=== PATIENT | female | born 1955 | race African-American/Black ===

== ENCOUNTER 2017-05-28 19:59 | Emergency (ER) | payer MEDICARE, SELFPAY ==
[2017-05-28 20:00] VITALS: BP 161/78; PULSE 62; RESP 16; TEMP 36.4; O2SAT 98; BMI 32.8
[2017-05-28 21:07] VITALS: BP 141/69; PULSE 61; RESP 19; O2SAT 98
--- NOTE | 2017-05-28 21:15 | EKG12_ITS ---
Test Reason : HTPERTENSION Blood Pressure : / mmHG Vent. Rate : 060 BPM Atrial Rate : 060 BPM P-R Int : 196 ms QRS Dur : 084 ms QT Int : 436 ms P-R-T Axes : 061 072 064 degrees QTc Int : 436 ms Normal sinus rhythm Normal ECG Confirmed by LAUREN SUÁREZ, PANCHITO ([id number]), order editor MELBA SAMANIEGO ([id number]) on 06/01/2017 2:12:03 PM Referred By: IVET Confirmed By:PANCHITO AGUILAR MD
--- NOTE | 2017-05-28 21:19 | ED.DCSUM_ITS ---
- ER Visit Summary Date of Service: 05/28/17 Chief Complaint: Dental pain and high blood pressure History of Present Illness: The patient is a 61 F with history of hypertension who presents for dental pain and hypertension. Patient states she is currently undergoing medication adjustment for her blood pressure, and is supposed to start alternating valsartan HCTZ with valsartan. She is currently on the combination medication. She states she has been having dizziness ever since she has been on the medications and her doctor is having her change the regimen. Today she noted her blood pressure was high. She also has been having 1 month of dental pain and states that she needs to see a dentist. Today her dental pain was more severe and she also had pain in her right arm. Because of this with the high blood pressure she came in for an evaluation concern for her heart. She took 3 baby aspirin prior to presentation. Patient does state she has been having bilateral ear pain and headache along with the dental pain. She denies chest pain or shortness of breath. She denies history of coronary artery disease, diabetes, high cholesterol or kidney disease. She is a former smoker. Physical Examination: Vital signs: afebrile, hemodynamically stable, no hypoxia on room air General: well nourished, well developed, in no distress Skin: warm, dry, no rash, no pallor HEENT: normocephalic and atraumatic; PERRL, EOMI, moist mucous membranes, edentulous on upper jaw, poor dentition on remaining teeth in the lower jaw, oropharynx is clear, neck is supple without any tenderness, TMs are clear Cardiovascular: regular rate and rhythm without murmurs, no peripheral edema, 2 + pulses all distal extremities Respiratory: No increased work of breathing, lungs are clear to auscultation bilaterally, no rales, rhonchi or wheezing Abdominal: Abdomen is soft, nontender with normoactive bowel sounds, no guarding or rebound, no masses MSK: Moves all extremities, no deformities, normal strength Neuro: Awake and alert, oriented ?4. No facial droop, sensation and motor function intact and symmetric Test Results: Abnormal Lab Results 05/28/17 05/28/17 05/28/17 21:20 21:20 23:24 WBC 5.2 RBC 4.20 Hgb 13.2 Hct 39.7 MCV 94.5 MCH 31.4 MCHC 33.2 RDW 12.3 RDW Differential 42.0 Plt Count 174 MPV 8.8 Immature Gran % (Auto) 0.000 Neut % (Auto) 35.1 L Lymph % (Auto) 56.0 H [place] % (Auto) 6.2 Eos % (Auto) 2.3 Baso % (Auto) 0.4 Absolute Neuts (auto) 1.8 L Absolute Lymphs (auto) 2.91 Total Counted Not Reportable Sodium 140 Potassium 3.9 Chloride 104 Carbon Dioxide 29.0 Anion Gap 7 BUN 14 Creatinine 0.84 Estim Creat Clear Calc 82.19 Est GFR (MDRD) Af Amer 89 Est GFR (MDRD) Non-Af 73 BUN/Creatinine Ratio 16.6 Glucose 93 Calcium 8.7 Troponin I 0.02 0.03 Emergency Department Course and Treatment: Discussed blood pressure with patient and that she is doing the right thing in gradually making adjustments with her primary care doctor. Her blood pressure is currently not concerning for hypertensive urgency. Her other complaint of dental pain which worsened today coupled with the right arm pain is concerning for possible atypical chest pain in a female. Thus a chest pain workup was performed. Patient already took aspirin at home. EKG showed sinus rhythm without ischemia or ectopy, unchanged from old 1. Troponin negative. Labs were unremarkable. Patient has a LANA score of 1 and a heart score of 2, and thus an EKG and troponin were repeated and were both unchanged. Because patient has been having the dental pain for several weeks and her pain today is most likely due to her ongoing issues rather than atypical angina from a cardiac issue, patient will be discharged home and no further cardiac workup will be performed at this time. Patient felt much better on evaluation and was given a list of dental clinics in the area. She will also follow-up with her primary care doctor regarding her ongoing hypertension control. Patient was given a prescription for naproxen for further treatment of her dental pain. Patient was discharged home and will return if any further concerns. Treatment Plan: [] Disposition: [] Impression: Established hypertension, odontalgia This note was generated with [employer] software. It may contain incorrect words, spelling, and punctuation that were not noted in review of the chart prior to signing ED Disposition - Plan for ED Patient: Disposition: Home or Assisted Living Chief Complaint: Hypertension Instructions: ED Tooth Pain, ED HTN Established Prescriptions: Naproxen [Naprosyn] 500 mg PO BID PRN #20 tab Referrals: Alaina Tariq MD [Primary Care Provider] - 3-5 Days if not improving Additional Instructions: Please follow-up with 1 of the dental clinics on the paper provided for further evaluation of your teeth. You may use the naproxen for dental pain in the meantime. Please continue your blood pressure medication as prescribed by your primary care doctor. Blood pressure can go up and down during the day, and this is normal. If you have any further concerns about your blood pressure, please see your doctor. You develop any severe chest pain, shortness of breath, lightheadedness or dizziness, or any other concerning symptoms or worsening condition, please come back to the emergency department for another evaluation.
--- NOTE | 2017-05-28 21:20 | RAD_ITS ---
STUDY: X-RAY CHEST REASON FOR EXAM: Female, 61 years old. Chest pressure and hypertension. TECHNIQUE: Single AP portable view of the chest. COMPARISON: 04/30/2017. FINDINGS: The lungs are clear and expanded. There is no demonstrated pleural abnormality. Normal size heart. Normal mediastinum and mary. Normal visualized pulmonary arteries. Normal visualized aortic arch and descending thoracic aorta. Normal visualized thoracic spine. Normal visualized ribs, clavicles, and shoulders. There is no demonstrated abnormality of the visualized soft tissue structures of the upper abdomen. RAD/Chest 1 View (Portable) IMPRESSION: Normal x-ray examination of the chest. Electronically Signed: Kwan Barrios MD at 22:17 EST , Service support ,
[2017-05-28 21:38] LABS: Absolute Lymphocyte Count 2.91 X10^3/ul (0.83-4.51); Absolute Neutrophil Count 1.8 X10^3/uL (2.0-7.7); Basophil# 0.02 X10^3/uL; Basophil% 0.4 % (0-1); Eosinophil# 0.12 X10^3/uL; Eosinophils% 2.3 % (0-5); Hematocrit 39.7 % (37-47); Hemoglobin 13.2 g/dl (12.0-15.0); Lymphocyte # 2.91 X10^3/ul (4.0); Mean Corp Hgb Conc 33.2 g/gl (32-36); Mean Corpuscular Hgb 31.4 pg (27.0-32.0); Mean Corpuscular Volume 94.5 fL (81-99); Mean Platelet Vol. 8.8 fl (6.2-12.0); Monocyte# 0.32 X10^3/uL; Monocyte% 6.2 % (0-10); Neutrophil # 1.83 X10^3/uL (2.7-7.7); Neutrophil % 35.1 % (47-70); Platelet Count 174 K/mm3 (150-450); RBC Distribution Width CV 12.3 % (11.6-14.6); White Blood Count 5.2 K/mm3 (4.4-11.0)
[2017-05-28 21:39] LABS: POSITIVE COUNT NO; POSITIVE DIFFERENTIAL NO; POSITIVE MORPHOLOGY NO
[2017-05-28 21:41] VITALS: O2SAT 99
[2017-05-28 21:49] LABS: Anion Gap 7 (5-15); BUN 14 mg/dL (7-18); BUN/Creat Ratio 16.6 RATIO (10-20); Calcium,Total 8.7 mg/dL (8.5-10.1); Chloride 104 mmol/L (98-107); Creatinine, Serum 0.84 mg/dL (0.55-1.02); EST Glomerular Filtration Rate 73 mL/min (>60); Est Glom Filt Rate - Afr Amer 89 mL/min (>60); Estimated Creatinine Clearance 82.19 ml/min; Glucose 93 mg/dL (74-106); Potassium 3.9 mmol/L (3.5-5.1); Sodium Level 140 mmol/L (136-145)
[2017-05-28 23:02] VITALS: BP 149/75; PULSE 50; RESP 16; O2SAT 99
--- NOTE | 2017-05-28 23:15 | EKG12_ITS ---
Test Reason : REPEAT Blood Pressure : / mmHG Vent. Rate : 044 BPM Atrial Rate : 044 BPM P-R Int : 198 ms QRS Dur : 090 ms QT Int : 464 ms P-R-T Axes : 056 068 065 degrees QTc Int : 396 ms Marked sinus bradycardia Abnormal ECG Confirmed by LAUREN SUÁREZ, PANCHITO ([id number]), news video editor MELBA SAMANIEGO ([id number]) on 06/01/2017 2:12:14 PM Referred By: IVET Confirmed By:PANCHITO AGUILAR MD
--- NOTE | 2017-05-28 23:56 | ED.DEP ---
ED Disposition - Plan for ED Patient: Disposition: Home or Assisted Living Chief Complaint: Hypertension Instructions: ED Tooth Pain, ED HTN Established Prescriptions: Naproxen [Naprosyn] 500 mg PO BID PRN #20 tab Referrals: Alaina Tariq MD [Primary Care Provider] - 3-5 Days if not improving Additional Instructions: Please follow-up with 1 of the dental clinics on the paper provided for further evaluation of your teeth. You may use the naproxen for dental pain in the meantime. Please continue your blood pressure medication as prescribed by your primary care doctor. Blood pressure can go up and down during the day, and this is normal. If you have any further concerns about your blood pressure, please see your doctor. You develop any severe chest pain, shortness of breath, lightheadedness or dizziness, or any other concerning symptoms or worsening condition, please come back to the emergency department for another evaluation.
[2017-05-29 00:09] VITALS: BP 139/68; PULSE 83; RESP 18; O2SAT 97
== END 2017-05-29 00:10 | disposition home or self-care (01) ==
PROVIDERS: Emergency Provider Emergency Medicine; Family Provider Internal Medicine; PCP Internal Medicine
DX: I10 Essential (primary) hypertension (principal); K08.89 Other specified disorders of teeth and supporting structures; Z87.891 Personal history of nicotine dependence
CPT/HCPCS: 71045; 80048; 84484; 85025; 93005; 99284; A4216

== ENCOUNTER 2017-09-11 15:21 | Emergency (ER) | payer MEDICARE, SELFPAY ==
[2017-09-11 15:22] VITALS: BP 121/72; PULSE 94; RESP 15; TEMP 36.4; O2SAT 98; BMI 32.8
--- NOTE | 2017-09-11 15:51 | RAD_ITS ---
STUDY: X-RAY LEFT FOOT, SECOND TOE REASON FOR EXAM: Female, 62 years old. Pain. Previous surgery. TECHNIQUE: 3 view(s) of the toe were obtained. COMPARISON: None. FINDINGS: There are no acute fractures or dislocations. There are prominent chronic deformities of the heads of the second third and especially fifth proximal phalanges. There are prominent degenerative changes of the first metatarsophalangeal joint and all of the proximal interphalangeal joints. Normal mineralization. RAD/Toe(s) Min 2 Views IMPRESSION: Degenerative changes. No acute abnormalities. Electronically Signed: Kwan Barrios MD at 16:22 EDT , Service support ,
[2017-09-11] MEDS: Ibuprofen 600 MG Tablet PO (16:05)
--- NOTE | 2017-09-11 16:46 | ED.VISSUMM ---
- ER Visit Summary Date of Service: 09/11/17 Chief Complaint: Left second toe pain History of Present Illness: The patient is a 62 F history of hypertension and depression. She has had prior surgery on her left second toe. Basically states for the last 2 weeks she has had atraumatic left toe pain. She denies any redness or fever. She denies any injury whatsoever. States the pain is constant. Physical Examination: Well-appearing middle-age female. Vital signs are stable afebrile. H EENT exam unremarkable. Lungs clear to auscultation. Heart regular rhythm no murmur. Abdomen soft nontender. She is moving all 4 extremities. Neurovascular intact. The left second toe is deformed and tender to palpation. There is no redness or warmth. There is chronic deformity. There appears to be arthritic changes. The left foot is neurovascularly intact with palpable DP pulse, capillary refill and warm to touch. Normal sensation. Skin is closed and in good shape. Test Results: X-ray of the left second toe shows significant degenerative joint disease primarily of the proximal interphalangeal joint. Consistent with a history and physical for arthritic pain. Emergency Department Course and Treatment: Was given Motrin here for pain. Treatment Plan: Ice and elevate. Motrin for pain. Follow-up with Dr. Addison Wright of podiatry. Disposition: dc Impression: Left second toe pain secondary to arthritis This note was generated with [employer] dictation software. It may contain incorrect words, spelling, and punctuation that were not noted in review of the chart prior to signing ED Disposition - Plan for ED Patient: Chief Complaint: Lower Extremity Injury Referrals: Alaina Tariq MD [Primary Care Provider] -
--- NOTE | 2017-09-11 16:49 | ED.DCSUM_ITS ---
- ER Visit Summary Date of Service: 09/11/17 Chief Complaint: Left second toe pain History of Present Illness: The patient is a 62 F history of hypertension and depression. She has had prior surgery on her left second toe. Basically states for the last 2 weeks she has had atraumatic left toe pain. She denies any redness or fever. She denies any injury whatsoever. States the pain is constant. Physical Examination: Well-appearing middle-age female. Vital signs are stable afebrile. H EENT exam unremarkable. Lungs clear to auscultation. Heart regular rhythm no murmur. Abdomen soft nontender. She is moving all 4 extremities. Neurovascular intact. The left second toe is deformed and tender to palpation. There is no redness or warmth. There is chronic deformity. There appears to be arthritic changes. The left foot is neurovascularly intact with palpable DP pulse, capillary refill and warm to touch. Normal sensation. Skin is closed and in good shape. Test Results: X-ray of the left second toe shows significant degenerative joint disease primarily of the proximal interphalangeal joint. Consistent with a history and physical for arthritic pain. Emergency Department Course and Treatment: Was given Motrin here for pain. Treatment Plan: Ice and elevate. Motrin for pain. Follow-up with Dr. Addison Wright of podiatry. Disposition: dc Impression: Left second toe pain secondary to arthritis This note was generated with [employer] dictation software. It may contain incorrect words, spelling, and punctuation that were not noted in review of the chart prior to signing ED Disposition - Plan for ED Patient: Chief Complaint: Lower Extremity Injury Referrals: Alaina aTriq MD [Primary Care Provider] -
--- NOTE | 2017-09-11 16:49 | ED.DEP ---
ED Disposition - Plan for ED Patient: Disposition: Home or Assisted Living Chief Complaint: Lower Extremity Injury Instructions: ED Degenerative Joint Disease Referrals: Alaina Tariq MD [Primary Care Provider] - As Needed Ronny Wright DPM [STAFF PHYSICIAN] - As soon as possible Additional Instructions: Ice to left second toe. Motrin for pain and inflammation. Pain secondary to chronic degenerative arthritis of your left second toe.
== END 2017-09-11 16:56 | disposition home or self-care (01) ==
PROVIDERS: Emergency Provider Emergency Medicine; Family Provider Internal Medicine; PCP Internal Medicine
DX: M25.572 Pain in left ankle and joints of left foot (principal); M19.072 Primary osteoarthritis, left ankle and foot; I10 Essential (primary) hypertension; F32.9 Major depressive disorder, single episode, unspecified; Z90.89 Acquired absence of other organs; Z79.899 Other long term (current) drug therapy
CPT/HCPCS: 73660; 99283

== ENCOUNTER → 2017-12-22 09:29 | Outpatient (CLI) | payer MEDICARE, SELFPAY ==
--- NOTE | 2017-12-22 09:32 | US_ITS ---
STUDY: ABDOMINAL ULTRASOUND - RIGHT UPPER QUADRANT REASON FOR VISIT: Female, 62 years old. Right upper quadrant pain with nausea and vomiting. TECHNIQUE: Ultrasound evaluation of the right upper quadrant was performed with real-time and static randle-scale imaging. TECHNICAL QUALITY: Adequate. COMPARISON: None. FINDINGS: Liver: The liver measures 14.8 cm. There is increased echogenicity consistent with fatty infiltration. The bile ducts are within normal limits. There is hepatic color flow. The direction of portal flow is hepatopetal. There is no demonstrated mass lesion. Gallbladder: Normal distended gallbladder. The gallbladder wall measures 2.0 mm. There is a negative sonographic Wilson's sign. There is no pericholecystic fluid. There are no gallstones. Common Bile Duct (C.B.D.): The common bile duct is slightly dilated and measures 7.3 mm. Low-level echoes are seen within the distal portion of the common bile duct. Sludge or choledocholithiasis should be ruled out. Pancreas: Normal size of the head, body and tail of the pancreas. There is normal echogenicity of the pancreas. There is no demonstrated pancreatic mass or cyst. Right Kidney: Normal size of the right kidney. The right kidney measures 12.2 cm x 4.6 cm x 4.8 cm. Normal renal cortex. The right cortex measures 1.3 cm. There is no demonstrated renal mass or cyst. There is no right hydronephrosis. US/Abdomen Limited IMPRESSION: Fatty infiltration of the liver. Low level echoes are seen within the common bile duct as described. Sludge or choledocholithiasis should be ruled out. Electronically Signed: Gal Aparicio MD at 12:48 EDT Tel [phone], Service support ,
== END ==
LOC: US 09:30
PROVIDERS: Family Provider Internal Medicine; PCP Internal Medicine; Visit Provider Internal Medicine Gastroenterology
DX: R11.0 Nausea (principal); R10.9 Unspecified abdominal pain
CPT/HCPCS: 76705

== ENCOUNTER → 2017-12-27 14:42 | Outpatient (CLI) | payer MEDICARE, SELFPAY ==
[2017-12-27 19:07] LABS: AST(SGOT) 19 U/L (15-37); Alanine Aminotransfer ALT/SGPT 27 U/L (13-56); Albumin, Serum 3.7 g/dL (3.2-5.0); Alkaline Phosphatase 74 U/L (45-117); Globulin 3.9 g/dL (2.2-4.2); Protein, Total 7.6 g/dL (6.4-8.2)
== END ==
PROVIDERS: Family Provider Internal Medicine; PCP Internal Medicine; Visit Provider Internal Medicine Gastroenterology
DX: R10.9 Unspecified abdominal pain (principal); R11.0 Nausea
CPT/HCPCS: 36415; 80076

== ENCOUNTER 2018-05-12 21:58 | Emergency (ER) | payer MEDICARE, SELFPAY ==
[2018-05-02 10:57] VITALS: BMI 32.8
[2018-05-12 21:58] VITALS: BP 165/91; PULSE 67; RESP 16; TEMP 37; O2SAT 99; BMI 34.4
[2018-05-12] MEDS: oxyCODONE 5 MG Tablet PO (22:23)
--- NOTE | 2018-05-12 22:50 | RAD_ITS ---
STUDY: X-RAY - RIGHT HIP REASON FOR EXAM: Female, 62 years old. Fall TECHNIQUE: 3 views of the hip. COMPARISON: None. FINDINGS: Normal femoral head, neck, intertrochanteric region and visualized proximal femur. Normal acetabulum. Normal hip joint. Normal visualized superior and inferior pubic rami and ischial tuberosities. RAD/HIP, UNI W/ Pelvis 2-3 Views IMPRESSION: Normal x-ray examination of the hip. Electronically Signed: Brian Moore DO at 23:33 EST Tel [phone], Service support ,
--- NOTE | 2018-05-12 23:27 | ED.DCSUM_ITS ---
- ER Visit Summary Date of Service: 05/12/18 Chief Complaint: right hip injury History of Present Illness: The patient is a 62 F mechanical fall 4 PM while at the store. She did bump her head, no LOC mild headache. No anticoagulation medicines. Pain is can progress throughout the evening ibuprofen taken at 430. No history of gastric ulcers or kidney injury. No neck or back pain. No chest pain shortness of breath no nausea or vomiting. Patient ambulating throughout evening, drove herself here. Physical Examination: General: Alert and oriented ?3, no acute distress HEENT: Normocephalic, atraumatic. No hemotympanum. Moist mucosa membranes. Neck: supple, nontender. Cardiovascular: Regular rate and rhythm, no murmurs Respiratory: Normal breath sounds, symmetric, no distress Abdomen: Soft, nontender, nondistended Extremities: Right lower extremity: Negative all was tender palpation lateral mid hip. No deformities. No knee pain. Skin intact. No ecchymosis. Neurovascular intact. Neuro: no focal neurological deficits. Cranial nerves II to XII intact. Test Results: Right hip x-ray: No acute process. Emergency Department Course and Treatment: Head injury mild headache, no anticoagulation medicines. No focal deficits. Hip x-ray obtained reviewed by myself shows no acute process she is ambulated bedside by myself minimal difficulty there is no pain in the groin or hip pain is all lateral mid hip. Discussed contusion. She was treated Percocet. She did have a ride home. Short prescription given for symptom control discussed continue Motrin. Follow- up with your PCP. Signs and symptoms discussed return. All questions were answered.OARRS report checked. Treatment Plan: [] Disposition: Discharge Impression: 1. Right hip contusion 2. Concussion without loss of consciousness This note was generated with [employer] dictation software. It may contain incorrect words, spelling, and punctuation that were not noted in review of the chart prior to signing ED Disposition - Plan for ED Patient: Disposition: Home or Assisted Living Diagnosis: Contusion of right hip and thigh, Concussion without loss of consciousness, initial encounter Instructions: ED Contusion Hip, ED Concussion Prescriptions: Oxycodone HCl/Acetaminophen [Percocet 5/325] 1 tablet PO Q6H PRN PRN 3 Days #12 tablet PRN Reason: Pain Referrals: Alania Tariq MD [Primary Care Provider] - 3-5 Days if not improving
[2018-05-12 23:34] VITALS: RESP 14
== END 2018-05-12 23:37 | disposition home or self-care (01) ==
PROVIDERS: Emergency Provider Emergency Medicine; Family Provider Internal Medicine; PCP Internal Medicine
DX: S70.01XA Contusion of right hip, initial encounter (principal); S06.0X0A Concussion without loss of consciousness, initial encounter; W19.XXXA Unspecified fall, initial encounter; Y93.89 Activity, other specified; Y92.512 Supermarket, store or market as the place of occurrence of the external cause; Y99.9 Unspecified external cause status; I10 Essential (primary) hypertension
CPT/HCPCS: 73502; 99283

== ENCOUNTER → 2018-05-30 06:42 | Outpatient (CLI) | payer MEDICARE, SELFPAY ==
[2018-05-02 10:57] VITALS: BMI 32.8
[2018-05-12 21:58] VITALS: BMI 34.4
--- NOTE | 2018-05-30 06:44 | ECHOD_ITS ---
Reason For Study: DYSPNEA/SOB Procedure This was a 2D Doppler, Color Flow transthoracic echocardiogram. The exam was of adequate technical quality. Exam performed in department. Left Ventricle Normal LV size. Left ventricular systolic function is normal. The estimated ejection fraction is 60 %. No evidence for diastolic dysfunction. No regional wall motion abnormalities noted. Right Ventricle Normal RV size. Normal systolic function. Atria The left atrium is mildly enlarged. Normal right atrium. No doppler evidence for ASD. Mitral Valve There is no mitral annular calcification. Mild diffuse mitral valve thickening. Mild (1+) mitral valve insufficiency. Tricuspid Valve Normal tricuspid valve. Mild tricuspid valve insufficiency. Right ventricular systolic pressure estimated to be 30 mmHg. Aortic Valve Trisinus/trileaflet aortic valve. Normal aortic valve. Pulmonic Valve The pulmonic valve is not well visualized. Mild (1+) pulmonic valve insufficiency. Great Vessels Normal sized aortic root. Pericardium/Pleural No pericardial effusion. MMode/2D Measurements & Calculations LVIDd: 4.5 cm IVSd: 1.0 cm Ao root diam: 3.0 cm LVIDs: 2.8 cm LVPWd: 1.00 cm RVDd: 3.4 cm FS: 36.7 % LAV(MOD-bp): 56.2 ml LVAd ap4: 34.8 cm2 SV(MOD-sp4): 66.5 ml LAV(MOD-bp) Indexed: 24.4 ml/m2 EDV(MOD-sp4): 119.1 ml LAV(MOD-sp2): 65.2 ml EDV(sp4-el): 124.4 ml LAV(MOD-sp4): 48.6 ml LVAs ap4: 20.6 cm2 ESV(MOD-sp4): 52.7 ml ESV(sp4-el): 52.4 ml EF(MOD-sp4): 55.8 % EF(sp4-el): 57.9 % SV(sp4-el): 72.0 ml LA A4 area: 19.1 cm2 LA dimension(2D): 3.6 cm RA A4 area: 14.9 cm2 Time Measurements MV dec time: 0.19 sec Doppler Measurements & Calculations MV E max brett: 92.1 cm/sec Lat Peak E' Brett: 11.2 cm/sec Med Peak E' Brett: 8.4 cm/sec MV A max brett: 85.8 cm/sec E/E' lat: 8.2 E/E' med: 11.0 MV E/A: 1.1 Ao V2 max: 143.6 cm/sec LV V1 max: 107.6 cm/sec PA V2 max: 91.6 cm/sec Ao max P.2 mmHg LV V1 max P.6 mmHg PI end-d brett: 83.7 cm/sec TR max brett: 258.3 cm/sec TR max P.7 mmHg Interpretation Summary Left ventricular systolic function is normal. The estimated ejection fraction is 60 %. The left atrium is mildly enlarged. Mild diffuse mitral valve thickening. Mild (1+) mitral valve insufficiency. Mild tricuspid valve insufficiency. Mild (1+) pulmonic valve insufficiency. Right ventricular systolic pressure estimated to be 30 mmHg. No evidence for diastolic dysfunction. Ordering Physician: Ryland Noonan/Talon Jimenez Referring Physician: ILYA MONROE Performed By: Kristine You, DIANNE
--- NOTE | 2018-05-30 09:49 | STRESSREP_ITS ---
Stress Test Report Date: May 30, 2018 Procedure: Exercise tolerance test/imaging study Indications: Chest pain Consent: Per the patient Procedure: The patient exercised on a Alex protocol for 6 minutes completing Stage II achieving a peak heart rate of 150 bpm (94 % predicted maximal heart rate) with a peak blood pressure 180/82 mmHg and a peak MET capacity of 7 METs. The baseline ECG demonstrated Sinus bradycardia . The peak exercise ECG demonstrated No obvious ECG changes . There were no cardiac dysrhythmias pretest, during exercise, or recovery. The functional capacity was considered average . There was no complaint of chest discomfort during exercise or recovery. The examination was discontinued secondary to dyspnea and leg discomfort . Impression: 1. Technically adequate (percent predicted maximal heart rate greater than 85%) exercise tolerance test 2. Peak exercise ECG with no obvious ECG changes 3. There were no cardiac dysrhythmias pretest, during exercise, or recovery 4. Nuclear images pending Myocardial perfusion imaging study: Technique: The patient was injected with 14.5 mCi of technetium 99m Cardiolite and subsequently rest SPECT Cardiolite nuclear imaging was obtained in the horizontal long, vertical long, and short axis views. The patient exercised on a Alex protocol for 6 minutes completing Stage II achieving a peak heart rate of 150 bpm (94 % predicted maximal heart rate) with a peak blood pressure 180/82 mmHg and a peak MET capacity of 7 METs. The patient was injected with 44.7 mCi of technetium 99m Cardiolite and subsequently stress SPECT Cardiolite nuclear imaging was obtained in the horizontal long, vertical long, and short axis views. A gated Cardiolite study at peak stress was obtained. Interpretation: Rest and stress SPECT Cardiolite nuclear imaging status post realignment, normalization, and attenuation correction, demonstrates Have RAST the appearance of diminished tracer uptake and portions of the mid to distal anterior and anterior apical segments which status post stress appears to improve/normalize . There is end systolic thickening and brightening. The gated Cardiolite study demonstrates myocardial thickening and inward wall motion. The reported LVEF is 60 %. Impression: 1. Rest and stress SPECT Cardiolite nuclear imaging demonstrate The parents of diminished myocardial perfusion/tracer uptake and portions of the mid to distal anterior and anterior apical segments at rest which appear to improve and/or normalized following stress appearing compatible shifting soft tissue attenuation/artifact with no myocardial perfusion changes considered diagnostic for associated stress induced myocardial ischemia . 2. The gated Cardiolite study reports an LVEF of 60 %. This note was generated with [employer] software. It may contain incorrect words, spelling, and punctuation that were not noted in checking the note before signing.
== END ==
LOC: CVS 06:42
PROVIDERS: Family Provider Internal Medicine; PCP Internal Medicine; Referring Provider Nurse Practitioner Family; Visit Provider Nurse Practitioner Family
DX: R07.9 Chest pain, unspecified (principal); I10 Essential (primary) hypertension; R06.09 Other forms of dyspnea; Z82.49 Family history of ischemic heart disease and other diseases of the circulatory system
CPT/HCPCS: 78452; 93017; 93306; A9500; A4216

== ENCOUNTER → 2018-11-22 12:29 | Outpatient (CLI) | payer MEDICARE, MEDICAID, SELFPAY ==
[2018-11-07 11:35] VITALS: BMI 34.7
--- NOTE | 2018-11-22 12:31 | RAD_ITS ---
STUDY: X-RAY CHEST REASON FOR EXAM: Female, 63 years old. Chest pain TECHNIQUE: PA and lateral views of the chest. COMPARISON: FINDINGS: The lungs are clear and expanded. There is no demonstrated pleural abnormality. Normal size heart. Normal mediastinum and mary. Normal visualized pulmonary arteries. Normal visualized aortic arch and descending thoracic aorta. Normal visualized thoracic spine. Normal visualized ribs, clavicles, and shoulders. There is no demonstrated abnormality of the visualized soft tissue structures of the upper abdomen. RAD/Chest PA and Lateral IMPRESSION: Normal x-ray examination of the chest. Electronically Signed: Pete Goodman MD at 13:15 EDT Tel , Service support ,
== END ==
PROVIDERS: Family Provider Internal Medicine; PCP Internal Medicine; Referring Provider Physician Assistant Medical; Visit Provider Physician Assistant Medical
DX: R06.02 Shortness of breath (principal); R06.00 Dyspnea, unspecified; R06.01 Orthopnea
CPT/HCPCS: 71046

== ENCOUNTER → 2018-11-24 07:42 | Outpatient (CLI) | payer MEDICARE, MEDICAID, SELFPAY ==
[2018-11-07 11:35] VITALS: BMI 34.7
--- NOTE | 2018-11-24 10:35 | PFT_ITS ---
INTRODUCTION: The patient is a 63-year-old -[place] female that presents for pulmonary function studies secondary to a diagnosis of shortness of breath. Respiratory therapy reports good patient effort. Bronchodilators were used during testing. INTERPRETATION: Forced expiration spirometry demonstrates no evidence of a large airways obstructive ventilatory defect. There was no significant response to aerosolized bronchodilators. Spirograms are of good quality and plateau normally. Body plethysmography was performed and reveals a decreased TLC to 4.18 L, 66% of predicted, indicative of a moderate restrictive ventilatory impairment. The remainder of the lung volumes are symmetrically reduced. Diffusing capacity by single breath CO is reduced at 64% of predicted. 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
== END ==
PROVIDERS: Family Provider Internal Medicine; PCP Internal Medicine; Referring Provider Physician Assistant Medical; Visit Provider Physician Assistant Medical
DX: R06.02 Shortness of breath (principal); R06.00 Dyspnea, unspecified; R06.01 Orthopnea
CPT/HCPCS: 94060; 94726; 94729

== ENCOUNTER 2019-01-06 09:45 | Emergency (ER) | payer MEDICARE, MEDICAID, SELFPAY ==
[2018-11-07 11:35] VITALS: BMI 34.7
[2019-01-06] VITALS (7 sets, daily range): BP systolic 152–172; BP diastolic 83–85; PULSE 62–82; RESP 14–21; TEMP 36.7–36.8; O2SAT 92–97; BMI 35.0
--- NOTE | 2019-01-06 10:21 | RAD_ITS ---
STUDY: X-RAY CHEST REASON FOR EXAM: Female, 63 years old. Wheezing. Productive cough for 3 days. TECHNIQUE: PA and lateral views of the chest. COMPARISON: November 22, 2018. FINDINGS: The lungs are clear and expanded. There is no demonstrated pleural abnormality. Normal size heart. Normal mediastinum and mary. Normal visualized pulmonary arteries. Normal visualized aortic arch and descending thoracic aorta. There are diffuse degenerative changes of the visualized thoracic spine. Normal visualized ribs, clavicles, and shoulders. There is no demonstrated abnormality of the visualized soft tissue structures of the upper abdomen. RAD/Chest PA and Lateral IMPRESSION: No acute cardiopulmonary disease or interval change. Electronically Signed: Dejan More DO at 11:47 EDT Tel [phone], Service support ,
--- NOTE | 2019-01-06 10:22 | ED.VIS.GEN ---
History of Present Illness Chief Complaint: Shortness of Breath Informant: Patient Onset: Weeks Narrative: She presents to the ED with nasal congestion, rhinorrhea, cough and shortness of breath that has been intermittent for the last 3 weeks. She states she has been seen at local urgent care multiple times for this. She has been on a course of doxycycline and amoxicillin without relief. She is also been placed on a 5-day prednisone taper and then a 3-day prednisone burst of 40 mg. She states that symptoms are not improving. She feels like her is sick now and is giving her the illness back. She does have a history of asthma since she was a child which is exacerbated with colds. She denies any fever, chills, chest pain. She was also prescribed a nebulizer by the urgent care and did use a treatment this morning. She denies any history of cigarette smoking since 1993. She denies PE risk factors. Past Medical History - Allergies and Home Meds Allergies/Adverse Reactions: Allergies apple Allergy (Verified 01/06/19 09:45) Hives banana Allergy (Verified 01/06/19 09:45) Hives carrot Allergy (Verified 01/06/19 09:45) Hives pineapple Allergy (Verified 01/06/19 09:45) Itching shrimp Allergy (Verified 01/06/19 09:45) Anaphylaxis amoxicillin Adverse Reaction (Verified 01/06/19 09:45) YEAST INFECTION lobster Allergy (Uncoded 01/06/19 09:45) Anaphylaxis Primary Care Physician: Alaina Tariq MD [Primary Care Provider] - Surgical History: appendectomy, - - Tubal ligation, breast biopsy Smoking Status: Former smoker - Family History Maternal Family History: Family History (Last Reviewed 11/07/18 @ 12:04 by ADELAIDA Greenberg) Sister Breast cancer Mother Heart disease Enlarged heart Grandmother Enlarged heart Family History: Reports: - - Mother has an enlarged heart, rheumatoid arthritis and coronary artery disease with a history of four-vessel CABG in the past Paternal Family History: Family History (Last Reviewed 11/07/18 @ 12:04 by ADELAIDA Greenbegr) Sister Breast cancer Mother Heart disease Enlarged heart Grandmother Enlarged heart Family History: Reports: Diabetes - Paternal side of the family has multiple diabetics Review of Systems General: Denies: Chills, Fever, Sweats Eyes: Denies: Visual changes - bilaterally, Diplopia ENT: Reports: Rhinorrhea. Denies: Sore throat - Nasal congestion Cardiovascular: Denies: Chest pain, Palpitations Respiratory: Reports: Dyspnea, Cough, Sputum. Denies: Dyspnea on exertion Gastrointestinal: Denies: Abdominal pain, Nausea, Vomiting, Diarrhea, Melena, Hematochezia Genitourinary: Denies: Dysuria, Hematuria, Frequency Musculoskeletal: Denies: Back pain, Extremity Pain Skin: Denies: Rash, Wounds Neurological: Denies: Headache, Weakness, Numbness Physical Exam Vital Signs/Narrative: Vital Signs Temp Pulse Resp BP Pulse Ox 01/06/19 09:46 98.2 F 82 17 152/85 H 95 01/06/19 09:45 95 General: Well nourished, Well developed, No Acute Distress Head: Normocephalic, Atraumatic Eyes: Perrl, EOMI ENT: Moist mucous membranes, TM's clear, Nasal congestion Neck: Supple, Nontender Cardiovascular: Regular rate, Regular rhythm, No murmurs Respiratory: No distress, Chest nontender, Wheezing Abdomen: Soft, Nontender, Nondistended, Normal bowel sounds Back: Nontender, Normal Inspection Extremities: Nontender, No edema Skin: Normal color, No rash Neurological: Alert, Oriented x3, Cranial nerves II-XII grossly intact, Normal Strength, Normal Sensation Psychological: Normal affect, Normal Mood Diagnostic/Tx/Re-eval - Medical Decision Making Patient presents to the ED with nasal congestion, rhinorrhea, cough, and shortness of breath that is been intermittent for the last 3 weeks. She appears well and nontoxic. She does sound fairly congested and has significant wheezing to auscultation of all lung addison. She is not tachycardic. She is not hypoxic. She is afebrile. She is in no acute distress. She was given a DuoNeb and albuterol nebulized breathing treatment as well as 60 mg of prednisone p.o. After reviewing her chart, it does appear that last month she had pulmonary function testing done that indicated moderate restrictive pattern ventilatory impairment with symmetric reduction in diffusing capacity. Chest x-ray shows no acute abnormalities. Given the length the patient's symptoms, I did discuss the patient's case with textile science technician, Dr. Martin who recommended placing the patient on a longer prednisone taper and inhaled corticosteroid, such as budesonide. Patient does have a nebulizing machine at home and will continue albuterol nebulized treatments. She will follow-up in their office. She was educated on signs/symptoms to return to the ED. She is provided discharge instructions and agreeable to plan. Impression: Viral bronchitis. Disposition: Home stable ED Disposition - Plan for ED Patient: Disposition: Home or Assisted Living Diagnosis: Bronchitis Instructions: BRONCHITIS, No Antibiotic (Adult) Prescriptions: Prednisone 10 mg PO UD #33 tab Prescription Printed Budesonide Inhaler 90 mcg [Pulmicort Flexhaler 90 mcg] 1 puff INHALATION BID #1 inhaler Prescription Printed Referrals: Alaina Tariq MD [Primary Care Provider] - Johan Martin DO [STAFF PHYSICIAN] -
[2019-01-06] MEDS: predniSONE 20 MG Tablet 60 MG PO (10:27)
[2019-01-06] MEDS: Ipratropium/Albuterol Sulfate 3 ML AMPUL.NEB INHALATION (10:32)
[2019-01-06] MEDS: Albuterol 2.5 MG/3 ML VIAL.NEB. INHALATION (11:39)
== END 2019-01-06 14:11 | disposition home or self-care (01) ==
PROVIDERS: Emergency Provider Physician Assistant; Family Provider Internal Medicine; PCP Internal Medicine
DX: J20.8 Acute bronchitis due to other specified organisms (principal); J45.909 Unspecified asthma, uncomplicated; Z82.49 Family history of ischemic heart disease and other diseases of the circulatory system; Z87.891 Personal history of nicotine dependence; Z88.0 Allergy status to penicillin
CPT/HCPCS: 71046; 94640; 99284; A4216

== ENCOUNTER → 2019-02-02 13:31 | Outpatient (CLI) | payer MEDICARE, MEDICAID, SELFPAY ==
[2019-02-01 14:41] VITALS: BMI 35.4
--- NOTE | 2019-02-02 13:40 | RAD_ITS ---
STUDY: X-RAY CHEST REASON FOR EXAM: Female, 63 years old. Resent bronchitis. TECHNIQUE: PA and lateral views of the chest. COMPARISON: January 06, 2019 FINDINGS: There is no new focal consolidation. There is no significant interval change since the prior examination. Normal size heart. Normal mediastinum and mary. Normal visualized pulmonary arteries. Normal visualized aortic arch and descending thoracic aorta. Normal visualized thoracic spine. Normal visualized ribs, clavicles, and shoulders. There is no demonstrated abnormality of the visualized soft tissue structures of the upper abdomen. RAD/Chest PA and Lateral IMPRESSION: No acute cardiopulmonary process. Electronically Signed: Fransisca Pete MD at 23:19 EDT Tel , Service support ,
== END ==
PROVIDERS: Family Provider Internal Medicine; PCP Internal Medicine; Referring Provider Nurse Practitioner Acute Care; Visit Provider Nurse Practitioner Acute Care
DX: R06.2 Wheezing (principal)
CPT/HCPCS: 71046; 87633

== ENCOUNTER → 2019-02-07 16:00 | Outpatient (CLI) | payer MEDICARE, MEDICAID, SELFPAY ==
[2019-02-07 08:57] VITALS: BMI 35.4
== END ==
PROVIDERS: Family Provider Internal Medicine; PCP Internal Medicine; Referring Provider Nurse Practitioner Acute Care; Visit Provider Nurse Practitioner Acute Care
DX: J45.909 Unspecified asthma, uncomplicated (principal)
CPT/HCPCS: 87070; 87205

== ENCOUNTER 2019-04-02 12:11 | Emergency (ER) | payer MEDICARE, SELFPAY ==
[2019-03-07 08:43] VITALS: BMI 35.6
[2019-04-02 12:13] VITALS: BP 171/82; PULSE 83; RESP 20; TEMP 36.4; O2SAT 97; BMI 35.5
--- NOTE | 2019-04-02 12:23 | EKG12_ITS ---
Test Reason : CP Blood Pressure : / mmHG Vent. Rate : 073 BPM Atrial Rate : 073 BPM P-R Int : 172 ms QRS Dur : 082 ms QT Int : 382 ms P-R-T Axes : 054 068 061 degrees QTc Int : 420 ms Normal sinus rhythm Nonspecific T wave abnormality Abnormal ECG Confirmed by RAI SUÁREZ, LENKA ([id number]), manager editorial MELBA SAMANIEGO ([id number]) on 04/05/2019 9:24:29 AM Referred By: Confirmed By:LENKA ATWOOD MD
--- NOTE | 2019-04-02 12:30 | RAD_ITS ---
STUDY: X-RAY CHEST REASON FOR EXAM: Female, 63 years old. Chest pain. TECHNIQUE: Single frontal view of the chest. COMPARISON: February 02, 2019 FINDINGS: Stable mild hyperexpansion. There is no demonstrated pleural abnormality. Borderline cardiomegaly unchanged. Normal mediastinum and mary. Normal visualized pulmonary arteries. Normal visualized aortic arch and descending thoracic aorta. Normal visualized thoracic spine. Normal visualized ribs, clavicles, and shoulders. There is no demonstrated abnormality of the visualized soft tissue structures of the upper abdomen. RAD/Chest 1 View (Portable) IMPRESSION: Stable chest with no acute finding. Electronically Signed: Jeffrey Martinez MD at 12:44 EST , Service support ,
[2019-04-02 12:31] LABS: Absolute Lymphocyte Count 2.69 X10^3/uL (0.83-4.51); Absolute Neutrophil Count 1.6 X10^3/uL (2.0-7.7); Basophil# 0.04 X10^3/uL; Basophil% 0.8 % (0-1); Eosinophil# 0.28 X10^3/uL; Eosinophils% 5.6 % (0-5); Hematocrit 40.6 % (37-47); Hemoglobin 13.8 g/dL (12.0-15.0); Lymphocyte # 2.69 X10^3/ul (4.0); Lymphocyte % 54.2 % (19-41); Mean Corpuscular Hgb 31.9 pg (27.0-32.0); Mean Corpuscular Volume 93.8 fL (81-99); Mean Platelet Vol. 8.7 fl (6.2-12.0); Monocyte# 0.34 X10^3/uL; Monocyte% 6.9 % (0-10); NRBC Flagged by Analyzer 0 % (0-5); Neutrophil # 1.59 X10^3/uL (2.7-7.7); Neutrophil % 32.1 % (47-70); Platelet Count 166 K/mm3 (150-450); RBC Distribution Width CV 11.6 % (11.6-14.6); RBC Distribution Width SD 39.4 fl (35.1-43.9); Red Blood Count 4.33 M/mm3 (4.2-5.4)
--- NOTE | 2019-04-02 12:34 | ED.DCSUM_ITS ---
- ER Visit Summary Date of Service: 04/02/19 Chief Complaint: Chest discomfort History of Present Illness: The patient is a 63 F history of hypertension and heart murmur. No history of cardiac disease. Prior stress test negative and has never had a heart cath. Denies any recent exertional dyspnea or exertional chest pain. Patient states she is eating breakfast this morning and had to 3- minute history of midsternal chest discomfort. Associated dyspnea. It resolved. He was at rest. Currently pain-free and symptom-free. Denies any leg pain or swelling. No recent travel or surgery. No hemoptysis. Is not diabetic. She does not smoke. Physical Examination: Alert female no acute distress vital signs stable afebrile. Pulse ox 97% room air no signs of hypoxia. HEENT exam unremarkable. Neck nontender no lymphadenopathy. Lungs clear to auscultation bilaterally. Heart regular rate and rhythm no appreciated murmur at this time. Rate about 75. Chest wall nontender. Abdomen soft nontender normal bowel sounds no peritoneal signs. All 4 extremities. Neurovascular intact. Calves are nontender without edema or cords. Normal range of motion both upper and lower extremities. Equal symmetrical palpable radial pulses. Back nontender. Neurologically she is awake and alert with no focal motor deficits. Test Results: EKG shows sinus rhythm rate of 73 with no acute signs of OH or ischemia. Portable chest x-ray read both by myself and the radiologist shows no acute abnormality. CBC normal. White count of 5. Hemoglobin 13. Chemistries normal normal creatinine gap. Troponin normal. Emergency Department Course and Treatment: Patient has a normal exam. She does not have reproducible chest pain. She has steps at home and said she takes those daily and knows have not been a problem. She WILL undergo cardiac work- up. Treatment Plan: Repeat exam the patient is doing well at 1511. She has had no symptoms while in the ER. She is currently pain-free symptom-free. She has had no recent exertional chest pain or exertional dyspnea. She and her went over her test results. They are comfortable being discharged home with outpatient follow-up and return if worse. Disposition: discharge Impression: Acute chest pain uncertain etiology This note was generated with [employer] software. It may contain incorrect words, spelling, and punctuation that were not noted in review of the chart prior to signing ED Disposition - Plan for ED Patient: Referrals: Alaina Tariq MD [Primary Care Provider] -
[2019-04-02] MEDS: Aspirin 81 MG TAB.CHEW 324 MG PO (12:48)
[2019-04-02 13:02] LABS: Anion Gap 4 (5-15); BUN 12 mg/dL (7-18); BUN/Creat Ratio 12.9 RATIO (10-20); Calcium,Total 8.5 mg/dL (8.5-10.1); Chloride 103 mmol/L (98-107); Creatinine, Serum 0.93 mg/dL (0.55-1.02); EST Glomerular Filtration Rate 65 mL/min (>60); Est Glom Filt Rate - Afr Amer 78 mL/min (>60); Glucose 119 mg/dL (74-106); Potassium 3.6 mmol/L (3.5-5.1); Sodium Level 138 mmol/L (136-145)
--- NOTE | 2019-04-02 15:13 | ED.DEP ---
ED Disposition - Plan for ED Patient: Disposition: Home or Assisted Living Instructions: CHEST PAIN, Uncertain Cause Referrals: Alaina Tariq MD [Primary Care Provider] - As soon as possible Additional Instructions: Return to the ER if you are feeling worse or develop worsening chest pain or shortness of breath. Your tests today were normal we could not find a specific cause of your chest pain that resolved. Follow-up with your doctor.
[2019-04-02 15:24] VITALS: BP 139/84; PULSE 71; RESP 15; O2SAT 98
== END 2019-04-02 15:25 | disposition home or self-care (01) ==
PROVIDERS: Emergency Provider Emergency Medicine; Family Provider Internal Medicine; PCP Internal Medicine
DX: R07.89 Other chest pain (principal); I10 Essential (primary) hypertension
CPT/HCPCS: 71045; 80048; 84484; 85025; 93005; 99285; A4216

== ENCOUNTER → 2019-04-26 07:35 | Outpatient (CLI) | payer MEDICARE, SELFPAY ==
[2019-04-02 12:13] VITALS: BMI 35.5
--- NOTE | 2019-04-26 07:39 | US_ITS ---
STUDY: ULTRASOUND TRANSVAGINAL CLINICAL: Female, 63 years old. PMB Post-Menopausal Bleeding US - Pelvic, Tvag TECHNIQUE: Transvaginal COMPARISON: Previous study of 06/30/2011 FINDINGS: Normal uterine size measuring 7.5 x 4.8 x 4.0 cm in maximal craniocaudal dimension. There are no myometrial masses. Normal endometrial thickness measuring 4 mm. There is a small amount of fluid in the endometrial canal. There is a hyperechoic endometrial nodule measuring 6 x 6 x 4 mm. Normal uterine cervix. Normal right ovary, measuring 1.2 x 1.0 x 0.8 cm. Normal left ovary, measuring 1.3 x 1.1 x 0.9 cm. There is no free fluid in the pelvis. Polycystic ovary disease: No. US/Transvaginal Non- IMPRESSION: Small amount of fluid in the endometrial canal. There is a 6 x 6 x 4 mm echogenic nodule within the endometrial canal, which is of unknown significance. This was not seen on the previous study. Electronically Signed: Jorge Yuan MD at 17:29 EST , Service support ,
== END ==
LOC: OPUS 07:36
PROVIDERS: Family Provider Internal Medicine; PCP Internal Medicine; Referring Provider Urology; Visit Provider Urology
DX: N95.0 Postmenopausal bleeding (principal)
CPT/HCPCS: 76830

== ENCOUNTER 2019-06-12 11:04 | Day surgery (SDC) | payer MEDICARE, SELFPAY ==
[2019-05-31 12:25] VITALS: BMI 35.6
[2019-06-12] VITALS (8 sets, daily range): BP systolic 104–139; BP diastolic 64–94; PULSE 51–62; RESP 15–16; TEMP 36.1–36.7; O2SAT 93–98; BMI 34.7
--- NOTE | 2019-06-12 12:12 | PCM.OPRPT ---
Problem List (1) Acquired stenosis of urethral meatus Status: Acute (2) Urinary urgency Status: Acute (3) Dysuria Status: Acute Report of Operation Date of Procedure: 06/12/19 Pre-Operative Diagnosis: urethral stenosis, urinary urgency, dysuria Post-Operative Diagnosis: same Surgery/Procedure Performed:: urethral dilation, cystoscopy Type of Anesthesia:: General Specimen's removed: none Estimated Blood Loss (mL): 2cc Description of Procedure: The patient is a 63-year-old female having difficulty with urinary urgency, and dysuria. I attempted to do a cystoscopy in the office, and the urethral meatus was found to be stenotic and unable to accommodate the scope. Due to patient discomfort we were not able to dilate the urethra in the office. Informed consent was obtained to take the patient to the operating room for urethral dilation and cystoscopy under anesthesia. She was taken to the operating room placed on the operating room table. Anesthesia monitored the head, neck, airway, IV access and vital signs throughout the case. Once anesthesia was appropriately administered, the patient was placed into dorsal lithotomy position was prepped and draped in usual sterile fashion. The urethra was dilated from 14 Salvadorean to 32 Salvadorean using urethral sounds. At this time the urethra was easily entered with this cystoscope. There was no urethral abnormality otherwise identified. The bladder mucosa was visualized in its entirety. There were no masses, lesions, areas of erythema or foreign body detected. There is no trabeculation and no diverticula identified. The ureteral orifices were located on the area of the trigone in correct anatomic position. The patient's bladder was emptied and the case was terminated. The patient was awakened and taken to the recovery room in good condition. There were no complications during this procedure. Grafts/Implants Used: none - Complications none - Admit VTE Documentation VTE Present on Admission: Yes VTE Mechan Device Prophylaxis: SCD's VTE Pharm Prophylaxis ordered?: No Reason prophylaxis not ordered:: Treatment Not Indicated
--- NOTE | 2019-06-12 12:14 | DCINST_ITS ---
Discharge Diet: No Restrictions Discharge Activity: May not drive while taking narcotic pain medications., May Shower May resume sexual activity in: 2 weeks Call your doctor if you observe: Fever of 101 or Higher, Inability to urinate, Inability to have a bowel movement, Calf discomfort, Uncontrolled pain Allergies/Adverse Reactions: Allergies apple Allergy (Verified 06/12/19 12:06) Hives banana Allergy (Verified 06/12/19 12:06) Hives carrot Allergy (Verified 06/12/19 12:06) Hives pineapple Allergy (Verified 06/12/19 12:06) Itching shrimp Allergy (Verified 06/12/19 12:06) Anaphylaxis amoxicillin Adverse Reaction (Verified 06/12/19 12:06) YEAST INFECTION lobster Allergy (Uncoded 06/12/19 12:06) Anaphylaxis Medications to take at Discharge hydrochlorothiazide 12.5 mg capsule 12.5 mg PO DAILY 30 Days #30 cap 05/02/18 losartan 25 mg tablet 25 mg PO DAILY 30 Days #30 tab 05/02/18 citalopram 40 mg tablet 40 mg PO DAILY 11/07/18 gabapentin 600 mg tablet 600 mg PO QHS PRN 11/07/18 Budesonide Inhaler 90 mcg [Pulmicort Flexhaler 90 mcg] 1 puff INHALATION BID #1 inhaler 01/06/19 Gabapentin [Neurontin] 100 mg PO DAILY PRN 01/06/19 albuterol sulfate 90 mcg/actuation aerosol inhaler 2 puff INHALATION Q4H PRN #1 device 01/24/19 albuterol sulfate 2.5 mg INHALATION Q4H PRN #180 ml 02/07/19 azelastine 0.15 % (205.5 mcg) nasal spray 1 spray INTRANASAL BID #30 ml 03/07/19 fluticasone propionate 50 mcg/actuation nasal spray,suspension 1 spray INTRANASAL BID #16 g 03/07/19 montelukast 10 mg tablet 10 mg PO QPM #30 tab 03/07/19 Cholecalciferol (Vitamin D3) [Vitamin D3] 2,000 unit PO DAILY 04/02/19 Primary Care Physician: Alaina Tariq MD [Primary Care Provider] - Test Results: Test results from this visit will be discussed in further detail at your follow- up appointment, if applicable. Please Follow Up With: Elsa Rondon MD When: call office for appt Proposed Discharge Date: 06/12/19
[2019-06-12] MEDS: Lactated Ringers 1,000 ML 100 ML IV (12:23)
[2019-06-12] MEDS: Cefazolin 2 GM in 0.9% Normal Saline 100 ML IV (12:43)
== END 2019-06-12 15:08 | disposition home or self-care (01) ==
LOC: SDC 11:05 → AC 11:06
PROVIDERS: PCP Internal Medicine; Referring Provider Urology; Visit Provider Urology
PROC: 0T7D8ZZ Dilation of Urethra, Via Natural or Artificial Opening Endoscopic (ICD-10-PCS; CPT 52281; principal; 2019-06-12 12:45)
DX: N35.92 Unspecified urethral stricture, female (principal); N95.2 Postmenopausal atrophic vaginitis; N39.41 Urge incontinence; N39.3 Stress incontinence (female) (male); R30.0 Dysuria; I10 Essential (primary) hypertension; J45.909 Unspecified asthma, uncomplicated; M79.7 Fibromyalgia; Z87.891 Personal history of nicotine dependence; Z79.82 Long term (current) use of aspirin
CPT/HCPCS: 52281; J7120; J2405

== ENCOUNTER → 2019-08-20 13:15 | Outpatient (CLI) | payer MEDICARE, SELFPAY ==
[2019-07-11 13:08] VITALS: BMI 34.7
== END ==
PROVIDERS: PCP Internal Medicine; Referring Provider Clinical Nurse Specialist; Visit Provider Clinical Nurse Specialist
DX: Z03.818 Encounter for observation for suspected exposure to other biological agents ruled out (principal)
CPT/HCPCS: 87635; G2023; U0004

== ENCOUNTER 2019-09-12 11:31 | Emergency (ER) | payer MEDICARE, SELFPAY ==
[2019-07-11 13:08] VITALS: BMI 34.7
[2019-09-12 11:32] VITALS: BP 147/96; PULSE 66; RESP 20; TEMP 35.8; O2SAT 97; BMI 33.5
--- NOTE | 2019-09-12 12:10 | EKG12_ITS ---
Test Reason : Blood Pressure : / mmHG Vent. Rate : 061 BPM Atrial Rate : 061 BPM P-R Int : 174 ms QRS Dur : 082 ms QT Int : 414 ms P-R-T Axes : 055 071 061 degrees QTc Int : 416 ms Normal sinus rhythm Nonspecific ST and T wave abnormality Abnormal ECG Confirmed by JANET DURBIN ([id number]), scientific editor BIRDIE LERMA ([id number]) on 09/20/2019 7:45:40 AM Referred By: PARKER Confirmed By:JANET DURBIN
--- NOTE | 2019-09-12 12:10 | RAD_ITS ---
STUDY: X-RAY CHEST REASON FOR EXAM: Female, 64 years old. SOB,COPD TECHNIQUE: AP and lateral views of the chest. COMPARISON: Comparison is made with prior examination dated April 02, 2018. FINDINGS: EKG electrodes are seen. Stable mild elevation of the right hemidiaphragm. No acute abnormality is seen. There is no demonstrated pleural abnormality. Normal size heart. Normal mediastinum and mary. Normal visualized pulmonary arteries. Normal visualized aortic arch and descending thoracic aorta. There are mild degenerative changes of the visualized thoracic spine. Normal visualized ribs, clavicles, and shoulders. There is no demonstrated abnormality of the visualized soft tissue structures of the upper abdomen. RAD/Chest PA and Lateral IMPRESSION: No acute abnormality is seen. Electronically Signed: Gal Aparicio, at 13:50 EDT , Service support ,
--- NOTE | 2019-09-12 12:11 | CT_ITS ---
STUDY: CTA CHEST REASON FOR EXAM: Female, 64 years old. COUGH, SOB, DX WITH PNEUMONIA 2 WEEKS AGO, ASTHMA, FORMER SMOKER, COPD RADIATION DOSAGE (If Supplied By Facility): CTDIvol = ( 10.21 ) mGy, DLP = ( 501.86 ) mGycm TECHNIQUE: The examination was performed with the intravenous administration of 100 CC ISOVUE 370. Post-processing of the angiographic images was performed, with multiplanar reformation and 3D reconstruction. Individualized dose optimization techniques were used for this CT. COMPARISON: Comparison is made with prior study dated August 27, 2011. FINDINGS: Normal enhancement of the main pulmonary artery and right and left pulmonary arteries. Normal enhancement of the bilateral peripheral pulmonary arteries. There is no demonstrated pulmonary embolism. Normal thoracic aorta and visualized great vessels. There is no demonstrated aortic dissection. Normal heart and pericardium. Normal mediastinum. Normal hilar regions. Normal visualized trachea and bronchi. The lungs are well expanded. Normal pulmonary parenchyma. Normal pleura. Normal chest wall structures. Normal osseous structures. Normal visualized upper abdomen. CT/CTA Chest W/WO Contrast IMPRESSION: Normal CTA chest examination, without a demonstrated pulmonary embolism or arterial dissection. Electronically Signed: Gal Aparicio, at 14:28 EDT , Service support ,
[2019-09-12 12:20] VITALS: PULSE 80; RESP 20
[2019-09-12] MEDS: Ipratropium/Albuterol Sulfate 3 ML AMPUL.NEB INHALATION (12:20)
[2019-09-12 12:34] VITALS: BP 146/76; PULSE 59; RESP 17; TEMP 36.4; O2SAT 97
[2019-09-12] MEDS: 0.9% Normal Saline 1,000 ML 150 ML IV (12:42)
[2019-09-12 12:43] LABS: Absolute Neutrophil Count 2.1 X10^3/uL (2.0-7.7); Basophil# 0.03 X10^3/uL; Basophil% 0.6 % (0-1); Eosinophil# 0.56 X10^3/uL; Eosinophils% 10.6 % (0-5); Hemoglobin 13.2 g/dL (12.0-15.0); Lymphocyte % 41.6 % (19-41); Mean Corpuscular Hgb 31.7 pg (27.0-32.0); Mean Corpuscular Volume 96.2 fL (81-99); Mean Platelet Vol. 9.2 fl (6.2-12.0); Monocyte# 0.37 X10^3/uL; NRBC Flagged by Analyzer 0 % (0-5); Neutrophil # 2.11 X10^3/uL (2.7-7.7); Neutrophil % 39.8 % (47-70); Platelet Count 194 K/mm3 (150-450); RBC Distribution Width CV 11.9 % (11.6-14.6); RBC Distribution Width SD 41.3 fl (35.1-43.9); Red Blood Count 4.16 M/mm3 (4.2-5.4); White Blood Count 5.3 K/mm3 (4.4-11.0)
--- NOTE | 2019-09-12 12:58 | ED.VIS.GEN ---
History of Present Illness Chief Complaint: Shortness of Breath Informant: Patient Onset: Month(s) Current Severity: Mild Maximum Severity: Mild Narrative: Persistent cough shortness of breath diagnosed with pneumonia on antibiotics no improvement Patient reports for about a month she has had a cough productive of tenacious mucus, she has been tested for coronavirus multiple times negative she has been on doxycycline possibly other antibiotics no improvement she has COPD prior pneumonia, she is followed by Dr. Tariq and Dr. Martin of pulmonary scheduled to see Dr. Martin in a few days, reports persistent harsh coughing despite the use of all of the outpatient management medications aerosols antibiotics. No exposures to coronavirus, no history of NV PE or DVT when she is not coughing she is at baseline she has been using her inhalers with no improvement Past Medical History - Allergies and Home Meds Allergies/Adverse Reactions: Allergies apple Allergy (Verified 09/12/19 11:32) Hives banana Allergy (Verified 09/12/19 11:32) Hives carrot Allergy (Verified 09/12/19 11:32) Hives pineapple Allergy (Verified 09/12/19 11:32) Itching shrimp Allergy (Verified 09/12/19 11:32) Anaphylaxis amoxicillin Adverse Reaction (Verified 09/12/19 11:32) YEAST INFECTION lobster Allergy (Uncoded 09/12/19 11:32) Anaphylaxis Primary Care Physician: Alaina Tariq MD [Primary Care Provider] - Past Medical History: - - The cOPD pneumonia Surgical History: appendectomy, - - Tubal ligation, breast biopsy Smoking Status: Former smoker - Family History Maternal Family History: Family History (Last Reviewed 07/11/19 @ 13:[address] Johan Martin DO) Sister Breast cancer Mother Heart disease Enlarged heart Grandmother Enlarged heart Family History: Reports: - - Mother has an enlarged heart, rheumatoid arthritis and coronary artery disease with a history of four-vessel CABG in the past Paternal Family History: Family History (Last Reviewed 07/11/19 @ 13:[address] Johan Martin DO) Sister Breast cancer Mother Heart disease Enlarged heart Grandmother Enlarged heart Family History: Reports: Diabetes - Paternal side of the family has multiple diabetics Review of Systems General: Denies: Chills, Fever, Sweats Eyes: Denies: Visual changes - bilaterally, Diplopia ENT: Denies: Rhinorrhea, Sore throat Cardiovascular: Denies: Chest pain, Palpitations Respiratory: Reports: Dyspnea, Cough. Denies: Dyspnea on exertion Gastrointestinal: Denies: Abdominal pain, Nausea, Vomiting, Diarrhea, Melena, Hematochezia Genitourinary: Denies: Dysuria, Hematuria, Frequency Musculoskeletal: Denies: Back pain, Extremity Pain Skin: Denies: Rash, Wounds Neurological: Denies: Headache, Weakness, Numbness Physical Exam Vital Signs/Narrative: Vital Signs Temp Pulse Resp BP Pulse Ox 09/12/19 12:20 80 20 H 09/12/19 11:32 96.5 F L 66 20 H 147/96 H 97 General: Well nourished, Well developed, No Acute Distress Head: Normocephalic, Atraumatic Eyes: Perrl, EOMI ENT: Moist mucous membranes, No rhinorrhea Neck: Supple, Nontender Cardiovascular: Regular rate, Regular rhythm, No murmurs Respiratory: No distress, Chest nontender, Rhonchi Abdomen: Soft, Nontender, Nondistended, Normal bowel sounds Back: Nontender, Normal Inspection Extremities: Nontender, No edema Skin: Normal color, No rash Neurological: Alert, Oriented x3, Cranial nerves II-XII grossly intact, Normal Strength, Normal Sensation Psychological: Normal affect, Normal Mood Diagnostic/Tx/Re-eval - Medical Decision Making Patient is in no distress her vital signs are unremarkable pulse ox within normal range, she has a harsh dry cough here HEENT exam pulmonary exam unremarkable suffer some rhonchi ekg shows a sinus rhythm rate of about 61 no acute injury pattern nonspecific changes Is been on doxycycline most recently given all the above screening labs CT ED screening evaluation labs are unremarkable, see all those reports, the CTA of the chest is pending, I spoke with Dr. 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 Martin and return for change in symptoms, she is comfortable with that plan as is her , at this time the CTA is pending and I have asked the afternoon physicians to check CT address other abnormalities the plan is to discharge home as above Home stable Final impression persistent cough ED Disposition - Plan for ED Patient: Diagnosis: Cough in adult Instructions: ED REACTIVE AIRWAY DISEASE Adult, ED COPD Flare Prescriptions: Levofloxacin [Levaquin] 750 mg PO DAILY #7 tab Prescription Printed Acetaminophen with Codeine [Tylenol with Codeine #3 Tablet] 1 ea PO QHS #3 tab Prescription Printed Referrals: Alaina Tariq MD [Primary Care Provider] - Additional Instructions: Follow-up with Dr. Martin as scheduled return for change in symptoms
[2019-09-12 13:04] LABS: BNP,B-Type NATRIURETIC PEPTIDE 3.5 pg/mL (0-100)
[2019-09-12 13:16] LABS: Anion Gap 6 (5-15); BUN 11 mg/dL (7-18); BUN/Creat Ratio 13.4 RATIO (10-20); Calcium,Total 8.7 mg/dL (8.5-10.1); Chloride 107 mmol/L (98-107); Creatinine, Serum 0.82 mg/dL (0.55-1.02); EST Glomerular Filtration Rate 75 mL/min (>60); Est Glom Filt Rate - Afr Amer 91 mL/min (>60); Estimated Creatinine Clearance 81.04 ml/min; Glucose 119 mg/dL (74-106); Potassium 3.5 mmol/L (3.5-5.1); Sodium Level 142 mmol/L (136-145)
[2019-09-12 14:00] VITALS: BP 123/77; PULSE 61; RESP 14; TEMP 36.6; O2SAT 99
[2019-09-12 14:31] VITALS: BP 142/79; PULSE 81; RESP 16; O2SAT 95
== END 2019-09-12 14:50 | disposition home or self-care (01) ==
LOC: ED 13:52
PROVIDERS: Emergency Provider Emergency Medicine; PCP Internal Medicine
DX: R05 Cough (principal); J44.9 Chronic obstructive pulmonary disease, unspecified; Z87.891 Personal history of nicotine dependence; Z80.3 Family history of malignant neoplasm of breast; Z82.49 Family history of ischemic heart disease and other diseases of the circulatory system; Z88.0 Allergy status to penicillin; Z87.01 Personal history of pneumonia (recurrent)
CPT/HCPCS: 71046; 71275; 80048; 83880; 84484; 85025; 87070; 87205; 87798; 93005; 94640; 96360; 96361; 99284; J7030; Q9967; A4216

== ENCOUNTER 2019-11-06 15:22 | Emergency (ER) | payer MEDICARE, SELFPAY ==
[2019-11-06 15:23] VITALS: BP 142/86; PULSE 68; RESP 18; TEMP 36.3; O2SAT 99; BMI 31.3
--- NOTE | 2019-11-06 15:48 | ED.VIS.GEN ---
History of Present Illness Chief Complaint: Shortness of Breath Detail of Chief Complaint: Productive cough with shortness of breath and wheezing Informant: Patient Onset: Days - Onset of illness 3 days ago Context: Sudden Onset Timing: Continuous Quality: Dyspnea with wheezing and productive cough Location: Respiratory Current Severity: Mild Maximum Severity: Moderate Worsened by: Activity Relieved by: Nothing Associated Symptoms: Mild postnasal drainage otherwise negative Narrative: Patient is 64-year-old woman with history of asthmatic bronchitis/COPD who presents with productive cough of yellow-colored sputum, shortness of breath and wheezing for the past 3 days. She lives with her . She has had no ill contacts. She essentially stays at home. She is a former smoker. She denies headache, photophobia, neck pain or neck stiffness. She denies fever or chills. She denies alteration in taste or smell. She denies GI symptoms. She denies urologic symptoms. She denies myalgias arthralgias. Prior similar symptoms: Yes - Diagnosed with pneumonia 1 month ago Recent Illness/Hospitalization: Yes - Pneumonia 1 month ago - Past Medical History (1) Asthma Status: Chronic (2) Essential hypertension Status: Chronic (3) GERD (gastroesophageal reflux disease) Status: Chronic (4) Obesity (BMI 30.0-34.9) Status: Chronic Past Medical History - Allergies and Home Meds Allergies/Adverse Reactions: Allergies apple Allergy (Verified 11/06/19 15:23) Hives banana Allergy (Verified 11/06/19 15:23) Hives carrot Allergy (Verified 11/06/19 15:23) Hives pineapple Allergy (Verified 11/06/19 15:23) Itching shrimp Allergy (Verified 11/06/19 15:23) Anaphylaxis amoxicillin Adverse Reaction (Verified 11/06/19 15:23) YEAST INFECTION lobster Allergy (Uncoded 11/06/19 15:23) Anaphylaxis Primary Care Physician: Alaina Tariq MD [Primary Care Provider] - Prior records reviewed: Yes Surgical History: appendectomy, - - Tubal ligation, breast biopsy Lives: Spouse/ Significant Other Smoking Status: Former smoker Alcohol: None Drugs: None - Family History Maternal Family History: Family History (Last Reviewed 09/14/19 @ 15:34 by IAN Cody) Sister Breast cancer Mother Heart disease Enlarged heart Grandmother Enlarged heart Family History: Reports: - - Mother has an enlarged heart, rheumatoid arthritis and coronary artery disease with a history of four-vessel CABG in the past Paternal Family History: Family History (Last Reviewed 09/14/19 @ 15:34 by IAN Cody) Sister Breast cancer Mother Heart disease Enlarged heart Grandmother Enlarged heart Family History: Reports: Diabetes - Paternal side of the family has multiple diabetics Review of Systems General: Denies: Chills, Fever, Sweats Eyes: Denies: Visual changes - bilaterally, Blurred Vision - bilaterally ENT: Reports: - - Postnasal drainage is chronic.. Denies: Rhinorrhea, Sore throat Cardiovascular: Denies: Chest pain, Palpitations Respiratory: Reports: Dyspnea, Cough, Sputum, Dyspnea on exertion. Denies: Orthopnea, Paroxysmal nocturnal dyspnea, -, - Gastrointestinal: Denies: Abdominal pain, Nausea, Vomiting, Diarrhea, Melena, Hematochezia Genitourinary: Denies: Dysuria, Hematuria, Frequency Musculoskeletal: Denies: Back pain, Extremity Pain Skin: Denies: Rash, Wounds Neurological: Denies: Headache, Weakness, Numbness Hematologic: Denies: Easy bruising, Easy bleeding Allergy: Denies: Uticaria Physical Exam Vital Signs/Narrative: Vital Signs Temp Pulse Resp BP Pulse Ox 11/06/19 15:23 97.3 F L 68 18 142/86 H 99 Inital Vital Signs reviewed: Yes General: Well nourished, Well developed, No Acute Distress Head: Normocephalic, Atraumatic Eyes: Perrl, EOMI. Negative for: Pale conjunctiva, Scleral icterus ENT: Moist mucous membranes, No rhinorrhea, TM's clear Neck: Supple, Nontender Cardiovascular: Regular rate, Regular rhythm, No murmurs Respiratory: No distress, Chest nontender, Wheezing, - - Increased expiratory phase Abdomen: Soft, Nontender, Nondistended, Normal bowel sounds Back: Nontender, Normal Inspection Extremities: Nontender, No edema Skin: Normal color, No rash Neurological: Alert, Oriented x3, Cranial nerves II-XII grossly intact, Normal Strength, Normal Sensation Psychological: Normal affect, Normal Mood Diagnostic/Tx/Re-eval Chest X-Ray - ED: 2 View, Read by ED Physician, Unchanged, Normal, Heart, Lungs, Mediastinum, Bony Structures, No Acute Disease, - - Medical Decision Making Differential diagnosis includes viral upper restaurant infection with exacerbation of asthmatic bronchitis/COPD, pneumonia, versus COPD exacerbation. Will obtain chest x-ray to evaluate for pneumonia. Since she received prednisone within the past month he was given a dose of prednisone as well as DuoNeb and albuterol treatment. Patient was reassessed at 1830. There is a slight wheeze noted anteriorly on the right side. Since patient was recently on prednisone will place on burst of prednisone and since she has productive colored sputum she received a prescription for doxycycline. She was discharged home in stable and improved condition ED Disposition - Plan for ED Patient: Disposition: Home or Assisted Living Diagnosis: Purulent bronchitis, Acute exacerbation of COPD with asthma Instructions: ED COPD Flare Prescriptions: Prednisone [Deltasone] 40 mg PO DAILY #10 tab Transmission Status: Pending to [facility] Doxycycline 100 mg PO BID #14 cap Transmission Status: Pending to [facility] Referrals: Alaina Tariq MD [Primary Care Provider] - 3-5 Days if not improving
[2019-11-06] MEDS: predniSONE 20 MG Tablet 60 MG PO (15:52)
[2019-11-06 16:00] VITALS: PULSE 88; RESP 20
[2019-11-06] MEDS: Albuterol 2.5 MG/3 ML VIAL.NEB. INHALATION ×3 (16:00)
[2019-11-06] MEDS: Ipratropium/Albuterol Sulfate 3 ML AMPUL.NEB INHALATION (16:00)
--- NOTE | 2019-11-06 16:03 | RAD_ITS ---
STUDY: X-RAY CHEST REASON FOR EXAM: Female, 64 years old. PRODUCTIVE COUGH, CONGESTION TECHNIQUE: PA and lateral views of the chest. COMPARISON: 09-12-19 FINDINGS: The lungs are clear and expanded. There is no demonstrated pleural abnormality. Normal size heart. Normal mediastinum and mary. Normal visualized pulmonary arteries. Normal visualized aortic arch and descending thoracic aorta. Normal visualized thoracic spine. Normal visualized ribs, clavicles, and shoulders. There is no demonstrated abnormality of the visualized soft tissue structures of the upper abdomen. RAD/Chest PA and Lateral IMPRESSION: Normal x-ray examination of the chest. Electronically Signed: Pete Goodman MD at 16:15 EDT Tel , Service support ,
[2019-11-06 18:29] VITALS: BP 135/74; PULSE 84; RESP 17; TEMP 36.4; O2SAT 96
[2019-11-06 18:39] VITALS: PULSE 69; RESP 16; O2SAT 98
== END 2019-11-06 18:40 | disposition home or self-care (01) ==
PROVIDERS: Emergency Provider Emergency Medicine; PCP Internal Medicine
DX: J44.1 Chronic obstructive pulmonary disease with (acute) exacerbation (principal); J45.901 Unspecified asthma with (acute) exacerbation; E66.9 Obesity, unspecified; I10 Essential (primary) hypertension; K21.9 Gastro-esophageal reflux disease without esophagitis; Z80.3 Family history of malignant neoplasm of breast; Z82.49 Family history of ischemic heart disease and other diseases of the circulatory system; Z87.891 Personal history of nicotine dependence; Z88.0 Allergy status to penicillin
CPT/HCPCS: 71046; 94640; 99283

== ENCOUNTER → 2019-12-19 10:18 | Outpatient (CLI) | payer MEDICARE, SELFPAY ==
[2019-12-18 10:19] VITALS: BMI 33.5
--- NOTE | 2019-12-19 13:17 | NEURO ---
NCS and/or EMG Patient Report Ordering Doctor: Alaina Tariq DATE OF SERVICE: 12/19/19 Darling Durand presents for electrodiagnostic testing of the right upper limb. She reports numbness and tingling in the right hand. Electrodiagnostic findings: Right median motor nerve demonstrates normal distal latency, amplitude and conduction velocity. Right ulnar motor responses within normal limits, including conduction across the elbow. Normal median and ulnar F wave. Median sensory latency is borderline prolonged at the wrist. Normal ulnar and radial sensory responses. On needle EMG, all muscles tested in the right upper limb showed no evidence of denervation with normal motor unit action potentials. Electrodiagnostic assessment this is an abnormal study in the right upper limb 1. Electrodiagnostic findings demonstrate right-sided median mononeuropathy. This is consistent with a mild right carpal tunnel syndrome. If there are any further questions, please do not hesitate to contact me.
== END ==
LOC: PSN 10:20
PROVIDERS: PCP Internal Medicine; Referring Provider Internal Medicine; Visit Provider Internal Medicine
DX: G56.01 Carpal tunnel syndrome, right upper limb (principal)
CPT/HCPCS: 95886; 95910

== ENCOUNTER 2020-05-04 07:23 | Emergency (ER) | payer MEDICARE, SELFPAY ==
[2020-03-05 09:43] VITALS: BMI 33.3
[2020-05-04 07:24] VITALS: BP 162/80; PULSE 81; RESP 15; TEMP 36.6; O2SAT 96; BMI 35.2
[2020-05-04 07:39] VITALS: BP 162/80; PULSE 81; RESP 15; TEMP 36.6; O2SAT 96
--- NOTE | 2020-05-04 07:39 | CT_ITS ---
STUDY: CT ABDOMEN AND PELVIS WITH CONTRAST REASON FOR EXAM: Female, 64 years old. RLQ PAIN THIS AM, APPENDECTOMY, TUBAL LIGATION RADIATION DOSAGE (If Supplied By Facility): CTDIvol = ( 17.43 ) mGy, DLP = ( 1119.71 ) mGycm TECHNIQUE: Transaxial images were obtained from the dome of the diaphragm to the symphysis pubis without oral contrast. IV 100mL Isovue-300 was administered. Sagittal and coronal images were reconstructed. Individualized dose optimization techniques were used for this CT. COMPARISON: 07/29/2012 FINDINGS: The visualized lung bases are unremarkable. The visualized portions of the heart are within normal limits. Normal liver. Normal gallbladder and extrahepatic biliary system. Normal spleen. Normal pancreas. Normal bilateral adrenal glands. Normal right kidney. Normal left kidney. Normal visualized stomach. Normal small intestine. Normal colon. There are surgical clips in the region of the appendix consistent with a prior appendectomy. Normal abdominal aorta. Normal inferior vena cava. Normal retroperitoneum. Normal urinary bladder. Normal abdominal wall. Normal osseous structures. CT/Abdomen/Pelvis W IV Cont ONLY IMPRESSION: Normal enhanced CT of the abdomen and pelvis. Electronically Signed: Pete Goodman MD at 8:39 EST Tel , Service support ,
--- NOTE | 2020-05-04 07:46 | ED.VIS.GEN ---
History of Present Illness Chief Complaint: Abd Pain Informant: Patient Narrative: 64-year-old female presenting from home with chief complaint of abdominal pain. Patient points to her right lower quadrant as the area is hurting. She states she had a normal bowel movement and urination this morning. No fevers. She feels nauseated. She denies any prior abdominal surgeries but later recalls that she has had an appendectomy and a bilateral tubal ligation. She states she had a gallbladder attack once but still has her gallbladder and was not diagnosed with gallstones. 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 (2) Asthma Status: Chronic (3) Essential hypertension Status: Chronic (4) GERD (gastroesophageal reflux disease) Status: Chronic Past Medical History - Allergies and Home Meds Allergies/Adverse Reactions: Allergies apple Allergy (Verified 05/04/20 07:25) Hives banana Allergy (Verified 05/04/20 07:25) Hives carrot Allergy (Verified 05/04/20 07:25) Hives pineapple Allergy (Verified 05/04/20 07:25) Itching shrimp Allergy (Verified 05/04/20 07:25) Anaphylaxis amoxicillin Adverse Reaction (Verified 05/04/20 07:25) YEAST INFECTION lobster Allergy (Uncoded 05/04/20 07:25) Anaphylaxis Primary Care Physician: Alaina Tariq MD [Primary Care Provider] - Surgical History: appendectomy, - - Tubal ligation, breast biopsy Lives: With Family Smoking Status: Never smoker Drugs: None - Family History Maternal Family History: Family History (Last Reviewed 03/05/20 @ 09:45 by Reina Ridley) Sister Breast cancer Mother Heart disease Enlarged heart Grandmother Enlarged heart Family History: Reports: - - Mother has an enlarged heart, rheumatoid arthritis and coronary artery disease with a history of four-vessel CABG in the past Paternal Family History: Family History (Last Reviewed 03/05/20 @ 09:45 by Reina Ridley) Sister Breast cancer Mother Heart disease Enlarged heart Grandmother Enlarged heart Family History: Reports: Diabetes - Paternal side of the family has multiple diabetics Review of Systems General: Denies: Chills, Fever, Sweats Eyes: Denies: Visual changes - bilaterally, Diplopia ENT: Denies: Rhinorrhea, Sore throat Cardiovascular: Denies: Chest pain, Palpitations Respiratory: Denies: Dyspnea, Cough, Dyspnea on exertion Gastrointestinal: Reports: Abdominal pain, Nausea. Denies: Vomiting, Diarrhea, Melena, Hematochezia Genitourinary: Denies: Dysuria, Hematuria, Frequency Musculoskeletal: Denies: Back pain, Extremity Pain Skin: Denies: Rash, Wounds Neurological: Denies: Headache, Weakness, Numbness Physical Exam Vital Signs/Narrative: Vital Signs Temp Pulse Resp BP Pulse Ox 05/04/20 07:39 97.8 F 81 15 162/80 H 96 05/04/20 07:24 97.8 F 81 15 162/80 H 96 Inital Vital Signs reviewed: Yes General: Well nourished, Well developed, Obese, No Acute Distress Head: Normocephalic, Atraumatic Eyes: Perrl, EOMI ENT: Moist mucous membranes, No rhinorrhea Neck: Supple, Nontender Cardiovascular: Regular rate, Regular rhythm, No murmurs Respiratory: No distress, CTA bilaterally, Chest nontender Abdomen: Soft, Nondistended, Normal bowel sounds, Tender. Negative for: Guarding, Rebound tenderness Back: Nontender, Normal Inspection Extremities: Nontender, No edema Skin: Normal color, No rash Neurological: Alert, Oriented x3, Cranial nerves II-XII grossly intact, Normal Strength, Normal Sensation Psychological: Normal affect, Normal Mood Diagnostic/Tx/Re-eval Laboratory Last Values WBC 6.3 K/mm3 (4.4-11.0) 05/04/20 07:35 RBC 4.10 M/mm3 (4.2-5.4) L 05/04/20 07:35 Hgb 13.1 g/dL (12.0-15.0) 05/04/20 07:35 Hct 38.7 % (37-47) 05/04/20 07:35 MCV 94.4 fL (81-99) 05/04/20 07:35 MCH 32.0 pg (27.0-32.0) 05/04/20 07:35 MCHC 33.9 g/dL (32-36) 05/04/20 07:35 RDW Std Deviation 41.7 fl (35.1-43.9) 05/04/20 07:35 RDW Coeff of Domi 12.1 % (11.6-14.6) 05/04/20 07:35 Plt Count 180 K/mm3 (150-450) 05/04/20 07:35 MPV 8.8 fl (6.2-12.0) 05/04/20 07:35 Immature Gran % (Auto) 0.200 % (0.0-0.9) 05/04/20 07:35 Neut % (Auto) 36.8 % (47-70) L 05/04/20 07:35 Lymph % (Auto) 52.3 % (19-41) H 05/04/20 07:35 [place] % (Auto) 8.0 % (0-10) 05/04/20 07:35 Eos % (Auto) 2.2 % (0-5) 05/04/20 07:35 Baso % (Auto) 0.5 % (0-1) 05/04/20 07:35 Absolute Neuts (auto) 2.3 X10^3/uL (2.0-7.7) 05/04/20 07:35 Absolute Lymphs (auto) 3.28 X10^3/uL (0.83-4.51) 05/04/20 07:35 Nucleated RBC % 0 % (0-5) 05/04/20 07:35 Sodium 142 mmol/L (136-145) 05/04/20 07:35 Potassium 4.0 mmol/L (3.5-5.1) 05/04/20 07:35 Chloride 108 mmol/L (98-107) H 05/04/20 07:35 Carbon Dioxide 28.0 mmol/L (21.0-32.0) 05/04/20 07:35 Anion Gap 6 (5-15) 05/04/20 07:35 BUN 16 mg/dL (7-18) 05/04/20 07:35 Creatinine 0.72 mg/dL (0.55-1.02) 05/04/20 07:35 Estim Creat Clear Calc 83.58 ml/min 05/04/20 07:35 Est GFR (MDRD) Af Amer 105 mL/min (>60) 05/04/20 07:35 Est GFR (MDRD) Non-Af 87 mL/min (>60) 05/04/20 07:35 BUN/Creatinine Ratio 22.2 RATIO (10-20) H 05/04/20 07:35 Glucose 93 mg/dL (74-106) 05/04/20 07:35 Calcium 8.2 mg/dL (8.5-10.1) L 05/04/20 07:35 Total Bilirubin 0.30 mg/dL (0.20-1.00) 05/04/20 07:35 AST 23 U/L (15-37) 05/04/20 07:35 ALT 29 U/L (13-56) 05/04/20 07:35 Alkaline Phosphatase 86 U/L (45-117) 05/04/20 07:35 Total Protein 6.8 g/dL (6.4-8.2) 05/04/20 07:35 Albumin 3.5 g/dL (3.2-5.0) 05/04/20 07:35 Globulin 3.3 g/dL (2.2-4.2) 05/04/20 07:35 Albumin/Globulin Ratio 1.1 RATIO (0.9-2.4) 05/04/20 07:35 Lipase 107 U/L (73-393) 05/04/20 07:35 Urine Color Yellow (Yellow) 05/04/20 07:55 Urine Clarity Clear (Clear) 05/04/20 07:55 Urine pH 5.0 (5.0 - 8.0) 05/04/20 07:55 Ur Specific [place] 1.025 (1.002-1.030) 05/04/20 07:55 Urine Protein Negative mg/dl (Negative) 05/04/20 07:55 Urine Glucose (UA) Normal mg/dl (Normal) 05/04/20 07:55 Urine Ketones Negative mg/dl (Negative) 05/04/20 07:55 Urine Occult Blood 10 /ul (Negative) H 05/04/20 07:55 Urine Nitrite Negative (Negative) 05/04/20 07:55 Urine Bilirubin Negative mg/dL (Negative) 05/04/20 07:55 Urine Urobilinogen Normal mg/dl (Normal) 05/04/20 07:55 Ur Leukocyte Esterase Negative /ul (Negative) 05/04/20 07:55 Urine RBC 0 SEEN /hpf (0-5) 05/04/20 07:55 Urine WBC 0 SEEN /hpf (0-5) 05/04/20 07:55 Ur Squamous Epith Cells 0-5 SEEN /hpf (5-10) 05/04/20 07:55 Urine Bacteria 0 SEEN /hpf (None Seen) 05/04/20 07:55 Urine Mucus 0 SEEN /hpf (<or=2+) 05/04/20 07:55 Clinical Impression(s) from Imaging Studies Abdomen/Pelvis CT 05/04/20 07:39 IMPRESSION: Normal enhanced CT of the abdomen and pelvis. Electronically Signed: Pete Goodman MD at 8:39 EST Tel , Service support , - Medical Decision Making IV was established and the patient received morphine and Zofran. Basic blood work showed a normal white blood cell count. Negative urine. CMP was normal. CT of the abdomen pelvis does not show anything acute that would require admission. I will write for the patient have Bentyl as well as some magnesium citrate. If the patient continues to have symptoms past 24 hours or is worsening she needs to have a repeat examination. This was relayed to the patient both verbally and in writing. ED Disposition - Plan for ED Patient: Disposition: Home or Assisted Living Diagnosis: Acute abdominal pain Instructions: ED Abdominal Pain Unkn Cause Fem Prescriptions: Dicyclomine HCl [Bentyl] 20 mg PO TIDAC #20 cap Prescription Printed Magnesium Citrate [Citrate Of Magnesia] 300 ml PO X1 #1 bottle Prescription Printed Referrals: Alaina Tariq MD [Primary Care Provider] - 1 Day for another exam (if continued symptoms or return to the ED if concerns/worsening)
[2020-05-04 07:49] LABS: Absolute Lymphocyte Count 3.28 X10^3/uL (0.83-4.51); Absolute Neutrophil Count 2.3 X10^3/uL (2.0-7.7); Basophil# 0.03 X10^3/uL; Basophil% 0.5 % (0-1); Eosinophil# 0.14 X10^3/uL; Eosinophils% 2.2 % (0-5); Hematocrit 38.7 % (37-47); Hemoglobin 13.1 g/dL (12.0-15.0); Lymphocyte # 3.28 X10^3/ul (4.0); Lymphocyte % 52.3 % (19-41); Mean Corp Hgb Conc 33.9 g/dL (32-36); Mean Corpuscular Volume 94.4 fL (81-99); Mean Platelet Vol. 8.8 fl (6.2-12.0); NRBC Flagged by Analyzer 0 % (0-5); Neutrophil # 2.31 X10^3/uL (2.7-7.7); Neutrophil % 36.8 % (47-70); Platelet Count 180 K/mm3 (150-450); RBC Distribution Width CV 12.1 % (11.6-14.6); RBC Distribution Width SD 41.7 fl (35.1-43.9); White Blood Count 6.3 K/mm3 (4.4-11.0)
[2020-05-04] MEDS: Morphine 4 MG/ML Syringe IV (07:56)
[2020-05-04] MEDS: Ondansetron 4 MG/2 ML Vial IV (07:56)
[2020-05-04 08:01] LABS: ALB/GLOB Ratio 1.1 RATIO (0.9-2.4); AST(SGOT) 23 U/L (15-37); Alanine Aminotransfer ALT/SGPT 29 U/L (13-56); Albumin, Serum 3.5 g/dL (3.2-5.0); Alkaline Phosphatase 86 U/L (45-117); Anion Gap 6 (5-15); BUN 16 mg/dL (7-18); BUN/Creat Ratio 22.2 RATIO (10-20); Calcium,Total 8.2 mg/dL (8.5-10.1); Chloride 108 mmol/L (98-107); Creatinine, Serum 0.72 mg/dL (0.55-1.02); EST Glomerular Filtration Rate 87 mL/min (>60); Est Glom Filt Rate - Afr Amer 105 mL/min (>60); Estimated Creatinine Clearance 83.58 ml/min; Globulin 3.3 g/dL (2.2-4.2); Glucose 93 mg/dL (74-106); Lipase 107 U/L (73-393); Protein, Total 6.8 g/dL (6.4-8.2); Sodium Level 142 mmol/L (136-145)
[2020-05-04 08:03] LABS: Bacteria 0 SEEN /hpf (None Seen); Mucous, Urine 0 SEEN /hpf (<or=2+); Red Blood Cells-Urine 0 SEEN /hpf (0-5); White Blood Cells 0 SEEN /hpf (0-5)
[2020-05-04 08:11] LABS: Color, Urine Yellow (Yellow); Glucose, Dipstick Normal (Normal); Ketone-Dipstick Negative (Negative); Leukocyte Esterase-Dipstick Negative /ul (Negative); Nitrite-Dipstick Negative (Negative); Occult Blood-Urine 10 /ul (Negative); Protein-Dipstick Negative (Negative); Specific Gravity, Urine 1.025 (1.002-1.030); Urine Bilirubin Dipstick Negative (Negative); Urine Clarity Clear (Clear); Urine Urobilinogen Normal (Normal)
[2020-05-04 08:29] LABS: Squamous Epithelial Cells - UA 0-5 SEEN /hpf (5-10)
[2020-05-04] MEDS: Dicyclomine 10 MG Capsule 20 MG PO (08:59)
[2020-05-04 09:10] VITALS: PULSE 88; RESP 17; O2SAT 98
== END 2020-05-04 09:11 | disposition home or self-care (01) ==
PROVIDERS: Emergency Provider Emergency Medicine; PCP Internal Medicine
DX: R10.9 Unspecified abdominal pain (principal); I10 Essential (primary) hypertension; J45.909 Unspecified asthma, uncomplicated; K21.9 Gastro-esophageal reflux disease without esophagitis; Z80.3 Family history of malignant neoplasm of breast; Z82.49 Family history of ischemic heart disease and other diseases of the circulatory system; Z83.3 Family history of diabetes mellitus; Z88.0 Allergy status to penicillin; E66.9 Obesity, unspecified; Q64.33 Congenital stricture of urinary meatus
CPT/HCPCS: 74177; 80053; 81001; 83690; 85025; 96374; 96375; 99284; Q9967; A4216; J2405

== ENCOUNTER 2020-05-20 17:39 | Emergency (ER) | payer MEDICARE, SELFPAY ==
[2020-05-20 17:40] VITALS: BP 144/81; PULSE 66; RESP 14; TEMP 36.8; O2SAT 99; BMI 34.7
--- NOTE | 2020-05-20 17:57 | EKG12_ITS ---
Test Reason : Blood Pressure : / mmHG Vent. Rate : 062 BPM Atrial Rate : 062 BPM P-R Int : 184 ms QRS Dur : 080 ms QT Int : 420 ms P-R-T Axes : 073 079 078 degrees QTc Int : 426 ms Normal sinus rhythm Normal ECG Confirmed by LAUREN SUÁREZ, PANCHITO ([id number]), editorial specialist BIRDIE LERMA ([id number]) on 05/22/2020 10:32:49 AM Referred By: ANURADHA Confirmed By:PANCHITO AGUILAR MD
--- NOTE | 2020-05-20 18:00 | ED.VIS.GEN ---
History of Present Illness Chief Complaint: Cough Informant: Patient Onset: Days Maximum Severity: Mild Narrative: Patient's been complaining for days of a runny nose copious, cough productive of some minimal mucus, and right ear pain, sense of chest congestion, she has COPD and asthma she has her home inhalers or home nebulizer machine she is been using, she has no history of AL PE or DVT history of leg edema no swelling she has not been exposed to coronavirus she is been tested at least once this year negative she is not prone to sore throat she is had no exposures she is eating and drinking she complains of right ear pressure Past Medical History - Allergies and Home Meds Allergies/Adverse Reactions: Allergies apple Allergy (Verified 05/20/20 17:40) Hives banana Allergy (Verified 05/20/20 17:40) Hives carrot Allergy (Verified 05/20/20 17:40) Hives pineapple Allergy (Verified 05/20/20 17:40) Itching shrimp Allergy (Verified 05/20/20 17:40) Anaphylaxis amoxicillin Adverse Reaction (Verified 05/20/20 17:40) YEAST INFECTION lobster Allergy (Uncoded 05/20/20 17:40) Anaphylaxis Primary Care Physician: Alaina Tariq MD [Primary Care Provider] - Past Medical History: - - COPD and asthma Surgical History: appendectomy, - - Tubal ligation, breast biopsy Smoking Status: Never smoker - Family History Maternal Family History: Family History (Last Reviewed 03/05/20 @ 09:45 by Reina Ridley) Sister Breast cancer Mother Heart disease Enlarged heart Grandmother Enlarged heart Family History: Reports: - - Mother has an enlarged heart, rheumatoid arthritis and coronary artery disease with a history of four-vessel CABG in the past Paternal Family History: Family History (Last Reviewed 03/05/20 @ 09:45 by Reina Ridley) Sister Breast cancer Mother Heart disease Enlarged heart Grandmother Enlarged heart Family History: Reports: Diabetes - Paternal side of the family has multiple diabetics Review of Systems General: Denies: Chills, Fever, Sweats Eyes: Denies: Visual changes - bilaterally, Diplopia ENT: Reports: Right ear pain, Rhinorrhea, Sore throat Cardiovascular: Denies: Chest pain, Palpitations Respiratory: Denies: Dyspnea, Cough, Dyspnea on exertion Gastrointestinal: Denies: Abdominal pain, Nausea, Vomiting, Diarrhea, Melena, Hematochezia Genitourinary: Denies: Dysuria, Hematuria, Frequency Musculoskeletal: Denies: Back pain, Extremity Pain Skin: Denies: Rash, Wounds Neurological: Denies: Headache, Weakness, Numbness Physical Exam Vital Signs/Narrative: Vital Signs Temp Pulse Resp BP Pulse Ox 05/20/20 17:40 98.2 F 66 14 144/81 H 99 General: Well nourished, Well developed, No Acute Distress Head: Normocephalic, Atraumatic Eyes: Perrl, EOMI ENT: Moist mucous membranes, - - Is a slight bulge to her right TM no obvious signs of acute infection Neck: Supple, Nontender Cardiovascular: Regular rate, Regular rhythm, No murmurs Respiratory: No distress, CTA bilaterally, Chest nontender Abdomen: Soft, Nontender, Nondistended, Normal bowel sounds Back: Nontender, Normal Inspection Extremities: Nontender, No edema Skin: Normal color, No rash Neurological: Alert, Oriented x3, Cranial nerves II-XII grossly intact, Normal Strength, Normal Sensation Psychological: Normal affect, Normal Mood Diagnostic/Tx/Re-eval - Medical Decision Making She has had a cough some chest congestion with a cough and EKG is obtained and shows sinus rhythm rate 62 no acute injury pattern appreciated again she has noticed her AL PE or DVT she has a chest congestion only really when she coughs and the cough is abated now with no coughing her vital signs are unremarkable she does appear to have a serous otitis on the right her throat is normal no exudate speech is normal her nose is congested she will be provided chest x-ray EKG [facility] Covid screen is obtained and is negative X-ray 1 view to my review is unremarkable see those reports Explained the above to her [facility], she will continue to use Flonase at home use all of her medications and follow-up with outpatient providers Home stable Final impression acute URI ED Disposition - Plan for ED Patient: Disposition: Home or Assisted Living Diagnosis: URI (upper respiratory infection) Prescriptions: Fluticasone 0.05% [Flonase Nasal [place]] 1 spray NASAL BID #1 bottle Prescription Printed Naproxen [Naprosyn] 500 mg PO BID PRN #20 tab Prescription Printed Referrals: Alaina Tariq MD [Primary Care Provider] -
[2020-05-20] MEDS: Oxymetazoline 0.05% 1 SPRAY SPRAY.BTL 2 SPRAY NASAL (18:16)
--- NOTE | 2020-05-20 18:20 | RAD_ITS ---
STUDY: X-RAY CHEST REASON FOR EXAM: Female, 64 years swallow old. Sore throat. Sinus congestion. Cough. Right ear pain. TECHNIQUE: Single AP portable view of the chest. COMPARISON: 11/06/2019. FINDINGS: The lungs are clear and expanded. There is no demonstrated pleural abnormality. Normal size heart. Normal mediastinum and mary. Normal visualized pulmonary arteries. Normal visualized aortic arch and descending thoracic aorta. There are diffuse degenerative changes of the visualized thoracic spine. Normal visualized ribs, clavicles, and shoulders. There is no demonstrated abnormality of the visualized soft tissue structures of the upper abdomen. RAD/Chest 1 View (Portable) IMPRESSION: No acute cardiopulmonary disease. There is no major interval change. Electronically Signed: Dejan More DO at 18:38 EST Tel [phone], Service support ,
== END 2020-05-20 19:03 | disposition home or self-care (01) ==
LOC: ED 18:42
PROVIDERS: Emergency Provider Emergency Medicine; PCP Internal Medicine
DX: J06.9 Acute upper respiratory infection, unspecified (principal); J44.9 Chronic obstructive pulmonary disease, unspecified; Z80.3 Family history of malignant neoplasm of breast; Z82.49 Family history of ischemic heart disease and other diseases of the circulatory system; Z83.3 Family history of diabetes mellitus; Z88.0 Allergy status to penicillin
CPT/HCPCS: 71045; 87426; 93005; 99282

== ENCOUNTER → 2020-06-19 12:53 | Outpatient (CLI) | payer MEDICARE, SELFPAY ==
[2020-06-11 13:05] VITALS: BMI 34.8
--- NOTE | 2020-06-19 12:55 | ECHOD_ITS ---
Reason For Study: MURMUR Procedure This was a 2D Doppler, Color Flow transthoracic echocardiogram. The study was technically difficult. Exam performed in department. Left Ventricle Normal LV size. Left ventricular systolic function is normal. The estimated ejection fraction is 55 %. No evidence for diastolic dysfunction. No regional wall motion abnormalities noted. Right Ventricle Normal RV size. Normal systolic function. Atria The left atrium is mildly enlarged. Normal right atrium. No doppler evidence for ASD. Mitral Valve There is no mitral annular calcification. Mild diffuse mitral valve thickening. Trivial mitral valve insufficiency. Tricuspid Valve Normal tricuspid valve. Trivial tricuspid valve insufficiency. Right ventricular systolic pressure estimated to be 32 mmHg. Aortic Valve Trisinus/trileaflet aortic valve. Mild diffuse aortic valve thickening. Pulmonic Valve The pulmonic valve is not well visualized. Trivial pulmonic valve insufficiency. Great Vessels Normal sized aortic root. Pericardium/Pleural No pericardial effusion. MMode/2D Measurements & Calculations LVIDd: 4.5 cm IVSd: 1.0 cm Ao root diam: 3.0 cm LVIDs: 3.2 cm LVPWd: 1.0 cm RVDd: 3.6 cm FS: 29.7 % LAV(MOD-bp): 61.9 ml LVAd ap4: 32.8 cm2 SV(MOD-sp4): 67.3 ml LAV(MOD-bp) Indexed: 27.6 ml/m2 EDV(MOD-sp4): 110.1 ml LAV(MOD-sp2): 61.6 ml EDV(sp4-el): 112.4 ml LAV(MOD-sp4): 55.7 ml LVAs ap4: 17.9 cm2 ESV(MOD-sp4): 42.8 ml ESV(sp4-el): 43.2 ml EF(MOD-sp4): 61.1 % EF(sp4-el): 61.6 % SV(sp4-el): 69.2 ml LA A4 area: 20.7 cm2 LA dimension(2D): 3.8 cm RA A4 area: 18.1 cm2 Time Measurements MV dec time: 0.20 sec Doppler Measurements & Calculations MV E max brett: 83.1 cm/sec Lat Peak E' Brett: 13.8 cm/sec Med Peak E' Brett: 6.9 cm/sec MV A max brett: 85.3 cm/sec E/E' lat: 6.0 E/E' med: 12.1 MV E/A: 0.97 Ao V2 max: 158.5 cm/sec LV V1 max: 95.7 cm/sec PA V2 max: 98.0 cm/sec Ao max P.1 mmHg LV V1 max P.7 mmHg PI end-d brett: 91.4 cm/sec TR max brett: 267.9 cm/sec TR max P.7 mmHg Interpretation Summary The study was technically difficult. Left ventricular systolic function is normal. The estimated ejection fraction is 55 %. The left atrium is mildly enlarged. Mild diffuse mitral valve thickening. Trivial mitral valve insufficiency. Trivial tricuspid valve insufficiency. Mild diffuse aortic valve thickening. Trivial pulmonic valve insufficiency. Right ventricular systolic pressure estimated to be 32 mmHg. No evidence for diastolic dysfunction. Ordering Physician: Talon Jimenez Referring Physician: ILYA MONROE Performed By: Kristine You RDCS
== END ==
LOC: CVS 12:54
PROVIDERS: PCP Internal Medicine; Visit Provider Internal Medicine Cardiovascular Disease
DX: R00.2 Palpitations (principal)
CPT/HCPCS: 93306

== ENCOUNTER 2021-01-23 14:42 | Emergency (ER) | payer MEDICARE, SELFPAY ==
[2021-01-23] VITALS (7 sets, daily range): BP systolic 147–198; BP diastolic 73–85; PULSE 48–64; RESP 16–24; TEMP 36.5; O2SAT 96–100; BMI 33.6
--- NOTE | 2021-01-23 15:51 | EKG12_ITS ---
Test Reason : HYPOTENSON Blood Pressure : / mmHG Vent. Rate : 050 BPM Atrial Rate : 050 BPM P-R Int : 220 ms QRS Dur : 086 ms QT Int : 422 ms P-R-T Axes : 043 073 074 degrees QTc Int : 384 ms Sinus bradycardia with 1st degree A-V block Nonspecific ST abnormality Abnormal ECG Confirmed by RAI SUÁREZ, LENKA ([id number]), news editor BIRDIE LERMA ([id number]) on 01/27/2021 8:41:48 AM Referred By: JAYLON Confirmed By:LENKA ATWOOD MD
[2021-01-23 16:00] LABS: Absolute Lymphocyte Count 2.05 X10^3/uL (0.83-4.51); Absolute Neutrophil Count 1.7 X10^3/uL (2.0-7.7); Basophil# 0.02 X10^3/uL; Basophil% 0.5 % (0-1); Eosinophil# 0.16 X10^3/uL; Eosinophils% 3.7 % (0-5); Hematocrit 39.2 % (37-47); Hemoglobin 13.2 g/dL (12.0-15.0); Lymphocyte # 2.05 X10^3/ul (0.83-4.51); Lymphocyte % 47.8 % (19-41); Mean Corp Hgb Conc 33.7 g/dL (32-36); Mean Corpuscular Hgb 31.4 pg (27.0-32.0); Mean Corpuscular Volume 93.1 fL (81-99); Mean Platelet Vol. 8.7 fl (6.2-12.0); Monocyte# 0.31 X10^3/uL; Monocyte% 7.2 % (0-10); NRBC Flagged by Analyzer 0 % (0-5); Neutrophil # 1.74 X10^3/uL (2.7-7.7); Neutrophil % 40.6 % (47-70); Platelet Count 173 K/mm3 (150-450); RBC Distribution Width CV 11.7 % (11.6-14.6); RBC Distribution Width SD 39.5 fl (35.1-43.9); Red Blood Count 4.21 M/mm3 (4.2-5.4); White Blood Count 4.3 K/mm3 (4.4-11.0)
--- NOTE | 2021-01-23 16:15 | RAD_ITS ---
EXAM: XR CHEST, 1 VIEW CLINICAL INDICATION: chest pain TECHNIQUE: Frontal view of the chest. This report was created using [employer] report generation technology. COMPARISON: 05/20/2020 FINDINGS: LUNGS AND PLEURAL SPACES: Unremarkable. No consolidation or edema. No pneumothorax. No effusion. HEART: Unremarkable. Cardiac silhouette not enlarged. MEDIASTINUM: Central airways and mediastinal contour are unremarkable. BONES/JOINTS: Unremarkable. SOFT TISSUES: Unremarkable. RAD/Chest 1 View (Portable) IMPRESSION: No radiographic evidence of acute cardiopulmonary disease. Electronically Signed: Marco Michel MD at 16:32 EDT , Service support ,
--- NOTE | 2021-01-23 16:18 | CT_ITS ---
STUDY: CT BRAIN WITHOUT CONTRAST REASON FOR EXAM: Female, 65 years old. DIZZINESS near syncope TECHNIQUE: Transaxial CT imaging of the brain was performed without administration of intravenous contrast material. Individualized dose optimization techniques were used for this CT. COMPARISON: 07/05/2013 FINDINGS: Normal calvarium. Normal soft tissues. Normal size ventricles and extra-axial spaces for the patient''s age. Normal white matter tracts of the cerebral hemispheres. Normal basal ganglia and thalami. Normal brainstem. Normal cerebellum. There is no intracranial hemorrhage. There are no findings of an acute ischemic infarction. Normal visualized paranasal sinuses. ASPECTS 10 CT/Brain/Head without Contrast IMPRESSION: There are no acute intracranial findings. Electronically Signed: Marco Michel MD at 16:56 EDT , Service support ,
--- NOTE | 2021-01-23 16:19 | EDS_ITS ---
HPI History of Present Illness Chief Complaint: Hypertension Narrative Narrative: 65-year-old female presenting for evaluation of a near syncopal episode. She states she feels as if her blood pressure is elevated. She states that she knows when her blood pressure is elevated because she feels a little off. She states that her blood pressure cuff at home is not accurate and she has not checked her blood pressure prior to arrival. Patient states that she felt twice that she might be about to faint. She did not. She does not have an acute onset headache. She denies visual changes. She denies chest pain, palpitations, shortness of breath. She does state that she did not eat very much today. She denies fever, chills, nausea, vomiting. Patient currently on 50 mg of metoprolol succinate daily, losartan 25 mg daily, HCTZ 12.5 mg daily. She denies any medication changes. [facility] Medical History Allergies Arthritis Asthma Back problem Cataract Essential hypertension External hemorrhoid, thrombosed Fibrocystic breast disease Fibrocystic breast disease Fibromyalgia GERD (gastroesophageal reflux disease) Hearing problem Heart murmur Sciatica Home Medications hydrochlorothiazide 12.5 mg capsule 12.5 mg PO DAILY 30 Days #30 cap 05/02/18 [History Last Taken 06/12/19 09:00] losartan 25 mg tablet 25 mg PO DAILY 30 Days #30 tab 05/02/18 [History Last Taken 06/12/19 09:00] citalopram 40 mg tablet 40 mg PO DAILY 11/07/18 [History Last Taken 06/12/19 09:00] gabapentin 600 mg tablet 600 mg PO QHS PRN 11/07/18 [History Last Taken Unknown] gabapentin 100 mg PO DAILY PRN 01/06/19 [History Last Taken Unknown] albuterol sulfate 2.5 mg INHALATION Q4H PRN #180 ml 02/07/19 [Rx Last Taken Unkn own] cholecalciferol (vitamin D3) 2,000 unit PO DAILY 04/02/19 [History Last Taken Unknown] albuterol sulfate 90 mcg/actuation aerosol inhaler 2 puff INHALATION Q4H PRN #1 device 07/11/19 [Rx Last Taken Unknown] pantoprazole 40 mg PO DAILY 09/12/19 [History Last Taken Unknown] aspirin 81 mg PO DAILY@0800 05/04/20 [History Last Taken Unknown] dicyclomine 20 mg PO TIDAC #20 cap 05/04/20 [Rx Last Taken Unknown] fluticasone propionate 1 spray INTRANASAL BID PRN 05/04/20 [History Last Taken Unknown] naproxen 500 mg PO BID PRN #20 tab 05/20/20 [Rx Last Taken Unknown] montelukast 10 mg tablet 10 mg PO DAILY 07/29/20 [History Last Taken Unknown] metoprolol succinate 50 mg tablet,extended release 24 hr 50 mg PO DAILY #30 tab 08/18/20 [Rx Last Taken Unknown] Allergy/AdvReac Type Severity Reaction Status Date / Time apple Allergy Hives Verified 01/23/21 14:43 banana Allergy Hives Verified 01/23/21 14:43 carrot Allergy Hives Verified 01/23/21 14:43 pineapple Allergy Itching Verified 01/23/21 14:43 shrimp Allergy Anaphylaxis Verified 01/23/21 14:43 amoxicillin AdvReac YEAST Verified 01/23/21 14:43 INFECTION lobster Allergy Anaphylaxis Uncoded 01/23/21 14:43 Family History Sister Breast cancer Mother Heart disease Enlarged heart Grandmother Enlarged heart Other Anxiety and depression Arthritis History of blood clots Hypertension Surgical History H/O tubal ligation History of removal of cyst Hx of appendectomy Social History Smoking Status: Former smoker quit date: 04/11/93 alcohol intake: current alcohol intake frequency: holidays/special occasions only Alcohol type: wine details: social substance use type: does not use caffeine: No additional social history: Does take aspirin daily Does not take Ibuprofen ROS ROS ED Constitutional Constitutional ED: Denies chills, fever(s) or sweats Eyes Eyes: Denies blurry vision or change in vision ENT ENT ED: Denies ear pain or sore throat Cardiovascular Cardiovascular: Denies chest pain, palpitations or racing heartbeat Respiratory/Chest Respiratory/Chest: Denies cough, dyspnea or sputum Gastrointestinal Gastrointestinal: Denies abdominal pain, constipation, diarrhea, nausea or vomiting Genitourinary Genitourinary ED: Denies dysuria, hematuria or urinary frequency Musculoskeletal Musculoskeletal: Denies arthralgias, myalgias or neck pain Integumentary Denies abscess, Abrasions or rash Neurologic Neurologic: Reports other Details: Lightheadedness ; Denies headache(s), paresthesias or weakness Psychiatric Psychiatric: Denies anxiety, depression, suicidal ideation or suicidal thoughts Endocrine Endocrinology: Denies polydipsia or polyuria EXAM Physical Exam Const Vital Signs: 01/23/21 14:43 01/23/21 15:57 01/23/21 16:21 Temperature 97.7 F L 97.7 F L Temperature Source Temporal Temporal Pulse Rate 64 49 L Pulse Rate [Lying] Pulse Rate [Sitting] Pulse Rate [Standing] Respiratory Rate 18 16 Respiratory Effort Normal Non-Labored Respiratory Pattern Normal Blood Pressure 198/77 H 165/84 H Blood Pressure [Lying] Blood Pressure [Sitting] Blood Pressure [Standing] Blood Pressure Mean 117 111 Blood Pressure Mean [Lying] Blood Pressure Mean [Sitting] Blood Pressure Mean [Standing] Pulse Ox 98 96 96 Oxygen Delivery Method Room Air Room Air Room Air 01/23/21 16:23 01/23/21 17:25 01/23/21 18:10 Temperature Temperature Source Pulse Rate 49 L 56 L Pulse Rate [Lying] 56 L Pulse Rate [Sitting] 51 L Pulse Rate [Standing] 60 Respiratory Rate 24 H 20 H Respiratory Effort Respiratory Pattern Blood Pressure 159/73 H 154/82 H Blood Pressure [Lying] 147/76 H Blood Pressure [Sitting] 156/80 H Blood Pressure [Standing] 155/85 H Blood Pressure Mean 101 106 Blood Pressure Mean [Lying] 99 Blood Pressure Mean [Sitting] 105 Blood Pressure Mean [Standing] 108 Pulse Ox 97 100 Oxygen Delivery Method Room Air Room Air 01/23/21 18:34 Temperature Temperature Source Pulse Rate 48 L Pulse Rate [Lying] Pulse Rate [Sitting] Pulse Rate [Standing] Respiratory Rate 18 Respiratory Effort Respiratory Pattern Blood Pressure 153/79 H Blood Pressure [Lying] Blood Pressure [Sitting] Blood Pressure [Standing] Blood Pressure Mean Blood Pressure Mean [Lying] Blood Pressure Mean [Sitting] Blood Pressure Mean [Standing] Pulse Ox 98 Oxygen Delivery Method Positive well nourished and no apparent distress General Appearance ED: Negative for pallor HEENT Reports normocephalic and head/scalp atraumatic Eyes PERRL and EOMs intact bilaterally Neck no lymphadenopathy and supple Chest Wall inspection of chest normal and palpation of chest normal Resp normal respiratory effort and clear to auscultation bilaterally Auscultation: Negative for rales, rhonchi or wheezes Cardio regular rate and regular rhythm GI normal to inspection, nondistended, normoactive bowel sounds and non-distended Auscultation: normoactive bowel sounds Palpation: soft Narrative: Deferred Extremity normal to inspection General Extremety ED: Yes edema and tenderness General Extremity: edema Neuro oriented x3 and CN's II-XII intact bilaterally Sensorium / Orientation: alert Motor Exam: strength 5/5 throughout Psych mental status grossly normal Attitude: No agitated Skin no rashes or lesions noted and no wounds General Skin Exam: Negative for jaundice or pallor MDM MDM MDM Narrative Medical decision making narrative: Patient presenting with concern for elevated blood pressure and concern for near syncope. Her blood pressure was initially elevated but then settled into the 150s systolically. She does not know if her blood pressures were elevated at home because she does not have an accurate blood pressure cuff. She has no other symptoms. Patient has history of leukopenia and lymphopenia and this is consistent with her lab findings today. Troponin is negative. Renal function electrolytes are normal. EKG on my interpretation shows a sinus bradycardia with first-degree AV block. Chest x- ray my interpretation shows no acute cardiopulmonary process and the radiologist does agree. Obtain a CT of the brain which is negative for acute findings as interpreted by the radiologist and reviewed by myself. Patient's blood pressure is 153/79. I discussed this with Dr. Finn who is on-call for her primary care physician. She recommended that she keep a blood pressure diary and call office tomorrow for an appointment to adjust medications as necessary. Patient will keep a blood pressure diary and follow-up outpatient for blood pressure medication assessment as needed. Impression: 1. Hypertension?established [id number] 2. Nursing Lab Data Labs: Laboratory Results - last 24 hr 01/23/21 01/23/21 15:55 15:55 WBC 4.3 L RBC 4.21 Hgb 13.2 Hct 39.2 MCV 93.1 MCH 31.4 MCHC 33.7 RDW Std Deviation 39.5 RDW Coeff of Domi 11.7 Plt Count 173 MPV 8.7 Immature Gran % (Auto) 0.200 Neut % (Auto) 40.6 L Lymph % (Auto) 47.8 H Kinney % (Auto) 7.2 Eos % (Auto) 3.7 Baso % (Auto) 0.5 Absolute Neuts (auto) 1.7 L Absolute Lymphs (auto) 2.05 Nucleated RBC % 0 Sodium 139 Potassium 3.7 Chloride 106 Carbon Dioxide 29.0 Anion Gap 4 L BUN 11 Creatinine 0.75 Estim Creat Clear Calc 84.70 Est GFR (MDRD) Af Amer 100 Est GFR (MDRD) Non-Af 83 BUN/Creatinine Ratio 14.7 Glucose 92 Calcium 9.3 Troponin I High Sens 28 Radiography Diagnostic Testing: Clinical Impression(s) from Imaging Studies Chest X-Ray 01/23/21 16:15 IMPRESSION: No radiographic evidence of acute cardiopulmonary disease. Electronically Signed: Marco Michel MD at 16:32 EDT , Service support , Brain CT 01/23/21 16:18 IMPRESSION: There are no acute intracranial findings. Electronically Signed: Marco Michel MD at 16:56 EDT , Service support , Discharge Plan Triage Chief Complaint: Hypertension Other Complaint: Dizziness ED Provider: Hiram Lopez Dx/Rx/DC Orders Instructions: ED Hypertension, Established, ED Near-Fainting, Uncertain Cause Prescriptions: No Action losartan 25 mg tablet 25 mg PO DAILY 30 Days Qty: 30 RF: 0 hydrochlorothiazide 12.5 mg capsule 12.5 mg PO DAILY 30 Days Qty: 30 RF: 0 citalopram [Celexa] 40 mg tablet 40 mg PO DAILY RF: 0 gabapentin 600 mg tablet 600 mg PO QHS PRN (Reason: other) RF: 0 albuterol sulfate 2.5 mg /3 mL (0.083 %) solution for nebulization 2.5 mg INHALATION Q4H PRN (Reason: Sob &/Or Wheezing) Qty: 180 RF: 3 albuterol sulfate [Ventolin HFA] 90 mcg/actuation HFA aerosol inhaler 2 puff INHALATION Q4H PRN (Reason: shortness of breath or wheezing) Qty: 1 RF: 3 montelukast [Singulair] 10 mg tablet 10 mg PO DAILY RF: 0 gabapentin 100 MG capsule 100 mg PO DAILY PRN (Reason: Pain Score 1-10) RF: 0 cholecalciferol (vitamin D3) 2,000 UNIT capsule 2,000 unit PO DAILY RF: 0 pantoprazole 40 MG tablet,delayed release (DR/EC) 40 mg PO DAILY RF: 0 aspirin 81 MG tablet,chewable 81 mg PO DAILY@0800 RF: 0 fluticasone propionate 16 GM spray,suspension 1 spray INTRANASAL BID PRN (Reason: Congestion) RF: 0 dicyclomine 10 MG capsule 20 mg PO TIDAC Qty: 20 RF: 0 naproxen 500 MG tablet 500 mg PO BID PRN Qty: 20 RF: 0 metoprolol succinate 50 mg tablet extended release 24 hr 50 mg PO DAILY Qty: 30 RF: 11 Primary Care Provider: Alaina Tariq Referrals: Alaina Tariq MD [Primary Care Provider] - Disposition Disposition: Home, Self Care Discharge Date/Time: 01/23/21 18:37
[2021-01-23 16:21] LABS: Anion Gap 4 (5-15); BUN 11 mg/dL (7-18); BUN/Creat Ratio 14.7 RATIO (10-20); Calcium,Total 9.3 mg/dL (8.5-10.1); Chloride 106 mmol/L (98-107); Creatinine, Serum 0.75 mg/dL (0.55-1.02); EST Glomerular Filtration Rate 83 mL/min (>60); Est Glom Filt Rate - Afr Amer 100 mL/min (>60); Glucose 92 mg/dL (74-106); Potassium 3.7 mmol/L (3.5-5.1); Sodium Level 139 mmol/L (136-145); Troponin-I HS 28 pg/mL (3.0-54.0)
== END 2021-01-23 18:37 | disposition home or self-care (01) ==
PROVIDERS: Emergency Provider Student in an Organized Health Care Education/Training Program; PCP Internal Medicine
DX: I10 Essential (primary) hypertension (principal); Z87.891 Personal history of nicotine dependence; Z79.82 Long term (current) use of aspirin; K21.9 Gastro-esophageal reflux disease without esophagitis; Z79.899 Other long term (current) drug therapy
CPT/HCPCS: 70450; 71045; 80048; 84484; 85025; 93005; 99285; A4216

== ENCOUNTER 2021-02-12 10:23 | Emergency (ER) | payer MEDICARE, SELFPAY ==
[2021-02-12 10:24] VITALS: BP 155/58; PULSE 57; RESP 16; TEMP 36.2; O2SAT 100; BMI 31.3
--- NOTE | 2021-02-12 10:33 | RAD_ITS ---
STUDY: X-RAY CHEST REASON FOR EXAM: Female, 65 years old. Asthma TECHNIQUE: Single AP portable view of the chest. COMPARISON: Comparison is made with prior study 01/23/2021. FINDINGS: The lungs are clear and expanded. There is no demonstrated pleural abnormality. Normal size heart. Normal mediastinum and mary. Normal visualized pulmonary arteries. There is atherosclerotic tortuosity of the aortic arch and descending thoracic aorta. There are diffuse degenerative changes of the visualized thoracic spine. Normal visualized ribs, clavicles, and shoulders. There is no demonstrated abnormality of the visualized soft tissue structures of the upper abdomen. RAD/Chest 1 View (Portable) IMPRESSION: No acute abnormality is seen. Electronically Signed: Gal Aparicio MD at 11:53 EDT , Service support ,
--- NOTE | 2021-02-12 10:35 | EDS_ITS ---
HPI History of Present Illness Chief Complaint: Shortness of Breath Informant: patient Narrative Narrative: 65-year-old female presents the emergency room with dyspnea. Patient states she has a history of bronchial asthma and that about a week and a half ago she developed cough and runny nose. She states that she feels very wheezy. She notes her albuterol MDI has not been helping but her albuterol aerosols have. She states that she believes that she needs some prednisone. She denies any fevers. No vomiting or diarrhea. Cough has been nonproductive. She sees Dr. Martin for pulmonology. [facility] Medical History Allergies Arthritis Asthma Back problem Cataract Essential hypertension External hemorrhoid, thrombosed Fibrocystic breast disease Fibrocystic breast disease Fibromyalgia GERD (gastroesophageal reflux disease) Hearing problem Heart murmur Sciatica Home Medications hydrochlorothiazide 12.5 mg capsule 12.5 mg PO DAILY 30 Days #30 cap 05/02/18 [History Last Taken 06/12/19 09:00] losartan 25 mg tablet 25 mg PO DAILY 30 Days #30 tab 05/02/18 [History Last T aken 06/12/19 09:00] citalopram 40 mg tablet 40 mg PO DAILY 11/07/18 [History Last Taken 06/12/19 09:00] gabapentin 600 mg tablet 600 mg PO QHS PRN 11/07/18 [History Last Taken Unknown] gabapentin 100 mg PO DAILY PRN 01/06/19 [History Last Taken Unknown] albuterol sulfate 2.5 mg INHALATION Q4H PRN #180 ml 02/07/19 [Rx Last Taken Unknown] cholecalciferol (vitamin D3) 2,000 unit PO DAILY 04/02/19 [History Last Taken Unknown] albuterol sulfate 90 mcg/actuation aerosol inhaler 2 puff INHALATION Q4H PRN #1 device 07/11/19 [Rx Last Taken Unknown] pantoprazole 40 mg PO DAILY 09/12/19 [History Last Taken Unknown] aspirin 81 mg PO DAILY@0800 05/04/20 [History Last Taken Unknown] dicyclomine 20 mg PO TIDAC #20 cap 05/04/20 [Rx Last Taken Unknown] fluticasone propionate 1 spray INTRANASAL BID PRN 05/04/20 [History Last Taken Unknown] naproxen 500 mg PO BID PRN #20 tab 05/20/20 [Rx Last Taken Unknown] montelukast 10 mg tablet 10 mg PO DAILY 07/29/20 [History Last Taken Unknown] metoprolol succinate 50 mg tablet,extended release 24 hr 50 mg PO DAILY #30 tab 08/18/20 [Rx Last Taken Unknown] prednisone See Rx Instructions .ROUTE .COMPLEX #24 tablet 02/12/21 [Rx Last Taken Unknown] Allergy/AdvReac Type Severity Reaction Status Date / Time apple Allergy Hives Verified 02/12/21 10:26 banana Allergy Hives Verified 02/12/21 10:26 carrot Allergy Hives Verified 02/12/21 10:26 pineapple Allergy Itching Verified 02/12/21 10:26 shrimp Allergy Anaphylaxis Verified 02/12/21 10:26 amoxicillin AdvReac YEAST Verified 02/12/21 10:26 INFECTION lobster Allergy Anaphylaxis Uncoded 02/12/21 10:26 Family History Sister Breast cancer Mother Heart disease Enlarged heart Grandmother Enlarged heart Other Anxiety and depression Arthritis History of blood clots Hypertension Surgical History H/O tubal ligation History of removal of cyst Hx of appendectomy Social History Smoking Status: Former smoker quit date: 04/11/93 alcohol intake: current alcohol intake frequency: holidays/special occasions only Alcohol type: wine details: social substance use type: does not use caffeine: No additional social history: Does take aspirin daily Does not take Ibuprofen ROS ROS ED Constitutional Constitutional ED: Reports chills; Denies fever(s) or weight loss Eyes Eyes: Denies change in vision or diplopia ENT ENT ED: Reports rhinorrhea; Denies ear pain or sore throat Cardiovascular Cardiovascular: Denies chest pain, orthopnea, palpitations or racing heartbeat Respiratory/Chest Respiratory/Chest: Reports cough, dyspnea and dyspnea on exertion; Denies orthopnea Gastrointestinal Gastrointestinal: Denies abdominal pain, diarrhea, nausea or vomiting Genitourinary Genitourinary ED: Denies dysuria, hematuria or urinary frequency Musculoskeletal Musculoskeletal: Denies arthralgias or myalgias Integumentary Denies abscess or rash Neurologic Neurologic: Denies headache(s) or weakness Psychiatric Psychiatric: Denies anxiety, depression, suicidal ideation or suicidal thoughts Endocrine Endocrinology: Denies polydipsia, polyphagia or polyuria Allergic/Immunologic Allergic/Immunologic ED: Denies mouth swelling, tongue swelling or urticaria EXAM Physical Exam Const Vital Signs: 02/12/21 10:24 02/12/21 11:02 02/12/21 11:03 Temperature 97.1 F L Temperature Source Temporal Pulse Rate 57 L 63 Respiratory Rate 16 16 Respiratory Effort Short of Breath Respiratory Pattern Normal Blood Pressure 155/58 H Blood Pressure Mean 90 Pulse Ox 100 Oxygen Delivery Method Room Air Positive well nourished and well developed General Appearance ED: well developed HEENT Reports normocephalic, head/scalp atraumatic, TM's clear and moist mucous membranes atraumatic; Negative for tenderness Tympanic Membrane ED: Yes TM's clear Eyes PERRL and EOMs intact bilaterally Neck no lymphadenopathy, supple and no JVD Resp normal respiratory effort Auscultation: wheezes expiratory wheezes Cardio regular rate, regular rhythm and no murmurs GI normal to inspection, nondistended, normoactive bowel sounds and non-tender Palpation: soft Back/Spine no CVA tenderness and normal ROM Extremity normal to inspection General Extremety ED: Negative for edema General Extremity: Negative for edema Neuro oriented x3 and CN's II-XII intact bilaterally Sensorium / Orientation: alert Motor Exam: strength 5/5 throughout Psych mental status grossly normal Mood & Affect: Negative for depressed or tearful Skin no rashes or lesions noted and no wounds MDM MDM MDM Narrative Medical decision making narrative: My interpretation of the chest x-ray is no acute process. Rapid Covid is negative. Patient received a DuoNeb as well as prednisone. Patient feels improved. She has enough albuterol solution at home as well as refills I will write for tapering prednisone. 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 Radiography Diagnostic Testing: Clinical Impression(s) from Imaging Studies Chest X-Ray 02/12/21 10:33 IMPRESSION: No acute abnormality is seen. Electronically Signed: Gal Aparicio MD at 11:53 EDT , Service support , Discharge Plan Triage Chief Complaint: Shortness of Breath ED Provider: uRben Robles Dx/Rx/DC Orders Clinical Impression: Acute bronchitis with bronchospasm Instructions: ED Bronchitis with Wheezing (Adult) Prescriptions: New prednisone 20 MG tablet See Rx Instructions .ROUTE .COMPLEX Qty: 24 RF: 0 No Action losartan 25 mg tablet 25 mg PO DAILY 30 Days Qty: 30 RF: 0 hydrochlorothiazide 12.5 mg capsule 12.5 mg PO DAILY 30 Days Qty: 30 RF: 0 citalopram [Celexa] 40 mg tablet 40 mg PO DAILY RF: 0 gabapentin 600 mg tablet 600 mg PO QHS PRN (Reason: other) RF: 0 albuterol sulfate 2.5 mg /3 mL (0.083 %) solution for nebulization 2.5 mg INHALATION Q4H PRN (Reason: Sob &/Or Wheezing) Qty: 180 RF: 3 albuterol sulfate [Ventolin HFA] 90 mcg/actuation HFA aerosol inhaler 2 puff INHALATION Q4H PRN (Reason: shortness of breath or wheezing) Qty: 1 RF: 3 montelukast [Singulair] 10 mg tablet 10 mg PO DAILY RF: 0 gabapentin 100 MG capsule 100 mg PO DAILY PRN (Reason: Pain Score 1-10/10) RF: 0 cholecalciferol (vitamin D3) 2,000 UNIT capsule 2,000 unit PO DAILY RF: 0 pantoprazole 40 MG tablet,delayed release (DR/EC) 40 mg PO DAILY RF: 0 aspirin 81 MG tablet,chewable 81 mg PO DAILY@0800 RF: 0 fluticasone propionate 16 GM spray,suspension 1 spray INTRANASAL BID PRN (Reason: Congestion) RF: 0 dicyclomine 10 MG capsule 20 mg PO TIDAC Qty: 20 RF: 0 naproxen 500 MG tablet 500 mg PO BID PRN Qty: 20 RF: 0 metoprolol succinate 50 mg tablet extended release 24 hr 50 mg PO DAILY Qty: 30 RF: 11 Primary Care Provider: Alaina Tariq Referrals: Alaina Tariq MD [Primary Care Provider] - As Needed Disposition Disposition: Home, Self Care
[2021-02-12] MEDS: Albuterol 2.5 MG/3 ML VIAL.NEB. INHALATION (10:42)
[2021-02-12] MEDS: Ipratropium/Albuterol Sulfate 3 ML AMPUL.NEB INHALATION (10:42)
[2021-02-12 11:03] VITALS: PULSE 63; RESP 16
[2021-02-12] MEDS: predniSONE 20 MG Tablet 60 MG PO (11:07)
[2021-02-12 12:17] VITALS: O2SAT 97
== END 2021-02-12 12:21 | disposition home or self-care (01) ==
PROVIDERS: Emergency Provider Emergency Medicine; PCP Internal Medicine
DX: J20.9 Acute bronchitis, unspecified (principal); M79.7 Fibromyalgia; K21.9 Gastro-esophageal reflux disease without esophagitis; Z87.891 Personal history of nicotine dependence; Z79.82 Long term (current) use of aspirin; J45.909 Unspecified asthma, uncomplicated; Z79.52 Long term (current) use of systemic steroids
CPT/HCPCS: 71045; 87426; 94640; 99282

== ENCOUNTER 2021-04-10 09:11 | Emergency (ER) | payer MEDICARE, SELFPAY ==
[2021-04-10 09:12] VITALS: BP 148/69; PULSE 73; RESP 16; TEMP 36; O2SAT 98; BMI 33.0
--- NOTE | 2021-04-10 09:31 | RAD_ITS ---
STUDY: X-RAY CHEST REASON FOR EXAM: Female, 65 years old. cough TECHNIQUE: AP COMPARISON: None. FINDINGS: The lungs are clear and expanded. There is no demonstrated pleural abnormality. Normal size heart. Normal mediastinum and mary. Normal visualized pulmonary arteries. Normal visualized aortic arch and descending thoracic aorta. Normal visualized thoracic spine. Normal visualized ribs, clavicles, and shoulders. There is no demonstrated abnormality of the visualized soft tissue structures of the upper abdomen. RAD/Chest 1 View (Portable) IMPRESSION: No airspace consolidation or pleural effusion. Electronically Signed: Aron Edwards MD ([place]) at 9:55 EST , Service support ,
--- NOTE | 2021-04-10 09:57 | EX.ED.VIS.UR ---
HPI HPI - URI History of Present Illness Chief Complaint: Shortness of Breath Detail of Chief Complaint: Cough and sore throat and not feeling well x3 days Informant: patient Narrative Narrative: Patient presents to the emergency department with complaint of cough and sore throat and headache that started 3 days ago. Patient states that she has had some friends from [place] that have come down with [place]. Patient is not immunized against Covid. She has history of hypertension. She denies any shortness of breath. She denies chest pain. ROS ROS ED Constitutional Constitutional ED: Reports systems reviewed and no addt'l complaints, except as documented; Denies body ache(s), change in weight or chills Eyes Eyes: Denies acute decrease in peripheral vision, change in vision, double vision or loss of vision ENT ENT ED: Reports none and sore throat; Denies ear pain, lip swelling, loss taste/smell, neck pain or otalgia Cardiovascular Cardiovascular: Reports none; Denies abdominal pain, chest pain with activity, leg edema, lightheadedness, palpitations, rapid heart rate or syncope Respiratory/Chest Respiratory/Chest: Reports none and cough; Denies change in mental status, dry cough, dyspnea, hemoptysis, shortness of breath at rest or shortness of breath with exertion Gastrointestinal Gastrointestinal: Reports none; Denies abdominal pain, change in stool character, diarrhea, hematemesis, hematochezia, melena, rectal bleeding or vomiting Genitourinary Genitourinary ED: Reports none; Denies abdominal discomfort, anuria, dysuria, genital pain or polyuria Musculoskeletal Musculoskeletal: Reports none; Denies arthralgias, back pain, difficulty walking, extremity pain, muscle weakness or myalgias Integumentary Reports none; Denies abscess or rash Neurologic Neurologic: Reports none and headache(s); Denies abnormal gait, confusion, focal weakness, frequent falls, loss of vision, numbness, paresthesias, radicular pain, vertigo or weakness Psychiatric Psychiatric: Reports systems reviewed and no addt'l complaints, except as documented and none; Denies behavioral changes, confusion, difficulty concentrating, hallucinations, suicidal ideation, tactile hallucinations or visual hallucinations Endocrine Endocrinology: Denies none, cold intolerance, excessive sweating, fatigue or heat intolerance Hematologic/Lymphatic Hematologic/Lymphatic: Reports none; Denies anemia, easy bleeding or easy bruising Allergic/Immunologic Allergic/Immunologic ED: Denies as per HPI, none, lip swelling, mouth swelling, throat swelling, tongue swelling or hives PFSH PFSH Medical History Allergies Arthritis Asthma Back problem Cataract Essential hypertension External hemorrhoid, thrombosed Fibrocystic breast disease Fibrocystic breast disease Fibromyalgia GERD (gastroesophageal reflux disease) Hearing problem Heart murmur Sciatica Home Medications hydrochlorothiazide 12.5 mg capsule 12.5 mg PO DAILY 30 Days #30 cap 05/02/18 [History Last Taken 06/12/19 09:00] losartan 25 mg tablet 25 mg PO DAILY 30 Days #30 tab 05/02/18 [History Last Taken 06/12/19 09:00] citalopram 40 mg tablet 40 mg PO DAILY 11/07/18 [History Last Taken 06/12/19 09:00] gabapentin 600 mg tablet 600 mg PO QHS PRN 11/07/18 [History Last Taken Unknown] gabapentin 100 mg PO DAILY PRN 01/06/19 [History Last Taken Unknown] albuterol sulfate 2.5 mg INHALATION Q4H PRN #180 ml 02/07/19 [Rx Last Taken Unknown] cholecalciferol (vitamin D3) 2,000 unit PO DAILY 04/02/19 [History Last Taken Unknown] albuterol sulfate 90 mcg/actuation aerosol inhaler 2 puff INHALATION Q4H PRN #1 device 07/11/19 [Rx Last Taken Unknown] pantoprazole 40 mg PO DAILY 09/12/19 [History Last Taken Unknown] aspirin 81 mg PO DAILY@0800 05/04/20 [History Last Taken Unknown] dicyclomine 20 mg PO TIDAC #20 cap 05/04/20 [Rx Last Taken Unknown] fluticasone propionate 1 spray INTRANASAL BID PRN 05/04/20 [History Last Taken Unknown] naproxen 500 mg PO BID PRN #20 tab 05/20/20 [Rx Last Taken Unknown] montelukast 10 mg tablet 10 mg PO DAILY 07/29/20 [History Last Taken Unknown] metoprolol succinate 50 mg tablet,extended release 24 hr 50 mg PO DAILY #30 tab 08/18/20 [Rx Last Taken Unknown] prednisone See Rx Instructions .ROUTE .COMPLEX #24 tablet 02/12/21 [Rx Last Taken Unknown] budesonide-formoterol HFA 160 mcg-4.5 mcg/actuation aerosol inhaler 2 puff INHALATION BID #1 ea 03/31/21 [Rx Last Taken Unknown] Allergy/AdvReac Type Severity Reaction Status Date / Time apple Allergy Hives Verified 04/10/21 09:15 banana Allergy Hives Verified 04/10/21 09:15 carrot Allergy Hives Verified 04/10/21 09:15 pineapple Allergy Itching Verified 04/10/21 09:15 shrimp Allergy Anaphylaxis Verified 04/10/21 09:15 amoxicillin AdvReac YEAST Verified 04/10/21 09:15 INFECTION lobster Allergy Anaphylaxis Uncoded 04/10/21 09:15 Family History Sister Breast cancer Mother Heart disease Enlarged heart Grandmother Enlarged heart Other Anxiety and depression Arthritis History of blood clots Hypertension Surgical History H/O tubal ligation History of removal of cyst Hx of appendectomy Social History Smoking Status: Former smoker quit date: 04/11/93 alcohol intake: current alcohol intake frequency: holidays/special occasions only Alcohol type: wine details: social substance use type: does not use caffeine: No additional social history: Does take aspirin daily Does not take Ibuprofen EXAM Physical Exam Const Vital Signs: 04/10/21 09:12 Temperature 96.8 F L Temperature Source Temporal Pulse Rate 73 Respiratory Rate 16 Blood Pressure 148/69 H Blood Pressure Mean 95 Pulse Ox 98 Oxygen Delivery Method Room Air Positive well nourished and well developed General Appearance ED: well developed and NAD HEENT Reports TM's clear and moist mucous membranes normocephalic and atraumatic; Negative for trauma or tenderness Tympanic Membrane ED: Yes TM's clear Eyes PERRL and EOMs intact bilaterally General Eye ED: Negative for pale conjunctiva or scleral icterus Neck no lymphadenopathy, supple and no JVD General: Negative for tenderness Chest Wall inspection of chest normal and palpation of chest normal Chest: Negative for tenderness Resp normal respiratory effort and clear to auscultation bilaterally Effort and Inspection: Negative for respiratory distress or pain with movement Auscultation: Negative for rhonchi, wheezes or diminished lung sounds Cardio regular rate, regular rhythm, S1 normal heart sound, S2 normal heart sound and no murmurs Peripheral Pulses: pulses 2+ throughout GI normal to inspection, nondistended, normoactive bowel sounds, soft to palpation, non-tender, non-distended and no masses Back/Spine no CVA tenderness and no thoracic nor lumbar tenderness Extremity normal to inspection General Extremety ED: Negative for edema General Extremity: Negative for edema Neuro oriented x3, CN's II-XII intact bilaterally, no sensory deficits noted and gait normal Sensorium / Orientation: awake, alert, oriented to person, oriented to place and oriented to time Motor Exam: strength 5/5 throughout and strength abnormal Psych mental status grossly normal Skin no rashes or lesions noted and no wounds MDM MDM MDM Narrative Medical decision making narrative: Patient had Covid screen and chest x-ray obtained via protocol by nursing staff due to the busy department. Patient did come back positive for Covid. Chest x-ray was unremarkable. At this point patient is willing to have monoclonal antibody infusion and I will refer her for this. Patient advised to follow-up with her primary care physician 5 to 7 days. She is to return if increasing shortness of breath or conditions worsen anyway. Lab Data Attestation: I reviewed the patient's lab results. Radiography Diagnostic Testing: Clinical Impression(s) from Imaging Studies Chest X-Ray 04/10/21 09:31 IMPRESSION: No airspace consolidation or pleural effusion. Electronically Signed: Aron Edwards MD ([place]) at 9:55 EST , Service support , 1 view chest x-ray obtained interpreted by myself as no acute disease process. Radiology in agreement. Discharge Plan Triage Chief Complaint: Shortness of Breath ED Provider: Junito Gurrola Dx/Rx/DC Orders Clinical Impression: COVID-19 Instructions: ED - COVID Monoclonal AB Infusion ..., Caring for Someone Who Has COVID-19 Prescriptions: No Action losartan 25 mg tablet 25 mg PO DAILY 30 Days Qty: 30 RF: 0 hydrochlorothiazide 12.5 mg capsule 12.5 mg PO DAILY 30 Days Qty: 30 RF: 0 citalopram [Celexa] 40 mg tablet 40 mg PO DAILY RF: 0 gabapentin 600 mg tablet 600 mg PO QHS PRN (Reason: other) RF: 0 albuterol sulfate 2.5 mg /3 mL (0.083 %) solution for nebulization 2.5 mg INHALATION Q4H PRN (Reason: Sob &/Or Wheezing) Qty: 180 RF: 3 albuterol sulfate [Ventolin HFA] 90 mcg/actuation HFA aerosol inhaler 2 puff INHALATION Q4H PRN (Reason: shortness of breath or wheezing) Qty: 1 RF: 3 budesonide-formoterol [Symbicort] 160-4.5 mcg/actuation HFA aerosol inhaler 2 puff inhalation BID Qty: 1 RF: 3 montelukast [Singulair] 10 mg tablet 10 mg PO DAILY RF: 0 gabapentin 100 MG capsule 100 mg PO DAILY PRN (Reason: Pain Score 1-10/10) RF: 0 cholecalciferol (vitamin D3) 2,000 UNIT capsule 2,000 unit PO DAILY RF: 0 pantoprazole 40 MG tablet,delayed release (DR/EC) 40 mg PO DAILY RF: 0 aspirin 81 MG tablet,chewable 81 mg PO DAILY@0800 RF: 0 fluticasone propionate 16 GM spray,suspension 1 spray INTRANASAL BID PRN (Reason: Congestion) RF: 0 dicyclomine 10 MG capsule 20 mg PO TIDAC Qty: 20 RF: 0 naproxen 500 MG tablet 500 mg PO BID PRN Qty: 20 RF: 0 prednisone 20 MG tablet See Rx Instructions .ROUTE .COMPLEX Qty: 24 RF: 0 metoprolol succinate 50 mg tablet extended release 24 hr 50 mg PO DAILY Qty: 30 RF: 11 Other Ambulatory Orders: COVID Outpatient Monoclonal Antibody Referral (Routine) Timeframe: 1 Day Facility: [facility] - Location: [facility] Ordered By: Dr. Junito Gurrola Primary Care Provider: Alaina Tariq Referrals: Alaina Tariq MD [Primary Care Provider] - Disposition Disposition: Home, Self Care
[2021-04-10 10:24] VITALS: PULSE 88; RESP 16; O2SAT 96
== END 2021-04-10 10:25 | disposition home or self-care (01) ==
LOC: ED 10:18
PROVIDERS: Emergency Provider Emergency Medicine; PCP Internal Medicine
DX: U07.1 COVID-19 (principal); I10 Essential (primary) hypertension; J45.909 Unspecified asthma, uncomplicated; K21.9 Gastro-esophageal reflux disease without esophagitis; M79.7 Fibromyalgia; M19.90 Unspecified osteoarthritis, unspecified site; Z79.82 Long term (current) use of aspirin; Z79.899 Other long term (current) drug therapy; Z87.891 Personal history of nicotine dependence
CPT/HCPCS: 71045; 87426; 99282

== ENCOUNTER 2021-04-19 10:59 | Inpatient (IN) | payer MEDICARE, SELFPAY ==
[2021-04-19] VITALS (12 sets, daily range): BP systolic 128–157; BP diastolic 70–75; PULSE 51–88; RESP 18–20; TEMP 36.3–36.6; O2SAT 86–100; BMI 32.3; BMI 33.5
--- NOTE | 2021-04-19 11:21 | EKG12_ITS ---
Test Reason : SOB Blood Pressure : / mmHG Vent. Rate : 074 BPM Atrial Rate : 074 BPM P-R Int : 174 ms QRS Dur : 084 ms QT Int : 394 ms P-R-T Axes : 050 074 056 degrees QTc Int : 437 ms Normal sinus rhythm T wave abnormality, consider anterior ischemia Abnormal ECG Confirmed by LAUREN SUÁREZ, PANCHITO ([id number]), metropolitan editor SAGRARIO SNOW ([id number]) on 04/21/2021 1:26:08 PM Referred By: MARIANNA Confirmed By:PANCHITO AGUILAR MD
--- NOTE | 2021-04-19 11:22 | EDS_ITS ---
HPI History of Present Illness Chief Complaint: Weakness Detail of Chief Complaint: Generalized weakness and COVID-19 infection Informant: patient Narrative Narrative: Patient presents to the emergency department complaint generalized weakness. Patient states she started having vomiting and diarrhea about 4 days ago. Patient was diagnosed with COVID-19 this emergency department on 04/10/2021. Patient was referred for monoclonal antibodies at that time but apparently did not have the infusion. Patient states that her also has COVID and is doing well. Patient was not vaccinated against COVID-19. Prior similar symptoms: No PFSH PFSH Medical History (Reviewed 03/31/21 @ 09:05 by Seema Scott RETAIL DISTRICT MANAGER, RETAIL DISTRICT MANAGER-C) Allergies Arthritis Asthma Back problem Cataract Essential hypertension External hemorrhoid, thrombosed Fibrocystic breast disease Fibrocystic breast disease Fibromyalgia GERD (gastroesophageal reflux disease) Hearing problem Heart murmur Sciatica Home Medications hydrochlorothiazide 12.5 mg capsule 12.5 mg PO DAILY 30 Days #30 cap 05/02/18 [History Last Taken 06/12/19 09:00] losartan 25 mg tablet 25 mg PO DAILY 30 Days #30 tab 05/02/18 [History Last Taken 06/12/19 09:00] citalopram 40 mg tablet 40 mg PO DAILY 11/07/18 [History Last Taken 06/12/19 09:00] gabapentin 600 mg tablet 600 mg PO QHS PRN 11/07/18 [History Last Taken Unknown] gabapentin 100 mg PO DAILY PRN 01/06/19 [History Last Taken Unknown] albuterol sulfate 2.5 mg INHALATION Q4H PRN #180 ml 02/07/19 [Rx Last Taken Unknown] cholecalciferol (vitamin D3) 2,000 unit PO DAILY 04/02/19 [History Last Taken Unknown] albuterol sulfate 90 mcg/actuation aerosol inhaler 2 puff INHALATION Q4H PRN #1 device 07/11/19 [Rx Last Taken Unknown] pantoprazole 40 mg PO DAILY 09/12/19 [History Last Taken Unknown] dicyclomine 20 mg PO TIDAC #20 cap 05/04/20 [Rx Last Taken Unknown] fluticasone propionate 1 spray INTRANASAL BID PRN 05/04/20 [History Last Taken Unknown] naproxen 500 mg PO BID PRN #20 tab 05/20/20 [Rx Last Taken Unknown] montelukast 10 mg tablet 10 mg PO DAILY 07/29/20 [History Last Taken Unknown] metoprolol succinate 50 mg tablet,extended release 24 hr 50 mg PO DAILY #30 tab 08/18/20 [Rx Last Taken Unknown] budesonide-formoterol HFA 160 mcg-4.5 mcg/actuation aerosol inhaler 2 puff INH ALATION BID #1 ea 03/31/21 [Rx Last Taken Unknown] Allergy/AdvReac Type Severity Reaction Status Date / Time apple Allergy Hives Verified 04/19/21 11:01 banana Allergy Hives Verified 04/19/21 11:01 carrot Allergy Hives Verified 04/19/21 11:01 pineapple Allergy Itching Verified 04/19/21 11:01 shrimp Allergy Anaphylaxis Verified 04/19/21 11:01 amoxicillin AdvReac YEAST Verified 04/19/21 11:01 INFECTION lobster Allergy Anaphylaxis Uncoded 04/19/21 11:01 Family History (Reviewed 03/31/21 @ 09:05 by Seema Scott RETAIL DISTRICT MANAGER, RETAIL DISTRICT MANAGER-C) Sister Breast cancer Mother Heart disease Enlarged heart Grandmother Enlarged heart Other Anxiety and depression Arthritis History of blood clots Hypertension Surgical History (Reviewed 03/31/21 @ 09:05 by Seema Scott RETAIL DISTRICT MANAGER, RETAIL DISTRICT MANAGER-C) H/O tubal ligation History of removal of cyst Hx of appendectomy Social History Smoking Status: Former smoker quit date: 04/11/93 alcohol intake: current alcohol intake frequency: holidays/special occasions only Alcohol type: wine details: social substance use type: does not use caffeine: No additional social history: Does take aspirin daily Does not take Ibuprofen ROS ROS ED Constitutional Constitutional ED: Reports systems reviewed and no addt'l complaints, except as documented; Denies body ache(s), change in weight or chills Eyes Eyes: Denies acute decrease in peripheral vision, change in vision, double vision or loss of vision ENT ENT ED: Reports none; Denies ear pain, lip swelling, loss taste/smell, neck pain, otalgia or sore throat Cardiovascular Cardiovascular: Reports none; Denies abdominal pain, chest pain with activity, leg edema, lightheadedness, palpitations, rapid heart rate or syncope Respiratory/Chest Respiratory/Chest: Reports none; Denies change in mental status, dry cough, dyspnea, hemoptysis, shortness of breath at rest or shortness of breath with exertion Gastrointestinal Gastrointestinal: Reports none, diarrhea, nausea and vomiting; Denies abdominal pain, change in stool character, hematemesis, hematochezia, melena or rectal bleeding Genitourinary Genitourinary ED: Reports none; Denies abdominal discomfort, anuria, dysuria, genital pain or polyuria Musculoskeletal Musculoskeletal: Reports none and myalgias; Denies arthralgias, back pain, difficulty walking, extremity pain or muscle weakness Integumentary Reports none; Denies abscess or rash Neurologic Neurologic: Reports none and weakness; Denies abnormal gait, confusion, focal weakness, frequent falls, headache(s), loss of vision, numbness, paresthesias, radicular pain or vertigo Psychiatric Psychiatric: Reports systems reviewed and no addt'l complaints, except as documented and none; Denies behavioral changes, confusion, difficulty concent rating, hallucinations, suicidal ideation, tactile hallucinations or visual hallucinations Endocrine Endocrinology: Denies none, cold intolerance, excessive sweating, fatigue or heat intolerance Hematologic/Lymphatic Hematologic/Lymphatic: Reports none; Denies anemia, easy bleeding or easy bruising Allergic/Immunologic Allergic/Immunologic ED: Denies as per HPI, none, lip swelling, mouth swelling, throat swelling, tongue swelling or hives EXAM Physical Exam Const Vital Signs: 04/19/21 11:01 04/19/21 11:03 04/19/21 11:22 Temperature 97.9 F 97.9 F Temperature Source Temporal Temporal Pulse Rate 88 85 Respiratory Rate 20 H 20 H Respiratory Effort Short of Breath Respiratory Pattern Tachypnea Blood Pressure 157/75 H 157/75 H Blood Pressure Mean 102 102 Pulse Ox 86 95 98 Oxygen Delivery Method Room Air Nasal Cannula Nasal Cannula Oxygen Flow Rate (L/min) 2 2 04/19/21 12:40 04/19/21 12:49 Temperature 97.9 F Temperature Source Temporal Pulse Rate 69 Respiratory Rate 19 H Respiratory Effort Respiratory Pattern Blood Pressure 144/70 H Blood Pressure Mean 94 Pulse Ox 96 98 Oxygen Delivery Method Nasal Cannula Nasal Cannula Oxygen Flow Rate (L/min) 2 3 Positive well nourished and well developed General Appearance ED: well developed and NAD HEENT Reports TM's clear and dry mucous membranes normocephalic and atraumatic; Negative for trauma or tenderness Tympanic Membrane ED: Yes TM's clear Mouth ED: Yes dry mucous membranes Mouth: dry mucous membranes Eyes PERRL and EOMs intact bilaterally General Eye ED: Negative for pale conjunctiva or scleral icterus Neck no lymphadenopathy, supple and no JVD General: Negative for tenderness Chest Wall inspection of chest normal and palpation of chest normal Chest: Negative for tenderness Resp normal respiratory effort and clear to auscultation bilaterally Effort and Inspection: Negative for respiratory distress or pain with movement Auscultation: Negative for rhonchi, wheezes or diminished lung sounds Cardio regular rate, regular rhythm, S1 normal heart sound, S2 normal heart sound and no murmurs Peripheral Pulses: pulses 2+ throughout GI normal to inspection, nondistended, normoactive bowel sounds, soft to palpation, non-tender, non-distended and no masses Back/Spine no CVA tenderness and no thoracic nor lumbar tenderness Extremity normal to inspection General Extremety ED: Negative for edema General Extremity: Negative for edema Neuro oriented x3, CN's II-XII intact bilaterally, no sensory deficits noted and gait normal Sensorium / Orientation: awake, alert, oriented to person, oriented to place and oriented to time Motor Exam: strength 5/5 throughout and strength abnormal Psych mental status grossly normal Skin no rashes or lesions noted and no wounds MDM MDM MDM Narrative Medical decision making narrative: IV line established on arrival. Patient placed on nasal cannula O2. With ambulation to bathroom on 2 L her O2 sat dropped to 80%. When she was placed back on 4 L in her room took several minutes for her oxygen level to get up above 90%. CTA of the chest was negative for PE however does show diffuse multifocal COVID infiltrates. Patient was started on Decadron IV. Case will be discussed with hospitalist evaluate for admission for COVID pneumonitis with hypoxemia Lab Data Attestation: I reviewed the patient's lab results. Labs: Laboratory Results - last 24 hr 04/19/21 04/19/21 04/19/21 11:30 11:30 11:30 WBC 4.2 L RBC 4.09 L Hgb 12.9 Hct 37.8 MCV 92.4 MCH 31.5 MCHC 34.1 RDW Std Deviation 39.8 RDW Coeff of Domi 11.7 Plt Count 166 MPV 8.8 Immature Gran % (Auto) 0.200 Neut % (Auto) 67.4 Lymph % (Auto) 25.1 [place] % (Auto) 6.9 Eos % (Auto) 0.2 Baso % (Auto) 0.2 Absolute Neuts (auto) 2.8 Absolute Lymphs (auto) 1.05 Nucleated RBC % 0 Atypical Lymphocytes 1+ D-Dimer Quant (PE/DVT) 1.89 H* Sodium 138 Potassium 3.0 L Chloride 98 Carbon Dioxide 30.0 Anion Gap 10 BUN 7 Creatinine 0.69 Estim Creat Clear Calc 92.06 Est GFR (MDRD) Af Amer 110 Est GFR (MDRD) Non-Af 91 BUN/Creatinine Ratio 10.1 Glucose 128 H Calcium 8.5 Troponin I High Sens 24 Urine Color Urine Clarity Urine pH Ur Specific [place] Urine Protein Urine Glucose (UA) Urine Ketones Urine Occult Blood Urine Nitrite Urine Bilirubin Urine Urobilinogen Ur Leukocyte Esterase Urine RBC Urine WBC Ur Squamous Epith Cells Urine Bacteria Urine Mucus 04/19/21 12:45 WBC RBC Hgb Hct MCV MCH MCHC RDW Std Deviation RDW Coeff of Domi Plt Count MPV Immature Gran % (Auto) Neut % (Auto) Lymph % (Auto) [place] % (Auto) Eos % (Auto) Baso % (Auto) Absolute Neuts (auto) Absolute Lymphs (auto) Nucleated RBC % Atypical Lymphocytes D-Dimer Quant (PE/DVT) Sodium Potassium Chloride Carbon Dioxide Anion Gap BUN Creatinine Estim Creat Clear Calc Est GFR (MDRD) Af Amer Est GFR (MDRD) Non-Af BUN/Creatinine Ratio Glucose Calcium Troponin I High Sens Urine Color Straw Urine Clarity Clear Urine pH 7.0 Ur Specific [place] 1.010 Urine Protein 30 H Urine Glucose (UA) Normal Urine Ketones 15 H Urine Occult Blood 10 H Urine Nitrite Negative Urine Bilirubin Negative Urine Urobilinogen Normal Ur Leukocyte Esterase Negative Urine RBC 0 SEEN Urine WBC 0 SEEN Ur Squamous Epith Cells 0 SEEN Urine Bacteria 0 SEEN Urine Mucus 0 SEEN Radiography Chest X-Ray - ED: 1 View Diagnostic Testing: Clinical Impression(s) from Imaging Studies Chest CTA 04/19/21 11:49 IMPRESSION: No evidence of central pulmonary embolism. Limited evaluation of the peripheral branches. Extensive diffuse patchy bilateral infiltrates consistent with multifocal pneumonia including Covid 19. Electronically Signed: Pola Preston, at 13:12 EST Tel , Service support , Chest X-Ray 04/19/21 12:00 IMPRESSION: Bilateral infiltrates concerning for multifocal pneumonia. Electronically Signed: Pola Preston, at 12:45 EST Tel , Service support , 1 view chest x-ray obtained interpreted by myself as bilateral infiltrates. Radiology in agreement. EKG Initial EKG: Comments: Sinus rhythm with a rate of [address] changes noted Discharge Plan Triage Chief Complaint: Weakness ED Provider: Junito Gurrola Dx/Rx/DC Orders Clinical Impression: COVID-19, Hypoxemia Prescriptions: No Action losartan 25 mg tablet 25 mg PO DAILY 30 Days Qty: 30 RF: 0 hydrochlorothiazide 12.5 mg capsule 12.5 mg PO DAILY 30 Days Qty: 30 RF: 0 citalopram [Celexa] 40 mg tablet 40 mg PO DAILY RF: 0 gabapentin 600 mg tablet 600 mg PO QHS PRN (Reason: other) RF: 0 albuterol sulfate 2.5 mg /3 mL (0.083 %) solution for nebulization 2.5 mg INHALATION Q4H PRN (Reason: Sob &/Or Wheezing) Qty: 180 RF: 3 albuterol sulfate [Ventolin HFA] 90 mcg/actuation HFA aerosol inhaler 2 puff INHALATION Q4H PRN (Reason: shortness of breath or wheezing) Qty: 1 RF: 3 budesonide-formoterol [Symbicort] 160-4.5 mcg/actuation HFA aerosol inhaler 2 puff inhalation BID Qty: 1 RF: 3 montelukast [Singulair] 10 mg tablet 10 mg PO DAILY RF: 0 gabapentin 100 MG capsule 100 mg PO DAILY PRN (Reason: Pain Score 1-10/10) RF: 0 cholecalciferol (vitamin D3) 2,000 UNIT capsule 2,000 unit PO DAILY RF: 0 pantoprazole 40 MG tablet,delayed release (DR/EC) 40 mg PO DAILY RF: 0 fluticasone propionate 16 GM spray,suspension 1 spray INTRANASAL BID PRN (Reason: Congestion) RF: 0 dicyclomine 10 MG capsule 20 mg PO TIDAC Qty: 20 RF: 0 naproxen 500 MG tablet 500 mg PO BID PRN Qty: 20 RF: 0 metoprolol succinate 50 mg tablet extended release 24 hr 50 mg PO DAILY Qty: 30 RF: 11 Primary Care Provider: Alaina Tariq Referrals: Alaina Tariq MD [Primary Care Provider] - Disposition Disposition: [facility]
[2021-04-19] MEDS: Ondansetron 4 MG/2 ML Vial IV (11:31)
[2021-04-19] MEDS: 0.9% Normal Saline 1,000 ML 1000 ML IV (11:31)
[2021-04-19 11:34] LABS: Absolute Lymphocyte Count 1.05 X10^3/uL (0.83-4.51); Absolute Neutrophil Count 2.8 X10^3/uL (2.0-7.7); Basophil# 0.01 X10^3/uL; Basophil% 0.2 % (0-1); Eosinophil# 0.01 X10^3/uL; Eosinophils% 0.2 % (0-5); Hematocrit 37.8 % (37-47); Hemoglobin 12.9 g/dL (12.0-15.0); Lymphocyte # 1.05 X10^3/ul (0.83-4.51); Lymphocyte % 25.1 % (19-41); Mean Corp Hgb Conc 34.1 g/dL (32-36); Mean Corpuscular Hgb 31.5 pg (27.0-32.0); Mean Corpuscular Volume 92.4 fL (81-99); Mean Platelet Vol. 8.8 fl (6.2-12.0); Monocyte# 0.29 X10^3/uL; Monocyte% 6.9 % (0-10); NRBC Flagged by Analyzer 0 % (0-5); Neutrophil # 2.82 X10^3/uL (2.7-7.7); Neutrophil % 67.4 % (47-70); POSITIVE MORPHOLOGY YES; Platelet Count 166 K/mm3 (150-450); RBC Distribution Width CV 11.7 % (11.6-14.6); RBC Distribution Width SD 39.8 fl (35.1-43.9); Red Blood Count 4.09 M/mm3 (4.2-5.4); White Blood Count 4.2 K/mm3 (4.4-11.0)
[2021-04-19 11:36] LABS: Differential Indicated SCAN CRITERIA MET
[2021-04-19 11:47] LABS: D-Dimer Quantitative (DVT/PE) 1.89 FEU/ug/m (0.27-0.49)
--- NOTE | 2021-04-19 11:49 | CT_ITS ---
STUDY: CTA CHEST REASON FOR EXAM: Female, 65 years old. Elevated d-dimer. RADIATION DOSAGE (If Supplied By Facility): CTDIvol = ( 13.72 ) mGy, DLP = ( 453.53 ) mGycm TECHNIQUE: The examination was performed with the intravenous administration of IV 100mL Isovue-370. Post-processing of the angiographic images was performed, with multiplanar reformation and 3D reconstruction. Individualized dose optimization techniques were used for this CT. COMPARISON: None. FINDINGS: Normal enhancement of the main pulmonary artery and right and left pulmonary arteries. Suboptimal evaluation of the peripheral branches due to significant artifacts. The sagittal and coronal reconstruction images are limited. Normal thoracic aorta and visualized great vessels. There is no demonstrated aortic dissection. Borderline cardiac silhouette. No evidence of pericardial effusion. Normal mediastinum. Normal hilar regions. Normal visualized trachea and bronchi. The lungs are well expanded. Extensive diffuse patchy infiltrates concerning for multifocal pneumonia including Covid 19. There are no pleural effusions. Normal chest wall structures. No demonstrated acute osseous changes. Normal visualized upper abdomen. CT/CTA Chest W/WO Contrast IMPRESSION: No evidence of central pulmonary embolism. Limited evaluation of the peripheral branches. Extensive diffuse patchy bilateral infiltrates consistent with multifocal pneumonia including Covid 19. Electronically Signed: Pola Preston, at 13:12 EST Tel , Service support ,
[2021-04-19 11:51] LABS: Anion Gap 10 (5-15); BUN 7 mg/dL (7-18); BUN/Creat Ratio 10.1 RATIO (10-20); Calcium,Total 8.5 mg/dL (8.5-10.1); Chloride 98 mmol/L (98-107); Creatinine, Serum 0.69 mg/dL (0.55-1.02); EST Glomerular Filtration Rate 91 mL/min (>60); Est Glom Filt Rate - Afr Amer 110 mL/min (>60); Estimated Creatinine Clearance 92.06 ml/min; Glucose 128 mg/dL (74-106); Sodium Level 138 mmol/L (136-145); Troponin-I HS 24 pg/mL (3.0-54.0)
--- NOTE | 2021-04-19 12:00 | RAD_ITS ---
STUDY: X-RAY CHEST REASON FOR EXAM: Female, 65 years old. Dyspnea TECHNIQUE: Single AP portable view of the chest. COMPARISON: 04/10/2021. FINDINGS: Patchy bilateral infiltrates predominantly in the lower lungs new since the previous exam concerning for multifocal pneumonia. There is no demonstrated pleural abnormality. Normal size heart. Normal mediastinum and mary. Normal visualized pulmonary arteries. Normal visualized aortic arch and descending thoracic aorta. Stable osseous structures. There is no demonstrated abnormality of the visualized soft tissue structures of the upper abdomen. RAD/Chest 1 View (Portable) IMPRESSION: Bilateral infiltrates concerning for multifocal pneumonia. Electronically Signed: Pola Preston, at 12:45 EST Tel , Service support ,
[2021-04-19 12:06] LABS: Atypical Lymphocyte 1+ %
[2021-04-19 12:51] LABS: Bacteria 0 SEEN /hpf (None Seen); Mucous, Urine 0 SEEN /hpf (<or=2+); Red Blood Cells-Urine 0 SEEN /hpf (0-5); Squamous Epithelial Cells - UA 0 SEEN /hpf (5-10); White Blood Cells 0 SEEN /hpf (0-5)
[2021-04-19 12:52] LABS: Color, Urine Straw (Yellow); Glucose, Dipstick Normal (Normal); Ketone-Dipstick 15 mg/dl (Negative); Leukocyte Esterase-Dipstick Negative /ul (Negative); Nitrite-Dipstick Negative (Negative); Occult Blood-Urine 10 /ul (Negative); Protein-Dipstick 30 mg/dl (Negative); Urine Bilirubin Dipstick Negative (Negative); Urine Clarity Clear (Clear); Urine Urobilinogen Normal (Normal)
[2021-04-19] MEDS: Potassium Chloride Oral Tablet 20 MEQ 40 MEQ PO ×2 (13:22→16:55)
[2021-04-19] MEDS: dexAMETHasone 10 MG/ML Vial 6 MG IV (13:22)
[2021-04-19 16:22] LABS: Magnesium 2.3 mg/dL (1.6-2.6)
--- NOTE | 2021-04-19 16:24 | PCM.HP.STD ---
HPI - General General Date of Admission: 04/19/21 Date of Service: 04/19/21 Chief Complaint: Progressive shortness of breath ongoing for about 12 days HPI Narrative YADIEL FLOREZ, is a 65 F who presents with the above. Patient has history of asthma, was seen in the ED on 04/10/21 and diagnosed with acute COVID-19 infection. She was treated for monoclonal antibodies but did not go for it. Patient is unvaccinated against acute COVID-19 infection. Patient presents with progressive shortness of breath, fatigue and cough. She denied any loss of smell or taste. She denied any diarrhea but admits to some nausea but no vomiting. Patient was saturating 80% on 2 L with exertion. She needed up to 4 L of oxygen to get her above 90%. Chest x-ray shows bilateral infiltrates. CTA of the chest is negative for acute PE; showed bilateral infiltrates. Admitting blood work was evident for hypokalemia of 3.0. This was replaced in the ED. [facility] Medical History Allergies Arthritis Asthma Back problem Cataract Essential hypertension External hemorrhoid, thrombosed Fibrocystic breast disease Fibrocystic breast disease Fibromyalgia GERD (gastroesophageal reflux disease) Hearing problem Heart murmur Sciatica Home Medications hydrochlorothiazide 12.5 mg capsule 12.5 mg PO DAILY 30 Days #30 cap 05/02/18 [History Last Taken 06/12/19 09:00] losartan 25 mg tablet 25 mg PO DAILY 30 Days #30 tab 05/02/18 [History Last Taken 06/12/19 09:00] citalopram 40 mg tablet 40 mg PO DAILY 11/07/18 [History Last Taken 06/12/19 09:00] gabapentin 600 mg tablet 600 mg PO QHS PRN 11/07/18 [History Last Taken Unknown] gabapentin 100 mg PO DAILY PRN 01/06/19 [History Last Taken Unknown] albuterol sulfate 2.5 mg INHALATION Q4H PRN #180 ml 02/07/19 [Rx Last Taken Unknown] cholecalciferol (vitamin D3) 2,000 unit PO DAILY 04/02/19 [History Last Taken Unknown] albuterol sulfate 90 mcg/actuation aerosol inhaler 2 puff INHALATION Q4H PRN #1 device 07/11/19 [Rx Last Taken Unknown] pantoprazole 40 mg PO DAILY 09/12/19 [History Last Taken Unknown] dicyclomine 20 mg PO TIDAC #20 cap 05/04/20 [Rx Last Taken Unknown] fluticasone propionate 1 spray INTRANASAL BID PRN 05/04/20 [History Last Taken Unknown] naproxen 500 mg PO BID PRN #20 tab 05/20/20 [Rx Last Taken Unknown] montelukast 10 mg tablet 10 mg PO DAILY 07/29/20 [History Last Taken Unknown] metoprolol succinate 50 mg tablet,extended release 24 hr 50 mg PO DAILY #30 tab 08/18/20 [Rx Last Taken Unknown] budesonide-formoterol HFA 160 mcg-4.5 mcg/actuation aerosol inhaler 2 puff INHALATION BID #1 ea 03/31/21 [Rx Last Taken Unknown] Allergy/AdvReac Type Severity Reaction Status Date / Time apple Allergy Hives Verified 04/19/21 11:01 banana Allergy Hives Verified 04/19/21 11:01 carrot Allergy Hives Verified 04/19/21 11:01 pineapple Allergy Itching Verified 04/19/21 11:01 shrimp Allergy Anaphylaxis Verified 04/19/21 11:01 amoxicillin AdvReac YEAST Verified 04/19/21 11:01 INFECTION lobster Allergy Anaphylaxis Uncoded 04/19/21 11:01 Family History Sister Breast cancer Mother Heart disease Enlarged heart Grandmother Enlarged heart Other Anxiety and depression Arthritis History of blood clots Hypertension Surgical History H/O tubal ligation History of removal of cyst Hx of appendectomy Social History Smoking Status: Former smoker quit date: 04/11/93 alcohol intake: current alcohol intake frequency: holidays/special occasions only Alcohol type: wine details: social substance use type: does not use caffeine: No additional social history: Does take aspirin daily Does not take Ibuprofen ROS ROS Narrative Constitutional: Reports: Malaise, Weakness, Fatigue. Denies: Anorexia, Chills, Fever, Night Sweats, Weight Change Eyes: Denies: Blurred vision, Cataracts, Conjunctivae Inflammation, Pain, Redness, Vision Change HEENT: Denies: Difficulty Hearing, Difficulty Swallowing, Head Aches, Hearing Changes, Sinus Congestion, Sinus Drainage Cardiovascular: Denies: Chest Pain, Orthopnea, Palpitations Respiratory: Admits: Cough, Shortness of breath at rest, Sputum production Gastrointestinal: Denies: Abdominal Pain, Nausea, Vomiting Genitourinary: Denies: Dysuria Musculoskeletal: Denies: Joint Pain, Joint stiffness, Joint swelling, Joint Tenderness Skin: Denies: Rash, Wounds Neurological: Denies: Numbness, Tingling, Focal weakness Vital Signs Vital Signs Vital Signs: 04/19/21 11:01 04/19/21 11:03 04/19/21 11:22 Temperature 97.9 F 97.9 F Temperature Source Temporal Temporal Pulse Rate 88 85 Respiratory Rate 20 H 20 H Respiratory Effort Short of Breath Respiratory Pattern Tachypnea Blood Pressure 157/75 H 157/75 H Blood Pressure Mean 102 102 Blood Pressure Source Blood Pressure Position Blood Pressure Location Pulse Ox 86 95 98 Oxygen Delivery Method Room Air Nasal Cannula Nasal Cannula Oxygen Flow Rate (L/min) 2 2 04/19/21 12:40 04/19/21 12:49 04/19/21 13:25 Temperature 97.9 F Temperature Source Temporal Pulse Rate 69 63 Respiratory Rate 19 H 18 Respiratory Effort Respiratory Pattern Blood Pressure 144/70 H 141/72 H Blood Pressure Mean 94 95 Blood Pressure Source Blood Pressure Position Blood Pressure Location Pulse Ox 96 98 100 Oxygen Delivery Method Nasal Cannula Nasal Cannula Nasal Cannula Oxygen Flow Rate (L/min) 2 3 3 04/19/21 14:21 04/19/21 15:56 Temperature 97.8 F 97.9 F Temperature Source Temporal Oral Pulse Rate 68 62 Respiratory Rate 20 H 18 Respiratory Effort Respiratory Pattern Blood Pressure 142/72 H 151/70 H Blood Pressure Mean 95 97 Blood Pressure Source Monitor Blood Pressure Position Sitting Blood Pressure Location Right Arm Pulse Ox 100 96 Oxygen Delivery Method Nasal Cannula Nasal Cannula Oxygen Flow Rate (L/min) 3 3 Weight Weight: 106.169 kg Body Mass Index (BMI) 33.5 Physical Exam Narrative Physical exam: General: Alert, Oriented x3, Cooperative, No apparent distress, on 3L oxygen HEENT: Atraumatic Oral: Moist Mucosa Neck: Supple Lungs:Diminished to auscultation Cardiovascular: HS I+II, regular, 2/6 heart murmur Abdomen: Bowel Sounds Present, Soft, Non Tender Extremities: No edema Results Lab / Micro Data Result Diagrams: 04/19/21 11:30 04/19/21 11:30 Labs: Laboratory Results - last 24 hr 04/19/21 11:30: WBC 4.2 L, RBC 4.09 L, Hgb 12.9, Hct 37.8, MCV 92.4, MCH 31.5, MCHC 34.1, RDW Std Deviation 39.8, RDW Coeff of Domi 11.7, Plt Count 166, MPV 8.8, Immature Gran % (Auto) 0.200, Neut % (Auto) 67.4, Lymph % (Auto) 25.1, [place] % (Auto) 6.9, Eos % (Auto) 0.2, Baso % (Auto) 0.2, Absolute Neuts (auto) 2.8, Absolute Lymphs (auto) 1.05, Nucleated RBC % 0, Atypical Lymphocytes 1+ 04/19/21 11:30: D-Dimer Quant (PE/DVT) 1.89 H* 04/19/21 11:30: Sodium 138, Potassium 3.0 L, Chloride 98, Carbon Dioxide 30.0, Anion Gap 10, BUN 7, Creatinine 0.69, Estim Creat Clear Calc 92.06, Est GFR (MDRD) Af Amer 110, Est GFR (MDRD) Non-Af 91, BUN/Creatinine Ratio 10.1, Glucose 128 H, Calcium 8.5, Troponin I High Sens 24 04/19/21 11:30: Magnesium 2.3 04/19/21 12:45: Urine Color Straw, Urine Clarity Clear, Urine pH 7.0, Ur Specific [place] 1.010, Urine Protein 30 H, Urine Glucose (UA) Normal, Urine Ketones 15 H, Urine Occult Blood 10 H, Urine Nitrite Negative, Urine Bilirubin Negative, Urine Urobilinogen Normal, Ur Leukocyte Esterase Negative, Urine RBC 0 SEEN, Urine WBC 0 SEEN, Ur Squamous Epith Cells 0 SEEN, Urine Bacteria 0 SEEN, Urine Mucus 0 SEEN Radiology Impression Chest CTA 04/19/21 11:49 IMPRESSION: No evidence of central pulmonary embolism. Limited evaluation of the peripheral branches. Extensive diffuse patchy bilateral infiltrates consistent with multifocal pneumonia including Covid 19. Electronically Signed: Pola Preston, at 13:12 EST Tel , Service support , Chest X-Ray 04/19/21 12:00 IMPRESSION: Bilateral infiltrates concerning for multifocal pneumonia. Electronically Signed: Pola Preston, at 12:45 EST Tel , Service support , Assessment & Plan Assessment/Plan (1) Acute respiratory failure with hypoxia: (2) Pneumonia due to COVID-19 virus: (3) Essential hypertension: (4) GERD (gastroesophageal reflux disease): QUALIFIERS: Esophagitis presence: esophagitis presence not specified Qualified Code(s): K21.9 - Gastro-esophageal reflux disease without esophagitis (5) Hypokalemia: PLAN: 1. Acute hypoxic respiratory failure secondary to acute COVID-19 pneumonia Patient is unvaccinated, currently on 3 L of oxygen Continues ongoing for 12 days Admitting chest x-ray showed bilateral infiltrate CTA of the chest is negative for acute PE History of asthma Continue on dexamethasone Not a candidate for remdesivir Continue to wean off oxygen, encourage use of incentive spirometer 2. Hypokalemia, replaced 3. Hypertension, history of dictations continue losartan, metoprolol 4. DVT PPx- Lovenox SC I discussed and explained in details the various types of CODE STATUS-full code, DNR CCA, DNR CC. Patient chose to be full code. Time spent discussing CODE STATUS 16 minutes Charges/Coding Visit Charges Inpatient E&M: 96080 Init Hosp L3 Procedures Hospitalists Procedures: 35908 Advncd Care Plan 30 Min
[2021-04-19] MEDS: Dicyclomine 10 MG Capsule 20 MG PO (16:54)
[2021-04-19] MEDS: Acetaminophen 325 MG Tablet 650 MG PO (16:54)
[2021-04-19] MEDS: Enoxaparin 30 MG/0.3 ML Syringe SC (21:34)
[2021-04-20] VITALS (8 sets, daily range): BP systolic 114–148; BP diastolic 63–81; PULSE 55–62; RESP 16–18; TEMP 36.4–36.8; O2SAT 92–96
--- NOTE | 2021-04-20 00:07 | PCS.PANDOC ---
PANDEMIC DOCUMENTATION INITIATED: Date: 11/24/2020 Time: 190 Emergency documentation initiated 04/19/21 @ 1900
[2021-04-20] MEDS: Dicyclomine 10 MG Capsule 20 MG PO ×3 (05:58→16:25)
[2021-04-20 06:56] LABS: Absolute Lymphocyte Count 0.98 X10^3/uL (0.83-4.51); Absolute Neutrophil Count 1.5 X10^3/uL (2.0-7.7); Basophil# 0.01 X10^3/uL; Basophil% 0.4 % (0-1); Hematocrit 36.6 % (37-47); Hemoglobin 12.1 g/dL (12.0-15.0); Lymphocyte # 0.98 X10^3/ul (0.83-4.51); Lymphocyte % 35.9 % (19-41); Mean Corp Hgb Conc 33.1 g/dL (32-36); Mean Corpuscular Hgb 30.6 pg (27.0-32.0); Mean Corpuscular Volume 92.7 fL (81-99); Monocyte# 0.23 X10^3/uL; Monocyte% 8.4 % (0-10); NRBC Flagged by Analyzer 0 % (0-5); Neutrophil # 1.49 X10^3/uL (2.7-7.7); Neutrophil % 54.6 % (47-70); POSITIVE MORPHOLOGY YES; Platelet Count 192 K/mm3 (150-450); RBC Distribution Width CV 11.7 % (11.6-14.6); RBC Distribution Width SD 39.8 fl (35.1-43.9); Red Blood Count 3.95 M/mm3 (4.2-5.4); White Blood Count 2.7 K/mm3 (4.4-11.0)
[2021-04-20 06:58] LABS: Differential Indicated SCAN CRITERIA MET
[2021-04-20 07:19] LABS: ALB/GLOB Ratio 0.6 RATIO (0.9-2.4); AST(SGOT) 35 U/L (15-37); Alanine Aminotransfer ALT/SGPT 39 U/L (13-56); Albumin, Serum 2.7 g/dL (3.2-5.0); Alkaline Phosphatase 57 U/L (45-117); Anion Gap 5 (5-15); BUN 7 mg/dL (7-18); BUN/Creat Ratio 11.7 RATIO (10-20); Calcium,Total 8.7 mg/dL (8.5-10.1); Chloride 102 mmol/L (98-107); EST Glomerular Filtration Rate 107 mL/min (>60); Est Glom Filt Rate - Afr Amer 130 mL/min (>60); Estimated Creatinine Clearance 102.43 ml/min; Globulin 4.3 g/dL (2.2-4.2); Glucose 118 mg/dL (74-106); Sodium Level 138 mmol/L (136-145)
[2021-04-20 08:17] LABS: Differential Comment SCANNED
[2021-04-20 08:18] LABS: Atypical Lymphocyte 1+ %
[2021-04-20] MEDS: Enoxaparin 30 MG/0.3 ML Syringe SC ×2 (08:56→22:35)
[2021-04-20] MEDS: Cholecalciferol (VIT D3) 25 MCG TABLET (1,000 UNITS) 50 MCG PO (08:56)
[2021-04-20] MEDS: dexAMETHasone 4 MG Tablet 6 MG PO (08:56)
[2021-04-20] MEDS: Montelukast 10 MG Tablet PO (08:57)
[2021-04-20] MEDS: Pantoprazole Sodium 40 MG Tablet PO (08:57)
[2021-04-20] MEDS: Losartan Potassium 25 MG Tablet PO (08:57)
[2021-04-20] MEDS: Metoprolol(XL)Succ 50 MG Tablet PO (08:57)
[2021-04-20] MEDS: hydroCHLOROthiazide 12.5mg 12.5 MG PO (08:58)
[2021-04-20] MEDS: Citalopram 40 MG TABLET PO (08:58)
--- NOTE | 2021-04-20 10:55 | CASEMGMT ---
KEON FERNANDEZ Assessment: Face to Face with pt for initial transition planning/care coordination assessment. KEON FERNANDEZ introduced self and role at [facility], pt voices understanding and consents to assessment. Pt is A/O x4 and answers all questions appropriately at this time. Pt sitting up in chair with O2 on in no distress. Care providers, pharmacy, and demographics verified/updated. Admitting Dx: COVID PCP:Marciano Specialists:Tony, cardio; Mario pulrosendo; ESTEFANI Menchaca Preferred Pharmacy: [facility] Insurance: [facility] Prescription Benefit: yes LW/HPOA: Pt denies having a LW/DPOA and denies need for info regarding AD. LNOK: Eduardo Durand, Living Arrangements: Pt lives with in a ground level apt with 3 steps to enter. Pt reports she is I in ADL's and denies concerns at home. Transportation: Pt drives self and denies concerns with transportation. DME/HHC/SNF: Pt has a nebulizer at home. Recommended she obtain a pulse ox. Pt denies previous HHC or SNF stays. Pt states no concerns with going home at time of dc. Pt states no further concerns/needs. CM to follow. Advised pt to ask CM if any further question/concerns/needs arise, voices understanding. Pt first test positive for COVID at [facility]. She states her had COVID but is out of isolation now. Pt has family who can provide groceries and supplies while in quarantine. Provided pt with a local in network list of DME companies should pt be dc'd on O2, pt denies preference. Pt Goal: Home Plan:Home
--- NOTE | 2021-04-20 19:21 | PN.HOSP_ITS ---
Subjective Subjective Patient was seen and examined today, she is currently on oxygen at 2 L/min and appears comfortable, she does not complain of any shortness of breath, chest discomfort, fevers, or chills. Patient is currently on dexamethasone, patient is out of the time frame for remdesivir. Objective Data Objective Data Vital Signs: Vital Signs Temp Pulse Resp BP Pulse Ox 98.3 F 58 L 18 124/70 H 93 04/20/21 13:30 04/20/21 13:30 04/20/21 15:00 04/20/21 13:30 04/20/21 13:30 Oxygen Flow Rate (L/min) 2 Oxygen Delivery Method Nasal Cannula Weight: 106.169 kg Body Mass Index (BMI) 33.5 Intake & Output: Intake and Output for Last 24 Hours 04/18/21 04/19/21 04/20/21 23:59 23:59 23:59 Intake Total 1950 / 2150 2580 / 2580 Balance 1950 / 2150 2580 / 2580 Lab / Micro Data Result Diagrams: 04/20/21 06:25 04/20/21 06:25 Labs: Laboratory Results - last 24 hr 04/20/21 06:25: WBC 2.7 L, RBC 3.95 L, Hgb 12.1, Hct 36.6 L, MCV 92.7, MCH 30.6, MCHC 33.1, RDW Std Deviation 39.8, RDW Coeff of Domi 11.7, Plt Count 192, MPV 9.0, Immature Gran % (Auto) 0.700, Neut % (Auto) 54.6, Lymph % (Auto) 35.9, [place] % (Auto) 8.4, Eos % (Auto) 0.0, Baso % (Auto) 0.4, Absolute Neuts (auto) 1.5 L, Absolute Lymphs (auto) 0.98, Nucleated RBC % 0, Differential Comment SCANNED, Atypical Lymphocytes 1+ 04/20/21 06:25: Sodium 138, Potassium 4.0, Chloride 102, Carbon Dioxide 31.0, Anion Gap 5, BUN 7, Creatinine 0.60, Estim Creat Clear Calc 102.43, Est GFR (MDRD) Af Amer 130, Est GFR (MDRD) Non-Af 107, BUN/Creatinine Ratio 11.7, Glucose 118 H, Calcium 8.7, Total Bilirubin 0.60, AST 35, ALT 39, Alkaline Phosphatase 57, Total Protein 7.0, Albumin 2.7 L, Globulin 4.3 H, Albumin/Globulin Ratio 0.6 L Physical Exam Const alert, oriented x3, no apparent distress and average body habitus General Appearance: cooperative, well kempt and well developed Orientation / Consciousness: awake, oriented to person, oriented to place and oriented to time HEENT normocephalic, head/scalp atraumatic and moist oral mucous membranes Head and Scalp: normocephalic Eyes PERRL, EOMs intact bilaterally and conjunctivae normal Neck nuchal rigidity, supple, no JVD and thyroid normal General: trachea midline Resp normal respiratory effort, no retractions, no use of accessory muscles and clear to auscultation bilaterally Auscultation: Negative for rales, rhonchi or wheezes Cardio regular rate, regular rhythm, S1 normal heart sound, S2 normal heart sound, no murmurs, no rub and no gallops GI normal to inspection, nondistended, normoactive bowel sounds, soft to palpation, non-tender and non-distended Extremity no clubbing, cyanosis or edema Skin no rashes or lesions noted General Skin Exam: no breakdown Neuro oriented x3, CN's II-XII intact bilaterally, no focal motor deficits and no sensory deficits noted Sensorium / Orientation: awake and alert Speech: speech normal Psych thought process normal and affect normal Assessment & Plan Assessment/Plan (1) Pneumonia due to COVID-19 virus: PLAN: 1. COVID-19 pneumonia-patient will remain on dexamethasone #2 acute hypoxic respiratory failure-patient is oxygen will be monitored and it will be weaned if possible #3 hypokalemia-patient had potassium replaced orally #4 essential hypertension-patient is on losartan and metoprolol #5 chronic depression-patient is on Celexa #6 asthma-patient is on Singulair Charges/Coding Visit Charges Inpatient E&M: 18979 Subs Hosp L2
[2021-04-21] VITALS (9 sets, daily range): BP systolic 128–150; BP diastolic 69–77; PULSE 44–54; RESP 16–18; TEMP 36.4–36.9; O2SAT 86–100
[2021-04-21] MEDS: Dicyclomine 10 MG Capsule 20 MG PO ×3 (06:49→16:29)
[2021-04-21] MEDS: dexAMETHasone 4 MG Tablet 6 MG PO (08:25)
[2021-04-21] MEDS: Enoxaparin 30 MG/0.3 ML Syringe SC ×2 (08:25→21:22)
[2021-04-21] MEDS: Cholecalciferol (VIT D3) 25 MCG TABLET (1,000 UNITS) 50 MCG PO (08:25)
[2021-04-21] MEDS: Citalopram 40 MG TABLET PO (08:26)
[2021-04-21] MEDS: Montelukast 10 MG Tablet PO (08:26)
[2021-04-21] MEDS: hydroCHLOROthiazide 12.5mg 12.5 MG PO (08:26)
[2021-04-21] MEDS: Pantoprazole Sodium 40 MG Tablet PO (08:27)
[2021-04-21] MEDS: Losartan Potassium 25 MG Tablet PO (08:27)
--- NOTE | 2021-04-21 19:49 | PN.HOSP_ITS ---
Subjective Subjective Patient was seen and examined today, she requires 2 L via nasal cannula to maintain her pulse ox, patient was not ambulated today due to the fact that she was bradycardic during the day. I had nursing hold her metoprolol XL, patient cannot give me an exact reason why she is taking the medication other than the fact that her mold closer helper placed her on it for a slow heart rate. This really does not make any sense at this time, I have reviewed Dr. Jimenez's office notes from last year, it appears that the patient was complaining of palpitations and he thought she could have had a tachyarrhythmia. I have decided to place the patient on a lower dose of Toprol-XL starting tomorrow morning. Patient will be evaluated for oxygen need during ambulation tomorrow. Objective Data Objective Data Vital Signs: Vital Signs Temp Pulse Resp BP Pulse Ox 98.1 F 54 L 18 145/77 H 98 04/21/21 16:23 04/21/21 16:23 04/21/21 16:23 04/21/21 16:23 04/21/21 16:23 Oxygen Flow Rate (L/min) [ 2 AMBULATING with Oxygen #1] Oxygen Flow Rate (L/min) 2 Oxygen Delivery Method Nasal Cannula Weight: 106.169 kg Body Mass Index (BMI) 33.5 Intake & Output: Intake and Output for Last 24 Hours 04/19/21 04/20/21 04/21/21 23:59 23:59 23:59 Intake Total 1949 2580 / 2580 2049 Balance 1949 2580 / 2580 2049 Lab / Micro Data Result Diagrams: 04/20/21 06:25 04/20/21 06:25 Physical Exam Const alert, oriented x3, no apparent distress and healthy appearing General Appearance: cooperative, well kempt and well developed Orientation / Consciousness: awake, oriented to person, oriented to place and oriented to time HEENT normocephalic, head/scalp atraumatic and moist oral mucous membranes Head and Scalp: normocephalic Eyes PERRL, EOMs intact bilaterally and conjunctivae normal Neck nuchal rigidity, supple, no JVD, thyroid normal and no carotid bruits General: trachea midline Resp normal respiratory effort, no retractions, no use of accessory muscles and clear to auscultation bilaterally Auscultation: Negative for rales, rhonchi or wheezes Cardio regular rate, regular rhythm, S1 normal heart sound, S2 normal heart sound, no murmurs, no rub and no gallops GI normal to inspection, nondistended, normoactive bowel sounds, soft to palpation, non-tender and non-distended Extremity no clubbing, cyanosis or edema Skin no rashes or lesions noted General Skin Exam: no breakdown Neuro oriented x3, CN's II-XII intact bilaterally, no focal motor deficits and no sensory deficits noted Sensorium / Orientation: awake and alert Speech: speech normal Psych thought process normal and affect normal Assessment & Plan Assessment/Plan (1) Pneumonia due to COVID-19 virus: PLAN: 1. COVID-19 pneumonia-patient will remain on dexamethasone #2 acute hypoxic respiratory failure-patient is oxygen will be monitored and it will be weaned if possible #3 hypokalemia-patient had potassium replaced orally #4 essential hypertension-patient is on losartan and metoprolol #5 chronic depression-patient is on Celexa #6 asthma-patient is on Singulair #7 bradycardia secondary to [id number] I have held the patient's Toprol-XL today, I will resume it tomorrow at half her usual outpatient dose. Charges/Coding Visit Charges Inpatient E&M: 44314 Subs Hosp L2
[2021-04-22] VITALS (10 sets, daily range): BP systolic 131–153; BP diastolic 62–81; PULSE 46–52; RESP 18; TEMP 36.4–37.1; O2SAT 83–100
[2021-04-22] MEDS: Dicyclomine 10 MG Capsule 20 MG PO ×3 (05:37→16:30)
[2021-04-22] MEDS: Losartan Potassium 25 MG Tablet PO (09:37)
[2021-04-22] MEDS: Pantoprazole Sodium 40 MG Tablet PO (09:37)
[2021-04-22] MEDS: Montelukast 10 MG Tablet PO (09:37)
[2021-04-22] MEDS: hydroCHLOROthiazide 12.5mg 12.5 MG PO (09:37)
[2021-04-22] MEDS: Cholecalciferol (VIT D3) 25 MCG TABLET (1,000 UNITS) 50 MCG PO (09:37)
[2021-04-22] MEDS: dexAMETHasone 4 MG Tablet 6 MG PO (09:37)
[2021-04-22] MEDS: Citalopram 40 MG TABLET PO (09:37)
[2021-04-22] MEDS: Enoxaparin 30 MG/0.3 ML Syringe SC (09:38)
[2021-04-22] MEDS: Metoprolol(XL)Succ 25 MG Tablet PO (11:46)
--- NOTE | 2021-04-22 14:38 | PCM.DC ---
Discharge Instructions Diet Discharge Diet: No restrictions Activity Discharge Activity: Return to Normal Activity Weight Bearing Status: Full weight bearing Additional Activity Instructions:: Quarantine for 20 days after first symptoms of COVID-19 Follow Up Care Test Results: Test results from this visit will be discussed in further detail at your follow-up appointment, if applicable. Discharge Plan Admission Admit Date/Time: 04/19/21 13:23 Primary Reason for Your Visit: Covid-19, hypoxia Attending Provider: Richard Sales Primary Care Provider: Alaina Tariq Instructions Additional Instructions / Restrictions: Use oxygen at 2 L/min via nasal cannula when ambulating or activity Discharge Orders/Prescriptions Prescriptions: New dexamethasone 2 mg tablet 6 mg PO DAILY Qty: 18 RF: 0 Continued losartan 25 mg tablet 25 mg PO DAILY 30 Days Qty: 30 RF: 0 hydrochlorothiazide 12.5 mg capsule 12.5 mg PO DAILY 30 Days Qty: 30 RF: 0 citalopram [Celexa] 40 mg tablet 40 mg PO DAILY RF: 0 gabapentin 600 mg tablet 600 mg PO QHS PRN (Reason: other) RF: 0 albuterol sulfate 2.5 mg /3 mL (0.083 %) solution for nebulization 2.5 mg INHALATION Q4H PRN (Reason: Sob &/Or Wheezing) Qty: 180 RF: 3 albuterol sulfate [Ventolin HFA] 90 mcg/actuation HFA aerosol inhaler 2 puff INHALATION Q4H PRN (Reason: shortness of breath or wheezing) Qty: 1 RF: 3 budesonide-formoterol [Symbicort] 160-4.5 mcg/actuation HFA aerosol inhaler 2 puff inhalation BID Qty: 1 RF: 3 montelukast [Singulair] 10 mg tablet 10 mg PO DAILY RF: 0 gabapentin 100 MG capsule 100 mg PO DAILY PRN (Reason: Pain Score 1-10/10) RF: 0 cholecalciferol (vitamin D3) 2,000 UNIT capsule 2,000 unit PO DAILY RF: 0 pantoprazole 40 MG tablet,delayed release (DR/EC) 40 mg PO DAILY RF: 0 fluticasone propionate 16 GM spray,suspension 1 spray INTRANASAL BID PRN (Reason: Congestion) RF: 0 dicyclomine 10 MG capsule 20 mg PO TIDAC Qty: 20 RF: 0 naproxen 500 MG tablet 500 mg PO BID PRN Qty: 20 RF: 0 metoprolol succinate 25 mg tablet extended release 24 hr 25 mg PO DAILY RF: 0 Referrals / Follow Up: Alaina Tariq MD [Primary Care Provider] - See Referral Note (in two weeks) Disposition Disposition (needs filled in before D/C Order can be placed): Home, Self Care
--- NOTE | 2021-04-22 16:30 | DS.PCM_ITS ---
Providers Date of Admission: 04/19/21 Date of Discharge: 04/22/21 Primary Care Physician: Dr. Alaina Tariq MD Reason For Visit: COVID Diagnosis Discharge Diagnosis (1) Pneumonia due to COVID-19 virus: Status: Acute Code(s): U07.1 - COVID-19; J12.82 - Pneumonia due to coronavirus disease 2019 Plan: 1. COVID-19 pneumonia #2 acute hypoxic respiratory failure secondary to COVID-19 pneumonia #3 hypokalemia #4 essential hypertension #5 chronic depression #6 asthma #7 asymptomatic bradycardia secondary to use of beta-pedro chronically Medications at Discharge Home Medications hydrochlorothiazide 12.5 mg capsule 12.5 mg PO DAILY 30 Days #30 cap 05/02/18 losartan 25 mg tablet 25 mg PO DAILY 30 Days #30 tab 05/02/18 citalopram 40 mg tablet 40 mg PO DAILY 11/07/18 gabapentin 600 mg tablet 600 mg PO QHS PRN 11/07/18 gabapentin 100 mg PO DAILY PRN 01/06/19 albuterol sulfate 2.5 mg INHALATION Q4H PRN #180 ml 02/07/19 cholecalciferol (vitamin D3) 2,000 unit PO DAILY 04/02/19 albuterol sulfate 90 mcg/actuation aerosol inhaler 2 puff INHALATION Q4H PRN #1 device 07/11/19 pantoprazole 40 mg PO DAILY 09/12/19 dicyclomine 20 mg PO TIDAC #20 cap 05/04/20 fluticasone propionate 1 spray INTRANASAL BID PRN 05/04/20 naproxen 500 mg PO BID PRN #20 tab 05/20/20 montelukast 10 mg tablet 10 mg PO DAILY 07/29/20 budesonide-formoterol HFA 160 mcg-4.5 mcg/actuation aerosol inhaler 2 puff INHALATION BID #1 ea 03/31/21 dexamethasone 6 mg PO DAILY #18 tab 04/22/21 metoprolol succinate 25 mg tablet,extended release 24 hr 12.5 mg PO DAILY tab 04/24/21 Hospital Course Operations None Procedures None Summary of Care Provided Minutes Spent on Discharge: 32 Hospital Course: This 65-year-old black female was seen in the emergency room at [facility] with a chief complaint of generalized weakness. Patient had been diagnosed with COVID-19 in the [facility] ER on 04/10/2021. She was referred for monoclonal antibodies but the hospital at that time did not have infusions available. Patient was nonvaccinated against COVID- 19. Work-up in the emergency room included a CTA of her chest that was negative for pulmonary emboli but does show diffuse multifocal COVID infiltrates. Patient was given IV Decadron in the emergency room, she required 4 L via nasal cannula to maintain her pulse ox above 90%. Patient was admitted to [place] [address], she was maintained on Decadron-patient was out of the window for remdesivir. Patient improved during her hospitalization. On examination she appeared in good health and spirits, she does not appear to be in any distress. Vital signs as documented. Skin warm and dry and without overt rashes. Neck without JVD, thyroid appears normal, trachea is midline, neck is supple. Lungs clear, normal air movement was noted. Heart exam notable for regular rhythm, normal sounds and absence of murmurs, rubs or gallops. Abdomen unremarkable and without evidence of organomegaly, masses, or abdominal aortic enlargement, bowel sounds are present in all 4 quadrants, no abdominal ten derness was noted. Extremities nonedematous, no cyanosis was noted, no clubbing was noted. Neuro: Cranial nerves II through XII are grossly intact, no focal motor deficits were noted, sensation to light touch and pinprick is intact, motor exam 5/5 throughout. Psych: Patient is alert and oriented x3, she does not appear anxious or depressed, she does not appear agitated. On 04/22/21, patient was seen and examined and felt to be in stable condition for discharge home. At the time of discharge, patient required oxygen at 2 L/min while ambulating to maintain a pulse ox of 93%, she did not need any oxygen at rest however. Oxygen was set up for the patient, she is expected to use it inside and outside the home as directed. Weight / BMI Weight Weight: 106.169 kg Body Mass Index (BMI) 33.5 ABG / Lab / Microbiology Data Result Diagrams: 04/20/21 06:25 04/20/21 06:25 D/C Instructions Discharge Diet: No restrictions Weight Bearing Status: Full weight bearing Additional Activity Instructions: Quarantine for 20 days after first symptoms of COVID-19 Meaningful Use Info Meaningful Use Diagnoses (Choose all that apply): None applicable Discharge Plan Admission Admit Date/Time: 04/19/21 13:23 Primary Reason for Your Visit: Covid-19, hypoxia Attending Provider: Richard Sales Primary Care Provider: Alaina Tariq Instructions Additional Instructions / Restrictions: Use oxygen at 2 L/min via nasal cannula when ambulating or activity Discharge Orders/Prescriptions Prescriptions: New dexamethasone 2 mg tablet 6 mg PO DAILY Qty: 18 RF: 0 Continued losartan 25 mg tablet 25 mg PO DAILY 30 Days Qty: 30 RF: 0 hydrochlorothiazide 12.5 mg capsule 12.5 mg PO DAILY 30 Days Qty: 30 RF: 0 citalopram [Celexa] 40 mg tablet 40 mg PO DAILY RF: 0 gabapentin 600 mg tablet 600 mg PO QHS PRN (Reason: other) RF: 0 albuterol sulfate 2.5 mg /3 mL (0.083 %) solution for nebulization 2.5 mg INHALATION Q4H PRN (Reason: Sob &/Or Wheezing) Qty: 180 RF: 3 albuterol sulfate [Ventolin HFA] 90 mcg/actuation HFA aerosol inhaler 2 puff INHALATION Q4H PRN (Reason: shortness of breath or wheezing) Qty: 1 RF: 3 budesonide-formoterol [Symbicort] 160-4.5 mcg/actuation HFA aerosol inhaler 2 puff inhalation BID Qty: 1 RF: 3 montelukast [Singulair] 10 mg tablet 10 mg PO DAILY RF: 0 gabapentin 100 MG capsule 100 mg PO DAILY PRN (Reason: Pain Score 1-10/10) RF: 0 cholecalciferol (vitamin D3) 2,000 UNIT capsule 2,000 unit PO DAILY RF: 0 pantoprazole 40 MG tablet,delayed release (DR/EC) 40 mg PO DAILY RF: 0 fluticasone propionate 16 GM spray,suspension 1 spray INTRANASAL BID PRN (Reason: Congestion) RF: 0 dicyclomine 10 MG capsule 20 mg PO TIDAC Qty: 20 RF: 0 naproxen 500 MG tablet 500 mg PO BID PRN Qty: 20 RF: 0 No Action metoprolol succinate 25 mg tablet extended release 24 hr 12.5 mg PO DAILY RF: 0 Referrals / Follow Up: Alaina Tariq MD [Primary Care Provider] - See Referral Note (in two weeks) Disposition Disposition (needs filled in before D/C Order can be placed): Home, Self Care Charges/Coding Visit Charges Inpatient E&M: 28131 Disch Hosp
--- NOTE | 2021-04-22 16:32 | CASEMGMT ---
Pt qualifies for home O2. TC to [facility], they do not have oxygen to service patient. TC to [facility], left voicemail to return call. TC to [facility], they are able to set up oxygen today. [facility] states they will bring portable tank to the hosptial. Referral faxed at this time.
--- NOTE | 2021-04-22 16:55 | CHAPLAIN ---
Type of Pastoral Visit ___ Initial Visit ___ Follow-up Visit ___ On-call Visit ___ General Patient Visit ___ Spiritual Assessment ___ Family Conference ___ Bereavement ___ Rapid Response ___ Code Blue _x__ Other (describe below) Pastoral Care Referral From _x__ Patient ___ Family ___ Nurse ___ Physician ___ Cancer Center Director ___ Laborer Drying Department ___ Other (describe below) Sacrament/Intervention _x__ Active listening ___ Anointing ___ Episcopalian _x__ Bereavement ___ Communion ___ Ariela exploration ___ ___ Life review _x__ Prayer ___ Reconciliation ___ Sacrament of Sick ___ Supportive presence ___ Wedding ___ Other (describe below) Pastoral Comments patient requested spiritual care support as she learned that her friend of COVID today; made phone call into this isolation room and patient was able to talk easily; pt states physically she is doing much better but expresses her grief at of her friend; listening, affirmation of grief, prayer, and support offered/given
== END 2021-04-22 19:15 | disposition home or self-care (01) | DRG 177 ==
LOC: ED 13:29 → MS3 14:42
PROVIDERS: Admitting Provider Internal Medicine; Emergency Provider Emergency Medicine; PCP Internal Medicine; Visit Provider Internal Medicine
DX: U07.1 COVID-19 (principal); J12.82 Pneumonia due to coronavirus disease 2019; J96.01 Acute respiratory failure with hypoxia; E87.6 Hypokalemia; J45.909 Unspecified asthma, uncomplicated; K21.9 Gastro-esophageal reflux disease without esophagitis; I10 Essential (primary) hypertension; M19.90 Unspecified osteoarthritis, unspecified site; M79.7 Fibromyalgia; R00.1 Bradycardia, unspecified; F32.A Depression, unspecified; Z87.891 Personal history of nicotine dependence; Z79.1 Long term (current) use of non-steroidal anti-inflammatories (NSAID); Z79.82 Long term (current) use of aspirin; Z79.899 Other long term (current) drug therapy; T44.7X5A Adverse effect of beta-adrenoreceptor antagonists, initial encounter
CPT/HCPCS: 36415; 71045; 71275; 80048; 80053; 81001; 83735; 84484; 85025; 85379; 93005; 94762; 97802; 99285; J7030; Q9967; A4216; J2405

== ENCOUNTER 2021-05-26 06:15 | Outpatient (CLI) | payer MEDICARE, SELFPAY ==
--- NOTE | 2021-05-26 19:51 | STRESSREP_ITS ---
Stress Test Report Date: 05-26-2021 Procedure: Pharmacologic stress nuclear imaging study Indications: Chest pain; fibromyalgia; COVID-19 Consent: Per the patient Procedure: The patient underwent pharmacologic (Regadenoson 0.4mg ) evaluation with a peak heart rate of 90 beats per minute (57%predicted maximal heart rate) and a peak blood pressure of 140/80 mmHg. The baseline ECG demonstrated sinus bradycardia. The peak pharmacologic ECG demonstrated no obvious ECG changes. There were no cardiac dysrhythmias pretest, during pharmacologic infusion, or recovery. There was no complaint of chest discomfort during pharmacologic infusion or recovery. The examination was discontinued secondary to completion of protocol. Impression: 1. Pharmacologic (Regadenoson) evaluation 2. Peak pharmacologic ECG with no obvious ECG changes. 3. There were no cardiac dysrhythmias pretest, during pharmacologic infusion, or recovery. 4. Nuclear images pending Myocardial perfusion imaging study: Technique: The patient was injected with 14.1 millicuries of technetium 99m Cardiolite and subsequently rest SPECT Cardiolite nuclear imaging was obtained in the horizontal long, vertical long, and short axis views. The patient underwent pharmacologic (Regadenoson) evaluation with a peak heart rate of 90 beats per minute (57% percent predicted maximal heart rate) and a peak blood pressure of 140/8 mmHg. The patient was injected with 44.5 millicuries of technetium 99m Cardiolite and subsequently stress SPECT Cardiolite nuclear imaging was obtained in the horizontal long, vertical long, and short axis views. A gated Cardiolite study at peak stress was obtained. Interpretation: Rest and stress SPECT Cardiolite nuclear imaging status post realignment, normalization, and attenuation correction demonstrate on the preattenuation correction images relative uniform tracer uptake/myocardial perfusion appearing within normal limits at rest and an area of diminished myocardial perfusion/tracer uptake in the post-rest images in the mid anterior segments, which, on the post attenuation correction images is not visualized as there appears to be relative uniform tracer uptake/myocardial perfusion appearing within normal limits on both the rest and stress images. There is end systolic thickening and brightening. The gated Cardiolite study demonstrates myocardial thickening and inward wall motion. The reported LVEF is 66%. Impression: 1. Rest and stress SPECT her nuclear imaging did do demonstrate a discrepancy between the preattenuation in the post attenuation correction images raising a concern on the preattenuation correction images of an area concerning for stress-induced myocardial ischemia in the mid anterior segments, which, he has not reproduced on the post attenuation correction images. The post attenuation correction images appear to demonstrate relative uniform tracer uptake and myocardial perfusion appearing within normal limits. 2. The gated Cardiolite study reports an LVEF of 66%. This note was generated with [facility] software. It may contain incorrect words, spelling, and punctuation that were not noted in checking the note before signing.
== END 2021-05-26 23:59 | disposition home or self-care (01) ==
PROVIDERS: PCP Internal Medicine; Referring Provider Physician Assistant Medical; Visit Provider Physician Assistant Medical
DX: R07.9 Chest pain, unspecified (principal)
CPT/HCPCS: 78452; 93017; A9500; A4216; J2785

== ENCOUNTER 2021-06-02 12:09 | Observation (INO) | payer MEDICARE, SELFPAY ==
[2021-06-02] VITALS (10 sets, daily range): BP systolic 144–160; BP diastolic 56–80; PULSE 57–71; RESP 16–23; TEMP 36.2–36.9; O2SAT 96–100; BMI 33.0; BMI 32.8
--- NOTE | 2021-06-02 13:21 | RAD_ITS ---
STUDY: X-RAY CHEST REASON FOR EXAM: Female, 65 years old. Chest pain TECHNIQUE: Single AP portable view of the chest. COMPARISON: Comparison is made with prior study dated 06/02/2021 at 11:59 AM. FINDINGS: EKG electrodes are seen. A loop recorder device is seen overlying the upper mid chest. Elevation of the right hemidiaphragm. The lungs are clear. There is no demonstrated pleural abnormality. Normal size heart. Normal mediastinum and mary. Normal visualized pulmonary arteries. Normal visualized aortic arch and descending thoracic aorta. There are diffuse degenerative changes of the visualized thoracic spine. Normal visualized ribs, clavicles, and shoulders. There is no demonstrated abnormality of the visualized soft tissue structures of the upper abdomen. RAD/Chest 1 View (Portable) IMPRESSION: No acute abnormality is seen. Electronically Signed: Gal Aparicio MD at 14:25 EST ,
--- NOTE | 2021-06-02 13:21 | EKG12_ITS ---
Test Reason : Blood Pressure : / mmHG Vent. Rate : 071 BPM Atrial Rate : 071 BPM P-R Int : 174 ms QRS Dur : 080 ms QT Int : 412 ms P-R-T Axes : 047 072 053 degrees QTc Int : 447 ms Normal sinus rhythm Nonspecific ST and T wave abnormality Abnormal ECG Confirmed by LAUREN SUÁREZ, PANCHITO ([id number]), videotape editor BIRDIE LERMA ([id number]) on 06/04/2021 8:13:06 AM Referred By: KERRY Confirmed By:PANCHITO AGUILAR MD
[2021-06-02 13:49] LABS: Absolute Lymphocyte Count 1.95 X10^3/uL (0.83-4.51); Absolute Neutrophil Count 1.9 X10^3/uL (2.0-7.7); Basophil# 0.02 X10^3/uL; Basophil% 0.5 % (0-1); Eosinophil# 0.07 X10^3/uL; Eosinophils% 1.6 % (0-5); Hematocrit 36.2 % (37-47); Lymphocyte # 1.95 X10^3/ul (0.83-4.51); Mean Corp Hgb Conc 33.1 g/dL (32-36); Mean Corpuscular Hgb 30.9 pg (27.0-32.0); Mean Corpuscular Volume 93.3 fL (81-99); Mean Platelet Vol. 8.9 fl (6.2-12.0); Monocyte# 0.44 X10^3/uL; Monocyte% 9.9 % (0-10); NRBC Flagged by Analyzer 0 % (0-5); Neutrophil # 1.94 X10^3/uL (2.7-7.7); Neutrophil % 43.8 % (47-70); Platelet Count 158 K/mm3 (150-450); RBC Distribution Width CV 13.2 % (11.6-14.6); RBC Distribution Width SD 45.3 fl (35.1-43.9); Red Blood Count 3.88 M/mm3 (4.2-5.4); White Blood Count 4.4 K/mm3 (4.4-11.0)
[2021-06-02 14:04] LABS: Anion Gap 5 (5-15); BUN 17 mg/dL (7-18); BUN/Creat Ratio 21.1 RATIO (10-20); Calcium,Total 9.4 mg/dL (8.5-10.1); Chloride 103 mmol/L (98-107); EST Glomerular Filtration Rate 76 mL/min (>60); Est Glom Filt Rate - Afr Amer 92 mL/min (>60); Glucose 99 mg/dL (74-106); Potassium 3.6 mmol/L (3.5-5.1); Sodium Level 140 mmol/L (136-145); Troponin-I HS 24 pg/mL (3.0-54.0)
--- NOTE | 2021-06-02 14:21 | EDS_ITS ---
HPI History of Present Illness Chief Complaint: Chest Pain Narrative Narrative: 65-year-old female presenting with chest pain. Patient was seen at Dr. Jimenez's office today and was advised to come to the ED if she continued to have chest pain. She states her pain has been a pressure sensation in her left chest that radiates to her left arm. Currently 7 out of 10. She states it has been intermittent. Denies associated shortness of breath, nausea, diaphoresis. She recently had an abnormal stress test and is scheduled for a heart cath on . Prior Similar Symptoms: Yes Recent Illness/Hospitalization: No CVD Risk Factors: Positive for Hypertension, Family History 1' </=55 and Smoking PE Risk Factors: Negative for Recent Travel/Surgery, Recent Immobilization, Prior DVT or PE, Cancer and OCP + Smoking + >/=35 PFSH PFSH Medical History (Updated 06/02/21 @ 15:[address] Haven Engel MD) Acute respiratory failure with hypoxia Allergies Anxiety Arthritis Asthma Back problem Cataract COVID-19 Depression Essential hypertension External hemorrhoid, thrombosed Fibrocystic breast disease Fibrocystic breast disease Fibromyalgia GERD (gastroesophageal reflux disease) Hearing problem Heart murmur Hypertension Hypoxemia Migraines Pneumonia due to COVID-19 virus Sciatica Home Medications hydrochlorothiazide 12.5 mg capsule 12.5 mg PO DAILY 30 Days #30 cap 05/02/18 [History Last Taken 06/02/21] losartan 25 mg tablet 25 mg PO DAILY 30 Days #30 tab 05/02/18 [History Last Taken 06/02/21] citalopram 40 mg tablet 40 mg PO DAILY 11/07/18 [History Last Taken 06/02/21] gabapentin 600 mg tablet 600 mg PO QHS PRN 11/07/18 [History Last Taken Unknown] gabapentin 100 mg PO DAILY PRN 01/06/19 [History Last Taken Unknown] albuterol sulfate 2.5 mg INHALATION Q4H PRN #180 ml 02/07/19 [Rx Last Taken Unk nown] albuterol sulfate 90 mcg/actuation aerosol inhaler 2 puff INHALATION Q4H PRN #1 device 07/11/19 [Rx Last Taken Unknown] pantoprazole 40 mg PO DAILY PRN 09/12/19 [History Last Taken 2 Days Ago ~0 05/31/21] fluticasone propionate 1 spray INTRANASAL BID PRN 05/04/20 [History Last Taken Unknown] montelukast 10 mg tablet 10 mg PO DAILY 07/29/20 [History Last Taken Unknown] budesonide-formoterol HFA 160 mcg-4.5 mcg/actuation aerosol inhaler 2 puff INHALATION BID #1 ea 03/31/21 [Rx Last Taken Unknown] metoprolol succinate 25 mg tablet,extended release 24 hr 12.5 mg PO DAILY #90 tab 05/15/21 [Rx Last Taken 06/02/21] benzonatate 100 mg capsule 100 mg PO TID PRN cap 05/22/21 [History Last Taken 2 Days Ago ~05/31/21] aspirin 81 mg tablet,delayed release 81 mg PO DAILY #30 tab 06/02/21 [Rx Last T aken 2 Days Ago ~05/31/21] cholecalciferol (vitamin D3) 125 mcg PO DAILY 06/02/21 [History Last Taken 06/02/21] clopidogrel 75 mg tablet 75 mg PO DAILY #30 tab 06/02/21 [Rx Last Taken Unknown] diphenhydramine HCl 25 mg capsule 25 mg PO .COMPLEX #4 cap 06/02/21 [Rx Last Taken Unknown] famotidine 20 mg tablet 20 mg PO .COMPLEX #2 tab 06/02/21 [Rx Last Taken Unknown] isosorbide mononitrate 30 mg tablet,extended release 24 hr 30 mg PO DAILY #30 tab 06/02/21 [Rx Last Taken Unknown] prednisone 20 mg tablet 20 mg PO .COMPLEX #9 tab 06/02/21 [Rx Last Taken Unknown] Allergy/AdvReac Type Severity Reaction Status Date / Time apple Allergy Hives Verified 06/02/21 09:56 banana Allergy Hives Verified 06/02/21 09:56 carrot Allergy Hives Verified 06/02/21 09:56 pineapple Allergy Itching Verified 06/02/21 09:56 shrimp Allergy Anaphylaxis Verified 06/02/21 09:56 amoxicillin AdvReac YEAST Verified 06/02/21 09:56 INFECTION lobster Allergy Anaphylaxis Uncoded 05/22/21 14:08 Family History Sister Breast cancer Mother Heart disease Enlarged heart Grandmother Enlarged heart Other Anxiety and depression Arthritis History of blood clots Hypertension Surgical History H/O tubal ligation History of removal of cyst Hx of appendectomy Social History Smoking Status: Former smoker quit date: 04/11/93 alcohol intake: current alcohol intake frequency: holidays/special occasions only Alcohol type: wine details: social substance use type: does not use caffeine: No additional social history: Does take aspirin daily Does not take Ibuprofen ROS ROS ED Constitutional Constitutional ED: Denies fever(s) Eyes Eyes: Denies change in vision ENT ENT ED: Denies rhinorrhea or sore throat Cardiovascular Cardiovascular: Reports chest pain; Denies palpitations Respiratory/Chest Respiratory/Chest: Denies cough or dyspnea Gastrointestinal Gastrointestinal: Denies abdominal pain, diarrhea, nausea or vomiting Genitourinary Genitourinary ED: Denies dysuria Musculoskeletal Musculoskeletal: Denies myalgias Integumentary Denies rash Neurologic Neurologic: Denies headache(s) Psychiatric Psychiatric: Denies suicidal thoughts EXAM Physical Exam Const Vital Signs: 06/02/21 12:09 06/02/21 13:44 06/02/21 14:45 Temperature 97.2 F L Temperature Source Temporal Pulse Rate 70 58 L 60 Respiratory Rate 16 18 23 H Blood Pressure 151/76 H 157/79 H 160/73 H Blood Pressure Mean 101 105 102 Pulse Ox 98 98 97 Oxygen Delivery Method Room Air Room Air Positive well nourished and well developed General Appearance ED: well developed HEENT Reports normocephalic and head/scalp atraumatic Eyes PERRL and EOMs intact bilaterally Neck supple General: Negative for tenderness Chest Wall inspection of chest normal Resp normal respiratory effort and clear to auscultation bilaterally Cardio regular rate and regular rhythm GI non-tender and non-distended Palpation: soft; Negative for guarding or rebound tenderness present no CVA tenderness Extremity normal to inspection Neuro oriented x3 Sensorium / Orientation: alert Psych mental status grossly normal Heart Score History: Highly Suspicious ECG: Nonspecific Repolarization Age: >45 - <65 years Risk Factors: >/= 3 Risk Factors or History of CAD Troponin: </= Normal Limit Score: 6 MDM MDM MDM Narrative Medical decision making narrative: Patient was given aspirin. EKG is sinus rhythm rate of [address] elevation. She was given morphine, Zofran IV. She is scheduled for heart catheterization on . CBC, chemistries unremarkable. Troponin is negative. She was told to take Plavix today and this was ordered. She is resting comfortably on reevaluation. Discussed with hospitalist for admission. Lab Data Attestation: I reviewed the patient's lab results. Labs: Laboratory Results - last 24 hr 06/02/21 06/02/21 13:35 13:35 WBC 4.4 RBC 3.88 L Hgb 12.0 Hct 36.2 L MCV 93.3 MCH 30.9 MCHC 33.1 RDW Std Deviation 45.3 H RDW Coeff of Domi 13.2 Plt Count 158 MPV 8.9 Immature Gran % (Auto) 0.200 Neut % (Auto) 43.8 L Lymph % (Auto) 44.0 H [place] % (Auto) 9.9 Eos % (Auto) 1.6 Baso % (Auto) 0.5 Absolute Neuts (auto) 1.9 L Absolute Lymphs (auto) 1.95 Nucleated RBC % 0 Sodium 140 Potassium 3.6 Chloride 103 Carbon Dioxide 32.0 Anion Gap 5 BUN 17 Creatinine 0.80 Estim Creat Clear Calc 79.40 Est GFR (MDRD) Af Amer 92 Est GFR (MDRD) Non-Af 76 BUN/Creatinine Ratio 21.1 H Glucose 99 Calcium 9.4 Troponin I High Sens 24 Radiography Chest X-Ray - ED: 1 View, Read by ED Physician and Read by Radiologist Diagnostic Testing: Clinical Impression(s) from Imaging Studies Chest X-Ray 06/02/21 13:21 IMPRESSION: No acute abnormality is seen. Electronically Signed: Gal Aparicio MD at 14:25 EST , Discharge Plan Triage Chief Complaint: Chest Pain ED Provider: Haven Engel Dx/Rx/DC Orders Clinical Impression: Chest pain Prescriptions: No Action losartan 25 mg tablet 25 mg PO DAILY 30 Days Qty: 30 RF: 0 hydrochlorothiazide 12.5 mg capsule 12.5 mg PO DAILY 30 Days Qty: 30 RF: 0 citalopram [Celexa] 40 mg tablet 40 mg PO DAILY RF: 0 gabapentin 600 mg tablet 600 mg PO QHS PRN (Reason: other) RF: 0 albuterol sulfate 2.5 mg /3 mL (0.083 %) solution for nebulization 2.5 mg INHALATION Q4H PRN (Reason: Sob &/Or Wheezing) Qty: 180 RF: 3 albuterol sulfate [Ventolin HFA] 90 mcg/actuation HFA aerosol inhaler 2 puff INHALATION Q4H PRN (Reason: shortness of breath or wheezing) Qty: 1 RF: 3 budesonide-formoterol [Symbicort] 160-4.5 mcg/actuation HFA aerosol inhaler 2 puff inhalation BID Qty: 1 RF: 3 montelukast [Singulair] 10 mg tablet 10 mg PO DAILY RF: 0 metoprolol succinate 25 mg tablet extended release 24 hr 12.5 mg PO DAILY Qty: 90 RF: 3 benzonatate 100 mg capsule 100 mg PO TID PRN (Reason: Cough) RF: 0 prednisone 20 mg tablet 20 mg PO .COMPLEX Qty: 9 RF: 0 famotidine [Pepcid AC] 20 mg tablet 20 mg PO .COMPLEX Qty: 2 RF: 0 diphenhydramine HCl [Benadryl] 25 mg capsule 25 mg PO .COMPLEX Qty: 4 RF: 0 isosorbide mononitrate 30 mg tablet extended release 24 hr 30 mg PO DAILY Qty: 30 RF: 0 clopidogrel [Plavix] 75 mg tablet 75 mg PO DAILY Qty: 30 RF: 0 aspirin [Adult Aspirin Regimen] 81 mg tablet,delayed release (DR/EC) 81 mg PO DAILY Qty: 30 RF: 0 gabapentin 100 MG capsule 100 mg PO DAILY PRN (Reason: Pain Score 1-10/10) RF: 0 pantoprazole 40 MG tablet,delayed release (DR/EC) 40 mg PO DAILY PRN (Reason: ALLERGIES) RF: 0 fluticasone propionate 16 GM spray,suspension 1 spray INTRANASAL BID PRN (Reason: Congestion) RF: 0 cholecalciferol (vitamin D3) 125 mcg (5,000 unit) Capsule 125 mcg PO DAILY RF: 0 Primary Care Provider: Alaina Tariq Referrals: Alaina Tariq MD [Primary Care Provider] - Disposition Disposition: Acute Care Hospital
[2021-06-02] MEDS: Aspirin 81 MG TAB.CHEW 324 MG PO (14:30)
[2021-06-02] MEDS: Ondansetron 4 MG/2 ML Vial IV (14:31)
[2021-06-02] MEDS: Morphine 4 MG/ML Syringe IV (14:31)
--- NOTE | 2021-06-02 15:06 | NURSING ---
PCU OBS WHITE CP
[2021-06-02] MEDS: Clopidogrel Bisulfate 300 MG Tablet PO (15:09)
--- NOTE | 2021-06-02 15:14 | PCM.HP.STD ---
Documented by User: Ryland SON 06/02/21 15:40 HPI - General General Date of Admission: 06/02/21 Date of Service: 06/02/21 Chief Complaint: Chest pain HPI Narrative YADIEL FLOREZ is a 65-year-old female who presents to the ED at [facility] on 06/02/2021 with a chief complaint of chest pain. Patient reports that for the past day or so she has been having intermittent chest pain which began in the left side of her chest and radiates to her left arm. Patient reports that the pain is worse with exertion, but does not necessarily get better with rest. Patient reports that pain comes and goes randomly. Patient does report that she has dyspnea on exertion, but denies palpitations, sputum production or hemoptysis. Patient denies any recent illness or infectious symptoms to include fever, chills, N/V/D. Of note, patient had an abnormal stress test on 05/26 and was scheduled to undergo cardiac catheterization by Dr. Jimenez on 06/04/2021. LVEF on stress test was noted to be 66%. Vital signs in the ED are temperature of 97.2 ?F, HR 60, BP of 160/73, RR of 20 and patient is currently satting at 97% on room air. Chest x-ray is unremarkable and without any acute cardiopulmonary process. CBC is unremarkable. BMP is unremarkable. Initial high-sensitivity troponin within normal limits. [facility] Medical History Acute respiratory failure with hypoxia Allergies Anxiety Arthritis Asthma Back problem Cataract COVID-19 Depression Essential hypertension External hemorrhoid, thrombosed Fibrocystic breast disease Fibrocystic breast disease Fibromyalgia GERD (gastroesophageal reflux disease) Hearing problem Heart murmur Hypertension Hypoxemia Migraines Pneumonia due to COVID-19 virus Sciatica Home Medications hydrochlorothiazide 12.5 mg capsule 12.5 mg PO DAILY 30 Days #30 cap 05/02/18 [History Last Taken 06/02/21] losartan 25 mg tablet 25 mg PO DAILY 30 Days #30 tab 05/02/18 [History Last Taken 06/02/21] citalopram 40 mg tablet 40 mg PO DAILY 11/07/18 [History Last Taken 06/02/21] gabapentin 600 mg tablet 600 mg PO QHS PRN 11/07/18 [History Last Taken Unknown] gabapentin 100 mg PO DAILY PRN 01/06/19 [History Last Taken Unknown] albuterol sulfate 2.5 mg INHALATION Q4H PRN #180 ml 02/07/19 [Rx Last Taken Unknown] albuterol sulfate 90 mcg/actuation aerosol inhaler 2 puff INHALATION Q4H PRN #1 device 07/11/19 [Rx Last Taken Unknown] pantoprazole 40 mg PO DAILY PRN 09/12/19 [History Last Taken 2 Days Ago ~05/31/21] fluticasone propionate 1 spray INTRANASAL BID PRN 05/04/20 [History Last Taken Unknown] montelukast 10 mg tablet 10 mg PO DAILY 07/29/20 [History Last Taken Unknown] budesonide-formoterol HFA 160 mcg-4.5 mcg/actuation aerosol inhaler 2 puff INHALATION BID #1 ea 03/31/21 [Rx Last Taken Unknown] metoprolol succinate 25 mg tablet,extended release 24 hr 12.5 mg PO DAILY #90 tab 05/15/21 [Rx Last Taken 06/02/21] benzonatate 100 mg capsule 100 mg PO TID PRN cap 05/22/21 [History Last Taken 2 Days Ago ~05/31/21] aspirin 81 mg tablet,delayed release 81 mg PO DAILY #30 tab 06/02/21 [Rx Last Taken 2 Days Ago ~05/31/21] cholecalciferol (vitamin D3) 125 mcg PO DAILY 06/02/21 [History Last Taken 06/02/21] clopidogrel 75 mg tablet 75 mg PO DAILY #30 tab 06/02/21 [Rx Last Taken Unknown] diphenhydramine HCl 25 mg capsule 25 mg PO .COMPLEX #4 cap 06/02/21 [Rx Last Taken Unknown] famotidine 20 mg tablet 20 mg PO .COMPLEX #2 tab 06/02/21 [Rx Last Taken Unknown] isosorbide mononitrate 30 mg tablet,extended release 24 hr 30 mg PO DAILY #30 tab 06/02/21 [Rx Last Taken Unknown] prednisone 20 mg tablet 20 mg PO .COMPLEX #9 tab 06/02/21 [Rx Last Taken Unknown] Allergy/AdvReac Type Severity Reaction Status Date / Time apple Allergy Hives Verified 06/02/21 09:56 banana Allergy Hives Verified 06/02/21 09:56 carrot Allergy Hives Verified 06/02/21 09:56 pineapple Allergy Itching Verified 06/02/21 09:56 shrimp Allergy Anaphylaxis Verified 06/02/21 09:56 amoxicillin AdvReac YEAST Verified 06/02/21 09:56 INFECTION lobster Allergy Anaphylaxis Uncoded 05/22/21 14:08 Family History (Updated 06/02/21 @ 16:[address] Brianna Foss MD) Sister Breast cancer Mother Heart disease Enlarged heart Hx of CABG CABG x 4. Rheumatoid arthritis Grandmother Enlarged heart Father Diabetes Other Anxiety and depression Arthritis History of blood clots Hypertension Surgical History H/O tubal ligation History of removal of cyst Hx of appendectomy Social History (Updated 06/02/21 @ 16:[address] Brianna Foss MD) household members: spouse Smoking Status: Former smoker quit date: 04/11/93 alcohol intake: current alcohol intake frequency: holidays/special occasions only Alcohol type: wine details: social substance use type: does not use caffeine: No additional social history: Does take aspirin daily Does not take Ibuprofen ROS Constitutional Constitutional: Denies anorexia, change in weight, chills, fatigue, fever(s), malaise, night sweats, weakness or other Eyes Eyes: Denies blurry vision, change in eye color, change in vision, discharge from eye(s), double vision, erythema, eye pain, loss of vision or other ENT HEENT: Denies abnormal hearing, dysphagia, ear pain, epistaxis, headache(s), hearing loss, nasal congestion, nasal discharge, post nasal drip, sinus pressure, sore throat or other Cardiovascular Cardiovascular: Reports chest pain and dyspnea on exertion; Denies claudication, edema, lightheadedness, orthopnea, palpitations, paroxysmal nocturnal dyspnea, rapid heart rate, syncope or other Respiratory/Chest Respiratory/Chest: Reports dyspnea and shortness of breath with exertion; Denies cough, excessive phlegm production, hemoptysis, productive cough, shortness of breath at rest, wheezing or other Gastrointestinal Gastrointestinal: Denies abdominal pain, coffee ground emesis, constipation, diarrhea, dyspepsia, hematemesis, hematochezia, loose stools, melena, nausea, vomiting or other Genitourinary Genitourinary: Denies burning urination, difficulty urinating, dysuria, hematuria, nocturia, urinary frequency, urinary hesitancy, urinary incontinence, urinary urgency or other Musculoskeletal Musculoskeletal: Denies arthralgias, back pain, joint pain, joint stiffness, joint swelling, myalgias, neck pain or other Neurologic Neurologic: Denies abnormal gait, abnormal speech, confusion, disequilibrium, dizziness, focal weakness, headache(s), numbness, paresthesias, seizure-like activity, seizures, syncope, tingling, tremor(s) or other Psychiatric Psychiatric: Denies anxiety, depression, homicidal ideation, suicidal ideation or other Endocrine Endocrinology: Denies change in body appearance, cold intolerance, excessive sweating, heat intolerance, polydipsia, polyuria or other Hematologic/Lymphatic Hematologic/Lymphatic: Denies anemia, easy bleeding, easy bruising, lymphadenopathy or other Allergic/Immunologic Allergic/Immunologic: Denies rhinitis, hives, eczemia, asthma or other Vital Signs Vital Signs Vital Signs: 06/02/21 12:09 06/02/21 13:44 06/02/21 14:45 Temperature 97.2 F L Temperature Source Temporal Pulse Rate 70 58 L 60 Respiratory Rate 16 18 23 H Blood Pressure 151/76 H 157/79 H 160/73 H Blood Pressure Mean 101 105 102 Pulse Ox 98 98 97 Oxygen Delivery Method Room Air Room Air 06/02/21 15:13 Temperature 97.2 F L Temperature Source Temporal Pulse Rate 60 Respiratory Rate 23 H Blood Pressure 160/73 H Blood Pressure Mean 102 Pulse Ox 97 Oxygen Delivery Method Room Air Weight Weight: 237 lb Body Mass Index (BMI) 33.0 Physical Exam Const alert and oriented x3 General Appearance: cooperative HEENT normocephalic, head/scalp atraumatic and hearing grossly normal bilaterally Eyes PERRL, EOMs intact bilaterally and conjunctivae normal Neck no lymphadenopathy, supple and no JVD Resp normal respiratory effort, no retractions and no use of accessory muscles Cardio regular rhythm and no JVD Rate: tachycardic GI normal to inspection, nondistended, normoactive bowel sounds Extremity normal to inspection Skin no rashes or lesions noted Neuro CN's II-XII intact bilaterally Psych affect normal Results Lab / Micro Data Result Diagrams: 06/02/21 13:35 06/02/21 13:35 Labs: Laboratory Results - last 24 hr 06/02/21 13:35: WBC 4.4, RBC 3.88 L, Hgb 12.0, Hct 36.2 L, MCV 93.3, MCH 30.9, MCHC 33.1, RDW Std Deviation 45.3 H, RDW Coeff of Domi 13.2, Plt Count 158, MPV 8.9, Immature Gran % (Auto) 0.200, Neut % (Auto) 43.8 L, Lymph % (Auto) 44.0 H, [place] % (Auto) 9.9, Eos % (Auto) 1.6, Baso % (Auto) 0.5, Absolute Neuts (auto) 1.9 L, Absolute Lymphs (auto) 1.95, Nucleated RBC % 0 06/02/21 13:35: Sodium 140, Potassium 3.6, Chloride 103, Carbon Dioxide 32.0, Anion Gap 5, BUN 17, Creatinine 0.80, Estim Creat Clear Calc 79.40, Est GFR (MDRD) Af Amer 92, Est GFR (MDRD) Non-Af 76, BUN/Creatinine Ratio 21.1 H, Glucose 99, Calcium 9.4, Troponin I High Sens 24 Radiology Impression Chest X-Ray 06/02/21 13:21 IMPRESSION: No acute abnormality is seen. Electronically Signed: Gal Aparicio MD at 14:25 EST , Assessment & Plan Assessment/Plan (1) Chest pain: QUALIFIERS: Chest pain type: precordial chest pain Qualified Code(s): R07.2 - Precordial pain (2) Abnormal nuclear stress test: PLAN: Patient is a 65-year-old female who presents to the ED at [facility] on 06/02/2021 with a chief complaint of chest pain in the setting of recent abnormal stress test. Patient will be admitted for evaluation and management of angina. 1) chest pain Heart score is 6 for history, age and risk factors. EKG obtained in the ED was NSR with no acute ST or T wave changes. Patient did have an abnormal stress test on 05/26 with a noted EF of 66%, plan at that time was to proceed with cardiac catheterization on 06/[address] Jimenez. Plan; admit to PCU, cardiology consult ordered, continue to monitor cardiac enzymes, heart healthy diet ordered, n.p.o. at midnight on 06/04 in preparation for cardiac catheterization, PT/OT eval ordered, case management consult ordered, CBC and CMP in a.m., fasting lipid panel in a.m., TSH ordered, mag level ordered, as needed medications ordered, continue aspirin and Plavix. 2) Hx of recent COVID-19 infection Patient was recently discharged from [facility] on 04/22/2021 for acute hypoxic respiratory failure secondary to COVID-19 infection. During stay patient was managed on Decadron and supplemental oxygen. Was not a candidate for remdesivir. Patient was discharged on room air. Low suspicion that chest pain is related to PE/DVT as respiratory status is not compromised, patient is without tachycardia and given recent abnormal stress test. 3) HTN Continue hydrochlorothiazide, metoprolol, lisinopril and isosorbide. 4) asthma Home regimen on hold, as needed albuterol ordered. 5) GERD Continue PPI. 6) neuropathy Continue gabapentin. CODE STATUS: Full code DVT prophylaxis - Lovenox plus SCDs. Patient seen by Ryland Watkins PA-C, under the supervision of Dr. Foss. Time spent on patient care: 25 minutes. Documented by User: Dr. Brianna Foss MD 06/02/21 16:07 HPI - General General Date of Admission: 06/02/21 [facility] Medical History Acute respiratory failure with hypoxia Allergies Anxiety Arthritis Asthma Back problem Cataract COVID-19 Depression Essential hypertension External hemorrhoid, thrombosed Fibrocystic breast disease Fibrocystic breast disease Fibromyalgia GERD (gastroesophageal reflux disease) Hearing problem Heart murmur Hypertension Hypoxemia Migraines Pneumonia due to COVID-19 virus Sciatica Home Medications hydrochlorothiazide 12.5 mg capsule 12.5 mg PO DAILY 30 Days #30 cap 05/02/18 [History Last Taken 06/02/21] losartan 25 mg tablet 25 mg PO DAILY 30 Days #30 tab 05/02/18 [History Last Taken 06/02/21] citalopram 40 mg tablet 40 mg PO DAILY 11/07/18 [History Last Taken 06/02/21] gabapentin 600 mg tablet 600 mg PO QHS PRN 11/07/18 [History Last Taken Unknown] gabapentin 100 mg PO DAILY PRN 01/06/19 [History Last Taken Unknown] albuterol sulfate 2.5 mg INHALATION Q4H PRN #180 ml 02/07/19 [Rx Last Taken Unknown] albuterol sulfate 90 mcg/actuation aerosol inhaler 2 puff INHALATION Q4H PRN #1 device 07/11/19 [Rx Last Taken Unknown] pantoprazole 40 mg PO DAILY PRN 09/12/19 [History Last Taken 2 Days Ago ~05/31/21] fluticasone propionate 1 spray INTRANASAL BID PRN 05/04/20 [History Last Taken Unknown] montelukast 10 mg tablet 10 mg PO DAILY 07/29/20 [History Last Taken Unknown] budesonide-formoterol HFA 160 mcg-4.5 mcg/actuation aerosol inhaler 2 puff INHALATION BID #1 ea 03/31/21 [Rx Last Taken Unknown] metoprolol succinate 25 mg tablet,extended release 24 hr 12.5 mg PO DAILY #90 tab 05/15/21 [Rx Last Taken 06/02/21] benzonatate 100 mg capsule 100 mg PO TID PRN cap 05/22/21 [History Last Taken 2 Days Ago ~05/31/21] aspirin 81 mg tablet,delayed release 81 mg PO DAILY #30 tab 06/02/21 [Rx Last Taken 2 Days Ago ~05/31/21] cholecalciferol (vitamin D3) 125 mcg PO DAILY 06/02/21 [History Last Taken 06/02/21] clopidogrel 75 mg tablet 75 mg PO DAILY #30 tab 06/02/21 [Rx Last Taken Unknown] diphenhydramine HCl 25 mg capsule 25 mg PO .COMPLEX #4 cap 06/02/21 [Rx Last Taken Unknown] famotidine 20 mg tablet 20 mg PO .COMPLEX #2 tab 06/02/21 [Rx Last Taken Unknown] isosorbide mononitrate 30 mg tablet,extended release 24 hr 30 mg PO DAILY #30 tab 06/02/21 [Rx Last Taken Unknown] prednisone 20 mg tablet 20 mg PO .COMPLEX #9 tab 06/02/21 [Rx Last Taken Unknown] Allergy/AdvReac Type Severity Reaction Status Date / Time apple Allergy Hives Verified 06/02/21 09:56 banana Allergy Hives Verified 06/02/21 09:56 carrot Allergy Hives Verified 06/02/21 09:56 pineapple Allergy Itching Verified 06/02/21 09:56 shrimp Allergy Anaphylaxis Verified 06/02/21 09:56 amoxicillin AdvReac YEAST Verified 06/02/21 09:56 INFECTION lobster Allergy Anaphylaxis Uncoded 05/22/21 14:08 Family History (Updated 06/02/21 @ 16:[address] Brianna Foss MD) Sister Breast cancer Mother Heart disease Enlarged heart Hx of CABG CABG x 4. Rheumatoid arthritis Grandmother Enlarged heart Father Diabetes Other Anxiety and depression Arthritis History of blood clots Hypertension Surgical History H/O tubal ligation History of removal of cyst Hx of appendectomy Social History (Updated 06/02/21 @ 16:[address] Brianna Foss MD) household members: spouse Smoking Status: Former smoker quit date: 04/11/93 alcohol intake: current alcohol intake frequency: holidays/special occasions only Alcohol type: wine details: social substance use type: does not use caffeine: No additional social history: Does take aspirin daily Does not take Ibuprofen Results Lab / Micro Data Result Diagrams: 06/02/21 13:35 06/02/21 13:35
--- NOTE | 2021-06-02 16:35 | EKG12_ITS ---
Test Reason : ADMISSION Blood Pressure : / mmHG Vent. Rate : 054 BPM Atrial Rate : 054 BPM P-R Int : 212 ms QRS Dur : 080 ms QT Int : 446 ms P-R-T Axes : 050 057 060 degrees QTc Int : 422 ms Sinus bradycardia with 1st degree A-V block Nonspecific ST and T wave abnormality Confirmed by LAUREN SUÁREZ, PANCHITO ([id number]), food expeditor BIRDIE LERMA ([id number]) on 06/04/2021 8:30:29 AM Referred By: BRENDEN Confirmed By:PANCHITO AGUILAR MD
[2021-06-02] MEDS: 0.9% Normal Saline 1,000 ML 100 ML IV (17:08)
[2021-06-02] MEDS: 0.9% Saline Lock 10 ML Syringe IV (17:08)
[2021-06-02 18:46] LABS: Troponin-I HS 24 pg/mL (3.0-54.0)
--- NOTE | 2021-06-02 19:44 | PCM.CONS.C ---
Assessment & Plan Assessment/Plan (1) Unstable angina: PLAN: The patient has symptoms which are concerning for unstable angina pectoris. She has an abnormal pharmacologic stress nuclear imaging study as noted above. At the present time her cardiac enzymes are negative. Her ECG is demonstrated no new acute ECG changes. She is recommended for further evaluation with diagnostic cardiac catheterization. The procedure and risks of been discussed with her. She was agreeable to this approach. In the interim she will continue medical therapy. This will include her aspirin, clopidogrel/Plavix, nitrates, beta-blockers (with adjustment of dose based upon concerns of underlying bradycardia), afterload reducing agents as deemed appropriate, and lipid-lowering agents. Additional agents such as anticoagulants can be used as deemed appropriate. (2) Abnormal stress test: PLAN: The patient stress nuclear imaging study is as noted above. Again she will continue to be monitored, continue medical therapy, and proceed with further evaluation with diagnostic cardiac catheterization. (3) Bradycardia: PLAN: The patient's cardiac rate and rhythm will be monitored. Her medications can be adjusted accordingly. (4) Essential hypertension: PLAN: The patient's blood pressure also be followed. Her medications can be adjusted taking into consideration her other comorbidities. (5) GERD (gastroesophageal reflux disease): QUALIFIERS: Esophagitis presence: esophagitis presence not specified Qualified Code(s): K21.9 - Gastro-esophageal reflux disease without esophagitis PLAN: The patient has a history of GERD and gallbladder related disease. However, she states the symptoms are different from those. Depending upon her cardiac catheterization findings she may or may not need further gastrointestinal related evaluation as well. (6) COVID-19: PLAN: The patient did experience COVID-19 in March, and April,. She states she has been recuperating from that and feels that she has been improving overall with the exception of concerns of her chest discomfort. Addt'l Comments The patient denies symptoms considered classic for angina pectoris, CHF / pulmonary edema (with respect to orthopnea / PND), ongoing palpitations, or near syncope / syncope. HPI Consult Data Date of Consult: 06/02/21 HPI Narrative HPI Narrative: YADIEL FLOREZ, is a 65 year old -[place] female who presents for cardiovascular consultation for chest discomfort and an abnormal stress test for consideration for diagnostic cardiac catheterization. The patient has a history of a cardiac murmur, hypertension, GERD, gallbladder disease, asthma, and fibromyalgia and COVID-19 (March,/April,). Since her COVID-19 experience she had been noting concerns of her heart rate being slower . She was evaluated and her cardiovascular medical therapy was adjusted. She believes her heart rate has improved. She has been having episodes of chest discomfort which she states is random. She notes she has episodes of chest pressure, chest burning, and then sometimes sharp discomfort. She points to the area under her left breast but then states sometimes it radiates to her left shoulder to her left upper extremity. She has had nausea but no emesis. She believes one episode she had diaphoresis. She also believes this seems to affect her breathing somewhat but is unclear as to whether this is related to her chest discomfort or still related to her previous exposure to COVID-19. She has had no orthopnea or PND or peripheral pitting edema. There is been no near-syncope or syncope. Based upon her chest discomfort she underwent a pharmacologic stress nuclear imaging study. The results are noted below. Based upon the results she was asked to consider future evaluation with diagnostic cardiac catheterization. The procedure and risks have been discussed with her. She was agreeable to this approach. However, based upon her ongoing symptoms she elected to present to the hospital for additional evaluation and care as opposed to waiting for her upcoming procedure that was scheduled for 06-04-2021. She has had a troponin I level performed which was negative. It was repeated and demonstrated no change. Her ECG demonstrated sinus rhythm/sinus bradycardia with a first-degree AV block with a nonspecific ST/T wave abnormality. She had a chest x-ray performed which suggested no acute cardiopulmonary disease per radiology. She did undergo a chest CTA on 04-19-2021. At that time per the radiology impression she had no evidence of thromboembolic disease. She had extensive diffuse patchy bilateral infiltrates consistent with multifocal pneumonia including COVID-19 . [facility] Medical History (Updated 06/02/21 @ 19:[address] Talon Jimenez MD) Abnormal stress test Acute respiratory failure with hypoxia Allergies Anxiety Arthritis Asthma Back problem Cataract COVID-19 Depression Essential hypertension External hemorrhoid, thrombosed Fibrocystic breast disease Fibrocystic breast disease Fibromyalgia GERD (gastroesophageal reflux disease) Hearing problem Heart murmur Hypertension Hypoxemia Migraines Pneumonia due to COVID-19 virus Sciatica Unstable angina Home Medications hydrochlorothiazide 12.5 mg capsule 12.5 mg PO DAILY 30 Days #30 cap 05/02/18 [History Last Taken 06/02/21] losartan 25 mg tablet 25 mg PO DAILY 30 Days #30 tab 05/02/18 [History Last Taken 06/02/21] citalopram 40 mg tablet 40 mg PO DAILY 11/07/18 [History Last Taken 06/02/21] gabapentin 600 mg tablet 600 mg PO QHS PRN 11/07/18 [History Last Taken Unknown] gabapentin 100 mg PO DAILY PRN 01/06/19 [History Last Taken Unknown] albuterol sulfate 2.5 mg INHALATION Q4H PRN #180 ml 02/07/19 [Rx Last Taken Unknown] albuterol sulfate 90 mcg/actuation aerosol inhaler 2 puff INHALATION Q4H PRN #1 device 07/11/19 [Rx Last Taken Unknown] pantoprazole 40 mg PO DAILY PRN 09/12/19 [History Last Taken 2 Days Ago ~05/31/21] fluticasone propionate 1 spray INTRANASAL BID PRN 05/04/20 [History Last Taken Unknown] montelukast 10 mg tablet 10 mg PO DAILY 07/29/20 [History Last Taken Unknown] budesonide-formoterol HFA 160 mcg-4.5 mcg/actuation aerosol inhaler 2 puff INHALATION BID #1 ea 03/31/21 [Rx Last Taken Unknown] metoprolol succinate 25 mg tablet,extended release 24 hr 12.5 mg PO DAILY #90 tab 05/15/21 [Rx Last Taken 06/02/21] benzonatate 100 mg capsule 100 mg PO TID PRN cap 05/22/21 [History Last Taken 2 Days Ago ~05/31/21] aspirin 81 mg tablet,delayed release 81 mg PO DAILY #30 tab 06/02/21 [Rx Last Taken 2 Days Ago ~05/31/21] cholecalciferol (vitamin D3) 125 mcg PO DAILY 06/02/21 [History Last Taken 06/02/21] clopidogrel 75 mg tablet 75 mg PO DAILY #30 tab 06/02/21 [Rx Last Taken Unknown] diphenhydramine HCl 25 mg capsule 25 mg PO .COMPLEX #4 cap 06/02/21 [Rx Last Taken Unknown] famotidine 20 mg tablet 20 mg PO .COMPLEX #2 tab 06/02/21 [Rx Last Taken Unknown] isosorbide mononitrate 30 mg tablet,extended release 24 hr 30 mg PO DAILY #30 tab 06/02/21 [Rx Last Taken Unknown] prednisone 20 mg tablet 20 mg PO .COMPLEX #9 tab 06/02/21 [Rx Last Taken Unknown] Allergy/AdvReac Type Severity Reaction Status Date / Time apple Allergy Hives Verified 06/02/21 09:56 banana Allergy Hives Verified 06/02/21 09:56 carrot Allergy Hives Verified 06/02/21 09:56 pineapple Allergy Itching Verified 06/02/21 09:56 shrimp Allergy Anaphylaxis Verified 06/02/21 09:56 amoxicillin AdvReac YEAST Verified 06/02/21 09:56 INFECTION lobster Allergy Anaphylaxis Uncoded 05/22/21 14:08 Family History (Updated 06/02/21 @ 16:[address] Brianna Foss MD) Sister Breast cancer Mother Heart disease Enlarged heart Hx of CABG CABG x 4. Rheumatoid arthritis Grandmother Enlarged heart Father Diabetes Other Anxiety and depression Arthritis History of blood clots Hypertension Surgical History H/O tubal ligation History of removal of cyst Hx of appendectomy Social History (Updated 06/02/21 @ 16:[address] Brianna Foss MD) household members: spouse Smoking Status: Former smoker quit date: 04/11/93 alcohol intake: current alcohol intake frequency: holidays/special occasions only Alcohol type: wine details: social substance use type: does not use caffeine: No additional social history: Does take aspirin daily Does not take Ibuprofen ROS Constitutional Constitutional: Reports as per HPI Eyes Eyes: Reports as per HPI ENT HEENT: Reports as per HPI Cardiovascular Cardiovascular: Reports chest pain, chest pain at rest, diaphoresis, dyspnea and nausea Respiratory/Chest Respiratory/Chest: Reports dyspnea Gastrointestinal Gastrointestinal: Reports nausea Genitourinary Genitourinary: Reports as per HPI Musculoskeletal Musculoskeletal: Reports as per HPI Integumentary Integumentary: Reports as per HPI Neurologic Neurologic: Reports as per HPI Psychiatric Psychiatric: Reports as per HPI Physical Exam Narrative This is a 65-year-old female who appears resting reasonably comfortably at the moment in no acute distress. Const alert, oriented x3 and healthy appearing Orientation / Consciousness: awake HEENT normocephalic, head/scalp atraumatic and hearing grossly normal bilaterally Eyes PERRL, EOMs intact bilaterally and conjunctivae normal Neck full ROM, supple and no JVD Resp clear to auscultation bilaterally Cardio regular rate, regular rhythm, S1 normal heart sound and S2 normal heart sound Heart Sounds: murmur systolic II/ soft mid left sternal border and LVOT GI normal to inspection, nondistended, normoactive bowel sounds Extremity no pedal edema Skin no rashes or lesions noted Neuro oriented x3, moves all extremities and no focal motor deficits Psych mental status grossly normal Risk Stratification Risk Stratification Applicable: Yes Age >/= 65: No >/= 3 CAD Risk Factors (HTN, HLD, DM, family hx of CAD, or current smoker): No Aspirin Use in the Past 7 Days: No Severe Angina (>/= episodes in 24 hours): Yes EKG ST Changes >/= 0.5mm: No Positive Cardiac Marker: No LANA Risk Stratification Score: 1 LANA % Risk: 5% Risk Procedure Criteria Type of Procedure Procedure Type: Elective Elective Risks - COVID COVID Risk Discussion: The surgeon/proceduralist and patient have discussed in detail the risk of exposure to and/or potential harm posed by the COVID-19 virus with having a surgery/procedure at this time versus the risk of delaying the surgery/procedure. It is not possible to know either the risk of delaying the surgery or procedure or chance of getting an infection with perfect accuracy, but a joint decision was made between the patient and the surgeon/proceduralist to proceed at this time with the scheduled surgery/procedure as indicated on the consent form. Objective Data Vital Signs: Vital Signs Temp Pulse Resp BP Pulse Ox 97.4 F L 57 L 16 158/80 H 96 06/02/21 16:42 06/02/21 17:29 06/02/21 16:42 06/02/21 16:42 06/02/21 17:10 Oxygen Delivery Method Room Air Weight: 239 lb 1.6 oz Body Mass Index (BMI) 32.8 Intake & Output: Intake and Output for Last 24 Hours 05/31/21 06/01/21 06/02/21 23:59 23:59 23:59 Intake Total 240 / 240 Balance 240 / 240 Lab / Micro Data Result Diagrams: 06/02/21 13:35 06/02/21 13:35 Labs: Laboratory Results - last 24 hr 06/02/21 13:35: WBC 4.4, RBC 3.88 L, Hgb 12.0, Hct 36.2 L, MCV 93.3, MCH 30.9, MCHC 33.1, RDW Std Deviation 45.3 H, RDW Coeff of Domi 13.2, Plt Count 158, MPV 8.9, Immature Gran % (Auto) 0.200, Neut % (Auto) 43.8 L, Lymph % (Auto) 44.0 H, [place] % (Auto) 9.9, Eos % (Auto) 1.6, Baso % (Auto) 0.5, Absolute Neuts (auto) 1.9 L, Absolute Lymphs (auto) 1.95, Nucleated RBC % 0 06/02/21 13:35: Sodium 140, Potassium 3.6, Chloride 103, Carbon Dioxide 32.0, Anion Gap 5, BUN 17, Creatinine 0.80, Estim Creat Clear Calc 79.40, Est GFR (MDRD) Af Amer 92, Est GFR (MDRD) Non-Af 76, BUN/Creatinine Ratio 21.1 H, Glucose 99, Calcium 9.4, Troponin I High Sens 24 06/02/21 13:35: Magnesium 2.0 06/02/21 17:30: Troponin I High Sens 24, TSH 1.30 Cardiology Labs/Tests 06/02/21 13:35: WBC 4.4, RBC 3.88 L, Hgb 12.0, Hct 36.2 L, MCV 93.3, MCH 30.9, MCHC 33.1, Plt Count 158, MPV 8.9, Immature Gran % (Auto) 0.200, Neut % (Auto) 43.8 L, Lymph % (Auto) 44.0 H, [place] % (Auto) 9.9, Eos % (Auto) 1.6, Baso % (Auto) 0.5, Absolute Neuts (auto) 1.9 L, Nucleated RBC % 0 06/02/21 13:35: Sodium 140, Potassium 3.6, Chloride 103, Carbon Dioxide 32.0, Anion Gap 5, BUN 17, Creatinine 0.80, Est GFR (MDRD) Af Amer 92, Est GFR (MDRD) Non-Af 76, BUN/Creatinine Ratio 21.1 H, Glucose 99, Calcium 9.4 06/02/21 13:35: Magnesium 2.0 Rhythm: Sinus rhythm EKG: As noted above ECHO: 06-19-2020 Interpretation Summary The study was technically difficult. Left ventricular systolic function is normal. The estimated ejection fraction is 55 %. The left atrium is mildly enlarged. Mild diffuse mitral valve thickening. Trivial mitral valve insufficiency. Trivial tricuspid valve insufficiency. Mild diffuse aortic valve thickening. Trivial pulmonic valve insufficiency. Right ventricular systolic pressure estimated to be 32 mmHg. No evidence for diastolic dysfunction. Stress Test: Stress Test Report Date: 05-26-2021 Procedure: Pharmacologic stress nuclear imaging study Indications: Chest pain; fibromyalgia; COVID-19 Consent: Per the patient Procedure: The patient underwent pharmacologic (Regadenoson 0.4mg ) evaluation with a peak heart rate of 90 beats per minute (57%predicted maximal heart rate) and a peak blood pressure of 140/80 mmHg. The baseline ECG demonstrated sinus bradycardia. The peak pharmacologic ECG demonstrated no obvious ECG changes. There were no cardiac dysrhythmias pretest, during pharmacologic infusion, or recovery. There was no complaint of chest discomfort during pharmacologic infusion or recovery. The examination was discontinued secondary to completion of protocol. Impression: 1. Pharmacologic (Regadenoson) evaluation 2. Peak pharmacologic ECG with no obvious ECG changes. 3. There were no cardiac dysrhythmias pretest, during pharmacologic infusion, or recovery. 4. Nuclear images pending Myocardial perfusion imaging study: Technique: The patient was injected with 14.1 millicuries of technetium 99m Cardiolite and subsequently rest SPECT Cardiolite nuclear imaging was obtained in the horizontal long, vertical long, and short axis views. The patient underwent pharmacologic (Regadenoson) evaluation with a peak heart rate of 90 beats per minute (57% percent predicted maximal heart rate) and a peak blood pressure of 140/8 mmHg. The patient was injected with 44.5 millicuries of technetium 99m Cardiolite and subsequently stress SPECT Cardiolite nuclear imaging was obtained in the horizontal long, vertical long, and short axis views. A gated Cardiolite study at peak stress was obtained. Interpretation: Rest and stress SPECT Cardiolite nuclear imaging status post realignment, normalization, and attenuation correction demonstrate on the preattenuation correction images relative uniform tracer uptake/myocardial perfusion appearing within normal limits at rest and an area of diminished myocardial perfusion/tracer uptake in the post-rest images in the mid anterior segments, which, on the post attenuation correction images is not visualized as there appears to be relative uniform tracer uptake/myocardial perfusion appearing within normal limits on both the rest and stress images. There is end systolic thickening and brightening. The gated Cardiolite study demonstrates myocardial thickening and inward wall motion. The reported LVEF is 66%. Impression: 1. Rest and stress SPECT her nuclear imaging did do demonstrate a discrepancy between the preattenuation in the post attenuation correction images raising a concern on the preattenuation correction images of an area concerning for stress-induced myocardial ischemia in the mid anterior segments, which, he has not reproduced on the post attenuation correction images. The post attenuation correction images appear to demonstrate relative uniform tracer uptake and myocardial perfusion appearing within normal limits. 2. The gated Cardiolite study reports an LVEF of 66%. Radiography Diagnostic Testing: Radiology Impression Chest X-Ray 06/02/21 13:21 IMPRESSION: No acute abnormality is seen. Electronically Signed: Gal Aparicio MD at 14:25 [facility] ,
[2021-06-02] MEDS: Budesonide Respules 0.5 MG/2 ML AMPUL.NEB. INHALATION (20:00)
[2021-06-02 20:19] LABS: Troponin-I HS 21 pg/mL (3.0-54.0)
[2021-06-03] VITALS (23 sets, daily range): BP systolic 93–150; BP diastolic 51–77; PULSE 44–74; RESP 10–19; TEMP 36.2–36.8; O2SAT 94–100
[2021-06-03 00:25] LABS: Troponin-I HS 22 pg/mL (3.0-54.0)
--- NOTE | 2021-06-03 05:55 | EKG12_ITS ---
Test Reason : AM EKG Blood Pressure : / mmHG Vent. Rate : 052 BPM Atrial Rate : 052 BPM P-R Int : 194 ms QRS Dur : 088 ms QT Int : 450 ms P-R-T Axes : 061 078 076 degrees QTc Int : 418 ms Sinus bradycardia Nonspecific ST and T wave abnormality Abnormal ECG Confirmed by LAUREN SUÁREZ, PANCHITO ([id number]), web editor BIRDIE LERMA ([id number]) on 06/04/2021 8:28:01 AM Referred By: LAUREN Confirmed By:PANCHITO AGUILAR MD
[2021-06-03] MEDS: Isosorbide Mononitrate 30 MG Tablet PO ×2 (06:51→10:14)
[2021-06-03] MEDS: Metoprolol(XL)Succ 25 MG Tablet 12.5 MG PO (06:51)
[2021-06-03] MEDS: Clopidogrel Bisulfate 75 MG Tablet PO (06:51)
[2021-06-03] MEDS: Aspirin E.C. 81 MG Tablet PO (06:51)
[2021-06-03] MEDS: Budesonide Respules 0.5 MG/2 ML AMPUL.NEB. INHALATION (07:16)
[2021-06-03] MEDS: Losartan Potassium 25 MG Tablet PO (07:41)
[2021-06-03] MEDS: Acetaminophen 325 MG Tablet 650 MG PO (07:41)
--- NOTE | 2021-06-03 07:49 | NURSING ---
Report called to Martha in [employer]
--- NOTE | 2021-06-03 09:20 | CASEMGMT ---
According to the [facility] website, the following are in-network tertiary facilities: [facility], [place], [facility], [place], [facility], [facility], [place], [facility], and . Silvestre HERBERT CM
--- NOTE | 2021-06-03 09:24 | CL.D_ITS ---
Patient Name: YADIEL FLOREZ Study Date: 06/03/2021 Performing: Talon Jimenez MD Ht: 71.65 inches 182 cm : 1955 Wt: 242.51 lbs 110 kg Age: 65 Gender: female BSA: 2.3 PROCEDURE(S) PERFORMED [id number])LHC/COR/LV CLINICAL PROFILE AND INDICATIONS Indications: Worsening Angina, Suspected CAD Heart Failure: None Stress/Imaging Date: 05/26/2021tress Test with SPECT MPI: Positive Intermediate Risk Angina Classification Anginal Classification w/in 2 Weeks: CCS IV CAD Presentations: Unstable angina. CONCLUSIONS Elevated Left Ventricular End Diastolic Pressure Normal LV size, wall motion,and systolic function LVEF: by LV gram 70 % [place] Multivessel CAD RECOMMENDATIONS Medical therapy Case discussed / reviewed with Dr. Inman of Interventional Cardiology DESCRIPTION OF PROCEDURE The patient arrived to the procedure lab. The risks and benefits of the procedure as well as a full d escription of our services here and current unavailability of surgical backup were fully explained to the patient and/or their significant other prior to the catheterization. The Timeout was completed, verifying the correct patient and procedure. The patient's procedural site was prepped and draped in the usual fashion. Local anesthetic was given subcutaneously to right radial region with Lidocaine 2% . Local anesthetic was given subcutaneously to right groin region with Lidocaine 2%. Using a modified Seldinger technique, arterial access was obtained via the right radial artery, a 6Fr sheath was inse rted., arterial access was obtained via the right femoral artery, a 4Fr sheath was inserted Right br achial selective angiography was then performed in single view. Right radial selective angiography wa s then performed in single view. Left Coronary Artery selective angiography was performed in multiple views using a 4 Fr. JL5 catheter. Right Coronary Artery selective angiography was then pe rformed in multiple views using a 4 Fr. 3DRC catheter. Right Coronary Artery selective angiography wa s then performed in multiple views using a 4 Fr. JR4 catheter. Left Ventriculography was performed in MULTANI projection using a 4 Fr. Pigtail catheter. LV to AO pullback pressures were then recorded.The ar terial sheath was pulled and a TR Band was applied for hemostasis - 10cc air. The arterial sheath was pulled and manual compression applied until hemostasis is achieved. femoral CORONARY ANGIOGRAPHY DOMINANCE: Right Dominant LEFT HEART ASSESSMENT Left Ventricular Ejection Fraction: by LV Gram 70 % Normal LV wall motion Elevated Left Ventricular End Diastolic Pressure LVEDP: 21 mmHg LEFT MAIN: Angiographically normal LEFT ANTERIOR DESCENDING ARTERY: PROX LAD: smooth: eccentric: 10 - 25 % Stenosis MID LAD: smooth: eccentric: 10 - 25 % Stenosis DISTAL LAD: / Apical: small caliber vessel: near the terminal segment: 75 % Stenosis CIRCUMFLEX ARTERY: OM 1: Proximal - Mild luminal irregularities OM 2: Proximal - Mild luminal irregularities RIGHT CORONARY ARTERY: PROX RCA: Mild luminal irregularities AORTIC ROOT: Angiographically normal COMPLICATIONS No Complications PROCEDURE MEDICATIONS Fentanyl 50 mcg IV Versed 1 mg IV Oxygen: 2 L/min via nasal cannula Heparin given IA 06/03/2021 08:22:35 IV Bolus: .9 NaCl 100 ml total 06/03/2021 08:59:11 SUMMARY OF HEMODYNAMIC DATA Time AIR REST ECG 08:04:42 Art 169/70 (98) 08:17:01 AO 118/66 (89) SA 08:29:22 AO 107/68 (87) 08:41:24 AO 134/69 (93) 08:43:53 LV 132/-5, 24 08:50:16 LV 134/-6, 21 08:50:22 LV 121/-1, 23 08:51:13 LV 123/0, 21 08:51:19 LVp 129/-1, 20 08:51:24 AOp 123/58 (82) 08:51:29 Signed By Talon Jimenez MD On 06/03/2021 09:22:49 Talon Jimenez MD
[2021-06-03] MEDS: hydroCHLOROthiazide 12.5mg 12.5 MG PO (10:12)
[2021-06-03] MEDS: Citalopram 40 MG TABLET PO (10:12)
[2021-06-03] MEDS: 0.9% Normal Saline 1,000 ML 75 ML IV (10:14)
--- NOTE | 2021-06-03 11:08 | PCM.DC ---
Discharge Instructions Diet Discharge Diet: No restrictions Activity Discharge Activity: Return to Normal Activity Weight Bearing Status: Weight bearing as tolerated Dressing / Incision Call your doctor if you observe: Fever of 101 or Higher, Numbness or Tingling, Shortness of breath, Dizziness, Chest pain, Increased palpitations (irregular heartbeat) and Calf discomfort Follow Up Care Please Follow Up With: Primary care provider When: Within the next two weeks. Test Results: Test results from this visit will be discussed in further detail at your follow-up appointment, if applicable. Discharge Plan Admission Admit Date/Time: 06/02/21 14:46 Primary Reason for Your Visit: Chest pain Attending Provider: James Garcia Primary Care Provider: Alaina Tariq Consulting Providers: Talon Jimenez Discharge Orders/Prescriptions Prescriptions: New atorvastatin 40 mg Tablet 40 mg PO QHS Qty: 30 RF: 0 isosorbide mononitrate 60 mg Tablet Extended Release 24 Hr 60 mg PO DAILY Qty: 30 RF: 0 Continued losartan 25 mg tablet 25 mg PO DAILY 30 Days Qty: 30 RF: 0 hydrochlorothiazide 12.5 mg capsule 12.5 mg PO DAILY 30 Days Qty: 30 RF: 0 citalopram [Celexa] 40 mg tablet 40 mg PO DAILY RF: 0 gabapentin 600 mg tablet 600 mg PO QHS PRN (Reason: other) RF: 0 albuterol sulfate 2.5 mg /3 mL (0.083 %) solution for nebulization 2.5 mg INHALATION Q4H PRN (Reason: Sob &/Or Wheezing) Qty: 180 RF: 3 albuterol sulfate [Ventolin HFA] 90 mcg/actuation HFA aerosol inhaler 2 puff INHALATION Q4H PRN (Reason: shortness of breath or wheezing) Qty: 1 RF: 3 budesonide-formoterol [Symbicort] 160-4.5 mcg/actuation HFA aerosol inhaler 2 puff inhalation BID Qty: 1 RF: 3 montelukast [Singulair] 10 mg tablet 10 mg PO DAILY RF: 0 metoprolol succinate 25 mg tablet extended release 24 hr 12.5 mg PO DAILY Qty: 90 RF: 3 benzonatate 100 mg capsule 100 mg PO TID PRN (Reason: Cough) RF: 0 clopidogrel [Plavix] 75 mg tablet 75 mg PO DAILY Qty: 30 RF: 0 aspirin [Adult Aspirin Regimen] 81 mg tablet,delayed release (DR/EC) 81 mg PO DAILY Qty: 30 RF: 0 gabapentin 100 MG capsule 100 mg PO DAILY PRN (Reason: Pain Score 1-10/10) RF: 0 pantoprazole 40 MG tablet,delayed release (DR/EC) 40 mg PO DAILY PRN (Reason: ALLERGIES) RF: 0 fluticasone propionate 16 GM spray,suspension 1 spray INTRANASAL BID PRN (Reason: Congestion) RF: 0 cholecalciferol (vitamin D3) 125 mcg (5,000 unit) Capsule 125 mcg PO DAILY RF: 0 Discontinued prednisone 20 mg tablet 20 mg PO .COMPLEX Qty: 9 RF: 0 famotidine [Pepcid AC] 20 mg tablet 20 mg PO .COMPLEX Qty: 2 RF: 0 diphenhydramine HCl [Benadryl] 25 mg capsule 25 mg PO .COMPLEX Qty: 4 RF: 0 isosorbide mononitrate 30 mg tablet extended release 24 hr 30 mg PO DAILY Qty: 30 RF: 0 Referrals / Follow Up: Alaina Tariq MD [Primary Care Provider] - Within 2 Weeks Talon Jimenez MD [STAFF PHYSICIAN] - Within 2 Weeks Rashid Menchaca MD [NON-STAFF] - See Referral Note (Establish care for non cardiac reasons of your chest pain. ) Disposition Disposition (needs filled in before D/C Order can be placed): Home, Self Care
[2021-06-03] MEDS: predniSONE 20 MG Tablet 60 MG PO (11:36)
[2021-06-03 13:21] LABS: Absolute Lymphocyte Count 1.71 X10^3/uL (0.83-4.51); Absolute Neutrophil Count 1.4 X10^3/uL (2.0-7.7); Basophil# 0.02 X10^3/uL; Basophil% 0.6 % (0-1); Eosinophil# 0.08 X10^3/uL; Eosinophils% 2.2 % (0-5); Hematocrit 32.6 % (37-47); Hemoglobin 11.3 g/dL (12.0-15.0); Lymphocyte # 1.71 X10^3/ul (0.83-4.51); Mean Corp Hgb Conc 34.7 g/dL (32-36); Mean Corpuscular Hgb 32.1 pg (27.0-32.0); Mean Corpuscular Volume 92.6 fL (81-99); Monocyte# 0.33 X10^3/uL; Monocyte% 9.3 % (0-10); NRBC Flagged by Analyzer 0 % (0-5); Neutrophil # 1.42 X10^3/uL (2.7-7.7); Neutrophil % 39.9 % (47-70); Platelet Count 137 K/mm3 (150-450); RBC Distribution Width CV 13.3 % (11.6-14.6); RBC Distribution Width SD 45.1 fl (35.1-43.9); Red Blood Count 3.52 M/mm3 (4.2-5.4); White Blood Count 3.6 K/mm3 (4.4-11.0)
[2021-06-03 13:35] LABS: ALB/GLOB Ratio 0.9 RATIO (0.9-2.4); AST(SGOT) 15 U/L (15-37); Alanine Aminotransfer ALT/SGPT 22 U/L (13-56); Albumin, Serum 2.9 g/dL (3.2-5.0); Alkaline Phosphatase 52 U/L (45-117); Anion Gap 4 (5-15); BUN 12 mg/dL (7-18); BUN/Creat Ratio 16.3 RATIO (10-20); Calcium,Total 8.6 mg/dL (8.5-10.1); Chloride 108 mmol/L (98-107); Cholesterol 196 mg/dL (200); Creatinine, Serum 0.74 mg/dL (0.55-1.02); EST Glomerular Filtration Rate 84 mL/min (>60); Est Glom Filt Rate - Afr Amer 102 mL/min (>60); Estimated Creatinine Clearance 85.84 ml/min; Globulin 3.2 g/dL (2.2-4.2); Glucose 133 mg/dL (74-106); High Density Lipoprotein 45 mg/dL; Potassium 3.5 mmol/L (3.5-5.1); Protein, Total 6.1 g/dL (6.4-8.2); Sodium Level 140 mmol/L (136-145); Triglycerides 139 mg/dL; Very Low Density Lipoprotein 28 mg/dL (5-40)
--- NOTE | 2021-06-03 14:41 | NURSING ---
Patient ambulated in [place] post bedrest. Returned to room, right groin site soft with palpitation, no bleeding or hematoma noted.
--- NOTE | 2021-06-03 14:56 | PCM.DC.SUM ---
Documented by User: Ryland SON 06/03/21 15:05 Providers Date of Admission: 06/02/21 Date of Discharge: 06/03/21 Primary Care Physician: Dr. Alaina Tariq MD Consultations 06/02/21 16:35 Consult: Cardiology Routine Consulting Provider: Talon Jimenez Reason for Consult: Chest pain, recurrent, sent to ED per Cardiology, planned cath 06/04/21 EMERGENT Consult: No MD Notified: Yes Date Notified: 06/02/21 Time Notified: 14:49 Method of Notification: per ED. Reason For Visit: CHEST PAIN Diagnosis Discharge Diagnosis (1) Unstable angina: Status: Acute Code(s): I20.0 - Unstable angina (2) Abnormal stress test: Status: Acute Code(s): R94.39 - Abnormal result of other cardiovascular function study (3) Bradycardia: Status: Acute Code(s): R00.1 - Bradycardia, unspecified (4) Essential hypertension: Status: Chronic Code(s): I10 - Essential (primary) hypertension (5) GERD (gastroesophageal reflux disease): Status: Chronic Code(s): K21.9 - Gastro-esophageal reflux disease without esophagitis Qualifiers: Esophagitis presence: esophagitis presence not specified Qualified Code(s): K21.9 - Gastro-esophageal reflux disease without esophagitis (6) COVID-19: Status: Acute Code(s): U07.1 - COVID-19 Medications at Discharge Home Medications hydrochlorothiazide 12.5 mg capsule 12.5 mg PO DAILY 30 Days #30 cap 05/02/18 losartan 25 mg tablet 25 mg PO DAILY 30 Days #30 tab 05/02/18 citalopram 40 mg tablet 40 mg PO DAILY 11/07/18 gabapentin 600 mg tablet 600 mg PO QHS PRN 11/07/18 gabapentin 100 mg PO DAILY PRN 01/06/19 albuterol sulfate 2.5 mg INHALATION Q4H PRN #180 ml 02/07/19 albuterol sulfate 90 mcg/actuation aerosol inhaler 2 puff INHALATION Q4H PRN #1 device 07/11/19 pantoprazole 40 mg PO DAILY PRN 09/12/19 fluticasone propionate 1 spray INTRANASAL BID PRN 05/04/20 montelukast 10 mg tablet 10 mg PO DAILY 07/29/20 budesonide-formoterol HFA 160 mcg-4.5 mcg/actuation aerosol inhaler 2 puff INHALATION BID #1 ea 03/31/21 metoprolol succinate 25 mg tablet,extended release 24 hr 12.5 mg PO DAILY #90 tab 05/15/21 benzonatate 100 mg capsule 100 mg PO TID PRN cap 05/22/21 aspirin 81 mg tablet,delayed release 81 mg PO DAILY #30 tab 06/02/21 cholecalciferol (vitamin D3) 125 mcg PO DAILY 06/02/21 clopidogrel 75 mg tablet 75 mg PO DAILY #30 tab 06/02/21 atorvastatin 40 mg PO QHS #30 tab 06/03/21 isosorbide mononitrate 60 mg PO DAILY #30 tab 06/03/21 Hospital Course Procedures Cardiac catheterization Summary of Care Provided Minutes Spent on Discharge: 20 Hospital Course: Patient is a 65-year-old female is admitted to [facility] on 06/02/2021 for evaluation and management of unstable angina. Patient was noted to have an abnormal stress test prior to admission, and was already scheduled to have a cardiac catheterization performed on 06/[address] Jimenez agreed to move up patient's cardiac cath and results are as follows: elevated left ventricular end-diastolic pressure, normal LV size, wall motion and systolic function, an LVEF of 70% and [place] multivessel CAD. Recommendations from cardiology were to continue with medical management and follow-up within the next 2 weeks. Patient's home regimen of aspirin, Plavix and metoprolol were continued. Isosorbide and statin were added to patient's home regimen based off of cardiology recommendations. All other home medications were continued, follow-up with cardiology and primary care provider within the next 2 weeks. Patient seen by Ryland Watkins PA-C, under the supervision of Dr. Garcia. Physical Exam Const alert, oriented x3 and no apparent distress HEENT normocephalic, head/scalp atraumatic and hearing grossly normal bilaterally Eyes PERRL and conjunctivae normal Neck no lymphadenopathy, supple and no JVD Resp normal respiratory effort, no retractions and no use of accessory muscles Cardio regular rate, regular rhythm and no JVD GI normal to inspection, nondistended, normoactive bowel sounds Extremity normal to inspection Skin no rashes or lesions noted Neuro CN's II-XII intact bilaterally Psych affect normal Weight / BMI Weight Weight: 242 lb 15.19 oz Body Mass Index (BMI) 32.8 ABG / Lab / Microbiology Data Result Diagrams: 06/03/21 13:10 06/03/21 13:10 Laboratory: Laboratory Results - last 24 hr 06/02/21 13:35: Magnesium 2.0 06/02/21 17:30: Troponin I High Sens 24, TSH 1.30 06/02/21 19:35: Troponin I High Sens 21 06/02/21 23:58: Troponin I High Sens 22 06/03/21 13:10: WBC 3.6 L, RBC 3.52 L, Hgb 11.3 L, Hct 32.6 L, MCV 92.6, MCH 32.1 H, MCHC 34.7, RDW Std Deviation 45.1 H, RDW Coeff of Domi 13.3, Plt Count 137 L, MPV 9.0, Immature Gran % (Auto) 0.000, Neut % (Auto) 39.9 L, Lymph % (Auto) 48.0 H, [place] % (Auto) 9.3, Eos % (Auto) 2.2, Baso % (Auto) 0.6, Absolute Neuts (auto) 1.4 L, Absolute Lymphs (auto) 1.71, Nucleated RBC % 0 06/03/21 13:10: Sodium 140, Potassium 3.5, Chloride 108 H, Carbon Dioxide 28.0, Anion Gap 4 L, BUN 12, Creatinine 0.74, Estim Creat Clear Calc 85.84, Est GFR (MDRD) Af Amer 102, Est GFR (MDRD) Non-Af 84, BUN/Creatinine Ratio 16.3, Glucose 133 H, Calcium 8.6, Total Bilirubin 0.40, AST 15, ALT 22, Alkaline Phosphatase 52, Total Protein 6.1 L, Albumin 2.9 L, Globulin 3.2, Albumin/Globulin Ratio 0.9, Triglycerides 139, Cholesterol 196, LDL Cholesterol 123, VLDL Cholesterol 28, HDL Cholesterol 45 D/C Instructions Discharge Diet: No restrictions Weight Bearing Status: Weight bearing as tolerated Call your doctor if you observe: Fever of 101 or Higher, Numbness or Tingling, Shortness of breath, Dizziness, Chest pain, Increased palpitations (irregular heartbeat) and Calf discomfort Please Follow Up With: Primary care provider When: Within the next two weeks. Meaningful Use Info Meaningful Use Diagnoses (Choose all that apply): None applicable Discharge Plan Admission Admit Date/Time: 06/02/21 14:46 Primary Reason for Your Visit: Chest pain Attending Provider: James Garcia Primary Care Provider: Alaina Tariq Consulting Providers: Talon Jimenez Discharge Orders/Prescriptions Prescriptions: New atorvastatin 40 mg Tablet 40 mg PO QHS Qty: 30 RF: 0 isosorbide mononitrate 60 mg Tablet Extended Release 24 Hr 60 mg PO DAILY Qty: 30 RF: 0 Continued losartan 25 mg tablet 25 mg PO DAILY 30 Days Qty: 30 RF: 0 hydrochlorothiazide 12.5 mg capsule 12.5 mg PO DAILY 30 Days Qty: 30 RF: 0 citalopram [Celexa] 40 mg tablet 40 mg PO DAILY RF: 0 gabapentin 600 mg tablet 600 mg PO QHS PRN (Reason: nerve pain) RF: 0 albuterol sulfate 2.5 mg /3 mL (0.083 %) solution for nebulization 2.5 mg INHALATION Q4H PRN (Reason: Sob &/Or Wheezing) Qty: 180 RF: 3 albuterol sulfate [Ventolin HFA] 90 mcg/actuation HFA aerosol inhaler 2 puff INHALATION Q4H PRN (Reason: shortness of breath or wheezing) Qty: 1 RF: 3 budesonide-formoterol [Symbicort] 160-4.5 mcg/actuation HFA aerosol inhaler 2 puff inhalation BID Qty: 1 RF: 3 montelukast [Singulair] 10 mg tablet 10 mg PO DAILY RF: 0 metoprolol succinate 25 mg tablet extended release 24 hr 12.5 mg PO DAILY Qty: 90 RF: 3 benzonatate 100 mg capsule 100 mg PO TID PRN (Reason: Cough) RF: 0 clopidogrel [Plavix] 75 mg tablet 75 mg PO DAILY Qty: 30 RF: 0 aspirin [Adult Aspirin Regimen] 81 mg tablet,delayed release (DR/EC) 81 mg PO DAILY Qty: 30 RF: 0 gabapentin 100 MG capsule 100 mg PO DAILY PRN (Reason: nerve pain) RF: 0 pantoprazole 40 MG tablet,delayed release (DR/EC) 40 mg PO DAILY PRN (Reason: reflux) RF: 0 fluticasone propionate 16 GM spray,suspension 1 spray INTRANASAL BID PRN (Reason: Congestion) RF: 0 cholecalciferol (vitamin D3) 125 mcg (5,000 unit) Capsule 125 mcg PO DAILY RF: 0 Discontinued prednisone 20 mg tablet 20 mg PO .COMPLEX Qty: 9 RF: 0 famotidine [Pepcid AC] 20 mg tablet 20 mg PO .COMPLEX Qty: 2 RF: 0 diphenhydramine HCl [Benadryl] 25 mg capsule 25 mg PO .COMPLEX Qty: 4 RF: 0 isosorbide mononitrate 30 mg tablet extended release 24 hr 30 mg PO DAILY Qty: 30 RF: 0 Referrals / Follow Up: Alaina Tariq MD [Primary Care Provider] - Within 2 Weeks Talon Jimenez MD [STAFF PHYSICIAN] - Within 2 Weeks Rashid Menchaca MD [NON-STAFF] - See Referral Note (Establish care for non cardiac reasons of your chest pain. ) Disposition Disposition (needs filled in before D/C Order can be placed): Home, Self Care Documented by User: Dr. James Garcia MD 06/03/21 15:20 Providers Date of Admission: 06/02/21 Reason For Visit: CHEST PAIN Medications at Discharge Home Medications hydrochlorothiazide 12.5 mg capsule 12.5 mg PO DAILY 30 Days #30 cap 05/02/18 losartan 25 mg tablet 25 mg PO DAILY 30 Days #30 tab 05/02/18 citalopram 40 mg tablet 40 mg PO DAILY 11/07/18 gabapentin 600 mg tablet 600 mg PO QHS PRN 11/07/18 gabapentin 100 mg PO DAILY PRN 01/06/19 albuterol sulfate 2.5 mg INHALATION Q4H PRN #180 ml 02/07/19 albuterol sulfate 90 mcg/actuation aerosol inhaler 2 puff INHALATION Q4H PRN #1 device 07/11/19 pantoprazole 40 mg PO DAILY PRN 09/12/19 fluticasone propionate 1 spray INTRANASAL BID PRN 05/04/20 montelukast 10 mg tablet 10 mg PO DAILY 07/29/20 budesonide-formoterol HFA 160 mcg-4.5 mcg/actuation aerosol inhaler 2 puff INHALATION BID #1 ea 03/31/21 metoprolol succinate 25 mg tablet,extended release 24 hr 12.5 mg PO DAILY #90 tab 05/15/21 benzonatate 100 mg capsule 100 mg PO TID PRN cap 05/22/21 aspirin 81 mg tablet,delayed release 81 mg PO DAILY #30 tab 06/02/21 cholecalciferol (vitamin D3) 125 mcg PO DAILY 06/02/21 clopidogrel 75 mg tablet 75 mg PO DAILY #30 tab 06/02/21 atorvastatin 40 mg PO QHS #30 tab 06/03/21 isosorbide mononitrate 60 mg PO DAILY #30 tab 06/03/21 Hospital Course Operations None Summary of Care Provided Minutes Spent on Discharge: 45 Hospital Course: This patient was seen in conjunction with Ryland Watkins PA-C. I have independently interviewed and examined the patient and reviewed pertinent historical, laboratory, and other data. Please refer to Ryland Watkins PA-C's note for details of this patient's presentation, findings, and recommendations. I have reviewed Ryland Watkins PA-C's note and concur with documented findings. In brief, patient is a 65-year-old female with recent positive stress test as outpatient who presented with intermittent chest pain. Admitted to monitored bed consult placed to cardiology. Patient underwent left heart catheterization which demonstrated apical LAD. Cardiology recommended optimization of medical therapy with no PCI. Physical Examination: GENERAL: Cooperative HEENT: Atraumatic; EYES; Anicteric, Normal Conjunctiva NECK; supple, normal thyroid, RESPIRATORY: Diminished to auscultation CARDIOVASCULAR: Regular S1 S2, GI: soft, normoactive bowel sounds, : No Renal angle tenderness; EXTREMITIES: No edema, no clubbing, MUSCULOSKELETAL: no muscle wasting NEURO: Awake; no lateralizing signs. SKIN: No Rash PSYCH; Flat affect Assessment: 1. Chest pain 2. Mild intermittent asthma 3. Fibrocystic breast disease 4. GERD 5. Fibromyalgia 6. History of COVID 19 pneumonia 7. Essential hypertension 8. DVT prophylaxis Hospital course; as documented above Total time spent by myself and the advanced practice practitioner evaluating patient, reviewing labs, subsequent management decisions, discussion with patient as well as other providers 45 minutes ( 25 of which was spent by myself) ABG / Lab / Microbiology Data Result Diagrams: 06/03/21 13:10 06/03/21 13:10 Discharge Plan Admission Admit Date/Time: 06/02/21 14:46 Primary Reason for Your Visit: Chest pain Attending Provider: James Garica Primary Care Provider: Alaina Tariq Consulting Providers: Talon Jimenez Discharge Orders/Prescriptions Prescriptions: New atorvastatin 40 mg Tablet 40 mg PO QHS Qty: 30 RF: 0 isosorbide mononitrate 60 mg Tablet Extended Release 24 Hr 60 mg PO DAILY Qty: 30 RF: 0 Continued losartan 25 mg tablet 25 mg PO DAILY 30 Days Qty: 30 RF: 0 hydrochlorothiazide 12.5 mg capsule 12.5 mg PO DAILY 30 Days Qty: 30 RF: 0 citalopram [Celexa] 40 mg tablet 40 mg PO DAILY RF: 0 gabapentin 600 mg tablet 600 mg PO QHS PRN (Reason: nerve pain) RF: 0 albuterol sulfate 2.5 mg /3 mL (0.083 %) solution for nebulization 2.5 mg INHALATION Q4H PRN (Reason: Sob &/Or Wheezing) Qty: 180 RF: 3 albuterol sulfate [Ventolin HFA] 90 mcg/actuation HFA aerosol inhaler 2 puff INHALATION Q4H PRN (Reason: shortness of breath or wheezing) Qty: 1 RF: 3 budesonide-formoterol [Symbicort] 160-4.5 mcg/actuation HFA aerosol inhaler 2 puff inhalation BID Qty: 1 RF: 3 montelukast [Singulair] 10 mg tablet 10 mg PO DAILY RF: 0 metoprolol succinate 25 mg tablet extended release 24 hr 12.5 mg PO DAILY Qty: 90 RF: 3 benzonatate 100 mg capsule 100 mg PO TID PRN (Reason: Cough) RF: 0 clopidogrel [Plavix] 75 mg tablet 75 mg PO DAILY Qty: 30 RF: 0 aspirin [Adult Aspirin Regimen] 81 mg tablet,delayed release (DR/EC) 81 mg PO DAILY Qty: 30 RF: 0 gabapentin 100 MG capsule 100 mg PO DAILY PRN (Reason: nerve pain) RF: 0 pantoprazole 40 MG tablet,delayed release (DR/EC) 40 mg PO DAILY PRN (Reason: reflux) RF: 0 fluticasone propionate 16 GM spray,suspension 1 spray INTRANASAL BID PRN (Reason: Congestion) RF: 0 cholecalciferol (vitamin D3) 125 mcg (5,000 unit) Capsule 125 mcg PO DAILY RF: 0 Discontinued prednisone 20 mg tablet 20 mg PO .COMPLEX Qty: 9 RF: 0 famotidine [Pepcid AC] 20 mg tablet 20 mg PO .COMPLEX Qty: 2 RF: 0 diphenhydramine HCl [Benadryl] 25 mg capsule 25 mg PO .COMPLEX Qty: 4 RF: 0 isosorbide mononitrate 30 mg tablet extended release 24 hr 30 mg PO DAILY Qty: 30 RF: 0 Referrals / Follow Up: Alaina Tariq MD [Primary Care Provider] - Within 2 Weeks Talon Jimenez MD [STAFF PHYSICIAN] - Within 2 Weeks Rashid Menchaca MD [NON-STAFF] - See Referral Note (Establish care for non cardiac reasons of your chest pain. ) Disposition Disposition (needs filled in before D/C Order can be placed): Home, Self Care Charges/Coding Visit Charges Inpatient E&M: 79439 Disch Hosp Hospital Course Consultations Consultations: Consultations 06/02/21 16:35 Consult: Cardiology Routine Consulting Provider: Talon Jimenez Reason for Consult: Chest pain, recurrent, sent to ED per Cardiology, planned cath 06/04/21 EMERGENT Consult: No MD Notified: Yes Date Notified: 06/02/21 Time Notified: 14:49 Method of Notification: per ED. Operations None
--- NOTE | 2021-06-03 16:33 | PCM.PN.CARD ---
Subjective Subjective The patient was evaluated earlier this day. She had undergone evaluation with diagnostic cardiac catheterization. She appeared to have no obvious adverse events. Objective Data Vital Signs: Vital Signs Temp Pulse Resp BP Pulse Ox 98.3 F 74 16 112/58 L 96 06/03/21 14:26 06/03/21 15:00 06/03/21 14:26 06/03/21 14:26 06/03/21 14:30 Oxygen Delivery Method Room Air Weight: 242 lb 15.19 oz Body Mass Index (BMI) 32.8 Intake & Output: Intake and Output for Last 24 Hours 06/01/21 06/02/21 06/03/21 23:59 23:59 23:59 Intake Total 490 / 490 1542 / 1542 Balance 490 / 490 1542 / 1542 Lab / Micro Data Result Diagrams: 06/03/21 13:10 06/03/21 13:10 Labs: Laboratory Results - last 24 hr 06/02/21 17:30: Troponin I High Sens 24, TSH 1.30 06/02/21 19:35: Troponin I High Sens 21 06/02/21 23:58: Troponin I High Sens 06/03/21 13:10: WBC 3.6 L, RBC 3.52 L, Hgb 11.3 L, Hct 32.6 L, MCV 92.6, MCH 32.1 H, MCHC 34.7, RDW Std Deviation 45.1 H, RDW Coeff of Domi 13.3, Plt Count 137 L, MPV 9.0, Immature Gran % (Auto) 0.000, Neut % (Auto) 39.9 L, Lymph % (Auto) 48.0 H, [place] % (Auto) 9.3, Eos % (Auto) 2.2, Baso % (Auto) 0.6, Absolute Neuts (auto) 1.4 L, Absolute Lymphs (auto) 1.71, Nucleated RBC % 0 06/03/21 13:10: Sodium 140, Potassium 3.5, Chloride 108 H, Carbon Dioxide 28.0, Anion Gap 4 L, BUN 12, Creatinine 0.74, Estim Creat Clear Calc 85.84, Est GFR (MDRD) Af Amer 102, Est GFR (MDRD) Non-Af 84, BUN/Creatinine Ratio 16.3, Glucose 133 H, Calcium 8.6, Total Bilirubin 0.40, AST 15, ALT 22, Alkaline Phosphatase 52, Total Protein 6.1 L, Albumin 2.9 L, Globulin 3.2, Albumin/Globulin Ratio 0.9, Triglycerides 139, Cholesterol 196, LDL Cholesterol 123, VLDL Cholesterol 28, HDL Cholesterol 45 Cardiology Labs/Tests 06/03/21 13:10: WBC 3.6 L, RBC 3.52 L, Hgb 11.3 L, Hct 32.6 L, MCV 92.6, MCH 32.1 H, MCHC 34.7, Plt Count 137 L, MPV 9.0, Immature Gran % (Auto) 0.000, Neut % (Auto) 39.9 L, Lymph % (Auto) 48.0 H, [place] % (Auto) 9.3, Eos % (Auto) 2.2, Baso % (Auto) 0.6, Absolute Neuts (auto) 1.4 L, Nucleated RBC % 0 06/03/21 13:10: Sodium 140, Potassium 3.5, Chloride 108 H, Carbon Dioxide 28.0, Anion Gap 4 L, BUN 12, Creatinine 0.74, Est GFR (MDRD) Af Amer 102, Est GFR (MDRD) Non-Af 84, BUN/Creatinine Ratio 16.3, Glucose 133 H, Calcium 8.6, Total Bilirubin 0.40, Triglycerides 139, Cholesterol 196, LDL Cholesterol 123, VLDL Cholesterol 28, HDL Cholesterol 45 Rhythm: Sinus rhythm EKG: Sinus bradycardia; nonspecific ST/T wave abnormality Cardiac Cath: CORONARY ANGIOGRAPHY DOMINANCE: Right Dominant LEFT HEART ASSESSMENT Left Ventricular Ejection Fraction: by LV Gram 70 % Normal LV wall motion Elevated Left Ventricular End Diastolic Pressure LVEDP: 21 mmHg LEFT MAIN: Angiographically normal LEFT ANTERIOR DESCENDING ARTERY: PROX LAD: smooth: eccentric: 10 - 25 % Stenosis MID LAD: smooth: eccentric: 10 - 25 % Stenosis DISTAL LAD: / Apical: small caliber vessel: near the terminal segment: 75 % Stenosis CIRCUMFLEX ARTERY: OM 1: Proximal - Mild luminal irregularities OM 2: Proximal - Mild luminal irregularities RIGHT CORONARY ARTERY: PROX RCA: Mild luminal irregularities AORTIC ROOT: Angiographically normal Physical Exam Narrative This is a 65-year-old female who appears resting reasonably comfortably at the moment in no acute distress. Const alert, oriented x3 and healthy appearing Orientation / Consciousness: awake HEENT normocephalic, head/scalp atraumatic and hearing grossly normal bilaterally Eyes PERRL, EOMs intact bilaterally and conjunctivae normal Neck full ROM, supple and no JVD Resp clear to auscultation bilaterally Cardio regular rate, regular rhythm, S1 normal heart sound and S2 normal heart sound Heart Sounds: murmur systolic II/ soft mid left sternal border and LVOT Peripheral Pulses: radial pulses present right (No bruits: No hematoma) 2+ and femoral pulses present right (No bruits: No hematoma) 2+ GI normal to inspection, nondistended, normoactive bowel sounds Extremity no pedal edema Skin no rashes or lesions noted Neuro oriented x3, moves all extremities and no focal motor deficits Psych mental status grossly normal Assessment & Plan Assessment/Plan (1) Unstable angina: PLAN: The patient has symptoms which are concerning for unstable angina pectoris. She has an abnormal pharmacologic stress nuclear imaging study as noted above. At the present time her cardiac enzymes are negative. Her ECG is demonstrated no new acute ECG changes. She has undergone further evaluation with diagnostic cardiac catheterization. She was found to have an element of underlying CAD. Status post review with interventional cardiology the recommendation was to continue medical therapy. (2) Bradycardia: PLAN: The patient's cardiac rate and rhythm will be monitored. Her medications can be adjusted accordingly. (3) Essential hypertension: PLAN: The patient's blood pressure also be followed. Her medications can be adjusted taking into consideration her other comorbidities. (4) GERD (gastroesophageal reflux disease): QUALIFIERS: Esophagitis presence: esophagitis presence not specified Qualified Code(s): K21.9 - Gastro-esophageal reflux disease without esophagitis PLAN: The patient has a history of GERD and gallbladder related disease. However, she states the symptoms are different from those. Based upon her cardiac catheterization findings there still may be concerned that she has an element of non CAD related chest discomfort. Thus it would be reasonable for her to be considered for further non-CAD evaluation potentially from a gastrointestinal standpoint. (5) COVID-19: PLAN: The patient did experience COVID-19 in March, and April,. She states she has been recuperating from that and feels that she has been improving overall with the exception of concerns of her chest discomfort. Addt'l Comments The patient's case was discussed and reviewed with Dr. Garcia. This note was generated using a voice recognition system and there may be incorrect words, spelling or punctuation that were not noted when reviewing the office note prior to saving.
== END 2021-06-03 11:14 | disposition home or self-care (01) ==
LOC: ED 15:06 → PCU 15:43
PROVIDERS: Physician Assistant; Admitting Provider Family Medicine; Emergency Provider Emergency Medicine; PCP Internal Medicine; Visit Provider Internal Medicine
DX: I25.110 Atherosclerotic heart disease of native coronary artery with unstable angina pectoris (principal); I10 Essential (primary) hypertension; J45.20 Mild intermittent asthma, uncomplicated; R42 Dizziness and giddiness; R94.39 Abnormal result of other cardiovascular function study; E66.9 Obesity, unspecified; I44.0 Atrioventricular block, first degree; Z79.02 Long term (current) use of antithrombotics/antiplatelets; M79.7 Fibromyalgia; F41.9 Anxiety disorder, unspecified; N60.19 Diffuse cystic mastopathy of unspecified breast; E78.5 Hyperlipidemia, unspecified; F32.A Depression, unspecified; K21.9 Gastro-esophageal reflux disease without esophagitis; M19.90 Unspecified osteoarthritis, unspecified site; Z86.16 Personal history of COVID-19; Z68.33 Body mass index [BMI] 33.0-33.9, adult; Z87.891 Personal history of nicotine dependence; Z79.899 Other long term (current) drug therapy; Z79.82 Long term (current) use of aspirin; G62.9 Polyneuropathy, unspecified
CPT/HCPCS: 36415; 71045; 80048; 80053; 80061; 83735; 84443; 84484; 85025; 93005; 93458; 94640; 96361; 96374; 96375; 99152; 99153; 99218; 99285; J7030; Q9967; A4216; C1769; C1894; G0378; J2405

== ENCOUNTER 2021-06-02 14:15 | Outpatient (CLI) | payer MEDICARE, SELFPAY ==
--- NOTE | 2021-06-02 11:49 | RAD_ITS ---
STUDY: X-RAY CHEST REASON FOR EXAM: Female, 65 years old. 4 cardiac catheterization. History of COVID. TECHNIQUE: Frontal and lateral views of the chest. COMPARISON: 06/02/2021. FINDINGS: The lungs are clear and expanded. There is no demonstrated pleural abnormality. Stable borderline cardiomegaly with a loop recorder device unchanged. Normal mediastinum and mary. Normal visualized pulmonary arteries. Normal visualized aortic arch and descending thoracic aorta. Normal visualized thoracic spine. Normal visualized ribs, clavicles, and shoulders. There is no demonstrated abnormality of the visualized soft tissue structures of the upper abdomen. RAD/Chest PA and Lateral IMPRESSION: Stable chest with no acute or active cardiopulmonary disease. Electronically Signed: Jeffrey Martinez MD at 9:54 EST ,
[2021-06-02 12:17] LABS: Hematocrit 36.6 % (37-47); Hemoglobin 12.5 g/dL (12.0-15.0); Mean Corp Hgb Conc 34.2 g/dL (32-36); Mean Corpuscular Hgb 31.5 pg (27.0-32.0); Mean Corpuscular Volume 92.2 fL (81-99); Mean Platelet Vol. 9.2 fl (6.2-12.0); Platelet Count 163 K/mm3 (150-450); RBC Distribution Width CV 13.2 % (11.6-14.6); RBC Distribution Width SD 44.4 fl (35.1-43.9); Red Blood Count 3.97 M/mm3 (4.2-5.4); White Blood Count 5.1 K/mm3 (4.4-11.0)
[2021-06-02 13:08] LABS: Anion Gap 7 (5-15); BUN 18 mg/dL (7-18); BUN/Creat Ratio 22.6 RATIO (10-20); Chloride 104 mmol/L (98-107); EST Glomerular Filtration Rate 77 mL/min (>60); Est Glom Filt Rate - Afr Amer 93 mL/min (>60); Glucose 98 mg/dL (74-106); Potassium 3.6 mmol/L (3.5-5.1); Sodium Level 139 mmol/L (136-145)
[2021-06-02 13:16] LABS: International Normalized Ratio 1.1; Prothrombin Time (Protime)PT. 13.8 SECONDS (11.7-14.9)
[2021-06-02 13:17] LABS: Partial Thromboplast Time 41.5 Seconds (24.1-36.2)
== END 2021-06-02 23:59 | disposition home or self-care (01) ==
LOC: PAT 06-24 14:15
PROVIDERS: Physician Assistant Medical; PCP Internal Medicine; Referring Provider Internal Medicine Cardiovascular Disease; Visit Provider Internal Medicine Cardiovascular Disease
DX: R07.9 Chest pain, unspecified (principal); R06.00 Dyspnea, unspecified; Z86.16 Personal history of COVID-19; R94.39 Abnormal result of other cardiovascular function study
CPT/HCPCS: 36415; 71046; 80048; 85027; 85610; 85730

== ENCOUNTER 2021-07-15 11:53 | Outpatient (CLI) | payer MEDICARE, SELFPAY ==
[2021-07-21 16:36] LABS: H. PYLORI STOOL AG Negative (Negative)
== END 2021-07-15 23:59 | disposition home or self-care (01) ==
LOC: MTLAB 11:55
PROVIDERS: PCP Internal Medicine; Referring Provider Internal Medicine Gastroenterology; Visit Provider Internal Medicine Gastroenterology
DX: R10.9 Unspecified abdominal pain (principal)

== ENCOUNTER → 2021-08-15 | Outpatient (CLI) | payer MEDICARE, SELFPAY ==
[2021-08-15 09:38] LABS: AST(SGOT) 20 U/L (15-37); Alanine Aminotransfer ALT/SGPT 26 U/L (13-56); Albumin, Serum 3.6 g/dL (3.2-5.0); Alkaline Phosphatase 69 U/L (45-117); Bilirubin, Direct 0.14 mg/dL (0.00-0.30); Cholesterol 128 mg/dL (200); Globulin 3.3 g/dL (2.2-4.2); High Density Lipoprotein 48 mg/dL; Protein, Total 6.9 g/dL (6.4-8.2); Triglycerides 144 mg/dL; Very Low Density Lipoprotein 29 mg/dL (5-40)
== END | disposition home or self-care (01) ==
LOC: LAB 08:42
PROVIDERS: PCP Internal Medicine; Visit Provider Physician Assistant Medical
DX: I25.10 Atherosclerotic heart disease of native coronary artery without angina pectoris (principal); E66.9 Obesity, unspecified
CPT/HCPCS: 36415; 80061; 80076

== ENCOUNTER 2022-05-10 11:39 | Emergency (ER) | payer MEDICARE, SELFPAY ==
[2022-05-10 11:40] VITALS: BP 149/69; PULSE 68; RESP 14; TEMP 36.6; O2SAT 99; BMI 35.1
[2022-05-10 12:00] LABS: Bacteria 0 SEEN /hpf (None Seen); Mucous, Urine 0 SEEN /hpf (<or=2+); Red Blood Cells-Urine 0 SEEN /hpf (0-5)
[2022-05-10 12:04] LABS: Color, Urine Yellow (Yellow); Glucose, Dipstick Normal (Normal); Ketone-Dipstick Negative (Negative); Leukocyte Esterase-Dipstick Negative /ul (Negative); Nitrite-Dipstick Negative (Negative); Occult Blood-Urine 10 /ul (Negative); Protein-Dipstick 30 mg/dl (Negative); Urine Bilirubin Dipstick Negative (Negative); Urine Clarity Clear (Clear); Urine Urobilinogen Normal (Normal)
[2022-05-10 12:05] LABS: Absolute Lymphocyte Count 2.48 X10^3/uL (0.83-4.51); Absolute Neutrophil Count 1.7 X10^3/uL (2.0-7.7); Basophil# 0.02 X10^3/uL; Basophil% 0.4 % (0-1); Eosinophil# 0.08 X10^3/uL; Eosinophils% 1.7 % (0-5); Hematocrit 41.4 % (37-47); Hemoglobin 13.7 g/dL (12.0-15.0); Lymphocyte # 2.48 X10^3/ul (0.83-4.51); Lymphocyte % 53.8 % (19-41); Mean Corp Hgb Conc 33.1 g/dL (32-36); Mean Corpuscular Hgb 31.1 pg (27.0-32.0); Mean Corpuscular Volume 93.9 fL (81-99); Mean Platelet Vol. 8.7 fl (6.2-12.0); Monocyte# 0.36 X10^3/uL; Monocyte% 7.8 % (0-10); NRBC Flagged by Analyzer 0 % (0-5); Neutrophil # 1.66 X10^3/uL (2.7-7.7); Neutrophil % 36.1 % (47-70); Platelet Count 206 K/mm3 (150-450); RBC Distribution Width CV 12.1 % (11.6-14.6); RBC Distribution Width SD 42.2 fl (35.1-43.9); Red Blood Count 4.41 M/mm3 (4.2-5.4); White Blood Count 4.6 K/mm3 (4.4-11.0)
[2022-05-10] MEDS: 0.9% Normal Saline 1,000 ML 125 ML IV (12:07)
[2022-05-10] MEDS: Morphine 4 MG/ML Syringe IV (12:07)
[2022-05-10] MEDS: Ondansetron 4 MG/2 ML Vial IV (12:07)
--- NOTE | 2022-05-10 12:09 | ED.VIS.GI ---
HPI HPI - GI History of Present Illness Chief Complaint: Abd Pain Informant: patient Narrative Narrative: Progressive lower abdominal pain for the last 3 days states radiates to her back. No fevers. No nausea or vomiting. No diarrhea or bloody stools last bowel movement was yesterday. Appendectomy in the past. She had a colonoscopy a year ago as noted there was mild inflammation followed by Dr. Carver. She has not been told of any diverticulitis. Denies urinary symptoms. Pain is intensifies. She states she drinks a glass of wine every now and then however not daily. No history of pancreatitis. Prior similar symptoms: No PFSH PFSH Medical History Abnormal stress test Acute respiratory failure with hypoxia Allergies Anxiety Arthritis Asthma Atherosclerotic heart disease of [place] coronary artery without angina pectoris Back problem Bradycardia Cataract COVID-19 COVID-19 Depression Essential hypertension External hemorrhoid, thrombosed Fibrocystic breast disease Fibrocystic breast disease Fibromyalgia GERD (gastroesophageal reflux disease) Hearing problem Heart murmur History of left heart catheterization (LHC) (~06/03/21) Hyperlipidemia Hypertension Hypoxemia Migraines Pneumonia due to COVID-19 virus Sciatica Unstable angina Home Medications hydrochlorothiazide 12.5 mg capsule 12.5 mg PO DAILY diuretic 30 days #30 caps 05/02/18 [History Last Taken 06/02/21] citalopram 40 mg tablet (Celexa) 40 mg PO DAILY mental health 11/07/18 [History Last Taken 06/02/21] gabapentin 600 mg tablet 600 mg PO QHS PRN nerve pain 11/07/18 [History Last Taken Unknown] gabapentin 100 mg capsule 100 mg PO DAILY PRN nerve pain 01/06/19 [History Last Taken Unknown] albuterol sulfate 2.5 mg/3 mL (0.083 %) solution for nebulization 2.5 mg (3 mL) inhalation Q4H PRN Sob &/Or Wheezing #180 mL 02/07/19 [Rx Last Taken Unknown] pantoprazole 40 mg tablet,delayed release 40 mg PO DAILY PRN reflux 09/12/19 [History Last Taken 2 Days Ago ~05/31/21] fluticasone propionate 50 mcg/actuation nasal spray,suspension 1 spray intranasal BID PRN Congestion 05/04/20 [History Last Taken Unknown] metoprolol succinate 25 mg tablet,extended release 24 hr 12.5 mg PO DAILY #90 tabs 05/15/21 [Rx Last Taken 06/02/21] benzonatate 100 mg capsule 100 mg PO TID PRN Cough 05/22/21 [History Last Taken 2 Days Ago ~05/31/21] aspirin 81 mg tablet,delayed release (Adult Aspirin Regimen) 81 mg PO DAILY #30 tabs 06/02/21 [Rx Last Taken 2 Days Ago ~05/31/21] cholecalciferol (vitamin D3) 125 mcg (5,000 unit) capsule 125 mcg PO DAILY vitamin 06/02/21 [History Last Taken 06/02/21] atorvastatin 40 mg tablet 40 mg PO QHS #90 tabs 06/29/21 [Rx Last Taken Unknown] isosorbide mononitrate 60 mg tablet,extended release 24 hr 60 mg PO DAILY #90 tabs 06/29/21 [Rx Last Taken Unknown] montelukast 10 mg tablet (Singulair) 10 mg PO DAILY allergies #90 tabs 06/30/21 [Rx Last Taken Unknown] albuterol sulfate 90 mcg/actuation aerosol inhaler (Ventolin HFA) 2 puff inhalation Q4H PRN shortness of breath or wheezing #1 device 01/01/22 [Rx Last Taken Unknown] budesonide-formoterol HFA 160 mcg-4.5 mcg/actuation aerosol inhaler (Symbicort) 2 puff inhalation BID #1 ea 01/01/22 [Rx Last Taken Unknown] amlodipine 2.5 mg tablet (Norvasc) 2.5 mg PO DAILY #30 tabs 01/06/22 [Rx Last Taken Unknown] losartan 25 mg tablet 25 mg PO DAILY blood pressure 30 days #30 tabs 01/06/22 [History Last Taken Unknown] dicyclomine 20 mg tablet 20 mg PO TID PRN abdominal cramping #20 tabs 05/10/22 [Rx Last Taken Unknown] Allergy/AdvReac Type Severity Reaction Status Date / Time apple Allergy Hives Verified 05/10/22 11:40 banana Allergy Hives Verified 05/10/22 11:40 carrot Allergy Hives Verified 05/10/22 11:40 pineapple Allergy Itching Verified 05/10/22 11:40 shellfish derived [lobster] Allergy Anaphylaxis Verified 05/10/22 11:40 shrimp Allergy Anaphylaxis Verified 05/10/22 11:40 amoxicillin AdvReac YEAST Verified 05/10/22 11:40 INFECTION Family History Sister Breast cancer Mother Heart disease Enlarged heart Hx of CABG CABG x 4. Rheumatoid arthritis Grandmother Enlarged heart Father Diabetes Other Anxiety and depression Arthritis History of blood clots Hypertension Surgical History H/O tubal ligation History of removal of cyst Hx of appendectomy Social History household members: spouse Smoking Status: Former smoker quit date: 04/11/93 alcohol intake: current alcohol intake frequency: holidays/special occasions only Alcohol type: wine details: social substance use type: does not use caffeine: No additional social history: Does take aspirin daily Does not take Ibuprofen ROS ROS ED Constitutional Constitutional ED: Denies chills, fever(s) or sweats Eyes Eyes: Denies change in vision ENT ENT ED: Denies dysphagia or sore throat Cardiovascular Cardiovascular: Denies chest pain, leg edema, palpitations or racing heartbeat Respiratory/Chest Respiratory/Chest: Denies cough, dyspnea or dyspnea on exertion Gastrointestinal Gastrointestinal: Reports abdominal pain; Denies diarrhea, nausea or vomiting Genitourinary Genitourinary ED: Denies dysuria, hematuria or urinary frequency Musculoskeletal Musculoskeletal: Denies back pain, extremity pain or neck pain Integumentary Denies rash or wounds Neurologic Neurologic: Denies headache(s), paresthesias or weakness EXAM Physical Exam Const Vital Signs: 05/10/22 11:40 05/10/22 14:06 Temperature 98 F Temperature Source Temporal Pulse Rate 68 71 Respiratory Rate 14 16 Blood Pressure 149/69 H 132/87 H Blood Pressure Mean 95 Pulse Ox 99 98 Oxygen Delivery Method Room Air MDM MDM MDM Narrative Medical decision making narrative: Patient presenting with lower abdominal pain that wraps around her back. Differential diverticulitis versus colitis versus kidney stones versus UTI. Pancreatitis also in the differential. She has a nonsurgical abdomen on exam therefore less likely any volvulus concerns. She is afebrile. Work-up initiated. She was treated morphine Zofran IV fluids. Abdominal labs reviewed and obtain all normal. White count 4.6. Urine noted hematuria however no infection. CT scan abdomen pelvis with IV contrast negative for any acute findings. Reevaluation abdomen was soft. She reports cramping sensations. She is having daily bowel movements therefore less likely constipation. Clinically is feeling better prescription for Bentyl sent to her pharmacy. She will follow-up with her PCP and GI physician. With her hematuria she is given follow-up with urology. Return precautions. All questions were answered. Lab Data Attestation: I reviewed the patient's lab results. Labs: Laboratory Results - last 24 hr 05/10/22 05/10/22 05/10/22 11:50 11:50 11:50 WBC 4.6 RBC 4.41 Hgb 13.7 Hct 41.4 MCV 93.9 MCH 31.1 MCHC 33.1 RDW Std Deviation 42.2 RDW Coeff of Domi 12.1 Plt Count 206 MPV 8.7 Immature Gran % (Auto) 0.200 Neut % (Auto) 36.1 L Lymph % (Auto) 53.8 H [place] % (Auto) 7.8 Eos % (Auto) 1.7 Baso % (Auto) 0.4 Absolute Neuts (auto) 1.7 L Absolute Lymphs (auto) 2.48 Nucleated RBC % 0 Sodium 143 Potassium 3.6 Chloride 107 Carbon Dioxide 29.0 Anion Gap 7 BUN 12 Creatinine 0.82 Estim Creat Clear Calc 76.45 Est GFR (MDRD) Af Amer 89 Est GFR (MDRD) Non-Af 74 BUN/Creatinine Ratio 14.6 Glucose 171 H Calcium 8.8 Total Bilirubin 0.70 Direct Bilirubin 0.22 AST 20 ALT 27 Alkaline Phosphatase 82 Total Protein 7.2 Albumin 3.5 Globulin 3.7 Lipase 92 Urine Color Yellow Urine Clarity Clear Urine pH 6.0 Ur Specific [place] 1.020 Urine Protein 30 H Urine Glucose (UA) Normal Urine Ketones Negative Urine Occult Blood 10 H Urine Nitrite Negative Urine Bilirubin Negative Urine Urobilinogen Normal Ur Leukocyte Esterase Negative Urine RBC 0 SEEN Urine WBC 0-5 SEEN Ur Squamous Epith Cells 0-5 SEEN Urine Bacteria 0 SEEN Urine Mucus 0 SEEN Radiography Diagnostic Testing: Clinical Impression(s) from Imaging Studies Abdomen/Pelvis CT 05/10/22 12:37 IMPRESSION: Fatty infiltration of the liver. Electronically Signed: Gal Aparicio MD at 13:21 EST , Discharge Plan Triage Chief Complaint: Abd Pain ED Provider: Corona Agee Dx/Rx/DC Orders Clinical Impression: Abdominal pain, Essential hypertension, Hematuria Instructions: Abdominal Pain, ED Hematuria Prescriptions: New dicyclomine 20 mg tablet 20 mg PO TID PRN (Reason: abdominal cramping) Qty: 20 0RF No Action hydrochlorothiazide 12.5 mg capsule 12.5 mg PO DAILY 30 Days Qty: 30 losartan 25 mg tablet 25 mg PO DAILY 30 Days Qty: 30 citalopram [Celexa] 40 mg tablet 40 mg PO DAILY gabapentin 600 mg tablet 600 mg PO QHS PRN (Reason: nerve pain) albuterol sulfate 2.5 mg /3 mL (0.083 %) solution for nebulization 2.5 mg INHALATION Q4H PRN (Reason: Sob &/Or Wheezing) Qty: 180 3RF montelukast [Singulair] 10 mg tablet 10 mg PO DAILY Qty: 90 3RF metoprolol succinate 25 mg tablet extended release 24 hr 12.5 mg PO DAILY Qty: 90 3RF benzonatate 100 mg capsule 100 mg PO TID PRN (Reason: Cough) Label Comments: Take 1 capsule by mouth three times daily as needed for cough. isosorbide mononitrate 60 mg tablet extended release 24 hr 60 mg PO DAILY Qty: 90 3RF atorvastatin 40 mg tablet 40 mg PO QHS Qty: 90 3RF aspirin [Adult Aspirin Regimen] 81 mg tablet,delayed release (DR/EC) 81 mg PO DAILY Qty: 30 0RF amlodipine [Norvasc] 2.5 mg tablet 2.5 mg PO DAILY Qty: 30 11RF albuterol sulfate [Ventolin HFA] 90 mcg/actuation HFA aerosol inhaler 2 puff INHALATION Q4H PRN (Reason: shortness of breath or wheezing) Qty: 1 3RF budesonide-formoterol [Symbicort] 160-4.5 mcg/actuation HFA aerosol inhaler 2 puff inhalation BID Qty: 1 6RF Rx Instructions: administer with spacer, rinse mouth after each use gabapentin 100 MG capsule 100 mg PO DAILY PRN (Reason: nerve pain) pantoprazole 40 MG tablet,delayed release (DR/EC) 40 mg PO DAILY PRN (Reason: reflux) fluticasone propionate 16 GM spray,suspension 1 spray INTRANASAL BID PRN (Reason: Congestion) cholecalciferol (vitamin D3) 125 mcg (5,000 unit) Capsule 125 mcg PO DAILY Primary Care Provider: Alaina Tariq Referrals: Natanael Bonilla MD [Med Staff - Active Staff] - 1-2 Weeks Alaina Tariq MD [Primary Care Provider] - 1 Week Rashid Menchaca MD [Non-Staff] - 1 Week Activity Restrictions/Additional Instructions: Your CT scan negative. Labs are stable. Urine with mild hematuria. Follow-up with urology for this. Otherwise follow-up with your PCP and GI for your abdominal pain symptoms. Return if anything worsens. Take medication as prescribed. Disposition Disposition: Home, Self Care Discharge Date/Time: 05/10/22 14:07
[2022-05-10 12:16] LABS: Squamous Epithelial Cells - UA 0-5 SEEN /hpf (5-10); White Blood Cells 0-5 SEEN /hpf (0-5)
[2022-05-10 12:23] LABS: AST(SGOT) 20 U/L (15-37); Alanine Aminotransfer ALT/SGPT 27 U/L (13-56); Albumin, Serum 3.5 g/dL (3.2-5.0); Alkaline Phosphatase 82 U/L (45-117); Anion Gap 7 (5-15); BUN 12 mg/dL (7-18); BUN/Creat Ratio 14.6 RATIO (10-20); Bilirubin, Direct 0.22 mg/dL (0.00-0.30); Calcium,Total 8.8 mg/dL (8.5-10.1); Chloride 107 mmol/L (98-107); Creatinine, Serum 0.82 mg/dL (0.55-1.02); EST Glomerular Filtration Rate 74 mL/min (>60); Est Glom Filt Rate - Afr Amer 89 mL/min (>60); Estimated Creatinine Clearance 76.45 ml/min; Globulin 3.7 g/dL (2.2-4.2); Glucose 171 mg/dL (74-106); Lipase 92 U/L (73-393); Potassium 3.6 mmol/L (3.5-5.1); Protein, Total 7.2 g/dL (6.4-8.2); Sodium Level 143 mmol/L (136-145)
--- NOTE | 2022-05-10 12:37 | CT_ITS ---
STUDY: CT ABDOMEN AND PELVIS WITH CONTRAST REASON FOR EXAM: Female, 66 years old. 3 day history of lower abdominal pain. RADIATION DOSAGE (If Supplied By Facility): CTDIvol = ( 16.04 ) mGy, DLP = ( 1154.20 ) mGycm TECHNIQUE: Transaxial images were obtained from the dome of the diaphragm to the symphysis pubis without oral contrast. IV 100mL Isovue-300 was administered. Sagittal and coronal images were reconstructed. Individualized dose optimization techniques were used for this CT. COMPARISON: Comparison is made with prior examination dated 05/04/2020. FINDINGS: The visualized lung bases are unremarkable. The visualized portions of the heart are within normal limits. There is decreased attenuation of the liver consistent with steatosis. Normal gallbladder and extrahepatic biliary system. Normal spleen. Normal pancreas. Normal bilateral adrenal glands. Normal right kidney. Normal left kidney. Normal visualized stomach. Normal small intestine. Normal colon. There are surgical clips in the region of the appendix consistent with a prior appendectomy. There is scattered atherosclerotic calcification of the abdominal aorta, without a demonstrated aneurysm. Normal inferior vena cava. Normal retroperitoneum. Normal urinary bladder. Calcified phleboliths are seen in the pelvis. Normal abdominal wall. Disc space narrowing and spondylosis at the L5-S1 level. CT/Abdomen/Pelvis W IV Cont ONLY IMPRESSION: Fatty infiltration of the liver. Electronically Signed: Gal Aparicio MD at 13:21 EST ,
[2022-05-10 14:06] VITALS: BP 132/87; PULSE 71; RESP 16; O2SAT 98
== END 2022-05-10 14:07 | disposition home or self-care (01) ==
PROVIDERS: Emergency Provider Emergency Medicine; PCP Internal Medicine; Visit Provider Emergency Medicine
DX: R10.9 Unspecified abdominal pain (principal); R31.9 Hematuria, unspecified; Z87.891 Personal history of nicotine dependence; I10 Essential (primary) hypertension; Z86.16 Personal history of COVID-19; E78.5 Hyperlipidemia, unspecified; I25.10 Atherosclerotic heart disease of native coronary artery without angina pectoris; K21.9 Gastro-esophageal reflux disease without esophagitis; F32.A Depression, unspecified
CPT/HCPCS: 74177; 80048; 80076; 81001; 83690; 85025; 99283; J7030; Q9967; A4216; J2405

== ENCOUNTER 2022-06-10 21:24 | Emergency (ER) | payer MEDICARE, SELFPAY ==
[2022-06-10 21:25] VITALS: BP 174/76; PULSE 66; RESP 18; TEMP 36.9; O2SAT 99; BMI 34.9
--- NOTE | 2022-06-10 23:14 | EDS_ITS ---
HPI History of Present Illness Chief Complaint: Cold Sx Narrative Narrative: Patient is a 66-year-old female with past medical history of hypertension hyperlipidemia and asthma who presents with complaint of nasal congestion sore throat cough and right ear pain. She states that she initially began with some mild congestion 2 to 3 days ago which then progressed to right ear pain and eventually sore throat and cough. She states she tried her home nebulizer treatment with minimal symptom improvement. She denies any fevers or chills or known sick contacts but with her constellation of symptoms is concerned she may have pneumonia or COVID and with this presents for evaluation [facility] Medical History (Updated 06/11/22 @ 05:[address] Leon Catherine, DO) Abnormal stress test Acute respiratory failure with hypoxia Allergies Anxiety Arthritis Asthma Atherosclerotic heart disease of [place] coronary artery without angina pectoris Back problem Bradycardia Cataract COVID-19 COVID-19 Depression Essential hypertension External hemorrhoid, thrombosed Fibrocystic breast disease Fibrocystic breast disease Fibromyalgia GERD (gastroesophageal reflux disease) Hearing problem Heart murmur History of left heart catheterization (LHC) (~06/03/21) Hyperlipidemia Hypertension Hypoxemia Migraines Pneumonia due to COVID-19 virus Sciatica Unstable angina Home Medications hydrochlorothiazide 12.5 mg capsule 12.5 mg PO DAILY diuretic 30 days #30 caps 05/02/18 [History Last Taken 06/02/21] citalopram 40 mg tablet (Celexa) 40 mg PO DAILY mental health 11/07/18 [History Last Taken 06/02/21] gabapentin 600 mg tablet 600 mg PO QHS PRN nerve pain 11/07/18 [History Last Taken Unknown] gabapentin 100 mg capsule 100 mg PO DAILY PRN nerve pain 01/06/19 [History Last Taken Unknown] albuterol sulfate 2.5 mg/3 mL (0.083 %) solution for nebulization 2.5 mg (3 mL) inhalation Q4H PRN Sob &/Or Wheezing #180 mL 02/07/19 [Rx Last Taken Unknown] pantoprazole 40 mg tablet,delayed release 40 mg PO DAILY PRN reflux 09/12/19 [History Last Taken 2 Days Ago ~05/31/21] fluticasone propionate 50 mcg/actuation nasal spray,suspension 1 spray intranasal BID PRN Congestion 05/04/20 [History Last Taken Unknown] metoprolol succinate 25 mg tablet,extended release 24 hr 12.5 mg PO DAILY #90 tabs 05/15/21 [Rx Last Taken 06/02/21] benzonatate 100 mg capsule 100 mg PO TID PRN Cough 05/22/21 [History Last Taken 2 Days Ago ~05/31/21] aspirin 81 mg tablet,delayed release (Adult Aspirin Regimen) 81 mg PO DAILY #30 tabs 06/02/21 [Rx Last Taken 2 Days Ago ~05/31/21] cholecalciferol (vitamin D3) 125 mcg (5,000 unit) capsule 125 mcg PO DAILY vitamin 06/02/21 [History Last Taken 06/02/21] atorvastatin 40 mg tablet 40 mg PO QHS #90 tabs 06/29/21 [Rx Last Taken Unknown] isosorbide mononitrate 60 mg tablet,extended release 24 hr 60 mg PO DAILY #90 tabs 06/29/21 [Rx Last Taken Unknown] montelukast 10 mg tablet (Singulair) 10 mg PO DAILY allergies #90 tabs 06/30/21 [Rx Last Taken Unknown] albuterol sulfate 90 mcg/actuation aerosol inhaler (Ventolin HFA) 2 puff inhalation Q4H PRN shortness of breath or wheezing #1 device 01/01/22 [Rx Last Taken Unknown] budesonide-formoterol HFA 160 mcg-4.5 mcg/actuation aerosol inhaler (Symbicort) 2 puff inhalation BID #1 ea 01/01/22 [Rx Last Taken Unknown] amlodipine 2.5 mg tablet (Norvasc) 2.5 mg PO DAILY #30 tabs 01/06/22 [Rx Last Taken Unknown] losartan 25 mg tablet 25 mg PO DAILY blood pressure 30 days #30 tabs 01/06/22 [History Last Taken Unknown] dicyclomine 20 mg tablet 20 mg PO TID PRN abdominal cramping #20 tabs 05/10/22 [Rx Last Taken Unknown] azelastine 137 mcg (0.1 %) nasal spray aerosol 2 spray intranasal BID #30 mL 06/10/22 [Rx Last Taken Unknown] hydrocodone-homatropine 5 mg-1.5 mg/5 mL (5 mL) oral syrup (Hycodan) 5 ml PO 4X/DAY PRN PRN cough 7 days #140 mL 06/10/22 [Rx Last Taken Unknown] prednisone 20 mg tablet 20 mg PO DAILY 5 days #5 tabs 06/10/22 [Rx Last Taken Unknown] Allergy/AdvReac Type Severity Reaction Status Date / Time apple Allergy Hives Verified 06/10/22 21:28 banana Allergy Hives Verified 06/10/22 21:28 carrot Allergy Hives Verified 06/10/22 21:28 pineapple Allergy Itching Verified 06/10/22 21:28 shellfish derived [lobster] Allergy Anaphylaxis Verified 06/10/22 21:28 shrimp Allergy Anaphylaxis Verified 06/10/22 21:28 amoxicillin AdvReac YEAST Verified 06/10/22 21:28 INFECTION Family History Sister Breast cancer Mother Heart disease Enlarged heart Hx of CABG CABG x 4. Rheumatoid arthritis Grandmother Enlarged heart Father Diabetes Other Anxiety and depression Arthritis History of blood clots Hypertension Surgical History H/O tubal ligation History of removal of cyst Hx of appendectomy Social History household members: spouse Smoking Status: Former smoker quit date: 04/11/93 alcohol intake: current alcohol intake frequency: holidays/special occasions only Alcohol type: wine details: social substance use type: does not use caffeine: No additional social history: Does take aspirin daily Does not take Ibuprofen ROS ROS ED Constitutional Constitutional ED: Denies chills or fever(s) ENT ENT ED: Reports ear pain, rhinorrhea and sore throat Cardiovascular Cardiovascular: Denies chest pain Respiratory/Chest Respiratory/Chest: Reports cough and dyspnea Gastrointestinal Gastrointestinal: Denies abdominal pain, diarrhea, nausea or vomiting Genitourinary Genitourinary ED: Denies dysuria Musculoskeletal Musculoskeletal: Reports myalgias Integumentary Denies rash Neurologic Neurologic: Denies headache(s) Hematologic/Lymphatic Hematologic/Lymphatic: Denies easy bleeding or easy bruising EXAM Physical Exam Const Vital Signs: 06/10/22 21:25 06/10/22 22:48 Temperature 98.4 F Temperature Source Temporal Pulse Rate 66 Respiratory Rate 18 Respiratory Effort Normal Blood Pressure 174/76 H Blood Pressure Mean 108 Pulse Ox 99 Oxygen Delivery Method Room Air Positive well nourished and well developed General Appearance ED: well developed HEENT Reports moist mucous membranes HEENT Narrative: Nasal mucosa is hyperemic and boggy with enlarged inferior nasal turbinate. There is cobblestoning the posterior pharynx consistent with sinus drainage without airway edema or compromise. Bilateral TMs are retracted with right greater than left but showing no secondary changes to suggest infection. Eyes PERRL and EOMs intact bilaterally Neck supple Neck Narrative: Positive anterior cervical lymphadenopathy present No nuchal rigidity or meningeal signs noted Resp normal respiratory effort and clear to auscultation bilaterally Cardio regular rate and regular rhythm Extremity normal to inspection Neuro oriented x3 and CN's II-XII intact bilaterally Sensorium / Orientation: alert Psych mental status grossly normal Skin no rashes or lesions noted MDM MDM MDM Narrative Medical decision making narrative: Patient presented to the ER hypertensive but otherwise with stable vitals and in no acute respiratory distress. Her constellation of symptoms is most consistent with a viral URI but as it is possible this could be COVID in nature a COVID swab was obtained. Her breath sounds are clear she is in no acute dis tress and satting 99% on room air and therefore even though pneumonia is possible my concern for this is low and I do not feel there is need for a chest x-ray. With her report of ear pain she could have otitis media but exam suggest that her pain is secondary to eustachian tube dysfunction and pressure as there is no erythema or air-fluid levels. Sore throat could also be secondary to strep but she has cobblestoning indicating postnasal drip as a cause of her sore throat and as there is no airway edema or compromise or signs of secondary infection I do not feel need for a strep swab or a imaging of her neck. The patient will be placed on symptomatic care regarding her viral URI the patient is agreeable to it and as she is in no acute respiratory distress or requiring supplemental oxygen she is otherwise safe for discharge History & Record Review Discussion w/independent historian: Patient and Significant other Discharge Plan Triage Chief Complaint: Cold Sx ED Provider: Leon Catherine Dx/Rx/DC Orders Clinical Impression: Viral upper respiratory tract infection, Asthma, Essential hypertension, Former smoker Instructions: ED URI, Viral, No Abx (Adult) Prescriptions: New azelastine 137 mcg (0.1 %) aerosol,spray 2 spray intranasal BID Qty: 30 0RF Rx Instructions: administer into each nostril prednisone 20 mg tablet 20 mg PO DAILY 5 Days Qty: 5 0RF hydrocodone-homatropine [Hycodan] 5-1.5 mg/5 mL (5 mL) syrup 5 ml PO 4X/DAY PRN PRN (Reason: cough) 7 Days Qty: 140 0RF No Action hydrochlorothiazide 12.5 mg capsule 12.5 mg PO DAILY 30 Days Qty: 30 losartan 25 mg tablet 25 mg PO DAILY 30 Days Qty: 30 citalopram [Celexa] 40 mg tablet 40 mg PO DAILY gabapentin 600 mg tablet 600 mg PO QHS PRN (Reason: nerve pain) albuterol sulfate 2.5 mg /3 mL (0.083 %) solution for nebulization 2.5 mg INHALATION Q4H PRN (Reason: Sob &/Or Wheezing) Qty: 180 3RF montelukast [Singulair] 10 mg tablet 10 mg PO DAILY Qty: 90 3RF metoprolol succinate 25 mg tablet extended release 24 hr 12.5 mg PO DAILY Qty: 90 3RF Hold Instructions: Bradycardia benzonatate 100 mg capsule 100 mg PO TID PRN (Reason: Cough) Label Comments: Take 1 capsule by mouth three times daily as needed for cough. isosorbide mononitrate 60 mg tablet extended release 24 hr 60 mg PO DAILY Qty: 90 3RF atorvastatin 40 mg tablet 40 mg PO QHS Qty: 90 3RF aspirin [Adult Aspirin Regimen] 81 mg tablet,delayed release (DR/EC) 81 mg PO DAILY Qty: 30 0RF amlodipine [Norvasc] 2.5 mg tablet 2.5 mg PO DAILY Qty: 30 11RF albuterol sulfate [Ventolin HFA] 90 mcg/actuation HFA aerosol inhaler 2 puff INHALATION Q4H PRN (Reason: shortness of breath or wheezing) Qty: 1 3RF budesonide-formoterol [Symbicort] 160-4.5 mcg/actuation HFA aerosol inhaler 2 puff inhalation BID Qty: 1 6RF Rx Instructions: administer with spacer, rinse mouth after each use gabapentin 100 MG capsule 100 mg PO DAILY PRN (Reason: nerve pain) pantoprazole 40 MG tablet,delayed release (DR/EC) 40 mg PO DAILY PRN (Reason: reflux) fluticasone propionate 16 GM spray,suspension 1 spray INTRANASAL BID PRN (Reason: Congestion) cholecalciferol (vitamin D3) 125 mcg (5,000 unit) Capsule 125 mcg PO DAILY dicyclomine 20 mg tablet 20 mg PO TID PRN (Reason: abdominal cramping) Qty: 20 0RF Primary Care Provider: Alaina Tariq Referrals: Alaina Tariq MD [Primary Care Provider] - Activity Restrictions/Additional Instructions: Your COVID test is negative but your symptoms are consistent with an other viral infection and this is called a upper respiratory tract infection. From start to finish this will last approximately 3 weeks with there were symptoms being for approximately 7 to 10 days. Take the medications prescribed as directed to help control symptoms and return to the ER should you have any further concerns Disposition Disposition: Home, Self Care Discharge Date/Time: 06/10/22 23:26
[2022-06-10] MEDS: dexAMETHasone 10 MG/ML Vial PO.IVFORM (23:20)
[2022-06-10] MEDS: guaiFENesin/Codeine 5 ML UDC 10 ML PO (23:20)
== END 2022-06-10 23:26 | disposition home or self-care (01) ==
PROVIDERS: Emergency Provider Emergency Medicine; PCP Internal Medicine; Visit Provider Emergency Medicine
DX: J06.9 Acute upper respiratory infection, unspecified (principal); H92.01 Otalgia, right ear; I10 Essential (primary) hypertension; J45.909 Unspecified asthma, uncomplicated; Z87.891 Personal history of nicotine dependence; E78.5 Hyperlipidemia, unspecified; Z79.52 Long term (current) use of systemic steroids; Z20.822 Contact with and (suspected) exposure to COVID-19
CPT/HCPCS: 87811; 99282

== ENCOUNTER → 2022-06-16 | Outpatient (CLI) | payer MEDICARE, SELFPAY | END | disposition home or self-care (01) | LOC: PSN 09:13 | PROVIDERS: PCP Internal Medicine; Referring Provider Internal Medicine Cardiovascular Disease; Visit Provider Internal Medicine Cardiovascular Disease | DX: R00.1 Bradycardia, unspecified (principal); I25.10 Atherosclerotic heart disease of native coronary artery without angina pectoris; R55 Syncope and collapse | CPT/HCPCS: 93225; 93226 ==

== ENCOUNTER → 2022-09-01 | Outpatient (CLI) | payer MEDICARE, SELFPAY ==
--- NOTE | 2022-09-01 14:59 | PFTCOMP_ITS ---
COMPLETE PULMONARY FUNCTION TEST INTERPRETATION Brief HPI: Patient is a 66-year-old black female, currently under the care of Alejandra Ferguson, who presents to [facility] for complete pulmonary function tests secondary to diagnosis of asthma. Respiratory therapist reports good effort and reproducible results. Interpretation: Forced expiration spirometry shows no large airways obstructive ventilatory defect with an FEV1 of 79% predicted. There is no significant bronchodilator response by strict ATS criteria. Spirograms are of good quality and plateau normally. The respiratory flow volume loop shows a normal pattern. Lung volumes by body plethysmography show a decreased total lung capacity at 4. 29 L, 68% predicted. All other lung volumes are reduced symmetrically. Diffusion capacity by carbon monoxide is decreased at 67% predicted. The airway resistance is normal. Compared to previous pulmonary function tests from 11/24/2018, there has been no significant change. Impression: Mild restrictive ventilatory defect with a symmetric reduction in diffusion capacity, but no significant change compared to 2019
== END | disposition home or self-care (01) ==
PROVIDERS: PCP Internal Medicine; Referring Provider Clinical Nurse Specialist; Visit Provider Clinical Nurse Specialist
DX: J45.909 Unspecified asthma, uncomplicated (principal)
CPT/HCPCS: 94060; 94726; 94729

== ENCOUNTER 2022-12-14 14:30 | Emergency (ER) | payer MEDICARE, SELFPAY ==
[2022-12-14 14:31] VITALS: BP 147/77; PULSE 71; RESP 14; TEMP 36.3; O2SAT 98
[2022-12-14 15:46] VITALS: BMI 35.0
[2022-12-14] MEDS: Oxycodone/Apap 5/325 Tablet PO (16:17)
--- NOTE | 2022-12-14 16:30 | RAD_ITS ---
INDICATION: pain EXAMINATION/TECHNIQUE: X-RAY - RIGHT XR Ankle Min 3 Views 3 VIEWS COMPARISON: FINDINGS: No acute fracture or dislocation. Small bone spurs. Joint spaces are well-maintained. Normal alignment. Soft tissues are unremarkable. No radiopaque foreign body or soft tissue gas. RAD/Ankle min 3 Views IMPRESSION: Negative. Electronically Signed: Peggy Murdock MD at 17:17 EDT Reading Location ID and State: [id number] / Tel , Service support ,
--- NOTE | 2022-12-14 16:30 | RAD_ITS ---
INDICATION: pain EXAMINATION/TECHNIQUE: X-RAY - RIGHT XR Knee Complete 4 Views or More 4 VIEWS COMPARISON: 08/23/2016. FINDINGS: No acute fracture or dislocation. No destructive bone changes. Joint spaces are well-maintained. Normal alignment. Soft tissues are unremarkable. No radiopaque foreign body or soft tissue gas. RAD/Knee 4 or More Views IMPRESSION: Negative. Electronically Signed: Peggy Murdock MD at 17:31 EDT Reading Location ID and State: [id number] / Tel , Service support ,
--- NOTE | 2022-12-14 16:30 | RAD_ITS ---
INDICATION: pain EXAMINATION/TECHNIQUE: X-RAY - XR Hip Unilateral with Pelvis when performed; 2-3 Views COMPARISON: FINDINGS: No acute fracture or dislocation. Mild osteoarthrosis of the right hip with moderate spurring. Joint space is maintained. Sclerosis of the pubic bones consistent with osteitis pubis. Normal alignment. Soft tissues are unremarkable. No radiopaque foreign body or soft tissue gas. RAD/HIP, UNI W/ Pelvis 2-3 Views IMPRESSION: No acute findings. Mild osteoarthrosis of the right hip. Electronically Signed: Peggy Murdock MD at 17:23 EDT Reading Location ID and State: [id number] / Tel , Service support ,
--- NOTE | 2022-12-14 18:03 | EX.ED.DYSGE1 ---
HPI History of Present Illness Chief Complaint: Lower Extremity Injury Narrative Narrative: Patient presents with right hip pain which is chronic she is now developing right knee and right ankle pain. No injury. Pain is quite intense. She has an appointment with orthopedics in 6 days. [facility] Medical History Abnormal stress test Acute respiratory failure with hypoxia Allergies Anxiety Arthritis Asthma Atherosclerotic heart disease of [place] coronary artery without angina pectoris Back problem Bradycardia Cataract COVID-19 COVID-19 Depression Essential hypertension External hemorrhoid, thrombosed Fibrocystic breast disease Fibrocystic breast disease Fibromyalgia GERD (gastroesophageal reflux disease) Hearing problem Heart murmur History of left heart catheterization (LHC) (~06/03/21) Hyperlipidemia Hypertension Hypoxemia Migraines Pneumonia due to COVID-19 virus Sciatica Unstable angina Home Medications citalopram 40 mg tablet (Celexa) 40 mg PO DAILY mental health 11/07/18 [History Last Taken 06/02/21] gabapentin 600 mg tablet 600 mg PO QHS PRN nerve pain 11/07/18 [History Last Taken Unknown] gabapentin 100 mg capsule 100 mg PO DAILY PRN nerve pain 01/06/19 [History Last Taken Unknown] albuterol sulfate 2.5 mg/3 mL (0.083 %) solution for nebulization 2.5 mg (3 mL) inhalation Q4H PRN Sob &/Or Wheezing #180 mL 02/07/19 [Rx Last Taken Unknown] pantoprazole 40 mg tablet,delayed release 40 mg PO DAILY PRN reflux 09/12/19 [History Last Taken 2 Days Ago ~05/31/21] fluticasone propionate 50 mcg/actuation nasal spray,suspension 1 spray intranasal BID PRN Congestion 05/04/20 [History Last Taken Unknown] aspirin 81 mg tablet,delayed release (Adult Aspirin Regimen) 81 mg PO DAILY #30 tabs 06/02/21 [Rx Last Taken 2 Days Ago ~05/31/21] cholecalciferol (vitamin D3) 125 mcg (5,000 unit) capsule 125 mcg PO DAILY vitamin 06/02/21 [History Last Taken 06/02/21] montelukast 10 mg tablet (Singulair) 10 mg PO DAILY allergies #90 tabs 06/30/21 [Rx Last Taken Unknown] albuterol sulfate 90 mcg/actuation aerosol inhaler (Ventolin HFA) 2 puff inhalation Q4H PRN shortness of breath or wheezing #1 device 01/01/22 [Rx Last Taken Unknown] dicyclomine 20 mg tablet 20 mg PO TID PRN abdominal cramping #20 tabs 05/10/22 [Rx Last Taken Unknown] azelastine 137 mcg (0.1 %) nasal spray aerosol 2 spray intranasal BID #30 mL 06/10/22 [Rx Last Taken Unknown] hydrocodone-homatropine 5 mg-1.5 mg/5 mL (5 mL) oral syrup (Hycodan) 5 ml PO 4X/DAY PRN PRN cough 7 days #140 mL 06/10/22 [Rx Last Taken Unknown] budesonide-formoterol HFA 160 mcg-4.5 mcg/actuation aerosol inhaler (Symbicort) 2 puff inhalation BID #1 ea 07/02/22 [Rx Last Taken Unknown] isosorbide mononitrate 60 mg tablet,extended release 24 hr 60 mg PO DAILY #90 tabs 07/26/22 [Rx Last Taken Unknown] amlodipine 2.5 mg tablet (Norvasc) 2.5 mg PO DAILY #30 tabs 09/09/22 [Rx Last Taken Unknown] hydrochlorothiazide 12.5 mg capsule 12.5 mg PO DAILY diuretic 30 days #30 caps 09/09/22 [Rx Last Taken Unknown] losartan 25 mg tablet 25 mg PO DAILY blood pressure 30 days #30 tabs 09/09/22 [Rx Last Taken Unknown] atorvastatin 40 mg tablet 40 mg PO QHS #90 tabs 11/04/22 [Rx Last Taken Unknown] hydrocodone-acetaminophen 5-325mg 5mg-325mg 1 tab PO Q4H PRN PRN Pain 3 days #10 TABLETS 12/14/22 [Rx Last Taken Unknown] hydrocodone-acetaminophen 5-325mg 5mg-325mg 1 tab PO Q4H PRN PRN Pain 3 days #10 TABLETS 12/14/22 [Rx Last Taken Unknown] Allergy/AdvReac Type Severity Reaction Status Date / Time apple Allergy Hives Verified 12/14/22 14:31 banana Allergy Hives Verified 12/14/22 14:31 carrot Allergy Hives Verified 12/14/22 14:31 pineapple Allergy Itching Verified 12/14/22 14:31 shellfish derived [lobster] Allergy Anaphylaxis Verified 12/14/22 14:31 shrimp Allergy Anaphylaxis Verified 12/14/22 14:31 amoxicillin AdvReac YEAST Verified 12/14/22 14:31 INFECTION Family History (Reviewed 07/02/22 @ 09:58 by Seema Scott [employer], [employer]-C) Sister Breast cancer Mother Heart disease Enlarged heart Hx of CABG CABG x 4. Rheumatoid arthritis Grandmother Enlarged heart Father Diabetes Other Anxiety and depression Arthritis History of blood clots Hypertension Surgical History (Reviewed 07/02/22 @ 09:58 by Seema Scott [employer]ATOR, [employer]ATOR-C) H/O tubal ligation History of removal of cyst Hx of appendectomy Social History (Reviewed 07/02/22 @ 09:58 by Seema Scott [employer] OPERATOR, [employer]PERATOR-C) household members: spouse Smoking Status: Former smoker quit date: 04/11/93 alcohol intake: current alcohol intake frequency: holidays/special occasions only Alcohol type: wine details: social substance use type: does not use caffeine: No additional social history: Does take aspirin daily Does not take Ibuprofen ROS ROS ED ROS Narrative Past medical history: Bradycardia, history of hypertension, hypercholesterolemia Medications: Reviewed Social history: Former smoker Review of systems: Musculoskeletal: As in HPI Skin: No abrasions or lacerations Neurological: No weakness or paresthesias Hematologic: No easy bleeding or easy bruising EXAM Physical Exam Narrative Exam Narrative: Physical exam General: Patient does not appear in significant distress . Head: Normocephalic, Atraumatic Neck: No C-spine tenderness Cardiovascular: Normal distal pulses Back: Nontender, Normal Inspection. Extremities: Right hip shows tenderness to logrolling and in the groin region. No instability in the pelvis. Ill-defined knee and ankle pain without any effusion. Skin: No abrasions, no lacerations Neurological: Normal strength and sensation Const Vital Signs: 12/14/22 14:31 Temperature 97.3 F L Temperature Source Temporal Pulse Rate 71 Respiratory Rate 14 Blood Pressure 147/77 H Blood Pressure Mean 100 Pulse Ox 98 Oxygen Delivery Method Room Air MDM MDM MDM Narrative Medical decision making narrative: Hip x-ray read by me as DJD Knee x-ray read by me as normal Ankle x-ray read by me as normal. Patient does have DJD. At this time I will give her analgesics. I gave her analgesics in the ED with improvement. She can follow-up with orthopedics. I do not believe this is discogenic. I do not believe she needs an MRI at this time. She does not meet admission criteria since she can still ambulate. I will give her a walker for home since the cane does not seem to be helping. Otherwise she will be discharged in stable condition with analgesia. Radiography Diagnostic Testing: Clinical Impression(s) from Imaging Studies Ankle X-Ray 12/14/22 16:30 IMPRESSION: Negative. Electronically Signed: Peggy Murdock MD at 17:17 EDT Reading Location ID and State: Ramo Salazar MD Tel , Service support , Hip/Pelvis X-Ray 12/14/22 16:30 IMPRESSION: No acute findings. Mild osteoarthrosis of the right hip. Electronically Signed: Peggy Murdock MD at 17:23 EDT Reading Location ID and State: Ramo Salazar MD Tel , Service support , Knee X-Ray 12/14/22 16:30 IMPRESSION: Negative. Electronically Signed: Peggy Murdock MD at 17:31 EDT Reading Location ID and State: Ramo Salazar MD Tel , Service support , Discharge Plan Triage Chief Complaint: Lower Extremity Injury ED Provider: Talon Guerrero Dx/Rx/DC Orders Clinical Impression: Acute hip pain, DJD (degenerative joint disease) Instructions: What Is Arthritis?, What Is Osteoarthritis? Prescriptions: New hydrocodone-acetaminophen 5-325 mg tablet 1 tab PO Q4H PRN PRN (Reason: Pain) 3 Days Qty: 10 0RF hydrocodone-acetaminophen 5-325 mg tablet 1 tab PO Q4H PRN PRN (Reason: Pain) 3 Days Qty: 10 0RF No Action citalopram [Celexa] 40 mg tablet 40 mg PO DAILY gabapentin 600 mg tablet 600 mg PO QHS PRN (Reason: nerve pain) albuterol sulfate 2.5 mg /3 mL (0.083 %) solution for nebulization 2.5 mg INHALATION Q4H PRN (Reason: Sob &/Or Wheezing) Qty: 180 3RF montelukast [Singulair] 10 mg tablet 10 mg PO DAILY Qty: 90 3RF aspirin [Adult Aspirin Regimen] 81 mg tablet,delayed release (DR/EC) 81 mg PO DAILY Qty: 30 0RF albuterol sulfate [Ventolin HFA] 90 mcg/actuation HFA aerosol inhaler 2 puff INHALATION Q4H PRN (Reason: shortness of breath or wheezing) Qty: 1 3RF budesonide-formoterol [Symbicort] 160-4.5 mcg/actuation HFA aerosol inhaler 2 puff inhalation BID Qty: 1 6RF Rx Instructions: administer with spacer, rinse mouth after each use gabapentin 100 MG capsule 100 mg PO DAILY PRN (Reason: nerve pain) pantoprazole 40 MG tablet,delayed release (DR/EC) 40 mg PO DAILY PRN (Reason: reflux) fluticasone propionate 16 GM spray,suspension 1 spray INTRANASAL BID PRN (Reason: Congestion) cholecalciferol (vitamin D3) 125 mcg (5,000 unit) Capsule 125 mcg PO DAILY dicyclomine 20 mg tablet 20 mg PO TID PRN (Reason: abdominal cramping) Qty: 20 0RF azelastine 137 mcg (0.1 %) aerosol,spray 2 spray intranasal BID Qty: 30 0RF Rx Instructions: administer into each nostril hydrocodone-homatropine [Hycodan] 5-1.5 mg/5 mL (5 mL) syrup 5 ml PO 4X/DAY PRN PRN (Reason: cough) 7 Days Qty: 140 0RF isosorbide mononitrate 60 mg tablet extended release 24 hr 60 mg PO DAILY Qty: 90 3RF amlodipine [Norvasc] 2.5 mg tablet 2.5 mg PO DAILY Qty: 30 11RF losartan 25 mg tablet 25 mg PO DAILY 30 Days Qty: 30 12RF hydrochlorothiazide 12.5 mg capsule 12.5 mg PO DAILY 30 Days Qty: 30 12RF atorvastatin 40 mg tablet 40 mg PO QHS Qty: 90 3RF Primary Care Provider: Alaina Tariq Referrals: Alaina Tariq MD [Primary Care Provider] - 3-5 Days Disposition Disposition: Home, Self Care
[2022-12-14 18:26] VITALS: BP 118/72; PULSE 71; RESP 16; O2SAT 98
== END 2022-12-14 18:27 | disposition home or self-care (01) ==
PROVIDERS: Emergency Provider Emergency Medicine; PCP Internal Medicine; Visit Provider Emergency Medicine
DX: M16.11 Unilateral primary osteoarthritis, right hip (principal); Z87.891 Personal history of nicotine dependence; E78.00 Pure hypercholesterolemia, unspecified; I10 Essential (primary) hypertension; M25.571 Pain in right ankle and joints of right foot; E78.5 Hyperlipidemia, unspecified; K21.9 Gastro-esophageal reflux disease without esophagitis; Z86.16 Personal history of COVID-19; I25.10 Atherosclerotic heart disease of native coronary artery without angina pectoris; G89.29 Other chronic pain
CPT/HCPCS: 73502; 73564; 73610; 99283

== ENCOUNTER → 2022-12-22 | Outpatient (CLI) | payer MEDICARE, SELFPAY ==
--- NOTE | 2022-12-22 12:00 | RAD_ITS ---
PROCEDURE: Fluoroscopic guided Hip Injection DATE: December 22, 2022. INDICATION: Female, 67 years old. Chronic right hip pain. PHYSICIAN: Gal Aparicio M.D. MEDICATIONS: 80 mg of Kenalog and 3 cc 1% lidocaine. 2% lidocaine administered subcutaneously for local anesthesia. ACCESS SITE: Right hip. NEEDLE: 22-gauge spinal needle. FLUOROSCOPY TIME (if supplied): (0:40) minutes/seconds. 21.46 mGy. One image was submitted. FINDINGS: The risks, benefits, and alternatives to the procedure were explained to the patient. The specific risks of bleeding, infection, and neurovascular injury were detailed and accepted. Witnessed informed consent was obtained. A 22-gauge spinal needle was positioned under radiographic fluoroscopic localization. Approximately 2 cc of Isovue-300 instilled for localization purposes. Medication was then injected. The patient tolerated the procedure well without any immediate complications. RAD/Inj/Asp Antoine Jt Should/Hip/Knee IMPRESSION: 1. Successful fluoroscopic guided hip injection. Electronically Signed: Gal Aparicio MD at 12:50 EDT ,
[2022-12-22] MEDS: Lidocaine 2% (5ml sdv) 5 ML VIAL.MPF INFILT (12:07)
[2022-12-22] MEDS: Betamethasone/Betamethasone 30 MG/5 ML Vial 12 MG INTRAARTIC (12:10)
[2022-12-22] MEDS: Lidocaine 1% (5 ml sdv) 5 ML Vial 3 ML OPERA.SITE (12:10)
== END | disposition home or self-care (01) ==
LOC: RAD 11:25
PROVIDERS: PCP Internal Medicine
DX: M16.11 Unilateral primary osteoarthritis, right hip (principal)
CPT/HCPCS: 20610; 77002; Q9967; J0702

== ENCOUNTER 2023-01-15 08:54 | Emergency (ER) | payer MEDICARE, SELFPAY ==
[2023-01-15 08:55] VITALS: BP 157/96; PULSE 81; RESP 20; TEMP 35.9; O2SAT 99; BMI 35.3
--- NOTE | 2023-01-15 09:13 | CT_ITS ---
EXAM: CT HEAD WITHOUT INTRAVENOUS CONTRAST CLINICAL INDICATION: Headache TECHNIQUE: Multiple axial images were obtained of the head without intravenous contrast. This CT exam was performed using one or more of the following dose reduction techniques: automated exposure control, adjustment of the mA and/or kV according to patient size, and/or use of iterative reconstruction technique. COMPARISON: CT Head dated 01/23/2021 FINDINGS: BRAIN AND EXTRA-AXIAL SPACES: Normal. No intra- or extra-axial hemorrhage. No acute infarct. No intracranial mass or mass effect. There is preservation of the randle/white matter interface. Posterior fossa structures are unremarkable. Ventricles are appropriate for age. No hydrocephalus. Basal cisterns are patent. BONES/JOINTS: No suspicious lytic or blastic abnormality. SINUSES: No acute sinusitis. MASTOID AIR CELLS: Normal. Clear. CT/Brain/Head without Contrast IMPRESSION: No acute intracranial abnormality. No interval change. Electronically Signed: Luis Diaz MD at 11:49 EDT ,
--- NOTE | 2023-01-15 09:13 | EKG12_ITS ---
Test Reason : Blood Pressure : / mmHG Vent. Rate : 058 BPM Atrial Rate : 058 BPM P-R Int : 204 ms QRS Dur : 088 ms QT Int : 436 ms P-R-T Axes : 055 069 061 degrees QTc Int : 428 ms Sinus bradycardia Otherwise normal ECG Confirmed by RAI SUÁREZ, LENKA ([id number]), film editor SAGRARIO SNOW ([id number]) on 01/18/2023 7:40:34 AM Referred By: Confirmed By:LENKA ATWOOD MD
--- NOTE | 2023-01-15 09:26 | RAD_ITS ---
EXAM: XR CHEST, 1 VIEW CLINICAL INDICATION: Shortness of breath TECHNIQUE: Frontal view of the chest. COMPARISON: XR Chest dated 06/02/2021 FINDINGS: LUNGS AND PLEURAL SPACES: No consolidation or edema. No pneumothorax. No effusion. HEART: Normal heart size. MEDIASTINUM: No mediastinal or hilar mass. BONES/JOINTS: No acute abnormality. RAD/Chest 1 View (Portable) IMPRESSION: No acute cardiopulmonary abnormality. No interval change Electronically Signed: Luis Diaz MD at 11:12 EDT ,
[2023-01-15] MEDS: 0.9% Normal Saline (1000mL) 1,000 ML 1000 ML IV (09:34)
[2023-01-15 09:40] VITALS: BP 151/73; PULSE 60; RESP 15; O2SAT 98
--- NOTE | 2023-01-15 09:47 | CT_ITS ---
INDICATION: pain EXAMINATION: CTA HEAD - CTA Head and Neck W/ Contrast Injection (and W/O Contrast Images if performed) TECHNIQUE: [place]/head CT angiogram protocol was performed following IV contrast. Routine carotid CT angiogram protocol was performed without and with IV contrast. NASCET criteria using the distal ICAs for comparison were used for evaluation of stenoses. 3D reconstructions were reviewed of the CT angiogram head and neck. A radiation dose optimization technique was used for this scan. IV Contrast dosage and agent: 100 cc Isovue-370 COMPARISON: None. FINDINGS: --Anterior cerebral circulation: ACAs: No significant stenosis at the visualized segments. ACOM: Not present. MCAs: No significant stenosis at the visualized segments. --Posterior cerebral circulation: PCOMs: Left P-comm is present. adult remedial education instructor: No significant stenosis at the visualized segments. BASILAR ARTERY: No significant stenosis. --Carotid and vertebral circulation: AORTIC ARCH AND BRANCHES: Left common carotid artery arises from a common trunk with the right innominate artery. RIGHT CCA: No occlusion, significant stenosis or dissection. RIGHT ICA: Prominent calcific plaquing at the origin. No occlusion, significant stenosis or dissection. LEFT CCA: No occlusion, significant stenosis or dissection. LEFT ICA: Mild calcific plaquing at the origin. No occlusion, significant stenosis or dissection. RIGHT VERTEBRAL ARTERY: No occlusion, significant stenosis or dissection. LEFT VERTEBRAL ARTERY: No occlusion, significant stenosis or dissection. NECK SOFT TISSUES: Unremarkable. LUNG APICES: Groundglass density within the upper lobes may represent inflammatory or infectious process or pulmonary edema. BONES: Unremarkable. CT/CTA Head AND Neck W/ Contrast IMPRESSION: No evidence of arterial obstruction, significant stenosis or intracranial aneurysm. Mild groundglass densities of the lung apices which may represent inflammatory or infectious process or edema. Electronically Signed: Luis Diaz MD at 11:42 EDT ,
[2023-01-15 09:53] LABS: Absolute Lymphocyte Count 1.96 X10^3/uL (0.83-4.51); Absolute Neutrophil Count 2.3 X10^3/uL (2.0-7.7); Basophil# 0.02 X10^3/uL; Basophil% 0.4 % (0-1); Eosinophil# 0.13 X10^3/uL; Eosinophils% 2.7 % (0-5); Hematocrit 37.2 % (37-47); Hemoglobin 12.4 g/dL (12.0-15.0); Lymphocyte # 1.96 X10^3/ul (0.83-4.51); Lymphocyte % 40.8 % (19-41); Mean Corp Hgb Conc 33.3 g/dL (32-36); Mean Corpuscular Hgb 31.8 pg (27.0-32.0); Mean Corpuscular Volume 95.4 fL (81-99); Mean Platelet Vol. 8.8 fl (6.2-12.0); Monocyte# 0.42 X10^3/uL; Monocyte% 8.8 % (0-10); NRBC Flagged by Analyzer 0 % (0-5); Neutrophil # 2.26 X10^3/uL (2.7-7.7); Neutrophil % 47.1 % (47-70); Platelet Count 168 K/mm3 (150-450); RBC Distribution Width CV 12.3 % (11.6-14.6); RBC Distribution Width SD 42.8 fl (35.1-43.9); White Blood Count 4.8 K/mm3 (4.4-11.0)
[2023-01-15 10:01] LABS: Anion Gap 6 (5-15); BUN 8 mg/dL (7-18); BUN/Creat Ratio 10.8 RATIO (10-20); Calcium,Total 8.6 mg/dL (8.5-10.1); Chloride 107 mmol/L (98-107); Creatinine, Serum 0.74 mg/dL (0.55-1.02); EST Glomerular Filtration Rate 83 mL/min (>60); Est Glom Filt Rate - Afr Amer 101 mL/min (>60); Estimated Creatinine Clearance 61.85 ml/min; Glucose 145 mg/dL (74-106); Potassium 3.2 mmol/L (3.5-5.1); Sodium Level 140 mmol/L (136-145); Troponin-I HS 20 pg/mL (3.0-54.0)
[2023-01-15] MEDS: Ketorolac 15 MG/ML Vial IV (10:30)
[2023-01-15] MEDS: Ondansetron 4 MG/2 ML Vial IV (10:30)
--- NOTE | 2023-01-15 10:42 | EX.ED.DYSGE1 ---
HPI History of Present Illness Chief Complaint: Shortness of Breath Narrative Narrative: 67-year-old female presents with multiple somatic complaints, but states mainly yesterday evening she began having a headache, and neck pain. She noticed 2 swollen lymph nodes on the back of her head and neck. She is nauseated and felt lightheaded. She denies any vertiginous type symptoms states that she feels like she is going to pass out. No exacerbating or alleviating factors. She took ibuprofen without relief. She also mentioned that she may have felt short of breath, but her main concern is her head and neck pain. She denies any fevers or chills, no other symptoms. [facility] Medical History Abnormal stress test Acute respiratory failure with hypoxia Allergies Anxiety Arthritis Asthma Atherosclerotic heart disease of [place] coronary artery without angina pectoris Back problem Bradycardia Cataract COVID-19 COVID-19 Depression Essential hypertension External hemorrhoid, thrombosed Fibrocystic breast disease Fibrocystic breast disease Fibromyalgia GERD (gastroesophageal reflux disease) Hearing problem Heart murmur History of left heart catheterization (LHC) (~06/03/21) Hyperlipidemia Hypertension Hypoxemia Migraines Pneumonia due to COVID-19 virus Sciatica Unstable angina Home Medications citalopram 40 mg tablet (Celexa) 40 mg PO DAILY mental health 11/07/18 [History Last Taken 06/02/21] gabapentin 600 mg tablet 600 mg PO QHS PRN nerve pain 11/07/18 [History Last Taken Unknown] gabapentin 100 mg capsule 100 mg PO DAILY PRN nerve pain 01/06/19 [History Last Taken Unknown] albuterol sulfate 2.5 mg/3 mL (0.083 %) solution for nebulization 2.5 mg (3 mL) inhalation Q4H PRN Sob &/Or Wheezing #180 mL 02/07/19 [Rx Last Taken Unknown] pantoprazole 40 mg tablet,delayed release 40 mg PO DAILY PRN reflux 09/12/19 [History Last Taken 2 Days Ago ~05/31/21] fluticasone propionate 50 mcg/actuation nasal spray,suspension 1 spray intranasal BID PRN Congestion 05/04/20 [History Last Taken Unknown] aspirin 81 mg tablet,delayed release (Adult Aspirin Regimen) 81 mg PO DAILY #30 tabs 06/02/21 [Rx Last Taken 2 Days Ago ~05/31/21] cholecalciferol (vitamin D3) 125 mcg (5,000 unit) capsule 125 mcg PO DAILY vitamin 06/02/21 [History Last Taken 06/02/21] montelukast 10 mg tablet (Singulair) 10 mg PO DAILY allergies #90 tabs 06/30/21 [Rx Last Taken Unknown] albuterol sulfate 90 mcg/actuation aerosol inhaler (Ventolin HFA) 2 puff inhalation Q4H PRN shortness of breath or wheezing #1 device 01/01/22 [Rx Last Taken Unknown] dicyclomine 20 mg tablet 20 mg PO TID PRN abdominal cramping #20 tabs 05/10/22 [Rx Last Taken Unknown] azelastine 137 mcg (0.1 %) nasal spray aerosol 2 spray intranasal BID #30 mL 06/10/22 [Rx Last Taken Unknown] hydrocodone-homatropine 5 mg-1.5 mg/5 mL (5 mL) oral syrup (Hycodan) 5 ml PO 4X/DAY PRN PRN cough 7 days #140 mL 06/10/22 [Rx Last Taken Unknown] budesonide-formoterol HFA 160 mcg-4.5 mcg/actuation aerosol inhaler (Symbicort) 2 puff inhalation BID #1 ea 07/02/22 [Rx Last Taken Unknown] isosorbide mononitrate 60 mg tablet,extended release 24 hr 60 mg PO DAILY #90 tabs 07/26/22 [Rx Last Taken Unknown] amlodipine 2.5 mg tablet (Norvasc) 2.5 mg PO DAILY #30 tabs 09/09/22 [Rx Last Taken Unknown] hydrochlorothiazide 12.5 mg capsule 12.5 mg PO DAILY diuretic 30 days #30 caps 09/09/22 [Rx Last Taken Unknown] losartan 25 mg tablet 25 mg PO DAILY blood pressure 30 days #30 tabs 09/09/22 [Rx Last Taken Unknown] atorvastatin 40 mg tablet 40 mg PO QHS #90 tabs 11/04/22 [Rx Last Taken Unknown] hydrocodone-acetaminophen 5-325mg 5mg-325mg 1 tab PO Q4H PRN PRN Pain 3 days #10 TABLETS 12/14/22 [Rx Last Taken Unknown] hydrocodone-acetaminophen 5-325mg 5mg-325mg 1 tab PO Q4H PRN PRN Pain 3 days #10 TABLETS 12/14/22 [Rx Last Taken Unknown] Allergy/AdvReac Type Severity Reaction Status Date / Time apple Allergy Hives Verified 12/14/22 14:31 banana Allergy Hives Verified 12/14/22 14:31 carrot Allergy Hives Verified 12/14/22 14:31 pineapple Allergy Itching Verified 12/14/22 14:31 shellfish derived [lobster] Allergy Anaphylaxis Verified 12/14/22 14:31 shrimp Allergy Anaphylaxis Verified 12/14/22 14:31 amoxicillin AdvReac YEAST Verified 12/14/22 14:31 INFECTION Family History Sister Breast cancer Mother Heart disease Enlarged heart Hx of CABG CABG x 4. Rheumatoid arthritis Grandmother Enlarged heart Father Diabetes Other Anxiety and depression Arthritis History of blood clots Hypertension Surgical History H/O tubal ligation History of removal of cyst Hx of appendectomy Social History household members: spouse Smoking Status: Former smoker quit date: 04/11/93 alcohol intake: current alcohol intake frequency: holidays/special occasions only Alcohol type: wine details: social substance use type: does not use caffeine: No additional social history: Does take aspirin daily Does not take Ibuprofen ROS ROS ED ROS Narrative Constitutional: No fever, no chills. HEENT: No sore throat. Positive bilateral neck pain. Enlarged lymph nodes posterior head. No loss of vision. No rhinorrhea. Cardiovascular: No chest pain. No palpitations. No pedal edema. Respiratory: No cough, positive shortness of breath. Abdominal: No abdominal pain. Positive nausea. No vomiting. Genitourinary: No dysuria. No hematuria. Musculoskeletal: No myalgias. No arthralgias. Neurologic: No headaches. No dizziness. Positive lightheadedness. Skin: No rash. No change in color. Psychiatric: No depression. No anxiety. EXAM Physical Exam Narrative Exam Narrative: Afebrile. Vital signs noted. Nontoxic-appearing. HEENT: Normocephalic. Atraumatic. PERRL, EOMI. Neck soft and supple. No point tenderness or step off. Mild tenderness on slightly enlarged lymph nodes bilateral posterior head/occiput no erythema. No meningismus. Cardiovascular: Regular rate and rhythm. No murmurs, rubs, or gallops appreciated. Respiratory: No tachypnea. Lungs clear to auscultation bilaterally. Gastrointestinal: Abdomen soft, nontender, with normoactive bowel sounds. No rebound or guarding. Neurological: Awake. Alert. Nonfocal, nonlateralizing. Skin: No rash. Normal color. No pallor. Musculoskeletal: No pedal edema. Full range of motion extremities. Const Vital Signs: 01/15/23 08:55 01/15/23 09:40 01/15/23 09:40 Temperature 96.7 F L Temperature Source Temporal Pulse Rate 81 60 Respiratory Rate 20 H 15 Respiratory Effort Non-Labored Respiratory Pattern Normal Blood Pressure 157/96 H 151/73 H Blood Pressure Mean 116 99 Pulse Ox 99 98 Oxygen Delivery Method Room Air Room Air MDM MDM MDM Narrative Medical decision making narrative: In the differential diagnosis would be lymphadenitis, regarding her headache, she may have hypertensive bleed. I did review her chart, she does have history of fibromyalgia as well. Comprehensive work-up was pursued. Regarding her shortness of breath, lower on the differential is pneumonia as history and physical is not suggestive of this. Additionally, I have low suspicion for pneumothorax. Chest x-ray in 1 view was obtained and interpreted by myself independently. See no evidence of acute process. I reviewed the radiology report which confirms my independent interpretation. I reviewed her laboratory work, she has normal white count of 4.8, hemoglobin normal at 12.4, hematocrit 37.2, platelet count normal at 168. Sodium normal at 140 but potassium slightly low at 3.2 which was replaced orally. BUN is normal at 8, creatinine normal at 0.74, glucose is elevated at 145 but she does have a normal anion gap. High-sensitivity troponin is normal at 20. I feel this is greater than a 6-hour troponin as her symptoms began yesterday evening, greater than 6 hours ago. She was administered ondansetron for her nausea, and Toradol for her neck pain. She may have more of a musculoskeletal strain as well. I reviewed the CT reports of the CTA of the head and neck to rule out any occlusion. In review of the reports, there is no acute hemorrhage, no occlusion or dissection of the arteries. Upon repeat examination she is feeling mildly improved. Her pulse ox is 100% on room air. I do not feel she requires observation or admission at this time. She will take [id number] medications and follow-up with her primary care provider. Return instructions to the emergency department were reviewed. Disposition is discharged home in stable condition. History & Record Review Discussion w/independent historian: Patient Additional record(s) reviewed:: Prior ED visit and Prior labs Lab Data Attestation: I reviewed the patient's lab results. Labs: Laboratory Results - last 24 hr 01/15/23 09:34 WBC 4.8 RBC 3.90 L Hgb 12.4 Hct 37.2 MCV 95.4 MCH 31.8 MCHC 33.3 RDW Std Deviation 42.8 RDW Coeff of Domi 12.3 Plt Count 168 MPV 8.8 Immature Gran % (Auto) 0.200 Neut % (Auto) 47.1 Lymph % (Auto) 40.8 [place] % (Auto) 8.8 Eos % (Auto) 2.7 Baso % (Auto) 0.4 Absolute Neuts (auto) 2.3 Absolute Lymphs (auto) 1.96 Nucleated RBC % 0 Sodium 140 Potassium 3.2 L Chloride 107 Carbon Dioxide 27.0 Anion Gap 6 BUN 8 Creatinine 0.74 Estim Creat Clear Calc 61.85 Est GFR (MDRD) Af Amer 101 Est GFR (MDRD) Non-Af 83 BUN/Creatinine Ratio 10.8 Glucose 145 H Calcium 8.6 Troponin I High Sens 20 Radiography Diagnostic Testing: Clinical Impression(s) from Imaging Studies Brain CT 01/15/23 09:13 IMPRESSION: No acute intracranial abnormality. No interval change. Electronically Signed: Luis Diaz MD at 11:49 EDT , Chest X-Ray 01/15/23 09:26 IMPRESSION: No acute cardiopulmonary abnormality. No interval change Electronically Signed: Luis Diaz MD at 11:12 EDT , Head/Neck CTA 01/15/23 09:47 IMPRESSION: No evidence of arterial obstruction, significant stenosis or intracranial aneurysm. Mild groundglass densities of the lung apices which may represent inflammatory or infectious process or edema. Electronically Signed: Luis Diaz MD at 11:42 EDT , Discharge Plan Triage Chief Complaint: Shortness of Breath Other Complaint: Dizziness Headache ED Provider: Ahmet Betancourt Dx/Rx/DC Orders Clinical Impression: SOB (shortness of breath), Neck pain, Headache Instructions: ED Headache Unspecified, ED Neck Pain Prescriptions: No Action citalopram [Celexa] 40 mg tablet 40 mg PO DAILY gabapentin 600 mg tablet 600 mg PO QHS PRN (Reason: nerve pain) albuterol sulfate 2.5 mg /3 mL (0.083 %) solution for nebulization 2.5 mg INHALATION Q4H PRN (Reason: Sob &/Or Wheezing) Qty: 180 3RF montelukast [Singulair] 10 mg tablet 10 mg PO DAILY Qty: 90 3RF aspirin [Adult Aspirin Regimen] 81 mg tablet,delayed release (DR/EC) 81 mg PO DAILY Qty: 30 0RF albuterol sulfate [Ventolin HFA] 90 mcg/actuation HFA aerosol inhaler 2 puff INHALATION Q4H PRN (Reason: shortness of breath or wheezing) Qty: 1 3RF budesonide-formoterol [Symbicort] 160-4.5 mcg/actuation HFA aerosol inhaler 2 puff inhalation BID Qty: 1 6RF Rx Instructions: administer with spacer, rinse mouth after each use gabapentin 100 MG capsule 100 mg PO DAILY PRN (Reason: nerve pain) pantoprazole 40 MG tablet,delayed release (DR/EC) 40 mg PO DAILY PRN (Reason: reflux) fluticasone propionate 16 GM spray,suspension 1 spray INTRANASAL BID PRN (Reason: Congestion) cholecalciferol (vitamin D3) 125 mcg (5,000 unit) Capsule 125 mcg PO DAILY dicyclomine 20 mg tablet 20 mg PO TID PRN (Reason: abdominal cramping) Qty: 20 0RF azelastine 137 mcg (0.1 %) aerosol,spray 2 spray intranasal BID Qty: 30 0RF Rx Instructions: administer into each nostril hydrocodone-homatropine [Hycodan] 5-1.5 mg/5 mL (5 mL) syrup 5 ml PO 4X/DAY PRN PRN (Reason: cough) 7 Days Qty: 140 0RF hydrocodone-acetaminophen 5-325 mg tablet 1 tab PO Q4H PRN PRN (Reason: Pain) 3 Days Qty: 10 0RF hydrocodone-acetaminophen 5-325 mg tablet 1 tab PO Q4H PRN PRN (Reason: Pain) 3 Days Qty: 10 0RF isosorbide mononitrate 60 mg tablet extended release 24 hr 60 mg PO DAILY Qty: 90 3RF amlodipine [Norvasc] 2.5 mg tablet 2.5 mg PO DAILY Qty: 30 11RF losartan 25 mg tablet 25 mg PO DAILY 30 Days Qty: 30 12RF hydrochlorothiazide 12.5 mg capsule 12.5 mg PO DAILY 30 Days Qty: 30 12RF atorvastatin 40 mg tablet 40 mg PO QHS Qty: 90 3RF Primary Care Provider: Alaina Tariq Referrals: Alaina Tariq MD [Primary Care Provider] - 3-5 Days if not improving Disposition Disposition: Home, Self Care
[2023-01-15] MEDS: Potassium Chloride Oral Tablet 20 MEQ 40 MEQ PO (12:11)
[2023-01-15 12:17] VITALS: BP 141/71; PULSE 53; RESP 17; O2SAT 96
== END 2023-01-15 12:18 | disposition home or self-care (01) ==
PROVIDERS: Emergency Provider Emergency Medicine; PCP Internal Medicine; Visit Provider Emergency Medicine
DX: R06.02 Shortness of breath (principal); R51.9 Headache, unspecified; M54.2 Cervicalgia; Z87.891 Personal history of nicotine dependence; R11.0 Nausea; F32.A Depression, unspecified; Z79.899 Other long term (current) drug therapy; J45.909 Unspecified asthma, uncomplicated; K21.9 Gastro-esophageal reflux disease without esophagitis; Z79.82 Long term (current) use of aspirin; I10 Essential (primary) hypertension; E78.5 Hyperlipidemia, unspecified; I25.10 Atherosclerotic heart disease of native coronary artery without angina pectoris; Z90.49 Acquired absence of other specified parts of digestive tract
CPT/HCPCS: 70450; 70496; 70498; 71045; 80048; 84484; 85025; 93005; 96361; 96374; 96375; 99285; Q9967; J2405

== ENCOUNTER → 2023-04-29 | Outpatient (CLI) | payer MEDICARE, SELFPAY ==
--- OUTSIDE RECORDS SUMMARY | 2023-04-29 08:42 | XMS RPT_ITS | CCD ---
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 CHART CHANGER.CARRIER OPERATOR Work Phone: [facility] 09-01-2021 12:30-0400 SaO2% (BldA) [Mass fraction] 97 % Froylan Dorsey CHART CHANGER.CARRIER OPERATOR Work Phone: [facility] 09-01-2021 12:30-0400 Systolic blood pressure 132 mm[Hg] Froylan Dorsey CHART CHANGER.CARRIER OPERATOR Work Phone: [facility] 08-17-2021 16:32-0400 Body weight 112.95 kg Ilay Monroe MD Work Phone: [facility] 08-17-2021 16:32-0400 Diastolic blood pressure 72 mm[Hg] Ilya Monroe MD Work Phone: [facility] 08-17-2021 16:32-0400 Heart rate 62 /min Ilya Monroe MD Work Phone: [facility] 08-17-2021 16:32-0400 Systolic blood pressure 122 mm[Hg] Ilya Monroe MD Work Phone: [facility] 08-05-2021 10:14-0400 Body temperature 96.8 [degF] Sunni Athy PA-C Work Phone: [facility] 08-05-2021 10:14-0400 Body weight 112.86 kg Sunni Athy PA-C Work Phone: [facility] 08-05-2021 10:14-0400 Diastolic blood pressure 78 mm[Hg] Sunni Athy PA-C Work Phone: [facility] 08-05-2021 10:14-0400 Heart rate 58 /min Sunni Athy PA-C Work Phone: [facility] 08-05-2021 10:14-0400 Respiratory rate 21 /min Sunni Athy PA-C Work Phone: [facility] 08-05-2021 10:14-0400 SaO2% (BldA) [Mass fraction] 96 % Sunni Athy PA-C Work Phone: [facility] 08-05-2021 10:14-0400 Systolic blood pressure 120 mm[Hg] Sunni Athy PA-C Work Phone: [facility] 08-26-2019 05:30-0400 BP Diastolic 84 mm[Hg] [place] [facility] 08-26-2019 05:30-0400 BP Systolic 155 mm[Hg] [facility] 08-26-2019 05:30-0400 Pulse (Heart Rate) 64 /min [facility] 08-26-2019 05:30-0400 [facility] 94 [facility] 08-26-2019 05:30-0400 Respiratory Rate 16 /min [facility] 08-26-2019 01:15-0400 BMI (Body Mass Index) 31.33 kg/m2 [facility] 08-26-2019 01:15-0400 Body Temperature 98.71 [degF] [facility] 08-26-2019 01:15-0400 Body weight 104.78 kg [facility] 08-26-2019 01:15-0400 Height 182.9 cm [facility] 08-24-2019 01:15-0400 Pulse (Heart Rate) 86 /min [facility] 08-24-2019 01:15-0400 Pulse Oximetry 93 % Tinorubén Arias [facility] 08-23-2019 22:07-0400 BMI (Body Mass Index) 31.33 kg/m2 [facility] 08-23-2019 22:07-0400 Body Temperature 99 [degF] [facility] [place] [facility] 08-23-2019 22:07-0400 Body weight 104.78 kg Tinorubén Arias [facility] 08-23-2019 22:07-0400 BP Diastolic 78 mm[Hg] [facility] [place] [facility] 08-23-2019 22:07-0400 BP [facility]stolic 167 mm[facility]Hg[facility] 08-23-2019 22:07-0400 Respiratory Rate 18 /min Tinorubén Arias [facility] 08-20-2019 21:45-0400 BP Diastolic 74 mm[Hg] Jamaal Irvin [facility] 08-20-2019 21:45-0400 BP Systolic 157 mm[Hg] Jamaal Irvin [facility] 08-20-2019 21:45-0400 Pulse (Heart Rate) 73 /min Jamaalraymond Irvin [facility] 08-20-2019 21:45-0400 Pulse Oximetry 99 % Jamaal Irvin [facility] 08-20-2019 21:45-0400 Respiratory Rate 16 /min Jamaal Egal [facility] 08-20-2019 19:31-0400 BMI (Body Mass Index) 31.33 kg/m2 [facility] 19:31-0400 Body Temperature 98.49 [degF] Jamaal Irvin [facility] 08-20-2019 19:31-0400 Body weight 104.78 kg Jamaal Irvin [facility] 08-20-2019 19:31-0400 Height 182.9 cm Jamaal Irvin [facility] Encounters Encounter Date Encounter Type Care Provider Facility Start: 04-13-2023 End: 04-14-2023 ambulatory [facility] Facility:[facility] Start: 04-13-2023 End: 04-13-2023 ambulatory [facility] Facility:[facility] Start: 04-12-2023 End: 04-12-2023 ambulatory KAREN BAE Facility:[facility] Start: 04-05-2023 End: 04-06-2023 ambulatory [facility] Facility:[facility] Start: 04-01-2023 End: 04-01-2023 ambulatory KAREN BAE Facility:[facility] Start: 04-01-2023 ambulatory KAREN BAE Facility: [facility] Start: 03-31-2023 End: 03-31-2023 ambulatory [facility] Facility:[facility] Start: 03-30-2023 End: 03-30-2023 ambulatory [facility] Facility:[facility] Start: 03-25-2023 ambulatory KAREN BAE Facility: [facility] Start: 03-25-2023 End: 03-25-2023 Subsequent hospital visit by physician Procedure Mammo [facility] RADIO MAMMO REFLECTIONS [facility] Procedures Date Procedure Procedure Detail Performing Clinician Start: 03-25-2023 Us breast uni real time with image limited Karen Bae MD Work Phone: Start: 03-17-2023 Mri breast without&with contrast w/cad bilateral Karen Bae MD Work Phone: Start: 02-22-2023 Diagnostic mammography computer-aided detcj uni Concetta Knox MD Work Phone: Start: 02-22-2023 Biopsy muscle percutaneous needle Concetta Knox MD Work Phone: Start: 01-31-2023 COVID & INFLUENZA A/B NAAT, ROUTINE Raven Crane PA-C Work Phone: Start: 11-18-2022 Smr prim src gram/giemsa stain bct fungi/cell Ronit Kapoor APRN.CARRIER OPERATOR Work Phone: Start: 08-18-2022 Computerized ophthalmic imaging retina Mylene Lezama MD Work Phone: Start: 07-28-2022 H/O: tubal ligation History of tubal ligation Mylene Lezama MD Work Phone: Start: 07-28-2022 History of appendectomy History of appendectomy Mylene Lezama MD Work Phone: Start: 05-27-2022 Ecg routine ecg w/least 12 lds i&r only [facility] Provider Start: 05-27-2022 Lipid 1996 panel - Serum or Plasma Ronit Kapoor APRN.CARRIER OPERATOR Work Phone: Start: 03-02-2022 IOL BIOMETRY W/ IOL CALC OU (BOTH EYES) Mylene Lezama MD Work Phone: Start: 03-02-2022 End: 03-02-2022 Computerized ophthalmic imaging retina Mylene Lezama MD Work Phone: Start: 02-22-2022 PFIZER-BIONTECH COVID-19 BIVALENT BOOSTER VACCINE, AGE 12+ YR Adriana Joya CHART CHANGER.ELEMENTARY VOCAL MUSIC TEACHER Work Phone: Start: 12-11-2021 TERESE SCREENING W RAFY Quintanilla CHART CHANGER. CNM Work Phone: Start: 12-11-2021 Mammography Screen Wstr Start: 11-30-2021 PFIZER-BIONTECH COVID-19 VACCINE, AGE 12+ YR (MCGUIRE TOP) Ilya Monroe MD Work Phone: Start: 10-08-2021 Us abdominal real time w/image limited Ilya Monroe MD Work Phone: Start: 09-01-2021 Radex hand minimum 3 views Froylan Dorsey CHART CHANGER.CARRIER OPERATOR Work Phone: Start: 06-30-2021 PFIZER-BIONTECH COVID-19 VACCINE, AGE 12+ YR (MCGUIRE TOP) Ilya Monroe MD Work Phone: Start: 08-26-2019 Basic metabolic 1998 panel - Serum or Plasma Penny Duque Work Phone: Start: 08-26-2019 Complete blood count with white cell differential, automated Penny Duque Work Phone: Start: 08-26-2019 Complete blood count with white cell differential, manual Penny Duque Work Phone: Start: 08-26-2019 Hepatic function 2000 panel - Serum or Plasma Penny Duque Work Phone: Start: 08-26-2019 Lipase [Enzymatic activity/volume] in Serum or Plasma Penny Duque Work Phone: Start: 08-26-2019 Troponin measurement Penny Duque Work Phone: Start: 08-26-2019 Radiologic exam chest single view Penny Duque Work Phone: Start: 08-24-2019 Radiologic exam chest single view Nicole Toledo Work Phone: Start: 08-23-2019 Basic metabolic 2000 panel - Serum or Plasma Nicole Toledo Work Phone: Start: 08-23-2019 Complete blood count with white cell differential, automated Nicole Toledo Work Phone: Start: 08-23-2019 Complete blood count with white cell differential, manual Nicole Toledo Work Phone: Start: 08-23-2019 COVID-19, MOLECULAR Nicole Toledo Work Phone: Start: 08-23-2019 INR in Platelet poor plasma by Coagulation assay Nicole Toledo Work Phone: Start: 08-23-2019 Streptococcus pyogenes Ag [Presence] in Throat Nicole L. 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 DR PRASHANTH ESPINOZA MD H/O: tubal ligation DR RAFAEL ESPINOZA MD Plan of Treatment Date Care Activity Detail Author Start: 05-27-2027 Lipid 1996 panel - S maria alejandra or Plasma Lipid Screening [facility] Start: 05-27-2027 Lipid panel Lipid Screening [facility] Start: 05-27-2027 LIPID SCREEN LIPID SCREEN [facility] Start: 05-24-2027 Tetanus vaccination Tetanus: Every 1 0yrs [facility] Start: 05-24-2027 Urine microalbumin profile [facility] Start: 08-23-2025 DIABETES SCREEN DIABETES SCREEN [facility] Start: 08-23-2025 Diabetes Screening Diabetes Screenin g [facility] Start: 05-27-2025 DIABETES SCREEN DIABETES SCREEN [facility] Start: 12-03-2024 LIPID SCREEN LIPID SCREEN [facility] Start: 08-18-2024 DIABETES SCREEN DIABETES SCREEN [facility] Start: 01-30-2024 DIABETES SCREEN DIABETES SCREEN [facility] Start: 12-31-2023 Mammography Mammogram Screening [facility] Start: 12-31-2023 Screening for malign ant neoplasm of breast Mammogram Screening [facility] Start: 11-19-2023 End: 12-18-2023 TERESE SCREENING W RAFY TERESE SCREENING W RAFY Radiology Routine Encounter for screening mammogram for breast cancer Dense breast tissue Expected: 11/19/2023 (Approximate), Expires: 12/18/2023 [facility] Work Phone: Immunizations Immunization Date Immunization Notes Care Provider Angela kincaid 02-22-2022 COVID-19 booster vaccine, age 12+ yr, bivalent (PFIZER-BIONTECH) Adriana Joya APRN.ELEMENTARY VOCAL MUSIC TEACHER Work Phone: [facility] Work Phone: 02-22-2022 pneumococcal (PCV20) vaccine, 20 valent (PREVNAR 20) Adriana Joya APRN.ELEMENTARY VOCAL MUSIC TEACHER Work Phone: [facility] Work Phone: 02-22-2022 pneumococcal Conjuga te, unspecified formulation Adrianakenji Joya APRN.ELEMENTARY VOCAL MUSIC TEACHER Work Phone: [facility] Work Phone: 11-30-2021 COVID-19 vaccine, ag e 12+ yr (PFIZER-BIONTECH - MCGUIRE TOP) Brenda Diggs [facility] Work Phone: [facility] Work Phone: 06-30-2021 COVID-19 vaccine, ag e 12+ yr (PFIZER-BIONTECH - MCGUIRE TOP) Vt Nurse Work Phone: [facility] Work Phone: 06-08-2021 COVID-19 vaccine, ag e 12+ yr (PFIZER-BIONTECH - MCGUIRE TOP) Vt Nurse Work Phone: [facility] Work Phone: 05-24-2017 tetanus toxoid, redu hernandez diphtheria toxoid, and acellular pertussis vaccine, adsorbed Vt Nurse Work Phone: [facility] 03-22-2017 influenza virus vaccine, unspecified formulation Roint Kapoor APRN.CARRIER OPERATOR Work Phone: [facility] 11-01-2016 zoster vaccine, live Mi Nurs e Work Phone: [facility] Payers Date Payer Category Payer Medicare AETNA MEDICARE A ETNA MEDICARE HMO [id number] 2021-Present [phone] [address] [place] [address] O [id number] 2021 Medicare AETNA MEDICARE A ETNA MEDICARE O [id number] 2021-Present [phone] [address] [place] [address] [facility] [id number] 2021 Medicare [id number] 2019 Medicare MMO MANAGED MEDI CARE MMO MANAGED MEDICARE HMO xxxxxxx 2019-Present [id number] 2019 Medicare [id number] 2019 Medicare MMO MANAGED MEDI CARE MMO MANAGED MEDICARE O [id number] 2019-Present [id number] 1956 Unknown [id number] 1956 Unknown [id number] 1956 Unknown [id number] Social History Date Type Detail Facility Start: 08-23-2019 End: 12-11-2021 Tobacco smoking status NHIS Former smoker [facility] Work Phone: Start: 08-23-2019 End: 08-26-2019 Alcohol intake Lifetime non-drinker (finding) [facility] Start: 08-20-2019 History SDOH Alcohol Frequency 1 [facility] Start: 1955 Sex Assigned At Not on file [facility] Start: 05-06-2021 End: 03-02-2022 Exposure to SARS-CoV-2 (event) Not sure [facility] Start: 08-26-2019 End: 12-11-2021 Tobacco use and exposure Never used [facility] End: 04-11-1993 History of tobacco use Current smoker [facility] Work Phone: Start: 05-08-2021 End: 03-09-2023 Alcohol intake Current drinker of alcohol (finding) [facility] Start: 09-22-2009 History SDOH Alcohol Comment rarely [facility] End: 04-11-1993 History of tobacco use Cigarette Smoker [facility] Start: 03-16-2020 End: 11-18-2022 History of Social function [facility] Work Phone: Start: 03-16-2020 End: 11-18-2022 Tobacco use panel [facility] Work Phone: Adult Depression Screening Assessment 3 [facility] Work Phone: Medical Equipment Procedure Code Equipment Code Equipment Origin al Text Equipment Identifier Dates Lens Acrysof Ultrasert +20.5 Diopter Acrylic Iol 1 Piece Foldable Uv Blue - [id number] Start: 06-22-2022 Clinical Notes 06-30-2021 to 04-13-2023 Argenis Baron, RT(R) - 03/25/2023 12:30 PM Eveline Orourke MD, MD - 03/23/2023 1:30 PM Jami Tinsley RN - 03/23/2023 1:24 PM Eve Ryan, RT(R) - 03/17/2023 7:00 AM EST Note Date & Type Note Facility 04-13-2023 Note HNO ID: [id number] Author: Heriberto Swain MD Service: ? Author Type: Physician Type: Progress Notes Filed: 04/13/2023 1:31 PM Note Text: Phone call visit, pt consents. Reviewed staging studies bone scan shows concerning lesions. I had reviewed the bone scan with IR, they agree the lesions are concerning for metastases, but are too small to biopsy. Discussed yesterday with DR Bae. I am not wanting to assume stage IV disease without pathologic confirmation, nor do we want to do unnecessary breast surgery. We agree a reasonable way forward is to do endocrine therapy in neoadjuvant fashion, we can then assess breast response, as well as any changes in bone lesions. This may help us decide the significance of the bone findings. Will also check a CA 27-29. Discussed all of this with patient, will follow up in 4 weeks or so for assessment of breast. 30 minutes in call, and documentation and discussions with other providers. Heriberto Swain MD April 13, 2023 [facility] 04-12-2023 Note HNO ID: [id number] Author: Karen Bae MD Service: ? Author Type: Physician Type: Progress Notes Filed: 04/12/2023 2:01 PM Note Text: Karen Bae MD [facility] [address] [place] [address] HPI: Ms. Florez is a Black 67 year old woman who presents for follow up after left breast image guided biopsy x 2. FAMILY HISTORY Problem Relation Age of Onset Heart Mother Enlarged Heart Ischemic Heart Disease Mother DVT Mother other (gallbladder) Mother Stroke Father Hypertension Father Diabetes Father Breast Cancer Half-sister Stage 2 Diabetes Brother Type 1 Stroke Brother Alcohol/Drug Brother Over-dose No Known Problems Daughter No Known Problems Daughter No Known Problems Son other (Bi-Polar) Son Breast Cancer Niece half-niece dx age 42 Pancreatic Cancer Other maternal half-aunt No Ocular Disease No Family History PAST MEDICAL HISTORY Diagnosis Date Acute respiratory failure with hypoxia (HCC) 08/23/2022 Asthmatic bronchitis Bilateral sciatica Biliary colic Gallbladder attack. Cervical dysplasia age 31 DDD (degenerative disc disease), lumbar Fibrocystic breast Fibromyalgia HTN (hypertension) Interstitial cystitis Obesity (BMI 35.0-39.9 without comorbidity) Seafood allergy, anaphylaxis Dr. Wadsworth PAST SURGICAL HISTORY Procedure Laterality Date APPENDECTOMY BREAST BIOPSY ~1999 R breast BX BREAST PERC NEED W/GUID 05/26/2010 U/S needle core UOQ right breast BX OF BREAST; INCISIONAL 02/22/2023 left axilla [place] [facility] BX OF BREAST; INCISIONAL Left 04/01/2023 coil clip BX OF BREAST; INCISIONAL Left 04/01/2023 clear clip COLONOSCOPY FLX DX W/COLLJ SPEC WHEN PFRMD 05/18/2013 CRYO CAUTERY CERVIX 1988 EXCISION ROLLINS'S NEUROMA, SINGLE, EACH 1995 R foot NEUROPLASTY AND/TRANSPOS MEDIAN NRV CARPAL TUNNE Right 1998 Carpal tunnel decomp TUBAL LIGATION, Social History Tobacco Use Smoking status: Former Types: Cigarettes Quit date: 04/11/1993 Years since quittin.0 Smokeless tobacco: Never Vaping Use Vaping Use: Never used Substance Use Topics Alcohol use: Yes Comment: Rarely Drug use: No No question data found. LAB AND IMAGING RESULTS: IMPRESSION: Left axillary adenopathy, likely metastatic. Shotty mediastinal and hilar lymph nodes are borderline and nonspecific. Small osseous sclerotic foci suspicious for metastasis. Solitary tiny right upper lobe pulmonary nodule of uncertain clinical significance. FINAL DIAGNOSIS A. Left breast, 1:00, 6 cm from nipple, coil clip, needle core biopsy: -- Invasive ductal carcinoma with features suggestive of lymph node replacement, see comment. B. Left breast, 9:00, 5 cm from nipple, clear clip, needle core biopsy: -- Invasive ductal carcinoma with lobular features, provisional grade 2, see comment. -- Perineural invasion is identified. ER/RI is positive, HER2 is negative Review of Systems Constitutional: Negative for chills and fever. PHYSICAL EXAMINATION: BP 131/75 Pulse 68 Ht 180.3 cm (5' 11 ) Wt 110.2 kg (243 lb) LMP 07/15/2010 BMI 33.89 kg/m? General appearance: Well appearing, alert, in no acute distress Skin: skin color, texture, turgor normal, no suspicious rashes or lesions Eyes: Anicteric sclera, Pupils are equally round and reactive Extremities: No clubbing, cyanosis, or edema. Neuro: Alert and oriented times three Left breast: Her incision is clean dry and intact. There is no evidence of infection or hematoma. Physical Exam Plan IMPRESSION / PLAN: Ms. Florez is a Black 67 year old woman who presents for follow up after left breast image guided biopsy x 2 and staging studies. Clinical examination reveals no evidence of postprocedural complications. Pathologic findings are as follows: FINAL DIAGNOSIS A. Left breast, 1:00, 6 cm from nipple, coil clip, needle core biopsy: -- Invasive ductal carcinoma with features suggestive of lymph node replacement, see comment. B. Left breast, 9:00, 5 cm from nipple, clear clip, needle core biopsy: -- Invasive ductal carcinoma with lobular features, provisional grade 2, see comment. -- Perineural invasion is identified. ER/RI is positive, HER2 is negative CT of the chest shows findings consistent with bony metastases to the thoracic spine and sternum. These findings were reviewed with Dr. Swain, medical oncology. The plan is to proceed with neoadjuvant therapy. She will return to the breast center to discuss surgery after completion of treatment. DIAGNOSIS: No diagnosis found. Monthly self breast exams encouraged. I discussed my findings and recommendations with the patient. Ms. Florez is in agreement with the plan. Karen Bae MD [facility] 04-05-2023 Note HNO ID: [id number] Author: Ariadna Hurst, RT(R) Service: ? Author Type: Social Media Strategist Type: Progress Notes Filed: 04/05/2023 2:24 PM Note Text: Radiology Service Progress Note DATE OF SERVICE: April 05, 2023 TIME: 2:24 PM PATIENT IDENTITY VERIFICATION COMPLETED USING TWO (2) STANDARD IDENTIFIERS: Name and Date of confirmed by patient verbally. FALL SCREENING: Has the patient had 2 falls in the last year or 1 fall with injury or currently using an Ambulatory Assistive Device (Walker, Cane, Wheelchair, Crutches, etc.)? No PATIENT GENDER DATA: Female. status: : No status: NO. PATIENT RELEVANT IMPLANT DATA REVIEWED: Yes ALLERGIES: Reviewed and unchanged CONTRAST ALLERGY: NO. EXAM: CT -CONTRAST INDUCED NEPHROPATHY RISK FACTORS: Patient age > 60 years CREATININE: Creatinine Date Value Ref Range Status 04/05/2023 0.79 0.58 - 0.96 mg/dL Final 05/27/2022 0.74 0.58 - 0.96 mg/dL Final 08/18/2021 0.77 0.58 - 0.96 mg/dL Final Estimated Glomerular Filtration Rate Date Value Ref Range Status 04/05/2023 83 >=60 mL/min/1.73m? Final Comment: Estimated Glomerular Filtration Rate (eGFR) is calculated using the 2020 CKD-EPI creatinine equation. This equation utilizes serum creatinine, sex, and age as parameters. The creatinine assay has traceable calibration to isotope dilution-mass spectrometry. Refer to KDIGO guidelines for clinical interpretation. In patients with unstable renal function, e.g. those with acute kidney injury, the eGFR may not accurately reflect actual GFR. eGFR- Date Value Ref Range Status 01/29/2021 >60 Final P.O.C.T. RESULTS: POC done: Yes, See Lab Tab April 05, 2023 TREATMENT: N/A PERIPHERAL IV DATA: Ambulatory: A peripheral IV was started in the Left antecubital site with a Angio cath: 22 gauge. RADIOLOGY DEPARTMENT: CT; Exam(s) Completed: Chest Abdomen Pelvis SIGNATURE: RT Rita(R) PATIENT NAME: Yadiel Florez DATE: April 05, 2023 TIME: 2:24 PM [facility] 04-01-2023 Note HNO ID: [id number] Author: Reina Mcgraw Carlos Service: ? Author Type: Genetic Counselor Type: Progress Notes Filed: 04/01/2023 2:41 PM Note Text: [facility] Consultation Note Genetic Counselor: Reina Mcgraw MS, [facility] Patient: Yadiel Florez Patient Name and confirmed at initiation of visit. This visit was conducted via telephone. I have communicated my name and active licensure. The patient's identity and physical location were verified at the time of this visit. Either the patient or their legal marketing representative has been informed of the risks and benefits of -- and alternatives to -- treatment through a remote evaluation and consents to proceed with the evaluation remotely. HIGH LEVEL SUMMARY: The patient's personal and family history is potentially suggestive of a hereditary breast cancer syndrome. The patient provided informed consent for Breast Cancer STAT Panel with reflex to the Multi-Cancer Panel through [facility]. Results are expected in 2 weeks. IDENTIFICATION AND CHIEF COMPLAINT: Dr. Karen Bae requested a consultation for genetic counseling and risk assessment for Yadiel Florez, a 67 year old female, for discussion of her recent diagnosis of breast cancer. She presents to clinic today to discuss the possibility of a genetic predisposition to cancer, and to further clarify her risks, as well as her family members' risks for cancer. HISTORY OF PRESENT ILLNESS: In February 2023, at the age of 67, Yadiel Florez was diagnosed with breast cancer of the Left axilla (ER+RI+HER2-). She is in the early stages of treatment planning. PAST MEDICAL HISTORY Diagnosis Date Acute respiratory failure with hypoxia (HCC) 08/23/2022 Asthmatic bronchitis Bilateral sciatica Biliary colic Gallbladder attack. Cervical dysplasia age 31 DDD (degenerative disc disease), lumbar Fibrocystic breast Fibromyalgia HTN (hypertension) Interstitial cystitis Obesity (BMI 35.0-39.9 without comorbidity) Seafood allergy, anaphylaxis Dr. Wadsworth PAST SURGICAL HISTORY Procedure Laterality Date APPENDECTOMY BREAST BIOPSY ~1999 R breast BX BREAST PERC NEED W/GUID 05/26/2010 U/S needle core UOQ right breast BX OF BREAST; INCISIONAL 02/22/2023 left axilla [place] [facility] COLONOSCOPY FLX DX W/COLLJ SPEC WHEN PFRMD 05/18/2013 CRYO CAUTERY CERVIX 1987 EXCISION ROLLINS'S NEUROMA, SINGLE, EACH 1995 R foot NEUROPLASTY AND/TRANSPOS MEDIAN NRV CARPAL TUNNE Right 1998 Carpal tunnel decomp TUBAL LIGATION, REPRODUCTIVE HISTORY AND PERSONAL RISK ASSESSMENT FACTORS: Weight: Last 1 Encounter Wt Readings: Date: Wt: 03/30/2023 112.9 kg (249 lb) Height: Last 1 Encounter Ht Readings: Date: Ht: 03/30/2023 176 cm (5' 9.29 ) Uterus Intact: Yes Ovaries Intact: Yes SOCIAL HISTORY: Social History Tobacco Use Smoking status: Former Types: Cigarettes Quit date: 04/11/1993 Years since quittin.9 Smokeless tobacco: Never Vaping Use Vaping Use: Never used Substance Use Topics Alcohol use: Yes Comment: Rarely Drug use: No FAMILY HISTORY: We obtained a detailed, 4-generation family history. Significant diagnoses are listed below: FAMILY HISTORY Problem Relation Age of Onset Heart Mother Enlarged Heart Ischemic Heart Disease Mother DVT Mother other (gallbladder) Mother Stroke Father Hypertension Father Diabetes Father Breast Cancer Half-sister Stage 2 Diabetes Brother Type 1 Stroke Brother Alcohol/Drug Brother Over-dose No Known Problems Daughter No Known Problems Daughter No Known Problems Son other (Bi-Polar) Son Breast Cancer Niece half-niece dx age 42 Pancreatic Cancer Other maternal half-aunt No Ocular Disease No Family History A copy of the patient's pedigree will be available under the scanned documents tab following today's visit. GENETIC COUNSELING RISK ASSESSMENT, DISCUSSION, AND SUGGESTED FOLLOW UP: We reviewed the natural history and genetic etiology of sporadic, familial and hereditary cancer syndromes. The patient's personal and family history is potentially suggestive of: a hereditary breast cancer syndrome The patient meets NCCN HBOC testing criteria based on her personal history of breast cancer and close relative with breast cancer <= 50. We discussed that identification of a hereditary cancer syndrome may help her care providers tailor her medical management. If a mutation is detected, the National Comprehensive Cancer Network and/or expert opinion recommendations could include increased cancer surveillance and prophylactic surgery options. If a mutation is detected, the patient will be referred back to the referring provider and to any additional appropriate care providers to discuss the relevant options. Inheritance of hereditary cancer syndromes was discussed with the pa (more content not included)... [facility] 04-01-2023 Note HNO ID: [id number] Author: Oswald Quijano RT(R) Service: ? Author Type: Technologist Type: Progress Notes Filed: 04/01/2023 10:05 AM Note Text: Radiology Service Progress Note PATIENT NAME: Yadiel Florez DATE OF SERVICE: April 01, 2023 TIME: 10:04 AM PATIENT IDENTITY VERIFICATION COMPLETED USING TWO (2) IDENTIFIERS: Name and Date of confirmed by patient verbally. FALL SCREENING: Has the patient had 2 falls in the last year or 1 fall with injury or currently using an Ambulatory Assistive Device (Walker, Cane, Wheelchair, Crutches, etc.)? No PATIENT GENDER DATA: Female. status: : No status: NO. PATIENT RELEVANT IMPLANT DATA REVIEWED: Not Applicable RADIOLOGY DEPARTMENT: Biopsy and Ultrasound PERIPHERAL IV DATA: Not applicable SIGNED BY: RT Elias(R) April 01, 2023 10:04 AM [facility] 03-31-2023 Note HNO ID: [id number] Author: Kinsey Littlejohn RT(Kemar) Service: Nuclear Medicine Author Type: Technologist Type: Progress Notes Filed: 03/31/2023 10:12 AM Note Text: RADIOLOGY SERVICE PROGRESS NOTE SERVICE DATE: 03/31/2023 SERVICE TIME: 08:55 AM PATIENT IDENTITY VERIFICATION COMPLETED USING TWO (2) STANDARD IDENTIFIERS: Name and Date of confirmed by patient verbally FALL SCREENING: Has the patient had 2 falls in the last year or 1 fall with injury or currently using an Ambulatory Assistive Device (Walker, Cane, Wheelchair, Crutches, etc.)? No PATIENT GENDER DATA: .female : No ALLERGIES: Reviewed and unchanged MEDICATIONS REVIEWED: No PATIENT RELEVANT IMPLANT DATA REVIEWED: Not Applicable CREATININE: Creatinine Date Value Ref Range Status 05/27/2022 0.74 0.58 - 0.96 mg/dL Final 08/18/2021 0.77 0.58 - 0.96 mg/dL Final 01/29/2021 0.78 0.58 - 0.96 mg/dL Final Estimated Glomerular Filtration Rate Date Value Ref Range Status 05/27/2022 90 >=60 mL/min/1.73m? Final Comment: Estimated Glomerular Filtration Rate (eGFR) is calculated using the 2020 CKD-EPI creatinine equation. This equation utilizes serum creatinine, sex, and age as parameters. The creatinine assay has traceable calibration to isotope dilution-mass spectrometry. Refer to KDIGO guidelines for clinical interpretation. In patients with unstable renal function, e.g. those with acute kidney injury, the eGFR may not accurately reflect actual GFR. eGFR- Date Value Ref Range Status 01/29/2021 >60 Final P.O.C.T. RESULTS: N/A March 31, [address] PERFORMED: No IV SITE: Ambulatory: A peripheral IV was started in the Right antecubital site with a Angio cath: 24 gauge. POST EXAM PIV STATUS: Discontinued PROCEDURE TYPE: NM INJECT: Whole Body Bone Scan. 24 mCi Tc99m MDP. No other medications given.. ADMINISTRATION TIME: 09:07 PATIENT DISCHARGED TO: Ambulatory patient, left NM department area. A Diagnostic radioactive procedure has taken place, with no further precautions necessary other than routine body substance precautions. More information regarding radiation safety can be found using this link: [email or web address] SIGNATURE: RT Miranda(R) PATIENT NAME: Yadiel Florez DATE: March 31, 2023 TIME: 10:11 AM PAGER/CONTACT #: [facility] 03-30-2023 Note HNO ID: [id number] Author: Heriberto Swain MD Service: ? Author Type: Physician Type: Progress Notes Filed: 03/30/2023 3:53 PM Note Text: HISTORY OF PRESENT ILLNESS: Yadiel Florez is a 67 year old female with abnormal mammogram in December, work up shows several axillary LN, biopsy shows carcinoma c/w breast primary, ER+/RI+/Her20. Here to establish medical oncoogy care. Reviewed findings thus far. Very stressed, but otherwise no sx. Family history reviewed. She sees genetics soon. CLINICAL IMPRESSION: cTxN1 MRI shows at least [address] RECOMMENDATION/PLAN: 1. Await biopsy of additional lesion found on MRI 2. Unless different histology found, would favor surgery up front, see no advantage to doing preop chemotherapy 3. Will follow up by phone after planned biopsy Written and verbal health teaching given to patient, patient verbalizes understanding and agrees with treatment plan. PAST MEDICAL HISTORY Diagnosis Date Acute respiratory failure with hypoxia (HCC) 08/23/2022 Asthmatic bronchitis Bilateral sciatica Biliary colic Gallbladder attack. Cervical dysplasia age 31 DDD (degenerative disc disease), lumbar Fibrocystic breast Fibromyalgia HTN (hypertension) Interstitial cystitis Obesity (BMI 35.0-39.9 without comorbidity) Seafood allergy, anaphylaxis Dr. Wadsworth PAST SURGICAL HISTORY Procedure Laterality Date APPENDECTOMY BREAST BIOPSY ~1999 R breast BX BREAST PERC NEED W/GUID 05/26/2010 U/S needle core UOQ right breast BX OF BREAST; INCISIONAL 02/22/2023 left axilla [place] [facility] COLONOSCOPY FLX DX W/COLLJ SPEC WHEN PFRMD 05/18/2013 CRYO CAUTERY CERVIX 1987 EXCISION ROLLINS'S NEUROMA, SINGLE, EACH 1995 R foot NEUROPLASTY AND/TRANSPOS MEDIAN NRV CARPAL TUNNE Right 1998 Carpal tunnel decomp TUBAL LIGATION, FAMILY HISTORY Problem Relation Age of Onset Heart Mother Enlarged Heart Ischemic Heart Disease Mother DVT Mother other (gallbladder) Mother Stroke Father Hypertension Father Diabetes Father Breast Cancer Sister Stage 2 Diabetes Brother Type 1 Stroke Brother Alcohol/Drug Brother Over-dose No Known Problems Daughter No Known Problems Daughter No Known Problems Son other (Bi-Polar) Son Breast Cancer Niece paternal niece dx age 42 No Ocular Disease No Family History Social History Tobacco Use Smoking status: Former Types: Cigarettes Quit date: 04/11/1993 Years since quittin.9 Smokeless tobacco: Never Vaping Use Vaping Use: Never used Substance Use Topics Alcohol use: Yes Comment: Rarely Drug use: No ALLERGIES: ALLERGIES Allergen Reactions Apple Hives, Anaphylaxis Banana Hives, Anaphylaxis Carrot Hives, Anaphylaxis Pineapple Itching, Anaphylaxis Shellfish Derived Swelling, Anaphylaxis Food allergies--lip and tongue swelling (Dr. Wadsworth diagnosed and prescribes EpiPen) Shrimp and lobster the worst Amoxicillin Other: See Comments Yeast infection CURRENT OUTPATIENT MEDICATIONS: anastrozole (ARIMIDEX) 1 mg tablet Take 1 tablet by mouth once daily. hydroCHLOROthiazide 12.5 mg capsule Take 1 capsule by mouth once daily. As directed citalopram (CELEXA) 40 mg tablet Take 1 tablet by mouth once daily. gabapentin (NEURONTIN) 100 mg capsule Take 1 capsule by mouth twice daily as needed for up to 180 days. In addition to taking 600 mg pill at bedtime gabapentin (NEURONTIN) 600 mg tablet Take 1 tablet by mouth daily at bedtime for 180 days. As directed isosorbide mononitrate ER (IMDUR) 60 mg 24 hr tablet Take 60 mg by mouth once daily. SYMBICORT 160-4.5 mcg/actuation inhaler as needed. amLODIPine (NORVASC) 2.5 mg tablet Take 2.5 mg by mouth once daily. azelastine 0.1% nasal spray Use 2 Sprays in each nostril as needed. losartan (COZAAR) 25 mg tablet Take 1 tablet by mouth once daily. pantoprazole DR (PROTONIX) 40 mg tablet Take 1 tablet by mouth daily before breakfast. Take on empty stomach, 1/2 hr before meal. montelukast (SINGULAIR) 10 mg tablet Take 1 tablet by mouth daily at bedtime. fluticasone (FLONASE) 50 mcg/actuation nasal spray Use 2 Sprays in each nostril once daily. Rinse mouth after use. (Patient taking differently: Use 2 Sprays in each nostril as needed. Rinse mouth after use.) atorvastatin (LIPITOR) 40 mg tablet Take 40 mg by mouth daily at bedtime. meclizine (ANTIVERT) 25 mg tab Take 1 tablet by mouth every 6 hours as needed (dizziness). loratadine (CLARITIN) 10 mg tablet Take 1 tablet by mouth once daily. cholecalciferol, vitamin D3, (VITAMIN D3 ORAL) Take 2,000 Units by mouth once daily. albuterol HFA (PROVENTIL HFA, VENTOLIN HFA) 90 mcg/actuation inhaler 2 puffs 4 times daily as needed. albuterol (PROVENTIL) 2.5 mg /3 mL (0.083 %) nebulizer solution Use 3 mL via nebulizer one time only for 1 dose. Use over 5-15minutes. EPINEPHrine (EPIPEN) 0.3 mg/0.3 mL (1:1,000) auto-injector (Dr. Wadsworth) estradiol (ESTRA (more content not included)... [facility] 03-25-2023 Note HNO ID: [id number] Author: Argenis Baron RT(Kemar) Service: ? Author Type: Technologist Type: Progress Notes Filed: 03/25/2023 12:27 PM Note Text: Radiology Service Progress Note PATIENT NAME: Yadiel Florez DATE OF SERVICE: March 25, 2023 TIME: 12:27 PM PATIENT IDENTITY VERIFICATION COMPLETED USING TWO (2) IDENTIFIERS: Name and Date of confirmed by patient verbally. FALL SCREENING: Has the patient had 2 falls in the last year or 1 fall with injury or currently using an Ambulatory Assistive Device (Walker, Cane, Wheelchair, Crutches, etc.)? No PATIENT GENDER DATA: Female. status: : No status: NO. PATIENT RELEVANT IMPLANT DATA REVIEWED: Not Applicable RADIOLOGY DEPARTMENT: Ultrasound PERIPHERAL IV DATA: Not applicable SIGNED BY: RT Lindsay(Kemar) March 25, 2023 12:27 PM [facility] 03-25-2023 History of Present illness Narrative Radiology Service Progress Note PATIENT NAME: Yadiel Florez DATE OF SERVICE: March 25, 2023 TIME: 12:27 PM PATIENT IDENTITY VERIFICATION COMPLETED USING TWO (2) IDENTIFIERS: Name and Date of confirmed by patient verbally. FALL SCREENING: Has the patient had 2 falls in the last year or 1 fall with injury or currently using an Ambulatory Assistive Device (Walker, Cane, Wheelchair, Crutches, etc.)? No PATIENT GENDER DATA: Female. status: : No status: NO. PATIENT RELEVANT IMPLANT DATA REVIEWED: Not Applicable RADIOLOGY DEPARTMENT: Ultrasound PERIPHERAL IV DATA: Not applicable SIGNED BY: RT Lindsay(Kemar) March 25, 2023 12:27 PM documented in this encounter [facility] 03-23-2023 Note HNO ID: [id number] Author: Eveline Griffin MD, MD Service: ? Author Type: Physician Type: Progress Notes Filed: 03/24/2023 1:36 PM Note Text: Radiation Oncology - New Patient/Consult Note PATIENT NAME: Yadiel Florez PATIENT REQUESTING PROVIDER: Dr. Karen Bae DIAGNOSIS: Breast cancer involving left axillary nodes with unknown primary site. It's ER positive (> 90%, strong), RI positive (>90%, strong) and Her2 0. HPI: 67 year old female who presents with above diagnosis, for an opinion regarding the role of radiation therapy in the management of the patient's disease. Final recommendations will be communicated back to the requesting physician by way of the shared medical record, or letter to requesting physician via [place] mail. 67 year old woman who had an abnormal screening mammogram on 12/30/22. It showed a left axillary lymph node superior region seen on the mediolateral oblique view only. US of the left breast on 01/11/23 showed a 1.5 cm x 1.5 cm x 0.7 cm lymph node consistent with an enlarged lymph node and suspicious of malignancy. She had US guided biopsy of the left axillary node on 02/22/23 and it showed Metastatic carcinoma, consistent with breast primary. It's ER positive (> 90%, strong), RI positive (>90%, strong) and Her2 0. MRI breasts on 03/17/23 showed a 0.8 cm x 1.1 cm x 1.4 cm lobulated lesion in the left breast at 1 o'clock posterior depth resembling a pathological lymph node and suspicious of malignancy. Biopsy proven metastatic adenopathy was also noted in the left axilla. There are at least 4 additional level 1 lymph nodes that are abnormal in appearance. Two of these are deeper within the axilla than the node biopsied and two are somewhat more inferior to the node biopsied. There are two mildly prominent level 2 nodes which are suspicious for additional involvement. There are some small stippled areas of increased T2 signal and enhancement in the sternum. This could represent metastasis but is indeterminate. CT and/or bone scan would be recommended. ALLERGIES Allergen Reactions Apple Hives, Anaphylaxis Banana Hives, Anaphylaxis Carrot Hives, Anaphylaxis Pineapple Itching, Anaphylaxis Shellfish Derived Swelling, Anaphylaxis Food allergies--lip and tongue swelling (Dr. Wadsworth diagnosed and prescribes EpiPen) Shrimp and lobster the worst Amoxicillin Other: See Comments Yeast infection Current Outpatient Medications on File Prior to Visit Medication Sig anastrozole (ARIMIDEX) 1 mg tablet Take 1 tablet by mouth once daily. estradiol (ESTRACE) 0.01 % (0.1 mg/gram) vaginal cream Use 1 g vaginally two times a week. hydroCHLOROthiazide 12.5 mg capsule Take 1 capsule by mouth once daily. As directed citalopram (CELEXA) 40 mg tablet Take 1 tablet by mouth once daily. gabapentin (NEURONTIN) 100 mg capsule Take 1 capsule by mouth twice daily as needed for up to 180 days. In addition to taking 600 mg pill at bedtime gabapentin (NEURONTIN) 600 mg tablet Take 1 tablet by mouth daily at bedtime for 180 days. As directed isosorbide mononitrate ER (IMDUR) 60 mg 24 hr tablet SYMBICORT 160-4.5 mcg/actuation inhaler as needed. amLODIPine (NORVASC) 2.5 mg tablet Take 2.5 mg by mouth once daily. azelastine 0.1% nasal spray as needed. losartan (COZAAR) 25 mg tablet Take 1 tablet by mouth once daily. pantoprazole DR (PROTONIX) 40 mg tablet Take 1 tablet by mouth daily before breakfast. Take on empty stomach, 1/2 hr before meal. montelukast (SINGULAIR) 10 mg tablet Take 1 tablet by mouth daily at bedtime. fluticasone (FLONASE) 50 mcg/actuation nasal spray Use 2 Sprays in each nostril once daily. Rinse mouth after use. (Patient taking differently: Use 2 Sprays in each nostril as needed. Rinse mouth after use.) atorvastatin (LIPITOR) 40 mg tablet Take 40 mg by mouth daily at bedtime. meclizine (ANTIVERT) 25 mg tab Take 1 tablet by mouth every 6 hours as needed (dizziness). metoprolol succinate ER (TOPROL XL) 50 mg 24 hr tablet Take 12.5 mg by mouth once daily. (Patient not taking: Reported on 08/23/2022) loratadine (CLARITIN) 10 mg tablet Take 1 tablet by mouth once daily. cholecalciferol, vitamin D3, (VITAMIN D3 ORAL) Take 2,000 Units by mouth once daily. albuterol HFA (PROVENTIL HFA, VENTOLIN HFA) 90 mcg/actuation inhaler 2 puffs 4 times daily as needed. albuterol (PROVENTIL) 2.5 mg /3 mL (0.083 %) nebulizer solution Use 3 mL via nebulizer one time only for 1 dose. Use over 5-15minutes. EPINEPHrine (EPIPEN) 0.3 mg/0.3 mL (1:1,000) auto-injector (Dr. Wadsworth) aspirin 81 mg chewable tablet Take 81 mg by mouth once daily. No current facility-administered medications on file prior to visit. PAST MEDICAL HISTORY Diagnosis Date Acute respiratory failure with hypoxia (HCC) 08/23/2022 Asthmatic bronchitis Bilateral sciatica Biliary colic Gallbladder attack. Cervical dysplasia age 31 DDD (degenerative disc disease), lum (more content not included)... [facility] 03-23-2023 History of Present illness Narrative Radiation Oncology - New Patient/Consult Note PATIENT NAME: Yadiel Florez PATIENT REQUESTING PROVIDER: Dr. Karen Bae DIAGNOSIS: Breast cancer involving left axillary nodes with unknown primary site. It's ER positive (> 90%, strong), RI positive (>90%, strong) and Her2 0. HPI: 67 year old female who presents with above diagnosis, for an opinion regarding the role of radiation therapy in the management of the patient's disease. Final recommendations will be communicated back to the requesting physician by way of the shared medical record, or letter to requesting physician via [place] mail. 67 year old woman who had an abnormal screening mammogram on 12/30/22. It showed a left axillary lymph node superior region seen on the mediolateral oblique view only. US of the left breast on 01/11/23 showed a 1.5 cm x 1.5 cm x 0.7 cm lymph node consistent with an enlarged lymph node and suspicious of malignancy. She had US guided biopsy of the left axillary node on 02/22/23 and it showed Metastatic carcinoma, consistent with breast primary. It's ER positive (> 90%, strong), RI positive (>90%, strong) and Her2 0. MRI breasts on 03/17/23 showed a 0.8 cm x 1.1 cm x 1.4 cm lobulated lesion in the left breast at 1 o'clock posterior depth resembling a pathological lymph node and suspicious of malignancy. Biopsy proven metastatic adenopathy was also noted in the left axilla. There are at least 4 additional level 1 lymph nodes that are abnormal in appearance. Two of these are deeper within the axilla than the node biopsied and two are somewhat more inferior to the node biopsied. There are two mildly prominent level 2 nodes which are suspicious for additional involvement. There are some small stippled areas of increased T2 signal and enhancement in the sternum. This could represent metastasis but is indeterminate. CT and/or bone scan would be recommended. ALLERGIES Allergen Reactions Apple Hives, Anaphylaxis Banana Hives, Anaphylaxis Carrot Hives, Anaphylaxis Pineapple Itching, Anaphylaxis Shellfish Derived Swelling, Anaphylaxis Food allergies--lip and tongue swelling (Dr. Wadsworth diagnosed and prescribes EpiPen) Shrimp and lobster the worst Amoxicillin Other: See Comments Yeast infection Current Outpatient Medications on File Prior to Visit Medication Sig anastrozole (ARIMIDEX) 1 mg tablet Take 1 tablet by mouth once daily. estradiol (ESTRACE) 0.01 % (0.1 mg/gram) vaginal cream Use 1 g vaginally two times a week. hydroCHLOROthiazide 12.5 mg capsule Take 1 capsule by mouth once daily. As directed citalopram (CELEXA) 40 mg tablet Take 1 tablet by mouth once daily. gabapentin (NEURONTIN) 100 mg capsule Take 1 capsule by mouth twice daily as needed for up to 180 days. In addition to taking 600 mg pill at bedtime gabapentin (NEURONTIN) 600 mg tablet Take 1 tablet by mouth daily at bedtime for 180 days. As directed isosorbide mononitrate ER (IMDUR) 60 mg 24 hr tablet SYMBICORT 160-4.5 mcg/actuation inhaler as needed. amLODIPine (NORVASC) 2.5 mg tablet Take 2.5 mg by mouth once daily. azelastine 0.1% nasal spray as needed. losartan (COZAAR) 25 mg tablet Take 1 tablet by mouth once daily. pantoprazole DR (PROTONIX) 40 mg tablet Take 1 tablet by mouth daily before breakfast. Take on empty stomach, 1/2 hr before meal. montelukast (SINGULAIR) 10 mg tablet Take 1 tablet by mouth daily at bedtime. fluticasone (FLONASE) 50 mcg/actuation nasal spray Use 2 Sprays in each nostril once daily. Rinse mouth after use. (Patient taking differently: Use 2 Sprays in each nostril as needed. Rinse mouth after use.) atorvastatin (LIPITOR) 40 mg tablet Take 40 mg by mouth daily at bedtime. meclizine (ANTIVERT) 25 mg tab Take 1 tablet by mouth every 6 hours as needed (dizziness). metoprolol succinate ER (TOPROL XL) 50 mg 24 hr tablet Take 12.5 mg by mouth once daily. (Patient not taking: Reported on 08/23/2022) loratadine (CLARITIN) 10 mg tablet Take 1 tablet by mouth once daily. cholecalciferol, vitamin D3, (VITAMIN D3 ORAL) Take 2,000 Units by mouth once daily. albuterol HFA (PROVENTIL HFA, VENTOLIN HFA) 90 mcg/actuation inhaler 2 puffs 4 times daily as needed. albuterol (PROVENTIL) 2.5 mg /3 mL (0.083 %) nebulizer solution Use 3 mL via nebulizer one time only for 1 dose. Use over 5-15minutes. EPINEPHrine (EPIPEN) 0.3 mg/0.3 mL (1:1,000) auto-injector (Dr. Wadsworth) aspirin 81 mg chewable tablet Take 81 mg by mouth once daily. No current facility-administered medications on file prior to visit. PAST MEDICAL HISTORY Diagnosis Date Acute respiratory failure with hypoxia (HCC) 08/23/2022 Asthmatic bronchitis Bilateral sciatica Biliary colic Gallbladder attack. Cervical dysplasia age 31 DDD (degenerative disc disease), lumbar Fibrocystic breast Fibromyalgia HTN (hypertension) Interstitial cystitis Obesity (BMI 35.0-39.9 without comorbidity) Seafood allergy, anaphylaxis Dr. Wadsworth Prior radiation therapy, collagen vascular disease, or inflammatory bowel disease: No Any implanted or external electric devices? No status: Post-menopausal. PAST SURGICAL HISTORY Procedure Laterality Date APPENDECTOMY BREAST BIOPSY ~1999 R breast BX BREAST PERC NEED W/GUID 05/26/2010 U/S needle core UOQ right breast BX OF BREAST; INCISIONAL 02/22/2023 left axilla [place] [facility] COLONOSCOPY FLX DX W/COLLJ SPEC WHEN PFRMD 05/18/2013 CRYO CAUTERY CERVIX 1987 EXCISION ROLLINS'S NEUROMA, SINGLE, EACH 1995 R foot NEUROPLASTY &/TRANSPOS MEDIAN NRV CARPAL TUNNE Right 1998 Carpal tunnel decomp TUBAL LIGATION, FAMILY HISTORY Problem Relation Age of Onset Heart Mother Enlarged Heart Ischemic Heart Disease Mother DVT Mother other (gallbladder) Mother Stroke Father Hypertension Father Diabetes Father Breast Cancer Sister Stage 2 Diabetes Brother Type 1 Stroke Brother Alcohol/Drug Brother Over-dose No Known Problems Daughter No Known Problems Daughter No Known Problems Son other (Bi-Polar) Son Breast Cancer Niece paternal niece dx age 42 No Ocular Disease No Family History Social History Tobacco Use Smoking status: Former Types: Cigarettes Quit date: 04/11/1993 Years since quittin.9 Smokeless tobacco: Never Vaping Use Vaping Use: Never used Substance Use Topics Alcohol use: Yes Comment: Rarely Drug use: No COMPLETE REVIEW OF SYSTEMS: GENERAL: feeling well without fatigue, no recent change in weight HEENT: denies [place], change in hearing or vision, no other ENT complaints NECK: denies swelling or pain in neck RESPIRATORY: h/o asthma CARDIOVASCULAR: no chest pain, no palpitations GI: h/o GERD : urination is normal MUSCULOSKELETAL: DJD of lumbar spine. bilateral sciatica. SKIN: no rash HEMATOLOGY/LYMPHOLOGY: negative for prolonged bleeding, no swollen lymph nodes NEURO: no numbness or paresthesias and no weakness of the extremities PHYSICAL EXAM: VS: BP 136/77 Pulse 60 Temp 36.2 C (97.1 F) (Temporal) LMP 07/15/2010 SpO2 99% KPS: 100 General Appearance: Alert and oriented. No acute distress. HEENT: NCAT. Sclera anicteric. EOMI. Neck: Normal ROM. Chest: No respiratory distress. Breasts: There is no dominant mass, suspicious skin change or nipple discharge bilaterally. Abdomen: Soft. Nontender. Nondistended. Musculoskeletal: No edema. Normal ROM in extremities. Neuro: Speech fluent. Gait normal. No focal deficits. Skin: No rashes noted Lymphatics: Left axillary region feels full. Hematologic: No signs of active bleeding. RADIOLOGY/LABORATORY DATA: see HPI ASSESSMENT AND PLAN: 67 year old woman with breast cancer involving left axillary nodes with unknown primary site. It's ER positive (> 90%, strong), RI positive (>90%, strong) and Her2 0. I discussed local therapy. As she has several axillary nodes involved on MRI, she will benefit from radiation treatment whether she has mastectomy or just left axillary node dissection. I understand that Dr. Bae plans to get a second look US per MRI findings. She is scheduled to see Dr. Swain next week to discuss options of systemic therapy and staging scans. I talked to her about general indications, rationale, benefits and potential complications of radiation treatment. I answered all her questions. Thank you very much for allowing us to participate in her care. Signed by: Eveline Griffin MD cc: Ilya Monroe [address] [place] [address] Karen Bae 1 [facility] [id number] Heriberto Swain documented in this encounter [facility] 03-23-2023 Nurse Note Radiation Therapy - Nursing Note (Consult) PATIENT NAME: Yadiel Florez PATIENT March 23, 2023 [facility] [place]/LOCATION: [place] Chief Complaint: breast cancer Reason for visit: Consult. Referring physician: Internal provider Dr Bae Subjective Data: no complaints Additional Data Do you want to see a Branch Service Associate? No Are you interested in information about fertility? No Status: Post-menopausal Stress Scale: On a scale of 0 to 10, what number best describes how much distress you have experienced in the past week?(0 being no distress and 10 being extreme distress) 8 Social work notified: Pt denied need to see social media strategist at this time. SIGNED by: Jami Sanchez RN documented in this encounter [facility] 03-21-2023 Miscellaneous Notes Summary: Nurse Navigation Call placed to patient for navigation. Verified name and date of . Patient has some questions about her MRI. Answered patients questions. Encouraged patient to call with questions or concerns. Seema Monique RN, BSN Met with patient on 03/09/2023 for 10 minutes in person to introduce self. documented in this encounter [facility] 03-18-2023 Miscellaneous Notes 3rd attempt to call patient again to notify her of results. answered. Informed him to have her call our office back. He states he will have her call back next week. Attempted to call patient again to notify her of results. answered. Informed him to have her call our office back. Called patient to provided providers results. No response. Left VM. Luh Richard LPN Please call patient to inform her that her circulation is normal Debora Roman DPM documented in this encounter [facility] 03-18-2023 Miscellaneous Notes Patient notified of breast MRI results. She needs a 2nd look ultrasound. Order placed. Please schedule. IMPRESSION: SUSPICIOUS FINDING - BIOPSY SHOULD BE CONSIDERED RIGHT BREAST: Normal right breast MRI. No suspicious mass or enhancement. LEFT BREAST: 1) The 0.8 cm x 1.1 cm x 1.4 cm lobulated lesion in the left breast at 1 o'clock posterior depth resembles a pathological lymph node and is suspicious of malignancy. A second look ultrasound is recommended. This is the only other finding of note within the left breast. This has the morphology of a lymph node. This has been present by mammogram for several years and has been relatively stable. It may be slightly more prominent than prior years. It is uncertain if this could represent a primary lesion or another metastatic node. If it would affect management, ultrasound and biopsy would be recommended. No other suspicious mass or enhancement is present in the left breast that would explain the axillary adenopathy. 2) Biopsy proven metastatic adenopathy in the left axilla. There are several nodes in addition to the biopsy nodes that are highly suspicious for additional involvement. OTHER: 1) There are some small stippled areas of increased T2 signal and enhancement in the sternum. This could represent metastasis but is indeterminate. CT and/or bone scan would be recommended. Titi Martin M.D. tab/:03/17/2023 14:13:32 Attending Technologist(s): Eve Malin, Mri [facility] Painter Decorator(s): RT Victor Hugo(R), Mri [facility] MRI BI-RADS: 4 Suspicious finding - Biopsy should be considered documented in this encounter [facility] 03-17-2023 Note HNO ID: [id number] Author: Eve Malin RT(R) Service: Radiology Author Type: Technologist Type: Progress Notes Filed: 03/17/2023 7:09 AM Note Text: Radiology Service Progress Note DATE OF SERVICE: March 17, 2023 TIME: 7:07 AM PATIENT IDENTITY VERIFICATION COMPLETED USING TWO (2) STANDARD IDENTIFIERS: Name and Date of confirmed by patient verbally and Name and Date of confirmed by identification band. FALL SCREENING: Has the patient had 2 falls in the last year or 1 fall with injury or currently using an Ambulatory Assistive Device (Walker, Cane, Wheelchair, Crutches, etc.)? No PATIENT GENDER DATA: Female. status: : No status: NO. PATIENT RELEVANT IMPLANT DATA REVIEWED: Yes ALLERGIES: Reviewed and unchanged CONTRAST ALLERGY: NO. EXAM: MRI - CONTRAST TYPE: GROUP II PERIPHERAL IV DATA: Ambulatory: A peripheral IV was started in the Left antecubital site with a Angio cath: 22 gauge. RADIOLOGY DEPARTMENT: MR; Exam(s) Completed: Chest: Breast SIGNATURE: RT Angely(R) PATIENT NAME: Yadiel Florez DATE: March 17, 2023 TIME: 7:07 AM [facility] 03-17-2023 History of Present illness Narrative Radiology Service Progress Note DATE OF SERVICE: March 17, 2023 TIME: 7:07 AM PATIENT IDENTITY VERIFICATION COMPLETED USING TWO (2) STANDARD IDENTIFIERS: Name and Date of confirmed by patient verbally and Name and Date of confirmed by identification band. FALL SCREENING: Has the patient had 2 falls in the last year or 1 fall with injury or currently using an Ambulatory Assistive Device (Walker, Cane, Wheelchair, Crutches, etc.)? No PATIENT GENDER DATA: Female. status: : No status: NO. PATIENT RELEVANT IMPLANT DATA REVIEWED: Yes ALLERGIES: Reviewed and unchanged CONTRAST ALLERGY: NO. EXAM: MRI - CONTRAST TYPE: GROUP II PERIPHERAL IV DATA: Ambulatory: A peripheral IV was started in the Left antecubital site with a Angio cath: 22 gauge. RADIOLOGY DEPARTMENT: MR; Exam(s) Completed: Chest: Breast SIGNATURE: RT Angely(R) PATIENT NAME: Yadiel Florez DATE: March 17, 2023 TIME: 7:07 AM documented in this encounter [facility] 03-16-2023 Miscellaneous Notes 2ND ATTEMPT: LM 1st attempt: LM May schedule with Dr Griffin at pt convenience. Please schedule with Dr. Swain as well. Salome Newman LPN Please review and advise. Patient to see Medical Oncology and Radiation. Please contact patient to schedule both on same day. 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 Author Type: Physician Type: Progress Notes Filed: 03/09/2023 3:29 PM Note Text: Karen Bae MD [place] [id number] HPI: Yadiel Florez is a 67 year old Black female who presents for an evaluation of abnormal Left Breast Axillary Lymph Node Biopsy done on 02/22/23 showing metastasis of primary breast carcinoma to the axillary lymph node of the left breast. This was seen on the prior mammogram. Consultation requested by Dr. Knox for an opinion regarding further management and treatment of metastatic breast cancer. My final recommendations will be communicated back to the requesting physician by way of shared medical record or letter via US mail. Patient presents to the clinic after receiving abnormal L breast axillary lymph node biopsy. She is doing well today. Denies breast pain, nipple discharge, discoloration, dimpling of breast or nipple, or lumps/masses of the breast. Patient has Hx of fibrocystic breast changes since 1974, prediabetes, HTN, and fibromyalgia. She states she has had multiple previous breast surgeries in the for cyst removal bilaterally as well as a L breast duct removal. She also notes family history of breast cancer in her sister (diagnosed in her 50's, different father from patient) as well as paternal niece (diagnosed at age 42). Nursing Notes: Maritza Richard LPN 03/09/2023 1:22 PM Signed Yadiel Florez is a 67 year old female who presents to follow up for New Patient, post BX (Left axilla ), and Results (A. Lymph node, left axillary, biopsy:/- Metastatic carcinoma, consistent with breast primary) Pt denies breast pain, nipple drainage. Pt states the left breast near the areola area is wrinkled. Maritza Richard LPN No question data found. Obstetric History T4 L4 SAB0 IAB0 Ectopic0 Multiple0 Live Births0 Name of Baby 1: Not recorded Date: Not recorded GA: Not recorded Delivery: Not recorded Apgar1: Not recorded Apgar5: Not recorded Living: Not recorded Name of Baby 2: Not recorded Date: Not recorded GA: Not recorded Delivery: Not recorded Apgar1: Not recorded Apgar5: Not recorded Living: Not recorded Name of Baby 3: Not recorded Date: Not recorded GA: Not recorded Delivery: Not recorded Apgar1: Not recorded Apgar5: Not recorded Living: Not recorded Name of Baby 4: Not recorded Date: Not recorded GA: Not recorded Delivery: Not recorded Apgar1: Not recorded Apgar5: Not recorded Living: Not recorded PAST MEDICAL HISTORY Diagnosis Date Acute respiratory failure with hypoxia (HCC) 08/23/2022 Asthmatic bronchitis Bilateral sciatica Biliary colic Gallbladder attack. Cervical dysplasia age 31 DDD (degenerative disc disease), lumbar Fibrocystic breast Fibromyalgia HTN (hypertension) Interstitial cystitis Obesity (BMI 35.0-39.9 without comorbidity) Seafood allergy, anaphylaxis Dr. Wadsworth PAST SURGICAL HISTORY Procedure Laterality Date APPENDECTOMY BREAST BIOPSY ~1999 R breast BX BREAST PERC NEED W/GUID 05/26/2010 U/S needle core UOQ right breast BX OF BREAST; INCISIONAL 02/22/2023 left axilla [facility] COLONOSCOPY FLX DX W/COLLJ SPEC WHEN PFRMD 05/18/2013 [facility] CAUTERY CERVIX 1987 EXCISION ROLLINS'S NEUROMA, SINGLE, EACH 1995 R foot NEUROPLASTY AND/TRANSPOS MEDIAN NRV CARPAL TUNNE Right 1998 Carpal tunnel decomp TUBAL LIGATION, FAMILY HISTORY Problem Relation Age of Onset Heart Mother Enlarged Heart Ischemic Heart Disease Mother DVT Mother other (gallbladder) Mother Stroke Father Hypertension Father Diabetes Father Breast Cancer Sister Stage 2 Diabetes Brother Type 1 Stroke Brother Alcohol/Drug Brother Over-dose No Known Problems Daughter No Known Problems Daughter No Known Problems Son other (Bi-Polar) Son Breast Cancer Niece paternal niece dx age 42 No Ocular Disease No Family History CURRENT MEDICATIONS: estradiol (ESTRACE) 0.01 % (0.1 mg/gram) vaginal cream Use 1 g vaginally two times a week. hydroCHLOROthiazide 12.5 mg capsule Take 1 capsule by mouth once daily. As directed citalopram (CELEXA) 40 mg tablet Take 1 tablet by mouth once daily. gabapentin (NEURONTIN) 100 mg capsule Take 1 capsule by mouth twice daily as needed for up to 180 days. In addition to taking 600 mg pill at bedtime gabapentin (NEURONTIN) 600 mg tablet Take 1 tablet by mouth daily at bedtime for 180 days. As directed isosorbide mononitrate ER (IMDUR) 60 mg 24 hr tablet SYMBICORT 160-4.5 mcg/actuation inhaler as needed. amLODIPine (NORVASC) 2.5 mg tablet Take 2.5 mg by mouth once daily. azelastine 0.1% nasal spray as needed. losartan (COZAAR) 25 mg tablet Take 1 tablet by mouth once daily. pantoprazole DR (PROTONIX) 40 mg tablet Take 1 tablet by mouth daily before breakfast. Take on empty stomach, 1/2 hr before meal. susan (more content not included)... [facility] 03-09-2023 History of Present illness Narrative Images from the original note were not included. Karen Bae MD [facility] [address] [place] [address] HPI: Yadiel Florez is a 67 year old Black female who presents for an evaluation of abnormal Left Breast Axillary Lymph Node Biopsy done on 02/22/23 showing metastasis of primary breast carcinoma to the axillary lymph node of the left breast. This was seen on the prior mammogram. Consultation requested by Dr. Knox for an opinion regarding further management and treatment of metastatic breast cancer. My final recommendations will be communicated back to the requesting physician by way of shared medical record or letter via [place] mail. Patient presents to the clinic after receiving abnormal L breast axillary lymph node biopsy. She is doing well today. Denies breast pain, nipple discharge, discoloration, dimpling of breast or nipple, or lumps/masses of the breast. Patient has Hx of fibrocystic breast changes since 1974, prediabetes, HTN, and fibromyalgia. She states she has had multiple previous breast surgeries in the for cyst removal bilaterally as well as a L breast duct removal. She also notes family history of breast cancer in her sister (diagnosed in her 50's, different father from patient) as well as paternal niece (diagnosed at age 42). Nursing Notes: Maritza Richard LPN 03/09/2023 1:22 PM Signed Yadiel Florez is a 67 year old female who presents to follow up for New Patient, post BX (Left axilla ), and Results (A. Lymph node, left axillary, biopsy:/- Metastatic carcinoma, consistent with breast primary) Pt denies breast pain, nipple drainage. Pt states the left breast near the areola area is wrinkled. Maritza Richard LPN No question data found. Obstetric History T4 L4 SAB0 IAB0 Ectopic0 Multiple0 Live Births0 Name of Baby 1: Not recorded Date: Not recorded GA: Not recorded Delivery: Not recorded Apgar1: Not recorded Apgar5: Not recorded Living: Not recorded Name of Baby 2: Not recorded Date: Not recorded GA: Not recorded Delivery: Not recorded Apgar1: Not recorded Apgar5: Not recorded Living: Not recorded Name of Baby 3: Not recorded Date: Not recorded GA: Not recorded Delivery: Not recorded Apgar1: Not recorded Apgar5: Not recorded Living: Not recorded Name of Baby 4: Not recorded Date: Not recorded GA: Not recorded Delivery: Not recorded Apgar1: Not recorded Apgar5: Not recorded Living: Not recorded PAST MEDICAL HISTORY Diagnosis Date Acute respiratory failure with hypoxia (HCC) 08/23/2022 Asthmatic bronchitis Bilateral sciatica Biliary colic Gallbladder attack. Cervical dysplasia age 31 DDD (degenerative disc disease), lumbar Fibrocystic breast Fibromyalgia HTN (hypertension) Interstitial cystitis Obesity (BMI 35.0-39.9 without comorbidity) Seafood allergy, anaphylaxis Dr. Wadsworth PAST SURGICAL HISTORY Procedure Laterality Date APPENDECTOMY BREAST BIOPSY ~1999 R breast BX BREAST PERC NEED W/GUID 05/26/2010 U/S needle core UOQ right breast BX OF BREAST; INCISIONAL 02/22/2023 left axilla [facility] COLONOSCOPY FLX DX W/COLLJ SPEC WHEN PFRMD 05/18/2013 [facility] CAUTERY CERVIX 1987 EXCISION ROLLINS'S NEUROMA, SINGLE, EACH 1995 R foot NEUROPLASTY &/TRANSPOS MEDIAN NRV CARPAL TUNNE Right 1998 Carpal tunnel decomp TUBAL LIGATION, FAMILY HISTORY Problem Relation Age of Onset Heart Mother Enlarged Heart Ischemic Heart Disease Mother DVT Mother other (gallbladder) Mother Stroke Father Hypertension Father Diabetes Father Breast Cancer Sister Stage 2 Diabetes Brother Type 1 Stroke Brother Alcohol/Drug Brother Over-dose No Known Problems Daughter No Known Problems Daughter No Known Problems Son other (Bi-Polar) Son Breast Cancer Niece paternal niece dx age 42 No Ocular Disease No Family History CURRENT MEDICATIONS: estradiol (ESTRACE) 0.01 % (0.1 mg/gram) vaginal cream Use 1 g vaginally two times a week. hydroCHLOROthiazide 12.5 mg capsule Take 1 capsule by mouth once daily. As directed citalopram (CELEXA) 40 mg tablet Take 1 tablet by mouth once daily. gabapentin (NEURONTIN) 100 mg capsule Take 1 capsule by mouth twice daily as needed for up to 180 days. In addition to taking 600 mg pill at bedtime gabapentin (NEURONTIN) 600 mg tablet Take 1 tablet by mouth daily at bedtime for 180 days. As directed isosorbide mononitrate ER (IMDUR) 60 mg 24 hr tablet SYMBICORT 160-4.5 mcg/actuation inhaler as needed. amLODIPine (NORVASC) 2.5 mg tablet Take 2.5 mg by mouth once daily. azelastine 0.1% nasal spray as needed. losartan (COZAAR) 25 mg tablet Take 1 tablet by mouth once daily. pantoprazole DR (PROTONIX) 40 mg tablet Take 1 tablet by mouth daily before breakfast. Take on empty stomach, 1/2 hr before meal. montelukast (SINGULAIR) 10 mg tablet Take 1 tablet by mouth daily at bedtime. fluticasone (FLONASE) 50 mcg/actuation nasal spray Use 2 Sprays in each nostril once daily. Rinse mouth after use. (Patient taking differently: Use 2 Sprays in each nostril as needed. Rinse mouth after use.) atorvastatin (LIPITOR) 40 mg tablet Take 40 mg by mouth daily at bedtime. meclizine (ANTIVERT) 25 mg tab Take 1 tablet by mouth every 6 hours as needed (dizziness). loratadine (CLARITIN) 10 mg tablet Take 1 tablet by mouth once daily. cholecalciferol, vitamin D3, (VITAMIN D3 ORAL) Take 2,000 Units by mouth once daily. albuterol HFA (PROVENTIL HFA, VENTOLIN HFA) 90 mcg/actuation inhaler 2 puffs 4 times daily as needed. albuterol (PROVENTIL) 2.5 mg /3 mL (0.083 %) nebulizer solution Use 3 mL via nebulizer one time only for 1 dose. Use over 5-15minutes. EPINEPHrine (EPIPEN) 0.3 mg/0.3 mL (1:1,000) auto-injector (Dr. Wadsworth) aspirin 81 mg chewable tablet Take 81 mg by mouth once daily. iv contrast (will be provided with radiology test) MRI Breast BRIANA Inject, intravenously, once for 1 dose. No IV access, insert saline lock prior to the beginning of sedation, infusion, injection of imaging exam. Discontinue saline lock post exam. If Pt has a central line or IVAD, may access for administration according to line specific nursing protocol. Once exam is complete flush line and de-access according to line specific nursing protocol in the MR contrast administration guidelines link anastrozole (ARIMIDEX) 1 mg tablet Take 1 tablet by mouth once daily. metoprolol succinate ER (TOPROL XL) 50 mg 24 hr tablet Take 12.5 mg by mouth once daily. (Patient not taking: Reported on 08/23/2022) CURRENT ALLERGIES: ALLERGIES Allergen Reactions Apple Hives, Anaphylaxis Banana Hives, Anaphylaxis Carrot Hives, Anaphylaxis Pineapple Itching, Anaphylaxis Shellfish Derived Swelling, Anaphylaxis Food allergies--lip and tongue swelling (Dr. Wadsworth diagnosed and prescribes EpiPen) Shrimp and lobster the worst Amoxicillin Other: See Comments Yeast infection Social History Tobacco Use Smoking status: Former Types: Cigarettes Quit date: 04/11/1993 Years since quittin.9 Smokeless tobacco: Never Vaping Use Vaping Use: Never used Substance Use Topics Alcohol use: Yes Comment: Rarely Drug use: No LABS AND IMAGING: IMPRESSION: ULTRASOUND GUIDED BIOPSY MALIGNANT Ultrasound guided biopsy of the lymph node in the left axilla with placement of a clip was successful with no apparent post procedure complications. Pathology indicates malignant 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s (MDN). Pathology results are concordant with mammography and ultrasound findings. SUMMARY: Pathology results are as follows: FINAL DIAGNOSIS A. Lymph node, left axillary, biopsy: - Metastatic carcinoma, consistent with breast primary, (see comment). Diagnosis Comment The specimen consists of cores of lymph node tissue containing an atypical epithelioid infiltrate. Immunohistochemical stains reveal the atypical cells to be positive for cytokeratin CAM5.2, GATA3 and E-cadherin. ER and RI immunostains were performed with results in a linked report. Flow cytometry (see separate report) showed no evidence of involvement by lymphoma. The overall findings are consistent with metastatic carcinoma from a breast primary. Studies for HER2 have been ordered and results will be in a linked report when available. The case was reviewed by Dr. Martinez Pryor who agrees with this assessment. As discussed with the patient, Dr. Knox will give her the biopsy results. Patient also has follow up scheduled with Dr. Bae on 03/09. Considering the imaging of the left breast has otherwise been negative to date, MRI is recommended for further evaluation. Review of Systems Constitutional: Negative for chills, fever and malaise/fatigue. HENT: Negative for hearing loss and sore throat. Eyes: Negative for blurred vision. Respiratory: Negative for cough, shortness of breath and wheezing. Cardiovascular: Negative for chest pain, palpitations and leg swelling. Gastrointestinal: Negative for abdominal pain, nausea and vomiting. Musculoskeletal: Positive for joint pain and myalgias. Neurological: Negative for dizziness, tingling, tremors, weakness and headaches. PHYSICAL EXAM: BP 147/84 Pulse 73 Ht 180.3 cm (5' 11 ) Wt 114.8 kg (253 lb) LMP 07/15/2010 BMI 35.29 kg/m General appearance: Well appearing, alert, in no acute distress Skin: skin color, texture, turgor normal, no suspicious rashes or lesions Eyes: Anicteric sclera, Pupils are equally round and reactive Abdomen: soft, non-tender, non-distended Extremities: No clubbing, cyanosis, or edema. Heart: Regular rate and rhythm Lungs: Clear to ascultation bilaterally Neuro: Alert and oriented times three Physical Exam Constitutional: General: She is not in acute distress. Appearance: Normal appearance. HENT: Head: Normocephalic and atraumatic. Cardiovascular: Rate and Rhythm: Normal rate and regular rhythm. Heart sounds: Normal heart sounds. Pulmonary: Effort: Pulmonary effort is normal. No respiratory distress. Breath sounds: Normal breath sounds. No stridor. No wheezing, rhonchi or rales. Chest: Chest wall: No mass, lacerations, deformity, swelling, tenderness or crepitus. Breasts: Breasts are symmetrical. Right: Normal. Left: No bleeding or inverted nipple. Comments: Thickened breast tissue measuring 4 cm at the 12 o'clock position about 5 cm from the nipple on the LEFT breast. Non-fixed axillary lymphadenopathy palpable. Musculoskeletal: General: Normal range of motion. Cervical back: Normal range of motion. Lymphadenopathy: Upper Body: Right upper body: No axillary adenopathy. Left upper body: Axillary adenopathy present. Skin: General: Skin is warm and dry. Neurological: Mental Status: She is alert and oriented to person, place, and time. Psychiatric: Mood and Affect: Mood normal. The mammogram and axillary lymph node biopsy was reviewed in detail. PATHOLOGY: Pathology reports from [facility] were reviewed and discussed with the Patient. Breast Biomarkers RESULTS: Estrogen Receptor (ER) Positive >90 % Stain intensity: strong Internal controls: absent External controls: appropriately stained Progesterone Receptor (RI) Positive >90 % Stain intensity: strong Internal controls: absent External controls: appropriately Breast Biomarkers (HER2 (ERBB2) by IHC) RESULTS: HER2 (ERBB2) IMMUNOHISTOCHEMISTRY ASSAY Interpretation: NEGATIVE for HER2 (ERBB2) Expression Score:0 Percentage of cells with uniform intense complete membrane staining: Not applicable (reported for 2+ and 3+ scores only) Specimen: [id number]; left axillary lymph node Block evaluated: A1 Tissue Analyzed: Metastatic carcinoma Tumor Grade: Breast Tumor Grade: Not applicable Specimen fixative: 10% neutral buffered formalin Length of fixation: >6 and <72 hours Cold ischemia time: 0 min(s) Latest ASCO/CAP guidelines for fixation met: yes Reference Ranges for HER2 (ERBB2) immunohistochemistry: Positive (3+): Complete, intense circumferential membrane staining in >10% of tumor cells Equivocal (2+): Weak to moderate complete membrane staining observed in >10% of tumor cells Negative (1+): Incomplete, faint membrane staining in >10% of tumor cells Negative (0): No staining or incomplete faint membrane staining in </= 10% of tumor cells Interpretation comments: Consideration of follow-up testing for HER2 (ERBB2) status by fluorescence in situ hybridization (FISH) for all equivocal (2+) results is recommended and will be ordered as a reflex test if FISH was not a testing methodology already employed. Plan IMPRESSION/PLAN: - Ordered MRI of LEFT breast to further analyze breast tissue for any primary malignancy - Bedside Ultrasound of LEFT breast was done of the area noted on physical exam as thickened tissue. Found abnormal thickening on ultrasound for which MRI will provide further clarification. Discussed this with the patient. - Medical Oncology Consultation for further medical management and imaging. - Radiation Oncology Consultation for further management as necessary. - Genetic testing Consultation as patient has family history of breast cancer in sister and paternal niece. - Vitamin D level ordered for Vitamin D deficiency - Discussed workup for breast mass as well as reviewed imaging and pathology with patient. Of note, patient would not like consultation with psychosocial services as she feels she has a strong support system at home. Will revisit if necessary. Patient would like to see oncology and get imaging done in [place]. MRI is scheduled for 03/17. Return to clinic that following Thursday 03/22. India Stearns, MS4 Breast Surgical Oncology DIAGNOSIS: Encounter Diagnosis ICD-10-CM 1. 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 Vitamin D deficiency E55.9 VITAMIN D 25 HYDROXY I saw and evaluated the patient. Discussed with the student and agree with student's findings and plan as documented in the student's note. Ms. Florez is a 67-year-old female with new diagnosis of carcinoma compatible with breast primary metastatic to ipsilateral left axillary lymph node. I am recommending bilateral breast MRI to rule out a primary cancer of the breast that is not visualized on recent mammography. This was ordered today. I have referred her to medical for consideration of metastatic work-up. I have also referred her to radiation oncology. Due to family history of breast cancer, she was referred to genetic services. The patient has a good support system and she declined psychosocial services referral. The patient would like her medical and oncology consults scheduled in [place]. Karen Bae MD This note was partially generated using [employer] voice recognition system, and there may be some incorrect words, spellings, and punctuation that were not noted in checking the note before saving. documented in this encounter [facility] 03-09-2023 Nurse Note Yadiel Florez is a 67 year old female who presents to follow up for New Patient, post BX (Left axilla ), and Results (A. Lymph node, left axillary, biopsy:/- Metastatic carcinoma, consistent with breast primary) Pt denies breast pain, nipple drainage. Pt states the left breast near the areola area is wrinkled. Maritza Richard LPN documented in this encounter [facility] 03-07-2023 Note HNO ID: [id number] Author: Madina Barrios, OD Service: ? Author Type: CHEMISTRY PHYSICS TEACHER Type: Progress Notes Filed: 03/07/2023 1:50 PM Note Text: 1. Combined forms of age-related cataract of right eye Not visually significant Will continue to monitor 2. Pseudophakia Doing well Quiet today (no iritis) 3. Asteroid hyalosis of right eye Monitor 4. Vitreous floaters of left eye Monitor Follow-up in 8 months for complete eye exam Madina Barrios, OD March 07, 2023 1:49 PM [facility] 02-28-2023 Note HNO ID: [id number] Author: Concetta Knox MD Service: ? Author Type: Physician Type: Progress Notes Filed: 03/02/2023 2:21 PM Note Text: Yadiel Florez 1955 REFERRING PHYSICIAN: Ilya Monroe MD CHIEF COMPLAINT: Follow Up (Left axilla stereotactic biopsy results) HPI: The patient is a 67 year old female presents with metastatic left lymph node breast cancer - unknown primary. She is s/p left axillary lymph node biopsy done on 02/22/2023 Findings of metastatic carcinoma consistent with breast primary, ER positive, RI positive, her 2 pending Patient notes no problems from procedure PAST MEDICAL HISTORY Diagnosis Date Acute respiratory failure with hypoxia (HCC) 08/23/2022 Asthmatic bronchitis Bilateral sciatica Biliary colic Gallbladder attack. Cervical dysplasia age 31 DDD (degenerative disc disease), lumbar Fibrocystic breast Fibromyalgia HTN (hypertension) Interstitial cystitis Obesity (BMI 35.0-39.9 without comorbidity) Seafood allergy, anaphylaxis Dr. Wadsworth PAST SURGICAL HISTORY Procedure Laterality Date APPENDECTOMY BREAST BIOPSY ~1999 R breast BX BREAST PERC NEED W/GUID 05/26/2010 U/S needle core UOQ right breast BX OF BREAST; INCISIONAL 02/22/2023 left axilla [facility] COLONOSCOPY FLX DX W/COLLJ SPEC WHEN PFRMD 05/18/2013 CRYO CAUTERY CERVIX 1987 EXCISION ROLLINS'S NEUROMA, SINGLE, EACH 1995 R foot NEUROPLASTY AND/TRANSPOS MEDIAN NRV CARPAL TUNNE Right 1998 Carpal tunnel decomp TUBAL LIGATION, Current Outpatient Medications Medication Sig estradiol (ESTRACE) 0.01 % (0.1 mg/gram) vaginal cream Use 1 g vaginally two times a week. hydroCHLOROthiazide 12.5 mg capsule Take 1 capsule by mouth once daily. As directed citalopram (CELEXA) 40 mg tablet Take 1 tablet by mouth once daily. gabapentin (NEURONTIN) 100 mg capsule Take 1 capsule by mouth twice daily as needed for up to 180 days. In addition to taking 600 mg pill at bedtime gabapentin (NEURONTIN) 600 mg tablet Take 1 tablet by mouth daily at bedtime for 180 days. As directed isosorbide mononitrate ER (IMDUR) 60 mg 24 hr tablet SYMBICORT 160-4.5 mcg/actuation inhaler as needed. amLODIPine (NORVASC) 2.5 mg tablet Take 2.5 mg by mouth once daily. azelastine 0.1% nasal spray as needed. losartan (COZAAR) 25 mg tablet Take 1 tablet by mouth once daily. pantoprazole DR (PROTONIX) 40 mg tablet Take 1 tablet by mouth daily before breakfast. Take on empty stomach, 1/2 hr before meal. montelukast (SINGULAIR) 10 mg tablet Take 1 tablet by mouth daily at bedtime. fluticasone (FLONASE) 50 mcg/actuation nasal spray Use 2 Sprays in each nostril once daily. Rinse mouth after use. (Patient taking differently: Use 2 Sprays in each nostril as needed. Rinse mouth after use.) atorvastatin (LIPITOR) 40 mg tablet Take 40 mg by mouth daily at bedtime. meclizine (ANTIVERT) 25 mg tab Take 1 tablet by mouth every 6 hours as needed (dizziness). loratadine (CLARITIN) 10 mg tablet Take 1 tablet by mouth once daily. cholecalciferol, vitamin D3, (VITAMIN D3 ORAL) Take 2,000 Units by mouth once daily. albuterol HFA (PROVENTIL HFA, VENTOLIN HFA) 90 mcg/actuation inhaler 2 puffs 4 times daily as needed. albuterol (PROVENTIL) 2.5 mg /3 mL (0.083 %) nebulizer solution Use 3 mL via nebulizer one time only for 1 dose. Use over 5-15minutes. EPINEPHrine (EPIPEN) 0.3 mg/0.3 mL (1:1,000) auto-injector (Dr. Wadsworth) aspirin 81 mg chewable tablet Take 81 mg by mouth once daily. metoprolol succinate ER (TOPROL XL) 50 mg 24 hr tablet Take 12.5 mg by mouth once daily. (Patient not taking: Reported on 08/23/2022) No current facility-administered medications for this visit. ALLERGIES: Apple, Banana, Carrot, Pineapple, Shellfish Derived, and Amoxicillin REVIEW OF SYSTEMS: Denies fevers PHYSICAL EXAMINATION: General: The patient is 67 year old female, well nourished, well hydrated in no acute distress. The patient is oriented to time, place, and person. VITALS: Blood pressure 170/62, pulse 75, temperature 36.4 ?C (97.5 ?F), height 180.3 cm (5' 11 ), weight 114.8 kg (253 lb), last menstrual period 07/15/2010, SpO2 97 %. Body mass index is 35.29 kg/m?. Head: Normal cephalic, atraumatic Eyes: pupils are equally round, sclera are clear/anicteric Neck is supple with no tracheal deviation Respiratory: Normal respiratory excursion and pattern. Abdominal exam: benign Extremities: no clubbing, cyanosis or edema. Neuro: non focal Psych: normal mood Assessment IMPRESSION: left axillary lymph node positive for metastatic breast cancer, unknown location of primary PLAN: I have discussed the above with the patient. I have explained the pathology to her, etc. I will refer patient to [facility] Breast surgeons. The patient acknowledges the above. I have answered all questions to the patient?s satisfaction and the patient has no further questions. I have confirmed and edite (more content not included)... [facility] 02-28-2023 History of Present illness Narrative Yadiel Florez 1955 REFERRING PHYSICIAN: Ilya Monroe MD CHIEF COMPLAINT: Follow Up (Left axilla stereotactic biopsy results) HPI: The patient is a 67 year old female presents with metastatic left lymph node breast cancer - unknown primary. She is s/p left axillary lymph node biopsy done on 02/22/2023 Findings of metastatic carcinoma consistent with breast primary, ER positive, RI positive, her 2 pending Patient notes no problems from procedure PAST MEDICAL HISTORY Diagnosis Date Acute respiratory failure with hypoxia (HCC) 08/23/2022 Asthmatic bronchitis Bilateral sciatica Biliary colic Gallbladder attack. Cervical dysplasia age 31 DDD (degenerative disc disease), lumbar Fibrocystic breast Fibromyalgia HTN (hypertension) Interstitial cystitis Obesity (BMI 35.0-39.9 without comorbidity) Seafood allergy, anaphylaxis Dr. Wadsworth PAST SURGICAL HISTORY Procedure Laterality Date APPENDECTOMY BREAST BIOPSY ~1999 R breast BX BREAST PERC NEED W/GUID 05/26/2010 U/S needle core UOQ right breast BX OF BREAST; INCISIONAL 02/22/2023 left axilla [facility] [facility] COLONOSCOPY FLX DX W/COLLJ SPEC WHEN PFRMD 05/18/2013 CRYO CAUTERY CERVIX 1987 EXCISION ROLLINS'S NEUROMA, SINGLE, EACH 1995 R foot NEUROPLASTY &/TRANSPOS MEDIAN NRV CARPAL TUNNE Right 1998 Carpal tunnel decomp TUBAL LIGATION, Current Outpatient Medications Medication Sig estradiol (ESTRACE) 0.01 % (0.1 mg/gram) vaginal cream Use 1 g vaginally two times a week. hydroCHLOROthiazide 12.5 mg capsule Take 1 capsule by mouth once daily. As directed citalopram (CELEXA) 40 mg tablet Take 1 tablet by mouth once daily. gabapentin (NEURONTIN) 100 mg capsule Take 1 capsule by mouth twice daily as needed for up to 180 days. In addition to taking 600 mg pill at bedtime gabapentin (NEURONTIN) 600 mg tablet Take 1 tablet by mouth daily at bedtime for 180 days. As directed isosorbide mononitrate ER (IMDUR) 60 mg 24 hr tablet SYMBICORT 160-4.5 mcg/actuation inhaler as needed. amLODIPine (NORVASC) 2.5 mg tablet Take 2.5 mg by mouth once daily. azelastine 0.1% nasal spray as needed. losartan (COZAAR) 25 mg tablet Take 1 tablet by mouth once daily. pantoprazole DR (PROTONIX) 40 mg tablet Take 1 tablet by mouth daily before breakfast. Take on empty stomach, 1/2 hr before meal. montelukast (SINGULAIR) 10 mg tablet Take 1 tablet by mouth daily at bedtime. fluticasone (FLONASE) 50 mcg/actuation nasal spray Use 2 Sprays in each nostril once daily. Rinse mouth after use. (Patient taking differently: Use 2 Sprays in each nostril as needed. Rinse mouth after use.) atorvastatin (LIPITOR) 40 mg tablet Take 40 mg by mouth daily at bedtime. meclizine (ANTIVERT) 25 mg tab Take 1 tablet by mouth every 6 hours as needed (dizziness). loratadine (CLARITIN) 10 mg tablet Take 1 tablet by mouth once daily. cholecalciferol, vitamin D3, (VITAMIN D3 ORAL) Take 2,000 Units by mouth once daily. albuterol HFA (PROVENTIL HFA, VENTOLIN HFA) 90 mcg/actuation inhaler 2 puffs 4 times daily as needed. albuterol (PROVENTIL) 2.5 mg /3 mL (0.083 %) nebulizer solution Use 3 mL via nebulizer one time only for 1 dose. Use over 5-15minutes. EPINEPHrine (EPIPEN) 0.3 mg/0.3 mL (1:1,000) auto-injector (Dr. Wadsworth) aspirin 81 mg chewable tablet Take 81 mg by mouth once daily. metoprolol succinate ER (TOPROL XL) 50 mg 24 hr tablet Take 12.5 mg by mouth once daily. (Patient not taking: Reported on 08/23/2022) No current facility-administered medications for this visit. ALLERGIES: Apple, Banana, Carrot, Pineapple, Shellfish Derived, and Amoxicillin REVIEW OF SYSTEMS: Denies fevers PHYSICAL EXAMINATION: General: The patient is 67 year old female, well nourished, well hydrated in no acute distress. The patient is oriented to time, place, and person. VITALS: Blood pressure 170/62, pulse 75, temperature 36.4 C (97.5 F), height 180.3 cm (5' 11 ), weight 114.8 kg (253 lb), last menstrual period 07/15/2010, SpO2 97 %. Body mass index is 35.29 kg/m . Head: Normal cephalic, atraumatic Eyes: pupils are equally round, sclera are clear/anicteric Neck is supple with no tracheal deviation Respiratory: Normal respiratory excursion and pattern. Abdominal exam: benign Extremities: no clubbing, cyanosis or edema. Neuro: non focal Psych: normal mood Assessment IMPRESSION: left axillary lymph node positive for metastatic breast cancer, unknown location of primary PLAN: I have discussed the above with the patient. I have explained the pathology to her, etc. I will refer patient to [facility] Breast surgeons. The patient acknowledges the above. I have answered all questions to the patient s satisfaction and the patient has no further questions. I have confirmed and edited as necessary, the PFSH and ROS obtained by others. . Diagnoses: (C50.912, C77.3) 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) (HCC) (primary encounter diagnosis) I spent a total of 27 minutes on the date of the service which included preparing to see the patient with review of any pertinent laboratory studies/radiological imaging/medical records, [id number] patient care, obtaining oral medical history from the patient in this encounter, counseling and educating the patient/family/caregiver, and ordering and/or scheduling of medications/tests/procedures, and completing appropriate medical documentation. Concetta Knox MD documented in this encounter [facility] 02-22-2023 Note HNO ID: [id number] Author: Ronit Klein RT(R) Service: ? Author Type: Technologist Type: Progress Notes Filed: 02/22/2023 1:51 PM Note Text: Radiology Service Progress Note PATIENT NAME: Yadiel Florez DATE OF SERVICE: February 22, 2023 TIME: 1:40 PM PATIENT IDENTITY VERIFICATION COMPLETED USING TWO (2) IDENTIFIERS: Name and Date of confirmed by patient verbally. FALL SCREENING: Has the patient had 2 falls in the last year or 1 fall with injury or currently using an Ambulatory Assistive Device (Walker, Cane, Wheelchair, Crutches, etc.)? No PATIENT GENDER DATA: Female. status: : No status: NO. PATIENT RELEVANT IMPLANT DATA REVIEWED: Not Applicable RADIOLOGY DEPARTMENT: Mammography PERIPHERAL IV DATA: Not applicable SIGNED BY: RT Demario(R) February 22, 2023 1:40 PM [facility] 02-22-2023 Note HNO ID: [id number] Author: Argenis Baron RT(Kemar) Service: ? Author Type: Technologist Type: Progress Notes Filed: 02/22/2023 12:38 PM Note Text: Radiology Service Progress Note PATIENT NAME: Yadiel Florez DATE OF SERVICE: February 22, 2023 TIME: 12:38 PM PATIENT IDENTITY VERIFICATION COMPLETED USING TWO (2) IDENTIFIERS: Name and Date of confirmed by patient verbally. FALL SCREENING: Has the patient had 2 falls in the last year or 1 fall with injury or currently using an Ambulatory Assistive Device (Walker, Cane, Wheelchair, Crutches, etc.)? No PATIENT GENDER DATA: Female. status: : No status: NO. PATIENT RELEVANT IMPLANT DATA REVIEWED: Not Applicable RADIOLOGY DEPARTMENT: Biopsy PERIPHERAL IV DATA: Not applicable SIGNED BY: RT Lindsay(Kemar) February 22, 2023 12:38 PM [facility] 02-22-2023 History of Present illness Narrative Radiology Service Progress Note PATIENT NAME: Yadiel Florez DATE OF SERVICE: February 22, 2023 TIME: 12:38 PM PATIENT IDENTITY VERIFICATION COMPLETED USING TWO (2) IDENTIFIERS: Name and Date of confirmed by patient verbally. FALL SCREENING: Has the patient had 2 falls in the last year or 1 fall with injury or currently using an Ambulatory Assistive Device (Walker, Cane, Wheelchair, Crutches, etc.)? No PATIENT GENDER DATA: Female. status: : No status: NO. PATIENT RELEVANT IMPLANT DATA REVIEWED: Not Applicable RADIOLOGY DEPARTMENT: Biopsy PERIPHERAL IV DATA: Not applicable SIGNED BY: RT Lindsay(Kemar) February 22, 2023 12:38 PM Radiology Service Progress Note PATIENT NAME: Yadiel Florez DATE OF SERVICE: February 22, 2023 TIME: 1:40 PM PATIENT IDENTITY VERIFICATION COMPLETED USING TWO (2) IDENTIFIERS: Name and Date of confirmed by patient verbally. FALL SCREENING: Has the patient had 2 falls in the last year or 1 fall with injury or currently using an Ambulatory Assistive Device (Walker, Cane, Wheelchair, Crutches, etc.)? No PATIENT GENDER DATA: Female. status: : No status: NO. PATIENT RELEVANT IMPLANT DATA REVIEWED: Not Applicable RADIOLOGY DEPARTMENT: Mammography PERIPHERAL IV DATA: Not applicable SIGNED BY: RT Demario(R) February 22, 2023 1:40 PM documented in this encounter [facility] 01-31-2023 Miscellaneous Notes Pt was notified of the results. Pt verbalized understanding. Maira Mendes MA COVID-19, influenza A, and influenza B PCR test are negative. Continue supportive therapies as discussed during visit. Follow-up with PCP if symptoms are not improving. Ronny Anton APRN.CARRIER OPERATOR documented in this encounter [facility] 01-31-2023 Note HNO ID: [id number] Author: Raven Crane PA-C Service: ? Author Type: Physician Swage Tender Type: Progress Notes Filed: 01/31/2023 12:57 PM Note Text: 01/31/2023 Patient presents with: Cough: sore throat and right ear pain, chills x 4-5 days SUBJECTIVE: This is a 67 year old that is here today for Complaint(s) of cough and sore throat x 4-5 days. + right ear discomfort. PMH asthmatic bronchitis. No wheezing as of yet. + mild body aches per patient. Having nasal congestion and rhinorrhea. Denies [place], fever/chills, vomiting, diarrhea, SOB, chest pain, leg swelling, calf pain. Has tried OTC cold/flu medication. PAST MEDICAL HISTORY Diagnosis Date Acute respiratory failure with hypoxia (HCC) 08/23/2022 Asthmatic bronchitis Bilateral sciatica Biliary colic Gallbladder attack. Cervical dysplasia age 31 DDD (degenerative disc disease), lumbar Fibrocystic breast Fibromyalgia HTN (hypertension) Interstitial cystitis Obesity (BMI 35.0-39.9 without comorbidity) Seafood allergy, anaphylaxis Dr. Wadsworth ALLERGIES Apple, Banana, Carrot, Pineapple, Shellfish Derived, and Amoxicillin MEDICATIONS Current Outpatient Medications Medication Sig estradiol (ESTRACE) 0.01 % (0.1 mg/gram) vaginal cream Use 1 g vaginally two times a week. hydroCHLOROthiazide 12.5 mg capsule Take 1 capsule by mouth once daily. As directed citalopram (CELEXA) 40 mg tablet Take 1 tablet by mouth once daily. gabapentin (NEURONTIN) 100 mg capsule Take 1 capsule by mouth twice daily as needed for up to 180 days. In addition to taking 600 mg pill at bedtime gabapentin (NEURONTIN) 600 mg tablet Take 1 tablet by mouth daily at bedtime for 180 days. As directed isosorbide mononitrate ER (IMDUR) 60 mg 24 hr tablet SYMBICORT 160-4.5 mcg/actuation inhaler as needed. amLODIPine (NORVASC) 2.5 mg tablet Take 2.5 mg by mouth once daily. azelastine 0.1% nasal spray as needed. losartan (COZAAR) 25 mg tablet Take 1 tablet by mouth once daily. pantoprazole DR (PROTONIX) 40 mg tablet Take 1 tablet by mouth daily before breakfast. Take on empty stomach, 1/2 hr before meal. montelukast (SINGULAIR) 10 mg tablet Take 1 tablet by mouth daily at bedtime. fluticasone (FLONASE) 50 mcg/actuation nasal spray Use 2 Sprays in each nostril once daily. Rinse mouth after use. atorvastatin (LIPITOR) 40 mg tablet Take 40 mg by mouth daily at bedtime. meclizine (ANTIVERT) 25 mg tab Take 1 tablet by mouth every 6 hours as needed (dizziness). loratadine (CLARITIN) 10 mg tablet Take 1 tablet by mouth once daily. cholecalciferol, vitamin D3, (VITAMIN D3 ORAL) Take 2,000 Units by mouth once daily. albuterol HFA (PROVENTIL HFA, VENTOLIN HFA) 90 mcg/actuation inhaler 2 puffs 4 times daily as needed. EPINEPHrine (EPIPEN) 0.3 mg/0.3 mL (1:1,000) auto-injector (Dr. Wadsworth) aspirin 81 mg chewable tablet Take 81 mg by mouth once daily. metoprolol succinate ER (TOPROL XL) 50 mg 24 hr tablet Take 12.5 mg by mouth once daily. (Patient not taking: Reported on 08/23/2022) albuterol (PROVENTIL) 2.5 mg /3 mL (0.083 %) nebulizer solution Use 3 mL via nebulizer one time only for 1 dose. Use over 5-15minutes. No current facility-administered medications for this visit. SOCIAL HISTORY Social History Tobacco Use Smoking status: Former Types: Cigarettes Quit date: 04/11/1993 Years since quittin.8 Smokeless tobacco: Never Vaping Use Vaping Use: Never used Substance Use Topics Alcohol use: Yes Comment: Rarely Drug use: No REVIEW OF SYSTEMS See HPI OBJECTIVE: BP 144/82 Pulse 82 Temp 36.6 ?C (97.8 ?F) Resp 16 Wt 114.8 kg (253 lb) LMP 07/15/2010 SpO2 95% BMI 35.29 kg/m? APPEARANCE alert, in no acute distress, well-hydrated, well nourished. EYES PERRLA, conjunctiva and sclera normal. EARS External ears normal, canals clear. TMs normal BRIANA NOSE/SINUS Nares normal. Septum midline. Mucosa normal. No drainage or sinus tenderness. THROAT normal, no erythema NECK Supple, no adenopathy; HEART RRR with normal S1 and S2 LUNG clear to auscultation, No wheezing, rhonchi, rales. EXTREMITIES Extremities normal, No deformities, No skin discoloration, No edema, and Normal pulses bilaterally. No calf TTP. ASSESSMENT/PLAN: 1. Acute cough - ICD9: 786.2, ICD10: R05.1 Supportive care with fluids, rest. OTC cough/cold meds prn Offered tessalon -patient reports these do not work well for her, declines. Reviewed red flags and when to seek care sooner. F/u in 5-7 days if not improving, sooner if worsening. - COVID AND INFLUENZA A/B NAAT, ROUTINE The patient indicates understanding of these issues and agrees with the plan. Raven Crane PA-C [facility] 01-31-2023 History of Present illness Narrative 01/31/2023 Patient presents with: Cough: sore throat and right ear pain, chills x 4-5 days SUBJECTIVE: This is a 67 year old that is here today for Complaint(s) of cough and sore throat x 4-5 days. + right ear discomfort. PMH asthmatic bronchitis. No wheezing as of yet. + mild body aches per patient. Having nasal congestion and rhinorrhea. Denies [place], fever/chills, vomiting, diarrhea, SOB, chest pain, leg swelling, calf pain. Has tried OTC cold/flu medication. PAST MEDICAL HISTORY Diagnosis Date Acute respiratory failure with hypoxia (HCC) 08/23/2022 Asthmatic bronchitis Bilateral sciatica Biliary colic Gallbladder attack. Cervical dysplasia age 31 DDD (degenerative disc disease), lumbar Fibrocystic breast Fibromyalgia HTN (hypertension) Interstitial cystitis Obesity (BMI 35.0-39.9 without comorbidity) Seafood allergy, anaphylaxis Dr. Wadsworth ALLERGIES Apple, Banana, Carrot, Pineapple, Shellfish Derived, and Amoxicillin MEDICATIONS Current Outpatient Medications Medication Sig estradiol (ESTRACE) 0.01 % (0.1 mg/gram) vaginal cream Use 1 g vaginally two times a week. hydroCHLOROthiazide 12.5 mg capsule Take 1 capsule by mouth once daily. As directed citalopram (CELEXA) 40 mg tablet Take 1 tablet by mouth once daily. gabapentin (NEURONTIN) 100 mg capsule Take 1 capsule by mouth twice daily as needed for up to 180 days. In addition to taking 600 mg pill at bedtime gabapentin (NEURONTIN) 600 mg tablet Take 1 tablet by mouth daily at bedtime for 180 days. As directed isosorbide mononitrate ER (IMDUR) 60 mg 24 hr tablet SYMBICORT 160-4.5 mcg/actuation inhaler as needed. amLODIPine (NORVASC) 2.5 mg tablet Take 2.5 mg by mouth once daily. azelastine 0.1% nasal spray as needed. losartan (COZAAR) 25 mg tablet Take 1 tablet by mouth once daily. pantoprazole DR (PROTONIX) 40 mg tablet Take 1 tablet by mouth daily before breakfast. Take on empty stomach, 1/2 hr before meal. montelukast (SINGULAIR) 10 mg tablet Take 1 tablet by mouth daily at bedtime. fluticasone (FLONASE) 50 mcg/actuation nasal spray Use 2 Sprays in each nostril once daily. Rinse mouth after use. atorvastatin (LIPITOR) 40 mg tablet Take 40 mg by mouth daily at bedtime. meclizine (ANTIVERT) 25 mg tab Take 1 tablet by mouth every 6 hours as needed (dizziness). loratadine (CLARITIN) 10 mg tablet Take 1 tablet by mouth once daily. cholecalciferol, vitamin D3, (VITAMIN D3 ORAL) Take 2,000 Units by mouth once daily. albuterol HFA (PROVENTIL HFA, VENTOLIN HFA) 90 mcg/actuation inhaler 2 puffs 4 times daily as needed. EPINEPHrine (EPIPEN) 0.3 mg/0.3 mL (1:1,000) auto-injector (Dr. Wadsworth) aspirin 81 mg chewable tablet Take 81 mg by mouth once daily. metoprolol succinate ER (TOPROL XL) 50 mg 24 hr tablet Take 12.5 mg by mouth once daily. (Patient not taking: Reported on 08/23/2022) albuterol (PROVENTIL) 2.5 mg /3 mL (0.083 %) nebulizer solution Use 3 mL via nebulizer one time only for 1 dose. Use over 5-15minutes. No current facility-administered medications for this visit. SOCIAL HISTORY Social History Tobacco Use Smoking status: Former Types: Cigarettes Quit date: 04/11/1993 Years since quittin.8 Smokeless tobacco: Never Vaping Use Vaping Use: Never used Substance Use Topics Alcohol use: Yes Comment: Rarely Drug use: No REVIEW OF SYSTEMS See HPI OBJECTIVE: BP 144/82 Pulse 82 Temp 36.6 C (97.8 F) Resp 16 Wt 114.8 kg (253 lb) LMP 07/15/2010 SpO2 95% BMI 35.29 kg/m APPEARANCE alert, in no acute distress, well-hydrated, well nourished. EYES PERRLA, conjunctiva and sclera normal. EARS External ears normal, canals clear. TMs normal BRIANA NOSE/SINUS Nares normal. Septum midline. Mucosa normal. No drainage or sinus tenderness. THROAT normal, no erythema NECK Supple, no adenopathy; HEART RRR with normal S1 and S2 LUNG clear to auscultation, No wheezing, rhonchi, rales. EXTREMITIES Extremities normal, No deformities, No skin discoloration, No edema, and Normal pulses bilaterally. No calf TTP. ASSESSMENT/PLAN: 1. Acute cough - ICD9: 786.2, ICD10: R05.1 Supportive care with fluids, rest. OTC cough/cold meds prn Offered tessalon -patient reports these do not work well for her, declines. Reviewed red flags and when to seek care sooner. F/u in 5-7 days if not improving, sooner if worsening. - COVID & INFLUENZA A/B NAAT, ROUTINE The patient indicates understanding of these issues and agrees with the plan. Raven Crane PA-C documented in this encounter [facility] 01-24-2023 Miscellaneous Notes Called patient back, patient stated already scheduled. Karen Caceres LPN Patient called requesting Dr Knox fax a referral over to [facility] at [phone] Please advise documented in this encounter [facility] 01-17-2023 Note HNO ID: [id number] Author: Concetta Knox MD Service: ? Author Type: Physician Type: Progress Notes Filed: 01/17/2023 12:11 PM Note Text: Yadiel Florez 1955 REFERRING PHYSICIAN: Self CHIEF COMPLAINT: Consult (Biopsy left breast and axilla) HPI: The patient is a 67 year old female with presents with findings of left axillary adenopathy from breast screening radiographs US left axillary area - 1.5 cm lymph node, for which biopsy is recommended. Patient has noted lumps of breast for years . She denies nipple discharge. She denies breast pain. She has had bilateral open breast biopsies for cysts in past. She had a needle core breast biopsy of right breast by Dr. Evans in past. She notes that her sister had breast cancer; no ovarian cancer noted in [place]. Her gynecological history is as follows: menarche onset at age 15, , first at age 17, denies breast feeding, BCP use for < 1 y starting in late teens, menopause at age 53, denies HRT use She denies cigarettes use PAST MEDICAL HISTORY Diagnosis Date Acute respiratory failure with hypoxia (HCC) 08/23/2022 Asthmatic bronchitis Bilateral sciatica Biliary colic Gallbladder attack. Cervical dysplasia age 31 DDD (degenerative disc disease), lumbar Fibrocystic breast Fibromyalgia HTN (hypertension) Interstitial cystitis Obesity (BMI 35.0-39.9 without comorbidity) Seafood allergy, anaphylaxis Dr. Wadsworth PAST SURGICAL HISTORY Procedure Laterality Date APPENDECTOMY BREAST BIOPSY ~1999 R breast BX BREAST PERC NEED W/GUID 05/26/10 U/S needle core UOQ right breast COLONOSCOPY FLX DX W/COLLJ SPEC WHEN PFRMD 05-18-13 CRYO CAUTERY CERVIX 1987 EXCISION ROLLINS'S NEUROMA, SINGLE, EACH 1995 R foot NEUROPLASTY AND/TRANSPOS MEDIAN NRV CARPAL TUNNE Right 1998 Carpal tunnel decomp TUBAL LIGATION, Current Outpatient Medications Medication Sig estradiol (ESTRACE) 0.01 % (0.1 mg/gram) vaginal cream Use 1 g vaginally two times a week. hydroCHLOROthiazide 12.5 mg capsule Take 1 capsule by mouth once daily. As directed citalopram (CELEXA) 40 mg tablet Take 1 tablet by mouth once daily. gabapentin (NEURONTIN) 100 mg capsule Take 1 capsule by mouth twice daily as needed for up to 180 days. In addition to taking 600 mg pill at bedtime gabapentin (NEURONTIN) 600 mg tablet Take 1 tablet by mouth daily at bedtime for 180 days. As directed isosorbide mononitrate ER (IMDUR) 60 mg 24 hr tablet SYMBICORT 160-4.5 mcg/actuation inhaler as needed. amLODIPine (NORVASC) 2.5 mg tablet Take 2.5 mg by mouth once daily. azelastine 0.1% nasal spray as needed. losartan (COZAAR) 25 mg tablet Take 1 tablet by mouth once daily. pantoprazole DR (PROTONIX) 40 mg tablet Take 1 tablet by mouth daily before breakfast. Take on empty stomach, 1/2 hr before meal. montelukast (SINGULAIR) 10 mg tablet Take 1 tablet by mouth daily at bedtime. fluticasone (FLONASE) 50 mcg/actuation nasal spray Use 2 Sprays in each nostril once daily. Rinse mouth after use. atorvastatin (LIPITOR) 40 mg tablet Take 40 mg by mouth daily at bedtime. meclizine (ANTIVERT) 25 mg tab Take 1 tablet by mouth every 6 hours as needed (dizziness). loratadine (CLARITIN) 10 mg tablet Take 1 tablet by mouth once daily. cholecalciferol, vitamin D3, (VITAMIN D3 ORAL) Take 2,000 Units by mouth once daily. albuterol HFA (PROVENTIL HFA, VENTOLIN HFA) 90 mcg/actuation inhaler 2 puffs 4 times daily as needed. albuterol (PROVENTIL) 2.5 mg /3 mL (0.083 %) nebulizer solution Use 3 mL via nebulizer one time only for 1 dose. Use over 5-15minutes. EPINEPHrine (EPIPEN) 0.3 mg/0.3 mL (1:1,000) auto-injector (Dr. Wadsworth) aspirin 81 mg chewable tablet Take 81 mg by mouth once daily. metoprolol succinate ER (TOPROL XL) 50 mg 24 hr tablet Take 12.5 mg by mouth once daily. (Patient not taking: Reported on 08/23/2022) No current facility-administered medications for this visit. ALLERGIES: Apple, Banana, Carrot, Pineapple, Shellfish Derived, and Amoxicillin PERSONAL HISTORY: Social History Tobacco Use Smoking status: Former Types: Cigarettes Quit date: 04/11/1993 Years since quittin.7 Smokeless tobacco: Never Vaping Use Vaping Use: Never used Substance Use Topics Alcohol use: Yes Comment: Rarely Drug use: No FAMILY HISTORY Problem Relation Age of Onset Stroke Father Hypertension Father Diabetes Father Heart Mother Enlarged Heart Ischemic Heart Disease Mother DVT Mother other (gallbladder) Mother Breast Cancer Sister Stage 2 Diabetes Brother Type 1 Stroke Brother Alcohol/Drug Brother Over-dose No Known Problems Daughter No Known Problems Daughter No Known Problems Son other (Bi-Polar) Son No Ocular Disease No Family History The review of systems data was entered by the nurse and reviewed by nc Nursing Notes: Karen Caceres LPN 01/17/2023 11:08 AM Signed REVIEW OF SYSTEMS: Genera (more content not included)... [facility] 01-17-2023 History of Present illness Narrative Yadiel Florez 1955 REFERRING PHYSICIAN: Self CHIEF COMPLAINT: Consult (Biopsy left breast and axilla) HPI: The patient is a 67 year old female with presents with findings of left axillary adenopathy from breast screening radiographs US left axillary area - 1.5 cm lymph node, for which biopsy is recommended. Patient has noted lumps of breast for years . She denies nipple discharge. She denies breast pain. She has had bilateral open breast biopsies for cysts in past. She had a needle core breast biopsy of right breast by Dr. Evans in past. She notes that her sister had breast cancer; no ovarian cancer noted in [place]. Her gynecological history is as follows: menarche onset at age 15, , first at age 17, denies breast feeding, BCP use for < 1 y starting in late teens, menopause at age 53, denies HRT use She denies cigarettes use PAST MEDICAL HISTORY Diagnosis Date Acute respiratory failure with hypoxia (HCC) 08/23/2022 Asthmatic bronchitis Bilateral sciatica Biliary colic Gallbladder attack. Cervical dysplasia age 31 DDD (degenerative disc disease), lumbar Fibrocystic breast Fibromyalgia HTN (hypertension) Interstitial cystitis Obesity (BMI 35.0-39.9 without comorbidity) Seafood allergy, anaphylaxis Dr. Wadsworth PAST SURGICAL HISTORY Procedure Laterality Date APPENDECTOMY BREAST BIOPSY ~1999 R breast BX BREAST PERC NEED W/GUID 05/26/10 U/S needle core UOQ right breast COLONOSCOPY FLX DX W/COLLJ SPEC WHEN PFRMD 05-18-13 CRYO CAUTERY CERVIX 1987 EXCISION ROLLINS'S NEUROMA, SINGLE, EACH 1995 R foot NEUROPLASTY &/TRANSPOS MEDIAN NRV CARPAL TUNNE Right 1998 Carpal tunnel decomp TUBAL LIGATION, Current Outpatient Medications Medication Sig estradiol (ESTRACE) 0.01 % (0.1 mg/gram) vaginal cream Use 1 g vaginally two times a week. hydroCHLOROthiazide 12.5 mg capsule Take 1 capsule by mouth once daily. As directed citalopram (CELEXA) 40 mg tablet Take 1 tablet by mouth once daily. gabapentin (NEURONTIN) 100 mg capsule Take 1 capsule by mouth twice daily as needed for up to 180 days. In addition to taking 600 mg pill at bedtime gabapentin (NEURONTIN) 600 mg tablet Take 1 tablet by mouth daily at bedtime for 180 days. As directed isosorbide mononitrate ER (IMDUR) 60 mg 24 hr tablet SYMBICORT 160-4.5 mcg/actuation inhaler as needed. amLODIPine (NORVASC) 2.5 mg tablet Take 2.5 mg by mouth once daily. azelastine 0.1% nasal spray as needed. losartan (COZAAR) 25 mg tablet Take 1 tablet by mouth once daily. pantoprazole DR (PROTONIX) 40 mg tablet Take 1 tablet by mouth daily before breakfast. Take on empty stomach, 1/2 hr before meal. montelukast (SINGULAIR) 10 mg tablet Take 1 tablet by mouth daily at bedtime. fluticasone (FLONASE) 50 mcg/actuation nasal spray Use 2 Sprays in each nostril once daily. Rinse mouth after use. atorvastatin (LIPITOR) 40 mg tablet Take 40 mg by mouth daily at bedtime. meclizine (ANTIVERT) 25 mg tab Take 1 tablet by mouth every 6 hours as needed (dizziness). loratadine (CLARITIN) 10 mg tablet Take 1 tablet by mouth once daily. cholecalciferol, vitamin D3, (VITAMIN D3 ORAL) Take 2,000 Units by mouth once daily. albuterol HFA (PROVENTIL HFA, VENTOLIN HFA) 90 mcg/actuation inhaler 2 puffs 4 times daily as needed. albuterol (PROVENTIL) 2.5 mg /3 mL (0.083 %) nebulizer solution Use 3 mL via nebulizer one time only for 1 dose. Use over 5-15minutes. EPINEPHrine (EPIPEN) 0.3 mg/0.3 mL (1:1,000) auto-injector (Dr. Wadsworth) aspirin 81 mg chewable tablet Take 81 mg by mouth once daily. metoprolol succinate ER (TOPROL XL) 50 mg 24 hr tablet Take 12.5 mg by mouth once daily. (Patient not taking: Reported on 08/23/2022) No current facility-administered medications for this visit. ALLERGIES: Apple, Banana, Carrot, Pineapple, Shellfish Derived, and Amoxicillin PERSONAL HISTORY: Social History Tobacco Use Smoking status: Former Types: Cigarettes Quit date: 04/11/1993 Years since quittin.7 Smokeless tobacco: Never Vaping Use Vaping Use: Never used Substance Use Topics Alcohol use: Yes Comment: Rarely Drug use: No FAMILY HISTORY Problem Relation Age of Onset Stroke Father Hypertension Father Diabetes Father Heart Mother Enlarged Heart Ischemic Heart Disease Mother DVT Mother other (gallbladder) Mother Breast Cancer Sister Stage 2 Diabetes Brother Type 1 Stroke Brother Alcohol/Drug Brother Over-dose No Known Problems Daughter No Known Problems Daughter No Known Problems Son other (Bi-Polar) Son No Ocular Disease No Family History The review of systems data was entered by the nurse and reviewed by me Nursing Notes: Karen Caceres LPN 01/17/2023 11:08 AM Signed REVIEW OF SYSTEMS: General: The patient denies fatigue, notes weight loss, denies weight gain, denies feeling hot, and denies feelings of cold. Eyes: The patient denies glaucoma, notes eye injury/surgery, wears glasses or contacts. Ear/Nose/Throat: The patient notes allergies, denies hayfever, denies ear infections, and denies bloody noses. Cardiovascular: The patient denies chest pain, denies heart disease, notes high blood pressure,denies cardiac stent, denies prior heart attack, denies irregular heart beat, notes high cholesterol, denies poor circulation, denies heart failure, other cardiac issues, notes claudication, denies cold feet, denies peripheral arterial stent. Respiratory: The patient denies tuberculosis, denies pneumonia, denies frequent cough, denies pulmonary embolism, notes shortness of breath, and denies coughing up blood, asthma Gastrointestinal: The patient denies difficulty swallowing, notes acid reflux, denies ulcers, denies vomiting, denies jaundice/hepatitis, notes gallbladder problems, denies black or tarry stools, denies hemorrhoids, denies bleeding from rectum, notes diverticulitis, denies constipation, denies diarrhea, denies loss of stool control, and denies hernias. Kidney/Bladder: The patient denies kidney stones, denies urine infections, and denies bloody urine. Skin: The patient denies a history of skin cancer, denies bleeding/changing moles, and denies a history of skin rash. Neurologic: The patient denies a history of epilepsy/convulsions, notes headaches, denies head/spinal injuries, and denies stroke/TIA. Psychiatric: The patient denies psychiatric medications, notes depression, and denies voices, denies substance abuse. Endocrine: The patient denies thyroid disorders, notes diabetes, and denies hormonal problems. Hematologic: The patient denies a history of bruising, denies bleeding, and denies anemia, denies blood clots. Infections: The patient denies a history of measles and mumps, denies rheumatic fever, and denies sexually transmitted diseases. Musculoskeletal: The patient denies back pain/injury, notes back problems, notes sciatica, notes knee/foot trouble, denies arthritis, or denies gout. When was patient's last Mammogram screening? 2022 Last Colonoscopy: 2021 Dr Bernarda Caceres LPN PHYSICAL EXAMINATION: General: The patient is 67 year old female, well nourished, well hydrated in no acute distress. The patient is oriented to time, place, and person. VITALS: Blood pressure 152/82, pulse 80, temperature (!) 35.9 C (96.6 F), height 180.3 cm (5' 11 ), weight 115.2 kg (254 lb), last menstrual period 07/15/2010, SpO2 100 %. Body mass index is 35.43 kg/m . Head - Normocephalic. EOM intact with sclera clear and no icterus noted. Mouth with mucus membranes moist. Neck - supple with no jugular venous distention noted. Trachea is midline. No thyroid enlargement or thyroid nodules detected. No masses noted. Chest/breast - no asymmetry of breasts noted, no suspicious skin lesions noted, no nipple discharge and both nipples everted, no breast masses noted Lungs - clear to auscultation. Normal breath sounds. No rales/rhonchi/wheezing noted. No labored breathing noted, such as retractions. No cough heard. Heart - normal S1 and S2 auscultated. No rubs/clicks/murmurs noted. Regular rate. Abdomen - soft and benign. Difficult to determine if any masses or organomegaly due to body habitus. Extremities - no calf tenderness noted. No pitting edema noted. Skin - normal skin integrity. Lymph - no cervical adenopathy detected, no supraclavicular adenopathy detected, no axillary adenopathy detected Neurological - gait normal, no focal deficits noted Psych - calm and appropriate Assessment IMPRESSION: abnormal left axillary lymph node PLAN: I have discussed the above with the patient. I have recommended US guided left axillary lymph node biopsy I have explained the procedure to the patient. I have counseled the patient as to the risks of the procedure, including but not limited to: infection, bleeding, injury to any blood vessels/nerves, scar tissue,wound infections, complications of anesthesia, etc. - the patient understands. To be referred to [facility] imaging center I told patient that I would contact her for results of pathology The patient acknowledges the above. I have answered all questions to the patient s satisfaction and the patient has no further questions. I have confirmed and edited as necessary, the PFSH and ROS obtained by others. Diagnoses: (R92.8) Abnormal ultrasound of breast (primary encounter diagnosis) Return to Clinic: The patient will follow up as above. Medical Decision Making: Problems: Moderate: New problem with uncertain prognosis Data: Unique test result(s) reviewed: 1 Risk: Low: Low risk from testing/treatment Medical Decision Making Level: 3 - Low Concetta Knox MD documented in this encounter [facility] 01-17-2023 Nurse Note REVIEW OF SYSTEMS: General: The patient denies fatigue, notes weight loss, denies weight gain, denies feeling hot, and denies feelings of cold. Eyes: The patient denies glaucoma, notes eye injury/surgery, wears glasses or contacts. Ear/Nose/Throat: The patient notes allergies, denies hayfever, denies ear infections, and denies bloody noses. Cardiovascular: The patient denies chest pain, denies heart disease, notes high blood pressure,denies cardiac stent, denies prior heart attack, denies irregular heart beat, notes high cholesterol, denies poor circulation, denies heart failure, other cardiac issues, notes claudication, denies cold feet, denies peripheral arterial stent. Respiratory: The patient denies tuberculosis, denies pneumonia, denies frequent cough, denies pulmonary embolism, notes shortness of breath, and denies coughing up blood, asthma Gastrointestinal: The patient denies difficulty swallowing, notes acid reflux, denies ulcers, denies vomiting, denies jaundice/hepatitis, notes gallbladder problems, denies black or tarry stools, denies hemorrhoids, denies bleeding from rectum, notes diverticulitis, denies constipation, denies diarrhea, denies loss of stool control, and denies hernias. Kidney/Bladder: The patient denies kidney stones, denies urine infections, and denies bloody urine. Skin: The patient denies a history of skin cancer, denies bleeding/changing moles, and denies a history of skin rash. Neurologic: The patient denies a history of epilepsy/convulsions, notes headaches, denies head/spinal injuries, and denies stroke/TIA. Psychiatric: The patient denies psychiatric medications, notes depression, and denies voices, denies substance abuse. Endocrine: The patient denies thyroid disorders, notes diabetes, and denies hormonal problems. Hematologic: The patient denies a history of bruising, denies bleeding, and denies anemia, denies blood clots. Infections: The patient denies a history of measles and mumps, denies rheumatic fever, and denies sexually transmitted diseases. Musculoskeletal: The patient denies back pain/injury, notes back problems, notes sciatica, notes knee/foot trouble, denies arthritis, or denies gout. When was patient's last Mammogram screening? 2022 Last Colonoscopy: 2021 Dr Bernarda Caceres LPN documented in this encounter [facility] 01-11-2023 Note HNO ID: [id number] Author: Reina Loving RDMS Service: ? Author Type: Production Control Coordinating Clerk Type: Progress Notes Filed: 01/11/2023 10:32 AM Note Text: Radiology Service Progress Note PATIENT NAME: Yadiel Florez DATE OF SERVICE: January 11, 2023 TIME: 10:31 AM PATIENT IDENTITY VERIFICATION COMPLETED USING TWO (2) IDENTIFIERS: Name and Date of confirmed by patient verbally. FALL SCREENING: Has the patient had 2 falls in the last year or 1 fall with injury or currently using an Ambulatory Assistive Device (Walker, Cane, Wheelchair, Crutches, etc.)? No PATIENT GENDER DATA: Female. status: : No status: NO. PATIENT RELEVANT IMPLANT DATA REVIEWED: Not Applicable RADIOLOGY DEPARTMENT: Ultrasound PERIPHERAL IV DATA: Not applicable SIGNED BY: Reina Loving RDMS RVT January 11, 2023 10:31 AM [facility] 01-07-2023 Note HNO ID: [id number] Author: Debora Roman Service: ? Author Type: Physician Type: Progress Notes Filed: 01/07/2023 9:16 AM Note Text: Initial Podiatric Office Visit: Chief Complaint: This 67 year old female who presents with chief complaint:hammertoe of right 4th toe HPI Patient presents to clinic for evaluation of right foot She complains of painful corn to right 4th toe due to hammertoe She states this toe has been causing her pain for the past one month She has history of hammertoe correction in 1997 but unfortunately, the hammertoe has returned. PAIN EVALUATION 01/07/2023 0820 Pain Level: 9 Pain Location: Toe Description: Sharp;Throbbing Duration Amount of Time: 6 Duration Units: Weeks Frequency: Continuous Intervention/Comfort measure: Relaxation Hemoglobin A1C (%) Date Value 08/23/2022 5.5 05/27/2022 5.9 08/18/2021 5.6 06/20/2020 5.5 12/04/2019 5.7 05/29/2018 5.4 11/22/2017 5.4 Hemoglobin A1c (%) Date Value 05/24/2017 5.4 Hemoglobin A1C (POCT) (%) Date Value 05/24/2017 5.4 PCP: Ilya Monroe MD PAST MEDICAL HISTORY Diagnosis Date Acute respiratory failure with hypoxia (HCC) 08/23/2022 Asthmatic bronchitis Bilateral sciatica Biliary colic Gallbladder attack. Cervical dysplasia age 31 DDD (degenerative disc disease), lumbar Fibrocystic breast Fibromyalgia HTN (hypertension) Interstitial cystitis Obesity (BMI 35.0-39.9 without comorbidity) Seafood allergy, anaphylaxis Dr. Wadsworth Current Outpatient Medications Medication Sig estradiol (ESTRACE) 0.01 % (0.1 mg/gram) vaginal cream Use 1 g vaginally two times a week. hydroCHLOROthiazide 12.5 mg capsule Take 1 capsule by mouth once daily. As directed citalopram (CELEXA) 40 mg tablet Take 1 tablet by mouth once daily. gabapentin (NEURONTIN) 100 mg capsule Take 1 capsule by mouth twice daily as needed for up to 180 days. In addition to taking 600 mg pill at bedtime gabapentin (NEURONTIN) 600 mg tablet Take 1 tablet by mouth daily at bedtime for 180 days. As directed isosorbide mononitrate ER (IMDUR) 60 mg 24 hr tablet SYMBICORT 160-4.5 mcg/actuation inhaler as needed. amLODIPine (NORVASC) 2.5 mg tablet Take 2.5 mg by mouth once daily. azelastine 0.1% nasal spray as needed. losartan (COZAAR) 25 mg tablet Take 1 tablet by mouth once daily. pantoprazole DR (PROTONIX) 40 mg tablet Take 1 tablet by mouth daily before breakfast. Take on empty stomach, 1/2 hr before meal. montelukast (SINGULAIR) 10 mg tablet Take 1 tablet by mouth daily at bedtime. fluticasone (FLONASE) 50 mcg/actuation nasal spray Use 2 Sprays in each nostril once daily. Rinse mouth after use. atorvastatin (LIPITOR) 40 mg tablet Take 40 mg by mouth daily at bedtime. meclizine (ANTIVERT) 25 mg tab Take 1 tablet by mouth every 6 hours as needed (dizziness). loratadine (CLARITIN) 10 mg tablet Take 1 tablet by mouth once daily. cholecalciferol, vitamin D3, (VITAMIN D3 ORAL) Take 2,000 Units by mouth. albuterol HFA (PROVENTIL HFA, VENTOLIN HFA) 90 mcg/actuation inhaler 2 puffs 4 times daily as needed. albuterol (PROVENTIL) 2.5 mg /3 mL (0.083 %) nebulizer solution Use 3 mL via nebulizer one time only for 1 dose. Use over 5-15minutes. EPINEPHrine (EPIPEN) 0.3 mg/0.3 mL (1:1,000) auto-injector (Dr. Wadsworth) aspirin 81 mg chewable tablet Take 81 mg by mouth once daily. metoprolol succinate ER (TOPROL XL) 50 mg 24 hr tablet Take 12.5 mg by mouth once daily. (Patient not taking: Reported on 08/23/2022) No current facility-administered medications for this visit. ALLERGIES Allergen Reactions Apple Hives, Anaphylaxis Banana Hives, Anaphylaxis Carrot Hives, Anaphylaxis Pineapple Itching, Anaphylaxis Shellfish Derived Swelling, Anaphylaxis Food allergies--lip and tongue swelling (Dr. Wadsworth diagnosed and prescribes EpiPen) Shrimp and lobster the worst Amoxicillin Other: See Comments Yeast infection PAST SURGICAL HISTORY Procedure Laterality Date APPENDECTOMY BREAST BIOPSY ~1999 R breast BX BREAST PERC NEED W/GUID 05/26/10 U/S needle core UOQ right breast COLONOSCOPY FLX DX W/COLLJ SPEC WHEN PFRMD 05-18-13 CRYO CAUTERY CERVIX 1987 EXCISION ROLLINS'S NEUROMA, SINGLE, EACH 1995 R foot NEUROPLASTY AND/TRANSPOS MEDIAN NRV CARPAL TUNNE Right 1998 Carpal tunnel decomp TUBAL LIGATION, FAMILY HISTORY Problem Relation Age of Onset Stroke Father Hypertension Father Diabetes Father Heart Mother Enlarged Heart Ischemic Heart Disease Mother DVT Mother other (gallbladder) Mother Breast Cancer Sister Stage 2 Diabetes Brother Type 1 Stroke Brother Alcohol/Drug Brother Over-dose No Known Problems Daughter No Known Problems Daughter No Known Problems Son other (Bi-Polar) Son No Ocular Disease No Family History Social History Tobacco Use Smoking status: Former Types: Cigarettes Quit date: 04/11/1993 Years since quittin.7 Smo (more content not included)... [facility] 01-07-2023 Note HNO ID: [id number] Author: Peggy Shah Service: ? Author Type: ? Type: Progress Notes Filed: 01/07/2023 9:16 AM Note Text: AMB ROOMING INTAKE FLOWSHEET DATA Pain Pain Level: 9 Pain Location: Toe Description: Sharp, Throbbing Duration Amount of Time: 6 Duration Units: Weeks Frequency: Continuous Intervention/Comfort measure: Relaxation X-rays in November Peggy Shah MA [facility] 12-30-2022 Note HNO ID: [id number] Author: Derrick Franco Mammo Lana Service: ? Author Type: Technologist Type: Progress Notes Filed: 12/30/2022 1:32 PM Note Text: Radiology Service Progress Note PATIENT NAME: Yadiel Florez DATE OF SERVICE: December 30, 2022 TIME: 12:58 PM PATIENT IDENTITY VERIFICATION COMPLETED USING TWO (2) IDENTIFIERS: Name and Date of confirmed by patient verbally. FALL SCREENING: Has the patient had 2 falls in the last year or 1 fall with injury or currently using an Ambulatory Assistive Device (Walker, Cane, Wheelchair, Crutches, etc.)? No PATIENT GENDER DATA: Female. status: : No status: NO. PATIENT RELEVANT IMPLANT DATA REVIEWED: Not Applicable RADIOLOGY DEPARTMENT: Mammography PERIPHERAL IV DATA: Not applicable SIGNED BY: Derrick Franco Fix That Bug December 30, 2022 12:58 PM [facility] 12-20-2022 Note HNO ID: [id number] Author: Sowmya Beard PA-C Service: ? Author Type: Physician Swage Tender Type: Progress Notes Filed: 12/20/2022 8:46 AM Note Text: Sowmya Beard PA-C Department of Orthopaedics Orthopaedics [address] [facility] [address] Dept: [phone] Dept December 20, 2022 CHIEF COMPLAINT: Follow Up of the Right Hip and 6 weeks 5 days post visit Right hip pain Ms. Yadiel Florez is a 67 year old female who presents with continued right hip pain, pain today is a 9 out of 10 and dull, sharp, stabbing, aching in the right groin area, pain radiates down to the right knee. Patient recently had a prednisone taper, she did not find the taper to be very helpful, she was seen at [facility] urgent care over the weekend, she tells me that she was given some additional oral prednisone. Patient is unable to tolerate oral anti-inflammatories as they upset her stomach. ASSESSMENT: M16.11 Primary osteoarthritis of right hip (primary encounter diagnosis) M25.551 Pain of right hip PLAN: Patient would like to try an intra-articular right hip corticosteroid injection, order was faxed to [facility] for scheduling. If injection is not helpful we will get her into Dr. Berkowitz for further evaluation. Advised patient that injection can be repeated every 91 days. Ms. Yadiel Florez was advised as to contrast therapies and/or to take analgesics/anti-inflammatories as needed and all contraindications were reviewed. OBJECTIVE: Ms. Yadiel Florez is a pleasant 67 year old in no apparent distress. Gen:LMP 07/15/2010 nl development, obese, no deformities ENT: Normocephalic, normal hearing, moist mucosa CV: Pulses:DP/PT= 2+ and symmetric, capillary refill < 2 secs, no peripheral edema/varicosities Skin: no rash, bruising or lesions. Good turgor. Psych: cooperative and appropriate, alert and oriented x 3, good mood and affect. Musculoskeletal: HIP EXAM: Right: ROM: Extension: full extension Flexion: 110 degrees Internal Rotation: 20 degrees External Rotation: 30 degrees Abduction: 30 degrees Adduction: 30 degrees Strength: Pain with resisted hip flexion Palpation: Tenderness over right greater trochanter and ITB Log roll: non-painful. Straight leg raise: Negative Neurovascular Status: Sensation Intact, Moves foot and ankle up AND down, and 2+ dorsalis pedis Imaging: IMPRESSION: Moderate right hip osteoarthritis without acute osseous findings. No significant change. Administrative Assistant Receptionist: YESY Transcribe Date/Time: Nov 04 2022 3:52P Dictated by : PATSY LOPEZ MD This examination was interpreted and the report reviewed and electronically signed by: PATSY LOPEZ MD on Nov 04 2022 3:53PM EST Results-Findings * * *Final Report* * * DATE OF EXAM: Nov 03 2022 1:58PM [id number] - XR HIP 3V PELV+ AP/LAT RT / PROCEDURE REASON: Primary osteoarthritis of right hip * * * * Physician Interpretation * * * * EXAMINATION: XR HIP 3V PELV+ AP/LAT RT CLINICAL HISTORY: Right anterior hip pain x several months without injury. Pain radiates down her leg to her knee Primary osteoarthritis of right hip Technique: XR HIP 3V PELV+ AP/LAT RT -- RIGHT with 3 views on 3 images Comparison: 03/02/2021 RESULT: No fracture or dislocation. Moderate degenerative changes in the left hip with inferomedial joint space narrowing and marginal osteophytes. No erosions or chondrocalcinosis. SI joints and pubic symphysis are intact. Degenerative changes in the lower lumbar spine. Result History Supporting Subjective Information Below: Past Surgical History: PAST SURGICAL HISTORY Procedure Laterality Date APPENDECTOMY BREAST BIOPSY ~1999 R breast BX BREAST PERC NEED W/GUID 05/26/10 U/S needle core UOQ right breast COLONOSCOPY FLX DX W/COLLJ SPEC WHEN PFRMD 05-18-13 CRYO CAUTERY CERVIX 1987 EXCISION ROLLINS'S NEUROMA, SINGLE, EACH 1995 R foot NEUROPLASTY AND/TRANSPOS MEDIAN NRV CARPAL TUNNE Right 1998 Carpal tunnel decomp TUBAL LIGATION, Medications: Current Outpatient Medications Medication Sig estradiol (ESTRACE) 0.01 % (0.1 mg/gram) vaginal cream Use 1 g vaginally two times a week. hydroCHLOROthiazide 12.5 mg capsule Take 1 capsule by mouth once daily. As directed citalopram (CELEXA) 40 mg tablet Take 1 tablet by mouth once daily. gabapentin (NEURONTIN) 100 mg capsule Take 1 capsule by mouth twice daily as needed for up to 180 days. In addition to taking 600 mg pill at bedtime gabapentin (NEURONTIN) 600 mg tablet Take 1 tablet by mouth daily at bedtime for 180 days. As directed isosorbide mononitrate ER (IMDUR) 60 mg 24 hr tablet SYMBICORT 160-4.5 mcg/actuation inhaler as needed. amLODIPine (NORVASC) 2.5 mg tablet Take 2.5 mg by mouth once daily. azelastine 0.1% nasal spray as needed. losartan (COZAAR) 25 mg tablet Take 1 tablet by mouth once daily. pantoprazole D (more content not included)... [facility] 12-20-2022 Note HNO ID: [id number] Author: Concetta Haley Ma Service: ? Author Type: ? Type: Progress Notes Filed: 12/20/2022 8:46 AM Note Text: Patient presents with: Right Hip - Follow Up 6 weeks 5 days post visit Right hip pain AMB ROOMING INTAKE FLOWSHEET DATA Pain Pain Level: 9 Pain Location: Hip-Right Description: Dull, Aching, Sharp Duration Amount of Time: (Ongoing) Frequency: Continuous Intervention/Comfort measure: Medication Patient states Prednisone did not help. After she had finished it her hip pain returned. Patient states she had increased pain last week and went to [place] ED. They gave her Hydrocodone and has only been taking when needed. Patient would like an injection. with patient. [facility] 12-20-2022 History of Present illness Narrative Sowmya Beard PA-C Department of Orthopaedics Orthopaedics [address] [facility] [address] Dept: [phone] Dept December 20, 2022 CHIEF COMPLAINT: Follow Up of the Right Hip and 6 weeks 5 days post visit Right hip pain Ms. Yadiel Florez is a 67 year old female who presents with continued right hip pain, pain today is a 9 out of 10 and dull, sharp, stabbing, aching in the right groin area, pain radiates down to the right knee. Patient recently had a prednisone taper, she did not find the taper to be very helpful, she was seen at [facility] urgent care over the weekend, she tells me that she was given some additional oral prednisone. Patient is unable to tolerate oral anti-inflammatories as they upset her stomach. ASSESSMENT: M16.11 Primary osteoarthritis of right hip (primary encounter diagnosis) M25.551 Pain of right hip PLAN: Patient would like to try an intra-articular right hip corticosteroid injection, order was faxed to [facility] for scheduling. If injection is not helpful we will get her into Dr. Berkowitz for further evaluation. Advised patient that injection can be repeated every 91 days. Ms. Yadiel Florez was advised as to contrast therapies and/or to take analgesics/anti-inflammatories as needed and all contraindications were reviewed. OBJECTIVE: Ms. Yadiel Florez is a pleasant 67 year old in no apparent distress. Gen:LMP 07/15/2010 nl development, obese, no deformities ENT: Normocephalic, normal hearing, moist mucosa CV: Pulses:DP/PT= 2+ and symmetric, capillary refill < 2 secs, no peripheral edema/varicosities Skin: no rash, bruising or lesions. Good turgor. Psych: cooperative and appropriate, alert and oriented x 3, good mood and affect. Musculoskeletal: HIP EXAM: Right: ROM: Extension: full extension Flexion: 110 degrees Internal Rotation: 20 degrees External Rotation: 30 degrees Abduction: 30 degrees Adduction: 30 degrees Strength: Pain with resisted hip flexion Palpation: Tenderness over right greater trochanter and ITB Log roll: non-painful. Straight leg raise: Negative Neurovascular Status: Sensation Intact, Moves foot and ankle up & down, and 2+ dorsalis pedis Imaging: IMPRESSION: Moderate right hip osteoarthritis without acute osseous findings. No significant change. Administrative Assistant Receptionist: YESY Transcribe Date/Time: Nov 04 2022 3:52P Dictated by : PATSY LOPEZ MD This examination was interpreted and the report reviewed and electronically signed by: PATSY LOPEZ MD on Nov 04 2022 3:53PM EST Results-Findings * * *Final Report* * * DATE OF EXAM: Nov 03 2022 1:58PM [id number] - XR HIP 3V PELV+ AP/LAT RT / PROCEDURE REASON: Primary osteoarthritis of right hip * * * * Physician Interpretation * * * * EXAMINATION: XR HIP 3V PELV+ AP/LAT RT CLINICAL HISTORY: Right anterior hip pain x several months without injury. Pain radiates down her leg to her knee Primary osteoarthritis of right hip Technique: XR HIP 3V PELV+ AP/LAT RT -- RIGHT with 3 views on 3 images Comparison: 03/02/2021 RESULT: No fracture or dislocation. Moderate degenerative changes in the left hip with inferomedial joint space narrowing and marginal osteophytes. No erosions or chondrocalcinosis. SI joints and pubic symphysis are intact. Degenerative changes in the lower lumbar spine. Result History Supporting Subjective Information Below: Past Surgical History: PAST SURGICAL HISTORY Procedure Laterality Date APPENDECTOMY BREAST BIOPSY ~1999 R breast BX BREAST PERC NEED W/GUID 05/26/10 U/S needle core UOQ right breast COLONOSCOPY FLX DX W/COLLJ SPEC WHEN PFRMD 05-18-13 CRYO CAUTERY CERVIX 1987 EXCISION ROLLINS'S NEUROMA, SINGLE, EACH 1995 R foot NEUROPLASTY &/TRANSPOS MEDIAN NRV CARPAL TUNNE Right 1998 Carpal tunnel decomp TUBAL LIGATION, Medications: Current Outpatient Medications Medication Sig estradiol (ESTRACE) 0.01 % (0.1 mg/gram) vaginal cream Use 1 g vaginally two times a week. hydroCHLOROthiazide 12.5 mg capsule Take 1 capsule by mouth once daily. As directed citalopram (CELEXA) 40 mg tablet Take 1 tablet by mouth once daily. gabapentin (NEURONTIN) 100 mg capsule Take 1 capsule by mouth twice daily as needed for up to 180 days. In addition to taking 600 mg pill at bedtime gabapentin (NEURONTIN) 600 mg tablet Take 1 tablet by mouth daily at bedtime for 180 days. As directed isosorbide mononitrate ER (IMDUR) 60 mg 24 hr tablet SYMBICORT 160-4.5 mcg/actuation inhaler as needed. amLODIPine (NORVASC) 2.5 mg tablet Take 2.5 mg by mouth once daily. azelastine 0.1% nasal spray as needed. losartan (COZAAR) 25 mg tablet Take 1 tablet by mouth once daily. pantoprazole DR (PROTONIX) 40 mg tablet Take 1 tablet by mouth daily before breakfast. Take on empty stomach, 1/2 hr before meal. montelukast (SINGULAIR) 10 mg tablet Take 1 tablet by mouth daily at bedtime. fluticasone (FLONASE) 50 mcg/actuation nasal spray Use 2 Sprays in each nostril once daily. Rinse mouth after use. atorvastatin (LIPITOR) 40 mg tablet Take 40 mg by mouth daily at bedtime. meclizine (ANTIVERT) 25 mg tab Take 1 tablet by mouth every 6 hours as needed (dizziness). loratadine (CLARITIN) 10 mg tablet Take 1 tablet by mouth once daily. cholecalciferol, vitamin D3, (VITAMIN D3 ORAL) Take 2,000 Units by mouth. albuterol HFA (PROVENTIL HFA, VENTOLIN HFA) 90 mcg/actuation inhaler 2 puffs 4 times daily as needed. albuterol (PROVENTIL) 2.5 mg /3 mL (0.083 %) nebulizer solution Use 3 mL via nebulizer one time only for 1 dose. Use over 5-15minutes. EPINEPHrine (EPIPEN) 0.3 mg/0.3 mL (1:1,000) auto-injector (Dr. Wadsworth) aspirin 81 mg chewable tablet Take 81 mg by mouth once daily. metoprolol succinate ER (TOPROL XL) 50 mg 24 hr tablet Take 12.5 mg by mouth once daily. (Patient not taking: Reported on 08/23/2022) No current facility-administered medications for this visit. Allergies: Apple, Banana, Carrot, Pineapple, Shellfish Derived, and Amoxicillin ROS: General (negative for fatigue, malaise, weight loss/gain) HEENT (negative for headache, earache, recent vision changes, sinus pain, sore throat) Respiratory (no recent shortness of breath, hemoptysis) CV (negative for chest tightness, palpitations) Musculoskeletal (see HPI) Psych (no depression, anxiety) This note was partially generated using [employer] voice recognition system, and there may be some incorrect words, spellings, and punctuation that were not noted in checking the note before saving. Sowmya Beard PA-C Patient presents with: Right Hip - Follow Up 6 weeks 5 days post visit Right hip pain AMB ROOMING INTAKE FLOWSHEET DATA Pain Pain Level: 9 Pain Location: Hip-Right Description: Dull, Aching, Sharp Duration Amount of Time: (Ongoing) Frequency: Continuous Intervention/Comfort measure: Medication Patient states Prednisone did not help. After she had finished it her hip pain returned. Patient states she had increased pain last week and went to [place] ED. They gave her Hydrocodone and has only been taking when needed. Patient would like an injection. with patient. documented in this encounter [facility] 11-29-2022 Note HNO ID: [id number] Author: Tea Morton RT(R) Service: Radiology Author Type: Technologist Type: Progress Notes Filed: 11/29/2022 12:23 PM Note Text: Radiology Service Progress Note PATIENT NAME: Yadiel Florez DATE OF SERVICE: November 29, 2022 TIME: 12:11 PM PATIENT IDENTITY VERIFICATION COMPLETED USING TWO (2) IDENTIFIERS: Name and Date of confirmed by patient verbally. FALL SCREENING: Has the patient had 2 falls in the last year or 1 fall with injury or currently using an Ambulatory Assistive Device (Walker, Cane, Wheelchair, Crutches, etc.)? No PATIENT GENDER DATA: Female. status: : No status: NO. PATIENT RELEVANT IMPLANT DATA REVIEWED: Not Applicable RADIOLOGY DEPARTMENT: General X-ray: Exam(s) Completed: Lower Extremity X-Ray(s): Foot, Right and Wt. Bearing PERIPHERAL IV DATA: Not applicable SIGNED BY: RT Salvador(R) November 29, 2022 12:11 PM [facility] 11-29-2022 Note HNO ID: [id number] Author: Alfredo Luna MD Service: ? Author Type: Physician Type: Progress Notes Filed: 11/29/2022 1:29 PM Note Text: Patient presents with: Pain (foot): Right foot pain x 1 week HPI: Right foot pain: Duration: 1 week Location: distal mid right foot Character: aching, burning, sharp, and throbbing Radiation: some up the ankle Aggravating: standing and walking Relieving: Pain relievers: Took extra gabapentin. Unable to tolerate NSAIDs because of GI upset and ineffectiveness. Finished steroid taper from ortho for hip and knee pain 2 weeks ago (knee and hip feel much better). Associated: Pertinent negatives: Denies change in numbness, known injury PVR 2020 showed normal ankle brachial index and toe brachial index at rest in the right leg. MEDICATIONS: estradiol (ESTRACE) 0.01 % (0.1 mg/gram) vaginal cream Use 1 g vaginally two times a week. hydroCHLOROthiazide 12.5 mg capsule Take 1 capsule by mouth once daily. As directed citalopram (CELEXA) 40 mg tablet Take 1 tablet by mouth once daily. gabapentin (NEURONTIN) 100 mg capsule Take 1 capsule by mouth twice daily as needed for up to 180 days. In addition to taking 600 mg pill at bedtime gabapentin (NEURONTIN) 600 mg tablet Take 1 tablet by mouth daily at bedtime for 180 days. As directed isosorbide mononitrate ER (IMDUR) 60 mg 24 hr tablet SYMBICORT 160-4.5 mcg/actuation inhaler as needed. amLODIPine (NORVASC) 2.5 mg tablet Take 2.5 mg by mouth once daily. azelastine 0.1% nasal spray as needed. losartan (COZAAR) 25 mg tablet Take 1 tablet by mouth once daily. pantoprazole DR (PROTONIX) 40 mg tablet Take 1 tablet by mouth daily before breakfast. Take on empty stomach, 1/2 hr before meal. montelukast (SINGULAIR) 10 mg tablet Take 1 tablet by mouth daily at bedtime. fluticasone (FLONASE) 50 mcg/actuation nasal spray Use 2 Sprays in each nostril once daily. Rinse mouth after use. atorvastatin (LIPITOR) 40 mg tablet Take 40 mg by mouth daily at bedtime. meclizine (ANTIVERT) 25 mg tab Take 1 tablet by mouth every 6 hours as needed (dizziness). loratadine (CLARITIN) 10 mg tablet Take 1 tablet by mouth once daily. cholecalciferol, vitamin D3, (VITAMIN D3 ORAL) Take 2,000 Units by mouth. albuterol HFA (PROVENTIL HFA, VENTOLIN HFA) 90 mcg/actuation inhaler 2 puffs 4 times daily as needed. albuterol (PROVENTIL) 2.5 mg /3 mL (0.083 %) nebulizer solution Use 3 mL via nebulizer one time only for 1 dose. Use over 5-15minutes. EPINEPHrine (EPIPEN) 0.3 mg/0.3 mL (1:1,000) auto-injector (Dr. Wadsworth) aspirin 81 mg chewable tablet Take 81 mg by mouth once daily. metoprolol succinate ER (TOPROL XL) 50 mg 24 hr tablet Take 12.5 mg by mouth once daily. (Patient not taking: Reported on 08/23/2022) ALLERGIES: ALLERGIES Allergen Reactions Apple Hives, Anaphylaxis Banana Hives, Anaphylaxis Carrot Hives, Anaphylaxis Pineapple Itching, Anaphylaxis Shellfish Derived Swelling, Anaphylaxis Food allergies--lip and tongue swelling (Dr. Wadsworth diagnosed and prescribes EpiPen) Shrimp and lobster the worst Amoxicillin Other: See Comments Yeast infection VITALS: BP 130/80 Pulse 84 Temp 36.9 ?C (98.4 ?F) Resp 19 Wt 113.3 kg (249 lb 12.8 oz) LMP 07/15/2010 SpO2 96% BMI 34.35 kg/m? PE: Gen: pleasant, alert, uncomfortable FOOT/ANKLE: right . Swelling not present. No erythema, ecchymosis, or deformity. Range of motion: reports discomfort with ankle and toe ROM. painful to bear weight. Palpation: Medial malleolus uncomfortable, lateral malleolus uncomfortable, Dorsal midfoot - painful, Toes painful, posterior calcaneus non-painful. 2/4 dorsalis pedis pulse, 1/4 posterior tibial pulse. Normal pink nail beds and warm toes. ASSESSMENT/PLAN: 1. Foot pain, right - ICD9: 729.5, ICD10: M79.671 - XR FOOT GENERAL 3V AP/LAT/OBL RIGHT - no acute fracture or lytic lesion. Continue increased dose of gabapentin. Consider using cane. - PREDNISONE 10 MG TABLET 5 day taper. Keep follow up with podiatry. Alfredo Luna MD [facility] 11-19-2022 Miscellaneous Notes Patient notified. Lida Rice RN Please notify patient - The vaginal culture showed no abnormal bacteria or yeast. The itching and burning is most likely due to postmenopausal vaginitis as we discussed in the office. She should restart the vaginal estrogen cream. Ronit Kapoor APRN.CARRIER OPERATOR documented in this encounter [facility] 11-18-2022 Note HNO ID: [id number] Author: Ronit Kapoor APRN.CARRIER OPERATOR Service: ? Author Type: Nurse Practitioner Type: Progress Notes Filed: 11/18/2022 5:50 PM Note Text: Chief Lock Tender Operator offered: Patient declines. Yadiel Florez is a 67 year old female who presents for problem visit vaginal burning and itching. HPI: Vaginal itching and burning started yesterday. Ran out of vaginal Premarin cream a couple of months ago and did not call for a refill due to cost. Denies odor or change in discharge. No recent antibiotic use. Did take 10 days of oral prednisone. OB History T4 L4 SAB0 IAB0 Ectopic0 Multiple0 Live Births0 Pantographer History LMP: 07/15/2010, Postmenopausal Age at Menarche: Age at First : Age at Menopause: Pantographer History Comments: Sexual Activity: Not Asked; Male; Not asked Contraception: No contraception data on record PAST MEDICAL HISTORY Diagnosis Date Acute respiratory failure with hypoxia (HCC) 08/23/2022 Asthmatic bronchitis Bilateral sciatica Biliary colic Gallbladder attack. Cervical dysplasia age 31 DDD (degenerative disc disease), lumbar Fibrocystic breast Fibromyalgia HTN (hypertension) Interstitial cystitis Obesity (BMI 35.0-39.9 without comorbidity) Seafood allergy, anaphylaxis Dr. Wadsworth PAST SURGICAL HISTORY Procedure Laterality Date APPENDECTOMY BREAST BIOPSY ~1999 R breast BX BREAST PERC NEED W/GUID 05/26/10 U/S needle core UOQ right breast COLONOSCOPY FLX DX W/COLLJ SPEC WHEN PFRMD 05-18-13 CRYO CAUTERY CERVIX 1987 EXCISION ROLLINS'S NEUROMA, SINGLE, EACH 1995 R foot NEUROPLASTY AND/TRANSPOS MEDIAN NRV CARPAL TUNNE Right 1998 Carpal tunnel decomp TUBAL LIGATION, FAMILY HISTORY Problem Relation Age of Onset Stroke Father Hypertension Father Diabetes Father Heart Mother Enlarged Heart Ischemic Heart Disease Mother DVT Mother other (gallbladder) Mother Breast Cancer Sister Stage 2 Diabetes Brother Type 1 Stroke Brother Alcohol/Drug Brother Over-dose No Known Problems Daughter No Known Problems Daughter No Known Problems Son other (Bi-Polar) Son No Ocular Disease No Family History Social History Tobacco Use Smoking status: Former Types: Cigarettes Quit date: 04/11/1993 Years since quittin.6 Smokeless tobacco: Never Vaping Use Vaping Use: Never used Substance Use Topics Alcohol use: Yes Comment: Rarely Drug use: No Current Outpatient Medications Medication Sig hydroCHLOROthiazide 12.5 mg capsule Take 1 capsule by mouth once daily. As directed citalopram (CELEXA) 40 mg tablet Take 1 tablet by mouth once daily. gabapentin (NEURONTIN) 100 mg capsule Take 1 capsule by mouth twice daily as needed for up to 180 days. In addition to taking 600 mg pill at bedtime gabapentin (NEURONTIN) 600 mg tablet Take 1 tablet by mouth daily at bedtime for 180 days. As directed isosorbide mononitrate ER (IMDUR) 60 mg 24 hr tablet SYMBICORT 160-4.5 mcg/actuation inhaler as needed. amLODIPine (NORVASC) 2.5 mg tablet Take 2.5 mg by mouth once daily. azelastine 0.1% nasal spray as needed. losartan (COZAAR) 25 mg tablet Take 1 tablet by mouth once daily. pantoprazole DR (PROTONIX) 40 mg tablet Take 1 tablet by mouth daily before breakfast. Take on empty stomach, 1/2 hr before meal. montelukast (SINGULAIR) 10 mg tablet Take 1 tablet by mouth daily at bedtime. fluticasone (FLONASE) 50 mcg/actuation nasal spray Use 2 Sprays in each nostril once daily. Rinse mouth after use. atorvastatin (LIPITOR) 40 mg tablet Take 40 mg by mouth daily at bedtime. meclizine (ANTIVERT) 25 mg tab Take 1 tablet by mouth every 6 hours as needed (dizziness). loratadine (CLARITIN) 10 mg tablet Take 1 tablet by mouth once daily. cholecalciferol, vitamin D3, (VITAMIN D3 ORAL) Take 2,000 Units by mouth. albuterol HFA (PROVENTIL HFA, VENTOLIN HFA) 90 mcg/actuation inhaler 2 puffs 4 times daily as needed. albuterol (PROVENTIL) 2.5 mg /3 mL (0.083 %) nebulizer solution Use 3 mL via nebulizer one time only for 1 dose. Use over 5-15minutes. EPINEPHrine (EPIPEN) 0.3 mg/0.3 mL (1:1,000) auto-injector (Dr. Wadsworth) aspirin 81 mg chewable tablet Take 81 mg by mouth once daily. predniSONE (DELTASONE) 10 mg tablet 6 tabs po day 1 and 2, then 5 tabs day 3 and 4, 4 tabs day 5 and 6, 3 tabs day 7 and 8, 2 tabs day 9 and 10, 1 tab day 11 and 12. (Patient not taking: Reported on 11/18/2022) conjugated estrogens (PREMARIN) vaginal cream Use about pea-sized amount at urethral area as needed metoprolol succinate ER (TOPROL XL) 50 mg 24 hr tablet Take 12.5 mg by mouth once daily. (Patient not taking: Reported on 08/23/2022) No current facility-administered medications for this visit. Allergies As of Date: 11/18/2022 Allergen Noted Reaction APPLE 04/30/2017 Hives and Anaphylaxis BANANA 04/30/2017 Hives and Anaphylaxis CARROT 09/11/2017 Hives and Anaphylaxis PINEAPPLE 09/11/2017 Itching and Anaphylaxis (more content not included)... [facility] 11-18-2022 History of Present illness Narrative Chief Lock Tender Operator offered: Patient declines. Yadiel Florez is a 67 year old female who presents for problem visit vaginal burning and itching. HPI: Vaginal itching and burning started yesterday. Ran out of vaginal Premarin cream a couple of months ago and did not call for a refill due to cost. Denies odor or change in discharge. No recent antibiotic use. Did take 10 days of oral prednisone. OB History T4 L4 SAB0 IAB0 Ectopic0 Multiple0 Live Births0 Pantographer History LMP: 07/15/2010, Postmenopausal Age at Menarche: Age at First : Age at Menopause: Pantographer History Comments: Sexual Activity: Not Asked; Male; Not asked Contraception: No contraception data on record PAST MEDICAL HISTORY Diagnosis Date Acute respiratory failure with hypoxia (HCC) 08/23/2022 Asthmatic bronchitis Bilateral sciatica Biliary colic Gallbladder attack. Cervical dysplasia age 31 DDD (degenerative disc disease), lumbar Fibrocystic breast Fibromyalgia HTN (hypertension) Interstitial cystitis Obesity (BMI 35.0-39.9 without comorbidity) Seafood allergy, anaphylaxis Dr. Wadsworth PAST SURGICAL HISTORY Procedure Laterality Date APPENDECTOMY BREAST BIOPSY ~1999 R breast BX BREAST PERC NEED W/GUID 05/26/10 U/S needle core UOQ right breast COLONOSCOPY FLX DX W/COLLJ SPEC WHEN PFRMD 05-18-13 CRYO CAUTERY CERVIX 1987 EXCISION ROLLINS'S NEUROMA, SINGLE, EACH 1995 R foot NEUROPLASTY &/TRANSPOS MEDIAN NRV CARPAL TUNNE Right 1998 Carpal tunnel decomp TUBAL LIGATION, FAMILY HISTORY Problem Relation Age of Onset Stroke Father Hypertension Father Diabetes Father Heart Mother Enlarged Heart Ischemic Heart Disease Mother DVT Mother other (gallbladder) Mother Breast Cancer Sister Stage 2 Diabetes Brother Type 1 Stroke Brother Alcohol/Drug Brother Over-dose No Known Problems Daughter No Known Problems Daughter No Known Problems Son other (Bi-Polar) Son No Ocular Disease No Family History Social History Tobacco Use Smoking status: Former Types: Cigarettes Quit date: 04/11/1993 Years since quittin.6 Smokeless tobacco: Never Vaping Use Vaping Use: Never used Substance Use Topics Alcohol use: Yes Comment: Rarely Drug use: No Current Outpatient Medications Medication Sig hydroCHLOROthiazide 12.5 mg capsule Take 1 capsule by mouth once daily. As directed citalopram (CELEXA) 40 mg tablet Take 1 tablet by mouth once daily. gabapentin (NEURONTIN) 100 mg capsule Take 1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 Telephone Encounter - Taylor Powell LPN - 05/28/2022 9:05 AM EST No answer. Left message for patient to call office and ask to speak to a nurse regarding lab results. * Telephone Encounter - Adriana Joya APRN.PADMINI - 05/28/2022 7:56 AM EST Labs overall in acceptable range. At risk for type 2 DM. Would recommend avoiding sugar in diet, limit portion sizes of bread potatoes rice and pasta and exercise as able daily (walking or other) to help keep this in control. Component Latest Ref Rng & Units 05/27/2022 WBC 3.70 - 11.00 k/uL 4.66 RBC 3.90 - 5.20 m/uL 4.32 Hemoglobin 11.5 - 15.5 g/dL 13.6 Hematocrit 36.0 - 46.0 % 40.7 MCV 80.0 - 100.0 fL 94.2 MCH 26.0 - 34.0 pg 31.5 MCHC 30.5 - 36.0 g/dL 33.4 RDW-CV 11.5 - 15.0 % 11.9 Platelet Count 150 - 400 k/uL 157 MPV 9.0 - 12.7 fL 9.5 Neut% % 37.2 Abs Neut (ANC) 1.45 - 7.50 k/uL 1.73 Lymph% % 50.2 Abs Lymph 1.00 - 4.00 k/uL 2.34 [place]% % 9.4 Abs [place] <0.87 k/uL 0.44 Eosin% % 2.4 Abs Eosin <0.46 k/uL 0.11 Baso% % 0.6 Abs Baso <0.11 k/uL 0.03 Immature Gran % % 0.2 IMMATURE GRANS (ABS) <0.10 k/uL <0.03 NRBC /100 WBC 0.0 Absolute nRBC <0.01 k/uL <0.01 DTYPE Auto Protein, Total 6.3 - 8.0 g/dL 7.1 Albumin 3.9 - 4.9 g/dL 4.2 Calcium 8.5 - 10.2 mg/dL 9.6 Bilirubin, Total 0.2 - 1.3 mg/dL 0.6 Alkaline Phosphatase 34 - 123 U/L 78 AST 13 - 35 U/L 21 ALT 7 - 38 U/L 21 Glucose 74 - 99 mg/dL 139 (H) BUN 7 - 21 mg/dL 11 Creatinine 0.58 - 0.96 mg/dL 0.74 Sodium 136 - 144 mmol/L 140 Potassium 3.7 - 5.1 mmol/L 4.0 Chloride 97 - 105 mmol/L 103 CO2 22 - 30 mmol/L 26 Anion Gap 9 - 18 mmol/L 11 eGFR >=60 mL/min/1.73m 90 Total Cholesterol, Nonfasting <200 mg/dL 117 Triglycerides, Nonfasting <150 mg/dL 59 HDL Cholesterol, Nonfasting >39 mg/dL 44 LDL Cholesterol, Nonfasting <100 mg/dL 61 Non HDL Cholesterol, Nonfasting <130 mg/dL 73 VLDL Cholesterol, Nonfasting <30 mg/dL 12 Total Chol/HDL Ratio, Nonfasting <5.10 mg/dL 2.66 LDL/HDL Ratio, Nonfasting <2.54 mg/dL 1.39 Hemoglobin A1C 4.3 - 5.6 % 5.9 (H) Estimated Average Glucose mg/dL 123 Magnesium 1.7 - 2.3 mg/dL 1.8 documented in this encounterProtestant Hospital02-16-2023 NoteHNO ID: [id number] Author: Adriana Joya APRN.CNS Service: ? Author Type: Nurse Specialist Type: Progress Notes Filed: 05/27/2022 4:29 PM Note Text: SUBJECTIVE: HIV SCREENING Never done SHINGRIX VACCINE(2 of 3) due on 12/27/2016 BONE DENSITY due on 2021 ADVANCE DIRECTIVE DISCUSSION Never done HPI Yadiel Florez is a 66 year old female. PMH significant for ACTIVE PROBLEM LIST Hypertension Lumbar Disc Disease Depression Abnormal Mammogram Fibrocystic Breast Thrombosed External Hemorrhoid Seafood Allergy, Anaphylaxis Fibromyalgia Ddd (Degenerative Disc Disease), Lumbar Bilateral Sciatica Obesity (Bmi 35.0-39.9 Without Comorbidity) Acute Bilateral Low Back Pain Without Sciatica HPI excerpted from previous visits: Presents today for hospital discharge follow up she was seen at [facility] emergency department April 10. Admitted to [facility] for acute respiratory failure with hypoxia, hypokalemia pneumonia due to COVID-19 virus, hypoxemia hypertension and GERD. Noted to have multifocal pneumonia on CTA chest. Treated with dexamethasone at discharge. Unable to get antibiotic infusion due to not available. Notes [id number] recently Presents today for follow up visit feeling much improved Oxygen: 2L NC Pulse ox: 97-98% on 2L NC. Cough: much less; occasional Shortness of breath: some shortness of breath on exertion Home care: No Oral intake: Maintaining Mobility: Walking within the home, doing well Notes she is deep breathing 10 times per hour and walking around her home as she recovers and this is been helpful. PFT or pulmonology visit scheduled: Dr Martin; has follow up scheduled June. She notes bradycardia recently. Has cardiology visit next Tuesday. Her dose of metoprolol was decreased to 12.5 mg daily by [facility] physician. Presents for preoperative visit in internal medicine today. She has cataracts of both eyes and is scheduled for cataract removal and lens implant June 22, 2022 with Mylene Lezama MD at [facility]. She is in her usual state of health. Sees [facility] cardiology. She was seen May 06, 2022. Notes indicate she was initially seen at [facility] October 2015 after noting chest pain PCP EKG showed subtle ST and T wave changes. Work-up at that time was negative. She was later hospitalized at [facility] April 2021 with COVID-pneumonia. At that time she had bradycardia. Metoprolol dose was decreased to 12.5 mg daily. Heart catheterization was completed in 2021 and showed normal LV size wall motion and systolic function, left main normal, LAD with mild disease except for distal small caliber vessel distal at 75% stenosis, circumflex with mild luminal irregularities. Medical therapy was recommended. This was stable at her last visit. Next appointment is in August 2022. Currently notes she has made adjustments to her diet, decreasing intake and avoiding excess carbohydrates in her diet. She is walking daily for mile. She has had a 6 pound weight loss in the last month. Chest pain: no Shortness of breath on exertion: no Limited walking a flat surface by chest pain or shortness of breath: no Can take 2 flight of stairs without chest pain or shortness of breath: yes History of AR or CVA: no Independent in daily activities: yes Change in functional capacity: no ACS NSQIP Surgical Risk Calculator 1. Age Group: 65 - 74 years 2. Sex: female 3. Functional Status: Independent 4. Emergency Case: No 5. ASA Class: Mild systemic disease 6. Steroid use for chronic condition: No 7. Ascites within 30 days prior to surgery: No 8. Systemic Sepsis within 48 hours prior to surgery: None 9. Ventilator Dependent: No 10. Disseminated Cancer: No 11. Diabetes: None 12. Hypertension requiring medication: Yes 13. Congestive Heart Failure in 30 days prior to surgery: No 14. Dyspnea: No 15. Current Smoker within 1 Year: No 16. History of COPD: No, hsitory of asthma 17. Dialysis: No 18. Acute Renal Failure: No 19. BMI Class Calculation: Obese Last 14 Encounter BP Readings: Date: BP: 05/27/2022 128/76 05/05/2022 132/76 02/22/2022 136/76 12/11/2021 130/80 09/01/2021 132/80 08/17/2021 122/72 08/05/2021 120/78 05/08/2021 120/70 02/26/2021 110/72 01/29/2021 106/58[trubp average[ 01/20/2021 118/78 12/01/2020 132/78 10/10/2020 130/80 06/20/2020 138/72 Hyperlipidemia. Ms. Florez reports doing well on current therapy Her most recent lipid panels are: Cholesterol, Total (mg/dL) Date Value 12/04/2019 202 06/05/2019 171 HDL Cholesterol (mg/dL) Date Value 12/04/2019 54 06/05/2019 41 LDL Cholesterol (mg/dL) Date Value 12/04/2019 128 06/05/2019 108 Triglyceride (mg/dL) Date Value 12/04/2019 102 06/05/2019 108 GERD: controlled Depression: stable mood, no voiced SI, HI. Chronic back pain: stable, no alarm symptoms. Gabapentin help (more content not included)...[facility]02-16-2023 History of Present illness Narrative* Adriana Joya APRN.ELEMENTARY VOCAL MUSIC TEACHER - 05/27/2022 10:55 AM EST SUBJECTIVE: HIV SCREENING Never done SHINGRIX VACCINE(2 of 3) due on 12/27/2016 BONE DENSITY due on 2021 ADVANCE DIRECTIVE DISCUSSION Never done HPI Yadiel Florez is a 66 year old female. PMH significant for ACTIVE PROBLEM LIST Hypertension Lumbar Disc Disease Depression Abnormal Mammogram Fibrocystic Breast Thrombosed External Hemorrhoid Seafood Allergy, Anaphylaxis Fibromyalgia Ddd (Degenerative Disc Disease), Lumbar Bilateral Sciatica Obesity (Bmi 35.0-39.9 Without Comorbidity) Acute Bilateral Low Back Pain Without Sciatica HPI excerpted from previous visits: Presents today for hospital discharge follow up she was seen at [facility] emergency department April 10. Admitted to [facility] for acute respiratory failure with hypoxia, hypokalemiapneumonia due to COVID-19 virus, hypoxemia hypertension and GERD. Noted to have multifocal pneumonia on CTA chest. Treated with dexamethasone at discharge. Unable to get antibiotic infusion due to not available. Notes [id number] recently Presents today for follow up visit feeling much improved Oxygen: 2L NC Pulse ox: 97-98% on 2L NC. Cough: much less; occasional Shortness of breath: some shortness of breath on exertion Home care: No Oral intake: Maintaining Mobility: Walking within the home, doing well Notes she is deep breathing 10 times per hour and walking around her home as she recovers and this is been helpful. PFT or pulmonology visit scheduled: Dr Martin; has follow up scheduled June. She notes bradycardia recently. Has cardiology visit next Tuesday. Her dose of metoprolol was decreased to 12.5 mg daily by [facility] physician. Presents for preoperative visit in internal medicine today. She has cataracts of both eyes and is scheduled for cataract removal and lens implant June 22, 2022 with Mylene Lezama MD at [facility]. She is in her usual state of health. Sees [facility] cardiology. She was seen May 06, 2022. Notes indicate she was initially seen at [facility] October 2015 after noting chest pain PCP EKG showed subtle ST and T wave changes. Work-up at that time was negative. She was later hospitalized at [facility] April 2021 with COVID-pneumonia. At that time she had bradycardia. Metoprolol dose was decreased to 12.5 mg daily. Heart catheterization was completed in 2021 and showed normal LV size wall motion andsystolic function, left main normal, LAD with mild disease except for distal small caliber vessel distal at 75% stenosis, circumflex with mild luminal irregularities. Medical therapy was recommended. This was stable at her last visit. Next appointment is in August 2022. Currently notes she has made adjustments to her diet, decreasing intake and avoiding excess carbohydrates in her diet. She is walking daily for mile. She has had a 6 pound weight loss in the last month. Chest pain: no Shortness of breath on exertion: no Limited walking a flat surface by chest pain or shortness of breath: no Can take 2 flight of stairs without chest pain or shortness of breath: yes History of AR or CVA: no Independent in daily activities: yes Change in functional capacity: no ACS NSQIP Surgical Risk Calculator 1. Age Group: 65 - 74 years 2. Sex: female 3. Functional Status: Independent 4. Emergency Case: No 5. ASA Class: Mild systemic disease 6. Steroid use for chronic condition: No 7. Ascites within 30 days prior to surgery: No 8. Systemic Sepsis within 48 hours prior to surgery: None 9. Ventilator Dependent: No 10. Disseminated Cancer: No 11. Diabetes: None 12. Hypertension requiring medication: Yes 13. Congestive Heart Failure in 30 days prior to surgery: No 14. Dyspnea: No 15. Current Smoker within 1 Year: No 16. History of COPD: No, hsitory of asthma 17. Dialysis: No 18. Acute Renal Failure: No 19. BMI Class Calculation: Obese Last 14 Encounter BP Readings: Date: BP: 05/27/2022 128/76 05/05/2022 132/76 02/22/2022 136/76 12/11/2021 130/80 09/01/2021 132/80 08/17/2021 122/72 08/05/2021 120/78 05/08/2021 120/70 02/26/2021 110/72 01/29/2021 106/58[trubp average[ 01/20/2021 118/78 12/01/2020 132/78 10/10/2020 130/80 06/20/2020 138/72 Hyperlipidemia. Ms. Florez reports doing well on current therapy Her most recent lipid panels are: Cholesterol, Total (mg/dL) Date Value 12/04/2019 202 06/05/2019 171 HDL Cholesterol (mg/dL) Date Value 12/04/2019 54 06/05/2019 41 LDL Cholesterol (mg/dL) Date Value 12/04/2019 128 06/05/2019 108 Triglyceride (mg/dL) Date Value 12/04/2019 102 06/05/2019 108 GERD: controlled Depression: stable mood, no voiced SI, HI. Chronic back pain: stable, no alarm symptoms. Gabapentin helping. No AEs. Review of Systems Constitutional: Negative. Respiratory: Negative. Cardiovascular: Negative. Musculoskeletal: Negative for arthralgias and back pain. Objective BP 128/76 Pulse 60 Resp 16 Wt 112.5 kg (248 lb) LMP 07/15/2010 SpO2 97% BMI 33.63 kg/m Physical Exam Vitals and nursing note reviewed. Constitutional: Appearance: Normal appearance. HENT: Head: Normocephalic and atraumatic. Eyes: Conjunctiva/sclera: Conjunctivae normal. Neck: Thyroid: No thyromegaly. Vascular: Normal carotid pulses. No JVD. Cardiovascular: Rate and Rhythm: Normal rate and regular rhythm. Pulses: Normal pulses. Carotid pulses are 2+ on the right side and 2+ on the left side. Radial pulses are 2+ on the right side and 2+ on the left side. Heart sounds: Normal heart sounds. Pulmonary: Effort: Pulmonary effort is normal. Breath sounds: Normal breath sounds. Abdominal: General: Bowel sounds are normal. Palpations: Abdomen is soft. Skin: General: Skin is warm and dry. Neurological: General: No focal deficit present. Mental Status: She is alert and oriented to person, place, and time. ALLERGIES Allergen Reactions Apple Hives, Anaphylaxis Banana Hives, Anaphylaxis Carrot Hives, Anaphylaxis Pineapple Itching, Anaphylaxis Shellfish Derived Swelling, Anaphylaxis Food allergies--lip and tongue swelling (Dr. Wadsworth diagnosed and prescribes EpiPen) Shrimp and lobster the worst Amoxicillin Other: See Comments Yeast infection Medicatons pantoprazole DR (PROTONIX) 40 mg tablet Take 1 tablet by mouth daily before breakfast. Take on empty stomach, 1/2 hr before meal. montelukast (SINGULAIR) 10 mg tablet Take 1 tablet by mouth daily at bedtime. fluticasone (FLONASE) 50 mcg/actuation nasal spray Use 2 Sprays in each nostril once daily. Rinse mouth after use. gabapentin (NEURONTIN) 100 mg capsule Take 1 capsule by mouth twice daily as needed for up to 180 days. In addition to taking 600 mg pill at bedtime gabapentin (NEURONTIN) 600 mg tablet Take 1 tablet by mouth daily at bedtime for 180 days. As directed conjugated estrogens (PREMARIN) vaginal cream Use about pea-sized amount at urethral area as needed atorvastatin (LIPITOR) 40 mg tablet Take 40 mg by mouth daily at bedtime. citalopram (CELEXA) 40 mg tablet Take 1 tablet by mouth once daily. hydroCHLOROthiazide (HYDRODIURIL, ESIDRIX) 12.5 mg capsule Take 1 capsule by mouth once daily. As directed meclizine (ANTIVERT) 25 mg tab Take 1 tablet by mouth every 6 hours as needed (dizziness). losartan (COZAAR) 25 mg tablet Take 1 tablet by mouth once daily. metoprolol succinate ER (TOPROL XL) 50 mg 24 hr tablet Take 12.5 mg by mouth once daily. cholecalciferol, vitamin D3, (VITAMIN D3 ORAL) Take 2,000 Units by mouth. albuterol HFA (PROVENTIL HFA, VENTOLIN HFA) 90 mcg/actuation inhaler 2 puffs 4 times daily as needed. albuterol (PROVENTIL) 2.5 mg /3 mL (0.083 %) nebulizer solution Use 3 mL via nebulizer one time only for 1 dose. Use over 5-15minutes. EPINEPHrine (EPIPEN) 0.3 mg/0.3 mL (1:1,000) auto-injector (Dr. Wadsworth) aspirin 81 mg chewable tablet Take 81 mg by mouth once daily. benzonatate (TESSALON PERLES) 100 mg capsule Take 1 capsule by mouth three times daily as needed for cough. (Patient not taking: No sig reported) loratadine (CLARITIN) 10 mg tablet Take 1 tablet by mouth once daily. (Patient not taking: Reportedon 05/27/2022) PAST MEDICAL HISTORY Diagnosis Date Asthmatic bronchitis Bilateral sciatica Biliary colic Gallbladder attack. Cervical dysplasia age 31 DDD (degenerative disc disease), lumbar Fibrocystic breast Fibromyalgia HTN (hypertension) Interstitial cystitis Obesity (BMI 35.0-39.9 without comorbidity) Seafood allergy, anaphylaxis Dr. Wadsworth PAST SURGICAL HISTORY Procedure Laterality Date APPENDECTOMY BREAST BIOPSY ~1999 R breast BX BREAST PERC NEED W/GUID 05/26/10 U/S needle core UOQ right breast COLONOSCOPY FLX DX W/COLLJ SPEC WHEN PFRMD 05-18-13 CRYO CAUTERY CERVIX 1987 EXCISION ROLLINS'S NEUROMA, SINGLE, EACH 1995 R foot NEUROPLASTY &/TRANSPOS MEDIAN NRV CARPAL TUNNE Right 1998 Carpal tunnel decomp TUBAL LIGATION, Social History Tobacco Use Smoking status: Former Types: Cigarettes Quit date: 04/11/1993 Years since quittin.1 Smokeless tobacco: Never Vaping Use Vaping Use: Never used Substance Use Topics Alcohol use: Yes Comment: Rarely Drug use: No Component Latest Ref Rng & Units 08/18/2021 WBC 3.70 - 11.00 k/uL 4.49 RBC 3.90 - 5.20 m/uL 4.12 Hemoglobin 11.5 - 15.5 g/dL 13.0 Hematocrit 36.0 - 46.0 % 38.9 MCV 80.0 - 100.0 fL 94.4 MCH 26.0 - 34.0 pg 31.6 MCHC 30.5 - 36.0 g/dL 33.4 RDW-CV 11.5 - 15.0 % 11.9 Platelet Count 150 - 400 k/uL 195 MPV 9.0 - 12.7 fL 9.3 Absolute nRBC <0.01 k/uL <0.01 Glucose 74 - 99 mg/dL 88 BUN 7 - 21 mg/dL 13 Creatinine 0.58 - 0.96 mg/dL 0.77 Sodium 136 - 144 mmol/L 141 Potassium 3.7 - 5.1 mmol/L 3.8 Chloride 97 - 105 mmol/L 104 CO2 22 - 30 mmol/L 27 Anion Gap 9 - 18 mmol/L 10 Calcium 8.5 - 10.2 mg/dL 9.4 eGFR >=60 mL/min/1.73m 86 Hemoglobin A1C 4.3 - 5.6 % 5.6 Estimated Average Glucose mg/dL 114 Vitamin D 25 Hydroxy 31.0 - 80.0 ng/mL 54.3 Magnesium 1.7 - 2.3 mg/dL 1.7 TSH 0.270 - 4.200 mIU/L 1.050 Free T4 0.9 - 1.7 ng/dL 0.7 (L) ASSESSMENT/PLAN: 1. Pre-operative examination for internal medicine - ICD9: V72.83, ICD10: Z01.818 (primary diagnosis) Testing today per surgeon request. Medically stable, may proceed with eye surgery at surgeon discretion as planned. She is referred to her human resources services specialist regarding EKG, may want to discontinue metoprolol - COMP METABOLIC PANEL - CBC + DIFF - ECG COMPLETE -sinus bradycardia with 1st degree AV block, no ectopy or ischemic changes per my read 2. Cataract of both eyes, unspecified cataract type - ICD9: 366.9, ICD10: H26.9 3. Coronary artery disease involving [place] coronary artery of [place] heart without angina pectoris- ICD9: 414.01, ICD10: I25.10 - LIPID PANEL, NONFASTING 4. Encounter for screening for diabetes mellitus - ICD9: V77.1, ICD10: Z13.1 - HGB A1C 5. Gastroesophageal reflux disease, unspecified whether esophagitis present - ICD9: 530.81, ICD10: K21.9 - MAGNESIUM BLD Labs today instead of July. 6 mo follow up Ilya Monroe MD with labs Adriana Joya APRN.CNS Medical Decision Making: Data: Unique test(s) ordered: 3+ Risk: Moderate: Decision on minor surgery w/ risk factors Medical Decision Making Level: 4 - Moderate documented in this encounterProtestant Hospital01-25-2023 NoteHNO ID: [id number] Author: Alfredo Luna MD Service: ? Author Type: Physician Type: Progress Notes Filed: 05/05/2022 3:58 PM Note Text: Patient presents with: Low Back Pain: right side x 3 days, muscular HPI: Back pain: Duration: woke with pain 3 days ago Character: aching and throbbing, 9/10, feels swollen in her back Location: right lower back Radiation: lateral hip to anterior thigh/knee. Aggravating: bending, sitting, standing, and twisting Relieving: lying down Pain relievers: Tylenol, lidocaine patch, linament Associated: PHx of lumbar DDD and R>L hip degenerative changes Pertinent negatives: Denies known injury, numbness or weakness, fever, loss of bladder or bowel control. Imaging: XR R hip 03/02/21, XR lumbar spine 09/19/2018 Physical Therapy: after fall a few years ago Treated with prednisone about a week ago for asthma flare after the flu. PAST MEDICAL HISTORY Diagnosis Date Asthmatic bronchitis Bilateral sciatica Biliary colic Gallbladder attack. Cervical dysplasia age 31 DDD (degenerative disc disease), lumbar Fibrocystic breast Fibromyalgia HTN (hypertension) Interstitial cystitis Obesity (BMI 35.0-39.9 without comorbidity) Seafood allergy, anaphylaxis Dr. Wadsworth PAST SURGICAL HISTORY Procedure Laterality Date APPENDECTOMY BREAST BIOPSY ~1999 R breast BX BREAST PERC NEED W/GUID 05/26/10 U/S needle core UOQ right breast COLONOSCOPY FLX DX W/COLLJ SPEC WHEN PFRMD 05-18-13 CRYO CAUTERY CERVIX 1987 EXCISION ROLLINS'S NEUROMA, SINGLE, EACH 1995 R foot NEUROPLASTY AND/TRANSPOS MEDIAN NRV CARPAL TUNNE Right 1998 Carpal tunnel decomp TUBAL LIGATION, MEDICATIONS: pantoprazole DR (PROTONIX) 40 mg tablet Take 1 tablet by mouth daily before breakfast. Take on empty stomach, 1/2 hr before meal. montelukast (SINGULAIR) 10 mg tablet Take 1 tablet by mouth daily at bedtime. fluticasone (FLONASE) 50 mcg/actuation nasal spray Use 2 Sprays in each nostril once daily. Rinse mouth after use. gabapentin (NEURONTIN) 100 mg capsule Take 1 capsule by mouth twice daily as needed for up to 180 days. In addition to taking 600 mg pill at bedtime gabapentin (NEURONTIN) 600 mg tablet Take 1 tablet by mouth daily at bedtime for 180 days. As directed conjugated estrogens (PREMARIN) vaginal cream Use about pea-sized amount at urethral area as needed atorvastatin (LIPITOR) 40 mg tablet Take 40 mg by mouth daily at bedtime. citalopram (CELEXA) 40 mg tablet Take 1 tablet by mouth once daily. hydroCHLOROthiazide (HYDRODIURIL, ESIDRIX) 12.5 mg capsule Take 1 capsule by mouth once daily. As directed meclizine (ANTIVERT) 25 mg tab Take 1 tablet by mouth every 6 hours as needed (dizziness). losartan (COZAAR) 25 mg tablet Take 1 tablet by mouth once daily. metoprolol succinate ER (TOPROL XL) 50 mg 24 hr tablet Take 12.5 mg by mouth once daily. loratadine (CLARITIN) 10 mg tablet Take 1 tablet by mouth once daily. cholecalciferol, vitamin D3, (VITAMIN D3 ORAL) Take 2,000 Units by mouth. albuterol HFA (PROVENTIL HFA, VENTOLIN HFA) 90 mcg/actuation inhaler 2 puffs 4 times daily as needed. EPINEPHrine (EPIPEN) 0.3 mg/0.3 mL (1:1,000) auto-injector (Dr. Wadsworth) aspirin 81 mg chewable tablet Take 81 mg by mouth once daily. benzonatate (TESSALON PERLES) 100 mg capsule Take 1 capsule by mouth three times daily as needed for cough. (Patient not taking: No sig reported) albuterol (PROVENTIL) 2.5 mg /3 mL (0.083 %) nebulizer solution Use 3 mL via nebulizer one time only for 1 dose. Use over 5-15minutes. ALLERGIES: ALLERGIES Allergen Reactions Apple Hives, Anaphylaxis Banana Hives, Anaphylaxis Carrot Hives, Anaphylaxis Pineapple Itching, Anaphylaxis Shellfish Derived Swelling, Anaphylaxis Food allergies--lip and tongue swelling (Dr. Wadsworth diagnosed and prescribes EpiPen) Shrimp and lobster the worst Amoxicillin Other: See Comments Yeast infection VITALS: BP 132/76 Pulse 76 Temp 37.1 ?C (98.8 ?F) Resp 16 Wt 115.2 kg (254 lb) LMP 07/15/2010 SpO2 95% BMI 34.45 kg/m? PHYSICAL EXAM: GEN: pleasant, uncomfortable, alert HEART: regular rate, regular rhythm, no murmurs LUNGS: clear to auscultation, no wheezes or crackles, no increased WOB ABD: soft, non-distended, no masses palpated, non-tender EXT: no clubbing, no cyanosis, no edema BACK: Normal curvature of spine. No midline tenderness. Right lumbosacral paraspinal tenderness. Straight leg test induces pulling in the lateral-anterior thigh. Deep tendon reflexes 1+/4 at patellas. Normal lower extremity strength. Limping gait. HIP: tender over right greater trochanter. Pain with internal/external rotation. ASSESSMENT/PLAN: 1. Lumbar back pain with radiculopathy affecting right lower extremity - ICD9: 724.4, ICD10: M54.16 (primary diagnosis) 2. Osteoarthritis of right hip, unspecified osteoarthritis type - ICD9: 715.95, ICD10: M16.11 Seen here (more content not included)...[facility]01-25-2023 History of Present illness Narrative* Alfredo Luna MD - 05/05/2022 3:23 PM EST Patient presents with: Low Back Pain: right side x 3 days, muscular HPI: Back pain: Duration: woke with pain 3 days ago Character: aching and throbbing, 9/10, feels swollen in her back Location: right lower back Radiation: lateral hip to anterior thigh/knee. Aggravating: bending, sitting, standing, and twisting Relieving: lying down Pain relievers: Tylenol, lidocaine patch, linament Associated: PHx of lumbar DDD and R>L hip degenerative changes Pertinent negatives: Denies known injury, numbness or weakness, fever, loss of bladder or bowel control. Imaging: XR R hip 03/02/21, XR lumbar spine 09/19/2018 Physical Therapy: after fall a few years ago Treated with prednisone about a week ago for asthma flare after the flu. PAST MEDICAL HISTORY Diagnosis Date Asthmatic bronchitis Bilateral sciatica Biliary colic Gallbladder attack. Cervical dysplasia age 31 DDD (degenerative disc disease), lumbar Fibrocystic breast Fibromyalgia HTN (hypertension) Interstitial cystitis Obesity (BMI 35.0-39.9 without comorbidity) Seafood allergy, anaphylaxis Dr. Wadsworth PAST SURGICAL HISTORY Procedure Laterality Date APPENDECTOMY BREAST BIOPSY ~1999 R breast BX BREAST PERC NEED W/GUID 05/26/10 U/S needle core UOQ right breast COLONOSCOPY FLX DX W/COLLJ SPEC WHEN PFRMD 05-18-13 CRYO CAUTERY CERVIX 1987 EXCISION ROLLINS'S NEUROMA, SINGLE, EACH 1995 R foot NEUROPLASTY &/TRANSPOS MEDIAN NRV CARPAL TUNNE Right 1998 Carpal tunnel decomp TUBAL LIGATION, MEDICATIONS: pantoprazole DR (PROTONIX) 40 mg tablet Take 1 tablet by mouth daily before breakfast. Take on empty stomach, 1/2 hr before meal. montelukast (SINGULAIR) 10 mg tablet Take 1 tablet by mouth daily at bedtime. fluticasone (FLONASE) 50 mcg/actuation nasal spray Use 2 Sprays in each nostril once daily. Rinse mouth after use. gabapentin (NEURONTIN) 100 mg capsule Take 1 capsule by mouth twice daily as needed for up to 180 days. In addition to taking 600 mg pill at bedtime gabapentin (NEURONTIN) 600 mg tablet Take 1 tablet by mouth daily at bedtime for 180 days. As directed conjugated estrogens (PREMARIN) vaginal cream Use about pea-sized amount at urethral area as needed atorvastatin (LIPITOR) 40 mg tablet Take 40 mg by mouth daily at bedtime. citalopram (CELEXA) 40 mg tablet Take 1 tablet by mouth once daily. hydroCHLOROthiazide (HYDRODIURIL, ESIDRIX) 12.5 mg capsule Take 1 capsule by mouth once daily. As directed meclizine (ANTIVERT) 25 mg tab Take 1 tablet by mouth every 6 hours as needed (dizziness). losartan (COZAAR) 25 mg tablet Take 1 tablet by mouth once daily. metoprolol succinate ER (TOPROL XL) 50 mg 24 hr tablet Take 12.5 mg by mouth once daily. loratadine (CLARITIN) 10 mg tablet Take 1 tablet by mouth once daily. cholecalciferol, vitamin D3, (VITAMIN D3 ORAL) Take 2,000 Units by mouth. albuterol HFA (PROVENTIL HFA, VENTOLIN HFA) 90 mcg/actuation inhaler 2 puffs 4 times daily as needed. EPINEPHrine (EPIPEN) 0.3 mg/0.3 mL (1:1,000) auto-injector (Dr. Wadsworth) aspirin 81 mg chewable tablet Take 81 mg by mouth once daily. benzonatate (TESSALON PERLES) 100 mg capsule Take 1 capsule by mouth three times daily as needed for cough. (Patient not taking: No sig reported) albuterol (PROVENTIL) 2.5 mg /3 mL (0.083 %) nebulizer solution Use 3 mL via nebulizer one time only for 1 dose. Use over 5-15minutes. ALLERGIES: ALLERGIES Allergen Reactions Apple Hives, Anaphylaxis Banana Hives, Anaphylaxis Carrot Hives, Anaphylaxis Pineapple Itching, Anaphylaxis Shellfish Derived Swelling, Anaphylaxis Food allergies--lip and tongue swelling (Dr. Wadsworth diagnosed and prescribes EpiPen) Shrimp and lobster the worst Amoxicillin Other: See Comments Yeast infection VITALS: BP 132/76 Pulse 76 Temp 37.1 C (98.8 F) Resp 16 Wt 115.2 kg (254 lb) LMP 07/15/2010 SpO2 95% BMI 34.45 kg/m PHYSICAL EXAM: GEN: pleasant, uncomfortable, alert HEART: regular rate, regular rhythm, no murmurs LUNGS: clear to auscultation, no wheezes or crackles, no increased WOB ABD: soft, non-distended, no masses palpated, non-tender EXT: no clubbing, no cyanosis, no edema BACK: Normal curvature of spine. No midline tenderness. Right lumbosacral paraspinal tenderness. Straight leg test induces pulling in the lateral-anterior thigh. Deep tendon reflexes 1+/4 at patellas. Normal lower extremity strength. Limping gait. HIP: tender over right greater trochanter. Pain with internal/external rotation. ASSESSMENT/PLAN: 1. Lumbar back pain with radiculopathy affecting right lower extremity - ICD9: 724.4, ICD10: M54.16(primary diagnosis) 2. Osteoarthritis of right hip, unspecified osteoarthritis type - ICD9: 715.95, ICD10: M16.11 Seen here for similar episode Feb 2021. She again would like to avoid steroid because of recent useand does not find ibuprofen helpful. She may continue lineaments, ice/heat, and lidocaine patch. She will also increase gabapentin temporarily. Seek immediate evaluation for loss of bladder or bowel control, unexplained fever, or progressive weakness or numbness. Alfredo Luna MD documented in this encounterProtestant Hospital12-21-2022 Miscellaneous Notes* Telephone Encounter - Hailey Millard Pss - 03/31/2022 10:45 AM EST Patient was busy at the moment and requested we call her back in a little while * Telephone Encounter - Sara Briceno - 03/31/2022 10:31 AM EST Patient dropped of surgical clearance form with PSS for cataract surgery scheduled june 22, witha note also requesting handicap placard and order for lift chair. Patient needs to be scheduled for 40 minute pre-op appointment within 30 days of surgery. Full physical with EKG required. She will also be required to have face to face notes for insurance to cover lift chair, so cannot order without being seen to discuss. Please call patient to schedule. documented in this encounterProtestant Hospital11-22-2022 Instructions* Patient Instructions* Mylene Lezama MD - 03/02/2022 5:01 PM EST Images from the original note were not included. Pre-Op Instructions for patients of Dr. Mylene Lezama 2 days prior to surgery start: Prednisolone acetate-use one drop four times a day in operative eye Moxifloxacin- use one drop four times each day in operative eye Ketorolac - use one drop four times each day in operative eye You may use the drops in any order, but close your eye for 5 minutes after each drop. Continue to use any previous eye drops unless instructed otherwise. Day of Surgery: Do not eat or drink anything 8 hours prior to procedure time. Take all of your morning medication with only enough water to swallow them unless instructed otherwise by Dr. Lezama or Primary Care physician. Get one drop of Moxifloxacin and Ketorolac in the operative eye prior to arriving at the surgery center. After your surgery: Do not remove your eye shield at home, except to instill your medication eye drops. Your eye shieldwill be removed in the office the following day. No heavy lifting or bending from the waist. Limit your activity. Avoid bumping or rubbing the operative eye. You will be given instructions in the surgery center about starting the three eyedrops after surgery. Call the office if you have any questions or concerns at , option 1. If the call is after business hours you will automatically connect with the answering service and they will contact your doctor as needed documented in this encounterProtestant Hospital11-22-2022 History of Present illness Narrative* Mylene Lezama MD - 03/02/2022 4:51 PM EST Assessment and Plan 1. Combined forms of age-related cataract of both eyes Cataract Presurgical Documentation Cataract: Left eye (OS) Current Visual Acuity Right Eye Distance CC 20/20 Left Eye Distance CC 20/20 Glare Testing: Right Eye Medium 20/50 Right Eye High 20/100 Left Eye Medium 20/40 Left Eye High 20/60 Visual Function: Yadiel Florez states that the decline in vision from the cataract impedes her abilities as listed in the HPI, as well as other activities of daily living. Yadiel Florez has confirmed that she is no longer able to function adequately on a day-to-day basis because of her current visual condition. Further, it is my medical opinion that the cataract is the primary cause, or at least a significantly contributory cause of her visual dysfunction. With uncomplicated cataract surgery and lens implantation, it is my expectation that her visual function and quality of life will improve, significantly. The risks, benefits, alternatives, personnel and complications of cataract surgery with lens implantation were discussed with Yadiel Florez in detail. she appeared to understand and asked that I proceed with plans for surgery. 2. Asteroid hyalosis of right eye -stable Plan: Cataract: Left eye (OS) Aim -0.25 [id number] power +20.5 Flomax N Diabetes N Glaucoma N Astigmatism N Refractive surgery N Fuchs N Trypan blue N Malyugin ring N Other N/A I have confirmed and edited as necessary the relevant ophthalmic history, ROS, and the neuro exam findings as obtained by others. I have seen and examined Yadiel Florez. I have discussed the case and the management of this patient's care with the Resident/Fellow, if applicable. I also have reviewed and agree with the assessment and plan as stated above and agree withall of its relevant components. Mylene Lezama MD March 02, 2022 4:51 PM documented in this encounterProtestant Hospital11-14-2022 Instructions* Patient Instructions* Adriana Joya APRN.ELEMENTARY VOCAL MUSIC TEACHER - 02/22/2022 10:13 AM EST Check to see if your insurance covers shingles vaccine and what location to get the vaccine -usually best covered at your local pharmacy where you get prescriptions filled documented in this encounterProtestant Hospital11-14-2022 History of Present illness Narrative* Adriana Joya APRN.CNS - 02/22/2022 10:02 AM EST SUBJECTIVE: HIV SCREENING Never done BP CONTROLLED (<130/80) Never done SHINGRIX VACCINE(2 of 3) due on 12/27/2016 BONE DENSITY due on 2021 ADVANCE DIRECTIVE DISCUSSION Never done PNEUMOCOCCAL: 65+(1 - PCV) Never done COVID-19 VACCINE(4 - Booster for Pfizer series) due on 01/25/2022 HPI Yadiel Florez is a 66 year old female. PMH significant for ACTIVE PROBLEM LIST Hypertension Lumbar Disc Disease Depression Abnormal Mammogram Fibrocystic Breast Thrombosed External Hemorrhoid Seafood Allergy, Anaphylaxis Fibromyalgia Ddd (Degenerative Disc Disease), Lumbar Bilateral Sciatica Obesity (Bmi 35.0-39.9 Without Comorbidity) Acute Bilateral Low Back Pain Without Sciatica HPI excerpted from previous visits: Presents today for hospital discharge follow up she was seen at [facility] emergency department April 10. Admitted to [facility] for acute respiratory failure with hypoxia, hypokalemiapneumonia due to COVID-19 virus, hypoxemia hypertension and GERD. Noted to have multifocal pneumonia on CTA chest. Treated with dexamethasone at discharge. Unable to get antibiotic infusion due to not available. Notes [id number] recently Presents today for follow up visit feeling much improved Oxygen: 2L NC Pulse ox: 97-98% on 2L NC. Cough: much less; occasional Shortness of breath: some shortness of breath on exertion Home care: No Oral intake: Maintaining Mobility: Walking within the home, doing well Notes she is deep breathing 10 times per hour and walking around her home as she recovers and this is been helpful. PFT or pulmonology visit scheduled: Dr Martin; has follow up scheduled June. She notes bradycardia recently. Has cardiology visit next Tuesday. Her dose of metoprolol was decreased to 12.5 mg daily by [facility] physician. She is in her usual state of health. HTN: Without report of headache, chest pain, palpitations, dyspnea, peripheral edema, orthopnea, fatigue, and PND. Last 3 Encounter BP Readings: Date: BP: 02/22/2022 136/76 12/11/2021 130/80 09/01/2021 132/80 Hyperlipidemia. Ms. Florez reports doing well on current therapy Her most recent lipid panels are: Cholesterol, Total (mg/dL) Date Value 12/04/2019 202 06/05/2019 171 HDL Cholesterol (mg/dL) Date Value 12/04/2019 54 06/05/2019 41 LDL Cholesterol (mg/dL) Date Value 12/04/2019 128 06/05/2019 108 Triglyceride (mg/dL) Date Value 12/04/2019 102 06/05/2019 108 GERD: controlled Depression: stable mood, no voiced SI, HI. Chronic back pain: stable, no alarm symptoms. Gabapentin helping. No AEs. Review of Systems Constitutional: Negative. Musculoskeletal: Positive for arthralgias and back pain. Objective BP 136/76 Pulse 60 Resp 16 Wt 111.6 kg (246 lb) LMP 07/15/2010 BMI 33.36 kg/m Physical Exam Vitals and nursing note reviewed. Constitutional: Appearance: Normal appearance. HENT: Head: Normocephalic and atraumatic. Eyes: Conjunctiva/sclera: Conjunctivae normal. Neck: Thyroid: No thyromegaly. Vascular: Normal carotid pulses. No JVD. Cardiovascular: Rate and Rhythm: Normal rate and regular rhythm. Pulses: Normal pulses. Carotid pulses are 2+ on the right side and 2+ on the left side. Radial pulses are 2+ on the right side and 2+ on the left side. Heart sounds: Normal heart sounds. Pulmonary: Effort: Pulmonary effort is normal. Breath sounds: Normal breath sounds. Abdominal: General: Bowel sounds are normal. Palpations: Abdomen is soft. Skin: General: Skin is warm and dry. Neurological: General: No focal deficit present. Mental Status: She is alert and oriented to person, place, and time. ALLERGIES Allergen Reactions Apple Hives, Anaphylaxis Banana Hives, Anaphylaxis Carrot Hives, Anaphylaxis Pineapple Itching, Anaphylaxis Shellfish Derived Swelling, Anaphylaxis Food allergies--lip and tongue swelling (Dr. Wadsworth diagnosed and prescribes EpiPen) Shrimp and lobster the worst Amoxicillin Other: See Comments Yeast infection conjugated estrogens (PREMARIN) vaginal cream Use about pea-sized amount at urethral area as needed atorvastatin (LIPITOR) 40 mg tablet Take 40 mg by mouth daily at bedtime. citalopram (CELEXA) 40 mg tablet Take 1 tablet by mouth once daily. hydroCHLOROthiazide (HYDRODIURIL, ESIDRIX) 12.5 mg capsule Take 1 capsule by mouth once daily. As directed meclizine (ANTIVERT) 25 mg tab Take 1 tablet by mouth every 6 hours as needed (dizziness). gabapentin (NEURONTIN) 100 mg capsule Take 1 capsule by mouth twice daily as needed for up to 180 days. In addition to taking 600 mg pill at bedtime gabapentin (NEURONTIN) 600 mg tablet Take 1 tablet by mouth daily at bedtime for 180 days. As directed losartan (COZAAR) 25 mg tablet Take 1 tablet by mouth once daily. metoprolol succinate ER (TOPROL XL) 50 mg 24 hr tablet Take 12.5 mg by mouth once daily. loratadine (CLARITIN) 10 mg tablet Take 1 tablet by mouth once daily. cholecalciferol, vitamin D3, (VITAMIN D3 ORAL) Take 2,000 Units by mouth. albuterol HFA (PROVENTIL HFA, VENTOLIN HFA) 90 mcg/actuation inhaler 2 puffs 4 times daily as needed. albuterol (PROVENTIL) 2.5 mg /3 mL (0.083 %) nebulizer solution Use 3 mL via nebulizer one time only for 1 dose. Use over 5-15minutes. EPINEPHrine (EPIPEN) 0.3 mg/0.3 mL (1:1,000) auto-injector (Dr. Wadsworth) aspirin 81 mg chewable tablet Take 81 mg by mouth once daily. pantoprazole DR (PROTONIX) 40 mg tablet Take 1 tablet by mouth daily before breakfast. Take on empty stomach, 1/2 hr before meal. montelukast (SINGULAIR) 10 mg tablet Take 1 tablet by mouth daily at bedtime. fluticasone (FLONASE) 50 mcg/actuation nasal spray Use 2 Sprays in each nostril once daily. Rinse mouth after use. benzonatate (TESSALON PERLES) 100 mg capsule Take 1 capsule by mouth three times daily as needed for cough. (Patient not taking: Reported on 02/22/2022) PAST MEDICAL HISTORY Diagnosis Date Asthmatic bronchitis Bilateral sciatica Biliary colic Gallbladder attack. Cervical dysplasia age 31 DDD (degenerative disc disease), lumbar Fibrocystic breast Fibromyalgia HTN (hypertension) Interstitial cystitis Obesity (BMI 35.0-39.9 without comorbidity) Seafood allergy, anaphylaxis Dr. Wadsworth Social History Tobacco Use Smoking status: Former Types: Cigarettes Quit date: 04/11/1993 Years since quittin.8 Smokeless tobacco: Never Vaping Use Vaping Use: Never used Substance Use Topics Alcohol use: Yes Comment: Rarely Drug use: No Component Latest Ref Rng & Units 08/18/2021 WBC 3.70 - 11.00 k/uL 4.49 RBC 3.90 - 5.20 m/uL 4.12 Hemoglobin 11.5 - 15.5 g/dL 13.0 Hematocrit 36.0 - 46.0 % 38.9 MCV 80.0 - 100.0 fL 94.4 MCH 26.0 - 34.0 pg 31.6 MCHC 30.5 - 36.0 g/dL 33.4 RDW-CV 11.5 - 15.0 % 11.9 Platelet Count 150 - 400 k/uL 195 MPV 9.0 - 12.7 fL 9.3 Absolute nRBC <0.01 k/uL <0.01 Glucose 74 - 99 mg/dL 88 BUN 7 - 21 mg/dL 13 Creatinine 0.58 - 0.96 mg/dL 0.77 Sodium 136 - 144 mmol/L 141 Potassium 3.7 - 5.1 mmol/L 3.8 Chloride 97 - 105 mmol/L 104 CO2 22 - 30 mmol/L 27 Anion Gap 9 - 18 mmol/L 10 Calcium 8.5 - 10.2 mg/dL 9.4 eGFR >=60 mL/min/1.73m 86 Hemoglobin A1C 4.3 - 5.6 % 5.6 Estimated Average Glucose mg/dL 114 Vitamin D 25 Hydroxy 31.0 - 80.0 ng/mL 54.3 Magnesium 1.7 - 2.3 mg/dL 1.7 TSH 0.270 - 4.200 mIU/L 1.050 Free T4 0.9 - 1.7 ng/dL 0.7 (L) ASSESSMENT/PLAN 2. Allergic rhinitis, unspecified seasonality, unspecified trigger - ICD9: 477.9, ICD10: J30.9 (primary diagnosis) Plans to see director of investigations, currently allergies not well controlled - MONTELUKAST 10 MG TABLET - FLUTICASONE PROPIONATE 50 MCG/ACTUATION NASAL SPRAY,SUSPENSION 3. Need for shingles vaccine - ICD9: V04.89, ICD10: Z23 - SHINGRIX PRINTED PHARMACY INSTRUCTIONS 4. Encounter for immunization - ICD9: V03.89, ICD10: Z23 - PNEUMOCOCCAL VACCINE (PREVNAR 20) - PFIZER-BIONTECH COVID-19 BIVALENT BOOSTER VACCINE, AGE 12+ YR 5. DDD (degenerative disc disease), lumbar - ICD9: 722.52, ICD10: M51.36 Stable, currently controlled, continue to monitor. - GABAPENTIN 100 MG CAPSULE - GABAPENTIN 600 MG TABLET 6. Bilateral sciatica - ICD9: 724.3, ICD10: M54.31, M54.32 Stable, currently controlled, continue to monitor. - GABAPENTIN 100 MG CAPSULE - GABAPENTIN 600 MG TABLET 7. Fibromyalgia - ICD9: 729.1, ICD10: M79.7 Stable, currently controlled, continue to monitor. PDMP website checked and validated. All prescriptions have been APPROPRIATELY filled. No suspiciousactivity was identified. 02/22/2022 by Adriana Joya APRN.ELEMENTARY VOCAL MUSIC TEACHER - GABAPENTIN 600 MG TABLET 8. IFG (impaired fasting glucose) - ICD9: 790.21, ICD10: R73.01 - COMP METABOLIC PANEL 9. Hypokalemia - ICD9: 276.8, ICD10: E87.6 - COMP METABOLIC PANEL 10. Essential hypertension - ICD9: 401.9, ICD10: I10 controlled - Continue current medication(s) - Encouraged dietary sodium restriction/DASH diet - Recommended regular aerobic exercise. - CBC + DIFF - COMP METABOLIC PANEL 11. Gastroesophageal reflux disease, unspecified whether esophagitis present - ICD9: 530.81, ICD10:K21.9 - CBC + DIFF - MAGNESIUM BLD 6 mo follow up Ilya Monroe MD with labs Adriana Joya APRN.CNS Medical Decision Making: Problems: Moderate: 2+ stable chronic illnesses Data: Unique test(s) ordered: 3+ Risk: Moderate: Drug management Medical Decision Making Level: 4 - Moderate documented in this encounterProtestant Hospital11-07-2022 History of Present illness Narrative* Radha Brand - 02/15/2022 8:31 AM EST Yadiel Florez is identified through a medication adherence outreach initiative based on pharmacy claims data from [employer] (insurer) for Statin medication(s). Patient is reviewed 02/15/22 due to medication adherence concerns with the following medications (name, strength): atorvastatin 40 mg. Per data report last fill date and days supply: 11/19/21, 90 tabs Per reconcile dispense last fill date and days supply: 11/19/21, 90 days Contacted patient: Spoke with patient Patient is identified by Name and . Discussion on adherence consisted of - pt reports still having medication available -denied calling pharmacy to refill, and reported she will call when refill is needed Any need for new prescription (I.e. out of refills on most recent prescription) YES/NO/Active: no (patient reports still having 2 refills remaining) The Patient verbalizes understanding and denies further questions/concerns at this time. Outcome of review/outreach: (choose outcome source and status) - Patient declined refill Per call to patient/caregiver Radha Brand PharmD Candidate P4 Student * Gordon Carter RPh - 02/15/2022 8:31 AM EST I agree with the assessment/plan described. Gordon Carter PharmD BCACP documented in this encounterProtestant Hospital09-02-2022 Instructions* Patient Instructions* Ronit Kapoor APRN.CNP - 12/11/2021 11:02 AM EDT Good RX to fill estrogen cream documented in this encounterProtestant Hospital09-02-2022 History of Present illness Narrative* Ronit Kapoor APRN.CNP - 12/11/2021 10:36 AM EDT Chief Lock Tender Operator offered: Patient declines. Yadiel is a 66 year old who presents for an annual gynecologic exam without complaints. Postmenopausal: Yes since age 53 HRT use: No. Last Pap: 12/16/2016 normal HPV: 12/10/2016 negative History of abnormal pap: Yes, cryo 30 with normal Paps since then Last mammogram: today, pending History of abnormal mammogram: Yes , benign right breast bx with marker and has fibrocystic breast disease Sexually active: No Hot flashes: No Night sweats: No Vaginal dryness: Yes - resolved with vaginal estrogen cream twice weekly OB History T4 L4 SAB0 IAB0 Ectopic0 Multiple0 Live Births0 Pantographer History LMP: 07/15/2010, Postmenopausal Age at Menarche: Age at First : Age at Menopause: Pantographer History Comments: Sexual Activity: Yes; Male; Postmenopausal Contraception: No contraception data on record PAST MEDICAL HISTORY Diagnosis Date Asthmatic bronchitis Bilateral sciatica Biliary colic Gallbladder attack. Cervical dysplasia DDD (degenerative disc disease), lumbar Fibrocystic breast Fibromyalgia HTN (hypertension) Interstitial cystitis Obesity (BMI 35.0-39.9 without comorbidity) Seafood allergy, anaphylaxis Dr. Wadsworth PAST SURGICAL HISTORY Procedure Laterality Date APPENDECTOMY BREAST BIOPSY ~1999 R breast BX BREAST PERC NEED W/GUID 05/26/10 U/S needle core UOQ right breast COLONOSCOPY FLX DX W/COLLJ SPEC WHEN PFRMD 05-18-13 CRYO CAUTERY CERVIX 1987 EXCISION ROLLINS'S NEUROMA, SINGLE, EACH 1995 R foot NEUROPLASTY &/TRANSPOS MEDIAN NRV CARPAL TUNNE Right 1998 Carpal tunnel decomp TUBAL LIGATION, FAMILY HISTORY Problem Relation Age of Onset Heart Mother Enlarged Heart Ischemic Heart Disease Mother DVT Mother other (gallbladder) Mother Stroke Father Hypertension Father Diabetes Father Diabetes Brother Type 1 Breast Cancer Sister Stage 2 Stroke Brother Alcohol/Drug Brother Over-dose No Known Problems Daughter No Known Problems Daughter No Known Problems Son other (Bi-Polar) Son SOCIAL HISTORY Social History Tobacco Use Smoking status: Former Types: Cigarettes Quit date: 04/11/1993 Years since quittin.6 Smokeless tobacco: Never Vaping Use Vaping Use: Never used Substance Use Topics Alcohol use: Yes Comment: Rarely Drug use: No REVIEW OF SYSTEMS Abdomen: No abdominal pain, nausea, vomiting, diarrhea, or constipation. No bloating, early satiety, indigestion, or increased flatulence. Bladder: No dysuria, gross hematuria, urinary frequency, urinary urgency, or incontinence Breast: No breast lumps, nipple d/c, overlying skin changes, redness or skin retraction Allergies and current medication updated:Yes EXAM: BP 130/80 Ht 6' 0 (1.83m) Wt 243 lb (110.2kg) LMP 07/15/2010 BMI 32.95 kg/(m^2). GENERAL: pleasant, female in no apparent distress HEENT: Normocephalic, atraumatic, mucus membranes moist, and no lesions NECK: Supple, full range of motion, no adenopathy, and thyroid normal DERMATOLOGY: Normal, without lesions, non-icteric, and non-hirsute BREAST: soft, non-tender, symmetric, no dominant mass, normal nipple-areolar complex, no lymphadenopathy, and no nipple discharge CHEST: Normal inspiratory effort ABDOMEN: soft, non-tender, and no masses PELVIC: external genitalia normal, normal Bartholin's glands, urethra, Cowlington's glands, no vulvar lesions, no cervical lesions, physiologic discharge present, normal appearing perineal body and perianal region +vaginal atrophy BIMANUAL: uterus normal size, shape and consistency, no adnexal masses, and non-tender RECTOVAGINAL: deferred. NEURO: alert and oriented x3,exam grossly non-focal EXTREMITIES: normal ASSESSMENT/PLAN: 1) Health maintenance: Pap done Mammogram ordered Mammogram up to date Nutrition, exercise and routine health maintenance exams reviewed. Calcium/Vitamin D supplementation information provided. Colon cancer screening: up to date with screening BMD: ordered 2. Postmenopausal atrophic vaginitis - ICD9: 627.3, ICD10: N95.2 - PREMARIN 0.625 MG/GRAM VAGINAL CREAM 3) Follow up one year or sooner as needed Ronit Kapoor APRN.JEY documented in this encounterProtestant Hospital09-02-2022 History of Present illness Narrative* Taylor Varner RT(R) - 12/11/2021 10:10 AM EDT Radiology Service Progress Note PATIENT NAME: Yadiel Florez DATE OF SERVICE: December 11, 2021 TIME: 10:09 AM PATIENT IDENTITY VERIFICATION COMPLETED USING TWO (2) IDENTIFIERS: Name and Date of confirmedby patient verbally. FALL SCREENING: Has the patient had 2 falls in the last year or 1 fall with injury or currently using an Ambulatory Assistive Device (Walker, Cane, Wheelchair, Crutches, etc.)? No PATIENT GENDER DATA: Female. status: : No status: NO. PATIENT RELEVANT IMPLANT DATA REVIEWED: Not Applicable RADIOLOGY DEPARTMENT: Mammography PERIPHERAL IV DATA: Not applicable SIGNED BY: RT Edwar(R) December 11, 2021 10:09 AM documented in this encounterProtestant Hospital08-22-2022 History of Present illness Narrative* Gracy Alcocer LPN - 11/30/2021 10:00 AM EDT Patient presents for COVID booster. Denies any problems at this time. Tolerated injection well. Gracy Alcocer LPN documented in this encounterProtestant Hospital08-22-2022 History of Present illness Narrative* Chinyere Goode - 11/30/2021 9:49 AM EDT Reached out to patient on 11/30/2021 @ 9:50 am > no answer, left a voice message Will reach out once more in the future Chinyere Zuñiga Doctor of Pharmacy Candidate 2022 * Chinyere Goode - 11/16/2021 12:50 PM EDT Yadiel Florez is identified through a medication adherence outreach initiative based on pharmacy claims data from [employer] (insurer). Patient is reviewed 11/16/21 due to medication adherence concerns with HLD medication(s) for Atorvastatin 40 mg daily. Per data report last fill date and quantity: 06/29/2021 for a 90 day supply Per reconcile dispense: no data. Per call to pharmacy: Rx active and available for refill. - Medication is not listed on the medications tab list but it is present in the medication reconciliation tab with a start date of 06/03/2021 and the source is [facility]. It is also present on the Continuity of Care Visit Summary from [place] done on 06/03/2021. As a current active Rx. No other record of medication was found. Outcome of review: (choose one of the options selected in excel spreadsheet) - Checked Reconcile Report > no data - Contacted pharmacy > Rx due to to be filled and still has active refills - Contacted patient > No answer > unable to reach patient or leave message d/t invalid phone number (disconnected number tone) Chinyere Zuñiga Doctor of Pharmacy Candidate 2022 documented in this encounterProtestant Hospital08-19-2022 Miscellaneous Notes* Telephone Encounter - Jami Delacruz LPN - 11/27/2021 11:52 AM EDT Last seen pcp 08/17/21 Next appt is 02/22/22. * Telephone Encounter - Estefanía Loyola - 11/27/2021 10:32 AM EDT Patient has been identified by name and date of : Yes Requested Prescriptions Pending Prescriptions Disp Refills citalopram (CELEXA) 40 mg tablet 90 tablet 3 Sig: Take 1 tablet by mouth once daily. RX INSTRUCTIONS: Patient aware RX will be sent to pharmacy. No need to notify patient. Estefanía Loyola documented in this encounterProtestant Hospital06-30-2022 Miscellaneous Notes* Telephone Encounter - Jami Delacruz LPN - 10/08/2021 3:15 PM EDT Patient notified of results and provider's instructions. Patient verbalizes understanding. Results sent to Dr. Espinoza too. Jami Delacruz LPN * Telephone Encounter - Jami Delacruz LPN - 10/08/2021 2:55 PM EDT ----- Message from Ilya Monroe MD sent at 10/08/2021 2:45 PM EDT ----- Let patient know US showed fatty liver (hepatic steatosis). Forward results to Dr. Espinoza (her GI provider; patient had called to request the test be done per his instructions). Rest of US is within normal limits documented in this encounterProtestant Hospital06-30-2022 History of Present illness Narrative* RT Wanda(R) - 10/08/2021 9:15 AM EDT Radiology Service Progress Note PATIENT NAME: Yadiel Florez DATE OF SERVICE: October 08, 2021 TIME: 9:39 AM PATIENT IDENTITY VERIFICATION COMPLETED USING TWO (2) IDENTIFIERS: Name and Date of confirmedby patient verbally. FALL SCREENING: Has the patient had 2 falls in the last year or 1 fall with injury or currently using an Ambulatory Assistive Device (Walker, Cane, Wheelchair, Crutches, etc.)? No PATIENT GENDER DATA: Female. status: : No status: NO. PATIENT RELEVANT IMPLANT DATA REVIEWED: Not Applicable RADIOLOGY DEPARTMENT: Ultrasound PERIPHERAL IV DATA: Not applicable SIGNED BY: RT Wanda(R) October 08, 2021 9:39 AM documented in this encounterProtestant Hospital06-20-2022 Evaluation + Plan note Extracted from: Title:Clinical Document Author:PRASHANTH ESPINOZA Date:09/28/21 [facility] ADMISSION HISTORY AN D PHYSICIAL CHIEF COMPLAINT: HISTORY OF PRESENT ILLNESS: REVIEW OF SYSTEMS: ACTIVE PROBLEMS: (4) Asthma ([id number]) Heart murmur ([id number]) Hypertension ([id number]) Vomiting ([id number]) MEDICATIONS: Active Inpt Meds: None Active PRN Meds: None One Time Meds: None Active IV Meds: Lactated Ringers Infusion 1,000 mL (LR 1,000 mL) Start: 09/28/21 8:28:00 EDT, Rate: 50 mL/hr, 09/28/21 8:28:00 EDT ALLERGIES: (6) Apple Bananas Carrots Pineapple seasonal enviromental Shellfish FAMILY HISTORY: SOCIAL HISTORY: PHYSICAL EXAM: VITALS: [id number](kg) 09/28 08:4836.6131/[id number]/42807.8 24 Hr Tmax: 36.6 at 09/28 08:48 36 Hr Tmax: 36.6 at 09/28 08:48 Vital Signs are the last 5 in the past 48 hours. Weights display the last 5 within 7 days. Initial Wt: 09/28 104.8 kg 231 lb Current Wt: 09/28 104.8 kg 231 lb GENERAL: HEENT: CARDIOVASCULAR: RESPIRATORY: ABDOMEN: EXREMETIES: NEUROLOGICAL: PSYCHIATRIC: LABS: No 36hr Lab Data DIAGNOSTICS: IMPRESSION: PLAN: History and Physical Update I have examined the patient; reviewed the H&P and there are no changes to the H&P unless noted below. [facility] 06-20-2022 Hospital Discharge instructions Patient Education 09/28/2021 10:29:11 Monitored Anesthesia Care, Care After Monitored Anesthesia Care, Care After These instructions provide you with information about caring for yourself after your procedure. Your health care provider may also give you more specific instructions. Your treatment has been plannedaccording to current medical practices, but problems sometimes occur. Call your health care provider if you have any problems or questions after your procedure. What can I expect after the procedure? After your procedure, you may: Feel sleepy for several hours. Feel clumsy and have poor balance for several hours. Feel forgetful about what happened after the procedure. Have poor judgment for several hours. Feel nauseous or vomit. Have a sore throat if you had a breathing tube during the procedure. Follow these instructions at home: For at least 24 hours after the procedure: Have a responsible adult stay with you. It is important to have someone help care for you until youare awake and alert. Rest as needed. Do not: ?Participate in activities in which you could fall or become injured. ?Drive. ?Use heavy machinery. ?Drink alcohol. ?Take sleeping pills or medicines that cause drowsiness. ?Make important decisions or sign legal documents. ?Take care of children on your own. Eating and drinking Follow the diet that is recommended by your health care provider. If you vomit, drink water, juice, or soup when you can drink without vomiting. Make sure you have little or no nausea before eating solid foods. General instructions Take aczl-wcg-joiiezq and prescription medicines only as told by your health care provider. If you have sleep apnea, surgery and certain medicines can increase your risk for breathing problems. Follow instructions from your health care provider about wearing your sleep device: ?Anytime you are sleeping, including during daytime naps. ?While taking prescription pain medicines, sleeping medicines, or medicines that make you drowsy. If you smoke, do not smoke without supervision. Keep all follow-up visits as told by your health care provider. This is important. Contact a health care provider if: You keep feeling nauseous or you keep vomiting. You feel light-headed. You develop a rash. You have a fever. Get help right away if: You have trouble breathing. Summary For several hours after your procedure, you may feel sleepy and have poor judgment. Have a responsible adult stay with you for at least 24 hours or until you are awake and alert. This information is not intended to replace advice given to you by your health care provider. Make sure you discuss any questions you have with your health care provider. Document Released: 07/18/2016 Document Revised: 06/26/2018 Document Reviewed: 07/18/2016 [employer] Patient Education 2020 [employer]. 09/28/2021 10:29:11 9 - AO Minor Esophagogastroduodenoscopy (06/22) (Custom) Esophagogastroduodenoscopy This is an endoscopic procedure (a procedure that uses a device like a flexible telescope) that allows your caregiver to view the upper stomach and small bowel. This test allows your caregiver to look at the esophagus. The esophagus carries food from your mouth to your stomach. They can also look at your duodenum. This is the first part of the small intestine that attaches to the stomach. This chapin t is used to detect problems in the bowel such as ulcers and inflammation. MEANING OF TEST Your caregiver will go over the test results with you and discuss the importance and meaning of your results, as well as treatment options and the need for additional tests if necessary. OBTAINING THE TEST RESULTS Your caregiver s office will call you with the results of the test. POST SEDATION INSTRUCTIONS Rest at home today. Since your coordination may be impaired, be cautious on stairways, do not drive any vehicle or operate any heavy machinery, or use any sharp instruments for the remainder of the day. Do not drink any alcoholic beverages or make any major decisions for 24 hours. POST PROCEDURE INSTRUCTIONS Progress slowly with full liquids then resume previous diet and medications. Belching or passing of gas is to be expected. Notify the physician if you have severe chest pain, fever, or if difficulty when swallowing persists. 06/19/13 Custom Follow Up Care 08/24/2021 12:55:40 With:PRASHANTH ESPINOZA MD Address: [address] [phone] When: Unknown Comments:office will call with specimen results and any follow up if necessary [facility] 05-24-2022 History of Present illness Narrative* Froylan Dorsey APRN.CARRIER OPERATOR - 09/01/2021 12:49 PM EDT Images from the original note were not included. Subjective HPI HPI Yadiel Florez is a 65 year old female who presents today for CC of right hand pain. This started 3 days ago, no known injury. Has tried otc medication without relief. Symptoms are worsened by rom of hand and touching first and second finger. Risk factors, hx of multiple areas of arthritis. .Patient presents with: Musculoskeletal Problem: Pt denied accident /injury pain reported 9, x3 days reported weakness Follow Up: swelling (RT) hand PAST MEDICAL HISTORY Diagnosis Date Asthmatic bronchitis Bilateral sciatica Biliary colic Gallbladder attack. Cervical dysplasia DDD (degenerative disc disease), lumbar Fibrocystic breast Fibromyalgia HTN (hypertension) Interstitial cystitis Obesity (BMI 35.0-39.9 without comorbidity) Seafood allergy, anaphylaxis Dr. Wadsworth PAST SURGICAL HISTORY Procedure Laterality Date APPENDECTOMY BREAST BIOPSY ~1999 R breast BX BREAST PERC NEED W/GUID 05/26/10 U/S needle core UOQ right breast COLONOSCOPY FLX DX W/COLLJ SPEC WHEN PFRMD 05-18-13 CRYO CAUTERY CERVIX 1987 EXCISION ROLLINS'S NEUROMA, SINGLE, EACH 1995 R foot NEUROPLASTY &/TRANSPOS MEDIAN NRV CARPAL TUNNE Right 1998 Carpal tunnel decomp TUBAL LIGATION, ALLERGIES Apple, Banana, Carrot, Pineapple, Shellfish Derived, and Amoxicillin MEDICATIONS hydroCHLOROthiazide (HYDRODIURIL, ESIDRIX) 12.5 mg capsule Take 1 capsule by mouth once daily. As directed meclizine (ANTIVERT) 25 mg tab Take 1 tablet by mouth every 6 hours as needed (dizziness). gabapentin (NEURONTIN) 100 mg capsule Take 1 capsule by mouth twice daily as needed for up to 180 days. In addition to taking 600 mg pill at bedtime gabapentin (NEURONTIN) 600 mg tablet Take 1 tablet by mouth daily at bedtime for 180 days. As directed losartan (COZAAR) 25 mg tablet Take 1 tablet by mouth once daily. metoprolol succinate ER (TOPROL XL) 50 mg 24 hr tablet Take 12.5 mg by mouth once daily. benzonatate (TESSALON PERLES) 100 mg capsule Take 1 capsule by mouth three times daily as needed for cough. loratadine (CLARITIN) 10 mg tablet Take 1 tablet by mouth once daily. cholecalciferol, vitamin D3, (VITAMIN D3 ORAL) Take 2,000 Units by mouth. citalopram (CELEXA) 40 mg tablet Take 1 tablet by mouth once daily. pantoprazole DR (PROTONIX) 40 mg tablet Take 1 tablet by mouth daily before breakfast. Take on empty stomach, 1/2 hr before meal. montelukast (SINGULAIR) 10 mg tablet Take 1 tablet by mouth daily at bedtime. fluticasone (FLONASE) 50 mcg/actuation nasal spray Use 2 Sprays in each nostril once daily. Rinse mouth after use. conjugated estrogens (PREMARIN) vaginal cream Use about pea-sized amount at urethral area as needed EPINEPHrine (EPIPEN) 0.3 mg/0.3 mL (1:1,000) auto-injector (Dr. Wadsworth) aspirin 81 mg chewable tablet Take 81 mg by mouth once daily. cetirizine (ZYRTEC) 10 mg tablet Take 1 tablet by mouth once daily. albuterol HFA (PROVENTIL HFA, VENTOLIN HFA) 90 mcg/actuation inhaler 2 puffs 4 times daily as needed. albuterol (PROVENTIL) 2.5 mg /3 mL (0.083 %) nebulizer solution Use 3 mL via nebulizer one time only for 1 dose. Use over 5-15minutes. FAMILY HISTORY Problem Relation Age of Onset Heart Mother Enlarged Heart Ischemic Heart Disease Mother DVT Mother other (gallbladder) Mother Stroke Father Hypertension Father Diabetes Father Diabetes Brother Type 1 Breast Cancer Sister Stage 2 Stroke Brother Alcohol/Drug Brother Over-dose No Known Problems Daughter No Known Problems Daughter No Known Problems Son other (Bi-Polar) Son Social History Tobacco Use Smoking status: Former Smoker Quit date: 04/11/1993 Years since quittin.4 Smokeless tobacco: Never Used Vaping Use Vaping Use: Never used Substance Use Topics Alcohol use: Yes Comment: Rarely Drug use: No ROS Objective Blood pressure 132/80, pulse 83, temperature 36.2 C (97.1 F), resp. rate 18, weight 115.8 kg (255 lb 6.4 oz), last menstrual period 07/15/2010, SpO2 97 %. Physical Exam Constitutional: General: She is not in acute distress. Appearance: She is not toxic-appearing or diaphoretic. HENT: Head: Normocephalic and atraumatic. Pulmonary: Effort: Pulmonary effort is normal. No accessory muscle usage or respiratory distress. Musculoskeletal: Right elbow: Normal. Hands: Neurological: Mental Status: She is alert and oriented to person, place, and time. ASSESSMENT/PLAN: 1. Hand pain, right - ICD9: 729.5, ICD10: M79.641 Xray negative Will order steroids Will schedule f/u d/t severity of pain Urgent f/u for severe/worsening s/s. - XR HAND GENERAL 3V PA/LAT/OBL RIGHT Impression: 1. No acute fracture or dislocation. Administrative Assistant Receptionist: YESY Transcribe Date/Time: Sep 01 2021 12:53P Dictated by : GRACY WONG MD Agrees to plan Froylan Dorsey APRN.JEY documented in this encounterProtestant Hospital05-16-2022 Miscellaneous Notes* Telephone Encounter - Nicole Carter RN - 08/24/2021 11:16 AM EDT Patient notified of results and provider's instructions. Patient verbalizes understanding. Nicole Carter RN * Telephone Encounter - Sara Briceno Ma - 08/24/2021 11:07 AM EDT Left message for patient to call office * Telephone Encounter - Taylor Powell LPN - 08/20/2021 12:39 PM EDT No answer. Left message for patient to call office and ask to speak to a nurse regarding lab results. * Telephone Encounter - Ilya Monroe MD - 08/19/2021 7:25 PM EDT All her labs are within normal limits aside from Free T4 which for her has been at the same level 0.7 to 0.8 (this time 0.7) for years. Since TSH is fine, not worried about a thyroid issue. * Telephone Encounter - Nicole Carter RN - 08/19/2021 12:48 PM EDT Patient calls and is asking about lab results. Please review and advise, Nicole Carter RN documented in this encounterProtestant Hospital05-09-2022 History of Present illness Narrative* Ilya Monroe MD - 08/17/2021 4:57 PM EDT This note was created using Levels Beyondriter. Subjective Yadiel Florez is a 65 year old female. Patient presents with: F/U 6 months SUBJECTIVE: Yadiel Florez is a 65 year old year old lady here today for 6 month follow up appointment for review of medical conditions. Noted that doing well on cholesterol med from [facility]. Arthritis in neck--states is killing her. Also fibromyalgia pain. Gabapentin helps for sciatica pain. A little for arthritis. Walking every day for exercise. Had COVID really bad and almost . HR got down to 30. That resolved. On oxygen for 2 months. Worked with lung doctor. Dr. Johan Martin and his TERESA. Walked as instructed. Trying to lose weight. So hard but keeps trying. Knows needs to watch portions. Trying to cut back on meats and eat more veggies. Ran out of gabapentin. Needs to resume. Bedtime dose and lower day time dose. Noted that has feet issues and supposed to have surgery but has not been able to schedule. Needs to have upper endoscopy for reflux issues and maybe gallbladder issues. Dr. Espinoza. PAST MEDICAL HISTORY Diagnosis Date Asthmatic bronchitis Bilateral sciatica Biliary colic Gallbladder attack. Cervical dysplasia DDD (degenerative disc disease), lumbar Fibrocystic breast Fibromyalgia HTN (hypertension) Interstitial cystitis Obesity (BMI 35.0-39.9 without comorbidity) Seafood allergy, anaphylaxis Dr. Wadsworth Current Outpatient Medications Medication Sig losartan (COZAAR) 25 mg tablet Take 1 tablet by mouth once daily. metoprolol succinate ER (TOPROL XL) 50 mg 24 hr tablet Take 12.5 mg by mouth once daily. benzonatate (TESSALON PERLES) 100 mg capsule Take 1 capsule by mouth three times daily as needed for cough. gabapentin (NEURONTIN) 100 mg capsule Take 1 capsule by mouth twice daily as needed for up to 180 days. In addition to taking 600 mg pill at bedtime gabapentin (NEURONTIN) 600 mg tablet Take 1 tablet by mouth daily at bedtime for 180 days. As directed loratadine (CLARITIN) 10 mg tablet Take 1 tablet by mouth once daily. cholecalciferol, vitamin D3, (VITAMIN D3 ORAL) Take 2,000 Units by mouth. citalopram (CELEXA) 40 mg tablet Take 1 tablet by mouth once daily. pantoprazole DR (PROTONIX) 40 mg tablet Take 1 tablet by mouth daily before breakfast. Take on empty stomach, 1/2 hr before meal. montelukast (SINGULAIR) 10 mg tablet Take 1 tablet by mouth daily at bedtime. fluticasone (FLONASE) 50 mcg/actuation nasal spray Use 2 Sprays in each nostril once daily. Rinse mouth after use. meclizine (ANTIVERT) 25 mg tab Take 1 tablet by mouth every 6 hours as needed (dizziness). hydroCHLOROthiazide 12.5 mg capsule Take 1 capsule by mouth once daily. As directed albuterol HFA (PROVENTIL HFA, VENTOLIN HFA) 90 mcg/actuation inhaler 2 puffs 4 times daily as needed. albuterol (PROVENTIL) 2.5 mg /3 mL (0.083 %) nebulizer solution Use 3 mL via nebulizer one time only for 1 dose. Use over 5-15minutes. conjugated estrogens (PREMARIN) vaginal cream Use about pea-sized amount at urethral area as needed EPINEPHrine (EPIPEN) 0.3 mg/0.3 mL (1:1,000) auto-injector (Dr. Wadsworth) aspirin 81 mg chewable tablet Take 81 mg by mouth once daily. cetirizine (ZYRTEC) 10 mg tablet Take 1 tablet by mouth once daily. (Patient not taking: Reported on 08/05/2021 ) No current facility-administered medications for this visit. Review of Systems Objective BP 122/72 Pulse 62 Wt 112.9 kg (249 lb) LMP 07/15/2010 BMI 34.86 kg/m Last 5 Encounter Wt Readings: Date: Wt: 08/17/2021 112.9 kg (249 lb) 08/05/2021 112.9 kg (248 lb 12.8 oz) 05/08/2021 107.5 kg (237 lb) 02/26/2021 110.4 kg (243 lb 6.4 oz) 01/29/2021 110.7 kg (244 lb) No waist measurement recorded Estimated body mass index is 34.86 kg/m as calculated from the following: Height as of 04/15/20: 180 cm (5' 10.87 ). Weight as of this encounter: 112.9 kg (249 lb). Last 5 Encounter BP Readings: Date: BP: 08/17/2021 122/72 08/05/2021 120/78 05/08/2021 120/70 02/26/2021 110/72 01/29/2021 106/58[trubp average[ Physical Exam Constitutional: Appearance: Normal appearance. HENT: Head: Normocephalic. Eyes: Conjunctiva/sclera: Conjunctivae normal. Cardiovascular: Rate and Rhythm: Normal rate and regular rhythm. Heart sounds: Normal heart sounds. Pulmonary: Effort: Pulmonary effort is normal. Breath sounds: Normal breath sounds. Skin: General: Skin is warm and dry. Neurological: General: No focal deficit present. Mental Status: She is alert and oriented to person, place, and time. Psychiatric: Mood and Affect: Mood normal. Behavior: Behavior normal. Thought Content: Thought content normal. Judgment: Judgment normal. Assessment and Plan ASSESSMENT/PLAN: 1. Essential hypertension - ICD9: 401.9, ICD10: I10 (primary diagnosis) - good control - Continue current medication(s) - Recommended regular aerobic exercise. - Recommend home blood pressure monitoring, to bring results in on next visit - Goal of BP <130/80 - Recommended no refined sugar, low refined starch, healthy oil intake (olive oil), healthy protein(fish) along the lines of the Mediterranean diet. - HYDROCHLOROTHIAZIDE 12.5 MG CAPSULE - BASIC METABOLIC PNL - TSH BLD - T4 FREE/FREE THYROX 2. Benign paroxysmal positional vertigo, unspecified laterality - ICD9: 386.11, ICD10: H81.10 Continue present management. - MECLIZINE 25 MG TABLET 3. DDD (degenerative disc disease), lumbar - ICD9: 722.52, ICD10: M51.36 Ran out of pain med Increased pain noted Will resume gabapentin Further evaluation and treatment as indicated. - GABAPENTIN 100 MG CAPSULE - GABAPENTIN 600 MG TABLET 4. Bilateral sciatica - ICD9: 724.3, ICD10: M54.31, M54.32 See above Gabapentin does help control this pain. Continue present management. - GABAPENTIN 100 MG CAPSULE - GABAPENTIN 600 MG TABLET 5. Fibromyalgia - ICD9: 729.1, ICD10: M79.7 Med does help. Still complained of fibromyalgia pain Further evaluation and treatment as indicated. - GABAPENTIN 600 MG TABLET 6. Vitamin D deficiency - ICD9: 268.9, ICD10: E55.9 Adjust as needed - VITAMIN D 25 HYDROXY 7. IFG (impaired fasting glucose) - ICD9: 790.21, ICD10: R73.01 Needs to keep working on diet and exercise with lifestyle changes for effective weight loss as wellas control of DM, and control of BP and lipids. - BASIC METABOLIC PNL - HGB A1C 8. Hypokalemia - ICD9: 276.8, ICD10: E87.6 Adjust replacement as needed - BASIC METABOLIC PNL - MAGNESIUM BLD 9. Encounter for long-term current use of medication - ICD9: V58.69, ICD10: Z79.899 - BASIC METABOLIC PNL - MAGNESIUM BLD - TSH BLD - T4 FREE/FREE THYROX - HGB A1C - CBC Above issues addressed with patient. Patient involved in shared decision making for management of medical issues. Main complaint was of chronic pain that has been worse lately. Trying to stay active. Continue present management. History and medications reviewed. Epic updated as needed Refills and/or prescriptions taken care of and meds adjusted as indicated after reviewed history, exam and labs. Health Maintenance reviewed. Updated record and/or ordered tests as recorded. Encouraged on efforts at healthy diet and regular exercise and adequate sleep. Ilya Monroe MD [facility] encounter[facility] Miscellaneous Notes* Telephone Encounter - Hamida Naqvi LPN - 08/06/2021 8:19 AM EDT Phone call placed patient advised (see prior provider encounter) Patient verbalized understanding, agreed with plan of care. Hamida Naqvi LPN. * Telephone Encounter - Ashley Gunter APRN.CNP - 08/06/2021 6:45 AM EDT Please notify of negative influenza and covid test. Continue comfort measures for symptoms as you would for a cold. Any worsening symptoms follow up with PCP or ER. Ashley Gunter APRN.CNP documented in this encounterPro[facility]04-27-[facility]22 History of Present illness Narrative* Sunni Cook PA-C - 08/05/2021 11:05 AM EDT This note was created using NoteWriter. Subjective Yadiel Florez is a 65 year old female. HPI Patient presents with sinus congestion, pressure, right ear pain postnasal drip, dizziness, body aches and fatigue over the past 3 days. No fever. She denies significant cough. She does take Claritinoff and on but has not been taking it every day. She also has Flonase but has not been taking that every day. She denies a known fever but states she has had some sweats. No chest pain or shortness of breath. She did have COVID in March and would like checked for that to make sure she did not have it again. She is vaccinated for COVID. No diarrhea or vomiting. No change in smell or taste. Denies sick contacts. Review of Systems Constitutional: Positive for chills and fatigue. Negative for fever. HENT: Positive for congestion, ear pain, postnasal drip, rhinorrhea, sinus pressure, sinus pain andsore throat. Respiratory: Negative. Cardiovascular: Negative. Gastrointestinal: Negative. Genitourinary: Negative. Musculoskeletal: Positive for myalgias. Neurological: Positive for headaches. All other systems reviewed and are negative. PAST MEDICAL HISTORY Diagnosis Date Asthmatic bronchitis Bilateral sciatica Biliary colic Gallbladder attack. Cervical dysplasia DDD (degenerative disc disease), lumbar Fibrocystic breast Fibromyalgia HTN (hypertension) Interstitial cystitis Obesity (BMI 35.0-39.9 without comorbidity) Seafood allergy, anaphylaxis Dr. Wadsworth Current Outpatient Medications Medication Sig Dispense Refill losartan (COZAAR) 25 mg tablet Take 1 tablet by mouth once daily. 90 tablet 3 metoprolol succinate ER (TOPROL XL) 50 mg 24 hr tablet Take 12.5 mg by mouth once daily. benzonatate (TESSALON PERLES) 100 mg capsule Take 1 capsule by mouth three times daily as needed for cough. 30 capsule 1 gabapentin (NEURONTIN) 100 mg capsule Take 1 capsule by mouth twice daily as needed for up to 180 days. In addition to taking 600 mg pill at bedtime 60 capsule 5 gabapentin (NEURONTIN) 600 mg tablet Take 1 tablet by mouth daily at bedtime for 180 days. As directed 30 tablet 5 cholecalciferol, vitamin D3, (VITAMIN D3 ORAL) Take 2,000 Units by mouth. citalopram (CELEXA) 40 mg tablet Take 1 tablet by mouth once daily. [address] (PROTONIX) 40 mg tablet Take 1 tablet by mouth daily before breakfast. Take on empty stomach, 1/2 hr before meal. 30 tablet 11 montelukast (SINGULAIR) 10 mg tablet Take 1 tablet by mouth daily at bedtime. 30 tablet 11 fluticasone (FLONASE) 50 mcg/actuation nasal spray Use 2 Sprays in each nostril once daily. Rinse mouth after use. 1 Bottle 11 meclizine (ANTIVERT) 25 mg tab Take 1 tablet by mouth every 6 hours as needed (dizziness). 30 tablet 0 hydroCHLOROthiazide 12.5 mg capsule Take 1 capsule by mouth once daily. As directed 90 capsule 3 albuterol HFA (PROVENTIL HFA, VENTOLIN HFA) 90 mcg/actuation inhaler 2 puffs 4 times daily as needed. 1 Inhaler 3 albuterol (PROVENTIL) 2.5 mg /3 mL (0.083 %) nebulizer solution Use 3 mL via nebulizer one time only for 1 dose. Use over 5-15minutes. 50 Vial 0 conjugated estrogens (PREMARIN) vaginal cream Use about pea-sized amount at urethral area as needed1 Tube 2 EPINEPHrine (EPIPEN) 0.3 mg/0.3 mL (1:1,000) auto-injector (Dr. Wadsworth) guaiFENesin (MUCINEX) 600 mg 12 hr tablet Take 2 tablets by mouth twice daily for 7 days. 28 tablet0 loratadine (CLARITIN) 10 mg tablet Take 1 tablet by mouth once daily. (Patient not taking: Reportedon 05/08/2021 ) 20 tablet 0 cetirizine (ZYRTEC) 10 mg tablet Take 1 tablet by mouth once daily. (Patient not taking: Reported on 08/05/2021 ) 30 tablet 11 aspirin 81 mg chewable tablet Take 1 tablet by mouth once daily. (Patient not taking: Reported on 05/08/2021 ) 0 No current facility-administered medications for this visit. PAST SURGICAL HISTORY Procedure Laterality Date APPENDECTOMY BREAST BIOPSY ~1999 R breast BX BREAST PERC NEED W/GUID 05/26/10 U/S needle core UOQ right breast COLONOSCOPY FLX DX W/COLLJ SPEC WHEN PFRMD 05-18-13 CRYO CAUTERY CERVIX 1987 EXCISION ROLLINS'S NEUROMA, SINGLE, EACH 1995 R foot NEUROPLASTY &/TRANSPOS MEDIAN NRV CARPAL TUNNE Right 1998 Carpal tunnel decomp TUBAL LIGATION, FAMILY HISTORY Problem Relation Age of Onset Heart Mother Enlarged Heart Ischemic Heart Disease Mother DVT Mother other (gallbladder) Mother Stroke Father Hypertension Father Diabetes Father Diabetes Brother Type 1 Breast Cancer Sister Stage 2 Stroke Brother Alcohol/Drug Brother Over-dose No Known Problems Daughter No Known Problems Daughter No Known Problems Son other (Bi-Polar) Son Social History Tobacco Use Smoking status: Former Smoker Quit date: 04/11/1993 Years since quittin.3 Smokeless tobacco: Never Used Vaping Use Vaping Use: Never used Substance Use Topics Alcohol use: Yes Comment: Rarely Drug use: No Objective BP 120/78 Pulse (!) 58 Temp 36 C (96.8 F) Resp 21 Wt 112.9 kg (248 lb 12.8 oz) LMP 07/15/2010 SpO2 96% BMI 34.83 kg/m Physical Exam Vitals reviewed. Constitutional: Appearance: Normal appearance. HENT: Head: Normocephalic and atraumatic. Right Ear: Ear canal and external ear normal. Left Ear: Tympanic membrane, ear canal and external ear normal. Ears: Comments: Clear right middle ear effusion Nose: Congestion present. Mouth/Throat: Mouth: Mucous membranes are moist. Pharynx: Oropharynx is clear. Cardiovascular: Rate and Rhythm: Normal rate and regular rhythm. Heart sounds: Normal heart sounds. Pulmonary: Effort: Pulmonary effort is normal. Breath sounds: Normal breath sounds. Musculoskeletal: Cervical back: Neck supple. Lymphadenopathy: Cervical: No cervical adenopathy. Skin: General: Skin is warm and dry. Findings: No rash. Neurological: General: No focal deficit present. Mental Status: She is alert and oriented to person, place, and time. Assessment and Plan ASSESSMENT/PLAN: 1. Viral URI - ICD9: 465.9, ICD10: J06.9 - Discussed viral etiology and rationale for treatment. - Symptomatic treatment with prn analgesia - Supportive care with fluids and rest - Follow up in 3-5 days if symptoms persist or sooner if worsening of symptoms - mucinex sent, recommended using her flonase and meclizine she has at home. covid test pending. Red flags to be seen again discussed. Patient agreeable. - COVID WITH FLUA+B, ROUTINE Sunni R Athy, PA-C documented in this encounterPro[facility]03-22-[facility]22 History of Present illness Narrative* Gracy Alcocer LPN - 06/30/2021 3:40 PM EDT Patient presents for COVID vaccine. Denies any problems at this time. Tolerated injection well. Gracy Alcocer LPN [facility]* Diagnosis Need for vaccination- Primary Need for prophylactic vaccination and inoculation against unspecified single disease [facility]* Diagnosis Viral URI- Primary Acute upper respiratory infections of unspecified site [facility] Diagnosis Medication management Encounter for long-term (current) use of other medications [facility]* Diagnosis Essential hypertension- Primary Unspecified essential hypertension Benign paroxysmal positional vertigo, unspecified laterality DDD (degenerative disc disease), lumbar Degeneration of lumbar or lumbosacral intervertebral disc Bilateral sciatica Sciatica Fibromyalgia Mylagia and myositis, unspecified Vitamin D deficiency Unspecified vitamin D deficiency IFG (impaired fasting glucose) Impaired fasting glucose Hypokalemia Hypopotassemia Encounter for long-term current use of medication [facility]* Diagnosis Hand pain, right- Primary Pain in limb [facility]* Diagnosis Vomiting, unspecified vomiting type, unspecified whether nausea present [facility]* Diagnosis Depression, unspecified depression type [facility]* Diagnosis Need for vaccination- Primary Need for prophylactic vaccination and inoculation against unspecified single disease [facility]* Diagnosis Encounter for screening mammogram for malignant neoplasm of breast Other screening mammogram [facility]* Diagnosis Encounter for routine gynecologic examination in Medicare patient- Primary Encounter for screening mammogram for malignant neoplasm of breast Other screening mammogram Encounter for screening for human papillomavirus (HPV) Special screening examination for human papillomavirus (HPV) Pap smear for cervical cancer screening Screening for malignant neoplasm of the cervix Postmenopausal atrophic vaginitis Encounter for screening for osteoporosis Special screening for osteoporosis Asymptomatic postmenopausal state Dense breast tissue on mammogram [facility]* Diagnosis Screening for HIV (human immunodeficiency virus)- Primary Special screening examination for other specified viral diseases Allergic rhinitis, unspecified seasonality, unspecified trigger Need for shingles vaccine Need for prophylactic vaccination and inoculation against other viral diseases Encounter for immunization Need for other specified prophylactic vaccination against single bacterial disease DDD (degenerative disc disease), lumbar Degeneration of lumbar or lumbosacral intervertebral disc Bilateral sciatica Sciatica Fibromyalgia Mylagia and myositis, unspecified IFG (impaired fasting glucose) Impaired fasting glucose Hypokalemia Hypopotassemia Essential hypertension Unspecified essential hypertension Gastroesophageal reflux disease, unspecified whether esophagitis present [facility] Diagnosis Combined forms of age-related cataract of both eyes- Primary Other and combined forms of senile cataract Asteroid hyalosis of right eye Crystalline deposits in vitreous [facility]* Diagnosis Lumbar back pain with radiculopathy affecting right lower extremity- Primary Osteoarthritis of right hip, unspecified osteoarthritis type Combined forms of age-related cataract of both eyes Other and combined forms of senile cataract [facility]* Diagnosis Pre-operative examination for internal medicine- Primary Other specified pre-operative examination Cataract of both eyes, unspecified cataract type Coronary artery disease involving chemehuevi coronary artery of chemehuevi heart without angina pectoris Encounter for screening for diabetes mellitus Screening for diabetes mellitus Gastroesophageal reflux disease, unspecified whether esophagitis present Combined forms of age-related cataract of both eyes Other and combined forms of senile cataract [facility] Diagnosis Pseudophakia- Primary Lens replaced by other means [facility]* Diagnosis Pseudophakia- Primary Lens replaced by other means Combined forms of age-related cataract of both eyes Other and combined forms of senile cataract Asteroid hyalosis of right eye Crystalline deposits in vitreous [facility]* Diagnosis Uveitis, intermediate, left- Primary Uveitis, anterior Unspecified iridocyclitis Pseudophakia Lens replaced by other means Combined forms of age-related cataract of both eyes Other and combined forms of senile cataract Asteroid hyalosis of right eye Crystalline deposits in vitreous [facility]* Diagnosis Pseudophakia- Primary Lens replaced by other means Uveitis, anterior Unspecified iridocyclitis [facility] Diagnosis Pseudophakia- Primary Lens replaced by other means Vitreous floaters of left eye Uveitis, anterior Unspecified iridocyclitis [facility]* Diagnosis Essential hypertension- Primary Unspecified essential hypertension Purulent bronchitis (HCC) Mucopurulent chronic bronchitis Acute respiratory failure with hypoxia (HCC) Acute respiratory failure Asthma Unspecified asthma Screening for HIV (human immunodeficiency virus) Special screening examination for other specified viral diseases Depression, unspecified depression type DDD (degenerative disc disease), lumbar Degeneration of lumbar or lumbosacral intervertebral disc Bilateral sciatica Sciatica Fibromyalgia Mylagia and myositis, unspecified Situational mixed anxiety and depressive disorder Adjustment disorder with mixed anxiety and depressed mood IFG (impaired fasting glucose) Impaired fasting glucose [facility]* Diagnosis Vagina itching- Primary Pruritus of genital organs Postmenopausal atrophic vaginitis Encounter for screening mammogram for breast cancer Dense breast tissue [facility]* Diagnosis Primary osteoarthritis of right hip- Primary Primary localized osteoarthrosis, pelvic region and thigh Pain of right hip [facility]* Diagnosis Abnormal mammogram- Primary Abnormal mammogram, unspecified [facility]* Diagnosis Abnormal ultrasound of breast- Primary Other (abnormal) findings on radiological examination of breast documented [facility]* Diagnosis Acute cough- Primary [facility] Diagnosis Abnormal ultrasound of breast- Primary Other (abnormal) findings on radiological examination of breast [facility] Diagnosis Abnormal ultrasound of breast Other (abnormal) findings on radiological examination of breast [facility]* Diagnosis 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) (HCC)- Primary [facility] Diagnosis 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, left (HCC)- Primary Vitamin D deficiency Unspecified vitamin D deficiency [facility]* Diagnosis 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, left (HCC) [facility] Diagnosis 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, left (HCC)- Primary Abnormal ultrasound of breast Other (abnormal) findings on radiological examination of breast Abnormal findings on diagnostic imaging of breast Other (abnormal) findings on radiological examination of breast [facility]* Diagnosis Secondary malignancy of axillary node (HCC)- Primary [facility]* Diagnosis Abnormal findings on diagnostic imaging of breast Other (abnormal) findings on radiological examination of breast documented in this encounter [facility] course Narrative No data available for this section [facility] Progress note No data available for this section [facility] Reason for referral (narrative)* Diagnostic Procedure Only (Urgent) - Closed Specialty Diagnoses / Procedures Referred By Contac t Referred To Contact XR IMAGING Diagnoses Hand pain, right Procedures XR HAND GENERAL 3V PA/LAT/OBL RIGHT RADEX HAND MINIMUM 3 VIEWS Froylan Dorsey APRN.CNP [address] [place] [address] Xr Imaging Referral ID Status Reason Start Date Expiration Date V isits Requested Visits Authorized [id number] Closed Auto-Generate d Referral 09/01/2021 10/01/2022 1 1 [facility] for referral (narrative)* Diagnostic Procedure Only (Routine) - Closed Specialty Diagnoses / Procedures Referred By Contac t Referred To Contact US IMAGING Diagnoses Vomiting, unspecified vomiting type, unspecified whether nausea present Procedures US ABD RT UPPER QUADRANT US ABDOMINAL REAL TIME W/IMAGE LIMITED Ilya Monroe MD [address] [place] [address] Us Imaging Referral ID Status Reason Start Date Expiration Date V isits Requested Visits Authorized [id number] Closed Auto-Generate d Referral 09/30/2021 10/29/2022 1 1 [facility] for referral (narrative)* Diagnostic Procedure Only (Routine) - Closed Specialty Diagnoses / Procedures Referred By Radha fontanez Referred To Contact BR IMAGING Diagnoses Encounter for screening mammogram for malignant neoplasm of breast Procedures TERESE SCREENING W RAFY SCREENING BREAST DGTL RAFY UNI/BILAT ADD ON SCREENING MAMMOGRAPHY BI 2-VIEW BREAST INC CAD Reina Quintanilla APRN.CNM [address] [place] [address] [facility] [address] [place] [address] Referral ID Status Reason Start Date Expiration Date V isits Requested Visits Authorized [id number] Closed Auto-Generate d Referral 12/01/2020 12/31/2021 1 1 [facility] for referral (narrative)* Diagnostic Procedure Only (Routine) - Pending Review Specialty Diagnoses / Procedures Referred By Radha fontanez Referred To Contact BR IMAGING Diagnoses Encounter for screening mammogram for malignant neoplasm of breast Dense breast tissue on mammogram Procedures TERESE SCREENING W RAFY SCREENING DIGITAL BREAST TOMOSYNTHESIS BI SCREENING MAMMOGRAPHY BI 2-VIEW BREAST INC CAD Ronit Kapoor APRN.CARRIER OPERATOR [address] [place] [address] [facility] [address] [place] [address] Referral ID Status Reason Start Date Expiration Date Visits Requested Visits Authorized [id number] Pending Review Auto-Generat ed Referral 12/11/2021 01/10/2023 1 1 [facility] for referral (narrative)* Outpatient Procedure (Routine) - Closed Specialty Diagnoses / Procedures Referred By Radha fontanez Referred To [facility] Diagnoses Pre-operative examination for internal medicine Procedures ECG COMPLETE ECG ROUTINE ECG W/LEAST 12 LDS W/I&R Adriana Joya, ELEMENTARY VOCAL MUSIC TEACHER [address] [place] [address] [facility] [place] [address] [place] [address] Referral ID Status Reason Start Date Expiration Date V isits Requested Visits Authorized [id number] Closed Auto-Generate d Referral 05/27/2022 05/27/2023 1 1 [facility] for referral (narrative)* Outpatient Procedure (Routine) - Authorized Specialty Diagnoses / Procedures Referred By Contac t Referred To Contact [facility] Diagnoses Asthma Procedures SPIROMETRY - BASELINE AND POST DILATOR BRNCDILAT RSPSE SPMTRY PRE&POST-BRNCDILAT N Adriana Joya APRN.CNS [address] [place] [address] [facility] [place] [address] [place] [address] Referral ID Status Reason Start Date Expiration Date Visits Requested Visits Authorized [id number] Authorized Auto-Generat ed Referral 08/23/2022 09/22/2023 1 1 [facility] for referral (narrative)* Diagnostic Procedure Only (Routine) - Authorized Specialty Diagnoses / Procedures Referred By Harleenac t Referred To Contact BR IMAGING Diagnoses Encounter for screening mammogram for breast cancer Dense breast tissue Procedures TERESE SCREENING W RAFY SCREENING DIGITAL BREAST TOMOSYNTHESIS BI SCREENING MAMMOGRAPHY BI 2-VIEW BREAST INC CAD Ronit Kapoor APRN.CARRIER OPERATOR [address] [place] [address] [facility] Imaging [address] [place] [address] Referral ID Status Reason Start Date Expiration Date Visits Requested Visits Authorized [id number] Authorized Auto-Generat ed Referral 11/19/2023 12/18/2023 1 1 [facility] for referral (narrative)* Diagnostic Procedure Only (Routine) - Pending Review Specialty Diagnoses / Procedures Referred By Contac t Referred To Contact BR IMAGING Diagnoses Abnormal mammogram Procedures US BREAST LTD LEFT US BREAST UNI REAL TIME WITH IMAGE LIMITED Ronit Kapoor APRN.CNP [address] [place] [address] Br Imaging [address] [place] [address] Referral ID Status Reason Start Date Expiration Date Visits Requested Visits Authorized [id number] Pending Review Auto-Generat ed Referral 12/31/2022 01/30/2024 1 1 [facility] for referral (narrative)* Diagnostic Procedure Only (Routine) - Authorized Specialty Diagnoses / Procedures [facility] To Contact BR IMAGING Diagnoses Abnormal ultrasound of breast Procedures US BIOPSY BREAST LEFT BX BREAST W/DEVICE 1ST LESION ULTRASOUND Concetta Aguiar MD [address] [place] [address] Br Imaging [address] [place] [address] Referral ID Status Reason Start Date Expiration Date Visits Requested Visits Authorized [id number] Authorized Auto-Generat ed Referral 03/02/2024 1 1 T [facility] for referral (narrative)* Diagnostic Procedure Only (Routine) - Authorized Specialty Diagnoses / Procedures [facility] Referred To Contact BR IMAGING Diagnoses Abnormal findings on diagnostic imaging of breast Procedures US BREAST LTD LEFT US BREAST UNI REAL TIME WITH IMAGE LIMITED Karen Bae MD [address] [place] [address] Br Imaging [address] [place] [address] Referral ID Status Reason Start Date Expiration Date Visits Requested Visits Authorized [id number] Authorized Auto-Generat ed Referral 03/18/2023 04/16/2024 1 1 [facility] for referral (narrative)* Diagnostic Procedure Only (Routine) - Closed Specialty Diagnoses / Procedures [facility] Referred To Contact BR IMAGING Diagnoses Abnormal findings on diagnostic imaging of breast Procedures US BREAST LTD LEFT US BREAST UNI REAL TIME WITH IMAGE LIMITED Karen Bae MD [address] [place] [address] Br Imaging [address] [place] [address] Referral ID Status Reason Start Date Expiration Date V isits Requested Visits Authorized [id number] Closed Auto-Generate d Referral 03/18/2023 04/16/2024 1 1 [facility] for visit Narrative* Diagnostic Procedure Only (Routine) - Closed Specialty Diagnoses / Procedures Referred By Contac t Referred To Contact BR IMAGING Diagnoses Encounter for screening mammogram for malignant neoplasm of breast Procedures TERESE SCREENING W RAFY SCREENING BREAST DGTL RAFY UNI/BILAT ADD ON SCREENING MAMMOGRAPHY BI 2-VIEW BREAST INC Reina Forrest, RAY.CNM [address] [place] [address] Br Imaging [address] [place] [address] Referral ID Status Reason Start Date Expiration Date V isits Requested Visits Authorized [id number] Closed Auto-Generate d Referral 12/01/2020 12/31/2021 1 1 [facility] for visit Narrative* Diagnostic Procedure Only (Routine) - Closed Specialty Diagnoses / Procedures Referred By Contac t Referred To Contact BR IMAGING Diagnoses Abnormal ultrasound of breast Procedures US BIOPSY BREAST LEFT BX BREAST W/DEVICE 1ST LESION ULTRASOUND GUID BREAST SURGERY PROCEDURE UNLISTED Concetta Knox MD [address] [place] [address] Br Imaging [address] [place] [address] Referral ID Status Reason Start Date Expiration Date V isits Requested Visits Authorized [id number] Closed Auto-Generate d Referral 02/01/2023 03/02/2024 1 1 [facility] for visit Narrative* Diagnostic Procedure Only (Routine) - Closed Specialty Diagnoses / Procedures Referred By Contac t Referred To Contact BR IMAGING Diagnoses Abnormal findings on diagnostic imaging of breast Procedures US BREAST LTD LEFT US BREAST UNI REAL TIME WITH IMAGE LIMITED Karen Bae MD [address] [facility] [place] [address] Br Imaging [address] [place] [address] Referral ID Status Reason Start Date Expiration Date V isits Requested Visits Authorized [id number] Closed Auto-Generate d Referral 03/18/2023 04/16/2024 1 1 [facility] Discharge Instructions * Instructions* Nicole Toledo CNP - 08/24/2019 Take antibiotic as directed. Follow-up with your PCP as recommended. Any new or worsening symptoms contact your PCP or you may return to the emergency department. COVID 19 was negative today. documented in this encounter* Instructions* Penny Duque MD - 08/26/2019 Please continue Taking your prescribed doxycycline as prescribed, use inhaler as needed for shortness of breath follow-up with your primary doctor and or return to the ED for any worsening symptom for further management. * Attachments The following attachments cannot be sent through Care Everywhere. * Pneumonia (Citizen Of [place]) * Hypokalemia (Citizen [place]) documented in this encounter* Instructions* Jamaal Irvin MD - 08/20/2019 Continue your albuterol nebulization every 4-6 hours as needed for shortness of breath, persistent wheezing or chest tightness; you may use your albuterol inhaler when you are away from home 2 puffs every 4 6 hours as needed as well Consult with your primary care physician for further care recommendations If he having increasing shortness of breath you may return to ER documented in this encounter Assessments Diagnosis Protracted URI Diagnosis Bronchopneumonia Bronchopneumonia, organism unspecified Hypokalemia Hypopotassemia Diagnosis Mild asthma with acute exacerbation, unspecified whether persistent Advance Directives No Advanced Directives Records FoundDocuments on File Type Date Recorded Patient Manager Primary Expl anation Advance Directives and Livin g Will 08/23/2019 10:34 PM Documents on File Type Date Recorded Patient Manager Primary Expl anation Advance Directives and Livin g Will 08/26/2019 3:40 AM Documents on File Type Date Recorded Patient Manager Primary Expl anation Advance Directives and Livin g Will 08/20/2019 8:36 PM Summary Purpose Family History No Family History Records FoundNo Family History Records FoundNo Family History Records FoundNo Family History Records Found Health Concerns Infection Onset Date Last Indicated Resolved Time COVID-19 Rule-Out 08/05/2021 08/05/2021 Infection Onset Date Last Indicated Resolved Time COVID-19 Rule-Out 08/05/2021 08/05/2021 08/05/2021 10:45 PM EDT Medications Administered Section Active Administered Medications - up to 3 most recent administrations Medication Order MAR Action Action Date Dose Rate Site PHENYLephrine 2.5 % 1 Drop (AK-DILATE, JEREMY-SYNEPHRINE) 1 Drop, BOTH EYES, DIRECTED, Starting on Tue03/02/22 at 1530, Until Tue03/03/22 at 0329, Administer for dilation PROTECT FROM LIGHT Given 03/02/2022 3:35 PM EST 1 Drop proparacaine 0.5 % 1 Drop (ALCAINE) 1 Drop, BOTH EYES, DIRECTED, Starting on Tue03/02/22 at 1530, Until Tue03/03/22 at 0329, Administer for pneumo tonometry, tonopen tonometry, or pachymetry. In the event of a proparacaine shortage, administer tetracaine 0.5% ophthalmic drops 1 drop in the left eye as directed for pneumo tonometry, tonopen tonometry, or pachymetry Given 03/02/2022 3:35 PM EST 1 Drop tropicamide 1 % 1 Drop (MYDRIACYL) 1 Drop, BOTH EYES, DIRECTED, Starting on Tue03/02/22 at 1530, Until Tue03/03/22 at 0329, Administer for dilation Given 03/02/2022 3:35 PM EST 1 Drop Inactive Administered Medications - up to 3 most recent administrations Medication Order MAR Action Action Date Dose Rate Site PHENYLephrine 2.5 % 1 Drop (AK-DILATE, JEREMY-SYNEPHRINE) 1 Drop, LEFT EYE, DIRECTED, Starting on Tue07/23/22 at 1330, Until 07/24/22 at 0129, Administer for dilation PROTECT FROM LIGHT Given 07/23/2022 1:31 PM EDT 1 Drop proparacaine 0.5 % 1 Drop (ALCAINE) 1 Drop, LEFT EYE, DIRECTED, Starting on Tue07/23/22 at 1400, Until 07/24/22 at 0159, Administer for pneumo tonometry, tonopen tonometry, or pachymetry. In the event of a proparacaine shortage, administer tetracaine 0.5% ophthalmic drops 1 drop in the left eye as directed for pneumo tonometry, tonopen tonometry, or pachymetry Given 07/23/2022 1:31 PM EDT 1 Drop tropicamide 1 % 1 Drop (MYDRIACYL) 1 Drop, LEFT EYE, DIRECTED, Starting on Tue07/23/22 at 1330, Until 07/24/22 at 0129, Administer for dilation Given 07/23/2022 1:31 PM EDT 1 Drop Inactive Administered Medications - up to 3 most recent administrations Medication Order MAR Action Action Date Dose Rate Site lidocaine 10 mg/mL (1 %) injection (XYLOCAINE) OTHER, NEEDED, Starting on Tue02/22/23 at 1317, Until Tue02/22/23 at 1317, Intraprocedure Given 02/22/2023 1:17 PM EST 100 mg Axilla, Left Reason for Referral Specialty Diagnoses / Procedures [facility] Referred To Contact MR IMAGING Diagnoses 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, left (HCC) Procedures MRI 3D POST PROCESSING 3D RENDERING W/INTERP&POSTPROC DIFF WORK STATION Karen Bae MD [address] [place] [address] Mr Imaging [facility] Referral ID Status Reason Start Date Expiration Date Visits Requested Visits Authorized [id number] Pending Review Auto-Generat ed Referral 3 04/07/2024 1 1 Specialty Diagnoses / Procedures [facility] Referred To Contact MR IMAGING Diagnoses 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, left (HCC) Procedures MRI BREAST WO/W IVCON BILATERAL MRI BREAST WITHOUT&WITH CONTRAST W/CAD BILATERAL Karen Bae MD [address] [place] [address] Mr Imaging [facility] Referral ID Status Reason Start Date Expiration Date Visits Requested Visits Authorized [id number] Authorized Auto-Generat ed Referral 3 04/07/2024 1 1 Specialty Diagnoses / Procedures [facility] Referred To Contact Oncology Diagnoses 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, left (HCC) Procedures CONSULT TO ONCOLOGY OFFICE/OUTPATIENT [facility] MDM 60-74 MINUTES Karen Bae MD [address] [place] [address] Referral ID Status Reason Start Date Expiration Date Visits Requested Visits Authorized [id number] Authorized PCP Requested Referral 3 03/08/2024 1 1 Specialty Diagnoses / Procedures Referred By Contac t Referred To Contact Diagnoses 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, left (HCC) Procedures CONSULT TO MEDICAL GENETICS - CANCER Karen Bae MD [address] [place] [address] [facility] [address] [place] [address] Referral ID Status Reason Start Date Expiration Date Visits Requested Visits Authorized [id number] Ref Not Required PCP Requested Referral 3 03/08/2024 1 1 Additional Source Comments Reason for Visit (unrecogniz ed section and content) Reason Comments Emesis Shortness of Breath Cough Reason Comments Cough Shortness of Breath Reason Comments Imm/Inj Reason Comments Nasal Congestion sinus, cough, [place], di zziness, right ear pain x 4 days Reason Comments Results Reason Comments F/U 6 months Reason Comments Musculoskeletal Problem Pt denied accide nt /injury pain reported 9, x3 days reported weakness Follow Up swelling (RT) hand Reason Comments Radiology US Specialty Diagnoses / Procedures Referred By Contac t Referred To Contact US IMAGING Diagnoses Vomiting, unspecified vomiting type, unspecified whether nausea present Procedures US ABD RT UPPER QUADRANT US ABDOMINAL REAL TIME W/IMAGE LIMITED Ilya Monroe MD [address] [place] [address] Us Imaging Referral ID Status Reason Start Date Expiration Date V isits Requested Visits Authorized [id number] Closed Auto-Generate d Referral 09/30/2021 10/29/2022 1 1 Reason Onset Date Comments Refill Request 11/27/2021 Reason Onset Date Comments Allied Health Visit 11/16/2021 Medication a dherence Outreach Reason Comments Yearly Exam Reason Onset Date Comments Allied Health Visit 02/15/2022 Medication A dherence Outreach Reason Comments F/U 6 Month Reason Comments Blurred Vision Both Eyes For 1 year Halos Both Eyes For 1 year Glare For 1 year Difficulty Reading Both Eyes For 1 year Specialty Diagnoses / Procedures Referred By Radha t Referred To Contact Ophthalmology / OPHTHALMOLOGY Diagnoses Cataracts, bilateral CATARACTS- BOTH EYES Procedures OFFICE/OUTPATIENT NEW HIGH MDM 60-74 MINUTES OFFICE/OUTPATIENT [facility] MDM 40-54 MIN NEW ADULT Ilya Monroe MD [address] [place] [address] Mylene Lezama MD [address] [place] [address] Referral ID Status Reason Start Date Expiration Date V isits Requested Visits Authorized [id number] Authorized 02/22/2022 04/10/2022 99 99 Reason Comments Appointment Reason Comments Low Back Pain right side x 3 days, muscular Reason Comments Pre-Op Exam Reason Onset Date Comments Refill Request 06/02/2022 Pre-op drops lef t eye Reason Onset Date Comments Refill Request 06/04/2022 Reason Comments Post-op (Ophthalmology) Left Eye S/P Cat aract surgery with insertion of PC IOL Left eye 06/22/2022 Eye Itching Left Eye Eye Pain Left Eye Slight soreness in t he left eye Blurred Vision Left Eye Foreign Body Sensation Left eye Reason Comments Post-op Cataract OS s/p cataract extract ion with intraocular lens implantation left eye 06/22/22 Floaters Left Eye Since surgery Reason Comments Eye Problem Left Eye Specialty Diagnoses / Procedures Referred By Radha t Referred To Contact Optometry / OPHTHALMOLOGY Diagnoses Possible Eye infection post op Procedures EST ADULT Self Madina Barrios, OD [address] [place] [address] Referral ID Status Reason Start Date Expiration Date V isits Requested Visits Authorized [id number] Authorized 07/23/2022 04/10/2023 99 99 Reason Comments Post-op (Ophthalmology) Left Eye s/p cat aract extraction with intraocular lens implantation left eye 06/22/22 Reason Comments Post-op (Ophthalmology) Left Eye -s/p ca taract extraction with intraocular lens implantation left eye 06/22/22 Reason Comments F/U 6 Month Reason Comments Pantographer Exam Reason Comments Follow Up 6 weeks 5 days post visit Right hip pain Specialty Diagnoses / Procedures Referred By Contac t Referred To Contact ORTHOPAEDIC SURGERY Diagnoses Pain in right knee Rt knee swelling and popping Procedures OFFICE/OUTPATIENT ESTABLISHED HIGH MDM 40-54 MIN OFFICE/OUTPATIENT ESTABLISHED MOD MDM 30-39 MIN OFFICE/OUTPATIENT ESTABLISHED LOW MDM 20-29 MIN OFFICE/OUTPATIENT ESTABLISHED SF MDM 10-19 MIN BRENDA 2nd vst ORTH/SPORTS Self Sowmya Beard PA-C [address] [place] [address] Referral ID Status Reason Start Date Expiration Date V isits Requested Visits Authorized [id number] Closed Financial Clearance Required - OON Payor 12/02/2022 04/10/2023 1 1 Reason Comments Consult Biopsy left breast a nd axilla Specialty Diagnoses / Procedures Referred By Harleenac t Referred To Contact General Surgery / GENERAL SURGERY Diagnoses biopsy consultation left axilla lymphadenopathy Procedures EST DDI BREAST Self Concetta Knox MD [address] [place] [address] Referral ID Status Reason Start Date Expiration Date Visits Re quested Visits Authorized [id number] Closed 01/17/2023 04/10/2023 1 1 Reason Comments Patient Question Reason Comments Cough sore throat and righ t ear pain, chills x 4-5 days Reason Comments Follow Up Left axilla stereota ctic biopsy results Specialty Diagnoses / Procedures Referred By Harleenac t Referred To Contact GENERAL SURGERY Diagnoses Encounter for follow-up examination after completed treatment for conditions other than malignant neoplasm Follow up Procedures OFFICE/OUTPATIENT ESTABLISHED HIGH MDM 40-54 MIN EST DDI PATIENT Ilya Monroe MD [address] [place] [address] Concetta Knox MD [address] [place] [address] Referral ID Status Reason Start Date Expiration Date V isits Requested Visits Authorized [id number] Authorized 02/07/2023 04/10/2023 99 99 Reason Comments post BX Left axilla Results A. Lymph node, left axillary, biopsy:- Metastatic carcinoma, consistent with breast primary Specialty Diagnoses / Procedures [facility] Referred To Contact General Surgery / GENERAL SURGERY Diagnoses Metastatic breast cancer to Left axillary lymph node Procedures OFFICE/OUTPATIENT NEW MODERATE MDM 45-59 MINUTES NEW PATIENT Concetta Knox MD [address] [place] [address] Karen Bae MD [address] [place] [address] Referral ID Status Reason Start Date Expiration Date Visits Re quested Visits Authorized [id number] Closed 04/11/2022 04/10/2023 1 1 Reason Comments New Patient Specialty Diagnoses / Procedures [facility] Referred To Contact MR IMAGING Diagnoses 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, left (HCC) Procedures MRI BREAST WO/W IVCON BILATERAL MRI BREAST WITHOUT&WITH CONTRAST W/CAD BILATERAL Karen Bae MD [address] [place] [address] [place] [address] Referral ID Status Reason Start Date Expiration Date V isits Requested Visits Authorized [id number] Closed Auto-Generate d Referral 03/09/2023 04/07/2024 1 1 Reason Comments Patient Navigation Reason Comments Consult Specialty Diagnoses / Procedures [facility] Referred To Contact Radiation Oncology / RADIATION ONCOLOGY Diagnoses 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 Special isolation precautions are in place with signage outside this patient's room. This transition of care specialist performs hand hygiene and enters the patient room wearing: ? gloves ? an appropriately fitting (N-95, PAPR, Aura) mask ? face shield ? protective gown to provide care. See documentation for the care provided. [facility] ED TERESA Note: NAME: Yadiel Florez 63 y.o. CSN: [id number] PCP: Ilya Monroe MD History: Chief Complaint: Cough and Headache HPI: The history was obtained from the patient. Yadiel is a 63 y.o. female who presents with a chief complaint of Cough and Headache. Patient presents with continued productive cough, headache for approximately 10 days at this time. She had a negative cover test on August 20, 2019. Will repeat today. She has tried her nebulizer without relief. Patient denies fever, chills, shortness of breath, nausea vomiting or diarrhea, urinary or bowel symptoms, abdominal pain, diaphoresis or any other associated symptoms. PMHx: Past Medical History: Diagnosis Date Asthma Hypertension PMSx: Past Surgical History: Procedure Laterality Date BREAST CYST EXCISION TUBAL LIGATION FAM. Hx: History reviewed. No pertinent family history. SOC. Hx: Social History Socioeconomic History Marital status: Spouse name: Not on file Number of children: Not on file Years of education: Not on file Highest education level: Not on file Occupational History Not on file Social Needs Financial resource strain: Not on file Food insecurity Worry: Not on file Inability: Not on file Transportation needs Medical: Not on file Non-medical: Not on file Tobacco Use Smoking status: Former Smoker Smokeless tobacco: Never Used Substance and Sexual Activity Alcohol use: Never Frequency: Never Drug use: Never Sexual activity: Not on file Lifestyle Physical activity Days per week: Not on file Minutes per session: Not on file Stress: Not on file Relationships Social connections Talks on phone: Not on file Gets together: Not on file Attends quaker service: Not on file Active member of club or organization: Not on file Attends meetings of clubs or organizations: Not on file Relationship status: Not on file Other Topics Concern Not on file Social History Narrative Not on file MEDs: No current outpatient medications on file prior to encounter. ALL: Allergies Allergen Reactions Shellfish Derived Anaphylaxis Amoxicillin Itching Also yeast infection ROS: Review of Systems Positives and pertinent negatives as per HPI. All other systems were reviewed and are negative. Physical Exam: Patient Vitals for the past 24 hrs: BP Temp Temp src Pulse Resp SpO2 Weight 08/23/19 2207 (!) 167/78 99 F (37.2 C) Oral 78 18 99 % 104.8 kg (231 lb) Physical Exam Vitals signs and nursing note reviewed. Constitutional: Appearance: Normal appearance. She is well-developed. She is not toxic-appearing or diaphoretic. HENT: Head: Normocephalic and atraumatic. Nose: Nose normal. Mouth/Throat: Pharynx: Posterior oropharyngeal erythema (Mild) present. Tonsils: No tonsillar abscesses. Comments: Purulent postnasal drip noted. Eyes: General: No scleral icterus. Conjunctiva/sclera: Conjunctivae normal. Neck: Musculoskeletal: Normal range of motion and neck supple. Cardiovascular: Rate and Rhythm: Normal rate and regular rhythm. Pulses: Normal pulses. Heart sounds: Normal heart sounds. No murmur. Pulmonary: Effort: Pulmonary effort is normal. No respiratory distress. Breath sounds: Normal breath sounds. Comments: Frequent moist cough noted Musculoskeletal: Right lower leg: She exhibits no swelling. No edema. Left lower leg: She exhibits no swelling. No edema. Lymphadenopathy: Head: Right side of head: No tonsillar adenopathy. Left side of head: No tonsillar adenopathy. Skin: General: Skin is warm and dry. Findings: No rash. Neurological: Mental Status: She is alert and oriented to person, place, and time. Psychiatric: Behavior: Behavior normal. Laboratory & Radiological Imaging (if done): Labs Reviewed BASIC METABOLIC PANEL - Abnormal; Notable for the following components: Result Value Anion Gap 8 (*) Glucose 111 (*) All other components within normal limits Narrative: The eGFR should be used for monitoring renal function only and not for medication dosing. CBC WITH AUTO DIFFERENTIAL - Abnormal; Notable for the following components: MPV 8.9 (*) All other components within normal limits RAPID STREP SCREEN - Normal COVID-19, MOLECULAR - Normal PT/INR - Normal Narrative: During the induction phase of oral anticoagulation, the INR may not reflect the anticoagulation status of the patient. Therapeutic ranges for INR's are: Most clinical situations: INR 2.0-3.0 Mechanical Prosthetic Valve: INR 2.5-3.5 Critical: INR >5.0 STREP A CULTURE, THROAT CBC AND DIFFERENTIAL Narrative: The following orders were created for panel order CBC w/ Diff. Procedure Abnormality Status --------- ------ CBC Auto Differential[[id number]] Abnormal Final result Please view results for these tests on the individual orders. XR Chest 1 View Final Result No acute cardiopulmonary disease. Workstation ID: [id number] MDM: Special isolation precautions are in place with signage outside this patient's room. 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 gloves ? an appropriately fitting (N-95, PAPR, Aura) mask ? face shield ? protective gown to obtain HPI and perform bedside physical exam and re- evaluation(s)/interventions as necessary. See provider documentation. ED Course as of Aug 23 102TueAugust 24, 2019 0014 WBC: 6.06 [SS] 0015 RBCs: 4.00 [SS] 0015 HGB: 12.6 [SS] 0015 HCT: 38.7 [SS] 0015 Strep A Ag: Presumptive Negative for Group A Streptococcus [SS] 0015 SODIUM: 141 [SS] 0015 POTASSIUM: 4.3 [SS] 0015 CHLORIDE: 108 [SS] 0015 Bicarbonate: 29 [SS] 0015 FINDINGS: Cardiac size, mediastinal contour and pulmonary vascularity appear within normal limits. The lungs are well expanded and appear clear. IMPRESSION: No acute cardiopulmonary disease. [SS] 0047 SARS-CoV-2: Not Detected [SS] 0047 Discussed findings with patient and plan to treat protracted URI with Augmentin. Patient verbalizes understanding agrees with this plan. [SS] ED Course User Index [SS] Nicole Toledo CNP Clinical Impression: 1. Protracted URI Disposition: Patient is being discharge home. New Prescriptions doxycycline hyclate (VIBRA-TABS) 100 MG tablet Take 1 (one) tablet (100 mg total) by mouth 2 (two) times a day for 10 days . benzonatate (TESSALON) 100 MG capsule Take 2 (two) capsules (200 mg total) by mouth 3 (three) times a day as needed for cough . I[facility] ED Advanced Practice Provider [facility] Emergency Department (Please note that portions of this note have been completed with a voice recognition software. Efforts were made to correct any errors, but occasionally words are mis-transcribed.) Nicole Toledo CNP 08/24/19 0104 Patient was seen here 08/20/2019 for cough, headache. Covid negative at that time. Patient continues to have symptoms. Bed: 04 Expected date: Expected time: Means of arrival: Comments: NEXT PT Special isolation precautions are in place with signage outside this patient's room. This transition of care specialist performs hand hygiene and enters the patient room wearing: ? gloves ? an appropriately fitting (N-95, PAPR, Aura) mask ? face shield ? protective gown to provide care. See documentation for the care provided. documented in this encounter PT'S FAMILY ARRIVED, PT AMBULATORY OUT OF ED WITHOUT DIFFICULTY Pt states she is feeling better then when she arrives, states I have not really been coughing the last couple hours and I dont feel as miserable Pt currently has levaquin IVPB running at this time. Pt will be discharged upon completion of that medication Pt states she is starting to feel better. Lung sounds diminished but clear at this time. Decrease in cough noted. Denies any needs at this time call light in reach Per Dr. Duque ok to take pt off of special isolation due to pt being tested recently for Covid-19 and it being negative ED PROVIDER NOTE [facility] NAME: Yadiel Florez AGE: 63 y.o. : 1955 VISIT DATE: 08/26/2019 CSN: [id number] PCP: Ilya Monroe MD Chief Complaint Patient presents with Emesis Shortness of Breath Cough HPI Patient is a 63-year-old female with history of asthma hypertension presents to the ED with complaints of cough, congestion ,, wheezing nausea vomiting intermittent for few hours today. In the ED patient is awake alert she is answering questions appropriately her initial vital systolic blood pressure 164/68 pulse is 78 pulse ox is 98% on room air she is afebrile 98.7 Fahrenheit. She said she was evaluated in the emergency department few days ago for similar complaints COVID test was negative she was started on doxycycline and Tessalon Perles said has not helped her cough wheezing has become more worsening today. No fevers reported no midsternal chest pain pressure palpitations reported no shortness of breath reported. Denies previous history of AR PE pneumothorax. Past Medical History: Diagnosis Date Asthma Hypertension Past Surgical History: Procedure Laterality Date BREAST CYST EXCISION TUBAL LIGATION History reviewed. No pertinent family history. Social History Socioeconomic History Marital status: Spouse name: Not on file Number of children: Not on file Years of education: Not on file Highest education level: Not on file Occupational History Not on file Social Needs Financial resource strain: Not on file Food insecurity Worry: Not on file Inability: Not on file Transportation needs Medical: Not on file Non-medical: Not on file Tobacco Use Smoking status: Former Smoker Smokeless tobacco: Never Used Substance and Sexual Activity Alcohol use: Never Frequency: Never Drug use: Never Sexual activity: Not on file Lifestyle Physical activity Days per week: Not on file Minutes per session: Not on file Stress: Not on file Relationships Social connections Talks on phone: Not on file Gets together: Not on file Attends quaker service: Not on file Active member of club or organization: Not on file Attends meetings of clubs or organizations: Not on file Relationship status: Not on file Other Topics Concern Not on file Social History Narrative Not on file Previous Medications Medication Sig benzonatate (TESSALON) 100 MG capsule Take 2 (two) capsules (200 mg total) by mouth 3 (three) times a day as needed for cough . doxycycline hyclate (VIBRA-TABS) 100 MG tablet Take 1 (one) tablet (100 mg total) by mouth 2 (two) times a day for 10 days . Allergies Allergen Reactions Shellfish Derived Anaphylaxis Amoxicillin Itching Also yeast infection Review of Systems All other systems reviewed and are negative. Patient Vitals for the past 24 hrs: BP Temp Temp src Pulse Resp SpO2 Height Weight 08/26/19 0315 143/73 67 93 % 08/26/19 0245 143/75 61 97 % 08/26/19 0216 144/77 69 95 % 08/26/19 0200 (!) 157/76 75 94 % 08/26/19 0115 (!) 164/68 98.7 F (37.1 C) Oral 78 (!) 20 98 % 6' 104.8 kg (231 lb) Physical Exam Vitals signs and nursing note reviewed. Constitutional: General: She is not in acute distress. Appearance: She is well-developed. She is not ill-appearing. HENT: Head: Normocephalic and atraumatic. Mouth/Throat: Mouth: Mucous membranes are moist. Pharynx: Oropharynx is clear. Neck: Musculoskeletal: Normal range of motion and neck supple. Thyroid: No thyromegaly. Cardiovascular: Rate and Rhythm: Normal rate and regular rhythm. Pulmonary: Effort: Pulmonary effort is normal. No tachypnea. Breath sounds: Normal breath sounds. Chest: Chest wall: No mass, deformity, tenderness or crepitus. Abdominal: General: Bowel sounds are normal. Palpations: Abdomen is soft. Musculoskeletal: Normal range of motion. Right lower leg: No edema. Left lower leg: No edema. Lymphadenopathy: Cervical: No cervical adenopathy. Skin: General: Skin is warm. Neurological: General: No focal deficit present. Mental Status: She is alert and oriented to person, place, and time. Psychiatric: Mood and Affect: Mood normal. Laboratory & Radiographic Imaging (if done): Results for orders placed or performed during the hospital encounter of 08/26/19 Chem 7 Result Value Ref Range Sodium 140 135 - 145 mmol/L Potassium 3.2 (L) 3.5 - 5.1 mmol/L Chloride 107 98 - 108 mmol/L Bicarbonate 28 21 - 32 mmol/L Creatinine 0.82 0.60 - 1.20 mg/dL Glucose 107 (H) 65 - 99 mg/dL BUN 15 8 - 25 mg/dL eGFR 89 >=60 mL/min/1.73 m2 BUN/Creatinine Ratio 18.3 10.0 - 20.0 Anion Gap 8 (L) 10 - 20 mmol/L Hepatic Function Panel (LFT) Result Value Ref Range Total Protein 6.9 6.0 - 8.0 g/dL Albumin 3.5 3.2 - 5.2 g/dL Total Bilirubin 0.3 0.0 - 1.3 mg/dL Bilirubin, Direct <0.1 0.0 - 0.4 mg/dL Alkaline Phosphatase 68 40 - 150 U/L AST 34 0 - 45 U/L ALT 34 14 - 65 U/L Lipase Result Value Ref Range Lipase 94 73 - 393 U/L Troponin Result Value Ref Range Troponin I 16 <=45 ng/L Troponin I Interpretation Normal CBC Auto Differential Result Value Ref Range WBC 6.08 4.50 - 11.00 K/mcL RBC 3.97 (L) 4.00 - 5.20 M/mcL Hemoglobin 12.5 12.0 - 16.0 g/dL Hematocrit 38.6 36.0 - 46.0 % MCV 97.2 80.0 - 100.0 fL MCH 31.5 26.0 - 34.0 pg MCHC 32.4 31.0 - 37.0 g/dL Platelets 174 150 - 400 K/mcL RDW - CV 12.1 11.6 - 14.8 % MPV 9.0 9.0 - 15.5 fL Neutrophils 44.4 % Lymphocytes 41.8 % Monocytes 6.6 % Eosinophils 6.6 % Basophils 0.3 % IG Percent 0.30 % Neutrophils Abs 2.70 1.70 - 7.00 K/mcL Lymphocytes Abs 2.54 0.90 - 4.00 K/mcL Monocytes Abs 0.40 0.30 - 0.90 K/mcL Eosinophils Abs 0.40 0.00 - 0.50 K/mcL Basophils Abs 0.02 0.00 - 0.30 K/mcL IG Absolute 0.02 0.00 - 0.30 K/mcL Nucleated RBC 0.0 % Nucleated RBC Abs 0.00 0.00 - 0.00 K/mcL XR Chest 1 View Preliminary Result No acute cardiopulmonary abnormality. [employer] Workstation ID: [id number] Procedures MDM Patient is a 64-year-old female history of asthma presents to the ED with complaint of acute asthma exacerbation with wheezing coughing event for few days today. Patient was recently tested for COVID which was unremarkable patient history exam consistent with acute asthma exacerbation for which further work-up has been initiated loading a [employer] basic lab and a chest x-ray for further evaluation of symptom. Will continue to monitor patient review labs images and treat appropriately. Evaluated patient reports symptomatic improvement. labs images chest x-ray concerning for possible bronchopneumonia which patient was given 1 g of IV Rocephin will discharge with prescription for prednisone 20 mg daily for 5 days encourage continue taking doxycycline as prescribed and using inhaler only as needed and PCP follow-up and also to return to the ED for any worsening symptom and she expressed understanding. . Clinical Impression: No diagnosis found. ED Disposition None Follow-up Information Follow-up information has not been specified. Contact information for after-discharge care Follow-up information has not been specified. Penny Duque MD 08/26/19 0345 PT states she has been here a couple different times this past week due to cough and congestions. States she was diagnosed with URI and was given tessalon perles and a steroid. The medications are not helping. States she now is vomiting and the cough is not getting any better. Denies SOB or difficulty breathing Special isolation precautions are in place with signage outside this patient's room. This transition of care specialist performs hand hygiene and enters the patient room wearing: ? gloves ? an appropriately fitting (N-95, PAPR, Aura) mask ? face shield ? protective gown to provide care. See documentation for the care provided. documented in this encounter Pt presents with cough, wheezing *4 days. Has been using nebulizer treatments with no relief. Does have some sob with cough, denies chest pain. Denies fever to her knowledge and contact with covid but cannot say for sure. ED PROVIDER NOTE [facility] NAME: Yadiel Florez AGE: 63 y.o. : 1955 VISIT DATE: 08/20/2019 CSN: [id number] PCP: Ilya Monroe MD Chief Complaint Patient presents with Cough Shortness of Breath This is a 64-year-old -[place] lady with history of bronchial asthma who is on albuterol inhaler at home coming to emergency room with chief complaint of wheezing and productive cough in the past 2 to 3 days. Patient denies shortness of breath for most part except on occasion. However, she does state that she has been using albuterol inhaler at home with no improvement of her symptoms except on a brief occasions. She denies chest pain or chest tightness. She denies fever or chills, sore throat, runny nose, nasal congestion or headache. She says she has been for most part quarantine at home and does not believe she has been exposed to COVID-19. Denies chest pain. Past Medical History: Diagnosis Date Asthma Hypertension Past Surgical History: Procedure Laterality Date BREAST CYST EXCISION TUBAL LIGATION History reviewed. No pertinent family history. Social History Socioeconomic History Marital status: Spouse name: Not on file Number of children: Not on file Years of education: Not on file Highest education level: Not on file Occupational History Not on file Social Needs Financial resource strain: Not on file Food insecurity Worry: Not on file Inability: Not on file Transportation needs Medical: Not on file Non-medical: Not on file Tobacco Use Smoking status: Former Smoker Smokeless tobacco: Never Used Substance and Sexual Activity Alcohol use: Never Frequency: Never Drug use: Never Sexual activity: Not on file Lifestyle Physical activity Days per week: Not on file Minutes per session: Not on file Stress: Not on file Relationships Social connections Talks on phone: Not on file Gets together: Not on file Attends quaker service: Not on file Active member of club or organization: Not on file Attends meetings of clubs or organizations: Not on file Relationship status: Not on file Other Topics Concern Not on file Social History Narrative Not on file No current outpatient medications on file prior to encounter. Allergies Allergen Reactions Shellfish Derived Anaphylaxis Amoxicillin Itching Also yeast infection Review of Systems Respiratory: Positive for cough and wheezing. All other systems reviewed and are negative. Patient Vitals for the past 24 hrs: BP Temp Temp src Pulse Resp SpO2 Height Weight 08/20/19 2145 (!) 157/74 73 16 99 % 08/20/195 147/67 63 (!) 20 99 % 08/20/191939 (!) 161/85 70 08/20/191936 (!) 161/65 73 08/20/191933 (!) 167/92 78 08/20/191930 (!) 169/88 98.5 F (36.9 C) Oral 76 (!) 20 98 % 6' 104.8 kg (231 lb) Physical Exam Vitals signs and nursing note reviewed. Constitutional: General: She is not in acute distress. Appearance: She is not ill-appearing, toxic-appearing or diaphoretic. Interventions: She is not intubated. Neck: Musculoskeletal: Normal range of motion and neck supple. Cardiovascular: Rate and Rhythm: Normal rate and regular rhythm. No extrasystoles are present. Pulses: Normal pulses. No decreased pulses. Heart sounds: Normal heart sounds. No murmur. No friction rub. Pulmonary: Effort: Pulmonary effort is normal. Tachypnea present. No accessory muscle usage or respiratory distress. She is not intubated. Breath sounds: No stridor. Decreased breath sounds and wheezing present. No rhonchi or rales. Chest: Chest wall: No deformity. Abdominal: General: Bowel sounds are normal. Palpations: Abdomen is soft. Tenderness: There is no guarding or rebound. Musculoskeletal: Normal range of motion. Right lower leg: She exhibits no tenderness. No edema. Left lower leg: She exhibits no tenderness. No edema. Skin: General: Skin is warm and dry. Coloration: Skin is not cyanotic or pale. Findings: No ecchymosis, erythema or rash. Nails: There is no clubbing. Neurological: General: No focal deficit present. Mental Status: She is oriented to person, place, and time. Laboratory & Radiographic Imaging (if done): Results for orders placed or performed during the hospital encounter of 08/20/19 COVID-19, Molecular Result Value Ref Range SARS-CoV-2 Not Detected Not Detected XR Chest 1 View Final Result No acute cardiopulmonary disease. [employer] Workstation ID: [id number] Procedures MDM Number of Diagnoses or Management Options Mild asthma with acute exacerbation, unspecified whether persistent: Diagnosis management comments: Patient presents emergency room with acute respiratory symptoms consisting of persistent wheezing and productive cough. She is afebrile. Patient is vitally stable and does not appear to be in respiratory distress. Patient received 2 puffs of albuterol inhaler for possible asthma exacerbation; she states she has bronchitic asthma with some exacerbations in the past. Patient then received DuoNeb. She is telling me the wheezing she feels is much better. Chest x-ray is unremarkable. COVID-19 testing reveals a negative SARS-CoV-2. Patient states she has both albuterol inhaler and nebulizer which she is advised her to use as needed and consult with her primary care physician. . Clinical Impression: 1. Mild asthma with acute exacerbation, unspecified whether persistent ED Disposition ED Disposition Condition Comment Discharge Stable Yadiel Florez discharged to home/self care in stable condition. Follow-up Information Follow-up information has not been specified. Contact information for after-discharge care Follow-up information has not been specified. Jamaal Irvin MD 08/20/19 2214 documented in this encounter ED Attestation Note - Tino Arias MD - 08/24/2019 1:15 AM EDTQuick Note - Karen Liu, TECHNOLOGIST - 08/23/2019 11:59 PM EDT Miscellaneous Notes (unrecog nized section and content) ED Attestation: I was personally available for consult in the emergency department. I have reviewed the chart and agree with the documentation as recorded by the TEREAS (Advanced Practice Provider), including the assessment, treatment plan, and disposition Special isolation precautions are in place with signage outside this patient's room. [id number] performs hand hygiene and enters the patient room wearing: gloves an appropriately fitting (N-95, PAPR, Aura) mask face shield protective gown to obtain xray. [id number] remains clean outside room and sanitizes all xray equipment used to obtain xray documented in this encounter [id number]/gloves [id number]/gloves Pt had mask documented in this encounter [id number]: mask/gloves [id number]: mask/gloves Ran & cleaned equipment Pt had mask documented in this encounter INFORMATION SOURCE (unrecogn ized section and content) DATE CREATED AUTHOR AUTHOR'S ORGANIZ ATION 10/21/2021 [facility] ([place] DATE CREATED AUTHOR AUTHOR'S ORGANIZ ATION 04/18/2023 [facility] DATE CREATED AUTHOR AUTHOR'S ORGANIZ ATION 04/23/2023 [facility] Source Comments (unrecognize d section and content) In the event this informatio n is protected by the Federal Confidentiality of Alcohol and Drug Abuse Patient Records regulations: The Federal rules restrict any use of the information to criminally investigate or prosecute any alcohol or drug abuse patient.[facility] the event this information is protected by the Federal Confidentiality of Alcohol and Drug Abuse Patient Records regulations: The Federal rules restrict any use of the information to criminally investigate or prosecute any alcohol or drug abuse patient.[facility] HospitalIn the event this information is protected by the Federal Confidentiality of Alcohol and Drug Abuse Patient Records regulations: The Federal rules restrict any use of the information to criminally investigate or prosecute any alcohol or drug abuse patient.[facility] HospitalIn the event this information is protected by the Federal Confidentiality of Alcohol and Drug Abuse Patient Records regulations: The Federal rules restrict any use of the information to criminally investigate or prosecute any alcohol or drug abuse patient.[facility] HospitalIn the event this information is protected by the Federal Confidentiality of Alcohol and Drug Abuse Patient Records regulations: The Federal rules restrict any use of the information to criminally investigate or prosecute any alcohol or drug abuse patient.[facility] HospitalIn the event this information is protected by the Federal Confidentiality of Alcohol and Drug Abuse Patient Records regulations: The Federal rules restrict any use of the information to criminally investigate or prosecute any alcohol or drug abuse patient.[facility] HospitalIn the event this information is protected by the Federal Confidentiality of Alcohol and Drug Abuse Patient Records regulations: The Federal rules restrict any use of the information to criminally investigate or prosecute any alcohol or drug abuse patient.[facility] HospitalIn the event this information is protected by the Federal Confidentiality of Alcohol and Drug Abuse Patient Records regulations: The Federal rules restrict any use of the information to criminally investigate or prosecute any alcohol or drug abuse patient.[facility] HospitalIn the event this information is protected by the Federal Confidentiality of Alcohol and Drug Abuse Patient Records regulations: The Federal rules restrict any use of the information to criminally investigate or prosecute any alcohol or drug abuse patient.[facility] HospitalIn the event this information is protected by the Federal Confidentiality of Alcohol and Drug Abuse Patient Records regulations: The Federal rules restrict any use of the information to criminally investigate or prosecute any alcohol or drug abuse patient.[facility] HospitalIn the event this information is protected by the Federal Confidentiality of Alcohol and Drug Abuse Patient Records regulations: The Federal rules restrict any use of the information to criminally investigate or prosecute any alcohol or drug abuse patient.[facility] HospitalIn the event this information is protected by the Federal Confidentiality of Alcohol and Drug Abuse Patient Records regulations: The Federal rules restrict any use of the information to criminally investigate or prosecute any alcohol or drug abuse patient.[facility] HospitalIn the event this information is protected by the Federal Confidentiality of Alcohol and Drug Abuse Patient Records regulations: The Federal rules restrict any use of the information to criminally investigate or prosecute any alcohol or drug abuse patient.[facility] HospitalIn the event this information is protected by the Federal Confidentiality of Alcohol and Drug Abuse Patient Records regulations: The Federal rules restrict any use of the information to criminally investigate or prosecute any alcohol or drug abuse patient.[facility] HospitalIn the event this information is protected by the Federal Confidentiality of Alcohol and Drug Abuse Patient Records regulations: The Federal rules restrict any use of the information to criminally investigate or prosecute any alcohol or drug abuse patient.[facility] HospitalIn the event this information is protected by the Federal Confidentiality of Alcohol and Drug Abuse Patient Records regulations: The Federal rules restrict any use of the information to criminally investigate or prosecute any alcohol or drug abuse patient.[facility] HospitalIn the event this information is protected by the Federal Confidentiality of Alcohol and Drug Abuse Patient Records regulations: The Federal rules restrict any use of the information to criminally investigate or prosecute any alcohol or drug abuse patient.[facility] HospitalIn the event this information is protected by the Federal Confidentiality of Alcohol and Drug Abuse Patient Records regulations: The Federal rules restrict any use of the information to criminally investigate or prosecute any alcohol or drug abuse patient.[facility] HospitalIn the event this information is protected by the Federal Confidentiality of Alcohol and Drug Abuse Patient Records regulations: The Federal rules restrict any use of the information to criminally investigate or prosecute any alcohol or drug abuse patient.[facility] HospitalIn the event this information is protected by the Federal Confidentiality of Alcohol and Drug Abuse Patient Records regulations: The Federal rules restrict any use of the information to criminally investigate or prosecute any alcohol or drug abuse patient.[facility] HospitalIn the event this information is protected by the Federal Confidentiality of Alcohol and Drug Abuse Patient Records regulations: The Federal rules restrict any use of the information to criminally investigate or prosecute any alcohol or drug abuse patient.[facility] HospitalIn the event this information is protected by the Federal Confidentiality of Alcohol and Drug Abuse Patient Records regulations: The Federal rules restrict any use of the information to criminally investigate or prosecute any alcohol or drug abuse patient.[facility] HospitalIn the event this information is protected by the Federal Confidentiality of Alcohol and Drug Abuse Patient Records regulations: The Federal rules restrict any use of the information to criminally investigate or prosecute any alcohol or drug abuse patient.[facility] HospitalIn the event this information is protected by the Federal Confidentiality of Alcohol and Drug Abuse Patient Records regulations: The Federal rules restrict any use of the information to criminally investigate or prosecute any alcohol or drug abuse patient.[facility] HospitalIn the event this information is protected by the Federal Confidentiality of Alcohol and Drug Abuse Patient Records regulations: The Federal rules restrict any use of the information to criminally investigate or prosecute any alcohol or drug abuse patient.[facility] HospitalIn the event this information is protected by the Federal Confidentiality of Alcohol and Drug Abuse Patient Records regulations: The Federal rules restrict any use of the information to criminally investigate or prosecute any alcohol or drug abuse patient.[facility] HospitalIn the event this information is protected by the Federal Confidentiality of Alcohol and Drug Abuse Patient Records regulations: The Federal rules restrict any use of the information to criminally investigate or prosecute any alcohol or drug abuse patient.[facility] HospitalIn the event this information is protected by the Federal Confidentiality of Alcohol and Drug Abuse Patient Records regulations: The Federal rules restrict any use of the information to criminally investigate or prosecute any alcohol or drug abuse patient.[facility] HospitalIn the event this information is protected by the Federal Confidentiality of Alcohol and Drug Abuse Patient Records regulations: The Federal rules restrict any use of the information to criminally investigate or prosecute any alcohol or drug abuse patient.[facility] HospitalIn the event this information is protected by the Federal Confidentiality of Alcohol and Drug Abuse Patient Records regulations: The Federal rules restrict any use of the information to criminally investigate or prosecute any alcohol or drug abuse patient.[facility] HospitalIn the event this information is protected by the Federal Confidentiality of Alcohol and Drug Abuse Patient Records regulations: The Federal rules restrict any use of the information to criminally investigate or prosecute any alcohol or drug abuse patient.[facility] HospitalIn the event this information is protected by the Federal Confidentiality of Alcohol and Drug Abuse Patient Records regulations: The Federal rules restrict any use of the information to criminally investigate or prosecute any alcohol or drug abuse patient.[facility] HospitalIn the event this information is protected by the Federal Confidentiality of Alcohol and Drug Abuse Patient Records regulations: The Federal rules restrict any use of the information to criminally investigate or prosecute any alcohol or drug abuse patient.[facility] HospitalIn the event this information is protected by the Federal Confidentiality of Alcohol and Drug Abuse Patient Records regulations: The Federal rules restrict any use of the information to criminally investigate or prosecute any alcohol or drug abuse patient.[facility] HospitalIn the event this information is protected by the Federal Confidentiality of Alcohol and Drug Abuse Patient Records regulations: The Federal rules restrict any use of the information to criminally investigate or prosecute any alcohol or drug abuse patient.[facility] HospitalIn the event this information is protected by the Federal Confidentiality of Alcohol and Drug Abuse Patient Records regulations: The Federal rules restrict any use of the information to criminally investigate or prosecute any alcohol or drug abuse patient.[facility] HospitalIn the event this information is protected by the Federal Confidentiality of Alcohol and Drug Abuse Patient Records regulations: The Federal rules restrict any use of the information to criminally investigate or prosecute any alcohol or drug abuse patient.[facility] HospitalIn the event this information is protected by the Federal Confidentiality of Alcohol and Drug Abuse Patient Records regulations: The Federal rules restrict any use of the information to criminally investigate or prosecute any alcohol or drug abuse patient.[facility] HospitalIn the event this information is protected by the Federal Confidentiality of Alcohol and Drug Abuse Patient Records regulations: The Federal rules restrict any use of the information to criminally investigate or prosecute any alcohol or drug abuse patient.[facility] HospitalIn the event this information is protected by the Federal Confidentiality of Alcohol and Drug Abuse Patient Records regulations: The Federal rules restrict any use of the information to criminally investigate or prosecute any alcohol or drug abuse patient.[facility] HospitalIn the event this information is protected by the Federal Confidentiality of Alcohol and Drug Abuse Patient Records regulations: The Federal rules restrict any use of the information to criminally investigate or prosecute any alcohol or drug abuse patient.[facility] HospitalIn the event this information is protected by the Federal Confidentiality of Alcohol and Drug Abuse Patient Records regulations: The Federal rules restrict any use of the information to criminally investigate or prosecute any alcohol or drug abuse patient.[facility] HospitalIn the event this information is protected by the Federal Confidentiality of Alcohol and Drug Abuse Patient Records regulations: The Federal rules restrict any use of the information to criminally investigate or prosecute any alcohol or drug abuse patient.[facility] HospitalIn the event this information is protected by the Federal Confidentiality of Alcohol and Drug Abuse Patient Records regulations: The Federal rules restrict any use of the information to criminally investigate or prosecute any alcohol or drug abuse patient.[facility] HospitalIn the event this information is protected by the Federal Confidentiality of Alcohol and Drug Abuse Patient Records regulations: The Federal rules restrict any use of the information to criminally investigate or prosecute any alcohol or drug abuse patient.[facility] HospitalIn the event this information is protected by the Federal Confidentiality of Alcohol and Drug Abuse Patient Records regulations: The Federal rules restrict any use of the information to criminally investigate or prosecute any alcohol or drug abuse patient.[facility] HospitalIn the event this information is protected by the Federal Confidentiality of Alcohol and Drug Abuse Patient Records regulations: The Federal rules restrict any use of the information to criminally investigate or prosecute any alcohol or drug abuse patient.[facility] HospitalIn the event this information is protected by the Federal Confidentiality of Alcohol and Drug Abuse Patient Records regulations: The Federal rules restrict any use of the information to criminally investigate or prosecute any alcohol or drug abuse patient.[facility] Care Teams (unrecognized sec tion and content) Manager Retail Store Relationship Specialty Start Date End Date Ilya Monroe MD [facility] [place] [address] PCP - General Internal Medicine 05/09/15 Manager Retail Store Relationship Specialty Start Date End Date Ilya Monroe MD [address] [place] [address] [place] [address] PCP - General Internal Medicine 05/09/15 Manager Retail Store Relationship Specialty Start Date End Date Ilya Monroe MD [address] [place] [address] [place] [address] PCP - General Internal Medicine 05/09/15 Manager Retail Store Relationship Specialty Start Date End Date Ilya Monroe MD [address] [place] [address], [place] [address] PCP - General Internal Medicine 05/09/15 Manager Retail Store Relationship Specialty Start Date End Date Ilya Monroe MD [address] [place] [address], [place] [address] PCP - General Internal Medicine 05/09/15 Manager Retail Store Relationship Specialty Start Date End Date Ilya Monroe MD [address] [place] [address], [place] [address] PCP - General Internal Medicine 05/09/15 Manager Retail Store Relationship Specialty Start Date End Date Ilya Monroe MD [address] [place] [address], [place] [address] PCP - General Internal Medicine 05/09/15 Manager Retail Store Relationship Specialty Start Date End Date Ilya Monroe MD [address] [place] [address], [place] [address] PCP - General Internal Medicine 05/09/15 Manager Retail Store Relationship Specialty Start Date End Date Ilya Monroe MD [address] [place] [address], [place] [address] PCP - General Internal Medicine 05/09/15 Manager Retail Store Relationship Specialty Start Date End Date Ilya Monroe MD [address] [place] [address], [place] [address] PCP - General Internal Medicine 05/09/15 Manager Retail Store Relationship Specialty Start Date End Date Ilya Monroe MD [address] [place] [address], [place] [address] PCP - General Internal Medicine 05/09/15 Manager Retail Store Relationship Specialty Start Date End Date Ilya Monroe MD [address] [place] [address], [place] [address] PCP - General Internal Medicine 05/09/15 Manager Retail Store Relationship Specialty Start Date End Date Ilya Monroe MD [address] [place] [address], [place] [address] PCP - General Internal Medicine 05/09/15 Manager Retail Store Relationship Specialty Start Date End Date Ilya Monroe MD [address] [place] [address], [place] [address] PCP - General Internal Medicine 05/09/15 Manager Retail Store Relationship Specialty Start Date End Date Ilya Monroe MD [address] [place] [address], [place] [address] PCP - General Internal Medicine 05/09/15 Manager Retail Store Relationship Specialty Start Date End Date Ilya Monroe MD [address] [place] [address] PCP - General Internal Medicine 05/09/15 Manager Retail Store Relationship Specialty Start Date End Date Ilya Monroe MD [address] [place] [address] PCP - General Internal Medicine 05/09/15 Manager Retail Store Relationship Specialty Start Date End Date Ilya Monroe MD [facility] [place] [address] PCP - General Internal Medicine 05/09/15 Manager Retail Store Relationship Specialty Start Date End Date Ilya Monroe MD [address] [place] [address], [place] [address] PCP - General Internal Medicine 05/09/15 Manager Retail Store Relationship Specialty Start Date End Date Ilya Monroe MD [facility] [place] [address] PCP - General Internal Medicine 05/09/15 Manager Retail Store Relationship Specialty Start Date End Date Ilya Monroe MD [address] [place] [address], [place] [address] PCP - General Internal Medicine 05/09/15 Manager Retail Store Relationship Specialty Start Date End Date Ilya Monroe MD [address] [place] [address], [place] [address] PCP - General Internal Medicine 05/09/15 Manager Retail Store Relationship Specialty Start Date End Date Ilya Monroe MD [address] [place] [address], [place] [address] PCP - General Internal Medicine 05/09/15 Manager Retail Store Relationship Specialty Start Date End Date Ilya Monroe MD [address] [place] [address], [place] [address] PCP - General Internal Medicine 05/09/15 Manager Retail Store Relationship Specialty Start Date End Date Ilya Monroe MD [address] [place] [address] PCP - General Internal Medicine 05/09/15 Manager Retail Store Relationship Specialty Start Date End Date Ilya Monroe MD [address] [place] [address] PCP - General Internal Medicine 05/09/15 Manager Retail Store Relationship Specialty Start Date End Date Ilya Monroe MD [address] [place] [address] PCP - General Internal Medicine 05/09/15 Manager Retail Store Relationship Specialty Start Date End Date Ilya Monroe MD [address] [place] [address] PCP - General Internal Medicine 05/09/15 Manager Retail Store Relationship Specialty Start Date End Date Ilya Monroe MD [address] [place] [address] PCP - General Internal Medicine 05/09/15 Manager Retail Store Relationship Specialty Start Date End Date Ilya Monroe MD [address] [place] [address] PCP - General Internal Medicine 05/09/15 Ema Knox [address] [facility] [address] [place] [address] Hematology/Oncology 02/01/23 Manager Retail Store Relationship Specialty Start Date End Date Ilya Monroe MD [address] [place] [address] PCP - General Internal Medicine 05/09/15 Ema Knox [address] [place] [address] Hematology/Oncology 02/01/23 Manager Retail Store Relationship Specialty Start Date End Date Ilya Monroe MD [address] [place] [address] PCP - General Internal Medicine 05/09/15 Ema Knox [address] [place] [address] Hematology/Oncology 02/01/23 Manager Retail Store Relationship Specialty Start Date End Date Ilya Monroe MD [address] [place] [address] PCP - General Internal Medicine 05/09/15 Ema Knox [address] [place] [address] Hematology/Oncology 02/01/23 Manager Retail Store Relationship Specialty Start Date End Date Ilya Monroe MD [address] [place] [address] PCP - General Internal Medicine 05/09/15 Ema Knox [address] [place] [address] Hematology/Oncology 02/01/23 Manager Retail Store Relationship Specialty Start Date End Date Ilya Monroe MD [address] [place] [address] PCP - General Internal Medicine 05/09/15 Ema Knox [address] [place] [address] Hematology/Oncology 02/01/23 Manager Retail Store Relationship Specialty Start Date End Date Ilya Monroe MD [address] [place] [address] PCP - General Internal Medicine 05/09/15 Ema Knox [address] [place] [address] Hematology/Oncology 02/01/23 Manager Retail Store Relationship Specialty Start Date End Date Ilya Monroe MD [address] [place] [address] PCP - General Internal Medicine 05/09/15 Ema Knox [address] [place] [address] Hematology/Oncology 02/01/23 Manager Retail Store Relationship Specialty Start Date End Date Ilya Monroe MD [address] [place] [address] PCP - General Internal Medicine 05/09/15 Ema Knox [address] [place] [address] Hematology/Oncology 02/01/23 Eveline Griffin MD, [address] [place] [address] Radiation Oncology 03/22/23 Manager Retail Store Relationship Specialty Start Date End Date Ilya Monroe MD [address] [place] [address] PCP - General Internal Medicine 05/09/15 Ema Knox [address] [facility] [address] [place] [address] Hematology/Oncology 02/01/23 Eveline Griffin MD, [address] [facility] [address] Radiation Oncology 03/22/23 FOR RECORDS PERTAINING TO PATIENTS WHO ARE OR HAVE BEEN ENROLLED IN A CHEMICAL DEPENDENCY/SUBSTANCEABUSE PROGRAM, SOME INFORMATION MAY BE OMITTED. This clinical summary was aggregated from multiple sources. Caution should be exercised in using it in the provision of clinical care. This summary normalizes information from multiple sources, and as a consequence, information in this document may materially change the coding, format and clinical context of patient data. In addition, data may be omitted in some cases. CLINICAL DECISIONS SHOULD BE BASED ON THE PRIMARY CLINICAL RECORDS. [employer] [facility]. provides no warranty or guarantee of the accuracy or completeness of information in this document.
[2023-04-29 09:09] LABS: AST(SGOT) 18 U/L (15-37); Alanine Aminotransfer ALT/SGPT 29 U/L (13-56); Cholesterol 121 mg/dL (200); High Density Lipoprotein 53 mg/dL; Triglycerides 62 mg/dL; Very Low Density Lipoprotein 12 mg/dL (5-40)
== END | disposition home or self-care (01) ==
LOC: LAB 08:19
PROVIDERS: PCP Internal Medicine; Referring Provider Internal Medicine Cardiovascular Disease; Visit Provider Internal Medicine Cardiovascular Disease
DX: I10 Essential (primary) hypertension (principal); I35.8 Other nonrheumatic aortic valve disorders; E78.5 Hyperlipidemia, unspecified; I25.10 Atherosclerotic heart disease of native coronary artery without angina pectoris
CPT/HCPCS: 36415; 80061; 84450; 84460

== ENCOUNTER → 2023-06-30 | Outpatient (CLI) | payer MEDICARE, SELFPAY ==
--- NOTE | 2023-06-30 13:48 | ECHOD_ITS ---
Reason For Study: Dyspnea/SOB Procedure This was a 2D Doppler, Color Flow transthoracic echocardiogram. Myocardial strain analysis was performed in this exam to aid in the assessment of cardiac function. Exam performed in department. Left Ventricle Normal size and thickness. The global longitudinal strain = -18.4 % (normal). The left ventricular ejection fraction is 65 %. Normal diastology for age. Right Ventricle Normal right ventricle. Atria The left atrium is mildly enlarged. Normal right atrium. Mitral Valve Trivial mitral valve insufficiency. Tricuspid Valve Trivial tricuspid valve insufficiency. Normal pulmonary artery pressure. Aortic Valve Trisinus/trileaflet aortic valve. Pulmonic Valve The pulmonic valve is not well visualized. Great Vessels Normal sized aortic root. MMode/2D Measurements & Calculations LVIDd: 4.5 cm IVSd: 1.0 cm Ao root diam: 3.2 cm LVIDs: 2.8 cm LVPWd: 0.86 cm LA dimension: 4.0 cm FS: 36.9 % LAV(MOD-bp): 53.6 ml LVAd ap4: 26.1 cm2 SV(MOD-sp4): 51.5 ml LAV(MOD-sp2): 51.0 ml LVLd ap4: 7.2 cm LAV(MOD-sp4): 50.3 ml EDV(MOD-sp4): 79.6 ml EDV(sp4-el): 80.1 ml LVAs ap4: 13.8 cm2 LVLs ap4: 6.1 cm ESV(MOD-sp4): 28.1 ml ESV(sp4-el): 26.3 ml EF(MOD-sp4): 64.7 % EF(sp4-el): 67.1 % SV(sp4-el): 53.7 ml LA A4 area: 18.5 cm2 RA A4 area: 14.8 cm2 TAPSE: 1.8 cm Time Measurements MV dec time: 0.17 sec Doppler Measurements & Calculations MV E max brett: 73.9 cm/sec Lat Peak E' Brett: 12.9 cm/sec Med Peak E' Brett: 8.0 cm/sec MV A max brett: 81.1 cm/sec E/E' lat: 5.7 E/E' med: 9.2 MV E/A: 0.91 MV V2 max: 109.2 cm/sec MV P1/2t max brett: 97.9 cm/sec Ao V2 max: 139.9 cm/sec MV max P.8 mmHg MV P1/2t: 57.3 msec Ao max P.8 mmHg MV V2 mean: 49.3 cm/sec MV dec slope: 500.5 cm/sec2 Ao V2 mean: 98.2 cm/sec MV mean P.3 mmHg Ao mean P.4 mmHg MV V2 VTI: 29.6 cm MVA(P1/2t): 3.8 cm2 Ao V2 VTI: 34.1 cm AV (velocity ratio): 0.76 LV V1 max: 114.1 cm/sec PA V2 max: 81.1 cm/sec TR max brett: 206.5 cm/sec LV V1 max P.2 mmHg TR max P.1 mmHg LV V1 mean P.9 mmHg LV V1 mean: 78.3 cm/sec LV V1 VTI: 25.9 cm ECHO/Echo Complete Interpretation Summary The left ventricular ejection fraction is 65 %. The left atrium is mildly enlarged. Ordering Physician: Kelvin Jones Referring Physician: Alaina Tariq M.D. Performed By: Matteo Valdez RCS
== END | disposition home or self-care (01) ==
LOC: CVS 13:48
PROVIDERS: PCP Internal Medicine; Referring Provider Internal Medicine Cardiovascular Disease; Visit Provider Internal Medicine Cardiovascular Disease
DX: R06.09 Other forms of dyspnea (principal)
CPT/HCPCS: 93306

== ENCOUNTER → 2023-12-21 | Outpatient (CLI) | payer MEDICARE, SELFPAY ==
--- NOTE | 2023-12-21 11:40 | RAD_ITS ---
PROCEDURE: Fluoroscopic guided Hip Injection DATE: December 21, 2023. INDICATION: Female, 68 years old. Chronic right hip pain. PHYSICIAN: Gal Aparicio M.D. MEDICATIONS: 80 mg of Kenalog and 3 cc of 1% lidocaine. 2% lidocaine administered subcutaneously for local anesthesia. ACCESS SITE: Right hip. NEEDLE: 22-gauge spinal needle. FLUOROSCOPY TIME (if supplied): (0:26) minutes/seconds.. 10.6 mGy. 2 fluoroscopic images were obtained. FINDINGS: The risks, benefits, and alternatives to the procedure were explained to the patient. The specific risks of bleeding, infection, and neurovascular injury were detailed and accepted. Witnessed informed consent was obtained. A 22-gauge spinal needle was positioned under radiograph fluoroscopic localization. Approximately 2 cc of Isovue-300 instilled for localization purposes. Medication was then injected. The patient tolerated the procedure well without any immediate complications. RAD/Inj/Asp Antoine Jt Should/Hip/Knee IMPRESSION: 1. Successful fluoroscopic guided hip injection. Electronically Signed: Gal Aparicio MD at 12:46 EDT ,
[2023-12-21] MEDS: Lidocaine 2% (5ml sdv) 5 ML VIAL.MPF INFILT (11:55)
== END | disposition home or self-care (01) ==
LOC: RAD 11:25
PROVIDERS: PCP Internal Medicine; Referring Provider Physician Assistant; Visit Provider Physician Assistant
DX: M16.11 Unilateral primary osteoarthritis, right hip (principal)
CPT/HCPCS: 20610; 77002

== ENCOUNTER 2024-03-23 21:13 | Emergency (ER) | payer MEDICARE, SELFPAY ==
[2024-03-23 21:14] VITALS: BP 157/75; PULSE 69; RESP 18; TEMP 37; O2SAT 95; BMI 33.3
--- NOTE | 2024-03-23 21:35 | EX.ED.DYSGE1 ---
HPI History of Present Illness Chief Complaint: General Illness Informant: patient and spouse/S.O. Narrative Narrative: Here with spouse concerning worsening cough day 5. Initial fever and chills for 2 days. Saw primary care office 3 days ago treated for sinus infection. Placed on antibiotic, steroids and Flonase. Symptoms continued. Occasional wheezing. History of asthma. Prediabetic. No chest pains no abdominal pain. No vomiting. Initial diarrhea that resolved. Tolerant oral fluids. No urinary symptoms. Sick contacts with people at [facility] states some people had pneumonia. [facility] Medical History Breast cancer Coronary artery disease Dyslipidemia Aortic valve sclerosis Near syncope Hyperlipidemia History of left heart catheterization (LHC) (~06/03/21) Atherosclerotic heart disease of [place] coronary artery without angina pectoris Abnormal stress test Unstable angina Depression Anxiety Hypertension Migraines Bradycardia Pneumonia due to COVID-19 virus Acute respiratory failure with hypoxia Hypoxemia COVID-19 COVID-19 GERD (gastroesophageal reflux disease) Heart murmur Hearing problem Cataract Back problem Asthma Arthritis Allergies Bronchitis Dysuria Urinary urgency Acquired stenosis of urethral meatus Essential hypertension PND (post-nasal drip) Dyspnea on exertion Fibrocystic breast disease External hemorrhoid, thrombosed Lymphocytosis Leukopenia Fibrocystic breast disease Former smoker Family history of cardiovascular disease Asthma GERD (gastroesophageal reflux disease) Fibromyalgia Obesity (BMI 30.0-34.9) Sciatica Home Medications ?Medication ?Instructions ?Recorded ?Last Taken ?Type citalopram 40 mg tablet (Celexa) 40 mg PO DAILY mental health 11/07/18 06/02/21 History gabapentin 600 mg tablet 600 mg PO QHS PRN nerve pain 11/07/18 Unknown History gabapentin 100 mg capsule 100 mg PO DAILY PRN nerve pain 01/06/19 Unknown History albuterol sulfate 2.5 mg/3 mL 2.5 mg (3 mL) inhalation Q4H PRN 02/07/19 Unknown Rx (0.083 %) solution for nebulization Sob &/Or Wheezing #180 mL pantoprazole 40 mg tablet,delayed 40 mg PO DAILY PRN reflux 09/12/19 2 Days Ago History release ~05/31/21 fluticasone propionate 50 1 spray intranasal BID PRN 05/04/20 Unknown History mcg/actuation nasal Congestion spray,suspension cholecalciferol (vitamin D3) 125 125 mcg PO DAILY vitamin 06/02/21 06/02/21 History mcg (5,000 unit) capsule dicyclomine 20 mg tablet 20 mg PO TID PRN abdominal 05/10/22 Unknown Rx cramping #20 tabs hydrocodone-acetaminophen 5-325mg 1 tab PO Q4H PRN PRN Pain 3 days 12/14/22 Unknown Rx 5mg-325mg #10 TABLETS anastrozole 1 mg tablet mg PO 04/28/23 Unknown History albuterol sulfate 90 mcg/actuation 2 puff inhalation Q4H PRN 07/08/23 Unknown Rx aerosol inhaler (Ventolin HFA) shortness of breath or wheezing #1 device budesonide-formoterol HFA 160 2 puff inhalation BID #1 ea 07/08/23 Unknown Rx mcg-4.5 mcg/actuation aerosol inhaler (Symbicort) montelukast 10 mg tablet 10 mg PO DAILY allergies #90 tabs 07/08/23 Unknown Rx (Singulair) amlodipine 2.5 mg tablet (Norvasc) 2.5 mg PO DAILY #90 tabs 11/23/23 Unknown Rx atorvastatin 40 mg tablet 40 mg PO QHS #90 tabs 11/23/23 Unknown Rx azelastine 137 mcg (0.1 %) nasal 2 spray intranasal BID PRN 11/23/23 Unknown History spray hydrochlorothiazide 12.5 mg capsule 12.5 mg PO DAILY diuretic #90 caps 11/23/23 Unknown Rx isosorbide mononitrate 60 mg 60 mg PO DAILY #90 tabs 11/23/23 Unknown Rx tablet,extended release 24 hr losartan 25 mg tablet 25 mg PO DAILY blood pressure #90 11/23/23 Unknown Rx tabs multivitamin (Daily Multi-Vitamin 1 tab PO DAILY 11/23/23 Unknown History tablet) palbociclib 125 mg capsule 125 mg PO DAILY 11/23/23 Unknown History (Ibrance) prednisone 20 mg tablet 60 mg (3 x 20 mg) PO QDAY #15 tabs 01/11/24 Unknown Rx doxycycline monohydrate 100 mg 100 mg PO BID #6 CAPSULES 03/23/24 Unknown Rx capsule Allergy/AdvReac Type Severity Reaction Status Date / Time apple Allergy Hives Verified 03/23/24 21:13 banana Allergy Hives Verified 03/23/24 21:13 carrot Allergy Hives Verified 03/23/24 21:13 pineapple Allergy Itching Verified 03/23/24 21:13 shellfish derived (lobster) Allergy Anaphylaxis Verified 03/23/24 21:13 shrimp Allergy Anaphylaxis Verified 03/23/24 21:13 amoxicillin AdvReac YEAST Verified 03/23/24 21:13 INFECTION Family History Sister Breast cancer Mother Heart disease Enlarged heart Hx of CABG CABG x 4. Rheumatoid arthritis Grandmother Enlarged heart Father Diabetes Other Anxiety and depression Arthritis History of blood clots Hypertension Surgical History H/O tubal ligation Hx of appendectomy History of removal of cyst Social History household members: spouse Smoking Status: Former smoker quit date: 04/11/93 alcohol intake: current alcohol intake frequency: holidays/special occasions only Alcohol type: wine details: social substance use type: does not use caffeine: No additional social history: Does take aspirin daily Does not take Ibuprofen ROS ROS ED Constitutional Constitutional ED: Reports chills and fever(s); Denies sweats Eyes Eyes: Denies change in vision ENT ENT ED: Denies dysphagia or sore throat Cardiovascular Cardiovascular: Denies chest pain, leg edema, palpitations or racing heartbeat Respiratory/Chest Respiratory/Chest: Reports cough; Denies dyspnea or dyspnea on exertion Gastrointestinal Gastrointestinal: Denies abdominal pain, diarrhea, nausea or vomiting Genitourinary Genitourinary ED: Denies dysuria, hematuria or urinary frequency Musculoskeletal Musculoskeletal: Denies back pain, extremity pain or neck pain Integumentary Denies rash or wounds Neurologic Neurologic: Denies headache(s), paresthesias or weakness EXAM Physical Exam Const Vital Signs: 03/23/24 21:14 03/23/24 21:28 03/23/24 22:50 Temperature 98.6 F Temperature Source Temporal Pulse Rate 69 57 L Respiratory Rate 18 18 Respiratory Effort Normal Non-Labored Respiratory Pattern Normal Blood Pressure 157/75 H 144/74 H Blood Pressure Mean 102 97 Pulse Ox 95 98 Oxygen Delivery Method Room Air Room Air Positive well nourished and well developed General Appearance ED: well developed and NAD HEENT Reports moist mucous membranes normocephalic and atraumatic Eyes EOMs intact bilaterally and conjunctivae normal General Eye ED: Yes normal appearance of both eyes Neck no lymphadenopathy and supple General: Negative for tenderness Chest Wall Chest: Negative for tenderness Resp normal respiratory effort and normal air movement Effort and Inspection: symmetric chest movement; Negative for respiratory distress Cardio regular rate, regular rhythm and no murmurs Peripheral Pulses: pulses 2+ throughout GI normal to inspection, nondistended, normoactive bowel sounds and non-tender Palpation: Negative for guarding or rebound tenderness present Back/Spine no CVA tenderness and no thoracic nor lumbar tenderness Extremity normal to inspection General Extremety ED: Negative for edema or tenderness General Extremity: Negative for edema Neuro oriented x3 and no sensory deficits noted Sensorium / Orientation: awake and alert Skin no rashes or lesions noted and no wounds MDM MDM MDM Narrative Medical decision making narrative: Interventions / MDM: Differential diagnosis: Pneumonia, history of asthma Diagnosis considered but do not suspect: N/A My EKG interpretation: N/A Imaging independently reviewed and interpreted by myself: 2 view chest x-ray: Perihilar infiltrate External documents reviewed: N/A Test considered but not ordered:N/A ED course: Patient continued cough and wheeze. History of asthma. She is on steroids. No current wheezing on exam. Afebrile vital stable. Viral swabs sent along 2 view chest x-ray ordered for further evaluation. 2300: Labs slight neutropenia white count 2.1. Creatinine 1.03. Hemoglobin 0.2. COVID, influenza, RSV negative. Two-view chest x-ray concerning for perihilar infiltrate. Vitals remained stable pulse ox stable. Reviewing her medicines she brought she is on doxycycline for 7 days. I discussed this is appropriate for her pneumonia treatment. I discussed how extended 10 days. She will finish her steroids. Glucose was slightly elevated to 2 2 1. Anion gap is normal. She has inhaler at home. Discussed return precautions. Discussed cough can last up to 2 to 3 weeks. All questions were answered. Re-evaluation: stable Disposition discussed with patient/family/significant other: Patient and significant other Case discussed with consulting clinician: N/A This note was generated with [employer] dictation software. It may contain incorrect words, spelling, and punctuation that were not noted in checking the note before signing. Lab Data Attestation: I reviewed the patient's lab results. Labs: Laboratory Results - last 24 hr 03/23/24 21:35 WBC 2.1 L RBC 3.10 L Hgb 11.2 L Hct 31.3 L MCV 101.0 H MCH 36.1 H MCHC 35.8 RDW Std Deviation 47.8 H RDW Coeff of Domi 13.0 Plt Count 185 MPV 9.3 Immature Gran % (Auto) 0.500 Neut % (Auto) 70.9 H Lymph % (Auto) 24.3 [place] % (Auto) 3.8 Eos % (Auto) 0.0 Baso % (Auto) 0.5 Absolute Neuts (auto) 1.5 L Absolute Lymphs (auto) 0.51 L Nucleated RBC % 0 Differential Comment SEE COMMENT Diff Path Review May foll Atypical Lymphocytes 2+ Reactive Lymphocytes 1+ Platelet Estimate ADEQUATE RBC Morphology N CHROM Anisocytosis 1+ Macrocytosis 1+ Ovalocytes RARE Sodium 138 Potassium 3.4 L Chloride 103 Carbon Dioxide 28.0 Anion Gap 8 BUN 10 Creatinine 1.03 H Estim Creat Clear Calc 70.52 Est GFR (MDRD) Af Amer 69 Est GFR (MDRD) Non-Af 57 L BUN/Creatinine Ratio 9.7 L Glucose 221 H Calcium 8.6 Radiography Diagnostic Testing: Clinical Impression(s) from Imaging Studies Chest X-Ray 03/23/24 21:45 IMPRESSION: Possible new Mild perihilar interstitial infiltrates Electronically Signed: Alfredo Arevalo MD at 22:32 EST Reading Location ID and State: [address] [place] [address] Tel , Service support , Discharge Plan Triage Chief Complaint: General Illness ED Provider: Corona Agee Dx/Rx/DC Orders Clinical Impression: Pneumonia, Asthma, Cough Instructions: ED Pneumonia (Adult), Asthma Prescriptions: New doxycycline monohydrate 100 mg capsule 100 mg PO BID Qty: 6 0RF No Action citalopram [Celexa] 40 mg tablet 40 mg PO DAILY gabapentin 600 mg tablet 600 mg PO QHS PRN (Reason: nerve pain) albuterol sulfate 2.5 mg /3 mL (0.083 %) solution for nebulization 2.5 mg INHALATION Q4H PRN (Reason: Sob &/Or Wheezing) Qty: 180 3RF anastrozole 1 mg tablet PO Patient Comments: Take 1 tablet by mouth once daily. albuterol sulfate [Ventolin HFA] 90 mcg/actuation HFA aerosol inhaler 2 puff INHALATION Q4H PRN (Reason: shortness of breath or wheezing) Qty: 1 3RF budesonide-formoterol [Symbicort] 160-4.5 mcg/actuation HFA aerosol inhaler 2 puff inhalation BID Qty: 1 6RF Rx Instructions: administer with spacer, rinse mouth after each use montelukast [Singulair] 10 mg tablet 10 mg PO DAILY Qty: 90 3RF multivitamin [Daily Multi-Vitamin] Tablet 1 tab PO DAILY Ibrance 125 mg capsule 125 mg PO DAILY Rx Instructions: administer on days 1 through 21 of a 28-day treatment cycle azelastine 137 mcg (0.1 %) spray,non-aerosol 2 spray intranasal BID PRN Rx Instructions: administer into each nostril atorvastatin 40 mg tablet 40 mg PO QHS Qty: 90 3RF hydrochlorothiazide 12.5 mg capsule 12.5 mg PO DAILY Qty: 90 3RF isosorbide mononitrate 60 mg tablet extended release 24 hr 60 mg PO DAILY Qty: 90 3RF losartan 25 mg tablet 25 mg PO DAILY Qty: 90 3RF amlodipine [Norvasc] 2.5 mg tablet 2.5 mg PO DAILY Qty: 90 3RF gabapentin 100 MG capsule 100 mg PO DAILY PRN (Reason: nerve pain) pantoprazole 40 MG tablet,delayed release (DR/EC) 40 mg PO DAILY PRN (Reason: reflux) fluticasone propionate 16 GM spray,suspension 1 spray INTRANASAL BID PRN (Reason: Congestion) cholecalciferol (vitamin D3) 125 mcg (5,000 unit) Capsule 125 mcg PO DAILY dicyclomine 20 mg tablet 20 mg PO TID PRN (Reason: abdominal cramping) Qty: 20 0RF hydrocodone-acetaminophen 5-325 mg tablet 1 tab PO Q4H PRN PRN (Reason: Pain) 3 Days Qty: 10 0RF prednisone 20 mg tablet 60 mg PO QDAY Qty: 15 0RF Rx Instructions: administer with food or milk Primary Care Provider: Alaina Tariq Referrals: Alaina Tariq MD [Primary Care Provider] - 1-2 Weeks Activity Restrictions/Additional Instructions: Chest x-ray perihilar infiltrates. Take additional 3 more days of your doxycycline. Continue your inhaler, take your steroids to your asthma. Follow-up your doctor. If you develop worsening respiratory symptoms unable to catch her breath, return to ED for reevaluation. Print Language: Hungarian Disposition Disposition: Home, Self Care Discharge Date/Time: 03/23/24 23:26
--- NOTE | 2024-03-23 21:45 | RAD_ITS ---
STUDY: X-RAY CHEST REASON FOR EXAM: Female, 68 years old. cough TECHNIQUE: Single frontal view of the chest. COMPARISON: January FINDINGS: Possible new mild perihilar interstitial infiltrate. There is no demonstrated pleural abnormality. Normal size heart. Normal mediastinum and mary. Normal visualized pulmonary arteries. Normal visualized aortic arch and descending thoracic aorta. Normal visualized thoracic spine. Normal visualized ribs, clavicles, and shoulders. There is no demonstrated abnormality of the visualized soft tissue structures of the upper abdomen. RAD/Chest PA and Lateral IMPRESSION: Possible new Mild perihilar interstitial infiltrates Electronically Signed: Alfredo Arevalo MD at 22:32 EST ,
[2024-03-23 21:49] LABS: Absolute Lymphocyte Count 0.51 X10^3/uL (0.83-4.51); Absolute Neutrophil Count 1.5 X10^3/uL (2.0-7.7); Basophil# 0.01 X10^3/uL; Basophil% 0.5 % (0-1); Hematocrit 31.3 % (37-47); Hemoglobin 11.2 g/dL (12.0-15.0); Lymphocyte # 0.51 X10^3/ul (0.83-4.51); Lymphocyte % 24.3 % (19-41); Mean Corp Hgb Conc 35.8 g/dL (32-36); Mean Corpuscular Hgb 36.1 pg (27.0-32.0); Mean Platelet Vol. 9.3 fl (6.2-12.0); Monocyte# 0.08 X10^3/uL; Monocyte% 3.8 % (0-10); NRBC Flagged by Analyzer 0 % (0-5); Neutrophil # 1.49 X10^3/uL (2.7-7.7); Neutrophil % 70.9 % (47-70); POSITIVE DIFFERENTIAL YES; POSITIVE MORPHOLOGY YES; Platelet Count 185 K/mm3 (150-450); RBC Distribution Width SD 47.8 fl (35.1-43.9); White Blood Count 2.1 K/mm3 (4.4-11.0)
[2024-03-23 22:11] LABS: Anion Gap 8 (5-15); BUN 10 mg/dL (7-18); BUN/Creat Ratio 9.7 RATIO (10-20); Calcium,Total 8.6 mg/dL (8.5-10.1); Chloride 103 mmol/L (98-107); Creatinine, Serum 1.03 mg/dL (0.55-1.02); EST Glomerular Filtration Rate 57 mL/min (>60); Est Glom Filt Rate - Afr Amer 69 mL/min (>60); Estimated Creatinine Clearance 70.52 ml/min; Glucose 221 mg/dL (74-106); Potassium 3.4 mmol/L (3.5-5.1); Sodium Level 138 mmol/L (136-145)
[2024-03-23 22:14] LABS: Differential Indicated SCAN CRITERIA MET
[2024-03-23 22:16] LABS: Anisocytosis 1+; Atypical Lymphocyte 2+ %; Macrocytosis 1+; Ovalocyte RARE; Platelet Estimate ADEQUATE (ADEQ); Reactive Lymphocyte 1+; Red Cell Morphology N CHROM NORMAL (NORM C&C)
[2024-03-23 22:50] VITALS: BP 144/74; PULSE 57; RESP 18; O2SAT 98
[2024-03-23 23:26] VITALS: BP 135/65; PULSE 71; RESP 16; TEMP 36.6; O2SAT 98
[2024-03-27 15:12] LABS: Pathologist Review Reviewed
== END 2024-03-23 23:26 | disposition home or self-care (01) ==
PROVIDERS: Emergency Provider Emergency Medicine; PCP Internal Medicine; Visit Provider Emergency Medicine
DX: J18.9 Pneumonia, unspecified organism (principal); R73.03 Prediabetes; I10 Essential (primary) hypertension; I25.10 Atherosclerotic heart disease of native coronary artery without angina pectoris; J45.909 Unspecified asthma, uncomplicated; Z87.891 Personal history of nicotine dependence; E78.5 Hyperlipidemia, unspecified; R05.9 Cough, unspecified; K21.9 Gastro-esophageal reflux disease without esophagitis
CPT/HCPCS: 71046; 80048; 85025; 87631; 99283

== ENCOUNTER → 2024-06-18 | Outpatient (CLI) | payer MEDICARE, SELFPAY ==
--- NOTE | 2024-06-18 09:00 | RAD_ITS ---
PROCEDURE: ESOPHAGUS DUAL CONTRAST REASON FOR EXAM: Worsening gastroesophageal reflux. TECHNIQUE: The patient ingested barium. Multiple fluoroscopic images of the esophagus were obtained. COMPARISON: None. FINDINGS: The esophagus is unremarkable. No evidence of mass lesion. No evidence of obstruction. No evidence of gastroesophageal reflux. The patient ingested a 12 mm tablet of barium without any difficulty. RAD/Esophagus Dual Contrast IMPRESSION: Unremarkable examination. Reading Location: [facility]
== END | disposition home or self-care (01) ==
LOC: RAD 08:46
PROVIDERS: PCP Internal Medicine; Referring Provider Internal Medicine Gastroenterology; Visit Provider Internal Medicine Gastroenterology
DX: R13.10 Dysphagia, unspecified (principal)
CPT/HCPCS: 74221

== ENCOUNTER 2024-09-09 13:21 | Emergency (ER) | payer MEDICARE, SELFPAY ==
[2024-09-09 13:21] VITALS: BP 134/70; PULSE 60; RESP 16; TEMP 36.9; O2SAT 97; BMI 33.4
--- NOTE | 2024-09-09 13:38 | CT_ITS ---
PROCEDURE: BRAIN/HEAD WITHOUT CONTRAST 09/09/2024 REASON FOR EXAM: HEADACHE TECHNIQUE: Head CT without intravenous contrast. Coronal and Sagittal reconstruction series were provided. One or more dose reduction techniques were used (e.g., Automated exposure control, adjustment of the mA and/or kV according to patient size, use of iterative reconstruction technique. RADIATION DOSE SUMMARY: CTDlvol: 44.99 mGy DLP: 829.85 mGycm COMPARISON: 01/15/2023. FINDINGS: The ventricles are normal in size and midline in position. No evidence of acute hemorrhage or infarction. No extra-axial blood or fluid collections. Paranasal sinuses are clear. The mastoid air cells are well aerated. The calvarial vault and skull base are intact. CT/Brain/Head without Contrast IMPRESSION: No acute intracranial abnormality. Reading Location: [place] [id number]
--- NOTE | 2024-09-09 13:40 | EDS_ITS ---
HPI <ADELAIDA Painter - Last Filed: 09/09/24 16:06> History of Present Illness Chief Complaint: Headache Narrative Narrative: 69-year-old female with past medical history of hypertension, breast cancer on oral chemotherapy presents with a gradual onset right-sided headache x 6 days. It involves the entire right side of her head. It is constant and nothing seems to make it better or worse. Tylenol has not helped. She states she avoids NSAIDs but is not sure why. She is not on blood thinners. She has no visual or speech changes. No fever or chills. No nausea or vomiting. No focal motor or sensory changes. She had migraines as a teenager but no significant headache or migraine history since. PFS <ADELAIDA Painter - Last Filed: 09/09/24 16:06> [facility] Medical History Breast cancer Coronary artery disease Dyslipidemia Aortic valve sclerosis Near syncope Hyperlipidemia History of left heart catheterization (LHC) (~06/03/21) Atherosclerotic heart disease of [place] coronary artery without angina pectoris Abnormal stress test Unstable angina Depression Anxiety Hypertension Migraines Bradycardia Pneumonia due to COVID-19 virus Acute respiratory failure with hypoxia Hypoxemia COVID-19 COVID-19 GERD (gastroesophageal reflux disease) Heart murmur Hearing problem Cataract Back problem Asthma Arthritis Allergies Bronchitis Dysuria Urinary urgency Acquired stenosis of urethral meatus Essential hypertension PND (post-nasal drip) Dyspnea on exertion Fibrocystic breast disease External hemorrhoid, thrombosed Lymphocytosis Leukopenia Fibrocystic breast disease Former smoker Family history of cardiovascular disease Asthma GERD (gastroesophageal reflux disease) Fibromyalgia Obesity (BMI 30.0-34.9) Sciatica Home Medications ?Medication ?Instructions ?Recorded ?Last Taken ?Type citalopram 40 mg tablet (Celexa) 40 mg PO DAILY mental health 11/07/18 06/02/21 History gabapentin 600 mg tablet 600 mg PO QHS PRN nerve pain 11/07/18 Unknown History gabapentin 100 mg capsule 100 mg PO DAILY nerve pain 0 01/06/19 Unknown History albuterol sulfate 2.5 mg/3 mL 2.5 mg (3 mL) inhalation Q4H PRN 02/07/19 Unknown Rx (0.083 %) solution for nebulization Sob &/Or Wheezing #180 mL fluticasone propionate 50 1 spray intranasal BID PRN 0 05/04/20 Unknown History mcg/actuation nasal Congestion spray,suspension cholecalciferol (vitamin D3) 125 125 mcg PO DAILY supriya min 06/02/21 06/02/21 History mcg (5,000 unit) capsule dicyclomine 20 mg tablet 20 mg PO TID PRN abdominal 0 05/10/22 Unknown Rx cramping #20 tabs anastrozole 1 mg tablet 1 mg PO DAILY cancer 4 Unknown History albuterol sulfate 90 mcg/actuation 2 puff inhalation Q 4H PRN 07/08/23 Unknown Rx aerosol inhaler (Ventolin HFA) shortness of breath or wheezing #1 device amlodipine 2.5 mg tablet (Norvasc) 2.5 mg PO DAILY #90 tabs 11/23/23 Unknown Rx atorvastatin 40 mg tablet 40 mg PO QHS #90 tabs Unknown Rx azelastine 137 mcg (0.1 %) nasal 2 spray intranasal BI D PRN nasal 11/23/23 Unknown History spray congestion hydrochlorothiazide 12.5 mg capsule 12.5 mg PO DAILY d iuretic #90 caps 11/23/23 Unknown Rx losartan 25 mg tablet 25 mg PO DAILY blood pressur e #90 11/23/23 Unknown Rx tabs multivitamin (Daily Multi-Vitamin 1 tab PO DAILY 11/22 Unknown History tablet) palbociclib 125 mg capsule 125 mg PO DAILY 11/23/23 Un known History (Ibrance) isosorbide mononitrate 60 mg 60 mg PO DAILY #90 tabs 0 08/02/24 Unknown Rx tablet,extended release 24 hr budesonide-formoterol HFA 160 2 puff inhalation BID GA N asthma 08/09/24 Unknown History mcg-4.5 mcg/actuation aerosol inhaler (Symbicort) montelukast 10 mg tablet 10 mg PO DAILY allergies #90 tabs 08/09/24 Unknown Rx (Singulair) pantoprazole 40 mg tablet,delayed 40 mg PO BID reflux 08/09/24 Unknown History release elderberry fruit 200 mg capsule 200 mg PO DAILY Unknown History Allergy/AdvReac Type Severity Reaction Status Date / Time apple Allergy Hives Verified 09/09/24 13:21 banana Allergy Hives Verified 09/09/24 13:21 carrot Allergy Hives Verified 09/09/24 13:21 pineapple Allergy Itching Verified 09/09/24 13:21 shellfish derived (lobster) Allergy Anaphylaxis Verified 09/09/24 13:21 shrimp Allergy Anaphylaxis Verified 09/09/24 13:21 amoxicillin AdvReac YEAST Verified 09/09/24 13:21 INFECTION Family History Sister Breast cancer Mother Heart disease Enlarged heart Hx of CABG CABG x 4. Rheumatoid arthritis Grandmother Enlarged heart Father Diabetes Other Anxiety and depression Arthritis History of blood clots Hypertension Surgical History H/O tubal ligation Hx of appendectomy History of removal of cyst Social History household members: spouse Smoking Status: Former smoker quit date: 04/11/93 alcohol intake: current alcohol intake frequency: holidays/special occasions only Alcohol type: wine details: social substance use type: does not use caffeine: No additional social history: Does take aspirin daily Does not take Ibuprofen ROS <ADELAIDA Painter - Last Filed: 09/09/24 16:06> ROS ED ROS Narrative Constitutional: Negative for fever, chills, malaise. Eyes: Negative for visual change. GI: Negative for nausea, vomiting. Neuro: Positive for headache, negative for motor/sensory dysfunction. EXAM <ADELAIDA Painter - Last Filed: 09/09/24 16:06> Physical Exam Narrative Exam Narrative: CONST: Patient sitting in no acute distress. EYES: Normal inspection. PERRL, EOMI. ENT: Moist mucous membranes, normal posterior oropharynx. Nares clear. No temporal artery tenderness. NECK: Normal inspection. No meningismus. RESP: No respiratory distress, CTAB. CVS: Regular rate and rhythm, no murmur, no gallop. SKIN: Color normal, no rash, warm, dry, intact. EXTREMITIES: Normal appearance, no pedal edema. NEURO: Alert and answering questions appropriately. CN II through XII grossly intact. 5/5 upper and lower extremity strength, normal to finger-nose bilaterally. PSYCH: Normal affect. Const Vital Signs: 09/09/24 13:21 09/09/24 14:57 09/09/24 15:47 Temperature 98.4 F 97.9 F Temperature Source Oral Pulse Rate 60 50 L 115 H Respiratory Rate 16 18 18 Blood Pressure 134/70 H 174/78 H 152/70 H Blood Pressure Mean 91 110 97 Pulse Ox 97 98 96 Oxygen Delivery Method Room Air Room Air <Dr. Junito Gurrola DO - Last Filed: 09/09/24 15:31> Physical Exam Const Vital Signs: 09/09/24 13:21 09/09/24 14:57 09/09/24 15:47 Temperature 98.4 F 97.9 F Temperature Source Oral Pulse Rate 60 50 L 115 H Respiratory Rate 16 18 18 Blood Pressure 134/70 H 174/78 H 152/70 H Blood Pressure Mean 91 110 97 Pulse Ox 97 98 96 Oxygen Delivery Method Room Air Room Air MDM <ADELAIDA Painter - Last Filed: 09/09/24 16:06> [facility] MDM Narrative Medical decision making narrative: Differential includes but not limited to tension headache, migraine headache, intracranial hemorrhage or tumor, temporal arteritis I have personally performed a face to face assessment of the patient and have reviewed the TERESA Note. I performed a substantive portion of the visit including all aspects of the following. My cruz findings include: History is [patient presents the emergency department complaint of a headache for 1 week. Gradual onset. Seems to be off-and-on but really does not never completely goes away. Currently rates her headache a 9 out of 10 and is mostly right-sided. She used to have migraines when she was younger about the age of 20 she stopped having migraines. She denies fall or head injury. She denies recent illness. No history of brain tumors or aneurysms.] Exam is [HEENT-PERRLA, EOMI. Cranial nerves II through XII grossly intact. TMs clear. Mucous membranes moist. No adenopathy. Cardiovascular-regular rate and rhythm without murmur or ectopy Lungs-clear to auscultation, chest wall stable without crepitus or subcu emphysema Abdomen-normoactive bowel sounds, soft, nontender, no rebound or rigidity, no peritoneal signs. Neuro genn-iaoxyj-emjm and heel larry testing within normal limits, negative Romberg, negative Fundi benign Extremities-intact ?4, normal range of motion, normal pulses, atraumatic] Medical Decision Making [patient treated with Reglan, Benadryl, and Toradol and had good pain relief with that. CT scan of the brain without contrast was unremarkable. CTA head and neck was negative for aneurysm or dissection or other acute process. She has no tenderness over the temporal artery. There is no skin changes to the scalp noted. No signs of shingles. At this point I suspect possibly migraine. Will give her 10 mg of Decadron IV. She is comfo rtable going home. She is advised to follow-up with her primary care physician within next 3 to 5 days.] Other additions or changes: [None] Radiography Diagnostic Testing: Clinical Impression(s) from Imaging Studies Brain CT 09/09/24 13:38 IMPRESSION: No acute intracranial abnormality. Reading Location: [id number] Head/Neck CTA 09/09/24 14:01 IMPRESSION: No large vessel occlusion, AVM or aneurysm. Reading Location: [id number] <Dr. Junito Gurrola, DO - Last Filed: 09/09/24 15:31> [facility] MDM Narrative Medical decision making narrative: I have personally performed a face to face assessment of the patient and have reviewed the TERESA Note. I performed a substantive portion of the visit including all aspects of the following. My cruz findings include: History is [patient presents the emergency department complaint of a headache for 1 week. Gradual onset. Seems to be off-and-on but really does not never completely goes away. Currently rates her headache a 9 out of 10 and is mostly right-sided. She used to have migraines when she was younger about the age of 20 she stopped having migraines. She denies fall or head injury. She denies recent illness. No history of brain tumors or aneurysms.] Exam is [HEENT-PERRLA, EOMI. Cranial nerves II through XII grossly intact. TMs clear. Mucous membranes moist. No adenopathy. Cardiovascular-regular rate and rhythm without murmur or ectopy Lungs-clear to auscultation, chest wall stable without crepitus or subcu emphysema Abdomen-normoactive bowel sounds, soft, nontender, no rebound or rigidity, no peritoneal signs. Neuro pxmv-mzhnen-doxm and heel larry testing within normal limits, negative Romberg, negative , Fundi benign Extremities-intact ?4, normal range of motion, normal pulses, atraumatic] Medical Decison Making [patient treated with Reglan, Benadryl, and Toradol and had good pain relief with that. CT scan of the brain without contrast was unremarkable. CTA head and neck was negative for aneurysm or dissection or other acute process. She has no tenderness over the temporal artery. There is no skin changes to the scalp noted. No signs of shingles. At this point I suspect possibly migraine. Will give her 10 mg of Decadron IV. She is comfor table going home. She is advised to follow-up with her primary care physician within next 3 to 5 days.] Other additions or changes: [None] Lab Data Attestation: I reviewed the patient's lab results. Radiography Diagnostic Testing: Clinical Impression(s) from Imaging Studies Brain CT 09/09/24 13:38 IMPRESSION: No acute intracranial abnormality. Reading Location: [id number] Head/Neck CTA 09/09/24 14:01 IMPRESSION: No large vessel occlusion, AVM or aneurysm. Reading Location: [id number] Discharge Plan Triage Chief Complaint: Headache ED Midlevel Provider: Ema Cox ED Provider: Junito Gurrola Dx/Rx/DC Orders Clinical Impression: Headache Instructions: Self-Care for Headaches Prescriptions: No Action citalopram [Celexa] 40 mg tablet 40 mg PO DAILY gabapentin 600 mg tablet 600 mg PO QHS PRN (Reason: nerve pain) albuterol sulfate 2.5 mg /3 mL (0.083 %) solution for nebulization 2.5 mg INHALATION Q4H PRN (Reason: Sob &/Or Wheezing) Qty: 180 3RF anastrozole 1 mg tablet 1 mg PO DAILY Patient Comments: Take 1 tablet by mouth once daily. albuterol sulfate [Ventolin HFA] 90 mcg/actuation HFA aerosol inhaler 2 puff INHALATION Q4H PRN (Reason: shortness of breath or wheezing) Qty: 1 3RF multivitamin [Daily Multi-Vitamin] Tablet 1 tab PO DAILY Ibrance 125 mg capsule 125 mg PO DAILY Rx Instructions: administer on days 1 through 21 of a 28-day treatment cycle azelastine 137 mcg (0.1 %) spray,non-aerosol 2 spray intranasal BID PRN (Reason: nasal congestion) Rx Instructions: administer into each nostril atorvastatin 40 mg tablet 40 mg PO QHS Qty: 90 3RF hydrochlorothiazide 12.5 mg capsule 12.5 mg PO DAILY Qty: 90 3RF losartan 25 mg tablet 25 mg PO DAILY Qty: 90 3RF amlodipine [Norvasc] 2.5 mg tablet 2.5 mg PO DAILY Qty: 90 3RF budesonide-formoterol [Symbicort] 160-4.5 mcg/actuation HFA aerosol inhaler 2 puff inhalation BID PRN (Reason: asthma) Rx Instructions: administer with spacer, rinse mouth after each use montelukast [Singulair] 10 mg tablet 10 mg PO DAILY Qty: 90 3RF gabapentin 100 MG capsule 100 mg PO DAILY pantoprazole 40 mg tablet,delayed release (DR/EC) 40 mg PO BID fluticasone propionate 16 GM spray,suspension 1 spray INTRANASAL BID PRN (Reason: Congestion) cholecalciferol (vitamin D3) 125 mcg (5,000 unit) Capsule 125 mcg PO DAILY dicyclomine 20 mg tablet 20 mg PO TID PRN (Reason: abdominal cramping) Qty: 20 0RF elderberry fruit 200 mg capsule 200 mg PO DAILY isosorbide mononitrate 60 mg tablet extended release 24 hr 60 mg PO DAILY Qty: 90 3RF Primary Care Provider: Alaina Tariq Referrals: Alaina Tariq MD [Primary Care Provider] - Activity Restrictions/Additional Instructions: Continue Tylenol or Motrin as needed. Follow-up with your primary care doctor. If your symptoms worsen please come back to the ER. Print Language: Portuguese Disposition Disposition: Home, Self Care Discharge Date/Time: 09/09/24 16:04
--- NOTE | 2024-09-09 14:01 | CT_ITS ---
PROCEDURE: CTA HEAD AND NECK W/ CONTRAST 09/09/2024 REASON FOR EXAM: HEADACHE TECHNIQUE: CTA imaging of the head and neck from the aortic arch to the skull vertex with intravenous contrast. Coronal and Sagittal reconstruction series were provided. 3D, 3D post processing, 3D reconstructions, Maximum intensity projection (MIPs) Volume rendering and Shaded surface rendering was provided. CONTRAST: Isovue 370 VOLUME: 100mL One or more dose reduction techniques were used (e.g., Automated exposure control, adjustment of the mA and/or kV according to patient size, use of iterative reconstruction technique). RADIATION DOSE SUMMARY: CTDlvol: 50 mGy DLP: 700 mGycm COMPARISON: Same-day noncontrast CT head. CTA head and neck 01/15/2023. FINDINGS: See same day noncontrast CT head for discussion of nonvascular findings. CTA neck: Two-vessel aortic arch. The bilateral vertebral arteries are widely patent. Calcific plaque of the bilateral cervical carotid arteries without focal narrowing by NASCET criteria. CTA head: Calcific plaque of the bilateral carotid siphons without focal narrowing. The bilateral anterior, middle and posterior cerebral arteries are widely patent. No aneurysm or AVM. Major venous structures: Unremarkable. Other findings: Cervical spondylosis. Biapical atelectasis/scarring. CT/CTA Head AND Neck W/ Contrast IMPRESSION: No large vessel occlusion, AVM or aneurysm. Reading Location: [id number]
[2024-09-09] MEDS: DiphenhydrAMINE 50 MG/ML Syringe 25 MG IV (14:10)
[2024-09-09] MEDS: 0.9% Normal Saline (1000mL) 1,000 ML 999 ML IV (14:10)
[2024-09-09] MEDS: Metoclopramide 10 MG/2 ML Vial 5 MG IV (14:10)
[2024-09-09] MEDS: Ketorolac 15 MG/ML Vial IV (14:55)
[2024-09-09 14:57] VITALS: BP 174/78; PULSE 50; RESP 18; O2SAT 98
[2024-09-09] MEDS: dexAMETHasone 10 MG/ML Vial IV (15:46)
[2024-09-09 15:47] VITALS: BP 152/70; PULSE 115; RESP 18; TEMP 36.6; O2SAT 96
== END 2024-09-09 16:04 | disposition home or self-care (01) ==
PROVIDERS: Emergency Provider Emergency Medicine; PCP Internal Medicine; Visit Provider Emergency Medicine
DX: R51.9 Headache, unspecified (principal); I25.10 Atherosclerotic heart disease of native coronary artery without angina pectoris; E78.5 Hyperlipidemia, unspecified; Z87.891 Personal history of nicotine dependence; I10 Essential (primary) hypertension; K21.9 Gastro-esophageal reflux disease without esophagitis; J45.909 Unspecified asthma, uncomplicated
CPT/HCPCS: 70450; 70496; 70498; 96361; 96374; 96375; 99283; Q9967; A4216

== ENCOUNTER 2024-10-09 11:17 | Emergency (ER) | payer MEDICARE, SELFPAY ==
[2024-10-09 11:18] VITALS: BP 140/68; PULSE 65; RESP 14; TEMP 36.6; O2SAT 98; BMI 33.5
--- NOTE | 2024-10-09 11:27 | EKG12_ITS ---
Test Reason : SOB Blood Pressure : */* mmHG Vent. Rate : 62 BPM Atrial Rate : 62 BPM P-R Int : 188 ms QRS Dur : 82 ms QT Int : 416 ms P-R-T Axes : 70 90 85 degrees QTcB Int : 422 ms Normal sinus rhythm Rightward axis T wave abnormality, consider anterior ischemia Abnormal ECG Confirmed by RAI SUÁREZ, LENKA ([id number]), editorial director BIRDIE LERMA ([id number]) on 10/10/2024 1:44:35 PM Referred By: Confirmed By: LENKA ATWOOD MD
--- NOTE | 2024-10-09 11:47 | CT_ITS ---
PROCEDURE: ABDOMEN/PELVIS W IV CONT ONLY 10/09/2024 REASON FOR EXAM: RIGHT SIDE ABDOMINAL PAIN. PRIOR APPENDECTOMY TECHNIQUE: ABDOMEN/PELVIS W IV CONT ONLY Coronal and Sagittal reconstruction series were provided. CONTRAST: 96 cc Isovue-300 One or more dose reduction techniques were used (e.g., Automated exposure control, adjustment of the mA and/or kV according to patient size, use of iterative reconstruction technique. RADIATION DOSE SUMMARY: DLP: 1191.41 mGycm COMPARISON: May 10, 2022 FINDINGS: Lung bases: There is minimal atelectasis or scar at the right and left lung base. Liver: Unremarkable Gallbladder: Unremarkable Spleen: Unremarkable Pancreas: Unremarkable Adrenals: Unremarkable Kidneys: Unremarkable Bladder: Not distended Reproductive Organs: Unremarkable Bowel: There is a moderate stool load. Small bowel loops are nondistended. Appendix: Surgically absent Lymph nodes: There is no pathologic adenopathy by size criteria. Vasculature: Atherosclerotic calcifications are noted. Peritoneum / Retroperitoneum: There is no free air or free fluid. Bones: There is irregular blastic disease in the right medial acetabulum, right and left pubic symphysis, and scattered blastic foci in the lower thoracic and lumbar spine with a 0.6 cm focus in the posterior T9 vertebral body, 0.8 cm focus in posterior L1 vertebral body, suspicious for blastic metastatic disease. There is a lytic lesion in the left iliac measuring 1.9 x 1.3 cm, axial image 93/139. CT/Abdomen/Pelvis W IV Cont ONLY IMPRESSION: There is irregular blastic disease in the right medial acetabulum, right and le ft pubic symphysis, and scattered blastic foci in the lower thoracic and lumbar spine with a 0.6 cm focus in the posterior T9 brando tebral body, 0.8 cm focus in posterior L1 vertebral body, suspicious for blastic metastatic disease. Correlation with wh ole-body bone scan is recommended. No acute abnormality is identified in the abdomen or pelvis. Critical results were discussed with Dr. Mckinney by Dr. Preston at the time o f dictation. Reading Location: [facility]
--- NOTE | 2024-10-09 11:50 | ED.VIS.GI ---
HPI HPI - GI History of Present Illness Chief Complaint: Shortness of Breath Detail of Chief Complaint: Patient denies shortness of breath. She is here for abdominal pain. Informant: patient Abdominal Pain/Flank Pain Onset: Days Context: Gradual Onset Timing: Continuous Quality: Aching Location: RUQ and - (Upper abdomen. Diffuse. Primarily right upper quadrant.) Current Severity: Mild Maximum Severity: Mild Worsened by: Nothing Relieved by: Nothing Nausea/Vomiting/Emesis GI Symptom: Positive for Nausea; Negative for Vomiting Onset: Days Severity: Mild Diarrhea/Melena/Hematochezia GI Symptom: Negative for Diarrhea, Melena or Hematochezia Associated Symptoms Associated Symptoms: Negative for Dysuria, Frequency, Hematuria or Urgency Narrative Narrative: 69-year-old female history of breast cancer with metastases treated since 2022 currently on oral chemotherapy. Prior appendectomy. Still has her gallbladder. History of hypertension also. Patient states she just feels generally weak. She is having diffuse abdominal pain primarily right upper quadrant since last week. Associated nausea no vomiting or fever. No change with food. No dysuria. Prior similar symptoms: No Recent Illness/Hospitalization: No PFSH PFSH Medical History Breast cancer Coronary artery disease Dyslipidemia Aortic valve sclerosis Near syncope Hyperlipidemia History of left heart catheterization (LHC) (~06/03/21) Atherosclerotic heart disease of [place] coronary artery without angina pectoris Abnormal stress test Unstable angina Depression Anxiety Hypertension Migraines Bradycardia Pneumonia due to COVID-19 virus Acute respiratory failure with hypoxia Hypoxemia COVID-19 COVID-19 GERD (gastroesophageal reflux disease) Heart murmur Hearing problem Cataract Back problem Asthma Arthritis Allergies Bronchitis Dysuria Urinary urgency Acquired stenosis of urethral meatus Essential hypertension PND (post-nasal drip) Dyspnea on exertion Fibrocystic breast disease External hemorrhoid, thrombosed Lymphocytosis Leukopenia Fibrocystic breast disease Former smoker Family history of cardiovascular disease Asthma GERD (gastroesophageal reflux disease) Fibromyalgia Obesity (BMI 30.0-34.9) Sciatica Home Medications ?Medication ?Instructions ?Recorded ?Last Taken ?Type citalopram 40 mg tablet (Celexa) 40 mg PO DAILY mental health 11/07/18 06/02/21 History gabapentin 600 mg tablet 600 mg PO QHS PRN nerve pain 11/07/18 Unknown History gabapentin 100 mg capsule 100 mg PO DAILY nerve pain 01/06/19 Unknown History albuterol sulfate 2.5 mg/3 mL 2.5 mg (3 mL) inhalation Q4H PRN 02/07/19 Unknown Rx (0.083 %) solution for nebulization Sob &/Or Wheezing #180 mL fluticasone propionate 50 1 spray intranasal BID PRN 05/04/20 Unknown History mcg/actuation nasal Congestion spray,suspension cholecalciferol (vitamin D3) 125 125 mcg PO DAILY vitamin 06/02/21 06/02/21 History mcg (5,000 unit) capsule dicyclomine 20 mg tablet 20 mg PO TID PRN abdominal 05/10/22 Unknown Rx cramping #20 tabs anastrozole 1 mg tablet 1 mg PO DAILY cancer 04/28/23 Unknown History albuterol sulfate 90 mcg/actuation 2 puff inhalation Q4H PRN 07/08/23 Unknown Rx aerosol inhaler (Ventolin HFA) shortness of breath or wheezing #1 device amlodipine 2.5 mg tablet (Norvasc) 2.5 mg PO DAILY #90 tabs 11/23/23 Unknown Rx atorvastatin 40 mg tablet 40 mg PO QHS #90 tabs 11/23/23 Unknown Rx azelastine 137 mcg (0.1 %) nasal 2 spray intranasal BID PRN nasal 11/23/23 Unknown History spray congestion hydrochlorothiazide 12.5 mg capsule 12.5 mg PO DAILY diuretic #90 caps 11/23/23 Unknown Rx losartan 25 mg tablet 25 mg PO DAILY blood pressure #90 11/23/23 Unknown Rx tabs multivitamin (Daily Multi-Vitamin 1 tab PO DAILY 11/23/23 Unknown History tablet) palbociclib 125 mg capsule 125 mg PO DAILY 11/23/23 Unknown History (Ibrance) isosorbide mononitrate 60 mg 60 mg PO DAILY #90 tabs 08/02/24 Unknown Rx tablet,extended release 24 hr budesonide-formoterol HFA 160 2 puff inhalation BID PRN asthma 08/09/24 Unknown History mcg-4.5 mcg/actuation aerosol inhaler (Symbicort) montelukast 10 mg tablet 10 mg PO DAILY allergies #90 tabs 08/09/24 Unknown Rx (Singulair) pantoprazole 40 mg tablet,delayed 40 mg PO BID reflux 08/09/24 Unknown History release elderberry fruit 200 mg capsule 200 mg PO DAILY 09/09/24 Unknown History oxycodone-acetaminophen 5 mg-325 1 tab PO Q6H PRN pain 4 days #14 10/09/24 Unknown Rx mg tablet (Percocet) tabs Allergy/AdvReac Type Severity Reaction Status Date / Time apple Allergy Hives Verified 10/09/24 11:18 banana Allergy Hives Verified 10/09/24 11:18 carrot Allergy Hives Verified 10/09/24 11:18 pineapple Allergy Itching Verified 10/09/24 11:18 shellfish derived (lobster) Allergy Anaphylaxis Verified 10/09/24 11:18 shrimp Allergy Anaphylaxis Verified 10/09/24 11:18 amoxicillin AdvReac YEAST Verified 10/09/24 11:18 INFECTION Family History Sister Breast cancer Mother Heart disease Enlarged heart Hx of CABG CABG x 4. Rheumatoid arthritis Grandmother Enlarged heart Father Diabetes Other Anxiety and depression Arthritis History of blood clots Hypertension Surgical History H/O tubal ligation Hx of appendectomy History of removal of cyst Social History household members: spouse Smoking Status: Former smoker quit date: 04/11/93 alcohol intake: current alcohol intake frequency: holidays/special occasions only Alcohol type: wine details: social substance use type: does not use caffeine: No additional social history: Does take aspirin daily Does not take Ibuprofen ROS ROS ED ROS Narrative Abdominal pain. Nausea. No vomiting. No diarrhea. No dysuria. Constitutional Constitutional ED: Denies chills or fever(s) ENT ENT ED: Denies ear pain Cardiovascular Cardiovascular: Denies chest pain Respiratory/Chest Respiratory/Chest: Denies cough or dyspnea Gastrointestinal Gastrointestinal: Reports abdominal pain and nausea; Denies constipation, diarrhea, melena or vomiting Genitourinary Genitourinary ED: Denies dysuria or hematuria Musculoskeletal Musculoskeletal: Denies arthralgias or back pain Integumentary Denies abscess or Abrasions Neurologic Neurologic: Denies headache(s) Psychiatric Psychiatric: Denies anxiety Endocrine Endocrinology: Denies polydipsia Hematologic/Lymphatic Hematologic/Lymphatic: Denies easy bleeding, easy bruising or lymphadenopathy Allergic/Immunologic Allergic/Immunologic ED: Denies mouth swelling, tongue swelling or urticaria EXAM Physical Exam Narrative Exam Narrative: 69-year-old female sitting upright in bed. No distress. at bedside. Vital signs stable afebrile. Pulse ox 98% on room air no hypoxia. H EENT exam pupils round react light. Moist pink members. Neck nontender no JVD. No lymphadenopathy. Lungs clear to auscultation bilaterally. Heart regular rhythm rate about 65 no murmur. Chest wall ribs nontender. Abdomen soft nondistended normal bowel sounds without peritoneal signs. She does have right upper quadrant tenderness with deep palpation. No Wilson sign. Right lower quadrant nontender. Left side of the abdomen nontender. No hernia or mass. No distention. No pulsatile mass. Soft. Moving all 4 extremities. Nontender no edema. Normal strength. Back nontender. Neurologically she is awake alert answering questions and following commands. Const Vital Signs: 10/09/24 11:18 10/09/24 12:06 10/09/24 13:18 Temperature 97.9 F Temperature Source Temporal Pulse Rate 65 55 L Respiratory Rate 14 18 Respiratory Effort Normal Non-Labored Respiratory Depth Normal Respiratory Pattern Normal Blood Pressure 140/68 H 130/72 H Blood Pressure Mean 92 91 Pulse Ox 98 98 Oxygen Delivery Method Room Air Room Air Room Air Positive well nourished and well developed; Negative for cachectic, contractures or unkempt General Appearance ED: well developed and NAD; Negative for unkempt, cachectic, contractures or pallor Nutritional Appearance: Negative for cachectic HEENT Reports moist mucous membranes normocephalic and atraumatic Eyes PERRL and EOMs intact bilaterally Neck no lymphadenopathy, supple and no JVD Resp normal respiratory effort and clear to auscultation bilaterally Cardio regular rate, regular rhythm, S1 normal heart sound, S2 normal heart sound and no murmurs GI non-distended and no masses; Negative for non-tender GI Narrative: Right upper quadrant tenderness to deep palpation. No Wilson sign. No McBurney's point tenderness. No distention or mass. No pulsatile mass. Left slightly abdomen is nontender. No signs of obstruction. Normal bowel sounds. Inspection: Negative for abdominal distention Auscultation: normoactive bowel sounds Palpation: soft and tender; Negative for guarding, rigid, hernia, mass, pulsatile mass or rebound tenderness present Back/Spine no CVA tenderness General Back: Negative for CVA tenderness Cervical Spine: Negative for cervical spine tenderness Thoracic Spine / Upper Back: Negative for thoracic spinal tenderness Lumbar Spine / Lower Back: Negative for lumbar spinal tenderness Extremity full ROM General Extremety ED: Negative for edema or tenderness General Extremity: Negative for edema Neuro CN's II-XII intact bilaterally and moves all extremities Sensorium / Orientation: alert, oriented to person, oriented to place and oriented to time Motor Exam: strength 5/5 throughout Psych mental status grossly normal and thought process normal Appearance: Negative for unkempt Attitude: No agitated Mood & Affect: Negative for depressed, anxious or tearful Skin no wounds General Skin Exam: Negative for jaundice or pallor Lesions: no lesions Rashes: no rashes Trauma: Negative for abrasion Nails: Negative for discolored MDM MDM MDM Narrative Medical decision making narrative: 69-year-old female breast cancer with metastases of right upper quadrant abdominal pain. Consider gallbladder disease versus other etiologies of metastases. CAT scan labs are pending. She be treated morphine for pain and Zofran. Repeat exam patient is doing well at 2:15 PM. Abdomen is benign. She was treated morphine. We went over her test results. She is to follow-up with either her oncologist or primary care physician due to the CAT scan findings of the metastasis of the breast cancer to her spine and pelvis. Nothing else acute we could find her abdomen. She is comfortable being discharged home. Percocet for pain. Outpatient follow-up. She knows to return if worse. History & Record Review Discussion w/independent historian: Patient and Family Additional record(s) reviewed:: Prior inpatient record and Prior outpatient record Lab Data Attestation: I reviewed the patient's lab results. Lab results narrative: CBC shows a white count 1.5 consistent with her being on oral chemotherapy. H&H 11.5 and 32. Platelets 164. Chemistry shows sodium 148 gap 10. Normal BUN of 11 creatinine of 1. Liver enzymes are unremarkable other than AST of 40. Lipase normal at 22 UA is negative. No white or red cells. No nitrites. CT abdomen pelvis shows no acute disease but spread of the metastatic disease. As read by the radiologist and reported to me. Labs: Laboratory Results - last 24 hr 10/09/24 10/09/24 12:00 12:10 WBC 1.5 L* RBC 3.07 L Hgb 11.5 L Hct 32.2 L MCV 104.9 H MCH 37.5 H MCHC 35.7 RDW Std Deviation 47.9 H RDW Coeff of Domi 12.6 Plt Count 164 MPV 8.7 Immature Gran % (Auto) 0.600 Neut % (Auto) 24.8 L Lymph % (Auto) 64.3 H [place] % (Auto) 7.1 Eos % (Auto) 1.9 Baso % (Auto) 1.3 H Absolute Neuts (auto) 0.4 L Absolute Lymphs (auto) 0.99 Nucleated RBC % 0 Atypical Lymphocytes 1+ Reactive Lymphocytes 1+ Platelet Estimate A Sodium 140 Potassium 4.0 Chloride 105 Carbon Dioxide 25.5 Anion Gap 10 BUN 11 Creatinine 1.07 Estim Creat Clear Calc 66.33 Est GFR (MDRD) Non-Af 57 L BUN/Creatinine Ratio 10.1 Glucose 103 H Calcium 8.9 Total Bilirubin 0.59 AST 40 H ALT 30 Alkaline Phosphatase 46 Total Protein 6.5 Albumin 4.0 Globulin 2.5 Albumin/Globulin Ratio 1.6 Lipase 22 Urine Color Yellow Urine Clarity Sl. Cloudy Urine pH 7.0 Ur Specific [place] 1.010 Urine Protein 15 H Urine Glucose (UA) Normal Urine Ketones Negative Urine Occult Blood Negative Urine Nitrite Negative Urine Bilirubin Negative Urine Urobilinogen Normal Ur Leukocyte Esterase Negative Urine RBC 0 SEEN Urine WBC 0 SEEN Ur Squamous Epith Cells 0-5 SEEN Urine Bacteria 0 SEEN Urine Mucus 0 SEEN Radiography Diagnostic Testing: Clinical Impression(s) from Imaging Studies Abdomen/Pelvis CT 10/09/24 11:47 IMPRESSION: There is irregular blastic disease in the right medial acetabulum, right and left pubic symphysis, and scattered blastic foci in the lower thoracic and lumbar spine with a 0.6 cm focus in the posterior T9 vertebral body, 0.8 cm focus in posterior L1 vertebral body, suspicious for blastic metastatic disease. Correlation with whole-body bone scan is recommended. No acute abnormality is identified in the abdomen or pelvis. Critical results were discussed with Dr. Mckinney by Dr. Preston at the time of dictation. Reading [facility] Rhythm Strip Rhythm Strip: Sinus Rhythm Rate: 62 Ectopy: None EKG Initial EKG: Attestation: I personally reviewed and interpreted this EKG as follows: Interpretation: Sinus Rhythm and No Acute Injury Pattern Comments: Normal sinus rhythm rate of 62 no acute signs of AR or ischemia. Inverted T waves in V2 and V3. Unchanged when compared to a prior EKG from January 2023. Prior EKG tracings: available for review Prior: Unchanged Discharge Plan Triage Chief Complaint: Shortness of Breath ED Provider: Addison Mckinney Dx/Rx/DC Orders Clinical Impression: Abdominal pain, Breast cancer metastasized to bone Instructions: Abdominal Pain Prescriptions: New oxycodone-acetaminophen [Percocet] 5-325 mg tablet 1 tab PO Q6H PRN (Reason: pain) 4 Days Qty: 14 0RF No Action citalopram [Celexa] 40 mg tablet 40 mg PO DAILY gabapentin 600 mg tablet 600 mg PO QHS PRN (Reason: nerve pain) albuterol sulfate 2.5 mg /3 mL (0.083 %) solution for nebulization 2.5 mg INHALATION Q4H PRN (Reason: Sob &/Or Wheezing) Qty: 180 3RF anastrozole 1 mg tablet 1 mg PO DAILY Patient Comments: Take 1 tablet by mouth once daily. albuterol sulfate [Ventolin HFA] 90 mcg/actuation HFA aerosol inhaler 2 puff INHALATION Q4H PRN (Reason: shortness of breath or wheezing) Qty: 1 3RF multivitamin [Daily Multi-Vitamin] Tablet 1 tab PO DAILY Ibrance 125 mg capsule 125 mg PO DAILY Rx Instructions: administer on days 1 through 21 of a 28-day treatment cycle azelastine 137 mcg (0.1 %) spray,non-aerosol 2 spray intranasal BID PRN (Reason: nasal congestion) Rx Instructions: administer into each nostril atorvastatin 40 mg tablet 40 mg PO QHS Qty: 90 3RF hydrochlorothiazide 12.5 mg capsule 12.5 mg PO DAILY Qty: 90 3RF losartan 25 mg tablet 25 mg PO DAILY Qty: 90 3RF amlodipine [Norvasc] 2.5 mg tablet 2.5 mg PO DAILY Qty: 90 3RF budesonide-formoterol [Symbicort] 160-4.5 mcg/actuation HFA aerosol inhaler 2 puff inhalation BID PRN (Reason: asthma) Rx Instructions: administer with spacer, rinse mouth after each use montelukast [Singulair] 10 mg tablet 10 mg PO DAILY Qty: 90 3RF gabapentin 100 MG capsule 100 mg PO DAILY pantoprazole 40 mg tablet,delayed release (DR/EC) 40 mg PO BID fluticasone propionate 16 GM spray,suspension 1 spray INTRANASAL BID PRN (Reason: Congestion) cholecalciferol (vitamin D3) 125 mcg (5,000 unit) Capsule 125 mcg PO DAILY dicyclomine 20 mg tablet 20 mg PO TID PRN (Reason: abdominal cramping) Qty: 20 0RF elderberry fruit 200 mg capsule 200 mg PO DAILY isosorbide mononitrate 60 mg tablet extended release 24 hr 60 mg PO DAILY Qty: 90 3RF Primary Care Provider: Alaina Tariq Referrals: marco antonio [Other] manas=mimi [Other] fly [Other] Heriberto Disla MD [Med Staff - Active Staff] - As soon as possible Alaina Tariq MD [Primary Care Provider] - As soon as possible Activity Restrictions/Additional Instructions: Call and follow-up with either your oncologist Dr. Heriberto Disla or your primary care physician Dr. Alaina Tariq as soon as possible. Percocet for pain. Plenty of fluids, fruits, vegetable fiber and stool softener prevent constipation. The breast cancer shows on the CAT scan it is spread your spine and pelvis. Print Language: Estonian Disposition Disposition: Home, Self Care
[2024-10-09 12:06] VITALS: O2SAT 98
[2024-10-09 12:11] LABS: Hematocrit 32.2 % (37-47); Hemoglobin 11.5 g/dL (12.0-15.0); Immature Granulocytes Count 0.010 X10^3/uL (0.0-0.0); Mean Corp Hgb Conc 35.7 g/dL (32-36); Mean Corpuscular Volume 104.9 fL (81-99); Mean Platelet Vol. 8.7 fl (6.2-12.0); NRBC Flagged by Analyzer 0 % (0-5); POSITIVE DIFFERENTIAL YES; POSITIVE MORPHOLOGY YES; Platelet Count 164 K/mm3 (150-450); RBC Distribution Width CV 12.6 % (11.6-14.6); RBC Distribution Width SD 47.9 fl (35.1-43.9); Red Blood Count 3.07 M/mm3 (4.2-5.4)
[2024-10-09 12:14] LABS: Differential Indicated SCAN CRITERIA MET; White Blood Count 1.5 K/mm3 (4.4-11.0)
[2024-10-09 12:26] LABS: Mucous, Urine 0 SEEN /hpf (<or=2+); Red Blood Cells-Urine 0 SEEN /hpf (0-5)
[2024-10-09 12:35] LABS: Reactive Lymphocyte 1+
[2024-10-09 12:37] LABS: Color, Urine Yellow (Yellow); Glucose, Dipstick Normal (Normal); Ketone-Dipstick Negative (Negative); Leukocyte Esterase-Dipstick Negative /ul (Negative); Nitrite-Dipstick Negative (Negative); Occult Blood-Urine Negative /ul (Negative); Protein-Dipstick 15 mg/dl (Negative); Specific Gravity, Urine 1.010 (1.002-1.030); Urine Bilirubin Dipstick Negative (Negative)
[2024-10-09 12:56] LABS: Squamous Epithelial Cells - UA 0-5 SEEN /hpf (5-10)
[2024-10-09 13:17] LABS: Lipase 22 U/L (13-75)
[2024-10-09 13:18] VITALS: BP 130/72; PULSE 55; RESP 18; O2SAT 98
[2024-10-09 13:21] LABS: AST(SGOT) 40 U/L (<=31); Alanine Aminotransfer ALT/SGPT 30 U/L (<=34); Albumin, Serum 4.0 g/dL (3.4-4.8); Alkaline Phosphatase 46 U/L (35-104); Anion Gap 10 (5-15); BUN 11 mg/dL (4-19); BUN/Creat Ratio 10.1 RATIO (10-20); Calcium,Total 8.9 mg/dL (7.6-11.0); Carbon Dioxide 25.5 mmol/L (21.0-32.0); Chloride 105 mmol/L (98-108); Estimated Creatinine Clearance 66.33 ml/min (50-250); Globulin 2.5 g/dL (2.2-4.2); Glucose 103 mg/dL (70-99); Potassium 4.0 mmol/L (3.3-5.1)
[2024-10-09 14:40] VITALS: BP 130/72; PULSE 55; RESP 18; TEMP 36.7; O2SAT 98
== END 2024-10-09 14:30 | disposition home or self-care (01) ==
PROVIDERS: Emergency Provider Emergency Medicine; PCP Internal Medicine; Visit Provider Emergency Medicine
DX: R10.11 Right upper quadrant pain (principal); C79.51 Secondary malignant neoplasm of bone; C50.919 Malignant neoplasm of unspecified site of unspecified female breast; R11.2 Nausea with vomiting, unspecified; Z87.891 Personal history of nicotine dependence; I10 Essential (primary) hypertension; I25.10 Atherosclerotic heart disease of native coronary artery without angina pectoris; E78.5 Hyperlipidemia, unspecified; Z92.21 Personal history of antineoplastic chemotherapy; Z90.49 Acquired absence of other specified parts of digestive tract; F32.A Depression, unspecified; J45.909 Unspecified asthma, uncomplicated; Z79.51 Long term (current) use of inhaled steroids; Z79.899 Other long term (current) drug therapy; K21.9 Gastro-esophageal reflux disease without esophagitis; Z98.51 Tubal ligation status
CPT/HCPCS: 74177; 80053; 81001; 83690; 85025; 93005; 96374; 96375; 99283; Q9967; A4216; J2405

== ENCOUNTER → 2025-01-24 | Outpatient (CLI) | payer MEDICARE, SELFPAY ==
--- NOTE | 2025-01-24 14:06 | RAD_ITS ---
PROCEDURE: INJ/ASP ANTOINE JT SHOULD/HIP/KNEE 01/24/2025 REASON FOR EXAM: OA Chronic pain. TECHNIQUE: Procedure Code: RADINJ/ASP MJ Modality: DX Procedure: INJ/ASP ANTOINE JT SHOULD/HIP/KNEE. The procedure as well as the benefits and possible complications were explained to the patient. Informed consent was obtained. Radiation dose: 25.3 mGy. Fluoroscopy: 52 seconds. The patient was in the supine position. The overlying skin was prepped and draped in usual sterile fashion. Following local anesthetic application, a 22 gauge spinal needle was placed into the right hip joint. 2 cc of Isovue-300 was injected for confirmation. The prescribed medication was injected. The patient tolerated the procedure well. COMPARISON: None FINDINGS: Successful right hip injection. RAD/Inj/Asp Antoine Jt Should/Hip/Knee IMPRESSION: Successful right hip injection. The patient tolerated the procedure well. Reading Location: [place] [id number]
--- NOTE | 2025-01-24 14:06 | RAD_ITS ---
PROCEDURE: INJ/ASP ANTOINE JT SHOULD/HIP/KNEE 01/24/2025 REASON FOR EXAM: OA Chronic pain. TECHNIQUE: Procedure Code: RADINJ/ASP MJ Modality: DX Procedure: INJ/ASP ANTOINE JT SHOULD/HIP/KNEE. The procedure as well as the benefits and possible complications were explained to the patient. Informed consent was obtained. Radiation dose: 25.3 mGy. Fluoroscopy: 52 seconds. The patient was in the supine position. The overlying skin was prepped and draped in usual sterile fashion. Following local anesthetic application, a 22 gauge spinal needle was placed into the right hip joint. 2 cc of Isovue-300 was injected for confirmation. The prescribed medication was injected. The patient tolerated the procedure well. COMPARISON: None FINDINGS: Successful right hip injection. RAD/Inj/Asp Antoine Jt Should/Hip/Knee IMPRESSION: Successful right hip injection. The patient tolerated the procedure well. Reading Location: [place] [id number]
[2025-01-24] MEDS: Lidocaine 2% (5ml sdv) 5 ML VIAL.MPF INFILT (14:16)
[2025-01-24] MEDS: Betamethasone/Betamethasone 30 MG/5 ML Vial 12 MG INTRAARTIC (14:18)
[2025-01-24] MEDS: Lidocaine 1% (5 ml sdv) 5 ML Vial 3 ML OPERA.SITE (14:18)
== END | disposition home or self-care (01) ==
LOC: RAD 13:10
PROVIDERS: PCP Internal Medicine; Referring Provider Physician Assistant; Visit Provider Physician Assistant
DX: M16.11 Unilateral primary osteoarthritis, right hip (principal)
CPT/HCPCS: 20610; 77002; J0702

== ENCOUNTER 2025-02-20 12:11 | Emergency (ER) | payer MEDICARE, SELFPAY ==
[2025-02-20 12:11] VITALS: BP 143/87; PULSE 78; RESP 16; TEMP 36.6; O2SAT 98; BMI 32.2
[2025-02-20 13:00] LABS: Hematocrit 35.6 % (37-47); Hemoglobin 12.0 g/dL (12.0-15.0); Immature Granulocytes Count 0.060 X10^3/uL (0.0-0.0); Mean Corp Hgb Conc 33.7 g/dL (32-36); Mean Corpuscular Volume 103.2 fL (81-99); Mean Platelet Vol. 8.7 fl (6.2-12.0); NRBC Flagged by Analyzer 0.8 % (0-5); Platelet Count 231 K/mm3 (150-450); RBC Distribution Width CV 13.6 % (11.6-14.6); RBC Distribution Width SD 51.2 fl (35.1-43.9); Red Blood Count 3.45 M/mm3 (4.2-5.4); White Blood Count 4.8 K/mm3 (4.4-11.0)
[2025-02-20 13:38] LABS: AST(SGOT) 94 U/L (<=31); Alanine Aminotransfer ALT/SGPT 70 U/L (<=34); Albumin, Serum 4.0 g/dL (3.4-4.8); Alkaline Phosphatase 98 U/L (35-104); Anion Gap 9 (5-15); BUN 10 mg/dL (4-19); BUN/Creat Ratio 9.4 RATIO (10-20); Calcium,Total 10.1 mg/dL (7.6-11.0); Carbon Dioxide 28.6 mmol/L (21.0-32.0); Chloride 100 mmol/L (98-108); Estimated Creatinine Clearance 66.88 ml/min (50-250); Globulin 3.0 g/dL (2.2-4.2); Glucose 111 mg/dL (70-99); Lipase 22 U/L (13-75); Potassium 4.0 mmol/L (3.3-5.1)
[2025-02-20 13:51] LABS: Mucous, Urine 0 SEEN /hpf (<or=2+)
[2025-02-20 14:06] LABS: Color, Urine Yellow (Yellow); Glucose, Dipstick Normal (Normal); Ketone-Dipstick Negative (Negative); Leukocyte Esterase-Dipstick Negative /ul (Negative); Nitrite-Dipstick Negative (Negative); Occult Blood-Urine Negative /ul (Negative); Protein-Dipstick Negative (Negative); Specific Gravity, Urine 1.010 (1.002-1.030); Urine Bilirubin Dipstick Negative (Negative)
[2025-02-20 14:11] VITALS: BP 134/76; O2SAT 96
[2025-02-20 14:29] LABS: Red Blood Cells-Urine 0-5 SEEN /hpf (0-5); Squamous Epithelial Cells - UA 0-5 SEEN /hpf (5-10)
[2025-02-20] MEDS: 0.9% Normal Saline (1000mL) 1,000 ML 999 ML IV (15:26)
--- NOTE | 2025-02-20 15:30 | CT_ITS ---
PROCEDURE: ABDOMEN/PELVIS W IV CONT ONLY 02/20/2025 REASON FOR EXAM: ABDOMINAL PAIN TECHNIQUE: Procedure Code: [id number] Modality: CT Procedure: ABDOMEN/PELVIS W IV CONT ONLY Coronal and Sagittal reconstruction series were provided. CONTRAST: 100 cc of Isovue 370 One or more dose reduction techniques were used (e.g., Automated exposure control, adjustment of the mA and/or kV according to patient size, use of iterative reconstruction technique. COMPARISON: CT abdomen and pelvis 10/09/2024 FINDINGS: Lung bases: Unremarkable. Liver: Interval development of multiple hypodense, heterogenously enhancing hepatic lesions with the largest in the right upper and lower lobes measuring 2.0 x 3.0 x 2.7 cm and 3.4 x 2.9 x 3.2 cm, respectively. Findings may represent metastases. Gallbladder: Unremarkable. No biliary ductal dilatation. Spleen: Normal size. Pancreas: Normal size without evidence of mass surrounding inflammation or ductal dilation. Adrenals: Unremarkable. Kidneys: Normal renal sizes. No hydronephrosis. No obvious masses. Bladder: Unremarkable. Reproductive Organs: Normal uterine size and contour. Ovaries are unremarkable. Bowel: No bowel obstruction. Appendix: Unremarkable. Lymph nodes: Unremarkable. Vasculature: The abdominal aorta and IVC are normal. Peritoneum / Retroperitoneum: No free fluid or air. Bones: Degenerative changes of the spine. No acute fractures. CT/Abdomen/Pelvis W IV Cont ONLY IMPRESSION: 1. Interval development of multiple hypodense, heterogenously enhancing hepatic lesions measuring up to 3.4 cm, findings are concerning for metastases. Please correlate clinically and consider further ev aluation with PET-CT. 2. No acute findings in the abdomen or pelvis as imaged. Reading Location: [facility]
--- NOTE | 2025-02-20 15:33 | EX.ED.DYSGE1 ---
HPI History of Present Illness Chief Complaint: Abd Pain Narrative Narrative: Patient was seen and examined after presenting to ED for abdominal pain states that she noticed it yesterday states she last had a normal poop yesterday as well but she just reports "I just feel like I need to fart or burp and I cannot really do either at home." Patient states that she only had a tubal ligation surgery in the past still has her appendix still has her gallbladder. PFSH FOR[facility]LY [facility] Medical History Breast cancer Coronary artery disease Dyslipidemia Aortic valve sclerosis Near syncope Hyperlipidemia History of left heart catheterization (LHC) (~06/03/21) Atherosclerotic heart disease of [place] coronary artery without angina pectoris Abnormal stress test Unstable angina Depression Anxiety Hypertension Migraines Bradycardia Pneumonia due to COVID-19 virus Acute respiratory failure with hypoxia Hypoxemia COVID-19 COVID-19 GERD (gastroesophageal reflux disease) Heart murmur Hearing problem Cataract Back problem Asthma Arthritis Allergies Bronchitis Dysuria Urinary urgency Acquired stenosis of urethral meatus Essential hypertension PND (post-nasal drip) Dyspnea on exertion Fibrocystic breast disease External hemorrhoid, thrombosed Lymphocytosis Leukopenia Fibrocystic breast disease Former smoker Family history of cardiovascular disease Asthma GERD (gastroesophageal reflux disease) Fibromyalgia Obesity (BMI 30.0-34.9) Sciatica Home Medications Medication Instructions Recorded Last Taken Type citalopram 40 mg tablet (Celexa) 40 mg PO DAILY mental health 11/07/18 06/02/21 History fluticasone propionate 50 1 spray intranasal BID PRN 05/04/20 Unknown History mcg/actuation nasal Congestion spray,suspension cholecalciferol (vitamin D3) 125 125 mcg PO DAILY vitamin 06/02/21 06/02/21 History mcg (5,000 unit) capsule dicyclomine 20 mg tablet 20 mg PO TID PRN abdominal 05/10/22 Unknown Rx cramping #20 tabs anastrozole 1 mg tablet 1 mg PO DAILY cancer 04/28/23 Unknown History albuterol sulfate 90 mcg/actuation 2 puff inhalation Q4H PRN 07/08/23 Unknown Rx aerosol inhaler (Ventolin HFA) shortness of breath or wheezing #1 device multivitamin (Daily Multi-Vitamin 1 tab PO DAILY 11/23/23 Unknown History tablet) palbociclib 125 mg capsule 125 mg PO DAILY 11/23/23 Unknown History (Ibrance) isosorbide mononitrate 60 mg 60 mg PO DAILY #90 tabs 08/02/24 Unknown Rx tablet,extended release 24 hr budesonide-formoterol HFA 160 2 puff inhalation BID PRN asthma 08/09/24 Unknown History mcg-4.5 mcg/actuation aerosol inhaler (Symbicort) elderberry fruit 200 mg capsule 200 mg PO DAILY 09/09/24 Unknown History amlodipine 2.5 mg tablet (Norvasc) 2.5 mg PO DAILY #90 tabs 12/04/24 Unknown Rx atorvastatin 40 mg tablet 40 mg PO QHS #90 tabs 12/04/24 Unknown Rx hydrochlorothiazide 12.5 mg capsule 12.5 mg PO DAILY diuretic #90 caps 12/04/24 Unknown Rx losartan 25 mg tablet 25 mg PO DAILY blood pressure #90 12/04/24 Unknown Rx tabs Nebulizer tubing/equipment #1 ea 02/14/25 Unknown Rx albuterol sulfate 2.5 mg/3 mL 2.5 mg (3 mL) inhalation Q4H PRN 02/14/25 Unknown Rx (0.083 %) solution for nebulization Sob &/Or Wheezing #180 mL alprazolam 0.25 mg tablet 0.25 mg PO BID PRN anxiety 02/14/25 Unknown History nystatin 100,000 unit/mL oral mucous membrane 02/14/25 Unknown History suspension Allergy/AdvReac Type Severity Reaction Status Date / Time apple Allergy Hives Verified 02/20/25 12:12 banana Allergy Hives Verified 02/20/25 12:12 carrot Allergy Hives Verified 02/20/25 12:12 pineapple Allergy Itching Verified 02/20/25 12:12 shellfish derived (lobster) Allergy Anaphylaxis Verified 02/20/25 12:12 shrimp Allergy Anaphylaxis Verified 02/20/25 12:12 amoxicillin AdvReac YEAST Verified 02/20/25 12:12 INFECTION Family History Sister Breast cancer Mother Heart disease Enlarged heart Hx of CABG CABG x 4. Rheumatoid arthritis Grandmother Enlarged heart Father Diabetes Other Anxiety and depression Arthritis History of blood clots Hypertension Surgical History H/O tubal ligation Hx of appendectomy History of removal of cyst Social History household members: spouse Smoking Status: Former smoker quit date: 04/11/93 alcohol intake: current alcohol intake frequency: holidays/special occasions only Alcohol type: wine details: social substance use type: does not use caffeine: No additional social history: Does take aspirin daily Does not take Ibuprofen ROS ROS ED ROS Narrative Pertinent Positives: Generalized abdominal pain reports it is "gas pain" Pertinent Negatives: Fevers chills vomiting diarrhea black or bloody stools dysuria hematuria The remainder of review of systems negative unless otherwise stated in the HPI above. Systems reviewed including constitutional, psychiatric, cardiovascular, respiratory, integument, HENT, gastrointestinal. EXAM Physical Exam Narrative Exam Narrative: Patient is afebrile hemodynamically stable does not appear toxic or in distress although she is holding her abdomen she does not have a palpable pulsatile mass her abdomen is soft minimally distended. No overlying hernias no erythema no crepitus no other skin discoloration or vesicular lesions intact and equal MSPs in her extremities oxygenating well on room air. Const Vital Signs: 02/20/25 12:11 02/20/25 14:11 02/20/25 16:00 Temperature 98 F Temperature Source Oral Pulse Rate 78 56 L Respiratory Rate 16 18 Blood Pressure 143/87 H 134/76 H Blood Pressure Mean 105 95 Pulse Ox 98 96 99 Oxygen Delivery Method Room Air Room Air 02/20/25 18:00 02/20/25 20:00 02/20/25 20:50 Temperature 98.9 F Temperature Source Pulse Rate 70 74 Respiratory Rate 60 H 18 18 Blood Pressure 117/64 119/64 Blood Pressure Mean 81 82 Pulse Ox 98 97 Oxygen Delivery Method MDM MDM MDM Narrative Medical decision making narrative: Nursing notes, triage notes, available previous documentation, and vital signs were reviewed. Any discrepancies noted were addressed. Differential Diagnoses: Could be a bowel obstruction that could be diverticulitis could be constipation UTI lower suspicion for appendicitis or cholecystitis or pancreatitis or aortic etiology Interventions: Bentyl Zofran Fluids Given: 1 L normal saline Labs Reviewed: No leukocytosis or leukopenia hemoglobin is 12 no electrolyte abnormality or renal insufficiency. AST is mildly elevated at 94 with an ALT of 70 lipase is only 22 patient's urine is without any blood ketones protein or evidence of infection Imaging Reviewed: Personally reviewed and interpreted by me: CT abdomen and pelvis showing some stool in the ascending colon there is some gas formation there is well official read is reporting metastatic disease in the liver Previous Documentation Reviewed: None available or applicable at this time. ED Course: Patient presenting with symptoms as stated above patient's labs are fairly unremarkable she is pending a CT did provide her with IV fluids and some medications for her symptoms we will reassess her pending her CT results. Barring any significant findings patient to be discharged home with return precautions and follow-up recommendations. Patient CT abdomen pelvis is showing hepatic lesions concerning for metastatic disease she already has a history of metastatic breast cancer she states that she is already aware of this patient was getting ready to be discharged but she did not want to wait for her paperwork and left prior to it. This note was made utilizing voice recognition software. All attempts were made to correct spelling or other errors prior to note completion. However, due to the fast-paced nature of emergency medicine, some errors may still be present. Lab Data Labs: Laboratory Results - last 24 hr 02/20/25 02/20/25 12:54 13:43 WBC 4.8 RBC 3.45 L Hgb 12.0 Hct 35.6 L MCV 103.2 H MCH 34.8 H MCHC 33.7 RDW Std Deviation 51.2 H RDW Coeff of Domi 13.6 Plt Count 231 MPV 8.7 Immature Gran % (Auto) 1.200 H Neut % (Auto) 55.2 Lymph % (Auto) 35.3 [place] % (Auto) 6.7 Eos % (Auto) 0.8 Baso % (Auto) 0.8 Absolute Neuts (auto) 2.7 Absolute Lymphs (auto) 1.70 Nucleated RBC % 0.8 Sodium 138 Potassium 4.0 Chloride 100 Carbon Dioxide 28.6 Anion Gap 9 BUN 10 Creatinine 1.04 Estim Creat Clear Calc 66.88 Est GFR (MDRD) Non-Af 59 L BUN/Creatinine Ratio 9.4 L Glucose 111 H Calcium 10.1 Total Bilirubin 0.68 AST 94 H ALT 70 H Alkaline Phosphatase 98 Total Protein 7.1 Albumin 4.0 Globulin 3.0 Albumin/Globulin Ratio 1.3 Lipase 22 Urine Color Yellow Urine Clarity Clear Urine pH 7.0 Ur Specific [place] 1.010 Urine Protein Negative Urine Glucose (UA) Normal Urine Ketones Negative Urine Occult Blood Negative Urine Nitrite Negative Urine Bilirubin Negative Urine Urobilinogen Normal Ur Leukocyte Esterase Negative Urine RBC 0-5 SEEN Urine WBC 0-5 SEEN Ur Squamous Epith Cells 0-5 SEEN Urine Bacteria RARE Urine Mucus 0 SEEN Radiography Diagnostic Testing: Clinical Impression(s) from Imaging Studies Abdomen/Pelvis CT 02/20/25 15:30 IMPRESSION: 1. Interval development of multiple hypodense, heterogenously enhancing hepatic lesions measuring up to 3.4 cm, findings are concerning for metastases. Please correlate clinically and consider further evaluation with PET-CT. 2. No acute findings in the abdomen or pelvis as imaged. Reading Location: [facility] Discharge Plan Triage Chief Complaint: Abd Pain ED Provider: Gilles Mora Dx/Rx/DC Orders Clinical Impression: Abdominal pain, Metastatic disease, Lesion of liver, History of breast cancer Instructions: ED Abdominal Pain Unkn Cause Fem Prescriptions: No Action citalopram [Celexa] 40 mg tablet 40 mg PO DAILY anastrozole 1 mg tablet 1 mg PO DAILY Patient Comments: Take 1 tablet by mouth once daily. albuterol sulfate [Ventolin HFA] 90 mcg/actuation HFA aerosol inhaler 2 puff INHALATION Q4H PRN (Reason: shortness of breath or wheezing) Qty: 1 3RF multivitamin [Daily Multi-Vitamin] Tablet 1 tab PO DAILY Ibrance 125 mg capsule 125 mg PO DAILY Rx Instructions: administer on days 1 through 21 of a 28-day treatment cycle amlodipine [Norvasc] 2.5 mg tablet 2.5 mg PO DAILY Qty: 90 3RF atorvastatin 40 mg tablet 40 mg PO QHS Qty: 90 3RF hydrochlorothiazide 12.5 mg capsule 12.5 mg PO DAILY Qty: 90 3RF losartan 25 mg tablet 25 mg PO DAILY Qty: 90 3RF budesonide-formoterol [Symbicort] 160-4.5 mcg/actuation HFA aerosol inhaler 2 puff inhalation BID PRN (Reason: asthma) Rx Instructions: administer with spacer, rinse mouth after each use nystatin 100,000 unit/mL suspension mucous membrane Patient Comments: Take 5 mL by mouth four times daily. USE 1 tsp swish in mouth for several minutes, then swallow (or expectorate) 4 times daily until gone. alprazolam 0.25 mg tablet 0.25 mg PO BID PRN (Reason: anxiety) (DME) Nebulizer tubing/equipment See Rx Instructions .ROUTE .MEDSUPPLY Qty: 1 6RF Rx Instructions: As directed albuterol sulfate 2.5 mg /3 mL (0.083 %) solution for nebulization 2.5 mg INHALATION Q4H PRN (Reason: Sob &/Or Wheezing) Qty: 180 3RF fluticasone propionate 16 GM spray,suspension 1 spray INTRANASAL BID PRN (Reason: Congestion) cholecalciferol (vitamin D3) 125 mcg (5,000 unit) Capsule 125 mcg PO DAILY dicyclomine 20 mg tablet 20 mg PO TID PRN (Reason: abdominal cramping) Qty: 20 0RF elderberry fruit 200 mg capsule 200 mg PO DAILY isosorbide mononitrate 60 mg tablet extended release 24 hr 60 mg PO DAILY Qty: 90 3RF Primary Care Provider: Alaina Tariq Referrals: Alaina Tariq MD [Primary Care Provider, Internal Medicine] Print Language: [place]ien Disposition Disposition: Home, Self Care D/C Safety Score for UGIB Assessment [place]-Blatch[place] Bleeding Score (GBS): Stratifies upper GI bleeding patients who are "low-risk" and candidates for outpatient management. Hemoglobin, BUN, Recent Vital Signs: Hgb 12.0 g/dL (12.0-15.0) 02/20/25 12:54 BUN 10 mg/dL (4-19) 02/20/25 12:54 Pulse Rate 74 Blood Pressure 119/64 Score Interpretation: Score of 0: A GBS of 0 is a “Low Risk” GI bleed, and is highly sensitive (99.6% in a 2007 retrospective study) for predicting which patients did not require any “medical intervention”: blood transfusion, endoscopy, or surgery. This was confirmed in a 2009 Lancet study where patients with a score of 0 were actually discharged and had no GI bleeding mortality at 6 month followup Score above 0: A GBS greater than zero suggests a “High Risk” GI bleed that is likely to require “medical intervention”: transfusion, endoscopy, or surgery. A higher GBS also correlated with a higher likelihood of needing intervention Scores >/= 6 are associated with >50% risk of needing intervention D/C Safety Score for LGIB Assessment Assessment Tool: Readmission and adverse event risk in patients with acute lower GI bleeding. Hemoglobin and Recent Vital Signs: Hgb 12.0 g/dL (12.0-15.0) 02/20/25 12:54 Pulse Rate 74 02/20/25 20:50 Blood Pressure 119/64 02/20/25 20:50 Score Interpretation: Probability Percentage of safe discharge (absence of rebleeding, blood transfusion, therapeutic intervention, 28 day readmission, or ) Score of 8 or below: Consider discharge, with appropriate precautions. Score of 9 or above: Discharge NOT recommended. Consider admission with further workup and resuscitation as necessary.
[2025-02-20 16:00] VITALS: PULSE 56; RESP 18; O2SAT 99
[2025-02-20 18:00] VITALS: BP 117/64; RESP 60
--- NOTE | 2025-02-20 18:56 | ED.RN ---
Ct called about delay in CT results. Reply was "we will call about it".
[2025-02-20 20:00] VITALS: PULSE 70; RESP 18; O2SAT 98
[2025-02-20 20:50] VITALS: BP 119/64; PULSE 74; RESP 18; TEMP 37.2; O2SAT 97
--- NOTE | 2025-02-20 21:09 | ED.RN ---
Pt states "I need to leave because I am hungry and I have been here for 9 hours and everything closes at 10." This RN stated that they are just waiting on d/c paperwork for any prescriptions and instructions for d/c. Pt states "you can't keep me here against my will!" This RN provided education on ability to leave at any time and removed pt's iv. Pt's states "there should be something you can do about this to get this us out of here." This RN educated pt and on this needing to be done by the MD and that the nurse cannot write prescriptions etc. Pt's felt that this RN was "raising your voice at me." This RN stated that she has not raised her voice but simply providing education on what the risks of leaving prior to d/c paperwork would create. Pt's asked to "stop it! Stop it right now, you shut up" directed at . Pt and leave prior to receiving d/c paperwork.
== END 2025-02-20 22:00 | disposition left against medical advice (07) ==
PROVIDERS: Emergency Provider Specialist/Technologist Athletic Trainer; PCP Internal Medicine; Visit Provider Specialist/Technologist Athletic Trainer
DX: R10.9 Unspecified abdominal pain (principal); E78.5 Hyperlipidemia, unspecified; Z87.891 Personal history of nicotine dependence; I25.10 Atherosclerotic heart disease of native coronary artery without angina pectoris; I10 Essential (primary) hypertension; K76.9 Liver disease, unspecified; K21.9 Gastro-esophageal reflux disease without esophagitis; J45.909 Unspecified asthma, uncomplicated; Z85.3 Personal history of malignant neoplasm of breast
CPT/HCPCS: 74177; 80053; 81001; 83690; 85025; 96361; 96374; 99282; Q9967; A4216; J2405

== ENCOUNTER 2025-04-02 04:38 | Emergency (ER) | payer MEDICARE, SELFPAY ==
[2025-04-02] VITALS (8 sets, daily range): BP systolic 128–178; BP diastolic 71–80; PULSE 71–100; RESP 14–18; TEMP 36.9–37.2; O2SAT 85–99; BMI 30.5
--- NOTE | 2025-04-02 05:08 | ED.VIS.GI ---
HPI HPI - GI History of Present Illness Chief Complaint: Abd Pain Informant: patient and spouse/S.O. Narrative Narrative: Patient is a 69-year-old female with a history of breast cancer presenting with abdominal pain, nausea, emesis, and dizziness. - Reports 3 days of severe abdominal pain, nausea, and emesis. - Pain began before a liver biopsy performed yesterday to evaluate a hepatic lesion for potential metastasis. - Describes pain as excruciating, primarily in the upper abdomen, radiating to the lower back at times. - Denies hematemesis, hematochezia, or melena. - Reports difficulty passing flatus; bowel movements are less frequent but of normal consistency when they occur. - Denies similar pain in the past. - Currently undergoing chemotherapy; last treatment was yesterday. - Reports dizziness, described as lightheadedness. PFSH PFS Medical History Breast cancer Coronary artery disease Dyslipidemia Aortic valve sclerosis Near syncope Hyperlipidemia History of left heart catheterization (LHC) (~06/03/21) Atherosclerotic heart disease of [place] coronary artery without angina pectoris Abnormal stress test Unstable angina Depression Anxiety Hypertension Migraines Bradycardia Pneumonia due to COVID-19 virus Acute respiratory failure with hypoxia Hypoxemia COVID-19 COVID-19 GERD (gastroesophageal reflux disease) Heart murmur Hearing problem Cataract Back problem Asthma Arthritis Allergies Bronchitis Dysuria Urinary urgency Acquired stenosis of urethral meatus Essential hypertension PND (post-nasal drip) Dyspnea on exertion Fibrocystic breast disease External hemorrhoid, thrombosed Lymphocytosis Leukopenia Fibrocystic breast disease Former smoker Family history of cardiovascular disease Asthma GERD (gastroesophageal reflux disease) Fibromyalgia Obesity (BMI 30.0-34.9) Sciatica Home Medications ?Medication ?Instructions ?Recorded ?Last Taken ?Type citalopram 40 mg tablet (Celexa) 40 mg PO DAILY mental health 11/07/18 06/02/21 History fluticasone propionate 50 1 spray intranasal BID PRN 05/04/20 Unknown History mcg/actuation nasal Congestion spray,suspension cholecalciferol (vitamin D3) 125 125 mcg PO DAILY vitamin 06/02/21 06/02/21 History mcg (5,000 unit) capsule dicyclomine 20 mg tablet 20 mg PO TID PRN abdominal 05/10/22 Unknown Rx cramping #20 tabs anastrozole 1 mg tablet 1 mg PO DAILY cancer 04/28/23 Unknown History albuterol sulfate 90 mcg/actuation 2 puff inhalation Q4H PRN 07/08/23 Unknown Rx aerosol inhaler (Ventolin HFA) shortness of breath or wheezing #1 device multivitamin (Daily Multi-Vitamin 1 tab PO DAILY 11/23/23 Unknown History tablet) palbociclib 125 mg capsule 125 mg PO DAILY 11/23/23 Unknown History (Ibrance) isosorbide mononitrate 60 mg 60 mg PO DAILY #90 tabs 08/02/24 Unknown Rx tablet,extended release 24 hr budesonide-formoterol HFA 160 2 puff inhalation BID PRN asthma 08/09/24 Unknown History mcg-4.5 mcg/actuation aerosol inhaler (Symbicort) elderberry fruit 200 mg capsule 200 mg PO DAILY 09/09/24 Unknown History amlodipine 2.5 mg tablet (Norvasc) 2.5 mg PO DAILY #90 tabs 12/04/24 Unknown Rx atorvastatin 40 mg tablet 40 mg PO QHS #90 tabs 12/04/24 Unknown Rx hydrochlorothiazide 12.5 mg capsule 12.5 mg PO DAILY diuretic #90 caps 12/04/24 Unknown Rx losartan 25 mg tablet 25 mg PO DAILY blood pressure #90 12/04/24 Unknown Rx tabs Nebulizer tubing/equipment #1 ea 02/14/25 Unknown Rx albuterol sulfate 2.5 mg/3 mL 2.5 mg (3 mL) inhalation Q4H PRN 02/14/25 Unknown Rx (0.083 %) solution for nebulization Sob &/Or Wheezing #180 mL alprazolam 0.25 mg tablet 0.25 mg PO BID PRN anxiety 02/14/25 Unknown History ondansetron 8 mg disintegrating 8 mg PO Q8H PRN nausea and 04/02/25 Unknown Rx tablet vomiting #12 tabs Allergy/AdvReac Type Severity Reaction Status Date / Time apple Allergy Hives Verified 04/02/25 04:41 banana Allergy Hives Verified 04/02/25 04:41 carrot Allergy Hives Verified 04/02/25 04:41 pineapple Allergy Itching Verified 04/02/25 04:41 shellfish derived (lobster) Allergy Anaphylaxis Verified 04/02/25 04:41 shrimp Allergy Anaphylaxis Verified 04/02/25 04:41 amoxicillin AdvReac YEAST Verified 04/02/25 04:41 INFECTION Family History Sister Breast cancer Mother Heart disease Enlarged heart Hx of CABG CABG x 4. Rheumatoid arthritis Grandmother Enlarged heart Father Diabetes Other Anxiety and depression Arthritis History of blood clots Hypertension Surgical History H/O tubal ligation Hx of appendectomy History of removal of cyst Social History household members: spouse Smoking Status: Former smoker quit date: 04/11/93 alcohol intake: current alcohol intake frequency: holidays/special occasions only Alcohol type: wine details: social substance use type: does not use caffeine: No additional social history: Does take aspirin daily Does not take Ibuprofen ROS ROS ED Constitutional Constitutional ED: Denies chills or fever(s) Eyes Eyes: Denies change in vision or diplopia ENT ENT ED: Denies rhinorrhea or sore throat Cardiovascular Cardiovascular: Denies chest pain or palpitations Respiratory/Chest Respiratory/Chest: Denies cough or dyspnea Gastrointestinal Gastrointestinal: Reports abdominal pain, nausea and vomiting; Denies diarrhea, hematemesis, hematochezia or melena Genitourinary Genitourinary ED: Denies dysuria or hematuria Musculoskeletal Musculoskeletal: Reports back pain; Denies neck pain Integumentary Denies abscess or rash Neurologic Neurologic: Denies headache(s), paresthesias or weakness Psychiatric Psychiatric: Denies suicidal thoughts EXAM Physical Exam Const Vital Signs: 04/02/25 04:39 04/02/25 04:42 04/02/25 05:42 Temperature 98.9 F 98.9 F 98.5 F Temperature Source Oral Oral Oral Pulse Rate 100 92 82 Respiratory Rate 18 18 18 Blood Pressure 128/73 H 128/73 H 159/72 H Blood Pressure Mean 91 91 101 Pulse Ox 92 95 93 Oxygen Delivery Method Room Air Room Air Room Air Oxygen Flow Rate (L/min) 04/02/25 06:00 04/02/25 06:29 04/02/25 06:29 Temperature 98.5 F Temperature Source Oral Pulse Rate 79 Respiratory Rate 18 Blood Pressure 170/71 H Blood Pressure Mean 104 Pulse Ox 93 85 95 Oxygen Delivery Method Room Air Room Air Nasal Cannula Oxygen Flow Rate (L/min) 2 04/02/25 07:00 04/02/25 08:01 04/02/25 08:02 Temperature 98.5 F 98.6 F 98.6 F Temperature Source Oral Oral Pulse Rate 71 85 76 Respiratory Rate 18 16 14 Blood Pressure 172/80 H 178/72 H 178/72 H Blood Pressure Mean 110 107 107 Pulse Ox 99 95 98 Oxygen Delivery Method Nasal Cannula Oxygen Flow Rate (L/min) 2 Positive well nourished and well developed Constitutional Narrative: Mild painful distress General Appearance ED: well developed HEENT Reports moist mucous membranes normocephalic and atraumatic Eyes PERRL and EOMs intact bilaterally Neck full ROM and supple Resp normal respiratory effort and clear to auscultation bilaterally Cardio regular rate, regular rhythm and no murmurs Rate: Negative for tachycardic GI non-distended GI Narrative: Sounds are present but hypoactive. Abdomen is tender throughout the middle and the epigastrium, periumbilical, and suprapubic areas, as well as the left upper quadrant. No guarding or rebound. No palpable hernias. Soft abdomen. Auscultation: hypoactive bowel sounds Palpation: soft Back/Spine no CVA tenderness General Back: other FROM Extremity normal to inspection General Extremety ED: Negative for edema, pulses abnormal or tenderness General Extremity: Negative for edema or pulses abnormal Neuro oriented x3, CN's II-XII intact bilaterally and no sensory deficits noted Sensorium / Orientation: awake and alert Motor Exam: strength 5/5 throughout Skin no rashes or lesions noted and no wounds MDM MDM MDM Narrative Medical decision making narrative: The patient presents with mid and upper abdominal pain and tenderness. She had a liver biopsy yesterday, although this discomfort began a couple of days prior and has since worsened. Given her recent procedure and history of cancer, a CT scan was warranted. Laboratory results show increasing AST, ALT, and alkaline phosphatase compared with values from approximately five weeks ago: AST is 280, ALT 48, and alkaline phosphatase 205. Her total bilirubin, protein, and albumin levels are normal, ruling out biliary obstruction. Lipase is also normal. She is pancytopenic, with a total white blood count of 3.0, an ANC of 1,500, a hemoglobin of 10.6, and platelets of 117. None of these findings currently requires acute intervention, although they may affect her ability to receive chemotherapy at her next treatment. The CT scan demonstrates multiple liver lesions that have increased in size compared with her previous imaging, suspicious for metastatic disease. This is consistent with her recent biopsy. In addition, there are sclerotic lesions in the lumbar spine, also suspicious for possible metastases. These findings were discussed with the patient and her . Another finding on CT is a mild to moderate colonic stool burden. She has diverticulosis but no diverticulitis, and her colon is distended without evidence of perforation, free air, or free fluid. No sign of an acute bowel obstruction. As I discussed with her however, the findings of increased lesions in the liver and sclerotic lesions in the lumbar spine vertebrae are suspicious for metastatic disease and she and her understand. The patient reports feeling constipated, which could be contributing to her pain, along with colonic spasms. I offered an enema, a home enema, or laxatives at home. She chose to try a soap-suds enema after receiving IV fluids, Zofran, and morphine, and she felt significantly better. The enema did not yield major stool output, but her pain remains well controlled. She will be discharged with a prescription for Zofran. If she does not have a bowel movement within 24 hours, she should consider using a laxative such as magnesium citrate, a triple dose of Miralax, or a one-time dose of Dulcolax. Lab Data Attestation: I reviewed the patient's lab results. Labs: Laboratory Results - last 24 hr 04/02/25 04/02/25 05:05 05:54 WBC 3.0 L RBC 3.09 L Hgb 10.6 L Hct 31.2 L MCV 101.0 H MCH 34.3 H MCHC 34.0 RDW Std Deviation 52.9 H RDW Coeff of Domi 14.6 Plt Count 117 L MPV 9.5 Immature Gran % (Auto) 0.300 Neut % (Auto) 50.3 Lymph % (Auto) 39.9 [place] % (Auto) 8.9 Eos % (Auto) 0.3 Baso % (Auto) 0.3 Absolute Neuts (auto) 1.5 L Absolute Lymphs (auto) 1.21 Nucleated RBC % 1.3 Differential Comment SCANNED Sodium 137 Potassium 3.9 Chloride 97 Carbon Dioxide 27.3 Anion Gap 13 BUN 9 Creatinine 0.92 Estim Creat Clear Calc 73.64 Est GFR (MDRD) Non-Af 68 BUN/Creatinine Ratio 9.7 L Glucose 127 H Calcium 9.8 Total Bilirubin 0.74 AST 280 H ALT 48 H Alkaline Phosphatase 205 H Total Protein 7.2 Albumin 3.7 Globulin 3.4 Albumin/Globulin Ratio 1.1 Lipase 14 Urine Color Yellow Urine Clarity Clear Urine pH 6.5 Ur Specific [place] 1.010 Urine Protein 30 H Urine Glucose (UA) Normal Urine Ketones Negative Urine Occult Blood 10 H Urine Nitrite Negative Urine Bilirubin Negative Urine Urobilinogen Normal Ur Leukocyte Esterase Negative Urine RBC 0 SEEN Urine WBC 0-5 SEEN Ur Squamous Epith Cells 0-5 SEEN Urine Bacteria 0 SEEN Urine Mucus 0 SEEN Radiography Diagnostic Testing: Clinical Impression(s) from Imaging Studies Abdomen/Pelvis CT 04/02/25 05:35 IMPRESSION: 1. Worsening infiltrative hepatic hypodensities pending tissue sampling results which may represent metastatic disease. 2. Probable previous appendectomy without evidence of acute gastroenterological abnormality. [id number] colonic stool burden with descending and sigmoid diverticulosis. 3. Subtle, patchy sclerotic foci within the lumbar spine in a patient with known malignancy could represent early metastasis. Consider nuclear medicine bone scan if not already performed. Reading Location: [id number] Discharge Plan Triage Chief Complaint: Abd Pain ED Provider: Casper Gaona Dx/Rx/DC Orders Clinical Impression: Acute upper abdominal pain, Constipation, N&V (nausea and vomiting), Malignant neoplasm of unspecified site of unspecified female breast, Acquired pancytopenia, Hepatic lesion, Lesion of bone of lumbosacral spine Instructions: ED Constipation (Adult) Prescriptions: New ondansetron 8 mg tablet,disintegrating 8 mg PO Q8H PRN (Reason: nausea and vomiting) Qty: 12 0RF No Action citalopram [Celexa] 40 mg tablet 40 mg PO DAILY anastrozole 1 mg tablet 1 mg PO DAILY Patient Comments: Take 1 tablet by mouth once daily. albuterol sulfate [Ventolin HFA] 90 mcg/actuation HFA aerosol inhaler 2 puff INHALATION Q4H PRN (Reason: shortness of breath or wheezing) Qty: 1 3RF multivitamin [Daily Multi-Vitamin] Tablet 1 tab PO DAILY Ibrance 125 mg capsule 125 mg PO DAILY Rx Instructions: administer on days 1 through 21 of a 28-day treatment cycle amlodipine [Norvasc] 2.5 mg tablet 2.5 mg PO DAILY Qty: 90 3RF atorvastatin 40 mg tablet 40 mg PO QHS Qty: 90 3RF hydrochlorothiazide 12.5 mg capsule 12.5 mg PO DAILY Qty: 90 3RF losartan 25 mg tablet 25 mg PO DAILY Qty: 90 3RF budesonide-formoterol [Symbicort] 160-4.5 mcg/actuation HFA aerosol inhaler 2 puff inhalation BID PRN (Reason: asthma) Rx Instructions: administer with spacer, rinse mouth after each use alprazolam 0.25 mg tablet 0.25 mg PO BID PRN (Reason: anxiety) (DME) Nebulizer tubing/equipment See Rx Instructions .ROUTE .MEDSUPPLY Qty: 1 6RF Rx Instructions: As directed albuterol sulfate 2.5 mg /3 mL (0.083 %) solution for nebulization 2.5 mg INHALATION Q4H PRN (Reason: Sob &/Or Wheezing) Qty: 180 3RF fluticasone propionate 16 GM spray,suspension 1 spray INTRANASAL BID PRN (Reason: Congestion) cholecalciferol (vitamin D3) 125 mcg (5,000 unit) Capsule 125 mcg PO DAILY dicyclomine 20 mg tablet 20 mg PO TID PRN (Reason: abdominal cramping) Qty: 20 0RF elderberry fruit 200 mg capsule 200 mg PO DAILY isosorbide mononitrate 60 mg tablet extended release 24 hr 60 mg PO DAILY Qty: 90 3RF Primary Care Provider: Alaina Tariq Referrals: Alaina Tariq MD [Primary Care Provider, Internal Medicine] Activity Restrictions/Additional Instructions: - Take Zofran (ondansetron) as prescribed to relieve your nausea. - If you do not have a bowel movement within the next 24 hours, use one of these laxative options at home: magnesium citrate 150cc, a triple dose of MiraLAX, or one dose of Dulcolax. Make sure you drink plenty of water after any of these options. Print Language: Nepali Disposition Disposition: Home, Self Care
[2025-04-02] MEDS: 0.9% Normal Saline (1000mL) 1,000 ML 999 ML IV (05:13)
[2025-04-02 05:16] LABS: Hematocrit 31.2 % (37-47); Hemoglobin 10.6 g/dL (12.0-15.0); Immature Granulocytes Count 0.010 X10^3/uL (0.0-0.0); Mean Corp Hgb Conc 34.0 g/dL (32-36); Mean Corpuscular Volume 101.0 fL (81-99); Mean Platelet Vol. 9.5 fl (6.2-12.0); NRBC Flagged by Analyzer 1.3 % (0-5); POSITIVE MORPHOLOGY YES; Platelet Count 117 K/mm3 (150-450); RBC Distribution Width CV 14.6 % (11.6-14.6); RBC Distribution Width SD 52.9 fl (35.1-43.9); Red Blood Count 3.09 M/mm3 (4.2-5.4); White Blood Count 3.0 K/mm3 (4.4-11.0)
--- NOTE | 2025-04-02 05:35 | CT_ITS ---
PROCEDURE: ABDOMEN/PELVIS W IV CONT ONLY 04/02/2025 REASON FOR EXAM: PERIUMB, UPPER ABD PAIN, N/V; RECENT LIVER BX TECHNIQUE: Procedure Code: [id number] Modality: CT Procedure: ABDOMEN/PELVIS W IV CONT ONLY Coronal and Sagittal reconstruction series were provided. CONTRAST: Isovue 370 VOLUME: 100 mL One or more dose reduction techniques were used (e.g., Automated exposure control, adjustment of the mA and/or kV according to patient size, use of iterative reconstruction technique. RADIATION DOSE SUMMARY: CTDlvol: 18.27+ 9.97 mGy DLP: 1036.87 mGycm COMPARISON: 20 February 2025 FINDINGS: Lung bases: Bilateral dependent atelectasis with multiple infiltrative airspace opacities. Borderline cardiomegaly. Liver: Hypoattenuating, infiltrative hepatic lesions are again noted, the largest in the inferior right hepatic lobe measures 3.74 cm in length compared to 3 point 4 cm in length on previous examination. The gallbladder, kidneys, adrenals, spleen, and pancreas are normal. The bladder is nondistended and not fully characterized. Bowel: Pagu-ly-ahqjiaue colonic stool burden with descending colonic diverticula. Appendix: The appendix is not visualized may be surgically absent. Lymph nodes: Shotty mesenteric and retroperitoneal lymph nodes. Vasculature: Atheromatous changes of the aorta without aneurysmal dilatation. Peritoneum / Retroperitoneum: No ascites. Bones: Mottled appearance of the lumbar spine with areas of subtle increased sclerosis, somewhat infiltrative as well as degenerative changes of bilateral hips in the pubic symphysis. L5-S1 disc space narrowing. The soft tissues are otherwise unremarkable. CT/Abdomen/Pelvis W IV Cont ONLY IMPRESSION: 1. Worsening infiltrative hepatic hypodensities pending tissue sampling result s which may represent metastatic disease. 2. Probable previous appendectomy without evidence of acute gastroenterologica l abnormality. [id number] colonic stool burden with descending and sigmoid diverticulosis. 3. Subtle, patchy sclerotic foci within the lumbar spine in a patient with kno wn malignancy could represent early metastasis. Consider nuclear medicine bone scan if not already performed. Reading Location: [id number]
--- OUTSIDE RECORDS SUMMARY | 2025-04-02 05:47 | XMS RPT_ITS | CCD ---
Author Organization [facility] Care Team Providers Care Try Out Person Name Role Phone Ilya Monroe Primary Care Provider JAMAAL IRVIN Attending Unavailpiotr e ILYA MONROE Primary Care Unavailable ILYA MONROE Primary Care Unavailable TINO ROUSSEAU Attending Unavailable ILYA MONROE Primary Care Unavailable PENNY DUQUE Attending Unavailable Ilya Monroe MD Primary Care Provider Dr. Ilya Monroe Primary Care Provider Tyler INTERNATIONAL LOGISTICS ANALYST, INTERNATIONAL LOGISTICS ANALYST-C Jules Attending Provider [phone] Tyler INTERNATIONAL LOGISTICS ANALYST, INTERNATIONAL LOGISTICS ANALYST-C Jules Referring Provider [phone] Dr. Junito Gurrola Emergency Provider Dr. Ailin Lopez Admit Provider Dr. Ailin Lopez Attending Provider Dr. Ailin Lopez Other Provider Dr. Richard Sales Attending Provider Dr. Richard Sales Other Provider Dr. Ilya Monroe Referring Provider ADELAIDA Perez Attending Provider ADELAIDA Perez Referring Provider ADELAIDA Perez Other Provider Dr. Talon Jimenez Attending Provider Dr. Haven Engel Emergency Provider Dr. Brianna Foss Admit Provider Dr. Brianna Foss Attending Provider Dr. Brianna Foss Other Provider Dr. Talon Jimenez Other Provider Dr. Talon Jimenez Referring Provider Dr. Jose Enrique Garcia Attending Provider Unavailable Dr. Jose Enrique Garcia Other Provider Unavailable Dr. Ilya Monroe Primary Care Provider Dr. Junito Gurrola Emergency Provider Dr. Ailin Lopez Admit Provider Tyler INTERNATIONAL LOGISTICS ANALYST, INTERNATIONAL LOGISTICS ANALYST-C Jules Attending Provider MABEL SUÁREZ, DR CARABALLO Primary Care Physician Ilya Monroe MD Primary Care Provider Ilya Monroe MD Primary Care Provider Dr. Ilya Monroe Primary Care Provider Dr. Ilya Monroe Referring Provider Shaista INTERNATIONAL LOGISTICS ANALYST, INTERNATIONAL LOGISTICS ANALYST-C Ryland Bronson Attending Provider Dr. Ilya Monroe Primary Care Provider Dr. Ilya Monroe Referring Provider Tyler INTERNATIONAL LOGISTICS ANALYST, INTERNATIONAL LOGISTICS ANALYST-C Jules Attending Provider Marty INTERNATIONAL LOGISTICS ANALYST, INTERNATIONAL LOGISTICS ANALYST-C Adriana Referring Provider Marty INTERNATIONAL LOGISTICS ANALYST, INTERNATIONAL LOGISTICS ANALYST-C Adriana Other Provider Dr. Alex Bledsoe Attending Provider Azul SON, PA Erinn Mccormick Attending Provider Dr. Ilya Monroe Primary Care Provider Dr. Ilya Monroe Referring Provider Ema Fnag Unavailable Elias SUÁREZ, , Eveline Unavailable Mabel, Dr. Ilya Geronimo Primary Care Provider Mabel, Dr. Ilya Geronimo Referring Provider Robert, Dr. Warren Attending Provider Elias SUÁREZ, Eveline Unavailable Natalie SUÁREZ, Heriberto Unavailable Dr. Ilya Monroe Primary Care Provider Mabel, Dr. Ilya Geronimo Referring Provider Robert, Dr. Warren Attending Provider Abran HERBERT, Dominga Unavailable Ilya Monroe MD Primary Care Provider GREGG BAE Referring Unavailable ILYA MONROE Primary Care Unavailable GREGG BAE Attending Unavailable CONCETTA FANG Referring Unavailable ILYA MONROE Primary Care Unavailable CONCETTA FANG Referring Unavailable ILYA MONROE Primary Care Unavailable ILYA MONROE Primary Care Unavailable GRGEG BAE Attending Unavailable ILYA MONROE Referring Unavailable REINA MCGRAW Attending Unavailable GREGG BAE Referring Unavailable ILYA MONROE Primary Care Unavailable GREGG BAE Referring Unavailable ILYA MONROE Primary Care Unavailable GREGG BAE Referring Unavailable ILYA MONROE Primary Care Unavailable Abilio SUÁREZ, Concetta Fernández Unavailable Joya HR RECRUITER.WINDER HELPER, Adriana Unavailable Li HR RECRUITER.BURRING WHEEL OPERATOR, Camille Unavailable Li HR RECRUITER.BURRING WHEEL OPERATOR, Camille Unavailable Li HR RECRUITER.BURRING WHEEL OPERATOR, Camille Unavailable Mabel SUÁREZ, Dr. Ilya Geronimo Primary Care Provider Dr. Corona Agee DO Attending Provider [phone] Corona Agee DO Emergency Provider Bernarda SUÁREZ, Dr. Mike Attending Provider Bernarda SUÁREZ, Dr. Mike Referring Provider Li HR RECRUITER.BURRING WHEEL OPERATOR, Camille Unavailable Marty HR RECRUITER.WINDER HELPER, Adriana Unavailable Mabel SUÁREZ, Dr. Ilya Geronimo Primary Care Provider [phone] Mabel SUÁREZ, Dr. Ilya Geronimo Referring Provider Jules Mcdonnell Attending Provider Galileo RICHARDS, Dr. Wild Emergency Provider Galileo RICHARDS, Dr. Wild Attending Provider [phone] Hank SUÁREZ, Dr. Jaime Emergency Provider Joya HR RECRUITER.WINDER HELPER, Adriana Unavailable Mabel SUÁREZ, Dr. Ilya Geronimo Primary Care Provider [phone] Hank SUÁREZ, Dr. Jaime Attending Provider Maria R SUÁREZ, Dr. Monteiro Attending Provider [phone] TALAMPAS, ILYA Primary Care Unavailable JOYA, ADRIANA Referring Unavailable TALAMPAS, ILYA Primary Care Unavailable MADINA SCOTT Attending Unavailable TALAMPAS, ILYA Primary Care Unavailable JOYA, ADRIANA Referring Unavailable JOYA, ADRIANA Attending Unavailable TALAMPAS, ILYA Primary Care Unavailable JOYA, ADRIANA Referring Unavailable TALAMPAS, ILYA Primary Care Unavailable KESHAWN HASTINGS Attending Unavailable TALAMPAS, ILYA Primary Care Unavailable GIOVANNIOVICHERIBERTO Bronson Referring Unavailable HERIBERTO DISLA Attending Unavailable TALAMPAS, ILYA Primary Care Unavailable HERIBERTO DISLA Referring Unavailable GIOVANNIOVICHERIBERTO Bronson Referring Unavailable TALAMPAS, ILYA Primary Care Unavailable TALAMPAS, ILYA Primary Care Unavailable HERIBERTO DISLA Referring Unavailable TALAMPAS, ILYA Primary Care Unavailable JOYA, ADRIANA Referring Unavailable TALAMPAS, ILYA Primary Care Unavailable JOYA, ADRIANA Referring Unavailable TALAMPAS, ILYA Primary Care Unavailable WILBERT MARTIN Attending Unavailable JOYA, ADRIANA Referring Unavailable TALAMPAS, ILYA Primary Care Unavailable JOYA, ADRIANA Attending Unavailable REINA BURGESS Attending Unavailable TALAMPAS, ILYA Primary Care Unavailable TALAMPAS, ILYA Primary Care Unavailable HERIBERTO DISLA Referring Unavailable TALAMPAS, ILYA Primary Care Unavailable ADRIANA JOYA Attending Unavailable TALAMPAS, ILYA Primary Care Unavailable ABRAMHERIBERTO BLUE Referring Unavailable TALAMPAS, ILYA Primary Care Unavailable ABRAMHERIBERTO BLUE Referring Unavailable TALAMPAS, ILYA Primary Care Unavailable TALAMPAS, ILYA Attending Unavailable TALAMPAS, ILYA Primary Care Unavailable SELF Referring Unavailable TALAMPAS, ILYA Primary Care Unavailable SELF Referring Unavailable ADRIANA JOYA Attending Unavailable TALAMPAS, ILYA Primary Care Unavailable MUSTAPHA SILVERIO Attending Unavailable TALAMPAS, ILYA Primary Care Unavailable ABRAMOVICHERIBERTO Bronson Referring Unavailable TALAMPAS, IYLA Primary Care Unavailable PREET MARES Attending Unavailable TALAMPAS, ILYA Primary Care Unavailable CHANDRAKANT KELLEY Attending Unavailable GIOVANNIOVICHERIBERTO Bronson Referring Unavailable TALAMPAS, ILYA Primary Care Unavailable ABRAMOVICHERIBERTO Bronson Referring Unavailable TALAMPAS, ILYA Primary Care Unavailable ALBERT HOLLAND Attending Unavailable PREET MARES Referring Unavailable TALAMPAS, ILYA Primary Care Unavailable HERIBERTO DISLA Referring Unavailable TALAMPAS, ILYA Primary Care Unavailable CHERIEAMHERIBERTO BLUE Referring Unavailable TALAMPAS, ILYA Primary Care Unavailable HERIBERTO DISLA Attending Unavailable TALAMPAS, ILYA Primary Care Unavailable CHERIEAMOVICHERIBERTO Bronson Referring Unavailable TALAMPAS, ILYA Primary Care Unavailable IVÁN STONE Attending Unavailable SELF Referring Unavailable TALAMPAS, ILYA Primary Care Unavailable ABRAMOVICHERIBERTO Bronson Referring Unavailable TALAMPAS, ILYA Primary Care Unavailable VETOVITZ, SOWMYA Referring Unavailable TALAMPAS, ILYA Primary Care Unavailable SELF Referring Unavailable VETOVITZ, SOWMYA Attending Unavailable TALAMPAS, ILYA Primary Care Unavailable ABRAMHERIBERTO BLUE Attending Unavailable ABRAMHERIBERTO BLUE Referring Unavailable TALAMPAS, ILYA Primary Care Unavailable CHERIEAMOVICHERIBERTO Bronson Referring Unavailable TALAMPAS, ILYA Primary Care Unavailable TALAMPAS, ILYA Primary Care Unavailable JEAN CARLOS AVILA Attending Unavailable TALAMPAS, ILYA Primary Care Unavailable JEAN CARLOS AVILA Attending Unavailable TALAMPAS, ILYA Primary Care Unavailable HERIBERTO DISLA Attending Unavailable HERIBERTO DISLA Referring Unavailable Talampas, Ilya D Referring Unavailable Talampas, Ilya D Primary Care Unavailable Cayetano Heck Attending Unavailable Talampas, Ilya D Referring Unavailable Talampas, Ilya D Primary Care Unavailable Tyler INTERNATIONAL LOGISTICS ANALYST, Jules Attending Unavailable Talampas, Ilya D Primary Care Unavailable Talampas, Ilya D Referring Unavailable Tyler ULRICH, Jules Attending Unavailable Talampas, Ilya D Primary Care Unavailable Junito Gurrola Attending Unavailable Talampas, Ilya D Primary Care Unavailable Addison Mckinney Attending Unavailable Talampas, Ilya D Primary Care Unavailable Corona Agee Attending Unavailable Gilles Mora Attending Unavailable Talampas, Ilya D Primary Care Unavailable John Bearddra Attending Unavailable Vetovifide, Sowmya Referring Unavailable Talampas, Ilya D Primary Care Unavailable Talampas, Liya D Primary Care Unavailable Rashid Espinoza Attending Unavailable Rashid Espinoza Referring Unavailable Allergies Allergy Classification Reported Allergen(s) Allergy Type Date of Onset Reaction(s) Facility Apple extract (2 sources) Apple extract Drug Allergy 8 Hives, Anaphylaxis [facility] Banana Extract (2 sources) Banana Extract Drug Allergy 8 Hives, Anaphylaxis [facility] carrot allergenic extract (2 sources) carrot allergenic extract Drug Allergy 8 Hives, Anaphylaxis [facility] Penicillins (antibiotic) (2 sources) Amoxicillin Drug Allergy 5 Other: See Comments [facility] Shellfish (2 sources) Shellfish Food Allergy 6 Swelling, Anaphylaxis [facility] (20 sources) Amoxicillin; Translations: [Unknown] Drug Allergy 5 Itching, Other: See Comments [facility] (20 sources) Shellfish; Translations: [SHELLFISH DERIVED] Propensity to adverse reactions to drug 6 Anaphylaxis, Swelling [facility] (20 sources) Apple extract; Translations: [APPLE] Drug Allergy 8 Hives, Anaphylaxis [facility] (20 sources) Banana Extract; Translations: [BANANA] Drug Allergy 8 Hives, Anaphylaxis [facility] (20 sources) carrot allergenic extract; Translations: [CARROT] Drug Allergy 8 Hives, Anaphylaxis [facility] (20 sources) Pineapple; Translations: [PINEAPPLE] Drug Allergy 8 Itching, Anaphylaxis [facility] (3 sources) Lobster - dietary Allergy to substance 2 Anaphylaxis [facility] Work Phone: (14 sources) shrimp allergenic extract Drug Allergy 2 Anaphylaxis [facility] (1 source) Shellfish Food allergy [facility] (1 source) Carrots 1, 2 Food allergy Amoxicillin (substance) [facility] Comment on above: yeast infection iitching (1 source) Bananas 3 Food allergy [facility] Comment on above: itching (1 source) Pineapple 4 Food allergy Shellfish (organism) [facility] Comment on above: hives and itching (1 source) seasonal enviromental Allergy to substance [facility] (1 source) Amoxicillin Drug Allergy 5 [facility] (1 source) Apple extract Drug Allergy 5 [facility] (1 source) Banana Extract Drug Allergy 5 [facility] (1 source) carrot allergenic extract Drug Allergy 5 [facility] (1 source) Shrimp product Drug allergy (disorder) 5 [facility] (1 source) pineapple Drug allergy (disorder) 5 [facility] Medications Current Medications Medication Drug Class(es) Dates Sig (Normalized) Sig (Original) [id number] 200 actuat albuterol 0.09 mg/actuat metered dose inhaler (20 sources) beta2-Adrenergic Agonist Start: 06-06-2019 take 2 puff(s) by inhalation four times daily as needed albuterol HFA (PROVENTIL HFA, VENTOLIN HFA) 90 mcg/actuation inhaler 2 puffs 4 times daily as needed. 1 Inhaler 3 06/06/2019 Active Start: 02-07-2019 take 2.5 mg by inhal ation every four hours as needed for wheezing Albuterol Sulfate 2.5 mg /3 mL (0.083 %) solution for nebulization Active 2.5 mg INHALATION Q4H as needed for Sob &/Or Wheezing 180 3 February 07, 2019 12:00am Start: 01-24-2019 End: 07-08-2023 Albuterol Sulfate (Ventolin Hfa) 90 mcg/actuation HFA aerosol inhaler Discontinued 2 NMA INHALATION Q4H as needed for shortness of breath or wheezing 1 January 01, 2022 11:04am July 08, 2023 9:59am Start: 01-24-2019 End: 01-01-2022 take 1 puff(s) by inhalation every four hours Albuterol Sulfate (Ventolin Hfa) 90 mcg/actuation HFA aerosol inhaler Discontinued 2 PUFF INHALATION Q4H July 11, 2019 1:08pm January 01, 2022 11:04am Start: 12-30-2018 albuterol (PRO VENTIL) 2.5 mg /3 mL (0.083 %) nebulizer solution Indications: Mild intermittent asthma with acute exacerbation (HCC) Use 3 mL via nebulizer one time only for 1 dose. Use over 5-15minutes. 50 Vial 12/30/2018 Active Comment on above: Use 3 mL via nebuliz er one time only for 1 dose. Use over 5-15minutes. 2 puffs 4 times valdemar y as needed. ALPRAZolam 0.25 mg oral tablet (12 sources) Benzodiazepine Start: End: take 1 tablet by mouth twice daily as needed for anxiety ALPRAZolam (XANAX) 0.25 mg tablet Indications: Situational mixed anxiety and depressive disorder Take 1 tablet by mouth two times a day as needed for anxiety for up to 30 days. 20 tablet 09/27/2024 10/27/2024 Active Start: 08-23-2022 End: 08-30-2022 take 1 tablet by mouth twice daily as needed for anxiety ALPRAZolam (XANAX) 0.25 mg tablet Indications: Situational mixed anxiety and depressive disorder Take 1 tablet by mouth twice daily as needed for anxiety for up to 7 days. 14 tablet 0 08/23/2022 08/30/2022 Active Comment on above: Take 1 tablet by willy th twice daily as needed for anxiety for up to 7 days. amLODIPine 2.5 mg oral tablet (20 sources) Dihydropyridine Calcium Channel Ava Start: 01-07-20 End: 12-05-19 take 1 tablet by mouth once daily amLODIPine (NORVASC) 2.5 mg tablet Take 2.5 mg by mouth once daily. 06/04/2022 Active Comment on above: Take 2.5 mg by mouth once daily. anastrozole 1 mg oral tablet (20 sources) Aromatase Inhibitor Start: 04-13-19 End: 01-19-20 take 1 tablet by mouth once daily anastrozole (ARIMIDEX) 1 mg tablet take 1 tablet by mouth once daily. 90 tablet 3 01/19/2024 Active Start: 03-09-2023 take 1 tablet by willy th once daily anastrozole (ARIMIDEX) 1 mg tablet Take 1 tablet by mouth once daily. 30 tablet 2 03/09/2023 Active Comment on above: Take 1 tablet by willy th once daily. Ascorbic Acid (20 sources) Vitamin C take 1 tablet by mouth once daily ascorbic acid (VITAMIN C ORAL) Take 1 tablet by mouth once daily. Active azelastine hydrochloride 0.137 mg/actuat metered dose nasal spray (20 sources) Histamine-1 Receptor Antagonist Start: 07-06-19 take 2 spray(s) nasal route twice daily as needed for congestion azelastine 0.1% nasal spray Use 2 Sprays in each nostril two times a day. as needed for nasal congestion and drainage 30 mL 1 07/05/2024 Active Start: 06-11-2022 End: 07-05-2024 azelastine 0.1% nasal spray Use 2 Sprays in each nostril as needed. 06/11/2022 07/05/2024 Discontinued Start: 06-11-2022 azelastine 0.1 % nasal spray as needed. 0 06/11/2022 Active Start: 06-10-2022 End: 11-23-2023 take 2 spray(s) nasal route twice daily as needed for congestion azelastine 0.1% nasal spray Use 2 Sprays in each nostril two times a day. as needed for nasal congestion and drainage 30 mL 1 07/05/2024 Active Start: 06-10-2022 take 1 spray(s) nasa l route twice daily Azelastine Active 2 SPRAY INTRANASAL TWICE A DAY June 10, 2022 1:00am administer into each nostril Comment on above: as needed. Use 2 Sprays in each nostril as needed. azithromycin 250 mg oral tablet (19 sources) Macrolide Antimicrobial Start: 05-27-2023 End: 06-01-2023 azithromycin (ZITHROMAX Z-LISSETT) 250 mg tablet Indications: Asthma with acute exacerbation, unspecified asthma severity, unspecified whether persistent , Cough Take 2 tablets day one, then, 1 tablet daily until gone. Take with food 6 tablet 0 05/27/2023 06/01/2023 Active Start: 02-07-2013 End: 04-05-2013 take 1 tablet by mouth once daily Azithromycin 250 MG tablet Discontinued 250 mg PO DAILY 4 0 February 07, 2013 12:00am April 05, 2013 1:44pm Comment on above: Take 2 tablets day o ne, then, 1 tablet daily until gone. Take with food benoxinate hydrochloride 4 mg/ml / fluorescein sodium 3 mg/ml ophthalmic solution (5 sources) Diagnostic Dye Start: 11-08-2024 End: 11-09-2024 fluorescein-benoxi [place] 0.3-0.4 % 1 drop (FLURESS) Start: 11-08-2024 End: 11-09-2024 1 drop, BOTH EYES, DIRECT ED, Starting on Tue11/08/24 at 1430, Until Tue11/09/24 at 0229, Administer for applanation tonometry. In the event of a Fluress shortage, administer Rachelle-Fluor 1 drop into both eyes as directed for applanation tonometry Start: 11-07-2023 End: 11-08-2023 fluorescein-benoxinate 0.3-0 .4 % 1 Drop (FLURESS) Start: 07-23-2022 End: 07-23-2022 fluorescein-benoxinate 0.25- 0.4 % 1 Drop (FLURESS) Budesonide-Formoterol (20 sources) Corticosteroid, beta2-Adrenergic Agonist Start: 08-09-2024 Budesonide-Formoterol (Symbicort) 160-4.5 mcg/actuation HFA aerosol inhaler Active 2 NMA INHALATION TWICE A DAY as needed for asthma August 09, 2024 11:15am administer with spacer, rinse mouth after each use Start: 07-08-2023 End: 08-09-2024 Budesonide-Formoterol (Symbi avel) 160-4.5 mcg/actuation HFA aerosol inhaler Discontinued 2 NMA INHALATION TWICE A DAY 1 July 08, 2023 9:59am August 09, 2024 11:16am administer with spacer, rinse mouth after each use Start: 07-08-2023 End: 08-09-2024 Budesonide-Formoterol (Symbi avel) 160-4.5 mcg/actuation HFA aerosol inhaler Discontinued 2 NMA INHALATION TWICE A DAY July 08, 2023 9:59am August 09, 2024 11:16am administer with spacer, rinse mouth after each use Start: 07-08-2023 Budesonide-For moterol (Symbicort) 160-4.5 mcg/actuation HFA aerosol inhaler Active 2 NMA INHALATION TWICE A DAY July 08, 2023 9:59am administer with spacer, rinse mouth after each use Start: 07-02-2022 take 2 puff(s) by in halation twice daily as needed SYMBICORT 160-4.5 mcg/actuation inhaler Inhale 2 Puffs as instructed two times a day as needed. 07/02/2022 Active Start: 07-02-2022 SYMBICORT 160- 4.5 mcg/actuation inhaler as needed. 07/02/2022 Active Start: 07-02-2022 End: 07-08-2023 Budesonide-Formoterol (Symbi avel) 160-4.5 mcg/actuation HFA aerosol inhaler Discontinued 2 NMA INHALATION TWICE A DAY 1 July 02, 2022 10:02am July 08, 2023 9:59am administer with spacer, rinse mouth after each use Start: 07-02-2022 End: 07-08-2023 Budesonide-Formoterol (Symbi avel) 160-4.5 mcg/actuation HFA aerosol inhaler Discontinued 2 NMA INHALATION TWICE A DAY July 02, 2022 10:02am July 08, 2023 9:59am administer with spacer, rinse mouth after each use Start: 07-02-2022 take 1 puff(s) by [facility] twice daily Budesonide-Formoterol (Symbicort) 160-4.5 mcg/actuation HFA aerosol inhaler Active 2 PUFF INHALATION TWICE A DAY July 02, 2022 9:02am administer with spacer, rinse mouth after each use Start: 07-02-2022 take 1 puff(s) by [facility] twice daily Budesonide-Formoterol (Symbicort) 160-4.5 mcg/actuation HFA aerosol inhaler Active 2 PUFF INHALATION TWICE A DAY July 02, 2022 10:02am administer with spacer, rinse mouth after each use Start: 01-01-2022 End: 07-02-2022 Budesonide-Formoterol (Symbi avel) 160-4.5 mcg/actuation HFA aerosol inhaler Discontinued 2 NMA INHALATION TWICE A DAY 04 16January 01, 2022 11:04am July 02, 2022 10:02am administer with spacer, rinse mouth after each use Start: 01-01-2022 End: 07-02-2022 Budesonide-Formoterol (Symbi avel) 160-4.5 mcg/actuation HFA aerosol inhaler Discontinued 2 NMA INHALATION TWICE A DAY January 01, 2022 11:04am July 02, 2022 10:02am administer with spacer, rinse mouth after each use Start: 01-01-2022 End: 07-02-2022 take 1 puff(s) by mouth twice daily Budesonide-Formoterol (Symbicort) 160-4.5 mcg/actuation HFA aerosol inhaler Discontinued 2 PUFF INHALATION TWICE A DAY January 01, 2022 10:04am July 02, 2022 9:02am administer with spacer, rinse mouth after each use Start: 01-01-2022 End: 07-02-2022 take 1 puff(s) by mouth twice daily Budesonide-Formoterol (Symbicort) 160-4.5 mcg/actuation HFA aerosol inhaler Discontinued 2 PUFF INHALATION TWICE A DAY January 01, 2022 11:04am July 02, 2022 10:02am administer with spacer, rinse mouth after each use Start: 01-01-2022 take 1 puff(s) by [facility] twice daily Budesonide-Formoterol (Symbicort) 160-4.5 mcg/actuation HFA aerosol inhaler Active 2 PUFF INHALATION TWICE A DAY January 01, 2022 10:04am administer with spacer, rinse mouth after each use Start: 03-31-2021 take 1 puff(s) by [facility] twice daily Budesonide-Formoterol (Symbicort) 160-4.5 mcg/actuation HFA aerosol inhaler Active 2 PUFF INHALATION TWICE A DAY March 31, 2021 10:29am administer with spacer, rinse mouth after each use Start: 03-31-2021 End: 01-01-2022 Budesonide-Formoterol (Symbi avel) 160-4.5 mcg/actuation HFA aerosol inhaler Discontinued 2 NMA INHALATION TWICE A DAY 04 13March 31, 2021 1:00am January 01, 2022 11:04am administer with spacer, rinse mouth after each use Start: 03-31-2021 End: 01-01-2022 Budesonide-Formoterol (Symbi avel) 160-4.5 mcg/actuation HFA aerosol inhaler Discontinued 2 NMA INHALATION TWICE A DAY March 31, 2021 1:00am January 01, 2022 11:04am administer with spacer, rinse mouth after each use Start: 03-31-2021 End: 01-01-2022 take 1 puff(s) by mouth twice daily Budesonide-Formoterol (Symbicort) 160-4.5 mcg/actuation HFA aerosol inhaler Discontinued 2 PUFF INHALATION TWICE A DAY March 31, 2021 1:00am January 01, 2022 11:04am administer with spacer, rinse mouth after each use Start: 03-31-2021 End: 01-01-2022 take 1 puff(s) by mouth twice daily Budesonide-Formoterol (Symbicort) 160-4.5 mcg/actuation HFA aerosol inhaler Discontinued 2 PUFF INHALATION TWICE A DAY March 31, 2021 12:00am January 01, 2022 10:04am administer with spacer, rinse mouth after each use Comment on above: as needed. cholecalciferol 0.125 mg oral capsule (20 sources) Vitamin D Start: take 1 capsule by mouth once daily Cholecalciferol (Vitamin D3) 125 mcg (5,000 unit) Capsule Active 125 ug PO DAILY June 02, 2021 1:00am vitamin Start: 04-02-2019 End: 05-22-2021 take 1 capsule by mouth once daily Cholecalciferol (Vitamin D3) 2,000 UNIT capsule Discontinued 2000 U PO DAILY April 02, 2019 1:00am May 22, 2021 3:11pm cholecalciferol, vitamin D3, (VITAMIN D3 ORAL) (20 sources) take 2000 [IU] by mouth once daily cholecalciferol, vitamin D3, (VITAMIN D3 ORAL) Take 2,000 Units by mouth once daily. Active take 2000 [IU] by mouth once mateo ly cholecalciferol, vitamin D3, (VITAMIN D3 ORAL) Take 2,000 Units by mouth once daily. 0 Active cholecalciferol, vitamin D3, (VITAMIN D3 ORAL) Take 2,000 Units by mouth. 0 Active Comment on above: Take 2,000 Units by mouth. Take 2,000 Units by mouth once daily. citalopram 40 mg oral tablet (20 sources) Serotonin Reuptake Inhibitor Start: 11-07-2018 End: 06-12-2024 take 1 tablet by mouth once daily citalopram (CELEXA) 40 mg tablet Indications: Depression, unspecified depression type Take 1 tablet by mouth once daily. 90 tablet 3 06/12/2024 Active Start: 01-14-2013 End: 05-02-2018 take 2 tablets by mouth once daily Citalopram 20 MG tablet Discontinued 40 mg PO DAILY January 14, 2013 12:00am May 02, 2018 11:52am Start: 01-14-2013 End: 05-02-2018 take 40 mg by mouth once daily Citalopram Discontinued 40 MG PO DAILY January 14, 2013 12:00am May 02, 2018 11:52am Comment on above: Take 1 tablet by willy th once daily. Plavix (15 sources) [id number] Platelet Inhibitor Start: 09-28-2021 Plavix Oral, 0 Refill(s) Start Date: 09/28/21 Status: Ordered Start: 06-02-2021 End: 06-29-2021 Clopidogrel (Plavix) 75 mg t ablet Discontinued 75 mg PO DAILY 30 0 June 02nd, 2022 1:00am June 29, 2021 2:28pm take 4 pills day one, then once a day after. codeine phosphate 2 mg/ml / guaiFENesin 20 mg/ml oral solution (3 sources) Opioid Agonist Start: 07-05-2024 End: 07-12-2024 take 5 mL by mouth four times daily as needed for cough codeine-guaiFENesin (GUAIFENESIN AC) 10-100 mg/5 mL syrup Indications: Acute cough , Sinobronchitis Take 5 mL by mouth four times a day as needed for cough for up to 7 days. 118 mL 07/05/2024 07/12/2024 Active dicyclomine hydrochloride 20 mg oral tablet (20 sources) Anticholinergic Start: 05-10-2022 take 1 tablet by mouth three times daily as needed Dicyclomine 20 mg tablet Active 20 mg PO THREE TIMES A DAY as needed for abdominal cramping May 10, 2022 2:59pm Start: 05-04-2020 End: 05-22-2021 take 2 capsules by mouth three times daily before mealtime Dicyclomine 10 MG capsule Discontinued 20 mg PO THREE TIMES DAILY BEFORE MEALS May 04, 2020 1:00am May 22, 2021 3:09pm Start: 05-04-2020 End: 05-22-2021 take 20 mg by mouth three times daily before mealtime Dicyclomine Discontinued 20 MG PO THREE TIMES DAILY BEFORE MEALS May 04, 2020 1:00am May 22, 2021 3:09pm elderberry fruit 200 mg oral capsule (20 sources) Start: 09-09-2024 take 1 capsule by mouth once daily Elderberry Fruit 200 mg capsule Active 200 mg PO DAILY September 09, 2024 12:00am take 1 tablet by mouth once valdemar y elderberry fruit (ELDERBERRY ORAL) Take 1 tablet by mouth once daily. Active enteric contrast (will be provided with radiology test) (2 sources) Start: 08-01-2024 End: 08-02-2024 enteric contrast (will be provided with radiology test) For CT CHESTABD/PEL W IVCON Routine order Administer, As Directed One Time Only, via Oral, Rectal, both Oral and Rectal, Enteric Tube, Stoma or Indwelling Catheter, Enteric Contrast as designated per enteric contrast guidelines 1 each 08/01/2024 08/02/2024 Active Start: 06-08-2023 End: 06-09-2023 enteric contrast (will be pr ovided with radiology test) Indications: Malignant neoplasm of breast in female, estrogen receptor positive, unspecified laterality, unspecified site of breast (HCC) For CT CHESTABD/PEL W IVCON Routine order Administer, As Directed One Time Only, via Oral, Rectal, both Oral and Rectal, Enteric Tube, Stoma or Indwelling Catheter, Enteric Contrast as designated per enteric contrast guidelines 1 Each 0 06/08/2023 06/09/2023 Active Comment on above: For CT CHESTABD/PEL W IVCON Routine order Administer, As Directed One Time Only, via Oral, Rectal, both Oral and Rectal, Enteric Tube, Stoma or Indwelling Catheter, Enteric Contrast as designated per enteric contrast guidelines [id number] 0.3 ml EPINEPHrine 1 mg/ml auto-injector (20 sources) alpha-Adrenergic Agonist, beta-Adrenergic Agonist, Catecholamine Start: 6 EPINEPHrine (EPIPEN) 0.3 mg/0.3 mL (1:1,000) auto-injector Indications: Seafood allergy, anaphylaxis, sequela (Dr. Wadsworth) 05/09/2015 Active Comment on above: (Dr. Wadsworth) fluconazole 200 mg oral tablet (1 source) Azole Antifungal Start: 5 End: 5 take 1 tablet by mouth once fluconazole (DIFLUCAN) 200 mg tablet Take 1 tablet by mouth one time only for 1 dose. 1 tablet 07/12/2024 07/12/2024 Active fluticasone propionate 0.05 mg/actuat metered dose nasal spray (20 sources) Corticosteroid Start: 1 End: 5 take 2 spray(s) nasal route once daily as needed fluticasone (FLONASE) 50 mcg/actuation nasal spray Indications: Allergic rhinitis, unspecified seasonality, unspecified trigger Use 2 Sprays in each nostril once daily. as needed. Rinse mouth after use. 4 Each 3 06/12/2024 Active Start: 05-20-2020 End: 06-11-2020 Fluticasone Propionate 1 SPR AY spray,suspension Discontinued 1 NMA NASAL TWICE A DAY 1 May 20, 2020 1:00am June 11, 2020 2:07pm Start: 05-04-2020 Fluticasone Pr opionate 16 GM spray,suspension Active 1 NMA INTRANASAL TWICE A DAY as needed for Congestion May 04, 2020 8:38am Start: 03-07-2019 End: 05-04-2020 Fluticasone Propionate 50 mc g/actuation spray,suspension Discontinued 1 NMA INTRANASAL TWICE A DAY 16 March 07, 2019 1:00am May 04, 2020 8:39am Start: 03-07-2019 End: 06-11-2020 Fluticasone Propionate Disco ntinued 1 SPRAY NASAL TWICE A DAY 1 May 20, 2020 1:00am June 11, 2020 2:07pm Comment on above: Use 2 Sprays in each nostril once daily. Rinse mouth after use. Use 2 Sprays in each nostril once daily. as needed. Rinse mouth after use. gabapentin 600 mg oral tablet (20 sources) Anti-epileptic Agent Start: 01-29-2021 End: 12-09-2024 take 1 capsule by mouth twice daily as needed gabapentin (NEURONTIN) 100 mg capsule Indications: DDD (degenerative disc disease), lumbar , Bilateral sciatica Take 1 capsule by mouth two times a day as needed for up to 180 days. In addition to taking 600 mg pill at bedtime 180 capsule 1 06/12/2024 Active Start: 01-06-2019 take 1 capsule by mo ut once daily Gabapentin 100 MG capsule Active 100 mg PO DAILY January 06, 2019 12:00am nerve pain Start: 11-07-2018 End: 12-09-2024 take 1 tablet by mouth once daily at bedtime gabapentin (NEURONTIN) 600 mg tablet Indications: DDD (degenerative disc disease), lumbar , Bilateral sciatica , Fibromyalgia Take 1 tablet by mouth daily at bedtime for 180 days. As directed 90 tablet 1 06/12/2024 Active Comment on above: Take 1 capsule by mo uth twice daily as needed for up to 180 days. In addition to taking 600 mg pill at bedtime Take 1 tablet by willy th daily at bedtime for 180 days. As directed Take 1 capsule by mo uth two times a day as needed for up to 180 days. In addition to taking 600 mg pill at bedtime 12 hr guaiFENesin 600 mg extended release oral tablet (2 sources) Start: 2021 End: 2021 take 2 tablets by mouth twice daily guaiFENesin (MUCINEX) 600 mg 12 hr tablet Take 2 tablets by mouth twice daily for 7 days. 28 tablet 0 08/05/2021 08/12/2021 Active Comment on above: Take 2 tablets by [facility] twice daily for 7 days. hydroCHLOROthiazide 12.5 mg oral capsule (20 sources) Thiazide Diuretic Start: 2018 End: 2024 take 1 capsule by mouth once daily hydroCHLOROthiazide 12.5 mg capsule Indications: Essential hypertension Take 1 capsule by mouth once daily. As directed 90 capsule 3 06/12/2024 Active Comment on above: Take 1 capsule by [facility] once daily. As directed 24 hr isosorbide mononitrate 60 mg extended release oral tablet (20 sources) Nitrate Vasodilator Start: 2022 isosorbide mononitrate ER (IMDUR) 60 mg 24 hr tablet Start: 06-03-2021 End: 08-02-2024 take 1 tablet by mouth once daily, then take 1 tablet by mouth every twenty-four hours isosorbide mononitrate ER (IMDUR) 60 mg 24 hr tablet Take 60 mg by mouth once daily. 07/26/2022 Active Start: 06-02-2021 End: 06-03-2021 take 1 tablet by mouth once daily, then take 1 tablet by mouth every twenty-four hours Isosorbide Mononitrate 30 mg tablet extended release 24 hr Discontinued 30 mg PO DAILY 30 0 June 02, 2021 1:00am June 03, 2021 12:10pm Comment on above: Take 60 mg by mouth once daily. iv contrast (will be provided with radiology test) (3 sources) Start: 08-01-2024 End: 08-02-2024 iv contrast (will be provided with radiology test) CT Chest ABD/PEL-Inject, intravenously, once for 1 dose.No IV access, insert saline lock prior to the beginning of sedation, infusion, injection of imaging exam. Discontinue saline lock post exam. If Pt. has a central line or IVAD, may access for administration according to line specific nursing protocol. Once exam is complete flush line and de-access according to line specific nursing protocol in the CT contrast administration guidelines link. 1 each 08/01/2024 08/02/2024 Active Start: 06-08-2023 End: 06-09-2023 iv contrast (will be provide d with radiology test) Indications: Malignant neoplasm of breast in female, estrogen receptor positive, unspecified laterality, unspecified site of breast (HCC) CT Chest ABD/PEL-Inject, intravenously, once for 1 dose.No IV access, insert saline lock prior to the beginning of sedation, infusion, injection of imaging exam. Discontinue saline lock post exam. If Pt. has a central line or IVAD, may access for administration according to line specific nursing protocol. Once exam is complete flush line and de-access according to line specific nursing protocol in the CT contrast administration guidelines link. 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 No IV [...] in the MR contrast administration guidelines link CT Chest ABD/PEL-Inj ect, intravenously, once for 1 dose.No IV access, insert saline lock prior to the beginning of sedation, infusion, injection of imaging exam. Discontinue saline lock post exam. If Pt. has a central line or IVAD, may access for administration according to line specific nursing protocol. Once exam is complete flush line and de-access according to line specific nursing protocol in the CT contrast administration guidelines link. losartan potassium 25 mg oral tablet (20 sources) Angiotensin 2 Receptor Ava Start: 01-06-2022 End: 01-06-2022 Losartan 25 mg tablet Discontinued 12.5 mg PO DAILY January 06, 2022 1:pm January 06, 2022 2:03pm blood pressure Start: 01-06-2022 End: 01-06-2022 take 12.5 mg by mouth once daily Losartan Discontinued 12.5 MG PO DAILY January 06, 2022 1:pm January 06, 2022 2:03pm Start: 05-02-2018 End: 12-04-2024 take 1 tablet by mouth once daily losartan (COZAAR) 25 mg tablet Take 1 tablet by mouth once daily. 90 tablet 3 06/12/2024 Active Comment on above: Take 1 tablet by willy th once daily. meclizine hydrochloride 25 mg oral tablet (20 sources) Antiemetic Start: 06-21-19 End: 06-13-19 take 1 tablet by mouth every six hours as needed for dizziness meclizine (ANTIVERT) 25 mg tab Indications: Benign paroxysmal positional vertigo, unspecified laterality Take 1 tablet by mouth every 6 hours as needed (dizziness). 90 tablet 1 06/12/2024 Active Comment on above: Take 1 tablet by willy th every 6 hours as needed (dizziness). metoprolol tartrate 25 mg oral tablet (20 sources) beta-Adrenergic Ava Start: 09-29-19 Metoprolol Succinate ER 25 mg oral TABLET extended release 0 Refill(s) Start Date: 09/28/21 Status: Ordered Start: 04-24-2021 End: 10-06-2022 take 2 tablets by mouth once daily Metoprolol Succinate 25 mg tablet extended release 24 hr Discontinued 12.5 mg PO DAILY 90 May 15, 2021 4:57pm October 06, 2022 2:34pm On Hold: Bradycardia Start: 04-24-2021 End: 10-06-2022 take 12.5 mg by mouth once daily Metoprolol Succinate Discontinued 12.5 MG PO DAILY May 15, 2021 4:57pm October 06, 2022 2:34pm On Hold: Bradycardia Start: 04-22-2021 End: 04-24-2021 take 1 tablet by mouth once daily Metoprolol Succinate 25 mg tablet extended release 24 hr Discontinued 25 mg PO DAILY April 22, 2021 1:00am April 24, 2021 2:06pm Start: 08-18-2020 End: 11-28-2023 take 1 tablet by mouth once daily metoprolol succinate ER (TOPROL XL) 50 mg 24 hr tablet Take 12.5 mg by mouth once daily. 08/18/2020 11/28/2023 Discontinued Start: 08-18-2020 End: 04-22-2021 take 1 tablet by mouth once daily Metoprolol Succinate 50 mg tablet extended release 24 hr Discontinued 50 mg PO DAILY 30 August 18, 2020 12:00am April 22, 2021 11:02am This is a dose increase Start: 08-01-2020 End: 08-18-2020 take 1 tablet by mouth once daily Metoprolol Succinate 25 mg tablet extended release 24 hr Discontinued 25 mg PO DAILY 30 August 01, 2020 3:40pm August 18, 2020 5:25pm Comment on above: Take 12.5 mg by mout h once daily. montelukast 10 mg oral tablet (20 sources) Leukotriene Receptor Antagonist Start: End: take 1 tablet by mouth once daily at bedtime montelukast (SINGULAIR) 10 mg tablet Indications: Allergic rhinitis, unspecified seasonality, unspecified trigger Take 1 tablet by mouth daily at bedtime. 30 tablet 11 04/05/2023 Active Comment on above: Take 1 tablet by willy th daily at bedtime. Multivitamin (Daily Multi-Vitamin) tablet (4 sources) Start: Multivitamin (Daily Multi-Vitamin) tablet Active 1 {tbl} PO DAILY November 23, 2023 12:00am multivitamin tablet (20 sources) take 1 tablet by mouth once daily multivitamin tablet Take 1 tablet by mouth once daily. Active nitrofurantoin, macrocrystals 25 mg / nitrofurantoin, monohydrate 75 mg oral capsule (2 sources) Nitrofuran Antibacterial Start: End: take 1 capsule by mouth twice daily nitrofurantoin monohydrate and macrocrystal (MACROBID) 100 mg capsule Indications: Dysuria Take 1 capsule by mouth two times a day for 3 days. 6 capsule 05/23/2024 05/26/2024 Active nystatin 602100 unt/ml oral suspension (20 sources) Polyene Antifungal Start: End: nystatin (MYCOSTATIN) 100,000 unit/mL suspension Indications: Thrush Take 5 mL by mouth four times daily. 1tsp swish in mouth for several minutes, then swallow (or expectorate) 4 times daily until gone. 200 mL 07/12/2024 Active nystatin 100 unt/mg / triamcinolone acetonide 0.001 mg/mg topical ointment (5 sources) Polyene Antifungal, Corticosteroid Start: End: nystatin-triamcinolon e (MYCOLOG) ointment Apply 1 application to affected area two times a day for 14 days. Apply sparingly to perineum / affected area ,twice daily for irritation/infection. After 2 weeks use every other day as needed for itching and irritation. 30 g 1 09/27/2024 10/11/2024 Active palbociclib 75 mg oral tablet (20 sources) Kinase Inhibitor Start: End: palbociclib (IBRANCE) 75 mg tablet Take 1 tablet (75 mg) by mouth once daily. Take for 21 days on, followed by 7 days off. Take with or without food. 21 tablet 5 10/24/2024 Active Start: 09-24-2024 End: 10-24-2024 palbociclib (IBRANCE) 100 mg tablet Take 1 tablet (100mg) by mouth once daily for 21 days on, followed by 7 days off. Take with or without food. 21 tablet 5 09/24/2024 10/24/2024 Discontinued (Side Effects) Start: 09-07-2024 End: 09-21-2024 palbociclib (IBRANCE) 100 mg tablet Take 1 tablet (100mg) by mouth once daily for 21 days on, followed by 7 days off. Take with or without food. 21 tablet 5 09/07/2024 09/21/2024 Discontinued Start: 11-23-2023 Palbociclib (I brance) 125 mg capsule Active 125 mg PO DAILY November 23, 2023 12:00am administer on days 1 through 21 of a 28-day treatment cycle Start: 07-05-2023 End: 09-07-2024 palbociclib (IBRANCE) 125 mg tablet Take 1 tablet (125 mg) by mouth once daily. Take for 21 days on, followed by 7 days off. Take with or without food. 21 tablet 11 07/05/2023 09/07/2024 Discontinued (Side Effects) Comment on above: Take 1 tablet (125 m g) by mouth once daily. Take for 21 days on, followed by 7 days off. Take with or without food. pantoprazole 40 mg delayed release oral tablet (20 sources) Proton Pump Inhibitor Start: take 1 tablet by mouth twice daily Pantoprazole 40 mg tablet,delayed release (DR/EC) Active 40 mg PO TWICE A DAY August 09, 2024 11:14am reflux Start: 09-12-2019 End: 08-09-2024 take 1 tablet by mouth once daily before breakfast pantoprazole DR (PROTONIX) 40 mg tablet Take 1 tablet by mouth daily before breakfast. Take on empty stomach, 1/2 hr before meal. 90 tablet 3 06/12/2024 Active Comment on above: Take 1 tablet by willy th daily before breakfast. Take on empty stomach, 1/2 hr before meal. phenylephrine hydrochloride 25 mg/ml ophthalmic solution (6 sources) alpha-1 Adrenergic Agonist Start: 11-08-2024 End: 11-09-2024 PHENYLephrine 2.5 % 1 drop (AK-DILATE, JEREMY-SYNEPHRINE) Start: 11-08-2024 End: 11-09-2024 1 drop, BOTH EYES, DIRECT ED, Starting on Micaela 11/08/24 at 1430, Until Tue11/09/24 at 0229, Administer for dilation PROTECT FROM LIGHT Start: 11-07-2023 End: 11-08-2023 PHENYLephrine 2.5 % 1 Drop ( AK-DILATE, JEREMY-SYNEPHRINE) Start: 07-23-2022 End: 07-24-2022 PHENYLephrine 2.5 % 1 Drop ( AK-DILATE, JEREMY-SYNEPHRINE) Start: 03-02-2022 End: 03-03-2022 PHENYLephrine 2.5 % 1 Drop ( AK-DILATE, JEREMY-SYNEPHRINE) prednisoLONE acetate 10 mg/ml ophthalmic suspension (7 sources) Corticosteroid Start: 07-23-2022 End: 08-06-2022 prednisoLONE acetate (PRED FORTE) 1 % ophthalmic suspension Use 1 Drop in the left eye every 2 hours for 14 days. 5 mL 1 07/23/2022 08/06/2022 Active Start: 06-02-2022 End: 07-23-2022 prednisoLONE acetate (PRED F ORTE, ECONOPRED PLUS) 1 % ophthalmic suspension Use 1 Drop in the right eye four times daily. Start drops 2 (two) days prior to your scheduled surgery date four times a day . Use one drop the morning of surgery. Restart the drops four times a day for 7 (seven) days, then decrease to three times a day for 7 (seven) days, the decrease to twice a day for 7 (seven) days, the decrease to once a day for 7 (seven) days, then STOP. 10 mL 1 06/02/2022 07/23/2022 Discontinued (Other) Comment on above: Use 1 Drop in the ri ght eye four times daily. Start drops 2 (two) days prior to your scheduled surgery date four times a day . Use one drop the morning of surgery. Restart the drops four times a day for 7 (seven) days, then decrease to three times a day for 7 (seven) days, the decrease to twice a day for 7 (seven) days, the decrease to once a day for 7 (seven) days, then STOP. Use 1 Drop in the le ft eye every 2 hours for 14 days. predniSONE 10 mg oral tablet (20 sources) Start: 07-05-2024 End: 09-27-2024 predniSONE (DELTASONE) 10 mg tablet Take four tablets daily for 3 days then three tablets daily for 3 days then two tablets daily for 3 days then one tablet daily for 3 days. 30 tablet 07/05/2024 09/27/2024 Discontinued Start: 03-20-2024 End: 03-25-2024 take 2 tablets by mouth once daily at mealtime predniSONE (DELTASONE) 20 mg tablet Indications: Sinobronchitis Take 2 tablets by mouth once daily for 5 days. Take daily with food. 10 tablet 03/20/2024 03/25/2024 Active Start: 01-11-2024 End: 08-09-2024 take 3 tablets by mouth once daily at mealtime Prednisone 20 mg tablet Discontinued 60 mg PO daily 15 0 January 11, 2024 12:00am August 09, 2024 11:16am administer with food or milk Start: 11-03-2022 predniSONE (DE LTASONE) 10 mg tablet Indications: Primary osteoarthritis of right hip 6 tabs po day 1 and 2, then 5 tabs day 3 and 4, 4 tabs day 5 and 6, 3 tabs day 7 and 8, 2 tabs day 9 and 10, 1 tab day 11 and 12. 42 tablet 0 11/03/2022 Active Start: 06-10-2022 End: 07-02-2022 take 1 tablet by mouth once daily Prednisone 20 mg tablet Discontinued 20 mg PO DAILY 5 5 0 June 10, 2022 1:00am July 02, 2022 9:42am Start: 04-07-2022 End: 05-06-2022 Prednisone 10 mg tablet Disc ontinued 10 mg PO daily 30 0 April 07, 2022 1:00am May 06, 2022 2:32pm take 4 tabs for three days, then 3 tabs for three days, then 2 tabs for three days, then 1 tab for 3 days Start: 09-28-2021 Deltasone 20mg tab (TAPER) 0 Refill(s) Start Date: 09/28/21 Status: Ordered Start: 09-01-2021 End: 09-06-2021 take 2 tablets by mouth once daily predniSONE (DELTASONE) 20 mg tablet Indications: Hand pain, right Take 2 tablets by mouth once daily for 5 days. 10 tablet 0 09/01/2021 09/06/2021 Active Start: 06-02-2021 End: 06-03-2021 Prednisone 20 mg tablet Disc ontinued 20 mg PO .COMPLEX 9 0 June 02, 2021 1:00am June 03, 2021 12:11pm Take 3 pills at noon day before heart cath, 3 pills at bedtime day before heart cath and 3 pills morning of heart cath Start: 08-26-2019 End: 2019 take 1 tablet by mouth once daily predniSONE (DELTASONE) 20 MG tablet Take 1 (one) tablet (20 mg total) by mouth daily for 10 days . 10 tablet 0 08/26/2019 2019 Active Start: 02-07-2019 End: 03-07-2019 Prednisone 10 mg tablet Disc ontinued 10 mg PO daily 30 February 07, 2019 12:00am March 07, 2019 9:45am take 4 tabs for three days, then 3 tabs for three days, then 2 tabs for three days, then 1 tab for 3 days Start: 01-06-2019 End: 01-24-2019 take 4 tablets by mouth once daily, then take 3 tablets by mouth once daily, then take 2 tablets by mouth once daily, then take 1 tablet by mouth once daily, then take 1 tablet by mouth every other day Prednisone 10 MG tablet Discontinued 10 mg PO DIRECTED 33 January 06, 2019 12:00am January 24, 2019 8:10am Take 4 tablets daily for 3 days, then 3 daily for 3 days, then 2 daily for 3 days, then 1 a day for 3 days then 1 QOD for 3 doses. Start: 01-31-2013 End: 04-05-2013 take 6 tablets by mouth once daily, then take 4 tablets by mouth once daily, then take 2 tablets by mouth once daily, then take 1 tablet by mouth once daily Prednisone 10 MG tablet Discontinued 10 mg PO DAILY 48 January 31, 2013 12:00am April 05, 2013 1:43pm 6 po qd x 3 days, 4 po qd x 3 days, 2 po qd x 3 days, 1 po qd x 3 days Comment on above: Take 2 tablets by mo uth once daily for 5 days. 6 tabs po day 1 and 2, then 5 tabs day 3 and 4, 4 tabs day 5 and 6, 3 tabs day 7 and 8, 2 tabs day 9 and 10, 1 tab day 11 and 12. prochlorperazine 10 mg oral tablet (20 sources) Phenothiazine Start: take 1 tablet by mouth every six hours as needed prochlorperazine (COMPAZINE) 10 mg tablet Take 1 tablet by mouth every 6 hours as needed. 30 tablet 1 10/26/2023 Active proparacaine hydrochloride 5 mg/ml ophthalmic solution (3 sources) Local Anesthetic Start: End: proparacaine 0.5 % 1 Drop (ALCAINE) Start: 07-23-2022 End: 07-24-2022 proparacaine 0.5 % 1 Drop (A LCAINE) Start: 03-02-2022 End: 03-03-2022 proparacaine 0.5 % 1 Drop (A LCAINE) tropicamide 10 mg/ml ophthalmic solution (6 sources) Anticholinergic Start: 11-08-2024 End: 11-09-2024 tropicamide 1 % 1 drop (MYDRIACYL) Start: 11-08-2024 End: 11-09-2024 1 drop, BOTH EYES, DIRECT ED, Starting on Micaela 11/08/24 at 1430, Until Tue11/09/24 at 0229, Administer for dilation Start: 11-07-2023 End: 11-08-2023 tropicamide 1 % 1 Drop (MYDR IACYL) Start: 07-23-2022 End: 07-24-2022 tropicamide 1 % 1 Drop (MYDR IACYL) Start: 03-02-2022 End: 03-03-2022 tropicamide 1 % 1 Drop (MYDR IACYL) Completed/Discontinued Medications Medication Drug Class(es) Dates Sig (Normalized) Sig (Original) acetaminophen 325 mg / HYDROcodone bitartrate 5 mg oral tablet (20 sources) Opioid Agonist Start: 12-14-2022 End: 09-09-2024 Hydrocodone-Acetamino phen 5-325 mg tablet Discontinued 1 {tbl} PO EVERY 4 HOURS NEEDED as needed for Pain 10 3 0 December 14, 2022 November 23, 2023 2:56pm Osteoarthritis Unspecified osteoarthritis, unspecified site Start: 12-14-2022 take 1 tablet by willy th every four hours as needed Hydrocodone-Acetaminophen Active 1 TABLE T PO EVERY 4 HOURS NEEDED 10 3 December 14, 2022 Start: 06-12-2019 End: 06-19-2019 Hydrocodone-Acetaminophen 1 TABLET tablet Discontinued 1 {tbl} PO EVERY 4 HOURS NEEDED as needed for Pain 10 7 0 June 12, 2019 June 18, 2019 12:00am June 19, 2019 12:08am Acquired stenosis of urethral meatus Dysuria Urinary urgency Dysuria Urgency of urination Start: 06-12-2019 End: 06-19-2019 take 1 tablet by mouth every four hours as needed Hydrocodone-Acetaminophen Discontinued 1 TABLET PO EVERY 4 HOURS NEEDED 10 7 June 12, 2019 June 19, 2019 12:08am acetaminophen 325 mg / oxyCODONE hydrochloride 5 mg oral tablet (16 sources) Opioid Agonist Start: 10-09-2024 End: 12-04-2024 Oxycodone-Acetaminophen (Percocet) 5-325 mg tablet Discontinued 1 {tbl} PO EVERY 6 HOURS as needed for pain 14 4 0 October 09, 2024 December 04, 2024 2:46pm Carcinoma of breast metastatic to bone Malignant neoplasm of unspecified site of unspecified female breast Secondary malignant neoplasm of bone Start: 05-12-2018 End: 05-15-2018 Oxycodone-Acetaminophen 1 TA BLET tablet Discontinued 1 {tbl} PO EVERY 6 HOURS NEEDED as needed for Pain 12 3 0 May 12, 2018 1:00am May 14, 2018 1:00am May 15, 2018 1:09am Contusion of hip Contusion of unspecified hip, initial encounter Start: 05-12-2018 End: 05-15-2018 take 1 tablet by mouth every six hours as needed Oxycodone-Acetaminophen Discontinued 1 TABLET PO EVERY 6 HOURS NEEDED 12 3 May 12, 2018 1:00am May 15, 2018 1:09am albuterol 0.833 mg/ml / ipratropium bromide 0.167 mg/ml inhalant solution (2 sources) Anticholinergic, beta2-Adrenergic Agonist Start: 08-26-2019 End: 08-26-2019 ipratropium-albuteroL (DUO-NEB) 0.5-2.5 mg/3 ml nebulizer solution 3 mL Start: 08-20-2019 End: 08-20-2019 ipratropium-albuteroL (DUO-N EB) 0.5-2.5 mg/3 ml nebulizer solution 3 mL albuterol inhaler 2 puff (1 source) Start: 08-20-2019 End: 08-20-2019 albuterol inhaler 2 puff amoxicillin 875 mg / clavulanate 125 mg oral tablet (14 sources) Penicillin-class Antibacterial Start: 02-07-2019 End: 03-07-2019 Amoxicillin-Pot Clavulanate (Augmentin) 875-125 mg tablet Discontinued 1 {tbl} PO TWICE A DAY 20 0 February 07, 2019 12:00am March 07, 2019 9:45am aspirin 81 mg delayed release oral tablet (20 sources) Platelet Aggregation Inhibitor, Nonsteroidal Anti-inflammatory Drug Start: 06-02-2021 End: 11-23-2023 take 1 tablet by mouth once daily Aspirin (Adult Aspirin Regimen) 81 mg tablet,delayed release (DR/EC) Discontinued 81 mg PO DAILY 30 0 June 02, 2021 1:00am November 23, 2023 2:57pm Start: 04-27-2013 take 1 tablet by willy th once daily aspirin 81 mg chewable tablet Take 81 mg by mouth once daily. 0 04/27/2013 Active Comment on above: Take 1 tablet by willy th once daily. Take 81 mg by mouth once daily. atorvastatin 40 mg oral tablet (20 sources) HMG-CoA Reductase Inhibitor Start: 06-03-19 End: 12-05-19 take 1 tablet by mouth once daily at bedtime atorvastatin (LIPITOR) 40 mg tablet Take 1 tablet by mouth daily at bedtime. On Hold 90 tablet 2 09/27/2024 Active Comment on above: Take 40 mg by mouth daily at bedtime. Take 1 tablet by willy th daily at bedtime. benzocaine 15 mg / menthol 3.6 mg oral lozenge (20 sources) Standardized Chemical Allergen Start: 05-27-19 End: 11-07-19 benzocaine-menthol (CEPACOL) 15-3.6 mg lozg Use 1 Lozenge as instructed every 2 hours as needed. for sore throat 60 Lozenge 0 05/27/2023 11/07/2023 Discontinued (Other) Comment on above: Use 1 Lozenge as ins tructed every 2 hours as needed. for sore throat benzonatate 100 mg oral capsule (20 sources) Non-narcotic Antitussive Start: 05-08-19 End: 10-01-19 take 1 capsule by mouth three times daily as needed for cough Benzonatate 100 mg capsule Discontinued 100 mg PO THREE TIMES A DAY as needed for Cough May 22, 2021 1:00am July 02, 2022 9:40am Start: 08-24-2019 End: 08-31-2019 take 2 capsules by mouth three times daily as needed for cough benzonatate (TESSALON) 100 MG capsule Take 2 (two) capsules (200 mg total) by mouth 3 (three) times a day as needed for cough . 20 capsule 0 08/24/2019 08/31/2019 Active Start: 08-24-2019 End: 08-24-2019 benzonatate (TESSALON) capsu le 200 mg Start: 01-31-2013 End: 04-05-2013 take 2 capsules by mouth three times daily as needed for cough Benzonatate 100 MG capsule Discontinued 200 mg PO 3 TIMES DAILY NEEDED as needed for Cough February 07, 2013 12:00am April 05, 2013 1:43pm Start: 01-31-2013 End: 04-05-2013 take 200 mg by mouth three times daily as needed Benzonatate Discontinued 200 MG PO 3 TIMES DAILY NEEDED February 07, 2013 12:00am April 05, 2013 1:43pm Comment on above: Take 1 capsule by mo [facility] three times daily as needed for cough. 60 actuat budesonide 0.09 mg/actuat dry powder inhaler (20 sources) Corticosteroid Start: 07-11-2019 End: 06-11-2020 Budesonide Discontinued 1 INH INHALATION TWICE A DAY July 11, 2019 1:08pm June 11, 2020 2:06pm Start: 01-06-2019 End: 06-11-2020 Budesonide 90 mcg/actuation aerosol powdr breath activated Discontinued 1 NMA INHALATION TWICE A DAY 04 16July 11, 2019 1:08pm June 11, 2020 2:06pm Start: 01-06-2019 End: 07-11-2019 take 1 puff(s) by inhalation twice daily Budesonide Discontinued 1 PUFF INHALATION TWICE A DAY January 06, 2019 12:00am July 11, 2019 1:08pm cetirizine hydrochloride 10 mg oral tablet (15 sources) Histamine-1 Receptor Antagonist Start: 06-20-2020 End: 12-11-2021 take 1 tablet by mouth once daily cetirizine (ZYRTEC) 10 mg tablet Indications: Nasal congestion Take 1 tablet by mouth once daily. 30 tablet 11 06/20/2020 12/11/2021 Discontinued Comment on above: Take 1 tablet by willy once daily. dexamethasone 2 mg oral tablet (14 sources) Corticosteroid Start: 04-22-2021 End: 05-22-2021 take 3 tablets by mouth once daily Dexamethasone 2 mg tablet Discontinued 6 mg PO DAILY 18 0 April 222 1:00am May 22, 2021 3:09pm start on 04/23/21 Start: 04-22-2021 End: 05-22-2021 take 6 mg by mouth once daily Dexamethasone Discontinu ed 6 MG PO DAILY April 22, 2021 1:00am May 22, 2021 3:09pm start on 04/23/21 dextromethorphan hydrobromide 1 mg/ml / guaiFENesin 20 mg/ml oral solution (20 sources) Uncompetitive V-tkwaqn-H-aspartate Receptor Antagonist, Sigma-1 Agonist Start: 01-18-2024 End: 07-05-2024 take 10 mL by mouth every four hours as needed Dextromethorphan-guaiFENesin (ROBITUSSIN COUGH-CHEST JUDIT DM) 5-100 mg/5 mL liqd Indications: Sinobronchitis Take 10 mL by mouth every 4 hours as needed. 237 mL 03/20/2024 07/05/2024 Discontinued diphenhydrAMINE hydrochloride 25 mg oral capsule (14 sources) Histamine-1 Receptor Antagonist Start: 06-02-2021 End: 06-03-2021 Diphenhydramine Hcl (Benadryl) 25 mg capsule Discontinued 25 mg PO .COMPLEX 4 June 02, 2021 1:00am June 03, 2021 12:12pm Take 2 pills at bedtime night before heart cath, take 2 pills morning of heart cath doxycycline monohydrate 100 mg oral capsule (20 sources) Tetracycline-class Drug Start: 03-23-2024 End: 08-09-2024 take 1 capsule by mouth twice daily Doxycycline Monohydrate 100 mg capsule Discontinued 100 mg PO TWICE A DAY 6 0 March 23, 2024 1:00am August 09, 2024 11:16am Start: 03-20-2024 End: 03-27-2024 take 1 tablet by mouth twice daily at mealtime doxycycline (VIBRA-TABS) 100 mg tablet Indications: Sinobronchitis Take 1 tablet by mouth two times a day for 7 days. Take with food 14 tablet 03/20/2024 03/27/2024 Active Start: 08-24-2019 End: 09-03-2019 take 1 tablet by mouth twice daily doxycycline hyclate (VIBRA-TABS) 100 MG tablet Take 1 (one) tablet (100 mg total) by mouth 2 (two) times a day for 10 days . 20 tablet 0 08/24/2019 09/03/2019 Active Start: 08-24-2019 End: 08-24-2019 doxycycline (VIBRAMYCIN) ora l solid 100 mg Start: 02-07-2019 End: 02-07-2019 take 1 tablet by mouth twice daily Doxycycline Hyclate 100 mg tablet Discontinued 100 mg PO TWICE A DAY 20 0 February 07, 2019 12:00am February 07, 2019 3:18pm estradiol 0.1 mg/ml vaginal cream (20 sources) Estrogen Start: 11-18-2022 End: 11-28-2023 estradiol (ESTRACE) 0.01 % (0.1 mg/gram) vaginal cream Indications: Postmenopausal atrophic vaginitis Use 1 g vaginally two times a week. 42.5 g 3 11/18/2022 11/28/2023 Discontinued Comment on above: Use 1 g vaginally tw o times a week. estrogens, conjugated ([facility]) 0.625 mg/ml vaginal cream (20 sources) Estrogen Start: 12-11-2021 End: 11-18-2022 conjugated estrogens (PREMARIN) vaginal cream Indications: Postmenopausal atrophic vaginitis Use about pea-sized amount at urethral area as needed 30 g 3 12/11/2021 11/18/2022 Discontinued Start: 12-08-2016 End: 12-11-2021 conjugated estrogens (PREMAR IN) vaginal cream Indications: Postmenopausal atrophic vaginitis Use about pea-sized amount at urethral area as needed 1 Tube 2 12/08/2016 12/11/2021 Discontinued Comment on above: Use about pea-sized amount at urethral area as needed famotidine 20 mg oral tablet (14 sources) Histamine-2 Receptor Antagonist Start: 2 End: 2 Famotidine (Pepcid Ac) 20 mg tablet Discontinued 20 mg PO .COMPLEX 2 0 June 02, 2021 1:00am June 03, 2021 12:11pm take 1 pill night before heart cath, take 1 pills morning of heart cath furosemide 40 mg oral tablet (14 sources) Loop Diuretic Start: 6 End: 6 take 1 tablet by mouth twice daily Furosemide 40 MG tablet Discontinued 40 mg PO TWICE DAILY 10 0 April 20, 2015 1:00am November 06, 2015 3:13pm homatropine methylbromide 0.3 mg/ml / HYDROcodone bitartrate 1 mg/ml oral solution (10 sources) Opioid Agonist, Cholinergic Muscarinic Agonist Start: 3 End: 4 Hydrocodone-Homatrop ine (Hycodan) 5-1.5 mg/5 mL (5 mL) syrup Discontinued 5 mL PO 4 TIMES DAILY NEEDED as needed for cough 140 7 0 June 10, 2022 July 08, 2023 9:49am Viral upper respiratory tract infection Acute upper respiratory infection, unspecified Start: 06-10-2022 Hydrocodone-Ho matropine (Hycodan) 5-1.5 mg/5 mL (5 mL) syrup Active 5 ML PO 4 TIMES DAILY NEEDED 140 7 June 10, 2022 hydroCHLOROthiazide 12.5 mg / valsartan 80 mg oral tablet (20 sources) Thiazide Diuretic, Angiotensin 2 Receptor Ava Start: 05-28-2017 End: 05-02-2018 Valsartan-Hydrochlorothiazid e 1 TABLET tablet Discontinued 1 {tbl} PO EVERY OTHER DAY May 28, 2017 9:21pm May 02, 2018 11:50am Start: 05-28-2017 End: 05-02-2018 take 1 tablet by mouth every other day Valsartan-Hydrochlorothiazide Discontinu ed 1 TABLET PO EVERY OTHER DAY May 28, 2017 9:21pm May 02, 2018 11:50am Start: 11-06-2015 End: 05-28-2017 take 1 tablet by mouth once daily Valsartan-Hydrochlorothiazide (Diovan Hc t 80-12.5 Mg Tablet) 1 TABLET tablet Discontinued 1 {tbl} PO DAILY 30 0 November 06, 2015 12:00am May 28, 2017 9:22pm ketorolac tromethamine 5 mg/ml ophthalmic solution (5 sources) Nonsteroidal Anti-inflammatory Drug, Cyclooxygenase Inhibitor Start: 06-02-2022 End: 07-23-2022 keTORolac (ACULAR) 0.5 % ophthalmic solution Use 1 Drop in the right eye four times daily. Start drops 2 (two) days prior to your scheduled surgery date 4 four times a day in your left eye . Use one drop the morning of surgery. Restart following surgery four times a day for 7 (seven) days , then decrease to three times a day for 7 (seven) days, then STOP 5 mL 1 06/02/2022 07/23/2022 Discontinued (Other) Comment on above: Use 1 Drop in the ri ght eye four times daily. Start drops 2 (two) days prior to your scheduled surgery date 4 four times a day in your left eye . Use one drop the morning of surgery. Restart following surgery four times a day for 7 (seven) days , then decrease to three times a day for 7 (seven) days, then STOP 150 ml levoFLOXacin 5 mg/ml injection (1 source) Quinolone Antimicrobial Start: 08-26-2019 End: 08-26-2019 levoFLOXacin (LEVAQUIN) IVPB 750 mg (premix) loratadine 10 mg oral tablet (20 sources) Start: 01-20-2021 End: 11-07-2023 take 1 tablet by mouth once daily loratadine (CLARITIN) 10 mg tablet Take 1 tablet by mouth once daily. 20 tablet 01/20/2021 11/07/2023 Discontinued (Other) Comment on above: Take 1 tablet by willy th once daily. magnesium citrate 58.2 mg/ml oral solution (14 sources) Start: 05-04-2020 End: 06-11-2020 take 1 mL by mouth once Magnesium Citrate 300 ML solution Discontinued 300 mL PO ONE TIME 1 May 04, 2020 1:00am June 11, 2020 2:07pm Start: 05-04-2020 End: 06-11-2020 take 1 mL by mouth once Magnesium Citrate Discontinu ed 300 ML PO ONE TIME May 04, 2020 1:00am June 11, 2020 2:07pm methylPREDNISolone 125 mg injection (1 source) Corticosteroid Start: 08-26-2019 End: 08-26-2019 methylPREDNISolone sod suc(PF) (SOLU-medrol) Injection 125 mg moxifloxacin 5 mg/ml ophthalmic solution (5 sources) Quinolone Antimicrobial Start: 06-02-2022 End: 07-23-2022 moxifloxacin (VIGAMOX) 0.5 % ophthalmic solution Use 1 Drop in the left eye four times daily. Start drops 2 (two) days prior to your scheduled surgery date 4 four times a day in your left eye . Use one drop the morning of surgery. Restart following surgery four times a day for 7 (seven) days , then decrease to three times a day for 7 (seven) days, then STOP 3 mL 0 06/02/2022 07/23/2022 Discontinued (Course of therapy completed) Comment on above: Use 1 Drop in the le ft eye four times daily. Start drops 2 (two) days prior to your scheduled surgery date 4 four times a day in your left eye . Use one drop the morning of surgery. Restart following surgery four times a day for 7 (seven) days , then decrease to three times a day for 7 (seven) days, then STOP naproxen 500 mg oral tablet (14 sources) Nonsteroidal Anti-inflammatory Drug Start: 01-14-2013 End: 04-05-2013 take 1 tablet by mouth twice daily as needed for pain Naproxen 500 MG tablet Discontinued 500 mg PO TWICE DAILY NEEDED as needed for Pain January 14, 2013 12:00am April 05, 2013 1:43pm 2 ml ondansetron 2 mg/ml injection (1 source) Serotonin-3 Receptor Antagonist Start: 08-26-2019 End: 08-26-2019 ondansetron (ZOFRAN) injection 4 mg microencapsulated potassium chloride 20 meq extended release oral tablet (1 source) Start: 08-26-2019 End: 08-26-2019 potassium chloride SA (K-DUR,KLOR-CON) CR tablet 20 mEq 1000 ml sodium chloride 9 mg/ml injection (2 sources) Start: 08-26-2019 End: 08-26-2019 sodium chloride 0.9% (NS) bolus 500 mL Start: 08-23-2019 End: 08-24-2019 sodium chloride (PF) (NS) fl ush 5 mL sulfamethoxazole 800 mg / trimethoprim 160 mg oral tablet (14 sources) Dihydrofolate Reductase Inhibitor Antibacterial, Sulfonamide Antimicrobial Start: 06-12-2019 End: 06-15-2019 Sulfamethoxazole-Trimethopri m 1 TABLET tablet Discontinued 1 {tbl} PO TWICE A DAY 6 3 0 June 12, 2019 1:00am June 14, 2019 1:00am June 15, 2019 1:09am Start: 06-12-2019 End: 06-15-2019 take 1 tablet by mouth twice daily Sulfamethoxazole-Trimethoprim Discontinu ed 1 TABLET PO TWICE A DAY 6 3 June 12, 2019 1:00am June 15, 2019 1:09am triamcinolone acetonide 40 mg/ml injectable suspension (3 sources) Corticosteroid Start: 09-14-2019 End: 09-14-2019 Kenalog (triamcinolone acetonide) 40 mg/mL suspension for injection Discontinued 90 MG INTRAARTIC ONCE 2.25 September 14, 2019 2:16pm September 14, 2019 2:55pm 100 ml zoledronic acid 0.04 mg/ml injection (5 sources) Bisphosphonate Start: 10-24-2024 End: 10-24-2024 4 mg, INTRAVENOUS, Administer over 15 Minutes, ONCE, 1 dose, On Tue10/24/24 at 1330, Hazardous Potential Reproductive Risk Drug: Use appropriate PPE. Start: 05-09-2024 End: 05-09-2024 4 mg, INTRAVENOUS, Administe r over 15 Minutes, ONCE, 1 dose, On Tue05/09/24 at 1430, Hazardous Potential Reproductive Risk Drug: Use appropriate PPE. Start: 02-15-2024 End: 02-15-2024 4 mg, INTRAVENOUS, Administe r over 15 Minutes, ONCE, 1 dose, On Tue02/15/24 at 1430, Hazardous Potential Reproductive Risk Drug: Use appropriate PPE. Start: 11-23-2023 End: 11-23-2023 zoledronic ix-hyvhhkel-6.9Na Cl 4 mg iv piggyback 100 mL (ZOMETA) Start: 10-26-2023 End: 10-26-2023 zoledronic xf-wfflgogw-1.9Na Cl 4 mg iv piggyback 100 mL (ZOMETA) Problems Active Problems Problem Classification Problem Date Documented Date Episodic/Chronic Acute bronchitis (14 sources) Acute bronchitis with bronchospasm; Translations: [Acute bronchitis, unspecified] 02-20-2021 Episodic Adjustment disorders (3 sources) Mixed anxiety and depressive disorder; Translations: [Adjustment disorder with mixed anxiety and depressed mood] Onset: 09-27-2024 Chronic Allergic reactions (20 sources) Seafood-induced anaphylaxis; Translations: [Anaphylactic reaction due to other fish, initial encounter] 04-06-2021 Episodic Asthma (20 sources) Acute exacerbation of asthma; Translations: [Asthma] Onset: 07-28-2022 Chronic Cancer of breast (20 sources) Primary malignant neoplasm of breast; Translations: [Malignant neoplasm of unspecified site of left female breast] Onset: 03-17-2023 03-02-2023 Chronic Comment on above: Left breast Cardiac dysrhythmias (10 sources) Bradycardia; Translations: [Bradycardia, unspecified] 06-08-2022 Episodic Cataract (20 sources) Bilateral senile combined form cataracts of eyes; Translations: [Combined forms of age-related cataract, bilateral] Onset: 06-22-2022 Resolved: 06-22-2022 Chronic Chronic obstructive pulmonary disease and bronchiectasis (20 sources) Bronchitis; Translations: [Bronchitis, not specified as acute or chronic] 09-14-2019 Episodic Chronic obstructive pulmonary disease and bronchiectasis (1 source) Chronic obstructive pulmonary disease and bronchiectasis; Translations: [Other specified chronic obstructive pulmonary disease] Onset: 02-14-2025 Coronary atherosclerosis and other heart disease (20 sources) Preinfarction syndrome; Translations: [Unstable angina] Onset: 07-28-2022 Chronic Diabetes mellitus without complication (5 sources) Impaired fasting glycemia; Translations: [Impaired fasting glucose] Onset: 12-28-2024 Episodic Diseases of white blood cells (20 sources) Leukopenia; Translations: [Decreased white blood cell count, unspecified] 01-06-2019 Chronic Disorders of lipid metabolism (20 sources) Hyperlipidemia; Translations: [Hyperlipidemia, unspecified] Onset: 11-19-2021 01-06-2022 Chronic Esophageal disorders (20 sources) Gastroesophageal reflux disease; Translations: [Gastro-esophageal reflux disease without esophagitis] Onset: 07-28-2022 Chronic Essential hypertension (20 sources) Hypertensive disorder; Translations: [Essential (primary) hypertension] Onset: 09-16-2009 09-16-2009 Chronic Fluid and electrolyte disorders (20 sources) Hypokalemia; Translations: [Hypokalemia] Onset: 12-28-2024 Episodic Genitourinary symptoms and ill-defined conditions (20 sources) Dysuria; Translations: [Dysuria] Onset: 08-03-2024 05-10-2022 Episodic Headache; including migraine (10 sources) Headache; Translations: [Headache] 01-23-2023 Episodic Headache; including migraine (2 sources) Headache; including migraine; Translations: [Headache, unspecified headache type] Onset: 09-09-2024 Heart valve disorders (8 sources) Aortic valve sclerosis; Translations: [Other nonrheumatic aortic valve disorders] 04-28-2023 Chronic Inflammation; infection of eye (except that caused by tuberculosis or sexually transmitteddisease) (1 source) Intermediate uveitis; 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, left eye] Chronic Inflammation; infection of eye (except that caused by tuberculosis or sexually transmitteddisease) (3 sources) Anterior uveitis; 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] Episodic Menopausal disorders (4 sources) Atrophic vaginitis; Translations: [Postmenopausal atrophic vaginitis] Onset: 10-08-2024 Chronic Mood disorders (20 sources) Depressive disorder; Translations: [Depression] Onset: 02-05-2010 02-05-2010 Chronic Mycoses (2 sources) Candidiasis of mouth; Translations: [Candidal stomatitis] 05-19-2024 Episodic Nausea and vomiting (2 sources) Vomiting; Translations: [Vomiting, unspecified] Episodic Nonmalignant breast conditions (20 sources) Fibrocystic disease of breast; Translations: [Diffuse cystic mastopathy of unspecified breast] Onset: 11-24-2010 11-24-2010 Chronic Nonspecific chest pain (20 sources) Chest pain; Translations: [Chest pain, unspecified] Episodic Nutritional deficiencies (4 sources) Vitamin D deficiency; Translations: [Vitamin D deficiency, unspecified] Onset: 03-09-2023 Chronic Osteoarthritis (13 sources) Osteoarthritis of right hip joint; Translations: [Unilateral primary osteoarthritis, right hip] Onset: 01-14-2025 Chronic Other aftercare (2 sources) Patient encounter status; Translations: [Other long-term (current) drug therapy] Episodic Other aftercare (1 source) Other long-term (current) drug therapy; Translations: [Encounter for long-term current use of medication] Onset: 12-28-2024 Episodic Other connective tissue disease (20 sources) Fibromyalgia; Translations: [Fibromyalgia] 05-09-2015 Episodic Other connective tissue disease (1 source) Pain in right hand; Translations: [Pain in right hand] Episodic Other connective tissue disease (1 source) Pain in right foot; Translations: [Pain in right foot] 11-29-2022 Episodic Other diseases of bladder and urethra (14 sources) Stenosis of urinary meatus; Translations: [Acquired stenosis of urethral meatus] 05-04-2020 Episodic Other eye disorders (5 sources) Asteroid hyalosis of right eye; Translations: [Crystalline deposits in vitreous body, right eye] Chronic Other eye disorders (2 sources) Vitreous floaters of left eye; Translations: [Other vitreous opacities, left eye] Chronic Other eye disorders (1 source) Crystalline deposits in vitreous body, right eye; Translations: [Asteroid hyalosis of right eye] Onset: 11-08-2024 Chronic Other eye disorders (2 sources) Disorder of lacrimal gland; Translations: [Dry eye syndrome of bilateral lacrimal glands] 11-07-2023 Episodic Other female genital disorders (2 sources) Pruritus of vagina; Translations: [Other specified noninflammatory disorders of vagina] 11-18-2022 Episodic Other female genital disorders (1 source) Vulval irritation; Translations: [Other specified noninflammatory disorders of vulva and perineum] 09-27-2024 Episodic Other female genital disorders (1 source) Vaginal discharge; Translations: [Other specified noninflammatory disorders of vagina] 10-08-2024 Episodic Other lower respiratory disease (14 sources) Dyspnea on exertion; Translations: [Dyspnea, unspecified] 05-02-2018 Episodic Other lower respiratory disease (20 sources) Cough; Translations: [Cough in adult] 09-13-2019 Episodic Other lower respiratory disease (6 sources) Dyspnea; Translations: [Shortness of breath] 01-23-2023 Episodic Other lower respiratory disease (3 sources) Cough; Translations: [Acute cough] 01-18-2024 Episodic Other non-traumatic joint disorders (8 sources) Hip pain; Translations: [Pain in unspecified hip] 12-14-2022 Episodic Other non-traumatic joint disorders (2 sources) Pain in right hip joint; Translations: [Pain in right hip] 12-20-2022 Episodic Other non-traumatic joint disorders (1 source) Pain in right knee; Translations: [Pain in joint, lower leg] 09-30-2022 Episodic Other non-traumatic joint disorders (1 source) Pain in right hip; Translations: [Pain in right hip] Onset: 01-14-2025 Episodic Other nutritional; endocrine; and metabolic disorders (20 sources) Body mass index 30+ - obesity; Translations: [Obesity, unspecified] 11-20-2015 Chronic Other nutritional; endocrine; and metabolic disorders (14 sources) Obese class I; Translations: [Obesity, unspecified] 01-06-2019 Chronic Other nutritional; endocrine; and metabolic disorders (2 sources) Obesity, unspecified; Translations: [Obesity, unspecified] Chronic Other upper respiratory disease (3 sources) Allergic rhinitis; Translations: [Allergic rhinitis, unspecified] Chronic Other upper respiratory disease (1 source) Congestion of nasal sinus; Translations: [Nasal congestion] 11-28-2023 Episodic Other upper respiratory disease (1 source) Nasal congestion; Translations: [Nasal congestion] 07-05-2024 Episodic Other upper respiratory infections (2 sources) Chronic sinusitis; Translations: [Chronic sinusitis, unspecified] 03-20-2024 Chronic Pneumonia (except that caused by tuberculosis or sexually transmitted disease) (5 sources) Bronchopneumonia; Translations: [Pneumonia] 03-31-2024 Episodic Residual codes; unclassified (14 sources) FH: Cardiovascular disease; Translations: [Family history of ischemic heart disease and other diseases of the circulatory system] 01-06-2019 Episodic Comment on above: Mother with CAD and CABG X4 Residual codes; unclassified (1 source) Postmenopausal state; Translations: [Asymptomatic menopausal state] Episodic Residual codes; unclassified (2 sources) Menopause present; Translations: [Asymptomatic menopausal state] 05-27-2023 Episodic Residual codes; unclassified (1 source) Family history of diabetes mellitus; Translations: [Family history of diabetes mellitus] Onset: 12-28-2024 Episodic Secondary malignancies (1 source) Secondary malignant neoplasm of axillary lymph nodes; Translations: [Secondary and unspecified malignant neoplasm of axilla and upper limb lymph nodes] 03-24-2023 Chronic Secondary malignancies (1 source) Secondary and unspecified malignant neoplasm of axilla and upper limb lymph nodes; Translations: [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, left (HCC)] Onset: 03-17-2023 Chronic Secondary malignancies (1 source) Secondary malignant neoplasm of bone 10-24-2024 Chronic Secondary malignancies (1 source) Secondary malignant neoplasm of bone; Translations: [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)] Onset: 10-24-2024 Chronic Spondylosis; intervertebral disc disorders; other back problems (20 sources) Disorder of lumbar disc; Translations: [Unspecified thoracic, thoracolumbar and lumbosacral intervertebral disc disorder] Onset: 09-16-2009 09-16-2009 Chronic Spondylosis; intervertebral disc disorders; other back problems (20 sources) Bilateral sciatica; Translations: [Sciatica, right side] Onset: 03-31-2017 Resolved: 05-23-2024 05-09-2015 Episodic Sprains and strains (14 sources) Injury of musculoskeletal system; Translations: [Sprain or strain of back] 11-06-2015 Episodic Superficial injury; contusion (14 sources) Contusion, hip and thigh; Translations: [Contusion of right hip, initial encounter] 05-13-2018 Episodic Syncope (10 sources) Near syncope; Translations: [Syncope and collapse] 06-08-2022 Episodic Unclassified (1 source) Patient encounter status 06-12-2024 Unclassified (1 source) Acute cough; Translations: [Acute cough] Onset: 07-05-2024 Past or Other Problems Problem Classification Problem Date Documented Da te Episodic/Chronic Abdominal pain (20 sources) Acute abdominal pain; Translations: [Unspecified abdominal pain] Onset: 5 05-05-2020 Episodic Chronic obstructive pulmonary disease and bronchiectasis (20 sources) Purulent bronchitis; Translations: [Mucopurulent chronic bronchitis] Onset: 3 Resolved: 4 11-07-2019 Chronic Conditions associated with dizziness or vertigo (5 sources)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 Informed consent was obtained. Radiation dose: 25.3 mGy. Fluoroscopy: 52 seconds. The patient was in the supine position. The overlying skin was prepped and draped in usual sterile fashion. Following local anesthetic application, a 22 gauge spinal needle was placed into the right hip joint. 2 cc of Isovue-300 was injected for confirmation. The prescribed medication was injected. The patient tolerated the procedure well. COMPARISON: None FINDINGS: Successful right hip injection. RAD/Inj/Asp Dom Jt Should/Hip/Knee IMPRESSION: Successful right hip injection. The patient tolerated the procedure well. Reading Location: [facility]- CC: Dr. Ilya Monroe MD; ADELAIDA [employer] Measurer: Signed Normal [facility] CNOVon 01-19-2025 CNOV Normal [facility] 25(OH)D3 [facility] 25-hydroxyvitamin D3 [Mass/Vol] 56.7 ng/mL Normal 31.0-80.0 [facility] Comment on above: Order Comment: Speci men Type: BLOOD SPECIMENOrdering Facility: [facility] Address: [address] [place] [address] Result Comment: Clas sification of 25 [place] Vitamin D status:Deficiency/Insufficiency: < or = 30 ng/ml.Sufficiency/Optimal Levels: 31-80 ng/mLToxicity: > 100 ng/mL.Test performed by chemiluminescent immunoassay. Performed By: #### 1 989-3 ####[facility] HOSPITALIA [id number] [place] [address] [place] Bacteria Ur Culton Bacteria identified Cx Nom (U) ORGANISM ID: 1 <10,000 CFU/ml Normal urogenital ravindra Normal [facility] Comment on above: Performed By: #### 6 30-4 ####[facility] LABCLIA [id number] [place] [address] [place] CBC W Auto Differential pane l (Bld)on 01-16-2025 Basophils (Bld) [#/Vol] 0.03 10*3/uL Normal <0.11 [facility] Comment on above: Order Comment: Speci men Type: BLOOD SPECIMENOrdering Facility: [facility] Address: [address] [place] [address] Performed By: #### 5 7021-8 ####[facility] [id number] [address] [place] Basophils/100 WBC (Bld) 1.0 % Normal [facility] Comment on above: Order Comment: Speci men Type: BLOOD SPECIMENOrdering Facility: [facility] Address: [address] [place] [address] Performed By: #### 5 7021-8 ####[facility] CENTERLIA [id number] [place] [address] [place] Differential cell count method Nom (Bld) Auto Normal [facility] Comment on above: Order Comment: Speci men Type: BLOOD SPECIMENOrdering Facility: [facility] Address: [address] [place] [address] Performed By: #### 5 7021-8 ####[facility] [id number] [place] [address] [place] Eosinophils (Bld) [#/Vol] 0.03 10*3/uL Normal <0.46 [facility] Comment on above: Order Comment: Speci men Type: BLOOD SPECIMENOrdering Facility: [facility] Address: [address] [place] [address] Performed By: #### 5 7021-8 ####[facility]ENTERLIA [id number] [place] [address] [place] Eosinophils/100 WBC (Bld) 1.0 % Normal [facility] Comment on above: Order Comment: Speci men Type: BLOOD SPECIMENOrdering Facility: [facility] Address: [address] [place] [address] Performed By: #### 5 7021-8 ####[facility] [id number] [place] [address] [place] Erythrocyte distribution width (RBC) [Ratio] 13.0 % Normal 11.5-15.0 [facility] Comment on above: Order Comment: Speci men Type: BLOOD SPECIMENOrdering Facility: [facility] Address: [address] [place] [address] Performed By: #### 5 7021-8 ####[facility]ENTERLI [id number] [place] [address] [place] Hematocrit (Bld) [Volume fraction] 33.0 % Low 36.0-46.0 [facility] Comment on above: Order Comment: Speci men Type: BLOOD SPECIMENOrdering Facility: [facility] Address: [address] [place] [address] Performed By: #### 5 7021-8 ####[facility]ITALNCLI [id number] [place] [address] [place] Hemoglobin (Bld) [Mass/Vol] 11.9 g/dL Normal 11.5-15.5 [facility] Comment on above: Order Comment: Speci men Type: BLOOD SPECIMENOrdering Facility: [facility] Address: [address] [place] [address] Performed By: #### 5 7021-8 ####[facility] DALILALIA [id number] [place] [address] [place] Immature granulocytes (Bld) [#/Vol] 10*3/uL Normal <0.10 [facility] Comment on above: Order Comment: Speci men Type: BLOOD SPECIMENOrdering Facility: [facility] Address: [address] [place] [address] Performed By: #### 5 7021-8 ####[facility]PITALNCT[facility] [id number] [place] [address] [place] Immature granulocytes/100 WBC (Bld) 0.3 % Normal [facility] Comment on above: Order Comment: Speci men Type: BLOOD SPECIMENOrdering Facility: [facility] Address: [address] [place] [address] Performed By: #### 5 7021-8 ####[facility] [id number] [place] [address] [place] Lymphocytes (Bld) [#/Vol] 1.49 10*3/uL Normal 1.00-4.00 [facility] Comment on above: Order Comment: Speci men Type: BLOOD SPECIMENOrdering Facility: [facility] Address: [address] [place] [address] Performed By: #### 5 7021-8 ####[facility] [id number] [place] [address] [place] Lymphocytes/100 WBC (Bld) 49.3 % Normal [facility] Comment on above: Order Comment: Speci men Type: BLOOD SPECIMENOrdering Facility: [facility] Address: [address] [place] [address] Performed By: #### 5 7021-8 ####[facility]ITALNCLIA [id number] [place] [address] [place] MCH (RBC) [Entitic mass] 36.1 pg High 26.0-34.0 [facility] Comment on above: Order Comment: Speci men Type: BLOOD SPECIMENOrdering Facility: [facility] Address: [address] [place] [address] Performed By: #### 5 7021-8 ####[facility]ENTERLIA [id number] [place] [address] [place] MCHC (RBC) [Mass/Vol] 36.1 g/dL High 30.5-36.0 [facility] Comment on above: Order Comment: Speci men Type: BLOOD SPECIMENOrdering Facility: [facility] Address: [address] [place] [address] Performed By: #### 5 7021-8 ####[facility] [id number] [place] [address] [place] MCV (RBC) [Entitic vol] 100.0 fL Normal 80.0-100.0 [facility] Comment on above: Order Comment: Speci men Type: BLOOD SPECIMENOrdering Facility: [facility] Address: [address] [place] [address] Performed By: #### 5 7021-8 ####[facility] CENTERLIA [id number] [place] [address] [place] Monocytes (Bld) [#/Vol] 0.40 10*3/uL Normal <0.87 [facility] Comment on above: Order Comment: Speci men Type: BLOOD SPECIMENOrdering Facility: [facility] Address: [address] [place] [address] Performed By: #### 5 7021-8 ####[facility] [id number] [place] [address] [place] Monocytes/100 WBC (Bld) 13.2 % Normal [facility] Comment on above: Order Comment: Speci men Type: BLOOD SPECIMENOrdering Facility: [facility] Address: [address] [place] [address] Performed By: #### 5 7021-8 ####[facility] CENTERKathy [id number] [place] [address] [place] Neutrophils (Bld) [#/Vol] 1.06 10*3/uL Low 1.45-7.50 [facility] Comment on above: Order Comment: Speci men Type: BLOOD SPECIMENOrdering Facility: [facility] Address: [address] [place] [address] Performed By: #### 5 7021-8 ####[facility]OSPITALNCJIMENEZ [id number] [place] [address] [place] Neutrophils/100 WBC (Bld) 35.2 % Normal [facility] Comment on above: Order Comment: Speci men Type: BLOOD SPECIMENOrdering Facility: [facility] Address: [address] [place] [address] Performed By: #### 5 7021-8 ####[facility] CENTERJEANNIEKathy [id number] [place] [address] [place] Nucleated RBC (Bld) [#/Vol] 10*3/uL Normal <0.01 [facility] Comment on above: Order Comment: Speci men Type: BLOOD SPECIMENOrdering Facility: [facility] Address: [address] [place] [address] Performed By: #### 5 7021-8 ####[facility]ITALNCLIA [id number] [place] [address] [place] Nucleated RBC/100 WBC (Bld) [Ratio] 0.0 /100 WBC Normal [facility] Comment on above: Order Comment: Speci men Type: BLOOD SPECIMENOrdering Facility: [facility] Address: [address] [place] [address] Performed By: #### 5 7021-8 ####[facility] BRANDINNCJIMENEZ [id number] [place] [address] [place] Platelet mean volume (Bld) [Entitic vol] 8.7 fL Low 9.0-12.7 [facility] Comment on above: Order Comment: Speci men Type: BLOOD SPECIMENOrdering Facility: [facility] Address: [address] [place] [address] Performed By: #### 5 7021-8 ####[facility] HOSPITALNCKathy [id number] [place] [address] [place] Platelets (Bld) [#/Vol] 122 10*3/uL Low 150-400 [facility] Comment on above: Order Comment: Speci men Type: BLOOD SPECIMENOrdering Facility: [facility] Address: [address] [place] [address] Performed By: #### 5 7021-8 ####[facility]ITALNCLIA [id number] [place] [address] [place] RBC (Bld) [#/Vol] 3.30 10*6/uL Low 3.90-5.20 [facility] Comment on above: Order Comment: Speci men Type: BLOOD SPECIMENOrdering Facility: [facility] Address: [address] [place], [place] [address] Performed By: #### 5 7021-8 ####[facility]ITALNCLIA [id number] [place] [address] [place] WBC (Bld) [#/Vol] 3.02 10*3/uL Low 3.70-11.00 [facility] Comment on above: Order Comment: Speci men Type: BLOOD SPECIMENOrdering Facility: [facility] Address: [address] [place], [place] [address] Performed By: #### 5 7021-8 ####[facility] BIENVENIDOSAVANNAHNCLIA [id number] [place] [address] [place] CNOVSPon 01-16-2025 CNOVSP Normal [facility] metabolic 2000 panelon 01-16-2025 Albumin [Mass/Vol] 4.2 g/dL Normal 3.9-4.9 [facility] Comment on above: Order Comment: Speci men Type: BLOOD SPECIMENOrdering Facility: [facility] Address: [address] [place], [place] [address] Performed By: #### 2 4323-8, 77485-1 ####[facility]OSPITALNCJEANNIEA [id number] [place] [address] [place] ALP [Catalytic activity/Vol] 85 U/L Normal 34-123 [facility] Comment on above: Order Comment: Speci men Type: BLOOD SPECIMENOrdering Facility: [facility] Address: [address] [place], [place] [address] Performed By: #### 2 4323-8, 37336-0 ####[facility] HOSPITALNCJEANNIEA [id number] [place] [address] [place] ALT [Catalytic activity/Vol] 22 U/L Normal 7-38 [facility] Comment on above: Order Comment: Speci men Type: BLOOD SPECIMENOrdering Facility: [facility] Address: [address] [place], [place] [address] Performed By: #### 2 4323-8, 40815-6 ####[facility]PITALNCLIA [id number] [place] [address] [place] Anion gap [Moles/Vol] 10 mmol/L Normal 8-15 [facility] Comment on above: Order Comment: Speci men Type: BLOOD SPECIMENOrdering Facility: [facility] Address: [address] [place], [place] [address] Performed By: #### 2 4323-8, ####[facility] VALERIEA [id number] [place] [address] [place] AST [Catalytic activity/Vol] 37 U/L High 13-35 [facility] Comment on above: Order Comment: Speci men Type: BLOOD SPECIMENOrdering Facility: [facility] Address: [facility] [place]razyna [place] [id number] Performed By: #### 2 4323-8, ####[facility] BIENVENIDOSAVANNAHSOHAILLIA [id number] [place] [address] [place] Bilirubin [Mass/Vol] 0.5 mg/dL Normal 0.2-1.3 [facility] Comment on above: Order Comment: Speci men Type: BLOOD SPECIMENOrdering Facility: [facility] Address: [address] [place] [address] Performed By: #### 2 4323-8, ####[facility] BIENVENIDOSAVANNAHJOSÉA [id number] [place] [address] [place] Calcium [Mass/Vol] 9.3 mg/dL Normal 8.5-10.2 [facility] Comment on above: Order Comment: Speci men Type: BLOOD SPECIMENOrdering Facility: [facility] Address: [facility] [place]ATTIGrazyna [place] [address] Performed By: #### 2 4323-8, ####[facility]ITALNCLIA [id number] [place] [address] [place] Chloride [Moles/Vol] 102 mmol/L Normal 98-107 [facility] Comment on above: Order Comment: Speci men Type: BLOOD SPECIMENOrdering Facility: [facility] Address: [facility] [place] [address] Performed By: #### 2 4323-8, ####[facility]ITALNCLIA [id number] [place] [address] [place] CO2 [Moles/Vol] 26 mmol/L Normal 22-30 [facility] Comment on above: Order Comment: Speci men Type: BLOOD SPECIMENOrdering Facility: [facility] Address: [address] [place] [address] Performed By: #### 2 4323-8, ####[facility] [id number] [place] [address] [place] Creatinine [Mass/Vol] 0.83 mg/dL Normal 0.58-0.96 [facility] Comment on above: Order Comment: Speci men Type: BLOOD SPECIMENOrdering Facility: [facility] Address: [address] [place] [address] Performed By: #### 2 4323-8, ####[facility]ENTERA [id number] [place] [address] [place] eGFRcr SerPlBld CKD-EPI 2020 77 mL/min/1.73m??? Normal >=60 [facility] Comment on above: Order Comment: Speci men Type: BLOOD SPECIMENOrdering Facility: [facility] Address: [address] [place] [address] Result Comment: Emili mated Glomerular Filtration Rate (eGFR) is calculated using the 2020 CKD-EPI creatinine equation. This equation utilizes serum creatinine, sex, and age as parameters. The creatinine assay has traceable calibration to isotope dilution-mass spectrometry. Refer to KDIGO guidelines for clinical interpretation. In patients with unstable renal function, e.g. those with acute kidney injury, the eGFR may not accurately reflect actual GFR. Performed By: #### 2 4323-8, ####[facility]ITALNCLIA [id number] [place] [address] [place] Glucose [Mass/Vol] 115 mg/dL High 74-99 [facility] Comment on above: Order Comment: Lukasz hargrove Type: BLOOD SPECIMENOrdering Facility: [facility] Address: [address] [place], [place] [address] Result Comment: The [place] Diabetes Association (ADA) provides guidance for cutoff values for fasting glucose and random glucose. The ADA defines fasting as no caloric intake for at least 8 hours. Fasting plasma glucose results between 100 to 125 mg/dL indicate increased risk for diabetes (prediabetes).Fasting plasma glucose results greater than or equal to 126 mg/dL meet the criteria for diagnosis of diabetes. In the absence of unequivocal hyperglycemia, results should be confirmed by repeat testing. In a patient with classic symptoms of hyperglycemia or hyperglycemic crisis, random plasma glucose results greater than or equal to 200 mg/dL meet the criteria for diagnosis of diabetes.Reference: Standards of Medical Care in Diabetes 2016, [place] Diabetes Association. Diabetes Care. 2016.39(Suppl 1). Performed By: #### 2 4323-8, ####[facility] MILLJOSE DAVIDWSOHAILLIKathy [id number] [place] [address] [place] Potassium [Moles/Vol] 3.5 mmol/L Low 3.7-5.1 [facility] Comment on above: Order Comment: Lukasz hargrove Type: BLOOD SPECIMENOrdering Facility: [facility] Address: [address] [place], [place] [address] Performed By: #### 2 4323-8, ####[facility] MILLJOSE DAVIDWJESUS [id number] [place] [address] [place] Protein [Mass/Vol] 7.3 g/dL Normal 6.3-8.0 [facility] Comment on above: Order Comment: Lukasz hargrove Type: BLOOD SPECIMENOrdering Facility: [facility] Address: [address] [place] [address] Performed By: #### 2 4323-8, ####[facility] MILLTOWSOHAILLIKathy [id number] [place] [address] [place] Sodium [Moles/Vol] 138 mmol/L Normal 136-144 [facility] Comment on above: Order Comment: Speci men Type: BLOOD SPECIMENOrdering Facility: [facility] Address: [address] [place] [address] Performed By: #### 2 4323-8, 86581-1 ####[facility] CENTERLI [id number] [place] [address] [place] Urea nitrogen [Mass/Vol] 10 mg/dL Normal 7-21 [facility] Comment on above: Order Comment: Speci men Type: BLOOD SPECIMENOrdering Facility: [facility] Address: [address] [place] [address] Performed By: #### 2 4323-8, 78450-4 ####[facility] [id number] [place] [address] [place] LIPID PANEL, NONFASTINGon Cholesterol [Mass/Vol] 128 mg/dL Normal <200 [facility] Comment on above: Order Comment: Speci men Type: BLOOD SPECIMENOrdering Facility: [facility] Address: [address] [place] [address] Result Comment: <200 mg/dL, Desirable 200-239 mg/dL, Borderline high>239 mg/dL, High Performed By: #### L IPNF ####[facility] LABCLIA [id number] [place] [address] [place] HDL CHOLESTEROL, NF 51 mg/dL Normal >39 [facility] Comment on above: Order Comment: Speci men Type: BLOOD SPECIMENOrdering Facility: [facility] Address: [address] [place] [address] Result Comment: 40-5 9 mg/dL, Acceptable>59 mg/dL, High: Negative risk factor for coronary heart disease<40 mg/dL, Low: Positive risk factor for coronary heart disease Performed By: #### L IPNF ####[facility] LABCLIA [id number] [address] OF [facility] LDL CHOLESTEROL CALCULATED, NF 65 mg/dL Normal <100 [facility] Comment on above: Order Comment: Lukasz hargrove Type: BLOOD SPECIMENOrdering Facility: [facility] Address: [address] [place] [address] Result Comment: <100 mg/dL, Optimal 100-129 mg/dL, Near optimal/above optimal 130-159 mg/dL, Borderline high 160-189 mg/dL, High>189 mg/dL, Very highSecondary prevention optimal LDL Cholesterol levels are recommended to be <70 mg/dLLDL cholesterol is calculated using the Sellers-NIH equation. Performed By: #### L IPNF ####[facility] LABIA [id number] [address] LDL/HDL RATIO, NF 1.27 mg/dL Normal <2.54 [facility] Comment on above: Order Comment: Lukasz hargrove Type: BLOOD SPECIMENOrdering Facility: [facility] Address: [address] [place] [address] Result Comment: Luda nevarez:1. National Cholesterol Education Program ATP III Guideline At-A-Glance Quick Desk Reference: National Heart, Lung, and Blood [place]. National Institutes of Health. 2001: NIH Publication No. 01-3305.2. An International Atherosclerosis Society position paper: global recommendations for the management of dyslipidemia: executive summary, Atherosclerosis. 2014: 232(2):410-413. Performed By: #### L IPNF ####[facility] LABIA [id number] [address] STATES OF [facility] NON HDL CHOL, NF 77 mg/dL Normal <130 [facility] Comment on above: Order Comment: Lukasz beena Type: BLOOD SPECIMENOrdering Facility: [facility] Address: [address] [place] [address] Result Comment: <130 mg/dL, Optimal 130-159 mg/dL, Near optimal/above optimal 160-189 mg/dL, Borderline high 190-219 mg/dL, High>219 mg/dL, Very highSecondary prevention optimal non HDL Cholesterol levels are recommended to be <100 mg/dL Performed By: #### L IPNF ####[facility] LABCLIA [id number] [place] [address] [place] T CHOL/HDL RATIO NF 2.51 mg/dL Normal <5.10 [facility] Comment on above: Order Comment: Speci men Type: BLOOD SPECIMENOrdering Facility: [facility] Address: [address] [place] [address] Performed By: #### L IPNF ####[facility] LABIA [id number] [place] [address] [place] TRIGLYCERIDES, NF 55 mg/dL Normal <150 [facility] Comment on above: Order Comment: Speci men Type: BLOOD SPECIMENOrdering Facility: [facility] Address: [address] [place] [address] Result Comment: <150 mg/dL, Normal 150-199 mg/dL, Borderline high 200-499 mg/dL, High>499 mg/dL, Very high Performed By: #### L IPNF ####[facility] LABIA [id number] [place] [address] [place] VLDL CHOLESTEROL, NF 8 mg/dL Normal <30 [facility] Comment on above: Order Comment: Speci men Type: BLOOD SPECIMENOrdering Facility: [facility] Address: [address] [place] [address] Performed By: #### L IPNF ####[facility] LABIA [id number] [place] [id number] [place] [facility]esium [facility] Magnesium [Mass/Vol] 1.9 mg/dL Normal 1.7-2.3 [facility] Comment on above: Order Comment: Speci men Type: BLOOD SPECIMENOrdering Facility: [facility] Address: [address] [place] [address] Performed By: #### 2 4323-8, 92749-3 ####[facility] ELFEGOMARCUS KEENEWNCLIA [id number] [place] [address] [place] Urinalysis complete panel (U )on 01-16-2025 Bacteria LM.HPF (Urine sed) [#/Area] Negative Normal Negative [facility] Comment on above: Order Comment: Speci men Type: URINE SPECIMENOrdering Facility: [facility] Address: [address] [place] [address] Performed By: #### 2 4356-8 ####[facility] LABCLIA [id number] [place] [address] [place] Bilirubin Ql (U) Negative Normal Negative [facility] Comment on above: Order Comment: Speci men Type: URINE SPECIMENOrdering Facility: [facility] Address: [address] [place] [address] Performed By: #### 2 4356-8 ####[facility] LABCLIA [id number] [place] [address] [place] Clarity (Unsp spec) Clear Normal Clear [facility] Comment on above: Order Comment: Speci men Type: URINE SPECIMENOrdering Facility: [facility] Address: [address] [place] [address] Performed By: #### 2 4356-8 ####[facility] LABCLIA [id number] [place] [address] [place] Color (U) Yellow Normal Yellow [facility] Comment on above: Order Comment: Speci men Type: URINE SPECIMENOrdering Facility: [facility] Address: [address] [place] [address] Performed By: #### 2 4356-8 ####[facility] LABCLIA [id number] [place] [id number] [place] Epithelial cells LM.HPF (Urine sed) [#/Area] None Seen Normal [facility] Comment on above: Order Comment: Speci men Type: URINE SPECIMENOrdering Facility: [facility] Address: [address] [place] [address] Performed By: #### 2 4356-8 ####[facility] LABCLIA [id number] [address] [place] [address] [place] Glucose Test strip (U) [Mass/Vol] Negative Normal Negative [facility] Comment on above: Order Comment: Speci men Type: URINE SPECIMENOrdering Facility: [facility] Address: [address] [place] [address] Performed By: #### 2 4356-8 ####[facility] LABCLIA [id number] [address], [facility] [place] Hemoglobin Ql (U) Negative Normal Negative [facility] Comment on above: Order Comment: Speci men Type: URINE SPECIMENOrdering Facility: [facility] Address: [address] [place] [address] Performed By: #### 2 4356-8 ####[facility] LABCLIA [id number] [address], [facility] [place] Hyaline casts (Urine sed) [#/Area] 0 /[LPF] Normal 0 /LPF [facility] Comment on above: Order Comment: Speci men Type: URINE SPECIMENOrdering Facility: [facility] Address: [address] [place] [address] Performed By: #### 2 4356-8 ####[facility] LABCLIA [id number] [facility] [address] [place] [address] [place] Ketones Ql (U) Negative Normal Negative [facility] Comment on above: Order Comment: Speci men Type: URINE SPECIMENOrdering Facility: [facility] Address: [address] [place] [address] Performed By: #### 2 4356-8 ####[facility] LABCLIA [id number] [address] [place] [address] [place] Leukocyte esterase Test strip Ql (U) Negative Normal Negative [facility] Comment on above: Order Comment: Speci men Type: URINE SPECIMENOrdering Facility: [facility] Address: [address] [place] [address] Performed By: #### 2 4356-8 ####[facility] LABCLIA [id number] [place] [address] [place] Nitrite Ql (U) Negative Normal Negative [facility] Comment on above: Order Comment: Speci men Type: URINE SPECIMENOrdering Facility: [facility] Address: [address] [place] [address] Performed By: #### 2 4356-8 ####[facility] LABCLIA [id number] [place] [address] [place] pH (U) 7.5 [pH] Normal 5.0-8.0 [facility] Comment on above: Order Comment: Speci men Type: URINE SPECIMENOrdering Facility: [facility] Address: [address] [place] [address] Performed By: #### 2 4356-8 ####[facility] LABIA [id number] [place] [address] [place] Protein (U) [Mass/Vol] Negative Normal Negative [facility] Comment on above: Order Comment: Speci men Type: URINE SPECIMENOrdering Facility: [facility] Address: [address] [place] [address] Performed By: #### 2 4356-8 ####[facility] LABCLIA [id number] [place] [id number] [place] RBC LM.HPF (Urine sed) [#/Area] 0-2 /HPF Normal 0-2 /HPF [facility] Comment on above: Order Comment: Speci men Type: URINE SPECIMENOrdering Facility: [facility] Address: [address] [place] [address] Performed By: #### 2 4356-8 ####[facility] LABIA [id number] [place] [address] [place] Specific gravity (U) [Rel density] 1.018 Normal 1.005-1.030 [facility] Comment on above: Order Comment: Speci men Type: URINE SPECIMENOrdering Facility: [facility] Address: [address] [place] [address] Performed By: #### 2 4356-8 ####[facility] LABIA [id number] [place] [id number] [place] Urobilinogen Ql (U) 1.0 EU/dL Normal 0.2-1.0 EU/dL [facility] Comment on above: Order Comment: Speci men Type: URINE SPECIMENOrdering Facility: [facility] Address: [address] [place] [address] Performed By: #### 2 4356-8 ####[facility]ITAL[facility] [id number] [place] [address] [place] WBC LM.HPF (Urine sed) [#/Area] 0-5 /HPF Normal 0-5 /HPF [facility] Comment on above: Order Comment: Speci men Type: URINE SPECIMENOrdering Facility: [facility] Address: [address] [place] [address] Performed By: #### 2 4356-8 ####[facility] [id number] [place] [address] [place] CNOVon 01-14-2025 CNOV Normal [facility] XR HIP 3V PELV+ AP/LAT RTon 01-14-2025 XR HIP 3V PELV+ AP/LAT RT Normal [facility] CNOVon 12-28-2024 CNOV Normal [facility] Cardiology Visit Reporton Cardiology Visit Report [facility] [address] [place], [place] [id number] OFFICE VISIT Date of Service: 12/04/24 MR#: [id number] Acct: [id number] Name: DARLING FLOREZ Rep #: [id number] : 1955 Provider: Dr. Cayetano Heck MD Age/Sex: 69/F Location: [facility] Status: Signed HPI HPI History of Present Illness Details: DARLING LFOREZ, is a 69 F who presents to the office today for a cardiovascular follow up. She has a history of hypertension, fibromyalgia, former smoker who quit in 1993, asthma, depression, and gallbladder disease. She was evaluated at [facility] in October 2015 after noting chest pain and PCP EKG showing subtle ST and T wave changes. Her workup at that time was negative for cardiac etiology. She was hospitalized in 04/2021 COVID pneumonia. Patient was diagnosed with breast cancer in February of 2023. She continues to follow-up with the oncologist. Her last echocardiogram demonstrated an ejection fraction of 65%. From a cardiac standpoint, the patient is doing well. She denies any palpitations, chest pain, pressure or heaviness. She does have occasional SOB with exertion-she attributes this to a side effect of her chemotherapy. She states this is nothing new or worsening. She denies Orthopnea, and PND. She does not have bleeding issues; no blood in urine, stool or nosebleeds. She does acknowledge intermittent fatigue. Again, she attributes this to her chemotherapy. She denies myalgias, or claudication. She does not have edema, or sudden weight gain. She does have occasional lightheadedness in the morning after taking her medication. She denies dizziness, syncopal or near syncopal episodes, and headaches. Intake Vital Signs 11/23/23 14:52 10/09/24 11:18 12/04/24 14:41 Height 5 ft 11 in 5 ft 10 in 5 ft 10 in Weight: 226 lb BMI 32.4 BP 119/71 Blood Pressure Location Lt brachial Position Sitting Respiration 16 Pulse 67 Pulse Source Monitor Intake Visit Reasons: 1 Y FU [employer] Required: No Accompanied by: Significant Other Is patient in pain?: No Allergies apple Allergy (Verified 12/04/24 14:45) Hives banana Allergy (Verified 12/04/24 14:45) Hives carrot Allergy (Verified 12/04/24 14:45) Hives pineapple Allergy (Verified 12/04/24 14:45) Itching shellfish derived (lobster) Allergy (Verified 12/04/24 14:45) Anaphylaxis shrimp Allergy (Verified 12/04/24 14:45) Anaphylaxis amoxicillin Adverse Reaction (Verified 12/04/24 14:45) YEAST INFECTION Medications ???Medication ???Instructions ???Recorded ???Confirmed ???Type citalopram 40 mg tablet (Celexa) 40 mg PO DAILY mental health 11/0712/04/24 History gabapentin 600 mg tablet 600 mg PO QHS PRN nerve pain 11/0712/04/24 History gabapentin 100 mg capsule 100 mg PO DAILY nerve pain 9 12/04/24 History albuterol sulfate 2.5 mg/3 mL 2.5 mg (3 mL) inhalation Q4H PRN 1 12/04/24 Rx (0.083 %) solution for nebulization Sob /Or Wheezing #180 mL fluticasone propionate 50 1 spray intranasal BID PRN 1 12/04/24 History mcg/actuation nasal Congestion spray,suspension cholecalciferol (vitamin D3) 125 125 mcg PO DAILY vitamin 06/02/21 12/04/24 History mcg (5,000 unit) capsule dicyclomine 20 mg tablet 20 mg PO TID PRN abdominal 3 12/04/24 Rx cramping #20 tabs anastrozole 1 mg tablet 1 mg PO DAILY cancer 04/28/2311/10 History albuterol sulfate 90 mcg/actuation 2 puff inhalation Q4H PRN 12/04/24 Rx aerosol inhaler (Ventolin HFA) shortness of breath or wheezing #1 device azelastine 137 mcg (0.1 %) nasal 2 spray intranasal BID PRN nasal 0 11/23/23 12/04/24 History spray congestion multivitamin (Daily Multi-Vitamin 1 tab PO DAILY 11/23/23 12/04/24 History tablet) palbociclib 125 mg capsule 125 mg PO DAILY 11/23/23 12/04/24 History (Ibrance) isosorbide mononitrate 60 mg 60 mg PO DAILY #90 tabs 08/02/24 0 12/04/24 Rx tablet,extended release 24 hr budesonide-formoterol HFA 160 2 puff inhalation BID PRN asthma 0 08/09/24 12/04/24 History mcg-4.5 mcg/actuation aerosol inhaler (Symbicort) montelukast 10 mg tablet 10 mg PO DAILY allergies #90 tabs 08/09/24 12/04/24 Rx (Singulair) pantoprazole 40 mg tablet,delayed 40 mg PO BID reflux 08/09/2411/10 History release elderberry fruit 200 mg capsule 200 mg PO DAILY 09/09/24 12/04/24 History amlodipine 2.5 mg tablet (Norvasc) 2.5 mg PO DAILY #90 tabs 5 12/04/24 Rx atorvastatin 40 mg tablet 40 mg PO QHS #90 tabs 12/04/24 Rx hydrochlorothiazide 12.5 mg capsule 12.5 mg PO DAILY diuretic #90 c aps 12/04/24 12/04/24 Rx losartan 25 mg tablet 25 mg PO DAILY blood pressure #90 12/04/24 12/04/24 Rx tabs Have you fallen in the past ye (more content not included)... Normal [facility] CBC W Auto Differential pane l (Bld)on 10-24-2024 Basophils (Bld) [#/Vol] 10*3/uL Normal <0.11 [facility] Comment on above: Order Comment: Speci men Type: BLOOD SPECIMENOrdering Facility: [facility] Address: [address] [place] [address] Performed By: #### 5 7021-8 ####[facility] [id number] [place] [address] [place] Basophils/100 WBC (Bld) 0.8 % Normal [facility] Comment on above: Order Comment: Speci men Type: BLOOD SPECIMENOrdering Facility: [facility] Address: [address] [place] [address] Performed By: #### 5 7021-8 ####[facility] [id number] [place] [address] [place] Differential cell count method Nom (Bld) Auto Normal [facility] Comment on above: Order Comment: Speci men Type: BLOOD SPECIMENOrdering Facility: [facility] Address: [address] [place] [address] Performed By: #### 5 7021-8 ####[facility]ITALNCA [id number] [place] [address] [place] Eosinophils (Bld) [#/Vol] 10*3/uL Normal <0.46 [facility] Comment on above: Order Comment: Speci men Type: BLOOD SPECIMENOrdering Facility: [facility] Address: [address] [place] [address] Performed By: #### 5 7021-8 ####[facility] [id number] [place] [address] [place] Eosinophils/100 WBC (Bld) 0.4 % Normal [facility] Comment on above: Order Comment: Speci men Type: BLOOD SPECIMENOrdering Facility: [facility] Address: [address] [place] [address] Performed By: #### 5 7021-8 ####[facility] [id number] [place] [address] [place] Erythrocyte distribution width (RBC) [Ratio] 12.8 % Normal 11.5-15.0 [facility] Comment on above: Order Comment: Speci men Type: BLOOD SPECIMENOrdering Facility: [facility] Address: [address] [place] [address] Performed By: #### 5 7021-8 ####[facility] [id number] [place] [address] [place] Hematocrit (Bld) [Volume fraction] 32.8 % Low 36.0-46.0 [facility] Comment on above: Order Comment: Speci men Type: BLOOD SPECIMENOrdering Facility: [facility] Address: [address] [place], [place] [address] Performed By: #### 5 7021-8 ####[facility] BIENVENIDOSAVANNAHJESUS [id number] [place] [address] [place] Hemoglobin (Bld) [Mass/Vol] 11.9 g/dL Normal 11.5-15.5 [facility] Comment on above: Order Comment: Speci men Type: BLOOD SPECIMENOrdering Facility: [facility] Address: [address] [place] [address] Performed By: #### 5 7021-8 ####[facility]ITALNCKathy [id number] [place] [address] [place] Immature granulocytes (Bld) [#/Vol] 10*3/uL Normal <0.10 [facility] Comment on above: Order Comment: Speci men Type: BLOOD SPECIMENOrdering Facility: [facility] Address: [address] [place] [address] Performed By: #### 5 7021-8 ####[facility]ITALNCLIA [id number] [place] [address] [place] Immature granulocytes/100 WBC (Bld) 0.4 % Normal [facility] Comment on above: Order Comment: Speci men Type: BLOOD SPECIMENOrdering Facility: [facility] Address: [address] [place] [address] Performed By: #### 5 7021-8 ####[facility]ITALNCLIA [id number] [place] [address] [place] Lymphocytes (Bld) [#/Vol] 1.48 10*3/uL Normal 1.00-4.00 [facility] Comment on above: Order Comment: Speci men Type: BLOOD SPECIMENOrdering Facility: [facility] Address: [address] [place] [address] Performed By: #### 5 7021-8 ####[facility]ITALJESUS [id number] [place] [address] [place] Lymphocytes/100 WBC (Bld) 57.1 % Normal [facility] Comment on above: Order Comment: Speci men Type: BLOOD SPECIMENOrdering Facility: [facility] Address: [address] [place] [address] Performed By: #### 5 7021-8 ####[facility] [id number] [place] [address] [place] MCH (RBC) [Entitic mass] 37.7 pg High 26.0-34.0 [facility] Comment on above: Order Comment: Speci men Type: BLOOD SPECIMENOrdering Facility: [facility] Address: [address] [place] [address] Performed By: #### 5 7021-8 ####[facility] [id number] [place] [address] [place] MCHC (RBC) [Mass/Vol] 36.3 g/dL High 30.5-36.0 [facility] Comment on above: Order Comment: Speci men Type: BLOOD SPECIMENOrdering Facility: [facility] Address: [address] [place] [address] Performed By: #### 5 7021-8 ####[facility] [id number] [place] [address] [place] MCV (RBC) [Entitic vol] 103.8 fL High 80.0-100.0 [facility] Comment on above: Order Comment: Speci men Type: BLOOD SPECIMENOrdering Facility: [facility] Address: [address] [place] [address] Performed By: #### 5 7021-8 ####[facility]ITALNCT[facility] [id number] [place] [address] [place] Monocytes (Bld) [#/Vol] 0.31 10*3/uL Normal <0.87 [facility] Comment on above: Order Comment: Speci men Type: BLOOD SPECIMENOrdering Facility: [facility] Address: [address] [place] [address] Performed By: #### 5 7021-8 ####[facility] [id number] [place] [address] [place] Monocytes/100 WBC (Bld) 12.0 % Normal [facility] Comment on above: Order Comment: Speci men Type: BLOOD SPECIMENOrdering Facility: [facility] Address: [address] [place] [address] Performed By: #### 5 7021-8 ####[facility] [id number] [place] [address] [place] Neutrophils (Bld) [#/Vol] 0.76 10*3/uL Low 1.45-7.50 [facility] Comment on above: Order Comment: Speci men Type: BLOOD SPECIMENOrdering Facility: [facility] Address: [address] [place] [address] Performed By: #### 5 7021-8 ####[facility] [id number] [place] [address] [place] Neutrophils/100 WBC (Bld) 29.3 % Normal [facility] Comment on above: Order Comment: Speci men Type: BLOOD SPECIMENOrdering Facility: [facility] Address: [address] [place] [address] Performed By: #### 5 7021-8 ####[facility] [id number] [place] [address] [place] Nucleated RBC (Bld) [#/Vol] 10*3/uL Normal <0.01 [facility] Comment on above: Order Comment: Speci men Type: BLOOD SPECIMENOrdering Facility: [facility] Address: [address] [place] [address] Performed By: #### 5 7021-8 ####[facility] JUAN LUIS [id number] [place] [address] [place] Nucleated RBC/100 WBC (Bld) [Ratio] 0.0 /100 WBC Normal [facility] Comment on above: Order Comment: Speci men Type: BLOOD SPECIMENOrdering Facility: [facility] Address: [address] [place] [address] Performed By: #### 5 7021-8 ####[facility] BIENVENIDOSAVANNAHJESUS [id number] [place] [address] [place] Platelet mean volume (Bld) [Entitic vol] 9.3 fL Normal 9.0-12.7 [facility] Comment on above: Order Comment: Speci men Type: BLOOD SPECIMENOrdering Facility: [facility] Address: [address] [place] [address] Performed By: #### 5 7021-8 ####[facility]ITALNCLIA [id number] [place] [address] [place] Platelets (Bld) [#/Vol] 111 10*3/uL Low 150-400 [facility] Comment on above: Order Comment: Speci men Type: BLOOD SPECIMENOrdering Facility: [facility] Address: [address] [place] [address] Performed By: #### 5 7021-8 ####[facility]ITALSOHAILLIA [id number] [place] [address] [place] RBC (Bld) [#/Vol] 3.16 10*6/uL Low 3.90-5.20 [facility] Comment on above: Order Comment: Speci men Type: BLOOD SPECIMENOrdering Facility: [facility] Address: [address] [place] [address] Performed By: #### 5 7021-8 ####[facility] MILLTOWNCLIA [id number] [place] [address] [place] WBC (Bld) [#/Vol] 2.59 10*3/uL Low 3.70-11.00 [facility] Comment on above: Order Comment: Speci men Type: BLOOD SPECIMENOrdering Facility: [facility] Address: [address] [place] [address] Performed By: #### 5 7021-8 ####[facility] MILLTOWNCLIA [id number] [place] [address] [place] CNOVSPon 10-24-2024 CNOVSP Normal [facility] metabolic 2000 panelon 10-24-2024 Albumin [Mass/Vol] 4.3 g/dL Normal 3.9-4.9 [facility] Comment on above: Order Comment: Speci men Type: BLOOD SPECIMENOrdering Facility: [facility] Address: [address] [place] [address] Performed By: #### 2 4323-8 ####[facility] MILLWNCLIA [id number] [place] [address] [place] ALP [Catalytic activity/Vol] 56 U/L Normal 34-123 [facility] Comment on above: Order Comment: Speci men Type: BLOOD SPECIMENOrdering Facility: [facility] Address: [address] [place] [address] Performed By: #### 2 4323-8 ####[facility] MILLTOWNCLIA [id number] [place] [address] [place] ALT [Catalytic activity/Vol] 24 U/L Normal 7-38 [facility] Comment on above: Order Comment: Speci men Type: BLOOD SPECIMENOrdering Facility: [facility] Address: [address] [place] [address] Performed By: #### 2 4323-8 ####[facility] MILLTOWNCLIA [id number] [place] [address] [place] Anion gap [Moles/Vol] 13 mmol/L Normal 8-15 [facility] Comment on above: Order Comment: Speci men Type: BLOOD SPECIMENOrdering Facility: [facility] Address: [address] [place] [address] Performed By: #### 2 4323-8 ####[facility] MILLTOWNCLIA [id number] [place] [address] [place] AST [Catalytic activity/Vol] 26 U/L Normal 13-35 [facility] Comment on above: Order Comment: Speci men Type: BLOOD SPECIMENOrdering Facility: [facility] Address: [address] [place] [address] Performed By: #### 2 4323-8 ####[facility]ITALNCLIA [id number] [place] [address] [place] Bilirubin [Mass/Vol] 0.6 mg/dL Normal 0.2-1.3 [facility] Comment on above: Order Comment: Speci men Type: BLOOD SPECIMENOrdering Facility: [facility] Address: [address] [place] [address] Performed By: #### 2 4323-8 ####[facility] MILLWNCLIA [id number] [place] [address] [place] Calcium [Mass/Vol] 9.3 mg/dL Normal 8.5-10.2 [facility] Comment on above: Order Comment: Speci men Type: BLOOD SPECIMENOrdering Facility: [facility] Address: [address] [place] [address] Performed By: #### 2 4323-8 ####[facility] MILLTOWNCLIA [id number] [place] [address] [place] Chloride [Moles/Vol] 103 mmol/L Normal 98-107 [facility] Comment on above: Order Comment: Speci men Type: BLOOD SPECIMENOrdering Facility: [facility] Address: [address] [place] [address] Performed By: #### 2 4323-8 ####[facility] JASSIWNCLIA [id number] [place] [address] [place] CO2 [Moles/Vol] 23 mmol/L Normal 22-30 [facility] Comment on above: Order Comment: Speci men Type: BLOOD SPECIMENOrdering Facility: [facility] Address: [address] [place] [address] Performed By: #### 2 4323-8 ####[facility] [id number] [place] [address] [place] Creatinine [Mass/Vol] 0.85 mg/dL Normal 0.58-0.96 [facility] Comment on above: Order Comment: Speci men Type: BLOOD SPECIMENOrdering Facility: [facility] Address: [address] [place] [address] Performed By: #### 2 4323-8 ####[facility] [id number] [place] [address] [place] eGFRcr SerPlBld CKD-EPI 2020 75 mL/min/1.73m??? Normal >=60 [facility] Comment on above: Order Comment: Speci men Type: BLOOD SPECIMENOrdering Facility: [facility] Address: [address] [place] [address] Result Comment: Emili mated Glomerular Filtration Rate (eGFR) is calculated using the 2020 CKD-EPI creatinine equation. This equation utilizes serum creatinine, sex, and age as parameters. The creatinine assay has traceable calibration to isotope dilution-mass spectrometry. Refer to KDIGO guidelines for clinical interpretation. In patients with unstable renal function, e.g. those with acute kidney injury, the eGFR may not accurately reflect actual GFR. Performed By: #### 2 4323-8 ####[facility]WNCLIA [id number] [place] [address] [place] Glucose [Mass/Vol] 150 mg/dL High 74-99 [facility] Comment on above: Order Comment: Speci men Type: BLOOD SPECIMENOrdering Facility: [facility] Address: [address] [place] [address] Result Comment: The [place] Diabetes Association (ADA) provides guidance for cutoff values for fasting glucose and random glucose. The ADA defines fasting as no caloric intake for at least 8 hours. Fasting plasma glucose results between 100 to 125 mg/dL indicate increased risk for diabetes (prediabetes).Fasting plasma glucose results greater than or equal to 126 mg/dL meet the criteria for diagnosis of diabetes. In the absence of unequivocal hyperglycemia, results should be confirmed by repeat testing. In a patient with classic symptoms of hyperglycemia or hyperglycemic crisis, random plasma glucose results greater than or equal to 200 mg/dL meet the criteria for diagnosis of diabetes.Reference: Standards of Medical Care in Diabetes 2016, [place] [employer] Association. Diabetes Care. 2016.39(Suppl 1). Performed By: #### 2 4323-8 ####[facility]ITAL[facility]CLIA [id number] [place] [address] [place] Potassium [Moles/Vol] 3.6 mmol/L Low 3.7-5.1 [facility] Comment on above: Order Comment: Speci men Type: BLOOD SPECIMENOrdering Facility: [facility] Address: [address] [place] [address] Performed By: #### 2 4323-8 ####[facility]ITALWNCLIA [id number] [place] [address] [place] Protein [Mass/Vol] 7.0 g/dL Normal 6.3-8.0 [facility] Comment on above: Order Comment: Speci men Type: BLOOD SPECIMENOrdering Facility: [facility] Address: [address] [place], [place] [address] Performed By: #### 2 4323-8 ####[facility]ITAL[facility]CLIA [id number] [place] [address] [place] Sodium [Moles/Vol] 139 mmol/L Normal 136-144 [facility] Comment on above: Order Comment: Speci men Type: BLOOD SPECIMENOrdering Facility: [facility] Address: [address] [place] [address] Performed By: #### 2 4323-8 ####[facility] [id number] [place] [address] [place] Urea nitrogen [Mass/Vol] 11 mg/dL Normal 7-21 [facility] Comment on above: Order Comment: Speci men Type: BLOOD SPECIMENOrdering Facility: [facility] Address: [address] [place] [address] Performed By: #### 2 4323-8 ####[facility]ITALNCLI [id number] [place] [address] [place] CNOVon 10-15-2024 CNOV Normal [facility] STREP A MOLECULAR (POC)on Procedural Control Valid [facility] Strep A (POCT) Negative Negative [facility] 12 Lead EKGon 10-09-2024 12 Lead EKG [facility] [address] [place] [address] 12 Lead EKG 10/09/24 1127 MR#: [id number] Acct: [id number] Name: GAUTAMDARLING Rep #: [id number] : 1955 69 From: Cayetano Heck MD Attending Dr: Status: DEP ER Ordering Dr: Addison Mckinney MD Date: 10/09/24 Location: ED Sex: F AA Admitted: Test Reason : SOB Blood Pressure : */* mmHG Vent. Rate : 62 BPM Atrial Rate : 62 BPM P-R Int : 188 ms QRS Dur : 82 ms QT Int : 416 ms P-R-T Axes : 70 90 85 degrees QTcB Int : 422 ms Normal sinus rhythm Rightward axis T wave abnormality, consider anterior ischemia Abnormal ECG Confirmed by CAYETANO HECK MD ([id number]), news video editor BIRDIE LERMA ([id number]) on 10/10/2024 1:44:35 PM Referred By: Confirmed By: CAYETANO HECK MD 10/10/24 1344 Date Cayetano Heck MD CC: Dr. Addison Mckinney MD; Dr. Ilya Monroe MD Signed Normal [facility] Abdomen/Pelvis W IV Cont ONL Yon 10-09-2024 Abdomen/Pelvis W IV Cont ONLY [facility] [address] [place], [place] [address] Abdomen/Pelvis W IV Cont ONLY MR#: [id number] Acct: [id number] Name: DARLING FLOREZ Rep #: [id number] : 1955 F 69 From: Leonard Preston MD PCP: Dr. Ilya Monroe MD Status: REG ER Study: Abdomen/Pelvis W IV Cont ONLY Date of Exam: Exam# [id number] Ordering Dr: Addison Mckinney MD PROCEDURE: ABDOMEN/PELVIS W IV CONT ONLY 10/09/2024 REASON FOR EXAM: RIGHT SIDE ABDOMINAL PAIN. PRIOR APPENDECTOMY TECHNIQUE: ABDOMEN/PELVIS W IV CONT ONLY Coronal and Sagittal reconstruction series were provided. CONTRAST: 96 cc Isovue-300 One or more dose reduction techniques were used (e.g., Automated exposure control, adjustment of the mA and/or kV according to patient size, use of iterative reconstruction technique. RADIATION DOSE SUMMARY: DLP: 1191.41 mGycm COMPARISON: May 10, 2022 FINDINGS: Lung bases: There is minimal atelectasis or scar at the right and left lung base. Liver: Unremarkable Gallbladder: Unremarkable Spleen: Unremarkable Pancreas: Unremarkable Adrenals: Unremarkable Kidneys: Unremarkable Bladder: Not distended Reproductive Organs: Unremarkable Bowel: There is a moderate stool load. Small bowel loops are nondistended. Appendix: Surgically absent Lymph nodes: There is no pathologic adenopathy by size criteria. Vasculature: Atherosclerotic calcifications are noted. Peritoneum / Retroperitoneum: There is no free air or free fluid. Bones: There is irregular blastic disease in the right medial acetabulum, right and left pubic symphysis, and scattered blastic foci in the lower thoracic and lumbar spine with a 0.6 cm focus in the posterior T9 vertebral body, 0.8 cm focus in posterior L1 vertebral body, suspicious for blastic metastatic disease. There is a lytic lesion in the left iliac measuring 1.9 x 1.3 cm, axial image 93/139. CT/Abdomen/Pelvis W IV Cont ONLY IMPRESSION: There is irregular blastic disease in the right medial acetabulum, right and left pubic symphysis, and scattered blastic foci in the lower thoracic and lumbar spine with a 0.6 cm focus in the posterior T9 vertebral body, 0.8 cm focus in posterior L1 vertebral body, suspicious for blastic metastatic disease. Correlation with whole-body bone scan is recommended. No acute abnormality is identified in the abdomen or pelvis. Critical results were discussed with Dr. Mckinney by Dr. Preston at the time of dictation. Reading [facility] CC: Dr. Addison Mckinney MD; Dr. Ilya Monroe MD Border Measurer: Signed Normal [facility] Absolute lymphocyte countOrd ered By: Addison Mckinney on 10-09-2024 Lymphocytes Auto (Unsp spec) [#/Vol] 0.99 10*3/uL 0.83-4.51 [facility] Absolute neutrophil countOrd ered By: Addison Mckinney on 10-09-2024 Neutrophils (Bld) [#/Vol] 0.4 10*3/uL Low 2.0-7.7 [facility] Anion gap in Serum or Plasma Ordered By: Addison Mckinney on 10-09-2024 Anion gap [Moles/Vol] 10 mmol/L 5-15 [place] Automated lymphocyte count a s percentage of total leukocytesOrdered By: Addison Mckinney on 10-09-2024 Lymphocytes/100 WBC Auto (Unsp spec) 64.3 % High 19-41 [facility] BUN/creatinine ratioOrdered By: Addison Mckinney on 10-09-2024 Urea nitrogen/Creatinine [Mass ratio] 10.1 mg/mg 10-20 [facility] Basophil percentageOrdered B y: Addison Mckinney on 10-09-2024 Basophils/100 WBC (Bld) 1.3 % High 0-1 [facility] Bilirubin Test strip Ql (U)O rdered By: Addison Mckinney on 10-09-2024 Bilirubin Ql (U) Negative Negative [facility] Bilirubin, totalOrdered By: Addison Mckinney on 10-09-2024 Bilirubin [Mass/Vol] 0.59 mg/dL Normal 0.00-1.30 [facility] Comment on above: Performed By: #### L 501.2450, L500.4050, L100.0100 ####[facility] [address] [place], [address] CBC W/Diff, Automatedon PLT EST A Normal ADEQ [facility] Comment on above: Performed By: #### L 501.2450, L500.4050, L100.0100 ####[facility] [address] [place], [address] ATYPICAL LYMPH 1+ Normal [facility] Comment on above: Performed By: #### L 501.2450, L500.4050, L100.0100 ####[facility] [address] [place], [address] REACTIVE LYMPH 1+ Normal [facility] Comment on above: Performed By: #### L 501.2450, L500.4050, L100.0100 ####[facility] [address] [place], [address] CNPNon 10-09-2024 CNPN Normal [facility] Carbon dioxide, total [Moles /volume] in Central venous bloodOrdered By: Addison Mckinney on 10-09-2024 CO2 [Moles/Vol] 25.5 mmol/L Normal 21.0-32.0 [facility] Comment on above: Performed By: #### L 501.2450, L500.4050, L100.0100 ####[facility] [address] [place], [address] Chloride assayOrdered By: Dev Mckinney on 10-09-2024 Chloride [Moles/Vol] 105 mmol/L Normal 98-108 [facility] Comment on above: Performed By: #### L 501.2450, L500.4050, L100.0100 ####[facility] [address] [place], [address] Comprehensive Metabolic Prof ilon 10-09-2024 ALK PHOS 46 U/L Normal 35-104 [facility] Comment on above: Performed By: #### L 501.2450, L500.4050, L100.0100 ####[facility] [address] [place], [address] BUN/CRE 10.1 RATIO Normal 10-20 [facility] Comment on above: Performed By: #### L 501.2450, L500.4050, L100.0100 ####[facility] [address] [place], [address] ECRCL 66.33 ml/min Normal 50-250 [facility] Comment on above: Performed By: #### L 501.2450, L500.4050, L100.0100 ####[facility] [address] [place], [address] GAP 10 Normal 5-15 [facility] Comment on above: Performed By: #### L 501.2450, L500.4050, L100.0100 ####[facility] [address] [place], [address] Potassium [Moles/Vol] 4.0 mmol/L Normal 3.3-5.1 [place] Comment on above: Result Comment: Hemo lysis present, Results??could be affected. ?? Performed By: #### L 501.2450, L500.4050, L100.0100 ####[facility] [address] [place], [address] T PROT 6.5 g/dL Normal 5.9-8.4 [facility] Comment on above: Performed By: #### L 501.2450, L500.4050, L100.0100 ####[facility] [address] [place], [address] Comprehensive Metabolic Prof ilOrdered By: Addison Mckinney on 10-09-2024 AST [Catalytic activity/Vol] 40 U/L High <=31 [facility] Comment on above: Hemolysis present, R esults could be affected. Result Comment: Hemo lysis present, Results??could be affected. ?? Performed By: #### L 501.2450, L500.4050, L100.0100 ####[facility] [address] [place], [address] Emergency Department Summary on 10-09-2024 Emergency Department Summary [facility] Medical Records Department [address] [place] [address] Emergency Department Summary 10/09/24 MR#: [id number] Acct: [id number] Name: DARLING FLOREZ Rep #: [id number] : 1955 69 From: Addison Mckinney MD PCP: Dr. Ilya Monroe MD Status:REG ER Location: ED HPI HPI - GI History of Present Illness Chief Complaint: Shortness of Breath Detail of Chief Complaint: Patient denies shortness of breath. She is here for abdominal pain. Informant: patient Abdominal Pain/Flank Pain Onset: Days Context: Gradual Onset Timing: Continuous Quality: Aching Location: RUQ and - (Upper abdomen. Diffuse. Primarily right upper quadrant.) Current Severity: Mild Maximum Severity: Mild Worsened by: Nothing Relieved by: Nothing Nausea/Vomiting/Emesis GI Symptom: Positive for Nausea; Negative for Vomiting Onset: Days Severity: Mild Diarrhea/Melena/Hematoch ezia GI Symptom: Negative for Diarrhea, Melena or Hematochezia Associated Symptoms Associated Symptoms: Negative for Dysuria, Frequency, Hematuria or Urgency Narrative Narrative: 69-year-old female history of breast cancer with metastases treated since 2022 currently on oral chemotherapy. Prior appendectomy. Still has her gallbladder. History of hypertension also. Patient states she just feels generally weak. She is having diffuse abdominal pain primarily right upper quadrant since last week. Associated nausea no vomiting or fever. No change with food. No dysuria. Prior similar symptoms: No Recent Illness/Hospitalization: No PFSH PFSH Medical History Breast cancer Coronary artery disease Dyslipidemia Aortic valve sclerosis Near syncope Hyperlipidemia History of left heart catheterization (LHC) ( 06/03/21) 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y artery without angina pectoris Abnormal stress test Unstable angina Depression Anxiety Hypertension Migraines Bradycardia Pneumonia due to COVID-19 virus Acute respiratory failure with hypoxia Hypoxemia COVID-19 COVID-19 GERD (gastroesophageal reflux disease) Heart murmur Hearing problem Cataract Back problem Asthma Arthritis Allergies Bronchitis Dysuria Urinary urgency Acquired stenosis of urethral meatus Essential hypertension PND (post-nasal drip) Dyspnea on exertion Fibrocystic breast disease External hemorrhoid, thrombosed Lymphocytosis Leukopenia Fibrocystic breast disease Former smoker Family history of cardiovascular disease Asthma GERD (gastroesophageal reflux disease) Fibromyalgia Obesity (BMI 30.0-34.9) Sciatica Home Medications ???Medication ???Instructions ???Recorded ???Last Taken ???Type citalopram 40 mg tablet (Celexa) 40 mg PO DAILY mental health 11/0706/02/21 History gabapentin 600 mg tablet 600 mg PO QHS PRN nerve pain 11/07 Unknown History gabapentin 100 mg capsule 100 mg PO DAILY nerve pain 9 Unknown History albuterol sulfate 2.5 mg/3 mL 2.5 mg (3 mL) inhalation Q4H PRN 1 Unknown Rx (0.083 %) solution for nebulization Sob /Or Wheezing #180 mL fluticasone propionate 50 1 spray intranasal BID PRN 1 Unknown History mcg/actuation nasal Congestion spray,suspension cholecalciferol (vitamin D3) 125 125 mcg PO DAILY vitamin 06/02/21 06/02/21 History mcg (5,000 unit) capsule dicyclomine 20 mg tablet 20 mg PO TID PRN abdominal 3 Unknown Rx cramping #20 tabs anastrozole 1 mg tablet 1 mg PO DAILY cancer 04/28/23 Unkn own History albuterol sulfate 90 mcg/actuation 2 puff inhalation Q4H PRN Unknown Rx aerosol inhaler (Ventolin HFA) shortness of breath or wheezing #1 device amlodipine 2.5 mg tablet (Norvasc) 2.5 mg PO DAILY #90 tabs 4 Unknown Rx atorvastatin 40 mg tablet 40 mg PO QHS #90 tabs 11/23/23 Unk nown Rx azelastine 137 mcg (0.1 %) nasal 2 spray intranasal BID PRN nasal 0 11/23/23 Unknown History spray congestion hydrochlorothiazide 12.5 mg capsule 12.5 mg PO DAILY diuretic #90 c aps 11/23/23 Unknown Rx losartan 25 mg tablet 25 mg PO DAILY blood pressure #90 11/23/23 Unknown Rx tabs multivitamin (Daily Multi-Vitamin 1 tab PO DAILY 11/23/23 Unknown H istory tablet) palbociclib 125 mg capsule 125 mg PO DAILY 11/23/23 Unknown H istory (Ibrance) isosorbide mononitrate 60 mg 60 mg PO DAILY #90 tabs 08/02/24 U nknown Rx tablet,extended release 24 hr budesonide-formoterol HFA 160 2 puff inhalation BID PRN asthma 0 08/09/24 Unknown History mcg-4.5 mcg/actuation aerosol inhaler (Symbicort) montelukast 10 mg tablet 10 mg PO DAILY allergies #90 tabs 08/09/24 Unknown Rx (Singulair) pantoprazole 40 mg tablet,delayed 40 mg PO BID reflux 08/09/24 Unkn own History release elderberry f (more content not included)... Normal [facility] Eosinophil percentageOrdered By: Addison Mckinney on 10-09-2024 Eosinophils/100 WBC (Bld) 1.9 % 0-5 [facility] Erythrocyte distribution wid th ratioOrdered By: Addison Mckinney on 10-09-2024 Erythrocyte distribution width (RBC) [Ratio] 12.6 % 11.6-14.6 [facility] Erythrocyte distribution wid th standard deviationOrdered By: Addison Mckinney on 10-09-2024 Erythrocyte distribution width (RBC) [Ratio] 47.9 fl High 35.1-43.9 [facility] Glomerular filtration rate ( GFR) estimation/1.73 sq m using serum, plasma, or whole bOrdered By: Addison Mckinney on 10-09-2024 GFR/1.73 sq M.predicted among non-blacks MDRD (S/P/Bld) [Vol rate/Area] 57 mL/min/{1.73_m2} Low >60 [facility] Comment on above: mL/min/1.73m2 CKD-EP I Creatinine Equation (2020) Result Comment: mL/m in/1.73m2 CKD-EPI Creatinine Equation (2020) Performed By: #### L 501.2450, L500.4050, L100.0100 ####[facility] [address] [place], [address] Hematocrit Auto (Bld) [Volum e fraction]Ordered By: Addison Mckinney on 10-09-2024 Hematocrit (Bld) [Volume fraction] 32.2 % Low 37-47 [facility] Hemoglobin measurementOrdere d By: Addison Mckinney on 10-09-2024 Hemoglobin (Bld) [Mass/Vol] 11.5 g/dL Low 12.0-15.0 [facility] Immature granulocytes/100 WB C Auto (Bld)Ordered By: Addison Mckinney on 10-09-2024 Immature granulocytes/100 WBC (Bld) 0.600 % 0.0-0.9 [facility] Comment on above: IG% - Immature Granu locytes (promyelocytes, myelocytes and metamyelocytes) > 1% indicates that a LEFT SHIFT is Present. Ketones Test strip Ql (U)Ord ered By: Addison Mckinney on 10-09-2024 Ketones Ql (U) Negative Negative [facility] Lipase measurementOrdered By : Addison Mckinney on 10-09-2024 Lipase [Catalytic activity/Vol] 22 U/L Normal 13-75 [facility] Comment on above: Please note:LIPASE r evised reference range effective 22. New Lipase methodology. Expected to produce lower values than the previous assay method. NEW Reference Range: 13 - 75 U/L Result Comment: Ashlee moeller note: LIPASE revised reference range effective 22. New Lipase methodology. Expected to produce lower values than the previous assay method. NEW Reference Range: 13 - 75 U/L Performed By: #### L 501.2450, L500.4050, L100.0100 ####[facility] [address] [place], [address] MCV (mean corpuscular volume ) determinationOrdered By: Addison Mckinney on 10-09-2024 MCV (RBC) [Entitic vol] 104.9 fL High 81-99 [facility] Mean corpuscular hemoglobin (MCH) determinationOrdered By: Addison Mckinney on 10-09-2024 MCH (RBC) [Entitic mass] 37.5 pg High 27.0-32.0 [facility] Mean corpuscular hemoglobin concentration (MCHC) determinationOrdered By: Addison Mckinney on 10-09-2024 MCHC (RBC) [Mass/Vol] 35.7 g/dL 32-36 [place] Mean platelet volume determi nationOrdered By: Addison Mckinney on 10-09-2024 Platelet mean volume (Bld) [Entitic vol] 8.7 fL 6.2-12.0 [facility] Microscopic analysis of urin e for red blood cells (RBC)Ordered By: Addison Mckinney on 10-09-2024 Microscopic analysis of urine for red blood cells (RBC) 0 SEEN /hpf 0-5 [facility] Monocyte percentageOrdered B y: Addison Mckinney on 10-09-2024 Monocytes/100 WBC (Bld) 7.1 % 0-10 [facility] Mucus LM Ql (Urine sed)Order ed By: Addison Mckinney on 10-09-2024 Mucus Ql (Urine sed) 0 SEEN /hpf [place] Neutrophil percentageOrdered By: Addison Mckinney on 10-09-2024 Neutrophils/100 WBC (Bld) 24.8 % Low 47-70 [facility] Nitrite Test strip Ql (U)Ord ered By: Addison Mckinney on 10-09-2024 Nitrite Ql (U) Negative Negative [facility] Nucleated red blood cell per centageOrdered By: Addison Mckinney on 10-09-2024 Nucleated RBC/100 WBC (Bld) [Ratio] 0 % 0-5 [facility] Platelet countOrdered By: Dev Mckinney on 10-09-2024 Platelets (Bld) [#/Vol] 164 10*3/uL 150-450 [facility] Platelet estimateOrdered By: Addison Mckinney on 10-09-2024 Platelets LM Ql (Bld) A ADEQ [place] Potassium measurement (mass/ volume)Ordered By: Addison Mckinney on 10-09-2024 Potassium (Unsp spec) [Mass/Vol] 4.0 mmol/L 3.3-5.1 [facility] Comment on above: Hemolysis present, R esults could be affected. Protein Test strip Ql (U)Ord ered By: Addison Mckinney on 10-09-2024 Protein Ql (U) 15 mg/dl High Negative [facility] RBC Auto (Bld) [#/Vol]Ordere d By: Addison Mckinney on 10-09-2024 RBC (Bld) [#/Vol] 3.07 10*6/uL Low 4.2-5.4 [facility] Serum creatinine measurement (mass/volume)Ordered By: Addison Mckinney on 10-09-2024 Creatinine [Mass/Vol] 1.07 mg/dL Normal 0.70-1.20 [place] Comment on above: Performed By: #### L 501.2450, L500.4050, L100.0100 ####[facility] [address] [place], [address] Serum globulin measurementOr dered By: Addison Mckinney on 10-09-2024 Globulin (S) [Mass/Vol] 2.5 g/dL Normal 2.2-4.2 [facility] Comment on above: Performed By: #### L 501.2450, L500.4050, L100.0100 ####[facility] [address] [place], [address] Serum glucose measurement (m ass/volume)Ordered By: Addison Mckinney on 10-09-2024 Glucose [Mass/Vol] 103 mg/dL High 70-99 [facility] Comment on above: Performed By: #### L 501.2450, L500.4050, L100.0100 ####[facility] [address] [place], [address] Serum or plasma alanine singer otransferase (ALT) measurementOrdered By: Addison Mckinney on 10-09-2024 ALT [Catalytic activity/Vol] 30 U/L Normal <=34 [facility] Comment on above: Performed By: #### L 501.2450, L500.4050, L100.0100 ####[facility] [address] [place], [address] Serum or plasma albumin jorge urement (mass/volume)Ordered By: Addison Mckinney on 10-09-2024 Albumin [Mass/Vol] 4.0 g/dL Normal 3.4-4.8 [facility] Comment on above: Performed By: #### L 501.2450, L500.4050, L100.0100 ####[facility] [address] [place], [address] Serum or plasma albumin/glob ulin mass ratioOrdered By: Addison Mckinney on 10-09-2024 Albumin/Globulin [Mass ratio] 1.6 {ratio} Normal 0.9-2.4 [facility] Comment on above: Performed By: #### L 501.2450, L500.4050, L100.0100 ####[facility] [address] [place], [address] Serum or plasma alkaline elsie sphatase measurementOrdered By: Addison Mckinney on 10-09-2024 ALP [Catalytic activity/Vol] 46 U/L 35-104 [facility] Serum or plasma calcium jorge urement (mass/volume)Ordered By: Addison Mckinney on 10-09-2024 Calcium [Mass/Vol] 8.9 mg/dL Normal 7.6-11.0 [facility] Comment on above: Performed By: #### L 501.2450, L500.4050, L100.0100 ####[facility] [address] [place], [address] Serum or plasma urea nitroge n measurement (mass/volume)Ordered By: Addison Mckinney on 10-09-2024 Urea nitrogen [Mass/Vol] 11 mg/dL Normal 4-19 [facility] Comment on above: Performed By: #### L 501.2450, L500.4050, L100.0100 ####[facility] [address] [place], [address] Sodium levelOrdered By: Addison Mckinney on 10-09-2024 Sodium [Moles/Vol] 140 mmol/L Normal 133-145 [facility] Comment on above: Performed By: #### L 501.2450, L500.4050, L100.0100 ####[facility] [address] [place], [address] Squamous epithelial cells de tection in urine sediment by light microscopyOrdered By: Addison Mckinney on 10-09-2024 Epithelial cells.squamous LM Ql (Urine sed) 0-5 SEEN /hpf - [facility] Total proteinOrdered By: Gee Mckinney on 10-09-2024 Protein [Mass/Vol] 6.5 g/dL 5.9-8.4 [facility] Urinalysis, Completeon 10-09 EPI,SQUAMOUS 0-5 SEEN Normal - [facility] Comment on above: Order Comment: CLEAN CATCH Performed By: #### L 400.0001 ####[facility] [address] [place], [address] BACTERIA 0 SEEN Normal None Seen [facility] Comment on above: Order Comment: CLEAN CATCH Performed By: #### L 400.0001 ####[facility] [address] [place], [address] Mucus Ql (Urine sed) 0 SEEN Normal [facility] Comment on above: Order Comment: CLEAN CATCH Performed By: #### L 400.0001 ####[facility] [address] [place], [address] RBC 0 SEEN Normal 0-5 [facility] Comment on above: Order Comment: CLEAN CATCH Performed By: #### L 400.0001 ####[facility] [address] [place], [address] WBC 0 SEEN Normal 0-5 [facility] Comment on above: Order Comment: CLEAN CATCH Performed By: #### L 400.0001 ####[facility] [address] [place], [address] Urine clarityOrdered By: Gee Mckinney on 10-09-2024 Clarity (U) Sl. Cloudy Clear [facility] Urine color determinationOrd ered By: Addison Mckinney on 10-09-2024 Color (U) Yellow Yellow [facility] Urine glucose detectionOrder ed By: Addison Mckinney on 10-09-2024 Glucose Ql (U) Normal mg/dl Normal [facility] Urine leukocyte esterase det ection by dipstickOrdered By: Addison Mckinney on 10-09-2024 Leukocyte esterase Test strip Ql (U) Negative Negative [facility] Urine pHOrdered By: Addison salgado on 10-09-2024 pH (U) 7.0 [pH] 5.0 - 8.0 [facility] Urine sediment bacteria coun t by microscopy (number/high power field)Ordered By: Addison Mckinney on 10-09-2024 Bacteria LM.HPF (Urine sed) [#/Area] 0 /[HPF] None Seen [facility] Urine specific gravity measu rementOrdered By: Addison Mckinney on 10-09-2024 Specific gravity (U) [Rel density] 1.010 1.002-1.030 [facility] Urine urobilinogen measureme ntOrdered By: Addison Mckinney on 10-09-2024 Urobilinogen Ql (U) Normal mg/dl Normal [place] White blood cell (WBC) count Ordered By: Addison Mckinney on 10-09-2024 WBC (Bld) [#/Vol] 1.5 10*3/uL Low 4.4-11.0 [facility] Comment on above: CRITICAL VALUE ASKEW D JOSE DAVID KRAMER RN (ER)10/09/24 1214 Javier Rao.RESULTS READ BACK BY SAME. White blood cell countOrdere d By: Addison Mckinney on 10-09-2024 White blood cell count 0 SEEN /hpf 0-5 [facility] BACTERIAL VAGINOSIS NAATon 0 10-08-2024 Interpretation and review of laboratory results Normal [facility] Lactobacillus crispatus+gasseri+asuncion senii + Gardnerella vaginalis + Atopobium vaginae rRNA DOUGLAS+probe Ql (Vag fld) Not detected Not detected [facility] Lactobacillus crispatus+gasseri+asuncion senii + Gardnerella vaginalis + Atopobium vaginae rRNA DOUGLAS+probe Ql (Vag fld) Not detected Normal Not detected [facility] Comment on above: Order Comment: Speci men Type: SWABOrdering Facility: [facility] Address: [address] [place] [address] Performed By: #### C VTV, BVAMP ####[facility] LABCLIA [id number] [place] [address] [place] Bacteria Ur Culton Bacteria identified Cx Nom (U) CULTURE, URINE: No growth (<1,000 CFU/ml) Normal [facility] Comment on above: Performed By: #### 6 30-4 ####[facility] LABCLIA [id number] [place] [address] [place] LARRY/TRICHOMONAS NAATon 0 10-08-2024 C. glabrata RNA DOUGLAS+probe Ql (Vag fld) Not detected Not detected [facility] Larry sp DNA DOUGLAS+probe Ql (Vag fld) Not detected Not detected [facility] Comment on above: The Larry species group target includes C. albicans, C. tropicalis, C. parapsilosis, and C. dubliniensis. Interpretation and review of laboratory results Normal [facility] T. vaginalis DNA DOUGLAS+probe Ql (Unsp spec) Not detected Not detected [facility] C. glabrata RNA DOUGLAS+probe Ql (Vag fld) Not detected Normal Not detected [facility] Comment on above: Order Comment: Speci men Type: SWABOrdering Facility: [facility] Address: [address] [place] [address] Performed By: #### C VTV, BVAMP ####[facility] LABCLIA [id number] [place] [address] [place] Larry sp DNA DOUGLAS+probe Ql (Vag fld) Not detected Normal Not detected [facility] Comment on above: Order Comment: Speci men Type: SWABOrdering Facility: [facility] Address: [address] [place] [address] Result Comment: The Larry species group target includes C. albicans, C. tropicalis, C. parapsilosis, and C. dubliniensis. Performed By: #### C VTV, BVAMP ####[facility] LABCLIA [id number] [address] T. vaginalis DNA DOUGLAS+probe Ql (Unsp spec) Not detected Normal Not detected [facility] Comment on above: Order Comment: Speci men Type: SWABOrdering Facility: [facility] Address: [address] [place] [address] Performed By: #### C VTV, BVAMP ####[facility] LABCLIA [id number] [place] [address] [place] CNOVon 10-08-2024 CNOV Normal [facility] UA DIP, URINE (POC)on 2024 BILIRUBIN UA (POCT) Negative Negative [facility] CLARITY UA (POCT) Clear [facility] COLOR UA (POCT) Yellow [facility] GLUCOSE UA (POCT) Negative Negative mg/dL [facility] Hemoglobin Ql (U) Trace-intact Abnormal Negative [facility] Interpretation and review of laboratory results Abnormal [facility] KETONE UA (POCT) Negative Negative mg/dL [facility] LEUKOCYTES UA (POCT) Negative Negative [facility] NITRITE UA (POCT) Negative Negative [facility] PH UA (POCT) 5.5 4.5 - 8.0 [facility] Protein Ql (U) Negative Negative mg/dL [facility] SPECIFIC GRAVITY UA (POCT) 1.025 1.005 - 1.030 [facility] UROBILINOGEN UA (POCT) 0.2 Normal E.U./dL [facility] Location:[facility], [address] [facility], [place], [place], [id number] [place] [address] POINT OF CARE [facility] CNOVon 09-27-2024 CNOV Normal [facility] CNPNon 09-12-2024 CNPN Normal [facility] Urinalysis complete panel (U )on 09-12-2024 Bacteria LM.HPF (Urine sed) [#/Area] Negative Negative /HPF [facility] Bilirubin Ql (U) Negative Negative [facility] Clarity (Unsp spec) Clear Clear [facility] Color (U) Yellow Yellow [facility] Epithelial cells LM.HPF (Urine sed) [#/Area] None Seen /HPF [facility] Glucose Test strip (U) [Mass/Vol] Negative Negative [facility] Hemoglobin Ql (U) Negative Negative [facility] Hyaline casts (Urine sed) [#/Area] 0 /[LPF] 0 /LPF [facility] Ketones Ql (U) Negative Negative [facility] Leukocyte esterase Test strip Ql (U) Negative Negative [facility] Nitrite Ql (U) Negative Negative [facility] pH (U) 6 [pH] NINF - 8.5 [facility] Protein (U) [Mass/Vol] Negative Negative [facility] RBC LM.HPF (Urine sed) [#/Area] 0-2 /HPF 0-2 /HPF [facility] Specific gravity (U) [Rel density] 1.02 1.005 - 1.030 [facility] Urobilinogen Ql (U) 0.2 EU/dL 0.2-1.0 EU/dL [facility] WBC LM.HPF (Urine sed) [#/Area] 0-5 /HPF 0-5 /HPF [facility] This test was carlo la and its performance characteristics determined by [facility]'s [facility] [place] ([facility]). It has not been cleared or approved by the FDA. [facility] is regulated under CLIA as qualified to perform high-complexity testing. This test is used for clinical purposes. It should not be regarded as investigational or for research. [facility] CNOVon 09-11-2024 CNOV Normal [facility] UA DIP, URINE (POC)on 2024 BILIRUBIN UA (POCT) Negative Negative [facility] CLARITY UA (POCT) Slightly Cloudy Cl [facility] COLOR UA (POCT) Yellow [facility] GLUCOSE UA (POCT) Negative Negative mg/dL [facility] Hemoglobin Ql (U) Trace-lysed Abnormal Negative [facility] Interpretation and review of laboratory results Abnormal [facility] KETONE UA (POCT) Negative Negative mg/dL [facility] LEUKOCYTES UA (POCT) Trace Abnormal Negative [facility] NITRITE UA (POCT) Negative Negative [facility] PH UA (POCT) 6 4.5 - 8.0 [facility] Protein Ql (U) Negative Negative mg/dL [facility] SPECIFIC GRAVITY UA (POCT) 1.025 1.005 - 1.030 [facility] UROBILINOGEN UA (POCT) 0.2 Normal E.U./dL [facility] Location:[facility], [address] , [place], [place], [id number] [place] [address] POINT OF CARE [facility] URINALYSIS, REFLEX MICROSCOP ICon 09-11-2024 Bilirubin Ql (U) Negative Normal Negative [facility] Comment on above: Order Comment: Speci men Type: URINE SPECIMENOrdering Facility: [facility] Address: [address] [place] [address] Performed By: #### L [id number], 89003-7 ####[facility] LABCLIA [id number] [place] [address] [place] Clarity (Unsp spec) Clear Normal Clear [facility] Comment on above: Order Comment: Speci men Type: URINE SPECIMENOrdering Facility: [facility] Address: [address] [place] [address] Performed By: #### L [id number], 75046-9 ####[facility] LABCLIA [id number] [place] [id number] [place] Color (U) Yellow Normal Yellow [facility] Comment on above: Order Comment: Speci men Type: URINE SPECIMENOrdering Facility: [facility] Address: [address] [place] [address] Performed By: #### L AL2984, 89062-6 ####[facility] LABCLIA [id number] [address] [place] [address] [facility] OF MK Glucose Test strip (U) [Mass/Vol] Negative Normal Negative [facility] Comment on above: Order Comment: Speci men Type: URINE SPECIMENOrdering Facility: [facility] Address: [address] [place], [place] [address] Performed By: #### L [id number], 56369-0 ####[facility] LABCLIA [id number] [facility] [address] [place] [address] [place] Hemoglobin Ql (U) Negative Normal Negative [facility] Comment on above: Order Comment: Speci men Type: URINE SPECIMENOrdering Facility: [facility] Address: [address] [place] [address] Performed By: #### L [id number], 98752-3 ####[facility] LABCLIA [id number] [address], [facility] [place] Ketones Ql (U) Negative Normal Negative [facility] Comment on above: Order Comment: Speci men Type: URINE SPECIMENOrdering Facility: [facility] Address: [address] [place], [place] [address] Performed By: #### L [id number], 81154-6 ####[facility] LABCLIA [id number] [address] [place] [address] [place] Leukocyte esterase Test strip Ql (U) Negative Normal Negative [facility] Comment on above: Order Comment: Speci men Type: URINE SPECIMENOrdering Facility: [facility] Address: [address] [place], [place] [address] Performed By: #### L [id number], 64869-9 ####[facility] LABCLIA [id number] [address] [place] [address] [place] Nitrite Ql (U) Negative Normal Negative [facility] Comment on above: Order Comment: Speci men Type: URINE SPECIMENOrdering Facility: [facility] Address: [address] [place], [place] [address] Performed By: #### L [id number], 03285-8 ####[facility] LABCLIA [id number] [address], [place] [address] [place] pH (U) 6.0 [pH] Normal <8.5 [facility] Comment on above: Order Comment: Speci men Type: URINE SPECIMENOrdering Facility: [facility] Address: [address] [place] [address] Performed By: #### L [id number], 37124-8 ####[facility] LABCLIA [id number] [place] [address] [place] Protein (U) [Mass/Vol] Negative Normal Negative [facility] Comment on above: Order Comment: Speci men Type: URINE SPECIMENOrdering Facility: [facility] Address: [address] [place] [address] Performed By: #### L [id number], 85731-8 ####[facility] LABCLIA [id number] [place] [address] [place] Specific gravity (U) [Rel density] 1.020 Normal 1.005-1.030 [facility] Comment on above: Order Comment: Speci men Type: URINE SPECIMENOrdering Facility: [facility] Address: [address] [place] [address] Performed By: #### L [id number], 48590-1 ####[facility] LABCLIA [id number] [place] [address] [place] Urobilinogen Ql (U) 0.2 EU/dL Normal 0.2-1.0 EU/dL [facility] Comment on above: Order Comment: Speci men Type: URINE SPECIMENOrdering Facility: [facility] Address: [address] [place] [address] Performed By: #### L [id number], 09943-9 ####[facility] LABIA [id number] [place] [id number] [place] Urinalysis complete panel (U )on 09-11-2024 Bacteria LM.HPF (Urine sed) [#/Area] Negative Normal Negative [facility] Comment on above: Order Comment: Speci men Type: URINE SPECIMENOrdering Facility: [facility] Address: [address] [place] [address] Performed By: #### L [id number], 46132-0 ####[facility] LABCLIA [id number] [address] Epithelial cells LM.HPF (Urine sed) [#/Area] None Seen Normal [facility] Comment on above: Order Comment: Speci men Type: URINE SPECIMENOrdering Facility: [facility] Address: [address] [place] [address] Performed By: #### L [id number], 63507-6 ####[facility] LABCLIA [id number] [address] [place] Hyaline casts (Urine sed) [#/Area] 0 /[LPF] Normal 0 /LPF [facility] Comment on above: Order Comment: Speci men Type: URINE SPECIMENOrdering Facility: [facility] Address: [address] [place] [address] Performed By: #### L [id number], 70202-4 ####[facility] LABCLIA [id number] [place] [address] [place] RBC LM.HPF (Urine sed) [#/Area] 0-2 /HPF Normal 0-2 /HPF [facility] Comment on above: Order Comment: Speci men Type: URINE SPECIMENOrdering Facility: [facility] Address: [address] [place] [address] Performed By: #### L [id number], 14316-9 ####[facility] LABCLIA [id number] [place] [address] [place] WBC LM.HPF (Urine sed) [#/Area] 0-5 /HPF Normal 0-5 /HPF [facility] Comment on above: Order Comment: Speci men Type: URINE SPECIMENOrdering Facility: [facility] Address: [address] [place] [address] Performed By: #### L [id number], 06821-4 ####[facility] LABCLIA [id number] [facility] [id number] [place] [address] [place] Brain/Head without Contrasto n 09-09-2024 Brain/Head without Contrast [facility] [address] [place] [address] Brain/Head without Contrast MR#: [id number] Acct: [id number] Name: DARLING FLOREZ Rep #: [id number] : 1955 F 69 From: Javier Macias MD PCP: Dr. Ilya Monroe MD Status: REG ER Study: Brain/Head without Contrast Date of Exam: 05/05 Exam# [id number] Ordering Dr: Ema Cox PROCEDURE: BRAIN/HEAD WITHOUT CONTRAST 09/09/2024 REASON FOR EXAM: HEADACHE TECHNIQUE: Head CT without intravenous contrast. Coronal and Sagittal reconstruction series were provided. One or more dose reduction techniques were used (e.g., Automated exposure control, adjustment of the mA and/or kV according to patient size, use of iterative reconstruction technique. RADIATION DOSE SUMMARY: CTDlvol: 44.99 mGy DLP: 829.85 mGycm COMPARISON: 01/15/2023. FINDINGS: The ventricles are normal in size and midline in position. No evidence of acute hemorrhage or infarction. No extra-axial blood or fluid collections. Paranasal sinuses are clear. The mastoid air cells are well aerated. The calvarial vault and skull base are intact. CT/Brain/Head without Contrast IMPRESSION: No acute intracranial abnormality. Reading Location: [id number] CC: Dr. Ilya Monroe MD; ADELAIDA Painter Border Measurer: Signed Normal [facility] CNOVon 09-09-2024 CNOV Normal [facility] CTA Head AND Neck W/ Contras ton 09-09-2024 CTA Head AND Neck W/ Contrast [facility] [place], [place] [id number] CTA Head AND Neck W/ Contrast MR#: [id number] Acct: [id number] Name: DARLING FLOREZ Rep #: [id number] : 1955 F 69 From: Romy Ariza nd, MD PCP: Dr. Ilya Monroe MD Status: REG ER Study: CTA Head AND Neck W/ Contrast Date of Exam: Exam# [id number] Ordering Dr: Ema Cox PROCEDURE: CTA HEAD AND NECK W/ CONTRAST 09/09/2024 REASON FOR EXAM: HEADACHE TECHNIQUE: CTA imaging of the head and neck from the aortic arch to the skull vertex with intravenous contrast. Coronal and Sagittal reconstruction series were provided. 3D, 3D post processing, 3D reconstructions, Maximum intensity projection (MIPs) Volume rendering and Shaded surface rendering was provided. CONTRAST: Isovue 370 VOLUME: 100mL One or more dose reduction techniques were used (e.g., Automated exposure control, adjustment of the mA and/or kV according to patient size, use of iterative reconstruction technique). RADIATION DOSE SUMMARY: CTDlvol: 50 mGy DLP: 700 mGycm COMPARISON: Same-day noncontrast CT head. CTA head and neck 01/15/2023. FINDINGS: See same day noncontrast CT head for discussion of nonvascular findings. CTA neck: Two-vessel aortic arch. The bilateral vertebral arteries are widely patent. Calcific plaque of the bilateral cervical carotid arteries without focal narrowing by NASCET criteria. CTA head: Calcific plaque of the bilateral carotid siphons without focal narrowing. The bilateral anterior, middle and posterior cerebral arteries are widely patent. No aneurysm or AVM. Major venous structures: Unremarkable. Other findings: Cervical spondylosis. Biapical atelectasis/scarring. CT/CTA Head AND Neck W/ Contrast IMPRESSION: No large vessel occlusion, AVM or aneurysm. Reading Location: [id number] CC: Dr. Ilya Monroe MD; ADELAIDA Painter Border Measurer: Signed Normal [facility] Emergency Department Summary on 09-09-2024 Emergency Department Summary [facility] Medical Records Department [address] [place] [address] Emergency Department Summary 09/09/24 MR#: [id number] Acct: [id number] Name: DARLING FLOREZ Rep #: [id number] : 1955 69 From: Ema SON PCP: Dr. Ilya Monroe MD Status:DEP ER Location: ED HPI History of Present Illness Chief Complaint: Headache Narrative Narrative: 69-year-old female with past medical history of hypertension, breast cancer on oral chemotherapy presents with a gradual onset right-sided headache x 6 days. It involves the entire right side of her head. It is constant and nothing seems to make it better or worse. Tylenol has not helped. She states she avoids NSAIDs but is not sure why. She is not on blood thinners. She has no visual or speech changes. No fever or chills. No nausea or vomiting. No focal motor or sensory changes. She had migraines as a teenager but no significant headache or migraine history since. [facility] Medical History (Reviewed 08/09/24 @ 11:28 by Jules Scott INTERNATIONAL LOGISTICS ANALYST, INTERNATIONAL LOGISTICS ANALYST-C) Breast cancer Coronary artery disease Dyslipidemia Aortic valve sclerosis Near syncope Hyperlipidemia History of left heart catheterization (LHC) ( 06/03/21) 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y artery without angina pectoris Abnormal stress test Unstable angina Depression Anxiety Hypertension Migraines Bradycardia Pneumonia due to COVID-19 virus Acute respiratory failure with hypoxia Hypoxemia COVID-19 COVID-19 GERD (gastroesophageal reflux disease) Heart murmur Hearing problem Cataract Back problem Asthma Arthritis Allergies Bronchitis Dysuria Urinary urgency Acquired stenosis of urethral meatus Essential hypertension PND (post-nasal drip) Dyspnea on exertion Fibrocystic breast disease External hemorrhoid, thrombosed Lymphocytosis Leukopenia Fibrocystic breast disease Former smoker Family history of cardiovascular disease Asthma GERD (gastroesophageal reflux disease) Fibromyalgia Obesity (BMI 30.0-34.9) Sciatica Home Medications ???Medication ???Instructions ???Recorded ???Last Taken ???Type citalopram 40 mg tablet (Celexa) 40 mg PO DAILY mental health 11/0706/02/21 History gabapentin 600 mg tablet 600 mg PO QHS PRN nerve pain 11/07 Unknown History gabapentin 100 mg capsule 100 mg PO DAILY nerve pain 9 Unknown History albuterol sulfate 2.5 mg/3 mL 2.5 mg (3 mL) inhalation Q4H PRN 1 Unknown Rx (0.083 %) solution for nebulization Sob /Or Wheezing #180 mL fluticasone propionate 50 1 spray intranasal BID PRN 1 Unknown History mcg/actuation nasal Congestion spray,suspension cholecalciferol (vitamin D3) 125 125 mcg PO DAILY vitamin 06/02/21 06/02/21 History mcg (5,000 unit) capsule dicyclomine 20 mg tablet 20 mg PO TID PRN abdominal 3 Unknown Rx cramping #20 tabs anastrozole 1 mg tablet 1 mg PO DAILY cancer 04/28/23 Unkn own History albuterol sulfate 90 mcg/actuation 2 puff inhalation Q4H PRN Unknown Rx aerosol inhaler (Ventolin HFA) shortness of breath or wheezing #1 device amlodipine 2.5 mg tablet (Norvasc) 2.5 mg PO DAILY #90 tabs 4 Unknown Rx atorvastatin 40 mg tablet 40 mg PO QHS #90 tabs 11/23/23 Unk nown Rx azelastine 137 mcg (0.1 %) nasal 2 spray intranasal BID PRN nasal 0 11/23/23 Unknown History spray congestion hydrochlorothiazide 12.5 mg capsule 12.5 mg PO DAILY diuretic #90 c aps 11/23/23 Unknown Rx losartan 25 mg tablet 25 mg PO DAILY blood pressure #90 11/23/23 Unknown Rx tabs multivitamin (Daily Multi-Vitamin 1 tab PO DAILY 11/23/23 Unknown H istory tablet) palbociclib 125 mg capsule 125 mg PO DAILY 11/23/23 Unknown H istory (Ibrance) isosorbide mononitrate 60 mg 60 mg PO DAILY #90 tabs 08/02/24 U nknown Rx tablet,extended release 24 hr budesonide-formoterol HFA 160 2 puff inhalation BID PRN asthma 0 08/09/24 Unknown History mcg-4.5 mcg/actuation aerosol inhaler (Symbicort) montelukast 10 mg tablet 10 mg PO DAILY allergies #90 tabs 08/09/24 Unknown Rx (Singulair) pantoprazole 40 mg tablet,delayed 40 mg PO BID reflux 08/09/24 Unkn own History release elderberry fruit 200 mg capsule 200 mg PO DAILY 09/09/24 Unknown H istory Allergy/AdvReac Type Severity Reaction Status Date / Time apple Allergy Hives Verified 09/09/24 13:21 banana Allergy Hives Verified 09/09/24 13:21 carrot Allergy Hives Verified 09/09/24 13:21 pineapple Allergy Itching Verified 09/09/24 13:21 shellfish derived (lobster) Allergy Anaphylaxis Verified 09/09/24 13:21 shrimp Allergy Anaphylaxis Verified 09/09/24 13:21 amoxicillin AdvReac YEAST Verified 09/09/24 13:21 INFECTION Family History ... Normal [facility] CBC W Auto Differential pane l (Bld)on 09-07-2024 Basophils (Bld) [#/Vol] 0.05 10*3/uL Normal <0.11 [facility] Comment on above: Order Comment: Speci men Type: BLOOD SPECIMENOrdering Facility: [facility] Address: [address] [place] [address] Performed By: #### 5 7021-8 ####[facility] [id number] [address] LABCLIA [id number] [place] [address] [place] Basophils/100 WBC (Bld) 1.7 % Normal [facility] Comment on above: Order Comment: Speci men Type: BLOOD SPECIMENOrdering Facility: [facility] Address: [address] [place] [address] Performed By: #### 5 7021-8 ####[facility] [id number] [address] LABCLIA [id number] [place] [id number] [place] Dacrocytes LM Ql (Bld) Few Normal [facility] Comment on above: Order Comment: Speci men Type: BLOOD SPECIMENOrdering Facility: [facility] Address: [address] [place] [address] Performed By: #### 5 7021-8 ####[facility] MILLWNCLIA [id number] [place] [address] [place] [facility] LABCLIA [id number] [place] [address] [place] Differential cell count method Nom (Bld) Manual Normal [facility] Comment on above: Order Comment: Speci men Type: BLOOD SPECIMENOrdering Facility: [facility] Address: [address] [place] [address] Performed By: #### 5 7021-8 ####[facility] [id number] [place] [address] [place] [facility] LABCLIA [id number] [place] [address] [place] Eosinophils (Bld) [#/Vol] 0.00 10*3/uL Normal <0.46 [facility] Comment on above: Order Comment: Speci men Type: BLOOD SPECIMENOrdering Facility: [facility] Address: [address] [place] [address] Performed By: #### 5 7021-8 ####[facility] [id number] [place] [address] [place] [facility] LABCLIA [id number] [place] [address] [place] Eosinophils/100 WBC (Bld) 0.0 % Normal [facility] Comment on above: Order Comment: Speci men Type: BLOOD SPECIMENOrdering Facility: [facility] Address: [address] [place] [address] Performed By: #### 5 7021-8 ####[facility] JASSIWNCLIA [id number] [address] LABCLIA [id number] [address] [address] [place] Erythrocyte distribution width (RBC) [Ratio] 12.7 % Normal 11.5-15.0 [facility] Comment on above: Order Comment: Speci men Type: BLOOD SPECIMENOrdering Facility: [facility] Address: [address] [place] [address] Performed By: #### 5 7021-8 ####[facility]ALSOHAILLIA [id number] [address] LABCLIA [id number] [place] [address] [place] Hematocrit (Bld) [Volume fraction] 34.6 % Low 36.0-46.0 [facility] Comment on above: Order Comment: Speci men Type: BLOOD SPECIMENOrdering Facility: [facility] Address: [address] [place] [address] Performed By: #### 5 7021-8 ####[facility] BIENVENIDOHAMLIA [id number] [address] LABCLIA [id number] [place] [id number] [place] Hemoglobin (Bld) [Mass/Vol] 12.4 g/dL Normal 11.5-15.5 [facility] Comment on above: Order Comment: Speci men Type: BLOOD SPECIMENOrdering Facility: [facility] Address: [address] [place], [place] [address] Performed By: #### 5 7021-8 ####[facility] BIENVENIDOWNCLIA [id number] [address] STATES [facility] LABCLIA [id number] [place] [id number] [place] Lymphocytes (Bld) [#/Vol] 1.56 10*3/uL Normal 1.00-4.00 [facility] Comment on above: Order Comment: Speci men Type: BLOOD SPECIMENOrdering Facility: [facility] Address: [address] [place] [address] Performed By: #### 5 7021-8 ####[facility]ENTERLIA [id number] [address] LABCLIA [id number] [place] [address] [place] Lymphocytes/100 WBC (Bld) 57.4 % Normal [facility] Comment on above: Order Comment: Speci men Type: BLOOD SPECIMENOrdering Facility: [facility] Address: [address] [place] [address] Performed By: #### 5 7021-8 ####[facility] [id number] [address] LABCLIA [id number] [place] [address] [place] MCH (RBC) [Entitic mass] 37.0 pg High 26.0-34.0 [facility] Comment on above: Order Comment: Speci men Type: BLOOD SPECIMENOrdering Facility: [facility] Address: [address] [place] [address] Performed By: #### 5 7021-8 ####[facility]ITALWNCLIA [id number] [address] LABCLIA [id number] [place] [id number] [place] MCHC (RBC) [Mass/Vol] 35.8 g/dL Normal 30.5-36.0 [facility] Comment on above: Order Comment: Speci men Type: BLOOD SPECIMENOrdering Facility: [facility] Address: [address] [place] [address] Performed By: #### 5 7021-8 ####[facility]ITALWNCLIA [id number] [address] LABCLIA [id number] [place] [address] [place] MCV (RBC) [Entitic vol] 103.3 fL High 80.0-100.0 [facility] Comment on above: Order Comment: Speci men Type: BLOOD SPECIMENOrdering Facility: [facility] Address: [address] [place] [address] Performed By: #### 5 7021-8 ####[facility]ENTERLIA [id number] [address] LABCLIA [id number] [place] [address] [place] Monocytes (Bld) [#/Vol] 0.14 10*3/uL Normal <0.87 [facility] Comment on above: Order Comment: Speci men Type: BLOOD SPECIMENOrdering Facility: [facility] Address: [address] [place] [address] Performed By: #### 5 7021-8 ####[facility]ITALWNCLIA [id number] [address] LABCLIA [id number] [place] [address] [place] Monocytes/100 WBC (Bld) 5.2 % Normal [facility] Comment on above: Order Comment: Speci men Type: BLOOD SPECIMENOrdering Facility: [facility] Address: [address] [place] [address] Performed By: #### 5 7021-8 ####[facility] MILLTOWNCLIA [id number] [address] LABCLIA [id number] [address] [address] [place] Neutrophils (Bld) [#/Vol] 0.97 10*3/uL Low 1.45-7.50 [facility] Comment on above: Order Comment: Speci men Type: BLOOD SPECIMENOrdering Facility: [facility] Address: [address] [place] [address] Performed By: #### 5 7021-8 ####[facility]PITALWNCLIA [id number] [address] LABCLIA [id number] [place] [address] [place] Neutrophils/100 WBC (Bld) 35.7 % Normal [facility] Comment on above: Order Comment: Speci men Type: BLOOD SPECIMENOrdering Facility: [facility] Address: [address] [place] [address] Performed By: #### 5 7021-8 ####[facility]ITALWNCLIA [id number] [address] LABCLIA [id number] [place] [address] [place] Nucleated RBC (Bld) [#/Vol] 10*3/uL Normal <0.01 [facility] Comment on above: Order Comment: Speci men Type: BLOOD SPECIMENOrdering Facility: [facility] Address: [address] [place] [address] Performed By: #### 5 7021-8 ####[facility] MILLTOWNCLIA [id number] [address] LABCLIA [id number] [address] [address] [place] Nucleated RBC/100 WBC (Bld) [Ratio] 0.0 /100 WBC Normal [facility] Comment on above: Order Comment: Speci men Type: BLOOD SPECIMENOrdering Facility: [facility] Address: [address] [place] [address] Performed By: #### 5 7021-8 ####[facility] MILLTOWNCLIA [id number] [place] [address] [place] [facility] LABCLIA [id number] [place] [address] [place] Ovalocytes LM Ql (Bld) Few Normal [facility] Comment on above: Order Comment: Speci men Type: BLOOD SPECIMENOrdering Facility: [facility] Address: [address] [place] [address] Performed By: #### 5 7021-8 ####[facility]PITALWNCLIA [id number] [place] [address] [place] [facility] LABCLIA [id number] [place] [address] [place] Platelet mean volume (Bld) [Entitic vol] 8.1 fL Low 9.0-12.7 [facility] Comment on above: Order Comment: Speci men Type: BLOOD SPECIMENOrdering Facility: [facility] Address: [address] [place] [address] Performed By: #### 5 7021-8 ####[facility] MILLTOWNCLIA [id number] [place] [address] [place] [facility] LABCLIA [id number] [place] [address] [place] Platelets (Bld) [#/Vol] 169 10*3/uL Normal 150-400 [facility] Comment on above: Order Comment: Speci men Type: BLOOD SPECIMENOrdering Facility: [facility] Address: [address] [place] [address] Performed By: #### 5 7021-8 ####[facility] MILLTOWNCLIA [id number] [place] [address] [place] [facility] LABCLIA [id number] [address] [address] [place] Platelets Estimate (Bld) [#/Vol] Adequate Normal [facility] Comment on above: Order Comment: Speci men Type: BLOOD SPECIMENOrdering Facility: [facility] Address: [address] [place] [address] Performed By: #### 5 7021-8 ####[facility]PITALNCLIA [id number] [place] [address] [place] [facility] LABCLIA [id number] [place] [address] [place] Polychromasia LM Ql (Bld) Slight Normal [facility] Comment on above: Order Comment: Speci men Type: BLOOD SPECIMENOrdering Facility: [facility] Address: [address] [place] [address] Performed By: #### 5 7021-8 ####[facility]ITALWNCLIA [id number] [place] [address] [place] [facility] LABCLIA [id number] [address] [place] [address] [place] RBC (Bld) [#/Vol] 3.35 10*6/uL Low 3.90-5.20 [facility] Comment on above: Order Comment: Speci men Type: BLOOD SPECIMENOrdering Facility: [facility] Address: [address] [place] [address] Performed By: #### 5 7021-8 ####[facility] MILLTOWNCLIA [id number] [place] [address] [place] [facility] LABCLIA [id number] [address] [place] [address] [place] RBC FRAGMENTS Few Abnormal None Seen [facility] Comment on above: Order Comment: Speci men Type: BLOOD SPECIMENOrdering Facility: [facility] Address: [address] [place], [place] [address] Performed By: #### 5 7021-8 ####[facility] MILLWNCLIA [id number] [place] [address] [place] [facility] LABCLIA [id number] [place] [address] [place] RED CELL MORPH Reviewed: see result s of individual morphologies Normal [facility] Comment on above: Order Comment: Speci men Type: BLOOD SPECIMENOrdering Facility: [facility] Address: [address] [place] [address] Performed By: #### 5 7021-8 ####[facility] CENTERLIA [id number] [address] STATES [facility] LABCLIA [id number] [address], [place] [address] [place] WBC (Bld) [#/Vol] 2.72 10*3/uL Low 3.70-11.00 [facility] Comment on above: Order Comment: Speci men Type: BLOOD SPECIMENOrdering Facility: [facility] Address: [address] [place], [place] [address] Performed By: #### 5 7021-8 ####[facility]ITALNCLIA [id number] [place] [address] [place] [facility] LABCLIA [id number] [address] [place] [address] [place] CNOVSPon 09-07-2024 CNOVSP Normal [facility] metabolic 2000 panelOrdered By: Judit Magdaleno on 09-07-2024 Albumin [Mass/Vol] 4.3 g/dL 3.9 - 4.9 g/dL [facility] ALP [Catalytic activity/Vol] 52 U/L 34 - 123 U/L [facility] ALT [Catalytic activity/Vol] 24 U/L 7 - 38 U/L [facility] Anion gap [Moles/Vol] 11 mmol/L 8 - 15 mmol/L [facility] AST [Catalytic activity/Vol] 26 U/L 13 - 35 U/L [facility] Bilirubin [Mass/Vol] 0.6 mg/dL 0.2 - 1 .3 mg/dL [facility] Calcium [Mass/Vol] 9.6 mg/dL 8.5 - 10. 2 mg/dL [facility] Chloride [Moles/Vol] 103 mmol/L 98 - 10 7 mmol/L [facility] CO2 [Moles/Vol] 24 mmol/L 22 - 30 mmol/L [facility] Creatinine [Mass/Vol] 0.88 mg/dL 0.58 - 0.96 mg/dL [facility] GFR/1.73 sq M.predicted among non-blacks MDRD (S/P/Bld) [Vol rate/Area] 72 mL/min/{1.73_m2} - PINF [facility] Comment on above: Estimated Glomerular Filtration Rate (eGFR) is calculated using the 2020 CKD-EPI creatinine equation. This equation utilizes serum creatinine, sex, and age as parameters. The creatinine assay has traceable calibration to isotope dilution-mass spectrometry. Refer to KDIGO guidelines for clinical interpretation. In patients with unstable renal function, e.g. those with acute kidney injury, the eGFR may not accurately reflect actual GFR. Glucose [Mass/Vol] 112 mg/dL High 74 - 99 mg/dL [facility] Comment on above: The [place] Diabete s Association (ADA) provides guidance for cutoff values for fasting glucose and random glucose. The ADA defines fasting as no caloric intake for at least 8 hours. Fasting plasma glucose results between 100 to 125 mg/dL indicate increased risk for diabetes (prediabetes). Fasting plasma glucose results greater than or equal to 126 mg/dL meet the criteria for diagnosis of diabetes. In the absence of unequivocal hyperglycemia, results should be confirmed by repeat testing. In a patient with classic symptoms of hyperglycemia or hyperglycemic crisis, random plasma glucose results greater than or equal to 200 mg/dL meet the criteria for diagnosis of diabetes. Reference: Standards of Medical Care in Diabetes 2016, [place] Diabetes Association. Diabetes Care. 2016.39(Suppl 1). Interpretation and review of laboratory results Abnormal [facility] Potassium [Moles/Vol] 3.7 mmol/L 3.7 - 5.1 mmol/L [facility] Protein [Mass/Vol] 6.9 g/dL 6.3 - 8.0 g/dL [facility] Sodium [Moles/Vol] 138 mmol/L 136 - 144 mmol/L [facility] Urea nitrogen [Mass/Vol] 12 mg/dL 7 - 21 mg/dL [facility] Comprehensive metabolic 2000 panelon 09-07-2024 Albumin [Mass/Vol] 4.3 g/dL Normal 3.9-4.9 [facility] Comment on above: Order Comment: Speci beena Type: BLOOD SPECIMENOrdering Facility: [facility] Address: [address] [place] [address] Performed By: #### 2 4323-8 ####[facility] CENTERLIA [id number] [place] [address] [place] ALP [Catalytic activity/Vol] 52 U/L Normal 34-123 [facility] Comment on above: Order Comment: Lukasz hargrove Type: BLOOD SPECIMENOrdering Facility: [facility] Address: [address] [place] [address] Performed By: #### 2 4323-8 ####[facility]PITALWNCLIA [id number] [place] [address] [place] ALT [Catalytic activity/Vol] 24 U/L Normal 7-38 [facility] Comment on above: Order Comment: Lukasz hargrove Type: BLOOD SPECIMENOrdering Facility: [facility] Address: [address] [place] [address] Performed By: #### 2 4323-8 ####[facility] CENTERLIA [id number] [place] [address] [place] Anion gap [Moles/Vol] 11 mmol/L Normal 8-15 [facility] Comment on above: Order Comment: Speci men Type: BLOOD SPECIMENOrdering Facility: [facility] Address: [address] [place] [address] Performed By: #### 2 4323-8 ####[facility] CENTERLIA [id number] [place] [address] [place] AST [Catalytic activity/Vol] 26 U/L Normal 13-35 [facility] Comment on above: Order Comment: Speci men Type: BLOOD SPECIMENOrdering Facility: [facility] Address: [address] [place] [address] Performed By: #### 2 4323-8 ####[facility] [id number] [place] [address] [place] Bilirubin [Mass/Vol] 0.6 mg/dL Normal 0.2-1.3 [facility] Comment on above: Order Comment: Speci men Type: BLOOD SPECIMENOrdering Facility: [facility] Address: [address] [place] [address] Performed By: #### 2 4323-8 ####[facility]ENTERLIA [id number] [place] [address] [place] Calcium [Mass/Vol] 9.6 mg/dL Normal 8.5-10.2 [facility] Comment on above: Order Comment: Speci men Type: BLOOD SPECIMENOrdering Facility: [facility] Address: [address] [place] [address] Performed By: #### 2 4323-8 ####[facility] [id number] [place] [address] [place] Chloride [Moles/Vol] 103 mmol/L Normal 98-107 [facility] Comment on above: Order Comment: Speci men Type: BLOOD SPECIMENOrdering Facility: [facility] Address: [address] [place], [place] [address] Performed By: #### 2 4323-8 ####[facility] [id number] [place] [address] [place] CO2 [Moles/Vol] 24 mmol/L Normal 22-30 [facility] Comment on above: Order Comment: Speci men Type: BLOOD SPECIMENOrdering Facility: [facility] Address: [address] [place] [address] Performed By: #### 2 4323-8 ####[facility]ITAL[facility] [id number] [place] [address] [place] Creatinine [Mass/Vol] 0.88 mg/dL Normal 0.58-0.96 [facility] Comment on above: Order Comment: Speci men Type: BLOOD SPECIMENOrdering Facility: [facility] Address: [address] [place] [address] Performed By: #### 2 4323-8 ####[facility] [id number] [address] OF [facility] Creatinine and Glomerular filtration rate.predicted panel (S/P/Bld) 72 mL/min/1.73m??? Normal >=60 [facility] Comment on above: Order Comment: Speci men Type: BLOOD SPECIMENOrdering Facility: [facility] Address: [address] [place] [address] Result Comment: Emili mated Glomerular Filtration Rate (eGFR) is calculated using the 2020 CKD-EPI creatinine equation. This equation utilizes serum creatinine, sex, and age as parameters. The creatinine assay has traceable calibration to isotope dilution-mass spectrometry. Refer to KDIGO guidelines for clinical interpretation. In patients with unstable renal function, e.g. those with acute kidney injury, the eGFR may not accurately reflect actual GFR. Performed By: #### 2 4323-8 ####[facility]PITALWNCLIA [id number] [place] [address] [place] Glucose [Mass/Vol] 112 mg/dL High 74-99 [facility] Comment on above: Order Comment: Speci men Type: BLOOD SPECIMENOrdering Facility: [facility] Address: [address] [place], [place] [address] Result Comment: The [place] Diabetes Association (ADA) provides guidance for cutoff values for fasting glucose and random glucose. The ADA defines fasting as no caloric intake for at least 8 hours. Fasting plasma glucose results between 100 to 125 mg/dL indicate increased risk for diabetes (prediabetes).Fasting plasma glucose results greater than or equal to 126 mg/dL meet the criteria for diagnosis of diabetes. In the absence of unequivocal hyperglycemia, results should be confirmed by repeat testing. In a patient with classic symptoms of hyperglycemia or hyperglycemic crisis, random plasma glucose results greater than or equal to 200 mg/dL meet the criteria for diagnosis of diabetes.Reference: Standards of Medical Care in Diabetes 2016, [place] Diabetes Association. Diabetes Care. 2016.39(Suppl 1). Performed By: #### 2 4323-8 ####[facility] MILLTOWNCLIA [id number] [place] [address] [place] Potassium [Moles/Vol] 3.7 mmol/L Normal 3.7-5.1 [facility] Comment on above: Order Comment: Speci men Type: BLOOD SPECIMENOrdering Facility: [facility] Address: [address] [place], [place] [address] Performed By: #### 2 4323-8 ####[facility] MILLTOWNCLIA [id number] [place] [address] [place] Protein [Mass/Vol] 6.9 g/dL Normal 6.3-8.0 [facility] Comment on above: Order Comment: Speci men Type: BLOOD SPECIMENOrdering Facility: [facility] Address: [address] [place], [place] [address] Performed By: #### 2 4323-8 ####[facility] MILLTOWNCLIA [id number] [place] [address] [place] Sodium [Moles/Vol] 138 mmol/L Normal 136-144 [facility] Comment on above: Order Comment: Speci men Type: BLOOD SPECIMENOrdering Facility: [facility] Address: [facility] [place] [address] Performed By: #### 2 4323-8 ####[facility] MILLWNCLIA [id number] [address] [place] Urea nitrogen [Mass/Vol] 12 mg/dL Normal 7-21 [facility] Comment on above: Order Comment: Speci men Type: BLOOD SPECIMENOrdering Facility: [facility] Address: [address] [place] [address] Performed By: #### 2 4323-8 ####[facility] CENTERLIA [id number] [place] [address] [place] [address] ABD/PEL W IVCONon 025 CT ABD/PEL W IVCON Normal [facility] CT CHEST W IVCONon 5 CT CHEST W IVCON Normal [facility] NM BONE WHOLE BODYon 025 NM BONE WHOLE BODY Normal [facility] NM Whole body Bone Viewson 0 08-20-2024 IMPRESSION: Mild focus of new activity in the left anterolateral third rib level. Otherwise stable scattered foci of osseous metastases. Likely degenerative/arthritic changes as described. Border Measurer: YESY Transcribe Date/Time: Aug 20 2024 3:08P Dictated by : CARLTON HANDLEY MD This examination was interpreted and the report reviewed and electronically signed by: CARLTON HANDLEY MD on Aug 20 2024 5:49PM [facility] DIVISION OF RADIOLOGY * * *Final Report* * * DATE OF EXAM: Aug 20 2024 2:45PM [facility] [place] 0014 - [place] BONE WHOLE BODY / PROCEDURE REASON: multiple diagnoses * * * * Physician Interpretation * * * * WHOLE BODY BONE SCAN CLINICAL HISTORY: Breast cancer. TECHNIQUE: 22.9 millicuries Tc-99m MDP IV. Planar images of the whole body obtained in anterior and posterior views at about 3 hours post injection. static images of head, chest, abdomen and pelvis were also obtained. COMPARISON: Prior bone scan dated 12/15/2023 CORRELATION: CT scan chest, abdomen and pelvis dated 08/20/2024 RESULT: Mild heterogeneous uptake in the left anterolateral third rib level. Stable uptake in the left skull base, posterior skull, craniocervical junction, bony pelvis. Increased activity in the shoulders, sternoclavicular joints, cervical spine, thoracolumbar spine, SI joints, hips, knees, ankles and feet are likely degenerative/arthritic changes. DIVISION OF RADIOLOGY Provider, [facility] - 08/20/2024 * * *Final Report* * * DATE OF EXAM: Aug 20 2024 2:45PM [facility] [address] [place] [address] BONE WHOLE BODY / PROCEDURE REASON: multiple diagnoses * * * * Physician Interpretation * * * * WHOLE BODY BONE SCAN CLINICAL HISTORY: Breast cancer. TECHNIQUE: 22.9 millicuries Tc-99m MDP IV. Planar images of the whole body obtained in anterior and posterior views at about 3 hours post injection. static images of head, chest, abdomen and pelvis were also obtained. COMPARISON: Prior bone scan dated 12/15/2023 CORRELATION: CT scan chest, abdomen and pelvis dated 08/20/2024 RESULT: Mild heterogeneous uptake in the left anterolateral third rib level. Stable uptake in the left skull base, posterior skull, craniocervical junction, bony pelvis. Increased activity in the shoulders, sternoclavicular joints, cervical spine, thoracolumbar spine, SI joints, hips, knees, ankles and feet are likely degenerative/arthritic changes. IMPRESSION IMPRESSION: Mild focus of new activity in the left anterolateral third rib level. Otherwise stable scattered foci of osseous metastases. Likely degenerative/arthritic changes as described. Border Measurer: PSCB Transcribe Date/Time: Aug 20 2024 3:08P Dictated by : CARLTON HANDLEY MD This examination was interpreted and the report reviewed and electronically signed by: CARLTON HANDLEY MD on Aug 20 2024 5:49PM [facility] Radiology Study observation (narrative) [facility] Whole body Bone ViewsOrde red By: Ccf Provider on 08-20-2024 [facility] Bacteria Ur Culton Bacteria identified Cx Nom (U) CULTURE, URINE: No growth (<1,000 CFU/ml) Normal [facility] Comment on above: Performed By: #### 6 30-4 ####[facility] LABCLIA [id number] [address] [place] CNOVon 08-17-2024 CNOV Normal [facility] UA DIP, URINE (POC)on 2024 BILIRUBIN UA (POCT) Negative Negative [facility] CLARITY UA (POCT) Clear [facility] COLOR UA (POCT) Yellow [facility] GLUCOSE UA (POCT) Negative Negative mg/dL [facility] Hemoglobin Ql (U) Trace-intact Abnormal Negative [facility] Interpretation and review of laboratory results Abnormal [facility] KETONE UA (POCT) Negative Negative mg/dL [facility] LEUKOCYTES UA (POCT) Negative Negative [facility] NITRITE UA (POCT) Negative Negative [facility] PH UA (POCT) 6 4.5 - 8.0 [facility] Protein Ql (U) Negative Negative mg/dL [facility] SPECIFIC GRAVITY UA (POCT) 1.025 1.005 - 1.030 [facility] UROBILINOGEN UA (POCT) 0.2 Normal E.U./dL [facility] Location:[facility], [address], [place], [place], [id number] [place] [address] POINT OF CARE [facility] CNPNon 08-16-2024 CNPN Normal [facility] DBT Breast - right diagnosti c for implanton 08-15-2024 IMPRESSION: There is no mammographic evidence of malignancy. BI-RADS Category 2: Benign RISK: Due to the reported patient's history, the patient's estimated lifetime risk of developing breast cancer cannot be assessed at this time. We encourage all patients to talk with their providers about their risk assessment, further recommendations for managing breast health, and appropriate supplemental screening options if the patient has dense breast tissue. Interpreting Radiologist: Janet Carrera M.D. Electronically signed on: 08/15/2024 Border Measurer: JUANJOSE Transcribe Date/Time: Aug 15 2024 10:46A Dictated by: JANET CARRERA MD This examination was interpreted and the report reviewed and electronically signed by: JANET CARRERA MD on Aug 15 2024 12:21PM [facility] DIVISION OF RADIOLOGY * * *Final Report* * * DATE OF EXAM: Aug 15 2024 11:08AM [facility] 0629 - TERESE DIAG W RAFY RT / PROCEDURE REASON: Breast asymmetry * * * * Physician Interpretation * * * * RESULT: [facility] [address] [place] [address] #[id number] - TERESE DIAG W RAFY RT HISTORY: 68 year-old patient seen for diagnostic evaluation of the finding(s) described on prior mammogram in the right breast. The patient has the following personal history of breast cancer: breast cancer in the left breast. The patient has a family history of breast cancer. COMPARISON STUDIES: The present examination has been compared to prior imaging studies dated 03/17/2023 (MRI), 03/25/2023 (ultrasound), 12/28/2023 (ultrasound), 06/15/2024 (mammogram) and 08/15/2024 (ultrasound). MAMMOGRAM TECHNIQUE: The study was acquired using full field digital technology and interpreted from soft copy. Digital Breast Tomosynthesis (DBT) images were obtained and used to assist in the interpretation of this examination. MAMMOGRAM FINDINGS: The breast is heterogeneously dense, which may obscure small masses. Asymmetry of concern on screening mammogram is not reproduced, presumably representing superimposed fibroglandular tissue. No suspicious masses, calcifications or other abnormalities are seen in the right breast. DIVISION OF RADIOLOGY Provider, [facility] - 08/15/2024 * * *Final Report* * * DATE OF EXAM: Aug 15 2024 11:08AM [facility] 0629 - TERESE DIAG W RAFY RT / PROCEDURE REASON: Breast asymmetry * * * * Physician Interpretation * * * * RESULT: [facility] [address] [place] [address] #[id number] - TERESE DIAG W RAFY RT HISTORY: 68 year-old patient seen for diagnostic evaluation of the finding(s) described on prior mammogram in the right breast. The patient has the following personal history of breast cancer: breast cancer in the left breast. The patient has a family history of breast cancer. COMPARISON STUDIES: The present examination has been compared to prior imaging studies dated 03/17/2023 (MRI), 03/25/2023 (ultrasound), 12/28/2023 (ultrasound), 06/15/2024 (mammogram) and 08/15/2024 (ultrasound). MAMMOGRAM TECHNIQUE: The study was acquired using full field digital technology and interpreted from soft copy. Digital Breast Tomosynthesis (DBT) images were obtained and used to assist in the interpretation of this examination. MAMMOGRAM FINDINGS: The breast is heterogeneously dense, which may obscure small masses. Asymmetry of concern on screening mammogram is not reproduced, presumably representing superimposed fibroglandular tissue. No suspicious masses, calcifications or other abnormalities are seen in the right breast. IMPRESSION IMPRESSION: There is no mammographic evidence of malignancy. BI-RADS Category 2: Benign RISK: Due to the reported patient's history, the patient's estimated lifetime risk of developing breast cancer cannot be assessed at this time. We encourage all patients to talk with their providers about their risk assessment, further recommendations for managing breast health, and appropriate supplemental screening options if the patient has dense breast tissue. Interpreting Radiologist: Janet Carrera M.D. Electronically signed on: 08/15/2024 Border Measurer: JUANJOSE Transcribe Date/Time: Aug 15 2024 10:46A Dictated by: JANET CARRERA MD This examination was interpreted and the report reviewed and electronically signed by: JANET CARRERA MD on Aug 15 2024 12:21PM EST [facility] DBT Breast - right diagnosti c for implantOrdered By: Ccf Provider on 08-15-2024 [facility] TERESE DIAG W RAFY RTon 025 TERESE DIAG W RAFY RT Normal [facility] US BREAST LTD LTon 08-15 [facility] US BREAST LTD LT Normal [facility] No Panel Informationon 08-15 Radiology Study observation (narrative) [facility] US Breast - left limitedon 0 08-15-2024 IMPRESSION: Finding 1: The 1 cm irregular mass in the left breast at 9 o'clock, 5 cm from the nipple is a known malignancy. Clinical management of known malignancy is recommended. This has mildly decreased in size compared to prior. Finding 2: The lymph node in the left breast at 1 o'clock, 6 cm from the nipple is a known malignancy. Clinical management of known malignancy is recommended. Findings appear similar. Finding 3: The lymph node in the left axilla is a known malignancy. Clinical management of known malignancy is recommended. Findings appear similar. Finding 4: The additional lymph node in the left breast is suspicious for malignancy, although not previously biopsied. Finding has decreased in size compared to prior. BI-RADS Category 6: Known malignancy. RISK: Due to the reported patient's history, the patient's estimated lifetime risk of developing breast cancer cannot be assessed at this time. We encourage all patients to talk with their providers about their risk assessment, further recommendations for managing breast health, and appropriate supplemental screening options if the patient has dense breast tissue. Interpreting Radiologist: Janet Carrera M.D. Electronically signed on: 08/15/2024 Border Measurer: JUANJOSE Transcribe Date/Time: Aug 15 2024 11:38A Dictated by : JANET CARRERA MD This examination was interpreted and the report reviewed and electronically signed by: JANET CARRERA MD on Aug 15 2024 12:47PM [facility] DIVISION OF RADIOLOGY * * *Final Report* * * DATE OF EXAM: Aug 15 2024 11:56AM U 0593 - TERESE [employer] LT / PROCEDURE REASON: Invasive ductal carcinoma of breast, left (HCC) * * * * Physician Interpretation * * * * [place] [address] #[id number] - [facility] [employer] BREAST [employer] LT HISTORY: 68 year-old patient seen for diagnostic evaluation of the finding(s) described on prior mammogram in the left breast. The patient has the following personal history of breast cancer: breast cancer in the left breast. The patient has a family history of breast cancer. Sensitive Examination Consent Statement: Participation of a fellow, resident, medical student, or advanced practice provider student in performing the sensitive examination was discussed with the patient or authorized medical detail representative. The patient or authorized medical detail representative agreed to proceed with the sensitive examination. (Sensitive examinations include inspection and/or palpation of the breasts, pelvis, prostate, and anorectal regions.) COMPARISON STUDIES: The present examination has been compared to prior imaging studies dated 03/17/2023 (MRI), 03/25/2023 (ultrasound), 12/28/2023 (ultrasound), 06/15/2024 (mammogram) and 08/15/2024 (mammogram). ULTRASOUND TECHNIQUE: Targeted ultrasound of the indicated area was performed. Urias scale images were saved. ULTRASOUND FINDINGS: Finding 1: There is an irregular mass measuring 1.2 x 0.5 x 0.9 cm in the left breast at 9 o'clock, 5 cm from the nipple. This has decreased in conspicuity compared to the prior exam. Associated biopsy clip. Finding 2: There is a 1.0 cm lymph node in the left breast at 1 o'clock, 6 cm from the nipple. Internal echotexture is hypoechoic. This demonstrates diffuse cortical thickening. Associated biopsy clip. There are no significant interval changes. Finding 3: There is a lymph node in the left axilla, measuring approximately 1.4 cm. Associated biopsy clip. Diffuse mild cortical thickening. Internal echotexture is hypoechoic. Finding 4: There is a second lymph node in the left axilla, which has not been previously biopsied. This has substantially decreased in size, currently measuring approximately 3 mm, previously 7 mm. DIVISION OF RADIOLOGY Provider, [facility] - 08/15/2024 * * *Final Report* * * DATE OF EXAM: Aug 15 2024 11:56AM U 0593 - [employer] LT / PROCEDURE REASON: Invasive ductal carcinoma of breast, left (HCC) * * * * Physician Interpretation * * * * [place] [address] [place] [address] #[id number] - [employer] LT HISTORY: 68 year-old patient seen for diagnostic evaluation of the finding(s) described on prior mammogram in the left breast. The patient has the following personal history of breast cancer: breast cancer in the left breast. The patient has a family history of breast cancer. Sensitive Examination Consent Statement: Participation of a fellow, resident, medical student, or advanced practice provider student in performing the sensitive examination was discussed with the patient or authorized medical detail representative. The patient or authorized medical detail representative agreed to proceed with the sensitive examination. (Sensitive examinations include inspection and/or palpation of the breasts, pelvis, prostate, and anorectal regions.) COMPARISON STUDIES: The present examination has been compared to prior imaging studies dated 03/17/2023 (MRI), 03/25/2023 (ultrasound), 12/28/2023 (ultrasound), 06/15/2024 (mammogram) and 08/15/2024 (mammogram). ULTRASOUND TECHNIQUE: Targeted ultrasound of the indicated area was performed. Urias scale images were saved. ULTRASOUND FINDINGS: Finding 1: There is an irregular mass measuring 1.2 x 0.5 x 0.9 cm in the left breast at 9 o'clock, 5 cm from the nipple. This has decreased in conspicuity compared to the prior exam. Associated biopsy clip. Finding 2: There is a 1.0 cm lymph node in the left breast at 1 o'clock, 6 cm from the nipple. Internal echotexture is hypoechoic. This demonstrates diffuse cortical thickening. Associated biopsy clip. There are no significant interval changes. Finding 3: There is a lymph node in the left axilla, measuring approximately 1.4 cm. Associated biopsy clip. Diffuse mild cortical thickening. Internal echotexture is hypoechoic. Finding 4: There is a second lymph node in the left axilla, which has not been previously biopsied. This has substantially decreased in size, currently measuring approximately 3 mm, previously 7 mm. IMPRESSION IMPRESSION: Finding 1: The 1 cm irregular mass in the left breast at 9 o'clock, 5 cm from the nipple is a known malignancy. Clinical management of known malignancy is recommended. This has mildly decreased in size compared to prior. Finding 2: The lymph node in the left breast at 1 o'clock, 6 cm from the nipple is a known malignancy. Clinical management of known malignancy is recommended. Findings appear similar. Finding 3: The lymph node in the left axilla is a known malignancy. Clinical management of known malignancy is recommended. Findings appear similar. Finding 4: The additional lymph node in the left breast is suspicious for malignancy, although not previously biopsied. Finding has decreased in size compared to prior. BI-RADS Category 6: Known malignancy. RISK: Due to the reported patient's history, the patient's estimated lifetime risk of developing breast cancer cannot be assessed at this time. We encourage all patients to talk with their providers about their risk assessment, further recommendations for managing breast health, and appropriate supplemental screening options if the patient has dense breast tissue. Interpreting Radiologist: Janet Carrera M.D. Electronically signed on: 08/15/2024 Border Measurer: JUANJOSE Transcribe Date/Time: Aug 15 2024 11:38A Dictated by : JANET CARRERA MD This examination was interpreted and the report reviewed and electronically signed by: JANET CARRERA MD on Aug 15 2024 12:47PM EST [facility] US Breast - left limitedOrde red By: Ccf Provider on 08-15-2024 [facility] Pulmonary Visit Reporton Pulmonary Visit Report [facility] [place] [address] [place] [address] OFFICE VISIT Date of Service: 08/09/24 MR#: [id number] Acct: [id number] Name: DARLING FLOREZ Rep #: [id number] : 1955 Provider: IAN Scott Age/Sex: 68/F Location: [facility] Status: Signed Assessment and Plan Assessment and Plan (1) Asthma: Status: Chronic Qualifiers: Asthma severity: mild intermittent Asthma complication type: uncomplicated Qualified Code(s): J45.20 - Mild intermittent asthma, uncomplicated Plan: Stable, no signs of exacerbation of asthma today. No change in maintenance medications. No additional testing at this time. Contact the office with any signs of new or worsening symptoms. Follow-up in 6 months. Medications: Refilled montelukast (Singulair) 10 mg PO DAILY 90 tabs 3RF allergies Plan Details Additional Comments: This note was generated with [employer] dictation software. It may contain incorrect words, spelling, and punctuation that were not noted in checking the note before signing. Follow Up: 6 Months (CSM) HPI 6 M FU Chief Complaint: Routine follow-up HPI Comments Details: This patient presents to the office today for follow-up of her asthma. She is ambulatory and currently on room air. She has not recently been seen in the ED or urgent care for any respiratory illness. She has not required any antibiotics or prednisone for any breathing problems. She is compliant with use of Symbicort 2 puffs twice daily. She does report rinsing her mouth out after each use. She denies any medication side effect such as sore throat or thrush. She is also compliant with Singulair and Claritin daily. She is currently utilizing albuterol approximately 1-2 times per week. She is compliant with Flonase daily right now. If you recall, she is a former smoker. She quit smoking completely back in 1993. She reports some shortness of breath on exertion. She has a cough that is productive of clear- colored sputum. She has occasional wheezing but denies any chest tightness, chest pain or palpitations. She also denies any fever, chills or body aches. Intake Vital Signs 01/09/24 07:43 03/23/24 21:14 08/09/24 08:16 Height 5 ft 11 in 5 ft 10.87 in 5 ft 10.87 in Weight: 238 lb BMI 33.3 BP 107/74 Blood Pressure Location Lt brachial Position Sitting Respiration 16 Pulse 75 Pulse Source Monitor Temp 97.3 F L Temperature Source Temporal Artery Pulse Oximetry (%) 95 Oxygen Delivery Method room air Intake Visit Reasons: 6 M FU Mushroom Cultivator Required: No DME Vendor: None Accompanied by: Self Is patient in pain?: No Allergies apple Allergy (Verified 08/09/24 11:12) Hives banana Allergy (Verified 08/09/24 11:12) Hives carrot Allergy (Verified 08/09/24 11:12) Hives pineapple Allergy (Verified 08/09/24 11:12) Itching shellfish derived (lobster) Allergy (Verified 08/09/24 11:12) Anaphylaxis shrimp Allergy (Verified 08/09/24 11:12) Anaphylaxis amoxicillin Adverse Reaction (Verified 08/09/24 11:12) YEAST INFECTION Medications ???Medication ???Instructions ???Recorded ???Confirmed ???Type citalopram 40 mg tablet (Celexa) 40 mg PO DAILY mental health 11/0708/09/24 History gabapentin 600 mg tablet 600 mg PO QHS PRN nerve pain 11/0708/09/24 History gabapentin 100 mg capsule 100 mg PO DAILY PRN nerve pain 08/09/24 History albuterol sulfate 2.5 mg/3 mL 2.5 mg (3 mL) inhalation Q4H PRN 1 08/09/24 Rx (0.083 %) solution for nebulization Sob /Or Wheezing #180 mL fluticasone propionate 50 1 spray intranasal BID PRN 1 08/09/24 History mcg/actuation nasal Congestion spray,suspension cholecalciferol (vitamin D3) 125 125 mcg PO DAILY vitamin 06/02/21 08/09/24 History mcg (5,000 unit) capsule dicyclomine 20 mg tablet 20 mg PO TID PRN abdominal 3 08/09/24 Rx cramping #20 tabs hydrocodone-acetaminophe n 5-325mg 1 tab PO Q4H PRN PRN Pain 3 days 12/14/22 08/09/24 Rx 5mg-325mg #10 TABLETS anastrozole 1 mg tablet mg PO 04/28/23 08/09/24 History albuterol sulfate 90 mcg/actuation 2 puff inhalation Q4H PRN 08/09/24 Rx aerosol inhaler (Ventolin HFA) shortness of breath or wheezing #1 device amlodipine 2.5 mg tablet (Norvasc) 2.5 mg PO DAILY #90 tabs 4 08/09/24 Rx atorvastatin 40 mg tablet 40 mg PO QHS #90 tabs 11/23/2305/05 Rx azelastine 137 mcg (0.1 %) nasal 2 spray intranasal BID PRN 4 08/09/24 History spray hydrochlorothiazide 12.5 mg capsule 12.5 mg PO DAILY diuretic #90 c aps 11/23/23 08/09/24 Rx losartan 25 mg tablet 25 mg PO DAILY blood pressure #90 11/23/23 08/09/24 Rx tabs multivitamin (Daily Multi-Vitamin 1 tab PO DAILY 11/23/23 08/09/24 His (more content not included)... Normal [facility] Bacteria Ur Culton 5 Bacteria identified Cx Nom (U) CULTURE, URINE: No growth (<1,000 CFU/ml) Normal [facility] Comment on above: Performed By: #### 6 30-4 ####[facility] LABIA [id number] [place] [address] [place] CNOVon 08-03-2024 CNOV Normal [facility] HIGH RISK HUMAN PAPILLOMA HAL (HPV), PCR FOR DETECTION AND GENOTYPINGon 08-03-2024 HPV 16 Ag Ql (Unsp spec) Not detected Normal Not detected [facility] Comment on above: Order Comment: Speci men Type: FLUID SPECIMENOrdering Facility: [facility] Address: [address] [place] [address] Performed By: #### H PVHRT ####[facility] [id number] [address] [place] HPV 18 Ag Ql (Unsp spec) Not detected Normal Not detected [facility] Comment on above: Order Comment: Speci men Type: FLUID SPECIMENOrdering Facility: [facility] Address: [address] [place] [address] Performed By: #### H PVHRT ####[facility] [id number] [address] [place] HPV 31+33+35+39+45+51+52+ 56+58+59+66+68 DNA DOUGLAS+probe Ql (Cvx) Not detected Normal Not detected [facility] Comment on above: Order Comment: Speci men Type: FLUID SPECIMENOrdering Facility: [facility] Address: [address] [place] [address] Result Comment: High Risk HPV Other Type includes HPV types 31, 33, 35, 39, 45, 51, 52, 56, 58, 59, 66 and 68. Performed By: #### H PVHRT ####[facility] [id number] [place] [address] [place] PAP TESTon 08-03-2024 ADEQUACY Satisfactory for interpretation. Normal [facility] Comment on above: Order Comment: Speci men Type: FLUID SPECIMENOrdering Facility: [facility] Address: [address] [place] [address] Performed By: #### L [id number] ####[facility] LABCLIA [id number] [place] [address] [place] CASE REPORT Normal [facility] Comment on above: Order Comment: Speci men Type: FLUID SPECIMENOrdering Facility: [facility] Address: [address] [place] [address] Result Comment: Gyne cologic Cytology Report Case: [id number] Provider: Reina Burgess APRN.CNM Collected: 08/03/2024 10:31 AMOrdering Location: OB/Gynecology Received: 08/03/2024 11:56 AMFirst Screen: Lucrecia Mac, CT, ASCPPathologist: Jimmie Newman MDSpecimen: Pap Test, ThinPrep, Cervix Performed By: #### L [id number] ####[facility] LABCLIA [id number] [place] [address] [place] CLINICAL HISTORY, CYTOLOGY, ESCORT PATIENTS Post Menopausal Normal [facility] Comment on above: Order Comment: Speci men Type: FLUID SPECIMENOrdering Facility: [facility] Address: [address] [place] [address] Performed By: #### L [id number] ####[facility] LABCLIA [id number] [place] [address] [place] FINAL PERFORMING LAB Normal [facility] Comment on above: Order Comment: Speci men Type: FLUID SPECIMENOrdering Facility: [facility] Address: [address] [place] [address] Result Comment: Tech nical component, produce department manager screening performed at: [facility], [address] [place] [address] CLIA: [id number] interpretation performed at: [facility], [address] [place] [address] CLIA# [id number] Director: Rico Randle MD Performed By: #### L [id number] ####[facility] LABCLIA [id number] [address] [address] [place] INTERPRETATION, CYTOLOGY, ESCORT PATIENTS Normal [facility] Comment on above: Order Comment: Speci men Type: FLUID SPECIMENOrdering Facility: [facility] Address: [address] [place] [address] Result Comment: Nega tive for intraepithelial lesion or malignancy. at 1239 EDT Performed By: #### L [id number] ####[facility] LABCLIA [id number] [place] [address] [place] PAP DISCLAIMER COMMENT The Pap Smear is a screening test for cervical cancer. False negative results occur with all screening tests, emphasizing the need for rescreening at recommended intervals, and clinical correlation. Normal [facility] Comment on above: Order Comment: Speci men Type: FLUID SPECIMENOrdering Facility: [facility] Address: [address] [place] [address] Performed By: #### L [id number] ####[facility] LABCLIA [id number] [place] [id number] [place] PAP CASH APPLICATION CLERK COMMENT Normal [facility] Comment on above: Order Comment: Speci men Type: FLUID SPECIMENOrdering Facility: [facility] Address: [address] [place] [address] Performed By: #### L [id number] ####[facility] LABCLIA [id number] [place] [id number] [place] CA 27.29on 08-01-2024 Cancer Ag 27-29 Qn 39.5 [arb'U]/mL High <38.6 C [facility] Comment on above: Order Comment: Speci men Type: BLOOD SPECIMENOrdering Facility: [facility] Address: [address] [place] [address] Result Comment: The CA27.29 test was performed using the Siemens Centaur XP chemiluminometric immunoassay method. Results obtained with different assay methods or kits cannot be used interchangeably.[facility] will discontinue CA 27.29 testing effective 08/28/2024, with CA 15-3 as its replacement. In preparation for the discontinuation, CA 15-3 testing in parallel was conducted with CA 27.29 to establish a new baseline. Performed By: #### L [id number] ####[facility] LABCLIA [id number] [place] [address] [place] CBC W Auto Differential pane l (Bld)on 08-01-2024 Basophils (Bld) [#/Vol] 10*3/uL Normal <0.11 [facility] Comment on above: Order Comment: Speci men Type: BLOOD SPECIMENOrdering Facility: [facility] Address: [address] [place] [address] Performed By: #### 5 7021-8 ####[facility] [id number] [place] [address] [place] Basophils/100 WBC (Bld) 0.8 % Normal [facility] Comment on above: Order Comment: Speci men Type: BLOOD SPECIMENOrdering Facility: [facility] Address: [address] [place] [address] Performed By: #### 5 7021-8 ####[facility] [id number] [place] [address] [place] Differential cell count method Nom (Bld) Auto Normal [facility] Comment on above: Order Comment: Speci men Type: BLOOD SPECIMENOrdering Facility: [facility] Address: [address] [place] [address] Performed By: #### 5 7021-8 ####[facility]ENTERLIA [id number] [place] [address] [place] Eosinophils (Bld) [#/Vol] 10*3/uL Normal <0.46 [facility] Comment on above: Order Comment: Speci men Type: BLOOD SPECIMENOrdering Facility: [facility] Address: [address] [place] [address] Performed By: #### 5 7021-8 ####[facility] [id number] [place] [address] [place] Eosinophils/100 WBC (Bld) 0.8 % Normal [facility] Comment on above: Order Comment: Speci men Type: BLOOD SPECIMENOrdering Facility: [facility] Address: [address] [place] [address] Performed By: #### 5 7021-8 ####[facility] [id number] [place] [address] [place] Erythrocyte distribution width (RBC) [Ratio] 13.2 % Normal 11.5-15.0 [facility] Comment on above: Order Comment: Speci men Type: BLOOD SPECIMENOrdering Facility: [facility] Address: [address] [place] [address] Performed By: #### 5 7021-8 ####[facility] [id number] [place] [address] [place] Hematocrit (Bld) [Volume fraction] 32.8 % Low 36.0-46.0 [facility] Comment on above: Order Comment: Speci men Type: BLOOD SPECIMENOrdering Facility: [facility] Address: [address] [place] [address] Performed By: #### 5 7021-8 ####[facility]ITALNCLI [id number] [place] [address] [place] Hemoglobin (Bld) [Mass/Vol] 12.0 g/dL Normal 11.5-15.5 [facility] Comment on above: Order Comment: Speci men Type: BLOOD SPECIMENOrdering Facility: [facility] Address: [address] [place] [address] Performed By: #### 5 7021-8 ####[facility] MILLTOWNCLIA [id number] [place] [address] [place] Immature granulocytes (Bld) [#/Vol] 10*3/uL Normal <0.10 [facility] Comment on above: Order Comment: Speci men Type: BLOOD SPECIMENOrdering Facility: [facility] Address: [address] [place] [address] Performed By: #### 5 7021-8 ####[facility] MILLWNCLIA [id number] [place] [address] [place] Immature granulocytes/100 WBC (Bld) 0.0 % Normal [facility] Comment on above: Order Comment: Speci men Type: BLOOD SPECIMENOrdering Facility: [facility] Address: [address] [place] [address] Performed By: #### 5 7021-8 ####[facility]ITALNCLIA [id number] [place] [address] [place] Lymphocytes (Bld) [#/Vol] 1.70 10*3/uL Normal 1.00-4.00 [facility] Comment on above: Order Comment: Speci men Type: BLOOD SPECIMENOrdering Facility: [facility] Address: [address] [place] [address] Performed By: #### 5 7021-8 ####[facility] MILLTOWNCLIA [id number] [place] [address] [place] Lymphocytes/100 WBC (Bld) 71.4 % Normal [facility] Comment on above: Order Comment: Speci men Type: BLOOD SPECIMENOrdering Facility: [facility] Address: [address] [place] [address] Performed By: #### 5 7021-8 ####[facility] MILLTOWNCLIA [id number] [place] [address] [place] MCH (RBC) [Entitic mass] 37.3 pg High 26.0-34.0 [facility] Comment on above: Order Comment: Speci men Type: BLOOD SPECIMENOrdering Facility: [facility] Address: [address] [place] [address] Performed By: #### 5 7021-8 ####[facility]PITALSOHAILKathy [id number] [place] [address] [place] MCHC (RBC) [Mass/Vol] 36.6 g/dL High 30.5-36.0 [facility] Comment on above: Order Comment: Speci men Type: BLOOD SPECIMENOrdering Facility: [facility] Address: [address] [place] [address] Performed By: #### 5 7021-8 ####[facility] [id number] [place] [address] [place] MCV (RBC) [Entitic vol] 101.9 fL High 80.0-100.0 [facility] Comment on above: Order Comment: Speci men Type: BLOOD SPECIMENOrdering Facility: [facility] Address: [address] [place] [address] Performed By: #### 5 7021-8 ####[facility]PITALSOHAILKathy [id number] [place] [address] [place] Monocytes (Bld) [#/Vol] 0.24 10*3/uL Normal <0.87 [facility] Comment on above: Order Comment: Speci men Type: BLOOD SPECIMENOrdering Facility: [facility] Address: [address] [place] [address] Performed By: #### 5 7021-8 ####[facility]ITALNCLI [id number] [place] [address] [place] Monocytes/100 WBC (Bld) 10.1 % Normal [facility] Comment on above: Order Comment: Speci men Type: BLOOD SPECIMENOrdering Facility: [facility] Address: [address] [place] [address] Performed By: #### 5 7021-8 ####[facility]ITALNCLIA [id number] [place] [address] [place] Neutrophils (Bld) [#/Vol] 0.40 10*3/uL Low 1.45-7.50 [facility] Comment on above: Order Comment: Speci men Type: BLOOD SPECIMENOrdering Facility: [facility] Address: [address] [place] [address] Performed By: #### 5 7021-8 ####[facility] [id number] [place] [address] [place] Neutrophils/100 WBC (Bld) 16.9 % Normal [facility] Comment on above: Order Comment: Speci men Type: BLOOD SPECIMENOrdering Facility: [facility] Address: [address] [place] [address] Performed By: #### 5 7021-8 ####[facility]ENTERA [id number] [place] [address] [place] Nucleated RBC (Bld) [#/Vol] 10*3/uL Normal <0.01 [facility] Comment on above: Order Comment: Speci men Type: BLOOD SPECIMENOrdering Facility: [facility] Address: [address] [place] [address] Performed By: #### 5 7021-8 ####[facility]ENTERA [id number] [place] [address] [place] Nucleated RBC/100 WBC (Bld) [Ratio] 0.0 /100 WBC Normal [facility] Comment on above: Order Comment: Speci men Type: BLOOD SPECIMENOrdering Facility: [facility] Address: [address] [place] [address] Performed By: #### 5 7021-8 ####[facility]ITALWNCLIA [id number] [place] [address] [place] Platelet mean volume (Bld) [Entitic vol] 10.2 fL Normal 9.0-12.7 [facility] Comment on above: Order Comment: Speci men Type: BLOOD SPECIMENOrdering Facility: [facility] Address: [address] [place] [address] Performed By: #### 5 7021-8 ####[facility]ITALNCLIA [id number] [place] [address] [place] Platelets (Bld) [#/Vol] 90 10*3/uL Low 150-400 [facility] Comment on above: Order Comment: Speci men Type: BLOOD SPECIMENOrdering Facility: [facility] Address: [address] [place] [address] Result Comment: No c lot detected. Performed By: #### 5 7021-8 ####[facility] HOSPITALNCA [id number] [place] [address] [place] RBC (Bld) [#/Vol] 3.22 10*6/uL Low 3.90-5.20 [facility] Comment on above: Order Comment: Speci men Type: BLOOD SPECIMENOrdering Facility: [facility] Address: [address] [place], [place] [address] Performed By: #### 5 7021-8 ####[facility]ITALNCLIA [id number] [place] [address] [place] WBC (Bld) [#/Vol] 2.38 10*3/uL Low 3.70-11.00 [facility] Comment on above: Order Comment: Speci men Type: BLOOD SPECIMENOrdering Facility: [facility] Address: [address] [place] [address] Performed By: #### 5 7021-8 ####[facility] MILLTOWNCLIA [id number] [place] [address] [place] CNOVSPon 08-01-2024 CNOVSP Normal [facility] Cancer Ag15-3 SerPl-aCncon 0 08-01-2024 Cancer Ag 15-3 Qn 27.9 U/mL High <26.0 [facility] Comment on above: Order Comment: Speci men Type: BLOOD SPECIMENOrdering Facility: [facility] Address: [address] [place] [address] Result Comment: The CA 15-3 test methodology used is the Electrochemiluminescence Immunoassay by [employer]. Results obtained with different methods or kits cannot be used interchangeably.[facility] will discontinue CA 27.29 testing effective 08/28/2024, with CA 15-3 as its replacement. In preparation for the discontinuation, CA 15-3 testing in parallel was conducted with CA 27.29 to establish a new baseline. Performed By: #### 6 875-9 ####[facility] LABCLIA [id number] [place] [address] [place] Comprehensive metabolic 2000 panelon 08-01-2024 Albumin [Mass/Vol] 4.2 g/dL Normal 3.9-4.9 [facility] Comment on above: Order Comment: Speci men Type: BLOOD SPECIMENOrdering Facility: [facility] Address: [address] [place] [address] Performed By: #### 2 4323-8 ####[facility]ITALNCLIA [id number] [place] [address] [place] ALP [Catalytic activity/Vol] 45 U/L Normal 34-123 [facility] Comment on above: Order Comment: Speci men Type: BLOOD SPECIMENOrdering Facility: [facility] Address: [address] [place] [address] Performed By: #### 2 4323-8 ####[facility]ITALNCLIA [id number] [place] [address] [place] ALT [Catalytic activity/Vol] 28 U/L Normal 7-38 [facility] Comment on above: Order Comment: Speci men Type: BLOOD SPECIMENOrdering Facility: [facility] Address: [address] [place] [address] Performed By: #### 2 4323-8 ####[facility] MILLTOWNCLIA [id number] [place] [address] [place] Anion gap [Moles/Vol] 7 mmol/L Low 8-15 [facility] Comment on above: Order Comment: Speci men Type: BLOOD SPECIMENOrdering Facility: [facility] Address: [address] [place] [address] Performed By: #### 2 4323-8 ####[facility]PITALWNCLIA [id number] [place] [address] [place] AST [Catalytic activity/Vol] 30 U/L Normal 13-35 [facility] Comment on above: Order Comment: Speci men Type: BLOOD SPECIMENOrdering Facility: [facility] Address: [address] [place] [address] Performed By: #### 2 4323-8 ####[facility]PITALWNCLIA [id number] [place] [address] [place] Bilirubin [Mass/Vol] 0.5 mg/dL Normal 0.2-1.3 [facility] Comment on above: Order Comment: Speci men Type: BLOOD SPECIMENOrdering Facility: [facility] Address: [address] [place] [address] Performed By: #### 2 4323-8 ####[facility] MILLWNCLIA [id number] [place] [address] [place] Calcium [Mass/Vol] 9.1 mg/dL Normal 8.5-10.2 [facility] Comment on above: Order Comment: Speci men Type: BLOOD SPECIMENOrdering Facility: [facility] Address: [address] [place] [address] Performed By: #### 2 4323-8 ####[facility]ITALNCLIA [id number] [place] [address] [place] Chloride [Moles/Vol] 104 mmol/L Normal 98-107 [facility] Comment on above: Order Comment: Speci men Type: BLOOD SPECIMENOrdering Facility: [facility] Address: [address] [place] [address] Performed By: #### 2 4323-8 ####[facility]OSPITALNCA [id number] [place] [address] [place] CO2 [Moles/Vol] 27 mmol/L Normal 22-30 [facility] Comment on above: Order Comment: Speci men Type: BLOOD SPECIMENOrdering Facility: [facility] Address: [address] [place] [address] Performed By: #### 2 4323-8 ####[facility]ENTERA [id number] [place] [address] [place] Creatinine [Mass/Vol] 0.81 mg/dL Normal 0.58-0.96 [facility] Comment on above: Order Comment: Speci men Type: BLOOD SPECIMENOrdering Facility: [facility] Address: [address] [place] [address] Performed By: #### 2 4323-8 ####[facility]ITALNCLIA [id number] [place] [address] [place] [facility] Creatinine and Glomerular filtration rate.predicted panel (S/P/Bld) 80 mL/min/1.73m??? Normal >=60 [facility] Comment on above: Order Comment: Speci men Type: BLOOD SPECIMENOrdering Facility: [facility] Address: [address] [place] [address] Result Comment: Emili mated Glomerular Filtration Rate (eGFR) is calculated using the 2020 CKD-EPI creatinine equation. This equation utilizes serum creatinine, sex, and age as parameters. The creatinine assay has traceable calibration to isotope dilution-mass spectrometry. Refer to KDIGO guidelines for clinical interpretation. In patients with unstable renal function, e.g. those with acute kidney injury, the eGFR may not accurately reflect actual GFR. Performed By: #### 2 4323-8 ####[facility]PITALSOHAILKathy [id number] [place] [address] [place] Glucose [Mass/Vol] 111 mg/dL High 74-99 [facility] Comment on above: Order Comment: Lukasz hargrove Type: BLOOD SPECIMENOrdering Facility: [facility] Address: [address] [place] [address] Result Comment: The [place] Diabetes Association (ADA) provides guidance for cutoff values for fasting glucose and random glucose. The ADA defines fasting as no caloric intake for at least 8 hours. Fasting plasma glucose results between 100 to 125 mg/dL indicate increased risk for diabetes (prediabetes).Fasting plasma glucose results greater than or equal to 126 mg/dL meet the criteria for diagnosis of diabetes. In the absence of unequivocal hyperglycemia, results should be confirmed by repeat testing. In a patient with classic symptoms of hyperglycemia or hyperglycemic crisis, random plasma glucose results greater than or equal to 200 mg/dL meet the criteria for diagnosis of diabetes.Reference: Standards of Medical Care in Diabetes 2016, [place] [employer] Association. Diabetes Care. 2016.39(Suppl 1). Performed By: #### 2 4323-8 ####[facility]ENTERA [id number] [place] [address] [place] Potassium [Moles/Vol] 3.3 mmol/L Low 3.7-5.1 [facility] Comment on above: Order Comment: Lukasz hargrove Type: BLOOD SPECIMENOrdering Facility: [facility] Address: [address] [place] [address] Performed By: #### 2 4323-8 ####[facility]PITALSOHAILLIKathy [id number] [place] [address] [place] Protein [Mass/Vol] 6.7 g/dL Normal 6.3-8.0 [facility] Comment on above: Order Comment: Speci men Type: BLOOD SPECIMENOrdering Facility: [facility] Address: [address] [place] [address] Performed By: #### 2 4323-8 ####[facility]A [id number] [place] [address] [place] Sodium [Moles/Vol] 138 mmol/L Normal 136-144 [facility] Comment on above: Order Comment: Speci men Type: BLOOD SPECIMENOrdering Facility: [facility] Address: [address] [place] [address] Performed By: #### 2 4323-8 ####[facility] [id number] [place] [address] [place] Urea nitrogen [Mass/Vol] 11 mg/dL Normal 7-21 [facility] Comment on above: Order Comment: Speci men Type: BLOOD SPECIMENOrdering Facility: [facility] Address: [address] [place] [address] Performed By: #### 2 4323-8 ####[facility]ENTERLI [id number] [place] [address] [place] CNPNon 07-12-2024 CNPN Normal [facility] CNOVon 07-05-2024 CNOV Normal [facility] COVID & INFLUENZA A/B & RSV PCR, ROUTINEOrdered By: Manpreet Black on 07-05-2024 FLUAV RNA DOUGLAS+probe Ql (Unsp spec) Not detected Not Detected [facility] FLUBV RNA DOUGLAS+probe Ql (Unsp spec) Not detected Not Detected [facility] Interpretation and review of laboratory results Abnormal [facility] RSV A RNA DOUGLAS+probe Ql (Unsp spec) Detected Abnormal Not Detected [facility] SARS-CoV-2 (COVID-19) RNA DOUGLAS+probe Ql (Unsp spec) Not detected See comment [facility] Reference Range (the expected result in uninfected individuals): Not detected [facility] STREP A MOLECULAR (POC)on Procedural Control Valid [facility] Strep A (POCT) Negative Negative [facility] CNOVon 07-03-2024 CNOV Normal [facility] CNPNon 06-27-2024 CNPN Normal [facility] CNPNon 06-19-2024 CNPN Normal [facility] CNCOon 06-18-2024 CNCO Letter Text Normal [facility] Esophagus Dual Contraston Esophagus Dual Contrast [facility] [address] [place] [address] Esophagus Dual Contrast MR#: [id number] Acct: [id number] Name: DARLING FLOREZ Rep #: [id number] : [id number] F 68 From: Gal suárez MD PCP: Dr. Ilya Monroe MD Status: REG CLI Study: Esophagus Dual Contrast Date of Exam: 06/18/24 Exam# [id number] Ordering Dr: Rashid Espinoza MD PROCEDURE: ESOPHAGUS DUAL CONTRAST REASON FOR EXAM: Worsening gastroesophageal reflux. TECHNIQUE: The patient ingested barium. Multiple fluoroscopic images of the esophagus were obtained. COMPARISON: None. FINDINGS: The esophagus is unremarkable. No evidence of mass lesion. No evidence of obstruction. No evidence of gastroesophageal reflux. The patient ingested a 12 mm tablet of barium without any difficulty. RAD/Esophagus Dual Contrast IMPRESSION: Unremarkable examination. Reading Location: [facility] CC: Dr. Ilya Monroe MD; Dr. Rashid Espinoza MD Border Measurer: Signed Normal [facility] TERESE SCREENING W TOMOon 06-15 TERESE SCREENING W RAFY Normal [facility] CNOVon 06-12-2024 CNOV Normal [facility] CNOVon 06-04-2024 CNOV Normal [facility] Bacteria Ur Culton Bacteria identified Cx Nom (U) Abnormal [facility] Comment on above: Performed By: #### 6 30-4 ####[facility] LABCLIA [id number] [place] [address] [place] CNOVon 05-23-2024 CNOV Normal [facility] UA DIP, URINE (POC)on 2024 BILIRUBIN UA (POCT) Negative Negative [facility] CLARITY UA (POCT) Clear [facility] COLOR UA (POCT) Yellow [facility] GLUCOSE UA (POCT) Negative Negative mg/dL [facility] Hemoglobin Ql (U) Trace-intact Abnormal Negative [facility] Interpretation and review of laboratory results Abnormal [facility] KETONE UA (POCT) Negative Negative mg/dL [facility] LEUKOCYTES UA (POCT) Trace Abnormal Negative [facility] NITRITE UA (POCT) Negative Negative [facility] PH UA (POCT) 6.5 4.5 - 8.0 [facility] Protein Ql (U) 30 mg/dL Abnormal Negative [facility] SPECIFIC GRAVITY UA (POCT) 1.025 1.005 - 1.030 [facility] UROBILINOGEN UA (POCT) 0.2 Normal E.U./dL [facility] Location:[address], [address] [place] [address] POINT OF CARE [facility] Bacteria Ur Culton 5 Bacteria identified Cx Nom (U) ORGANISM ID: 1 <10,000 CFU/ml Mixed microbiota No further workup Normal [facility] Comment on above: Performed By: #### 6 30-4 ####[facility] LABCLIA [id number] [place] [address] [place] CNPNon 05-20-2024 CNPN Normal [facility] BACTERIAL VAGINOSIS NAATon 0 05-19-2024 Lactobacillus crispatus+gasseri+asuncion senii + Gardnerella vaginalis + Atopobium vaginae rRNA DOUGLAS+probe Ql (Vag fld) Not detected Normal Not detected [facility] Comment on above: Order Comment: Speci men Type: SWABOrdering Facility: [facility] Address: [address] [place] [address] [place] [address] Performed By: #### C VTV, BVAMP ####[facility] LABCLIA [id number] [place] [address] [place] LARRY/TRICHOMONAS NAATon 0 05-19-2024 C. glabrata RNA DOUGLAS+probe Ql (Vag fld) Not detected Normal Not detected [facility] Comment on above: Order Comment: Speci men Type: SWABOrdering Facility: [facility] Address: [address] [place] [address] Performed By: #### C VTV, BVAMP ####[facility] LABCLIA [id number] [place] [address] [place] Larry sp DNA DOUGLAS+probe Ql (Vag fld) Not detected Normal Not detected [facility] Comment on above: Order Comment: Speci men Type: SWABOrdering Facility: [facility] Address: [address] [place] [address] Result Comment: The Larry species group target includes C. albicans, C. tropicalis, C. parapsilosis, and C. dubliniensis. Performed By: #### C VTV, BVAMP ####[facility] LABCLIA [id number] [place] [address] [place] T. vaginalis DNA DOUGLAS+probe Ql (Unsp spec) Not detected Normal Not detected [facility] Comment on above: Order Comment: Speci men Type: SWABOrdering Facility: [facility] Address: [address] [place] [address] Performed By: #### C VTV, BVAMP ####[facility] LABCLIA [id number] [place] [address] [place] CNOVon 05-19-2024 CNOV Normal [facility] UA DIP, URINE (POC)on 2024 BILIRUBIN UA (POCT) Negative Negative [facility] CLARITY UA (POCT) Clear [facility] COLOR UA (POCT) Yellow [facility] GLUCOSE UA (POCT) Negative Negative mg/dL [facility] Hemoglobin Ql (U) Trace-intact Abnormal Negative [facility] Interpretation and review of laboratory results Abnormal [facility] KETONE UA (POCT) Negative Negative mg/dL [facility] LEUKOCYTES UA (POCT) Negative Negative [facility] NITRITE UA (POCT) Negative Negative [facility] PH UA (POCT) 5.5 4.5 - 8.0 [facility] Protein Ql (U) 30 mg/dL Abnormal Negative [facility] SPECIFIC GRAVITY UA (POCT) 1.025 1.005 - 1.030 [facility] UROBILINOGEN UA (POCT) 0.2 Normal E.U./dL [facility] Location:[address], [place], [place], [address] [place] [address] POINT OF CARE [facility] CBC W Auto Differential pane l (Bld)on 05-09-2024 Basophils (Bld) [#/Vol] 0.03 10*3/uL Normal <0.11 [facility] Comment on above: Order Comment: Speci men Type: BLOOD SPECIMENOrdering Facility: [facility] Address: [address] [place] [address] Performed By: #### 5 7021-8 ####[facility] [id number] [place] [address] [place] Basophils/100 WBC (Bld) 1.1 % Normal [facility] Comment on above: Order Comment: Speci men Type: BLOOD SPECIMENOrdering Facility: [facility] Address: [address] [place] [address] Performed By: #### 5 7021-8 ####[facility] [id number] [place] [address] [place] Differential cell count method Nom (Bld) Auto Normal [facility] Comment on above: Order Comment: Speci men Type: BLOOD SPECIMENOrdering Facility: [facility] Address: [address] [place] [address] Performed By: #### 5 7021-8 ####[facility] [id number] [place] [address] [place] Eosinophils (Bld) [#/Vol] 10*3/uL Normal <0.46 [facility] Comment on above: Order Comment: Speci men Type: BLOOD SPECIMENOrdering Facility: [facility] Address: [address] [place] [address] Performed By: #### 5 7021-8 ####[facility]ENTERLIA [id number] [place] [address] [place] Eosinophils/100 WBC (Bld) 0.7 % Normal [facility] Comment on above: Order Comment: Speci men Type: BLOOD SPECIMENOrdering Facility: [facility] Address: [address] [place] [address] Performed By: #### 5 7021-8 ####[facility]ITAL[facility] [id number] [place] [address] [place] Erythrocyte distribution width (RBC) [Ratio] 13.9 % Normal 11.5-15.0 [facility] Comment on above: Order Comment: Speci men Type: BLOOD SPECIMENOrdering Facility: [facility] Address: [address] [place] [address] Performed By: #### 5 7021-8 ####[facility] [id number] [place] [address] [place] Hematocrit (Bld) [Volume fraction] 34.6 % Low 36.0-46.0 [facility] Comment on above: Order Comment: Speci men Type: BLOOD SPECIMENOrdering Facility: [facility] Address: [address] [place] [address] Performed By: #### 5 7021-8 ####[facility]ITALNCLI [id number] [place] [address] [place] Hemoglobin (Bld) [Mass/Vol] 12.2 g/dL Normal 11.5-15.5 [facility] Comment on above: Order Comment: Speci men Type: BLOOD SPECIMENOrdering Facility: [facility] Address: [address] [place] [address] Performed By: #### 5 7021-8 ####[facility]ENTERLIA [id number] [place] [address] [place] Immature granulocytes (Bld) [#/Vol] 10*3/uL Normal <0.10 [facility] Comment on above: Order Comment: Speci men Type: BLOOD SPECIMENOrdering Facility: [facility] Address: [address] [place] [address] Performed By: #### 5 7021-8 ####[facility] [id number] [place] [address] [place] Immature granulocytes/100 WBC (Bld) 0.0 % Normal [facility] Comment on above: Order Comment: Speci men Type: BLOOD SPECIMENOrdering Facility: [facility] Address: [address] [place] [address] Performed By: #### 5 7021-8 ####[facility] [id number] [place] [address] [place] Lymphocytes (Bld) [#/Vol] 1.71 10*3/uL Normal 1.00-4.00 [facility] Comment on above: Order Comment: Speci men Type: BLOOD SPECIMENOrdering Facility: [facility] Address: [address] [place] [address] Performed By: #### 5 7021-8 ####[facility] [id number] [place] [address] [place] Lymphocytes/100 WBC (Bld) 62.6 % Normal [facility] Comment on above: Order Comment: Speci men Type: BLOOD SPECIMENOrdering Facility: [facility] Address: [address] [place] [address] Performed By: #### 5 7021-8 ####[facility]ENTERLIA [id number] [place] [address] [place] MCH (RBC) [Entitic mass] 36.2 pg High 26.0-34.0 [facility] Comment on above: Order Comment: Speci men Type: BLOOD SPECIMENOrdering Facility: [facility] Address: [address] [place] [address] Performed By: #### 5 7021-8 ####[facility] [id number] [place] [address] [place] MCHC (RBC) [Mass/Vol] 35.3 g/dL Normal 30.5-36.0 [facility] Comment on above: Order Comment: Speci men Type: BLOOD SPECIMENOrdering Facility: [facility] Address: [address] [place] [address] Performed By: #### 5 7021-8 ####[facility] [id number] [place] [address] [place] MCV (RBC) [Entitic vol] 102.7 fL High 80.0-100.0 [facility] Comment on above: Order Comment: Speci men Type: BLOOD SPECIMENOrdering Facility: [facility] Address: [address] [place] [address] Performed By: #### 5 7021-8 ####[facility] [id number] [place] [address] [place] Monocytes (Bld) [#/Vol] 0.30 10*3/uL Normal <0.87 [facility] Comment on above: Order Comment: Speci men Type: BLOOD SPECIMENOrdering Facility: [facility] Address: [address] [place] [address] Performed By: #### 5 7021-8 ####[facility] [id number] [place] [address] [place] Monocytes/100 WBC (Bld) 11.0 % Normal [facility] Comment on above: Order Comment: Speci men Type: BLOOD SPECIMENOrdering Facility: [facility] Address: [address] [place] [address] Performed By: #### 5 7021-8 ####[facility] [id number] [place] [address] [place] Neutrophils (Bld) [#/Vol] 0.67 10*3/uL Low 1.45-7.50 [facility] Comment on above: Order Comment: Speci men Type: BLOOD SPECIMENOrdering Facility: [facility] Address: [address] [place] [address] Performed By: #### 5 7021-8 ####[facility]ITALNCT[facility] [id number] [place] [address] [place] Neutrophils/100 WBC (Bld) 24.6 % Normal [facility] Comment on above: Order Comment: Speci men Type: BLOOD SPECIMENOrdering Facility: [facility] Address: [address] [place] [address] Performed By: #### 5 7021-8 ####[facility]ITALNCLI [id number] [place] [address] [place] Nucleated RBC (Bld) [#/Vol] 10*3/uL Normal <0.01 [facility] Comment on above: Order Comment: Speci men Type: BLOOD SPECIMENOrdering Facility: [facility] Address: [address] [place] [address] Performed By: #### 5 7021-8 ####[facility]ITALNCLIA [id number] [place] [address] [place] Nucleated RBC/100 WBC (Bld) [Ratio] 0.0 /100 WBC Normal [facility] Comment on above: Order Comment: Speci men Type: BLOOD SPECIMENOrdering Facility: [facility] Address: [address] [place] [address] Performed By: #### 5 7021-8 ####[facility] BIENVENIDOTOWNCLIA [id number] [place] [address] [place] Platelet mean volume (Bld) [Entitic vol] 9.1 fL Normal 9.0-12.7 [facility] Comment on above: Order Comment: Speci men Type: BLOOD SPECIMENOrdering Facility: [facility] Address: [address] [place] [address] Performed By: #### 5 7021-8 ####[facility] BIENVENIDOSAVANNAHNCLIA [id number] [place] [address] [place] Platelets (Bld) [#/Vol] 89 10*3/uL Low 150-400 [facility] Comment on above: Order Comment: Speci men Type: BLOOD SPECIMENOrdering Facility: [facility] Address: [address] [place] [address] Result Comment: No c lot detected. Performed By: #### 5 7021-8 ####[facility]ITALNCLIA [id number] [place] [address] [place] RBC (Bld) [#/Vol] 3.37 10*6/uL Low 3.90-5.20 [facility] Comment on above: Order Comment: Speci men Type: BLOOD SPECIMENOrdering Facility: [facility] Address: [address] [place] [address] Performed By: #### 5 7021-8 ####[facility]ITALNCLIA [id number] [place] [address] [place] WBC (Bld) [#/Vol] 2.73 10*3/uL Low 3.70-11.00 [facility] Comment on above: Order Comment: Speci men Type: BLOOD SPECIMENOrdering Facility: [facility] Address: [address] [place], [place] [address] Performed By: #### 5 7021-8 ####[facility]ENTERLIA [id number] [place] [address] [place] CNOVSPon 05-09-2024 CNOVSP Normal [facility] Comprehensive metabolic 2000 panelon 05-09-2024 Albumin [Mass/Vol] 4.5 g/dL Normal 3.9-4.9 [facility] Comment on above: Order Comment: Speci men Type: BLOOD SPECIMENOrdering Facility: [facility] Address: [address] [place] [address] Performed By: #### 2 4323-8 ####[facility]A [id number] [place] [address] [place] ALP [Catalytic activity/Vol] 53 U/L Normal 34-123 [facility] Comment on above: Order Comment: Speci men Type: BLOOD SPECIMENOrdering Facility: [facility] Address: [address] [place] [address] Performed By: #### 2 4323-8 ####[facility] CENTERLIA [id number] [place] [address] [place] ALT [Catalytic activity/Vol] 25 U/L Normal 7-38 [facility] Comment on above: Order Comment: Speci men Type: BLOOD SPECIMENOrdering Facility: [facility] Address: [address] [place] [address] Performed By: #### 2 4323-8 ####[facility]ENTERA [id number] [place] [address] [place] Anion gap [Moles/Vol] 8 mmol/L Normal 8-15 [facility] Comment on above: Order Comment: Speci men Type: BLOOD SPECIMENOrdering Facility: [facility] Address: [address] [place] [address] Performed By: #### 2 4323-8 ####[facility] [place] MILLTOWNCLIA [id number] [place] [address] [place] AST [Catalytic activity/Vol] 26 U/L Normal 13-35 [facility] Comment on above: Order Comment: Speci men Type: BLOOD SPECIMENOrdering Facility: [facility] Address: [address] [place] [address] Performed By: #### 2 4323-8 ####[facility]PITALWNCLIA [id number] [place] [address] [place] Bilirubin [Mass/Vol] 0.4 mg/dL Normal 0.2-1.3 [facility] Comment on above: Order Comment: Speci men Type: BLOOD SPECIMENOrdering Facility: [facility] Address: [address] [place] [address] Performed By: #### 2 4323-8 ####[facility]ITALNCLIA [id number] [place] [address] [place] Calcium [Mass/Vol] 9.6 mg/dL Normal 8.5-10.2 [facility] Comment on above: Order Comment: Speci men Type: BLOOD SPECIMENOrdering Facility: [facility] Address: [address] [place] [address] Performed By: #### 2 4323-8 ####[facility]OSPITALWNCLIA [id number] [place] [address] [place] Chloride [Moles/Vol] 105 mmol/L Normal 98-107 [facility] Comment on above: Order Comment: Speci men Type: BLOOD SPECIMENOrdering Facility: [facility] Address: [address] [place], [place] [address] Performed By: #### 2 4323-8 ####[facility]OSPITALWNCLIA [id number] [place] [address] [place] CO2 [Moles/Vol] 26 mmol/L Normal 22-30 [facility] Comment on above: Order Comment: Speci men Type: BLOOD SPECIMENOrdering Facility: [facility] Address: [address] [place] [address] Performed By: #### 2 4323-8 ####[facility]OSPITALWNCLI [id number] [place] [address] [place] Creatinine [Mass/Vol] 0.79 mg/dL Normal 0.58-0.96 [facility] Comment on above: Order Comment: Speci men Type: BLOOD SPECIMENOrdering Facility: [facility] Address: [address] [place] [address] Performed By: #### 2 4323-8 ####[facility]ITALNCLIA [id number] [place] [address] [place] Creatinine and Glomerular filtration rate.predicted panel (S/P/Bld) 82 mL/min/1.73m??? Normal >=60 [facility] Comment on above: Order Comment: Speci men Type: BLOOD SPECIMENOrdering Facility: [facility] Address: [address] [place] [address] Result Comment: Emili mated Glomerular Filtration Rate (eGFR) is calculated using the 2020 CKD-EPI creatinine equation. This equation utilizes serum creatinine, sex, and age as parameters. The creatinine assay has traceable calibration to isotope dilution-mass spectrometry. Refer to KDIGO guidelines for clinical interpretation. In patients with unstable renal function, e.g. those with acute kidney injury, the eGFR may not accurately reflect actual GFR. Performed By: #### 2 4323-8 ####[facility]ITALNCLIA [id number] [place] [address] [place] Glucose [Mass/Vol] 113 mg/dL High 74-99 [facility] Comment on above: Order Comment: Gilliani men Type: BLOOD SPECIMENOrdering Facility: [facility] Address: [address] [place] [address] Result Comment: The [place] Diabetes Association (ADA) provides guidance for cutoff values for fasting glucose and random glucose. The ADA defines fasting as no caloric intake for at least 8 hours. Fasting plasma glucose results between 100 to 125 mg/dL indicate increased risk for diabetes (prediabetes).Fasting plasma glucose results greater than or equal to 126 mg/dL meet the criteria for diagnosis of diabetes. In the absence of unequivocal hyperglycemia, results should be confirmed by repeat testing. In a patient with classic symptoms of hyperglycemia or hyperglycemic crisis, random plasma glucose results greater than or equal to 200 mg/dL meet the criteria for diagnosis of diabetes.Reference: Standards of Medical Care in Diabetes 2016, [place] [employer] Association. Diabetes Care. 2016.39(Suppl 1). Performed By: #### 2 4323-8 ####[facility] HOSPITALJESUS [id number] [place] [address] [place] Potassium [Moles/Vol] 3.8 mmol/L Normal 3.7-5.1 [facility] Comment on above: Order Comment: Speci men Type: BLOOD SPECIMENOrdering Facility: [facility] Address: [address] [id number] Performed By: #### 2 4323-8 ####[facility] CENTERJIMENEZ [id number] [place] [address] [place] Protein [Mass/Vol] 6.9 g/dL Normal 6.3-8.0 [facility] Comment on above: Order Comment: Speci men Type: BLOOD SPECIMENOrdering Facility: [facility] Address: [address] [id number] Performed By: #### 2 4323-8 ####[facility] CENTERKathy [id number] [place] [address] [place] Sodium [Moles/Vol] 139 mmol/L Normal 136-144 [facility] Comment on above: Order Comment: Speci men Type: BLOOD SPECIMENOrdering Facility: [facility] Address: [address] [id number] Performed By: #### 2 4323-8 ####[facility] MILLTOWNCLIA [id number] [place] [address] [place] Urea nitrogen [Mass/Vol] 11 mg/dL Normal 7-21 [facility] Comment on above: Order Comment: Speci men Type: BLOOD SPECIMENOrdering Facility: [facility] Address: [facility] [place] [address] Performed By: #### 2 4323-8 ####[facility] MILLTOWNCLIA [id number] [place] [address] [place] CNPNon 05-08-2024 CNPN Normal [facility] CNPNon 05-04-2024 CNPN Normal [facility] CNPTOUTREACHon 05-03-2024 CNPTOUTREACH Normal [facility] CBC W/Diff, Automatedon 03-11 PATH REV Reviewed Normal [facility] Comment on above: Result Comment: Leuk openia and neutropenia.Macrocytic anemia. Clinical correlation necessary. Flo Gavin M.D. 03/27/24 AMENDED REPORT 03/27/24 1512 PATH REV previously reported as: August Performed By: #### L 100.0100, L500.2500 ####[facility] [id number] [facility] [address] Absolute neutrophil countOrd ered By: Corona Agee on 03-23-2024 Neutrophils (Bld) [#/Vol] 1.5 10*3/uL Low 2.0-7.7 [facility] Atypical lymphocyte percenta geOrdered By: Corona Agee on 03-23-2024 Atypical Lymphocytes 2+ % [facility] Basic Metabolic Profile (BMP )on 03-23-2024 BUN/CRE 9.7 RATIO Low 10-20 [facility] Comment on above: Performed By: #### L 100.0100, L500.2500 #### [facility] [address] [place], [address] CA,Total 8.6 mg/dL Normal 8.5-10.1 [facility] Comment on above: Performed By: #### L 100.0100, L500.2500 #### [facility] [address] [place], [address] Chloride [Moles/Vol] 103 mmol/L Normal 98-107 [facility] Comment on above: Performed By: #### L 100.0100, L500.2500 #### [facility] [address] [place], [address] CO2 [Moles/Vol] 28.0 mmol/L Normal 21.0-32.0 [facility] Comment on above: Performed By: #### L 100.0100, L500.2500 #### [facility] [address] [place], [address] Creatinine [Mass/Vol] 1.03 mg/dL High 0.55-1.02 [place] Comment on above: Result Comment: The validity of the calculated GFR GFRAA in patients over 70 years has not been determined. Clinical correlation is essential. Performed By: #### L 100.0100, L500.2500 #### [facility] [address] [place], [address] ECRCL 70.52 ml/min Normal [facility] Comment on above: Performed By: #### L 100.0100, L500.2500 #### [facility] [address] [place], [address] EST GFR - AA 69 mL/min Normal >60 [facility] Comment on above: Result Comment: Afri can [place]ian GFR Calc Performed By: #### L 100.0100, L500.2500 #### [facility] [address] [place], [address] GAP 8 Normal 5-15 [facility] Comment on above: Performed By: #### L 100.0100, L500.2500 #### [facility] [address] [place], [address] GFR/1.73 sq M.predicted among non-blacks MDRD (S/P/Bld) [Vol rate/Area] 57 mL/min/{1.73_m2} Low >60 [facility] Comment on above: Result Comment: Non- GFR Calc Performed By: #### L 100.0100, L500.2500 #### [facility] [address] [place], [address] Glucose [Mass/Vol] 221 mg/dL High 74-106 [facility] Comment on above: Result Comment: Gluc ose result greater than or equal to 200 mg/dL suggests DIABETES MELLITUS per A.D.A. criteria. Performed By: #### L 100.0100, L500.2500 #### [facility] [address] [place], [address] Potassium [Moles/Vol] 3.4 mmol/L Low 3.5-5.1 [place] Comment on above: Result Comment: Mode rate Hemolysis, Result may be falsely increased. Performed By: #### L 100.0100, L500.2500 #### [facility] [address] [place], [address] Sodium [Moles/Vol] 138 mmol/L Normal 136-145 [facility] Comment on above: Performed By: #### L 100.0100, L500.2500 #### [facility] [address] [place], [address] Urea nitrogen [Mass/Vol] 10 mg/dL Normal 7-18 [facility] Comment on above: Performed By: #### L 100.0100, L500.2500 #### [facility] [address] [place], [address] Basophil percentageOrdered B y: Corona Agee on 03-23-2024 Basophils/100 WBC (Bld) 0.5 % 0-1 [facility] Blood urea nitrogen (BUN)/cr eatinine ratioOrdered By: Corona Agee on 03-23-2024 Urea nitrogen/Creatinine [Mass ratio] 9.7 mg/mg Low 10-20 [facility] Carbon dioxide measurementOr dered By: Corona Agee on 03-23-2024 CO2 [Moles/Vol] 28.0 mmol/L 21.0-32.0 [facility] Chest PA and Lateralon 03-23 Chest PA and Lateral Imaging Services [address] [place] [address] Chest PA and Lateral MR#: [id number] Acct: [id number] Name: GAUTAMDARLING Rep #: [id number] : 1955 F 68 From: Keshawn Geronimo PCP: Dr. Ilya Monroe MD Status: REG ER Study: Chest PA and Lateral Date of Exam: 03/23/24 Exam# [id number] Ordering Dr: Corona Agee DO [id number] STUDY: X-RAY CHEST REASON FOR EXAM: Female, 68 years old. cough TECHNIQUE: Single frontal view of the chest. COMPARISON: January FINDINGS: Possible new mild perihilar interstitial infiltrate. There is no demonstrated pleural abnormality. Normal size heart. Normal mediastinum and mary. Normal visualized pulmonary arteries. Normal visualized aortic arch and descending thoracic aorta. Normal visualized thoracic spine. Normal visualized ribs, clavicles, and shoulders. There is no demonstrated abnormality of the visualized soft tissue structures of the upper abdomen. RAD/Chest PA and Lateral IMPRESSION: Possible new Mild perihilar interstitial infiltrates Electronically Signed: Keshawn Arevalo MD at 22:32 EST , CC: Dr. Ilya Monroe MD; Dr. Corona Agee DO Border Measurer: Signed Normal [facility] Chloride measurementOrdered By: Corona Agee on 03-23-2024 Chloride [Moles/Vol] 103 mmol/L 98-107 [facility] Emergency Department Summary on 03-23-2024 Emergency Department Summary [facility] Medical Records Department [address] [place] [address] Emergency Department Summary 03/23/24 MR#: [id number] Acct: [id number] Name: DARLING FLOREZ Rep #: [id number] : 1955 68 From: Corona Waters PCP: Dr. Ilya Monroe MD Status:DEP ER Location: ED HPI History of Present Illness Chief Complaint: General Illness Informant: patient and spouse/S.O. Narrative Narrative: Here with spouse concerning worsening cough day 5. Initial fever and chills for 2 days. Saw primary care office 3 days ago treated for sinus infection. Placed on antibiotic, steroids and Flonase. Symptoms continued. Occasional wheezing. History of asthma. Prediabetic. No chest pains no abdominal pain. No vomiting. Initial diarrhea that resolved. Tolerant oral fluids. No urinary symptoms. Sick contacts with people at [facility] some people had pneumonia. [facility] Medical History Breast cancer Coronary artery disease Dyslipidemia Aortic valve sclerosis Near syncope Hyperlipidemia History of left heart catheterization (LHC) ( 06/03/21) 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y artery without angina pectoris Abnormal stress test Unstable angina Depression Anxiety Hypertension Migraines Bradycardia Pneumonia due to COVID-19 virus Acute respiratory failure with hypoxia Hypoxemia COVID-19 COVID-19 GERD (gastroesophageal reflux disease) Heart murmur Hearing problem Cataract Back problem Asthma Arthritis Allergies Bronchitis Dysuria Urinary urgency Acquired stenosis of urethral meatus Essential hypertension PND (post-nasal drip) Dyspnea on exertion Fibrocystic breast disease External hemorrhoid, thrombosed Lymphocytosis Leukopenia Fibrocystic breast disease Former smoker Family history of cardiovascular disease Asthma GERD (gastroesophageal reflux disease) Fibromyalgia Obesity (BMI 30.0-34.9) Sciatica Home Medications ???Medication ???Instructions ???Recorded ???Last Taken ???Type citalopram 40 mg tablet (Celexa) 40 mg PO DAILY mental health 11/07/18 06/02/21 History gabapentin 600 mg tablet 600 mg PO QHS PRN nerve pain 11/07/18 Unknown History gabapentin 100 mg capsule 100 mg PO DAILY PRN nerve pain 01/06/19 Unknown History albuterol sulfate 2.5 mg/3 mL 2.5 mg (3 mL) inhalation Q4H PRN 02/07/19 Unknown Rx (0.083 %) solution for nebulization Sob /Or Wheezing #180 mL pantoprazole 40 mg tablet,delayed 40 mg PO DAILY PRN reflux 09/12/19 2 Days Ago History release 05/31/21 fluticasone propionate 50 1 spray intranasal BID PRN 05/04/20 Unknown History mcg/actuation nasal Congestion spray,suspension cholecalciferol (vitamin D3) 125 125 mcg PO DAILY vitamin 06/02/21 06/02/21 History mcg (5,000 unit) capsule dicyclomine 20 mg tablet 20 mg PO TID PRN abdominal 05/10/22 Unknown Rx cramping #20 tabs hydrocodone-acetaminophe n 5-325mg 1 tab PO Q4H PRN PRN Pain 3 days 12/14/22 Unknown Rx 5mg-325mg #10 TABLETS anastrozole 1 mg tablet mg PO 04/28/23 Unknown History albuterol sulfate 90 mcg/actuation 2 puff inhalation Q4H PRN 07/08/23 Unknown Rx aerosol inhaler (Ventolin HFA) shortness of breath or wheezing #1 device budesonide-formoterol HFA 160 2 puff inhalation BID #1 ea 07/08/23 Unknown Rx mcg-4.5 mcg/actuation aerosol inhaler (Symbicort) montelukast 10 mg tablet 10 mg PO DAILY allergies #90 tabs 07/08/23 Unknown Rx (Singulair) amlodipine 2.5 mg tablet (Norvasc) 2.5 mg PO DAILY #90 tabs 11/23/23 Unknown Rx atorvastatin 40 mg tablet 40 mg PO QHS #90 tabs 11/23/23 Unknown Rx azelastine 137 mcg (0.1 %) nasal 2 spray intranasal BID PRN 11/23/23 Unknown History spray hydrochlorothiazide 12.5 mg capsule 12.5 mg PO DAILY diuretic #90 caps 11/23/23 Unknown Rx isosorbide mononitrate 60 mg 60 mg PO DAILY #90 tabs 11/23/23 Unknown Rx tablet,extended release 24 hr losartan 25 mg tablet 25 mg PO DAILY blood pressure #90 11/23/23 Unknown Rx tabs multivitamin (Daily Multi-Vitamin 1 tab PO DAILY 11/23/23 Unknown History tablet) palbociclib 125 mg capsule 125 mg PO DAILY 11/23/23 Unknown History (Ibrance) prednisone 20 mg tablet 60 mg (3 x 20 mg) PO QDAY #15 tabs 01/11/24 Unknown Rx doxycycline monohydrate 100 mg 100 mg PO BID #6 CAPSULES 03/23/24 Unknown Rx capsule Allergy/AdvReac Type Severity Reaction Status Date / Time apple Allergy Hives Verified 03/23/24 21:13 banana Allergy Hives Verified 03/23/24 21:13 carrot Allergy Hives Verified 03/23/24 21:13 pineapple Allergy Itching Verified 03/23/24 21:13 shellfish derived (lobster) Allergy Anaphylaxis Verified 03/23/24 21:13 shrimp Allergy Anaphylaxis Verified 03/23/24 21:13 amoxicillin AdvReac YEAST Verified 03/23/24 21:13 INFECTION Family (more content not included)... Normal [facility] Eosinophil percentageOrdered By: Corona Agee on 03-23-2024 Eosinophils/100 WBC (Bld) 0.0 % 0-5 [facility] Erythrocyte distribution wid th ratioOrdered By: Corona Agee on 03-23-2024 Erythrocyte distribution width (RBC) [Ratio] 13.0 % 11.6-14.6 [facility] Erythrocyte distribution wid th standard deviationOrdered By: Corona Agee on 03-23-2024 Erythrocyte distribution width (RBC) [Entitic vol] 47.8 fL High 35.1-43.9 [facility] Estimated glomerular filtrat ion rate (GFR) AmericanOrdered By: Corona Agee on 03-23-2024 Estimated GFR (MDRD) Amer 69 mL/min >60 [facility] Comment on above: GFR Calc Estimation of creatinine dann aranceOrdered By: Corona Agee on 03-23-2024 Estimated Creatinine Clearance Calc 70.52 ml/min [facility] Glomerular filtration rate ( GFR) estimationOrdered By: Corona Agee on 03-23-2024 Estimated GFR (MDRD) Non-Af Amer 57 mL/min Low >60 [facility] Comment on above: Non- GFR Calc Glucose measurementOrdered B y: Corona Agee on 03-23-2024 Glucose [Mass/Vol] 221 mg/dL High 74-106 [facility] Comment on above: Glucose result great er than or equal to 200 mg/dLsuggests DIABETES MELLITUS per A.D.A. criteria. Hematocrit Auto (Bld) [Volum e fraction]Ordered By: Corona Agee on 03-23-2024 Hematocrit (Bld) [Volume fraction] 31.3 % Low 37-47 [facility] Hemoglobin measurementOrdere d By: Corona Agee on 03-23-2024 Hemoglobin (Bld) [Mass/Vol] 11.2 g/dL Low 12.0-15.0 [facility] Immature granulocytes/100 WB C Auto (Bld)Ordered By: Corona Agee on 03-23-2024 Immature granulocytes/100 WBC (Bld) 0.500 % 0.0-0.9 [facility] Comment on above: IG% - Immature Granu locytes (promyelocytes, myelocytes and metamyelocytes) > 1% indicates that a LEFT SHIFT is Present. Influenza virus A and B and SARS-CoV-2 (COVID-19) and Respiratory syncytial virus RNAOrdered By: Corona Agee on 03-23-2024 SARS-CoV-2 (COVID-19) RNA DOUGLAS+probe Ql (Unsp spec) [facility] Laboratory - Hematology and Cell countsOrdered By: Corona Agee on 03-23-2024 Anisocytosis Ql (Bld) 1+ [place] Lymphocytes Auto (Unsp spec) [#/Vol]Ordered By: Corona Agee on 03-23-2024 Lymphocytes (Bld) [#/Vol] 0.51 10*3/uL Low 0.83-4.51 [facility] Lymphocytes/100 WBC Auto (Un sp spec)Ordered By: Corona Agee on 03-23-2024 Lymphocytes/100 WBC (Bld) 24.3 % 19-41 [facility] M100.678on 03-23-2024 M100.678 Pending SARS-CoV-2 (COVID 19) Negative INFLUENZA A Negative INFLUENZA B Negative RSV PCR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 and the patient agreed to undergo the procedure. Dr. Chase and a human performance technologist were present throughout the entire procedure. Audible Time Out Time: 1023 Procedure Start Time: 1025 Procedure Stop Time: 1029 Dr. Chase performed the entire procedure without an dietetic assistant. PROCEDURE: Correlation is made to exams dated: 03/25/2023 ultrasound - [facility], 03/17/2023 breast MRI - [facility], 04/01/2023 ultrasound, and 04/01/2023 ultrasound biopsy - [facility]. An ultrasound guided biopsy using real-time ultrasound was performed for the concerning lymph node located in the left breast at 1 o'clock middle depth 6 cm from the nipple. This was described on the previous ultrasound and MRI reports. The skin was prepped in the usual manner. Local anesthetic was administered to the access site. A skin christiano was made in the breast. The abnormality was approached from the lateral aspect. A 14 gauge biopsy needle was placed adjacent to the abnormality under ultrasound guidance. Once the needle was documented to be in the correct location, a specimen was obtained using a BARD biopsy device. Four Coil-shaped marker clip were inserted into the biopsy cavity. A skin closure strip and a sterile dressing were applied to the access site. Post procedure digital mammographic, ultrasound, and MRI imaging demonstrates the location devices at the targeted area. The specimen was sent to the laboratory for pathological analysis. IMPRESSION: ULTRASOUND GUIDED BIOPSY MALIGNANT Ultrasound guided biopsy of the lymph node in the left breast at 1 o'clock middle depth 6 cm from the nipple with placement of four clips was successful with no apparent post procedure complications. 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 Pathology results are concordant with imaging findings. A surgical/oncologic consultation is recommended. SUMMARY: Pathology results are as follows: FINAL DIAGNOSIS A. Left breast, 1:00, 6 cm from nipple, coil clip, needle core biopsy: -- Invasive ductal carcinoma with features suggestive of lymph node replacement ? B. Left breast, 9:00, 5 cm from nipple, clear clip, needle core biopsy: -- Invasive ductal carcinoma with lobular features, provisional grade 2 -- Perineural invasion is identified. The patient will follow up with Dr. Bae for the above newly diagnosed breast carcinoma and surgical management. Josh hawk/margarita:04/12/2023 09:27:34 Pencil Maker(s): Kedar Griffin(R)(M), [facility]; RT Edgard(R)(M), [facility]; RT Victor Hugo(R), [facility] Multiple national specialty organizations have released breast cancer screening guidelines for women at average risk for developing breast cancer - guidelines that are based on both evidence and opinion, yet differ on when to start and how often to screen for breast cancer. With representation from Breast Imaging, Internal Medicine, Women's Health, Family Medicine, and Medical/Surgical Oncology, the [facility] has carefully reviewed the data and reached the following consensus: 1) All women should engage in shared decision-making with their providers to decide when to start and how often to screen; 2) All women should have the opportunity to start screening mammography at age 40; 3) For women ages 45-55, we recommend annual screening mammograms; 4) For women ages 55 and over, we support both the transition fr (more content not included)... Normal [facility] US BIOPSY BREAST ADDL LT on 04-01-2023 [facility] US BIOPSY BREAST ADDL LT * * *Final Report* * * * * * SEE BOTTOM OF REPORT FOR ADDENDED TEXT * * * DATE OF EXAM: Apr 01 2023 10:49AM AAW 0613 - [facility] US BIOPSY BREAST ADDL LT / PROCEDURE REASON: Abnormal findings on diagnostic imaging of breast * * * * Physician Interpretation * * * * FINAL REPORT #[id number] - [facility] US BIOPSY BREAST ADDL LT ULTRASOUND GUIDED BIOPSY LEFT BREAST WITH MARKING DEVICE INSERTED AND POST ULTRASOUND AND MRI IMAGIN04/01/2023 HISTORY: Abnormal Findings On Diagnostic Imaging Of Breast /Patient presents for an ultrasound guided biopsy of the left breast. PATIENT CONSENT: A time out was performed immediately prior to procedure start with the nursing and radiology team, correctly identifying the patient name, date of , procedure, anatomy (including marking of site and side), patient position, relevant diagnostic and radiology test results, safety precautions, and procedure-specific equipment needs. The procedure was explained to the patient including the risks, benefits and alternatives. Medications were also reviewed. The risks, including but not limited to infection and bleeding, were reviewed by the performing physician and the patient agreed to undergo the procedure. Dr. Chase and a human performance technologist were present throughout the entire procedure. Audible Time Out Time: 1023 Procedure Start Time: 1034 Procedure Stop Time: 1041 Dr. Chase performed the entire procedure without an dietetic assistant. PROCEDURE: Correlation is made to exams dated: 03/17/2023 breast MRI - [facility], 03/25/2023 ultrasound, and 04/01/2023 ultrasound - [facility]. An ultrasound guided biopsy using real-time ultrasound was performed for the concerning region located in the left breast at 9 o'clock middle depth 5 cm from the nipple. This was described on the previous ultrasound and MRI reports. The skin was prepped in the usual manner. Local anesthetic was administered to the access site. A skin christiano was made in the breast. The abnormality was approached from the caudocranial aspect. A 14 gauge biopsy needle was placed adjacent to the abnormality under ultrasound guidance. Once the needle was documented to be in the correct location, four cores were obtained using a BARD biopsy device. A Twirl clip was inserted into the biopsy cavity. A skin closure strip and a sterile dressing were applied to the access site. Post procedure ultrasound and MRI imaging demonstrates the location device at the targeted area. The specimens were sent to the laboratory for pathological analysis. IMPRESSION: ULTRASOUND GUIDED BIOPSY MALIGNANT Ultrasound guided biopsy of the region in the left breast at 9 o'clock middle depth 5 cm from the nipple with placement of a clip was successful with no apparent post procedure complications. Pathology indicates malignant invasive ductal carcinoma (ID). Pathology results are concordant with imaging findings. A surgical/oncologic consultation is recommended. SUMMARY: Pathology results are as follows: FINAL DIAGNOSIS A. Left breast, 1:00, 6 cm from nipple, coil clip, needle core biopsy: -- Invasive ductal carcinoma with features suggestive of lymph node replacement ? B. Left breast, 9:00, 5 cm from nipple, clear clip, needle core biopsy: -- Invasive ductal carcinoma with lobular features, provisional grade 2 -- Perineural invasion is identified. The patient will follow up with Dr. Bae for the above newly diagnosed breast carcinoma and surgical management. Josh hawk/margarita:04/12/2023 09:28:05 Pencil Maker(s): Kedar Griffin(Kemar)(M), [facility] Multiple national specialty organizations have released breast cancer screening guidelines for women at average risk for developing breast cancer - guidelines that are based on both evidence and opinion, yet differ on when to start and how often to screen for breast cancer. With representation from Breast Imaging, Internal Medicine, Women's Health, Family Medicine, and Medical/Surgical Oncology, the [facility] has carefully reviewed the data and reached the following consensus: 1) All women should engage in shared decision-making with their providers to decide when to start and how often to screen; 2) All women should have the opportunity to start screening mammography at age 40; 3) For women ages 45-55, we recommend annual screening mammograms; 4) For women ages 55 and over, we support both the transition from an annual to a biennial interval if this aligns more with patient's values and preferences, or continuation with annual screening; 5) All women should discuss with their providers when to stop screening mammograms. Border Measurer: Margarita Colerigrace Date/Time: Apr 01 2023 10:23A Dictated by : JOSH CHASE MD This examination was interpreted and the report reviewed and electronically signed b (more content not included)... Normal [facility] US BIOPSY BREAST LTon [facility] US BIOPSY BREAST LT * * *Final Report* * * * * * SEE BOTTOM OF REPORT FOR ADDENDED TEXT * * * DATE OF EXAM: Apr 01 2023 10:33AM AAW 0597 - [facility] US BIOPSY BREAST LT / PROCEDURE REASON: Abnormal findings on diagnostic imaging of breast * * * * Physician Interpretation * * * * FINAL REPORT #[id number] - [facility] US BIOPSY BREAST LT #[id number] - MRI BREAST CLIP PLACEMENT LT -NB #[id number] - [facility] DIAG W RAFY LT ULTRASOUND GUIDED BIOPSY LEFT BREAST WITH MARKING DEVICES INSERTED AND POST DIGITAL MAMMOGRAPHIC, ULTRASOUND, AND MRI IMAGIN04/01/2023 HISTORY: Abnormal Findings On Diagnostic Imaging Of Breast /Patient presents for an ultrasound guided biopsy of the left breast. Abnormal Findings On Diagnostic Imaging Of Breast/ /Ultrasound guided clip placement. Post Biopsy. PATIENT CONSENT: A time out was performed immediately prior to procedure start with the nursing and radiology team, correctly identifying the patient name, date of , procedure, anatomy (including marking of site and side), patient position, relevant diagnostic and radiology test results, safety precautions, and procedure-specific equipment needs. The procedure was explained to the patient including the risks, benefits and alternatives. Medications were also reviewed. The risks, including but not limited to infection and bleeding, were reviewed by the performing physician and the patient agreed to undergo the procedure. Dr. Chase and a human performance technologist were present throughout the entire procedure. Audible Time Out Time: 1023 Procedure Start Time: 1025 Procedure Stop Time: 1029 Dr. Chase performed the entire procedure without an dietetic assistant. PROCEDURE: Correlation is made to exams dated: 03/25/2023 ultrasound - [facility], 03/17/2023 breast MRI - [facility], 04/01/2023 ultrasound, and 04/01/2023 ultrasound biopsy - [facility]. An ultrasound guided biopsy using real-time ultrasound was performed for the concerning lymph node located in the left breast at 1 o'clock middle depth 6 cm from the nipple. This was described on the previous ultrasound and MRI reports. The skin was prepped in the usual manner. Local anesthetic was administered to the access site. A skin christiano was made in the breast. The abnormality was approached from the lateral aspect. A 14 gauge biopsy needle was placed adjacent to the abnormality under ultrasound guidance. Once the needle was documented to be in the correct location, a specimen was obtained using a [employer] biopsy device. Four Coil-shaped marker clip were inserted into the biopsy cavity. A skin closure strip and a sterile dressing were applied to the access site. Post procedure digital mammographic, ultrasound, and MRI imaging demonstrates the location devices at the targeted area. The specimen was sent to the laboratory for pathological analysis. IMPRESSION: ULTRASOUND GUIDED BIOPSY MALIGNANT Ultrasound guided biopsy of the lymph node in the left breast at 1 o'clock middle depth 6 cm from the nipple with placement of four clips was successful with no apparent post procedure complications. 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 Pathology results are concordant with imaging findings. A surgical/oncologic consultation is recommended. SUMMARY: Pathology results are as follows: FINAL DIAGNOSIS A. Left breast, 1:00, 6 cm from nipple, coil clip, needle core biopsy: -- Invasive ductal carcinoma with features suggestive of lymph node replacement ? B. Left breast, 9:00, 5 cm from nipple, clear clip, needle core biopsy: -- Invasive ductal carcinoma with lobular features, provisional grade 2 -- Perineural invasion is identified. The patient will follow up with Dr. Bae for the above newly diagnosed breast carcinoma and surgical management. Josh hawk/margarita:04/12/2023 09:27:34 Pencil Maker(s): Kedar Griffin(R)(M), [facility]; RT Edgard(R)(M), [facility]; RT Victor Hugo(R), [facility] Multiple national specialty organizations have released breast cancer screening guidelines for women at average risk for developing breast cancer - guidelines that are based on both evidence and opinion, yet differ on when to start and how often to screen for breast cancer. With representation from Breast Imaging, Internal Medicine, Women's Health, Family Medicine, and Medical/Surgical Oncology, the [facility] has carefully reviewed the data and reached the following consensus: 1) All women should engage in shared decision-making with their providers to decide when to start and how often to screen; 2) All women should have the opportunity to start screening mammography at age 40; 3) For women ages 45-55, we recommend annual screening mammograms; 4) For women ages 55 and over, we support both the transiti (more content not included)... [facility] [employer] BREAST LTD LTon 04-01 [employer] BREAST [employer] LT * * *Final Report* * * DATE OF EXAM: Apr 01 2023 10:24AM AAW 0593 - [employer] BREAST [employer] LT / PROCEDURE REASON: Abnormal findings on diagnostic imaging of breast * * * * Physician Interpretation * * * * #[id number] - [employer] BREAST [employer] LT LIMITED ULTRASOUND OF LEFT BREAST: 04/01/2023 HISTORY: Abnormal Findings On Diagnostic Imaging Of Breast Second look ultrasound following abnormal MRI. RESULT: Comparison is made to exam dated: 03/17/2023 breast MRI - [facility]. Real-time ultrasound of the left breast 9 o'clock region was performed on the areas of interest. Urias scale images of the real-time examination were reviewed. There is a 3.1 cm x 1.1 cm x 0.9 cm irregular area in the left breast at 9 o'clock middle depth 5 cm from the nipple. This irregular area is isoechoic but of mixed echogenicity. This was not seen on the prior MRI. Color flow imaging demonstrates that there is internal vascularity. This likely correlates with a suspicious area of segmental enhancement in the left breast upper inner quadrant middle depth (see axial subtraction image 74), which is seen on retrospective review. IMPRESSION: SUSPICIOUS FINDING - BIOPSY SHOULD BE CONSIDERED The 3.1 cm x 1.1 cm x 0.9 cm irregular area in the left breast is suspicious of malignancy. An ultrasound guided biopsy is recommended. SUMMARY: Results and recommendations were discussed with the patient at time of examination. Informed consent for the recommended biopsy was explained and signed by the patient at the time of exam. This will be biopsied today. Josh Chase M.D. kenn/margarita:04/01/2023 16:16:22 Pencil Maker(s): Kedar Griffin(Kemar)(M), [facility] Ultrasound BI-RADS: 4 Suspicious finding - Biopsy should be considered Multiple national specialty organizations have released breast cancer screening guidelines for women at average risk for developing breast cancer - guidelines that are based on both evidence and opinion, yet differ on when to start and how often to screen for breast cancer. With representation from Breast Imaging, Internal Medicine, Women's Health, Family Medicine, and Medical/Surgical Oncology, the [facility] has carefully reviewed the data and reached the following consensus: 1) All women should engage in shared decision-making with their providers to decide when to start and how often to screen; 2) All women should have the opportunity to start screening mammography at age 40; 3) For women ages 45-55, we recommend annual screening mammograms; 4) For women ages 55 and over, we support both the transition from an annual to a biennial interval if this aligns more with patient's values and preferences, or continuation with annual screening; 5) All women should discuss with their providers when to stop screening mammograms. Border Measurer: Margarita Transcribe Date/Time: Apr 01 2023 10:14A Dictated by : JOSH CHASE MD This examination was interpreted and the report reviewed and electronically signed by: JOSH CHASE MD on Apr 01 2023 4:16PM EST [id number] [facility] MRI BREAST CLIP PLACEMENT LT -NBon 04-01-2023 MRI BREAST CLIP PLACEMENT LT -NB * * *Final Report* * * * * * SEE BOTTOM OF REPORT FOR ADDENDED TEXT * * * DATE OF EXAM: Apr 01 2023 12:58PM [facility] 0765 - MRI BREAST CLIP PLACEMENT LT -NB / PROCEDURE REASON: post biopsy * * * * Physician Interpretation * * * * FINAL REPORT #[id number] - [facility] US BIOPSY BREAST LT #[id number] - MRI BREAST CLIP PLACEMENT LT -NB #[id number] - [facility] DIAG W RAFY LT ULTRASOUND GUIDED BIOPSY LEFT BREAST WITH MARKING DEVICES INSERTED AND POST DIGITAL MAMMOGRAPHIC, ULTRASOUND, AND MRI IMAGIN04/01/2023 HISTORY: Abnormal Findings On Diagnostic Imaging Of Breast /Patient presents for an ultrasound guided biopsy of the left breast. Abnormal Findings On Diagnostic Imaging Of Breast/ /Ultrasound guided clip placement. Post Biopsy. PATIENT CONSENT: A time out was performed immediately prior to procedure start with the nursing and radiology team, correctly identifying the patient name, date of , procedure, anatomy (including marking of site and side), patient position, relevant diagnostic and radiology test results, safety precautions, and procedure-specific equipment needs. The procedure was explained to the patient including the risks, benefits and alternatives. Medications were also reviewed. The risks, including but not limited to infection and bleeding, were reviewed by the performing physician and the patient agreed to undergo the procedure. Dr. Chase and a human performance technologist were present throughout the entire procedure. Audible Time Out Time: 1023 Procedure Start Time: 1025 Procedure Stop Time: 1029 Dr. Chase performed the entire procedure without an dietetic assistant. PROCEDURE: Correlation is made to exams dated: 03/25/2023 ultrasound - [facility], 03/17/2023 breast MRI - [facility], 04/01/2023 ultrasound, and 04/01/2023 ultrasound biopsy - [facility]. An ultrasound guided biopsy using real-time ultrasound was performed for the concerning lymph node located in the left breast at 1 o'clock middle depth 6 cm from the nipple. This was described on the previous ultrasound and MRI reports. The skin was prepped in the usual manner. Local anesthetic was administered to the access site. A skin christiano was made in the breast. The abnormality was approached from the lateral aspect. A 14 gauge biopsy needle was placed adjacent to the abnormality under ultrasound guidance. Once the needle was documented to be in the correct location, a specimen was obtained using a BARD biopsy device. Four Coil-shaped marker clip were inserted into the biopsy cavity. A skin closure strip and a sterile dressing were applied to the access site. Post procedure digital mammographic, ultrasound, and MRI imaging demonstrates the location devices at the targeted area. The specimen was sent to the laboratory for pathological analysis. IMPRESSION: ULTRASOUND GUIDED BIOPSY MALIGNANT Ultrasound guided biopsy of the lymph node in the left breast at 1 o'clock middle depth 6 cm from the nipple with placement of four clips was successful with no apparent post procedure complications. 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 Pathology results are concordant with imaging findings. A surgical/oncologic consultation is recommended. SUMMARY: Pathology results are as follows: FINAL DIAGNOSIS A. Left breast, 1:00, 6 cm from nipple, coil clip, needle core biopsy: -- Invasive ductal carcinoma with features suggestive of lymph node replacement ? B. Left breast, 9:00, 5 cm from nipple, clear clip, needle core biopsy: -- Invasive ductal carcinoma with lobular features, provisional grade 2 -- Perineural invasion is identified. The patient will follow up with Dr. Bae for the above newly diagnosed breast carcinoma and surgical management. Josh hawk/margarita:04/12/2023 09:27:34 Pencil Maker(s): Kedar Griffin(R)(M), [facility]; RT Edgard(R)(M), [facility]; RT Victor Hugo(R), [facility] Multiple national specialty organizations have released breast cancer screening guidelines for women at average risk for developing breast cancer - guidelines that are based on both evidence and opinion, yet differ on when to start and how often to screen for breast cancer. With representation from Breast Imaging, Internal Medicine, Women's Health, Family Medicine, and Medical/Surgical Oncology, the [facility] has carefully reviewed the data and reached the following consensus: 1) All women should engage in shared decision-making with their providers to decide when to start and how often to screen; 2) All women should have the opportunity to start screening mammography at age 40; 3) For women ages 45-55, we recommend annual screening mammograms; 4) For women ages 55 and over, we support both the transition from an annual to a dima (more content not included)... [facility] SURGICAL PATHOLOGYon 023 CASE REPORT [facility] Comment on above: Order Comment: Speci men Type: TISSUE SPECIMENOrdering Facility: [facility] Address: [address] [place] [address] Result Comment: Surg ica Pathology Report Case: [id number] Authorizing Provider: Josh Chase MD Collected: 04/01/2023 10:38 AM Ordering Location: [facility] Received: 04/05/2023 09:35 AM [facility] Pathologist: Karma Ge MD Specimens: A) - BREAST CORE BIOPSY LEFT, 1:00 6 cm FN, 14g x 4, collection 1026, formulin 1026, coil clip B) - BREAST CORE BIOPSY LEFT, 9:00 5 cm FN, 14g x 4, collection 1035, formulin 1035, twirl clip Performed By: #### L [id number] ####[facility] LABCLIA [id number] [place] [address] [place]#### S, ERPRAK ####[facility] [id number] [address] [place] CLINICAL HISTORY Suspicious intramamm regi node at 1:00 and suspcious tissue with enhancement by MRI at 9:00 (concerning for primary carcinoma) [facility] Comment on above: Order Comment: Speci men Type: TISSUE SPECIMENOrdering Facility: [facility] Address: [address] [place] [address] Performed By: #### L [id number] ####[facility] LABCLIA [id number] [place] [address] [place]#### S, ERPRAK ####[facility]ORY[facility] [id number] [address] [place] DIAGNOSIS COMMENT [facility] Comment on above: Order Comment: Speci men Type: TISSUE SPECIMENOrdering Facility: [facility] Address: [address] [place] [address] Result Comment: In p art A the largest focus of invasive carcinoma measures 6 mm in this limited sample. The invasive carcinoma shows well-circumscribed/pushing borders with focal rim of the lymphocytes at periphery and patchy lymphocytic aggregates, suggestive of lymph node involvement/replacement. In part B the largest focus of invasive carcinoma measures 4 mm in this limited sample. The invasive carcinoma shows poor glandular differentiation (score 3), moderate nuclear pleomorphism (score 2), and mitotic rate (score 1) for provisional histologic grade 2. Immunohistochemical stain for E-cadherin shows strong membranous staining in both parts supporting ductal carcinoma phenotype. Immunohistochemical stains for estrogen receptor and progesterone receptor were performed in part A (please see results report). Immunohistochemical stain for HER2/javan reflex to FISH will be sent to [facility] with results reported separately. This case has been reviewed by Dr. Martinez Pryor, who concurs with the above findings. Laboratory Developed Test (LDT) Disclaimer: Performance characteristics of immunohistochemical, immunofluorescent and chromogenic in-situ hybridization tests have been determined by the performing laboratory within [facility]???s [facility] Medicine [place] ([facility], [facility], [facility], [facility], [facility], [facility], or [facility]) in a manner consistent with CLIA requirements. One or more of these tests have not been cleared or approved by the FDA. [facility] is regulated under CLIA as qualified to perform high-complexity testing. These tests are used for clinical purposes. They should not be regarded as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 using CD45 and side scatter gating. The lymphocytes are heterogeneous T-cells (77)%; CD4:CD8 ratio = 4.85), NK cells (1%) and polytypic B-cells (22%). Performed By: #### F CLLP, FCLLRFLX ####[facility] LABCLIA [id number] [address] [place] INTERPRETATION Normal [facility] Comment on above: Order Comment: Speci men Type: TISSUE SPECIMENOrdering Facility: [facility] Address: [address] [place] [address] Result Comment: Ther e is no immunophenotypic evidence of involvement by lymphoma. Correlation with the clinical and histopathologic findings is suggested for final diagnosis. Performed By: #### F CLLP, FCLLRFLX ####[facility] LABCLIA [id number] [address] [place] HER2 AKRONon 02-22-2023 HER2 Normal [facility] Comment on above: Order Comment: Speci men Type: TISSUE SPECIMEN [facility] Address: [address] [place] [address] Result Comment: Cristin juarez Biomarkers (HER2 (ERBB2) by IHC) RESULTS: HER2 (ERBB2) IMMUNOHISTOCHEMISTRY ASSAY Interpretation: NEGATIVE for HER2 (ERBB2) Expression Score:0 Percentage of cells with uniform intense complete membrane staining: Not applicable (reported for 2+ and 3+ scores only) Specimen: [id number]; left axillary lymph node Block evaluated: A1 [...] staining or incomplete faint membrane staining in Interpretation comments: Consideration of follow-up testing for HER2 (ERBB2) status by fluorescence in situ hybridization (FISH) for all equivocal (2+) results is recommended and will be ordered as a reflex test if FISH was not a testing methodology already employed. METHODS: HER2 (ERBB2) by IHC: FDA cleared: [employer], [place], [place] Primary Antibody:4B5 Antibody and Detection System: [employer] anti-HER2 rabbit monoclonal antibody (clone 4B5), detected with the [employer] [place] DAB Detection Kit (indirect, biotin-free detection system): [employer], [place], [place]. Control Slides: Cell line controls with high, equivocal, low and negative HER2 protein expression, along with known positive control tissue as well as the patient's tissue are evaluated for HER2 expression. A separate slide of the patient's tissue is similarly processed without antibody (negative control); slides were reviewed and showed appropriate staining. The HER2 immunohistochemistry assay was developed, validated, scored, and reported in accordance with the guidelines approved by the [place] Society of Clinical Oncologists and the College of [place] Pathologists. Silvina REED et al. Arch Pathol Lab Med. 2018;1379(9) The HER2 assay has not been validated on decalcified tissues. Results should be interpreted with caution given the possibility of false negative results on decalcified specimens. Laboratory Developed Test (LDT) Disclaimer: Performance characteristics of immunohistochemical, immunofluorescent and chromogenic in-situ hybridization tests have been determined by the performing laboratory within [facility]???s [facility] [place] ([facility], [facility], [facility], [facility], [facility], [facility], or [facility]) in a manner consistent with CLIA requirements. One or more of these tests have not been cleared or approved by the FDA. RT-PLMI is regulated under CLIA as qualified to perform high-complexity testing. These tests are used for clinical purposes. They should not be regarded as investigational or for research. Positive and negative controls stain appropriately. The diagnostic interpretation was performed at [facility], [address] [place] [id number] CLIA# [id number] Electronically signed out by: Daisha Moore MD Performed By: #### T OPTO #### [facility] CLIA [id number] [address] [address] [place] #### S #### [facility] CLIA [id number] [address] [place] [address] [place] #### [id number] #### [facility] CLIA [id number] [address] [address] [place] [facility] DIAGNOST[facility] LEFTon 2022 [facility] TERESE DIAGNOSTIC LTon 02-23-20 23 [facility] * * *Final Report* * * * * * SEE BOTTOM OF REPORT FOR ADDENDED TEXT * * * DATE OF EXAM: Feb 22 2023 1:54PM MICHELLE 0621 - [facility] / PROCEDURE REASON: Abnormal ultrasound of breast * * * * Physician Interpretation * * * * FINAL REPORT #[id number] - [facility] #[id number] - [facility] US BIOPSY AXILLA LT ULTRASOUND GUIDED BIOPSY LEFT BREAST WITH MARKING DEVICE INSERTED AND POST DIGITAL MAMMOGRAPHIC AND ULTRASOUND IMAGIN02/22/2023 HISTORY: Ultrasound guided left axillary node biopsy. Abnormal Ultrasound Of Breast\ /Post breast biopsy clip placement. PATIENT CONSENT: A time out was performed immediately prior to procedure start with the radiology team, correctly identifying the patient name, date of , procedure, anatomy (including marking of site and side), patient position, relevant diagnostic and radiology test results, safety precautions, and procedure-specific equipment needs. The procedure was explained to the patient including the risks, benefits and alternatives. Medications and allergies were also reviewed. The risks, including but not limited to infection and bleeding, were reviewed by the performing physician and the patient agreed to undergo the procedure. The radiologist and technologist were present throughout the entire procedure. Audible Time Out Time: 1316 Procedure Start Time: 1317 Procedure Stop Time: 1326 . Correlation is made to exams dated: 01/11/2023 ultrasound and 12/30/2022 mammogram - [facility]. An ultrasound guided biopsy using real-time ultrasound was performed for the concerning lymph node located in the left axilla. This was described on the previous ultrasound report. The skin was prepped in the usual manner. Local anesthetic was administered to the access site. A skin christiano was made in the breast. The abnormality was approached from the caudocranial aspect. A 14 gauge biopsy needle was placed adjacent to the abnormality under ultrasound guidance. Once the needle was documented to be in the correct location, four cores were obtained using a BARD biopsy device. A hydromark clip was inserted into the biopsy cavity. A skin closure strip and a sterile dressing were applied to the access site. Post procedure digital mammographic and ultrasound imaging was obtained. The specimens were sent to the laboratory for pathological analysis. IMPRESSION: ULTRASOUND GUIDED BIOPSY MALIGNANT Ultrasound guided [...] carcinoma, consistent with breast primary, (see comment). at ?5:05 PM Diagnosis Comment The specimen consists of cores of lymph node tissue containing an atypical epithelioid infiltrate. Immunohistochemical stains reveal the atypical cells to be positive for cytokeratin CAM5.2, GATA3 and E-cadherin. ER and SD immunostains were performed with results in a [...] assessment. As discussed with the patient, Dr. Fang will give her the biopsy results. Patient also has follow up scheduled with Dr. Bae on 03/09. Considering the imaging of the left breast has otherwise been negative to date, MRI is recommended for further evaluation. Treva brice/margarita:03/01/2023 21:11:04 Pencil Maker(s): [employer] [place] [employer]S., [employer] [facility]; RT Demario(R)(M), [facility] [employer] [employer] [facility] Multiple national specialty organizations have released breast cancer screening guidelines for women at average risk for developing breast cancer - guidelines that are based on both evidence and opinion, yet differ on when to start and how often to screen for breast cancer. With representation from Breast Imaging, Internal Medicine, Women's Health, Family Medicine, and Medical/Surgical Oncology, the [facility] has carefully reviewed the data and reached the following consensus: 1) All women should engage in shared decision-making with their providers to decide when to start and how often to screen; 2) All women should have the opportunity to start screening mammography at age 40; 3) For women ages 45-55, we recommend annual screening mammograms; 4) For women ages 55 and over, we support both the transition from an (more content not included)... Normal [facility] US BIOPSY AXILLA LTon [facility] US BIOPSY AXILLA LT * * *Final Report* * * * * * SEE BOTTOM OF REPORT FOR ADDENDED TEXT * * * DATE OF EXAM: Feb 22 2023 1:48PM AAW 0601 - [facility] US BIOPSY AXILLA LT / PROCEDURE REASON: Abnormal ultrasound of breast * * * * Physician Interpretation * * * * FINAL REPORT #[id number] - [facility] #[id number] - [facility] US BIOPSY AXILLA LT ULTRASOUND GUIDED BIOPSY LEFT BREAST WITH MARKING DEVICE INSERTED AND POST DIGITAL MAMMOGRAPHIC AND ULTRASOUND IMAGIN02/22/2023 HISTORY: Ultrasound guided left axillary node biopsy. Abnormal Ultrasound Of Breast\ /Post breast biopsy clip placement. PATIENT CONSENT: A time out was performed immediately prior to procedure start with the radiology team, correctly identifying the patient name, date of , procedure, anatomy (including marking of site and side), patient position, relevant diagnostic and radiology test results, safety precautions, and procedure-specific equipment needs. The procedure was explained to the patient including the risks, benefits and alternatives. Medications and allergies were also reviewed. The risks, including but not limited to infection and bleeding, were reviewed by the performing physician and the patient agreed to undergo the procedure. The radiologist and technologist were present throughout the entire procedure. Audible Time Out Time: 1316 Procedure Start Time: 1317 Procedure Stop Time: 1326 . Correlation is made to exams dated: 01/11/2023 ultrasound and 12/30/2022 mammogram - [facility]. An ultrasound guided biopsy using real-time ultrasound was performed for the concerning lymph node located in the left axilla. This was described on the previous ultrasound report. The skin was prepped in the usual manner. Local anesthetic was administered to the access site. A skin christiano was made in the breast. The abnormality was approached from the caudocranial aspect. A 14 gauge biopsy needle was placed adjacent to the abnormality under ultrasound guidance. Once the needle was documented to be in the correct location, four cores were obtained using a BARD biopsy device. A hydromark clip was inserted into the biopsy cavity. A skin closure strip and a sterile dressing were applied to the access site. Post procedure digital mammographic and ultrasound imaging was obtained. The specimens were sent to the laboratory for pathological analysis. IMPRESSION: ULTRASOUND GUIDED BIOPSY MALIGNANT Ultrasound guided [...] carcinoma, consistent with breast primary, (see comment). at ?5:05 PM Diagnosis Comment The specimen consists of cores of lymph node tissue containing an atypical epithelioid infiltrate. Immunohistochemical stains reveal the atypical cells to be positive for cytokeratin CAM5.2, GATA3 and E-cadherin. ER and SD immunostains were performed with results in a [...] assessment. As discussed with the patient, Dr. Fang will give her the biopsy results. Patient also has follow up scheduled with Dr. Bae on 03/09. Considering the imaging of the left breast has otherwise been negative to date, MRI is recommended for further evaluation. Treva brice/margarita:03/01/2023 21:11:04 Pencil Maker(s): [employer] [place] R.D.M.S., [employer]; RT Demario(R)(M), [employer] [facility] Multiple national specialty organizations have released breast cancer screening guidelines for women at average risk for developing breast cancer - guidelines that are based on both evidence and opinion, yet differ on when to start and how often to screen for breast cancer. With representation from Breast Imaging, Internal Medicine, Women's Health, Family Medicine, and Medical/Surgical Oncology, the [facility] has carefully reviewed the data and reached the following consensus: 1) All women should engage in shared decision-making with their providers to decide when to start and how often to screen; 2) All women should have the opportunity to start screening mammography at age 40; 3) For women ages 45-55, we recommend annual screening mammograms; 4) For women ages 55 and over, we support both the transition fro (more content not included)... [facility] SURGICAL PATHOLOGYon 023 CASE REPORT [facility] Comment on above: Order Comment: Speci men Type: TISSUE SPECIMEN Ordering Facility: [facility] Address: [address] [place] [address] Result Comment: Surg ica Pathology Report Case: [id number] Authorizing Provider: Treva Mcleod MD Collected: 02/22/2023 01:23 PM Ordering Location: [facility] Received: 02/22/2023 02:03 PM [facility] Pathologist: Yonatan Interiano MD Specimen: AXILLARY LYMPH NODES LEFT, Biopsy Performed By: #### T OPTO #### [facility] CLIA [id number] [address] [place] [address] [place] #### S #### [facility] CLIA [id number] [address] [place] #### [id number] #### [facility] CLIA [id number] [address] [place] [address] [place] CLINICAL HISTORY Abnormal Mammogram[r ule out malignancy vs lymphoma [facility] Comment on above: Order Comment: Speci men Type: TISSUE SPECIMEN Ordering Facility: [facility] Address: [address] [place] [address] Performed By: #### T OPTO #### [facility] CLIA [id number] [address] [place] [address] [place] #### S #### [facility] CLIA [id number] [address] [place] [address] [place] #### [id number] #### [facility] CLIA [id number] [address] [place] [address] [place] DIAGNOSIS COMMENT [facility] Comment on above: Order Comment: Speci men Type: TISSUE SPECIMEN Ordering Facility: [facility] Address: [address] [place] [address] Result Comment: The specimen consists of cores of lymph node tissue containing an atypical epithelioid infiltrate. Immunohistochemical stains reveal the atypical cells to be positive for cytokeratin CAM5.2, GATA3 and E-cadherin. ER and SD immunostains were performed with results in a linked report. Flow cytometry (see separate report) showed no evidence of involvement by lymphoma. The overall findings are consistent with metastatic carcinoma from a breast primary. Studies for HER2 have been ordered and results will be in a linked report when available. The case was reviewed by Dr. Martinez Pryor who agrees with this assessment. Laboratory Developed Test (LDT) Disclaimer: Performance characteristics of immunohistochemical, immunofluorescent and chromogenic in-situ hybridization tests have been determined by the performing laboratory within [facility]???s [facility] Laboratory [facility] [place] ([facility], [facility], [facility], [facility], [facility], [facility], or [facility]) in a manner consistent with CLIA requirements. One or more of these tests have not been cleared or approved by the FDA. [facility] is regulated under CLIA as qualified to perform high-complexity testing. These tests are used for clinical purposes. They should not be regarded as investigational or for research. Positive and negative controls stain appropriately. Performed By: #### T OPTO #### [facility] CLIA [id number] [address] [place] [address] [place] #### S #### [facility] CLIA [id number] [address] [place] [address] [place] #### [id number] #### [facility] CLIA [id number] [address] [place] [address] [place] Order Comment: Speci men Type: TISSUE SPECIMENOrdering Facility: [facility] Address: [address] [place] [address] Result Comment: This test was developed and its performance characteristics determined by [facility]'s [facility] Pathology and Laboratory Medicine [place] ([facility]). It has not been cleared or approved by the FDA. -[facility] is regulated under CLIA as qualified to perform high-complexity testing. This test is used for clinical purposes. It should not be regarded as investigational or for research. Performed By: #### F CLLP, FCLLRFLX ####[facility] [id number] [address] FINAL DIAGNOSIS [facility] Comment on above: Order Comment: Speci men Type: TISSUE SPECIMEN Ordering Facility: [facility] Address: [address] [place] [address] Result Comment: A. L ymph node, left axillary, biopsy: - Metastatic carcinoma, consistent with breast primary, (see comment). Performed By: #### T OPTO #### [facility] CLIA [id number] [address] [place] [address] [place] #### S #### [facility] CLIA [id number] [address] #### [id number] #### [facility] CLIA [id number] [address] [place] [address] OF [place] FINAL PERFORMING LAB [facility] Comment on above: Order Comment: Speci men Type: TISSUE SPECIMEN Ordering Facility: [facility] Address: [address] [place] [address] Result Comment: Diag nostic interpretation performed at [facility], [address] [place] [address] CLIA# [id number] Net Trainer: Martinez D. Roya, M.D. Performed By: #### T OPTO #### [facility] CLIA [id number] [address] [place] [address] [place] #### S #### [facility] CLIA [id number] [address] STATES [facility] #### [id number] #### [facility] CLIA [id number] [address] [place] [address] [place] Order Comment: Speci men Type: TISSUE SPECIMENOrdering Facility: [facility] Address: [address] [place] [address] Result Comment: Diag nostic interpretation performed at [facility], [address] [place] [address] CLIA# [id number] Net Trainer: Rico Randle M.D. Performed By: #### F CLLP, FCLLRFLX ####[facility] [id number] [address] STATES [place] GROSS DESCRIPTION [facility] Comment on above: Order Comment: Speci men Type: TISSUE SPECIMEN Ordering Facility: [facility] Address: [address] [place] [address] Result Comment: A. A XILLARY LYMPH NODES LEFT Received 2 containers labeled with the patient name and designated as axillary lymph nodes left. 1). Received in saline on Telfa pad labeled with the patient name and designated as axillary lymph nodes left are 2 cores of pink-matute soft tissue measuring 0.9 cm and 1.2 cm respectively. Touch prep is prepared. The specimen is submitted into RPMI solution and sent for flow cytometric analysis. 2). Received in formalin labeled with the patient name and designated as axillary lymph nodes left are 2 pink-matute cores of pink-matute soft tissue ranging in length from 0.9 to 1.8 cm. The specimen is entirely submitted into 1 cassette A1. TNB Gross examination performed at [facility], [address] [place] [address] Performed By: #### T OPTO #### [facility] CLIA [id number] [address] [place] #### S #### [facility] CLIA [id number] [address] #### [id number] #### [facility] CLIA [id number] [address] [place] Order Comment: Speci men Type: TISSUE SPECIMENOrdering Facility: [facility] Address: [address] [place] [address] Result Comment: A. A XILLARY LYMPH NODES LEFT RECEIVED TWO THREADS OF TISSUE MEASURING 0.5 CM EACH IN RPMI Performed By: #### F CLLP, FCLLRFLX ####[facility] [id number] [address] TARGETED ONCOLOGY PANEL NEXT GENERATION SEQUENCING OTHER 02-22-2023 TARGETED ONCOLOGY PANEL NEXT GENERATION SEQUENCING OTHER [facility] Comment on above: Order Comment: Speci men Type: TISSUE SPECIMENOrdering Facility: [facility] Address: [address] [place] [address] Result Comment: [facility] Targeted Oncology Panel Laboratory Accession Number: [id number] Case #: [id number] Block #: A1 Sample Type: FFPET % Tumor: 90 CASE SUMMARY: A PIK3CA hotspot alteration and a gain of CCND1 are detected, see details below. *Unless otherwise stated, all assay hotspot regions have been tested (see EVALUATED GENES below) and only positive genes are reported. RESULTS: Single Nucleotide Variants/Indels: PIK3CA\X09\p.Iww1336Wyh \X09\NM_006218.2:c.3140A>G \X09\31.6% VAF, Depth 1754x, Ex21 Copy Number Gains: CCND1 Gain RNA Fusions and Aberrant Transcripts: None Detected VARIANT INTERPRETATIONS: PIK3CA p.Twk6425Abh NM_006218.2:c.3140A>G The clinically significant T5951M variant in PIK3CA was detected in this specimen. PIK3CA encodes for phosphatidylinositol-4,5-bisphosphate 3-kinase catalytic subunit. It promotes cell proliferation via PI3K/AKT/mTOR signaling pathway. Activating mutations (PMID: 80957945) and amplification (PMID: 93695218) leading to gain of function are observed in variety of tumors. CCND1 Gain CCND1 encodes for cyclin D1, which is involved in cell cycle regulation. Amplification of CCND1 has been associated with a variety of tumor types (PMID: 42574155). Variants of uncertain significance detected: None Detected Regions with coverage <100x: MTOR:NM_004958.3:Exon40 chr1:[id number] Range: 80-84; RET:NM_020975.4:In10/11 chr10:[id number] Range: 91-96; ERBB3:NM_001982.3:Exon2 chr12:[id number] Range: 89-95; CTNNB1:NM_001904.3:Exon3 chr3:[id number] Range: 31-38; PIK3CA:NM_006218.2:Exon2 chr3:[id number] Range: 42-49; FGFR3:NM_000142.4:Exon9 chr4:[id number] Range: 67-99; FGFR3:NM_000142.4:Exon16 chr4:[id number] Range: 36-40; METHODOLOGY: Extracted nucleic acid from the specimen, both DNA and RNA, were subjected to separate targeted amplification reactions, using AmpliSeq custom primers designed by [employer] ([employer], [place], [place]). Hotspots and selected fusions in gene regions listed below were sequenced using Illumina ([place], [place]) 2x150 paired-end cycle chemistry. A customized bioinformatics analytical platform was used for read alignment (Genome Build GRCh37/hg19), variant identification and annotation. Single nucleotide variants (SNVs), insertion, deletion (indels) and copy number gain variants are detected by DNA sequencing. Select fusions and aberrant transcripts (EGFR vIII and MET exon 14 skipping transcripts) are detected by RNA sequencing. Variants are classified according to established guidelines (1). Reported results include variants of strong or potential clinical significance and variants of unclear clinical significance. Benign population polymorphisms are not included in the report. Based on validation, the DNA testing delivered an average of >500x coverage and >99% of targeted regions showed over 100x coverage. A minimum coverage depth of 100 reads is required across the entire region of interest; a list of low coverage areas is included in the report as applicable. The test demonstrated 100% sensitivity and 100% specificity in identifying SNVs, indels and copy number gains. The lower limit of detection of this assay is approximately 5% variant allele fraction (VAF) for SNV/indels and 6 copies or greater for copy number gains. Variants below these thresholds may be reported at the discretion of the molecular pathology professional staff if the technical quality of the sequencing is sufficient at that location and the call is unequivocal. Based on validation, the RNA fusion testing averaged >150,000 total reads. The test demonstrated 93% sensitivity and 100% specificity in gene fusion identification compared to NGS sequencing, and 69% sensitivity and 100% specificity compared to FISH of fusion drivers (unknown fusion partner). Overall sensitivity is 78% and accuracy is 99%. The lower limit of detection is approximately 1% of total sequencing reads. LIMITATIONS: Sequence changes outside the analyzed alterations hotspots, including intronic and noncoding regions, will not be identified by this test. Insertions and deletions larger than 20 and 40 bp, respectively, may not be identified by this test. Negative results from specimens for which the percentage of tumor cells is 10% or less should be interpreted with caution. Although variant allele fraction is provided as a percentage, this is not a quantitative test. RNA fusions involving alternative partners or breakpoints outside of the targeted regions cannot be detected by this test. This test does not distinguish between somatic and inherited variants. Tumor heterogeneity, tumor burden, specimen degradation or other limitations of the technology may affect the sensitivity and limit of detection, either broadly across the regions of interest or for spe (more content not included)... Performed By: #### T OPTO ####[facility] LIMSCLIA [id number] [place] [address] [place]#### S ####[facility] [id number] [place] [address] [place]#### [id number] ####[facility] [id number] [place] [address] [place] US BIOPSY AXILLA LEFTon 02-09 [facility] Influenza virus A and B RNA and SARS-CoV-2 (COVID-19) N gene panel DOUGLAS+probe (Resp)on 01-31-2023 FLUAV RNA DOUGLAS+probe Ql (Unsp spec) Not detected Not Detected [facility] FLUBV RNA DOUGLAS+probe Ql (Unsp spec) Not detected Not Detected [facility] SARS-CoV-2 (COVID-19) RNA DOUGLAS+probe Ql (Resp) Not detected See comment [facility] Absolute lymphocyte countOrd ered By: Ahmet Betancourt on 01-15-2023 Lymphocytes Auto (Unsp spec) [#/Vol] 1.96 10*3/uL 0.83-4.51 [facility] Basophil percentageOrdered B y: Ahmet Betancourt on 01-15-2023 Basophils/100 WBC (Bld) 0.4 % 0-1 [facility] Chloride [Moles/Vol] 107 mmol/L 98-107 [facility] Eosinophils/100 WBC (Bld) 2.7 % 0-5 [facility] Glucose [Mass/Vol] 145 mg/dL 74-106 [facility] Comment on above: Fasting Glucose resu lt greater than or equal to 126 mg/dL suggests DIABETES MELLITUS per A.D.A. criteria. Neutrophils (Bld) [#/Vol] 2.3 10*3/uL 2.0-7.7 [facility] Neutrophils/100 WBC (Bld) 47.1 % 47-70 [facility] Potassium [Moles/Vol] 3.2 mmol/L 3.5-5.1 [place] Sodium [Moles/Vol] 140 mmol/L 136-145 [facility] WBC (Bld) [#/Vol] 4.8 10*3/uL 4.4-11.0 [facility] Blood erythrocytes count (nu mber/volume)Ordered By: Ahmet Betancourt on 01-15-2023 RBC (Bld) [#/Vol] 3.90 10*6/uL 4.2-5.4 [facility] Blood hemoglobin measurement (mass/volume)Ordered By: Ahmet Betancourt on 01-15-2023 Hemoglobin (Bld) [Mass/Vol] 12.4 g/dL 12.0-15.0 [facility] Blood lymphocytes/100 leukoc ytesOrdered By: Ahmet Betancourt on 01-15-2023 Lymphocytes/100 WBC (Bld) 40.8 % 19-41 [facility] Blood monocytes/100 leukocyt esOrdered By: Ahmet Betancourt on 01-15-2023 Monocytes/100 WBC (Bld) 8.8 % 0-10 [facility] Blood platelet mean volumeOr dered By: Ahmet Betancourt on 01-15-2023 Platelet mean volume (Bld) [Entitic vol] 8.8 fL 6.2-12.0 [facility] Determination of erythrocyte mean corpuscular volume (MCV)Ordered By: Ahmet Betancourt on 01-15-2023 MCV (RBC) [Entitic vol] 95.4 fL 81-99 [facility] Hematocrit Auto (Bld) [Volum e fraction]Ordered By: Ahmet Betancourt on 01-15-2023 Hematocrit (Bld) [Volume fraction] 37.2 % 37-47 [facility] - Chemistry and C hemistry - challengeOrdered By: Ahmet Betancourt on 01-15-2023 CO2 [Moles/Vol] 27.0 mmol/L 21.0-32.0 [facility] Urea nitrogen/Creatinine [Mass ratio] 10.8 mg/mg 10-20 [facility] - Hematology and Cell countsOrdered By: Ahmet Betancourt on 01-15-2023 Erythrocyte distribution width (RBC) [Entitic vol] 42.8 fL 35.1-43.9 [facility] Erythrocyte distribution width (RBC) [Ratio] 12.3 % 11.6-14.6 [facility] Immature granulocytes/100 WBC (Bld) 0.200 % 0.0-0.9 [facility] Comment on above: IG% - Immature Granu locytes (promyelocytes, myelocytes and metamyelocytes) > 1% indicates that a LEFT SHIFT is Present. MCH (RBC) [Entitic mass] 31.8 pg 27.0-32.0 [facility] Nucleated RBC/100 WBC (Bld) [Ratio] 0 % 0-5 [facility] MCHC Auto (RBC) [Mass/Vol]Or dered By: Ahmet Betancourt on 01-15-2023 MCHC (RBC) [Mass/Vol] 33.3 g/dL 32-36 [place] No Panel InformationOrdered By: Ahmet Betancourt on 01-15-2023 Estimated Creatinine Clearance Calc 61.85 ml/min [facility] Estimated GFR (MDRD) Amer 101 mL/min >60 [facility] Comment on above: GFR Calc Estimated GFR (MDRD) Non-Af Amer 83 mL/min >60 [facility] Comment on above: Non- GFR Calc Troponin I High Sensitivity 20 pg/mL 3.0-54.0 [facility] Comment on above: Please Note: [place] t Units and Gender Specific Reference Ranges. For more information see Policy Stat Procedure [place] High Sensitivity Troponin (TNIH) and attachments. Platelets bldOrdered By: Christine Betancourt on 01-15-2023 Platelets (Bld) [#/Vol] 168 10*3/uL 150-450 [facility] Serum or plasma calcium jorge urement (mass/volume)Ordered By: Ahmet Betancourt on 01-15-2023 Calcium [Mass/Vol] 8.6 mg/dL 8.5-10.1 [facility] Serum or plasma creatinine m easurement (mass/volume)Ordered By: Ahmet Betancourt on 01-15-2023 Creatinine [Mass/Vol] 0.74 mg/dL 0.55-1.02 [place] Comment on above: The validity of the calculated GFR & GFRAA in patients over 70 years has not been determined. Clinical correlation is essential. Serum or plasma urea nitroge n measurement (mass/volume)Ordered By: Ahmet Betancourt on 01-15-2023 Urea nitrogen [Mass/Vol] 8 mg/dL 7-18 [facility] Thin prep Papanicolaou smear with manual screeningOrdered By: Ahmet Betancourt on 01-15-2023 Thin prep Papanicolaou smear with manual screening 6 5-15 [facility] XR Foot - right AP and Later al and obliqueon 11-29-2022 IMPRESSION: 1. Mild soft tissue swelling over the dorsum of the forefoot. 2. Stable chronic deformities of the second and fifth PIP joints. 3. Small plantar calcaneal heel spur and posterior calcaneal enthesophyte. Border Measurer: YESY Transcribe Date/Time: Aug 21 2023 1:10P Dictated by : JOSE ENRIQUE MARTIN MD This examination was interpreted and the report reviewed and electronically signed by: JOSE ENRIQUE MARTIN MD on Nov 29 2022 1:16PM [facility] DIVISION OF RADIOLOGY * * *Final Report* * * DATE OF EXAM: Nov 29 2022 12:23PM WOX [id number] - XR FOOT 3V AP/LAT/OBL RT / PROCEDURE REASON: Foot pain, right * * * * Physician Interpretation * * * * EXAMINATION: RIGHT FOOT X-RAY SERIES HISTORY: Foot pain, right COMPARISON: 05/06/2020 TECHNIQUE: Upright AP, upright lateral and oblique views. RESULT: No acute fracture, dislocation or destructive changes. 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 Joint spaces and articular surfaces are otherwise preserved. Small plantar calcaneal heel spur and small posterior calcaneal enthesophyte. Small amount of soft tissue swelling over the dorsum of the forefoot. DIVISION OF RADIOLOGY Provider, [facility] - 11/29/2022 * * *Final Report* * * DATE OF EXAM: Nov 29 2022 12:23PM WOX [id number] - XR FOOT 3V AP/LAT/OBL RT / PROCEDURE REASON: Foot pain, right * * * * Physician Interpretation * * * * EXAMINATION: RIGHT FOOT X-RAY SERIES HISTORY: Foot pain, right COMPARISON: 05/06/2020 TECHNIQUE: Upright AP, upright lateral and oblique views. RESULT: No acute fracture, dislocation or destructive changes. 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 Joint spaces and articular surfaces are otherwise preserved. Small plantar calcaneal heel spur and small posterior calcaneal enthesophyte. Small amount of soft tissue swelling over the dorsum of the forefoot. IMPRESSION IMPRESSION: 1. Mild soft tissue swelling over the dorsum of the forefoot. 2. Stable chronic deformities of the second and fifth PIP joints. 3. Small plantar calcaneal heel spur and posterior calcaneal enthesophyte. Border Measurer: YESY Transcribe Date/Time: Nov 29 2022 1:10P Dictated by : JOSE ENRIQUE MARTIN MD This examination was interpreted and the report reviewed and electronically signed by: JOSE ENRIQUE MARTIN MD on Nov 29 2022 1:16PM [facility] Radiology Study observation (narrative) [facility] XR Foot - right AP and Later al and obliqueOrdered By: [facility] Provider on 11-29-2022 [facility] Microscopic observation Gram stain Nom (Vag fld)on 11-19-2022 Bacterial Vaginosis BACTERIAL VAGINOSIS RESULT: Stain results consistent with normal vaginal ravindra. [facility] Bacterial Vaginosis No organisms seen [facility] Bacterial Vaginosis No Polymorphonuclear Leukocytes [facility] XR Knee - right 4 [place] IMPRESSION: Osteoarthritis at both knees, more advanced at left knee. Right knee joint effusion. Border Measurer: [employer] Transcribe Date/Time: Sep 30 2022 12:46P Dictated by : Yara HERNANDEZ MD This examination was interpreted and the report reviewed and electronically signed by: Yara HERNANDEZ MD on Sep 30 2022 12:51PM EST DIVISION OF RADIOLOGY * * *Final Report* * * DATE [...] joint space narrowing and small tricompartmental osteophytes. DIVISION OF RADIOLOGY Provider, [facility] - 09/30/2022 * * *Final Report* * * DATE [...] joint space narrowing and small tricompartmental osteophytes. IMPRESSION IMPRESSION: Osteoarthritis at both knees, more advanced at left knee. Right knee joint effusion. Border Measurer: PSCB Transcribe Date/Time: Sep 30 2022 12:46P Dictated by : Yara HERNANDEZ MD This examination was interpreted and the report reviewed and electronically signed by: Yara HERNANDEZ MD on Sep 30 2022 12:51PM EST [facility] Radiology Study observation (narrative) [facility] XR Knee - right 4 ViewsOrder ed By: Ccf Provider on 09-30-2022 [facility] COVID-19 virus antigen assay Ordered By: ED PROVIDER on 06-10-2022 SARS-CoV-2 (COVID-19) Ag IA.rapid Ql (Resp) [facility] CBC W Auto Differential pane l (Bld)on 05-27-2022 Basophils (Bld) [#/Vol] 0.03 10*3/uL <0.11 k/uL [facility] Basophils/100 WBC (Bld) 0.6 % [facility] Differential cell count method Nom (Bld) Auto [facility] Eosinophils (Bld) [#/Vol] 0.11 10*3/uL <0.46 k/uL [facility] Eosinophils/100 WBC (Bld) 2.4 % [facility] Erythrocyte distribution width (RBC) [Ratio] 11.9 % 11.5 - 15.0 % [facility] Hematocrit (Bld) [Volume fraction] 40.7 % 36.0 - 46.0 % [facility] Hemoglobin (Bld) [Mass/Vol] 13.6 g/dL 11.5 - 15.5 g/dL [facility] Immature granulocytes (Bld) [#/Vol] <0.10 k/uL [facility] Immature granulocytes/100 WBC (Bld) 0.2 % [facility] Lymphocytes (Bld) [#/Vol] 2.34 10*3/uL 1.00 - 4.00 k/uL [facility] Lymphocytes/100 WBC (Bld) 50.2 % [facility] MCH (RBC) [Entitic mass] 31.5 pg 26.0 - 34.0 pg [facility] MCHC (RBC) [Mass/Vol] 33.4 g/dL 30.5 - 36.0 g/dL [facility] MCV (RBC) [Entitic vol] 94.2 fL 80.0 - 100.0 fL [facility] Monocytes (Bld) [#/Vol] 0.44 10*3/uL <0.87 k/uL [facility] Monocytes/100 WBC (Bld) 9.4 % [facility] Neutrophils (Bld) [#/Vol] 1.73 10*3/uL 1.45 - 7.50 k/uL [facility] Neutrophils/100 WBC (Bld) 37.2 % [facility] Nucleated RBC (Bld) [#/Vol] <0.01 k/uL [facility] Nucleated RBC/100 WBC (Bld) [Ratio] 0.0 /100 WBC [facility] Platelet mean volume (Bld) [Entitic vol] 9.5 fL 9.0 - 12.7 fL [facility] Platelets (Bld) [#/Vol] 157 10*3/uL 150 - 400 k/uL [facility] RBC (Bld) [#/Vol] 4.32 10*6/uL 3.90 - 5.2 0 m/uL [facility] WBC (Bld) [#/Vol] 4.66 10*3/uL 3.70 - 11. 00 k/uL [facility] Comprehensive metabolic 2000 panelon 05-27-2022 Albumin [Mass/Vol] 4.2 g/dL 3.9 - 4.9 g/dL Cl [facility] ALP [Catalytic activity/Vol] 78 U/L 34 - 123 U/L [facility] ALT [Catalytic activity/Vol] 21 U/L 7 - 38 U/L [facility] Anion gap [Moles/Vol] 11 mmol/L 9 - 18 mmol/L [facility] AST [Catalytic activity/Vol] 21 U/L 13 - 35 U/L [facility] Bilirubin [Mass/Vol] 0.6 mg/dL 0.2 - 1 .3 mg/dL [facility] Calcium [Mass/Vol] 9.6 mg/dL 8.5 - 10. 2 mg/dL [facility] Chloride [Moles/Vol] 103 mmol/L 97 - 10 5 mmol/L [facility] CO2 [Moles/Vol] 26 mmol/L 22 - 30 mmol/L [facility] Creatinine [Mass/Vol] 0.74 mg/dL 0.58 - 0.96 mg/dL [facility] Estimated Glomerular Filtration Rate 90 mL/min/1.73m >=60 mL/min/1.73m [facility] Glucose [Mass/Vol] 139 mg/dL High 74 - 99 mg/dL [facility] Potassium [Moles/Vol] 4.0 mmol/L 3.7 - 5.1 mmol/L [facility] Protein [Mass/Vol] 7.1 g/dL 6.3 - 8.0 g/dL [facility] Sodium [Moles/Vol] 140 mmol/L 136 - 144 mmol/L [facility] Urea nitrogen [Mass/Vol] 11 mg/dL 7 - 21 mg/dL [facility] LIPID PANEL, NONFASTINGon Cholesterol [Mass/Vol] 117 mg/dL <200 mg/dL [facility] HDL Cholesterol, Nonfasting 44 mg/dL >39 mg/dL [facility] LDL Cholesterol, Nonfasting 61 mg/dL <100 mg/dL [facility] LDL/HDL Ratio, Nonfasting 1.39 mg/dL <2.54 mg/dL [facility] Non HDL Cholesterol, Nonfasting 73 mg/dL <130 mg/dL [facility] Total Chol/HDL Ratio, Nonfasting 2.66 mg/dL <5.10 mg/dL [facility] Triglycerides, Nonfasting 59 mg/dL <150 mg/dL [facility] VLDL Cholesterol, Nonfasting 12 mg/dL <30 mg/dL [facility] MAGNESIUM BLDon 05-27-2022 Magnesium [Mass/Vol] 1.8 mg/dL 1.7 - 2 .3 mg/dL [facility] Absolute lymphocyte countOrd ered By: Dr. Agee on 05-10-2022 Lymphocytes Auto (Unsp spec) [#/Vol] 2.48 10*3/uL 0.83-4.51 [facility] Basophil percentageOrdered B y: Dr. Agee on 05-10-2022 Basophil percentage 0-5 SEEN /hpf 0-5 [facility] Basophils/100 WBC (Bld) 0.4 % 0-1 [facility] Bilirubin [Mass/Vol] 0.70 mg/dL 0.20-1.00 [facility] Comment on above: For patients on eltr ombopag therapy, use of Dimension [place] TBIL is not recommended. Chloride [Moles/Vol] 107 mmol/L 98-107 [facility] Eosinophils/100 WBC (Bld) 1.7 % 0-5 [facility] Glucose [Mass/Vol] 171 mg/dL 74-106 [facility] Comment on above: Fasting Glucose resu lt greater than or equal to 126 mg/dL suggests DIABETES MELLITUS per A.D.A. criteria. Neutrophils (Bld) [#/Vol] 1.7 10*3/uL 2.0-7.7 [facility] Neutrophils/100 WBC (Bld) 36.1 % 47-70 [facility] Potassium [Moles/Vol] 3.6 mmol/L 3.5-5.1 [place] Protein [Mass/Vol] 7.2 g/dL 6.4-8.2 [facility] Sodium [Moles/Vol] 143 mmol/L 136-145 [facility] WBC (Bld) [#/Vol] 4.6 10*3/uL 4.4-11.0 [facility] Bilirubin Test strip Ql (U)O rdered By: Dr. Agee on 05-10-2022 Bilirubin Ql (U) Negative Negative [facility] Blood erythrocytes count (nu mber/volume)Ordered By: Dr. Agee on 05-10-2022 RBC (Bld) [#/Vol] 4.41 10*6/uL 4.2-5.4 [facility] Blood hemoglobin measurement (mass/volume)Ordered By: Dr. Agee on 05-10-2022 Hemoglobin (Bld) [Mass/Vol] 13.7 g/dL 12.0-15.0 [facility] Blood lymphocytes/100 leukoc ytesOrdered By: Dr. Agee on 05-10-2022 Lymphocytes/100 WBC (Bld) 53.8 % 19-41 [facility] Blood monocytes/100 leukocyt esOrdered By: Dr. Agee on 05-10-2022 Monocytes/100 WBC (Bld) 7.8 % 0-10 [facility] Blood platelet mean volumeOr dered By: Dr. Agee on 05-10-2022 Platelet mean volume (Bld) [Entitic vol] 8.7 fL 6.2-12.0 [facility] Determination of erythrocyte mean corpuscular volume (MCV)Ordered By: Dr. Agee on 05-10-2022 MCV (RBC) [Entitic vol] 93.9 fL 81-99 [facility] Direct bilirubinOrdered By: Dr. Agee on 05-10-2022 Bilirubin.direct [Mass/Vol] 0.22 mg/dL 0.00-0.30 [facility] Hematocrit Auto (Bld) [Volum e fraction]Ordered By: Dr. Agee on 05-10-2022 Hematocrit (Bld) [Volume fraction] 41.4 % 37-47 [facility] Ketones Test strip Ql (U)Ord ered By: Dr. Agee on 05-10-2022 Ketones Ql (U) Negative Negative [facility] Laboratory - Chemistry and C hemistry - challengeOrdered By: Dr. Agee on 05-10-2022 ALP [Catalytic activity/Vol] 82 U/L 45-117 [facility] ALT [Catalytic activity/Vol] 27 U/L 13-56 [facility] CO2 [Moles/Vol] 29.0 mmol/L 21.0-32.0 [facility] Globulin (S) [Mass/Vol] 3.7 g/dL 2.2-4.2 [facility] Lipase [Catalytic activity/Vol] 92 U/L 73-393 [facility] Urea nitrogen/Creatinine [Mass ratio] 14.6 mg/mg 10-20 [facility] Laboratory - Hematology and Cell countsOrdered By: Dr. Agee on 05-10-2022 Erythrocyte distribution width (RBC) [Entitic vol] 42.2 fL 35.1-43.9 [facility] Erythrocyte distribution width (RBC) [Ratio] 12.1 % 11.6-14.6 [facility] Immature granulocytes/100 WBC (Bld) 0.200 % 0.0-0.9 [facility] Comment on above: IG% - Immature Granu locytes (promyelocytes, myelocytes and metamyelocytes) > 1% indicates that a LEFT SHIFT is Present. MCH (RBC) [Entitic mass] 31.1 pg 27.0-32.0 [facility] Nucleated RBC/100 WBC (Bld) [Ratio] 0 % 0-5 [facility] MCHC Auto (RBC) [Mass/Vol]Or dered By: Dr. Agee on 05-10-2022 MCHC (RBC) [Mass/Vol] 33.1 g/dL 32-36 [place] Mucus LM Ql (Urine sed)Order ed By: Dr. Agee on 05-10-2022 Mucus Ql (Urine sed) 0 SEEN /hpf [place] Nitrite Test strip Ql (U)Ord ered By: Dr. Agee on 05-10-2022 Nitrite Ql (U) Negative Negative [facility] No Panel InformationOrdered By: Dr. Agee on 05-10-2022 Estimated Creatinine Clearance Calc 76.45 ml/min [facility] Estimated GFR (MDRD) Amer 89 mL/min >60 [facility] Comment on above: GFR Calc Estimated GFR (MDRD) Non-Af Amer 74 mL/min >60 [facility] Comment on above: Non- GFR Calc Platelets bldOrdered By: Dr. Agee on 05-10-2022 Platelets (Bld) [#/Vol] 206 10*3/uL 150-450 [facility] Protein Test strip Ql (U)Ord ered By: Dr. Agee on 05-10-2022 Protein Ql (U) 30 mg/dl Negative [facility] Serum or plasma albumin jorge urement (mass/volume)Ordered By: Dr. Agee on 05-10-2022 Albumin [Mass/Vol] 3.5 g/dL 3.2-5.0 [facility] Serum or plasma calcium jorge urement (mass/volume)Ordered By: Dr. Agee on 05-10-2022 Calcium [Mass/Vol] 8.8 mg/dL 8.5-10.1 [facility] Serum or plasma creatinine m easurement (mass/volume)Ordered By: Dr. Agee on 05-10-2022 Creatinine [Mass/Vol] 0.82 mg/dL 0.55-1.02 [place] Comment on above: The validity of the calculated GFR & GFRAA in patients over 70 years has not been determined. Clinical correlation is essential. Serum or plasma urea nitroge n measurement (mass/volume)Ordered By: Dr. Agee on 05-10-2022 Urea nitrogen [Mass/Vol] 12 mg/dL 7-18 [facility] Squamous epithelial cells de tection in urine sediment by light microscopyOrdered By: Dr. Agee on 05-10-2022 Epithelial cells.squamous LM Ql (Urine sed) 0-5 SEEN /hpf 5-10 [facility] Thin prep Papanicolaou smear with manual screeningOrdered By: Dr. Agee on 05-10-2022 Thin prep Papanicolaou smear with manual screening 20 U/L 15-37 [facility] Thin prep Papanicolaou smear with manual screening 7 5-15 [facility] Urine blood detectionOrdered By: Dr. Agee on 05-10-2022 RBC Ql (U) 10 /ul Negative [facility] RBC Ql (U) 0 SEEN /hpf 0-5 [facility] Urine clarityOrdered By: Dr. Agee on 05-10-2022 Clarity (U) Clear Clear [facility] Urine color determinationOrd ered By: Dr. Agee on 05-10-2022 Color (U) Yellow Yellow [facility] Urine glucose detectionOrder ed By: Dr. Agee on 05-10-2022 Glucose Ql (U) Normal mg/dl Normal [facility] Urine leukocyte esterase det ection by dipstickOrdered By: Dr. Agee on 05-10-2022 Leukocyte esterase Test strip Ql (U) Negative Negative [facility] Urine pHOrdered By: Dr. Agee o n 05-10-2022 pH (U) 6.0 [pH] 5.0 - 8.0 [facility] Urine sediment bacteria coun t by microscopy (number/high power field)Ordered By: Dr. Agee on 05-10-2022 Bacteria LM.HPF (Urine sed) [#/Area] 0 /[HPF] None Seen [facility] Urine specific gravity measu rementOrdered By: Dr. Agee on 05-10-2022 Specific gravity (U) [Rel density] 1.020 1.002-1.030 [facility] Urobilinogen Auto test strip Ql (U)Ordered By: Dr. Agee on 05-10-2022 Urobilinogen Ql (U) Normal mg/dl Normal [place] TERESE SCREENING W Luci 12-11 [facility] No Panel Informationon 10-08 [facility] Final Surgical Pathology Rep ludin 09-30-2021 Final Surgical Pathology Report . Pathology Reports Accession: Collected Date/Time: Received Date/Time: Pathologist: [id number] 09/28/2021 10:15 EDT 09/29/2021 10:13 EDT ESTRELLITA BRENNER MD Final Surgical Pathology Report DIAGNOSIS: GASTRIC ANTRUM BIOPSIES: CHRONIC INACTIVE GASTRITIS. NEGATIVE FOR HELICOBACTER PYLORI OR INTESTINAL METAPLASIA. COMMENT: [facility] - [id number] CLINICAL INFORMATION: Procedure: EGD WITH BIOPSIES Preoperative diagnosis: GASTROESOPHAGEAL REFLUX DISEASE, NAUSEA, VOMITING Postoperative diagnosis: SAME SPECIMEN: A GASTRIC ANTRUM BIOPSIES - R/O H. PYLORI GROSS DESCRIPTION: A. Received in formalin, labeled with the patients name, Case #[id number], and gastric antrum biopsies 2 matute soft tissue fragments measuring 0.1 and 0.3 cm. TS -1 Dictated by UNA ESPINOZA MICROSCOPIC DESCRIPTION: Slides reviewed. Electronically Signed by Pathology Report verified by [facility] Electronically signed by ESTRELLITA BRENNER Sign out Date: 09/30/2021 17:29 Performing Lab: [facility], [address] [place] [address] ([place]) XR HAND GENERAL 3V PA/LAT/OB L RIGHTon 09-01-2021 [facility] XR Hand - right PA and Later al and Obliqueon 09-01-2021 * * *Final Report* * * DATE OF EXAM: Sep 01 2021 12:48PM WOX 5346 - XR HAND 3V PA/LAT/OBL RT / PROCEDURE REASON: Hand pain, right * * * * Physician Interpretation * * * * Indication: Right hand pain Comparison: None PA, lateral and oblique views of the right hand are obtained. There is normal architecture and mineralization of the bones. There is no acute fracture or dislocation. Joint spaces are maintained. No radiodense foreign body. Impression: 1. No acute fracture or dislocation. Border Measurer: PSCMeagan Transcribe Date/Time: Sep 01 2021 12:53P Dictated by : GRACY WONG MD This examination was interpreted and the report reviewed and electronically signed by: GRACY WONG MD on Sep 01 2021 12:54PM EST [email or web address] N OF RADIOLOGY Provider, Adrian Kay - 09/01/2021 * * *Final Report* * * DATE OF EXAM: Sep 01 2021 12:48PM WOX 5346 - XR HAND 3V PA/LAT/OBL RT / PROCEDURE REASON: Hand pain, right * * * * Physician Interpretation * * * * Indication: Right hand pain Comparison: None PA, lateral and oblique views of the right hand are obtained. There is normal architecture and mineralization of the bones. There is no acute fracture or dislocation. Joint spaces are maintained. No radiodense foreign body. Impression: 1. No acute fracture or dislocation. Border Measurer: YESY Transcribe Date/Time: Sep 01 2021 12:53P Dictated by : GRACY WONG MD This examination was interpreted and the report reviewed and electronically signed by: GRACY WONG MD on Sep 01 2021 12:54PM EST [facility] Radiology Study observation (narrative) [facility] XR Hand - right PA and Later al and ObliqueOrdered By: Ccf Provider on 09-01-2021 [facility] Basophil percentageon 2021 Bilirubin [Mass/Vol] 0.50 mg/dL 0.20-1.00 [facility] Work Phone: Comment on above: For patients on eltr ombopag therapy, use of Dimension [place] TBIL is not recommended. Cholesterol [Mass/Vol] 128 mg/dL <200 [facility] Work Phone: Comment on above: <200 mg/dL Desirable 200-240 mg/dL Borderline >240 mg/dL High Risk Protein [Mass/Vol] 6.9 g/dL 6.4-8.2 [facility] Work Phone: Triglyceride [Mass/Vol] 144 mg/dL [facility] Work Phone: Comment on above: The drugs N-Acetylcy steine and Metamizole may falsely depress this assay.Serum Triglycerides Reference Interval Normal <150 mg/dL Borderline high 150 - 199 mg/dL High 200 - 499 mg/dL Very High > or = 500 mg/dL Direct bilirubinon Bilirubin.direct [Mass/Vol] 0.14 mg/dL 0.00-0.30 [facility] Work Phone: Laboratory - Chemistry and C hemistry - challengeon 08-15-2021 ALP [Catalytic activity/Vol] 69 U/L 45-117 [facility] Work Phone: ALT [Catalytic activity/Vol] 26 U/L 13-56 [facility] Work Phone: Globulin (S) [Mass/Vol] 3.3 g/dL 2.2-4.2 [facility] Work Phone: Serum or plasma albumin jorge urement (mass/volume)on 08-15-2021 Albumin [Mass/Vol] 3.6 g/dL 3.2-5.0 [facility] Work Phone: Serum or plasma cholesterol in HDL measurement (mass/volume)on 08-15-2021 Cholesterol in HDL [Mass/Vol] 48 mg/dL [facility] Work Phone: Comment on above: The drugs N-Acetylcy steine and Metamizole may falsely depress this assay. Reference Range HDL <40 mg/dL Low HDL Cholesterol HDL >or= 60 mg/dL High HDL Cholesterol Serum or plasma cholesterol in VLDL measurement (mass/volume)on 08-15-2021 Cholesterol in VLDL [Mass/Vol] 29 mg/dL 5-40 [facility] Work Phone: Serum or plasma low density lipoprotein (LDL) cholesterol measurement (mass/volume)on 08-15-2021 Cholesterol in LDL [Mass/Vol] 51 mg/dL 0-130 [facility] Work Phone: Thin prep Papanicolaou smear with manual screeningon 08-15-2021 Thin prep Papanicolaou smear with manual screening 20 U/L 15-37 [facility] Work Phone: Stool Helicobacter pylori an tigen detection by immunoassayon 07-15-2021 H. pylori Ag IA Ql (Stl) Negative Negative [facility] Work Phone: Comment on above: Performed at: - [address] [id number] Director: Leona Wakefield MD, Phone: [phone] Absolute lymphocyte counton 06-03-2021 Lymphocytes Auto (Unsp spec) [#/Vol] 1.71 10*3/uL 0.83-4.51 [facility] Work Phone: Basophil percentageon 2021 Basophils/100 WBC (Bld) 0.6 % 0-1 [facility] Work Phone: Bilirubin [Mass/Vol] 0.40 mg/dL 0.20-1.00 [facility] Work Phone: Comment on above: For patients on eltr ombopag therapy, use of Dimension [place] TBIL is not recommended. Chloride [Moles/Vol] 108 mmol/L 98-107 [facility] Work Phone: Cholesterol [Mass/Vol] 196 mg/dL <200 [facility] Work Phone: Comment on above: <200 mg/dL Desirable 200-240 mg/dL Borderline >240 mg/dL High Risk Eosinophils/100 WBC (Bld) 2.2 % 0-5 [facility] Work Phone: Glucose [Mass/Vol] 133 mg/dL 74-106 [facility] Work Phone: Comment on above: Fasting Glucose resu lt greater than or equal to 126 mg/dL suggests DIABETES MELLITUS per A.D.A. criteria. Neutrophils (Bld) [#/Vol] 1.4 10*3/uL 2.0-7.7 [facility] Work Phone: Neutrophils/100 WBC (Bld) 39.9 % 47-70 [facility] Work Phone: Potassium [Moles/Vol] 3.5 mmol/L 3.5-5.1 [place] Work Phone: Protein [Mass/Vol] 6.1 g/dL 6.4-8.2 [facility] Work Phone: Sodium [Moles/Vol] 140 mmol/L 136-145 [facility] Work Phone: Triglyceride [Mass/Vol] 139 mg/dL [facility] Work Phone: Comment on above: The drugs N-Acetylcy steine and Metamizole may falsely depress this assay.Serum Triglycerides Reference Interval Normal <150 mg/dL Borderline high 150 - 199 mg/dL High 200 - 499 mg/dL Very High > or = 500 mg/dL WBC (Bld) [#/Vol] 3.6 10*3/uL 4.4-11.0 [facility] Work Phone: Blood erythrocytes count (nu mber/volume)on 06-03-2021 RBC (Bld) [#/Vol] 3.52 10*6/uL 4.2-5.4 [facility] Work Phone: Blood hemoglobin measurement (mass/volume)on 06-03-2021 Hemoglobin (Bld) [Mass/Vol] 11.3 g/dL 12.0-15.0 [facility] Work Phone: Blood lymphocytes/100 leukoc yteson 06-03-2021 Lymphocytes/100 WBC (Bld) 48.0 % 19-41 [facility] Work Phone: Blood monocytes/100 leukocyt eson 06-03-2021 Monocytes/100 WBC (Bld) 9.3 % 0-10 [facility] Work Phone: Blood platelet mean volumeon 06-03-2021 Platelet mean volume (Bld) [Entitic vol] 9.0 fL 6.2-12.0 [facility] Work Phone: Determination of erythrocyte mean corpuscular volume (MCV)on 06-03-2021 MCV (RBC) [Entitic vol] 92.6 fL 81-99 [facility] Work Phone: Hematocrit Auto (Bld) [Volum e fraction]on 06-03-2021 Hematocrit (Bld) [Volume fraction] 32.6 % 37-47 [facility] Work Phone: Laboratory - Chemistry and C hemistry - challengeon 06-03-2021 ALP [Catalytic activity/Vol] 52 U/L 45-117 [facility] Work Phone: ALT [Catalytic activity/Vol] 22 U/L 13-56 [facility] Work Phone: CO2 [Moles/Vol] 28.0 mmol/L 21.0-32.0 [facility] Work Phone: Globulin (S) [Mass/Vol] 3.2 g/dL 2.2-4.2 [facility] Work Phone: Urea nitrogen/Creatinine [Mass ratio] 16.3 mg/mg 10-20 [facility] Work Phone: Laboratory - Hematology and Cell countson 06-03-2021 Erythrocyte distribution width (RBC) [Entitic vol] 45.1 fL 35.1-43.9 [facility] Work Phone: Erythrocyte distribution width (RBC) [Ratio] 13.3 % 11.6-14.6 [facility] Work Phone: Immature granulocytes/100 WBC (Bld) 0.000 % 0.0-0.9 [facility] Work Phone: Comment on above: IG% - Immature Granu locytes (promyelocytes, myelocytes and metamyelocytes) > 1% indicates that a LEFT SHIFT is Present. MCH (RBC) [Entitic mass] 32.1 pg 27.0-32.0 [facility] Work Phone: Nucleated RBC/100 WBC (Bld) [Ratio] 0 % 0-5 [facility] Work Phone: MCHC Auto (RBC) [Mass/Vol]on 06-03-2021 MCHC (RBC) [Mass/Vol] 34.7 g/dL 32-36 [facility] Work Phone: No Panel Informationon 06-03 Estimated Creatinine Clearance Calc 85.84 ml/min [facility] Work Phone: Estimated GFR (MDRD) Amer 102 mL/min >60 [facility] Work Phone: Comment on above: GFR Calc Estimated GFR (MDRD) Non-Af Amer 84 mL/min >60 [facility] Work Phone: Comment on above: Non- GFR Calc Platelets bldon 06-03-2021 Platelets (Bld) [#/Vol] 137 10*3/uL 150-450 [facility] Work Phone: Serum or plasma albumin jorge urement (mass/volume)on 06-03-2021 Albumin [Mass/Vol] 2.9 g/dL 3.2-5.0 [facility] Work Phone: Serum or plasma albumin/glob ulin mass ratioon 06-03-2021 Albumin/Globulin [Mass ratio] 0.9 {ratio} 0.9-2.4 [facility] Work Phone: Serum or plasma calcium jorge urement (mass/volume)on 06-03-2021 Calcium [Mass/Vol] 8.6 mg/dL 8.5-10.1 [facility] Work Phone: Serum or plasma cholesterol in HDL measurement (mass/volume)on 06-03-2021 Cholesterol in HDL [Mass/Vol] 45 mg/dL [facility] Work Phone: Comment on above: The drugs N-Acetylcy steine and Metamizole may falsely depress this assay. Reference Range HDL <40 mg/dL Low HDL Cholesterol HDL >or= 60 mg/dL High HDL Cholesterol Serum or plasma cholesterol in VLDL measurement (mass/volume)on 06-03-2021 Cholesterol in VLDL [Mass/Vol] 28 mg/dL 5-40 [facility] Work Phone: Serum or plasma creatinine m easurement (mass/volume)on 06-03-2021 Creatinine [Mass/Vol] 0.74 mg/dL 0.55-1.02 [place] Work Phone: Comment on above: The validity of the calculated GFR & GFRAA in patients over 70 years has not been determined. Clinical correlation is essential. Serum or plasma low density lipoprotein (LDL) cholesterol measurement (mass/volume)on 06-03-2021 Cholesterol in LDL [Mass/Vol] 123 mg/dL 0-130 [facility] Work Phone: Serum or plasma urea nitroge n measurement (mass/volume)on 06-03-2021 Urea nitrogen [Mass/Vol] 12 mg/dL 7-18 [facility] Work Phone: Thin prep Papanicolaou smear with manual screeningon 06-03-2021 Thin prep Papanicolaou smear with manual screening 15 U/L 15-37 [facility] Work Phone: Thin prep Papanicolaou smear with manual screening 4 5-15 [facility] Work Phone: Basophil percentageon 2021 Chloride [Moles/Vol] 104 mmol/L 98-107 [facility] Work Phone: Glucose [Mass/Vol] 98 mg/dL 74-106 [facility] Work Phone: Potassium [Moles/Vol] 3.6 mmol/L 3.5-5.1 [place] Work Phone: Sodium [Moles/Vol] 139 mmol/L 136-145 [facility] Work Phone: WBC (Bld) [#/Vol] 5.1 10*3/uL 4.4-11.0 [facility] Work Phone: Blood erythrocytes count (nu mber/volume)on 06-02-2021 RBC (Bld) [#/Vol] 3.97 10*6/uL 4.2-5.4 [facility] Work Phone: Blood hemoglobin measurement (mass/volume)on 06-02-2021 Hemoglobin (Bld) [Mass/Vol] 12.5 g/dL 12.0-15.0 [facility] Work Phone: Blood platelet mean volumeon 06-02-2021 Platelet mean volume (Bld) [Entitic vol] 9.2 fL 6.2-12.0 [facility] Work Phone: Determination of erythrocyte mean corpuscular volume (MCV)on 06-02-2021 MCV (RBC) [Entitic vol] 92.2 fL 81-99 [facility] Work Phone: Hematocrit Auto (Bld) [Volum e fraction]on 06-02-2021 Hematocrit (Bld) [Volume fraction] 36.6 % 37-47 [facility] Work Phone: INR in Blood by Coagulation assayon 06-02-2021 INR Coag (Bld) [Relative time] 1.1 {INR} [facility] Work Phone: Laboratory - Chemistry and C hemistry - challengeon 06-02-2021 Magnesium [Mass/Vol] 2.0 mg/dL 1.6-2.6 [facility] Work Phone: CO2 [Moles/Vol] 28.0 mmol/L 21.0-32.0 [facility] Work Phone: Urea nitrogen/Creatinine [Mass ratio] 22.6 mg/mg 10-20 [facility] Work Phone: Laboratory - Coagulationon 0 06-02-2021 aPTT Coag (Bld) [Time] 41.5 s 24.1-36.2 [facility] Work Phone: PT Coag (PPP) [Time] 13.8 s 11.7-14.9 [facility] Work Phone: Laboratory - Hematology and Cell countson 06-02-2021 Erythrocyte distribution width (RBC) [Entitic vol] 44.4 fL 35.1-43.9 [facility] Work Phone: Erythrocyte distribution width (RBC) [Ratio] 13.2 % 11.6-14.6 [facility] Work Phone: MCH (RBC) [Entitic mass] 31.5 pg 27.0-32.0 [facility] Work Phone: MCHC Auto (RBC) [Mass/Vol]on 06-02-2021 MCHC (RBC) [Mass/Vol] 34.2 g/dL 32-36 [place] Work Phone: No Panel Informationon 06-02 Troponin I High Sensitivity 22 pg/mL 3.0-54.0 [facility] Work Phone: Comment on above: Please Note: [place] t Units and Gender Specific Reference Ranges. For more information see Policy Stat Procedure [place] High Sensitivity Troponin (TNIH) and attachments. Thyroid Stimulating Hormone (TSH) 1.30 uIU/mL 0.358-3.74 [facility] Work Phone: Estimated GFR (MDRD) Amer 93 mL/min >60 [facility] Work Phone: Comment on above: GFR Calc Estimated GFR (MDRD) Non-Af Amer 77 mL/min >60 [facility] Work Phone: Comment on above: Non- GFR Calc Platelets bldon 06-02-2021 Platelets (Bld) [#/Vol] 163 10*3/uL 150-450 [facility] Work Phone: Serum or plasma calcium jorge urement (mass/volume)on 06-02-2021 Calcium [Mass/Vol] 9.0 mg/dL 8.5-10.1 [facility] Work Phone: Serum or plasma creatinine m easurement (mass/volume)on 06-02-2021 Creatinine [Mass/Vol] 0.80 mg/dL 0.55-1.02 [place] Work Phone: Comment on above: The validity of the calculated GFR & GFRAA in patients over 70 years has not been determined. Clinical correlation is essential. Serum or plasma urea nitroge n measurement (mass/volume)on 06-02-2021 Urea nitrogen [Mass/Vol] 18 mg/dL 7-18 [facility] Work Phone: Thin prep Papanicolaou smear with manual screeningon 06-02-2021 Thin prep Papanicolaou smear with manual screening 7 5-15 [facility] Work Phone: Absolute lymphocyte counton 04-20-2021 Lymphocytes Auto (Unsp spec) [#/Vol] 0.98 10*3/uL 0.83-4.51 [facility] Work Phone: Basophil percentageon 2021 Basophils/100 WBC (Bld) 0.4 % 0-1 [facility] Work Phone: Bilirubin [Mass/Vol] 0.60 mg/dL 0.20-1.00 [facility] Work Phone: Comment on above: For patients on eltr ombopag therapy, use of Dimension [place] TBIL is not recommended. Chloride [Moles/Vol] 102 mmol/L 98-107 [facility] Work Phone: Eosinophils/100 WBC (Bld) 0.0 % 0-5 [facility] Work Phone: Glucose [Mass/Vol] 118 mg/dL 74-106 [facility] Work Phone: Comment on above: Fasting Glucose resu lt from 100 to 125 mg/dL suggests IMPAIRED HOMEOSTASIS per A.D.A. criteria.Please note revised GLUCOSE reference range effective 2017. Neutrophils (Bld) [#/Vol] 1.5 10*3/uL 2.0-7.7 [facility] Work Phone: Neutrophils/100 WBC (Bld) 54.6 % 47-70 [facility] Work Phone: Potassium [Moles/Vol] 4.0 mmol/L 3.5-5.1 [place] Work Phone: Protein [Mass/Vol] 7.0 g/dL 6.4-8.2 [facility] Work Phone: Sodium [Moles/Vol] 138 mmol/L 136-145 [facility] Work Phone: WBC (Bld) [#/Vol] 2.7 10*3/uL 4.4-11.0 [facility] Work Phone: Blood erythrocytes count (nu mber/volume)on 04-20-2021 RBC (Bld) [#/Vol] 3.95 10*6/uL 4.2-5.4 [facility] Work Phone: Blood hemoglobin measurement (mass/volume)on 04-20-2021 Hemoglobin (Bld) [Mass/Vol] 12.1 g/dL 12.0-15.0 [facility] Work Phone: Blood lymphocytes/100 leukoc yteson 04-20-2021 Lymphocytes/100 WBC (Bld) 35.9 % 19-41 [facility] Work Phone: Blood manual differential co mment interpretation (narrative result)on 04-20-2021 Manual differential comment Roney (Bld) [Interp] SCANNED [facility] Work Phone: Blood monocytes/100 leukocyt eson 04-20-2021 Monocytes/100 WBC (Bld) 8.4 % 0-10 [facility] Work Phone: Blood platelet mean volumeon 04-20-2021 Platelet mean volume (Bld) [Entitic vol] 9.0 fL 6.2-12.0 [facility] Work Phone: Determination of erythrocyte mean corpuscular volume (MCV)on 04-20-2021 MCV (RBC) [Entitic vol] 92.7 fL 81-99 [facility] Work Phone: Hematocrit Auto (Bld) [Volum e fraction]on 04-20-2021 Hematocrit (Bld) [Volume fraction] 36.6 % 37-47 [facility] Work Phone: Laboratory - Chemistry and C hemistry - challengeon 04-20-2021 ALP [Catalytic activity/Vol] 57 U/L 45-117 [facility] Work Phone: ALT [Catalytic activity/Vol] 39 U/L 13-56 [facility] Work Phone: CO2 [Moles/Vol] 31.0 mmol/L 21.0-32.0 [facility] Work Phone: Globulin (S) [Mass/Vol] 4.3 g/dL 2.2-4.2 [facility] Work Phone: Urea nitrogen/Creatinine [Mass ratio] 11.7 mg/mg 10-20 [facility] Work Phone: Laboratory - Hematology and Cell countson 04-20-2021 Erythrocyte distribution width (RBC) [Entitic vol] 39.8 fL 35.1-43.9 [facility] Work Phone: Erythrocyte distribution width (RBC) [Ratio] 11.7 % 11.6-14.6 [facility] Work Phone: Immature granulocytes/100 WBC (Bld) 0.700 % 0.0-0.9 [facility] Work Phone: Comment on above: IG% - Immature Granu locytes (promyelocytes, myelocytes and metamyelocytes) > 1% indicates that a LEFT SHIFT is Present. MCH (RBC) [Entitic mass] 30.6 pg 27.0-32.0 [facility] Work Phone: Nucleated RBC/100 WBC (Bld) [Ratio] 0 % 0-5 [facility] Work Phone: MCHC Auto (RBC) [Mass/Vol]on 04-20-2021 MCHC (RBC) [Mass/Vol] 33.1 g/dL 32-36 [place] Work Phone: No Panel Informationon 04-20 Atypical Lymphocytes 1+ % [facility] Work Phone: Estimated Creatinine Clearance Calc 102.43 ml/min [facility] Work Phone: Estimated GFR (MDRD) Amer 130 mL/min >60 [facility] Work Phone: Comment on above: GFR Calc Estimated GFR (MDRD) Non-Af Amer 107 mL/min >60 [facility] Work Phone: Comment on above: Non- GFR Calc Platelets bldon 04-20-2021 Platelets (Bld) [#/Vol] 192 10*3/uL 150-450 [facility] Work Phone: Serum or plasma albumin jorge urement (mass/volume)on 04-20-2021 Albumin [Mass/Vol] 2.7 g/dL 3.2-5.0 [facility] Work Phone: Serum or plasma albumin/glob ulin mass ratioon 04-20-2021 Albumin/Globulin [Mass ratio] 0.6 {ratio} 0.9-2.4 [facility] Work Phone: Serum or plasma calcium jorge urement (mass/volume)on 04-20-2021 Calcium [Mass/Vol] 8.7 mg/dL 8.5-10.1 [facility] Work Phone: Serum or plasma creatinine m easurement (mass/volume)on 04-20-2021 Creatinine [Mass/Vol] 0.60 mg/dL 0.55-1.02 [place] Work Phone: Comment on above: The validity of the calculated GFR & GFRAA in patients over 70 years has not been determined. Clinical correlation is essential. Serum or plasma urea nitroge n measurement (mass/volume)on 04-20-2021 Urea nitrogen [Mass/Vol] 7 mg/dL 7-18 [facility] Work Phone: Thin prep Papanicolaou smear with manual screeningon 04-20-2021 Thin prep Papanicolaou smear with manual screening 35 U/L 15-37 [facility] Work Phone: Thin prep Papanicolaou smear with manual screening 5 5-15 [facility] Work Phone: Basophil percentageon 2021 Basophil percentage 0 SEEN /hpf [facility] Work Phone: Bilirubin Test strip Ql (U)o n 04-19-2021 Bilirubin Ql (U) Negative Negative [facility] Work Phone: Ketones Test strip Ql (U)on 04-19-2021 Ketones Ql (U) 15 mg/dl Negative [facility] Work Phone: Laboratory - Chemistry and C hemistry - challengeon 04-19-2021 Magnesium [Mass/Vol] 2.3 mg/dL 1.6-2.6 [facility] Work Phone: Mucus LM Ql (Urine sed)on Mucus Ql (Urine sed) 0 SEEN /hpf [place] Work Phone: Nitrite Test strip Ql (U)on 04-19-2021 Nitrite Ql (U) Negative Negative [facility] Work Phone: No Panel Informationon 04-19 D-Dimer Quantitative (PE/DVT) 1.89 FEU/ug/m 0.27-0.49 [facility] Work Phone: Comment on above: D-Dimer ELEVATED (>0 .49): Additional studies and clinicalassessments are indicated to conclude diagnosis of:Deep Vein Thrombosis (DVT) or Pulmonary Embolism (PE) Troponin I High Sensitivity 24 pg/mL 3.0-54.0 [facility] Work Phone: Comment on above: Please Note: [place] t Units and Gender Specific Reference Ranges. For more information see Policy Stat Procedure [place] High Sensitivity Troponin (TNIH) and attachments. Protein Test strip Ql (U)on 04-19-2021 Protein Ql (U) 30 mg/dl Negative [facility] Work Phone: Squamous epithelial cells de tection in urine sediment by light microscopyon 04-19-2021 Epithelial cells.squamous LM Ql (Urine sed) 0 SEEN /hpf [facility] Work Phone: Urine blood detectionon RBC Ql (U) 10 /ul Negative [facility] Work Phone: RBC Ql (U) 0 SEEN /hpf [facility] Work Phone: Urine clarityon 04-19-2021 Clarity (U) Clear Clear [facility] Work Phone: Urine color determinationon 04-19-2021 Color (U) Straw Yellow [facility] Work Phone: Urine glucose detectionon Glucose Ql (U) Normal mg/dl Normal [facility] Work Phone: Urine leukocyte esterase det ection by dipstickon 04-19-2021 Leukocyte esterase Test strip Ql (U) Negative Negative [facility] Work Phone: Urine pHon 04-19-2021 pH (U) 7.0 [pH] [facility] Work Phone: Urine sediment bacteria coun t by microscopy (number/high power field)on 04-19-2021 Bacteria LM.HPF (Urine sed) [#/Area] 0 /[HPF] None Seen [facility] Work Phone: Urine specific gravity measu rementon 04-19-2021 Specific gravity (U) [Rel density] 1.010 [facility] Work Phone: Urobilinogen Auto test strip Ql (U)on 04-19-2021 Urobilinogen Ql (U) Normal mg/dl Normal [place] Work Phone: No Panel Informationon 04-10 SARS-CoV-2 Antigen (Rapid) SARS-CoV-2 (COVID 19) [facility] Work Phone: CBC WITH AUTO DIFFERENTIALon 08-26-2019 Basophils (Bld) [#/Vol] 0.02 10*3/uL [facility] Basophils/100 WBC (Bld) 0.3 % [facility] Eosinophils (Bld) [#/Vol] 0.40 10*3/uL [facility] Eosinophils/100 WBC (Bld) 6.6 % [facility] Erythrocyte distribution width (RBC) [Entitic vol] 12.1 % 11.6 - 14.8 % [facility] Hematocrit (Bld) [Volume fraction] 38.6 % 36 - 46 % [facility] Hemoglobin (Bld) [Mass/Vol] 12.5 g/dL 12 - 16 g/dL [facility] Immature granulocytes (Bld) [#/Vol] 0.02 10*3/uL [facility] Immature granulocytes/100 WBC (Bld) 0.30 % [facility] Comment on above: The IG parameter is the percentage of metamyelocytes, myelocytes, and promyelocytes. Interpretation and review of laboratory results Abnormal [facility] Lymphocytes (Bld) [#/Vol] 2.54 10*3/uL [facility] Lymphocytes/100 WBC (Bld) 41.8 % [facility] MCH (RBC) [Entitic mass] 31.5 pg 26 - 34 pg [facility] MCHC (RBC) [Mass/Vol] 32.4 g/dL 31 - 37 g/dL [facility] MCV (RBC) [Entitic vol] 97.2 fL 80 - 100 fL [facility] Monocytes (Bld) [#/Vol] 0.40 10*3/uL [facility] Monocytes/100 WBC (Bld) 6.6 % [facility] Neutrophils (Bld) [#/Vol] 2.70 10*3/uL [facility] Neutrophils/100 WBC (Bld) 44.4 % [facility] Nucleated RBC (Bld) [#/Vol] 0.00 10*3/uL [facility] Nucleated RBC/100 WBC (Bld) [Ratio] 0.0 % [facility] Platelet mean volume (Bld) [Entitic vol] 9.0 fL 9 - 15.5 fL [facility] Platelets (Bld) [#/Vol] 174 10*3/uL [facility] RBC (Bld) [#/Vol] 3.97 10*6/uL Low [facility] WBC (Bld) [#/Vol] 6.08 10*3/uL [facility] Chem 7on 08-26-2019 Anion gap [Moles/Vol] 8 mmol/L Low 10 - 20 mmol/L [facility] Chloride [Moles/Vol] 107 mmol/L 98 - 10 8 mmol/L [facility] Creatinine [Mass/Vol] 0.82 mg/dL 0.60 - 1.20 [facility] GFR/1.73 sq M predicted among non-blacks MDRD (S/P/Bld) [Vol rate/Area] The eGFR should be used for monitoring renal function only and not for medication dosing. [facility] GFR/1.73 sq M.predicted CKD-EPI (S/P/Bld) [Vol rate/Area] 89 >=60 mL/min/1.73 m2 [facility] Glucose [Mass/Vol] 107 mg/dL High 65 - 99 mg/dL [facility] HCO3 [Moles/Vol] 28 mmol/L 21 - 32 mmol/L [facility] Interpretation and review of laboratory results Abnormal [facility] Potassium [Moles/Vol] 3.2 mmol/L Low 3.5 - 5.1 mmol/L [facility] Sodium [Moles/Vol] 140 mmol/L 135 - 145 mmol/L [facility] Urea nitrogen [Mass/Vol] 15 mg/dL 8 - 25 mg/dL [facility] Urea nitrogen/Creatinine [Mass ratio] 18.3 mg/mg [facility] Hepatic Function Panel (LFT) on 08-26-2019 Albumin [Mass/Vol] 3.5 g/dL 3.2 - 5.2 g/dL [facility] ALP [Catalytic activity/Vol] 68 U/L 40 - 150 U/L [facility] ALT [Catalytic activity/Vol] 34 U/L 14 - 65 U/L [facility] AST [Catalytic activity/Vol] 34 U/L 0 - 45 U/L [facility] Bilirubin [Mass/Vol] 0.3 mg/dL 0 - 1.3 mg/dL [facility] Bilirubin.conjugated [Mass/Vol] mg/dL 0 - 0.4 mg/dL [facility] Protein [Mass/Vol] 6.9 g/dL 6 - 8 g/dL [facility] Lipaseon 08-26-2019 Lipase [Catalytic activity/Vol] 94 U/L 73 - 393 U/L [facility] Otheron 08-26-2019 Interpretation and review of laboratory results Normal [facility] TROPONINon 08-26-2019 Troponin I.cardiac [Mass/Vol] Normal [facility] Troponin I.cardiac [Mass/Vol] 16 ng/L <=45 [facility] XR CHEST PA/APon 08-26-2019 XR CHEST PA/AP EXAMINATION: XR CHEST PA/AP HISTORY: ORDERING SYSTEM PROVIDED HISTORY: cough, wheezing,, TECHNOLOGIST PROVIDED HISTORY: Illness/Other Reason for exam: cough/wheeze Cancer History: u Surgery, Radiation History: u Encounter Type: Unknown Additional signs and symptoms: . ORDERING SYSTEM PROVIDED DIAGNOSIS CODES: COMPARISON: Chest x-ray 08/23/2019, 08/20/2019. FINDINGS: AP view of the chest is submitted. The cardiomediastinal silhouette, lungs, pleural spaces and pulmonary vasculature are within normal limits. No acute osseous abnormality is seen. IMPRESSION: No acute cardiopulmonary abnormality. VKR/vrs Workstation ID: [id number] Dictated by: RICH BURCH on TueAugust 26, 2019 2:32:25 AM EDT Transcribed by: BHARAT MCDERMOTT on TueAugust 26, 2019 3:32:58 AM EDT Finalized by: RICH BURCH on TueAugust 26, 2019 4:38:58 AM EDT Normal [facility] Comment on above: Order Comment: Injur y/Trauma or Illness?:Illness/Other How long have you had these symptoms (acute/chronic)?:Acute Reason for exam?:cough/wheeze History of cancer?:u Surgeries, chemotherapy, or radiation?:u Type of Exam?:Unknown Additional signs and symptoms?:. XR Chest 1 Viewon 08-26-2019 No acute cardiopulmo nary abnormality. [employer] Workstation ID: [id number] [facility] Interface, Rad In Fu ji Speechq - 08/26/2019 4:41 AM EDT EXAMINATION: XR CHEST PA/AP HISTORY: ORDERING SYSTEM PROVIDED HISTORY: cough, wheezing,, TECHNOLOGIST PROVIDED HISTORY: Illness/Other Reason for exam: cough/wheeze Cancer History: u Surgery, Radiation History: u Encounter Type: Unknown Additional signs and symptoms: . ORDERING SYSTEM PROVIDED DIAGNOSIS CODES: COMPARISON: Chest x-ray 08/23/2019, 08/20/2019. FINDINGS: AP view of the chest is submitted. The cardiomediastinal silhouette, lungs, pleural spaces and pulmonary vasculature are within normal limits. No acute osseous abnormality is seen. IMPRESSION: No acute cardiopulmonary abnormality. [employer] Workstation ID: [id number] [facility] EXAMINATION: XR CHES T PA/AP HISTORY: ORDERING SYSTEM PROVIDED HISTORY: cough, wheezing,, TECHNOLOGIST PROVIDED HISTORY: Illness/Other Reason for exam: cough/wheeze Cancer History: u Surgery, Radiation History: u Encounter Type: Unknown Additional signs and symptoms: . ORDERING SYSTEM PROVIDED DIAGNOSIS CODES: COMPARISON: Chest x-ray 08/23/2019, 08/20/2019. FINDINGS: AP view of the chest is submitted. The cardiomediastinal silhouette, lungs, pleural spaces and pulmonary vasculature are within normal limits. No acute osseous abnormality is seen. [facility] COVID-19, Molecularon 2019 Interpretation and review of laboratory results Normal [facility] SARS-CoV-2 Not Detected Not Detected [facility] Comment on above: This test was perfor med under the FDA's Emergency Use Authorization (EUA). Testing was performed using the Xpert Xpress SARS-CoV-2 Cepheid assay on the GeneXpert Dx platform. This test has not been approved for use in asymptomatic patients and its performance in this patient population has not been evaluated. Negative results do not rule out the presence of SARS-CoV-2/COVID-19. Fact sheets for this EUA can be found at the following links: For Healthcare Providers: https://www.fda.gov/media/902262/download For Patients: https://www.fda.gov/media/654238/download XR CHEST PA/APon 08-24-2019 XR CHEST PA/AP EXAMINATION: XR CHEST PA/AP, 08/23/2019 HISTORY: cough COMPARISON: Chest, 08/20/2019. FINDINGS: Cardiac size, mediastinal contour and pulmonary vascularity appear within normal limits. The lungs are well expanded and appear clear. IMPRESSION: No acute cardiopulmonary disease. Workstation ID: [id number] Dictated by: TAE BHAGAT on TueAugust 24, 2019 12:06:08 AM EDT Transcribed by: TAE BHAGAT on TueAugust 24, 2019 12:06:08 AM EDT Finalized by: TAE BHAGAT on TueAugust 24, 2019 12:06:08 AM EDT [facility] Comment on above: Order Comment: Injur y/Trauma or Illness?:Illness/Other How long have you had these symptoms (acute/chronic)?:Acute Reason for exam?:recent bronchitis dx, SOB History of cancer?:u Surgeries, chemotherapy, or radiation?:u Type of Exam?:Ongoing Additional signs and symptoms?:n XR Chest 1 Viewon 08-24-2019 No acute cardiopulmo nary disease. Workstation ID: [id number] [facility] Interface, Rad In Fu ji Speechq - 08/24/2019 12:08 AM EDT EXAMINATION: XR CHEST PA/AP, 08/23/2019 HISTORY: cough COMPARISON: Chest, 08/20/2019. FINDINGS: Cardiac size, mediastinal contour and pulmonary vascularity appear within normal limits. The lungs are well expanded and appear clear. IMPRESSION: No acute cardiopulmonary disease. Workstation ID: [id number] [facility] EXAMINATION: XR CHES T PA/AP, 08/23/2019 HISTORY: cough COMPARISON: Chest, 08/20/2019. FINDINGS: Cardiac size, mediastinal contour and pulmonary vascularity appear within normal limits. The lungs are well expanded and appear clear. [facility] BMPon 08-23-2019 Anion gap [Moles/Vol] 8 mmol/L Low 10 - 20 mmol/L [facility] Calcium [Mass/Vol] 8.9 mg/dL 8.4 - 10. 2 mg/dL [facility] Chloride [Moles/Vol] 108 mmol/L 98 - 10 8 mmol/L [facility] Creatinine [Mass/Vol] 1.00 mg/dL 0.60 - 1.20 [facility] GFR/1.73 sq M predicted among non-blacks MDRD (S/P/Bld) [Vol rate/Area] The eGFR should be used for monitoring renal function only and not for medication dosing. [facility] GFR/1.73 sq M.predicted CKD-EPI (S/P/Bld) [Vol rate/Area] 70 >=60 mL/min/1.73 m2 [facility] Glucose [Mass/Vol] 111 mg/dL High 65 - 99 mg/dL [facility] HCO3 [Moles/Vol] 29 mmol/L 21 - 32 mmol/L [facility] Interpretation and review of laboratory results Abnormal [facility] Potassium [Moles/Vol] 4.3 mmol/L 3.5 - 5.1 mmol/L [facility] Comment on above: moderate hemolysis, result may be falsely increased. Sodium [Moles/Vol] 141 mmol/L 135 - 145 mmol/L [facility] Urea nitrogen [Mass/Vol] 12 mg/dL 8 - 25 mg/dL [facility] Urea nitrogen/Creatinine [Mass ratio] 12.0 mg/mg [facility] CBC WITH AUTO DIFFERENTIALon 08-23-2019 Basophils (Bld) [#/Vol] 0.02 10*3/uL [facility] Basophils/100 WBC (Bld) 0.3 % [facility] Eosinophils (Bld) [#/Vol] 0.42 10*3/uL [facility] Eosinophils/100 WBC (Bld) 6.9 % [facility] Erythrocyte distribution width (RBC) [Entitic vol] 12.1 % 11.6 - 14.8 % [facility] Hematocrit (Bld) [Volume fraction] 38.7 % 36 - 46 % [facility] Hemoglobin (Bld) [Mass/Vol] 12.6 g/dL 12 - 16 g/dL [facility] Immature granulocytes (Bld) [#/Vol] 0.01 10*3/uL [facility] Immature granulocytes/100 WBC (Bld) 0.20 % [facility] Comment on above: The IG parameter is the percentage of metamyelocytes, myelocytes, and promyelocytes. Interpretation and review of laboratory results Abnormal [facility] Lymphocytes (Bld) [#/Vol] 2.42 10*3/uL [facility] Lymphocytes/100 WBC (Bld) 39.9 % [facility] MCH (RBC) [Entitic mass] 31.5 pg 26 - 34 pg [facility] MCHC (RBC) [Mass/Vol] 32.6 g/dL 31 - 37 g/dL [facility] MCV (RBC) [Entitic vol] 96.8 fL 80 - 100 fL [facility] Monocytes (Bld) [#/Vol] 0.38 10*3/uL [facility] Monocytes/100 WBC (Bld) 6.3 % [facility] Neutrophils (Bld) [#/Vol] 2.81 10*3/uL [facility] Neutrophils/100 WBC (Bld) 46.4 % [facility] Nucleated RBC (Bld) [#/Vol] 0.00 10*3/uL [facility] Nucleated RBC/100 WBC (Bld) [Ratio] 0.0 % [facility] Platelet mean volume (Bld) [Entitic vol] 8.9 fL Low 9 - 15.5 fL [facility] Platelets (Bld) [#/Vol] 170 10*3/uL [facility] RBC (Bld) [#/Vol] 4.00 10*6/uL [facility] WBC (Bld) [#/Vol] 6.06 10*3/uL [facility] ealth PT/INRon 08-23-2019 INR Coag (PPP) [Relative time] 1.1 {INR} [facility] Interpretation and review of laboratory results Normal [facility] PT Coag (PPP) [Time] 13.5 s [facility] During the induction phase of oral anticoagulation, the INR may not reflect the anticoagulation status of the patient. Therapeutic ranges for INR's are: Most clinical situations: INR 2.0-3.0 Mechanical Prosthetic Valve: INR 2.5-3.5 Critical: INR >5.0 [facility] Rapid Strep Screenon 020 Interpretation and review of laboratory results Normal [facility] Strep A Ag Negative Presumptive Negative for Group A Streptococcus [facility] COVID-19, Molecularon 2019 Interpretation and review of laboratory results Normal [facility] SARS-CoV-2 Not Detected Not Detected [facility] Comment on above: This test was perfor med under the FDA's Emergency Use Authorization (EUA). Testing was performed using the [employer] ID NOW COVID-19 assay on the ID NOW platform. This test has not been approved for use in asymptomatic patients and its performance in this patient population has not been evaluated. Negative results do not rule out the presence of SARS-CoV-2/COVID-19. Fact sheets for the [employer] can be found at the following links: For Healthcare Providers: https://www.fda.gov/media/561553/download For Patients: https://www.[place].gov/media/224117/download XR CHEST PA/APon 08-20-2019 XR CHEST PA/AP CLINICAL HISTORY: Acute shortness of breath. EXAMINATION: PORTABLE AP UPRIGHT CHEST: 08/20/2019 AT 2044 HOURS. COMPARISON: None. FINDINGS: The patient is slightly rotated. The visualized osseous structures appear intact. The heart size seems normal. The aorta has normal contour. There are no focal infiltrates, pleural effusions, pulmonary edema or pneumothorax. IMPRESSION: No acute cardiopulmonary disease. [employer] Workstation ID: [id number] Dictated by: MICHAEL BRYANT on TueAugust 20, 2019 8:53:01 PM EDT Transcribed by: ESTEFANÍA GILLIS on TueAugust 20, 2019 9:11:44 PM EDT Finalized by: MICHAEL BRYANT on TueAugust 20, 2019 9:17:02 PM EDT Normal [facility] Comment on above: Order Comment: Injur y/Trauma or Illness?:Illness/Other How long have you had these symptoms (acute/chronic)?:Acute Reason for exam?:wheeze/productive cough History of cancer?:u Surgeries, chemotherapy, or radiation?:u Type of Exam?:Initial Additional signs and symptoms?:hx of asthma per pt XR Chest 1 Viewon 08-20-2019 No acute cardiopulmo nary disease. [employer] Workstation ID: [id number] [facility] CLINICAL HISTORY: Ac [place] shortness of breath. EXAMINATION: PORTABLE AP UPRIGHT CHEST: 08/20/2019 AT 2044 HOURS. COMPARISON: None. FINDINGS: The patient is slightly rotated. The visualized osseous structures appear intact. The heart size seems normal. The aorta has normal contour. There are no focal infiltrates, pleural effusions, pulmonary edema or pneumothorax. [facility] Interface, Rad In Jacobo ji Speechq - 08/20/2019 9:19 PM EDT CLINICAL HISTORY: Acute shortness of breath. EXAMINATION: PORTABLE AP UPRIGHT CHEST: 08/20/2019 AT 2044 HOURS. COMPARISON: None. FINDINGS: The patient is slightly rotated. The visualized osseous structures appear intact. The heart size seems normal. The aorta has normal contour. There are no focal infiltrates, pleural effusions, pulmonary edema or pneumothorax. IMPRESSION: No acute cardiopulmonary disease. [employer] Workstation ID: [id number] [facility] No Panel Information [facility] Vital Signs Date Time Vital Sign Value Performing Clinician Facility 12-04-2024 14:41-0400 Body height 177.[address] Ilya Monroe MD Work Phone: [facility] 12-04-2024 14:41-0400 Body mass index (BMI) [Ratio] 32.4 kg/m2 Dr. Ilya Monroe MD Work Phone: [facility] 12-04-2024 14:41-0400 Body weight 102.[address] Ilya Monroe MD Work Phone: [facility] 12-04-2024 14:41-0400 Diastolic blood pressure 71 mm[Hg] Dr. Ilya Monroe MD Work Phone: [facility] 12-04-2024 14:41-0400 Heart rate 67 /min Dr. Ilya Monroe MD Work Phone: [facility] 12-04-2024 14:41-0400 Respiratory rate 16 /min Dr. Ilya Monroe MD Work Phone: [facility] 12-04-2024 14:41-0400 Systolic blood pressure 119 mm[Hg] Dr. Ilya Monroe MD Work Phone: [facility] 10-24-2024 12:45-0400 Body mass index (BMI) [Ratio] 33.22 kg/m2 Heriberto Disla MD Work Phone: [facility] 10-24-2024 12:45-0400 Body temperature 96.4 [degF] Heriberto Disla MD Work Phone: [facility] 10-24-2024 12:45-0400 Body weight 105.01 kg Heriberto Disla MD Work Phone: [facility] 10-24-2024 12:45-0400 Diastolic blood pressure 74 mm[Hg] Heriberto Disla MD Work Phone: [facility] 10-24-2024 12:45-0400 Heart rate 74 /min Heriberto Disla MD Work Phone: [facility] 10-24-2024 12:45-0400 SaO2% (BldA) [Mass fraction] 99 % Heriberto Disla MD Work Phone: [facility] 10-24-2024 12:45-0400 Systolic blood pressure 121 mm[Hg] Heriberto Disla MD Work Phone: [facility] 10-15-2024 09:29-0400 Body mass index (BMI) [Ratio] 33.25 kg/m2 Keshawn Hastings MD Work Phone: [facility] 10-15-2024 09:29-0400 Body temperature 98.2 [degF] Keshawn Hastings MD Work Phone: [facility] 10-15-2024 09:29-0400 Body weight 105.1 kg Keshawn Hastings MD Work Phone: [facility] 10-15-2024 09:29-0400 Diastolic blood pressure 82 mm[Hg] Keshawn Hastings MD Work Phone: [facility] 10-15-2024 09:29-0400 Heart rate 70 /min Keshawn Hastings MD Work Phone: [facility] 10-15-2024 09:29-0400 Respiratory rate 20 /min Keshawn Hastings MD Work Phone: [facility] 10-15-2024 09:29-0400 SaO2% (BldA) [Mass fraction] 96 % Keshawn Hastings MD Work Phone: [facility] 10-15-2024 09:29-0400 Systolic blood pressure 130 mm[Hg] Keshawn Hastings MD Work Phone: [facility] 10-09-2024 14:40-0400 Body temperature 98 [degF] Dr. Ilya Monroe MD Work Phone: 6(752)639-625315 [place] [address] 10-09-2024 14:40-0400 Diastolic blood pressure 72 mm[Hg] Dr. Ilya Monroe MD Work Phone: 7(190)734-072115 [place] [address] 10-09-2024 14:40-0400 Heart rate 55 /min Dr. Ilya Monroe MD Work Phone: 5(160)371-285015 [place] [address] 10-09-2024 14:40-0400 Respiratory rate 18 /min Dr. Ilya Monroe MD Work Phone: 1(401)534-289415 [place] [address] 10-09-2024 14:40-0400 SaO2% (BldA) [Mass fraction] 98 % Dr. Ilya Monroe MD Work Phone: 0(891)010-951415 [place] [address] 10-09-2024 14:40-0400 Systolic blood pressure 130 mm[Hg] Dr. Ilya Monroe MD Work Phone: 7(306)215-032215 [place] [address] 10-09-2024 11:18-0400 Body height 177.[address] Ilya Monroe MD Work Phone: 1(742)758-277815 [place] [address] 10-09-2024 11:18-0400 Body mass index (BMI) [Ratio] 33.5 kg/m2 Dr. Ilya Monroe MD Work Phone: 7(642)294-652315 [place] [address] 10-09-2024 11:18-0400 Body weight [address] Ilya Monroe MD Work Phone: 0(961)735-085715 [place] [address] 10-08-2024 10:51-0400 Body mass index (BMI) [Ratio] 33.29 kg/m2 Mustapha Silverio APRN.CNM Work Phone: [facility] 10-08-2024 10:51-0400 Body weight 105.23 kg Mustapha Plotts HR RECRUITER.CNM Work Phone: [facility] 10-08-2024 10:51-0400 Diastolic blood pressure 74 mm[Hg] Mustapha Plotts HR RECRUITER.CNM Work Phone: [facility] 10-08-2024 10:51-0400 Systolic blood pressure 126 mm[Hg] Mustapha Plotts HR RECRUITER.CNM Work Phone: [facility] 09-27-2024 07:21-0400 Body mass index (BMI) [Ratio] 33.53 kg/m2 Adriana Joya HR RECRUITER.WINDER HELPER Work Phone: [facility] 09-27-2024 07:21-0400 Body weight 106 kg Adriana Joya HR RECRUITER.WINDER HELPER Work Phone: [facility] 09-27-2024 07:21-0400 Diastolic blood pressure 72 mm[Hg] Adriana Joya HR RECRUITER.WINDER HELPER Work Phone: [facility] 09-27-2024 07:21-0400 Heart rate 58 /min Adriana Joya HR RECRUITER.WINDER HELPER Work Phone: [facility] 09-27-2024 07:21-0400 Respiratory rate 16 /min Adriana Joya HR RECRUITER.WINDER HELPER Work Phone: [facility] 09-27-2024 07:21-0400 Systolic blood pressure 118 mm[Hg] Adriana Joya HR RECRUITER.WINDER HELPER Work Phone: [facility] 09-11-2024 10:53-0400 Body height 177.8 cm Albert Holland PA-C Work Phone: [facility] 09-11-2024 10:53-0400 Body mass index (BMI) [Ratio] 33.72 kg/m2 Albert Holland PA-C Work Phone: [facility] 09-11-2024 10:53-0400 Body temperature 97.59 [degF] Albert Holland PA-C Work Phone: [facility] 09-11-2024 10:53-0400 Body weight 106.59 kg Albert Holland PA-C Work Phone: [facility] 09-11-2024 10:53-0400 Diastolic blood pressure 80 mm[Hg] Albert Holland PA-C Work Phone: [facility] 09-11-2024 10:53-0400 Heart rate 74 /min Albert Holland PA-C Work Phone: [facility] 09-11-2024 10:53-0400 Respiratory rate 14 /min Albert Holland PA-C Work Phone: [facility] 09-11-2024 10:53-0400 SaO2% (BldA) [Mass fraction] 99 % Albert Holland PA-C Work Phone: [facility] 09-11-2024 10:53-0400 Systolic blood pressure 138 mm[Hg] Albert Holland PA-C Work Phone: [facility] 09-09-2024 15:47-0400 Body temperature 97.9 [degF] Dr. Ilya Monroe MD Work Phone: [facility] 09-09-2024 15:47-0400 Diastolic blood pressure 70 mm[Hg] Dr. Ilya Monroe MD Work Phone: [facility] 09-09-2024 15:47-0400 Heart rate 115 /min Dr. Ilya Monroe MD Work Phone: [facility] 09-09-2024 15:47-0400 Respiratory rate 18 /min Dr. Ilya Monroe MD Work Phone: [facility] 09-09-2024 15:47-0400 SaO2% (BldA) [Mass fraction] 96 % Dr. Ilya Monroe MD Work Phone: [facility] 09-09-2024 15:47-0400 Systolic blood pressure 152 mm[Hg] Dr. Ilya Monroe MD Work Phone: [facility] 09-09-2024 13:21-0400 Body height 177.[address] Ilya Monroe MD Work Phone: [facility] 09-09-2024 13:21-0400 Body mass index (BMI) [Ratio] 33.4 kg/m2 Dr. Ilya Monroe MD Work Phone: [facility] 09-09-2024 13:21-0400 Body weight 105.[address] Ilya Monroe MD Work Phone: [facility] 09-09-2024 12:57-0400 Body mass index (BMI) [Ratio] 33.47 kg/m2 Iván Stone APRN.BURRING WHEEL OPERATOR Work Phone: [facility] 09-09-2024 12:57-0400 Body temperature 98.01 [degF] Iván Stone APRN.BURRING WHEEL OPERATOR Work Phone: [facility] 09-09-2024 12:57-0400 Body weight 105.8 kg Iván Stone APRN.BURRING WHEEL OPERATOR Work Phone: [facility] 09-09-2024 12:57-0400 Diastolic blood pressure 72 mm[Hg] Iván Stone APRN.BURRING WHEEL OPERATOR Work Phone: [facility] 09-09-2024 12:57-0400 Heart rate 64 /min Iván Stone APRN.BURRING WHEEL OPERATOR Work Phone: [facility] 09-09-2024 12:57-0400 Respiratory rate 16 /min Iván Stone APRN.BURRING WHEEL OPERATOR Work Phone: [facility] 09-09-2024 12:57-0400 SaO2% (BldA) [Mass fraction] 96 % Iván Stone APRN.BURRING WHEEL OPERATOR Work Phone: [facility] 09-09-2024 12:57-0400 Systolic blood pressure 128 mm[Hg] Iván Stone APRN.BURRING WHEEL OPERATOR Work Phone: [facility] 09-07-2024 12:02-0400 Body mass index (BMI) [Ratio] 33.43 kg/m2 Heriberto Disla MD Work Phone: [facility] 09-07-2024 12:02-0400 Body temperature 97 [degF] Heriberto Disla MD Work Phone: [facility] 09-07-2024 12:02-0400 Body weight 105.69 kg Heriberto Disla MD Work Phone: [facility] 09-07-2024 12:02-0400 Diastolic blood pressure 68 mm[Hg] Heriberto Disla MD Work Phone: [facility] 09-07-2024 12:02-0400 Heart rate 73 /min Heriberto Disla MD Work Phone: [facility] 09-07-2024 12:02-0400 SaO2% (BldA) [Mass fraction] 98 % Heriberto Disla MD Work Phone: [facility] 09-07-2024 12:02-0400 Systolic blood pressure 122 mm[Hg] Heriberto Disla MD Work Phone: [facility] 08-17-2024 11:46-0400 Body mass index (BMI) [Ratio] 33.72 kg/m2 Preet Mares APRN.BURRING WHEEL OPERATOR Work Phone: [facility] 08-17-2024 11:46-0400 Body weight 106.59 kg Preet Mares APRN.BURRING WHEEL OPERATOR Work Phone: [facility] 08-17-2024 11:46-0400 Diastolic blood pressure 74 mm[Hg] Preet Haury HR RECRUITER.BURRING WHEEL OPERATOR Work Phone: [facility] 08-17-2024 11:46-0400 Systolic blood pressure 124 mm[Hg] Preet Haury HR RECRUITER.BURRING WHEEL OPERATOR Work Phone: [facility] 08-09-2024 08:16-0400 Body mass index (BMI) [Ratio] 33.3 kg/m2 Dr. Ilya Monroe MD Work Phone: [facility] 08-09-2024 08:16-0400 Body temperature 97.3 [degF] Dr. Ilya Monroe MD Work Phone: [facility] 08-09-2024 08:16-0400 Body weight 107.[address] Ilya Monroe MD Work Phone: [facility] 08-09-2024 08:16-0400 Diastolic blood pressure 74 mm[Hg] Dr. Ilya Monroe MD Work Phone: [facility] 08-09-2024 08:16-0400 Heart rate 75 /min Dr. Ilya Monroe MD Work Phone: [facility] 08-09-2024 08:16-0400 Respiratory rate 16 /min Dr. Ilya Monroe MD Work Phone: [facility] 08-09-2024 08:16-0400 SaO2% (BldA) [Mass fraction] 95 % Dr. Ilya Monroe MD Work Phone: [facility] 08-09-2024 08:16-0400 Systolic blood pressure 107 mm[Hg] Dr. Ilya Monroe MD Work Phone: [facility] 08-01-2024 13:19-0400 Body mass index (BMI) [Ratio] 33.88 kg/m2 Heriberto Disla MD Work Phone: [facility] 08-01-2024 13:19-0400 Body temperature 97 [degF] Heriberto Disla MD Work Phone: [facility] 08-01-2024 13:19-0400 Body weight 106.14 kg Heriberto Disla MD Work Phone: [facility] 08-01-2024 13:19-0400 Diastolic blood pressure 78 mm[Hg] Heriberto Disla MD Work Phone: [facility] 08-01-2024 13:19-0400 Heart rate 63 /min Heriberto Disla MD Work Phone: [facility] 08-01-2024 13:19-0400 SaO2% (BldA) [Mass fraction] 97 % Heriberto Disla MD Work Phone: [facility] 08-01-2024 13:19-0400 Systolic blood pressure 124 mm[Hg] Heriberto Disla MD Work Phone: [facility] 07-05-2024 10:57-0400 Body mass index (BMI) [Ratio] 33.83 kg/m2 Adriana Joya HR RECRUITER.WINDER HELPER Work Phone: [facility] 07-05-2024 10:57-0400 Body temperature 98.91 [degF] Adriana Joya HR RECRUITER.WINDER HELPER Work Phone: [facility] 07-05-2024 10:57-0400 Body weight 106 kg Adriana Joya HR RECRUITER.WINDER HELPER Work Phone: [facility] 07-05-2024 10:57-0400 Diastolic blood pressure 76 mm[Hg] Adriana Joya HR RECRUITER.WINDER HELPER Work Phone: [facility] 07-05-2024 10:57-0400 Heart rate 68 /min Adriana Joya HR RECRUITER.WINDER HELPER Work Phone: [facility] 07-05-2024 10:57-0400 Respiratory rate 16 /min Adriana Joya HR RECRUITER.WINDER HELPER Work Phone: [facility] 07-05-2024 10:57-0400 Systolic blood pressure 126 mm[Hg] Adriana Joya HR RECRUITER.WINDER HELPER Work Phone: [facility] 06-14-2024 10:57-0500 Body height 177 cm Pulm Wstr Work Phone: [facility] 06-14-2024 10:57-0500 Body mass index (BMI) [Ratio] 33.59 kg/m2 Pulm Wstr Work Phone: [facility] 06-14-2024 10:57-0500 Body weight 105.23 kg Pulm Wstr Work Phone: [facility] 06-14-2024 10:57-0500 Heart rate 64 /min Pulm Wstr Work Phone: [facility] 06-14-2024 10:57-0500 Respiratory rate 16 /min Pulm Wstr Work Phone: [facility] 06-14-2024 10:57-0500 SaO2% (BldA) [Mass fraction] 100 % Pulm Wstr Work Phone: [facility] 06-12-2024 12:53-0500 Diastolic blood pressure 66 mm[Hg] Adriana Joya HR RECRUITER.WINDER HELPER Work Phone: [facility] 06-12-2024 12:53-0500 Heart rate 61 /min Adriana Joya HR RECRUITER.WINDER HELPER Work Phone: [facility] 06-12-2024 12:53-0500 Systolic blood pressure 109 mm[Hg] Adriana Joya HR RECRUITER.WINDER HELPER Work Phone: [facility] 06-12-2024 12:50-0500 Body height 177 cm Adriana Joya HR RECRUITER.WINDER HELPER Work Phone: [facility] 06-12-2024 12:50-0500 Body mass index (BMI) [Ratio] 33.52 kg/m2 Adriana Joya HR RECRUITER.WINDER HELPER Work Phone: [facility] 06-12-2024 12:50-0500 Body weight 105 kg Adriana Joya HR RECRUITER.WINDER HELPER Work Phone: [facility] 06-04-2024 19:13-0500 Body mass index (BMI) [Ratio] 34.51 kg/m2 Jean Carlos Avila MD Work Phone: [facility] 06-04-2024 19:13-0500 Body temperature 98.91 [degF] Jean Carlos Avila MD Work Phone: [facility] 06-04-2024 19:13-0500 Body weight 106.9 kg Jean Carlos Avila MD Work Phone: [facility] 06-04-2024 19:13-0500 Diastolic blood pressure 76 mm[Hg] Jean Carlos Avila MD Work Phone: [facility] 06-04-2024 19:13-0500 Heart rate 72 /min Jean Carlos Avila MD Work Phone: [facility] 06-04-2024 19:13-0500 Systolic blood pressure 132 mm[Hg] Jean Carlos Avila MD Work Phone: [facility] 05-23-2024 11:02-0500 Body mass index (BMI) [Ratio] 34.48 kg/m2 Jean Carlos Avila MD Work Phone: [facility] 05-23-2024 11:02-0500 Body temperature 98.2 [degF] Jean Carlos Avila MD Work Phone: [facility] 05-23-2024 11:02-0500 Body weight 106.8 kg Jean Carlos Avila MD Work Phone: [facility] 05-23-2024 11:02-0500 Diastolic blood pressure 80 mm[Hg] Jean Carlos Avila MD Work Phone: [facility] 05-23-2024 11:02-0500 Heart rate 68 /min Jean Carlos Avila MD Work Phone: [facility] 05-23-2024 11:02-0500 Respiratory rate 18 /min Jean Carlos Avila MD Work Phone: [facility] 05-23-2024 11:02-0500 Systolic blood pressure 146 mm[Hg] Jean Carlos Avila MD Work Phone: [facility] 05-19-2024 14:52-0500 Body mass index (BMI) [Ratio] 34.22 kg/m2 Jenniffer Garcia APRN.BURRING WHEEL OPERATOR Work Phone: [facility] 05-19-2024 14:52-0500 Body temperature 97.81 [degF] Jenniffer Garcia APRN.BURRING WHEEL OPERATOR Work Phone: [facility] 05-19-2024 14:52-0500 Body weight 106 kg Jenniffer Garcia APRN.BURRING WHEEL OPERATOR Work Phone: [facility] 05-19-2024 14:52-0500 Diastolic blood pressure 73 mm[Hg] Jenniffer Garcia HR RECRUITER.BURRING WHEEL OPERATOR Work Phone: [facility] 05-19-2024 14:52-0500 Heart rate 63 /min Jenniffer Garcia HR RECRUITER.BURRING WHEEL OPERATOR Work Phone: [facility] 05-19-2024 14:52-0500 Respiratory rate 20 /min Jenniffer Garcia HR RECRUITER.BURRING WHEEL OPERATOR Work Phone: [facility] 05-19-2024 14:52-0500 SaO2% (BldA) [Mass fraction] 99 % Jenniffer Garcia HR RECRUITER.BURRING WHEEL OPERATOR Work Phone: [facility] 05-19-2024 14:52-0500 Systolic blood pressure 143 mm[Hg] Jenniffer Garcia HR RECRUITER.BURRING WHEEL OPERATOR Work Phone: [facility] 05-09-2024 14:30-0500 Diastolic blood pressure 74 mm[Hg] Treatment Wstr Work Phone: [facility] 05-09-2024 14:30-0500 Heart rate 68 /min Treatment Wstr Work Phone: [facility] 05-09-2024 14:30-0500 Respiratory rate 14 /min Treatment Wstr Work Phone: [facility] 05-09-2024 14:30-0500 SaO2% (BldA) [Mass fraction] 95 % Treatment Wstr Work Phone: [facility] 05-09-2024 14:30-0500 Systolic blood pressure 102 mm[Hg] Treatment Wstr Work Phone: [facility] 05-09-2024 13:24-0500 Body mass index (BMI) [Ratio] 34.56 kg/m2 Chandrakant Kelley Work Phone: [facility] 05-09-2024 13:24-0500 Body temperature 97.39 [degF] Chandrakant Kelley Work Phone: [facility] 05-09-2024 13:24-0500 Body weight 107.05 kg Chandrakant Kelley Work Phone: [facility] 05-09-2024 13:24-0500 Diastolic blood pressure 80 mm[Hg] Chandrakant Kelley Work Phone: [facility] 05-09-2024 13:24-0500 Heart rate 69 /min Chandrakant Kelley Work Phone: [facility] 05-09-2024 13:24-0500 SaO2% (BldA) [Mass fraction] 96 % Chandrakant Kelley Work Phone: [facility] 05-09-2024 13:24-0500 Systolic blood pressure 136 mm[Hg] Chandrakant Kelley Work Phone: [facility] 03-23-2024 23:26-0500 Body temperature 98 [degF] Dr. Ilya Monroe MD Work Phone: 0(900)315-902915 [place] [address] 03-23-2024 23:26-0500 Diastolic blood pressure 65 mm[Hg] Dr. Ilya Monroe MD Work Phone: 9(201)088-034315 [place] [address] 03-23-2024 23:26-0500 Heart rate 71 /min Dr. Ilya Monroe MD Work Phone: 9(653)911-766315 [place] [address] 03-23-2024 23:26-0500 Respiratory rate 16 /min Dr. Ilya Monroe MD Work Phone: [facility] 03-23-2024 23:26-0500 SaO2% (BldA) [Mass fraction] 98 % Dr. Ilya Monroe MD Work Phone: 7(475)802-025415 [place] [address] 03-23-2024 23:26-0500 Systolic blood pressure 135 mm[Hg] Dr. Ilya Monroe MD Work Phone: 0(798)780-656515 [place] [address] 03-23-2024 21:14-0500 Body height 180.[address] Ilya Monroe MD Work Phone: 0(483)630-662815 [place] [address] 03-23-2024 21:14-0500 Body mass index (BMI) [Ratio] 33.3 kg/m2 Dr. Ilya Monroe MD Work Phone: [facility] 03-23-2024 21:14-0500 Body weight 107.[address] Ilya Monroe MD Work Phone: [facility] 03-20-2024 09:28-0500 Body mass index (BMI) [Ratio] 34.35 kg/m2 Adriana Joya HR RECRUITER.WINDER HELPER Work Phone: [facility] 03-20-2024 09:28-0500 Body temperature 98.91 [degF] Adriana Joya HR RECRUITER.WINDER HELPER Work Phone: [facility] 03-20-2024 09:28-0500 Body weight 106.4 kg Adriana Joya HR RECRUITER.WINDER HELPER Work Phone: [facility] 03-20-2024 09:28-0500 Diastolic blood pressure 72 mm[Hg] Adriana Joya HR RECRUITER.WINDER HELPER Work Phone: [facility] 03-20-2024 09:28-0500 Heart rate 63 /min Adriana Joya HR RECRUITER.WINDER HELPER Work Phone: [facility] 03-20-2024 09:28-0500 Respiratory rate 16 /min Adriana Joya HR RECRUITER.WINDER HELPER Work Phone: [facility] 03-20-2024 09:28-0500 SaO2% (BldA) [Mass fraction] 97 % Adriana Joya HR RECRUITER.WINDER HELPER Work Phone: [facility] 03-20-2024 09:28-0500 Systolic blood pressure 117 mm[Hg] Adriana Joya HR RECRUITER.WINDER HELPER Work Phone: [facility] 02-15-2024 14:00-0500 Body temperature 97.81 [degF] Treatment Wstr Work Phone: [facility] 02-15-2024 14:00-0500 Diastolic blood pressure 80 mm[Hg] Treatment Wstr Work Phone: [facility] 02-15-2024 14:00-0500 Heart rate 64 /min Treatment Wstr Work Phone: [facility] 02-15-2024 14:00-0500 Respiratory rate 16 /min Treatment Wstr Work Phone: [facility] 02-15-2024 14:00-0500 SaO2% (BldA) [Mass fraction] 95 % Treatment Wstr Work Phone: [facility] 02-15-2024 14:00-0500 Systolic blood pressure 140 mm[Hg] Treatment Wstr Work Phone: [facility] 01-18-2024 10:42-0400 Body mass index (BMI) [Ratio] 35.35 kg/m2 Iván Stone APRN.BURRING WHEEL OPERATOR Work Phone: [facility] 01-18-2024 10:42-0400 Body temperature 97.7 [degF] Iván Stone APRN.BURRING WHEEL OPERATOR Work Phone: [facility] 01-18-2024 10:42-0400 Body weight 109.5 kg Iván Stone APRN.BURRING WHEEL OPERATOR Work Phone: [facility] 01-18-2024 10:42-0400 Diastolic blood pressure 70 mm[Hg] Iván Stone APRN.BURRING WHEEL OPERATOR Work Phone: [facility] 01-18-2024 10:42-0400 Heart rate 76 /min Iván Stone APRN.BURRING WHEEL OPERATOR Work Phone: [facility] 01-18-2024 10:42-0400 Respiratory rate 16 /min Iván Stone APRN.BURRING WHEEL OPERATOR Work Phone: [facility] 01-18-2024 10:42-0400 SaO2% (BldA) [Mass fraction] 95 % Iván Stone APRN.BURRING WHEEL OPERATOR Work Phone: [facility] 01-18-2024 10:42-0400 Systolic blood pressure 122 mm[Hg] Iván Stoen APRN.BURRING WHEEL OPERATOR Work Phone: [facility] 12-23-2023 13:56-0400 Body mass index (BMI) [Ratio] 35.07 kg/m2 Heriberto Disla MD Work Phone: [facility] [facility] 12-23-2023 13:56-0400 Body temperature 97.7 [degF] Heriberto Disla MD Work Phone: [facility] 12-23-2023 13:56-0400 Body weight 108.64 kg Heriberto Disla MD Work Phone: [facility] 12-23-2023 13:56-0400 Diastolic blood pressure 74 mm[Hg] Heriberto Disla MD Work Phone: [facility] 12-23-2023 13:56-0400 Heart rate 61 /min Heriberto Disla MD Work Phone: [facility] 12-23-2023 13:56-0400 SaO2% (BldA) [Mass fraction] 98 % Heriberto Disla MD Work Phone: [facility] 12-23-2023 13:56-0400 Systolic blood pressure 137 mm[Hg] Heriberto Disla MD Work Phone: [facility] 11-28-2023 10:28-0400 Body mass index (BMI) [Ratio] 35.12 kg/m2 Ilya Monroe MD Work Phone: [facility] 11-28-2023 10:28-0400 Body temperature 98.29 [degF] Ilya Monroe MD Work Phone: [facility] 11-28-2023 10:28-0400 Body weight 108.8 kg Ilya Monroe MD Work Phone: [facility] 11-28-2023 10:28-0400 Diastolic blood pressure 82 mm[Hg] Ilya Monroe MD Work Phone: [facility] 11-28-2023 10:28-0400 Heart rate 74 /min Ilya Monroe MD Work Phone: [facility] 11-28-2023 10:28-0400 Respiratory rate 16 /min Ilya Monroe MD Work Phone: [facility] 11-28-2023 10:28-0400 SaO2% (BldA) [Mass fraction] 98 % Ilya Monroe MD Work Phone: [facility] 11-28-2023 10:28-0400 Systolic blood pressure 136 mm[Hg] Ilya Monroe MD Work Phone: [facility] 11-23-2023 10:00-0400 Body temperature 97.59 [degF] Treatment Wstr Work Phone: [facility] 11-23-2023 10:00-0400 Diastolic blood pressure 77 mm[Hg] Treatment Wstr Work Phone: [facility] 11-23-2023 10:00-0400 Heart rate 54 /min Treatment Wstr Work Phone: [facility] 11-23-2023 10:00-0400 Systolic blood pressure 129 mm[Hg] Treatment Wstr Work Phone: [facility] 10-26-2023 13:30-0400 Body mass index (BMI) [Ratio] 35.8 kg/m2 Heriberto Disla MD Work Phone: [facility] 10-26-2023 13:30-0400 Body temperature 97.59 [degF] Heriberto Disla MD Work Phone: [facility] 10-26-2023 13:30-0400 Body weight 110.9 kg Heriberto Disla MD Work Phone: [facility] 10-26-2023 13:30-0400 Diastolic blood pressure 74 mm[Hg] Heriberto Disla MD Work Phone: [facility] 10-26-2023 13:30-0400 Heart rate 60 /min Heriberto Disla MD Work Phone: [facility] 10-26-2023 13:30-0400 SaO2% (BldA) [Mass fraction] 100 % Heriberto Disla MD Work Phone: [facility] 10-26-2023 13:30-0400 Systolic blood pressure 129 mm[Hg] Heriberto Disla MD Work Phone: [facility] 09-13-2023 12:06-0400 Body mass index (BMI) [Ratio] 35.44 kg/m2 Heriberto Disla MD Work Phone: [facility] 09-13-2023 12:06-0400 Body temperature 97.3 [degF] Heriberto Disla MD Work Phone: [facility] 09-13-2023 12:06-0400 Body weight 109.77 kg Heriberto Disla MD Work Phone: [facility] 09-13-2023 12:06-0400 Diastolic blood pressure 83 mm[Hg] Heriberto Disla MD Work Phone: [facility] 09-13-2023 12:06-0400 Heart rate 70 /min Heriberto Disla MD Work Phone: [facility] 09-13-2023 12:06-0400 SaO2% (BldA) [Mass fraction] 97 % Heriberto Disla MD Work Phone: [facility] 09-13-2023 12:06-0400 Systolic blood pressure 138 mm[Hg] Heriberto Disla MD Work Phone: [facility] 07-05-2023 12:01-0400 Body temperature 97.81 [degF] Heriberto Disla MD Work Phone: [facility] 07-05-2023 12:01-0400 Body weight 111.36 kg Hreiberto Disla MD Work Phone: [facility] 07-05-2023 12:01-0400 Diastolic blood pressure 75 mm[Hg] Heriberto Disla MD Work Phone: [facility] 07-05-2023 12:01-0400 Heart rate 65 /min Heriberto Disla MD Work Phone: [facility] 07-05-2023 12:01-0400 SaO2% (BldA) [Mass fraction] 99 % Heriberto Disla MD Work Phone: [facility] 07-05-2023 12:01-0400 Systolic blood pressure 144 mm[Hg] Heriberto Disla MD Work Phone: [facility] 06-08-2023 13:46-0500 Body height 176 cm Heriberto Disla MD Work Phone: [facility] 06-08-2023 13:46-0500 Body temperature 98.2 [degF] Heriberto Disla MD Work Phone: [facility] 06-08-2023 13:46-0500 Body weight 111.13 kg Heriberto Disla MD Work Phone: [facility] 06-08-2023 13:46-0500 Diastolic blood pressure 81 mm[Hg] Heriberto Disla MD Work Phone: [facility] 06-08-2023 13:46-0500 Heart rate 62 /min Heriberto Disla MD Work Phone: [facility] 06-08-2023 13:46-0500 SaO2% (BldA) [Mass fraction] 98 % Heriberto Disla MD Work Phone: [facility] 06-08-2023 13:46-0500 Systolic blood pressure 142 mm[Hg] Heriberto Disla MD Work Phone: [facility] 05-27-2023 13:45-0500 Body weight 109.77 kg Adriana Joya HR RECRUITER.WINDER HELPER Work Phone: [facility] 05-27-2023 13:45-0500 Diastolic blood pressure 78 mm[Hg] Adriana Joya HR RECRUITER.WINDER HELPER Work Phone: [facility] 05-27-2023 13:45-0500 Heart rate 65 /min Adriana Joya HR RECRUITER.WINDER HELPER Work Phone: [facility] 05-27-2023 13:45-0500 Respiratory rate 16 /min Adriana Joya HR RECRUITER.WINDER HELPER Work Phone: [facility] 05-27-2023 13:45-0500 SaO2% (BldA) [Mass fraction] 96 % Adriana Joya WINDER HELPER Work Phone: [facility] 05-27-2023 13:45-0500 Systolic blood pressure 126 mm[Hg] Adriana Marty NUNEZWINDER HELPER Work Phone: [facility] 04-28-2023 12:51-0500 Body height 180.[address] Ilya Monroe Work Phone: [facility] 04-28-2023 12:51-0500 Body mass index (BMI) [Ratio] 34.2 kg/m2 Dr. Ilya Monroe Work Phone: [facility] 04-28-2023 12:51-0500 Body weight 111.[address] Ilya Monroe Work Phone: [facility] 04-28-2023 12:51-0500 Diastolic blood pressure 80 mm[Hg] Dr. Ilya Monroe Work Phone: [facility] 04-28-2023 12:51-0500 Heart rate 77 /min Dr. Ilya Monroe Work Phone: 2(118)474-173115 [place] [address] 04-28-2023 12:51-0500 Respiratory rate 18 /min Dr. Ilya Monroe Work Phone: [facility] 04-28-2023 12:51-0500 Systolic blood pressure 125 mm[Hg] Dr. Ilya Monroe Work Phone: [facility] 03-23-2023 13:36-0500 Body temperature 97.11 [degF] Eveline Griffin MD, MD Work Phone: [facility] 03-23-2023 13:36-0500 Diastolic blood pressure 77 mm[Hg] Eveline Griffin MD, MD Work Phone: [facility] 03-23-2023 13:36-0500 Heart rate 60 /min Eveline Griffin MD, MD Work Phone: [facility] 03-23-2023 13:36-0500 SaO2% (BldA) [Mass fraction] 99 % Eveline Griffin MD, MD Work Phone: [facility] 03-23-2023 13:36-0500 Systolic blood pressure 136 mm[Hg] Eveline Griffin MD, MD Work Phone: [facility] 03-09-2023 13:19-0500 Body height 180.3 cm Gregg Bae MD Work Phone: [facility] 03-09-2023 13:190500 Body weight 114.76 kg Gregg Bae MD Work Phone: [facility] 03-09-2023 13:19-0500 Diastolic blood pressure 84 mm[Hg] Gregg Bae MD Work Phone: [facility] 03-09-2023 13:19-0500 Heart rate 73 /min Gregg Bae MD Work Phone: [facility] 03-09-2023 13:19-0500 Systolic blood pressure 147 mm[Hg] Gregg Bae MD Work Phone: [facility] 02-28-2023 14:26-0500 Body height 180.3 cm Concetta Fang MD Work Phone: [facility] 02-28-2023 14:26-0500 Body temperature 97.5 [degF] Concetta Fang MD Work Phone: [facility] 02-28-2023 14:26-0500 Body weight 114.76 kg Concetta Fang MD Work Phone: [facility] 02-28-2023 14:26-0500 Diastolic blood pressure 62 mm[Hg] Concetta Fang MD Work Phone: [facility] 02-28-2023 14:26-0500 Heart rate 75 /min Concetta Fang MD Work Phone: [facility] 02-28-2023 14:26-0500 SaO2% (BldA) [Mass fraction] 97 % Concetta Fang MD Work Phone: [facility] 02-28-2023 14:26-0500 Systolic blood pressure 170 mm[Hg] Concetta Fang MD Work Phone: [facility] 01-31-2023 11:12-0400 Body temperature 97.81 [degF] Raven Bogner PA-C Work Phone: [facility] 01-31-2023 11:12-0400 Body weight 114.76 kg Raven Bogner PA-C Work Phone: [facility] 01-31-2023 11:12-0400 Diastolic blood pressure 82 mm[Hg] Raven Bogner PA-C Work Phone: [facility] 01-31-2023 11:12-0400 Heart rate 82 /min Raven Bogner PA-C Work Phone: [facility] 01-31-2023 11:12-0400 Respiratory rate 16 /min Raven Bogner PA-C Work Phone: [facility] 01-31-2023 11:12-0400 SaO2% (BldA) [Mass fraction] 95 % Raven Bogner PA-C Work Phone: [facility] 01-31-2023 11:12-0400 Systolic blood pressure 144 mm[Hg] Raven Bogner PA-C Work Phone: [facility] 01-17-2023 11:04-0400 Body height 180.3 cm Concetta Fang MD Work Phone: [facility] 01-17-2023 11:04-0400 Body temperature 96.6 [degF] Concetta Fang MD Work Phone: [facility] 01-17-2023 11:04-0400 Body weight 115.21 kg Concetta Fang MD Work Phone: [facility] 01-17-2023 11:04-0400 Diastolic blood pressure 82 mm[Hg] Concetta Fang MD Work Phone: [facility] 01-17-2023 11:04-0400 Heart rate 80 /min Concetta Fang MD Work Phone: [facility] 01-17-2023 11:04-0400 SaO2% (BldA) [Mass fraction] 100 % Concetta Fang MD Work Phone: 6(727)435-278247 [place] [address] 01-17-2023 11:04-0400 Systolic blood pressure 152 mm[Hg] Concetta Fang MD Work Phone: 5(990)965-867183 [place] [address] 01-15-2023 12:17-0400 Diastolic blood pressure 71 mm[Hg] Dr. Ilya Monroe Work Phone: 3(225)313-605805 [address] [place] [address] 01-15-2023 12:17-0400 Heart rate 53 /min Dr. Ilya Monroe Work Phone: 0(414)470-411105 [address] [place] [address] 01-15-2023 12:17-0400 Respiratory rate 17 /min Dr. Ilya Monroe Work Phone: 0(927)596-456805 [address] [place] [address] 01-15-2023 12:17-0400 SaO2% (BldA) [Mass fraction] 96 % Dr. Ilya Monroe Work Phone: 6(208)211-817005 [address] [place] [address] 01-15-2023 12:17-0400 Systolic blood pressure 141 mm[Hg] Dr. Ilya Monroe Work Phone: 3(537)694-000705 [address] [place] [address] 01-15-2023 08:55-0400 Body mass index (BMI) [Ratio] 35.3 kg/m2 Dr. Ilya Monroe Work Phone: 8(799)965-604705 [address] [place] [address] 01-15-2023 08:55-0400 Body temperature 96.7 [degF] Dr. Ilya Monroe Work Phone: 7(595)066-465005 [address] [place] [address] 01-15-2023 08:55-0400 Body weight 114.[address] Ilya Monroe Work Phone: 6(193)062-560305 [address] [place] [address] 12-14-2022 18:26-0400 Diastolic blood pressure 72 mm[Hg] Dr. Ilya Monroe Work Phone: 4(994)859-579405 [address] [place] [address] 12-14-2022 18:26-0400 Heart rate 71 /min Dr. Ilya Monroe Work Phone: 0(746)280-506905 [address] [place] [address] 12-14-2022 18:26-0400 Respiratory rate 16 /min Dr. Ilya Monroe Work Phone: 4(149)046-827215 [place] [address] 12-14-2022 18:26-0400 SaO2% (BldA) [Mass fraction] 98 % Dr. Ilya Monroe Work Phone: 1(745)741-510515 [place] [address] 12-14-2022 18:26-0400 Systolic blood pressure 118 mm[Hg] Dr. Ilya Monroe Work Phone: 6(264)995-777405 [address] [place] [address] 12-14-2022 15:46-0400 Body mass index (BMI) [Ratio] 35 kg/m2 Dr. Ilya Monroe Work Phone: 0(398)312-681705 [address] [place] [address] 12-14-2022 15:46-0400 Body weight [address] Ilya Monroe Work Phone: 1(145)910-222105 [address] [place] [address] 12-14-2022 14:31-0400 Body height 180.[address] Ilya Monroe Work Phone: 8(984)999-295005 [address] [place] [address] 12-14-2022 14:31-0400 Body temperature 97.3 [degF] Dr. Ilya Monroe Work Phone: 9(672)595-776905 [address] [place] [address] 11-18-2022 14:06-0400 Body height 181.6 cm Ronit Brown APRN.BURRING WHEEL OPERATOR Work Phone: 8(464)706-705547 [place] [address] 11-18-2022 14:06-0400 Body weight 113.76 kg Ronit Brown APRN.BURRING WHEEL OPERATOR Work Phone: [facility] 11-18-2022 14:06-0400 Diastolic blood pressure 82 mm[Hg] Ronit Brown APRN.BURRING WHEEL OPERATOR Work Phone: [facility] 11-18-2022 14:06-0400 Systolic blood pressure 148 mm[Hg] Ronit Brown APRN.BURRING WHEEL OPERATOR Work Phone: [facility] 10-25-2022 13:24-0400 Body height 180.[address] Ilya Monroe Work Phone: [facility] 10-25-2022 13:24-0400 Body mass index (BMI) [Ratio] 35.2 kg/m2 Dr. Ilya Monroe Work Phone: [facility] 10-25-2022 13:24-0400 Body weight 114.[address] Ilya Monroe Work Phone: [facility] 10-25-2022 13:24-0400 Diastolic blood pressure 76 mm[Hg] Dr. Ilya Monroe Work Phone: [facility] 10-25-2022 13:24-0400 Heart rate 72 /min Dr. Ilya Monroe Work Phone: 8(926)541-156215 [place] [address] 10-25-2022 13:24-0400 Respiratory rate 20 /min Dr. Ilya Monroe Work Phone: 7(418)655-811105 [address] [place] [address] 10-25-2022 13:24-0400 SaO2% (BldA) [Mass fraction] 94 % Dr. Ilya Monroe Work Phone: [facility] 10-25-2022 13:24-0400 Systolic blood pressure 145 mm[Hg] Dr. Ilya Monroe Work Phone: [facility] 08-23-2022 10:09-0400 Body weight 111.58 kg Adriana Joya HR RECRUITER.WINDER HELPER Work Phone: [facility] 08-23-2022 10:09-0400 Diastolic blood pressure 80 mm[Hg] Adriana Joya HR RECRUITER.WINDER HELPER Work Phone: [facility] 08-23-2022 10:09-0400 Heart rate 76 /min Adriana Joya HR RECRUITER.WINDER HELPER Work Phone: [facility] 08-23-2022 10:09-0400 Respiratory rate 16 /min Adriana Joya HR RECRUITER.WINDER HELPER Work Phone: [facility] 08-23-2022 10:09-0400 Systolic blood pressure 138 mm[Hg] Adriana Joya HR RECRUITER.WINDER HELPER Work Phone: [facility] 07-02-2022 08:21-0400 Body mass index (BMI) [Ratio] 34.8 kg/m2 Dr. Ilya Monroe Work Phone: 5(439)195-895905 [address] [place] [address] 07-02-2022 08:21-0400 Body temperature 98.1 [degF] Dr. Ilya Monroe Work Phone: 6(958)669-478705 [address] [place] [address] 07-02-2022 08:21-0400 Body weight 113.[address] Ilya Monroe Work Phone: 6(475)432-466905 [address] [place] [address] 07-02-2022 08:21-0400 Diastolic blood pressure 68 mm[Hg] Dr. Ilya Monroe Work Phone: 0(264)674-507205 [address] [place] [address] 07-02-2022 08:21-0400 Heart rate 64 /min Dr. Ilya Monroe Work Phone: 0(398)297-139305 [address] [place] [address] 07-02-2022 08:21-0400 Respiratory rate 18 /min Dr. Ilya Monroe Work Phone: 9(798)387-016405 [address] [place] [address] 07-02-2022 08:21-0400 SaO2% (BldA) [Mass fraction] 94 % Dr. Ilya Monroe Work Phone: 7(262)196-466705 [address] [place] [address] 07-02-2022 08:21-0400 Systolic blood pressure 128 mm[Hg] Dr. Ilya Monroe Work Phone: 3(064)685-671605 [address] [place] [address] 06-10-2022 21:25-0500 Body height 180.[address] Ilya Monroe Work Phone: 1(624)770-563105 [address] [place] [address] 06-10-2022 21:25-0500 Body mass index (BMI) [Ratio] 34.9 kg/m2 Dr. Ilya Monroe Work Phone: 2(790)818-802905 [address] [place] [address] 06-10-2022 21:25-0500 Body temperature 98.4 [degF] Dr. Ilya Monroe Work Phone: 5(593)668-772705 [address] [place] [address] 06-10-2022 21:25-0500 Body weight 113.[address] Ilya Monroe Work Phone: [facility] 06-10-2022 21:25-0500 Diastolic blood pressure 76 mm[Hg] Dr. Ilya Monroe Work Phone: [facility] 06-10-2022 21:25-0500 Heart rate 66 /min Dr. Ilya Monroe Work Phone: [facility] 06-10-2022 21:25-0500 Respiratory rate 18 /min Dr. Ilya Monroe Work Phone: [facility] 06-10-2022 21:25-0500 SaO2% (BldA) [Mass fraction] 99 % Dr. Ilya Monroe Work Phone: [facility] 06-10-2022 21:25-0500 Systolic blood pressure 174 mm[Hg] Dr. Ilya Monroe Work Phone: [facility] 05-27-2022 10:24-0500 Body weight 112.49 kg Adriana Joya HR RECRUITER.WINDER HELPER Work Phone: [facility] 05-27-2022 10:24-0500 Diastolic blood pressure 76 mm[Hg] Adriana Joya HR RECRUITER.WINDER HELPER Work Phone: [facility] 05-27-2022 10:24-0500 Heart rate 60 /min Adriana Joya HR RECRUITER.WINDER HELPER Work Phone: [facility] 05-27-2022 10:24-0500 Respiratory rate 16 /min Adriana Joya HR RECRUITER.WINDER HELPER Work Phone: [facility] 05-27-2022 10:24-0500 SaO2% (BldA) [Mass fraction] 97 % Adriana Joya HR RECRUITER.WINDER HELPER Work Phone: [facility] 05-27-2022 10:24-0500 Systolic blood pressure 128 mm[Hg] Adriana Joya HR RECRUITER.WINDER HELPER Work Phone: [facility] 05-10-2022 14:06-0500 Diastolic blood pressure 87 mm[Hg] Dr. Ilya Monroe Work Phone: 6(637)128-586605 [address] [place] [address] 05-10-2022 14:06-0500 Heart rate 71 /min Dr. Ilya Monroe Work Phone: 8(409)149-928805 [address] [place] [address] 05-10-2022 14:06-0500 Respiratory rate 16 /min Dr. Ilya Monroe Work Phone: 4(426)520-121105 [address] [place] [address] 05-10-2022 14:06-0500 SaO2% (BldA) [Mass fraction] 98 % Dr. Ilya Monroe Work Phone: 5(608)119-781505 [address] [place] [address] 05-10-2022 14:06-0500 Systolic blood pressure 132 mm[Hg] Dr. Ilya Monroe Work Phone: 7(173)145-930905 [address] [place] [address] 05-10-2022 11:40-0500 Body height 180.[address] Ilya Monroe Work Phone: 6(098)780-472905 [address] [place] [address] 05-10-2022 11:40-0500 Body mass index (BMI) [Ratio] 35.1 kg/m2 Dr. Ilya Monroe Work Phone: 7(191)860-948805 [address] [place] [address] 05-10-2022 11:40-0500 Body temperature 98 [degF] Dr. Ilya Monroe Work Phone: 3(053)015-890105 [address] [place] [address] 05-10-2022 11:40-0500 Body weight 114.[address] Ilya Monroe Work Phone: 8(673)277-858305 [address] [place] [address] 05-06-2022 13:29-0500 Body mass index (BMI) [Ratio] 35.1 kg/m2 Dr. Ilya Monroe Work Phone: 7(324)763-515605 [address] [place] [address] 05-06-2022 13:29-0500 Body weight 114.[address] Ilya Monroe Work Phone: 4(885)054-832505 [address] [place] [address] 05-06-2022 13:29-0500 Diastolic blood pressure 73 mm[Hg] Dr. Ilya Monroe Work Phone: 2(951)786-723205 [address] [place] [address] 05-06-2022 13:29-0500 Heart rate 69 /min Dr. Ilya Monroe Work Phone: [facility] 05-06-2022 13:29-0500 Respiratory rate 18 /min Dr. Ilya Monroe Work Phone: [facility] 05-06-2022 13:29-0500 SaO2% (BldA) [Mass fraction] 95 % Dr. Ilya Monroe Work Phone: [facility] 05-06-2022 13:29-0500 Systolic blood pressure 148 mm[Hg] Dr. Ilya Monroe Work Phone: [facility] 05-05-2022 15:22-0500 Body temperature 98.8 [degF] Keshawn Hastings MD Work Phone: [facility] 05-05-2022 15:22-0500 Body weight 115.21 kg Keshawn Hastings MD Work Phone: [facility] 05-05-2022 15:22-0500 Diastolic blood pressure 76 mm[Hg] Keshawn Hastings MD Work Phone: [facility] 05-05-2022 15:22-0500 Heart rate 76 /min Keshawn Hastings MD Work Phone: [facility] 05-05-2022 15:22-0500 Respiratory rate 16 /min Keshawn Hastings MD Work Phone: [facility] 05-05-2022 15:22-0500 SaO2% (BldA) [Mass fraction] 95 % Keshawn Hastings MD Work Phone: [facility] 05-05-2022 15:22-0500 Systolic blood pressure 132 mm[Hg] Keshawn Hastings MD Work Phone: [facility] 02-22-2022 09:34-0500 Body weight 111.58 kg Adriana Joya APRN.WINDER HELPER Work Phone: [facility] 02-22-2022 09:34-0500 Diastolic blood pressure 76 mm[Hg] Adriana Joya APRN.WINDER HELPER Work Phone: [facility] 02-22-2022 09:34-0500 Heart rate 60 /min Adriana Joya HR RECRUITER.WINDER HELPER Work Phone: [facility] 02-22-2022 09:34-0500 Respiratory rate 16 /min Adriana Kaurs HR RECRUITER.WINDER HELPER Work Phone: [facility] 02-22-2022 09:34-0500 Systolic blood pressure 136 mm[Hg] Adrianakenji Kaurs HR RECRUITER.WINDER HELPER Work Phone: [facility] 12-11-2021 10:40-0400 Body height 182.9 cm Ronit Brown HR RECRUITER.BURRING WHEEL OPERATOR Work Phone: [facility] 12-11-2021 10:40-0400 Body weight 110.22 kg Ronit Brown APRN.BURRING WHEEL OPERATOR Work Phone: [facility] 12-11-2021 10:40-0400 Diastolic blood pressure 80 mm[Hg] Ronit Brown HR RECRUITER.BURRING WHEEL OPERATOR Work Phone: [facility] 12-11-2021 10:40-0400 Systolic blood pressure 130 mm[Hg] Ronit Brown HR RECRUITER.BURRING WHEEL OPERATOR Work Phone: [facility] 09-28-2021 10:51-0400 Diastolic Blood Pressure NBP [address] RASHID ESPINOZA MD [facility] 09-28-2021 10:51-0400 Heart rate 81 /min DR RASHID ESPINOZA MD [facility] 09-28-2021 10:51-0400 Respiratory rate 23 /min DR RASHID ESPINOZA MD [facility] 09-28-2021 10:51-0400 Systolic Blood Pressure NBP [address] RASHID ESPINOZA MD [facility] 09-28-2021 10:47-0400 Diastolic Blood Pressure NBP [address] RASHID ESPINOZA MD [facility] 09-28-2021 10:47-0400 Heart rate 73 /min DR RASHID ESPINOZA MD [facility] 09-28-2021 10:47-0400 Respiratory rate 22 /min DR RASHID ESPINOZA MD [facility] 09-28-2021 10:47-0400 Systolic Blood Pressure NBP [address] RASHID ESPINOZA MD [facility] 09-28-2021 10:38-0400 Diastolic Blood Pressure NBP [address] RASHID ESPINOZA MD [facility] 09-28-2021 10:38-0400 Heart rate 61 /min DR RASHID ESPINOZA MD [facility] 09-28-2021 10:38-0400 Respiratory rate 18 /min DR RASHID ESPINOZA MD [facility] 09-28-2021 10:38-0400 Systolic Blood Pressure NBP [address] RASHID ESPINOZA MD [facility] 09-28-2021 08:48-0400 Body height 182.[address] RASHID ESPINOZA MD [facility] 09-28-2021 08:48-0400 Body temperature 97.88 [degF] DR RASHID ESPINOZA MD [facility] 09-28-2021 08:48-0400 Body weight 104.[address] RASHID ESPINOZA MD [facility] 09-28-2021 08:48-0400 diastolic 74 mm[Hg] DR RASHID ESPINOZA MD [facility] 09-28-2021 08:48-0400 Heart rate 53 /min DR RASHID ESPINOZA MD [facility] 09-28-2021 08:48-0400 systolic 131 mm[Hg] DR RASHID ESPINOZA MD [facility] 09-01-2021 12:30-0400 Body temperature 97.11 [degF] Froylan Dorsey APRN.BURRING WHEEL OPERATOR Work Phone: [facility] 09-01-2021 12:30-0400 Body weight 115.85 kg Froylan Dosrey APRN.BURRING WHEEL OPERATOR Work Phone: [facility] 09-01-2021 12:30-0400 Diastolic blood pressure 80 mm[Hg] Froylan Dorsey HR RECRUITER.BURRING WHEEL OPERATOR Work Phone: [facility] 09-01-2021 12:30-0400 Heart rate 83 /min Froylan Dorsey APRN.BURRING WHEEL OPERATOR Work Phone: [facility] 09-01-2021 12:30-0400 Respiratory rate 18 /min Froylan Dorsey APRN.BURRING WHEEL OPERATOR Work Phone: [facility] 09-01-2021 12:30-0400 SaO2% (BldA) [Mass fraction] 97 % Froylan Dorsey APRN.BURRING WHEEL OPERATOR Work Phone: [facility] 09-01-2021 12:30-0400 Systolic blood pressure 132 mm[Hg] Froylan Dorsey APRN.CNP Work Phone: [facility] 08-17-2021 16:32-0400 Body weight 112.95 kg Iyla Monroe MD Work Phone: [facility] 08-17-2021 16:32-0400 Diastolic blood pressure 72 mm[Hg] Ilya Monroe MD Work Phone: [facility] 08-17-2021 16:32-0400 Heart rate 62 /min Ilya Monroe MD Work Phone: [facility] 08-17-2021 16:32-0400 Systolic blood pressure 122 mm[Hg] Ilya Monroe MD Work Phone: [facility] 08-05-2021 10:14-0400 Body temperature 96.8 [degF] Sunni Athy PA-C Work Phone: [facility] 08-05-2021 10:14-0400 Body weight 112.86 kg Sunni Athy PA-C Work Phone: [facility] 08-05-2021 10:14-0400 Diastolic blood pressure 78 mm[Hg] Sunni Athy PA-C Work Phone: [facility] 08-05-2021 10:14-0400 Heart rate 58 /min Sunni Athy PA-C Work Phone: [facility] 08-05-2021 10:14-0400 Respiratory rate 21 /min Sunni Athy PA-C Work Phone: [facility] 08-05-2021 10:14-0400 SaO2% (BldA) [Mass fraction] 96 % Sunni Athy PA-C Work Phone: [facility] 08-05-2021 10:14-0400 Systolic blood pressure 120 mm[Hg] Sunni Athy PA-C Work Phone: [facility] 06-30-2021 12:36-0400 Body height 180.[address] Ilya Monroe Work Phone: [facility] Work Phone: 06-30-2021 12:36-0400 Body mass index (BMI) [Ratio] 34.2 kg/m2 Dr. Ilya Monroe Work Phone: [facility] Work Phone: 06-30-2021 12:36-0400 Body temperature 97.5 [degF] Dr. Ilya Monroe Work Phone: [facility] Work Phone: 06-30-2021 12:36-0400 Body weight 111.[address] Ilya Monroe Work Phone: [facility] Work Phone: 06-30-2021 12:36-0400 Diastolic blood pressure 74 mm[Hg] Dr. Ilya Monroe Work Phone: [facility] Work Phone: 06-30-2021 12:36-0400 Heart rate 65 /min Dr. Ilya Monroe Work Phone: [facility] Work Phone: 06-30-2021 12:36-0400 Respiratory rate 18 /min Dr. Ilya Monroe Work Phone: [facility] Work Phone: 06-30-2021 12:36-0400 SaO2% (BldA) [Mass fraction] 97 % Dr. Ilya Monroe Work Phone: [facility] Work Phone: 06-30-2021 12:36-0400 Systolic blood pressure 132 mm[Hg] Dr. Ilya Monroe Work Phone: [facility] Work Phone: 06-29-2021 13:59-0400 Body mass index (BMI) [Ratio] 34.5 kg/m2 Dr. Ilya Monroe Work Phone: [facility] Work Phone: 06-29-2021 13:59-0400 Body weight 112.[address] Ilya Monroe Work Phone: [facility] Work Phone: 06-29-2021 13:59-0400 Diastolic blood pressure 74 mm[Hg] Dr. Ilya Monroe Work Phone: [facility] Work Phone: 06-29-2021 13:59-0400 Heart rate 89 /min Dr. Ilya Monroe Work Phone: [facility] Work Phone: 06-29-2021 13:59-0400 Respiratory rate 18 /min Dr. Ilya Monroe Work Phone: [facility] Work Phone: 06-29-2021 13:59-0400 SaO2% (BldA) [Mass fraction] 97 % Dr. Ilya Monroe Work Phone: [facility] Work Phone: 06-29-2021 13:59-0400 Systolic blood pressure 132 mm[Hg] Dr. Ilya Monroe Work Phone: [facility] Work Phone: 06-03-2021 14:00-0500 Heart rate 74 /min Dr. Ilya Monroe Work Phone: [facility] Work Phone: 06-03-2021 13:30-0500 SaO2% (BldA) [Mass fraction] 96 % Dr. Ilya Monroe Work Phone: [facility] Work Phone: 06-03-2021 13:26-0500 Body temperature 98.3 [degF] Dr. Ilya Monroe Work Phone: [facility] Work Phone: 06-03-2021 13:26-0500 Diastolic blood pressure 58 mm[Hg] Dr. Ilya Monroe Work Phone: [facility] Work Phone: 06-03-2021 13:26-0500 Respiratory rate 16 /min Dr. Ilya Mornoe Work Phone: [facility] Work Phone: 06-03-2021 13:26-0500 Systolic blood pressure 112 mm[Hg] Dr. Ilya Monroe Work Phone: [facility] Work Phone: 06-03-2021 03:45-0500 Body weight 110.[address] Ilya Monroe Work Phone: [facility] Work Phone: 06-02-2021 15:39-0500 Body mass index (BMI) [Ratio] 32.8 kg/m2 Dr. Ilya Monroe Work Phone: [facility] Work Phone: 06-02-2021 08:56-0500 Body mass index (BMI) [Ratio] 34.8 kg/m2 Dr. Ilya Monroe Work Phone: [facility] Work Phone: 06-02-2021 08:56-0500 Body weight 110.[address] Ilya Monroe Work Phone: [facility] Work Phone: 06-02-2021 08:56-0500 Diastolic blood pressure 79 mm[Hg] Dr. Ilya Monroe Work Phone: [facility] Work Phone: 06-02-2021 08:56-0500 Heart rate 70 /min Dr. Ilya Monroe Work Phone: [facility] Work Phone: 06-02-2021 08:56-0500 Respiratory rate 18 /min Dr. Ilya Monroe Work Phone: [facility] Work Phone: 06-02-2021 08:56-0500 SaO2% (BldA) [Mass fraction] 99 % Dr. Ilya Monroe Work Phone: [facility] Work Phone: 06-02-2021 08:56-0500 Systolic blood pressure 130 mm[Hg] Dr. Ilya Monroe Work Phone: [facility] Work Phone: 05-22-2021 13:05-0500 Body mass index (BMI) [Ratio] 34.7 kg/m2 Dr. Ilya Monroe Work Phone: [facility] Work Phone: 05-22-2021 13:05-0500 Body temperature 97.5 [degF] Dr. Ilya Monroe Work Phone: [facility] Work Phone: 05-22-2021 13:05-0500 Body weight 109.[address] Ilya Monroe Work Phone: [facility] Work Phone: 05-22-2021 13:05-0500 Diastolic blood pressure 80 mm[Hg] Dr. Ilya Monroe Work Phone: [facility] Work Phone: 05-22-2021 13:05-0500 Heart rate 67 /min Dr. Ilya Monroe Work Phone: [facility] Work Phone: 05-22-2021 13:05-0500 Respiratory rate 16 /min Dr. Ilya Monroe Work Phone: [facility] Work Phone: 05-22-2021 13:05-0500 SaO2% (BldA) [Mass fraction] 93 % Dr. Ilya Monroe Work Phone: [facility] Work Phone: 05-22-2021 13:05-0500 Systolic blood pressure 135 mm[Hg] Dr. Ilya Monroe Work Phone: [facility] Work Phone: 05-15-2021 14:26-0500 Body mass index (BMI) [Ratio] 34.7 kg/m2 Dr. Ilya Monroe Work Phone: [facility] Work Phone: 05-15-2021 14:26-0500 Body weight 109.[address] Ilya Monroe Work Phone: [facility] Work Phone: 05-15-2021 14:26-0500 Diastolic blood pressure 75 mm[Hg] Dr. Ilya Monroe Work Phone: [facility] Work Phone: 05-15-2021 14:26-0500 Heart rate 67 /min Dr. Ilya Monroe Work Phone: [facility] Work Phone: 05-15-2021 14:26-0500 Respiratory rate 18 /min Dr. Ilya Monroe Work Phone: [facility] Work Phone: 05-15-2021 14:26-0500 SaO2% (BldA) [Mass fraction] 96 % Dr. Ilya Monroe Work Phone: [facility] Work Phone: 05-15-2021 14:26-0500 Systolic blood pressure 123 mm[Hg] Dr. Ilya Monroe Work Phone: [facility] Work Phone: 04-22-2021 17:37-0500 Body temperature 97.5 [degF] Dr. Ilya Monroe Work Phone: [facility] Work Phone: 04-22-2021 17:37-0500 Diastolic blood pressure 68 mm[Hg] Dr. Ilya Monroe Work Phone: [facility] Work Phone: 04-22-2021 17:37-0500 Heart rate 48 /min Dr. Ilya Monroe Work Phone: [facility] Work Phone: 04-22-2021 17:37-0500 Respiratory rate 18 /min Dr. Ilya Monroe Work Phone: [facility] Work Phone: 04-22-2021 17:37-0500 SaO2% (BldA) [Mass fraction] 96 % Dr. Ilya Monroe Work Phone: [facility] Work Phone: 04-22-2021 17:37-0500 Systolic blood pressure 142 mm[Hg] Dr. Ilya Monroe Work Phone: [facility] Work Phone: 04-20-2021 09:35-0500 Body weight 106.[address] Ilya Monroe Work Phone: [facility] Work Phone: 04-19-2021 14:40-0500 Body mass index (BMI) [Ratio] 33.5 kg/m2 Dr. Ilya Monroe Work Phone: [facility] Work Phone: 04-10-2021 09:24-0500 Heart rate 88 /min Dr. Ilya Monroe Work Phone: [facility] Work Phone: 04-10-2021 09:24-0500 Respiratory rate 16 /min Dr. Ilya Monroe Work Phone: [facility] Work Phone: 04-10-2021 09:24-0500 SaO2% (BldA) [Mass fraction] 96 % Dr. Ilya Monroe Work Phone: [facility] Work Phone: 04-10-2021 08:12-0500 Body mass index (BMI) [Ratio] 33 kg/m2 Dr. Ilya Monroe Work Phone: [facility] Work Phone: 04-10-2021 08:12-0500 Body temperature 96.8 [degF] Dr. Ilya Monroe Work Phone: [facility] Work Phone: 04-10-2021 08:12-0500 Body weight 107.[address] Ilya Monroe Work Phone: [facility] Work Phone: 04-10-2021 08:12-0500 Diastolic blood pressure 69 mm[Hg] Dr. Ilya Monroe Work Phone: [facility] Work Phone: 04-10-2021 08:12-0500 Systolic blood pressure 148 mm[Hg] Dr. Ilya Monroe Work Phone: [facility] Work Phone: 03-31-2021 07:09-0500 Body temperature 97.8 [degF] Dr. Ilya Monroe Work Phone: [facility] Work Phone: 03-31-2021 07:09-0500 Body weight 111.[address] Ilya Monroe Work Phone: [facility] Work Phone: 03-31-2021 07:09-0500 Diastolic blood pressure 80 mm[Hg] Dr. Ilya Monroe Work Phone: [facility] Work Phone: 03-31-2021 07:09-0500 Heart rate 58 /min Dr. Ilya Monroe Work Phone: [facility] Work Phone: 03-31-2021 07:09-0500 SaO2% (BldA) [Mass fraction] 96 % Dr. Ilya Monroe Work Phone: [facility] Work Phone: 03-31-2021 07:09-0500 Systolic blood pressure 157 mm[Hg] Dr. Ilya Monroe Work Phone: [facility] Work Phone: 03-05-2020 08:43-0500 Body mass index (BMI) [Ratio] 33.3 kg/m2 Dr. Ilya Monroe Work Phone: [facility] Work Phone: 08-26-2019 05:30-0400 BP Diastolic 84 mm[Hg] [facility] 08-26-2019 05:30-0400 BP Systolic 155 mm[Hg] [facility] 08-26-2019 05:30-0400 Pulse (Heart Rate) 64 /min [facility] 08-26-2019 05:30-0400 Pulse Oximetry 94 % [facility] 08-26-2019 05:30-0400 Respiratory Rate 16 /min [facility] 08-26-2019 01:15-0400 BMI (Body Mass Index) 31.33 kg/m2 [facility] 08-26-2019 01:15-0400 Body Temperature 98.71 [degF] [facility] 08-26-2019 01:15-0400 Body weight 104.78 kg [facility] 08-26-2019 01:15-0400 Height 182.9 cm [facility] 08-24-2019 01:15-0400 Pulse (Heart Rate) 86 /min [facility] 08-24-2019 01:15-0400 Pulse Oximetry 93 % [facility] 08-23-2019 22:07-0400 BMI (Body Mass Index) 31.33 kg/m2 [facility] 08-23-2019 22:07-0400 Body Temperature 99 [degF] Tino Rousseau [facility] 08-23-2019 22:07-0400 Body weight 104.78 kg Tino Rousseau [facility] 08-23-2019 22:07-0400 BP Diastolic 78 mm[Hg] Tinorubén Rousseau [facility] 08-23-2019 22:07-0400 BP Systolic 167 mm[Hg] Tinorubén Rousseau [facility] 08-23-2019 22:07-0400 Respiratory Rate 18 /min Tino Rousseau [facility] 08-20-2019 21:45-0400 BP Diastolic 74 mm[Hg] Jamaal Irvin [facility] 08-20-2019 21:45-0400 BP Systolic 157 mm[Hg] Jamaal Egal [facility] 08-20-2019 21:45-0400 Pulse (Heart Rate) 73 /min Jamaal breanne [facility] 08-20-2019 21:45-0400 Pulse Oximetry 99 % Jamaal [facility] 08-20-2019 21:45-0400 Respiratory Rate 16 /min [facility] 19:31-0400 BMI (Body Mass Index) 31.33 kg/m2 [facility] 08-20-2019 19:31-0400 Body Temperature 98.49 [degF] Jamaal Egal [facility] 08-20-2019 19:31-0400 Body weight 104.78 kg Jamaal Egal [facility] 08-20-2019 19:31-0400 Height 182.9 cm [facility] En[facility]ters Encounter Date Encounter Type Care Provider Facility Start: 02-20-2025 End: 02-20-2025 Emergency department patient visit Gilles Mora Facility:[facility] Start: 02-14-2025 End: 02-14-2025 ambulatory Ilya Monroe Facility:[facility] Start: 01-24-2025 End: 01-24-2025 ambulatory Sowmya Beard Facility:[facility] Start: 01-19-2025 ambulatory ILYA TALAMPAS Facility: [facility] Start: 01-16-2025 End: 01-16-2025 ambulatory ILYA TALAMPAS Facility:[facility] Start: 01-14-2025 End: 01-14-2025 ambulatory ILYA TALAMPAS Facility:[facility] Start: 12-28-2024 End: 12-28-2024 ambulatory [facility] Facility:[facility] Start: 12-04-2024 End: 12-04-[address] Ilya Monroe MD Work Phone: -[facility] Start: 12-04-2024 End: 12-04-[address] 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 (Primary Dx); Pseudophakia; Asteroid hyalosis of right eye; Dry eye syndrome of bilateral lacrimal glands Start: 11-08-2024 End: 11-08-2024 [facility] Start: 10-24-2024 End: 10-24-2024 Patient encounter procedure Heriberto Disla MD Work Phone: Hematology/Oncology Start: 10-24-2024 End: 10-24-2024 ambulatory Heriberto Disla MD Work Phone: Hematology/Oncology Comment on above: Malignant neoplasm o f breast in female, estrogen receptor positive, unspecified laterality, unspecified site of breast (HCC) (Primary Dx); 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) [facility] Oral Oncology/he matology - Medication Refill (Ibrance 75mg); [facility] Oral Oncology/hematology - No-go (KO to [employer]) Invasive ductal carc inoma of breast, left (HCC) (Primary Dx) Refill Request Start: 10-16-2024 End: 10-16-2024 Follow-up encounter Ashley Gunter APRN.CNP Work Phone: [facility] [place] Comment on above: Results Start: 10-15-2024 End: 10-15-2024 Office outpatient visit 15 minutes Keshawn Hastings MD Work Phone: [facility] Comment on above: Sore throat (Primary Dx) Start: 10-15-2024 End: 10-15-2024 ambulatory [facility] Facility:[facility] Start: 10-11-2024 End: 12-11-2024 Follow-up encounter Mustapha Silverio APRN.CNM Work Phone: OB/Gynecology Start: 10-09-2024 End: 10-10-2024 Telephone encounter Heriberto Disla MD Work Phone: Hematology/Oncology Comment on above: Opened In Error Results Start: 10-09-2024 End: 10-09-2024 Emergency department patient visit Dr. Ilya Monroe MD Work Phone: -Emergency Department Work Phone: Start: 10-08-2024 End: 10-08-2024 Patient encounter procedure Mustapha Silverio APRN.CNAnny Work Phone: OB/Gynecology Comment on above: Vaginal discharge (P rimary Dx); Vagina itching; Invasive ductal carcinoma of breast, left (HCC); Postmenopausal atrophic vaginitis Start: 10-08-2024 End: 10-08-2024 [facility] Facility:[facility] Start: 09-27-2024 End: 09-27-2024 Office outpatient visit 25 minutes Adrianakenji Joya YOANDY Work Phone: Internal Medicine [place] Comment on above: Dizziness (Primary D x); Dark urine; Situational mixed anxiety and depressive disorder; Encounter for immunization; Vulvar irritation Start: 09-27-2024 End: 09-27-2024 ambulatory [facility] Facility:[facility] Start: 09-22-2024 End: 09-22-2024 ambulatory Ilya Monroe MD Work Phone: [facility] [place] Comment on above: Anxiety Start: 09-21-2024 End: 09-24-2024 ambulatory Ilya Monroe MD Work Phone: [facility] [place] Comment on above: Medication Question Refill Request Start: 09-12-2024 End: 09-13-2024 Follow-up encounter Albert Holland PA-C Work Phone: Urology Comment on above: Results Start: 09-12-2024 End: 09-13-2024 Telephone encounter Albert Holland PA-C Work Phone: Urology Start: 09-11-2024 End: 09-11-2024 Patient encounter procedure Albert Holland PA-C Work Phone: Urology Comment on above: Hematuria, unspecifi ed type (Primary Dx); Burning with urination; Screening for genitourinary condition Start: 09-11-2024 End: 09-11-2024 [facility] Facility:[facility] Start: 09-09-2024 End: 09-09-2024 Emergency department patient visit Dr. Ilya Monroe MD Work Phone: -Emergency Department Work Phone: Start: 09-09-2024 End: 09-09-2024 Patient encounter procedure Iván Stone APRN.BURRING WHEEL OPERATOR Work Phone: [facility] Comment on above: Headache, unspecifie d headache type (Primary Dx) Start: 09-09-2024 End: 09-09-2024 [facility] Facility:[facility] Start: 09-07-2024 End: 09-07-2024 Patient encounter procedure Heriberto Disla MD Work Phone: Hematology/Oncology Start: 09-07-2024 End: 09-07-2024 ambulatory Heriberto Disla MD Work Phone: Hematology/Oncology Comment on above: Invasive ductal carc inoma of breast, left (HCC) (Primary Dx); 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) [facility] Oral Oncology/he matology - Medication Refill (Ibrance 100mg ); Insurance Authorization ([place] Pending) Start: 08-20-2024 [facility] Facility: [facility] Start: 08-20-2024 End: 08-20-2024 Subsequent hospital visit by physician [facility] Work Phone: Nuclear Medicine Comment on above: Malignant neoplasm o f breast in female, estrogen receptor positive, unspecified laterality, unspecified site of breast (HCC) [C50.919, Z17.0] Start: 08-20-2024 End: 08-22-2024 Follow-up encounter Preet Mares APRN.CNP Work Phone: OB/Gynecology Comment on above: Results Start: 08-20-2024 [facility] Facility: [facility] Start: 08-20-2024 End: 08-20-2024 [facility] Comment on above: Malignant neoplasm o f breast in female, estrogen receptor positive, unspecified laterality, unspecified site of breast (HCC) [C50.919, Z17.0] Start: 08-17-2024 End: 08-17-2024 Patient encounter procedure Preet Mares APRN.BURRING WHEEL OPERATOR Work Phone: OB/Gynecology Comment on above: Dysuria (Primary Dx) ; Hematuria, unspecified type Start: 08-17-2024 End: 08-17-2024 [facility] Facility:[facility] Start: 08-16-2024 End: 10-16-2024 Follow-up encounter Adriana Joya APRN.CNS Work Phone: [facility] [place] Start: 08-16-2024 End: 08-16-2024 Telephone encounter Reina Burgess APRN.CNM Work Phone: OB/Gynecology Comment on above: Patient Update (Urin e ) Start: 08-15-2024 [facility] Facility: [facility] Start: 08-15-2024 End: 08-15-2024 Subsequent hospital visit by physician [facility] Work Phone: Radiology Comment on above: Invasive ductal carc inoma of breast, 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] Breast asymmetry [N6 4.89] Start: 08-13-2024 End: 10-13-2024 Follow-up encounter Mary Daniel MD Work Phone: OB/Gynecology Start: 08-09-2024 End: 08-09-2024 Patient encounter procedure Jules Scott INTERNATIONAL LOGISTICS ANALYSTMercedezC -[facility] Work Phone: Start: 08-09-2024 End: 08-09-2024 [facility] Start: 08-03-2024 End: 08-03-2024 ambulatory REINA BURGESS Facility:[facility] Start: 08-03-2024 Encounter for gynecological examination (general) (routine) with abnormal findings REINA BURGESS [facility] Start: 08-01-2024 End: 08-01-2024 Patient encounter procedure Heriberto Disla MD Work Phone: Hematology/Oncology Start: 08-01-2024 End: 08-01-2024 ambulatory Heriberto Disla MD Work Phone: Hematology/Oncology Comment on above: Malignant neoplasm o f breast in female, estrogen receptor positive, unspecified laterality, unspecified site of breast (HCC) (Primary Dx); 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) Start: 07-12-2024 End: 07-12-2024 Telephone encounter Adriana Joya APRN.WINDER HELPER Work Phone: [facility] [place] Comment on above: Medication Request Start: 07-06-2024 End: 07-06-2024 Follow-up encounter Adriana Joya APRN.WINDER HELPER Work Phone: [facility] [place] Comment on above: Results Start: 07-05-2024 End: [facility] Start: 07-05-2024 End: 07-05-2024 Office outpatient visit 15 minutes Adriana Joya APRN.WINDER HELPER Work Phone: [facility] [place] Comment on above: Acute cough (Primary Dx); Sinobronchitis; Nasal congestion; Carcinoma of breast metastatic to multiple sites, unspecified laterality (HCC) Start: 07-03-2024 [facility] Facility: [facility] Start: 06-27-2024 End: 06-27-2024 Telephone encounter Ania DASH Hematology/Oncology Comment on above: Social Work Services Start: 06-22-2024 End: 08-22-2024 Follow-up encounter Adriana Joya APRN.WINDER HELPER Work Phone: [facility] [place] Comment on above: Results Start: 06-22-2024 End: 06-22-2024 ambulatory Pulm [facility] Work Phone: PULM [facility] Comment on above: Spirometry Start: 06-22-2024 End: 06-22-2024 Patient encounter procedure [facility] Work Phone: [facility] Start: 06-19-2024 End: 06-19-2024 Telephone encounter Heriberto Disla MD Work Phone: Hematology/Oncology Comment on above: Patient Question Start: 06-18-2024 End: 06-18-2024 Follow-up encounter Adrianakenji Joya APRN.WINDER HELPER Work Phone: [facility] [place] Comment on above: Asthma, unspecified asthma severity, unspecified whether complicated, unspecified whether persistent (Primary Dx) Breast asymmetry (Pr imary Dx); Invasive ductal carcinoma of breast, left (HCC) Start: 06-18-2024 End: 06-18-[address] Ilya Monroe MD Work Phone: [facility] Work Phone: Start: 06-18-2024 End: 06-18-[address] Rashid Espinoza MD -Radiology, [facility] Work Phone: Start: 06-18-2024 End: 06-18-2024 ambulatory Ilya Monroe Facility:[facility] Start: 06-15-2024 End: 06-15-2024 ambulatory ILYA MONROE Facility:[facility] Start: 06-15-2024 End: 06-15-2024 Subsequent hospital visit by physician Screen Mammo [facility] Mammogram Comment on above: Encounter for screen ing mammogram for breast cancer [Z12.31] Start: 06-14-2024 End: 06-14-2024 ambulatory [facility] Work Phone: PULM LAB [facility] Comment on above: Spirometry Start: 06-14-2024 End: 06-14-2024 Patient encounter procedure [facility] Work Phone: PULM LAB [facility] Start: 06-12-2024 End: 06-12-2024 [facility] Facility:[facility] Start: 06-12-2024 End: 06-12-2024 Patient encounter procedure Adriana Joya APRN.WINDER HELPER Work Phone: [facility] [place] Comment on above: Encounter for immuni zation (Primary Dx); Screening for cervical cancer; Screening for colon cancer; Encounter for screening mammogram for breast cancer; Hypertension; Asthma; Encounter for screening examination for other mental health and behavioral disorders; Depression, unspecified depression type; Allergic rhinitis, unspecified seasonality, unspecified trigger; DDD (degenerative disc disease), lumbar; Bilateral sciatica; Fibromyalgia; Essential hypertension; Benign paroxysmal positional vertigo, unspecified laterality; Atherosclerosis of [place] coronary artery of [place] heart without angina pectoris Start: 06-05-2024 End: 06-05-2024 Follow-up encounter Jean Carlos Avila MD Work Phone: Internal [facility] [place] Start: 06-04-2024 End: 06-04-2024 [facility] Facility:[facility] Start: 06-04-2024 End: 06-04-2024 Office outpatient visit 15 minutes Jean Carlos Avila MD Work Phone: Internal Medicine [place] Comment on above: Sore throat (Primary Dx); Mild asthma without complication, unspecified whether persistent Start: 05-26-2024 End: 05-26-2024 Follow-up encounter Jean Carlos Avila MD Work Phone: Internal Medicine [place] Start: 05-23-2024 End: 05-23-2024 [facility] Facility:[facility] Start: 05-23-2024 End: 05-23-2024 Office outpatient visit 15 minutes Jean Carlos Avila MD Work Phone: Internal Medicine [place] Comment on above: Dysuria (Primary Dx) ; Primary hypertension; Need for COVID-19 vaccine Start: 05-21-2024 End: 05-21-2024 Follow-up encounter Juliette SON Work Phone: [facility] Start: 05-20-2024 End: 07-20-2024 Follow-up encounter Ronny Anton HR RECRUITER.BURRING WHEEL OPERATOR Work Phone: [facility] Start: 05-20-2024 End: 05-20-2024 Telephone encounter Ashley Gunter HR RECRUITER.BURRING WHEEL OPERATOR Work Phone: [facility] Comment on above: Results; Orders Start: 05-19-2024 End: 05-19-2024 ambulatory ILYA TALAMPAS Facility:[facility] Start: 05-19-2024 End: 05-19-2024 Patient encounter procedure Jenniffer Garcia HR RECRUITER.BURRING WHEEL OPERATOR Work Phone: [facility] Comment on above: Burning with urinati on (Primary Dx); Thrush Start: 05-09-2024 End: 05-09-2024 Patient encounter procedure Chandrakant Kelley Work Phone: Hematology/Oncology Start: 05-09-2024 End: 05-09-2024 ambulatory Treatment Rm 15 [facility] Work Phone: Hematology/Oncology Comment on above: Invasive ductal carc inoma of breast, left (HCC) (Primary Dx) Invasive ductal carc inoma of breast, left (HCC) (Primary Dx); 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) Start: 05-08-2024 End: 05-08-2024 Telephone encounter Martha DASH Work Phone: Adult Psychology Comment on above: Behavioral Health/So cial Work Start: 05-04-2024 End: 05-04-2024 Telephone encounter Martha DASH Work Phone: Adult Psychology Comment on above: Behavioral Health/So cial Work Start: 05-03-2024 End: 05-03-2024 ambulatory Geovanna Salcido RN Work Phone: Environmental Compliance Inspector Management Comment on above: Primary Care Coordin ator- Other (BHSW screening) Start: 03-23-2024 End: 03-23-2024 Emergency department patient visit Dr. Corona Waters -Emergency Department Work Phone: Start: 03-20-2024 End: 03-20-2024 ambulatory ILYA MONROE Facility:[facility] Start: 03-20-2024 End: 03-20-2024 Office outpatient visit 15 minutes Adriana Kaurjoie BELL.WINDER HELPER Work Phone: Internal Medicine [place] Comment on above: Sinobronchitis (Prim regi Dx); Nausea Start: 02-27-2024 End: 02-27-2024 Telephone encounter Ania DASH Hematology/Oncology Comment on above: 2024 Ibrance [employer] n[employer] Renewal Start: 02-15-2024 End: 02-15-2024 ambulatory Treatment Rm 15 [facility] Work Phone: Hematology/Oncology Comment on above: Invasive ductal carc inoma of breast, left (HCC) (Primary Dx) Start: 01-19-2024 End: 01-19-2024 Refill Heriberto Disla MD Work Phone: Hematology/Oncology Comment on above: Refill Request Start: 01-18-2024 End: 01-18-2024 Subsequent hospital visit by physician [facility] [place] Work Phone: Radiology Comment on above: Acute cough [R05.1] Start: 01-18-2024 End: 01-18-2024 Patient encounter procedure Iván Stone APRN.BURRING WHEEL OPERATOR Work Phone: [facility] Comment on above: Acute cough (Primary Dx) Start: 12-28-2023 End: 12-28-2023 Subsequent hospital visit by physician [facility] 1 Work Phone: Radiology Comment on above: Invasive ductal carc inoma of breast, 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] Start: 12-23-2023 End: 12-23-2023 ambulatory Heirberto Disla MD Work Phone: Hematology/Oncology Comment on above: Invasive ductal carc inoma of breast, left (HCC) (Primary Dx); 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) Start: 12-23-2023 End: 12-23-2023 Patient encounter procedure Heriberto Disla MD Work Phone: Hematology/Oncology Start: 12-15-2023 End: 12-15-2023 Subsequent hospital visit by physician [facility] Work Phone: Nuclear Medicine Comment on above: Malignant neoplasm o f breast in female, estrogen receptor positive, unspecified laterality, unspecified site of breast (HCC) [C50.919, Z17.0] Start: 12-15-2023 End: 12-19-2023 ambulatory Mary Macias RN Work Phone: Environmental Compliance Inspector Management Comment on above: Community Monitoring Outreach Start: 12-15-2023 End: 12-15-2023 Subsequent hospital visit by physician Injection [facility] Work Phone: Nuclear Medicine Comment on above: Malignant neoplasm o f breast in female, estrogen receptor positive, unspecified laterality, unspecified site of breast (HCC) [C50.919, Z17.0] Start: 12-02-2023 End: 12-08-2023 Telephone encounter Ilya Monroe MD Work Phone: Internal Medicine [place] Comment on above: Results Start: 11-28-2023 End: 11-28-2023 Patient encounter procedure Sowmya Beard PA-C Work Phone: Orthopaedics Comment on above: Primary osteoarthrit is of right hip (Primary Dx); Pain of right hip Start: 11-28-2023 End: 11-28-2023 Office outpatient visit 25 minutes Ilya Monroe MD Work Phone: Internal Medicine [place] Comment on above: DDD (degenerative di sc disease), lumbar (Primary Dx); Bilateral sciatica; Fibromyalgia; Elevated glucose; Mixed hyperlipidemia; Sinus congestion; Sore throat; Postnasal drip Start: 11-23-2023 End: 11-23-2023 ambulatory Treatment Wstr Work Phone: Hematology/Oncology Comment on above: Lumbar disc disease (Primary Dx); Invasive ductal carcinoma of breast, left (HCC) Start: 11-23-2023 End: 11-23-2023 Patient encounter procedure Treatment Rm 15 [facility] Work Phone: Hematology/Oncology Start: 11-07-2023 Telephone encounter Financial Navigator Jace Work Phone: Hematology/Oncology Comment on above: Benefits Investigati on Start: 11-07-2023 End: 11-07-2023 Patient encounter procedure Madina Scott OD Work Phone: Ophthalmology Comment on above: 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 (Primary Dx); Pseudophakia; Asteroid hyalosis of right eye; Vitreous floaters of left eye; Dry eye syndrome of bilateral lacrimal glands Start: 10-26-2023 End: 10-26-2023 Subsequent hospital visit by physician [facility] [place] Work Phone: Radiology Comment on above: Malignant neoplasm o f breast in female, estrogen receptor positive, unspecified laterality, unspecified site of breast (HCC) [C50.919, Z17.0] Start: 10-26-2023 Telephone encounter Heriberto blue MD Work Phone: Hematology/Oncology Comment on above: AVS 10/26/23 Start: 10-26-2023 End: 10-26-2023 ambulatory Heriberto Disla MD Work Phone: Hematology/Oncology Comment on above: Malignant neoplasm o f breast in female, estrogen receptor positive, unspecified laterality, unspecified site of breast (HCC) (Primary Dx) Invasive ductal carc inoma of breast, left (HCC) (Primary Dx) Start: 10-26-2023 End: 10-26-2023 Patient encounter procedure Heriberto Disla MD Work Phone: Hematology/Oncology Start: 09-13-2023 End: 09-13-2023 ambulatory Heriberto Disla MD Work Phone: Hematology/Oncology Comment on above: Malignant neoplasm o f breast in female, estrogen receptor positive, unspecified laterality, unspecified site of breast (HCC) (Primary Dx); Carcinoma of breast metastatic to bone, unspecified laterality (HCC) Start: 09-13-2023 End: 09-13-2023 Patient encounter procedure Heriberto Disla MD Work Phone: Hematology/Oncology Start: 09-06-2023 Telephone encounter Nurse Kevin grimmor Work Phone: [facility] Start: 09-02-2023 Telephone encounter Dominga celis RN Work Phone: Hematology/Oncology Comment on above: Care Coordination Start: 08-22-2023 Telephone encounter Nurse Kevin burnett Work Phone: [facility] Comment on above: Patient Navigation Refill Request Start: 08-09-2023 Telephone encounter Nurse Kevin burnett Work Phone: [facility] Comment on above: Patient Navigation Start: 07-29-2023 Telephone encounter Dominga celis RN Work Phone: Hematology/Oncology Comment on above: Care Coordination Start: 07-25-2023 Telephone encounter Nurse Kevin burnett Work Phone: [facility] Comment on above: Patient Navigation Start: 07-20-2023 ambulatory Constance whittington RN Work Phone: Environmental Compliance Inspector Management Start: 07-15-2023 Telephone encounter Adriana kaur APRN.WINDER HELPER Work Phone: Internal Medicine [place] Comment on above: Forms Start: 07-12-2023 Telephone encounter Nurse Kevin burnett Work Phone: [facility] Comment on above: Patient Navigation Start: 07-06-2023 ambulatory Inna Pandya [facility] Start: 07-06-2023 Patient encounter procedure Inna Pandya [facility] Comment on above: SPP Oral Oncology/he matology - Treatment Referral (Ibrance); Insurance Authorization (Pending PA Submission) Start: 07-05-2023 End: 07-05-2023 ambulatory Heriberto Disla MD Work Phone: Hematology/Oncology Comment on above: Malignant neoplasm o f breast in female, estrogen receptor positive, unspecified laterality, unspecified site of breast (HCC) (Primary Dx) Start: 07-05-2023 End: 07-05-2023 Patient encounter procedure Heriberto Disla MD Work Phone: [facility] Start: 06-30-2023 Non-patient / Non-visit Dr. Jeannie Monroe Work Phone: [facility] Start: 06-30-2023 End: 06-30-[address] Ilya Monroe Work Phone: [facility] Work Phone: Start: 06-30-2023 End: 06-30-[address] Ilya Monroe Work Phone: [facility] Work Phone: Start: 06-27-2023 Telephone encounter Nurse Kevin burnett Work Phone: [facility] Comment on above: Patient Navigation Start: 06-24-2023 Telephone encounter Adriana kaur APRN.CNS Work Phone: Internal Medicine [place] Start: 06-23-2023 End: 06-23-2023 Subsequent hospital visit by physician [facility] Work Phone: Nuclear Medicine Comment on above: Malignant neoplasm o f breast in female, estrogen receptor positive, unspecified laterality, unspecified site of breast (HCC) [C50.919, Z17.0] Start: 06-13-2023 Telephone encounter Nurse Kevin burnett Work Phone: [facility] Comment on above: Patient Navigation Start: 06-08-2023 End: 06-08-2023 ambulatory Heriberto Disla MD Work Phone: Hematology/Oncology Comment on above: Malignant neoplasm o f breast in female, estrogen receptor positive, unspecified laterality, unspecified site of breast (HCC) (Primary Dx) Start: 06-08-2023 End: 06-08-2023 Patient encounter procedure Heriberto Disla MD Work Phone: [facility] Start: 06-06-2023 Telephone encounter Heriberto blue MD Work Phone: Hematology/Oncology Comment on above: Appointment Start: 06-06-[address] Ilya bobo Work Phone: [facility] Work Phone: Start: 06-03-2023 Telephone encounter Ilya gold MD Work Phone: Internal Medicine [place] Comment on above: Results Start: 06-01-2023 Telephone encounter Heriberto blue MD Work Phone: Hematology/Oncology Comment on above: Symptoms Start: 05-31-2023 Telephone encounter Nurse Kevin burnett Work Phone: [facility] Comment on above: Patient Navigation Start: 05-31-2023 End: 05-31-2023 Subsequent hospital visit by physician Bone Density [facility] Work Phone: Radiology Comment on above: Screening for osteop orosis [Z13.820] Start: 05-30-2023 Telephone encounter Nurse Kevin burnett Work Phone: [facility] Comment on above: Patient Navigation Start: 05-27-2023 End: 05-27-2023 Office outpatient visit 25 minutes Adriana Joya APRN.CNS Work Phone: Internal Medicine [place] Comment on above: Sore throat (Primary Dx); Essential hypertension; Depression, unspecified depression type; DDD (degenerative disc disease), lumbar; Bilateral sciatica; Fibromyalgia; Allergic rhinitis, unspecified seasonality, unspecified trigger; Benign paroxysmal positional vertigo, unspecified laterality; Acute cough; Asthma with acute exacerbation, unspecified asthma severity, unspecified whether persistent; Cough; Encounter for immunization; Need for shingles vaccine; Screening for osteoporosis; Asymptomatic menopause; Screening for colon cancer; 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y artery without angina pectoris Start: 05-16-2023 Telephone encounter Nurse Kevin burnett Work Phone: [facility] Comment on above: Patient Navigation Start: 04-29-2023 End: 04-29-[address] Ilya Monroe Work Phone: [facility] Work Phone: Start: 04-29-2023 End: 04-29-[address] Ilya Monroe Work Phone: [facility] Work Phone: Start: 04-28-2023 End: 04-28-[address] Ilya Monroe Work Phone: [facility] Work Phone: Start: 04-12-2023 End: 04-12-2023 ambulatory ILYA MONROE Facility:[facility] Start: 04-01-2023 End: 04-01-2023 ambulatory REINA MCGRAW Facility:[facility] Start: 04-01-2023 ambulatory GREGG BAE Facility: [facility] Start: 03-25-2023 ambulatory GREGG BAE Facility: [facility] Start: 03-25-2023 End: 03-25-2023 Subsequent hospital visit by physician Procedure Mammo [facility] Comment on above: Abnormal findings on diagnostic imaging of breast [R92.8] Start: 03-23-2023 End: 03-23-2023 Patient encounter procedure Eveline Griffin MD Work Phone: Radiation Oncology Comment on above: Secondary malignancy of axillary node (HCC) (Primary Dx) Start: 03-21-2023 Telephone encounter Nurse Kevin burnett Work Phone: [facility] Comment on above: Patient Navigation Start: 03-18-2023 Telephone encounter Gregg brooks MD Work Phone: [facility] Start: 03-17-2023 ambulatory GREGG BAE Facility: [facility] Start: 03-17-2023 End: 03-17-2023 Subsequent hospital visit by physician Mri 2 [facility] (I-Stat/Lg Bore/1.5t) RAD[facility] MRI [facility] Comment on above: 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, 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, C77.3] Start: 03-09-2023 Telephone encounter Heriberto blue MD Work Phone: Hematology/Oncology Comment on above: New Patient Start: 03-09-2023 End: 03-09-2023 Patient encounter procedure Gregg Bae MD Work Phone: [facility] Comment on above: 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, left (HCC) (Primary Dx); Vitamin D deficiency Start: 03-09-2023 End: 03-09-2023 ambulatory GREGG BAE Facility:[facility] Start: 02-28-2023 End: 02-28-2023 Patient encounter procedure Concetta Fang MD Work Phone: General Surgery Comment on above: Primary malignant ne oplasm of left breast with metastasis to movable ipsilateral level 1 or 2 axillary lymph nodes (N1) (HCC) (Primary Dx) Start: 02-22-2023 ambulatory CONCETTA FANG Facili ty:[facility] Start: 02-22-2023 End: 02-22-2023 Subsequent hospital visit by physician Stereo/Ultrasound Biopsy [facility] Comment on above: Arrived Start: 02-01-2023 Orders Only Concetta holloway MD Work Phone: General Surgery Comment on above: Abnormal ultrasound of breast (Primary Dx) Start: 01-31-2023 Telephone encounter Ronny mills APRN.CNP Work Phone: [facility] Comment on above: Results Start: 01-31-2023 End: 01-31-2023 Office outpatient visit 15 minutes Raven Crane PA-C Work Phone: [facility] Comment on above: Acute cough (Primary Dx) Start: 01-24-2023 Telephone encounter Concetta Montero MD Work Phone: General Surgery Comment on above: Patient Question Start: 01-20-2023 Telephone encounter Javier Doe Work Phone: Podiatry Comment on above: Results Start: 01-17-2023 End: 01-17-2023 Patient encounter procedure Concetta Fang MD Work Phone: General Surgery Comment on above: Abnormal ultrasound of breast (Primary Dx) Start: 01-15-2023 End: 01-15-2023 Emergency department patient visit Dr. Ilya Monroe Work Phone: [facility]-Emergency Department Work Phone: Start: 12-31-2022 Orders Only Ronit VALDIVIA RN.BURRING WHEEL OPERATOR Work Phone: OB/Gynecology Comment on above: Abnormal mammogram ( Primary Dx) Start: 12-22-2022 End: 12-22-[address] Ilya Monroe Work Phone: [facility] Work Phone: Start: 12-22-2022 End: 12-22-[address] Ilya Monroe Work Phone: [facility]-Radiology, [facility] Work Phone: Start: 12-20-2022 End: 12-20-2022 Patient encounter procedure Sowmya Beard PA-C Work Phone: Orthopaedics Comment on above: Primary osteoarthrit is of right hip (Primary Dx); Pain of right hip Start: 12-14-2022 End: 12-14-2022 Emergency department patient visit Dr. Ilya Monroe Work Phone: [facility]Emergency [facility] Work Phone: Start: 11-29-2022 End: 11-29-2022 Subsequent hospital visit by physician [facility] Work Phone: Radiology Comment on above: Foot pain, right [M7 9.671] Start: 11-19-2022 Telephone encounter Ronit durand APRN.BURRING WHEEL OPERATOR Work Phone: OB/Gynecology Comment on above: Results Start: 11-18-2022 End: 11-18-2022 Patient encounter procedure Ronit Brown APRN.BURRING WHEEL OPERATOR Work Phone: OB/Gynecology Comment on above: Vagina itching (Prim regi Dx); Postmenopausal atrophic vaginitis; Encounter for screening mammogram for breast cancer; Dense breast tissue Start: 10-25-2022 End: 10-25-[address] Ilya Monroe Work Phone: [facility] Work Phone: Start: 09-30-2022 End: 09-30-2022 Subsequent hospital visit by physician [facility] Work Phone: Radiology Comment on above: Right knee pain, uns pecified chronicity [M25.561] Start: 09-01-2022 Non-patient / Non-visit Dr. Jeannie Monroe Work Phone: [facility] Start: 09-01-2022 End: 09-01-[address] Ilya Monroe Work Phone: [facility] Work Phone: Start: 09-01-2022 End: 09-01-[address] Ilya Monroe Work Phone: [facility]-Pulmonary Services/Neurology Work Phone: Start: 08-23-2022 End: 08-23-2022 Office outpatient visit 25 minutes Adriana Joya APRN.WINDER HELPER Work Phone: Internal Medicine [place] Comment on above: Essential hypertensi on (Primary Dx); Purulent bronchitis (HCC); Acute respiratory failure with hypoxia (HCC); Asthma; Screening for HIV (human immunodeficiency virus); Depression, unspecified depression type; DDD (degenerative disc disease), lumbar; Bilateral sciatica; Fibromyalgia; Situational mixed anxiety and depressive disorder; IFG (impaired fasting glucose) Start: 08-18-2022 End: 08-18-2022 Patient encounter procedure Milton Giraldo MD Work Phone: Ophthalmology Comment on above: Pseudophakia (Primar y Dx); Vitreous floaters of left eye; Uveitis, anterior Start: 07-28-2022 End: 07-28-2022 Patient encounter procedure Milton Giraldo MD Work Phone: Ophthalmology Comment on above: Pseudophakia (Primar y Dx); Uveitis, anterior Start: 07-23-2022 End: 07-23-2022 Patient encounter procedure Madina Scott OD Work Phone: Ophthalmology Comment on above: Uveitis, intermediat e, left (Primary Dx); Uveitis, anterior; Pseudophakia; Combined forms of age-related cataract of both eyes; Asteroid hyalosis of right eye Start: 07-06-2022 End: 07-06-2022 Patient encounter procedure Madina Scott OD Work Phone: Ophthalmology Comment on above: Pseudophakia (Primar y Dx); Combined forms of age-related cataract of both eyes; Asteroid hyalosis of right eye Start: 07-02-2022 End: 07-02-[address] Ilya Monroe Work Phone: [facility]Pulmonary Medicine [facility] Work Phone: Start: 06-23-2022 End: 06-23-2022 Patient encounter procedure Milton Giraldo MD Work Phone: Ophthalmology Comment on above: Pseudophakia (Primar y Dx) Start: 06-10-2022 End: 06-10-2022 Emergency department patient visit Dr. Ilya Monroe Work Phone: [facility]Emergency Department Start: 06-04-2022 Refill Ilya salter MD Work Phone: Internal Medicine [place] Comment on above: Refill Request Start: 06-02-2022 Refill Milton Giraldo MD Work Phone: [facility] Comment on above: Refill Request (Pre- op drops left eye) Start: 05-28-2022 Telephone encounter Adriana kaur APRN.WINDER HELPER Work Phone: Internal Medicine [place] Comment on above: Results Start: 05-27-2022 End: 05-27-2022 Office outpatient visit 25 minutes Adriana Joya APRN.WINDER HELPER Work Phone: Internal Medicine [place] Comment on above: Pre-operative examin ation for internal medicine (Primary Dx); Cataract of both eyes, unspecified cataract type; Coronary artery disease involving [place] coronary artery of [place] heart without angina pectoris; Encounter for screening for diabetes mellitus; Gastroesophageal reflux disease, unspecified whether esophagitis present Start: 05-27-2022 End: 05-27-2022 Patient encounter status Adriana Joya APRN.WINDER HELPER Work Phone: Internal Medicine [place] Start: 05-10-2022 End: 05-10-2022 Emergency department patient visit Dr. Ilya Monroe Work Phone: [facility]Emergency Department Start: 05-06-2022 End: 05-06-[address] Ilya Monroe Work Phone: [facility] Start: 05-05-2022 End: 05-05-2022 Patient encounter procedure Keshawn Hastings MD Work Phone: [facility] Comment on above: Lumbar back pain wit h radiculopathy affecting right lower extremity (Primary Dx); Osteoarthritis of right hip, unspecified osteoarthritis type Start: 03-31-2022 Telephone encounter Ilya gold MD Work Phone: Internal [facility] Comment on above: Appointment Start: 03-02-2022 End: 03-02-2022 Patient encounter procedure Milton Giraldo MD Work Phone: Ophthalmology Comment on above: Combined forms of ag e-related cataract of both eyes (Primary Dx); Asteroid hyalosis of right eye Start: 02-22-2022 End: 02-22-2022 Office outpatient visit 25 minutes Adriana Joya APRN.WINDER HELPER Work Phone: Internal [facility] Comment on above: Screening for HIV (h uman immunodeficiency virus) (Primary Dx); Allergic rhinitis, unspecified seasonality, unspecified trigger; Need for shingles vaccine; Encounter for immunization; DDD (degenerative disc disease), lumbar; Bilateral sciatica; Fibromyalgia; IFG (impaired fasting glucose); Hypokalemia; Essential hypertension; Gastroesophageal reflux disease, unspecified whether esophagitis present Start: 02-15-2022 ambulatory Gordon Carter [facility] Work Phone: [facility] Comment on above: Allied Health Visit (Medication Adherence Outreach) Start: 12-11-2021 End: 12-11-2021 Patient encounter procedure Ronit Hardinghrie BURRING WHEEL OPERATOR Work Phone: OB/Gynecology Comment on above: Encounter for routin e gynecologic examination in Medicare patient (Primary Dx); Encounter for screening mammogram for malignant neoplasm of breast; Encounter for screening for human papillomavirus (HPV); Pap smear for cervical cancer screening; Postmenopausal atrophic vaginitis; Encounter for screening for osteoporosis; Asymptomatic postmenopausal state; Dense breast tissue on mammogram Start: 12-11-2021 End: 12-11-2021 Patient encounter status Ronit Brown RAY.BURRING WHEEL OPERATOR Work Phone: OB/Gynecology Start: 12-11-2021 End: 12-11-2021 Subsequent hospital visit by physician [facility] Comment on above: Encounter for screen ing mammogram for malignant neoplasm of breast [Z12.31] Start: 11-30-2021 End: 11-30-2021 Nursing evaluation of patient and report Mi Nurse Work Phone: Family Medicine [place] Comment on above: Need for vaccination (Primary Dx) Start: 11-27-2021 Refill Adriana ALONSOWINDER HELPER Work Phone: Internal Medicine [place] Comment on above: Refill Request Start: 11-16-2021 ambulatory [facility] RP h Work Phone: [facility] Comment on above: Allied Health Visit (Medication adherence Outreach ) Start: 10-08-2021 Telephone encounter Ilya gold MD Work Phone: Internal Medicine [place] Comment on above: Results Start: 10-08-2021 End: 10-08-2021 Subsequent hospital visit by physician [facility] Work Phone: Radiology Comment on above: Vomiting, unspecifie d vomiting type, unspecified whether nausea present [R11.10] Start: 09-28-2021 End: 09-28-[address] RASHID ESPINOZA MD [facility] Start: 09-01-2021 End: 09-01-2021 Subsequent hospital visit by physician [facility] [place] Work Phone: Radiology Comment on above: Hand pain, right [M7 9.641] Start: 09-01-2021 End: 09-01-2021 Patient encounter procedure Froylan Dorsey APRN.BURRING WHEEL OPERATOR Work Phone: [facility] Comment on above: Hand pain, right (Pr imary Dx) Start: 08-19-2021 Telephone encounter Ilya gold MD Work Phone: [facility] [place] Comment on above: Results Start: 08-17-2021 End: 08-17-2021 Office outpatient visit 25 minutes Ilya Monroe MD Work Phone: [facility] Medicine [place] Comment on above: Essential hypertensi on (Primary Dx); Benign paroxysmal positional vertigo, unspecified laterality; DDD (degenerative disc disease), lumbar; Bilateral sciatica; Fibromyalgia; Vitamin D deficiency; IFG (impaired fasting glucose); Hypokalemia; Encounter for long-term current use of medication Start: 08-15-2021 End: 08-15-[address] Ilya Monroe Work Phone: [facility] Start: 08-06-2021 Telephone encounter Ashley Gunter APRN.BURRING WHEEL OPERATOR Work Phone: [facility] Comment on above: Results Start: 08-05-2021 End: 08-05-2021 Patient encounter procedure Sunni Cook PA-C Work Phone: [facility] Comment on above: Viral URI (Primary D x) Start: 08-04-2021 ambulatory Ilya salter MD Work Phone: Internal Medicine [facility] Start: 07-15-2021 End: 07-15-[address] Ilya Monroe Work Phone: [facility] Start: 06-30-2021 End: 06-30-2021 Nursing evaluation of patient and report Mi Nurse [facility] Comment on above: Need for vaccination (Primary Dx) Start: 06-30-2021 End: 06-30-[address] lIya Monroe Work Phone: [facility] Start: 06-29-2021 End: 06-29-[address] Ilya Monroe Work Phone: [facility] Start: 06-03-2021 Non-patient / Non-visit Dr. Jeannie Monroe Work Phone: [facility] Start: 06-03-2021 Non-patient / Non-visit Dr. Jeannie Monroe Work Phone: [facility] Start: 06-02-2021 Non-patient / Non-visit Dr. Jeannie Monroe Work Phone: [facility] Start: 06-02-2021 End: 06-03-2021 Evaluation and management of inpatient Dr. Ilya Monroe Work Phone: [facility]Progressive Care Unit Start: 06-02-2021 End: 06-02-[address] Ilya Monroe Work Phone: [facility]-Pre-Admissio n Testing Start: 06-02-2021 End: 06-02-[address] Ilya Monroe Work Phone: [facility] Start: 05-26-2021 Non-patient / Non-visit Dr. Jeannie Monroe Work Phone: [facility] Start: 05-26-2021 End: 05-26-[address] Ilya Monroe Work Phone: [facility]Cardiovas[facility] Services Start: 05-22-2021 End: 05-22-[address] [facility] Start: 05-18-[address] Ilya bobo Work Phone: [facility] Start: 05-15-2021 End: 05-15-[address] Ilya Monroe Work Phone: [facility] Start: 04-22-2021 Non-patient / Non-visit Dr. Jeannie Monroe Work Phone: [facility] Start: 04-21-2021 Non-patient / Non-visit Dr. Jeannie Monroe Work Phone: [facility] Start: 04-20-2021 Non-patient / Non-visit Dr. Jeannie Monroe Work Phone: [facility] Start: 04-19-2021 Non-patient / Non-visit Dr. Jeannie Monroe Work Phone: [facility] Start: 04-19-2021 End: 04-22-2021 Evaluation and management of inpatient Dr. Ilya Monroe Work Phone: [facility]Medical Surgical 3 Start: 04-10-2021 End: 04-10-2021 Emergency department patient visit Dr. Ilya Monroe Work Phone: [facility]Emergency Department Start: 03-31-2021 End: 03-31-[address] Ilya Monroe [facility] Start: 06-12-2020 End: 06-12-2020 Orders Only Domitila Adam Work Phone: [facility] Start: 08-26-2019 End: 08-26-2019 Emergency department patient visit ILYA Geronimo [facility] Start: 08-26-2019 End: 08-26-2019 Emergency department patient visit Penny Duque Work Phone: [facility] Emergency Department Comment on above: Bronchopneumonia (Pr imary Dx); Hypokalemia Start: 08-23-2019 End: 08-24-2019 Emergency department patient visit ILYA Grazyna [facility] Start: 08-23-2019 End: 08-24-2019 Emergency department patient visit Tino Rousseau Work Phone: [facility] Emergency Department Comment on above: Protracted URI (Prim regi Dx) Start: 08-20-2019 End: 08-21-2019 Emergency department patient visit [facility] Start: 08-20-2019 End: 08-20-2019 Emergency department patient visit [facility] Work Phone: [facility] Emergency Department Comment on above: Mild asthma with acu te exacerbation, unspecified whether persistent (Primary Dx) Procedures Date Procedure Procedure Detail Performing Clinician Start: 10-15-2024 Iadna streptococcus group a amplified probe tq [facility] Provider Start: 10-09-2024 Urnls dip stick/tablet reagent auto microscopy Dr. Ilya Monroe MD Work Phone: Start: 10-09-[address] Ilya Monroe MD Work Phone: Start: 10-09-2024 Lymphocyte percent differential count Dr. Ilya Monroe MD Work Phone: Start: 10-09-[address] Ilya isbell MD Work Phone: Start: 10-09-2024 Computed tomography of abdomen and pelvis with intravenous contrast Dr. Ilya Monroe MD Work Phone: Start: 10-08-2024 BACTERIAL VAGINOSIS NAAT Mustapha Silverio HR RECRUITER.CNM Work Phone: Start: 10-08-2024 Iadna trichomonas vaginalis amplified probe tech Mustapha Silverio HR RECRUITER.CNM Work Phone: Start: 10-08-2024 Urnls dip stick/tablet rgnt auto w/o microscopy Mustapha Silverio HR RECRUITER.CNM Work Phone: Start: 09-11-2024 Urnls dip stick/tablet rgnt auto w/o microscopy Albert Holland PA-C Work Phone: Start: 09-09-2024 CT angiography of head and neck Dr. Ilya Monroe MD Work Phone: Start: 09-09-2024 CT of head without contrast Dr. Ilya Monroe MD Work Phone: Start: 08-20-2024 Bone &/joint imaging whole body Heriberto Disla MD Work Phone: Start: 08-17-2024 Urnls dip stick/tablet rgnt auto w/o microscopy Preet Boojoaquim HR RECRUITER.BURRING WHEEL OPERATOR Work Phone: Start: 08-15-2024 Us breast uni real time with image limited [facility] HR RECRUITER.WINDER HELPER Work Phone: Start: 08-15-2024 Digital breast tomosynthesis unilateral [facility] HR RECRUITER.WINDER HELPER Work Phone: Start: 07-05-2024 COVID & INFLUENZA A/B & RSV PCR, ROUTINE [facility] HR RECRUITER.WINDER HELPER Work Phone: Start: 07-05-2024 STREP A MOLECULAR (POC) [facility] APR N.WINDER HELPER Work Phone: Start: 06-22-2024 Plethysmography lung volumes w/wo airway resist [facility] HR RECRUITER.WINDER HELPER Work Phone: Start: 06-18-2024 X-ray of esophagus with double contrast Dr. Ilya Monroe MD Work Phone: Start: 06-14-2024 Brncdilat rspse spmtry pre&post-brncdilat admn Adriana Marty HR RECRUITER.WINDER HELPER Work Phone: Start: 05-23-2024 PFIZER-BIONTNebo COVID-19 VACCINE AGE 12+ YR (COMIRNATY) Jean Carlos Avila MD Work Phone: Start: 05-23-2024 Urnls dip stick/tablet rgnt auto w/o microscopy Jean Carlos Avila MD Work Phone: Start: 05-19-2024 Urnls dip stick/tablet rgnt auto w/o microscopy Jenniffer Garcia APRN.BURRING WHEEL OPERATOR Work Phone: Start: 03-23-2024 X-ray of chest, PA and lateral views Dr. Ilya Monroe MD Work Phone: Start: 03-23-2024 SARS-CoV-2, Influenza & RSV (PCR) Dr. Ilya Monroe MD Work Phone: Start: 01-18-2024 Radiologic exam chest 2 views Iván Stone APRN.BURRING WHEEL OPERATOR Work Phone: Start: 12-28-2023 Us breast uni real time with image limited Heriberto Disla MD Work Phone: Start: 12-15-2023 Bone &/joint imaging whole body Heriberto Disla MD Work Phone: Start: 06-23-2023 Bone &/joint imaging whole body Heriberto Disla MD Work Phone: Start: 06-23-2023 Lipid 1996 panel - Serum or Plasma [facility] Work Phone: Start: 03-25-2023 Us breast uni real time with image limited Gregg Bae MD Work Phone: Start: 03-17-2023 Mri breast without&with contrast w/cad bilateral Gregg Bae MD Work Phone: Start: 02-22-2023 Diagnostic mammography computer-aided detcj uni Concetta Fang MD Work Phone: Start: 02-22-2023 Biopsy muscle percutaneous needle Concetta Fang MD Work Phone: Start: 01-31-2023 COVID & INFLUENZA A/B NAAT, ROUTINE Raven Crane PA-C Work Phone: Start: 01-15-2023 CT angiography of head and neck Dr. Ilya Monroe Work Phone: Start: 01-15-2023 Plain chest X-ray Dr. Ilya Monroe Work Phone: Start: 01-15-2023 CT of head without contrast Dr. Ilya Monroe Work Phone: Start: 12-22-[address] Ilya Monroe Work Phone: Start: 12-14-2022 Plain x-ray of pelvis and lower extremity Dr. Ilya Monroe Work Phone: Start: 12-14-[address] Ilya Monroe Work Phone: Start: 12-14-2022 Radiologic examination of knee Dr. Ilya Monroe Work Phone: Start: 11-29-2022 Radex foot complete minimum 3 views Keshawn Hastings MD Work Phone: Start: 11-18-2022 Smr prim src gram/giemsa stain bct fungi/cell Ronit Brown APRN.BURRING WHEEL OPERATOR Work Phone: Start: 09-30-2022 Radiologic exam knee complete 4/more views Keshawn Hastings MD Work Phone: Start: 08-18-2022 Computerized ophthalmic imaging retina Milton Giraldo MD Work Phone: Start: 07-28-2022 End: 05-23-2024 H/O: tubal ligation History of tubal ligation Milton Giraldo MD Work Phone: Start: 07-28-2022 End: 05-23-2024 History of appendectomy History of appendectomy Milton Giraldo MD Work Phone: Start: 05-27-2022 Ecg routine ecg w/least 12 lds i&r only [facility] Provider Start: 05-27-2022 Lipid 1996 panel - Serum or Plasma Ronit Brown APRN.BURRING WHEEL OPERATOR Work Phone: Start: 05-10-2022 Computed tomography of abdomen and pelvis with intravenous contrast Dr. Ilya Monroe Work Phone: Start: 03-02-2022 IOL BIOMETRY W/ IOL CALC OU (BOTH EYES) Milton Giraldo MD Work Phone: Start: 03-02-2022 End: 03-02-2022 Computerized ophthalmic imaging retina Milton Giraldo MD Work Phone: Start: 02-22-2022 PFIZER-BIONTECH COVID-19 BIVALENT BOOSTER VACCINE, AGE 12+ YR Adriana Joya HR RECRUITER.WINDER HELPER Work Phone: Start: 12-11-2021 TERESE SCREENING W RAFY Burgess HR RECRUITER.CNM Work Phone: Start: 12-11-2021 Mammography Screen Wstr Start: 11-30-2021 PFIZER-BIONTECH COVID-19 VACCINE, AGE 12+ YR (MCGUIRE TOP) Ilya Monroe MD Work Phone: Start: 10-08-2021 Us abdominal real time w/image limited Ilya Monroe MD Work Phone: Start: 09-01-2021 Radex hand minimum 3 views Froylan Dorsey HR RECRUITER.BURRING WHEEL OPERATOR Work Phone: Start: 06-30-2021 PFIZER-BIONTECH COVID-19 VACCINE, AGE 12+ YR (MCGUIRE TOP) Ilya Monroe MD Work Phone: Start: 06-02-2021 Plain chest X-ray Dr. Ilya Monroe Work Phone: Start: 06-02-2021 Plain chest X-ray Dr. Ilya Monroe Work Phone: Start: 05-26-2021 Nuclear Stress Test - Chemical Dr. Ilya Monroe Work Phone: Start: 04-19-2021 Plain chest X-ray Dr. Ilya Monroe Work Phone: Start: 04-19-2021 CT angiography of chest with contrast Dr. Ilya Monroe Work Phone: Start: 04-10-2021 SARS-CoV-2 Antigen (Rapid) Dr. Ilya rowland Work Phone: Start: 04-10-2021 Plain chest X-ray Dr. 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 Ilya Monroe Work Phone: Plan of Treatment Date Care Activity Detail Author Start: 06-22-2028 Lipid panel Lipid Screening [facility] Start: 10-25-2027 Diabetes Screening Diabetes Screening [facility] Start: 09-08-2027 Diabetes Screening Diabetes Screening [facility] Start: 08-02-2027 Diabetes Screening Diabetes Screening [facility] Start: 05-27-2027 Lipid 1996 panel - Serum or Plasma Lipid Screening [facility] Start: 05-27-2027 Lipid panel Lipid Screening [facility] Start: 05-27-2027 LIPID SCREEN LIPID SCREEN [facility] Start: 05-24-2027 Tetanus vaccination Tetanus: Every 10yrs [facility] Start: 05-24-2027 Urine microalbumin profile [facility] Start: 05-09-2027 Diabetes Screening Diabetes Screening [facility] Start: 02-14-2027 Diabetes Screening Diabetes Screening [facility] Start: 12-22-2026 Diabetes Screening Diabetes Screening [facility] Start: 12-05-2026 Diabetes Screening Diabetes Screening [facility] Start: 11-22-2026 Diabetes Screening Diabetes Screening [facility] Start: 10-25-2026 Diabetes Screening Diabetes Screening [facility] Start: 09-12-2026 Diabetes Screening Diabetes Screening [facility] Start: 06-22-2026 Diabetes Screening Diabetes Screening [facility] Start: 11-11-2025 End: 11-11-2025 Patient encounter procedure 11/11/2025 1:30 PM EDT Office Visit [facility] Ophthalmology [address] [place] [address] Madina Scott, OD [address] [place] [address] Diagnostics, [facility] [address] [address] Complete eye exam Ophthalmology Comment on above: Complete eye exam Start: 09-27-2025 Annual PCP Team Chronic Disease Visit Annual PCP Team Chronic Disease Visit [facility] Start: 09-09-2025 BP Controlled (<130/80) BP Controlled (<130/80) [facility] Start: 09-07-2025 BP Controlled (<130/80) BP Controlled (<130/80) [facility] Start: 08-23-2025 DIABETES SCREEN DIABETES SCREEN [facility] Start: 08-23-2025 Diabetes Screening Diabetes Screening [facility] Start: 08-17-2025 BP Controlled (<130/80) BP Controlled (<130/80) [facility] Start: 08-03-2025 BP Controlled (<130/80) BP Controlled (<130/80) [facility] Start: 08-03-2025 Screening for malignant neoplasm of cervix Cervical Cancer Screening [facility] Start: 08-01-2025 BP Controlled (<130/80) BP Controlled (<130/80) [facility] Start: 07-05-2025 BP Controlled (<130/80) BP Controlled (<130/80) [facility] Start: 06-17-2025 End: 06-17-2025 Patient encounter procedure 06/17/2025 1:00 PM EDT Office Visit [facility] [place] [address] [place] [address] Adriana Joya APRN.WINDER HELPER [address] [place] [address] Medicare Wellness [facility] [place] Comment on above: Medicare Wellness Start: 06-15-2025 Screening for malignant neoplasm of breast Mammogram Screening [facility] Start: 06-12-2025 Anxiety Screening Anxiety Screening [facility] Start: 06-12-2025 BP Controlled (<130/80) BP Controlled (<130/80) [facility] Start: 06-04-2025 Annual PCP Team Chronic Disease Visit Annual PCP Team Chronic Disease Visit [facility] Start: 05-27-2025 DIABETES SCREEN DIABETES SCREEN [facility] Start: 05-23-2025 Annual PCP Team Chronic Disease Visit Annual PCP Team Chronic Disease Visit [facility] Start: 04-11-2025 Screening for malignant neoplasm of colon Colorectal Cancer Screening [facility] Comment on above: Postponed from 2001 (Postponed To Appropriate Date) Start: 03-20-2025 BP Controlled (<130/80) BP Controlled (<130/80) [facility] Start: 02-25-2025 End: 02-25-2025 Patient encounter procedure Nuclear Medicine Comment on above: Malignant neoplasm of breast in female, estrogen receptor positive, unspecified laterality, unspecified site of breast (HCC) [C50.919, Z17.0] Start: 01-17-2025 BP Controlled (<130/80) BP Controlled (<130/80) [facility] Start: 01-16-2025 End: 01-16-2025 ambulatory [facility] Comment on above: (SO)CBC/CMP(S)* 3 MO OV/LAB&CHEMO TO DAY* 2ND Start: 12-17-2024 End: 12-17-2024 Patient encounter procedure 12/17/2024 1:40 PM EDT Office Visit [facility] [place] [address] [place], [place] [id number] Ilya Monroe MD [address] [place], [place] [address] 6 month follow up [facility] [place] Comment on above: 6 month follow up Start: 12-03-2024 LIPID SCREEN LIPID SCREEN [facility] Start: 11-29-2024 Shingrix Vaccine (2 of 2) Shingrix Vaccine (2 of 2) [facility] Start: 11-27-2024 Annual PCP Team Chronic Disease Visit Annual PCP Team Chronic Disease Visit [facility] Start: 11-22-2024 BP Controlled (<130/80) BP Controlled (<130/80) [facility] Start: 11-20-2024 Covid-19 Vaccine (6 - Pfizer risk season) Covid-19 Vaccine (6 - Pfizer risk ) [facility] Start: 11-08-2024 End: 11-08-2024 Patient encounter procedure 11/08/2024 1:45 PM EDT Office Visit [facility] [address] [place] [place] [address] Madina Scott, OD [address] [facility] [place] [address] complete eye exam Ophthalmology Comment on above: complete eye exam Start: 10-25-2024 BP Controlled (<130/80) BP Controlled (<130/80) [facility] Start: 10-24-2024 End: 10-24-2024 ambulatory [facility] Comment on above: (SO)CBC/CMP(S)* 3 MO OV/LAB&CHEMO TO DAY* 2ND Start: 10-09-2024 [facility] Start: 09-27-2024 End: 09-27-2024 Patient encounter procedure 09/27/2024 10:20 AM EDT Office Visit [facility] [place] [address] [place] [address] Adriana Joya APRN.WINDER HELPER [address] [place] [address] Rescheduled from 09/24 [facility] [place] Comment on above: Rescheduled from 09/24 Start: 09-25-2024 End: 12-25-2024 Urinalysis complete panel - Urine URINALYSIS, WITH MICROSCOPIC Lab Routine Hematuria, unspecified type Expected: 09/25/2024, Expires: 12/25/2024 [facility] Work Phone: Comment on above: Expected: 09/25/2024, Expires: Start: 09-24-2024 End: 09-24-2024 Patient encounter procedure 09/24/2024 2:20 PM EDT Office Visit [facility] [place] [address] [place] [address] Marleni Dyer, HR RECRUITER.BURRING WHEEL OPERATOR [address] [facility] [place] [address] Wants to discuss atorvastatin and side effects. See triage. [facility] [place] Comment on above: Wants to discuss atorvastatin and side e ffects. See triage. Start: 09-18-2024 End: 12-18-2024 Urinalysis complete panel - Urine URINALYSIS, WITH MICROSCOPIC Lab Routine Hematuria, unspecified type Expected: 09/18/2024 (Approximate), Expires: 12/18/2024 [facility] Comment on above: Expected: 09/18/2024 (Approximate), Expi res: 12/18/2024 Start: 09-11-2024 End: 09-11-2024 Patient encounter procedure Urology Comment on above: Hematuria, unspecified type [R31.9] CONSULT: Hematuria, unspecified type. Referred by Preet Mares CNP. [facility] Start: 09-09-2024 [facility] Start: 09-09-2024 Chemotherapy care management [facility] Start: 09-07-2024 End: 09-07-2024 ambulatory 09/07/2024 12:10 PM EDT Visit (SP) Office Hematology/Oncology [address] [place] [address] Heriberto Disla MD [address] [place] [address] OV/ Hematology/Oncology Comment on above: OV/ Start: 08-20-2024 End: 08-20-2024 Patient encounter procedure Nuclear Medicine Comment on above: Dx: Malignant neoplasm of breast in fema le, estrogen receptor positive, unspecified laterality, unspecified site of breast (HCC) [C50.919, Z17.0] Start: 08-18-2024 DIABETES SCREEN DIABETES SCREEN [facility] Start: 08-17-2024 End: 08-17-2024 Patient encounter procedure 08/17/2024 11:45 AM EDT Office Visit OB/Gynecology [address] [place] [address] Preet Mares APRN.BURRING WHEEL OPERATOR [address] [place] [address] dysuria OB/Gynecology Comment on above: dysuria Start: 08-15-2024 End: 08-15-2024 Patient encounter procedure Mammogram Comment on above: Breast asymmetry [N64.89] Comp- Breast asymmet ry [N64.89], Rt CB Breast asymmetry [N6 4.89], BL per Screen Mammo final read- [place] Start: 08-03-2024 End: 08-03-2024 Patient encounter procedure 08/03/2024 10:00 AM EDT Office Visit OB/Gynecology [address] [place] [address] Reina Burgess APRN.CNM [address] [place] [address] New Patient OB/Gynecology Comment on above: New Patient Start: 08-01-2024 End: 08-01-2024 ambulatory [facility] Comment on above: QMO CBC/CMP/BMP OV/LAB&CHEMO TODAY* 2ND (SO)CBC/CMP(S)* 3 MO OV/LAB&CHEMO TO DAY* Start: 07-13-2024 End: 10-12-2024 Lipid 1996 panel - Serum or Plasma LIPID PANEL BASIC Lab Routine Atherosclerosis of [place] coronary artery of [place] heart without angina pectoris Expected: 07/13/2024 (Approximate), Expires: 10/12/2024 [facility] Comment on above: Expected: 07/13/2024 (Approximate), Expi res: 10/12/2024 Start: 06-22-2024 Hepatitis B surface antibody level LDL Cholesterol [facility] Start: 06-21-2024 End: 06-21-2024 ambulatory 06/21/2024 12:30 PM EDT Procedure PULM LAB [facility] [address] [place] [address] Wstr, Pulm Lab [facility] [address] [place] [address] Asthma, unspecified asthma severity, unspecified whether complicated, unspecified whether persistent [J45.909] PULM LAB [facility] Comment on above: Asthma, unspecified asthma severity, uns pecified whether complicated, unspecified whether persistent [J45.909] Start: 06-15-2024 End: 06-15-2024 Patient encounter procedure 06/15/2024 1:10 PM EST Appointment Mammogram [address] [place] [address] Encounter for screening mammogram for breast cancer [Z12.31] Mammogram Comment on above: Encounter for screening mammogram for br east cancer [Z12.31] Start: 06-14-2024 End: 06-14-2024 ambulatory 06/14/2024 11:15 AM EST Procedure PULM LAB [facility] [address] [facility] [place] [address] Wstr, Pulm Lab [facility] [address] [place] [address] Asthma [J45.909] PULM LAB [facility] WSTR Comment on above: Asthma [J45.909] Start: 06-12-2024 End: 06-12-2024 Patient encounter procedure Internal Medicine [place] Comment on above: Annual exam Annual Wellness Start: 06-09-2024 End: 09-08-2024 Lipid 1996 panel - Serum or Plasma LIPID PANEL BASIC Lab Routine Mixed hyperlipidemia Expected: 06/09/2024 (Approximate), Expires: 09/08/2024 [facility] Work Phone: Comment on above: Expected: 06/09/2024 (Approximate), Expi res: 09/08/2024 Start: 05-27-2024 BP Controlled (<130/80) BP Controlled (<130/80) [facility] inic Start: 05-09-2024 End: 05-09-2024 ambulatory [place] [facility] Laboratory Comment on above: QMO CBC/CMP/BMP OVLAB&CHEMO TODAY* 2ND OV/LAB&CHEMO TODAY* natalie Start: 04-11-2024 Advance Directive Discussion Advance Directive Discussion [facility] Start: 03-23-2024 [facility] Start: 02-15-2024 End: 02-15-2024 ambulatory [facility] Laboratory Comment on above: QMO CBC/CMP 2ND Start: 01-30-2024 DIABETES SCREEN DIABETES SCREEN [facility] Start: 01-18-2024 End: 01-18-2024 ambulatory [facility] Laboratory Comment on above: BMP 2ND QMO CBC/CMP Start: 01-03-2024 End: 01-03-2024 ambulatory 01/03/2024 11:30 AM EDT Results Only [facility] Laboratory [address] [place] [address] QMO (SO) CBC/CMP* [facility] Laboratory Comment on above: QMO (SO) CBC/CMP* Start: 12-31-2023 Mammography Mammogram Screening [facility] Start: 12-31-2023 Screening for malignant neoplasm of breast Mammogram Screening [facility] Start: 12-27-2023 End: 12-27-2023 Patient encounter procedure 12/27/2023 1:00 PM EDT Appointment Radiology [address] [place] [address] Invasive ductal carcinoma of breast, 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] Radiology Comment on above: Invasive ductal carcinoma of breast, lef t (HCC) [C50.912] Start: 12-23-2023 End: 12-23-2023 ambulatory [facility] Laboratory Comment on above: BMP OV PER 10/26 TE* 2ND Start: 12-21-2023 End: 12-21-2023 ambulatory Hematology/Oncology Comment on above: ?BMP(S)/QMO ZOMETA/AUTH EXP 04/10/24* BMP 2ND Start: 12-20-2023 End: 12-20-2023 ambulatory 12/20/2023 1:30 PM EDT Results Only [facility] Laboratory [address] [place] [address] QMO CBC/CMP [facility] Laboratory Comment on above: QMO CBC/CMP Start: 12-15-2023 End: 12-15-2023 Patient encounter procedure Nuclear Medicine Comment on above: Malignant neoplasm of breast in female, estrogen receptor positive, unspecified laterality, unspecified site of breast (HCC) [C50.919, Z17.0] Start: 12-11-2023 Covid-19 Vaccine () Covid-19 Vaccine () [facility] Start: 12-11-2023 Covid-19 Vaccine () Covid-19 Vaccine () [facility] Start: 12-11-2023 Influenza vaccination [facility] Start: 12-06-2023 End: 03-06-2024 Hemoglobin A1c in Blood HEMOGLOBIN A1C Lab Routine Elevated glucose Expected: 12/06/2023 (Approximate), Expires: 03/06/2024 [facility] Comment on above: Expected: 12/06/2023 (Approximate), Expi res: 03/06/2024 Start: 12-06-2023 End: 12-06-2023 ambulatory 12/06/2023 11:30 AM EDT Results Only [place] [facility] [address] [place] [address] QMO (SO) CBC/CMP* [facility] Laboratory Comment on above: QMO (SO) CBC/CMP* Start: 11-28-2023 End: 11-28-2023 Patient encounter procedure 11/28/2023 10:40 AM EDT Office Visit Internal Medicine [place] [address] [place] [address] Ilya Monroe MD [address] [place] [address] 6 month f/u Internal Medicine [place] Comment on above: 6 month f/u Start: 11-23-2023 End: 11-23-2023 ambulatory Hematology/Oncology Comment on above: ?BMP(S)/QMO ZOMETA/AUTH EXP 04/10/24* BMP 2ND Start: 11-19-2023 End: 12-18-2023 TERESE SCREENING W RAFY TERESE SCREENING W RAFY Radiology Routine Encounter for screening mammogram for breast cancer Dense breast tissue Expected: 11/19/2023 (Approximate), Expires: 12/18/2023 [facility] Work Phone: Comment on above: Expected: 11/19/2023 (Approximate), Expi res: 12/18/2023 Start: 11-08-2023 End: 11-08-2023 ambulatory 11/08/2023 11:30 AM EDT Results Only [place] [facility] [address] [place] [address] QMO (SO) CBC/CMP* [place] [facility] Laboratory Comment on above: QMO (SO) CBC/CMP* Start: 11-07-2023 End: 11-07-2023 Patient encounter procedure 11/07/2023 1:00 PM EDT Office Visit [facility] Ophthalmology [address] [place] [address] Madina Scott, OD [address] [place] [address] 8 month f/u Ophthalmology Comment on above: 8 month f/u Start: 10-26-2023 End: 10-26-2023 ambulatory Hematology/Oncology Comment on above: 6 WK OV/ZOMETA TODAY* ?BMP(S)/START QMO ZO META/AUTH EXP 04/10/24* Start: 10-11-2023 End: 10-11-2023 ambulatory 10/11/2023 11:30 AM EDT Results Only [place] [facility] Laboratory [address] [place] [address] QMO (SO) CBC/CMP* [place] [facility] Laboratory Comment on above: QMO (SO) CBC/CMP* Start: 09-13-2023 End: 09-13-2023 ambulatory 09/13/2023 12:20 PM EDT Visit (SP) Office Hematology/Oncology [address] [place] [address] [place] [address] [place] [address] 10 WK OV* Hematology/Oncology Comment on above: 10 WK OV* Start: 08-24-2023 ANNUAL PCP TEAM CHRONIC DISEASE VISIT ANNUAL PCP TEAM CHRONIC DISEASE VISIT [facility] Start: 06-08-2023 End: 09-07-2023 CREATININE BLD CREATININE BLD Lab Routine Malignant neoplasm of breast in female, estrogen receptor positive, unspecified laterality, unspecified site of breast (HCC) Expected: 06/08/2023, Expires: 09/07/2023 [facility] Work Phone: Comment on above: Expected: 06/08/2023, Expires: 4 Start: 05-27-2023 BP CONTROLLED (<130/80) BP CONTROLLED (<130/80) [facility] Start: 05-27-2023 End: 08-26-2023 CBC W Auto Differential panel - Blood CBC + DIFF Lab Routine Essential hypertension Expected: 05/27/2023, Expires: 08/26/2023 [facility] Work Phone: Comment on above: Expected: 05/27/2023, Expires: 4 Start: 05-27-2023 End: 08-26-2023 Comprehensive metabolic 2000 panel - Serum or Plasma COMP METABOLIC PANEL Lab Routine Essential hypertension Expected: 05/27/2023, Expires: 08/26/2023 [facility] Work Phone: Comment on above: Expected: 05/27/2023, Expires: 4 Start: 05-27-2023 Hepatitis B surface antibody level LDL CHOLESTEROL [facility] Start: 05-27-2023 End: 08-26-2023 Lipid 1996 panel - Serum or Plasma LIPID PANEL BASIC Lab Routine 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y artery without angina pectoris Expected: 05/27/2023, Expires: 08/26/2023 [facility] Work Phone: Comment on above: Expected: 05/27/2023, Expires: 4 Start: 05-18-2023 Colonoscopy COLONOSCOPY [facility] Start: 05-18-2023 COLORECTAL CANCER SCREENING COLORECTAL CANCER SCREENING [facility] Start: 05-18-2023 Screening for malignant neoplasm of colon [facility] Start: 04-11-2023 Advance Directive Discussion Advance Directive Discussion [facility] Start: 03-09-2023 End: 06-08-2023 25-hydroxyvitamin D3 [Mass/volume] in Serum or Plasma VITAMIN D 25 HYDROXY Lab Routine Vitamin D deficiency Expected: 03/09/2023, Expires: 06/08/2023 [facility] Work Phone: Comment on above: Expected: 03/09/2023, Expires: 4 Start: 02-22-2023 BP CONTROLLED (<130/80) BP CONTROLLED (<130/80) [facility] Start: 01-15-2023 [facility] Start: 12-11-2022 Mammography MAMMOGRAM [facility] Start: 12-11-2022 Screening for malignant neoplasm of cervix Cervical Cancer Screening [facility] Start: 12-10-2022 Covid-19 Vaccine ( season) Covid-19 Vaccine ( season) [facility] Start: 12-10-2022 Influenza vaccination [facility] Start: 10-08-2022 Influenza vaccination INFLUENZA (#1) [facility] Comment on above: Postponed from 12/10/2021 (Declined at t his time) Start: 08-23-2022 End: 10-23-2022 Hemoglobin A1c in Blood [facility] Work Phone: Comment on above: Expected: 08/23/2022, Expires: 3 Start: 08-23-2022 End: 10-23-2022 HIV 1+2 Ab [Presence] in Serum or Plasma by Immunoassay [facility] Work Phone: Comment on above: Expected: 08/23/2022, Expires: 3 Start: 08-18-2022 End: 10-18-2022 Nuclear Ab [Presence] in Serum by Immunoassay THIERRY PANEL BLOOD SCRN Lab Routine Uveitis, anterior Expected: 08/18/2022, Expires: 10/18/2022 [facility] Work Phone: Comment on above: Expected: 08/18/2022, Expires: Start: 08-17-2022 ANNUAL PCP TEAM CHRONIC DISEASE VISIT ANNUAL PCP TEAM CHRONIC DISEASE VISIT [facility] Start: 08-17-2022 BP CONTROLLED (<130/80) BP CONTROLLED (<130/80) [facility] Start: 08-05-2022 BP CONTROLLED (<130/80) BP CONTROLLED (<130/80) [facility] Start: 07-30-2022 End: 02-11-2023 CBC W Auto Differential panel - Blood CBC + DIFF Lab Routine Essential hypertension Gastroesophageal reflux disease, unspecified whether esophagitis present Expected: 07/30/2022 (Approximate), Expires: 02/11/2023 [facility] Work Phone: Comment on above: Expected: 07/30/2022 (Approximate), Expi res: 02/11/2023 Start: 07-30-2022 End: 02-11-2023 Comprehensive metabolic 2000 panel - Serum or Plasma COMP METABOLIC PANEL Lab Routine IFG (impaired fasting glucose) Hypokalemia Essential hypertension Expected: 07/30/2022 (Approximate), Expires: 02/11/2023 [facility] Work Phone: Comment on above: Expected: 07/30/2022 (Approximate), Expi res: 02/11/2023 Start: 07-30-2022 End: 02-11-2023 Magnesium [Mass/volume] in Serum or Plasma MAGNESIUM BLD Lab Routine Gastroesophageal reflux disease, unspecified whether esophagitis present Expected: 07/30/2022 (Approximate), Expires: 02/11/2023 [facility] Work Phone: Comment on above: Expected: 07/30/2022 (Approximate), Expi res: 02/11/2023 Start: 06-22-2022 COVID-19 VACCINE (5 - Pfizer series) COVID-19 VACCINE (5 - Pfizer series) [facility] Start: 06-10-2022 [facility] Start: 05-27-2022 End: 07-27-2022 Hemoglobin A1c in Blood [facility] Work Phone: Comment on above: Expected: 05/27/2022, Expires: Start: 05-08-2022 ANNUAL PCP TEAM CHRONIC DISEASE VISIT ANNUAL PCP TEAM CHRONIC DISEASE VISIT [facility] Start: 05-08-2022 BP CONTROLLED (<130/80) BP CONTROLLED (<130/80) [facility] Start: 04-12-2022 ADVANCE DIRECTIVE DISCUSSION ADVANCE DIRECTIVE DISCUSSION [facility] Comment on above: Postponed from 2021 (Postponed To Appropriate Date) Start: 04-11-2022 ADVANCE DIRECTIVE DISCUSSION ADVANCE DIRECTIVE DISCUSSION [facility] Start: 04-01-2022 COVID-19 VACCINE (4 - Booster for Pfizer series) COVID-19 VACCINE (4 - Booster for Pfizer series) [facility] Start: 01-25-2022 COVID-19 VACCINE (4 - Booster for Pfizer series) COVID-19 VACCINE (4 - Booster for Pfizer series) [facility] Start: 12-10-2021 Influenza vaccination [facility] Start: 12-08-2021 HPV TESTING HPV TESTING [facility] Start: 12-08-2021 PAP TESTING PAP TESTING [facility] Start: 11-30-2021 COVID-19 VACCINE (3 - Booster for Pfizer series) COVID-19 VACCINE (3 - Booster for Pfizer series) [facility] Start: 10-08-2021 Influenza vaccination INFLUENZA (#1) [facility] Comment on above: Postponed from 12/10/2020 (Declined at t his time) Start: 2021 ADVANCE DIRECTIVE DISCUSSION ADVANCE DIRECTIVE DISCUSSION [facility] Start: 2021 BONE DENSITY BONE DENSITY [facility] Start: 2021 Bone Density Screening Bone Density Screening [facility] Start: 2021 PNEUMOCOCCAL: 65+ (1 - PCV) PNEUMOCOCCAL: 65+ (1 - PCV) [facility] Start: 2021 Screening for osteoporosis Bone Density Screening [facility] Start: 08-17-2021 End: 10-17-2021 Basic metabolic 2000 panel - Serum or Plasma BASIC METABOLIC PNL Lab Routine Essential hypertension IFG (impaired fasting glucose) Encounter for long-term current use of medication Hypokalemia Expected: 08/17/2021, Expires: 10/17/2021 [facility] Work Phone: Comment on above: Expected: 08/17/2021, Expires: 2 Start: 08-17-2021 End: 10-17-2021 CBC panel - Blood by Automated count CBC Lab Routine Encounter for long-term current use of medication Expected: 08/17/2021, Expires: 10/17/2021 [facility] Work Phone: Comment on above: Expected: 08/17/2021, Expires: 2 Start: 08-17-2021 End: 10-17-2021 Hemoglobin A1c/Hemoglobin.total in Blood HGB A1C Lab Routine IFG (impaired fasting glucose) Encounter for long-term current use of medication Expected: 08/17/2021, Expires: 10/17/2021 [facility] Work Phone: Comment on above: Expected: 08/17/2021, Expires: 2 Start: 08-17-2021 End: 10-17-2021 Magnesium [Mass/volume] in Serum or Plasma MAGNESIUM BLD Lab Routine Encounter for long-term current use of medication Hypokalemia Expected: 08/17/2021, Expires: 10/17/2021 [facility] Work Phone: Comment on above: Expected: 08/17/2021, Expires: 2 Start: 08-17-2021 End: 10-17-2021 T4 FREE/FREE THYROX T4 FREE/FREE THYROX Lab Routine Essential hypertension Encounter for long-term current use of medication Expected: 08/17/2021, Expires: 10/17/2021 [facility] Work Phone: Comment on above: Expected: 08/17/2021, Expires: 2 Start: 08-17-2021 End: 10-17-2021 Thyrotropin [Units/volume] in Serum or Plasma TSH BLD Lab Routine Essential hypertension Encounter for long-term current use of medication Expected: 08/17/2021, Expires: 10/17/2021 [facility] Work Phone: Comment on above: Expected: 08/17/2021, Expires: 2 Start: 08-17-2021 End: 10-17-2021 VITAMIN D 25 HYDROXY VITAMIN D 25 HYDROXY Lab Routine Vitamin D deficiency Expected: 08/17/2021, Expires: 10/17/2021 [facility] Work Phone: Comment on above: Expected: 08/17/2021, Expires: 2 Start: 08-05-2021 End: 08-19-2021 Influenza virus A and B RNA and SARS-CoV-2 (COVID-19) N gene panel - Respiratory specimen by DOUGLAS with probe detection COVID WITH FLUA+B, ROUTINE Microbiology Routine Viral URI Expected: 08/05/2021, Expires: 08/19/2021 [facility] Work Phone: Comment on above: Expected: 08/05/2021, Expires: 2 Start: 08-04-2021 End: 10-04-2021 CBC panel - Blood by Automated count CBC Lab Routine Medication management Expected: 08/04/2021, Expires: 10/04/2021 [facility] Work Phone: Comment on above: Expected: 08/04/2021, Expires: 2 Start: 08-04-2021 End: 10-04-2021 SCHEDULE LAB TESTING SCHEDULE LAB TESTING Lab Routine Expected: 08/04/2021, Expires: 10/04/2021 [facility] Work Phone: Comment on above: Expected: 08/04/2021, Expires: 2 Start: 06-20-2021 ANNUAL PCP TEAM CHRONIC DISEASE VISIT ANNUAL PCP TEAM CHRONIC DISEASE VISIT [facility] Start: 07-01-2020 Mammography MAMMOGRAM [facility] Start: 07-01-2020 Screening mammography Mammogram [facility] Start: 12-11-2019 Influenza vaccination given [facility] Start: 06-15-2018 FECAL OCCULT BLOOD FECAL OCCULT BLOOD [facility] Start: 06-15-2018 Screening for malignant neoplasm of colon Fecal Occult Blood [facility] Start: 12-27-2016 Administration of herpes zoster vaccine Zoster Vaccines (2 of 3) [facility] Start: 12-27-2016 Shingrix Vaccine (1 of 2) Shingrix Vaccine (1 of 2) [facility] Start: 12-27-2016 SHINGRIX VACCINE (2 of 3) SHINGRIX VACCINE (2 of 3) [facility] Start: 2016 RSV Vaccine (1 - 1-dose 60+ series) RSV Vaccine (1 - 1-dose 60+ series) [facility] Start: 2016 RSV Vaccine (1 - Risk 60-74 years 1-dose series) RSV Vaccine (1 - Risk 60-74 years 1-dose series) [facility] Start: 2006 Screening for malignant neoplasm of colon [facility] Start: 2001 COLOGUARD (FIT-DNA) COLOGUARD (FIT-DNA) [facility] Start: [address] COLONOGRAPHY [facility] Start: 2001 Screening for malignant neoplasm of colon [facility] Start: 2001 SIGMOIDOSCOPY SIGMOIDOSCOPY [facility] Start: 1974 Anxiety Screening Anxiety Screening [facility] Start: 1974 BP CONTROLLED (<130/80) BP CONTROLLED (<130/80) [facility] Start: 1974 Hepatitis C antibody, confirmatory test Hepatitis C Screening [facility] Start: 1974 HIV SCREENING HIV SCREENING [facility] Start: 1974 SPIROMETRY SPIROMETRY [facility] Start: 1972 COVID-19 Vaccine (1 of 2) COVID-19 Vaccine (1 of 2) [facility] Start: 09-06-1971 HIV screening HIV Screening [facility] Start: 1968 Adolescent depression screening assessment Depression Screening (PHQ9) [facility] Start: 09-06-1959 History and physical examination, annual for health maintenance Wellness Visit [facility] Start: 1956 Hepatitis C antibody, confirmatory test Hepatitis C Screening [facility] Start: 1956 Screening for malignant neoplasm of cervix Pap Smear [facility] Start: 1956 Screening for malignant neoplasm of colon Colorectal Cancer Screening: Colonoscopy [facility] Start: 1956 Screening mammography Mammogram [facility] Bacteria identified in Urine by Culture BACTERIAL CULTURE, URINE Microbiology Routine Burning with urination 05/20/2024 3:07 PM EST [facility] Work Phone: Bacteria identified in Urine by Culture BACTERIAL CULTURE, URINE Microbiology Routine Dysuria 05/23/2024 1:08 PM EST [facility] Work Phone: Bacteria identified in Urine by Culture BACTERIAL CULTURE, URINE Microbiology Routine Dysuria Hematuria, unspecified type 08/17/2024 12:02 PM EDT [facility] Work Phone: Bacteria identified in Urine by Culture BACTERIAL CULTURE, URINE Microbiology Routine Vaginal discharge Vagina itching Postmenopausal atrophic vaginitis 10/08/2024 11:42 AM EDT [facility] Work Phone: BACTERIAL VAGINOSIS NAAT BACTERIAL VAGINOSIS NAAT Lab Routine Burning with urination 05/19/2024 3:30 PM [facility] Bx/exc lymph node needle superficial IMAGING GUIDED BIOPSY INGUINAL/AXILLARY LYMPH NODE Radiology Routine Abnormal ultrasound of breast Ordered: 01/17/2023 [facility] Work Phone: Comment on above: Ordered: 01/17/2023 LARRY/TRICHOMONAS NAAT LARRY/TRICHOMONAS NAAT Lab Routine Burning with urination 05/19/2024 3:30 PM EST [facility] Work Phone: End: 07-04-2024 CBC W Auto Differential panel - Blood CBC + DIFF Lab Routine Malignant neoplasm of breast in female, estrogen receptor positive, unspecified laterality, unspecified site of breast (HCC) Once per month for 12 Occurrences starting 07/05/2023 until 07/04/2024 [facility] Work Phone: Comment on above: Once per month for 12 Occurrences starti ng 07/05/2023 until 07/04/2024 CBC W Auto Different ial panel - Blood COMPLETE BLOOD COUNT AND DIFFERENTIAL Lab Routine Invasive ductal carcinoma of breast, left (HCC) 09/07/2024 12:38 PM [facility] Work Phone: End: 07-04-2024 Comprehensive metabolic 2000 panel - Serum or Plasma COMP METABOLIC PANEL Lab Routine Malignant neoplasm of breast in female, estrogen receptor positive, unspecified laterality, unspecified site of breast (HCC) Once per month for 12 Occurrences starting 07/05/2023 until 07/04/2024 [facility] Work Phone: Comment on above: Once per month for 12 Occurrences starti ng 07/05/2023 until 07/04/2024 COVID & INFLUENZA A/ B & RSV NAAT, ROUTINE COVID & INFLUENZA A/B & RSV NAAT, ROUTINE Microbiology Routine Sore throat Acute cough 05/27/2023 2:16 PM [facility] Work Phone: COVID & INFLUENZA A/ B & RSV NAAT, ROUTINE COVID & INFLUENZA A/B & RSV NAAT, ROUTINE Microbiology Routine Sinus congestion Sore throat Postnasal drip Ordered: 11/28/2023 [facility] Comment on above: Ordered: 11/28/2023 COVID & INFLUENZA A/ B & RSV PCR, ROUTINE COVID & INFLUENZA A/B & RSV PCR, ROUTINE Microbiology Routine Sore throat 06/04/2024 7:55 PM [facility] Work Phone: COVID & INFLUENZA A/ B & RSV PCR, ROUTINE COVID & INFLUENZA A/B & RSV PCR, ROUTINE Microbiology Routine Sore throat 10/15/2024 10:54 AM [facility] Work Phone: End: 07-07-2024 CT Abdomen and Pelvis W contrast IV CT ABD/PEL W IVCON Radiology Routine Malignant neoplasm of breast in female, estrogen receptor positive, unspecified laterality, unspecified site of breast (HCC) 1 Occurrences starting 06/08/2023 until 07/07/2024 [facility] Work Phone: Comment on above: 1 Occurrences starting 06/08/2023 until 07/07/2024 CT Abdomen and Pelvi s W contrast IV CT ABD/PEL W IVCON Radiology Routine Malignant neoplasm of breast in female, estrogen receptor positive, unspecified laterality, unspecified site of breast (HCC) 06/23/2023 10:12 AM [facility] Work Phone: End: 08-31-2025 CT Abdomen and Pelvis W contrast IV CT ABD/PEL W IVCON Radiology Routine Malignant neoplasm of breast in female, estrogen receptor positive, unspecified laterality, unspecified site of breast (HCC) 1 Occurrences starting 08/01/2024 until 08/31/2025 [facility] Comment on above: 1 Occurrences starting 08/01/2024 until 08/31/2025 CT Abdomen and Pelvi s W contrast IV CT ABD/PEL W IVCON Radiology Routine Malignant neoplasm of breast in female, estrogen receptor positive, unspecified laterality, unspecified site of breast (HCC) 08/20/2024 2:12 PM EDT [facility] Work Phone: End: 07-07-2024 CT Chest W contrast IV CT CHEST W IVCON Radiology Routine Malignant neoplasm of breast in female, estrogen receptor positive, unspecified laterality, unspecified site of breast (HCC) 1 Occurrences starting 06/08/2023 until 07/07/2024 [facility] Work Phone: Comment on above: 1 Occurrences starting 06/08/2023 until 07/07/2024 CT Chest W contrast IV CT CHEST W IVCON Radiology Routine Malignant neoplasm of breast in female, estrogen receptor positive, unspecified laterality, unspecified site of breast (HCC) 06/23/2023 10:12 AM EDT [facility] Work Phone: End: 08-31-2025 CT Chest W contrast IV CT CHEST W IVCON Radiology Routine Malignant neoplasm of breast in female, estrogen receptor positive, unspecified laterality, unspecified site of breast (HCC) 1 Occurrences starting 08/01/2024 until 08/31/2025 [facility] [facility] Comment on above: 1 Occurrences starting 08/01/2024 until 08/31/2025 CT Chest W contrast IV CT CHEST W IVCON Radiology Routine Malignant neoplasm of breast in female, estrogen receptor positive, unspecified laterality, unspecified site of breast (HCC) 08/20/2024 2:12 PM T [facility] End: 07-12-2025 DBT Breast - bilateral screening TERESE SCREENING W RAFY Radiology Routine Encounter for screening mammogram for breast cancer 1 Occurrences starting 06/12/2024 until 07/12/2025 [facility] Work Phone: Comment on above: 1 Occurrences starting 06/12/2024 until 07/12/2025 DBT Breast - bilater al screening TERESE SCREENING W RAFY Radiology Routine Encounter for screening mammogram for breast cancer 06/15/2024 1:15 PM [facility] Work Phone: End: 07-18-2025 DBT Breast - right diagnostic for implant TERESE DIAG W RAFY RIGHT Radiology Routine Breast asymmetry 1 Occurrences starting 06/18/2024 until 07/18/2025 [facility] Comment on above: 1 Occurrences starting 06/18/2024 until 07/18/2025 End: 01-10-2023 Dxa bone density study 1/> sites axial skel DXA-AXIAL SKELETON Radiology Routine Encounter for screening for osteoporosis Asymptomatic postmenopausal state 1 Occurrences starting 12/11/2021 until 01/10/2023 [facility] Work Phone: Comment on above: 1 Occurrences starting 12/11/2021 until 01/10/2023 End: 06-25-2024 DXA Skeletal system.axial Views for bone density DXA-AXIAL SKELETON Radiology Routine Screening for osteoporosis Asymptomatic menopause 1 Occurrences starting 05/27/2023 until 06/25/2024 [facility] Work Phone: Comment on above: 1 Occurrences starting 05/27/2023 until 06/25/2024 DXA Skeletal system.axial Views for bone density DXA-AXIAL SKELETON Radiology Routine Screening for osteoporosis Asymptomatic menopause 05/31/2023 9:48 AM EST [facility] Work Phone: End: 05-27-2023 ECG COMPLETE ECG COMPLETE ECG Routine Pre-operative examination for internal medicine 1 Occurrences starting 05/27/2022 until 05/27/2023 [facility] Work Phone: Comment on above: 1 Occurrences starting 05/27/2022 until 05/27/2023 ECG COMPLETE ECG COMPLETE ECG 05/27/2022 10:39 AM EST [facility] End: 02-22-2023 FLOW CYTOMETRY FOR LEUKEMIA/LYMPHOMA (FCLL) PERFORMABLE [facility] Work Phone: Comment on above: ONCE for 1 Occurrences starting 02/23/20 until 02/22/2023 End: 12-28-2024 Guidance for injection of Hip IMAGING GUIDED HIP INJECTION RIGHT Radiology Routine Primary osteoarthritis of right hip 1 Occurrences starting 11/28/2023 until 12/28/2024 [facility] Work Phone: Comment on above: 1 Occurrences starting 11/28/2023 until 12/28/2024 IMAGING GUIDED HIP/ILIOPSOAS INJECTION RIGHT IMAGING GUIDED HIP/ILIOPSOAS INJECTION RIGHT Radiology Routine Primary osteoarthritis of right hip Ordered: 12/20/2022 [facility] Work Phone: Comment on above: Ordered: 12/20/2022 INFLUENZA VACCINE, P RSV FREE, AGE 65+ YR, HIGH DOSE, QUADRIVALENT (FLUZONE HIGH-DOSE) INFLUENZA VACCINE, PRSV FREE, AGE 65+ YR, HIGH DOSE, QUADRIVALENT (FLUZONE HIGH-DOSE) Immunization/Injection Routine Encounter for immunization 1 Occurrences starting 05/27/2023 [facility] Work Phone: Comment on above: 1 Occurrences starting 05/27/2023 End: 07-18-2025 LUNG VOLUMES LUNG VOLUMES PFT Routine Asthma, unspecified asthma severity, unspecified whether complicated, unspecified whether persistent 1 Occurrences starting 06/18/2024 until 07/18/2025 [facility] Work Phone: Comment on above: 1 Occurrences starting 06/18/2024 until 07/18/2025 LUNG VOLUMES LUNG VOLUMES PFT Routine Asthma, unspecified asthma severity, unspecified whether complicated, unspecified whether persistent 06/22/2024 9:53 AM EDT [facility] Work Phone: End: 01-10-2023 TERESE SCREENING W RAFY TERESE SCREENING W RAFY Radiology Routine Encounter for screening mammogram for malignant neoplasm of breast Dense breast tissue on mammogram 1 Occurrences starting 12/11/2021 until 01/10/2023 [facility] Work Phone: Comment on above: 1 Occurrences starting 12/11/2021 until 01/10/2023 End: 04-07-2024 MRI 3D POST PROCESSING MRI 3D POST PROCESSING Radiology Routine 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, left (HCC) 1 Occurrences starting 03/09/2023 until 04/07/2024 [facility] Work Phone: Comment on above: 1 Occurrences starting 03/09/2023 until 04/07/2024 End: 04-07-2024 MRI BREAST WO/W IVCON BILATERAL MRI BREAST WO/W IVCON BILATERAL Radiology Routine 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, left (HCC) 1 Occurrences starting 03/09/2023 until 04/07/2024 [facility] Work Phone: Comment on above: 1 Occurrences starting 03/09/2023 until 04/07/2024 End: 07-07-2024 NM Whole body Bone Views NM BONE WHOLE BODY Radiology Routine Malignant neoplasm of breast in female, estrogen receptor positive, unspecified laterality, unspecified site of breast (HCC) 1 Occurrences starting 06/08/2023 until 07/07/2024 [facility] Work Phone: Comment on above: 1 Occurrences starting 06/08/2023 until 07/07/2024 End: 10-12-2024 NM Whole body Bone Views NM BONE WHOLE BODY Radiology Routine Malignant neoplasm of breast in female, estrogen receptor positive, unspecified laterality, unspecified site of breast (HCC) 1 Occurrences starting 09/13/2023 until 10/12/2024 [facility] Work Phone: Comment on above: 1 Occurrences starting 09/13/2023 until 10/12/2024 End: 08-31-2025 NM Whole body Bone Views NM BONE WHOLE BODY Radiology Routine Malignant neoplasm of breast in female, estrogen receptor positive, unspecified laterality, unspecified site of breast (HCC) 1 Occurrences starting 08/01/2024 until 08/31/2025 [facility] Work Phone: Comment on above: 1 Occurrences starting 08/01/2024 until 08/31/2025 End: 11-23-2025 NM Whole body Bone Views NM BONE WHOLE BODY Radiology Routine Malignant neoplasm of breast in female, estrogen receptor positive, unspecified laterality, unspecified site of breast (HCC) 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) 1 Occurrences starting 10/24/2024 until 11/23/2025 [facility] Work Phone: Comment on above: 1 Occurrences starting 10/24/2024 until 11/23/2025 PAP FLUID CERVICAL SCREENING PAP FLUID CERVICAL SCREENING Lab Routine Pap smear for cervical cancer screening 12/11/2021 11:25 AM EDT [facility] Work Phone: Patient Education [facility] Work Phone: Patient referral [facility] Work Phone: PFIZER-BIONTECH COVID-19 VACCINE ( SEASON) AGE 12+ YR PFIZER-BIONTECH COVID-19 VACCINE ( SEASON) AGE 12+ YR Immunization/Injection Routine Encounter for immunization 1 Occurrences starting 05/27/2023 [facility] Work Phone: Comment on above: 1 Occurrences starting 05/27/2023 REFERRAL FOR ADDITIO NAL BIOMARKER AND MOLECULAR TESTING REFERRAL FOR ADDITIONAL BIOMARKER AND MOLECULAR TESTING Lab Routine Malignant neoplasm of breast in female, estrogen receptor positive, unspecified laterality, unspecified site of breast (HCC) 10/26/2023 1:39 PM EDT [facility] End: 08-23-2019 S. pyogenes Org specific cx Ql (Throat) Strep A Culture, Throat Microbiology VIGNESH Once for 1 Occurrences starting 08/23/2019 until 08/23/2019, 1 completed [facility] Comment on above: Once for 1 Occurrences starting 08/23/19 20 until 08/23/2019, 1 completed S. pyogenes Org specific cx Ql (Throat) Strep A Culture, Throat Microbiology Routine 08/23/2019 10:32 PM EDT [facility] End: 09-22-2023 SPIROMETRY - BASELINE AND POST DILATOR SPIROMETRY - BASELINE AND POST DILATOR PFT Routine Asthma 1 Occurrences starting 08/23/2022 until 09/22/2023 [facility] Work Phone: Comment on above: 1 Occurrences starting 08/23/2022 until 09/22/2023 End: 07-12-2025 SPIROMETRY - BASELINE AND POST DILATOR SPIROMETRY - BASELINE AND POST DILATOR PFT Routine Asthma 1 Occurrences starting 06/12/2024 until 07/12/2025 [facility] Comment on above: 1 Occurrences starting 06/12/2024 until 07/12/2025 SPIROMETRY - BASELIN E AND POST DILATOR SPIROMETRY - BASELINE AND POST DILATOR PFT Routine Asthma 06/14/2024 11:12 AM EST [facility] Work Phone: End: 02-22-2023 SURGICAL PATHOLOGY [facility] Work Phone: Comment on above: ONCE for 1 Occurrences starting 02/23/20 23 until 02/22/2023, 1 completed URINALYSIS, REFLEX MICROSCOPIC URINALYSIS, REFLEX MICROSCOPIC Lab Routine Hematuria, unspecified type 09/11/2024 11:37 AM EDT [facility] End: 03-02-2024 US BIOPSY BREAST LEFT US BIOPSY BREAST LEFT Radiology Routine Abnormal ultrasound of breast 1 Occurrences starting 02/01/2023 until 03/02/2024 [facility] Work Phone: Comment on above: 1 Occurrences starting 02/01/2023 until 03/02/2024 End: 01-21-2025 US Breast - left limited US BREAST LTD LEFT Radiology Routine Invasive ductal carcinoma of breast, left (HCC) 1 Occurrences starting 12/23/2023 until 01/21/2025 [facility] Work Phone: Comment on above: 1 Occurrences starting 12/23/2023 until 01/21/2025 End: 07-18-2025 US Breast - left limited US BREAST LTD LEFT Radiology Routine Invasive ductal carcinoma of breast, left (HCC) 1 Occurrences starting 06/18/2024 until 07/18/2025 [facility] Work Phone: Comment on above: 1 Occurrences starting 06/18/2024 until 07/18/2025 End: 01-30-2024 US BREAST LTD LEFT US BREAST LTD LEFT Radiology Routine Abnormal mammogram 1 Occurrences starting 12/31/2022 until 01/30/2024 [facility] Work Phone: Comment on above: 1 Occurrences starting 12/31/2022 until 01/30/2024 End: 04-16-2024 US BREAST LTD LEFT US BREAST LTD LEFT Radiology Routine Abnormal findings on diagnostic imaging of breast 1 Occurrences starting 03/18/2023 until 04/16/2024 [facility] Work Phone: Comment on above: 1 Occurrences starting 03/18/2023 until 04/16/2024 [facility] End: 11-24-2024 XR Thoracic spine AP and Lateral XR THORACIC LIMITED 2V AP/LAT Radiology Routine Malignant neoplasm of breast in female, estrogen receptor positive, unspecified laterality, unspecified site of breast (HCC) 1 Occurrences starting 10/26/2023 until 11/24/2024 [facility] Work Phone: Comment on above: 1 Occurrences starting 10/26/2023 until 11/24/2024 XR Thoracic spine AP and Lateral XR THORACIC LIMITED 2V AP/LAT Radiology Routine Malignant neoplasm of breast in female, estrogen receptor positive, unspecified laterality, unspecified site of breast (HCC) 10/26/2023 3:13 PM EDT [facility] Immunizations Immunization Date Immunization Notes Care Provider Fa codi 05-23-2024 COVID-19 vaccine, ag e 12+ yr (GetBulb-BIONTECH COMIRNAT) Jean Carlos Avila MD Work Phone: [facility] 02-22-2022 COVID-19 booster vaccine, age 12+ yr, bivalent (PFIZER-BIONTECH) Adriana Joya APRN.WINDER HELPER Work Phone: [facility] Work Phone: 02-22-2022 pneumococcal (PCV20) vaccine, 20 valent (PREVNAR 20) Adriana Joya APRN.WINDER HELPER Work Phone: [facility] Work Phone: 02-22-2022 pneumococcal Conjugate, unspecified formulation Adriana Joya APRN.WINDER HELPER Work Phone: [facility] Work Phone: 11-30-2021 COVID-19 vaccine, ag e 12+ yr (PFIZER-BIONTECH - MCGUIRE TOP) Preet Diggs [facility] Work Phone: [facility] Work Phone: 06-30-2021 COVID-19 vaccine, ag e 12+ yr (PFIZER-BIONTECH - MCGUIRE TOP) Nc Nurse Work Phone: [facility] Work Phone: 06-08-2021 COVID-19 vaccine, ag e 12+ yr (PFIZER-BIONTECH - MCGUIRE TOP) Nc Nurse Work Phone: [facility] Work Phone: 05-24-2017 tetanus toxoid, reduced diphtheria toxoid, and acellular pertussis vaccine, adsorbed Mi Nurse Work Phone: [facility] 03-22-2017 influenza virus vaccine, unspecified formulation Ronit Brown APRN.BURRING WHEEL OPERATOR Work Phone: [facility] 11-01-2016 zoster vaccine, live Mi Nurs e Work Phone: [facility] Payers Date Payer Category Payer Medicare (Managed Care) MMO TAVO DVANTAGE [id number] 2024 Self-pay [id number] 2021 Medicare AETNA MEDICARE A ETNA MEDICARE O [id number] 2021-Present [phone] [address] [place] [address] [facility] [id number] 2021 Medicare [id number] 2021 Private Health Insurance [id number] 2019 Medicare MMO MANAGED MEDI CARE MMO MANAGED MEDICARE O [id number] 2019-Present [id number] 2019 Medicare MMO MANAGED MEDI CARE MMO MANAGED MEDICARE O [id number] 2019- [id number] 2015 Medicare [id number] 1955 Unknown [id number] 1955 Unknown [id number] 1955 Unknown [id number] Medicaid [id number] Unknown [id number] Unknown [id number] Unknown [id number] Unknown [id number] Unknown [id number] Unknown [id number] Unknown [id number] Unknown [id number] Unknown [id number] Social History Date Type Detail Facility Start: 08-23-2019 End: 01-18-2024 Tobacco smoking status NHIS Former smoker [facility] Work Phone: Start: 08-23-2019 End: 08-26-2019 Alcohol intake Lifetime non-drinker (finding) [facility] Start: 08-20-2019 History SDOH Alcohol Frequency 1 [facility] Start: 1955 [facility] Start: 05-06-2021 End: 03-02-2022 Exposure to SARS-CoV-2 (event) Not sure [facility] Start: 08-26-2019 End: 01-18-2024 Tobacco use and exposure Never used [facility] End: 04-11-1993 History of tobacco use Current smoker [facility] Work Phone: Start: 05-08-2021 End: 09-27-2024 Alcohol intake Current drinker of alcohol (finding) [facility] Start: 09-22-2009 History SDOH Alcohol Comment rarely [facility] Start: 06-30-2021 End: 04-28-2023 Tobacco smoking status IAIS Unknown if ever smoked [facility] Start: 08-27-2020 Occasional [facility] Start: 08-27-2020 None [facility] Start: 05-04-2020 With Family [facility] Start: 08-27-2020 Non-smoker [facility] Start: 1955 Sex Assigned At Female [facility] End: 04-11-1993 History of tobacco use Cigarette Smoker [facility] Start: 11-18-2022 End: 02-15-2024 History of Social function [facility] Work Phone: Start: 11-18-2022 End: 02-15-2024 Tobacco use panel [facility] Work Phone: Start: 03-12-2012 Adult Depression Screening Assessment 3 [facility] Work Phone: How often to you hav e a drink containing alcohol? Monthly or less [facility] How many standard drinks containing alcohol do you have on a typical day? 1 or 2 [facility] How often do you hav e 6 or more drinks on 1 occasion? Never [facility] Start: 06-28-2024 Sex Female (finding) [facility] Medical Equipment Procedure Code Equipment Code Equipment Origin al Text Equipment Identifier Dates Lens Acrysof Ultrasert +20.5 Diopter Acrylic Iol 1 Piece Foldable Uv Blue - [id number] Start: 06-22-2022 Functional Status Date Assessment Result Facility 06-12-2024 Total score [AUDIT-C] 1 06/13/19 12:54 PM Taylor Quick LPN [facility] 06-03-2021 Functional status Bedrest [facility] Work Phone: 04-22-2021 Functional status Ambulates [facility] Work Phone: 12-05-2018 Are you deaf, or do you have serious difficulty hearing No 12/05/2018 8:35 PM Ilya Collazo MD No [facility] 12-05-2018 Are you blind, or do you have serious difficulty seeing, even when wearing glasses No 12/05/2018 8:35 PM Ilya Collazo MD No [facility] 12-05-2018 Do you have serious difficulty walking or climbing stairs No 12/05/2018 8:35 PM Ilya Collazo MD No [facility] 12-05-2018 Do you have difficul ty dressing or bathing No 12/05/2018 8:35 PM Ilya Collazo MD No [facility] 12-05-2018 Because of a physica l, mental, or emotional condition, do you have difficulty doing errands alone such as visiting a physician's office or shopping No 12/05/2018 8:35 PM Ilya Collazo MD No [facility] Mental Status Date Assessment Result Facility 09-09-2024 Cognitive function Level Of Cons ciousness Awake;Alert;Appropriate;Fol lows Commands [facility] Work Phone: 03-23-2024 Cognitive function Level Of Cons ciousness Awake;Alert;Appropriate;Fol lows Commands [facility] Work Phone: 01-15-2023 Cognitive function Level Of Cons ciousness Awake;Alert;Appropriate [facility] Work Phone: 06-10-2022 Cognitive function Level Of Cons ciousness Awake;Alert;Appropriate;Fol lows Commands [facility] Work Phone: 06-03-2021 Cognitive function Voice/Name [facility] Work Phone: 04-22-2021 Cognitive function Voice/Name [facility] Work Phone: 12-05-2018 Because of a physica l, mental, or emotional condition, do you have serious difficulty concentrating, remembering, or making decisions No 12/05/2018 8:35 PM EDT Ilya Monroe MD No [facility] Clinical Notes 06-30-2021 to 01-19-2025 Madina Scott, AARON - 11/08/2024 3:25 PM EDTRNarcisa plunkett - 10/24/2024 1:24 PM Heriberto Dodson MD - 10/24/2024 12:51 PM EDTTelephone Encounter - Eve Anguiano MA - 10/16/2024 8:27 AM EDT Note Date & Type Note Facility 01-19-2025 Note [facility] 01-16-2025 Note [facility] 01-14-2025 Note [facility] 01-14-2025 Note [facility] 01-14-2025 Note [facility] 12-28-2024 Note [facility] 11-08-2024 Note [facility] 11-08-2024 History of Presen t illness Narrative 1. 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 Pseudophakia Looks good- monitor Finalized spec rx 3. Asteroid hyalosis of right eye Stable Warned patient about signs/symptoms of retinal pathology and to call immediately with any sudden increase in flashes/floaters or curtain/veil over vision 4. Dry eye syndrome of bilateral lacrimal glands Recommended artificial tears 2-3x daily Follow-up in 1 year for complete eye exam I have confirmed and edited as necessary the relevant HPI,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 - Taylor Wiggins LPN - 07/02/2024 8:57 AM EDT Patient notified of providers message and verbalized understanding. Patient is willing to schedule with pulmonary. Encounter routed to PSR to assist patient in scheduling * Telephone Encounter - Taylor Wiggins LPN - 07/02/2024 8:54 AM EDT ----- Message from Adriana Rhodes APRN.CNS sent at 06/29/2024 4:04 PM EDT ----- Plese let her k now. Lung volumes consistent with restriction. I recommend an appointment with pulmonology for further evaluation and treatment as indicated. Consult placed. Please schedule if willing. * Result Encounter Note - Adriana Joya APRN.CNS - 06/29/2024 4:04 PM EDT Plese let her k now. Lung volumes consistent with restriction. I recommend an appointment with pulmonology for further evaluation and treatment as indicated. Consult placed. Please schedule if willing. documented in this encounterMercy Health [facility]03-24-2025 Telephone encounter Note * Telephone Encounter - aTylor Wiggins LPN - 07/02/2024 8:54 AM EDT ----- Message from Adriana Rhodes APRN.CNS sent at 06/29/2024 4:04 PM EDT ----- Plese let her k now. Lung volumes consistent with restriction. I recommend an appointment with pulmonology for further evaluation and treatment as indicated. Consult placed. Please schedule if willing. [facility]03-21-2025 Progress note* Result Encounter Note - Adriana Joya APRN.CNS - 06/29/2024 4:04 PM EDT [place] let her k now. Lung volumes consistent with restriction. I recommend an appointment with pulmonology for further evaluation and treatment as indicated. Consult placed. Please schedule if willing. [facility]03-19-2025 Miscellaneous Notes* Telephone Encounter - Ania Tellez LISW - 06/27/2024 2:08 PM EDT Script completed for a year and successfully faxed to [employer]. Sent to internal scanning. SERGIO Saleem * Telephone Encounter - Eve Kim - 06/27/2024 12:55 PM EDT Patient called asking if rx can be for a year. * Telephone Encounter - Ania Tellez LISW - 06/27/2024 10:46 AM EDT Fax received this date from [employer] needing an updated script for pt's Ibrance. Form completed and will review with physician. Once complete, SW will fax to [employer] and send to internal scanning. SERGIO Saleem documented in this encounter[facility] Telephone encounter Note * Telephone Encounter - Ania Tellez LISW - 06/27/2024 2:08 PM EDT Script completed for a year and successfully faxed to [employer]. Sent to internal scanning. SERGIO Saleem [facility]03-19-2025 Telephone encounter Note* Telephone Encounter - Eve Kim - 06/27/2024 12:55 PM EDT Patient called asking if rx can be for a year. [facility] Work Phone: 1(728) 126-679203-19-2025 Telephone encounter Note* Telephone Encounter - Ania Tellez LISW - 06/27/2024 10:46 AM EDT Fax received this date from [employer] needing an updated script for pt's Ibrance. Form completed and will review with physician. Once complete, SW will fax to [employer] and send to internal scanning. SERGIO Saleem [facility]03-14-2025 NoteHNO ID: [id number] Author: RHEA SHIPMAN RRT Service: ? Author Type: Registered Resp Therapist Type: Progress Notes Filed: 06/22/2024 10:03 Note Text: PULM FUNCTION: Provider: Adriana Joya APRN.WINDER HELPER LV - [facility] History of Present illness Narrative* Rhea Shipman RRT - 06/22/2024 10:03 AM EDT PULM FUNCTION: Provider: Adriana Joya APRN.WINDER HELPER LV - Box: 1 documented in this encounterMer[facility]03-11-2025 Telephone encounter Note * Telephone Encounter - Dominga Osullivan RN - 06/19/2024 1:[address] Disla aware. No additional instructions. Isela Osullivan RN [facility] Work Phone: 1(478) 996-135703-11-2025 Miscellaneous Notes* Telephone Encounter - Dominga Osullivan RN - 06/19/2024 1:[address] Disla aware. No additional instructions. Isela Osullivan RN * Telephone Encounter - Dominga Osullivan RN - 06/19/2024 10:20 AM EDT Mauricio Care Coordination FOLLOW-UP NOTE Patient identified by name and date of . YES Spoke to patient Summary: (Reason for follow-up) Patient calls and states that Dr. Espinoza is planning to do a procedure to stretch my esophagus, toimprove my swallowing She states she has an issue with food getting stuck. This procedure is planned for 07/10/24 and she has a follow up with Dr. Espinoza tomorrow to discuss further. Advised that she needs to go ahead with procedure and that I will update Dr. Disla. Also askedthat if Dr. Espinoza has any finding that Dr. Disla needs to be aware of, to have them fax/call our office. She states understanding and agrees. Care Coordination Plan: No further follow up needed at this time Dominga Osullivan RN June 19, 2024 * Telephone Encounter - Eve Kim - 06/19/2024 9:32 AM EDT Patient called stating Dr. Espinoza wants to do a procedure and she wants Dr. Disla to okay it. She states they are going down her throat to stretch it. documented in this encounterMer[facility]03-11-[facility]25 Telephone encounter Note * Telephone Encounter - Dominga Osullivan RN - 06/19/2024 10:20 AM EDT [facility] Care Coordination FOLLOW-UP NOTE Patient identified by name and date of . YES Spoke to patient Summary: (Reason for follow-up) Patient calls and states that Dr. Espinoza is planning to do a procedure to stretch my esophagus, toimprove my swallowing She states she has an issue with food getting stuck. This procedure is planned for 07/10/24 and she has a follow up with Dr. Espinoza tomorrow to discuss further. Advised that she needs to go ahead with procedure and that I will update Dr. Disla. Also askedthat if Dr. Espinoza has any finding that Dr. Disla needs to be aware of, to have them fax/call our office. She states understanding and agrees. Care Coordination Plan: No further follow up needed at this time Dominga Osullivan RN June 19, 2024 [facility]03-11-2025 Telephone encounter Note* Telephone Encounter - Eve Kim - 06/19/2024 9:32 AM EDT Patient called stating Dr. Espinoza wants to do a procedure and she wants Dr. Disla to okay it. She states they are going down her throat to stretch it. [facility] Work Phone: [phone]) 890-897903-10-2025 Telephone encounter Note* Telephone Encounter - Taylor Wiggins LPN - 06/18/2024 5:20 PM EDT No answer and recording stating no service. Letter mailed [facility]03-10-2025 Miscellaneous Notes* Telephone Encounter - Taylor Wiggins LPN - 06/18/2024 5:20 PM EDT No answer and recording stating no service. Letter mailed * Telephone Encounter - Taylor Wiggins LPN - 06/18/2024 5:13 PM EDT ----- Message from Adriana Rhodes APRN.CNS sent at 06/18/2024 4:43 PM EDT ----- Please let her know that the right breast shows some asymmetry and a follow-up mammogram is recommended to check this. There is known breast cancer on the left. Follow-up ultrasound of the left breast is recommended tocheck for chemotherapy response. * Result Encounter Note - Adriana Joya APRN.CNS - 06/18/2024 4:43 PM EDT Please let her know that the right breast shows some asymmetry and a follow-up mammogram is recommended to check this. There is known breast cancer on the left. Follow-up ultrasound of the left breast is recommended tocheck for chemotherapy response. documented in this encounterMer[facility]03-10-2025 Telephone encounter Note * Telephone Encounter - Taylor Wiggins LPN - 06/18/2024 5:13 PM EDT ----- Message from Adriana Rhodes APRN.CNS sent at 06/18/2024 4:43 PM EDT ----- Please let her know that the right breast shows some asymmetry and a follow-up mammogram is recommended to check this. There is known breast cancer on the left. Follow-up ultrasound of the left breast is recommended tocheck for chemotherapy response. [facility]03-10-[facility]25 Progress note* Result Encounter Note - Adriana Joya APRN.CNS - 06/18/2024 4:43 PM EDT Please let her know that the right breast shows some asymmetry and a follow-up mammogram is recommended to check this. There is known breast cancer on the left. Follow-up ultrasound of the left breast is recommended tocheck for chemotherapy response. [facility]03-10-2025 Telephone encounter Note* Telephone Encounter - Taylor Wiggins LPN - 06/18/2024 2:07 PM EDT Attempted to contact patient but no answer and voicemail states phone is not in service. Letter mailed. [facility]03-10-[facility]25 Miscellaneous Notes* Telephone Encounter - Taylor Wiggins LPN - 06/18/2024 2:07 PM EDT Attempted to contact patient but no answer and voicemail states phone is not in service. Letter mailed. * Telephone Encounter - Taylor Wiggins LPN - 06/18/2024 1:57 PM EDT ----- Message from Adriana Rhodes APRN.CNS sent at 06/18/2024 8:37 AM EDT ----- Please let her know that a follow-up respiratory test is recommended. Spirometry shows no obstruction. There is possible restriction. Lung volumes are recommended. Can schedule these at her convenience. Negative bronchodilator response is noted. * Result Encounter Note - Adriana Joya APRN.CNS - 06/18/2024 8:37 AM EDT Please let her know that a follow-up respiratory test is recommended. Spirometry shows no obstruction. There is possible restriction. Lung volumes are recommended. Can schedule these at her convenience. Negative bronchodilator response is noted. documented in this encounterMer[facility]03-10-2025 Telephone encounter Note * Telephone Encounter - Taylor Wiggins LPN - 06/18/2024 1:57 PM EDT ----- Message from Adriana Rhodes APRN.CNS sent at 06/18/2024 8:37 AM EDT ----- Please let her know that a follow-up respiratory test is recommended. Spirometry shows no obstruction. There is possible restriction. Lung volumes are recommended. Can schedule these at her convenience. Negative bronchodilator response is noted. [facility]03-10-2025 Radiology Diagnostic study note Imaging Services [address] [place] [id number] Esophagus Dual Contrast MR#: [id number] Acct: [id number] Name: DARLING FLOREZ Rep #: [id number] : 1955 F 68 From: Wilfredo Aparicio MD PCP: Dr. Ilya Monroe MD Status: RE G CLI Study:Esophagus Dual Contrast Date of Exam: 06/18/24 Exam# [id number] Ordering Dr: Natasha Espinoza MD PROCEDURE: ESOPHAGUS DUAL CONTRAST REASON FOR EXAM: Worsening gastroesophageal reflux. TECHNIQUE: The patient ingested barium. Multiple fluoroscopic images of the esophagus wereobtained. COMPARISON: None. FINDINGS: The esophagus is unremarkable. No evidence of mass lesion. No evidence of obstruction. No evidence of gastroesophageal reflux. The patient ingested a 12 mm tablet of barium without any difficulty. RAD/Esophagus Dual Contrast IMPRESSION: Unremarkable examination. Reading Location: [place] [address] CC: Dr. Ilya Monroe MD; Dr. Rashid Espinoaz MD ~ Border Measurer: Signed [facility]03-10-2025 Progress note* Result Encounter Note - Adriana Joya APRN.CNS - 06/18/2024 8:37 AM EDT Please let her know that a follow-up respiratory test is recommended. Spirometry shows no obstruction. There is possible restriction. Lung volumes are recommended. Can schedule these at her convenience. Negative bronchodilator response is noted. [facility]03-[facility] History of Present illness Narrative* Tammy Peña Mammo Tech - 06/15/2024 1:10 PM EST Radiology Service Progress Note PATIENT NAME: Darling Florez DATE OF SERVICE: June 15, 2024 TIME: 1:27 PM PATIENT IDENTITY VERIFICATION COMPLETED USING TWO (2) IDENTIFIERS: Name and Date of confirmedby patient verbally. FALL SCREENING: Has the patient had 2 falls in the last year or 1 fall with injury or currently using an Ambulatory Assistive Device (Walker, Cane, Wheelchair, Crutches, etc.)? No PATIENT GENDER DATA: Assigned female at . status: : No status:NO. PATIENT RELEVANT IMPLANT DATA REVIEWED: Not Applicable PATIENT PRESENTS WITH AN IMPLANTABLE OR ATTACHED IDENTIFICATION TECHNICIAN: No RADIOLOGY DEPARTMENT: Mammography PERIPHERAL IV DATA: Not applicable SIGNED BY: Edu Serrano June 15, 2024 1:27 PM documented in this encounterMer[facility]03-07-2025 [facility] NoteSum[facility]03-06-2025 History of Present illness Narrative* Nelli Corrales RPFT - 06/14/2024 10:56 AM EST PULM FUNCTION: Provider: Adriana Joya APRN.WINDER HELPER Assisting Tech: Nelli Corrales RPFT Spirometry w/BD: 1 documented in this encounterMer[facility]03-04-2025 NoteSum[facility]03-04-2025 History of Present illness Narrative* Adriana Joya APRN.WINDER HELPER - 06/12/2024 12:39 PM EST Images from the original note were not included. Darling Florez is a 68 year old female here for a Medicare wellness visit. Medicare Health Risk Assessment General Health [place] Exercise: Minutes/Day 20 minwalking Exercise: Days/Week 5 daysdaily Alcohol: Daily Use Monthly or lessoccasional wine Alcohol: Drinks/Day 1 or 20-1 Alcohol: 6 or more drinks Neverno Feel off balance Yesoccasional, helped with meclizine Concerns: Teeth/Dentures Nodentures, needs refit Concerns: Sexual function Nono concerns report Troubled by feelings Anxiousoccasional anxiety and depression, celexa seems to help Frequency: Eating healthy diet Several daysyes ADLs requiring help None of the aboveno Safety precautions in home/vehicle Yesno Smoke, vape, chews tobacco Nono Difficulty hearing Yessome decrease, has not yet had this checked Difficulty seeing Nobetter with right eye cataract surgery, needs left Current Providers Specialists: I have reviewed specialist-related care of the patient in the medical record. Medical/Family history review Reviewed and updated problem list, medical/surgical/family/social history, medications, and allergies. Opioid use review Opioid Medications (last 90 days) No data to display Anxiety/Depression screening PHQ-2 Score: 1 (Lower risk for depression) MICHAEL-2 Score: 2 (Lower risk for anxiety) Recommendation: no further intervention at this time Cognitive screening Mini Cog Score: 4 Cognitive screening reviewed and No further action needed (score 3-5). Functional Observation Was the patient's Timed Up & Go test unsteady or >= 12 seconds? No Advance Care Planning Surrogate decision maker and/or advance care plan documented Measurements BP 109/66 Pulse 61 Ht 177 cm (5' 9.69) Wt 105 kg (231 lb 7.7 oz) LMP 07/15/2010 BMI 33.52 kg/m Follows with ophthalmology. Latest Ref Rng 12/06/2023 12/23/2023 02/15/2024 05/09/2024 WBC 3.70 - 11.00 k/uL 3.42 (L) 6.68 2.20 (L) 2.73 (L) RBC 3.90 - 5.20 m/uL 3.29 (L) 3.10 (L) 3.26 (L) 3.37 (L) Hemoglobin 11.5 - 15.5 g/dL 11.9 11.3 (L) 11.9 12.2 Hematocrit 36.0 - 46.0 % 33.4 (L) 31.7 (L) 33.6 (L) 34.6 (L) MCV 80.0 - 100.0 fL 101.5 (H) 102.3 (H) 103.1 (H) 102.7 (H) MCH 26.0 - 34.0 pg 36.2 (H) 36.5 (H) 36.5 (H) 36.2 (H) MCHC 30.5 - 36.0 g/dL 35.6 35.6 35.4 35.3 RDW-CV 11.5 - 15.0 % 13.4 14.4 13.2 13.9 Platelet Count 150 - 400 k/uL 226 132 (L) 77 (L) 89 (L) MPV 9.0 - 12.7 fL 8.5 (L) 8.9 (L) 8.6 (L) 9.1 NRBC /100 WBC 0.0 0.0 0.0 0.0 Absolute nRBC <0.01 k/uL <0.01 <0.01 <0.01 <0.01 Neut% % 63.0 75.5 23.2 24.6 Abs Neut (ANC) 1.45 - 7.50 k/uL 2.15 5.04 0.51 (L) 0.67 (L) Lymph% % 31.0 16.8 64.5 62.6 Abs Lymph 1.00 - 4.00 k/uL 1.06 1.12 1.42 1.71 Mcdonough% % 4.0 7.0 10.0 11.0 Abs Mcdonough <0.87 k/uL 0.14 0.47 0.22 0.30 Eosin% % 1.0 0.0 0.9 0.7 Abs Eosin <0.46 k/uL 0.03 <0.03 <0.03 <0.03 Baso% % 1.0 0.0 1.4 1.1 Abs Baso <0.11 k/uL 0.03 <0.03 0.03 0.03 Platelet Estimate Adequate Red Cell Morph Reviewed: see results of individual morphologies Polychromasia Slight Anisocytosis Present Ovalocytes Few Tear Drop Few DTYPE Manual Auto Auto Auto Immature Gran % % 0.7 0.0 0.0 IMMATURE GRANS (ABS) <0.10 k/uL 0.05 <0.03 <0.03 Protein, Total 6.3 - 8.0 g/dL 7.1 6.9 6.6 6.9 Albumin 3.9 - 4.9 g/dL 4.3 4.5 4.3 4.5 Calcium 8.5 - 10.2 mg/dL 8.7 9.2 9.4 9.6 Bilirubin, Total 0.2 - 1.3 mg/dL 0.6 0.4 0.6 0.4 Alkaline Phosphatase 34 - 123 U/L 88 65 55 53 AST 13 - 35 U/L 23 30 30 26 ALT 7 - 38 U/L 22 36 27 25 Glucose 74 - 99 mg/dL 140 (H) 153 (H) 126 (H) 113 (H) BUN 7 - 21 mg/dL 7 14 7 11 Creatinine 0.58 - 0.96 mg/dL 0.84 0.81 0.81 0.79 Sodium 136 - 144 mmol/L 141 137 140 139 Potassium 3.7 - 5.1 mmol/L 3.8 3.4 (L) 3.7 3.8 Chloride 98 - 107 mmol/L 107 105 105 105 CO2 22 - 30 mmol/L 23 22 24 26 Anion Gap 8 - 15 mmol/L 11 10 11 8 eGFR >=60 mL/min/1.73m 76 80 80 82 Hemoglobin A1C 4.3 - 5.6 % 5.4 Estimated Average Glucose mg/dL 108 CA27.29 <38.6 U/mL 24.2 23.8 Assessment/Plan Welcome to Medicare preventive visit (Z00.00) G0402(primary diagnosis) - Counseled on healthy diet and regular exercise - Fall avoidance information provided - Personalized prevention plan provided 2. Encounter for immunization - ICD9: V03.89, ICD10: Z23 - [employer] PRINTED PHARMACY INSTRUCTIONS - RSV PRINTED PHARMACY INSTRUCTIONS 3. Screening for cervical cancer - ICD9: V76.2, ICD10: Z12.4 Kathryn for appt with J [facility] 3. Screening for colon cancer - ICD9: V76.51, ICD10: Z12.[address] Espinoza, encourage check with him and Dr Disla about timing of colonoscopy - COLONOSCOPY SCREENING 4. Encounter for screening mammogram for breast cancer - ICD9: V76.12, ICD10: Z12.31 - Encourage monthly BSE - TERESE SCREENING W RAFY 5. Hypertension - ICD9: 401.9, ICD10: I10 13. Essential hypertension - ICD9: 401.9, ICD10: I10 controlled - Continue current medications - Encouraged sodium restriction, DASH or Mediterranean diet - Recommend regular aerobic exercise - HYDROCHLOROTHIAZIDE 12.5 MG CAPSULE 6. Asthma - ICD9: 493.90, ICD10: J45.909 controlled - Continue current medications - Avoidance of triggers recommended - SPIROMETRY - BASELINE AND POST DILATOR 7. Encounter for screening examination for other mental health and behavioral disorders - ICD9: V79.8, ICD10: Z13.39 - ANXIETY SCREENING 8. Depression, unspecified depression type - ICD9: 311, ICD10: F32.A - CITALOPRAM 40 MG TABLET 9. Allergic rhinitis, unspecified seasonality, unspecified trigger - ICD9: 477.9, ICD10: J30.9 Controlled, continue current treatment unchanged - FLUTICASONE PROPIONATE 50 MCG/ACTUATION NASAL SPRAY,SUSPENSION 10. DDD (degenerative disc disease), lumbar - ICD9: 722.52, ICD10: M51.369 Controlled, continue current treatment unchanged - GABAPENTIN 100 MG CAPSULE - GABAPENTIN 600 MG TABLET 11. Bilateral sciatica - ICD9: 724.3, ICD10: M54.31, M54.32 Controlled, continue current treatment unchanged - GABAPENTIN 100 MG CAPSULE - GABAPENTIN 600 MG TABLET 12. Fibromyalgia - ICD9: 729.1, ICD10: M79.7 Controlled, continue current treatment unchanged - GABAPENTIN 600 MG TABLET 14. Benign paroxysmal positional vertigo, unspecified laterality - ICD9: 386.11, ICD10: H81.10 - MECLIZINE 25 MG TABLET 15. Atherosclerosis of [place] coronary artery of [place] heart without angina pectoris - ICD9: 414.01, ICD10: I25.10 - LIPID PANEL BASIC Notes hip and knee pain. Encouraged follow-up with orthopedics, has discussed injections in the past and may be helpful. Adriana Joya APRN.CNS documented in this encounterMer[facility]03-04-2025 Instructions* Patient Instructions* Adriana Joya APRN.CNS - 06/12/2024 12:39 PM EST Screening schedule The following prevention plan is recommended: Spirometry Never done Anxiety Screening Never done RSV Vaccine(1 - Risk 60-74 years 1-dose series) Never done Shingrix Vaccine(1 of 2) due on 12/27/2016 Cervical Cancer Screening due on 12/11/2022 Colorectal Cancer Screening due on 05/18/2023 Mammogram Screening due on 12/31/2023 Advance Directive Discussion due on 04/11/2024 BP Controlled (<130/80) due on 05/27/2024 LDL Cholesterol due on 06/22/2024 WHAT YOU CAN DO TO PREVENT FALLS Many falls can be prevented. By making some changes, you can lower your chances of falling. Four things YOU can do to prevent falls for you* and your caregiver 1. Begin a regular exercise program Exercise is one of the most important ways to lower your chances of falling. It makes you stronger and helps you feel better. Exercises that improve balance and coordination (like Agustin Chi) are the most helpful. Lack of exercise leads to weakness and increases your chances of falling. Ask your doctor or health care provider about the best type of exercise program for you. 2. Have your health care provider review your medicines Have your doctor or pharmacist review all the medicines you take, even [id number] medicines. As you get older, the way medicines work in your body can change. Some medicines, or combinations of medicines, can make you sleepy or dizzy andcan cause you to fall. 3. Have your vision checked Have your eyes checked by an eye doctor at least once a year. You may be wearing the wrong glasses or have a condition like glaucoma or cataracts that limits your vision. Poor vision can increase your chances of falling. 4. Make your home safer About half of all falls happen at home. To make your home safer: Remove things you can trip over (like papers, books, clothes, and shoes) from stairs and places where you walk. Remove small throw rugs or use double-sided tape to keep the rugs from slipping. Keep items you use often in cabinets you can reach easily without using a step stool. Have grab bars put in next to your toilet and in the tub or shower. Use non-slip mats in the bathtub and on shower floors. Improve the lighting in your home. As you get older, you need brighter lights to see well. Hang light-weight curtains or shades to reduce glare. Have handrails and lights put in on all staircases. Wear shoes both inside and outside the house. Avoid going barefoot or wearing slippers. For more information, contact: Centers for Disease Control and Prevention www.cdc.gov/injury * This information may not apply if you have certain medical conditions. documented in this encounterMer[facility]02-25-2025 Telephone encounter Note * Telephone Encounter - Yamel Hernández LPN - 06/05/2024 8:21 AM EST Patient notified of below results, verbalized understanding. Yamel Hernández LPN [facility]02-25-2025 Telephone encounter Note* Telephone Encounter - Yamel Hernández LPN - 06/05/2024 8:21 AM EST ----- Message from Jean Carlos Avila MD sent at 06/05/2024 7:30 AM EST ----- Negative viral panel. [facility]02-25-2025 Miscellaneous Notes* Telephone Encounter - Yamel Hernández LPN - 06/05/2024 8:21 AM EST Patient notified of below results, verbalized understanding. Yamel Hernández LPN * Telephone Encounter - Yamel Hernández LPN - 06/05/2024 8:21 AM EST ----- Message from Jean Carlos Avila MD sent at 06/05/2024 7:30 AM EST ----- Negative viral panel. documented in this encounterMercy Health [facility]02-24-2025 NoteSum[facility]02-24-2025 History of Present illness Narrative* Jean Carlos Avila MD - 06/04/2024 8:07 PM EST This note was created using Appiterate. Subjective Patient presents with: Sore Throat Cough Darling Florez is a 68 year old female who started with aches, chills, sore throat, cough with scant clear phlegm, and nausea yesterday. She started taking Robitussin DM with fair relief. She was concerned about her asthma worsening. Other symptom was scant epistaxis. Her and her gathered at their latter-day this weekend where some people were masked, and otherscoughing. Review of Systems Constitutional: Negative for diaphoresis and fever. HENT: Positive for ear pain and sore throat. Negative for sinus pressure. Respiratory: Negative for shortness of breath and wheezing. Gastrointestinal: Negative for diarrhea and vomiting. Genitourinary: Negative for dysuria. ACTIVE PROBLEM LIST Hypertension Lumbar Disc Disease Depression Fibrocystic Breast Seafood Allergy, Anaphylaxis Fibromyalgia Ddd (Degenerative Disc Disease), Lumbar Bilateral Sciatica Obesity (Bmi 35.0-39.9 Without Comorbidity) Asthma Atherosclerotic Heart Disease of [place] Coronary Artery Without Angina Pectoris Former Smoker Gastroesophageal Reflux Disease Invasive Ductal Carcinoma of Breast, Left (Hcc) Dyslipidemia Social History Tobacco Use Smoking status: Former Current packs/day: 0.00 Types: Cigarettes Quit date: 04/11/1993 Years since quittin.1 Smokeless tobacco: Never Vaping Use Vaping status: Never Used Substance Use Topics Alcohol use: Yes Comment: Rarely Drug use: No Current Outpatient Medications Medication Sig nystatin (MYCOSTATIN) 100,000 unit/mL suspension Take 5 mL by mouth four times daily. 1tsp swish inmouth for several minutes, then swallow (or expectorate) 4 times daily until gone. elderberry fruit (ELDERBERRY ORAL) Take 1 tablet by mouth once daily. multivitamin tablet Take 1 tablet by mouth once daily. ascorbic acid (VITAMIN C ORAL) Take 1 tablet by mouth once daily. Dextromethorphan-guaiFENesin (ROBITUSSIN COUGH-CHEST JUDIT DM) 5-100 mg/5 mL liqd Take 10 mL by mouth every 4 hours as needed. anastrozole (ARIMIDEX) 1 mg tablet take 1 tablet by mouth once daily. prochlorperazine (COMPAZINE) 10 mg tablet Take 1 tablet by mouth every 6 hours as needed. palbociclib (IBRANCE) 125 mg tablet Take 1 tablet (125 mg) by mouth once daily. Take for 21 days on, followed by 7 days off. Take with or without food. hydroCHLOROthiazide 12.5 mg capsule Take 1 capsule by mouth once daily. As directed citalopram (CELEXA) 40 mg tablet Take 1 tablet by mouth once daily. losartan (COZAAR) 25 mg tablet Take 1 tablet by mouth once daily. pantoprazole DR (PROTONIX) 40 mg tablet Take 1 tablet by mouth daily before breakfast. Take on empty stomach, 1/2 hr before meal. fluticasone (FLONASE) 50 mcg/actuation nasal spray Use 2 Sprays in each nostril once daily. as needed. Rinse mouth after use. meclizine (ANTIVERT) 25 mg tab Take 1 tablet by mouth every 6 hours as needed (dizziness). atorvastatin (LIPITOR) 40 mg tablet Take 1 tablet by mouth daily at bedtime. montelukast (SINGULAIR) 10 mg tablet Take 1 tablet by mouth daily at bedtime. isosorbide mononitrate ER (IMDUR) 60 mg 24 hr tablet Take 60 mg by mouth once daily. SYMBICORT 160-4.5 mcg/actuation inhaler Inhale 2 Puffs as instructed two times a day as needed. amLODIPine (NORVASC) 2.5 mg tablet Take 2.5 mg by mouth once daily. azelastine 0.1% nasal spray Use 2 Sprays in each nostril as needed. cholecalciferol, vitamin D3, (VITAMIN D3 ORAL) Take 2,000 Units by mouth once daily. albuterol HFA (PROVENTIL HFA, VENTOLIN HFA) 90 mcg/actuation inhaler 2 puffs 4 times daily as needed. EPINEPHrine (EPIPEN) 0.3 mg/0.3 mL (1:1,000) auto-injector (Dr. Wadsworth) gabapentin (NEURONTIN) 100 mg capsule Take 1 capsule by mouth two times a day as needed for up to 180 days. In addition to taking 600 mg pill at bedtime gabapentin (NEURONTIN) 600 mg tablet Take 1 tablet by mouth daily at bedtime for 180 days. As directed albuterol (PROVENTIL) 2.5 mg /3 mL (0.083 %) nebulizer solution Use 3 mL via nebulizer one time only for 1 dose. Use over 5-15minutes. aspirin 81 mg chewable tablet Take 81 mg by mouth once daily. (Patient not taking: Reported on 05/19/2024) No current facility-administered medications for this visit. Objective BP 132/76 (BP Site: Left Arm, BP Position: Sitting, BP Cuff Size: Large Adult) Pulse 72 Temp 37.2 C (98.9 F) (Temporal) Wt 106.9 kg (235 lb 10.8 oz) LMP 07/15/2010 BMI 34.51 kg/m Physical Exam Constitutional: General: She is not in acute distress. Appearance: She is not ill-appearing or diaphoretic. HENT: Right Ear: Tympanic membrane normal. Left Ear: Tympanic membrane normal. Nose: Congestion present. No rhinorrhea. Mouth/Throat: Mouth: Mucous membranes are moist. Pharynx: Oropharynx is clear. Eyes: Conjunctiva/sclera: Conjunctivae normal. Pulmonary: Effort: No respiratory distress. Breath sounds: No wheezing, rhonchi or rales. Lymphadenopathy: Cervical: No cervical adenopathy. Neurological: Mental Status: She is alert. Assessment and Plan 1. Sore throat - ICD9: 462, ICD10: J02.9 (primary diagnosis) - suspect viral. See printed instructions or information. Further recommendations will depend on test results. - COVID & INFLUENZA A/B & RSV PCR, ROUTINE 2. Mild asthma without complication, unspecified whether persistent - ICD9: 493.90, ICD10: J45.909 - stable. - Continue current medications Jean Carlos Avila MD documented in this encounterMer[facility]02-24-2025 [id number] (AGENT OF COVID-19) RNA: Not detected INFLUENZA A RNA: Not detected INFLUENZA B RNA: Not detected RESPIRATORY SYNCYTIAL VIRUS (RSV) RNA: Not detectedSumma Health Barberton CampusComment on above:Performed By: #### [id number]- [id number] ####[facility] LABCLIA [id number] [address]02-24-2025 Instructions* Patient Instructions* Jean Carlos Avila MD - 06/04/2024 7:47 PM EST You have a viral illness for which antibiotics are not recommended. Viral illnesses, like a cold, resolve on their own, unless a secondary infection occurs. You need rest, fluids, and over the counter medications for symptoms. If prescribed a medication for a specific viral infection, start this immediately. Call us if symptoms worsen, persist, or if you have new symptoms in several days. Preventing the Spread of Respiratory Viruses Stay home and away from others if you have respiratory virus symptoms... You can go back to your normal activities when for for at least 24 hours, both are true: 1. Your symptoms are getting better overall, AND 2. You have not had a fever (and are not using fever-reducing medications). When you go back to normal activities, take added precautions over the next 5 days, such as taking additions steps for cleaner industrial air, hygiene, masks, physical distancing, and or testing when you will be around other people indoors. For more information go to https://www.cdc.gov/respiratory-viruses/prevention/index.html documented in this encounterMercy Health [facility]02-12-2025 NoteSumma Health Barberton Campus02-12-2025 History of Present illness Narrative* Jean Carlos Avila MD - 05/23/2024 10:52 AM EST This note was created using Appiterate. Subjective Darling Florez is a 68 year old female. She's had dysuria and malodorous urine for 2 weeks. She wastold it might be related to antibiotic treatments for pneumonia 2 months ago. She went to 4 daysago. UA was abnormal, but culture was contaminated. Review of Systems Constitutional: Negative for chills and fever. HENT: Negative. Respiratory: Negative for cough, shortness of breath and wheezing. Gastrointestinal: Negative for abdominal pain, diarrhea, nausea and vomiting. Genitourinary: Negative for flank pain, hematuria, vaginal bleeding, vaginal discharge and vaginal pain. ACTIVE PROBLEM LIST Hypertension Lumbar Disc Disease Depression Fibrocystic Breast Seafood Allergy, Anaphylaxis Fibromyalgia Ddd (Degenerative Disc Disease), Lumbar Bilateral Sciatica Obesity (Bmi 35.0-39.9 Without Comorbidity) Asthma Atherosclerotic Heart Disease of [place] Coronary Artery Without Angina Pectoris Former Smoker Gastroesophageal Reflux Disease Invasive Ductal Carcinoma of Breast, Left (Hcc) Social History Tobacco Use Smoking status: Former Current packs/day: 0.00 Types: Cigarettes Quit date: 04/11/1993 Years since quittin.1 Smokeless tobacco: Never Vaping Use Vaping status: Never Used Substance Use Topics Alcohol use: Yes Comment: Rarely Drug use: No Current Outpatient Medications Medication Sig nystatin (MYCOSTATIN) 100,000 unit/mL suspension Take 5 mL by mouth four times daily. 1tsp swish inmouth for several minutes, then swallow (or expectorate) 4 times daily until gone. elderberry fruit (ELDERBERRY ORAL) Take 1 tablet by mouth once daily. multivitamin tablet Take 1 tablet by mouth once daily. ascorbic acid (VITAMIN C ORAL) Take 1 tablet by mouth once daily. Dextromethorphan-guaiFENesin (ROBITUSSIN COUGH-CHEST JUDIT DM) 5-100 mg/5 mL liqd Take 10 mL by mouth every 4 hours as needed. anastrozole (ARIMIDEX) 1 mg tablet take 1 tablet by mouth once daily. gabapentin (NEURONTIN) 100 mg capsule Take 1 capsule by mouth two times a day as needed for up to 180 days. In addition to taking 600 mg pill at bedtime gabapentin (NEURONTIN) 600 mg tablet Take 1 tablet by mouth daily at bedtime for 180 days. As directed prochlorperazine (COMPAZINE) 10 mg tablet Take 1 tablet by mouth every 6 hours as needed. palbociclib (IBRANCE) 125 mg tablet Take 1 tablet (125 mg) by mouth once daily. Take for 21 days on, followed by 7 days off. Take with or without food. hydroCHLOROthiazide 12.5 mg capsule Take 1 capsule by mouth once daily. As directed citalopram (CELEXA) 40 mg tablet Take 1 tablet by mouth once daily. losartan (COZAAR) 25 mg tablet Take 1 tablet by mouth once daily. pantoprazole DR (PROTONIX) 40 mg tablet Take 1 tablet by mouth daily before breakfast. Take on empty stomach, 1/2 hr before meal. fluticasone (FLONASE) 50 mcg/actuation nasal spray Use 2 Sprays in each nostril once daily. as needed. Rinse mouth after use. meclizine (ANTIVERT) 25 mg tab Take 1 tablet by mouth every 6 hours as needed (dizziness). atorvastatin (LIPITOR) 40 mg tablet Take 1 tablet by mouth daily at bedtime. montelukast (SINGULAIR) 10 mg tablet Take 1 tablet by mouth daily at bedtime. isosorbide mononitrate ER (IMDUR) 60 mg 24 hr tablet Take 60 mg by mouth once daily. SYMBICORT 160-4.5 mcg/actuation inhaler Inhale 2 Puffs as instructed two times a day as needed. amLODIPine (NORVASC) 2.5 mg tablet Take 2.5 mg by mouth once daily. azelastine 0.1% nasal spray Use 2 Sprays in each nostril as needed. cholecalciferol, vitamin D3, (VITAMIN D3 ORAL) Take [...] Take 81 mg by mouth once daily. (Patient not taking: Reported on 05/19/2024) No current facility-administered medications for this visit. Objective BP 146/80 (BP Site: Left Arm, BP Position: Sitting, BP Cuff Size: Large Adult) Pulse 68 Temp 36.8 C (98.2 F) (Temporal) Resp 18 Wt 106.8 kg (235 lb 7.2 oz) LMP 07/15/2010 BMI 34.48 kg/m Physical Exam Constitutional: General: She is not in acute distress. Appearance: She is not ill-appearing. Cardiovascular: Rate and Rhythm: Normal rate and regular rhythm. Heart sounds: No murmur heard. No gallop. Pulmonary: Effort: No respiratory distress. Breath sounds: No wheezing or rales. Abdominal: Palpations: Abdomen is soft. Tenderness: There is no abdominal tenderness. There is no right CVA tenderness or left CVA tenderness. Neurological: Mental Status: She is alert. Assessment and Plan 1. Dysuria - ICD9: 788.1, ICD10: R30.0 (primary diagnosis) acute - Patient education for prevention given - Shared medical decision making was done. We agreed to empiric treatment x 3 days, pending cultureresults. - UA DIP, URINE (POC) - BACTERIAL CULTURE, URINE - NITROFURANTOIN MONOHYDRATE & MACROCRYSTAL 100 MG ORAL CAP 2. Primary hypertension - ICD9: 401.9, ICD10: I10 - Worsening control - Continue current medications - Keep wellness visit appointment next month. 3. Need for COVID-19 vaccine - ICD9: V04.89, ICD10: Z23 - PFIZER-BIONTECH COVID-19 VACCINE AGE 12+ YR (COMIRNATY) Jean Carlos Avila MD documented in this encounterMer[facility]02-10-2025 Telephone encounter Note * Telephone Encounter - Birdie Delgado RN - 05/21/2024 2:39 PM EST Pt called and is notified of providers results and instructions. Pt voices understanding. Birdie Delgado RN [facility]02-10-2025 Miscellaneous Notes* Telephone Encounter - Birdie Delgado RN - 05/21/2024 2:39 PM EST Pt called and is notified of providers results and instructions. Pt voices understanding. Birdie Delgado RN * Telephone Encounter - Eve Anguiano MA - 05/21/2024 2:26 PM EST Left message for patient to return call. Eve Anguiano MA * Telephone Encounter - Juliette Barrientos PA - 05/21/2024 11:47 AM EST Please contact patient and let her know urine culture revealed mixed bacteria. This may indicate contamination during collection. If symptoms are persistent, she needs to follow-up with PCP. documented in this encounterMercy [facility]02-10-2025 Telephone encounter Note * Telephone Encounter - Eve Anguiano MA - 05/21/2024 2:26 PM EST Left message for patient to return call. Eve Anguiano MA [facility]02-10-2025 Telephone encounter Note* Telephone Encounter - Juliette Barrientos PA - 05/21/2024 11:47 AM EST Please contact patient and let her know urine culture revealed mixed bacteria. This may indicate contamination during collection. If symptoms are persistent, she needs to follow-up with PCP. [facility] Work Phone: [phone] Telephone encounter Note* Telephone Encounter - Eve Anguiano MA - 05/20/2024 3:06 PM EST Patient came back in for urine cx. Eve Anguiano MA [facility]02-09-2025 Miscellaneous Notes* Telephone Encounter - Eve Anguiano MA - 05/20/2024 3:06 PM EST Patient came back in for urine cx. Eve Anguiano MA * Telephone Encounter - Ashley Gnuter APRN.CNP - 05/20/2024 2:22 PM EST This INTERNATIONAL LOGISTICS ANALYST called patient at [phone] and identified with name and . Informed of negative vaginal cultures, and urine culture was not sent Patient will return to clinic for urine culture. Order placed. All questions answered. Ashley Gunter CNP documented in this encounterMercy [facility]02-09-2025 Telephone encounter Note * Telephone Encounter - Ashley Gunter APRN.CNP - 05/20/2024 2:22 PM EST This INTERNATIONAL LOGISTICS ANALYST called patient at [phone] and identified with name and . Informed of negative vaginal cultures, and urine culture was not sent Patient will return to clinic for urine culture. Order placed. All questions answered. Ashley Gunter CNP [facility]02-08-2025 NoteSumma Health Barberton Campus02-08-2025 History of Present illness Narrative* Jenniffer Garcia APRN.CNP - 05/19/2024 3:00 PM EST This note was created using NoteWriter. Subjective Darling Florez is a 68 year old female. Recently on prednisone and antibiotic. Past 1.5 weeks has white thick coating to tongue and irritation/ pain. Also reporting urinary urgency and burning with urination. Objective BP 143/73 Pulse 63 Temp 36.6 C (97.8 F) Resp 20 Wt 106 kg (233 lb 11 oz) LMP 07/15/2010 SpO2 99% BMI 34.22 kg/m Physical Exam PHYSICAL EXAMINATION: General appearance: Well appearing, alert, in no acute distress, well-hydrated, well nourished. Nose/Sinuses: Nares normal, septum midline, mucosa normal, no drainage or sinus tenderness Oropharynx: Positive findings: leukoplakia Latest Ref Rng 05/19/2024 GLUCOSE UA (POCT) Negative mg/dL Negative BILIRUBIN UA (POCT) Negative Negative KETONE UA (POCT) Negative mg/dL Negative SPECIFIC GRAVITY UA (POCT) 1.005 - 1.030 1.025 HEMOGLOBIN/BLOOD UA (POCT) Negative Trace-intact ! PH UA (POCT) 4.5 - 8.0 5.5 PROTEIN UA (POCT) Negative mg/dL 30 ! UROBILINOGEN UA (POCT) Normal E.U./dL 0.2 NITRITE UA (POCT) Negative Negative LEUKOCYTES UA (POCT) Negative Negative COLOR UA (POCT) Yellow CLARITY UA (POCT) Clear Assessment and Plan ASSESSMENT/PLAN: 1. Burning with urination - ICD9: 788.1, ICD10: R30.0 (primary diagnosis) acute - UA positive for hematuria and proteinuria - Send urine for culture - Patient education for prevention given - Swab BV, Trich and yeast obtained - LARRY/TRICHOMONAS NAAT - BACTERIAL VAGINOSIS NAAT - UA DIP, URINE (POC) 2. Thrush - ICD9: 112.0, ICD10: B37.0 - NYSTATIN 100,000 UNIT/ML ORAL SUSPENSION Jenniffer Garcia APRN.BURRING WHEEL OPERATOR documented in this encounterMercy Health [facility]01-29-2025 History of Present illness Narrative* Chandrakant Kelley - 05/09/2024 1:30 PM EST Darling Florez 1955 05/09/2024 HISTORY OF PRESENT ILLNESS: Darling Florez is a 67 year old female with abnormal mammogram in December, work up shows several axillary LN, biopsy shows carcinoma c/w breast primary, ER+/SD+/Her2 0. Here to establish medical oncoogy care, referred by Dr Bae breast surgery. Reviewed findings thus far. Very stressed, but otherwise no sx. Family history reviewed. genetics negative. Reviewed case in detail with Dr Bae breast surgery. Bone scan and CT scans concerning for bone metastases. Discussed with IR, they are too small to biopsy. Trial of AI then undertaken. Anastrozole started February 2023. She feels well, we reviewed follow up scans wherein bone lesion show regression and healing. Also breast mass and axillary nodes smaller. Unfortunately this very much suggests bone lesions are metastatic deposits of breast cancer. We discussed that this shows stage IV disease. Dr Bae agrees, surgery not pursued. Started ibrance July 2023. Doing ok, no complaints Reviewed bone scan from 12-19-23, shows stable findings. Interval Hx: Pt presents today with spouse. Doing well. No recent illness. HF and joint aches are stable, tolerable. Denies any new aches or pains. No new lumps or bumps. Has occasional breast pains. No changes in bowel or bladder habits. No hematuria, hematochezia. No neuro symptoms. Denies SOB, CP. Tolerating medications well. Reviewed recent scans imaging and tumor markers with her and her spouse today CLINICAL IMPRESSION: [id number], stage IV Bone lesions on scans suspicious for mets, but too small to biopsy. Response to AI suggests metastatic disease. Reviewed treatment and rational with patient and spouse today, all questions answered at this time. RECOMMENDATION/PLAN: 1. Continue anastrozole ibrance, zometa. Plan zometa every 3 months. OV with CBC, CMP, tumor markers. Every 3 months. Next OV as scheduled with Dr. 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 CRYO CAUTERY CERVIX 1987 EXCISION CHRIS'S NEUROMA, SINGLE, EACH 1995 R foot NEUROPLASTY [...] half-aunt No Ocular Disease No Family History Social History Tobacco Use Smoking status: Former Current packs/day: 0.00 Types: Cigarettes Quit date: 04/11/1993 Years since quittin.0 Smokeless tobacco: Never Vaping Use Vaping status: Never Used Substance Use Topics Alcohol use: Yes Comment: Rarely Drug use: No ALLERGIES: ALLERGIES Allergen Reactions Apple Hives, Anaphylaxis Banana Hives, Anaphylaxis Carrot Hives, Anaphylaxis Pineapple Itching, Anaphylaxis Shellfish Derived Swelling, Anaphylaxis Food allergies--lip and tongue swelling (Dr. Wadsworth diagnosed and prescribes EpiPen) Shrimp and lobster the worst Amoxicillin Other: See Comments Yeast infection CURRENT OUTPATIENT MEDICATIONS: elderberry fruit (ELDERBERRY ORAL)^Take 1 tablet by mouth once daily.^Disp: ^Rfl: multivitamin tablet^Take 1 tablet by mouth once daily.^Disp: ^Rfl: ascorbic acid (VITAMIN C ORAL)^Take 1 tablet by mouth once daily.^Disp: ^Rfl: Dextromethorphan-guaiFENesin (ROBITUSSIN COUGH-CHEST JUDIT DM) 5-100 mg/5 mL liqd^Take 10 mL by mouth every 4 hours as needed.^Disp: 237 mL^Rfl: 0 anastrozole (ARIMIDEX) 1 mg tablet^take 1 tablet by mouth once daily.^Disp: 90 tablet^Rfl: 3 gabapentin (NEURONTIN) 100 mg capsule^Take 1 capsule by mouth two times a day as needed for up to 180 days. In addition to taking 600 mg pill at bedtime^Disp: 60 capsule^Rfl: 5 gabapentin (NEURONTIN) 600 mg tablet^Take 1 tablet by mouth daily at bedtime for 180 days. As directed^Disp: 30 tablet^Rfl: 5 prochlorperazine (COMPAZINE) 10 mg tablet^Take 1 tablet by mouth every 6 hours as needed.^Disp: 30 tablet^Rfl: 1 palbociclib (IBRANCE) 125 mg tablet^Take 1 tablet (125 mg) by mouth once daily. Take for 21 days on, followed by 7 days off. Take with or without food.^Disp: 21 tablet^Rfl: 11 hydroCHLOROthiazide 12.5 mg capsule^Take 1 capsule by mouth once daily. As directed^Disp: 90 capsule^Rfl: 3 citalopram (CELEXA) 40 mg tablet^Take 1 tablet by mouth once daily.^Disp: 90 tablet^Rfl: 3 losartan (COZAAR) 25 mg tablet^Take 1 tablet by mouth once daily.^Disp: 90 tablet^Rfl: [address] (PROTONIX) 40 mg tablet^Take 1 tablet by mouth daily before breakfast. Take on empty stomach, 1/2 hr before meal.^Disp: 30 tablet^Rfl: 11 fluticasone (FLONASE) 50 mcg/actuation nasal spray^Use 2 Sprays in each nostril once daily. as needed. Rinse mouth after use.^Disp: 1 Each^Rfl: 11 meclizine (ANTIVERT) 25 mg tab^Take 1 tablet by mouth every 6 hours as needed (dizziness).^Disp: 30tablet^Rfl: 0 atorvastatin (LIPITOR) 40 mg tablet^Take 1 tablet by mouth daily at bedtime.^Disp: 90 tablet^Rfl: 2 montelukast (SINGULAIR) 10 mg tablet^Take 1 tablet by mouth daily at bedtime.^Disp: 30 tablet^Rfl: 11 isosorbide mononitrate ER (IMDUR) 60 mg 24 hr tablet^Take 60 mg by mouth once daily.^Disp: ^Rfl: SYMBICORT 160-4.5 mcg/actuation inhaler^Inhale 2 Puffs as instructed two times a day as needed.^Disp: ^Rfl: amLODIPine (NORVASC) 2.5 mg tablet^Take 2.5 mg by mouth once daily.^Disp: ^Rfl: azelastine 0.1% nasal spray^Use 2 Sprays in each nostril as needed.^Disp: ^Rfl: cholecalciferol, vitamin D3, (VITAMIN D3 ORAL)^Take 2,000 Units by mouth once daily.^Disp: ^Rfl: albuterol HFA (PROVENTIL HFA, VENTOLIN HFA) 90 mcg/actuation inhaler^2 puffs 4 times daily as needed.^Disp: 1 Inhaler^Rfl: 3 albuterol (PROVENTIL) 2.5 mg /3 mL (0.083 %) nebulizer solution^Use 3 mL via nebulizer one time only for 1 dose. Use over 5-15minutes.^Disp: 50 Vial^Rfl: 0 EPINEPHrine (EPIPEN) 0.3 mg/0.3 mL (1:1,000) auto-injector^(Dr. Wadsworth)^Disp: ^Rfl: aspirin 81 mg chewable tablet^Take 81 mg by mouth once daily. ^Disp: ^Rfl: 0 (Patient not taking: Reported on 03/30/2023) REVIEW OF SYSTEMS: GENERAL: No fever, night sweats, weight loss or malaise. All other reviewed and negative other than HPI. All systems reviewed on 05/09/2024 with pertinent positives and negatives as outlined in the interval history. PHYSICAL EXAMINATION: VITAL SIGNS: BP 136/80 Pulse 69 Temp (Src) 97.4 (Temporal) Wt 236 lb (107.0kg) SpO2 96% LMP 07/15/2010 GENERAL APPEARANCE: Well appearing, in no acute distress, alert and oriented x3, well-hydrated, well nourished. Breast: Dense breast tissue bilaterally. No ulcerations or skin lesions, no nipple discharge. Palpable lad, per patient no changes in this. HEART: RRR CHEST: Clear bilaterally. I have performed the physical exam today (05/09/2024) and have edited the note to correlate with current findings. Chandrakant Kelley APRN.BURRING WHEEL OPERATOR I spent a total of 35 minutes on the date of the service which included preparing to see the patient, [id number] patient care, completing clinical documentation, obtaining and/or reviewing separately obtained history, and counseling and educating the patient/family/caregiver. Portions of this note including HPI, ROS, impression/plan may have been copied forward as to provide important historical information essential in contributing to medical decision making. Documentation has been reviewed and edited as necessary to support clinical decision making for today's visit and to reflect my own independent evaluation of this patient. The sensitive examination was discussed with the Patient or Patient's Authorized Borough Coordinator. The Patient or Authorized Borough Coordinator has agreed to proceed with the sensitive examination. (Sensitive examination includes inspection and/or palpation of the breasts, pelvis, prostate and anorectal regions) documented in this encounterMercy [facility]01-29-2025 NoteSumma [facility]01-28-2025 Telephone encounter Note* Telephone Encounter - Martha Real LISW - 05/08/2024 8:53 AM EST Behavioral Health Social Work Progress Note Patient identified for [facility] from: PCP Reason for referral: [facility] Behavioral Health Resources: Psychology - talk therapy [facility] encounter type: Telephone Encounter Attempts to Outreach: 2 attempts Referral made: Psychology - Internal, Psychology - External Psychology-Internal referral type: Therapy Psychology-External referral type: Therapy Reason for external referral: Patient needs services closer to home Final Disposition: Unable to reach Patient Discharged?: No Patient reported that caregiver was able to meet their needs today?: N/A [facility] made a second attempt at reaching patient by phone, as they were not home on first attempt andMyChart is inactive. Received a message stating The subscriber you are trying to reach is currently not reachable, please try again later. Unable to leave a voicemail. Will send outreach via US mail. HARDY Godoy, ACM-SW May 08, 2024 [facility] Work Phone: [phone] Miscellaneous Notes* Telephone Encounter - Martha Real LISW - 05/08/2024 8:53 AM EST Behavioral Health Social Work Progress Note Patient identified for [facility] from: PCP Reason for referral: [facility] Behavioral Health Resources: Psychology - talk therapy [facility] encounter type: Telephone Encounter Attempts to Outreach: 2 attempts Referral made: Psychology - Internal, Psychology - External Psychology-Internal referral type: Therapy Psychology-External referral type: Therapy Reason for external referral: Patient needs services closer to home Final Disposition: Unable to reach Patient Discharged?: No Patient reported that caregiver was able to meet their needs today?: N/A SW made a second attempt at reaching patient by phone, as they were not home on first attempt andMyChart is inactive. Received a message stating The subscriber you are trying to reach is currently not reachable, please try again later. Unable to leave a voicemail. Will send outreach via US mail. HARDY Godoy ACM-SW May 08, 2024 documented in this encounterMercy Health [facility]01-24-2025 Telephone encounter Note * Telephone Encounter - Martha Real LISW - 05/04/2024 3:10 PM EST Behavioral Health Social Work Progress Note Patient identified for [facility] from: PCP Reason for referral: [facility] Behavioral Health Resources: Psychology - talk therapy [facility] encounter type: Telephone Encounter Attempts to Outreach: 1 attempt Referral made: Psychology - Internal, Psychology - External Psychology-Internal referral type: Therapy Psychology-External referral type: Therapy Reason for external referral: 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 Patient's spouse answered the telephone and stated she was not home. Will attempt to call again next week. HARDY Godoy ACM-SW May 04, 2024 [facility] Work Phone: [phone] Miscellaneous Notes* Telephone Encounter - Martha Real LISW - 05/04/2024 3:10 PM EST Behavioral Health Social Work Progress Note Patient identified for [facility] from: PCP Reason for referral: [facility] Behavioral Health Resources: Psychology - talk therapy [facility] encounter type: Telephone Encounter Attempts to Outreach: 1 attempt Referral made: Psychology - Internal, Psychology - External Psychology-Internal referral type: Therapy Psychology-External referral type: Therapy Reason for external referral: Patient seeking long-term support Final Disposition: Unable to reach Patient Discharged?: No Patient reported that caregiver was able to meet their needs today?: N/A O [facility] contacted patient to discuss behavioral health services. Patient's spouse answered the telephone and stated she was not home. Will attempt to call again next week. HARDY Godoy, [facility]-SW May 04, 2024 documented in this encounterMer[facility]01-23-2025 [facility]Sum[facility]01-23-2025 History of Present illness Narrative* Geovanna Salcido RN - 05/03/2024 2:24 PM EST PRIMARY CARE COORDINATION QUICK NOTE Provider Action/FYI Patient [facility] screening completed. Patient would like an outreach from [facility]. Routed to [facility] Martha DASH. Patient identified by name and date . Geovanna Salcido RN May 03, 2024 2:24 PM documented in this encounterMercy Health [facility]12-10-2024 History of Present illness Narrative* Adriana Joya APRN.WINDER HELPER - 03/20/2024 9:20 AM EST SUBJECTIVE Darling Florez is a 68 year old female who presents with 2 days of symptoms that are stable. Symptoms include: Fever (>=100.4F): Perceived or Chills: Yes Cough: Yes Shortness of breath: No or Difficulty breathing: No Fatigue: Yes Muscle aches: No Headache: No New loss of smell or taste: No Sore throat: Yes Nasal congestion: Yes or Rhinorrhea: Yes Nausea: Yes or Vomiting: No Diarrhea: No OTC meds/remedies that patient has tried: Mucinex. High risk category assessment Age > 60 years old Exposures: Sick contacts? No Family or close contacts with confirmed/probable COVID-19 in last 14 days? No She reports that she quit smoking about 30 years ago. Her smoking use included cigarettes. She has never used smokeless tobacco. OBJECTIVE PHYSICAL EXAM: BP 117/72 Pulse 63 Temp 37.2 C (98.9 F) Resp 16 Wt 106.4 kg (234 lb 9.1 oz) LMP 07/15/2010 SpO2 97% BMI 34.35 kg/m General appearance: tired/ill appearing, alert, cooperative, pleasant, in no acute distress Head: Normocephalic Eyes: conjunctiva/corneas normal Ears: R TM - clear with good landmarks, nl light reflex, L TM - clear with good landmarks, nl lightreflex Nose: purulent rhinorrhea, mucosa erythematous and swollen Oropharynx: moist without lesions Neck: supple and small, benign anterior cervical nodes bilaterally Heart: regular rate and rhythm, without murmur Lungs: clear to auscultation, without rales or wheeze, good air exchange ASSESSMENT/PLAN (J32.9, J40) Sinobronchitis (primary encounter diagnosis) (R11.0) Nausea ASSESSMENT/PLAN: 1. Sinobronchitis - ICD9: 473.9, 490, ICD10: J32.9, J40 (primary diagnosis) - Will begin treatment with as per antibiotic as written, see orders - Supportive care with plenty of fluids, rest, and analgesia prn. - Follow up in if symptoms persist or worsen. - DOXYCYCLINE HYCLATE 100 MG TABLET - DEXTROMETHORPHAN-GUAIFENESIN 5 MG-100 MG/5 ML ORAL LIQUID - PREDNISONE 20 MG TABLET 2. Nausea - ICD9: 787.02, ICD10: R11.0 compazine as needed Adriana Joya APRN.WINDER HELPER Medical Decision Making: Problems: Low: Acute, uncomplicated illness or injury Risk: Low: Low risk from testing/treatment Moderate: Drug management Medical Decision Making Level: 3 - Low documented in this encounterMercy Health [facility]12-10-2024 NoteSumma [facility]11-18-2024 Telephone encounter Note* Telephone Encounter - Heller, Ania, SOFTBALL CORE MOLDER - 02/27/2024 1:35 PM EST SOCIAL WORK FOLLOW UP NOTE: [facility] Date of service: February 27, 2024 SW received renewal application for pt's Ibrance pt assistance program this date. SW reviewed application and had physician review and sign. SW successfully faxed to [employer] this date and sent to internal scanning. No other needs identified this date. SERGIO Saleem [facility]11-18-2024 Miscellaneous Notes* Telephone Encounter - Ania Tellez LISW - 02/27/2024 1:35 PM EST SOCIAL WORK FOLLOW UP NOTE: [facility] Date of service: February 27, 2024 SW received renewal application for pt's Ibrance pt assistance program this date. ISAEL reviewed application and had physician review and sign. ISAEL successfully faxed to [employer] this date and sent to internal scanning. No other needs identified this date. SERGIO Saleem documented in this encounterMercy Health [facility]11-06-2024 History of Present illness Narrative* Lacie Fisher RN - 02/15/2024 1:50 PM EST Starts new cycle of ibrance tomorrow, on 7. Dentures Lacie Fisher RN documented in this encounterMercy Health Cl[facility]10-09-2024 History of Present illness Narrative* Tea Morton RT(R) - 01/18/2024 11:00 AM EDT Radiology Service Progress Note PATIENT NAME: Darling Florez DATE OF SERVICE: January 18, 2024 TIME: 10:53 AM PATIENT IDENTITY VERIFICATION COMPLETED USING TWO (2) IDENTIFIERS: Name and Date of confirmedby patient verbally. FALL SCREENING: Has the patient had 2 falls in the last year or 1 fall with injury or currently using an Ambulatory Assistive Device (Walker, Cane, Wheelchair, Crutches, etc.)? No PATIENT GENDER DATA: Female. status: : No status: NO. PATIENT RELEVANT IMPLANT DATA REVIEWED: Not Applicable PATIENT PRESENTS WITH AN IMPLANTABLE OR ATTACHED IDENTIFICATION TECHNICIAN: No RADIOLOGY DEPARTMENT: General X-ray: Exam(s) Completed: Chest X-Ray PERIPHERAL IV DATA: Not applicable SIGNED BY: RT Salvador(R) January 18, 2024 10:53 AM documented in this encounterMercy Health Cl[facility]10-09-2024 History of Present illness Narrative* Iván Stone APRN.[facility] - 01/18/2024 10:48 AM EDT CC: Patient presents with: Sinus Problem: sinus pressure, drainage, chest congestion, cough, bodyaches x 5 days HPI: Darling Florez is a 68 year old female who presents to the office with complaint of chest congestion, head congestion, and cough, productive for a few days. Symptoms are worsening Associated symptoms includes body aches. Denies nausea, vomiting , and diarrhea. Treatments tried include nothing so far. with no relief of symptoms. Sick contacts: unknown. History of asthma, frequent episodes of bronchitis, chronic bronchitis, bronchiectasis or COPD: No Smoker: No Seasonal/environmental allergies: No The ROS is otherwise negative. The patient's pmh, medications, allergies, and past visits are reviewed. PHYSICAL EXAM: BP 122/70 Pulse 76 Temp 36.5 C (97.7 F) Resp 16 Wt 109.5 kg (241 lb 6.5 oz) LMP 07/15/2010 SpO2 95% BMI 35.35 kg/m General appearance: alert, cooperative, pleasant, in no acute distress Head: Normocephalic Eyes: EOM's intact, conjunctiva pink and moist, no icterus, sclera white, non-injected Ears: Right ear: External ear/canal- Normal, TM - clear with good landmarks. Left ear: External ear/canal- Normal, TM - clear with good landmarks Oropharynx:moist without lesions, No erythema, exudates or tonsillar hypertrophy. Heart: Negative. RRR without obvious murmur, gallop, or rubs. No ectopy. Lungs: clear to auscultation, without rales or wheeze, good air exchange PAST MEDICAL HISTORY Diagnosis Date Acute respiratory [...] PFRMD 05/18/2013 CRYO CAUTERY CERVIX 1987 EXCISION CHRIS'S NEUROMA, SINGLE, EACH 1995 R foot NEUROPLASTY &/TRANSPOS MEDIAN NRV CARPAL TUNNE Right 1998 Carpal tunnel decomp TUBAL LIGATION, ALLERGIES Apple, Banana, Carrot, Pineapple, Shellfish Derived, and Amoxicillin MEDICATIONS gabapentin (NEURONTIN) 100 mg capsule Take 1 capsule by mouth two times a day as needed for up to 180 days. In addition to taking 600 mg pill at bedtime gabapentin (NEURONTIN) 600 mg tablet Take 1 tablet by mouth daily at bedtime for 180 days. As directed prochlorperazine (COMPAZINE) 10 mg tablet Take 1 tablet by mouth every 6 hours as needed. palbociclib (IBRANCE) 125 mg tablet Take 1 tablet (125 mg) by mouth once daily. Take for 21 days on, followed by 7 days off. Take with or without food. hydroCHLOROthiazide 12.5 mg capsule Take 1 capsule by mouth once daily. As directed citalopram (CELEXA) 40 mg tablet Take 1 tablet by mouth once daily. losartan (COZAAR) 25 mg tablet Take 1 tablet by mouth once daily. pantoprazole DR (PROTONIX) 40 mg tablet Take 1 tablet by mouth daily before breakfast. Take on empty stomach, 1/2 hr before meal. fluticasone (FLONASE) 50 mcg/actuation nasal spray Use 2 Sprays in each nostril once daily. as needed. Rinse mouth after use. meclizine (ANTIVERT) 25 mg tab Take 1 tablet by mouth every 6 hours as needed (dizziness). atorvastatin (LIPITOR) 40 mg tablet Take 1 tablet by mouth daily at bedtime. anastrozole (ARIMIDEX) 1 mg tablet Take 1 tablet by mouth once daily. montelukast (SINGULAIR) 10 mg tablet Take 1 tablet by mouth daily at bedtime. isosorbide mononitrate ER (IMDUR) 60 mg 24 hr tablet Take 60 mg by mouth once daily. SYMBICORT 160-4.5 mcg/actuation inhaler as needed. amLODIPine (NORVASC) 2.5 mg tablet Take 2.5 mg by mouth once daily. azelastine 0.1% nasal spray Use 2 Sprays in each nostril as needed. cholecalciferol, vitamin D3, (VITAMIN D3 ORAL) Take [...] Take 81 mg by mouth once daily. (Patient not taking: Reported on 03/30/2023) FAMILY HISTORY Problem Relation Age of Onset [...] half-aunt No Ocular Disease No Family History Social History Tobacco Use Smoking status: Former Current packs/day: 0.00 Types: Cigarettes Quit date: 04/11/1993 Years since quittin.7 Smokeless tobacco: Never Vaping Use Vaping status: Never Used Substance Use Topics Alcohol use: Yes Comment: Rarely Drug use: No ASSESSMENT/PLAN: 1. Acute cough - ICD9: 786.2, ICD10: R05.1 - XR CHEST 2V FRONTAL/LAT * * * * Physician Interpretation * * * * EXAMINATION: CHEST RADIOGRAPH (2 VIEW FRONTAL & LATERAL) PATIENT/TECHNOLOGIST PROVIDED HISTORY: cough, congestion, sinus for 5 days CLINICAL HISTORY: 68 years old Female with Acute cough MQ: XC2_6 EXAM DATE/TIME: 01/18/2024 10:59 AM COMPARISON: Chest radiograph 09/06/2019, CT chest 06/23/2023 RESULT: Lines, tubes, and devices: None. Lungs and pleura: No consolidation. No pleural effusion. No pneumothorax. Cardiomediastinal silhouette: Normal cardiomediastinal silhouette. Bones and soft tissues: Mild endplate degenerative changes in the thoracic spine. IMPRESSION IMPRESSION: No acute radiographic abnormality. Border Measurer: YESY Transcribe Date/Time: Jan 18 2024 10:59A Dictated by : DO Bindu MARTINEZ prescribed Prescription instructions reviewed with patient as applicable. Potential red flag symptoms discussed with the patient. Reviewed appropriate action plan to take if red flag symptoms occur. Patient agreeable to treatment plan. Iván Stone APRN.BURRING WHEEL OPERATOR documented in this encounterMercy Health [facility]09-13-2024 History of Present illness Narrative* Heriberto Disla MD - 12/23/2023 2:02 PM EDT (Elements copied from my note dated October 26, 2023, have been reviewed and updated where appropriate, and all reflect current assessment and medical decision making from today's encounter, December 23, 2023) HISTORY OF PRESENT ILLNESS: Darling Florez is a 67 year old female with abnormal mammogram in December, work up shows several axillary LN, biopsy shows carcinoma c/w breast primary, ER+/SD+/Her2 0. Here to establish medical oncoogy care, referred by Dr Bae breast surgery. Reviewed findings thus far. Very stressed, but otherwise no sx. Family history reviewed. genetics negative. Reviewed case in detail with Dr Bae breast surgery. Bone scan and CT scans concerning for bone metastases. Discussed with IR, they are too small to biopsy. Trial of AI then undertaken. Anastrozole started February 2023. She feels well, we reviewed follow up scans wherein bone lesion show regression and healing. Also breast mass and axillary nodes smaller. Unfortunately this very much suggests bone lesions are metastatic deposits of breast cancer. We discussed that this shows stage IV disease. Dr Bae agrees, surgery not pursued. Started ibrance July 2023. Doing ok, no complaints Reviewed bone scan from 12-19-23, shows stable findings. CLINICAL IMPRESSION: [id number], stage IV Bone lesions on scans suspicious for mets, but too small to biopsy. Response to AI suggests metastatic disease. RECOMMENDATION/PLAN: 1. Continue anastrozole ibrance, zometa. Plan zometa every 3 months. 2. Left breast US, assess primary tumor and axillary LN response to treatment. Written and verbal health teaching given to [...] PFRMD 05/18/2013 CRYO CAUTERY CERVIX 1987 EXCISION CHRIS'S NEUROMA, SINGLE, EACH 1995 R foot NEUROPLASTY [...] half-aunt No Ocular Disease No Family History Social History Tobacco Use Smoking status: Former Current packs/day: 0.00 Types: Cigarettes Quit date: 04/11/1993 Years since quittin.7 Smokeless tobacco: Never Vaping Use Vaping status: Never Used Substance Use Topics Alcohol use: Yes Comment: Rarely Drug use: No ALLERGIES: ALLERGIES Allergen Reactions Apple Hives, Anaphylaxis Banana Hives, Anaphylaxis Carrot Hives, Anaphylaxis Pineapple Itching, Anaphylaxis Shellfish Derived Swelling, Anaphylaxis Food allergies--lip and tongue swelling (Dr. Wadsworth diagnosed and prescribes EpiPen) Shrimp and lobster the worst Amoxicillin Other: See Comments Yeast infection CURRENT OUTPATIENT MEDICATIONS: gabapentin (NEURONTIN) 100 mg capsule Take 1 capsule by mouth two times a day as needed for up to 180 days. In addition to taking 600 mg pill at bedtime gabapentin (NEURONTIN) 600 mg tablet Take 1 tablet by mouth daily at bedtime for 180 days. As directed prochlorperazine (COMPAZINE) 10 mg tablet Take 1 tablet by mouth every 6 hours as needed. palbociclib (IBRANCE) 125 mg tablet Take 1 tablet (125 mg) by mouth once daily. Take for 21 days on, followed by 7 days off. Take with or without food. hydroCHLOROthiazide 12.5 mg capsule Take 1 capsule by mouth once daily. As directed citalopram (CELEXA) 40 mg tablet Take 1 tablet by mouth once daily. losartan (COZAAR) 25 mg tablet Take 1 tablet by mouth once daily. pantoprazole DR (PROTONIX) 40 mg tablet Take 1 tablet by mouth daily before breakfast. Take on empty stomach, 1/2 hr before meal. fluticasone (FLONASE) 50 mcg/actuation nasal spray Use 2 Sprays in each nostril once daily. as needed. Rinse mouth after use. meclizine (ANTIVERT) 25 mg tab Take 1 tablet by mouth every 6 hours as needed (dizziness). atorvastatin (LIPITOR) 40 mg tablet Take 1 tablet by mouth daily at bedtime. anastrozole (ARIMIDEX) 1 mg tablet Take 1 tablet by mouth once daily. montelukast (SINGULAIR) 10 mg tablet Take 1 tablet by mouth daily at bedtime. isosorbide mononitrate ER (IMDUR) 60 mg 24 hr tablet Take 60 mg by mouth once daily. SYMBICORT 160-4.5 mcg/actuation inhaler as needed. amLODIPine (NORVASC) 2.5 mg tablet Take 2.5 mg by mouth once daily. azelastine 0.1% nasal spray Use 2 Sprays in each nostril as needed. cholecalciferol, vitamin D3, (VITAMIN D3 ORAL) Take [...] Take 81 mg by mouth once daily. (Patient not taking: Reported on 03/30/2023) REVIEW OF SYSTEMS: GENERAL: No fever, night sweats, weight loss or malaise. All other reviewed and negative other than HPI. PHYSICAL EXAMINATION: VITAL SIGNS: BP 137/74 Pulse 61 Temp (Src) 97.7 (Temporal) Wt 239 lb 8 oz (108.6kg) SpO2 98% LMP 07/15/2010 GENERAL APPEARANCE: Well appearing, in no acute distress, alert and oriented x3, well-hydrated, well nourished. I spent a total of 30 minutes on the date of the service which included preparing to see the patient, [id number] patient care, completing clinical documentation, obtaining and/or reviewing separately obtained history, counseling and educating the patient/family/caregiver, independently interpretin g results (not separately reported), and communicating results to the patient/family/caregiver. Also reviewed NCCN and CCF guidelines re use of neoadjuvant chemotherapy in breast cancer. Electronically Signed: Heriberto Disla MD December 23, 2023 documented in this encounterMer[facility]09-[facility] History of Present illness Narrative* Mary Macias RN - 12/16/2023 9:44 AM EDT [facility] Review Provider Action / FYI: H@H number given to patient Upon review of patient chart, does patient meet exclusion criteria? Yes (select one of the following and end template) Active Cancer Treatment * Mary Macias RN - 12/15/2023 2:19 PM EDT [facility] Review Provider Action / FYI: LMOM, will attempt call again tomorrow. documented in this encounterMercy Health [facility]08-29-2024 Telephone encounter Note * Telephone Encounter - Eve Kim - 12/08/2023 8:29 AM EDT Lab rescheduled as requested. [facility] Work Phone: 1(685) 439-735708-29-2024 Miscellaneous Notes* Telephone Encounter - Eve Kim - 12/08/2023 8:29 AM EDT Lab rescheduled as requested. * Telephone Encounter - Dominga Osullivan RN - 12/07/2023 5:06 PM EDT PSS: please move lab 12/23/23 to 12/20/23 at 130pm. Leave all other appointments. Patient aware of change,no need to call. Isela Osullivan RN * Telephone Encounter - Dominga Osullivan RN - 12/07/2023 5:01 PM EDT Call to patient, aware of lab results and ok to continue taking Ibrance. Day 21 of this cycle is 12/14/23. Next cycle to start 12/22/23. We will move lab from 12/23/23 to 12/20/23. She is agreeable with this plan. Isela Osullivan RN * Telephone Encounter - Dominga Osullivan RN - 12/07/2023 11:[address] Disla reviewed labs, ok to continue cycle. Needs labs off week. Isela Osullivan RN Attempted to call patient, spouse states she is not home and to call back around 2pm. Isela Osullivan RN * Telephone Encounter - Nano Case LPN - 12/02/2023 11:49 AM EDT Concerning pts. Ibrance, she has taken 9 tablets out of the 21 . Instructed to go ahead and get labs next week as scheduled 12/05 after labs we will contact her . Continue her ibrance until she hears from our office. Informed she really needs to have the labs done on her off week, we are going to instruct her next week after labs done, to get her back on track. Pt. Voiced understanding. Nano Case LPN documented in this encounterMercy Health [facility]08-28-2024 Telephone encounter Note * Telephone Encounter - Dominga Osullivan RN - 12/07/2023 5:06 PM EDT PSS: please move lab 12/23/23 to 12/20/23 at 130pm. Leave all other appointments. Patient aware of change,no need to call. Isela Osullivan RN [facility] Work Phone: 1(159) 537-311408-28-2024 Telephone encounter Note* Telephone Encounter - Dominga Osullivan RN - 12/07/2023 5:01 PM EDT Call to patient, aware of lab results and ok to continue taking Ibrance. Day 21 of this cycle is 12/14/23. Next cycle to start 12/22/23. We will move lab from 12/23/23 to 12/20/23. She is agreeable with this plan. Isela Osullivan RN [facility]08-28-2024 Telephone encounter Note* Telephone Encounter - Dominga Osullivan RN - 12/07/2023 11:[address] Disla reviewed labs, ok to continue cycle. Needs labs off week. Isela Osullivan RN Attempted to call patient, spouse states she is not home and to call back around 2pm. Isela Osullivan RN [facility]08-23-2024 Telephone encounter Note* Telephone Encounter - Anny Deras RN - 12/02/2023 2:29 PM EDT Patient phoned to check on covid results. Given negative results. [facility]08-23-2024 Miscellaneous Notes* Telephone Encounter - Anny Deras RN - 12/02/2023 2:29 PM EDT Patient phoned to check on covid results. Given negative results. documented in this encounterMercy Health [facility]08-23-2024 Telephone encounter Note * Telephone Encounter - Nano Case LPN - 12/02/2023 11:49 AM EDT Concerning pts. Ibrance, she has taken 9 tablets out of the 21 . Instructed to go ahead and get labs next week as scheduled 12/05 after labs we will contact her . Continue her ibrance until she hears from our office. Informed she really needs to have the labs done on her off week, we are going to instruct her next week after labs done, to get her back on track. Pt. Voiced understanding. Nano Case LPN [facility]08-19-[facility] History of Present illness Narrative* Sowmya Beard PA-C - 11/28/2023 3:18 PM EDT Sowmya Beard PA-C Department of Orthopaedics Orthopaedics [address] [facility] [address] Dept: [phone] Dept November 28, 2023 CHIEF COMPLAINT: Established Patient and Follow Up of the Right Hip Ms. Darling Florez is a 68 year old female who presents with continued pain in her right hip. Pain is a 9 out of 10 stabbing, throbbing in the right buttock, groin and anterior thigh to the knee. Shehas difficulty getting in and out of her car and also climbing stairs. The patient had a right hip injection in [facility] 11 months ago. The injection was very helpful for the first day, she admits that she went home and was hanging shelves. She is not sure how much overall relief she got with the cortisone injection. Unfortunately she is unable to tolerate oral NSAIDs. She is receiving chemotherapy for metastatic breast cancer. ASSESSMENT: M16.11 Primary osteoarthritis of right hip (primary encounter diagnosis) M25.551 Pain of right hip PLAN: We discussed trying potentially 1 more corticosteroid injection for her hip. I asked her to try to pay more attention to any improvement in her hip pain following the injection. Suggested maybenot being overly active the same day as the injection. She is not a great candidate for hip replacement as she is receiving chemotherapy for her metastatic breast cancer. If she continues to have pain may consider having her talk with her PCP or seeing pain management to discuss additional pain control options. Ms. Darling Florez was advised as to contrast therapies and/or to take analgesics/anti-inflammatories as needed and all contraindications were reviewed. OBJECTIVE: Ms. Darling Floerz is a pleasant 68 year old in no apparent distress. Gen:LMP 07/15/2010 nl development, obese, no deformities ENT: Normocephalic, normal hearing, moist mucosa CV: Pulses:DP/PT= 2+ and symmetric, capillary refill < 2 secs, no peripheral edema/varicosities Skin: no rash, bruising or lesions. Good turgor. Psych: cooperative and appropriate, alert and oriented x 3, good mood and affect. Musculoskeletal: Difficult exam, patient is diffusely tender to palpation over the right hip, passive range of motion is uncomfortable, patient resists. Imaging: IMPRESSION: Moderate right hip osteoarthritis without acute osseous findings. No significant change. Border Measurer: YESY Transcribe Date/Time: Nov 04 2022 3:52P [...] Degenerative changes in the lower lumbar spine. Supporting Subjective Information Below: Past Surgical History: PAST SURGICAL HISTORY No date: APPENDECTOMY ~1999: BREAST BIOPSY Comment: R breast 05/26/2010: BX BREAST PERC NEED W/GUID Comment: U/S needle core UOQ right breast 02/22/2023: BX OF BREAST; INCISIONAL Comment: left axilla [facility] 04/01/2023: BX OF BREAST; INCISIONAL; Left Comment: coil clip 04/01/2023: BX OF BREAST; INCISIONAL; Left Comment: clear clip 05/18/2013: COLONOSCOPY FLX DX W/COLLJ SPEC WHEN PFRMD 1988: CRYO CAUTERY CERVIX 1996: EXCISION CHRIS'S NEUROMA, SINGLE, EACH Comment: R foot 1998: NEUROPLASTY &/TRANSPOS MEDIAN NRV CARPAL TUNNE; Right Comment: Carpal tunnel decomp No date: TUBAL LIGATION, Medications: Current Outpatient Medications Medication Sig gabapentin (NEURONTIN) 100 mg capsule Take 1 capsule by mouth two times a day as needed for up to 180 days. In addition to taking 600 mg pill at bedtime gabapentin (NEURONTIN) 600 mg tablet Take 1 tablet by mouth daily at bedtime for 180 days. As directed prochlorperazine (COMPAZINE) 10 mg tablet Take 1 tablet by mouth every 6 hours as needed. palbociclib (IBRANCE) 125 mg tablet Take 1 tablet (125 mg) by mouth once daily. Take for 21 days on, followed by 7 days off. Take with or without food. hydroCHLOROthiazide 12.5 mg capsule Take 1 capsule by mouth once daily. As directed citalopram (CELEXA) 40 mg tablet Take 1 tablet by mouth once daily. losartan (COZAAR) 25 mg tablet Take 1 tablet by mouth once daily. pantoprazole DR (PROTONIX) 40 mg tablet Take 1 tablet by mouth daily before breakfast. Take on empty stomach, 1/2 hr before meal. fluticasone (FLONASE) 50 mcg/actuation nasal spray Use 2 Sprays in each nostril once daily. as needed. Rinse mouth after use. meclizine (ANTIVERT) 25 mg tab Take 1 tablet by mouth every 6 hours as needed (dizziness). atorvastatin (LIPITOR) 40 mg tablet Take 1 tablet by mouth daily at bedtime. anastrozole (ARIMIDEX) 1 mg tablet Take 1 tablet by mouth once daily. montelukast (SINGULAIR) 10 mg tablet Take 1 tablet by mouth daily at bedtime. isosorbide mononitrate ER (IMDUR) 60 mg 24 hr tablet Take 60 mg by mouth once daily. SYMBICORT 160-4.5 mcg/actuation inhaler as needed. amLODIPine (NORVASC) 2.5 mg tablet Take 2.5 mg by mouth once daily. azelastine 0.1% nasal spray Use 2 Sprays in each nostril as needed. cholecalciferol, vitamin D3, (VITAMIN D3 ORAL) Take [...] Take 81 mg by mouth once daily. (Patient not taking: Reported on 03/30/2023) No current facility-administered medications for this visit. Allergies: Apple, Banana, Carrot, Pineapple, Shellfish Derived, and Amoxicillin ROS: General (negative for fatigue, malaise, weight loss/gain) HEENT (negative for headache, earache, recent vision changes, sinus pain, sore throat) Respiratory (no recent shortness of breath, hemoptysis) CV (negative for chest tightness, palpitations) Musculoskeletal (see HPI) Psych (no depression, anxiety) This note was partially generated using [employer] voice recognition system, and there may be some incorrect words, spellings, and punctuation that were not noted in checking the note before saving. Sowmya Beard PA-C * Ronit Ashley MA - 11/28/2023 3:03 PM EDT AMB ROOMING INTAKE FLOWSHEET DATA Pain Pain Level: 9 Pain Location: Hip-Right Description: Stabbing, Throbbing, Burning Duration Amount of Time: (ongoing) Frequency: Continuous Intervention/Comfort measure: Medication documented in this encounterCleveland [id number] Instructions* Patient Instructions* Ilya Monroe MD - 11/28/2023 11:16 AM EDT -We will alternate your appointments between myself and Adriana to ensure you are seen regularly. - We will conduct a Hemoglobin A1C test to monitor your average blood sugar levels; this will be added to your labs with Dr. Disla on the . Please inform the laboratory administrative director to include this test. - A lipid panel will be added to your labs in June with Adriana to monitor your cholesterol levels. - Continue using Flonase and Singulair for your sinus and allergy symptoms. - We will test for COVID, flu, and RSV due to your current symptoms and concerns about your immune system. If you test positive for COVID and wish to be treated with Paxlovid, please let us know. - I will write a letter for your parking placard renewal, valid for up to 10 years, due to your orthopedic issues and difficulty walking long distances. - Please schedule an appointment with ADELAIDA Streeter, for your knee pain. - Monitor your symptoms and contact us if you have any concerns or if your symptoms worsen. documented in this encounterMer[facility] History of Present illness Narrative* Ilya Monroe MD - 11/28/2023 10:55 AM EDT This note was created using [employer]. Subjective Darling Florez is a 68 year old female. Patient presents with: F/U 6 months SUBJECTIVE: Darling Florez is a 68 year old year old lady here today for 6 month follow up appointment for review of medical conditions. Patient is a 68-year-old female with a history of chronic knee pain, disc issues, sciatica, and fibromyalgia, presenting for follow-up. Patient has been alternating visits between the clinician and Adriana. She is currently taking atorvastatin for cholesterol management and gabapentin 100 mg BID PRN and 600 mg QHS for pain management. She reports that she takes gabapentin during the day when pain starts and an additional dose in the evening if pain persists. Patient expresses concern about her blood sugar levels and requests to be checked for diabetes. Shementions that her last blood work was done in May, and her glucose level was in the 120s afterhaving breakfast. She is interested in having a hemoglobin A1C test to monitor her average blood sugar levels. Patient also reports experiencing sinus congestion, a mild sore throat, and post-nasal drip, which started yesterday. She has been using Flonase and Singulair for allergy symptoms and has a history of using azelastine. She denies any known exposures to illness. She is concerned about the possibility of having COVID-19 due to her compromised immune system. Patient mentions that her blood pressure is managed by cardiology, and her current reading is in the 130s. She is on amlodipine and imdur for blood pressure management. She also requests a letter fora parking placard due to difficulty walking long distances, attributed to her hip and knee issues. PAST MEDICAL HISTORY 08/23/2022: Acute respiratory failure with hypoxia (HCC) No date: Asthmatic bronchitis No date: Bilateral sciatica No date: Biliary colic Comment: Gallbladder attack. No date: Cervical dysplasia Comment: age 31 No date: DDD (degenerative disc disease), lumbar No date: Fibrocystic breast No date: Fibromyalgia No date: HTN (hypertension) No date: Interstitial cystitis No date: Obesity (BMI 35.0-39.9 without comorbidity) No date: Seafood allergy, anaphylaxis Comment: Dr. Wadsworth Current Outpatient Medications Medication Sig palbociclib (IBRANCE) 125 mg tablet Take 1 tablet (125 mg) by mouth once daily. Take for 21 days on, followed by 7 days off. Take with or without food. hydroCHLOROthiazide 12.5 mg capsule Take 1 capsule by mouth once daily. As directed citalopram (CELEXA) 40 mg tablet Take 1 tablet by mouth once daily. gabapentin (NEURONTIN) 100 mg capsule Take 1 capsule by mouth two times a day as needed for up to 180 days. [...] on empty stomach, 1/2 hr before meal. fluticasone (FLONASE) 50 mcg/actuation nasal spray Use 2 Sprays in each nostril once daily. as needed. Rinse mouth after use. meclizine (ANTIVERT) 25 mg tab Take 1 tablet by mouth every 6 hours as needed (dizziness). atorvastatin (LIPITOR) 40 mg tablet Take 1 tablet by mouth daily at bedtime. anastrozole (ARIMIDEX) 1 mg tablet Take 1 tablet by mouth once daily. montelukast (SINGULAIR) 10 mg tablet Take 1 tablet by mouth daily at bedtime. isosorbide mononitrate ER (IMDUR) 60 mg 24 hr tablet Take 60 mg by mouth once daily. SYMBICORT 160-4.5 mcg/actuation inhaler as needed. amLODIPine (NORVASC) 2.5 mg tablet Take 2.5 mg by mouth once daily. azelastine 0.1% nasal spray Use 2 Sprays in each nostril as needed. cholecalciferol, vitamin D3, (VITAMIN D3 ORAL) Take 2,000 Units by mouth once daily. albuterol HFA (PROVENTIL HFA, VENTOLIN HFA) 90 mcg/actuation inhaler 2 puffs 4 times daily as needed. albuterol (PROVENTIL) 2.5 mg /3 mL (0.083 %) nebulizer solution Use 3 mL via nebulizer one time only for 1 dose. Use over 5-15minutes. EPINEPHrine (EPIPEN) 0.3 mg/0.3 mL (1:1,000) auto-injector (Dr. Wadsworth) HYDROcodone-acetaminophen (NORCO) 5-325 mg per tablet every 4 hours as needed. (Patient not taking:Reported on 11/28/2023) prochlorperazine (COMPAZINE) 10 mg tablet Take 1 tablet by mouth every 6 hours as needed. estradiol (ESTRACE) 0.01 % (0.1 mg/gram) vaginal cream Use 1 g vaginally two times a week. (Patientnot taking: Reported on 03/30/2023) metoprolol succinate ER (TOPROL XL) 50 mg 24 hr tablet Take 12.5 mg by mouth once daily. (Patient not taking: Reported on 11/07/2023) aspirin 81 mg chewable tablet Take 81 mg by mouth once daily. (Patient not taking: Reported on 03/30/2023) No current facility-administered medications for this visit. Review of Systems Objective BP 136/82 Pulse 74 Temp 36.8 C (98.3 F) Resp 16 Wt 108.8 kg (239 lb 13.8 oz) LMP 07/15/2010 SpO2 98% BMI 35.12 kg/m Last 5 Encounter Wt Readings: Date: Wt: 11/28/2023 108.8 kg (239 lb 13.8 oz) 10/26/2023 110.9 kg (244 lb 8 oz) 09/13/2023 109.8 kg (242 lb) 07/05/2023 111.4 kg (245 lb 8 oz) 06/08/2023 111.1 kg (245 lb) No waist measurement recorded Estimated body mass index is 35.12 kg/m as calculated from the following: Height as of 06/08/23: 176 cm (5' 9.29). Weight as of this encounter: 108.8 kg (239 lb 13.8 oz). Last 5 Encounter BP Readings: Date: BP: 11/28/2023 136/82 11/23/2023 129/77 10/26/2023 129/74 09/13/2023 138/83 07/05/2023 144/75 Physical Exam Constitutional: Appearance: Normal appearance. HENT: Head: Normocephalic. Comments: Mild sinus tenderness Right Ear: Tympanic membrane and ear canal normal. Left Ear: Tympanic membrane and ear canal normal. Mouth/Throat: Mouth: Mucous membranes are moist. Tongue: No lesions. Pharynx: No pharyngeal swelling, oropharyngeal exudate, posterior oropharyngeal erythema or uvula swelling. Eyes: Conjunctiva/sclera: Conjunctivae normal. Cardiovascular: Rate and Rhythm: Normal rate and regular rhythm. Heart sounds: Normal heart sounds. Pulmonary: Effort: Pulmonary effort is normal. Breath sounds: Normal breath sounds. Musculoskeletal: Right lower leg: No edema. Left lower leg: No edema. Skin: General: Skin is warm and dry. Neurological: General: No focal deficit present. Mental Status: She is alert and oriented to person, place, and time. Psychiatric: Mood and Affect: Mood normal. Behavior: Behavior normal. Thought Content: Thought content normal. Judgment: Judgment normal. Prior labs reviewed Assessment and Plan DDD (degenerative disc disease), lumbar: - Chronic condition, stable. - Continue current regimen of gabapentin 100 mg twice daily as needed for pain, and 600 mg at bedtime. - Refill gabapentin 100 mg with 60 tablets and 5 refills, and gabapentin 600 mg with 30 tablets and5 refills. - Patient advised to monitor for any changes in symptoms and report if pain worsens. Bilateral sciatica: - Chronic condition, stable. - Continue current regimen of gabapentin as detailed above. - Patient advised to monitor for any changes in symptoms and report if pain worsens. Fibromyalgia: - Chronic condition, stable. - Continue current regimen of gabapentin as detailed above. - Patient advised to monitor for any changes in symptoms and report if pain worsens. Elevated glucose: - Previous blood glucose level was 120s postprandial. - Ordered hemoglobin A1C to assess average blood glucose levels. - Patient instructed to have hemoglobin A1C drawn during next lab appointment on the . - Educated patient on the importance of monitoring blood glucose levels and maintaining a balanced diet. Mixed hyperlipidemia: - Chronic condition, stable. - Continue atorvastatin (Lipitor) as prescribed. - Last lipid panel in May showed triglycerides <150, HDL in the 40s, and LDL at 57. - Ordered lipid panel to be drawn during next lab appointment in June. - Patient advised to maintain current diet and exercise regimen. Sinus congestion: - Symptoms include stuffy nose, mild sore throat, and postnasal drip. - Physical exam: No erythema or bulging in ears, no pus in throat, mild tenderness in sinuses. - Differential diagnosis includes allergies and viral upper respiratory infection. - Continue Flonase (fluticasone) nasal spray, 1-2 puffs daily. - Continue Singulair (montelukast) for allergy and asthma management. - Ordered COVID-19, influenza, and RSV swab to rule out viral infections. - Patient educated on supportive care measures and advised to monitor symptoms. Sore throat: - Mild, no erythema or pus noted on physical exam. - Likely related to sinus congestion and postnasal drip. - Continue supportive care with Flonase and Singulair. - Ordered COVID-19, influenza, and RSV swab to rule out viral infections. - Patient educated on supportive care measures and advised to monitor symptoms. Postnasal drip: - Symptoms include stuffy nose and mild sore throat. - Continue Flonase (fluticasone) nasal spray, 1-2 puffs daily. - Continue Singulair (montelukast) for allergy and asthma management. - Ordered COVID-19, influenza, and RSV swab to rule out viral infections. - Patient educated on supportive care measures and advised to monitor symptoms. Ilya Monroe MD documented in this encounterMer[facility]07-29-[facility] History of Present illness Narrative* Madina Scott, OD - 11/07/2023 1:48 PM EDT 1. Combined forms of age-related cataract of right eye Stable- continue to monitor 2. Pseudophakia Doing well- continue to monitor Finalized spec rx 3. Asteroid hyalosis of right eye Stable 4. Vitreous floaters of left eye Stable- call with any new flashes/floatoers 5. Dry eye, both eyes Recommended Systane 2-3x daily Patient recently started Ibrance and Arimidex for metastatic breast cancer Follow-up in 1 year for complete eye exam Madina Soctt, AARON November 07, 2023 1:48 PM documented in this encounterMer[facility]07-29-[facility]24 Telephone encounter Note * Telephone Encounter - Kiersten Sellers - 11/07/2023 10:44 AM EDT 1st time treatment report, non -oncology regimen. No savings program to support (zoledronic acid) Zometa drug. No estimate needed. No further assistance from FN at this time. [facility] Miscellaneous Notes* Telephone Encounter - Kiersten Sellers - 11/07/2023 10:44 AM EDT 1st time treatment report, non -oncology regimen. No savings program to support (zoledronic acid) Zometa drug. No estimate needed. No further assistance from FN at this time. documented in this encounterMer[facility]07-19-2024 Telephone encounter Note * Telephone Encounter - Eve Kim - 10/28/2023 8:38 AM EDT Scheduled [facility] Work Phone: 1(978) 968-639007-19-2024 Miscellaneous Notes* Telephone Encounter - Eve Kim - 10/28/2023 8:38 AM EDT Scheduled * Telephone Encounter - Dominga Osullivan RN - 10/27/2023 2:26 PM EDT Another day that week is fine. Isela Osullivan RN * Telephone Encounter - Eve Kim - 10/27/2023 1:40 PM EDT 12/[address] Disla shows day . * Telephone Encounter - Nicole Calero - 10/26/2023 4:22 PM EDT Check out comments: Thoracic spine films today please Office visit with me 9-11 please documented in this encounterMer[facility]07-18-2024 Telephone encounter Note * Telephone Encounter - Dominga Osullivan RN - 10/27/2023 2:26 PM EDT Another day that week is fine. Isela Osullivan RN [facility] Work Phone: [phone]) 636-974007-18-2024 Telephone encounter Note* Telephone Encounter - Eve Kim - 10/27/2023 1:40 PM EDT 12/[address] Disla shows . [facility] Telephone encounter Note* Telephone Encounter - Nicole Calero - 10/26/2023 4:22 PM EDT Check out comments: Thoracic spine films today please Office visit with me 12-20 please [facility] History of Present illness Narrative* Glenda Mc RN - 10/26/2023 3:01 PM EDT Ov prior to tx. Glenda Mc RN documented in this encounterMercy [facility]07-17-2024 History of Present illness Narrative* Eve Morillo RT(R) - 10/26/2023 3:00 PM EDT Radiology Service Progress Note PATIENT NAME: Darling Florez DATE OF SERVICE: October 26, 2023 TIME: 3:15 PM PATIENT IDENTITY VERIFICATION COMPLETED USING TWO (2) IDENTIFIERS: Name and Date of confirmedby patient verbally. FALL SCREENING: Has the patient had 2 falls in the last year or 1 fall with injury or currently using an Ambulatory Assistive Device (Walker, Cane, Wheelchair, Crutches, etc.)? No PATIENT GENDER DATA: Female. status: : No status: NO. PATIENT RELEVANT IMPLANT DATA REVIEWED: Not Applicable PATIENT PRESENTS WITH AN IMPLANTABLE OR ATTACHED IDENTIFICATION TECHNICIAN: No RADIOLOGY DEPARTMENT: General X-ray: Exam(s) Completed: Spine X-Ray(s): Thoracic PERIPHERAL IV DATA: Not applicable SIGNED BY: RT Santiago(R) October 26, 2023 3:15 PM documented in this encounterMercy [facility]07-17-2024 History of Present illness Narrative* Heriberto Disla MD - 10/26/2023 1:35 PM EDT (Elements copied from my note dated September 13, 2023, have been reviewed and updated where appropriate,and all reflect current assessment and medical decision making from today's encounter, October 26, 2023) HISTORY OF PRESENT ILLNESS: Darling Florez is a 67 year old female with abnormal mammogram in December, work up shows several axillary LN, biopsy shows carcinoma c/w breast primary, ER+/SD+/Her2 0. Here to establish medical oncoogy care. Reviewed findings thus far. Very stressed, but otherwise no sx. Family history reviewed. Here for follow up.genetics negative. Anastrozole started February 2023. She feels well, we reviewed follow up scans wherein bone lesion show regression and healing. Also breast mass and axillary nodes smaller. Unfortunately this very much suggests bone lesions are metastatic deposits of breast cancer. We discussed that this shows stage IV disease. Here for follow up, started ibrance July 2023. Doing ok, having some dizziness comes and goes, doing ok. No pain. CLINICAL IMPRESSION: [id number] Bone lesions on scans suspicious for mets, but too small to biopsy. Response to AI suggests metastatic disease. RECOMMENDATION/PLAN: 1. Continue anastrozole ibrance, zometa. Will see back after bone scan in December 2023. T spine films for spine tenderness. Written and verbal health teaching given to [...] PFRMD 05/18/2013 CRYO CAUTERY CERVIX 1987 EXCISION CHRIS'S NEUROMA, SINGLE, EACH 1995 R foot NEUROPLASTY [...] half-aunt No Ocular Disease No Family History Social History Tobacco Use Smoking status: Former Types: Cigarettes Quit date: 04/11/1993 Years since quittin.5 Smokeless tobacco: Never Vaping Use Vaping Use: [...] See Comments Yeast infection CURRENT OUTPATIENT MEDICATIONS: palbociclib (IBRANCE) 125 mg tablet Take 1 tablet (125 mg) by mouth once daily. Take for 21 days on, followed by 7 days off. Take with or without food. hydroCHLOROthiazide 12.5 mg capsule Take 1 capsule by mouth once daily. As directed citalopram (CELEXA) 40 mg tablet Take 1 tablet by mouth once daily. gabapentin (NEURONTIN) 100 mg capsule Take 1 capsule by mouth two times a day as needed for up to 180 days. [...] on empty stomach, 1/2 hr before meal. fluticasone (FLONASE) 50 mcg/actuation nasal spray Use 2 Sprays in each nostril once daily. as needed. Rinse mouth after use. meclizine (ANTIVERT) 25 mg tab Take 1 tablet by mouth every 6 hours as needed (dizziness). atorvastatin (LIPITOR) 40 mg tablet Take 1 tablet by mouth daily at bedtime. anastrozole (ARIMIDEX) 1 mg tablet Take 1 tablet by mouth once daily. montelukast (SINGULAIR) 10 mg tablet Take 1 tablet by mouth daily at bedtime. isosorbide mononitrate ER (IMDUR) 60 mg 24 hr tablet Take 60 mg by mouth once daily. SYMBICORT 160-4.5 mcg/actuation inhaler as needed. amLODIPine (NORVASC) 2.5 mg tablet Take 2.5 mg by mouth once daily. azelastine 0.1% nasal spray Use 2 Sprays in each nostril as needed. cholecalciferol, vitamin D3, (VITAMIN D3 ORAL) Take 2,000 Units by mouth once daily. albuterol HFA (PROVENTIL HFA, VENTOLIN HFA) 90 mcg/actuation inhaler 2 puffs 4 times daily as needed. albuterol (PROVENTIL) 2.5 mg /3 mL (0.083 %) nebulizer solution Use 3 mL via nebulizer one time only for 1 dose. Use over 5-15minutes. EPINEPHrine (EPIPEN) 0.3 mg/0.3 mL (1:1,000) auto-injector (Dr. Wadsworth) benzocaine-menthol (CEPACOL) 15-3.6 mg lozg Use 1 Lozenge as instructed every 2 hours as needed. for sore throat (Patient not taking: Reported on 06/08/2023) estradiol (ESTRACE) 0.01 % (0.1 mg/gram) vaginal cream Use 1 g vaginally two times a week. (Patientnot taking: Reported on 03/30/2023) metoprolol succinate ER (TOPROL XL) 50 mg 24 hr tablet Take 12.5 mg by mouth once daily. (Patient not taking: Reported on 08/23/2022) loratadine (CLARITIN) 10 mg tablet Take 1 tablet by mouth once daily. (Patient not taking: Reportedon 09/13/2023) aspirin 81 mg chewable tablet Take 81 mg by mouth once daily. (Patient not taking: Reported on 03/30/2023) REVIEW OF SYSTEMS: GENERAL: No fever, night sweats, weight loss or malaise. All other reviewed and negative other than HPI. PHYSICAL EXAMINATION: VITAL SIGNS: BP 129/74 Pulse 60 Temp (Src) 97.6 (Temporal) Wt 244 lb 8 oz (110.9kg) SpO2 100% LMP 07/15/2010 GENERAL APPEARANCE: Well appearing, in no acute distress, alert and oriented x3, well-hydrated, well nourished. SPINE: Sl tender low thoracic I spent a total of 30 minutes on the date of the service which included preparing to see the patient, [id number] patient care, completing clinical documentation, obtaining and/or reviewing separately obtained history, counseling and educating the patient/family/caregiver, independently interpretin g results (not separately reported), and communicating results to the patient/family/caregiver. Also reviewed NCCN and [facility] guidelines re use of neoadjuvant chemotherapy in breast cancer. Electronically Signed: Heriberto Disla MD October 26, 2023 documented in this encounterMer[facility]06-04-[facility]24 History of Present illness Narrative* Heriberto Disla MD - 09/13/2023 12:18 PM EDT (Elements copied from my note dated July 05, 2023, have been reviewed and updated where appropriate, and all reflect current assessment and medical decision making from today's encounter, September 13, 2023) HISTORY OF PRESENT ILLNESS: Darling Florez is a 67 year old female with abnormal mammogram in December, work up shows several axillary LN, biopsy shows carcinoma c/w breast primary, ER+/SD+/Her2 0. Here to establish medical oncoogy care. Reviewed findings thus far. Very stressed, but otherwise no sx. Family history reviewed. Here for follow up.genetics negative. Anastrozole started at time of diagnosis,continues. She feels well, we reviewed follow up scans wherein bone lesion show regression and healing. Also breast mass and axillary nodes smaller. Unfortunately this very much suggests bone lesions are metastatic deposits of breast cancer. We discussed that this shows stage IV disease. Here for follow up, started ibrance July 2023. Doing ok, having some dizziness comes and goes, doing ok. No pain. CLINICAL IMPRESSION: [id number] Bone lesions on scans suspicious for mets, but too small to biopsy. Response to AI suggests metastatic disease. RECOMMENDATION/PLAN: 1. Continue anastrozole ibrance, zometa next time (she is edentulous). Will see back 6 weeks, update bone scan in December. Written and verbal health teaching given to [...] PFRMD 05/18/2013 CRYO CAUTERY CERVIX 1987 EXCISION CHRIS'S NEUROMA, SINGLE, EACH 1995 R foot NEUROPLASTY [...] half-aunt No Ocular Disease No Family History Social History Tobacco Use Smoking status: Former Types: Cigarettes Quit date: 04/11/1993 Years since quittin.4 Smokeless tobacco: Never Vaping Use Vaping Use: [...] See Comments Yeast infection CURRENT OUTPATIENT MEDICATIONS: palbociclib (IBRANCE) 125 mg tablet Take 1 tablet (125 mg) by mouth once daily. Take for 21 days on, followed by 7 days off. Take with or without food. hydroCHLOROthiazide 12.5 mg capsule Take 1 capsule by mouth once daily. As directed citalopram (CELEXA) 40 mg tablet Take 1 tablet by mouth once daily. gabapentin (NEURONTIN) 100 mg capsule Take 1 capsule by mouth two times a day as needed for up to 180 days. [...] on empty stomach, 1/2 hr before meal. fluticasone (FLONASE) 50 mcg/actuation nasal spray Use 2 Sprays in each nostril once daily. as needed. Rinse mouth after use. meclizine (ANTIVERT) 25 mg tab Take 1 tablet by mouth every 6 hours as needed (dizziness). atorvastatin (LIPITOR) 40 mg tablet Take 1 tablet by mouth daily at bedtime. anastrozole (ARIMIDEX) 1 mg tablet Take 1 tablet by mouth once daily. montelukast (SINGULAIR) 10 mg tablet Take 1 tablet by mouth daily at bedtime. isosorbide mononitrate ER (IMDUR) 60 mg 24 hr tablet Take 60 mg by mouth once daily. SYMBICORT 160-4.5 mcg/actuation inhaler as needed. amLODIPine (NORVASC) 2.5 mg tablet Take 2.5 mg by mouth once daily. azelastine 0.1% nasal spray Use 2 Sprays in each nostril as needed. cholecalciferol, vitamin D3, (VITAMIN D3 ORAL) Take 2,000 Units by mouth once daily. albuterol HFA (PROVENTIL HFA, VENTOLIN HFA) 90 mcg/actuation inhaler 2 puffs 4 times daily as needed. albuterol (PROVENTIL) 2.5 mg /3 mL (0.083 %) nebulizer solution Use 3 mL via nebulizer one time only for 1 dose. Use over 5-15minutes. EPINEPHrine (EPIPEN) 0.3 mg/0.3 mL (1:1,000) auto-injector (Dr. Wadsworth) benzocaine-menthol (CEPACOL) 15-3.6 mg lozg Use 1 Lozenge as instructed every 2 hours as needed. for sore throat (Patient not taking: Reported on 06/08/2023) estradiol (ESTRACE) 0.01 % (0.1 mg/gram) vaginal cream Use 1 g vaginally two times a week. (Patientnot taking: Reported on 03/30/2023) metoprolol succinate ER (TOPROL XL) 50 mg 24 hr tablet Take 12.5 mg by mouth once daily. (Patient not taking: Reported on 08/23/2022) loratadine (CLARITIN) 10 mg tablet Take 1 tablet by mouth once daily. (Patient not taking: Reportedon 09/13/2023) aspirin 81 mg chewable tablet Take 81 mg by mouth once daily. (Patient not taking: Reported on 03/30/2023) REVIEW OF SYSTEMS: GENERAL: No fever, night sweats, weight loss or malaise. All other reviewed and negative other than HPI. PHYSICAL EXAMINATION: VITAL SIGNS: BP 138/83 Pulse 70 Temp 97.3 Wt 242 lb (109.8kg) SpO2 97% LMP 07/15/2010 GENERAL APPEARANCE: Well appearing, in no acute distress, alert and oriented x3, well-hydrated, well nourished. I spent a total of 30 minutes on the date of the service which included preparing to see the patient, [id number] patient care, completing clinical documentation, obtaining and/or reviewing separately obtained history, counseling and educating the patient/family/caregiver, independently interpretin g results (not separately reported), and communicating results to the patient/family/caregiver. Also reviewed NCCN and [facility] guidelines re use of neoadjuvant chemotherapy in breast cancer. Electronically Signed: Heriberto Disla MD September 13, 2023 documented in this encounterMer[facility] Nurse Note* Nano Case LPN - 09/13/2023 12:09 PM EDT Est. Pt. 10 week F/U. Nano Case LPN [facility] Nurse Note* Nano Case LPN - 09/13/2023 12:09 PM EDT Est. Pt. 10 week F/U. Nano Case LPN documented in this encounterMer[facility]05-28-2024 Telephone encounter Note * Telephone Encounter - Jules Monique RN - 09/06/2023 9:55 AM EDT Summary: Nurse Navigation Navigation completed. Patient following medical oncology at [facility]. [facility] Miscellaneous Notes* Telephone Encounter - Jules Monique RN - 09/06/2023 9:55 AM EDTSummary: Nurse Navigation Navigation completed. Patient following medical oncology at [facility]. documented in this encounterMer[facility]05-24-2024 Telephone encounter Note * Telephone Encounter - Dominga Osullivan RN - 09/02/2023 4:29 PM EDT Call to patient for follow up after starting Ibrance. Left message that lab work is needed and thatthere are standing orders. Will try calling again at a later time. Isela Osullivan RN [facility] Work Phone: 1(519) 981-590605-24-2024 Miscellaneous Notes* Telephone Encounter - Dominga Osullivan RN - 09/02/2023 4:29 PM EDT Call to patient for follow up after starting Ibrance. Left message that lab work is needed and thatthere are standing orders. Will try calling again at a later time. Isela Osullivan RN documented in this encounterMer[facility]05-13-2024 Telephone encounter Note * Telephone Encounter - Betty Danile LPN - 08/22/2023 2:56 PM EDT Our records indicate that there is a current script at [facility]. 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 [facility] Miscellaneous Notes* Telephone Encounter - Betty Daniel LPN - 08/22/2023 2:56 PM EDT Our records indicate that there is a current script at [facility]. 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 * Telephone Encounter - Leilani Garcia - 08/22/2023 2:35 PM EDT Patient has been identified by name and date of : Yes, Patient phones for refill(s): Requested Prescriptions Pending Prescriptions Disp Refills hydroCHLOROthiazide 12.5 mg capsule 90 capsule 3 Sig: Take 1 capsule by mouth once daily. As directed Date of last office visit in primary care: 05/27/2023 Date of next office visit in primary care: 11/28/2023 Please advise. Thank you. Leilani Garcia. documented in this encounterMer[facility]05-13-2024 Telephone encounter Note * Telephone Encounter - Leilani Garcia - 08/22/2023 2:35 PM EDT Patient has been identified by name and date of : Yes, Patient phones for refill(s): Requested Prescriptions Pending Prescriptions Disp Refills hydroCHLOROthiazide 12.5 mg capsule 90 capsule 3 Sig: Take 1 capsule by mouth once daily. As directed Date of last office visit in primary care: 05/27/2023 Date of next office visit in primary care: 11/28/2023 Please advise. Thank you. Leilani Garcia. [facility] Telephone encounter Note* Telephone Encounter - Jules Monique RN - 08/22/2023 9:30 AM EDTSummary: Nurse Navigation Call placed to patient for navigation. Verified name and date of . Patient states she is doingwell. Denies any questions or concerns. Encouraged patient to call with questions or concerns. Jules Monique RN, BSN [facility]05-13-2024 Miscellaneous Notes* Telephone Encounter - Jules Monique RN - 08/22/2023 9:30 AM EDTSummary: Nurse Navigation Call placed to patient for navigation. Verified name and date of . Patient states she is doingwell. Denies any questions or concerns. Encouraged patient to call with questions or concerns. Jules Monique RN, BSN documented in this encounterMer[facility]05-03-2024 Telephone encounter Note * Telephone Encounter - Dominga Osullivan RN - 08/12/2023 3:41 PM EDT Call to patient, no answer. Call to , states she is not home at this time, not sure when shewill be home. Isela Osullivan RN [facility] Work Phone: 1(917) 836-245005-03-2024 Miscellaneous Notes* Telephone Encounter - Dominga Osullivan RN - 08/12/2023 3:41 PM EDT Call to patient, no answer. Call to , states she is not home at this time, not sure when shewill be home. Isela Osullivan RN * Telephone Encounter - Dominga Osullivan RN - 08/05/2023 2:54 PM EDT Call to patient, message left to call me back and phone/contact number provided. Dominga Osullivan RN * Telephone Encounter - Dominga Osullivan RN - 07/29/2023 11:17 AM EDT Call to patient, message left to call me back and phone/contact number provided. Dominga Osullivan RN documented in this encounterMer[facility]04-30-2024 Telephone encounter Note * Telephone Encounter - Jules Monique RN - 08/09/2023 11:38 AM EDT Summary: Nurse Navigation Call placed to patient for navigation. Verified name and date of . Patient states she is doingwell. Patient denies any questions or concerns. Encouraged patient to call with questions or concerns. Jules Monique RN, BSN [facility]04-30-2024 Miscellaneous Notes* Telephone Encounter - Jules Monique RN - 08/09/2023 11:38 AM EDTSummargene: Nurse Navigation Call placed to patient for navigation. Verified name and date of . Patient states she is doingwell. Patient denies any questions or concerns. Encouraged patient to call with questions or concerns. Jules Monique RN, BSN documented in this encounterMer[facility]04-26-2024 Telephone encounter Note * Telephone Encounter - Dominga Osullivan RN - 08/05/2023 2:54 PM EDT Call to patient, message left to call me back and phone/contact number provided. Dominga Osullivan RN [facility]04-[facility] Telephone encounter Note* Telephone Encounter - Dominga Osullivan RN - 07/29/2023 11:17 AM EDT Call to patient, message left to call me back and phone/contact number provided. Dominga Osullivan RN [facility]04-15-2024 Miscellaneous Notes* Telephone Encounter - Jules Monique RN - 07/25/2023 9:21 AM EDTSumgregg: Nurse Navigation Call placed to patient for navigation. Verified name and date of . Patient states she is doingwell. Patient denies any questions or concerns. Encouraged patient to call with questions or concerns. Jules Monique RN, BSN documented in this encounterMer[facility]04-10-2024 History of Present illness Narrative* Constance Edwards RN - 07/20/2023 2:59 PM EDT [facility] NURSE - CHART REVIEW Provider [facility] Action Chart review 12/14/22 [facility] ED [facility] with right hip pain which is chronic she is now developing right knee and right ankle pain. No injury. Pain is quite intense. She has an appointment with orthopedicsin 6 days. Xrays of Rt knee, ankle and hip with no acute findingd. Pt has degenerative joint disease. Pain med in ED offered improvement in symptoms. Given a walker as the cane she was using was not helpful. DC home with walker, Rx for pain med and ORTHO f/u. 01/15/23 [facility] ED for c/o dizziness, nauseous, shortness of breath and head and neck pain. Chest xray with no acute abnormality. CTA head/neck with contrast showed no occlusion or hemorrhage. Pt felt mildly improved after medicated with Zofran for nausea and Toradol for pain. Potassium slightly low at3.2 and supp orally. DC home and to use OTC meds and f/u with PCP. Pt identified by name and . Reason for Review: Payor request Patient Attributed To: SHAKIRAE Payer: JUSTIN Chart Review For: Utilization: ED Total Patient High CostTotal Patient High Cost {HIGH COST:365918) Quality measure review Payor request for assistance Action Taken: Data submitted to payor Constance Edwards RN July 20, 2023 2:59 PM documented in this encounterMer[facility]04-05-2024 Miscellaneous Notes* Telephone Encounter - Adriana Joya APRN.CNS - 07/15/2023 4:23 PM EDT letter complete and printed * Telephone Encounter - Birdie Delgado RN - 07/15/2023 1:55 PM EDT Pt called in and reports she lives in a 1 bedroom now and they are moving into a 2 bedroom apartment. She states due to her arthritis and fibromyalgia her pain can keep her up at night and she wants a second bedroom she can go into to sleep so she doesn't keep her Eduardo up all night. She states Eduardo is her rn intensive care unit and if he can't get any sleep then he can't take care of her. She also sta chapin a second bedroom would give her more room to get up and walk around in. * Telephone Encounter - Taylor Wiggins LPN - 07/15/2023 12:53 PM EDT Patient dropped off Reasonable Accommodation form to [employer] with the instructions for provider to write on two pieces of sticky notes why she needs reasonable accommodation and she is requesting this VIGNESH. Attempted to contact patient but no answer. Left message with to have her call office and ask to speak to a nurse for clarification. Need to know what the form is for. It appears they are asking for accommodation changes so need to know what is the change they are asking for and why exactly she is asking for the change. Patient wrote on the form due to breast cancer and another medicalconditions she often sleeps in another room. Need to know what conditions and why they prevent her from sleeping in same room. documented in this encounterMer[facility]04-02-2024 Miscellaneous Notes* Telephone Encounter - Jules Monique RN - 07/12/2023 12:07 PM EDT Summary: Nurse Navigation Call placed to patient for navigation. Patient did not answer, voicemail left identifying self and return number. Jules Monique RN, BSN documented in this encounterMer[facility]03-27-2024 History of Present illness Narrative* Braeden ([employer]person [employer]), Milli - 07/06/2023 10:31 AM EDT [facility](s[facility] for Ibrance from Dr. Disla's office. Benefits investigation was conducted, indicating that a prior authorization is required by patient's insurance plan with [employer]. Encounter will be updated once prior authorization has been submitted [facility]. documented in this encounterMercy [facility]03-26-2024 History of Present illness Narrative* Heriberto Disla MD - 07/05/2023 12:17 PM EDT (Elements copied from my note dated , have been reviewed and updated where appropriate, and all reflect current assessment and medical decision making from today's encounter, July 05, 2023) HISTORY OF PRESENT ILLNESS: Darling Florez is a 67 year old female with abnormal mammogram in December, work up shows several axillary LN, biopsy shows carcinoma c/w breast primary, ER+/SD+/Her2 0. Here to establish medical oncoogy care. Reviewed findings thus far. Very stressed, but otherwise no sx. Family history reviewed. Here for follow up.genetics negative. Anastrozole continues. She feels well, we reviewed follow up scans wherein bone lesion show regression and healing. Also breast mass and axillary nodes smaller. Unfortunately this very much suggests bone lesions are metastatic deposits of breast cancer. We discussed that this shows stage IV disease.. CLINICAL IMPRESSION: [id number] Bone lesions on scans suspicious for mets, but too small to biopsy. Response to AI suggests metastatic disease. RECOMMENDATION/PLAN: 1. Continue anastrozole, add ibrance now, zometa down the line. Written and verbal health teaching given to [...] PFRMD 05/18/2013 [facility] CAUTERY CERVIX 1987 EXCISION CHRIS'S NEUROMA, SINGLE, EACH 1995 R foot NEUROPLASTY [...] half-aunt No Ocular Disease No Family History Social History Tobacco Use Smoking status: Former Types: Cigarettes Quit date: 04/11/1993 Years since quittin.2 Smokeless tobacco: Never Vaping Use Vaping Use: [...] See Comments Yeast infection CURRENT OUTPATIENT MEDICATIONS: hydroCHLOROthiazide 12.5 mg capsule Take 1 capsule by mouth once daily. As directed citalopram (CELEXA) 40 mg tablet Take 1 tablet by mouth once daily. gabapentin (NEURONTIN) 100 mg capsule Take 1 capsule by mouth two times a day as needed for up to 180 days. [...] on empty stomach, 1/2 hr before meal. fluticasone (FLONASE) 50 mcg/actuation nasal spray Use 2 Sprays in each nostril once daily. as needed. Rinse mouth after use. meclizine (ANTIVERT) 25 mg tab Take 1 tablet by mouth every 6 hours as needed (dizziness). atorvastatin (LIPITOR) 40 mg tablet Take 1 tablet by mouth daily at bedtime. anastrozole (ARIMIDEX) 1 mg tablet Take 1 tablet by mouth once daily. montelukast (SINGULAIR) 10 mg tablet Take 1 tablet by mouth daily at bedtime. isosorbide mononitrate ER (IMDUR) 60 mg 24 hr tablet Take 60 mg by mouth once daily. SYMBICORT 160-4.5 mcg/actuation inhaler as needed. amLODIPine (NORVASC) 2.5 mg tablet Take 2.5 mg by mouth once daily. azelastine 0.1% nasal spray Use 2 Sprays in each nostril as needed. loratadine (CLARITIN) 10 mg tablet Take 1 [...] 0.3 mg/0.3 mL (1:1,000) auto-injector (Dr. Wadsworth) benzocaine-menthol (CEPACOL) 15-3.6 mg lozg Use 1 Lozenge as instructed every 2 hours as needed. for sore throat (Patient not taking: Reported on 06/08/2023) estradiol (ESTRACE) 0.01 % (0.1 mg/gram) vaginal cream Use 1 g vaginally two times a week. (Patientnot taking: Reported on 03/30/2023) metoprolol succinate ER (TOPROL XL) 50 mg 24 hr tablet Take 12.5 mg by mouth once daily. (Patient not taking: Reported on 08/23/2022) aspirin 81 mg chewable tablet Take 81 mg by mouth once daily. (Patient not taking: Reported on 03/30/2023) REVIEW OF SYSTEMS: GENERAL: No fever, night sweats, weight loss or malaise. All other reviewed and negative other than HPI. PHYSICAL EXAMINATION: VITAL SIGNS: BP 144/75 Pulse 65 Temp (Src) 97.8 (Temporal) Wt 245 lb 8 oz (111.4kg) SpO2 99% LMP 07/15/2010 GENERAL APPEARANCE: Well appearing, in no acute distress, alert and oriented x3, well-hydrated, well nourished. I spent a total of 30 minutes on the date of the service which included preparing to see the patient, [id number] patient care, completing clinical documentation, obtaining and/or reviewing separately obtained history, counseling and educating the patient/family/caregiver, independently interpretin g results (not separately reported), and communicating results to the patient/family/caregiver. Also reviewed [facility] and [facility] guidelines re use of neoadjuvant chemotherapy in breast cancer. Electronically Signed: Heriberto Disla MD July 05, 2023 documented in this encounterMercy [facility]03-18-2024 Miscellaneous Notes* Telephone Encounter - Jules Monique RN - 06/27/2023 10:44 AM EDT Summary: Nurse Navigation Call placed to patient for navigation. Verified name and date. Patient states she is doing well, denies any questions or concerns and is just waiting for medical oncology to call her. Encouraged patient to call with questions or concerns. Jules Monique RN, BSN documented in this encounterMercy [facility]03-15-2024 Miscellaneous Notes* Telephone Encounter - Taylor Wiggins LPN - 06/24/2023 12:25 PM EDT Patient notified of providers message and verbalize understanding. * Telephone Encounter - Taylor Wiggins LPN - 06/24/2023 12:23 PM EDT ----- Message from Adriana Joya APRN.WINDER HELPER sent at 06/24/2023 7:47 AM EDT ----- Please let her know that CBC CMP and lipid panel are in acceptable range. documented in this encounterMercy Health [facility]03-14-2024 History of Present illness Narrative* Josh Hurst RT(R) - 06/23/2023 9:20 AM EDT Radiology Service Progress Note PATIENT NAME: Darling Florez DATE OF SERVICE: June 23, 2023 TIME: 2:49 PM PATIENT IDENTITY VERIFICATION COMPLETED USING TWO (2) IDENTIFIERS: Name and Date of confirmedby patient verbally. FALL SCREENING: Has the patient had 2 falls in the last year or 1 fall with injury or currently using an Ambulatory Assistive Device (Walker, Cane, Wheelchair, Crutches, etc.)? No PATIENT GENDER DATA: Female. status: : No status: NO. PATIENT RELEVANT IMPLANT DATA REVIEWED: Yes PATIENT PRESENTS WITH AN IMPLANTABLE OR ATTACHED IDENTIFICATION TECHNICIAN: No RADIOLOGY DEPARTMENT: CT; Exam(s) Completed: Chest Abdomen Pelvis PERIPHERAL IV DATA: iv started in nuc med SIGNED BY: RT Rita(R) June 23, 2023 2:49 PM documented in this encounterMercy [facility]03-14-2024 History of Present illness Narrative* Kinsey Littlejohn RT(R) - 06/23/2023 7:30 AM EDT RADIOLOGY SERVICE PROGRESS NOTE SERVICE DATE: 06/23/2023 SERVICE TIME: 07:35 AM PATIENT IDENTITY VERIFICATION COMPLETED USING TWO (2) STANDARD IDENTIFIERS: Name and Date of confirmed by patient verbally FALL SCREENING: Has the patient had 2 falls in the last year or 1 fall with injury or currently using an Ambulatory Assistive Device (Walker, Cane, Wheelchair, Crutches, etc.)? No PATIENT GENDER DATA: .female : No ALLERGIES: Reviewed and updated MEDICATIONS REVIEWED: No PATIENT RELEVANT IMPLANT DATA REVIEWED: Not Applicable PATIENT PRESENTS WITH AN IMPLANTABLE OR ATTACHED IDENTIFICATION TECHNICIAN: No CREATININE: Creatinine Date Value Ref Range Status 06/23/2023 0.74 0.58 - 0.96 mg/dL Final 04/05/2023 0.79 0.58 - 0.96 mg/dL Final 05/27/2022 0.74 0.58 - 0.96 mg/dL Final Estimated Glomerular Filtration Rate Date Value Ref Range Status 06/23/2023 89 >=60 mL/min/1.73m Final Comment: Estimated Glomerular Filtration Rate (eGFR) is calculated using the 2020 CKD-EPI creatinine equation. This equation utilizes serum creatinine, sex, and age as parameters. The creatinine assay has traceable calibration to isotope dilution- mass spectrometry. Refer to KDIGO guidelines for clinical interpretation. In patients with unstable renal function, e.g. those with acute kidney injury, the eGFRmay not accurately reflect actual GFR. eGFR- Date Value Ref Range Status 01/29/2021 >60 Final P.O.C.T. RESULTS: N/A June 23, [address] PERFORMED: No IV SITE: Ambulatory: A peripheral IV was started in the Right antecubital site with a Angio cath: 22 gauge. POST EXAM PIV STATUS: Left in for next appointment PROCEDURE TYPE: NM INJECT: Whole Body Bone Scan. 21 mCi Tc99m MDP. No other medications given.. ADMINISTRATION TIME: 07:45 PATIENT DISCHARGED TO: Ambulatory patient, left DE department area. A Diagnostic radioactive procedure has taken place, with no further precautions necessary other than routine body substance precautions. More information regarding radiation safety can be found usingthis link: [email or web address] SIGNATURE: RT Miranda(Kemar) PATIENT NAME: Darling Florez DATE: June 23, 2023 TIME: 11:05 AM PAGER/CONTACT #: documented in this encounterMercy Health [facility]03-04-2024 Miscellaneous Notes* Telephone Encounter - Jules Monique RN - 06/13/2023 1:09 PM ESTSummary: Nurse Naigation Call placed to patient for navigation. Verified name and date of . Patient states she is doingwell, states she is ready for all of her appointments coming up. Denies any questions or concerns. Encouraged patient to call with questions or concerns. Jules Monique RN, BSN documented in this encounterMercy Health [facility]02-28-2024 History of Present illness Narrative* Heriberto Disla MD - 06/08/2023 1:55 PM EST (Elements copied from my note dated March 30, 2023, have been reviewed and updated where appropriate, and all reflect current assessment and medical decision making from today's encounter, June 08, 2023) HISTORY OF PRESENT ILLNESS: Darling Florez is a 67 year old female with abnormal mammogram in December, work up shows several axillary LN, biopsy shows carcinoma c/w breast primary, ER+/SD+/Her2 0. Here to establish medical oncoogy care. Reviewed findings thus far. Very stressed, but otherwise no sx. Family history reviewed. Here for follow up.genetics negative. Anastrozole continues. She feels well, notes some hot flashes. Reviewed findings thus far. CLINICAL IMPRESSION: cTxN1 MRI shows at least [address] Bone lesions on scans suspicious for mets, but too small to biopsy. RECOMMENDATION/PLAN: 1. Update scans. If bone lesions stable, but breast mass and LN improved will discuss with Dr Bae possible breast surgery. If bone lesions also show healing, will likely need to conclude they are metastatic in nature. We will re convene after scans Written and verbal health teaching given to [...] PFRMD 05/18/2013 CRYO CAUTERY CERVIX 1988 EXCISION CHRIS'S NEUROMA, SINGLE, EACH 1995 R foot NEUROPLASTY [...] half-aunt No Ocular Disease No Family History Social [...] See Comments Yeast infection CURRENT OUTPATIENT MEDICATIONS: hydroCHLOROthiazide 12.5 mg capsule Take 1 capsule by mouth once daily. As directed citalopram (CELEXA) 40 mg tablet Take 1 tablet by mouth once daily. gabapentin (NEURONTIN) 100 mg capsule Take 1 capsule by mouth two times a day as needed for up to 180 days. [...] on empty stomach, 1/2 hr before meal. fluticasone (FLONASE) 50 mcg/actuation nasal spray Use 2 Sprays in each nostril once daily. as needed. Rinse mouth after use. meclizine (ANTIVERT) 25 mg tab Take 1 tablet by mouth every 6 hours as needed (dizziness). atorvastatin (LIPITOR) 40 mg tablet Take 1 tablet by mouth daily at bedtime. anastrozole (ARIMIDEX) 1 mg tablet Take 1 tablet by mouth once daily. montelukast (SINGULAIR) 10 mg tablet Take 1 tablet by mouth daily at bedtime. isosorbide mononitrate ER (IMDUR) 60 mg 24 hr tablet Take 60 mg by mouth once daily. SYMBICORT 160-4.5 mcg/actuation inhaler as needed. amLODIPine (NORVASC) 2.5 mg tablet Take 2.5 mg by mouth once daily. azelastine 0.1% nasal spray Use 2 Sprays in each nostril as needed. loratadine (CLARITIN) 10 mg tablet Take 1 [...] 0.3 mg/0.3 mL (1:1,000) auto-injector (Dr. Wadsworth) benzocaine-menthol (CEPACOL) 15-3.6 mg lozg Use 1 Lozenge as instructed every 2 hours as needed. for sore throat (Patient not taking: Reported on 06/08/2023) estradiol (ESTRACE) 0.01 % (0.1 mg/gram) vaginal cream Use 1 g vaginally two times a week. (Patientnot taking: Reported on 03/30/2023) metoprolol succinate ER (TOPROL XL) 50 mg 24 hr tablet Take 12.5 mg by mouth once daily. (Patient not taking: Reported on 08/23/2022) aspirin 81 mg chewable tablet Take 81 mg by mouth once daily. (Patient not taking: Reported on 03/30/2023) REVIEW OF SYSTEMS: GENERAL: No fever, night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 Patient has some questions about her MRI. Answered patients questions. Encouraged patient to call with questions or concerns. Jules Monique RN, BSN Met with patient on 03/09/2023 for 10 minutes in person to introduce self. documented in this encounterMercy Health Clermont Hospital12-08-2023 Miscellaneous Notes* Telephone Encounter - Birdie Church RN - 03/18/2023 4:35 PM EST 3rd attempt to call patient again to notify her of results. answered. Informed him to have her call our office back. He states he will have her call back next week. * Telephone Encounter - Birdie Church RN - 02/28/2023 11:18 AM EST Attempted to call patient again to notify her of results. answered. Informed him to have her call our office back. * Telephone Encounter - Luh Richard LPN - 01/20/2023 1:24 PM EDT Called patient to provided providers results. No response. Left VM. Luh Richard LPN * Telephone Encounter - Javier Roman - 01/20/2023 12:00 PM EDT Please call patient to inform her that her circulation is normal Javier Roman DPM documented in this encounterMercy Health Clermont Hospital12-08-2023 Miscellaneous Notes* Telephone Encounter - Gregg Bae MD - 03/18/2023 8:50 AM EST Patient notified of breast MRI results. She [...] tab/:03/17/2023 14:13:32 Attending Technologist(s): Eve Malin, Mri [facility] Pencil Maker(s): RT Victor Hugo(R), Mri [facility] MRI BI-RADS: 4 Suspicious finding - Biopsy should be considered documented in this encounterMercy Health Clermont Hospital12-07-2023 History of Present illness Narrative* Eve Malin RT(R) - 03/17/2023 7:00 AM EST Radiology Service Progress Note DATE OF SERVICE: [...] DEPARTMENT: MR; Exam(s) Completed: Chest: Breast SIGNATURE: LISY AuKemar) PATIENT NAME: Darling Florez DATE: March 17, 2023 TIME: 7:07 AM documented in this encounterMercy Health Clermont Hospital12-07-2023 NoteHNO ID: [id number] Author: Eve Malin RT(R) Service: Radiology Author [...] MR; Exam(s) Completed: Chest: Breast SIGNATURE: RT Angely(Kemar) PATIENT NAME: Darling Florez DATE: March 17, 2023 TIME: 7:07 [facility] Miscellaneous Notes* Telephone Encounter - Brianna Padilla - 03/16/2023 10:23 AM EST 2ND ATTEMPT: LM * Telephone Encounter - Brianna Padilla - 03/13/2023 11:44 AM EST 1st attempt: LM * Telephone Encounter - Jami Sanchez RN - 03/09/2023 3:28 PM EST May schedule with Dr Griffin at pt convenience. Please schedule with Dr. Disla as well. Salome Newman LPN * Telephone Encounter - Christianoshon Nir Eve - 03/09/2023 2:44 PM EST Please review and advise. Patient to see Medical Oncology and Radiation. Please contact patient to schedule both on same day. 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 Author Type: Physician Type: Progress Notes Filed: 03/09/2023 3:29 PM Note Text: [place] [address] HPI: Darling Florez is a 67 year old Black female who presents for an evaluation of abnormal Left Breast Axillary Lymph Node Biopsy done on 02/22/23 showing metastasis of primary breast carcinoma to the axillary lymph node of the left breast. This was seen on the prior mammogram. Consultation requested by Dr. Fang for an opinion regarding further management and [...] (diagnosed at age 43). 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 susan (more content not included)...[facility]11-29-2023 History of Present illness Narrative* Gregg Bae MD - 03/09/2023 2:20 PM EST Images from the original note were not included. Gregg Bae MD [facility] [address] [place], [place] [id number] HPI: Darling Florez is a 67 year old Black female who presents for an evaluation of abnormal Left Breast Axillary Lymph Node Biopsy done on 02/22/23 showing metastasis of primary breast carcinoma to the axillary lymph node of the left breast. This was seen on the prior mammogram. Consultation requested by Dr. Fang for an opinion regarding further management and treatment of metastatic breast cancer. My final recommendations will be communicated back to the requesting physician by way of shared medical record or letter via US mail. Patient presents to the clinic after receiving abnormal L breast axillary lymph node biopsy. She isdoing well today. 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 No IV access, insert saline lock prior [...] cytokeratin CAM5.2, GATA3 and E-cadherin. ER and SD immunostains were performed with results in a [...] assessment. As discussed with the patient, Dr. Fang will give her the biopsy results. Patient [...] 147/84 Pulse 73 Ht 180.3 cm (5' 11) Wt 114.8 kg (253 lb) LMP 07/15/2010 [...] reviewed in detail. PATHOLOGY: Pathology reports from [facility] were reviewed and discussed with the Patient. Breast Biomarkers RESULTS: Estrogen Receptor (ER) Positive >90 % Stain intensity: strong Internal controls: absent External controls: appropriately stained Progesterone Receptor (SD) Positive >90 % Stain intensity: strong Internal controls: absent External controls: appropriately Breast Biomarkers (HER2 (ERBB2) by IHC) RESULTS: HER2 (ERBB2) IMMUNOHISTOCHEMISTRY ASSAY Interpretation: NEGATIVE for HER2 (ERBB2) Expression Score:0 Percentage of cells with uniform intense complete membrane staining: Not applicable (reported for 2+ and 3+ scores only) Specimen: [id number]; left axillary lymph node Block evaluated: A1 [...] see oncology and get imaging done in [place]. MRI is scheduled for 03/17. Return to [...] metastatic work-up. I have also referred her toradiation oncology. Due to family history of breast cancer, she was referred to genetic services. The patient has a good support system and she declined psychosocial services referral. The patient would like her medical and oncology consults scheduled in [place]. Gregg Bae MD This note was partially generated using [employer] voice recognition system, and there may be some incorrect words, spellings, and punctuation that were not noted in checking the note before saving. documented in this encounterMercy Health Clermont Hospital11-29-2023 Nurse Note* Maritza Richard LPN - 03/09/2023 1:15 PM EST Darilng Florez is a 67 year old female who presents to follow up for New Patient, post BX (Left axilla ), and Results (A. Lymph node, left axillary, biopsy:/- Metastatic carcinoma, consistent with breast primary) Pt denies breast pain, nipple drainage. Pt states the left breast near the areola area is wrinkled. Maritza Richard LPN documented in this [facility]11-20-2023 History of Present illness Narrative* Concetta Fang MD - 02/28/2023 2:30 PM EST Darling Florez 1955 REFERRING PHYSICIAN: Ilya Monroe MD CHIEF COMPLAINT: Follow Up (Left axilla stereotactic biopsy results) HPI: The patient is a 67 year old female presents with metastatic left lymph node breast cancer - unknown primary. 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 Thepatient is oriented to time, place, and person. VITALS: Blood pressure 170/62, pulse 75, temperature 36.4 C (97.5 F), height 180.3 cm (5' 11), weight 114.8 kg (253 lb), last menstrual [...] her, etc. I will refer patient to [facility] Breast surgeons. The patient acknowledges the [...] of any pertinent laboratory studies/radiological imaging/medical records, [id number] care, obtaining oral medical history from the patient in this encounter, counseling and educating the patient/family/caregiver, and ordering and/or scheduling of medications/tests/procedures,and completing appropriate medical documentation. Concetta Fang MD documented in this encounterMercy Health Clermont Hospital11-14-2023 History of Present illness Narrative* Argenis Baron RT(R) - 02/22/2023 1:00 PM EST Radiology Service Progress Note PATIENT NAME: Darling Florez DATE OF SERVICE: February 22, 2023 [...] RT Lindsay(Kemar) February 22, 2023 12:38 PM * Ronit Klein RT(Kemar) - 02/22/2023 1:00 PM EST Radiology Service Progress Note PATIENT NAME: Darling Florez DATE OF SERVICE: February 22, 2023 [...] PERIPHERAL IV DATA: Not applicable SIGNED BY: NADYA Hanks) February 22, 2023 1:40 PM documented in this encounterMercy Health Clermont Hospital11-14-2023 NoteHNO ID: [id number] Author: Ronit Klein RT(R) Service: ? Author Type: Technologist Type: Progress Notes Filed: 02/22/2023 1:51 PM Note Text: Radiology Service Progress Note PATIENT NAME: Darling Florez DATE OF SERVICE: February 22, 2023 [...] PERIPHERAL IV DATA: Not applicable SIGNED BY: NADYA Hanks) February 22, 2023 1:40 [facility]11-14-2023 NoteHNO ID: [id number] Author: Argenis Baron RT(R) Service: ? Author Type: Technologist Type: Progress Notes Filed: 02/22/2023 12:38 PM Note Text: Radiology Service Progress Note PATIENT NAME: Darling Florez DATE OF SERVICE: February 22, 2023 [...] IV DATA: Not applicable SIGNED BY: RT Lindsay(R) February 22, 2023 12:38 [facility]10-23-2023 Miscellaneous Notes* Telephone Encounter - Maira Mendes MA - 01/31/2023 8:11 PM EDT Pt was notified of the results. Pt verbalized understanding. Maira Mendes MA * Telephone Encounter - Ronny Anton APRN.CNP - 01/31/2023 6:42 PM EDT COVID-19, influenza A, and influenza B PCR test are negative. Continue supportive therapies as discussed during visit. Follow-up with PCP if symptoms are not improving. Ronny Anton APRN.JEY documented in this encounterMercy Health Clerm[facility] Hospital10-23-2023 History of Present illness Narrative* Raven Crane PA-C - 01/31/2023 11:20 AM EDT 01/31/2023 Patient presents with: Cough: sore throat and right ear pain, chills x 4-5 days SUBJECTIVE: This is a 67 year old that is here today for Complaint(s) of cough and sore throat x 4-5 days. + right ear discomfort. PMH asthmatic bronchitis. No wheezing as of yet. + mild body aches per patient. Having nasal congestion and rhinorrhea. Denies BOO, fever/chills, vomiting, diarrhea, SOB, chest pain, leg [...] plan. Raven Crane PA-C documented in this encounterMercy Health Clermont Hospital10-16-2023 Miscellaneous Notes* Telephone Encounter - Gregg Caceres LPN - 01/24/2023 4:27 PM EDT Called patient back, patient stated already scheduled. Gregg Caceres LPN * Telephone Encounter - Shantell Gaitan - 01/24/2023 3:54 PM EDT Patient called requesting Dr Fang fax a referral over to [facility] at [phone] Please advise documented in this encounterMercy Health Clermont Hospital10-09-2023 History of Present illness Narrative* Concetta Fang MD - 01/17/2023 11:28 AM EDT Darling Florez 1955 REFERRING PHYSICIAN: Self CHIEF COMPLAINT: Consult (Biopsy left breast and axilla) HPI: The patient is a 67 year old female with presents with findings of left axillary adenopathy from breast screening radiographs US left axillary area - 1.5 cm lymph node, for which biopsy is recommended. Patient has noted lumps of breast for years. She denies nipple discharge. She denies breast pain. She has had bilateral open breast biopsies for cysts in past. She had a needle core breast biopsy of right breast by Dr. Evans in past. She notes that her sister had breast cancer; [facility] 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 Eyes: The patient denies [...] nourished, well hydrated in no acute distress. Thepatient is oriented to time, place, and person. VITALS: Blood pressure 152/82, pulse 80, temperature (!) 35.9 C (96.6 F), height 180.3 cm (5' 11),weight 115.2 kg (254 lb), last menstrual period 07/15/2010, SpO2 100 %. Body mass index is 35.43 kg/m . Head - Normocephalic. EOM intact with sclera clear and no icterus noted. Mouth with mucus membranesmoist. Neck - supple with no jugular venous distention noted. Trachea is midline. No thyroid enlargement or thyroid nodules detected. No masses noted. Chest/breast - no asymmetry of breasts noted, no suspicious skin lesions noted, no nipple dischargeand both nipples everted, no breast masses noted [...] the patient understands. To be referred to [facility] imaging center I told patient that [...] Decision Making Level: 3 - Low Concetta Fang MD documented in this encounterMercy Health Clermont Hospital10-09-2023 Nurse Note* Gregg Caceres, LENS COATER - 01/17/2023 11:04 AM EDT REVIEW OF SYSTEMS: General: The patient denies fatigue, notes weight loss, denies weight gain, denies feeling hot, anddenies feelings of cold. Eyes: The patient denies [...] Dr Bernarda Caceres LPN documented in this encounterMercy Health Clermont Hospital09-11-2023 History of Present illness Narrative* Sowmya Beard PA-C - 12/20/2022 8:43 AM EDT Sowmya Beard PA-C Department of Orthopaedics [facility] [address] [facility] [facility] [address] Dept: [phone] Dept December 20, 2022 CHIEF COMPLAINT: Follow Up of the Right Hip and 6 weeks 5 days post visit Right hip pain Ms. Darling Florez is a 67 year old female who presents with continued right hip pain, pain today is a 9 out of 10 and dull, sharp, stabbing, aching in the right groin area, pain radiates down to theright knee. Patient recently had a prednisone taper, she did not find the taper to be very helpful,she was seen at [facility] urgent care over the weekend, she tells me that she was given some additional oral prednisone. Patient is unable to tolerate oral anti- inflammatories as they upset her stomach. ASSESSMENT: M16.11 Primary osteoarthritis of right hip (primary encounter diagnosis) M25.551 Pain of right hip PLAN: Patient would like to try an intra-articular right hip corticosteroid injection, order was faxed to [facility] for scheduling. If injection is not helpful we will get her into Dr. Berkowitz for further evaluation. Advised patient that injection can be repeated every 91 days. Ms. Darling Florez was advised as to contrast therapies and/or to take analgesics/anti-inflammatories as needed and all contraindications were reviewed. OBJECTIVE: Ms. Darling Florez is a pleasant 67 year old [...] without acute osseous findings. No significant change. Border Measurer: PSCB Transcribe Date/Time: Nov 04 2022 3:52P Dictated [...] PFRMD 05-18-13 CRYO CAUTERY CERVIX 1987 EXCISION CHRIS'S NEUROMA, SINGLE, EACH 1995 R foot NEUROPLASTY [...] anxiety) This note was partially generated using [employer] voice recognition system, and there may be some incorrect words, spellings, and punctuation that were not noted in checking the note before saving. Sowmya Beard PA-C * Concetta Haley Ma - 12/20/2022 8:01 AM EDT Patient presents with: Right Hip - Follow [...] increased pain last week and went to [place] ED. They gave her Hydrocodone and has onlybeen taking when needed. Patient would like an injection. with patient. documented in this encounterMercy Health Clermont Hospital2023 Discharge summary Author Talon Guerrero [facility] December 14, 2022 6:09pm Note Date/Time December 14, 2022 6:07pm [facility] Medical Records Department [address] [place] [address] Emergency Department Summary 12/14/22 MR#: [id number] Acct: [id number] Name: DARLING FLOREZ Rep #:[id number] : 1955 67 From: Talon Guerrero MD PCP: Dr. Ilya Monroe MD Status:RE G ER Location: ED HPI History of Present Illness Chief Complaint: Lower Extremity Injury Narrative Narrative: Patient presents with right hip pain which is chronic she is now developing right knee and right ankle pain. No injury. Pain is quite intense. She has anappointment with orthopedics in 6 days. PFSH PFS Medical History Abnormal stress test Acute respiratory failure with hypoxia Allergies Anxiety Arthritis Asthma 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y artery without angina pectoris Back problem Bradycardia Cataract COVID-19 COVID-19 Depression Essential hypertension External hemorrhoid, thrombosed Fibrocystic breast disease Fibrocystic breast disease Fibromyalgia GERD (gastroesophageal reflux disease) Hearing problem Heart murmur History of left heart catheterization (LHC) (~06/03/21) Hyperlipidemia Hypertension Hypoxemia Migraines Pneumonia due to COVID-19 virus Sciatica Unstable angina Home Medications citalopram 40 mg tablet (Celexa) 40 mg PO DAILY mental health 11/07/18 [History Last Taken 06/02/21] gabapentin 600 mg tablet 600 mg PO QHS PRN nerve pain 11/07/18 [History Last Taken Unknown] gabapentin 100 mg capsule 100 mg PO DAILY PRN nerve pain 01/06/19 [History Last Taken Unknown] albuterol sulfate 2.5 mg/3 mL (0.083 %) solution for nebulization 2.5 mg (3 mL) inhalation Q4H PRN Sob &/Or Wheezing #180 mL 02/07/19 [Rx Last Taken Unknown] pantoprazole 40 mg tablet,delayed release 40 mg PO DAILY PRN reflux 09/12/19 [History Last Taken 2 Days Ago ~05/31/21] fluticasone propionate 50 mcg/actuation nasal spray,suspension 1 spray intranasal BID PRN Congestion 05/04/20 [History Last Taken Unknown] aspirin 81 mg tablet,delayed release (Adult Aspirin Regimen) 81 mg PO DAILY #30 tabs 06/02/21 [Rx Last Taken 2 Days Ago ~05/31/21] cholecalciferol (vitamin D3) 125 mcg (5,000 unit) capsule 125 mcg PO DAILY vitamin 06/02/21 [History Last Taken 06/02/21] montelukast 10 mg tablet (Singulair) 10 mg PO DAILY allergies #90 tabs 06/30/21 [Rx Last Taken Unknown] albuterol sulfate 90 mcg/actuation aerosol inhaler (Ventolin HFA) 2 puff inhalation Q4H PRN shortness of breath or wheezing #1 device 01/01/22 [Rx Last Taken Unknown] dicyclomine 20 mg tablet 20 mg PO TID PRN abdominal cramping #20 tabs 05/10/22 [Rx Last Taken Unknown] azelastine 137 mcg (0.1 %) nasal spray aerosol 2 spray intranasal BID #30 mL 06/10/22 [Rx Last Taken Unknown] hydrocodone-homatropine 5 mg-1.5 mg/5 mL (5 mL) oral syrup (Hycodan) 5 ml PO 4X/DAY PRN PRN cough 7 days #140 mL 06/10/22 [Rx Last Taken Unknown] budesonide-formoterol HFA 160 mcg-4.5 mcg/actuation aerosol inhaler (Symbicort) 2 puff inhalation BID #1 ea 07/02/22 [Rx Last Taken Unknown] isosorbide mononitrate 60 mg tablet,extended release 24 hr 60 mg PO DAILY #90 tabs 07/26/22 [Rx Last Taken Unknown] amlodipine 2.5 mg tablet (Norvasc) 2.5 mg PO DAILY #30 tabs 09/09/22 [Rx Last Taken Unknown] hydrochlorothiazide 12.5 mg capsule 12.5 mg PO DAILY diuretic 30 days #30 caps 09/09/22 [Rx Last Taken Unknown] losartan 25 mg tablet 25 mg PO DAILY blood pressure 30 days #30 tabs 09/09/22 [Rx Last Taken Unknown] atorvastatin 40 mg tablet 40 mg PO QHS #90 tabs 11/04/22 [Rx Last Taken Unknown] hydrocodone-acetaminophen 5-325mg 5mg-325mg 1 tab PO Q4H PRN PRN Pain 3 days #10TABLETS 12/14/22 [Rx Last Taken Unknown] hydrocodone-acetaminophen 5-325mg 5mg-325mg 1 tab PO Q4H PRN PRN Pain 3 days #10TABLETS 12/14/22 [Rx Last Taken Unknown] Allergy/AdvReac Type Severity Reaction Status Date / Time apple Allergy Hives Verified 12/14/22 14:31 banana Allergy Hives Verified 12/14/22 14:31 carrot Allergy Hives Verified 12/14/22 14:31 pineapple Allergy Itching Verified 12/14/22 14:31 shellfish derived [lobster] Allergy Anaphylaxis Verified 12/14/22 14:31 shrimp Allergy Anaphylaxis Verified 12/14/22 14:31 amoxicillin AdvReac YEAST Verified 12/14/22 14:31 INFECTION Family History (Reviewed 07/02/22 @ 09:58 by Jules Scott INTERNATIONAL LOGISTICS ANALYST, INTERNATIONAL LOGISTICS ANALYST-C) Sister Breast cancer Mother Heart disease Enlarged heart Hx of CABG CABG x 4. Rheumatoid arthritis Grandmother Enlarged heart Father Diabetes Other Anxiety and depression Arthritis History of blood clots Hypertension Surgical History (Reviewed 07/02/22 @ 09:58 by Jules Scott INTERNATIONAL LOGISTICS ANALYST, INTERNATIONAL LOGISTICS ANALYST-C) H/O tubal ligation History of removal of cyst Hx of appendectomy Social History (Reviewed 07/02/22 @ 09:58 by Jules Scott INTERNATIONAL LOGISTICS ANALYST, INTERNATIONAL LOGISTICS ANALYST-C) household members: spouse Smoking Status: Former smoker quit date: 04/11/93 alcohol intake: current alcohol intake frequency: holidays/special occasions only Alcohol type: wine details: social substance use type: does not use caffeine: No additional social history: Does take aspirin daily Does not take Ibuprofen ROS ROS ED ROS Narrative Past medical history: Bradycardia, history of hypertension, hypercholesterolemia Medications: Reviewed Social history: Former smoker Review of systems: Musculoskeletal: As in HPI Skin: No abrasions or lacerations Neurological: No weakness or paresthesias Hematologic: No easy bleeding or easy bruising EXAM Physical Exam Narrative Exam Narrative: Physical exam General: Patient does not appear in significant distress . Head: Normocephalic, Atraumatic Neck: No C-spine tenderness Cardiovascular: Normal distal pulses Back: Nontender, Normal Inspection. Extremities: Right hip shows tenderness to logrolling and in the groin region. No instability in the pelvis. Ill-defined knee and ankle pain without any effusion. Skin: No abrasions, no lacerations Neurological: Normal strength and sensation Const Vital Signs: 12/14/22 14:31 Temperature 97.3 F L Temperature Source Temporal Pulse Rate 71 Respiratory Rate 14 Blood Pressure 147/77 H Blood Pressure Mean 100 Pulse Ox 98 Oxygen Delivery Method Room Air MDM MDM MDM Narrative Medical decision making narrative: Hip x-ray read by me as DJD Knee x-ray read by me as normal Ankle x-ray read by me as normal. Patient does have DJD. At this time I will give her analgesics. I gave her analgesics in the ED with improvement. She can follow-up with orthopedics. I do not believe this is discogenic. I do not believe she needs an MRI at this time. She does not meet admission criteria since she can still ambulate. I will give her a walker for home since the cane does not seem to be helping. Otherwise she will be discharged in stable condition with analgesia. Radiography Diagnostic Testing: Clinical Impression(s) from Imaging Studies Ankle X-Ray 12/14/22 16:30 IMPRESSION: Negative. Electronically Signed: Peggy Murdock MD at 17:17 EDT Reading Location ID and State: Ramo Salazar MD Tel , Service support , Hip/Pelvis X-Ray 12/14/22 16:30 IMPRESSION: No acute findings. Mild osteoarthrosis of the right hip. Electronically Signed: Peggy Murdock MD at 17:23 EDT Reading Location ID and State: Ramo Salazar MD Tel , Service support , Knee X-Ray 12/14/22 16:30 IMPRESSION: Negative. Electronically Signed: Peggy Murdock MD at 17:31 EDT Reading Location ID and State: Ramo Salazar MD Tel , Service support , Discharge Plan Triage Chief Complaint: Lower Extremity Injury ED Provider: Talon Guerrero Dx/Rx/DC Orders Clinical Impression: Acute hip pain, DJD (degenerative joint disease) Instructions: What Is Arthritis?, What Is Osteoarthritis? Prescriptions: New hydrocodone-acetaminophen 5-325 mg tablet 1 tab PO Q4H PRN PRN (Reason: Pain) 3 Days Qty: 10 0RF hydrocodone-acetaminophen 5-325 mg tablet 1 tab PO Q4H PRN PRN (Reason: Pain) 3 Days Qty: 10 0RF No Action citalopram [Celexa] 40 mg tablet 40 mg PO DAILY gabapentin 600 mg tablet 600 mg PO QHS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 was later hospitalized at [facility] April 2021 with COVID-pneumonia. 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 She is referred to her personal care aide regarding EKG, may want to discontinue metoprolol - COMP METABOLIC PANEL - CBC + DIFF - ECG COMPLETE -sinus bradycardia with 1st degree AV block, no ectopy or ischemic changes per my read 2. Cataract of both eyes, unspecified cataract type - ICD9: 366.9, ICD10: H26.9 3. Coronary artery disease involving [place] coronary artery of [place] heart without angina pectoris- ICD9: 414.01, ICD10: I25.10 - LIPID PANEL, NONFASTING 4. Encounter for screening for diabetes mellitus - ICD9: V77.1, ICD10: Z13.1 - HGB A1C 5. Gastroesophageal reflux disease, unspecified whether esophagitis present - ICD9: 530.81, ICD10: K21.9 - MAGNESIUM BLD Labs today instead of July. 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 Keshawn Hastings MD documented in this encounterMercy Health [facility]12-21-2022 Miscellaneous Notes* Telephone Encounter - Hailey [...] call patient to schedule. documented in this encounterMercy Health [facility]11-22-2022 Instructions* Patient Instructions* Milton Giraldo MD - 03/02/2022 5:01 PM EST Images from the original note were not included. Pre-Op Instructions for patients of Dr. Milton Giraldo 2 days prior to surgery start: Prednisolone [...] swallow them unless instructed otherwise by Dr. Giraldo or Primary Care physician. Get one drop [...] your doctor as needed documented in this encounterMercy Health Cl[facility]11-22-2022 History of Present illness Narrative* Milton Giraldo MD - 03/02/2022 4:51 PM EST Assessment and Plan 1. Combined forms of age-related cataract of both eyes Cataract Presurgical Documentation Cataract: Left eye (OS) Current Visual Acuity Right Eye Distance CC 20/20 Left Eye Distance CC 20/20 Glare Testing: Right Eye Medium 20/50 Right Eye High 20/100 Left Eye Medium 20/40 Left Eye High 20/60 Visual Function: Darling Florez states that the decline in vision from the cataract impedes her abilities as listed in the HPI, as well as other activities of daily living. Darling Florez has confirmed that she is no [...] surgery with lens implantation were discussed with Darling Florez in detail. she appeared to understand [...] by others. I have seen and examined Darling Florez. I have discussed the case and the management of this patient's care with the Resident/Fellow, if applicable. I also have reviewed and agree with the assessment and plan as stated above and agree withall of its relevant components. Milton Giraldo MD March 02, 2022 4:51 PM documented in this encounterMercy Health [facility]11-14-2022 Instructions* Patient Instructions* Adriana Joya APRN.CNS - 02/22/2022 10:13 AM EST Check to see if your insurance covers shingles vaccine and what location to get the vaccine -usually best covered at your local pharmacy where you get prescriptions filled documented in this encounterMercy Health [facility]11-14-2022 History of Present illness Narrative* Adriana Joya APRN.CNS - 02/22/2022 10:02 AM EST SUBJECTIVE: HIV SCREENING Never done BP CONTROLLED (<130/80) Never done SHINGRIX VACCINE(2 of 3) due on 12/27/2016 BONE DENSITY due on 2021 ADVANCE DIRECTIVE DISCUSSION Never done PNEUMOCOCCAL: 65+(1 - PCV) Never done COVID-19 VACCINE(4 - Booster for Pfizer series) due on 01/25/2022 HPI Darling Florez is a 66 year old female. [...] discharge follow up she was seen at [facility] emergency department April 10. Admitted to [facility] for acute respiratory failure with hypoxia, hypokalemiapneumonia due to COVID-19 virus, hypoxemia hypertension and GERD. Noted to have multifocal pneumonia on CTA chest. Treated with dexamethasone at discharge. Unable to get antibiotic infusion due to not available. Notes [id number] recently Presents today for follow up visit [...] was decreased to 12.5 mg daily by [facility] physician. She is in her [...] ICD10: J30.9 (primary diagnosis) Plans to see sales support rep, currently allergies not well controlled - MONTELUKAST 10 MG TABLET - FLUTICASONE PROPIONATE 50 MCG/ACTUATION NASAL SPRAY,SUSPENSION 3. Need for shingles vaccine - ICD9: V04.89, ICD10: Z23 - SHINGRIX PRINTED PHARMACY INSTRUCTIONS 4. Encounter for immunization - ICD9: V03.89, ICD10: Z23 - PNEUMOCOCCAL VACCINE (PREVNAR 20) - Get[employer]-Shmoop COVID-19 BIVALENT BOOSTER VACCINE, AGE 12+ YR [...] suspiciousactivity was identified. 02/22/2022 by Adriana Joya APRN.WINDER HELPER - GABAPENTIN 600 MG TABLET 8. IFG [...] Level: 4 - Moderate documented in this encounterMercy Health [facility]11-07-2022 History of Present illness Narrative* Radha Brand - 02/15/2022 8:31 AM EST Darling Florez is identified through a medication adherence outreach initiative based on pharmacy claims data from [facility] (insurer) for Statin medication(s). Patient is reviewed [...] Gordon Carter PharmD BCACP documented in this encounterMercy Health [facility]09-02-2022 Instructions* Patient Instructions* Ronit Brown APRN.CNP - 12/11/2021 11:02 AM EDT Good RX to fill estrogen cream documented in this encounterMercy Health [facility]09-02-2022 History of Present illness Narrative* Ronit Brown APRN.CNP - 12/11/2021 10:36 AM EDT Director Camp offered: Patient declines. Darling is a 66 year old who presents [...] L4 SAB0 IAB0 Ectopic0 Multiple0 Live Births0 Bid Writer History LMP: 07/15/2010, Postmenopausal Age at Menarche: Age at First : Age at Menopause: Bid Writer History Comments: Sexual Activity: Yes; Male; Postmenopausal Contraception: No contraception data on record PAST MEDICAL HISTORY Diagnosis Date Asthmatic bronchitis Bilateral sciatica Biliary colic Gallbladder attack. Cervical dysplasia DDD (degenerative disc disease), lumbar Fibrocystic breast Fibromyalgia HTN (hypertension) Interstitial cystitis Obesity (BMI 35.0-39.9 without comorbidity) Seafood allergy, anaphylaxis Dr. 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 NEUROPLASTY [...] external genitalia normal, normal Bartholin's glands, urethra, Diggins's glands, no vulvar lesions, no cervical lesions, [...] one year or sooner as needed Ronit Brown APRN.JEY documented in this encounterMercy Health [facility]09-02-2022 History of Present illness Narrative* RT Edwar(R) - 12/11/2021 10:10 AM EDT Radiology Service Progress Note PATIENT NAME: Darling Florez DATE OF SERVICE: December 11, 2021 [...] 11, 2021 10:09 AM documented in this encounterMercy Health [facility]08-22-2022 History of Present illness Narrative* Gracy Alcocer LPN - 11/30/2021 10:00 AM EDT Patient presents for COVID booster. Denies any problems at this time. Tolerated injection well. Gracy Alcocer LPN documented in this encounterMercy Health [facility]08-22-2022 History of Present illness Narrative* Chinyere Goode - 11/30/2021 9:49 AM EDT Reached out to patient on 11/30/2021 @ 9:50 am > no answer, left a voice message Will reach out once more in the future Chinyere Zuñiga Doctor of Pharmacy Candidate 2022 * Chinyere Goode - 11/16/2021 12:50 PM EDT Darling Florez is identified through a medication adherence outreach initiative based on pharmacy claims data from [employer] (insurer). Patient is reviewed 11/16/21 due to [...] date of 06/03/2021 and the source is [facility]. It is also present on the Continuity of Care Visit Summary from [facility] done on 06/03/2021. As a current active [...] of Pharmacy Candidate 2022 documented in this encounterMercy Health Clermont Hospital08-19-2022 Miscellaneous Notes* Telephone Encounter - Jami Delacruz LPN - 11/27/2021 11:52 AM EDT Last seen pcp 08/17/21 Next appt is 02/22/22. * Telephone Encounter - Estefanía Jarquin Pss - 11/27/2021 10:32 AM EDT Patient has been identified by name and date of : Yes Requested Prescriptions Pending Prescriptions Disp Refills citalopram (CELEXA) 40 mg tablet 90 tablet 3 Sig: Take 1 tablet by mouth once daily. RX INSTRUCTIONS: Patient aware RX will be sent to pharmacy. No need to notify patient. Estefanía Jarquin Pss documented in this encounterMercy Health [facility]06-30-2022 Miscellaneous Notes* Telephone Encounter - Jami [...] is within normal limits documented in this encounterMercy Health Clermont Hospital06-30-2022 History of Present illness Narrative* Fiordaliza Reyes, RT(R) - 10/08/2021 9:15 AM EDT Radiology Service Progress Note PATIENT NAME: Darling Florez DATE OF SERVICE: October 08, 2021 [...] 08, 2021 9:39 AM documented in this encounterMercy Health Clermont Hospital06-20-2022 Evaluation + Plan note Extracted from: Title:Clinical Document Author:RASHID ESPINOZA Date:09/28/21 [place] ADMISSION HISTORY AN D PHYSICIAL CHIEF COMPLAINT: HISTORY OF PRESENT ILLNESS: REVIEW OF SYSTEMS: ACTIVE PROBLEMS: (4) Asthma ([id number]) Heart murmur ([id number]) Hypertension ([id number]) Vomiting ([id number]) MEDICATIONS: Active Inpt Meds: None Active PRN Meds: None One Time Meds: None Active IV Meds: Lactated Ringers Infusion 1,000 mL (LR 1,000 mL) Start: 09/28/21 8:28:00 EDT, Rate: 50 mL/hr, 09/28/21 8:28:00 EDT ALLERGIES: (6) Apple Bananas Carrots Pineapple seasonal enviromental Shellfish FAMILY HISTORY: SOCIAL HISTORY: PHYSICAL EXAM: VITALS: [id number](kg) 09/28 08:4836.6131/[id number]/38266.8 24 Hr Tmax: 36.6 at 09/28 08:48 [...] changes to the H&P unless noted below. [facility] Juanjosecarmelo Gandhi 06-20-2022 Hospital Discharge instructions Patient Education 09/28/2021 [...] before eating solid foods. General instructions Take oxrc-aat-xrpifax and prescription medicines only as told by [...] 07/18/2016 Document Revised: 06/26/2018 Document Reviewed: 07/18/2016 RAP Index Patient Education 2020 [employer]. 09/28/2021 10:29:11 9 - AO Minor Esophagogastroduodenoscopy [...] 06/19/13 Custom Follow Up Care 08/24/2021 12:55:40 With:RASHID ESPINOZA MD [address] [phone] [phone] When: Unknown Comments:office will call with specimen results and any follow up if necessary [facility] 05-24-2022 History of Present illness Narrative* Fariha Smith RT(R) - 09/01/2021 12:50 PM EDT Radiology Service Progress Note PATIENT NAME: Darling Florez DATE OF SERVICE: September 01, 2021 TIME: 12:41 PM PATIENT IDENTITY VERIFICATION COMPLETED USING TWO [...] Yes RADIOLOGY DEPARTMENT: General X-ray: Exam(s) Completed: Upper Extremity X- Ray(s): Hand, right PERIPHERAL IV DATA: Not applicable SIGNED BY: RT Latisha(Kemar) September 01, 2021 12:41 PM documented in this encounterMercy Health [facility]05-24-2022 History of Present illness Narrative* Froylan Dorsey APRN.BURRING WHEEL OPERATOR - 09/01/2021 12:49 PM EDT Images from the original note were not included. 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 No acute fracture or dislocation. Border Measurer: YESY Transcribe Date/Time: Sep 01 2021 12:53P Dictated by : GRACY WONG MD Agrees to plan Froylan Dorsey APRN.JEY documented in this encounterCleveland [id number] Miscellaneous Notes* Telephone Encounter - Nicole Carter [...] advise, Nicole Carter RN documented in this encounterMercy Health [facility]05-09-2022 History of Present illness Narrative* Ilya Monroe MD - 08/17/2021 4:57 PM EDT This note was created using NoteWriter. Subjective Darling Florez is a 65 year old female. Patient presents with: F/U 6 months SUBJECTIVE: Darling Florez is a 65 year old year [...] 35.0-39.9 without comorbidity) Seafood allergy, anaphylaxis Dr. Wdasworth Current Outpatient Medications Medication Sig losartan (COZAAR) [...] Height as of 04/15/20: 180 cm (5' 10.87). Weight as of this encounter: 112.9 kg [...] sleep. Ilya Monroe MD documented in this encounterMercy Health [facility]04-28-2022 Miscellaneous Notes* Telephone Encounter - Hamida [...] ER. Ashley Gunter APRN.CNP documented in this encounterMercy Health Clerm[facility] Hospital04-27-2022 History of Present illness Narrative* Sunni Cook PA-C - 08/05/2021 11:05 AM EDT This note was created using Vibeaseriter. Subjective Darling Florez is a 65 year old female. 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 - COVID WITH FLUA+B, ROUTINE Sunni Cook PA-C documented in this encounterMercy Health Cl[facility] Hospital03-22-2022 History of Present illness Narrative* Gracy Alcocer LPN - 06/30/2021 3:40 PM EDT Patient presents for COVID vaccine. Denies any problems at this time. Tolerated injection well. Gracy Alcocer LPN documented in this encounterMercy Health [facility] HospitalEvaludelaware [facility] note* Diagnosis Need for vaccination- Primary Need for prophylactic vaccination and inoculation against unspecified single disease documented in this encounter [facility]Evalud[facility]* Diagnosis Onset Date Resolution Status Asthma chronic Obesity (BMI 30.0-34.9) stiff neck loader caitlyn Essential hypertension chron ic GERD (gastroesophageal reflux disease) chronic Hypokalemia resolved Essential hypertension chron ic Chest pain resolved Asthma chronic Essential hypertension chron ic Unstable angina acute Essential hypertension chron ic GERD (gastroesophageal reflux disease) chronic Chest pain resolved Atherosclerotic heart diseas e of [place] coronary artery without angina pectoris acute Essential hypertension chron ic Asthma chronic [facility] Work Phone: Evaluation note* Diagnosis Viral URI- Primary Acute upper respiratory infections of unspecified site documented in this encounter [facility]* Diagnosis Medication management Encounter for long-term (current) use of other medications documented in this encounter [facility]* Diagnosis Essential hypertension- Primary Unspecified essential hypertension Benign paroxysmal positional vertigo, unspecified laterality DDD (degenerative disc disease), lumbar Degeneration of lumbar or lumbosacral intervertebral disc Bilateral sciatica Sciatica Fibromyalgia Mylagia and myositis, unspecified Vitamin D deficiency Unspecified vitamin D deficiency IFG (impaired fasting glucose) Impaired fasting glucose Hypokalemia Hypopotassemia Encounter for long-term current use of medication documented in this encounter [facility]* Diagnosis Onset Date Resolution Status Essential hypertension chron ic GERD (gastroesophageal reflux disease) chronic Hypokalemia resolved Essential hypertension chron ic Chest pain resolved Asthma chronic Essential hypertension chron ic Unstable angina acute Essential hypertension chron ic GERD (gastroesophageal reflux disease) chronic Chest pain resolved Atherosclerotic heart diseas e of [place] coronary artery without angina pectoris acute Essential hypertension chron ic Asthma chronic [facility] Work Phone: Evaluation note* Diagnosis Hand pain, right- Primary Pain in limb [facility] Diagnosis Vomiting, unspecified vomiting type, unspecified whether nausea present documented in this encounter [facility]* Diagnosis Depression, unspecified depression type documented in this encounter [facility]* Diagnosis Need for vaccination- Primary Need for prophylactic vaccination and inoculation against unspecified single disease documented in this encounter [facility]* Diagnosis Encounter for screening mammogram for malignant neoplasm of breast Other screening mammogram [facility]* Diagnosis Encounter for routine gynecologic examination [...] tissue on mammogram documented in this encounter [facility]* Diagnosis Screening for HIV (human [...] whether esophagitis present documented in this encounter [facility]* Diagnosis Combined forms of age-related cataract of both eyes- Primary Other and combined forms of senile cataract Asteroid hyalosis of right eye Crystalline deposits in vitreous documented in this encounter [facility]* Diagnosis Lumbar back pain with radiculopathy affecting right lower extremity- Primary Osteoarthritis of right hip, unspecified osteoarthritis type Combined forms of age-related cataract of both eyes Other and combined forms of senile cataract documented in this encounter [facility]* Diagnosis Onset Date Resolution Status Atherosclerotic heart diseas e of [place] coronary artery without angina pectoris acute Hyperlipidemia acute Essential hypertension chron ic [facility] Work Phone: Evaluation note* Diagnosis Pre-operative examination for internal medicine- Primary Other specified pre-operative examination Cataract of both eyes, unspecified cataract type Coronary artery disease involving [place] coronary artery of [place] heart without angina pectoris Encounter for screening for diabetes mellitus Screening for diabetes mellitus Gastroesophageal reflux disease, unspecified whether esophagitis present Combined forms of age-related cataract of both eyes Other and combined forms of senile cataract documented [facility] this encounter [facility]* Diagnosis Pseudophakia- Primary Lens replaced by other means documented in this encounter [facility]* Diagnosis Pseudophakia- Primary Lens replaced by other means Combined forms of age-related cataract of both eyes Other and combined forms of senile cataract Asteroid hyalosis of right eye Crystalline deposits in vitreous [facility]* Diagnosis Uveitis, intermediate, left- Primary Uveitis, anterior Unspecified iridocyclitis Pseudophakia Lens replaced by other means Combined forms of age-related cataract of both eyes Other and combined forms of senile cataract Asteroid hyalosis of right eye Crystalline deposits in vitreous documented in this encounter [facility]* Diagnosis Pseudophakia- Primary Lens replaced by other means Uveitis, anterior Unspecified iridocyclitis documented in this encounter [facility]* Diagnosis Pseudophakia- Primary Lens replaced by other means Vitreous floaters of left eye Uveitis, anterior Unspecified iridocyclitis documented in this encounter [facility]* Diagnosis Essential hypertension- Primary Unspecified [...] Impaired fasting glucose documented in this encounter [facility]* Diagnosis Onset Date Resolution Status Asthma [facility] Work Phone: Evaluation note* Diagnosis Vagina itching- Primary Pruritus of genital organs Postmenopausal atrophic vaginitis Encounter for screening mammogram for breast cancer Dense breast tissue [facility] Diagnosis Primary osteoarthritis of right hip- Primary Primary localized osteoarthrosis, pelvic region and thigh Pain of right hip [facility] Diagnosis Abnormal mammogram- Primary Abnormal mammogram, unspecified [facility]* Diagnosis Abnormal ultrasound of breast- Primary Other (abnormal) findings on radiological examination of breast [facility]* Diagnosis Acute cough- Primary [facility] Diagnosis Abnormal ultrasound of breast- Primary Other (abnormal) findings on radiological examination of breast [facility]* Diagnosis Abnormal ultrasound of breast Other (abnormal) findings on radiological examination of breast [facility] Diagnosis 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) (HCC)- Primary [facility] Diagnosis 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, left (HCC)- Primary Vitamin D deficiency Unspecified vitamin D deficiency [facility] Diagnosis 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, left (HCC) [facility]* Diagnosis 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, left (HCC)- Primary Abnormal ultrasound of breast Other (abnormal) findings on radiological examination of breast Abnormal findings on diagnostic imaging of breast Other (abnormal) findings on radiological examination of breast [facility]* Diagnosis Secondary malignancy of axillary node (HCC)- Primary [facility] Diagnosis Abnormal findings on diagnostic imaging of breast Other (abnormal) findings on radiological examination of breast [facility] Diagnosis Onset Date Resolution Status Aortic valve sclerosis chron ic Coronary artery disease stiff neck loader caitlyn Dyslipidemia chronic Essential hypertension chron ic [facility] Work Phone: Evaluation note* Diagnosis Sore throat- Primary Acute pharyngitis Essential hypertension Unspecified essential hypertension Depression, unspecified depression type DDD (degenerative disc disease), lumbar Degeneration of lumbar or lumbosacral intervertebral disc Bilateral sciatica Sciatica Fibromyalgia Mylagia and myositis, unspecified Allergic rhinitis, unspecified seasonality, unspecified trigger Benign paroxysmal positional vertigo, unspecified laterality Acute cough Asthma with acute exacerbation, unspecified asthma severity, unspecified whether persistent Cough Encounter for immunization Need for other specified prophylactic vaccination against single bacterial disease Need for shingles vaccine Need for prophylactic vaccination and inoculation against other viral diseases Screening for osteoporosis Special screening for osteoporosis Asymptomatic menopause Screening for colon cancer Special screening for malignant neoplasms, colon 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y artery without angina pectoris Coronary atherosclerosis of [place] coronary artery [facility]* Diagnosis Screening for osteoporosis Special screening for osteoporosis Asymptomatic menopause [facility] Diagnosis Malignant neoplasm of breast in female, estrogen receptor positive, unspecified laterality, unspecified site of breast (HCC)- Primary [facility] Diagnosis Malignant neoplasm of breast in female, estrogen receptor positive, unspecified laterality, unspecified site of breast (HCC) [facility] Diagnosis Malignant neoplasm of breast in female, estrogen receptor positive, unspecified laterality, unspecified site of breast (HCC) [facility] Diagnosis Malignant neoplasm of breast in female, estrogen receptor positive, unspecified laterality, unspecified site of breast (HCC)- Primary [facility]* Diagnosis Malignant neoplasm of breast in female, estrogen receptor positive, unspecified laterality, unspecified site of breast (HCC)- Primary [facility]* Diagnosis Essential hypertension Unspecified essential hypertension [facility] Diagnosis Malignant neoplasm of breast in female, estrogen receptor positive, unspecified laterality, unspecified site of breast (HCC)- Primary Carcinoma of breast metastatic to bone, unspecified laterality (HCC) [facility] Diagnosis Malignant neoplasm of breast in female, estrogen receptor positive, unspecified laterality, unspecified site of breast (HCC)- Primary [facility]* Diagnosis Invasive ductal carcinoma of breast, left (HCC)- Primary [facility] Diagnosis Malignant neoplasm of breast in female, estrogen receptor positive, unspecified laterality, unspecified site of breast (HCC) [facility] Diagnosis Combined forms of age-related cataract of right eye- Primary Other and combined forms of senile cataract Pseudophakia Lens replaced by other means Asteroid hyalosis of right eye Crystalline deposits in vitreous Vitreous floaters of left eye Dry eye syndrome of bilateral lacrimal glands Tear film insufficiency, unspecified [facility] Diagnosis Lumbar disc disease- Primary Other and unspecified disc disorder of lumbar region Invasive ductal carcinoma of breast, left (HCC) [facility]* Diagnosis DDD (degenerative disc disease), lumbar- Primary Degeneration of lumbar or lumbosacral intervertebral disc Bilateral sciatica Sciatica Fibromyalgia Mylagia and myositis, unspecified Elevated glucose Other abnormal glucose Mixed hyperlipidemia Sinus congestion Other diseases of nasal cavity and sinuses Sore throat Acute pharyngitis Postnasal drip [facility]* Diagnosis Primary osteoarthritis of right hip- Primary Primary localized osteoarthrosis, pelvic region and thigh Pain of right hip [facility]* Diagnosis Malignant neoplasm of breast in female, estrogen receptor positive, unspecified laterality, unspecified site of breast (HCC) [facility]* Diagnosis Invasive ductal carcinoma of breast, left (HCC)- Primary 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) [facility]* Diagnosis Foot pain, right Pain in limb [facility] Diagnosis Invasive ductal carcinoma of breast, left (HCC) [facility]* Diagnosis Right knee pain, unspecified chronicity [facility] Diagnosis Acute cough- Primary Acute cough [facility] Diagnosis Acute cough [facility] Diagnosis Invasive ductal carcinoma of breast, left (HCC)- Primary [facility]* Diagnosis Sinobronchitis- Primary Unspecified sinusitis (chronic) Nausea Nausea alone [facility]* Diagnosis Invasive ductal carcinoma of breast, left (HCC)- Primary [facility] Diagnosis Invasive ductal carcinoma of breast, left (HCC)- Primary 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) [facility]* Diagnosis Burning with urination- Primary Dysuria Thrush Candidiasis of mouth [facility]* Diagnosis Burning with urination- Primary Dysuria [facility]* Diagnosis Dysuria- Primary Primary hypertension Unspecified essential hypertension Need for COVID-19 vaccine [facility]* Diagnosis Sore throat- Primary Acute pharyngitis Mild asthma without complication, unspecified whether persistent documented in this encounter [facility] [place] note* Diagnosis Encounter for immunization- Primary Need for other specified prophylactic vaccination against single bacterial disease Screening for cervical cancer Screening for malignant neoplasm of the cervix Screening for colon cancer Special screening for malignant neoplasms, colon Encounter for screening mammogram for breast cancer Hypertension Unspecified essential hypertension Asthma Unspecified asthma Encounter for screening examination for other mental health and behavioral disorders Depression, unspecified depression type Allergic rhinitis, unspecified seasonality, unspecified trigger DDD (degenerative disc disease), lumbar Degeneration of lumbar or lumbosacral intervertebral disc Bilateral sciatica Sciatica Fibromyalgia Mylagia and myositis, unspecified Essential hypertension Unspecified essential hypertension Benign paroxysmal positional vertigo, unspecified laterality Atherosclerosis of [place] coronary artery of [place] heart without angina pectoris documented in this encounter [facility] [place] note* Diagnosis Asthma, unspecified asthma severity, unspecified whether complicated, unspecified whether persistent- Primary documented in this encounter [facility] [place] note* Diagnosis Encounter for screening mammogram for breast cancer [facility]* Diagnosis Asthma, unspecified asthma severity, unspecified whether complicated, unspecified whether persistent- Primary documented in this encounter [facility] [place] note* Diagnosis Breast asymmetry- Primary Other specified disorders of breast Invasive ductal carcinoma of breast, left (HCC) documented in this encounter [facility] [place] note* Diagnosis Acute cough- Primary Sinobronchitis Unspecified sinusitis (chronic) Nasal congestion Other diseases of nasal cavity and sinuses Carcinoma of breast metastatic to multiple sites, unspecified laterality (HCC) documented in this encounter [facility] [place] noteNo assessment information availableWLouis [facility] Work Phone: Evaluation note* Diagnosis Thrush Candidiasis of mouth documented in this encounter [facility] [place] note* Diagnosis Malignant neoplasm of breast in female, estrogen receptor positive, unspecified laterality, unspecified site of breast (HCC)- Primary 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) [facility]* Diagnosis Invasive ductal carcinoma of breast, left (HCC) [facility]* Diagnosis Breast asymmetry Other specified disorders of breast documented in this encounter [facility] [place] note* Diagnosis Dysuria- Primary Hematuria, unspecified type documented in this encounter [facility] [place] note* Diagnosis Malignant neoplasm of breast in female, estrogen receptor positive, unspecified laterality, unspecified site of breast (HCC) [facility]* Diagnosis Malignant neoplasm of breast in female, estrogen receptor positive, unspecified laterality, unspecified site of breast (HCC) [facility]* Diagnosis Former smoker- Primary Personal history of tobacco use, presenting hazards to health Invasive ductal carcinoma of breast, left (HCC) Mild asthma without complication, unspecified whether persistent (HCC) Restrictive pattern present on pulmonary function testing documented in this encounter [facility] [place] note* Diagnosis Invasive ductal carcinoma of breast, left (HCC)- Primary 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) [facility]* Diagnosis Headache, unspecified headache type- Primary [facility]* Diagnosis Hematuria, unspecified type- Primary [facility]* Diagnosis Hematuria, unspecified type- Primary Burning with urination Dysuria Screening for genitourinary condition Screening for other and unspecified genitourinary condition documented in this encounter [facility] [place] note* Diagnosis Dizziness- Primary Dizziness and giddiness Dark urine Other nonspecific finding on examination of urine Situational mixed anxiety and depressive disorder Adjustment disorder with mixed anxiety and depressed mood Encounter for immunization Need for other specified prophylactic vaccination against single bacterial disease Vulvar irritation Other specified noninflammatory disorder of vulva and perineum [facility]* Diagnosis Vaginal discharge- Primary Leukorrhea, not specified as infective Vagina itching Pruritus of genital organs Invasive ductal carcinoma of breast, left (HCC) Postmenopausal atrophic vaginitis * Assessment & Plan Note - Mustapha Silverio APRN.CNM - 10/08/2024 11:08 AM EDT Associated Problem(s): Invasive ductal carcinoma of breast, left (HCC) [facility] Diagnosis Vaginal discharge- Primary Leukorrhea, not specified as infective Vagina itching Pruritus of genital organs Invasive ductal carcinoma of breast, left (HCC) Postmenopausal atrophic vaginitis Sore throat- Primary Acute pharyngitis [facility] Diagnosis Vaginal discharge- Primary Leukorrhea, not specified as infective Vagina itching Pruritus of genital organs Invasive ductal carcinoma of breast, left (HCC) Postmenopausal atrophic vaginitis Malignant neoplasm of breast in female, estrogen receptor positive, unspecified laterality, unspecified site of breast (HCC)- Primary 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) [facility]* Diagnosis Vaginal discharge- Primary Leukorrhea, not specified as infective Vagina itching Pruritus of genital organs Invasive ductal carcinoma of breast, left (HCC) Postmenopausal atrophic vaginitis Malignant neoplasm of breast in female, estrogen receptor positive, unspecified laterality, unspecified site of breast (HCC)- Primary [facility]* Diagnosis Vaginal discharge- Primary Leukorrhea, not specified as infective Vagina itching Pruritus of genital organs Invasive ductal carcinoma of breast, 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, left (HCC)- Primary [facility] Diagnosis Vaginal discharge- Primary Leukorrhea, not specified as infective Vagina itching Pruritus of genital organs Invasive ductal carcinoma of breast, left (HCC) Postmenopausal atrophic vaginitis Combined forms of age-related cataract of right eye- Primary Other and combined forms of senile cataract Pseudophakia Lens replaced by other means Asteroid hyalosis of right eye Crystalline deposits in vitreous Dry eye syndrome of bilateral lacrimal glands Tear film insufficiency, unspecified [facility] N[facility]ative No data available for this section [facility] Hospital Discharge instructionsWLouis [facility] Work Phone: Hospital Discharge instructions Additional Instructions Your CT scan negative. Labs are stable. Urine with mild hematuria. Follow-up with urology for this. Otherwise follow-up with your PCP and GI for your abdominal pain symptoms. Return if anything worsens. Take medication as prescribed.[facility] Work Phone: Hospital Discharge instructions Additional Instructions Continue Tylenol or Motrin as needed. Follow-up with your primary care doctor. If your symptoms worsen please come back to the ER.[facility] Work Phone: Hospital Discharge instructionsAdditional Instructions Call and follow-up with either your oncologist Dr. Heriberto Disla or your primary care physician Dr. Ilya Monroe as soon as possible. Percocet for pain. Plenty of fluids, fruits, vegetable fiber and stool softener prevent constipation. The breast cancer shows on the CAT scan it is spread your spine and pelvis. [facility] Work Phone: Progress note No data available for this section [facility] Reason for referral (narrative)* Diagnostic Procedure Only (Urgent) - Closed Specialty Diagnoses / Procedures Referred By Conthafsa fontanez Referred To Contact XR IMAGING Diagnoses Hand pain, right Procedures XR HAND GENERAL 3V PA/LAT/OBL RIGHT RADEX HAND MINIMUM 3 VIEWS Froylan Dorsey APRN.CNP [address] [place] [address] Xr Imaging Referral ID Status Reason Start Date Expiration Date V isits Requested Visits Authorized [id number] Closed Auto-Generate d Referral 09/01/2021 10/01/2022 1 1 [facility] for referral (narrative)* Diagnostic Procedure Only (Routine) - Closed Specialty Diagnoses / Procedures Referred By Conthafsa fontanez Referred To Contact US IMAGING Diagnoses Vomiting, unspecified vomiting type, unspecified whether nausea present Procedures US ABD RT UPPER QUADRANT US ABDOMINAL REAL TIME W/IMAGE LIMITED Ilya Monroe MD [address] [place] [address] Us Imaging Referral ID Status Reason Start Date Expiration Date V isits Requested Visits Authorized [id number] Closed Auto-Generate d Referral 09/30/2021 10/29/2022 1 1 [facility] for referral (narrative)* Diagnostic Procedure Only (Routine) - Closed Specialty Diagnoses / Procedures Referred By Radha fontanez Referred To Contact BR IMAGING Diagnoses Encounter for screening mammogram for malignant neoplasm of breast Procedures TERESE SCREENING W RAFY SCREENING BREAST DGTL RAFY UNI/BILAT ADD ON SCREENING MAMMOGRAPHY BI 2-VIEW BREAST INC CAD Reina Burgess APRN.CNM [address] [place] [address] [facility] [address] [place] [address] Referral ID Status Reason Start Date Expiration Date V isits Requested Visits Authorized [id number] Closed Auto-Generate d Referral 12/01/2020 12/31/2021 1 1 [facility] for referral (narrative)* Diagnostic Procedure Only (Routine) - Pending Review Specialty Diagnoses / Procedures Referred By Radha fontanez Referred To Contact BR IMAGING Diagnoses Encounter for screening mammogram for malignant neoplasm of breast Dense breast tissue on mammogram Procedures TERESE SCREENING W RAFY SCREENING DIGITAL BREAST TOMOSYNTHESIS BI SCREENING MAMMOGRAPHY BI 2-VIEW BREAST INC Ronit Sapp APRN.BURRING WHEEL OPERATOR [address] [place] [address] [facility] [address] [place] [address] Referral ID Status Reason Start Date Expiration Date Visits Requested Visits Authorized [id number] Pending Review Auto-Generat ed Referral 12/11/2021 01/10/2023 1 1 [facility] for referral (narrative)* Outpatient Procedure (Routine) - Closed Specialty Diagnoses / Procedures Referred By Contac t Referred To [facility] Diagnoses Pre-operative examination for internal medicine Procedures ECG COMPLETE ECG ROUTINE ECG W/LEAST 12 LDS W/I&R Adriana Joya APRN.WINDER HELPER [address] [place] [address] [facility] [place] [address] [place] [address] Referral ID Status Reason Start Date Expiration Date V isits Requested Visits Authorized [id number] Closed Auto-Generate d Referral 05/27/2022 05/27/2023 1 1 [facility] for referral (narrative)* Outpatient Procedure (Routine) - Authorized Specialty Diagnoses / Procedures Referred By Radha t Referred To Contact [facility] Diagnoses Asthma Procedures SPIROMETRY - BASELINE AND POST DILATOR BRNCDILAT RSPSE SPMTRY PRE&POST-BRNCDILAT ADMN Adriana Joya APRN.WINDER HELPER [address] [place] [address] [facility] [place] [address] [place] [id number] Referral ID Status Reason Start Date Expiration Date Visits Requested Visits Authorized [id number] Authorized Auto-Generat ed Referral 08/23/2022 09/22/2023 1 1 [facility] for referral (narrative)* Diagnostic Procedure Only (Routine) - Authorized Specialty Diagnoses / Procedures [facility] Referred To Contact [facility] Diagnoses Encounter for screening mammogram for breast cancer Dense breast tissue Procedures TERESE SCREENING W RAFY SCREENING DIGITAL BREAST TOMOSYNTHESIS BI SCREENING MAMMOGRAPHY BI 2-VIEW BREAST INC Ronit Sapp HR RECRUITER.BURRING WHEEL OPERATOR [place] [address] [facility] [address] [place] [address] Referral ID Status Reason Start Date Expiration Date Visits Requested Visits Authorized [id number] Authorized Auto-Generat ed Referral 11/19/2023 12/18/2023 1 1 [facility] for referral (narrative)* Diagnostic Procedure Only (Routine) - Pending Review Specialty Diagnoses / Procedures Referred By Contac t Referred To Contact BR [facility] Diagnoses Abnormal mammogram Procedures US BREAST LTD LEFT US BREAST UNI REAL TIME WITH IMAGE LIMITED Ronit Brown APRN.CNP [address] [place] [address] [facility] [address] [place] [address] Referral ID Status Reason Start Date Expiration Date Visits Requested Visits Authorized [id number] Pending Review Auto-Generat ed Referral 12/31/2022 01/30/2024 1 1 [facility] for referral (narrative)* Diagnostic Procedure Only (Routine) - Authorized Specialty Diagnoses / Procedures Referred By Contac t Referred To Contact [facility] Diagnoses Abnormal ultrasound of breast Procedures US BIOPSY BREAST LEFT BX BREAST W/DEVICE 1ST LESION ULTRASOUND Concetta Aguiar MD [address] [place] [address] Br Imaging [address] [place] [address] Referral ID Status Reason Start Date Expiration Date Visits Requested Visits Authorized [id number] Authorized Auto-Generat ed Referral 3 03/02/2024 1 1 [facility] for referral (narrative)* Diagnostic Procedure Only (Routine) - Authorized Specialty Diagnoses / Procedures [facility] Referred To Contact BR IMAGING Diagnoses Abnormal findings on diagnostic imaging of breast Procedures US BREAST LTD LEFT US BREAST UNI REAL TIME WITH IMAGE LIMITED Gregg Bae MD [address] [place] [address] Br Imaging [address] [place] [address] Referral ID Status Reason Start Date Expiration Date Visits Requested Visits Authorized [id number] Authorized Auto-Generat ed Referral 03/18/2023 04/16/2024 1 1 [facility] for referral (narrative)* Diagnostic Procedure Only (Routine) - Closed Specialty Diagnoses / Procedures Referred By Contac t Referred To Contact BR IMAGING Diagnoses Abnormal findings on diagnostic imaging of breast Procedures US BREAST LTD LEFT US BREAST UNI REAL TIME WITH IMAGE LIMITED Gregg Bae MD [address] [place] [address] Br Imaging [address] [place] [address] Referral ID Status Reason Start Date Expiration Date V isits Requested Visits Authorized [id number] Closed Auto-Generate d Referral 03/18/2023 04/16/2024 1 1 [facility] for referral (narrative)* Diagnostic Procedure Only (Routine) - Authorized Specialty Diagnoses / Procedures Referred By Contac t Referred To Contact MOLECULAR & FUNCTIONAL IMAGING Diagnoses Malignant neoplasm of breast in female, estrogen receptor positive, unspecified laterality, unspecified site of breast (HCC) Procedures NM BONE WHOLE BODY BONE &/JOINT [place] [address] [place] [id number] Molecular [facility] Functional [facility] [address] [id number] Referral ID Status Reason Start Date Expiration Date Visits Requested Visits Authorized [id number] Authorized Auto-Generat ed Referral 06/08/2023 04/10/2024 2 2 * MRI/CT (Routine) - Authorized Specialty Diagnoses / Procedures [facility] Referred To Contact CT IMAGING Diagnoses Malignant neoplasm of breast in female, estrogen receptor positive, unspecified laterality, unspecified site of breast (HCC) Procedures CT CHEST W IVCON DIAGNOSTIC COMPUTED TOMOGRAPHY [place]ORAX W/[place] [address] [place] [address] Ct Imaging [facility] Referral ID Status Reason Start Date Expiration Date Visits Requested Visits Authorized [id number] Authorized Auto-Generat ed Referral 06/08/2023 07/07/2024 1 1 * MRI/CT (Routine) - Authorized Specialty Diagnoses / Procedures Referred By Contac t Referred To Contact CT IMAGING Diagnoses Malignant neoplasm of breast in female, estrogen receptor positive, unspecified laterality, unspecified site of breast (HCC) Procedures CT ABD/PEL W IVCON CT ABD & PELVIS W/[place] [id number] Imaging [facility] Referral ID Status Reason Start Date Expiration Date Visits Requested Visits Authorized [id number] Authorized Auto-Generat ed Referral 06/08/2023 07/07/2024 1 1 [facility] for referral (narrative)* Diagnostic Procedure Only (Routine) - Authorized Specialty Diagnoses / Procedures Referred By Contac t Referred To Contact MOLECULAR & FUNCTIONAL IMAGING Diagnoses Malignant neoplasm of breast in female, estrogen receptor positive, unspecified laterality, unspecified site of breast (HCC) Procedures NM BONE WHOLE BODY BONE &/JOINT [place] [address] [place] [address] Molecular & Functional Imaging [address] [place] [address] Referral ID Status Reason Start Date Expiration Date Visits Requested Visits Authorized [id number] Authorized Auto-Generat ed Referral 06/08/2023 04/10/2024 2 2 [facility] for referral (narrative)* Diagnostic Procedure Only (Routine) - Pending Review Specialty Diagnoses / Procedures Referred By Contac t Referred To Contact MOLECULAR & FUNCTIONAL IMAGING Diagnoses Malignant neoplasm of breast in female, estrogen receptor positive, unspecified laterality, unspecified site of breast (HCC) Procedures NM BONE WHOLE BODY BONE &/JOINT [place]ING [place] [address] [place] [address] Molecular & Functional Imaging [address] [place] [address] Referral ID Status Reason Start Date Expiration Date Visits Requested Visits Authorized [id number] Pending Review Auto-Generat ed Referral 09/13/2023 10/12/2024 1 1 [facility] for referral (narrative)* Diagnostic Procedure Only (Routine) - Closed Specialty Diagnoses / Procedures Referred By Contac t Referred To Contact XR IMAGING Diagnoses Malignant neoplasm of breast in female, estrogen receptor positive, unspecified laterality, unspecified site of breast (HCC) Procedures XR THORACIC LIMITED 2V AP/LAT RADEX SPINE THORACIC 2 [place] [address] [place] [address] Xr Imaging [place] [address] Referral ID Status Reason Start Date Expiration Date V isits Requested Visits Authorized [id number] Closed Auto-Generate d Referral 10/26/2023 11/24/2024 1 1 [facility] for referral (narrative)* Diagnostic Procedure Only (Routine) - Closed Specialty Diagnoses / Procedures Referred By Contac t Referred To Contact MOLECULAR & FUNCTIONAL IMAGING Diagnoses Malignant neoplasm of breast in female, estrogen receptor positive, unspecified laterality, unspecified site of breast (HCC) Procedures NM BONE WHOLE BODY BONE &/JOINT IMAGING [place] [address] [address] [place] [phone] Molecular [facility] Functional Imaging [address] [place] [address] Referral ID Status Reason Start Date Expiration Date V isits Requested Visits Authorized [id number] Closed Auto-Generate d Referral 11/21/2023 04/10/2024 2 2 [facility] for referral (narrative)* Diagnostic Procedure Only (Routine) - Authorized Specialty Diagnoses / Procedures Referred By Contac t Referred To Contact BR IMAGING Diagnoses Invasive ductal carcinoma of breast, left (HCC) Procedures US BREAST LTD LEFT US BREAST UNI REAL TIME [place] [address] [place] [address] Br Imaging [address] [place] [address] Referral ID Status Reason Start Date Expiration Date Visits Requested Visits Authorized [id number] Authorized Auto-Generat ed Referral 12/23/2023 01/21/2025 1 1 [facility] for referral (narrative)* Diagnostic Procedure Only (Urgent) - Closed Specialty Diagnoses / Procedures [facility] Referred To Contact XR IMAGING Diagnoses Foot pain, right Procedures XR FOOT GENERAL 3V AP/LAT/OBL RIGHT RADEX FOOT COMPLETE MINIMUM 3 VIEWS Keshawn Hastings MD [address] [place] [address] Xr Imaging [facility] Referral ID Status Reason Start Date Expiration Date V isits Requested Visits Authorized [id number] Closed Auto-Generate d Referral 11/29/2022 12/29/2023 1 1 [facility] for referral (narrative)* Diagnostic Procedure Only (Routine) - Closed Specialty Diagnoses / Procedures [facility] Referred To Contact BR IMAGING Diagnoses Invasive ductal carcinoma of breast, left (HCC) Procedures US BREAST LTD LEFT US BREAST UNI REAL TIME [place] [address] [address] [place] [phone] Br Imaging [address] [place] [address] Referral ID Status Reason Start Date Expiration Date V isits Requested Visits Authorized [id number] Closed Auto-Generate d Referral 12/23/2023 01/21/2025 1 1 [facility] for referral (narrative)* Diagnostic Procedure Only (Urgent) - Closed Specialty Diagnoses / Procedures Referred By Radha t Referred To Contact XR IMAGING Diagnoses Right knee pain, unspecified chronicity Procedures XR KNEE GENERAL 4V AP BOTH/PA BOTH/LAT/MERC RIGHT RADIOLOGIC EXAM KNEE COMPLETE 4/MORE VIEWS Keshawn Hastings MD [address] [place] [address] [place] [address] Referral ID Status Reason Start Date Expiration Date V isits Requested Visits Authorized [id number] Closed Auto-Generate d Referral 09/30/2022 10/30/2023 1 1 [facility] for referral (narrative)No reason for referral information availableWLouis Stokes [facility] Work Phone: Reason for visit Narrative* Diagnostic Procedure Only (Routine) - Closed Specialty Diagnoses / Procedures [facility] Referred To Contact BR IMAGING Diagnoses Encounter for screening mammogram for malignant neoplasm of breast Procedures TERESE SCREENING W RAFY SCREENING BREAST DGTL RAFY UNI/BILAT ADD ON SCREENING MAMMOGRAPHY BI 2-VIEW BREAST INC Reina Forrest APRN.CN [address] [place] [address] Br Imaging [address] [place] [address] Referral ID Status Reason Start Date Expiration Date V isits Requested Visits Authorized [id number] Closed Auto-Generate d Referral 12/01/2020 12/31/2021 1 1 [facility] for visit Narrative* Diagnostic Procedure Only (Routine) - Closed Specialty Diagnoses / Procedures [facility] Referred To Contact BR IMAGING Diagnoses Abnormal ultrasound of breast Procedures US BIOPSY BREAST LEFT BX BREAST W/DEVICE 1ST LESION ULTRASOUND GUID BREAST SURGERY PROCEDURE UNLISTED Concetta Fang MD [address] [place] [address] Br Imaging [address] [place] [address] Referral ID Status Reason Start Date Expiration Date V isits Requested Visits Authorized [id number] Closed Auto-Generate d Referral 02/01/2023 03/02/2024 1 1 [facility] for visit Narrative* Diagnostic Procedure Only (Routine) - Closed Specialty Diagnoses / Procedures Referred By Contac t Referred To Contact BR IMAGING Diagnoses Abnormal findings on diagnostic imaging of breast Procedures US BREAST LTD LEFT US BREAST UNI REAL TIME WITH IMAGE LIMITED Gregg Bae MD [address] [place] [address] Br Imaging [address] [place] [address] Referral ID Status Reason Start Date Expiration Date V isits Requested Visits Authorized [id number] Closed Auto-Generate d Referral 03/18/2023 04/16/2024 1 1 [facility] for visit Narrative* Diagnostic Procedure Only (Routine) - Authorized Specialty Diagnoses / Procedures Referred By Contac t Referred To Contact MOLECULAR & FUNCTIONAL IMAGING Diagnoses Malignant neoplasm of breast in female, estrogen receptor positive, unspecified laterality, unspecified site of breast (HCC) Procedures NM BONE WHOLE BODY BONE &/JOINT [place]AGING [place] [address] [address] [place] [phone] Molecular & Functional Imaging [address] [place] [address] Referral ID Status Reason Start Date Expiration Date Visits Requested Visits Authorized [id number] Authorized Auto-Generat ed Referral 06/08/2023 04/10/2024 2 2 [facility] for visit Narrative* Diagnostic Procedure Only (Routine) - Closed Specialty Diagnoses / Procedures Referred By Contac t Referred To Contact XR IMAGING Diagnoses Malignant neoplasm of breast in female, estrogen receptor positive, unspecified laterality, unspecified site of breast (HCC) Procedures XR THORACIC LIMITED 2V AP/LAT RADEX SPINE THORACIC 2 [place] [address] [phone] Xr Imaging [place] [address] Referral ID Status Reason Start Date Expiration Date V isits Requested Visits Authorized [id number] Closed Auto-Generate d Referral 10/26/2023 11/24/2024 1 1 [facility] for visit Narrative* Diagnostic Procedure Only (Routine) - Closed Specialty Diagnoses / Procedures Referred By Contac t Referred To Contact MOLECULAR & FUNCTIONAL IMAGING Diagnoses Malignant neoplasm of breast in female, estrogen receptor positive, unspecified laterality, unspecified site of breast (HCC) Procedures NM BONE WHOLE BODY BONE &/JOINT [place]ING [place] [address] [place] [address] Molecular & Functional Imaging [address] [place] [address] Referral ID Status Reason Start Date Expiration Date V isits Requested Visits Authorized [id number] Closed Auto-Generate d Referral 11/21/2023 04/10/2024 2 2 [facility] for visit Narrative* Diagnostic Procedure Only (Urgent) - Closed Specialty Diagnoses / Procedures [facility] Referred To Contact XR IMAGING Diagnoses Foot pain, right Procedures XR FOOT GENERAL 3V AP/LAT/OBL RIGHT RADEX FOOT COMPLETE MINIMUM 3 VIEWS Keshawn Hastings MD [address] [place] [address] [place] [address] Referral ID Status Reason Start Date Expiration Date V isits Requested Visits Authorized [id number] Closed Auto-Generate d Referral 11/29/2022 12/29/2023 1 1 [facility] for visit Narrative* Diagnostic Procedure Only (Routine) - Closed Specialty Diagnoses / Procedures Referred By Contac t Referred To Contact BR IMAGING Diagnoses Invasive ductal carcinoma of breast, left (HCC) Procedures US BREAST LTD LEFT US BREAST UNI REAL [place] [address] [place] [address] Br Imaging [address] [place] [address] Referral ID Status Reason Start Date Expiration Date V isits Requested Visits Authorized [id number] Closed Auto-Generate d Referral 12/23/2023 01/21/2025 1 1 [facility] for visit Narrative* Diagnostic Procedure Only (Urgent) - Closed Specialty Diagnoses / Procedures Referred By Contac t Referred To Contact XR IMAGING Diagnoses Right knee pain, unspecified chronicity Procedures XR KNEE GENERAL 4V AP BOTH/PA BOTH/LAT/MERC RIGHT RADIOLOGIC EXAM KNEE COMPLETE 4/MORE VIEWS Keshawn Hastings MD [address] [place] [address] [place] [address] Referral ID Status Reason Start Date Expiration Date V isits Requested Visits Authorized [id number] Closed Auto-Generate d Referral 09/30/2022 10/30/2023 1 1 [facility] for visit Narrative* Diagnostic Procedure Only (Urgent) - Closed Specialty Diagnoses / Procedures Referred By Contac t Referred To Contact XR IMAGING Diagnoses Hand pain, right Procedures XR HAND GENERAL 3V PA/LAT/OBL RIGHT RADEX HAND MINIMUM 3 VIEWS Froylan Dorsey APRN.BURRING WHEEL OPERATOR [address] [place] [address] [place] [address] Referral ID Status Reason Start Date Expiration Date V isits Requested Visits Authorized [id number] Closed Auto-Generate d Referral 09/01/2021 10/01/2022 1 1 [facility] for visit Narrative* Diagnostic Procedure Only (Routine) - Closed Specialty Diagnoses / Procedures Referred By Contac t Referred To Contact BR IMAGING Diagnoses Encounter for screening mammogram for breast cancer Procedures TERESE SCREENING W RAFY SCREENING DIGITAL BREAST TOMOSYNTHESIS BI SCREENING MAMMOGRAPHY BI 2-VIEW BREAST INC CAD Adriana Joya, HR RECRUITER.WINDER HELPER [address] [place] [address] Phone: tel: fax: BR IMAGING [address] [facility] [place] [address] Referral ID Status Reason Start Date Expiration Date V isits Requested Visits Authorized [id number] Closed Auto-Generate d Referral 06/12/2024 07/12/2025 1 1 [facility] for visit Narrative* Diagnostic Procedure Only (Routine) - Closed Specialty Diagnoses / Procedures Referred By Contac t Referred To Contact BR IMAGING Diagnoses Invasive ductal carcinoma of breast, left (HCC) Procedures US BREAST LTD LEFT US BREAST UNI REAL TIME WITH IMAGE LIMITED Adriana Joya, HR RECRUITER.WINDER HELPER [address] [place] [address] Phone: tel: fax: BR IMAGING [address] [place] [address] Referral ID Status Reason Start Date Expiration Date V isits Requested Visits Authorized [id number] Closed Auto-Generate d Referral 06/18/2024 07/18/2025 1 1 [facility] for visit Narrative* Diagnostic Procedure Only (Routine) - Closed Specialty Diagnoses / Procedures Referred By Contac t Referred To Contact BR IMAGING Diagnoses Breast asymmetry Procedures TERESE DIAG W RAFY RIGHT DIGITAL BREAST TOMOSYNTHESIS UNILATERAL DIAGNOSTIC MAMMOGRAPHY COMPUTER-AIDED DETCJ UNI Marty, Adriana, HR RECRUITER.WINDER HELPER [address] [place] [address] Phone: tel: fax: BR IMAGING [address] [place] [address] Referral ID Status Reason Start Date Expiration Date V isits Requested Visits Authorized [id number] Closed Auto-Generate d Referral 06/18/2024 07/18/2025 1 1 [facility] for visit Narrative* MRI/CT (Routine) - Closed Specialty Diagnoses / Procedures Referred By Harleenac t Referred To Contact CT IMAGING Diagnoses Malignant neoplasm of breast in female, estrogen receptor positive, unspecified laterality, unspecified site of breast (HCC) Procedures CT CHEST W IVCON DIAGNOSTIC COMPUTED TOMOGRAPHY THORAX W/CONTRAST Heriberto Disla MD [address] [place] [address] Phone: tel: CT IMAGING [facility] Referral ID Status Reason Start Date Expiration Date V isits Requested Visits Authorized [id number] Closed Auto-Generate d Referral 08/01/2024 08/31/2025 1 1 [facility] for visit Narrative* Diagnostic Procedure Only (Routine) - Closed Specialty Diagnoses / Procedures Referred By Contac t Referred To Contact MOLECULAR & FUNCTIONAL IMAGING Diagnoses Malignant neoplasm of breast in female, estrogen receptor positive, unspecified laterality, unspecified site of breast (HCC) Procedures NM BONE WHOLE BODY BONE &/JOINT IMAGING WHOLE BODY Heriberto Disla MD [address] [place] [address] Phone: tel: Molecular Imaging [address] [place] [address] Phone: tel: Referral ID Status Reason Start Date Expiration Date V isits Requested Visits Authorized [id number] Closed Auto-Generate d Referral 08/01/2024 08/31/2025 1 1 [facility] Discharge Instructions * Instructions* Nicole Toledo [...] be sent through Care Everywhere. 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 Coordinator Expl anation Advance Directives and Livin g Will 08/26/2019 3:40 AM Documents on File Type Date Recorded Patient Borough Coordinator Expl anation Advance Directives and Livin g Will 08/20/2019 8:36 PM Advance Directive Response Recorded Date/ Time Advance Directives No May 14, 2016 8:49am Living Will No June 02, 4:48pm Power of Pathology Laboratory Director No June 02, 2021 4:48pm Advance Directive Response Recorded Date/ Time Advance Directives No May 14, 2016 7:49am Living Will No May 10 11:57am Power of Pathology Laboratory Director No May 10, 2022 11:57am Advance Directive Response Recorded Date/ Time Advance Directives No May 14, 2016 7:49am Living Will No June 10, 2022 10:48pm Power of Pathology Laboratory Director No June 10 10:48pm Advance Directive Response Recorded Date/ Time Advance Directives No May 14, 2016 8:49am Living Will No June 10, 2022 11:48pm Power of Pathology Laboratory Director No June 10 11:48pm Advance Directive Response Recorded Date/ Time Advance Directives No May 14, 2016 8:49am Living Will No December 14 3:47pm Power of Pathology Laboratory Director No December 14, 2022 3:47pm Advance Directive Response Recorded Date/ Time Advance Directives No May 14, 2016 7:49am Living Will No January 15 8:40am Power of Pathology Laboratory Director No January 15 8:40am Advance Directive Response Recorded Date/ Time Advance Directives No May 14, 2016 8:49am Living Will No January 15 9:40am Power of Pathology Laboratory Director No January 15 9:40am Advance Directive Response Recorded Date/ Time Living Will No March 23, 024 10:28pm Do you have a Healthcare Power of Pathology Laboratory Director? No March 23, 2024 10:28pm Advance Directives No May 14, 2016 8:49am Advance Directive Response Recorded Date/ Time Living Will No January 15 9:40am Do you have a Healthcare Power of Pathology Laboratory Director? No January 15, 2023 9:40am Do you have a Healthcare Power of Pathology Laboratory Director? No September 09, 2024 2:16pm Advance Directives No May 14, 2016 8:49am Advance Directive Response Recorded Date/ Time Living Will No January 15 9:40am Do you have a Healthcare Power of Pathology Laboratory Director? No January 15, 2023 9:40am Do you have a Healthcare Power of Pathology Laboratory Director? No September 09, 2024 2:16pm Do you have a Healthcare Power of Pathology Laboratory Director? No October 09, 2024 12:05pm Advance Directives No May 14, 2016 8:49am Summary Purpose Family History No Family History Records Found Relationship Condition Age at Onset Recorded Date/T juan manuel Not Specified History of blood clots Unknown Arthritis Unknown Anxiety and depression Unknown Hypertension Unknown sister Malignant neoplasm of breast Unknown mother Cardiac disease Unknown Cardiomegaly Unknown History of coronary artery bypass surgery Unknown Rheumatoid arthritis Unknown grandmother Cardiomegaly Unknown father Diabetes mellitus Unknown Chief Complaint and Reason for Visit Chief Complaint 1 Y FU COUGH, HEADACHE, SORE THROAT COVID COVID COVID COVID COVID HR dropping (post COVID) [facility]A ON EXERTION Hospital FU CAD Coronary artery disease update HPI ABNORMAL NUC STRESS, CHEST PAIN, ORTIZ CHEST PAIN CHEST PAIN CHEST PAIN CHEST PAIN CHEST PAIN CHEST PAIN 6 wk FU/med changes per PFM 3 M FU Reason for Visit Asthma Obesity (BMI 30.0-34.9) Essential hypertension GERD (gastroesophageal reflux disease) Hypokalemia Essential hypertension Chest pain Asthma Essential hypertension Unstable angina Essential hypertension GERD (gastroesophageal reflux disease) Chest pain 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y artery without angina pectoris Essential hypertension Asthma Chief Complaint 1 Y FU COUGH, HEADACHE, SORE THROAT COVID COVID COVID COVID COVID HR dropping (post COVID) DYSPNEA ON EXERTION Hospital FU CAD Coronary artery disease update HPI ABNORMAL NUC STRESS, CHEST PAIN, ORTIZ CHEST PAIN CHEST PAIN CHEST PAIN CHEST PAIN CHEST PAIN CHEST PAIN 6 wk FU/med changes per PFM 3 M FU STOOL Reason for Visit Asthma Obesity (BMI 30.0-34.9) Essential hypertension GERD (gastroesophageal reflux disease) Hypokalemia Essential hypertension Chest pain Asthma Essential hypertension Unstable angina Essential hypertension GERD (gastroesophageal reflux disease) Chest pain 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y artery without angina pectoris Essential hypertension Asthma Chief Complaint COVID COVID COVID COVID HR dropping (post COVID) DYSPNEA ON EXERTION Hospital FU CAD Coronary artery disease update HPI ABNORMAL NUC STRESS, CHEST PAIN, ORTIZ CHEST PAIN CHEST PAIN CHEST PAIN CHEST PAIN CHEST PAIN CHEST PAIN 6 wk FU/med changes per PFM 3 M FU STOOL E ORDER Reason for Visit Essential hypertensi on GERD (gastroesophageal reflux disease) Hypokalemia Essential hypertension Chest pain Asthma Essential hypertension Unstable angina Essential hypertension GERD (gastroesophageal reflux disease) Chest pain 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y artery without angina pectoris Essential hypertension Asthma Chief Complaint 4 M FU abd Reason for Visit Atherosclerotic hear t disease of [place] coronary artery without angina pectoris Hyperlipidemia Essential hypertension Chief Complaint 4 M FU abd COLD Reason for Visit Atherosclerotic hear t disease of [place] coronary artery without angina pectoris Hyperlipidemia Essential hypertension Chief Complaint 6 M FU ASTHMA Asthma 1 y fu PREV PFM PT Reason for Visit Asthma Chief Complaint ASTHMA Asthma 1 y fu PREV PFM PT LEG Reason for Visit Atherosclerotic hear t disease of [place] coronary artery without angina pectoris Hyperlipidemia Essential hypertension Chief Complaint ASTHMA Asthma 1 y fu PREV PFM PT LEG RIGHT HIP INJECTION Reason for Visit Atherosclerotic hear t disease of [place] coronary artery without angina pectoris Hyperlipidemia Essential hypertension Chief Complaint dizziness, headache, sob 4 M FU/PREV PFM E-ORDER Reason for Visit Aortic valve scleros is Coronary artery disease Dyslipidemia Essential hypertension Chief Complaint 4 M FU/PREV PFM E-ORDER Near syncope and bradycardia CAD ASHD Reason for Visit Aortic valve scleros is Coronary artery disease Dyslipidemia Essential hypertension Chief Complaint Admit Date gen illness March 23, 2024 9:13pm DYSPHASIA *12MM TABLET* June 18, 2024 8:45am Chief Complaint Admit Date DYSPHASIA *12MM TABLET* June 18, 2024 8:45am 6 M FU August 09, 2024 11:09a m HEADACHE September 09, 2024 1:21p m Reason for Visit Admit Date Asthma August 09, 2024 11:09a m Chief Complaint Admit Date DYSPHASIA *12MM TABLET* June 18, 2024 8:45am 6 M FU August 09, 2024 11:09a m HEADACHE September 09, 2024 1:21p m WEAKNESS October 09, 2024 11:17 am Chief Complaint Admit Date 6 M FU August 09, 2024 11:09a m HEADACHE September 09, 2024 1:21p m WEAKNESS October 09, 2024 11:17 am 1 Y FU December 04, 2024 2: 40pm Health Concerns Infection Onset Date Last Indicated [...] [facility] Referred To Contact MR IMAGING Diagnoses 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, left (HCC) Procedures MRI 3D POST PROCESSING 3D RENDERING W/INTERP&POSTPROC DIFF WORK STATION Gregg Bea MD [address] [place] [address] Mr Imaging [place] [address] Referral ID Status Reason Start Date Expiration Date Visits Requested Visits Authorized [id number] Pending Review Auto-Generat ed Referral 3 04/07/2024 1 1 Specialty Diagnoses / Procedures [facility] Referred To Contact MR IMAGING Diagnoses 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, left (HCC) Procedures MRI BREAST WO/W IVCON BILATERAL MRI BREAST WITHOUT&WITH CONTRAST W/CAD BILATERAL Gregg Bae MD [address] [place] [address] Mr Imaging [place] [address] Referral ID Status Reason Start Date Expiration Date Visits Requested Visits Authorized [id number] Authorized Auto-Generat ed Referral 3 04/07/2024 1 1 Specialty Diagnoses / Procedures Referred By [facility] Referred To Contact Oncology Diagnoses 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, left (HCC) Procedures CONSULT TO ONCOLOGY OFFICE/OUTPATIENT [facility] 60-74 MINUTES Gregg Bae MD [address] [place] [address] Referral ID Status Reason Start Date Expiration Date Visits Requested Visits Authorized [id number] Authorized PCP Requested Referral 3 03/08/2024 1 1 Specialty Diagnoses / Procedures [facility] Referred To Contact Diagnoses 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, left (HCC) Procedures CONSULT TO MEDICAL GENETICS - CANCER Gregg Bae MD [address] [place] [address] [facility] - [address] [place] [address] Referral ID Status Reason Start Date Expiration Date Visits Requested Visits Authorized [id number] Ref Not Required PCP Requested Referral 3 03/08/2024 1 1 Additional Source Comments Reason for Visit (unrecogniz ed section and content) Reason Comments Non-Chemotherapy Treatment Specialty Diagnoses / Procedures Referred By Contac t Referred To Contact Diagnoses Invasive ductal carcinoma of breast, left (HCC) Procedures INJECTION, ZOLEDRONIC ACID, 1 [place] [address] [place] [phone] [facility] [address] [place] [address] Referral ID Status Reason Start Date Expiration Date V isits Requested Visits Authorized [id number] Authorized 07/05/2023 04/10/2024 99 99 Reason Comments Established Patient Follow Up Reason Comments Established Patient Specialty Diagnoses / Procedures Referred By Contac t Referred To Contact Diagnoses Invasive ductal carcinoma of breast, left (HCC) Procedures INJECTION, ZOLEDRONIC ACID, 1 [place] [address] [place] [phone] [facility] [address] [place] [address] Reason Comments Cough Headache Reason Comments Emesis Shortness of Breath Cough Reason Comments Cough Shortness of Breath Reason Comments Imm/Inj Reason Comments Nasal Congestion sinus, cough, BOO, di zziness, right ear pain x 4 [...] REAL TIME W/IMAGE LIMITED Ilya Monroe MD [address] [place] [address] Us Imaging Referral ID Status Reason Start Date Expiration Date V isits Requested Visits Authorized [id number] Closed Auto-Generate d Referral 09/30/2021 10/29/2022 1 [...] Referred By Radha fontanez Referred To Contact Ophthalmology / OPHTHALMOLOGY Diagnoses Cataracts, bilateral CATARACTS- BOTH EYES Procedures OFFICE/OUTPATIENT NEW HIGH MDM 60-74 MINUTES OFFICE/OUTPATIENT ESTABLISHED HIGH MDM 40-54 MIN NEW ADULT Ilya Monroe MD [address] [place] [address] Milton Giraldo MD [address] [place] [address] Referral ID Status Reason Start Date Expiration Date V isits Requested Visits Authorized [id number] Authorized 02/22/2022 04/10/2022 99 99 Reason Comments [...] Referred By Radha fontanez Referred To Contact Optometry / OPHTHALMOLOGY Diagnoses Possible Eye infection post op Procedures EST ADULT Self Madina Scott, OD [address] [place] [address] Referral ID Status Reason Start Date Expiration Date V isits Requested Visits Authorized [id number] Authorized 07/23/2022 04/10/2023 99 99 Reason Comments Post-op (Ophthalmology) Left Eye s/p cat aract extraction with intraocular lens implantation left eye 06/22/22 Reason Comments Post-op (Ophthalmology) Left Eye -s/p ca taract extraction with intraocular lens implantation left eye 06/22/22 Reason Comments F/U 6 Month 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 Comments 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 Reason Comments Follow Up 6 weeks [...] ORTH/SPORTS Self Sowmya Beard PA-C [address] [place] [address] Referral ID Status Reason Start Date Expiration Date V isits Requested Visits Authorized [id number] Closed Financial Clearance Required - OON Payor 12/02/2022 04/10/2023 1 1 Reason Comments Consult Biopsy left breast a nd axilla Specialty Diagnoses / Procedures Referred By Contac t Referred To Contact General Surgery / GENERAL SURGERY Diagnoses biopsy consultation left axilla lymphadenopathy Procedures EST DDI BREAST Self Concetta Fang MD [address] [place] [address] Referral ID Status Reason Start Date Expiration Date Visits Re quested Visits Authorized [id number] Closed 01/17/2023 04/10/2023 1 1 Reason Comments Patient Question Reason Comments Cough sore throat and righ t ear pain, chills x 4-5 days Reason Comments Follow Up Left axilla stereota ctic biopsy results Specialty Diagnoses / Procedures Referred By Contac t Referred To Contact GENERAL SURGERY Diagnoses Encounter for follow-up examination after completed treatment for conditions other than malignant neoplasm Follow up Procedures OFFICE/OUTPATIENT ESTABLISHED HIGH MDM 40-54 MIN EST DDI PATIENT Ilya Monroe MD [address] [place] [address] Concetta Fang MD [address] [place] [address] Referral ID Status Reason Start Date Expiration Date V isits Requested Visits Authorized [id number] Authorized 02/07/2023 04/10/2023 99 99 Reason Comments post BX Left axilla Results A. Lymph node, left axillary, biopsy:- Metastatic carcinoma, consistent with breast primary Specialty Diagnoses / Procedures Referred By Contac t Referred To Contact General Surgery / GENERAL SURGERY Diagnoses Metastatic breast cancer to Left axillary lymph node Procedures OFFICE/OUTPATIENT NEW MODERATE MDM 45-59 MINUTES NEW PATIENT Concetta Fang MD [address] [place] [address] Gregg Bae MD [address] [place] [address] Referral ID Status Reason Start Date Expiration Date Visits Re quested Visits Authorized [id number] Closed 04/11/2022 04/10/2023 1 1 Reason Comments New Patient Specialty Diagnoses / Procedures [facility] Referred To Contact MR IMAGING Diagnoses 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, left (HCC) Procedures MRI BREAST WO/W IVCON BILATERAL MRI BREAST WITHOUT&WITH CONTRAST W/CAD BILATERAL Gregg Bae MD [address] [place] [address] Mr Imaging [facility] Referral ID Status Reason Start Date Expiration Date V isits Requested Visits Authorized [id number] Closed Auto-Generate d Referral 03/09/2023 04/07/2024 1 1 Reason Comments Patient Navigation Reason Comments Consult Specialty Diagnoses / Procedures [facility] Referred To Contact Radiation Oncology / RADIATION ONCOLOGY Diagnoses 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) 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 BREAST 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/REF GREGG BAE* Procedures NEW/CON NEVER TREATED@[facility] Gregg Bae MD [address] [place] [address] Eveline Griffin MD, [address] [place] [address] Referral ID Status Reason Start Date Expiration Date V isits Requested Visits Authorized [id number] Authorized 03/22/2023 04/10/2023 99 99 Reason Comments Follow Up Reason Comments Symptoms Reason Comments Established Patient Specialty Diagnoses / Procedures Referred By Contac t Referred To Contact Hematology/Oncology / HEMATOLOGY/ONCOLOGY Diagnoses Encounter for follow-up examination after completed treatment for conditions other than malignant neoplasm OV-See phone note 06/01* Procedures OFFICE/OUTPATIENT ESTABLISHED HIGH MDM 40 MIN OFFICE/OUTPATIENT ESTABLISHED MOD MDM 30 MIN OFFICE/OUTPATIENT ESTABLISHED LOW MDM 20 MIN OFFICE/OUTPATIENT ESTABLISHED SF MDM 10 MIN [place] [address] [place] [address] Referral ID Status Reason Start Date Expiration Date Visits Re quested Visits Authorized [id number] Closed 06/02/2023 04/10/2024 1 1 Specialty Diagnoses / Procedures Referred By Contac t Referred To Contact CT IMAGING Diagnoses Malignant neoplasm of breast in female, estrogen receptor positive, unspecified laterality, unspecified site of breast (HCC) Procedures CT ABD/PEL W IVCON CT ABD & PELVIS W/[place] [phone] Imaging [facility] Referral ID Status Reason Start Date Expiration Date V isits Requested Visits Authorized [id number] Closed Auto-Generate d Referral 06/08/2023 07/07/2024 [address] Specialty Diagnoses / Procedures Referred By Contac t Referred To Contact CT IMAGING Diagnoses Malignant neoplasm of breast in female, estrogen receptor positive, unspecified laterality, unspecified site of breast (HCC) Procedures CT ABD/PEL W IVCON CT ABD & PELVIS W/[place] [address] [place] [address] [place] [address] Reason Comments Radiology NM Specialty Diagnoses / Procedures Referred By Contac t Referred To Contact Nuclear Medicine / RADIO NUC MED [facility] Diagnoses Malignant neoplasm of breast in female, estrogen receptor positive, unspecified laterality, unspecified site of breast (HCC) [C50.919, Z17.0] Procedures WHOLE [place] [address] [place] [address] Radio Nuc Med [facility] [address] [place] [address] Referral ID Status Reason Start Date Expiration Date Visits Re quested Visits Authorized [id number] Closed 06/23/2023 09/21/2023 1 1 Reason Comments Established Patient Specialty Diagnoses / Procedures Referred By Contac t Referred To Contact Hematology/Oncology / HEMATOLOGY/ONCOLOGY Diagnoses OV / CT BONE SCAN 06/22 [place] [address] [place] [address] [place] [address] [place] [address] Referral ID Status Reason Start Date Expiration Date Visits Re quested Visits Authorized [id number] Closed 07/05/2023 04/10/2024 1 1 Reason Onset Date Comments SPP Oral Oncology/hematology - Treatment Referra l 07/06/2023 Ibrance Insurance Authorization 07/06/2023 Pending PA Submission Reason Comments Forms Reason Comments Care Coordination Reason Onset Date Comments Refill Request 08/22/2023 Specialty Diagnoses / Procedures Referred By Contac t Referred To Contact Hematology/Oncology / HEMATOLOGY/ONCOLOGY Diagnoses OV / CT BONE SCAN 06/22 [place] [address] [place] [phone] [place] [address] [place] [phone] Reason Comments AVS 10/26/23 Reason Comments Benefits Investigation Reason Comments Comprehensive Health Assessment Specialty Diagnoses / Procedures Referred By Radha t Referred To Contact Optometry / OPHTHALMOLOGY Diagnoses Encounter for follow-up examination after completed treatment for conditions other than malignant neoplasm 8 month f/u Procedures OFFICE/OUTPATIENT ESTABLISHED HIGH MDM 40 MIN EST ADULT Ilya Monroe MD [address] [place] [address] Madina Scott, OD [address] [place] [address] Referral ID Status Reason Start Date Expiration Date Visits Re quested Visits Authorized [id number] Closed 10/11/2023 04/10/2024 1 1 Reason Onset Date Comments Community Monitoring Outreach 12/15/2023 Specialty Diagnoses / Procedures Referred By Radha t Referred To Contact Hematology/Oncology / HEMATOLOGY/ONCOLOGY Diagnoses Encounter for follow-up examination after completed treatment for conditions other than malignant neoplasm OV PER 10/26 TE* Procedures OFFICE/OUTPATIENT ESTABLISHED SF MDM 10 MIN OFFICE/OUTPATIENT ESTABLISHED LOW MDM 20 MIN OFFICE/OUTPATIENT ESTABLISHED MOD MDM 30 MIN OFFICE/OUTPATIENT ESTABLISHED HIGH MDM 40 [place] [address] [place] [address] [place] [address] [place] [address] Referral ID Status Reason Start Date Expiration Date V isits Requested Visits Authorized [id number] Authorized 11/24/2023 04/10/2024 1 99 Reason Comments Sinus Problem sinus pressure, drai nage, chest congestion, cough, bodyaches x 5 days Reason Comments Refill Request Reason Comments 2024 Ibrance Assistance Renewal Reason Comments URI Reason Onset Date Comments Counselor Camp- Other 05/03/2024 [facility] screening Reason Comments Behavioral Health/Social Work Referral ID Status Reason Start Date Expiration Date V isits Requested Visits Authorized [id number] Authorized 07/05/2023 04/10/2025 99 99 Specialty Diagnoses / Procedures Referred By Radha t Referred To Contact Hematology/Oncology / HEMATOLOGY/ONCOLOGY Diagnoses OV/LAB&CHEMO TODAY* abramovich Procedures EST PATIENT W/CHEMO Abramovich, [place] [address] [facility] [address] Chandrakant [place] [address] Referral ID Status Reason Start Date Expiration Date V isits Requested Visits Authorized [id number] New Request 05/09/2024 08/07/2024 1 1 Reason Comments Results Orders Reason Onset Date Comments Results, Lab 05/21/2024 Reason Comments Express Care follow-up Reason Comments Sore Throat Cough Reason Onset Date Comments Results 06/05/2024 Reason Comments Medicare Wellness Exam Reason Comments Spirometry Specialty Diagnoses / Procedures Referred By Contac t Referred To Contact [facility] Diagnoses Asthma Procedures SPIROMETRY - BASELINE AND POST DILATOR BRNCDILAT RSPSE SPMTRY PRE&POST-BRNCDILAT ADMN Adriana Joya, HR RECRUITER.[address] [address] Phone: tel: fax: [facility] [place] [address] [place] [address] Referral ID Status Reason Start Date Expiration Date V isits Requested Visits Authorized [id number] Closed Auto-Generate d Referral 06/12/2024 07/12/2025 1 1 Reason Onset Date Comments Results 06/18/2024 Reason Onset Date Comments Results 06/18/2024 Specialty Diagnoses / Procedures Referred By Contac t Referred To Contact [facility] Diagnoses Asthma, unspecified asthma severity, unspecified whether complicated, unspecified whether persistent Procedures LUNG VOLUMES Adriana Joya, HR RECRUITER.WINDER HELPER [address] [place] [address] Phone: tel: fax: [facility] [place] [address] [place] [address] Referral ID Status Reason Start Date Expiration Date V isits Requested Visits Authorized [id number] Closed Auto-Generate d Referral 06/19/2024 04/10/2025 1 1 Reason Comments Social Work Services Reason Onset Date Comments Results 07/06/2024 Reason Comments Medication Request Reason Comments Patient Update Urine Reason Comments Urinary Problem Reason Comments Radiology NM Specialty Diagnoses / Procedures Referred By Contac t Referred To Contact MOLECULAR & FUNCTIONAL IMAGING Diagnoses Malignant neoplasm of breast in female, estrogen receptor positive, unspecified laterality, unspecified site of breast (HCC) Procedures NM BONE WHOLE BODY BONE &/JOINT IMAGING WHOLE BODY Heriberto Disla MD [address] [place] [address] Phone: tel: Molecular Imaging [address] [place] [address] Phone: tel: Referral ID Status Reason Start Date Expiration Date V isits Requested Visits Authorized [id number] Closed Auto-Generate d Referral 08/01/2024 08/31/2025 1 1 Reason Onset Date Comments Results 06/22/2024 Reason Onset Date Comments Results 08/20/2024 Reason Onset Date Comments SPP Oral Oncology/hematology - Medication Refill 09/07/2024 Ibrance 100mg Insurance Authorization 09/07/2024 ADELAIDA Berg ng Reason Comments Headache off and on x 1 week, right side Reason Onset Date Comments Results 09/12/2024 Reason Comments Medication Question Reason Comments Anxiety Reason Onset Date Comments Refill Request 09/21/2024 Reason Comments Consult Blood In Urine Burning with urination Specialty Diagnoses / Procedures [facility] Referred To Contact Urology Diagnoses Hematuria, unspecified type Procedures CONSULT TO UROLOGY OFFICE/OUTPATIENT [facility] 60 MINUTES Preet Mares APRN.BURRING WHEEL OPERATOR [address] [place] [address] Phone: tel: fax: Referral ID Status Reason Start Date Expiration Date V isits Requested Visits Authorized [id number] Closed PCP Requested Referral 08/17/2024 08/17/2025 1 1 Reason Comments Medication Follow-up Reason Comments Vaginal Problem Reason Comments Opened In Error Reason Comments Sore Throat Right ear pain, coug h, mucus, runny nose x 3 days Reason Onset Date Comments Results 10/16/2024 Reason Onset Date Comments SPP Oral Oncology/hematology - Medication Refill 10/24/2024 Ibrance 75mg SPP Oral Oncology/hematology - No-go 10/24/2024 KO to [employer] Specialty Diagnoses / Procedures [facility] Referred To Contact Diagnoses Invasive ductal carcinoma of breast, left (HCC) Procedures INJECTION, ZOLEDRONIC ACID, 1 MG Abramovich, Heriberto, MD [address] [place] [address] Phone: tel: Heriberto Disla MD [address] [place] [address] Phone: tel: Referral ID Status Reason Start Date Expiration Date V isits Requested Visits Authorized [id number] Authorized 08/01/2024 04/10/2025 99 99 Reason Onset Date Comments Refill Request 10/24/2024 Reason Comments Yearly Exam Peggy Jaime RN - 08/24/2019 1:18 AM EDTPeggy Jaime RN - 08/23/2019 10:15 PM Nicole Peguero CNP - 08/23/2019 10:08 PM JEDTPeggy Jaime RN - 08/23/2019 10:06 PM EDT ED Notes (unrecognized secti on and content) Patient calls grand daughter for ride home. Special isolation precautions are in place with signage outside this patient's room. This rn intensive care unit performs hand hygiene and enters the patient room wearing: ? gloves ? an appropriately fitting (N-95, PAPR, Aura) mask ? face shield ? protective gown to provide care. See documentation for the care provided. [facility] ED TERESA Note: NAME: Darling Florez 63 y.o. CSN: [id number] PCP: Ilya Monroe MD History: Chief Complaint: Cough and Headache HPI: The history was obtained from the patient. Darling is a 63 y.o. female who presents [...] file Gets together: Not on file Attends druze service: Not on file Active member of [...] Procedure Abnormality Status --------- ------ CBC Auto Differential[[id number]] Abnormal Final result Please view results for these tests on the individual orders. XR Chest 1 View Final Result No acute cardiopulmonary disease. Workstation ID: [id number] MDM: Special isolation precautions are in place with signage outside this patient's room. This INTERNATIONAL LOGISTICS ANALYST performs hand hygiene and enters the patient [...] . IAN Bell ED Advanced Practice Provider [facility] Emergency Department (Please note that portions of [...] with signage outside this patient's room. This rn intensive care unit performs hand hygiene and enters the patient [...] and it being negative ED PROVIDER NOTE [facility] EMERGENCY DEPARTMENT NAME: Darling Florez AGE: 63 y.o. : 1955 VISIT DATE: 08/26/2019 CSN: [id number] PCP: Ilya Monroe MD Chief Complaint Patient [...] of breath reported. Denies previous history of [place] PE pneumothorax. Past Medical History: Diagnosis Date [...] file Gets together: Not on file Attends druze service: Not on file Active member of [...] View Preliminary Result No acute cardiopulmonary abnormality. [employer] Workstation ID: [id number] Procedures [facility] Patient is a 64-year-old female history of asthma presents to the ED with complaint of acute asthma exacerbation with wheezing coughing event for few days today. Patient was recently tested for COVID which was unremarkable patient history exam consistent with acute asthma exacerbation for which further work-up has been initiated loading a [employer]Med[employer] basic lab and a chest x-ray for [...] with signage outside this patient's room. This rn intensive care unit performs hand hygiene and enters the patient [...] cannot say for sure. ED PROVIDER NOTE [facility] EMERGENCY DEPARTMENT NAME: Darling Florez AGE: 63 y.o. : 1955 VISIT DATE: 08/20/2019 CSN: [id number] PCP: Ilya Monroe MD Chief Complaint Patient presents with Cough Shortness of Breath This is a 64-year-old -Fijian lady with history of bronchial asthma who [...] file Gets together: Not on file Attends druze service: Not on file Active member of [...] 2145 (!) 157/74 73 16 99 % 08/20/19 2115 147/67 63 (!) 20 99 % 08/20/191939 [...] View Final Result No acute cardiopulmonary disease. [employer] Workstation ID: [id number] Procedures MDM Number of [...] Disposition ED Disposition Condition Comment Discharge Stable Darling Grazyna Gautam discharged to home/self care in stable condition. Follow-up Information Follow-up information has not been specified. Contact information for after-discharge care Follow-up information has not been specified. Jamaal Irvin MD 08/20/19 2214 documented in this encounter ED Attestation Note - Tino Rousseau MD - 08/24/2019 1:15 AM EDTQuick Note - Gregg Liu TECHNOLOGIST - 08/23/2019 11:59 PM EDT Miscellaneous Notes (unrecog nized section and content) ED Attestation: I was personally available for consult in the emergency department. I have reviewed the chart and agree with the documentation as recorded by the TERESA (Advanced Practice Provider), including the assessment, treatment plan, and disposition Special isolation precautions are in place with signage outside this patient's room. [id number] performs hand hygiene and enters the patient room wearing: gloves an appropriately fitting (N-95, PAPR, Aura) mask face shield protective gown to obtain xray. [id number] remains clean outside room and sanitizes all xray equipment used to obtain xray documented in this encounter Szi482bohx/gloves Rfx476dvlo/gloves Pt had mask documented in this encounter Pat381: mask/gloves Ssx440: mask/gloves Ran & cleaned equipment Pt had mask documented in this encounter INFORMATION SOURCE (unrecogn ized section and content) DATE CREATED AUTHOR 08/31/2019 [facility] DATE CREATED AUTHOR AUTHOR'S ORGANIZ ATION 10/21/2021 [facility] DATE CREATED AUTHOR AUTHOR'S ORGANIZ ATION 11/13/2023 [facility] DATE CREATED AUTHOR AUTHOR'S ORGANIZ ATION 02/17/2025 [facility] DATE CREATED AUTHOR AUTHOR'S ORGANIZ ATION 02/22/2025 [facility] Source Comments (unrecognize d section and content) In the event this informatio n is protected by the Federal Confidentiality of Alcohol and Drug Abuse Patient Records regulations: The Federal rules restrict any use of the information to criminally investigate or prosecute any alcohol or drug abuse patient.[facility] the event this information is protected by the Federal Confidentiality of Alcohol and Drug Abuse Patient Records regulations: The Federal rules restrict any use of the information to criminally investigate or prosecute any alcohol or drug abuse patient.[facility] Hospital[facility] the event this information is protected by the Federal Confidentiality of Alcohol and Drug Abuse Patient Records regulations: The Federal rules restrict any use of the information to criminally investigate or prosecute any alcohol or drug abuse patient.[facility] Hospital[facility] the event this information is protected by the Federal Confidentiality of Alcohol and Drug Abuse Patient Records regulations: The Federal rules restrict any use of the information to criminally investigate or prosecute any alcohol or drug abuse patient.[facility] HospitalIn the event this information is protected by the Federal Confidentiality of Alcohol and Drug Abuse Patient Records regulations: The Federal rules restrict any use of the information to criminally investigate or prosecute any alcohol or drug abuse patient.[facility] HospitalIn the event this information is protected by the Federal Confidentiality of Alcohol and Drug Abuse Patient Records regulations: The Federal rules restrict any use of the information to criminally investigate or prosecute any alcohol or drug abuse patient.[facility] HospitalIn the event this information is protected by the Federal Confidentiality of Alcohol and Drug Abuse Patient Records regulations: The Federal rules restrict any use of the information to criminally investigate or prosecute any alcohol or drug abuse patient.[facility] HospitalIn the event this information is protected by the Federal Confidentiality of Alcohol and Drug Abuse Patient Records regulations: The Federal rules restrict any use of the information to criminally investigate or prosecute any alcohol or drug abuse patient.[facility] HospitalIn the event this information is protected by the Federal Confidentiality of Alcohol and Drug Abuse Patient Records regulations: The Federal rules restrict any use of the information to criminally investigate or prosecute any alcohol or drug abuse patient.[facility] HospitalIn the event this information is protected by the Federal Confidentiality of Alcohol and Drug Abuse Patient Records regulations: The Federal rules restrict any use of the information to criminally investigate or prosecute any alcohol or drug abuse patient.[facility] HospitalIn the event this information is protected by the Federal Confidentiality of Alcohol and Drug Abuse Patient Records regulations: The Federal rules restrict any use of the information to criminally investigate or prosecute any alcohol or drug abuse patient.[facility] HospitalIn the event this information is protected by the Federal Confidentiality of Alcohol and Drug Abuse Patient Records regulations: The Federal rules restrict any use of the information to criminally investigate or prosecute any alcohol or drug abuse patient.[facility] HospitalIn the event this information is protected by the Federal Confidentiality of Alcohol and Drug Abuse Patient Records regulations: The Federal rules restrict any use of the information to criminally investigate or prosecute any alcohol or drug abuse patient.[facility] HospitalIn the event this information is protected by the Federal Confidentiality of Alcohol and Drug Abuse Patient Records regulations: The Federal rules restrict any use of the information to criminally investigate or prosecute any alcohol or drug abuse patient.[facility] HospitalIn the event this information is protected by the Federal Confidentiality of Alcohol and Drug Abuse Patient Records regulations: The Federal rules restrict any use of the information to criminally investigate or prosecute any alcohol or drug abuse patient.[facility] HospitalIn the event this information is protected by the Federal Confidentiality of Alcohol and Drug Abuse Patient Records regulations: The Federal rules restrict any use of the information to criminally investigate or prosecute any alcohol or drug abuse patient.[facility] HospitalIn the event this information is protected by the Federal Confidentiality of Alcohol and Drug Abuse Patient Records regulations: The Federal rules restrict any use of the information to criminally investigate or prosecute any alcohol or drug abuse patient.[facility] HospitalIn the event this information is protected by the Federal Confidentiality of Alcohol and Drug Abuse Patient Records regulations: The Federal rules restrict any use of the information to criminally investigate or prosecute any alcohol or drug abuse patient.[facility] HospitalIn the event this information is protected by the Federal Confidentiality of Alcohol and Drug Abuse Patient Records regulations: The Federal rules restrict any use of the information to criminally investigate or prosecute any alcohol or drug abuse patient.[facility] HospitalIn the event this information is protected by the Federal Confidentiality of Alcohol and Drug Abuse Patient Records regulations: The Federal rules restrict any use of the information to criminally investigate or prosecute any alcohol or drug abuse patient.[facility] HospitalIn the event this information is protected by the Federal Confidentiality of Alcohol and Drug Abuse Patient Records regulations: The Federal rules restrict any use of the information to criminally investigate or prosecute any alcohol or drug abuse patient.[facility] HospitalIn the event this information is protected by the Federal Confidentiality of Alcohol and Drug Abuse Patient Records regulations: The Federal rules restrict any use of the information to criminally investigate or prosecute any alcohol or drug abuse patient.[facility] HospitalIn the event this information is protected by the Federal Confidentiality of Alcohol and Drug Abuse Patient Records regulations: The Federal rules restrict any use of the information to criminally investigate or prosecute any alcohol or drug abuse patient.[facility] HospitalIn the event this information is protected by the Federal Confidentiality of Alcohol and Drug Abuse Patient Records regulations: The Federal rules restrict any use of the information to criminally investigate or prosecute any alcohol or drug abuse patient.[facility] HospitalIn the event this information is protected by the Federal Confidentiality of Alcohol and Drug Abuse Patient Records regulations: The Federal rules restrict any use of the information to criminally investigate or prosecute any alcohol or drug abuse patient.[facility] HospitalIn the event this information is protected by the Federal Confidentiality of Alcohol and Drug Abuse Patient Records regulations: The Federal rules restrict any use of the information to criminally investigate or prosecute any alcohol or drug abuse patient.[facility] HospitalIn the event this information is protected by the Federal Confidentiality of Alcohol and Drug Abuse Patient Records regulations: The Federal rules restrict any use of the information to criminally investigate or prosecute any alcohol or drug abuse patient.[facility] HospitalIn the event this information is protected by the Federal Confidentiality of Alcohol and Drug Abuse Patient Records regulations: The Federal rules restrict any use of the information to criminally investigate or prosecute any alcohol or drug abuse patient.[facility] HospitalIn the event this information is protected by the Federal Confidentiality of Alcohol and Drug Abuse Patient Records regulations: The Federal rules restrict any use of the information to criminally investigate or prosecute any alcohol or drug abuse patient.[facility] HospitalIn the event this information is protected by the Federal Confidentiality of Alcohol and Drug Abuse Patient Records regulations: The Federal rules restrict any use of the information to criminally investigate or prosecute any alcohol or drug abuse patient.[facility] HospitalIn the event this information is protected by the Federal Confidentiality of Alcohol and Drug Abuse Patient Records regulations: The Federal rules restrict any use of the information to criminally investigate or prosecute any alcohol or drug abuse patient.[facility] HospitalIn the event this information is protected by the Federal Confidentiality of Alcohol and Drug Abuse Patient Records regulations: The Federal rules restrict any use of the information to criminally investigate or prosecute any alcohol or drug abuse patient.[facility] HospitalIn the event this information is protected by the Federal Confidentiality of Alcohol and Drug Abuse Patient Records regulations: The Federal rules restrict any use of the information to criminally investigate or prosecute any alcohol or drug abuse patient.[facility] HospitalIn the event this information is protected by the Federal Confidentiality of Alcohol and Drug Abuse Patient Records regulations: The Federal rules restrict any use of the information to criminally investigate or prosecute any alcohol or drug abuse patient.[facility] HospitalIn the event this information is protected by the Federal Confidentiality of Alcohol and Drug Abuse Patient Records regulations: The Federal rules restrict any use of the information to criminally investigate or prosecute any alcohol or drug abuse patient.[facility] HospitalIn the event this information is protected by the Federal Confidentiality of Alcohol and Drug Abuse Patient Records regulations: The Federal rules restrict any use of the information to criminally investigate or prosecute any alcohol or drug abuse patient.[facility] HospitalIn the event this information is protected by the Federal Confidentiality of Alcohol and Drug Abuse Patient Records regulations: The Federal rules restrict any use of the information to criminally investigate or prosecute any alcohol or drug abuse patient.[facility] HospitalIn the event this information is protected by the Federal Confidentiality of Alcohol and Drug Abuse Patient Records regulations: The Federal rules restrict any use of the information to criminally investigate or prosecute any alcohol or drug abuse patient.[facility] HospitalIn the event this information is protected by the Federal Confidentiality of Alcohol and Drug Abuse Patient Records regulations: The Federal rules restrict any use of the information to criminally investigate or prosecute any alcohol or drug abuse patient.[facility] HospitalIn the event this information is protected by the Federal Confidentiality of Alcohol and Drug Abuse Patient Records regulations: The Federal rules restrict any use of the information to criminally investigate or prosecute any alcohol or drug abuse patient.[facility] HospitalIn the event this information is protected by the Federal Confidentiality of Alcohol and Drug Abuse Patient Records regulations: The Federal rules restrict any use of the information to criminally investigate or prosecute any alcohol or drug abuse patient.[facility] HospitalIn the event this information is protected by the Federal Confidentiality of Alcohol and Drug Abuse Patient Records regulations: The Federal rules restrict any use of the information to criminally investigate or prosecute any alcohol or drug abuse patient.[facility] HospitalIn the event this information is protected by the Federal Confidentiality of Alcohol and Drug Abuse Patient Records regulations: The Federal rules restrict any use of the information to criminally investigate or prosecute any alcohol or drug abuse patient.[facility] HospitalIn the event this information is protected by the Federal Confidentiality of Alcohol and Drug Abuse Patient Records regulations: The Federal rules restrict any use of the information to criminally investigate or prosecute any alcohol or drug abuse patient.[facility] HospitalIn the event this information is protected by the Federal Confidentiality of Alcohol and Drug Abuse Patient Records regulations: The Federal rules restrict any use of the information to criminally investigate or prosecute any alcohol or drug abuse patient.[facility] HospitalIn the event this information is protected by the Federal Confidentiality of Alcohol and Drug Abuse Patient Records regulations: The Federal rules restrict any use of the information to criminally investigate or prosecute any alcohol or drug abuse patient.[facility] HospitalIn the event this information is protected by the Federal Confidentiality of Alcohol and Drug Abuse Patient Records regulations: The Federal rules restrict any use of the information to criminally investigate or prosecute any alcohol or drug abuse patient.[facility] HospitalIn the event this information is protected by the Federal Confidentiality of Alcohol and Drug Abuse Patient Records regulations: The Federal rules restrict any use of the information to criminally investigate or prosecute any alcohol or drug abuse patient.[facility] HospitalIn the event this information is protected by the Federal Confidentiality of Alcohol and Drug Abuse Patient Records regulations: The Federal rules restrict any use of the information to criminally investigate or prosecute any alcohol or drug abuse patient.[facility] HospitalIn the event this information is protected by the Federal Confidentiality of Alcohol and Drug Abuse Patient Records regulations: The Federal rules restrict any use of the information to criminally investigate or prosecute any alcohol or drug abuse patient.[facility] HospitalIn the event this information is protected by the Federal Confidentiality of Alcohol and Drug Abuse Patient Records regulations: The Federal rules restrict any use of the information to criminally investigate or prosecute any alcohol or drug abuse patient.[facility] HospitalIn the event this information is protected by the Federal Confidentiality of Alcohol and Drug Abuse Patient Records regulations: The Federal rules restrict any use of the information to criminally investigate or prosecute any alcohol or drug abuse patient.[facility] HospitalIn the event this information is protected by the Federal Confidentiality of Alcohol and Drug Abuse Patient Records regulations: The Federal rules restrict any use of the information to criminally investigate or prosecute any alcohol or drug abuse patient.[facility] HospitalIn the event this information is protected by the Federal Confidentiality of Alcohol and Drug Abuse Patient Records regulations: The Federal rules restrict any use of the information to criminally investigate or prosecute any alcohol or drug abuse patient.[facility] HospitalIn the event this information is protected by the Federal Confidentiality of Alcohol and Drug Abuse Patient Records regulations: The Federal rules restrict any use of the information to criminally investigate or prosecute any alcohol or drug abuse patient.[facility] HospitalIn the event this information is protected by the Federal Confidentiality of Alcohol and Drug Abuse Patient Records regulations: The Federal rules restrict any use of the information to criminally investigate or prosecute any alcohol or drug abuse patient.[facility] HospitalIn the event this information is protected by the Federal Confidentiality of Alcohol and Drug Abuse Patient Records regulations: The Federal rules restrict any use of the information to criminally investigate or prosecute any alcohol or drug abuse patient.[facility] HospitalIn the event this information is protected by the Federal Confidentiality of Alcohol and Drug Abuse Patient Records regulations: The Federal rules restrict any use of the information to criminally investigate or prosecute any alcohol or drug abuse patient.[facility] HospitalIn the event this information is protected by the Federal Confidentiality of Alcohol and Drug Abuse Patient Records regulations: The Federal rules restrict any use of the information to criminally investigate or prosecute any alcohol or drug abuse patient.[facility] HospitalIn the event this information is protected by the Federal Confidentiality of Alcohol and Drug Abuse Patient Records regulations: The Federal rules restrict any use of the information to criminally investigate or prosecute any alcohol or drug abuse patient.[facility] HospitalIn the event this information is protected by the Federal Confidentiality of Alcohol and Drug Abuse Patient Records regulations: The Federal rules restrict any use of the information to criminally investigate or prosecute any alcohol or drug abuse patient.[facility] HospitalIn the event this information is protected by the Federal Confidentiality of Alcohol and Drug Abuse Patient Records regulations: The Federal rules restrict any use of the information to criminally investigate or prosecute any alcohol or drug abuse patient.[facility] HospitalIn the event this information is protected by the Federal Confidentiality of Alcohol and Drug Abuse Patient Records regulations: The Federal rules restrict any use of the information to criminally investigate or prosecute any alcohol or drug abuse patient.[facility] HospitalIn the event this information is protected by the Federal Confidentiality of Alcohol and Drug Abuse Patient Records regulations: The Federal rules restrict any use of the information to criminally investigate or prosecute any alcohol or drug abuse patient.[facility] HospitalIn the event this information is protected by the Federal Confidentiality of Alcohol and Drug Abuse Patient Records regulations: The Federal rules restrict any use of the information to criminally investigate or prosecute any alcohol or drug abuse patient.[facility] HospitalIn the event this information is protected by the Federal Confidentiality of Alcohol and Drug Abuse Patient Records regulations: The Federal rules restrict any use of the information to criminally investigate or prosecute any alcohol or drug abuse patient.[facility] HospitalIn the event this information is protected by the Federal Confidentiality of Alcohol and Drug Abuse Patient Records regulations: The Federal rules restrict any use of the information to criminally investigate or prosecute any alcohol or drug abuse patient.[facility] HospitalIn the event this information is protected by the Federal Confidentiality of Alcohol and Drug Abuse Patient Records regulations: The Federal rules restrict any use of the information to criminally investigate or prosecute any alcohol or drug abuse patient.[facility] HospitalIn the event this information is protected by the Federal Confidentiality of Alcohol and Drug Abuse Patient Records regulations: The Federal rules restrict any use of the information to criminally investigate or prosecute any alcohol or drug abuse patient.[facility] HospitalIn the event this information is protected by the Federal Confidentiality of Alcohol and Drug Abuse Patient Records regulations: The Federal rules restrict any use of the information to criminally investigate or prosecute any alcohol or drug abuse patient.[facility] HospitalIn the event this information is protected by the Federal Confidentiality of Alcohol and Drug Abuse Patient Records regulations: The Federal rules restrict any use of the information to criminally investigate or prosecute any alcohol or drug abuse patient.[facility] HospitalIn the event this information is protected by the Federal Confidentiality of Alcohol and Drug Abuse Patient Records regulations: The Federal rules restrict any use of the information to criminally investigate or prosecute any alcohol or drug abuse patient.[facility] HospitalIn the event this information is protected by the Federal Confidentiality of Alcohol and Drug Abuse Patient Records regulations: The Federal rules restrict any use of the information to criminally investigate or prosecute any alcohol or drug abuse patient.[facility] HospitalIn the event this information is protected by the Federal Confidentiality of Alcohol and Drug Abuse Patient Records regulations: The Federal rules restrict any use of the information to criminally investigate or prosecute any alcohol or drug abuse patient.[facility] HospitalIn the event this information is protected by the Federal Confidentiality of Alcohol and Drug Abuse Patient Records regulations: The Federal rules restrict any use of the information to criminally investigate or prosecute any alcohol or drug abuse patient.[facility] HospitalIn the event this information is protected by the Federal Confidentiality of Alcohol and Drug Abuse Patient Records regulations: The Federal rules restrict any use of the information to criminally investigate or prosecute any alcohol or drug abuse patient.[facility] HospitalIn the event this information is protected by the Federal Confidentiality of Alcohol and Drug Abuse Patient Records regulations: The Federal rules restrict any use of the information to criminally investigate or prosecute any alcohol or drug abuse patient.[facility] HospitalIn the event this information is protected by the Federal Confidentiality of Alcohol and Drug Abuse Patient Records regulations: The Federal rules restrict any use of the information to criminally investigate or prosecute any alcohol or drug abuse patient.[facility] HospitalIn the event this information is protected by the Federal Confidentiality of Alcohol and Drug Abuse Patient Records regulations: The Federal rules restrict any use of the information to criminally investigate or prosecute any alcohol or drug abuse patient.[facility] HospitalIn the event this information is protected by the Federal Confidentiality of Alcohol and Drug Abuse Patient Records regulations: The Federal rules restrict any use of the information to criminally investigate or prosecute any alcohol or drug abuse patient.[facility] HospitalIn the event this information is protected by the Federal Confidentiality of Alcohol and Drug Abuse Patient Records regulations: The Federal rules restrict any use of the information to criminally investigate or prosecute any alcohol or drug abuse patient.[facility] HospitalIn the event this information is protected by the Federal Confidentiality of Alcohol and Drug Abuse Patient Records regulations: The Federal rules restrict any use of the information to criminally investigate or prosecute any alcohol or drug abuse patient.[facility] HospitalIn the event this information is protected by the Federal Confidentiality of Alcohol and Drug Abuse Patient Records regulations: The Federal rules restrict any use of the information to criminally investigate or prosecute any alcohol or drug abuse patient.[facility] HospitalIn the event this information is protected by the Federal Confidentiality of Alcohol and Drug Abuse Patient Records regulations: The Federal rules restrict any use of the information to criminally investigate or prosecute any alcohol or drug abuse patient.[facility] HospitalIn the event this information is protected by the Federal Confidentiality of Alcohol and Drug Abuse Patient Records regulations: The Federal rules restrict any use of the information to criminally investigate or prosecute any alcohol or drug abuse patient.[facility] HospitalIn the event this information is protected by the Federal Confidentiality of Alcohol and Drug Abuse Patient Records regulations: The Federal rules restrict any use of the information to criminally investigate or prosecute any alcohol or drug abuse patient.[facility] HospitalIn the event this information is protected by the Federal Confidentiality of Alcohol and Drug Abuse Patient Records regulations: The Federal rules restrict any use of the information to criminally investigate or prosecute any alcohol or drug abuse patient.[facility] HospitalIn the event this information is protected by the Federal Confidentiality of Alcohol and Drug Abuse Patient Records regulations: The Federal rules restrict any use of the information to criminally investigate or prosecute any alcohol or drug abuse patient.[facility] HospitalIn the event this information is protected by the Federal Confidentiality of Alcohol and Drug Abuse Patient Records regulations: The Federal rules restrict any use of the information to criminally investigate or prosecute any alcohol or drug abuse patient.[facility] HospitalIn the event this information is protected by the Federal Confidentiality of Alcohol and Drug Abuse Patient Records regulations: The Federal rules restrict any use of the information to criminally investigate or prosecute any alcohol or drug abuse patient.[facility] HospitalIn the event this information is protected by the Federal Confidentiality of Alcohol and Drug Abuse Patient Records regulations: The Federal rules restrict any use of the information to criminally investigate or prosecute any alcohol or drug abuse patient.[facility] HospitalIn the event this information is protected by the Federal Confidentiality of Alcohol and Drug Abuse Patient Records regulations: The Federal rules restrict any use of the information to criminally investigate or prosecute any alcohol or drug abuse patient.[facility] HospitalIn the event this information is protected by the Federal Confidentiality of Alcohol and Drug Abuse Patient Records regulations: The Federal rules restrict any use of the information to criminally investigate or prosecute any alcohol or drug abuse patient.[facility] HospitalIn the event this information is protected by the Federal Confidentiality of Alcohol and Drug Abuse Patient Records regulations: The Federal rules restrict any use of the information to criminally investigate or prosecute any alcohol or drug abuse patient.[facility] HospitalIn the event this information is protected by the Federal Confidentiality of Alcohol and Drug Abuse Patient Records regulations: The Federal rules restrict any use of the information to criminally investigate or prosecute any alcohol or drug abuse patient.[facility] HospitalIn the event this information is protected by the Federal Confidentiality of Alcohol and Drug Abuse Patient Records regulations: The Federal rules restrict any use of the information to criminally investigate or prosecute any alcohol or drug abuse patient.[facility] HospitalIn the event this information is protected by the Federal Confidentiality of Alcohol and Drug Abuse Patient Records regulations: The Federal rules restrict any use of the information to criminally investigate or prosecute any alcohol or drug abuse patient.[facility] HospitalIn the event this information is protected by the Federal Confidentiality of Alcohol and Drug Abuse Patient Records regulations: The Federal rules restrict any use of the information to criminally investigate or prosecute any alcohol or drug abuse patient.[facility] HospitalIn the event this information is protected by the Federal Confidentiality of Alcohol and Drug Abuse Patient Records regulations: The Federal rules restrict any use of the information to criminally investigate or prosecute any alcohol or drug abuse patient.[facility] HospitalIn the event this information is protected by the Federal Confidentiality of Alcohol and Drug Abuse Patient Records regulations: The Federal rules restrict any use of the information to criminally investigate or prosecute any alcohol or drug abuse patient.[facility] HospitalIn the event this information is protected by the Federal Confidentiality of Alcohol and Drug Abuse Patient Records regulations: The Federal rules restrict any use of the information to criminally investigate or prosecute any alcohol or drug abuse patient.[facility] HospitalIn the event this information is protected by the Federal Confidentiality of Alcohol and Drug Abuse Patient Records regulations: The Federal rules restrict any use of the information to criminally investigate or prosecute any alcohol or drug abuse patient.[facility] HospitalIn the event this information is protected by the Federal Confidentiality of Alcohol and Drug Abuse Patient Records regulations: The Federal rules restrict any use of the information to criminally investigate or prosecute any alcohol or drug abuse patient.[facility] HospitalIn the event this information is protected by the Federal Confidentiality of Alcohol and Drug Abuse Patient Records regulations: The Federal rules restrict any use of the information to criminally investigate or prosecute any alcohol or drug abuse patient.[facility] HospitalIn the event this information is protected by the Federal Confidentiality of Alcohol and Drug Abuse Patient Records regulations: The Federal rules restrict any use of the information to criminally investigate or prosecute any alcohol or drug abuse patient.[facility] HospitalIn the event this information is protected by the Federal Confidentiality of Alcohol and Drug Abuse Patient Records regulations: The Federal rules restrict any use of the information to criminally investigate or prosecute any alcohol or drug abuse patient.[facility] HospitalIn the event this information is protected by the Federal Confidentiality of Alcohol and Drug Abuse Patient Records regulations: The Federal rules restrict any use of the information to criminally investigate or prosecute any alcohol or drug abuse patient.[facility] HospitalIn the event this information is protected by the Federal Confidentiality of Alcohol and Drug Abuse Patient Records regulations: The Federal rules restrict any use of the information to criminally investigate or prosecute any alcohol or drug abuse patient.[facility] HospitalIn the event this information is protected by the Federal Confidentiality of Alcohol and Drug Abuse Patient Records regulations: The Federal rules restrict any use of the information to criminally investigate or prosecute any alcohol or drug abuse patient.[facility] HospitalIn the event this information is protected by the Federal Confidentiality of Alcohol and Drug Abuse Patient Records regulations: The Federal rules restrict any use of the information to criminally investigate or prosecute any alcohol or drug abuse patient.[facility] HospitalIn the event this information is protected by the Federal Confidentiality of Alcohol and Drug Abuse Patient Records regulations: The Federal rules restrict any use of the information to criminally investigate or prosecute any alcohol or drug abuse patient.[facility] HospitalIn the event this information is protected by the Federal Confidentiality of Alcohol and Drug Abuse Patient Records regulations: The Federal rules restrict any use of the information to criminally investigate or prosecute any alcohol or drug abuse patient.[facility] HospitalIn the event this information is protected by the Federal Confidentiality of Alcohol and Drug Abuse Patient Records regulations: The Federal rules restrict any use of the information to criminally investigate or prosecute any alcohol or drug abuse patient.[facility] HospitalIn the event this information is protected by the Federal Confidentiality of Alcohol and Drug Abuse Patient Records regulations: The Federal rules restrict any use of the information to criminally investigate or prosecute any alcohol or drug abuse patient.[facility] HospitalIn the event this information is protected by the Federal Confidentiality of Alcohol and Drug Abuse Patient Records regulations: The Federal rules restrict any use of the information to criminally investigate or prosecute any alcohol or drug abuse patient.[facility] HospitalIn the event this information is protected by the Federal Confidentiality of Alcohol and Drug Abuse Patient Records regulations: The Federal rules restrict any use of the information to criminally investigate or prosecute any alcohol or drug abuse patient.[facility] HospitalIn the event this information is protected by the Federal Confidentiality of Alcohol and Drug Abuse Patient Records regulations: The Federal rules restrict any use of the information to criminally investigate or prosecute any alcohol or drug abuse patient.[facility] HospitalIn the event this information is protected by the Federal Confidentiality of Alcohol and Drug Abuse Patient Records regulations: The Federal rules restrict any use of the information to criminally investigate or prosecute any alcohol or drug abuse patient.[facility] HospitalIn the event this information is protected by the Federal Confidentiality of Alcohol and Drug Abuse Patient Records regulations: The Federal rules restrict any use of the information to criminally investigate or prosecute any alcohol or drug abuse patient.[facility] HospitalIn the event this information is protected by the Federal Confidentiality of Alcohol and Drug Abuse Patient Records regulations: The Federal rules restrict any use of the information to criminally investigate or prosecute any alcohol or drug abuse patient.[facility] HospitalIn the event this information is protected by the Federal Confidentiality of Alcohol and Drug Abuse Patient Records regulations: The Federal rules restrict any use of the information to criminally investigate or prosecute any alcohol or drug abuse patient.[facility] HospitalIn the event this information is protected by the Federal Confidentiality of Alcohol and Drug Abuse Patient Records regulations: The Federal rules restrict any use of the information to criminally investigate or prosecute any alcohol or drug abuse patient.[facility] HospitalIn the event this information is protected by the Federal Confidentiality of Alcohol and Drug Abuse Patient Records regulations: The Federal rules restrict any use of the information to criminally investigate or prosecute any alcohol or drug abuse patient.[facility] HospitalIn the event this information is protected by the Federal Confidentiality of Alcohol and Drug Abuse Patient Records regulations: The Federal rules restrict any use of the information to criminally investigate or prosecute any alcohol or drug abuse patient.[facility] HospitalIn the event this information is protected by the Federal Confidentiality of Alcohol and Drug Abuse Patient Records regulations: The Federal rules restrict any use of the information to criminally investigate or prosecute any alcohol or drug abuse patient.[facility] HospitalIn the event this information is protected by the Federal Confidentiality of Alcohol and Drug Abuse Patient Records regulations: The Federal rules restrict any use of the information to criminally investigate or prosecute any alcohol or drug abuse patient.[facility] HospitalIn the event this information is protected by the Federal Confidentiality of Alcohol and Drug Abuse Patient Records regulations: The Federal rules restrict any use of the information to criminally investigate or prosecute any alcohol or drug abuse patient.[facility] HospitalIn the event this information is protected by the Federal Confidentiality of Alcohol and Drug Abuse Patient Records regulations: The Federal rules restrict any use of the information to criminally investigate or prosecute any alcohol or drug abuse patient.[facility] HospitalIn the event this information is protected by the Federal Confidentiality of Alcohol and Drug Abuse Patient Records regulations: The Federal rules restrict any use of the information to criminally investigate or prosecute any alcohol or drug abuse patient.[facility] HospitalIn the event this information is protected by the Federal Confidentiality of Alcohol and Drug Abuse Patient Records regulations: The Federal rules restrict any use of the information to criminally investigate or prosecute any alcohol or drug abuse patient.[facility] HospitalIn the event this information is protected by the Federal Confidentiality of Alcohol and Drug Abuse Patient Records regulations: The Federal rules restrict any use of the information to criminally investigate or prosecute any alcohol or drug abuse patient.[facility] HospitalIn the event this information is protected by the Federal Confidentiality of Alcohol and Drug Abuse Patient Records regulations: The Federal rules restrict any use of the information to criminally investigate or prosecute any alcohol or drug abuse patient.[facility] HospitalIn the event this information is protected by the Federal Confidentiality of Alcohol and Drug Abuse Patient Records regulations: The Federal rules restrict any use of the information to criminally investigate or prosecute any alcohol or drug abuse patient.[facility] HospitalIn the event this information is protected by the Federal Confidentiality of Alcohol and Drug Abuse Patient Records regulations: The Federal rules restrict any use of the information to criminally investigate or prosecute any alcohol or drug abuse patient.[facility] HospitalIn the event this information is protected by the Federal Confidentiality of Alcohol and Drug Abuse Patient Records regulations: The Federal rules restrict any use of the information to criminally investigate or prosecute any alcohol or drug abuse patient.[facility] HospitalIn the event this information is protected by the Federal Confidentiality of Alcohol and Drug Abuse Patient Records regulations: The Federal rules restrict any use of the information to criminally investigate or prosecute any alcohol or drug abuse patient.[facility] HospitalIn the event this information is protected by the Federal Confidentiality of Alcohol and Drug Abuse Patient Records regulations: The Federal rules restrict any use of the information to criminally investigate or prosecute any alcohol or drug abuse patient.[facility] HospitalIn the event this information is protected by the Federal Confidentiality of Alcohol and Drug Abuse Patient Records regulations: The Federal rules restrict any use of the information to criminally investigate or prosecute any alcohol or drug abuse patient.[facility] HospitalIn the event this information is protected by the Federal Confidentiality of Alcohol and Drug Abuse Patient Records regulations: The Federal rules restrict any use of the information to criminally investigate or prosecute any alcohol or drug abuse patient.[facility] HospitalIn the event this information is protected by the Federal Confidentiality of Alcohol and Drug Abuse Patient Records regulations: The Federal rules restrict any use of the information to criminally investigate or prosecute any alcohol or drug abuse patient.[facility] HospitalIn the event this information is protected by the Federal Confidentiality of Alcohol and Drug Abuse Patient Records regulations: The Federal rules restrict any use of the information to criminally investigate or prosecute any alcohol or drug abuse patient.[facility] HospitalIn the event this information is protected by the Federal Confidentiality of Alcohol and Drug Abuse Patient Records regulations: The Federal rules restrict any use of the information to criminally investigate or prosecute any alcohol or drug abuse patient.[facility] HospitalIn the event this information is protected by the Federal Confidentiality of Alcohol and Drug Abuse Patient Records regulations: The Federal rules restrict any use of the information to criminally investigate or prosecute any alcohol or drug abuse patient.[facility] HospitalIn the event this information is protected by the Federal Confidentiality of Alcohol and Drug Abuse Patient Records regulations: The Federal rules restrict any use of the information to criminally investigate or prosecute any alcohol or drug abuse patient.[facility] HospitalIn the event this information is protected by the Federal Confidentiality of Alcohol and Drug Abuse Patient Records regulations: The Federal rules restrict any use of the information to criminally investigate or prosecute any alcohol or drug abuse patient.[facility] HospitalIn the event this information is protected by the Federal Confidentiality of Alcohol and Drug Abuse Patient Records regulations: The Federal rules restrict any use of the information to criminally investigate or prosecute any alcohol or drug abuse patient.[facility] HospitalIn the event this information is protected by the Federal Confidentiality of Alcohol and Drug Abuse Patient Records regulations: The Federal rules restrict any use of the information to criminally investigate or prosecute any alcohol or drug abuse patient.[facility] HospitalIn the event this information is protected by the Federal Confidentiality of Alcohol and Drug Abuse Patient Records regulations: The Federal rules restrict any use of the information to criminally investigate or prosecute any alcohol or drug abuse patient.[facility] HospitalIn the event this information is protected by the Federal Confidentiality of Alcohol and Drug Abuse Patient Records regulations: The Federal rules restrict any use of the information to criminally investigate or prosecute any alcohol or drug abuse patient.[facility] HospitalIn the event this information is protected by the Federal Confidentiality of Alcohol and Drug Abuse Patient Records regulations: The Federal rules restrict any use of the information to criminally investigate or prosecute any alcohol or drug abuse patient.[facility] HospitalIn the event this information is protected by the Federal Confidentiality of Alcohol and Drug Abuse Patient Records regulations: The Federal rules restrict any use of the information to criminally investigate or prosecute any alcohol or drug abuse patient.[facility] HospitalIn the event this information is protected by the Federal Confidentiality of Alcohol and Drug Abuse Patient Records regulations: The Federal rules restrict any use of the information to criminally investigate or prosecute any alcohol or drug abuse patient.[facility] HospitalIn the event this information is protected by the Federal Confidentiality of Alcohol and Drug Abuse Patient Records regulations: The Federal rules restrict any use of the information to criminally investigate or prosecute any alcohol or drug abuse patient.[facility] HospitalIn the event this information is protected by the Federal Confidentiality of Alcohol and Drug Abuse Patient Records regulations: The Federal rules restrict any use of the information to criminally investigate or prosecute any alcohol or drug abuse patient.[facility] HospitalIn the event this information is protected by the Federal Confidentiality of Alcohol and Drug Abuse Patient Records regulations: The Federal rules restrict any use of the information to criminally investigate or prosecute any alcohol or drug abuse patient.[facility] HospitalIn the event this information is protected by the Federal Confidentiality of Alcohol and Drug Abuse Patient Records regulations: The Federal rules restrict any use of the information to criminally investigate or prosecute any alcohol or drug abuse patient.[facility] HospitalIn the event this information is protected by the Federal Confidentiality of Alcohol and Drug Abuse Patient Records regulations: The Federal rules restrict any use of the information to criminally investigate or prosecute any alcohol or drug abuse patient.[facility] HospitalIn the event this information is protected by the Federal Confidentiality of Alcohol and Drug Abuse Patient Records regulations: The Federal rules restrict any use of the information to criminally investigate or prosecute any alcohol or drug abuse patient.[facility] HospitalIn the event this information is protected by the Federal Confidentiality of Alcohol and Drug Abuse Patient Records regulations: The Federal rules restrict any use of the information to criminally investigate or prosecute any alcohol or drug abuse patient.[facility] HospitalIn the event this information is protected by the Federal Confidentiality of Alcohol and Drug Abuse Patient Records regulations: The Federal rules restrict any use of the information to criminally investigate or prosecute any alcohol or drug abuse patient.[facility] HospitalIn the event this information is protected by the Federal Confidentiality of Alcohol and Drug Abuse Patient Records regulations: The Federal rules restrict any use of the information to criminally investigate or prosecute any alcohol or drug abuse patient.[facility] Care Teams (unrecognized sec tion and content) Try Out Person Relationship Specialty Start Date End Date Talampas, Ilya D, MD [facility] [place] [address] PCP - General Internal Medicine 05/09/15 Try Out Person Relationship Specialty Start Date End Date Ilya Monroe MD [address] [place] [address], [place] [address] PCP - General Internal Medicine 05/09/15 Try Out Person Relationship Specialty Start Date End Date Ilya Monroe MD [address] [place] [address], [place] [address] PCP - General Internal Medicine 05/09/15 Try Out Person Relationship Specialty Start Date End Date Ilya Monroe MD [address] [place] [address], [place] [address] PCP - General Internal Medicine 05/09/15 Try Out Person Relationship Specialty Start Date End Date Ilya Monroe MD [address] [place] [address], [place] [address] PCP - General Internal Medicine 05/09/15 Try Out Person Relationship Specialty Start Date End Date Ilya Monroe MD [address] [place] [address], [place] [address] PCP - General Internal Medicine 05/09/15 Try Out Person Relationship Specialty Start Date End Date Ilya Monroe MD [address] [place] [address], [place] [address] PCP - General Internal Medicine 05/09/15 Try Out Person Relationship Specialty Start Date End Date Ilya Monroe MD [address] [place] [address], [place] [address] PCP - General Internal Medicine 05/09/15 Try Out Person Relationship Specialty Start Date End Date Ilya Monroe MD [address] [place] [address], [place] [address] PCP - General Internal Medicine 05/09/15 Try Out Person Relationship Specialty Start Date End Date Ilya Monroe MD [address] [place] [place] [address] PCP - General Internal Medicine 05/09/15 Try Out Person Relationship Specialty Start Date End Date Ilya Monroe MD [address] [place] [address] PCP - General Internal Medicine 05/09/15 Try Out Person Relationship Specialty Start Date End Date Ilya Monroe MD [address] [place] [address] PCP - General Internal Medicine 05/09/15 Try Out Person Relationship Specialty Start Date End Date Ilya Monroe MD [address] [place] [address] PCP - General Internal Medicine 05/09/15 Try Out Person Relationship Specialty Start Date End Date Ilya Monroe MD [address] [place] [address] PCP - General Internal Medicine 05/09/15 Try Out Person Relationship Specialty Start Date End Date Ilya Monroe MD [address] [place] [address] PCP - General Internal Medicine 05/09/15 Team Status: Active Member Role Status Dates Dr. Ilya Monroe MD Family Provider Active Dr. Ilya Monroe MD Primary Care Provider Active Team Status: Inactive Member Role Status Dates Dr. Ilya Monroe MD Primary Care Provider, Referr ing Provider Active Ryland Noonan NP, [employer] Attending Provider Active Team Status: Inactive Member Role Status Dates Dr. Ilya Monroe MD Primary Care Provider Active Dr. Corona Agee DO Emergency Provider Active Try Out Person Relationship Specialty Start Date End Date Ilya Monroe MD [address] [place] [place] [address] PCP - General Internal Medicine 05/09/15 Try Out Person Relationship Specialty Start Date End Date Ilya Monroe MD [address] [place] [address] PCP - General Internal Medicine 05/09/15 Team Status: Inactive Member Role Status Dates Dr. Ilya Monroe MD Primary Care Provider Active Dr. Corona Agee DO Attending Provider, Emergency Provide r Active Team Status: Inactive Member Role Status Dates Dr. Ilya Mnoroe MD Primary Care Provider Active Dr. Leon Catherine DO Emergency Provider Active Try Out Person Relationship Specialty Start Date End Date Ilya Monroe MD [address] [place] [place] [address] PCP - General Internal Medicine 05/09/15 Try Out Person Relationship Specialty Start Date End Date Ilya Monroe MD [address] [place] [address] PCP - General Internal Medicine 05/09/15 Try Out Person Relationship Specialty Start Date End Date Ilya Monroe MD [address] [place] [address] PCP - General Internal Medicine 05/09/15 Try Out Person Relationship Specialty Start Date End Date Ilya Monroe MD [address] [place] [address] PCP - General Internal Medicine 05/09/15 Try Out Person Relationship Specialty Start Date End Date Ilya Monroe MD [address] [facility] [place] [address] PCP - General Internal Medicine 05/09/15 Try Out Person Relationship Specialty Start Date End Date Ilya Monroe MD [address] [facility] [place] [address] PCP - General Internal Medicine 05/09/15 Team Status: Inactive Member Role Status Dates Dr. Ilya Monroe MD Primary Care Provider, Referr ing Provider Active Jules Scott INTERNATIONAL LOGISTICS ANALYST, INTERNATIONAL LOGISTICS ANALYST-C Attending Provider Active Team Status: Active Member Role Status Dates Dr. Ilya Monroe MD Primary Care Provider, Referr ing Provider Active Erinn SON, PA Attending Provider Active Team Status: Active Member Role Status Dates Dr. Ilya Monroe MD Primary Care Provider Active Adriana Joya INTERNATIONAL LOGISTICS ANALYST, INTERNATIONAL LOGISTICS ANALYST-C Referring Provider, Other Provid er Active Dr. Alex Bledsoe MD Attending Provider Active Team Status: Inactive Member Role Status Dates Dr. Ilya Monroe MD Primary Care Provider Active Adriana Joya INTERNATIONAL LOGISTICS ANALYST, INTERNATIONAL LOGISTICS ANALYST-C Attending Provider, Referring Pr ovider Active Try Out Person Relationship Specialty Start Date End Date Ilya Monroe MD [address] [place] [address] PCP - General Internal Medicine 05/09/15 Try Out Person Relationship Specialty Start Date End Date Ilya Monroe MD [address] [place], [place] [address]441 PCP - General Internal Medicine 05/09/15 Team Status: Inactive Member Role Status Dates Dr. Ilya Monroe MD Primary Care Provider, Referr ing Provider Active Erinn Liang PA, PA Attending Provider Active Team Status: Inactive Member Role Status Dates Dr. Ilya Monroe MD Primary Care Provider Active Dr. Talon Guerrero MD Emergency Provider Active Try Out Person Relationship Specialty Start Date End Date Ilya Monroe MD [address] [place], [place] [address]91 PCP - General Internal Medicine 05/09/15 Team Status: Inactive Member Role Status Dates Dr. Ilya Monroe MD Primary Care Provider Active ONEYDA LAL Attending Provider, Referring Provide r Active Team Status: Inactive Member Role Status Dates Dr. Ilya Monroe MD Primary Care Provider Active Dr. Talon Guerrero MD Attending Provider, Emergency Pr ovider Active Try Out Person Relationship Specialty Start Date End Date Ilya Monroe MD [address] [place] [address] PCP - General Internal Medicine 05/09/15 Try Out Person Relationship Specialty Start Date End Date Ilya Monroe MD [address] [place] [address] PCP - General Internal Medicine 05/09/15 Try Out Person Relationship Specialty Start Date End Date Ilya Monroe MD [address] [place] [address] PCP - General Internal Medicine 05/09/15 Try Out Person Relationship Specialty Start Date End Date Ilya Monroe MD [address] [place] [address] PCP - General Internal Medicine 05/09/15 Try Out Person Relationship Specialty Start Date End Date Ilya Monroe MD [address] [place] [address] PCP - General Internal Medicine 05/09/15 Ema Fang [address] [place] [address] 41378 Hematology/Oncology 02/01/23 Try Out Person Relationship Specialty Start Date End Date Ilya Monroe MD [address] [place] [address] PCP - General Internal Medicine 05/09/15 Ema Fang [address] [place] [address] 81198 Hematology/Oncology 02/01/23 Try Out Person Relationship Specialty Start Date End Date Ilya Monroe MD [address] [place] [address] PCP - General Internal Medicine 05/09/15 Ema Fang [address] [place] [address] 58573 Hematology/Oncology 02/01/23 Try Out Person Relationship Specialty Start Date End Date Ilya Monroe MD [address] [place] [address] PCP - General Internal Medicine 05/09/15 Ema Fang [address] [place] [address] 35259 Hematology/Oncology 02/01/23 Try Out Person Relationship Specialty Start Date End Date Ilya Monroe MD [address] [place] [address] PCP - General Internal Medicine 05/09/15 Ema Fang [address] [place] [address] 94020 Hematology/Oncology 02/01/23 Try Out Person Relationship Specialty Start Date End Date Ilya Monroe MD [address] [place] [address] PCP - General Internal Medicine 05/09/15 Ema Fang [address] [place] [address] 01811 Hematology/Oncology 02/01/23 Try Out Person Relationship Specialty Start Date End Date Ilya Monroe MD [address] [facility] [place] [address] PCP - General Internal Medicine 05/09/15 Ema Fang [address] [place] [address] [place] [address] 52205 Hematology/Oncology 02/01/23 Try Out Person Relationship Specialty Start Date End Date Ilya Monroe MD [address] [place] [address] PCP - General Internal Medicine 05/09/15 Ema Fang [address] [place], [place] [address].[address] [place] [address] 76220 Hematology/Oncology 02/01/23 Try Out Person Relationship Specialty Start Date End Date Ilya Monroe MD [address] [place] [address] PCP - General Internal Medicine 05/09/15 Ema Fang [address] [place] [address] [place] [address] 10014 Hematology/Oncology 02/01/23 Eveline Griffin MD, [address] [place], [place] [address] Radiation Oncology 03/22/23 Try Out Person Relationship Specialty Start Date End Date Ilya Monroe MD [address] [place], [place] [address]11 PCP - General Internal Medicine 05/09/15 Ema Fang [address] [place] [address] 54926 Hematology/Oncology 02/01/23 Eveline Griffin MD, [address] [place], [place] [address] Radiation Oncology 03/22/23 Team Status: Inactive Member Role Status Dates Dr. Ilya Monroe MD Primary Care Provider, Referr ing Provider Active Dr. Kelvin Jones MD Attending Provider Active Team Status: Inactive Member Role Status Dates Dr. Ilya Monroe MD Primary Care Provider Active Ahmet Betancourt MD Attending Provider, Emergency Provid er Active Team Status: Inactive Member Role Status Dates Dr. Ilya Monroe MD Primary Care Provider Active Dr. Kelvin Jones MD Attending Provider, Referring Pr ovider Active Try Out Person Relationship Specialty Start Date End Date Ilya Monroe MD [address] [place], [place] [address] PCP - General Internal Medicine 05/09/15 Ema Fang [address] [place] [address] 85218 Hematology/Oncology 02/01/23 Eveline Griffin MD [address] [place], [place] [address] Radiation Oncology 03/22/23 Heriberto Disla MD [address] [place] [address] Hematology/Oncology 03/30/23 Try Out Person Relationship Specialty Start Date End Date Ilya Monroe MD [address] [place] [address] PCP - General Internal Medicine 05/09/15 Ema Fang [address] [place] [address] 71397 Hematology/Oncology 02/01/23 Eveline Griffin MD [address] [place] [address] Radiation Oncology 03/22/23 Heriberto Disla MD [address] [place] [address] Hematology/Oncology 03/30/23 Try Out Person Relationship Specialty Start Date End Date Ilya Monroe MD [address] [place] [address] PCP - General Internal Medicine 05/09/15 Ema Fang [address] [place] [address] 43948 Hematology/Oncology 02/01/23 Eveline Griffin MD [address] [place] [address] Radiation Oncology 03/22/23 Heriberto Disla MD [address] [place] [address] Hematology/Oncology 03/30/23 Try Out Person Relationship Specialty Start Date End Date Ilya Monroe MD [address] [place] [address] PCP - General Internal Medicine 05/09/15 [address]Ea Fang [address] [place] [address] 95345 Hematology/Oncology 02/01/23 Eveline Griffin MD [address] [place] [address] Radiation Oncology 03/22/23 Heriberto Disla MD [address] [place] [address] Hematology/Oncology 03/30/23 Try Out Person Relationship Specialty Start Date End Date Ilya Monroe MD [address] [place] [address] PCP - General Internal Medicine 05/09/15 Ema Fang [address] [place] [address].[address] [place] [address] 52123 Hematology/Oncology 02/01/23 Eveline Griffin MD [address] [place] [address] Radiation Oncology 03/22/23 Heriberto Disla MD [address] [place] [address] Hematology/Oncology 03/30/23 Try Out Person Relationship Specialty Start Date End Date Ilya Monroe MD [address] [place] [address] PCP - General Internal Medicine 05/09/15 Ema Fang [address] [place] [address] [place] [address] 34389 Hematology/Oncology 02/01/23 Eveline Griffin MD [address] [place] [address] Radiation Oncology 03/22/23 Heriberto Disla MD [address] [place] [address] Hematology/Oncology 03/30/23 Try Out Person Relationship Specialty Start Date End Date Ilya Monroe MD [address] [place] [address] PCP - General Internal Medicine 05/09/15 Ema Fang [address] [place] [address] 12[address] [place] [address] Hematology/Oncology 02/01/23 Eveline Griffin MD [address] [place] [address] Radiation Oncology 03/22/23 Heriberto Disla MD [address] [place] [address] Hematology/Oncology 03/30/23 Try Out Person Relationship Specialty Start Date End Date Ilya Monroe MD [address] [place] [address] PCP - General Internal Medicine 05/09/15 Ema Fang [address] [place] [address] [address] Hematology/Oncology 02/01/23 Eveline Griffin MD [address] [place] [address] Radiation Oncology 03/22/23 Heriberto Disla MD [address] [place] [address] Hematology/Oncology 03/30/23 Try Out Person Relationship Specialty Start Date End Date Ilya Monroe MD [address] [place] [address] PCP - General Internal Medicine 05/09/15 Ema Fang [address] [place] [address] 33979 Hematology/Oncology 02/01/23 Eveline Griffin MD [address] [place] [address] Radiation Oncology 03/22/23 Heriberto Disla MD [address] [place] [address] Hematology/Oncology 03/30/23 Try Out Person Relationship Specialty Start Date End Date Ilya Monroe MD [address] [place] [address] PCP - General Internal Medicine 05/09/15 Ema Fang [address] [place] [address].[address] [place] [address] 80308 Hematology/Oncology 02/01/23 Eveline Griffin MD [address] [place] [address] Radiation Oncology 03/22/23 Heriberto Disla MD [address] [place] [address] Hematology/Oncology 03/30/23 Try Out Person Relationship Specialty Start Date End Date Ilya Monroe MD [address] [place] [address] PCP - General Internal Medicine 05/09/15 Ema Fang [address] [place] [address] 50465 Hematology/Oncology 02/01/23 Eveline Griffin MD [address] [place] [address] Radiation Oncology 03/22/23 Heriberto Disla MD [address] [place] [address] Hematology/Oncology 03/30/23 Try Out Person Relationship Specialty Start Date End Date Ilya Monroe MD [address] [place] [address] PCP - General Internal Medicine 05/09/15 Ema Fang [address] [place] [address] 12650 Hematology/Oncology 02/01/23 Eveline Griffin MD [address] [place] [address] Radiation Oncology 03/22/23 Heriberto Disla MD [address] [place] [address] Hematology/Oncology 03/30/23 Team Status: Active Member Role Status Dates Dr. Ilya Monroe MD Primary Care Provider Active Dr. Kelvin Jones MD Attending Provider Active Team Status: Active Member Role Status Dates Dr. Ilya Monroe MD Primary Care Provider Active Ryland Noonan INTERNATIONAL LOGISTICS ANALYST, INTERNATIONAL LOGISTICS ANALYST-C Attending Provider, Referring Pro vider Active Try Out Person Relationship Specialty Start Date End Date Ilya Monroe MD [address] [place] [address] PCP - General Internal Medicine 05/09/15 Ema Fang [address] [place] [address] 1240.[address] [place] [address] Hematology/Oncology 02/01/23 Eveline Griffin MD [address] [place] [address] Radiation Oncology 03/22/23 Heriberto Disla MD [address] [place] [address] Hematology/Oncology 03/30/23 Try Out Person Relationship Specialty Start Date End Date Ilya Monroe MD [address] [place] [address] PCP - General Internal Medicine 05/09/15 Ema Fang [address] [place] [address].[address] [place] [address] 18140 Hematology/Oncology 02/01/23 Eveline Griffin MD [address] [place] [address] Radiation Oncology 03/22/23 Heribreto Disla MD [address] [place] [address] Hematology/Oncology 03/30/23 Dominga Osullivan RN [address] [place] [address] Specialty Special Needs Babysitter Hematology/Oncology 07/21/23 Try Out Person Relationship Specialty Start Date End Date Ilya Monroe MD [address] [place] [address] PCP - General Internal Medicine 05/09/15 Ema Fang [address] [place] [address] 67406 Hematology/Oncology 02/01/23 Eveline Griffin MD [address] [place] [address] Radiation Oncology 03/22/23 Heriberto Disla MD [address] [place] [address] Hematology/Oncology 03/30/23 Dominga Osullivan, KEON [address] [place] [address] Specialty Special Needs Babysitter Hematology/Oncology 07/21/23 Try Out Person Relationship Specialty Start Date End Date Ilya Monroe MD [address] [place] [address] PCP - General Internal Medicine 05/09/15 Ema Fang [address] [place] [address] 03980 Hematology/Oncology 02/01/23 Eveline Griffin MD [address] [place] [address] Radiation Oncology 03/22/23 Heriberto Disla MD [address] [place] [address] Hematology/Oncology 03/30/23 Dominga Osullivan, KEON [address] [place] [address] Specialty Special Needs Babysitter Hematology/Oncology 07/21/23 Try Out Person Relationship Specialty Start Date End Date Ilya Monroe MD [address] [place] [address] PCP - General Internal Medicine 05/09/15 Ema Fang [address] [place] [address] 79281 Hematology/Oncology 02/01/23 Eveline Griffin MD [address] [place] [address] Radiation Oncology 03/22/23 Heriberto Disla MD [address] [place] [address] Hematology/Oncology 03/30/23 Dominga Osullivan RN [address] [place] [address] Specialty Special Needs Babysitter Hematology/Oncology 07/21/23 Try Out Person Relationship Specialty Start Date End Date Ilya Monroe MD [address] [place] [address] PCP - General Internal Medicine 05/09/15 Ema Fang [address] [place] [address] 81512 Hematology/Oncology 02/01/23 Eveline Griffin MD [address] [place] [address] Radiation Oncology 03/22/23 Heriberto Disla MD [address] [place] [address] Hematology/Oncology 03/30/23 Dominga Osullivan RN [address] [place] [address] Specialty Special Needs Babysitter Hematology/Oncology 07/21/23 Try Out Person Relationship Specialty Start Date End Date Ilya Monroe MD [address] [place] [address] PCP - General Internal Medicine 05/09/15 Ema Fang [address] [place] [address] 12444 Hematology/Oncology 02/01/23 Eveline Griffin MD [address] [place] [address] Radiation Oncology 03/22/23 Heriberto Disla MD [address] [place] [address] Hematology/Oncology 03/30/23 Dominga Osullivan, KEON [address] [place] [address] Specialty Special Needs Babysitter Hematology/Oncology 07/21/23 Try Out Person Relationship Specialty Start Date End Date Ilya Monroe MD [address] [place] [address] PCP - General Internal Medicine 05/09/15 Ema Fang [address] [place] [address] 1240.[address] [place] [address] Hematology/Oncology 02/01/23 Eveline Griffin MD [address] [place] [address] Radiation Oncology 03/22/23 Heriberto Disla MD [address] [place] [address] Hematology/Oncology 03/30/23 Dominga Osullivan, KEON [address] [place] [address] Specialty Special Needs Babysitter Hematology/Oncology 07/21/23 Try Out Person Relationship Specialty Start Date End Date Ilya Monroe MD [address] [place] [address] PCP - General Internal Medicine 05/09/15 Ema Fang [address] [place] [address] 64273 Hematology/Oncology 02/01/23 Eveline Griffin MD [address] [place] [address] Radiation Oncology 03/22/23 Heriberto Disla MD [address] [place] [address] Hematology/Oncology 03/30/23 Dominga Osullivan RN [address] [place] [address] Specialty Special Needs Babysitter Hematology/Oncology 07/21/23 Try Out Person Relationship Specialty Start Date End Date Ilya Monroe MD [address] [place] [address] PCP - General Internal Medicine 05/09/15 Ema Fang [address] [place] [address] 75690 Hematology/Oncology 02/01/23 Eveline Griffin MD [address] [place] [address] Radiation Oncology 03/22/23 Heriberto Disla MD [address] [place] [address] Hematology/Oncology 03/30/23 Dominga Osullivan, KEON [address] [place] [address] Specialty Special Needs Babysitter Hematology/Oncology 07/21/23 Try Out Person Relationship Specialty Start Date End Date Ilya Monroe MD [address] [place] [address] PCP - General Internal Medicine 05/09/15 Ema Fang [address] [place] [address] 93847 Hematology/Oncology 02/01/23 Eveline Griffin MD [address] [place] [address] Radiation Oncology 03/22/23 Heriberto Disla MD [address] [place] [address] Hematology/Oncology 03/30/23 Dominga Osullivan, KEON [address] [place] [address] Specialty Special Needs Babysitter Hematology/Oncology 07/21/23 Try Out Person Relationship Specialty Start Date End Date Ilya Monroe MD [address] [place] [address] PCP - General Internal Medicine 05/09/15 Ema Fang [address] [place] [address] 36352 Hematology/Oncology 02/01/23 Eveline Griffin MD [address] [place] [address] Radiation Oncology 03/22/23 Heriberto Disla MD [address] [place] [address] Hematology/Oncology 03/30/23 Dominga Osullivan, KEON [address] [place] [address] Specialty Special Needs Babysitter Hematology/Oncology 07/21/23 Try Out Person Relationship Specialty Start Date End Date Ilya Monroe MD [address] [place] [address] PCP - General Internal Medicine 05/09/15 Ema Fang [address] [place] [address] 40423 Hematology/Oncology 02/01/23 Eveline Griffin MD [address] [place] [address] Radiation Oncology 03/22/23 Heriberto Disla MD [address] [place] [address] Hematology/Oncology 03/30/23 Dominga Osullivan, KEON [address] [place] [address] Specialty Special Needs Babysitter Hematology/Oncology 07/21/23 Try Out Person Relationship Specialty Start Date End Date Ilya Monroe MD [address] [place] [address] PCP - General Internal Medicine 05/09/15 Ema Fang [address] [place] [address] [place] [address] 67037 Hematology/Oncology 02/01/23 Eveline Griffin MD [address] [place] [address] Radiation Oncology 03/22/23 Heriberto Disla MD [address] [place] [address] Hematology/Oncology 03/30/23 Dominga Osullivan, KEON [address] [place] [address] Specialty Special Needs Babysitter Hematology/Oncology 07/21/23 Try Out Person Relationship Specialty Start Date End Date Ilya Monroe MD [address] [place] [address] PCP - General Internal Medicine 05/09/15 Ema Fang [address] [place] [address] 45259 Hematology/Oncology 02/01/23 Eveline Griffin MD [address] [place] [address] Radiation Oncology 03/22/23 Heriberto Disla MD [address] [place] [address] Hematology/Oncology 03/30/23 Dominga Osullivan, KEON [address] [place] [address] Specialty Special Needs Babysitter Hematology/Oncology 07/21/23 Try Out Person Relationship Specialty Start Date End Date Ilya Monroe MD [address] [place] [address] PCP - General Internal Medicine 05/09/15 Ema Fang [facility] 1240.[address] [place] [address] Hematology/Oncology 02/01/23 Eveline Griffin MD [address] [place] [address] Radiation Oncology 03/22/23 Heriberto Disla MD [address] [place] [address] Hematology/Oncology 03/30/23 Dominga Osullivan, RN [address] [place] [address] Specialty Special Needs Babysitter Hematology/Oncology 07/21/23 Try Out Person Relationship Specialty Start Date End Date Ilya Monroe MD [address] [place] [address] PCP - General Internal Medicine 05/09/15 Ema Fang [address] [place] [address] 1240.12 [place] [address] Hematology/Oncology 02/01/23 Eveline Griffin MD [address] [place] [address] Radiation Oncology 03/22/23 Heriberto Disla MD [address] [place] [address] Hematology/Oncology 03/30/23 Dominga Osullivan, KEON [address] [place] [address] Specialty Special Needs Babysitter Hematology/Oncology 07/21/23 Try Out Person Relationship Specialty Start Date End Date Ilya Monroe MD [address] [place] [address] PCP - General Internal Medicine 05/09/15 Eveline Griffin MD [address] [place] [address] Radiation Oncology 03/22/23 Heriberto Disla MD [address] [place] [address] Hematology/Oncology 03/30/23 Dominga Osullivan RN [address] [place] [address] Specialty Special Needs Babysitter Hematology/Oncology 07/21/23 Concetta Fang MD [address] [place] [address] General Surgery 12/23/23 Try Out Person Relationship Specialty Start Date End Date Ilya Monroe MD [address] [place] [address] PCP - General Internal Medicine 05/09/15 Try Out Person Relationship Specialty Start Date End Date Ilya Monroe MD [address] [place] [address] PCP - General Internal Medicine 05/09/15 Eveline Griffin MD [address] [place] [address] Radiation Oncology 03/22/23 Heriberto Disla MD [address] [place] [address] Hematology/Oncology 03/30/23 Dominga Osullivan, KEON [address] [place] [address] Specialty Special Needs Babysitter Hematology/Oncology 07/21/23 Concetta Fang MD [address] [place] [address] General Surgery 12/23/23 Try Out Person Relationship Specialty Start Date End Date Ilya Monroe MD [address] [place] [address] PCP - General Internal Medicine 05/09/15 Try Out Person Relationship Specialty Start Date End Date Ilya Monroe MD [address] [place] [address] PCP - General Internal Medicine 05/09/15 Try Out Person Relationship Specialty Start Date End Date Ilya Monroe MD [address] [place] [address] PCP - General Internal Medicine 05/09/15 Eveline Griffin MD [address] [place] [address] Radiation Oncology 03/22/23 Heriberto Disla MD [address] [place] [address] Hematology/Oncology 03/30/23 Dominga Osullivan RN [address] [place] [address] Specialty Special Needs Babysitter Hematology/Oncology 07/21/23 Concetta Fang MD [address] [place] [address] General Surgery 12/23/23 Try Out Person Relationship Specialty Start Date End Date Ilya Monroe MD [address] [place] [address] PCP - General Internal Medicine 05/09/15 Eveline Griffin MD [address] [place] [address] Radiation Oncology 03/22/23 Heriberto Disla MD [address] [place] [address] Hematology/Oncology 03/30/23 Dominga Osullivan RN [address] [place] [address] Specialty Special Needs Babysitter Hematology/Oncology 07/21/23 Concetta Fang MD [address] [place] [address] General Surgery 12/23/23 Try Out Person Relationship Specialty Start Date End Date Ilya Monroe MD [address] [place] [address] PCP - General Internal Medicine 05/09/15 Eveline Griffin MD [address] [place] [address] Radiation Oncology 03/22/23 Heriberto Disla MD [address] [place] [address] Hematology/Oncology 03/30/23 Dominga Osullivan, KEON [address] [place] [address] Specialty Special Needs Babysitter Hematology/Oncology 07/21/23 Concetta Fang MD [address] [place] [address] General Surgery 12/23/23 Try Out Person Relationship Specialty Start Date End Date Ilya Monroe MD [address] [place] [address] PCP - General Internal Medicine 05/09/15 Eveline Griffin MD [address] [place] [address] Radiation Oncology 03/22/23 Heriberto Disla MD [address] [place] [address] Hematology/Oncology 03/30/23 Dominga Osullivan, KEON [address] [place] [address] Specialty Special Needs Babysitter Hematology/Oncology 07/21/23 Concetta Fang MD [address] [place] [address] General Surgery 12/23/23 Try Out Person Relationship Specialty Start Date End Date Ilya Monroe MD [address] [place] [address] PCP - General Internal Medicine 05/09/15 Eveline Griffin MD [address] [place] [address] Radiation Oncology 03/22/23 Heriberto Disla MD [address] [place] [address] Hematology/Oncology 03/30/23 Dominga Osullivan RN [address] [place] [address] Specialty Special Needs Babysitter Hematology/Oncology 07/21/23 Concetta Fang MD [address] [place] [address] General Surgery 12/23/23 Try Out Person Relationship Specialty Start Date End Date Ilya Monroe MD [address] [place] [address] PCP - General Internal Medicine 05/09/15 Eveline Griffin MD [address] [place] [address] Radiation Oncology 03/22/23 Heriberto Disla MD [address] [place] [address] Hematology/Oncology 03/30/23 Dominga Osullivan, KEON [address] [place] [address] Specialty Special Needs Babysitter Hematology/Oncology 07/21/23 Concetta Fang MD [address] [place] [address] General Surgery 12/23/23 Adriana Joya APRN.WINDER HELPER [address] [place] [address] Free Lance Model Internal Medicine 03/19/24 Camille Jefferson APRN.BURRING WHEEL OPERATOR [address] [facility] [place] [address] Free Lance Model Internal Medicine 03/19/24 Try Out Person Relationship Specialty Start Date End Date Ilya Monroe MD [address] [place] [address] PCP - General Internal Medicine 05/09/15 Eveline Griffin MD [address] [place] [address] Radiation Oncology 03/22/23 Heriberto Disla MD [address] [place] [address] Hematology/Oncology 03/30/23 Dominga Osullivan RN [address] [place] [address] Specialty Special Needs Babysitter Hematology/Oncology 07/21/23 Concetta Fang MD [address] [place] [address] General Surgery 12/23/23 Adriana Joya, HR RECRUITER.WINDER HELPER [address] [place] [address] [facility] Internal Medicine 03/19/24 Camille Jefferson APRN.BURRING WHEEL OPERATOR [address] [facility] [place] [address] [facility] Internal Medicine 03/19/24 Try Out Person Relationship Specialty Start Date End Date Ilya Monroe MD [address] [place] [address] PCP - General Internal Medicine 05/09/15 Eveline Griffin MD [address] [place] [address] Radiation Oncology 03/22/23 Heriberto Disla MD [address] [place] [address] Hematology/Oncology 03/30/23 Dominga Osullivan, KEON [address] [place] [address] Specialty Special Needs Babysitter Hematology/Oncology 07/21/23 Concetta Fang MD [address] [place] [address] General Surgery 12/23/23 Adriana Joya APRN.WINDER HELPER [address] [place] [address] [facility] Internal Medicine 03/19/24 Camille Jefferson HR RECRUITER.BURRING WHEEL OPERATOR [address] [facility] [place] [address] Free Lance Model Internal Medicine 03/19/24 Try Out Person Relationship Specialty Start Date End Date Ilya Monroe MD [address] [place] [address] PCP - General Internal Medicine 05/09/15 Eveline Griffin MD [address] [place] [address] Radiation Oncology 03/22/23 Heriberto Disla MD [address] [place] [address] Hematology/Oncology 03/30/23 Dominga Osullivan RN [address] [place] [address] Specialty Special Needs Babysitter Hematology/Oncology 07/21/23 Concetta Fang MD [address] [place] [address] General Surgery 12/23/23 Adrinaa Joya, HR RECRUITER.WINDER HELPER [address] [place] [address] Free Lance Model Internal Medicine 03/19/24 Camille Jefferson, HR RECRUITER.BURRING WHEEL OPERATOR [address] [facility] [place] [address] Free Lance Model Internal Medicine 03/19/24 Try Out Person Relationship Specialty Start Date End Date Ilya Monroe MD [address] [place] [address] PCP - General Internal Medicine 05/09/15 Eveline Griffin MD [address] [place] [address] Radiation Oncology 03/22/23 Heriberto Disla MD [address] [place] [address] Hematology/Oncology 03/30/23 Dominga Osullivan, KEON [address] [place] [address] Specialty Special Needs Babysitter Hematology/Oncology 07/21/23 Concetta Fang MD [address] [place] [address] General Surgery 12/23/23 Adriana Joya APRN.WINDER HELPER [address] [place] [address] Free Lance Model Internal Medicine 03/19/24 Camille Jefferson APRN.BURRING WHEEL OPERATOR [address] [facility] [place] [address] Free Lance Model Internal Medicine 03/19/24 Try Out Person Relationship Specialty Start Date End Date Ilya Monroe MD [address] [place] [address] PCP - General Internal Medicine 05/09/15 Eveline Griffin MD [address] [place] [address] Radiation Oncology 03/22/23 Heriberto Disla MD [address] [place] [address] Hematology/Oncology 03/30/23 Dominga Osullivan RN [address] [place] [address] Specialty Special Needs Babysitter Hematology/Oncology 07/21/23 Concetta Fang MD [address] [place] [address] General Surgery 12/23/23 Adriana Joya, HR RECRUITER.WINDER HELPER [address] [place] [address] Free Lance Model Internal Medicine 03/19/24 Camille Jefferson HR RECRUITER.BURRING WHEEL OPERATOR [address] [facility] [place] [address] [facility] Internal Medicine 03/19/24 Try Out Person Relationship Specialty Start Date End Date Ilya Monroe MD [address] [place] [address] PCP - General Internal Medicine 05/09/15 Eveline Griffin MD [address] [place] [address] Radiation Oncology 03/22/23 Heriberto Disla MD [address] [place] [address] Hematology/Oncology 03/30/23 Dominga Osullivan RN [address] [place] [address] Specialty Special Needs Babysitter Hematology/Oncology 07/21/23 Concetta Fang MD [address] [place] [address] General Surgery 12/23/23 Adriana Joya APRN.WINDER HELPER [address] [place] [address] Free Lance Model Internal Medicine 03/19/24 Camille Jefferson HR RECRUITER.BURRING WHEEL OPERATOR [address] [facility] [place] [address] [facility] Internal Medicine 03/19/24 Try Out Person Relationship Specialty Start Date End Date Ilya Monroe MD [address] [place] [address] PCP - General Internal Medicine 05/09/15 Eveline Griffin MD [address] [place] [address] Radiation Oncology 03/22/23 Heriberto Disla MD [address] [place] [address] Hematology/Oncology 03/30/23 Dominga Osullivan, KEON [address] [place] [address] Specialty Special Needs Babysitter Hematology/Oncology 07/21/23 Concetta Fang MD [address] [place] [address] General Surgery 12/23/23 Adriana Joya APRN.WINDER HELPER [address] [place] [address] Free Lance Model Internal Medicine 03/19/24 Camille Jefferson HR RECRUITER.BURRING WHEEL OPERATOR [address] [facility] [place] [address] Free Lance Model Internal Medicine 03/19/24 Try Out Person Relationship Specialty Start Date End Date Ilya Monroe MD [address] [place] [address] PCP - General Internal Medicine 05/09/15 Eveline Griffin MD [address] [place] [address] Radiation Oncology 03/22/23 Heriberto Disla MD [address] [place] [address] Hematology/Oncology 03/30/23 Dominga Osullivan, KEON [address] [place] [address] Specialty Special Needs Babysitter Hematology/Oncology 07/21/23 Concetta Fang MD [address] [place] [address] General Surgery 12/23/23 Adriana Joya APRN.WINDER HELPER [address] [place] [address] Free Lance Model Internal Medicine 03/19/24 Camille Jefferson HR RECRUITER.BURRING WHEEL OPERATOR [address] [facility] [place] [address] Free Lance Model Internal Medicine 03/19/24 Try Out Person Relationship Specialty Start Date End Date Ilya Monroe MD [address] [place] [address] PCP - General Internal Medicine 05/09/15 Eveline Griffin MD [address] [place] [address] Radiation Oncology 03/22/23 Heriberto Disla MD [address] [place] [address] Hematology/Oncology 03/30/23 Dominga Osullivan, KEON [address] [place] [address] Specialty Special Needs Babysitter Hematology/Oncology 07/21/23 Concetta Fang MD [address] [place] [address] General Surgery 12/23/23 Adriana Joya, HR RECRUITER.WINDER HELPER [address] [place] [address] Free Lance Model Internal Medicine 03/19/24 Camille Jefferson HR RECRUITER.BURRING WHEEL OPERATOR [address] [place] [address] Free Lance Model Internal Medicine 03/19/24 Try Out Person Relationship Specialty Start Date End Date Ilya Monroe MD [address] [place] [address] PCP - General Internal Medicine 05/09/15 Eveline Griffin MD [address] [place] [address] Radiation Oncology 03/22/23 Heriberto Disla MD [address] [place] [address] Hematology/Oncology 03/30/23 Dominga Osullivan RN [address] [place] [address] Specialty Special Needs Babysitter Hematology/Oncology 07/21/23 Concetta Fang MD [address] [place] [address] General Surgery 12/23/23 Adriana Joya APRN.WINDER HELPER [address] [place] [address] Free Lance Model Internal Medicine 03/19/24 Camille Jefferson HR RECRUITER.BURRING WHEEL OPERATOR [address] [place] [address] Free Lance Model Internal Medicine 03/19/24 Try Out Person Relationship Specialty Start Date End Date Ilya Monroe MD [address] [place] [address] PCP - General Internal Medicine 05/09/15 Eveline Griffin MD [address] [place] [address] Radiation Oncology 03/22/23 Heriberto Disla MD [address] [place] [address] Hematology/Oncology 03/30/23 Dominga Osullivan RN [address] [place] [address] Specialty Special Needs Babysitter Hematology/Oncology 07/21/23 Concetta Fang MD [address] [place] [address] General Surgery 12/23/23 Adriana Joya, HR RECRUITER.WINDER HELPER [address] [place] [address] Free Lance Model Internal Medicine 03/19/24 Camille Jefferson HR RECRUITER.BURRING WHEEL OPERATOR [address] [place] [address] Free Lance Model Internal Medicine 03/19/24 Try Out Person Relationship Specialty Start Date End Date Ilya Monroe MD [address] [place] [address] PCP - General Internal Medicine 05/09/15 Eveline Griffin MD [address] [place] [address] Radiation Oncology 03/22/23 Heriberto Disla MD [address] [place] [address] Hematology/Oncology 03/30/23 Dominga Osullivan, KEON [address] [place] [address] Specialty Special Needs Babysitter Hematology/Oncology 07/21/23 Concetta Fang MD [address] [place] [address] General Surgery 12/23/23 Adriana Joya, HR RECRUITER.WINDER HELPER [address] [place] [address] Free Lance Model Internal Medicine 03/19/24 Camille Jefferson APRN.BURRING WHEEL OPERATOR [address] [place] [address] Free Lance Model Internal Medicine 03/19/24 Try Out Person Relationship Specialty Start Date End Date Ilya Monroe MD [address] [place] [address] PCP - General Internal Medicine 05/09/15 Eveline Griffin MD [address] [place] [address] Radiation Oncology 03/22/23 Heriberto Disla MD [address] [place] [address] Hematology/Oncology 03/30/23 Dominga Osullivan, KEON [address] [place] [address] Specialty Special Needs Babysitter Hematology/Oncology 07/21/23 Concetta Fang MD [address] [place] [address] General Surgery 12/23/23 Adriana Joya APRN.WINDER HELPER [address] [place] [address] Free Lance Model Internal Medicine 03/19/24 Camille Jefferson APRN.BURRING WHEEL OPERATOR [address] [place] [address] Free Lance Model Internal Medicine 03/19/24 Try Out Person Relationship Specialty Start Date End Date Ilya Monroe MD [address] [place] [address] PCP - General Internal Medicine 05/09/15 Eveline Griffin MD [address] [place] [address] Radiation Oncology 03/22/23 Heriberto Disla MD [address] [place] [address] Hematology/Oncology 03/30/23 Dominga Osullivan, KEON [address] [place] [address] Specialty Special Needs Babysitter Hematology/Oncology 07/21/23 Concetta Fang MD [address] [place] [address] General Surgery 12/23/23 Adriana Joya, HR RECRUITER.WINDER HELPER [address] [place] [address] Free Lance Model Internal Medicine 03/19/24 Camille Jefferson HR RECRUITER.BURRING WHEEL OPERATOR [address] [place] [address] Free Lance Model Internal Medicine 03/19/24 Try Out Person Relationship Specialty Start Date End Date Ilya Monroe MD [address] [place] [address] PCP - General Internal Medicine 05/09/15 Eveline Griffin MD [address] [place] [address] Radiation Oncology 03/22/23 Heriberto Disla MD [address] [place] [address] Hematology/Oncology 03/30/23 Dominga Osullivan RN [address] [place] [address] Specialty Special Needs Babysitter Hematology/Oncology 07/21/23 Concetta Fang MD [address] [place] [address] General Surgery 12/23/23 Adriana Joya APRN.WINDER HELPER [address] [place] [address] Free Lance Model Internal Medicine 03/19/24 Camille Jefferson HR RECRUITER.BURRING WHEEL OPERATOR [address] [place] [address] Free Lance Model Internal Medicine 03/19/24 Try Out Person Relationship Specialty Start Date End Date Ilya Monroe MD [address] [place] [address] PCP - General Internal Medicine 05/09/15 Eveline Griffin MD [address] [place] [address] Radiation Oncology 03/22/23 Heriberto Disla MD [address] [place] [address] Hematology/Oncology 03/30/23 Dominga Osullivan RN [address] [place] [address] Specialty Special Needs Babysitter Hematology/Oncology 07/21/23 Concetta Fang MD [address] [place] [address] General Surgery 12/23/23 Adriana Joya APRN.WINDER HELPER [address] [place] [address] Free Lance Model Internal Medicine 03/19/24 Camille Jefferson APRN.BURRING WHEEL OPERATOR [address] [place] [address] Free Lance Model Internal Medicine 07/03/24 Try Out Person Relationship Specialty Start Date End Date Ilya Monroe MD [address] [place] [address] PCP - General Internal Medicine 05/09/15 Eveline Griffin MD [address] [place] [address] Radiation Oncology 03/22/23 Heriberto Disla MD [address] [place] [address] Hematology/Oncology 03/30/23 Dominga Osullivan, KEON [address] [place] [address] Specialty Special Needs Babysitter Hematology/Oncology 07/21/23 Concetta Fang MD [address] [place] [address] General Surgery 12/23/23 Adriana Joya, HR RECRUITER.WINDER HELPER [address] [place], [place] [address] Free Lance Model Internal Medicine 03/19/24 Camille Jefferson HR RECRUITER.BURRING WHEEL OPERATOR [address] [place] [address] Free Lance Model Internal Medicine 07/03/24 Team Status: Active Member Role Status Dates Dr. Ilya Monroe MD Primary Care Provider Active Team Status: Inactive Member Role Status Dates Dr. Ilya Monroe MD Primary Care Provider Active Start: March 23, 2024 End: March 23, 2024 Dr. Corona Agee DO Attending Provider Active Start : March 23, 2024 End: March 23, 2024 Dr. Corona Agee DO Emergency Provider Active Start : March 23, 2024 End: March 23, 2024 Team Status: Inactive Member Role Status Dates Dr. Ilya Monroe MD Primary Care Provider Active Start: June 18, 2024 End: June 18, 2024 Dr. Rashid Espinoza MD Attending Provider Active Start: June 18, 2024 End: June 18, 2024 Dr. Rashid Espionza MD Referring Provider Active Start: June 18, 2024 End: June 18, 2024 Try Out Person Relationship Specialty Start Date End Date Ilya Monroe MD [address] [place] [address] PCP - General Internal Medicine 05/09/15 Eveline Griffin MD [address] [place] [id number] Radiation Oncology 03/22/23 Heriberto Disla MD [address] [place] [address] Hematology/Oncology 03/30/23 Domniga Osullivan RN [address] [place] [address] Specialty Special Needs Babysitter Hematology/Oncology 07/21/23 Concetta Fang MD [address] [place] [address] General Surgery 12/23/23 Adriana Joya APRN.WINDER HELPER [address] [place] [address] Free Lance Model Internal Medicine 03/19/24 Camille Jefferson APRN.BURRING WHEEL OPERATOR [address] [place] [address] Free Lance Model Internal Medicine 07/03/24 Try Out Person Relationship Specialty Start Date End Date Ilya Monroe MD [address] [place] [address] PCP - General Internal Medicine 05/09/15 Eveline Griffin MD [address] [place] [address] Radiation Oncology 03/22/23 Heriberto Disla MD [address] [place] [address] Hematology/Oncology 03/30/23 Dominga Osullivan RN [address] [place] [address] Specialty Special Needs Babysitter Hematology/Oncology 07/21/23 Concetta Fang MD [address] [place] [address] General Surgery 12/23/23 Adriana Joya, RAY.WINDER HELPER [address] [place] [address] Free Lance Model Internal Medicine 03/19/24 Camille Jefferson APRN.BURRING WHEEL OPERATOR [address] [place] [address] [facility] Internal Medicine 03/19/24 06/29/24 Camille Jefferson APRN.BURRING WHEEL OPERATOR [address] [place] [address] [facility] Internal Medicine 07/03/24 Try Out Person Relationship Specialty Start Date End Date Ilya Monroe MD [address] [place] [address] PCP - General Internal Medicine 05/09/15 Eveline Griffin MD [address] [place] [address] Radiation Oncology 03/22/23 Heriberto Disla MD [address] [place] [address] Hematology/Oncology 03/30/23 Dominga Osullivan, KEON [address] [place] [address] Specialty Special Needs Babysitter Hematology/Oncology 07/21/23 Concetta Fang MD [address] [place] [address] General Surgery 12/23/23 Adriana Joya APRN.WINDER HELPER [address] [place] [address] Free Lance Model Internal Medicine 03/19/24 Camille Jefferson APRN.BURRING WHEEL OPERATOR [address] [place] [address] Free Lance Model Internal Medicine 07/03/24 Try Out Person Relationship Specialty Start Date End Date Ilya Monroe MD [address] [place] [address] PCP - General Internal Medicine 05/09/15 Eveline Griffin MD [address] [place] [address] Radiation Oncology 03/22/23 Heriberto Disla MD [address] [place] [address] Hematology/Oncology 03/30/23 Dominga Osullivan, KEON [address] [place] [address] Specialty Special Needs Babysitter Hematology/Oncology 07/21/23 Concetta Fang MD [address] [place] [address] General Surgery 12/23/23 Adriana Joya APRN.WINDER HELPER [address] [place] [address] Free Lance Model Internal Medicine 03/19/24 Camille Jefferson APRN.BURRING WHEEL OPERATOR [address] [place] [address] Free Lance Model Internal Medicine 07/03/24 Try Out Person Relationship Specialty Start Date End Date Ilya Monroe MD [address] [place] [address] PCP - General Internal Medicine 05/09/15 Eveline Griffin MD [address] [place] [address] Radiation Oncology 03/22/23 Heriberto Disla MD [address] [place] [address] Hematology/Oncology 03/30/23 Dominga Osullivan, KEON [address] [place] [address] Specialty Special Needs Babysitter Hematology/Oncology 07/21/23 Concetta Fang MD [address] [place] [address] General Surgery 12/23/23 Adriana Joya APRN.WINDER HELPER [address] [place] [address] Free Lance Model Internal Medicine 03/19/24 Camille Jefferson HR RECRUITER.BURRING WHEEL OPERATOR [address] [place] [address] Free Lance Model Internal Medicine 07/03/24 Try Out Person Relationship Specialty Start Date End Date Ilya Monroe MD [address] [place] [address] PCP - General Internal Medicine 05/09/15 Eveline Griffin MD [address] [place] [address] Radiation Oncology 03/22/23 Heriberto Disla MD [address] [place] [address] Hematology/Oncology 03/30/23 Dominga Osullivan RN [address] [place] [address] Specialty Special Needs Babysitter Hematology/Oncology 07/21/23 Concetta Fang MD [address] [place] [address] General Surgery 12/23/23 Adriana Joya APRN.WINDER HELPER [address] [place] [address] Free Lance Model Internal Medicine 03/19/24 Camille Jefferson APRN.BURRING WHEEL OPERATOR [address] [place] [address] Free Lance Model Internal Medicine 07/03/24 Try Out Person Relationship Specialty Start Date End Date Ilya Monroe MD [address] [place] [address] PCP - General Internal Medicine 05/09/15 Eveline Griffin MD [address] [place] [address] Radiation Oncology 03/22/23 Heriberto Disla MD [address] [place] [address] Hematology/Oncology 03/30/23 AbranDominga cates RN [address] [place] [address] Specialty Special Needs Babysitter Hematology/Oncology 07/21/23 Concetta Fang MD [address] [place] [address] General Surgery 12/23/23 Adriana Joya APRN.WINDER HELPER [address] [place] [address] Free Lance Model Internal Medicine 03/19/24 Camille Jefferson APRN.BURRING WHEEL OPERATOR [address] [place] [address] Free Lance Model Internal Medicine 07/03/24 Try Out Person Relationship Specialty Start Date End Date Ilya Monroe MD [address] [place] [address] PCP - General Internal Medicine 05/09/15 Eveline Griffin MD [address] [place] [address] Radiation Oncology 03/22/23 Heriberto Disla MD [address] [place] [address] Hematology/Oncology 03/30/23 Dominga Osullivan RN [address] [place] [address] Specialty Special Needs Babysitter Hematology/Oncology 07/21/23 Concetta Fang MD [address] [place] [address] General Surgery 12/23/23 Adriana Joya APRN.WINDER HELPER [address] [place] [address] Free Lance Model Internal Medicine 03/19/24 Camille Jefferson APRN.BURRING WHEEL OPERATOR [address] [place] [address] [facility] Internal Medicine 07/03/24 Try Out Person Relationship Specialty Start Date End Date Ilya Monroe MD [address] [place] [address] PCP - General Internal Medicine 05/09/15 Eveline Griffin MD [address] [place] [address] Radiation Oncology 03/22/23 Heriberto Disla MD [address] [place] [address] Hematology/Oncology 03/30/23 Dominga Osullivan, KEON [address] [place] [address] Specialty Special Needs Babysitter Hematology/Oncology 07/21/23 Concetta Fang MD [address] [place] [address] General Surgery 12/23/23 Adriana Joya APRN.WINDER HELPER [address] [place] [address] Free Lance Model Internal Medicine 03/19/24 Camille Jefferson APRN.BURRING WHEEL OPERATOR [address] [place] [address] Free Lance Model Internal Medicine 07/03/24 Try Out Person Relationship Specialty Start Date End Date Ilya Monroe MD [address] [place] [address] PCP - General Internal Medicine 05/09/15 Eveline Griffin MD [address] [place] [address] Radiation Oncology 03/22/23 Heriberto Disla MD [address] [place] [address] Hematology/Oncology 03/30/23 Dominga Osullivan, KEON [address] [place] [address] Specialty Special Needs Babysitter Hematology/Oncology 07/21/23 Concetta Fang MD [address] [place] [address] General Surgery 12/23/23 Adriana Joya APRN.WINDER HELPER [address] [place] [address] Free [employer] Model Internal Medicine 03/19/24 Camille Jefferson HR RECRUITER.BURRING WHEEL OPERATOR [address] [place] [address] Free Lance Model Internal Medicine 07/03/24 Try Out Person Relationship Specialty Start Date End Date Ilya Monroe MD [address] [place] [address] PCP - General Internal Medicine 05/09/15 Eveline Griffin MD [address] [place] [address] Radiation Oncology 03/22/23 Heriberto Disla MD [address] [place] [address] Hematology/Oncology 03/30/23 Dominga Osullivan, KEON [address] [place] [address] Specialty Special Needs Babysitter Hematology/Oncology 07/21/23 Concetta Fang MD [address] [place] [address] General Surgery 12/23/23 Adriana Joya APRN.WINDER HELPER [address] [place] [address] Free Lance Model Internal Medicine 03/19/24 Camille Jefferson APRN.BURRING WHEEL OPERATOR [address] [place] [address] [employer] Internal Medicine 07/03/24 Try Out Person Relationship Specialty Start Date End Date Ilya Monroe MD [address] [place] [address] PCP - General Internal Medicine 05/09/15 Eveline Griffin MD [address] [place] [address] Radiation Oncology 03/22/23 Heriberto Disla MD [address] [place] [address] Hematology/Oncology 03/30/23 Dominga Osullivan RN [address] [place] [address] Specialty Special Needs Babysitter Hematology/Oncology 07/21/23 Concetta Fang MD [address] [place] [address] General Surgery 12/23/23 Adriana Joya APRN.WINDER HELPER [address] [place] [address] [facility] Internal Medicine 03/19/24 Camille Jefferson APRN.BURRING WHEEL OPERATOR [address] [place] [address] [facility] Internal Medicine 03/19/24 06/29/24 Camille Jefferson APRN.BURRING WHEEL OPERATOR [address] [place] [address] [facility] Internal Medicine 07/03/24 Try Out Person Relationship Specialty Start Date End Date Ilya Monroe MD [address] [place] [address] PCP - General Internal Medicine 05/09/15 Eveline Griffin MD [address] [place] [address] Radiation Oncology 03/22/23 Heriberto Disla MD [address] [place] [address] Hematology/Oncology 03/30/23 Dominga Osullivan RN [address] [place] [address] Specialty Special Needs Babysitter Hematology/Oncology 07/21/23 Concetta Fang MD [address] [place] [address] General Surgery 12/23/23 Adriana Joya APRN.WINDER HELPER [address] [place] [address] Free Lance Model Internal Medicine 03/19/24 Camille Jefferson APRN.BURRING WHEEL OPERATOR [address] [place] [address] Free Lance Model Internal Medicine 07/03/24 Try Out Person Relationship Specialty Start Date End Date Ilya Monroe MD [address] [place] [address] PCP - General Internal Medicine 05/09/15 Eveline Griffin MD [address] [place] [address] Radiation Oncology 03/22/23 Heriberto Disla MD [address] [place] [address] Hematology/Oncology 03/30/23 Dominga Osullivan RN [address] [place] [address] Specialty Special Needs Babysitter Hematology/Oncology 07/21/23 Concetta Fang MD [address] [place] [address] General Surgery 12/23/23 Camille Jefferson HR RECRUITER.BURRING WHEEL OPERATOR [address] [place], [place] [address] Free [employer] Model Internal Medicine 07/03/24 Adriana Joya, HR RECRUITER.WINDER HELPER [address] [place], [place] [address] Free [employer] Model Internal Medicine 08/29/24 Team Status: Inactive Member Role Status Dates Dr. Ilya Monroe MD Primary Care Provider Active Start: August 09, 2024 End: August 09, 2024 Dr. Ilya Monroe MD Referring Provider Active Start: August 09, 2024 End: August 09, 2024 Jules Scott INTERNATIONAL LOGISTICS ANALYST, INTERNATIONAL LOGISTICS ANALYST-C Attending Provider Active Start: August 09, 2024 End: August 09, 2024 Team Status: Inactive Member Role Status Dates Dr. Ilya Monroe MD Primary Care Provider Active Start: September 09, 2024 End: September 09, 2024 Dr. Junito Gurrola DO Emergency Provider Active S tart: September 09, 2024 End: September 09, 2024 Try Out Person Relationship Specialty Start Date End Date Ilya Monroe MD [address] [place] [address] PCP - General Internal Medicine 05/09/15 Eveline Griffin MD [address] [place], [place] [address] Radiation Oncology 03/22/23 Heriberto Disla MD [address] [place], [place] [address] Hematology/Oncology 03/30/23 Dominga Osullivan, KEON [address] [place] [id number] Specialty Special Needs Babysitter Hematology/Oncology 07/21/23 Concetta Fang MD [address] [place] [address] General Surgery 12/23/23 Camille Jefferson APRN.BURRING WHEEL OPERATOR [address] [place] [address] Free Lance Model Internal Medicine 07/03/24 Adriana Joya APRN.WINDER HELPER [address] [place] [address] Free Lance Model Internal Medicine 08/29/24 Try Out Person Relationship Specialty Start Date End Date Ilya Monroe MD [address] [place] [address] PCP - General Internal Medicine 05/09/15 Eveline Griffin MD [address] [place] [address] Radiation Oncology 03/22/23 Heriberto Disla MD [address] [place] [address] Hematology/Oncology 03/30/23 Dominga Osullivan, KEON [address] [place] [address] Specialty Special Needs Babysitter Hematology/Oncology 07/21/23 Concetta Fang MD [address] [place] [address] General Surgery 12/23/23 Camille Jefferson APRN.BURRING WHEEL OPERATOR [address] [place] [address] Free Lance Model Internal Medicine 07/03/24 Adriana Joya APRN.WINDER HELPER [address] [place] [address] Free Lance Model Internal Medicine 08/29/24 Try Out Person Relationship Specialty Start Date End Date Ilya Monroe MD [address] [place] [address] PCP - General Internal Medicine 05/09/15 Eveline Griffin MD [address] [place] [address] Radiation Oncology 03/22/23 Heriberto Disla MD [address] [place] [address] Hematology/Oncology 03/30/23 Dominga Osullivan, KEON [address] [place] [address] Specialty Special Needs Babysitter Hematology/Oncology 07/21/23 Concetta Fang MD [address] [place] [address] General Surgery 12/23/23 Camille Jefferson, HR RECRUITER.BURRING WHEEL OPERATOR [address] [place] [address] Free Lance Model Internal Medicine 07/03/24 Adriana Joya, RAY.WINDER HELPER [address] [place] [address] Free Lance Model Internal Medicine 08/29/24 Try Out Person Relationship Specialty Start Date End Date Ilya Monroe MD [address] [place] [address] PCP - General Internal Medicine 05/09/15 Eveline Griffin MD [address] [place] [address] Radiation Oncology 03/22/23 Heriberto Disla MD [address] [place] [address] Hematology/Oncology 03/30/23 Dominga Osullivan, KEON [address] [place] [address] Specialty Special Needs Babysitter Hematology/Oncology 07/21/23 Concetta Fang MD [address] [place] [address] General Surgery 12/23/23 Camille Jefferson APRN.BURRING WHEEL OPERATOR [address] [place] [address] Free Lance Model Internal Medicine 07/03/24 Adriana Joya APRN.WINDER HELPER [address] [place] [address] Free Lance Model Internal Medicine 08/29/24 Try Out Person Relationship Specialty Start Date End Date Ilya Monroe MD [address] [place] [address] PCP - General Internal Medicine 05/09/15 Eveline Griffin MD [address] [place] [address] Radiation Oncology 03/22/23 Heriberto Disla MD [address] [place] [address] Hematology/Oncology 03/30/23 Dominga Osullivan RN [address] [place] [address] Specialty Special Needs Babysitter Hematology/Oncology 07/21/23 Concetta Fang MD [address] [place] [address] General Surgery 12/23/23 Camille Jefferson HR RECRUITER.BURRING WHEEL OPERATOR [address] [place] [address] Free Lance Model Internal Medicine 07/03/24 Adriana Joya APRN.WINDER HELPER [address] [place] [address] Free Lance Model Internal Medicine 08/29/24 Try Out Person Relationship Specialty Start Date End Date Ilya Monroe MD [address] [place] [address] PCP - General Internal Medicine 05/09/15 Eveline Griffin MD [address] [place] [address] Radiation Oncology 03/22/23 Heriberto Disla MD [address] [place] [address] Hematology/Oncology 03/30/23 Dominga Osullivan, KEON [address] [place] [address] Specialty Special Needs Babysitter Hematology/Oncology 07/21/23 Concetta Fang MD [address] [place] [address] General Surgery 12/23/23 Camille Jefferson APRN.BURRING WHEEL OPERATOR [address] [place] [address] Free Lance Model Internal Medicine 07/03/24 Adriana Joya APRN.WINDER HELPER [address] [place] [address] Free Lance Model Internal Medicine 08/29/24 Try Out Person Relationship Specialty Start Date End Date Ilya Monroe MD [address] [place] [address] PCP - General Internal Medicine 05/09/15 Eveline Griffin MD [address] [place] [address] Radiation Oncology 03/22/23 Heriberto Disla MD [address] [place] [address] Hematology/Oncology 03/30/23 Dominga Osullivan, KEON [address] [place] [address] Specialty Special Needs Babysitter Hematology/Oncology 07/21/23 Concetta Fang MD [address] [place] [address] General Surgery 12/23/23 Camille Jefferson APRN.BURRING WHEEL OPERATOR [address] [place] [address] Free Lance Model Internal Medicine 07/03/24 Adriana Joya APRN.WINDER HELPER [address] [place] [address] Free Lance Model Internal Medicine 08/29/24 Try Out Person Relationship Specialty Start Date End Date Ilya Monroe MD [address] [place] [address] PCP - General Internal Medicine 05/09/15 Eveline Griffin MD [address] [place] [address] Radiation Oncology 03/22/23 Heriberto Disla MD [address] [place] [address] Hematology/Oncology 03/30/23 Dominga Osullivan, KEON [address] [place] [address] Specialty Special Needs Babysitter Hematology/Oncology 07/21/23 Concetta Fang MD [address] [place] [address] General Surgery 12/23/23 Camille Jefferson APRN.BURRING WHEEL OPERATOR [address] [place] [address] Free Lance Model Internal Medicine 07/03/24 Adriana Joya APRN.WINDER HELPER [address] [place] [address] Free Lance Model Internal Medicine 08/29/24 Team Status: Active Member Role/Relationship Status Dates Dr. Ilya Monroe MD Primary Care Provider Active Team Status: Inactive Member Role/Relationship Status Dates Dr. Ilya Monroe MD Primary Care Provider Active Start: June 18, 2024 End: June 18, 2024 Dr. Rashid Espinoza MD Attending Provider Active Start: June 18, 2024 End: June 18, 2024 Dr. Rashid Espinoza MD Referring Provider Active Start: June 18, 2024 End: June 18, 2024 Team Status: Inactive Member Role/Relationship Status Dates Dr. Ilya Monroe MD Primary Care Provider Active Start: August 09, 2024 End: August 09, 2024 Dr. Ilya Monroe MD Referring Provider Active Start: August 09, 2024 End: August 09, 2024 Jules Scott INTERNATIONAL LOGISTICS ANALYST, INTERNATIONAL LOGISTICS ANALYST-C Attending Provider Active Start: August 09, 2024 End: August 09, 2024 Team Status: Inactive Member Role/Relationship Status Dates Dr. Ilya Monroe MD Primary Care Provider Active Start: September 09, 2024 End: September 09, 2024 Dr. Junito Gurrola DO Attending Provider Active S tart: September 09, 2024 End: September 09, 2024 Dr. Junito Gurrola DO Emergency Provider Active S tart: September 09, 2024 End: September 09, 2024 Team Status: Inactive Member Role/Relationship Status Dates Dr. Ilya Monroe MD Primary Care Provider Active Start: October 09, 2024 End: October 09, 2024 Dr. Addison Mckinney MD Emergency Provider Active S tart: October 09, 2024 End: October 09, 2024 Try Out Person Relationship Specialty Start Date End Date Ilya Monroe MD [address] [place], [place] [address] PCP - General Internal Medicine 05/09/15 Eveline Griffin MD [address] [place], [place] [address] Radiation Oncology 03/22/23 Heriberto Disla MD [address] [place] [address] Hematology/Oncology 03/30/23 Dominga Osullivan, KEON [address] [place] [address] Specialty Special Needs Babysitter Hematology/Oncology 07/21/23 Concetta Fang MD [address] [place] [address] General Surgery 12/23/23 Camille Jefferson APRN.BURRING WHEEL OPERATOR [address] [place] [address] Free Lance Model Internal Medicine 07/03/24 Adriana Joya APRN.WINDER HELPER [address] [place] [address] Free Lance Model Internal Medicine 08/29/24 Try Out Person Relationship Specialty Start Date End Date Ilya Monroe MD [address] [place] [address] PCP - General Internal Medicine 05/09/15 Eveline Griffin MD [address] [place] [address] Radiation Oncology 03/22/23 Heriberto Disla MD [address] [place] [address] Hematology/Oncology 03/30/23 Dominga Osullivan RN [address] [place] [address] Specialty Special Needs Babysitter Hematology/Oncology 07/21/23 Concetta Fang MD [address] [place] [address] General Surgery 12/23/23 Camille Jefferson APRN.BURRING WHEEL OPERATOR [address] [place] [address] Free Lance Model Internal Medicine 07/03/24 Adriana Joya APRN.WINDER HELPER [address] [place] [address] [facility] Internal Medicine 08/29/24 Try Out Person Relationship Specialty Start Date End Date Ilya Monroe MD [address] [place] [address] PCP - General Internal Medicine 05/09/15 Eveline Griffin MD [address] [place] [address] Radiation Oncology 03/22/23 Heriberto Disla MD [address] [place] [address] Hematology/Oncology 03/30/23 Dominga Osullivan, KEON [address] [place] [address] Specialty Special Needs Babysitter Hematology/Oncology 07/21/23 Concetta Fang MD [address] [place] [address] General Surgery 12/23/23 Adriana Joya APRN.WINDER HELPER [address] [place] [address] Free Lance Model Internal Medicine 03/19/24 08/28/24 Camille Jefferson APRN.BURRING WHEEL OPERATOR [address] [place] [address] Free Lance Model Internal Medicine 07/03/24 Adriana Joya APRN.WINDER HELPER [address] [place] [address] Free Lance Model Internal Medicine 08/29/24 Try Out Person Relationship Specialty Start Date End Date Ilya Monroe MD [address] [place] [address] PCP - General Internal Medicine 05/09/15 Eveline Griffin MD [address] [place] [address] Radiation Oncology 03/22/23 Heriberto Disla MD [address] [place] [address] Hematology/Oncology 03/30/23 Dominga Osullivan, KEON [address] [place] [address] Specialty Special Needs Babysitter Hematology/Oncology 07/21/23 Concetta Fang MD [address] [place] [address] General Surgery 12/23/23 Camille Jefferson APRN.BURRING WHEEL OPERATOR [address] [place] [address] Free Lance Model Internal Medicine 07/03/24 Adriana Joya, HR RECRUITER.WINDER HELPER [address] [place] [address] Free Lance Model Internal Medicine 08/29/24 Try Out Person Relationship Specialty Start Date End Date Ilya Monroe MD [address] [place] [address] PCP - General Internal Medicine 05/09/15 Eveline Griffin MD [address] [place] [address] Radiation Oncology 03/22/23 Heriberto Disla MD [address] [place] [address] Hematology/Oncology 03/30/23 Dominga Osullivan, KEON [address] [place] [address] Specialty Special Needs Babysitter Hematology/Oncology 07/21/23 Concetta Fang MD [address] [place] [address] General Surgery 12/23/23 Camille Jefferson, HR RECRUITER.BURRING WHEEL OPERATOR [address] [place] [address] Free Lance Model Internal Medicine 07/03/24 Adriana Joya, HR RECRUITER.WINDER HELPER [address] [place] [address] Free Lance Model Internal Medicine 08/29/24 Try Out Person Relationship Specialty Start Date End Date Ilya Monroe MD [address] [place] [address] PCP - General Internal Medicine 05/09/15 Eveline Griffin MD [address] [place] [address] Radiation Oncology 03/22/23 Heriberto Disla MD [address] [place] [address] Hematology/Oncology 03/30/23 Dominga Osullivan, KEON [address] [place] [address] Specialty Special Needs Babysitter Hematology/Oncology 07/21/23 Concetta Fang MD [address] [place] [address] General Surgery 12/23/23 Camille Jefferson APRN.BURRING WHEEL OPERATOR [address] [place] [address] Free Lance Model Internal Medicine 07/03/24 Adriana Joya APRN.WINDER HELPER [address] [place] [address] Free Lance Model Internal Medicine 08/29/24 Team Status: Inactive Member Role/Relationship Status Dates Dr. Ilya Monroe MD Primary Care Provider Active Start: August 09, 2024 End: August 09, 2024 Dr. Ilya Monroe MD Referring Provider Active Start: August 09, 2024 End: August 09, 2024 Jules Scott INTERNATIONAL LOGISTICS ANALYST, INTERNATIONAL LOGISTICS ANALYST-C Attending Provider Active Start: August 09, 2024 End: August 09, 2024 Team Status: Inactive Member Role/Relationship Status Dates Dr. Ilya Monroe MD Primary Care Provider Active Start: September 09, 2024 End: September 09, 2024 Dr. Junito Gurrola DO Attending Provider Active S tart: September 09, 2024 End: September 09, 2024 Dr. Junito Gurrola DO Emergency Provider Active S tart: September 09, 2024 End: September 09, 2024 Team Status: Inactive Member Role/Relationship Status Dates Dr. Ilya Monroe MD Primary Care Provider Active Start: October 09, 2024 End: October 09, 2024 Dr. Addison Mckinney MD Attending Provider Active S tart: October 09, 2024 End: October 09, 2024 Dr. Addison Mckinney MD Emergency Provider Active S tart: October 09, 2024 End: October 09, 2024 Team Status: Inactive Member Role/Relationship Status Dates Dr. Ilya Monroe MD Primary Care Provider Active Start: December 04, 2024 End: December 04, 2024 Dr. Ilya Monroe MD Referring Provider Active Start: December 04, 2024 End: December 04, 2024 Dr. Cayetano Heck MD Attending Provider Active S tart: December 04, 2024 End: December 04, 2024 Goals (unrecognized section and content) Goals may be documented in a n alternate sectionGoals may be documented in an alternate sectionGoals may be documented in an alternate section No data available for this sectionGoals may be documented in an alternate sectionGoals may be documented in an alternate sectionGoals may be documented in an alternate sectionGoals may be documented in an alternate sectionGoals may be documented in an alternate sectionGoals may be documented in an alternate sectionGoals may be documented in an alternate sectionGoals may be documented in an alternate sectionGoals may be documented in an alternate sectionGoals may be documented in an alternate sectionGoals may be documented in an alternate section FOR RECORDS PERTAINING TO PATIENTS WHO ARE [...] BE BASED ON THE PRIMARY CLINICAL RECORDS. [facility] provides no warranty or guarantee of the accuracy or completeness of information in this document.
[2025-04-02 05:56] LABS: Lipase 14 U/L (13-75)
[2025-04-02 05:57] LABS: Differential Indicated SCAN CRITERIA MET
[2025-04-02 05:58] LABS: Differential Comment SCANNED
[2025-04-02 06:05] LABS: Mucous, Urine 0 SEEN /hpf (<or=2+); Red Blood Cells-Urine 0 SEEN /hpf (0-5)
[2025-04-02 06:06] LABS: Color, Urine Yellow (Yellow); Glucose, Dipstick Normal (Normal); Ketone-Dipstick Negative (Negative); Leukocyte Esterase-Dipstick Negative /ul (Negative); Nitrite-Dipstick Negative (Negative); Occult Blood-Urine 10 /ul (Negative); Protein-Dipstick 30 mg/dl (Negative); Specific Gravity, Urine 1.010 (1.002-1.030); Urine Bilirubin Dipstick Negative (Negative)
[2025-04-02 06:20] LABS: Squamous Epithelial Cells - UA 0-5 SEEN /hpf (5-10)
[2025-04-02 06:20] LABS: AST(SGOT) 280 U/L (<=31); Alanine Aminotransfer ALT/SGPT 48 U/L (<=34); Albumin, Serum 3.7 g/dL (3.4-4.8); Alkaline Phosphatase 205 U/L (35-104); Anion Gap 13 (7-18); BUN 9 mg/dL (4-19); BUN/Creat Ratio 9.7 RATIO (10-20); Calcium,Total 9.8 mg/dL (7.6-11.0); Carbon Dioxide 27.3 mmol/L (20.0-29.0); Chloride 97 mmol/L (96-106); Estimated Creatinine Clearance 73.64 ml/min (50-250); Globulin 3.4 g/dL (2.2-4.2); Glucose 127 mg/dL (70-99); Potassium 3.9 mmol/L (3.5-5.1)
== END 2025-04-02 08:39 | disposition home or self-care (01) ==
PROVIDERS: Emergency Provider Emergency Medicine; PCP Internal Medicine; Visit Provider Emergency Medicine
DX: R10.10 Upper abdominal pain, unspecified (principal); D61.818 Other pancytopenia; C50.919 Malignant neoplasm of unspecified site of unspecified female breast; R11.2 Nausea with vomiting, unspecified; I25.10 Atherosclerotic heart disease of native coronary artery without angina pectoris; I10 Essential (primary) hypertension; K59.00 Constipation, unspecified; Z87.891 Personal history of nicotine dependence; K76.9 Liver disease, unspecified; E78.5 Hyperlipidemia, unspecified; K21.9 Gastro-esophageal reflux disease without esophagitis; J45.909 Unspecified asthma, uncomplicated; M89.8X8 Other specified disorders of bone, other site
CPT/HCPCS: 96361; 74177; 80053; 81001; 83690; 85025; 96374; 96375; 99284; Q9967; A4216; J2405